=== PATIENT | female | born 1980 | race Caucasian/White ===

== ENCOUNTER 2022-12-20 18:33 | Outpatient (REF) | payer BC, SELFPAY | END 2022-12-20 18:34 | disposition home or self-care (01) | LOC: LBN 18:33 | PROVIDERS: Visit Provider Nurse Practitioner Family | DX: J02.9 Acute pharyngitis, unspecified (principal) | CPT/HCPCS: 87070 ==

== ENCOUNTER 2023-04-15 15:03 | Outpatient (REF) | payer BC, SELFPAY ==
[2023-04-15 16:03] LABS: Anion Gap 11.1 mmol/L (3-11); BUN 15 mg/dL (7-18); CO2 27.9 mmol/L (21.0-32.0); CREATININE 1.3 mg/dL (0.55-1.02); Calcium 9.2 mg/dL (8.5-10.1); Chloride 105 mmol/L (98-107); Estimated GFR 52.65 (mL/min/1.73m2); FREE T4 0.18 ng/dL (0.76-1.46); Glucose 95 mg/dL (74-106); Potassium 4.3 mmol/L (3.5-5.1); Sodium 144 mmol/L (136-145); TSH 67.89 uIU/mL (0.36-3.74)
[2023-04-15 22:21] LABS: T3, Total 50 ng/dL (97-169)
== END 2023-04-15 15:04 | disposition home or self-care (01) ==
LOC: NCHCN 15:03
PROVIDERS: Visit Provider Family Medicine
DX: E03.2 Hypothyroidism due to medicaments and other exogenous substances (principal)
CPT/HCPCS: 80048; 84439; 84443; 84480

== ENCOUNTER 2023-05-18 11:56 | Outpatient (REF) | payer BC, SELFPAY ==
[2023-05-18 15:47] LABS: FREE T4 0.56 ng/dL (0.76-1.46); TSH 14.75 uIU/mL (0.36-3.74)
[2023-05-18 22:16] LABS: T3,Free 3.6 pg/mL (2.8-5.3)
== END 2023-05-18 11:57 | disposition home or self-care (01) ==
LOC: NCHCN 11:56
PROVIDERS: Visit Provider Family Medicine
DX: E03.2 Hypothyroidism due to medicaments and other exogenous substances (principal); E05.00 Thyrotoxicosis with diffuse goiter without thyrotoxic crisis or storm
CPT/HCPCS: 84439; 84443; 84481

== ENCOUNTER 2023-07-06 16:39 | Outpatient (REF) | payer BC, SELFPAY ==
[2023-07-06 22:06] LABS: FREE T4 0.67 ng/dL (0.76-1.46); TSH 4.74 uIU/mL (0.36-3.74)
[2023-07-07 18:14] LABS: T3,Free 3.5 pg/mL (2.8-5.3)
== END 2023-07-06 16:40 | disposition home or self-care (01) ==
LOC: NCHCN 16:39
PROVIDERS: Visit Provider Family Medicine
DX: E03.2 Hypothyroidism due to medicaments and other exogenous substances (principal)
CPT/HCPCS: 84439; 84443; 84481

== ENCOUNTER 2023-08-05 22:13 | Outpatient (REF) | payer BC, SELFPAY ==
[2023-08-05 21:29] LABS: FREE T4 0.95 ng/dL (0.76-1.46); TSH 1.25 uIU/mL (0.36-3.74)
== END 2023-08-05 22:14 | disposition home or self-care (01) ==
LOC: NCHCN 22:13
PROVIDERS: Visit Provider Family Medicine
DX: F90.0 Attention-deficit hyperactivity disorder, predominantly inattentive type (principal); E03.2 Hypothyroidism due to medicaments and other exogenous substances
CPT/HCPCS: 84439; 84443

== ENCOUNTER 2024-01-11 15:52 | Outpatient (REF) | payer BC, SELFPAY ==
[2024-01-11 21:31] LABS: TSH (W/Ref FT4) 0.28 uIU/mL (0.36-3.74)
[2024-01-11 22:02] LABS: FREE T4 0.77 ng/dL (0.76-1.46)
== END 2024-01-11 15:53 | disposition home or self-care (01) ==
LOC: NCHCN 15:52
PROVIDERS: Visit Provider Family Medicine
DX: E03.9 Hypothyroidism, unspecified (principal)
CPT/HCPCS: 84439; 84443

== ENCOUNTER 2024-02-16 16:25 | Outpatient (REF) | payer BC, SELFPAY ==
[2024-02-16 21:52] LABS: FREE T4 0.65 ng/dL (0.76-1.46); TSH 2.44 uIU/Ml (0.36-3.74)
[2024-02-17 18:35] LABS: T3, Total 117 ng/dL (97-169)
== END 2024-02-16 16:26 | disposition home or self-care (01) ==
LOC: NCHCN 16:25
PROVIDERS: Visit Provider Family Medicine
DX: E03.9 Hypothyroidism, unspecified (principal)
CPT/HCPCS: 84439; 84443; 84480

== ENCOUNTER 2024-05-24 15:23 | Outpatient (REF) | payer BC, SELFPAY ==
--- OUTSIDE RECORDS SUMMARY | 2024-05-24 15:27 | XMS_ITS | Encounter Summary ---
Author Organization [facility] Address [address] [place] [address] Care Team Providers Care Ripsaw Operator Name Role Phone Comfort Zelaya NP Primary Care Provider [phone] Encounter Details Date Type Department Care Team (Late st Contact Info) Description 07/07/2023 Lab Requisition [facility] Pathology & Laboratory Medicine - [address] [address] Outr Resulting Lab, Provider Social History Tobacco Use Types Packs/Day Years Used Date Smoking Tobacco: Never Smokeless Tobacco: Never Alcohol Use Standard Drinks/Week Comments No 0 (1 standard drink = 0.6 oz pur e alcohol) PHQ-2 Answer Date Recorded PHQ-2 SUBTOTAL 0 06/25/2020 Interpersonal Safety Answer Date Record ed Physically Hurt Never 06/25/2020 Verbally Threaten Never 06/25/2020 Sex and Gender Information Value Date Recorded Sex Assigned at Not on file Gender Identity Not on file Sexual Orientation Not on file documented as of this encounter Functional Status Functional Status Response Date of Assess ment Because of a physical, menta l, or emotional condition, does this person have difficulty doing errands alone such as visiting a doctor's office or shopping? No 07/31/2018 Cognitive Status Response Date of Assessm ent Because of a physical, menta l, or emotional condition, does this person have serious difficulty concentrating, remembering, or making decisions? No 07/31/2018 documented as of this encounter Plan of Treatment Not on file documented as of this encounter Procedures Procedure Name Priority Date/Time Associated Diagnosis Comments T3 FREE Routine 07/06/2023 15:25 EDT documented in this encounter Results * T3 FREE (07/06/2023 15:25 EDT) T3, Free 3.5 2.8 - 5.3 pg/mL 07/07/2023 18:10 EDT [facility] Blood VENOUS BLOOD / Unknown 07/06/2023 15:25 EDT 07/07/2023 17:36 EDT Provider Outr Resulting Lab CHEMISTRY & BLOOD GAS ORDERABLES [facility] [address] [place] [address] documented in this encounter Visit Diagnoses Not on filedocumented in this encounter Care Teams Ripsaw Operator Relationship Specialty Start Date End Date Comfort Zelaya NP [address] [place] [phone] PCP - General Family Medicine - Primary Care 03/08/22 documented as of this encounter
--- OUTSIDE RECORDS SUMMARY | 2024-05-24 15:27 | XMS_ITS | Encounter Summary ---
Author Organization [facility] Address [address] [place] [address] Care Team Providers Care Second Language Tutor Name Role Phone Leida Cerda PA-C Primary Care Provi melvin Encounter Details Date Type Department Care Team (Late st Contact Info) Description 10/24/[address] [id number] Leida Cerda PA-C 402 [facility] [address] [place] [address] Social History Tobacco Use Types Packs/Day Years Used Date Smoking Tobacco: Never Smokeless Tobacco: Never Alcohol Use Standard Drinks/Week Comments No 0 (1 standard drink = 0.6 oz pur e alcohol) Sex and Gender Information Value Date Recorded [...] Procedure Name Priority Date/Time Associated Diagnosis Comments LIPID PROFILE (INCLUDES CHOLESTEROL, TRIGLYCERIDES, HDL, LDL) Routine 10/19/2019 documented in this encounter Results * LIPID PROFILE (INCLUDES CHOLESTEROL, TRIGLYCERIDES, HDL, LDL) (10/19/2019) Cholesterol, External 196 <200 mg/dL POINT OF CARE [facility] Triglycerides, External 121 <150 mg/dL [facility] HDL, External 39 >50 mg/dL [facility] LDL, External 134 <100 mg/dL [facility] Chol/HDL Ratio, External 5.0 <5.0 [facility] Fasting?, External unknown [facility] Blood VENOUS BLOOD / Unknown 10/19/2019 eDnice Martinez MD CHEMISTRY & BLOOD GA S ORDERABLES POINT [facility] CARE [facility] documented in this encounter Visit Diagnoses Not on filedocumented in this encounter Care Teams Second Language Tutor Relationship Specialty Start Date End Date Leida Cerda PA-C PCP - General 03/16/19 03/07/22 documented as of this encounter
--- OUTSIDE RECORDS SUMMARY | 2024-05-24 15:27 | XMS_ITS | Encounter Summary ---
Author Organization [facility] Address [address] [place] [address] Care Team Providers Care Medical Records Specialist Name Role Phone Leida Cerda PA-C Primary Care Provi melvin Comfort Zelaya NP Primary Care Provider [phone] Reason for Visit * Reason Onset Date Comments Medication Reaction 04/14/2020 Abdominal Pain 04/14/2020 Diarrhea 04/14/2020 Encounter Details Date Type Department Care Team (Late st Contact Info) Description 04/14/[address] [address] Leida Cerda PA-C 402 [facility] [address] [place] [address] Medication Reaction; Abdominal Pain; Diarrhea Social History Tobacco Use Types Packs/Day Years [...] No 07/31/2018 documented as of this encounter Miscellaneous Notes * Telephone Encounter - Barbara Angeles RN - 04/15/2020 0920 EDT 04/15/20 9:20 TC to Doris, no answer. General voice message left to return call with call back number provided. BARBARA ANGELES RN 04/15/2020 9:20 * Telephone Encounter - Frances Christensen - 04/14/2020 1603 EDT Reason for Call: Medication Reaction; Abdominal Pain; and Diarrhea Summary/Symptoms: Patient called to say she was prescribed an antibiotic at an Urgent Care and is having side effects of stomach pain and diarrhea. Onset and Duration? Current Appointment Offered? no Frances Christensen 04/14/2020 16:04 documented in this encounter Plan of Treatment Not on file documented as of this encounter Visit Diagnoses Not on filedocumented in this encounter Care Teams Medical Records Specialist Relationship Specialty Start Date End Date Leida Cerda PA-C PCP - General 03/16/19 03/07/22 Comfort Zelaya NP [address] [place] [phone] PCP - General Family Medicine - Primary Care 03/08/22 documented as of this encounter
--- OUTSIDE RECORDS SUMMARY | 2024-05-24 15:27 | XMS_ITS | Encounter Summary ---
Author Organization [facility] Address [address] [place] [address] Care Team Providers Care Property Master Name Role Phone Leida Cerda PA-C Primary Care Provi melvin Reason for Visit * Reason Onset Date Comments Medications Refill 11/19/2019 Encounter Details Date Type Department Care Team (Late st Contact Info) Description 11/19/[address] [address] Lieda Cerda PA-C 402 [facility] [address] [place] [address] Medications Refill Social History Tobacco Use Types Packs/Day Years [...] No 07/31/2018 documented as of this encounter Ordered Prescriptions Prescription Sig Dispensed Refills Start Date End Da te Thyroid, Pork, 240 mg tabletIndications:Hypothyr oidism, iatrogenic Take 240 mg by mouth daily. 90 Tab 11/20/2019 02/08/2020 documented in this encounter Miscellaneous Notes * Telephone Encounter - Sheila Edmond RN - 11/20/2019 1438 EST TC to patient. Left message to return call. * Telephone Encounter - Leida Cerda PA-C - 11/20/2019 1258 EST Refill done but she is due for lab work. Lab ordered She can go to [facility] for [facility] * Telephone Encounter - Sheila Edmond RN - 11/20/2019 0845 EST Last refill: 08/07/18 Last OV note, 09/05/18: Recently adjusted [place] Thyroid and will re check TSH in another month ortwo I do not see that this was ever rechecked. To PCP to advise on refill, labs, OV * Telephone Encounter - Rima Urbina - 11/19/2019 1802 EST Medication(s) Requested: [place]lap Thyroid - per patient message Preferred Pharmacy: [facility] Is patient out of medication? Yes - per med refill line [facility] [place] Last Refill Date: 2013 Last Visit Date with Ordering Provider: 09/05/18 Next Non-Acute Visit Date Scheduled with Care Team: No. Rima Urbina 11/19/2019 18:02 documented in this encounter Plan of Treatment Not on file documented as of this encounter Results * (ABNORMAL) THYROID CASCADE (06/25/2020 9:58 EDT) TSH <0.02(L) 0.47 - 4.68 uIU/mL 06/25/2020 14:56 EDT [facility] Blood VENOUS BLOOD / Unknown Venipuncture / Unknown 06/25/2020 9:58 EDT 06/25/2020 9:58 EDT Narrative [facility] - 06/25/2020 14:56 EDT NOTE: TSH [place] is not recommended for patients in which pituitary or hypothalamic disorders are suspected. The results of this assay can be falsely lowered due to the consumption of Biotin. Leida Cerda PA-C CHEMISTRY & BLOOD GAS ORDERABLES [facility] [address] [place] [address] documented in this encounter Visit Diagnoses Diagnosis Hypothyroidism, iatrogenic- Primary Other iatrogenic hypothyroidism documented in this encounter Discontinued Medications Medication Sig Discontinue Reason Start Date End Da te Thyroid, Pork, 240 mg tablet Take 240 mg by mouth daily. Reorder 08/07/2018 11/20/2019 documented as of this encounter Care Teams Property Master Relationship Specialty Start Date End Date Leida Cerda PA-C PCP - General 03/16/19 03/07/22 documented as of this encounter
--- OUTSIDE RECORDS SUMMARY | 2024-05-24 15:27 | XMS_ITS | Clinical Summary ---
Author Organization [facility] Address [address] [place] [address] Care Team Providers Care Vice President Risk Management Name Role Phone Comfort Zelaya NP Primary Care Provider [phone] Allergies Active Allergy Reactions Criticality Noted Date Comments Adhesive 05/14/2014 Had bad reaction to Steri-Strips. Not sure of full allergy. Hymenoptera Allergenic Extract 05/21/2013 Massive swelling Penicillins Anaphylaxis High 11/12/2009 Propranolol Shortness Of Breath 08/14/2010 Sulfa (Sulfonamide Antibiotics) Hives 11/12/2009 Medications Medication Sig Dispensed Refills Start Date End Date Status ibuprofen (MOTRIN) 800 mg tablet Take 1 Tablet by mouth every 6 hours as needed for Pain. Active Thyroid, Pork, (ARMOUR THYROID) 180 mg tabletIndications:H ypothyroidism, iatrogenic Take 1 Tablet by mouth daily. 30 Tablet 1 08/27/2022 Active Additional Information Patient taking differently: 90 mgoral DAILY, Reported on 10/28/2023 EPINEPHrine (EPIPEN) 0.3 mg/0.3 mL injectionIndication s:Bee sting Inject 0.3 mL into the muscle once as needed for up to 1 dose (Bee Allergy). 2 Each 5 04/25/2023 Active methylphenidate HCl 36 mg CR tablet Take 54 mg by mouth daily. Daily Max: 54 mg Active norethindrone (MICRONOR) 0.35 mg tablet Take 1 Tablet by mouth daily. 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 Hypothyroidism 02/15/2003 11/14/2009 Asthma 09/23/1994 09/04/2014 Overview: Mild intermittent Immunizations Name Administration Dates Next Due Covid-19 mRNA Vaccine (MODER NA COVID-19) PF 0.5 ml IM (12 yrs+) 10/23/2021 Covid-19 mRNA Vaccine (PFIZE R COVID-19) PF 0.3 ml IM (12 yrs+) 01/06/2021 DT Vaccine <7YO IM 03/14/1995 Influenza (whole) 07/16/2005 Td (Adult) (TDVAX) 2 Lf Vaccine =>7yo IM 020 Tdap Vaccine =>7YO IM 02/13/2010 Surgical History Surgery Date Site/Laterality Comments SECTION ABLATION OF DYSRHYTHMIC FOCUS CARDIAC SURGERY CHOLECYSTECTOMY, LAPAROSCOPIC 04/19/2014 Medical History Medical History Date Comments Meningitis, unspecified 2003 Thyroid disease Hypertension Family history of kidney infection personal hx of kidney infections Asthma 09/23/1994 Mild intermitten t Biliary calculus 06/25/2013 Evidence of cho lelithiasis 06/2013. Cholelithiasis 04/09/2014 Family History Medical History Relation Comments Anesthesia Problems Father High Blood Pressure Father Diabetes Maternal Grandmother Early Maternal Grandmother Heart Disease Maternal Grandmother High Blood Pressure Maternal Grandmother High Cholesterol Maternal Grandmother Kidney Disease Mother stones Thyroid Disease Mother Early Paternal Grandfather Heart Disease Paternal Grandfather Asthma Sister Thyroid Disease Sister Relation Status Comments Father Maternal Grandmother Mother Alive Paternal Grandfather Sister Social History Tobacco Use Types Packs/Day Years Used Date Smoking Tobacco: Never Smokeless Tobacco: Never Tobacco Cessation:Counseling Given: Not Answered Alcohol Use Standard Drinks/Week Comments No 0 (1 standard drink = 0.6 oz pur e alcohol) [facility] Utilities Answer Date Recorded In the past 12 months has th e electric, gas, oil, or water company threatened to shut off services in your home? No 10/28/2023 AUDIT-C Answer Date Recorded Q1: How often do you have a drink containing alc ohol? Never 10/28/2023 Average Number of Drinks Not on file 024 Frequency of Binge Drinking Not on file 10/10 Overall Financial Resource Strain (CARDIA) Answe r Date Recorded How hard is it for you to pa y for the very basics like food, housing, medical care, and heating? Not hard at all 10/28/2023 PHQ-2 Answer Date Recorded PHQ-2 SUBTOTAL 0 06/25/2020 Hunger Vital Sign Answer Date Recorded Within the past 12 months, y ou worried that your food would run out before you got the money to buy more. Never true 10/28/19 24 Within the past 12 months, t he food you bought just didn't last and you didn't have money to get more. Never true 10/28/2023 PRAPARE - Transportation Answer Date Re corded In the past 12 months, has l ack of transportation kept you from medical appointments or from getting medications? No 10/10 In the past 12 months, has l ack of transportation kept you from meetings, work, or from getting things needed for daily living? No 10/28/2023 Housing Stability Vital Sign Answer Shaka e Recorded In the last 12 months, was t here a time when you were not able to pay the mortgage or rent on time? No 10/28/2023 Number of Places Lived in the Last Year Not on f ile 10/28/2023 In the last 12 months, was t here a time when you did not have a steady place to sleep or slept in a care home (including now)? No 10/28/2023 Interpersonal Safety Answer Date Record ed Physically Hurt Never 06/25/2020 Verbally Threaten Never 06/25/2020 Sex and Gender Information Value Date Recorded Sex Assigned at Not on file Gender Identity Not on file Sexual Orientation Not on file Obstetrics History Para Term AB IAB SAB Ectopic Multiple Livin g Live Births 1 1 Date Outcome GA Total Labor Labor/2nd/3rd Weight Sex Type Anes PTL [place] A1 A5 Name Clin Para Last Filed Vital Signs Vital Sign Reading Time Taken Comments Blood Pressure 140/90 10/28/2023 1338 EST Pulse 68 06/25/2020 0923 EDT Temperature 36.4 ??C (97.5 ??F) 06/25/2020 0923 EDT Respiratory Rate 16 06/25/2020 0923 EDT Oxygen Saturation 99% 02/17/2015 1922 EDT Inhaled Oxygen Concentration - - Weight 73.7 kg (162 lb 6.4 oz) 10/28/[address] Height 164.6 cm (5' 4.8) 10/28/2023 1338 EST Body Mass Index 27.19 10/28/2023 1338 EST Plan of Treatment Health Maintenance Due Date Last Done Comments Hepatitis C Screen 1981 HIV Screening 1997 Advance Directive 1999 Hepatitis B Vaccine (1 of 3 - 19+ 3-dose series) 02/06/2000 Depression Screening 06/25/2021 06/25/2020 COVID-19 Vaccine (3 - 2022-2 4 season) 2023 10/23/2021, 01/06/2021 Breast Cancer Screening 08/17/2024 08/17/2022 Lipid Profile Screening (Cholesterol) 10/19/2024 10/19/2019 Social Determinants Of Healt h (SDOH) 10/28/2024 10/28/2023, 06/25/2020 Preventive Care Visit 10/28/2025 10/28/2023 , 08/27/2022 Pap Smear (Cervical Cancer Screening) 10/28/2026 10/28/2023, 10/19/2019 Cervical Cancer Screening 10/28/2028 HPV/Cotest (Cervical Cancer Screening) 10/28/2028 10/28/2023, 10/28/2023 Tetanus (Adult) Immunization 06/25/2030, 02/13/2010, 03/14/1995 Pertussis (Adult) Immunization Completed 02/13/2010 HPV Vaccines Aged Out No longer eligi ble based on patient's age to complete this topic Procedures Procedure Name Priority Date/Time Associated Diagnosis Comments PAP TEST Routine 10/28/2023 14:05 EST Well woman exam with routine gynecological exam MA BREAST DIAGNOSTIC ARIANNA BILATERAL Routine 08/17/2022 14:17 EST Mass of left breast, unspecified quadrant LIPID PROFILE (INCLUDES CHOLESTEROL, TRIGLYCERIDES, HDL, LDL) Routine 10/19/2019 from Last 3 Months or Most Recently Relevant to Health Maintenance Results * PAP TEST (10/28/2023 14:05 EST) Specimens A. Cervix and/or Endocervix , ThinPrep Imaging System with Manual Evaluation 11/14/2023 19:11 [facility] Specimen Adequacy Satisfactory for Evaluation - transformation zone component present 11/14/2023 19:11 [facility] General Categorization Negative for intraepithelial lesion or malignancy 11/14/2023 19:11 [facility] Attestation . 11/14/2023 19:11 [facility] at 1911 Clinical History Screening 11/14/19 24 19:11 [facility] HPV The result for the Human Papillomavirus (HPV) Detection-High Risk Types is Negative. No E6 or E7 mRNA is detected from HPV types 16,18,31,33,35,39 ,45,51,52,56,58,5 9,66, and 68 by treatment supervisor mediated amplification.Misty ting was performed on specimen [id number] and was resulted on 11/14/2023 191 EST by LUAN, LAB INSTRUMENT RESULTS IN 11/14/2023 19:11 [facility] Performing Lab [facility] 11/14/2023 19:11 [facility] Scanned Images 11/14/2023 19:11 [facility] Pap Test CERVIX UTERI STRUCTURE / Unknown 10/28/2023 14:05 EST 10/31/2023 12:13 EST Denice Martinez MD PATHOLOGY ORDERABLES [facility] [address] [place] [address] * MA BREAST DIAGNOSTIC ARIANNA BILATERAL (08/17/2022 14:17 EST) Anatomical Region Laterality Modality Breast Bilateral Mammography 08/17/2022 15:4 0 EST Impressions 08/17/2022 15:40 EST RIGHT BREAST: BI-RADS 1: Negative IMPRESSION LEFT BREAST: BI-RADS 1: Negative RECOMMENDATIONS: 1. ??Routine screening mammogram. Further management of any persistent palpable finding should be based on the clinical level of concern. Negative imaging findings should not preclude biopsy of any clinically suspicious palpable finding. The procurement director discussed the radiologist's interpretation and follow up recommendations with the patient at the time of the examination. OVERALL BI-RADS ASSESSMENT: BI-RADS 1: Negative Narrative 08/17/2022 15:40 EST MA BREAST DIAGNOSTIC ARIANNA BILATERAL, US BREAST LIMITED LEFT ??08/17/2022 2:00 PM Signs and Symptoms/Comments: Patient reported Lump in left breast. Baseline Comparison: None. Technique: Routine mammography with tomosynthesis and CAD. Sonography was performed as described below. Findings: Tissue Density: There are scattered areas of fibroglandular density. RIGHT BREAST MAMMOGRAM: No significant masses, calcifications or other abnormalities are seen. LEFT BREAST MAMMOGRAM: No significant masses, calcifications or other abnormalities are seen. LEFT BREAST ULTRASOUND: Targeted evaluation was performed in the area of palpable abnormality described by the patient at 2:00, 8 cm from the nipple. In addition, the 12:00, 1:00 and 3:00 axes were scanned. No solid or cystic mass is seen. Denice Martinez MD IMG MAMMOGRAPHY ARONThi LAL * LIPID PROFILE (INCLUDES CHOLESTEROL, TRIGLYCERIDES, HDL, [...] [facility] Blood VENOUS BLOOD / Unknown 10/19/2019 Denice Martinez MD CHEMISTRY & BLOOD GA S ORDERABLES POINT OF CARE [facility] from Last 3 Months or Most Recently Relevant to Health Maintenance Advance Directives For more information, please contact: [phone] * Full Code (Latest Code Status on File) Date Activated Date Inactivated Comments 04/19/2014 9:24 04/19/2014 18:04 Care Teams Vice President Risk Management Relationship Specialty Start Date End Date Comfort Zelaya NP [address] [place] [phone] PCP - General Family Medicine - Primary Care 03/08/22
--- OUTSIDE RECORDS SUMMARY | 2024-05-24 15:27 | XMS_ITS | Encounter Summary ---
Author Organization [facility] Address [address] [place] [address] Care Team Providers Care Budget Controller Name Role Phone Comfort Zelaya NP Primary Care Provider [phone] Reason for Visit * Reason Onset Date Comments Appointment Related 07/28/2022 Encounter Details Date Type Department Care Team (Late st Contact Info) Description 07/28/2022 [facility] Breast Imaging Mammography - [address] [address] Mitzi Prado Appointment Related Social History Tobacco Use Types Packs/Day Years [...] encounter Miscellaneous Notes * Telephone Encounter - Mitzi Prado - 07/28/2022 1807 EDT Left patient a message to call back breast imaging at [phone] documented in this encounter Plan of Treatment Not on file documented as of this encounter Visit Diagnoses Not on filedocumented in this encounter Care Teams Budget Controller Relationship Specialty Start Date End Date Comfort Zelaya NP [address] [place] [phone] PCP - General Family Medicine - Primary Care 03/08/22 documented as of this encounter
--- OUTSIDE RECORDS SUMMARY | 2024-05-24 15:27 | XMS_ITS | Encounter Summary ---
Author Organization [facility] Address [address] [place] [address] Care Team Providers Care Special Forces Weapons Sergeant Name Role Phone Leida Man PA-C Primary Care Provi melvin Comfort Zelaya NP Primary Care Provider [phone] Reason for Visit * Reason Onset Date Comments Medications Refill 06/05/2020 Encounter Details Date Type Department Care Team (Late st Contact Info) Description 06/05/[address] [phone] Leida Man PA-C 402 [facility] [address] [place], [place] [phone] Medications Refill Social History Tobacco Use Types Packs/Day Years Used Date Smoking Tobacco: Never Smokeless Tobacco: Never Alcohol Use Standard Drinks/Week Comments No 0 (1 standard drink = 0.6 oz pur e alcohol) Interpersonal Safety Answer Date Record ed Physically Hurt Never 05/11/2020 Verbally Threaten Not on file 05/11/2020 Sex and Gender Information Value Date Recorded [...] iatrogenic Take 240 mg by mouth daily. NEEDS BLOOD WORK 30 Tab 06/05/2020 06/30/2020 documented in this encounter Miscellaneous Notes * Telephone Encounter - Denise Rae - 06/06/2020 1434 EDT Left message for patient to call back and schedule an appointment. Please see previous message. * Telephone Encounter - Alexandrea Dwyer RN - 06/05/2020 1449 EDT Requested Prescriptions Signed Prescriptions Disp Refills ??? Thyroid, Pork, 240 mg tablet 30 Tab 0 Sig: Take 240 mg by mouth daily. NEEDS BLOOD WORK Authorizing Provider: LEIDA MAN Ordering User: ALEXANDREA DWYER Pt is overdue for TSH blood draw, please help her arrange. * Telephone Encounter - Frances Christensen - 06/05/2020 1430 EDT Medication(s) Requested: Thyroid,Pork,240 mg tablet Preferred Pharmacy: [facility] Is patient out of medication?yes Last Refill Date: 02.08.20 Last Visit Date with Ordering Provider: 08.21.18 Next Non-Acute Visit Date Scheduled with Care Team: 06.25.20 Frances Christensen 06/05/2020 14:34 documented in this encounter Plan of Treatment Not on file documented as of this encounter Visit Diagnoses Diagnosis Hypothyroidism, iatrogenic Other iatrogenic hypothyroidism documented in this encounter Discontinued Medications Medication Sig Discontinue Reason Start Date End Da te Thyroid, Pork, 240 mg tabletIndications:Hypothy roidism, iatrogenic Take 240 mg by mouth daily. Reorder 02/08/2020 06/05/2020 documented as of this encounter Care Teams [employer] Weapons Sergeant Relationship Specialty Start Date End Date Leida Man PA-C PCP - General 03/16/19 03/07/22 Comfort Zelaya NP [address] [place] [phone] PCP - General Family Medicine - Primary Care 03/08/22 documented as of this encounter
--- OUTSIDE RECORDS SUMMARY | 2024-05-24 15:27 | XMS_ITS | Encounter Summary ---
Author Organization [facility] Address [address] [place] [address] Care Team Providers Care Entry Level Assistant Manager Name Role Phone Comfort Zelaya NP Primary Care Provider [phone] Reason for Visit * Reason Onset Date Comments Medication Management 04/26/2023 Encounter Details Date Type Department Care Team (Late st Contact Info) Description 04/26/2023 Telephone [facility] Women's Services - [address] [address] Denice Martinez MD [address] [place] [address], [address] [place] [address] Medication Management Social History Tobacco Use Types Packs/Day Years [...] Dispensed Refills Start Date End Da te norethindrone (MICRONOR) 0.35 mg tablet Take 1 Tablet by mouth daily. 84 Tablet 1 04/26/2023 10/18/2023 documented in this encounter Miscellaneous Notes * Telephone Encounter - Cristy Engle RN - 04/26/2023 2103 EDT TC to patient to notify, she verbalizes understanding and will call in a few months to schedule annual visit. * Telephone Encounter - Cristy Engle RN - 04/26/2023 9900 EDT Medication Refill Request Patient/Fax/Surescript Request Medication/Dose/Route/Frequency: norethondrone (MICRONOR) 0.35 mg, prefers 3 mo supply at a time, takes continuously Last office visit: 08/17/22 Pending visit: None. Patient is not yet due. If appointment needed-message left/appointment made: N/A Pharmacy confirmed: [id number] [facility] Amount filled/# of refills: 2 per MD orders, to last until patient is due for appointment. * Telephone Encounter - Eliza Mendoza - 04/26/2023 8431 EDT Reason for call as described by patient: Pt needs refill of medication. Somehow, pharmacy said theyasked for both epipen and control. She does not need an epipen as she just got one from her PCP, but does still need refill for OCPs. Medication(s) Requested: norethondrone (MICRONOR) 0.35 mg, prefers 3 mo supply at a time, takes continuously. Preferred Pharmacy: [id number] [facility] Is patient out of medication? Yes Is it ok to leave a detailed message? Yes Eliza Mendoza 04/26/2023 14:44 documented in this encounter Plan of Treatment Not on file documented as of this encounter Visit Diagnoses Not on filedocumented in this encounter Discontinued Medications Medication Sig Discontinue Reason Start Date End Da te norethindrone (MICRONOR) 0.35 mg tablet Take 1 Tablet by mouth daily. Reorder 08/27/2022 04/26/2023 documented as of this encounter Care Teams Entry Level Assistant Manager Relationship Specialty Start Date End Date Comfort Zelaya NP [address] [place] [phone] PCP - General Family Medicine - Primary Care 03/08/22 documented as of this encounter
--- OUTSIDE RECORDS SUMMARY | 2024-05-24 15:27 | XMS_ITS | Encounter Summary ---
Author Organization [facility] Address [address] [place] [address] Care Team Providers Care Master Pilot Name Role Phone Comfort Zelaya NP Primary Care Provider [phone] Reason for Visit * Reason Onset Date Comments Appointment Related 07/30/2022 Encounter Details Date Type Department Care Team (Late st Contact Info) Description 07/30/2022 [facility] Breast Imaging Mammography - [address] [address] Alisa Robb Appointment Related Social History Tobacco Use Types [...] encounter Miscellaneous Notes * Telephone Encounter - Alisa Robb - 07/30/2022 1351 EDT Left patient a message to call back breast imaging at [phone]. documented in this encounter Plan of Treatment Not on file documented as of this encounter Visit Diagnoses Not on filedocumented in this encounter Care Teams Master Pilot Relationship Specialty Start Date End Date Comfort Zelaya NP [address] [place] [phone] PCP - General Family Medicine - Primary Care 03/08/22 documented as of this encounter
--- OUTSIDE RECORDS SUMMARY | 2024-05-24 15:27 | XMS_ITS | Encounter Summary ---
Author Organization [facility] Address [address] [place] [address] Care Team Providers Care Visual Designer Name Role Phone Comfort Zelaya NP Primary Care Provider [phone] Encounter Details Date Type Department Care Team (Late st Contact Info) Description 04/15/2023 Lab Requisition [facility] Pathology & Laboratory Medicine - [address] [address] Outr Resulting Lab, Provider Social History Tobacco [...] Procedure Name Priority Date/Time Associated Diagnosis Comments T3, TOTAL Routine 04/15/2023 8:55 EDT documented in this encounter Results * (ABNORMAL) T3, TOTAL (04/15/2023 8:55 EDT) T3, Total 50(L) 97 - 169 ng/dL 04/15/2023 22:16 EDT [facility] Blood VENOUS BLOOD / Unknown 04/15/2023 8:55 EDT 04/15/2023 21:31 EDT Provider Outr Resulting Lab CHEMISTRY & BLOOD GAS ORDERABLES [facility] [address] [place] [address] documented in this encounter Visit Diagnoses Not on filedocumented in this encounter Care Teams Visual Designer Relationship Specialty Start Date End Date Comfort Zelaya NP [address] [place] [phone] PCP - General Family Medicine - Primary Care 03/08/22 documented as of this encounter
--- OUTSIDE RECORDS SUMMARY | 2024-05-24 15:27 | XMS_ITS | Encounter Summary ---
Author Organization [facility] Address [address] [place] [address] Care Team Providers Care Horseback Excavator Name Role Phone Leida Cerda PA-C Primary Care Provi melvin Reason for Visit * Reason Onset Date Comments Joint Swelling 04/11/2020 Encounter Details Date Type Department Care Team (Late st Contact Info) Description 04/11/[address] [address] Imani Owens MD [address] [place] [phone] Joint Swelling Social History Tobacco Use Types Packs/Day Years [...] encounter Miscellaneous Notes * Telephone Encounter - Imani Owens MD - 04/11/2020 4009 EDT Patient bit by a fly earlier today - entire hand is red and swollen, painful and hot. Took benadryland it has continued to only get worse. She marked the area of swelling and it has continued to track up her arm. Advised that she have this evaluated today - patient states there is Urgent Care nearby that she will go to. Imani Owens MD Family Medicine PGY-3 PG #[id number] documented in this encounter Plan of Treatment Not on file documented as of this encounter Visit Diagnoses Not on filedocumented in this encounter Care Teams Horseback Excavator Relationship Specialty Start Date End Date Leida Cerda PA-C PCP - General 03/16/19 03/07/22 documented as of this encounter
--- OUTSIDE RECORDS SUMMARY | 2024-05-24 15:27 | XMS_ITS | Encounter Summary ---
Author Organization [facility] Address [address] [place] [address] Care Team Providers Care Data Operations Manager Name Role Phone Shannan Vieyra MD Primary Care Provider Unavail able Reason for Visit * Reason Comments Follow-up here for follow up; due for labs Encounter Details Date Type Department Care Team (Late st Contact Info) Description 07/31/2018 9:30 EDT Office Visit [place] [phone] Leida Cedra PA-C [address] [phone] Hypothyroidism, iatrogenic (Primary Dx); Essential hypertension Discharge Disposition: Auto Discharge Social History Tobacco Use Types Packs/Day Years Used Date Smoking Tobacco: Never Smokeless Tobacco: Never Alcohol Use Standard Drinks/Week Comments No 0 (1 standard drink = 0.6 oz pur e alcohol) Sex and Gender Information Value Date Recorded Sex Assigned at Not on file Gender Identity Not on file Sexual Orientation Not on file documented as of this encounter Last Filed Vital Signs Vital Sign Reading Time Taken Comments Blood Pressure 130/98 07/31/2018 0946 EDT Pulse 64 07/31/2018 0946 EDT Temperature - - Respiratory Rate - - Oxygen Saturation - - Inhaled Oxygen Concentration - - Weight - - Height - - Body Mass Index - - documented in this encounter Functional Status Functional Status Response [...] No 07/31/2018 documented as of this encounter Discharge Diagnoses Diagnosis I10 Essential (primary) hypertension-I10[ICD-10-CM] 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 female. Chief Complaint Patient presents with ??? Follow-up here for follow up; due for labs HPI F/u on thyroid. Continues armour thyroid daily. Tolerates it much better than synthroid. Due for labs. No f/u lab done after last dose adjustment. Feels well. Hx of HTN but off meds for now. Doesn't want more medicine. Exercises regularly. Weight is stable. Eats clean. Non smoker. Is using cold medicines right now for a URI. Recalls having a scarred, smaller right kidney and was told it functions at about 30 %. Had a priorpyelo and isn't sure if the kidney change was a result of the infection or if the kidney change made her prone to the infection. No recent UTI. Patient Active Problem List Diagnosis ??? Contraceptive management ??? Cervical dysplasia ??? Blindness ??? Acute pyelonephritis ??? Graves' disease ??? Hypertensive disorder ??? Hypothyroidism, iatrogenic ??? Kidney scarring Past Medical History: Diagnosis Date ??? Asthma 09/23/1994 Mild intermittent ??? Biliary calculus 06/25/2013 Evidence of cholelithiasis 06/2013. ??? Cholelithiasis 04/09/2014 ??? Family history of kidney infection personal hx of kidney infections ??? Hypertension ??? Meningitis, unspecified 2003 ??? Thyroid disease Current Outpatient Prescriptions on File Prior to Visit Medication Sig Dispense Refill ??? ibuprofen (MOTRIN) 800 mg tablet Take 800 mg by mouth every 6 hours as needed for Pain ??? levonorgestrel-ethinyl estradiol (SEASONALE) 0.15-30 mg-mcg per tablet Take 1 Tab by mouth daily. ??? Thyroid, Pork, (ARMOUR THYROID) 180 mg tablet Take 180 mg by mouth daily. 90 Tab 0 No current facility-administered medications on file prior to visit. Allergies Allergen Reactions ??? Penicillins Anaphylaxis ??? Adhesive Had bad reaction to Steri-Strips. Not sure of full allergy. ??? Bee Sting [Hymenoptera Allergenic Extract] Massive swelling ??? Propranolol Shortness Of Breath ??? Sulfa (Sulfonamide Antibiotics) Hives Social Social History Substance Use Topics ??? Smoking status: Never Smoker ??? Smokeless tobacco: Never Used ??? Alcohol use No Review of Systems Respiratory: Negative for shortness of breath. Cardiovascular: Negative for chest pain, palpitations and leg swelling. Neurological: Negative for dizziness and headaches. - See HPI Objective: BP (!) 130/98 (BP Cuff Location: Right arm, Patient Position: Sitting, BP Cuff Sizes: Adult, regular) Pulse 64 Re check BP 150/100 Physical Exam Constitutional: She is oriented to person, place, and time. She appears well- developed and well-nourished. No distress. Cardiovascular: Normal rate, regular rhythm and normal heart sounds. Pulmonary/Chest: Effort normal and breath sounds normal. Musculoskeletal: She exhibits no edema. Neurological: She is alert and oriented to person, place, and time. Skin: Skin is warm and dry. Psychiatric: She has a normal mood and affect. Her behavior is normal. Nursing note and vitals reviewed. Discussed BP and need to protect her healthy kidney with good BP control She prefers to hold on medicine for now, declines nephrology referral Assessment: Encounter Diagnoses Name Primary? Essential hypertension ??? Hypothyroidism, iatrogenic Yes Plan: Doris was seen today for follow-up. Diagnoses and all orders for this visit: Hypothyroidism, iatrogenic - Thyroid Welcome Continue armour thyroid Essential hypertension - Basic Metabolic Panel Re check in 4 weeks May be elevated some due to decongestant use for URI, however on chart review, BP was elevated lastvisit (2 yr ago) Discussed healthy lifestyle Get some home/pharmacy readings if possible Patient Education Topic: as above Method: Verbal Taught to: Patient Barriers: None Outcomes: verbalized understanding Signature:DT * Renetta Davis - 07/31/2018 0930 EDT Patient presents to office for venipuncture for Thyroid Welcome, BMP with a diagnosis of E03.2, I10per Leida ARAUJO. I was supervised by Leida ARAUJO who was present and immediately available in the office suite. Renetta Davis 07/31/2018 10:24 documented in this encounter Plan of Treatment Not on file documented as of this encounter Procedures Procedure Name Priority Date/Time Associated Diagnosis Comments THYROID CASCADE Routine 07/31/2018 10:18 EDT Hypothyroidism, iatrogenic BASIC METABOLIC PANEL (BMP) Routine 07/31/2018 10:18 EDT Essential hypertension documented in this encounter Results * BASIC METABOLIC PANEL (BMP) (07/31/2018 10:18 EDT) Sodium 140 136 - 145 mEq/L 07/31/2018 14:23 [facility] Potassium 4.8 3.5 - 5.0 mEq/L 07/31/2018 14:23 [facility] Chloride 107 96 - 110 mEq/L 07/31/2018 14:23 [facility] CO2 25 22 - 32 mEq/L 07/31/2018 14:23 [facility] BUN 15 10 - 26 mg/dl 07/31/2018 14:23 [facility] Creatinine 0.87 0.52 - 1.04 mg/dl 07/31/2018 14:23 [facility] GFR, Calculated 85 >60 ml/min/1.7 3m2 07/31/2018 14:23 [facility] Comment: eGFR calculated using CKD-EPI equation for non Americans. Multiply eGFR by 1.16 for Americans. Calcium 9.6 8.5 - 10.5 mg/dl 07/31/2018 14:23 [facility] Calculated Calcium 9.3 8.5 - 10.5 mg/dl 07/31/2018 14:23 EDT [facility] Glucose, Serum 93 70 - 100 mg/dl 07/31/2018 14:23 EDT [facility] Fasting? Unknown 07/31/2018 14:23 EDT [facility] Blood specimen (specimen) BLOOD SPECIMEN / Unknown 07/31/2018 10:18 EDT 07/31/2018 14:05 EDT Leida Cerda PA-C CHEMISTRY & BLOOD GAS ORDERABLES Performing Organization Address [facility] Co de Phone Number [facility] [address] [place] [address] * (ABNORMAL) THYROID CASCADE (07/31/2018 10:18 EDT) TSH 5.07(H) 0.47 - 4.68 uIU/ml 07/31/2018 14:59 EDT [facility] Comment: TSH cascade is not recommended for patients in which pituitary or hypothalamic disorders are suspected. The results of this assay can be falsely lowered due to the consumption of Biotin. Blood specimen (specimen) BLOOD SPECIMEN / Unknown 07/31/2018 10:18 EDT 07/31/2018 14:05 EDT Leida Cerda PA-C CHEMISTRY & BLOOD GAS ORDERABLES Performing Organization Address [facility] Co de Phone Number [facility] [address] [place] [address] documented in this encounter Visit Diagnoses Diagnosis Hypothyroidism, iatrogenic- Primary Other iatrogenic hypothyroidism Essential hypertension Unspecified essential hypertension documented in this encounter Discontinued Medications Medication Sig Discontinue Reason Start Date End Da te azithromycin (ZITHROMAX) 250 mg tabletIndications:Acute suppurative otitis media of right ear without spontaneous rupture of tympanic membrane, recurrence not specified Take two tablets today, then 1 tablet daily until gone (x 4 days) 08/24/2016 07/31/2018 documented as of this encounter Care Teams Data Operations Manager Relationship Specialty Start Date End Date Shannan Vieyra MD PCP - General 04/08/09 03/15/19 documented as of this encounter
--- OUTSIDE RECORDS SUMMARY | 2024-05-24 15:27 | XMS_ITS | Encounter Summary ---
Author Organization [facility] Address [address] [place] [address] Care Team Providers Care Shirt Hemmer Name Role Phone Comfort Zelaya NP Primary Care Provider [phone] Encounter Details Date Type Department Care Team (Late st Contact Info) Description 04/25/2022 9:45 EDT Phlebotomy Only [facility] 2 Phlebotomy [address] [place], [place] [phone] Wire Weaver Cloth, Acc Phlebotomy Hypothyroidism, iatrogenic Social History Tobacco Use Types Packs/Day Years [...] Date/Time Associated Diagnosis Comments THYROID CASCADE Routine 04/25/2022 9:49 EDT Hypothyroidism, iatrogenic T3, TOTAL Today 04/25/2022 9:49 EDT Hypothyroidism, iatrogenic T4 FREE Today 04/25/2022 9:49 EDT Hypothyroidism, iatrogenic documented in this encounter Results * (ABNORMAL) T3, TOTAL (04/25/2022 9:49 EDT) T3, Total 218(H) 97 - 169 ng/dL 04/25/2022 12:[address] [facility] Blood VENOUS BLOOD / Unknown Venipuncture / Unknown 04/25/2022 9:49 EDT 04/25/2022 9:51 EDT Comfort Zelaya NP CHEMISTRY & BLOOD GA S ORDERABLES Performing Organization Address [facility] Co de Phone Number [facility] [address] [place] [address] * T4 FREE (04/25/2022 9:49 EDT) T4, Free 1.8 0.8 - 2.2 ng/dL 04/25/2022 11:[address] [facility] Blood VENOUS BLOOD / Unknown Venipuncture / Unknown 04/25/2022 9:49 EDT 04/25/2022 9:51 EDT Comfort Zelaya NP CHEMISTRY & BLOOD GA S ORDERABLES Performing Organization Address City/[facility] Co de Phone Number [facility] [address] [place] [address] * (ABNORMAL) THYROID CASCADE (04/25/2022 9:49 EDT) TSH <0.02(L) 0.47 - 4.68 mIU/L 04/25/2022 10:[address] [facility] Blood VENOUS BLOOD / Unknown Venipuncture / Unknown 04/25/2022 9:49 EDT 04/25/2022 9:51 EDT Narrative [facility] - 04/25/2022 10:46 EDT NOTE: The results of this assay can be falsely lowered due to the consumption of Biotin. Comfort Zelaya NP CHEMISTRY & BLOOD GA S ORDERABLES [facility] [address] [place] [address] documented in this encounter Visit Diagnoses Diagnosis Hypothyroidism, iatrogenic Other iatrogenic hypothyroidism documented in this encounter Care Teams Shirt Hemmer Relationship Specialty Start Date End Date Comfort Zelaya NP [address] [place] [phone] PCP - General Family Medicine - Primary Care 03/08/22 documented as of this encounter
--- OUTSIDE RECORDS SUMMARY | 2024-05-24 15:27 | XMS_ITS | Encounter Summary ---
Author Organization [facility] Address [address] [place] [address] Care Team Providers Care Airport Utility Worker Name Role Phone Leida Cerda PA-C Primary Care Provi melvin Reason for Visit * Reason Onset Date Comments Medications Refill 02/08/2020 Encounter Details Date Type Department Care Team (Late st Contact Info) Description 02/08/[address] [phone] Leida Cerda PA-C 402 [facility] [address] [place] [address] Medications Refill Social History Tobacco [...] 240 mg by mouth daily. 90 Tab 02/08/2020 06/05/2020 documented in this encounter Miscellaneous Notes * Telephone Encounter - Leida Cerda PA-C - 02/08/2020 1559 EDT Will refill med for now Plan to get TSH in 2-3 mo when things calm down with the pandemic * Telephone Encounter - Veronica Han RN - 02/08/2020 1447 EDT Medication(s) Requested: Thyroid, pork Preferred Pharmacy: [facility] Is patient out of medication? Unknown Last Refill Date: 11/20/19 Last Visit Date with Ordering Provider: 09/05/18 Next Non-Acute Visit Date Scheduled with Care Team: Please Schedule an Appointment. VERONICA HAN RN 02/08/2020 14:47 * Telephone Encounter - Veronica Han RN - 02/08/2020 1446 EDTFrom: Doris Kerr Sent: 02/08/2020 14:40 EDT Subject: Medication Renewal Request Doris Kerr would like a refill of the following medications: Thyroid, Pork, 240 mg tablet [Leida Cerda PA-C] Patient Comment: I know I am due for labs, but I do not feel comfortable going in for them during the current situation Preferred pharmacy: [id number] - [facility], [place] - [address] [facility] documented in this encounter Plan of Treatment Not on file documented as of this encounter Visit Diagnoses Diagnosis Hypothyroidism, iatrogenic- Primary Other iatrogenic hypothyroidism documented in this encounter Discontinued Medications Medication Sig Discontinue Reason Start Date End Da te Thyroid, Pork, 240 mg tabletIndications:Hypothy roidism, iatrogenic Take 240 mg by mouth daily. Reorder 11/20/2019 02/08/2020 documented as of this encounter Care Teams Airport Utility Worker Relationship Specialty Start Date End Date Leida Cerda PA-C PCP - General 03/16/19 03/07/22 documented as of this encounter
--- OUTSIDE RECORDS SUMMARY | 2024-05-24 15:27 | XMS_ITS | Encounter Summary ---
Author Organization [facility] Address [address] [place] [address] Care Team Providers Care Newspaper Vendor Name Role Phone Comfort Zelaya NP Primary Care Provider [phone] Encounter Details Date Type Department Care Team (Late st Contact Info) Description 02/17/2024 Lab Requisition [facility] Medicine - [address] [address] Outr Resulting Lab, Provider Social History Tobacco Use Types Packs/Day Years Used Date Smoking Tobacco: Never Smokeless Tobacco: Never Alcohol Use Standard Drinks/Week Comments No 0 (1 standard drink = 0.6 oz pur e alcohol) [facility] Utilities Answer Date Recorded In the past 12 months has e electric, gas, oil, or water company [...] place to sleep or slept in a senior care (including now)? No 10/28/2023 Interpersonal Safety Answer [...] Date/Time Associated Diagnosis Comments T3, TOTAL Routine 02/16/2024 16:00 EDT documented in this encounter Results * T3, TOTAL (02/16/2024 16:00 EDT) T3, Total 117 97 - 169 ng/dL 02/17/2024 18:[address] [facility] Blood VENOUS BLOOD / Unknown 02/16/2024 16:00 EDT 02/17/2024 17:42 EDT Provider Outr Resulting Lab CHEMISTRY & BLOOD GAS ORDERABLES [facility] [address] [place] [address] documented in this encounter Visit Diagnoses Not on filedocumented in this encounter Care Teams Newspaper Vendor Relationship Specialty Start Date End Date Comfort Zelaya NP [address] [place] [phone] PCP - General Family Medicine - Primary Care 03/08/22 documented as of this encounter
--- OUTSIDE RECORDS SUMMARY | 2024-05-24 15:27 | XMS_ITS | Encounter Summary ---
Author Organization [facility] Address [address] [place] [address] Care Team Providers Care Delphi Developer Name Role Phone Comfort Zelaya NP Primary Care Provider [phone] Reason for Visit * Reason Comments Well Woman Exam Encounter Details Date Type Department Care Team (Late st Contact Info) Description 08/27/2022 15:[address] [facility] - [address] [address] Denice Martinez MD [address] [place] [address], [address] [place] [address] History of Graves' disease (Primary Dx); Hypothyroidism, iatrogenic Social History Tobacco Use Types [...] Sign Reading Time Taken Comments Blood Pressure 135/92 08/27/2022 1552 EST Pulse - - Temperature - - Respiratory Rate - - Oxygen Saturation - - Inhaled Oxygen Concentration - - Weight 81.2 kg (179 lb) 08/27/2022 1519 EST Height 161.3 cm (5' 3.5) 08/27/2022 1519 EST Body Mass Index 31.21 08/27/2022 1519 EST documented in this encounter Functional Status Functional [...] Start Date End Da te Thyroid, Pork, (ARMOUR THYROID) 180 mg tabletIndications:Hypothy roidism, iatrogenic Take 1 Tablet by mouth daily. 30 Tablet 1 08/27/2022 norethindrone (MICRONOR) 0.35 mg tablet Take 1 Tablet by mouth daily. 84 Tablet 1 08/27/2022 04/26/2023 documented in this encounter Progress Notes * Denice Martinez MD - 08/27/2022 1530 EST CC: Annual exam HPI: 42 y.o. woman presents for routine annual exam. Patient reports out of thyroid medication, Tio is on maternity leave. No LMP recorded. (Menstrual status: Amenorhea). Single Using OCP, minipill for contraception. ROS: ROS Denies bowel or bladder sx. No CP/SOB/leg pain. No abdominal pain, N/V/D/C. No hair loss, or heat/cold intolerance. No musculoskeletal pain. No mood changes. No breast pain or tenderness. Health Maintenance: Reports balanced diet, taking vitamins. Performs regular self-breast exams. Exercise: Yes Caffeine: 1 serving Seat belts: Always Colonoscopy: NA Mammogram: UTD Cholesterol: UTD Immunizations: UTD Past Medical History: Diagnosis Date ??? Asthma 09/23/1994 Mild intermittent ??? Biliary calculus 06/25/2013 Evidence of cholelithiasis 06/2013. ??? Cholelithiasis 04/09/2014 ??? Family history of kidney infection personal hx of kidney infections ??? Hypertension ??? Meningitis, unspecified 2003 ??? Thyroid disease Past Surgical History: Procedure Laterality Date ??? ABLATION OF DYSRHYTHMIC FOCUS ??? CARDIAC SURGERY ??? SECTION ??? CHOLECYSTECTOMY, LAPAROSCOPIC 04/19/2014 Current Outpatient Medications Medication ??? EPINEPHrine (EPIPEN) 0.3 mg/0.3 mL injection ??? ibuprofen (MOTRIN) 800 mg tablet ??? norethindrone (MICRONOR) 0.35 mg tablet ??? Thyroid, Pork, (ARMOUR THYROID) 180 mg tablet No current facility-administered medications for this visit. Allergies Allergen Reactions ??? Penicillins Anaphylaxis ??? Adhesive Had bad reaction to Steri-Strips. Not sure of full allergy. ??? Bee Sting [Hymenoptera Allergenic Extract] Massive swelling ??? Propranolol Shortness Of Breath ??? Sulfa (Sulfonamide Antibiotics) Hives POBHx: PGynHx: Menses: see HPI Contraception: see HPI STDs: NA Pap: 2020 Social History Socioeconomic History ??? Marital status: Single Spouse name: Not on file ??? Number of children: Not on file ??? Years of education: Not on file ??? Highest education level: Not on file Occupational History ??? Not on file Tobacco Use ??? Smoking status: Never ??? Smokeless tobacco: Never Substance and Sexual Activity ??? Alcohol use: No ??? Drug use: No ??? Sexual activity: Not on file Other Topics Concern ??? Not on file Social History Narrative ??? Not on file Social Determinants of Health Financial Resource Strain: Not on file Food Insecurity: Not on file Transportation Needs: Not on file Physical Activity: Not on file Stress: Not on file Social Connections: Not on file Housing Stability: Not on file Family History Problem Relation Age of Onset ??? Kidney Disease Mother stones ??? Thyroid Disease Mother ??? Thyroid Disease Sister ??? Asthma Sister ??? Anesthesia Problems Father ??? High Blood Pressure Father ??? Diabetes Maternal Grandmother ??? Early Maternal Grandmother ??? Heart Disease Maternal Grandmother ??? High Cholesterol Maternal Grandmother ??? High Blood Pressure Maternal Grandmother ??? Early Paternal Grandfather ??? Heart Disease Paternal Grandfather PE: BP (!) 148/104 (BP Cuff Location: Right arm, BP Patient Position: Sitting, BP Cuff Sizes: Adult, regular) Ht 161.3 cm (63.5) Wt 81.2 kg (179 lb) BMI 31.21 kg/m?? GEN: NAD, pleasant HEENT: No cervical lymphadenopathy. No palpable thyromegaly. CV: RRR, no murmurs PULM: CTAB throughout, no wheezes. ABD: +BS, soft, NT, ND. No masses EXT: NT, No edema, normal ROM. NEURO: AAO x3, normal mood and affect. Allergy And Immunology Specialist: BREAST: No palpable masses or tenderness. No visible lesions. PELVIC: Normal appearing external genitalia without notable discharge or lesions. Speculum exam reveals normal appearing cervix without lesions or discharge. No bleeding. Bimanual exam reveals anteverted non-tender uterus, no cervical motion tenderness, no adnexal tenderness or masses. No urethral a bnormalities, tenderness or masses noted A/P: Annual Thyroid med refilled, TFT's today. Pap not due Continue minipill Denice Martinez MD 08/27/2022 15:39 documented in this encounter Plan of Treatment Not on file documented as of this encounter Procedures Procedure Name Priority Date/Time Associated Diagnosis Comments PAP TEST Routine 10/19/2019 0:00 EST documented in this encounter Results * (ABNORMAL) TSH (08/27/2022 16:07 EST) TSH 58.60(H) 0.47 - 4.68 mIU/L 08/27/2022 18:08 EST [facility] Blood VENOUS BLOOD / Unknown Venipuncture / Unknown 08/27/2022 16:07 EST 08/27/2022 16:38 EST Narrative [facility] - 08/27/2022 18:08 EST The results of this assay can be falsely lowered due to the consumption of Biotin. Denice Martinez MD CHEMISTRY & BLOOD GA S ORDERABLES [facility] [address] [place] [address] * PAP TEST (10/19/2019 0:00 EST) Papanicolaou smear specimen (specimen) CERVIX UTERI STRUCTURE / Unknown Denice Martinez MD PATHOLOGY ORDERABLES [facility] documented in this encounter Visit Diagnoses Diagnosis History of Graves' disease- Primary Personal history of other endocrine, metabolic, and immunity disorders Hypothyroidism, iatrogenic Other iatrogenic hypothyroidism documented in this encounter Discontinued Medications Medication Sig Discontinue Reason Start Date End Da te Thyroid, Pork, (ARMOUR THYROID) 180 mg tabletIndications:Hypoth yroidism, iatrogenic Take 1 Tablet by mouth daily. Reorder 03/26/2022 08/27/2022 norethindrone (MICRONOR) 0.35 mg tablet Take 1 Tablet by mouth daily. Reorder 05/20/2022 08/27/2022 documented as of this encounter Care Teams Delphi Developer Relationship Specialty Start Date End Date Comfort Zelaya NP [address] [place] [phone] PCP - General Family Medicine - Primary Care 03/08/22 documented as of this encounter
--- OUTSIDE RECORDS SUMMARY | 2024-05-24 15:27 | XMS_ITS | Encounter Summary ---
Author Organization [facility] Address [address] [place] [address] Care Team Providers Care Reserve Operator Name Role Phone Shannan Vieyra MD Primary Care Provider Unavail Leida Jackson PA-C Primary Care Provi melvin Comfort Zelaya NP Primary Care Provider [phone] Reason for Visit * Reason Onset Date Comments Medications Refill 07/22/2018 Encounter Details Date Type Department Care Team (Late st Contact Info) Description 07/22/2018 Refill [facility] Family Medicine [address] [phone] Leida Man PA-C [address] [facility] [address] [place], [place] [phone] Medications Refill Social History Tobacco Use Types Packs/Day Years Used Date Smoking Tobacco: Never Smokeless Tobacco: Never Alcohol Use Standard Drinks/Week Comments No 0 (1 standard drink = 0.6 oz pur e alcohol) Sex and Gender Information Value Date Recorded Sex Assigned at Not on file Gender Identity Not on file Sexual Orientation Not on file documented as of this encounter Ordered Prescriptions Prescription Sig Dispensed Refills Start Date End Da te Thyroid, Pork, (ARMOUR THYROID) 180 mg tabletIndications:Hypothyr oidism, iatrogenic Take 180 mg by mouth daily. 90 Tab 07/24/2018 08/07/2018 documented in this encounter Miscellaneous Notes * Telephone Encounter - Alisha Nino RN - 07/24/2018 0753 EDT Requested Prescriptions Signed Prescriptions Disp Refills ??? Thyroid, Pork, (ARMOUR THYROID) 180 mg tablet 90 Tab 0 Sig: Take 180 mg by mouth daily. Authorizing Provider: LEIDA MAN Ordering User: ALISHA NINO RN 07/24/2018 7:56 documented in this encounter Plan of Treatment Not on file documented as of this encounter Visit Diagnoses Diagnosis Hypothyroidism, iatrogenic Other iatrogenic hypothyroidism documented in this encounter Discontinued Medications Medication Sig Discontinue Reason Start Date End Da te Thyroid, Pork, 180 mg tabletIndications:Hypothy roidism, iatrogenic Take 180 mg by mouth daily. Reorder 12/23/2017 07/22/2018 documented as of this encounter Care Teams Reserve Operator Relationship Specialty Start Date End Date Shannan Vieyra MD PCP - General 04/08/09 03/15/19 Leida Man PA-C PCP - General 03/16/19 03/07/22 Comfort Zelaya NP [address] [place] [phone] PCP - General Family Medicine - Primary Care 03/08/22 documented as of this encounter
--- OUTSIDE RECORDS SUMMARY | 2024-05-24 15:27 | XMS_ITS | Encounter Summary ---
Author Organization [facility] Address [address] [place] [address] Care Team Providers Care Nuclear Radiologist Name Role Phone Leida Cerda PA-C Primary Care Provi melvin Reason for Referral * Radiology Services (Routine) - Specialty Report Received Specialty Diagnoses / Procedures Referred By Contac t Referred To Contact Diagnoses Injury of left wrist, initial encounter Procedures XR WRIST LEFT 3 OR MORE VIEWS Leida Cerda PA-C [address] [address] Referral ID Status Reason Start Date Expiration Date V isits Requested Visits Authorized [id number] Specialty Report Received 04/09/2021 1 1 Reason for Visit * Radiology Services (Routine) - Specialty Report Received Specialty Diagnoses / Procedures Referred By Contac t Referred To Contact Diagnoses Injury of left wrist, initial encounter Procedures XR WRIST LEFT 3 OR MORE VIEWS Leida Cerda PA-C [address] [address] Referral ID Status Reason Start Date Expiration Date V isits Requested Visits Authorized [id number] Specialty Report Received 04/09/2021 1 1 Encounter Details Date Type Department Care Team (Latest Contact Info) Description 04/10/2021 15:58 EDT - 04/10/2021 23:59 EDT Hospital Encounter [facility] [address] [place] [address] Injury of left wrist, initial encounter Discharge Disposition: Home or Self Care Social History Tobacco Use Types Packs/Day Years [...] No 07/31/2018 documented as of this encounter Medications at Time of Discharge Medication Sig Dispensed Refills Start Date End Date ibuprofen (MOTRIN) 800 mg tablet Take 1 Tablet by mouth every 6 hours as needed for Pain. EPINEPHrine (EPIPEN) 0.3 mg/0.3 mL injectionIndications:Bee sting Inject 0.3 mL into the muscle once as needed for up to 1 dose (Bee Allergy). 2 Syringe 5 04/15/2020 04/25/2023 Thyroid, Pork, 180 mg tabletIndications:Hypoth yroidism, iatrogenic Take 180 mg by mouth daily. 90 Tab 3 06/30/2020 08/10/2021 documented as of this encounter Discharge Disposition Disposition Code Departure Means Destination Home or Self Care documented in this encounter Plan of Treatment Not on file documented as of this encounter Procedures Procedure Name Priority Date/Time Associated Diagnosis Comments XR WRIST LEFT 3 OR MORE VIEWS Routine 04/10/2021 16:16 EDT Injury of left wrist, initial encounter documented in this encounter Results * XR WRIST LEFT 3 OR MORE VIEWS (04/10/2021 16:16 EDT) Anatomical Region Laterality Modality Upper Extremities Left Computed Radio graphy 04/10/2021 16:2 9 EDT Impressions 04/10/2021 16:29 EDT No acute radiographic abnormality. I have personally reviewed the images and the above interpretation and agree with the findings. Narrative 04/10/2021 16:29 EDT XR WRIST LEFT 3 OR MORE VIEWS ??04/10/2021 4:00 PM SIGNS AND SYMPTOMS/COMMENTS: FOOSH injury, pain radial wrist/snuff box area COMPARISON: None available. TECHNIQUE: PA, oblique, and lateral views of the left wrist were obtained. FINDINGS: No fracture or malalignment. There are mild degenerative changes in the first CMC joint and radiocarpal joint. Mineralization is normal. Soft tissues are radiographically unremarkable. Procedure Note Darius Lopes MD - 04/10/2021 XR WRIST LEFT 3 OR MORE VIEWS 04/10/2021 4:00 PM SIGNS AND SYMPTOMS/COMMENTS: FOOSH injury, pain radial wrist/snuff boxarea COMPARISON: None available. TECHNIQUE: PA, oblique, and lateral views of the left wrist were obtained. FINDINGS: No fracture or malalignment. There are mild degenerative changes in thefirst CMC joint and radiocarpal joint. Mineralization is normal. Softtissues are radiographically unremarkable. IMPRESSION No acute radiographic abnormality. I have personally reviewed the images and the above interpretation andagree with the findings. Leida Cerda PA-C IM DIAGNOS TIC IMAGING ORDERABLES documented in this encounter Visit Diagnoses Diagnosis Injury of left wrist, initial encounter documented in this encounter Care Teams Nuclear Radiologist Relationship Specialty Start Date End Date Leida Cerda PA-C PCP - General 03/16/19 03/07/22 documented as of this encounter
--- OUTSIDE RECORDS SUMMARY | 2024-05-24 15:27 | XMS_ITS | Encounter Summary ---
Author Organization [facility] Address [address] [place] [address] Care Team Providers Care Gymnastic Teacher Name Role Phone Shannan Vieyra MD Primary Care Provider Unavail able Reason for Visit * Reason Comments Follow-up BP follow up; Flu Vaccine declinse flu vaccine Encounter Details Date Type Department Care Team (Late st Contact Info) Description 09/05/2018 9:30 EST Office Visit [facility] Medicine [place] [phone] Leida Cerda PA-C [address] [facility] [address] [place], [place] [phone] Elevated blood pressure reading (Primary Dx); Bee sting; Hypothyroidism, iatrogenic Social History Tobacco Use Types [...] Sign Reading Time Taken Comments Blood Pressure 134/88 09/05/2018 0940 EST Pulse 80 09/05/2018 0940 EST Temperature 37.5 ??C (99.5 ??F) 09/05/2018 0940 EST Respiratory Rate - - Oxygen Saturation - - Inhaled Oxygen Concentration - - Weight 75.2 kg (165 lb 12.8 oz) 09/05/2018 0940 EST Height - - Body Mass Index 28.46 05/14/2014 1431 EDT documented in this encounter Functional Status Functional [...] Dispensed Refills Start Date End Da te EPINEPHrine (EPIPEN) 0.3 mg/0.3 mL injectionIndications:Bee sting Inject 0.3 mL into the muscle once as needed for up to 1 dose (allergic reaction). 2 Syringe 6 09/05/2018 04/14/2020 documented in this encounter Progress Notes * Leida Cerda PA - 09/05/2018 7233 EST Subjective: Patient ID: Doris Kerr is an 38 y.o. female. Chief Complaint Patient presents with ??? Follow-up BP follow up; ??? Flu Vaccine declinse flu vaccine HPI BP f/u as it was high at last visit. Had it checked at the audio specialist office since then and it was ok. Feels well, no chest pain, racing, palpitations, SOB. Eats clean with no added salt. Recently adjusted Elliott Thyroid and will re check TSH in another month or two Needs refill of epipen for bee sting allergy Patient Active Problem List Diagnosis ??? Contraceptive [...] unspecified 2003 ??? Thyroid disease Current Outpatient Medications on File Prior to Visit Medication Sig Dispense Refill ??? ibuprofen (MOTRIN) 800 mg tablet Take 800 mg by mouth every 6 hours as needed for Pain ??? levonorgestrel-ethinyl estradiol (SEASONALE) 0.15-30 mg-mcg per tablet Take 1 Tab by mouth daily. ??? Thyroid, Pork, 240 mg tablet Take 240 mg by mouth daily. 90 Tab 4 No current facility-administered medications on file prior to visit. Allergies Allergen Reactions ??? Penicillins Anaphylaxis ??? Adhesive Had bad reaction to Steri-Strips. Not sure of full allergy. ??? Bee Sting [Hymenoptera Allergenic Extract] Massive swelling ??? Propranolol Shortness Of Breath ??? Sulfa (Sulfonamide Antibiotics) Hives Social Social History Tobacco Use ??? Smoking status: Never Smoker ??? Smokeless tobacco: Never Used Substance Use Topics ??? Alcohol use: No ??? Drug use: No ROS - See HPI Objective: BP 134/88 (BP Cuff Location: Right arm, Patient Position: Sitting, BP Cuff Sizes: Adult, large) Pulse 80 Temp 37.5 ??C (99.5 ??F) (Tympanic) Wt 75.2 kg (165 lb 12.8 oz) BMI 28.46 kg/m?? Physical Exam Constitutional: She appears well-developed and well-nourished. No distress. Neck: No thyromegaly present. Cardiovascular: Normal rate, regular rhythm and normal heart sounds. Pulmonary/Chest: Effort normal and breath sounds normal. Neurological: She is alert. Psychiatric: She has a normal mood and affect. Her behavior is normal. Nursing note and vitals reviewed. Assessment: Encounter Diagnoses Name Primary? Bee sting ??? Elevated blood pressure reading Yes ??? Hypothyroidism, iatrogenic Plan: Doris was seen today for follow-up and flu vaccine. Diagnoses and all orders for this visit: Elevated blood pressure reading Monitor on occasion at the pharmacy and f/u if elevated Continue healthy eating Bee sting - EPINEPHrine (EPIPEN) 0.3 mg/0.3 mL injection; Inject 0.3 mL into the muscle once as needed for upto 1 dose (allergic reaction). Hypothyroidism, iatrogenic Re check TSH 2 mo Patient Education Topic: as above Method: Verbal Taught to: Patient Barriers: None Outcomes: verbalized understanding Signature:DT documented in this encounter Plan of Treatment Not on file documented as of this encounter Visit Diagnoses Diagnosis Elevated blood pressure reading- Primary Elevated blood pressure reading without diagnosis of hypertension Bee sting Toxic effect of venom Hypothyroidism, iatrogenic Other iatrogenic hypothyroidism documented in this encounter Discontinued Medications Medication Sig Discontinue Reason Start Date End Da te EPINEPHrine (EPIPEN) 0.3 mg/0.3 mL injectionIndications:Bee sting, undetermined intent, sequela Inject 0.3 mL into the muscle once as needed for up to 1 dose (allergic reaction). 08/24/2016 08/24/2016 documented as of this encounter Care Teams Gymnastic Teacher Relationship Specialty Start Date End Date Shannan Vieyra MD PCP - General 04/08/09 03/15/19 documented as of this encounter
--- OUTSIDE RECORDS SUMMARY | 2024-05-24 15:27 | XMS_ITS | Encounter Summary ---
Author Organization [facility] Address [address] [place] [address] Care Team Providers Care Corporate Traffic Manager Name Role Phone Leida Creda PA-C Primary Care Provi melvin Reason for Visit * Reason Comments Hypothyroidism Encounter Details Date Type Department Care Team (Late st Contact Info) Description 06/25/2020 9:00 EDT Office Visit [address] [phone] Leida Cerda PA-C 402 [facility] [address] [place] [address] Hypothyroidism, iatrogenic (Primary Dx); Need for Td vaccine; Elevated blood pressure reading Social History Tobacco Use Types Packs/Day Years [...] Sign Reading Time Taken Comments Blood Pressure 132/90 06/25/2020 0923 EDT Pulse 68 06/25/2020 0923 EDT Temperature 36.4 ??C (97.5 ??F) 06/25/2020 0923 EDT Respiratory Rate 16 06/25/2020922 EDT Oxygen Saturation - - Inhaled Oxygen Concentration - - Weight 71.7 kg (158 lb) 06/25/2020922 EDT Height 162.6 cm (5' 4.02) 06/25/2020922 EDT Body Mass Index 27.11 06/25/2020922 EDT documented in this encounter Functional Status [...] No 07/31/2018 documented as of this encounter Patient Instructions * Patient Instructions* Leida Cerda PA-C - 06/25/2020 9:00 EDT BP should be under 140/90 documented in this encounter Progress Notes * Leida Cerda PA-C - 06/25/2020 0900 EDT Subjective: Patient ID: Doris Kerr is an 40 y.o. female. Chief Complaint Patient presents with ??? 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 Contraceptive [...] to Visit Medication Sig Dispense Refill ??? EPINEPHrine (EPIPEN) 0.3 mg/0.3 mL injection Inject 0.3 mL into the muscle once as needed for up to 1 dose (Bee Allergy). 2 Syringe 5 ??? ibuprofen (MOTRIN) 800 mg tablet Take 800 mg by mouth every 6 hours as needed for Pain ??? Thyroid, Pork, 240 mg tablet Take 240 mg by mouth daily. NEEDS BLOOD WORK 30 Tab 0 No current facility-administered medications on [...] No ROS - See HPI Objective: BP 132/90 (BP Cuff Location: Right arm, BP Patient Position: Sitting, BP Cuff Sizes: Adult, regular) Pulse 68 Temp 36.4 ??C (97.5 ??F) (Skin) Resp 16 Ht 162.6 cm (64.02) Wt 71.7 kg (158 lb) LMP 04/09/2020 (Approximate) BMI 27.11 kg/m?? 130/84 on recheck Physical Exam Vitals signs and nursing note reviewed. Constitutional: General: She is not in acute distress. Appearance: She is well-developed and well-nourished. Cardiovascular: Rate and Rhythm: Normal rate and regular rhythm. Heart sounds: Normal heart sounds. Pulmonary: Effort: Pulmonary effort is normal. Musculoskeletal: General: No edema. Neurological: Mental Status: She is alert. Psychiatric: Mood and Affect: Mood and affect normal. Behavior: Behavior normal. Assessment: Encounter Diagnoses Name Primary? Need for Td vaccine ??? Hypothyroidism, iatrogenic Yes ??? Elevated blood pressure reading Plan: Doris was seen today for hypothyroidism. Diagnoses and all orders for this visit: Need for Td vaccine - TD (ADULT) 2 LF VACCINE =>7YO IM Hypothyroidism, iatrogenic - THYROID CASCADE Elevated blood pressure reading - BASIC METABOLIC PANEL (BMP) Have school nurse check BP a few times in the next mo and message me with numbers Patient Education Topic: as above Method: Verbal Taught to: Patient Barriers: None Outcomes: verbalized understanding Signature:DT * Sherrie Hernandez - 06/25/2020 0900 EDT Venipuncture performed per order [place] in the right arm without incident 1sst * Mauri Barnard LPN - 06/25/2020 0900 EDT Venipuncture performed per order VAN Roblero in the left antecubital unsuccessful without incident. Administered Td to right deltoid IM per order VAN Roblero. I was supervised by VAN Roblero who was present and immediately available in the office suite. MAURI BARNARD LPN 06/25/2020 10:27 documented in this encounter Plan of Treatment Not on file documented as of this encounter Procedures Procedure Name Priority Date/Time Associated Diagnosis Comments THYROID CASCADE Routine 06/25/2020 9:58 EDT Hypothyroidism, iatrogenic T3, TOTAL Today 06/25/2020 9:58 EDT Hypothyroidism, iatrogenic T4 FREE Today 06/25/2020 9:58 EDT Hypothyroidism, iatrogenic BASIC METABOLIC PANEL (BMP) Routine 06/25/2020 9:58 EDT Elevated blood pressure reading documented in this encounter Results * (ABNORMAL) T3, TOTAL (06/25/2020 9:58 EDT) T3, Total 290(H) 97 - 169 ng/dL 06/25/2020 16:37 EDT [facility] Blood VENOUS BLOOD / Unknown Venipuncture / Unknown 06/25/2020 9:58 EDT 06/25/2020 9:58 EDT Leida Cerda PA-C CHEMISTRY & BLOOD GAS ORDERABLES Performing Organization Address City/[facility]/ZIP Co de Phone Number [facility] [address] [place] [address] * T4 FREE (06/25/2020 9:58 EDT) T4, Free 2.0 0.8 - 2.2 ng/dL 06/25/2020 15:40 EDT [facility] Blood VENOUS BLOOD / Unknown Venipuncture / Unknown 06/25/2020 9:58 EDT 06/25/2020 9:58 EDT Leida Cerda PA-C CHEMISTRY & BLOOD GAS ORDERABLES Performing Organization Address [facility] Co de Phone Number [facility] [address] [place] [address] * BASIC METABOLIC PANEL (BMP) (06/25/2020 9:58 EDT) Sodium 141 136 - 145 mEq/L 06/25/2020 14:23 [facility] Potassium 4.8 3.5 - 5.0 mEq/L 06/25/2020 14:23 [facility] Chloride 105 96 - 110 mEq/L 06/25/2020 14:23 [facility] CO2 Total 23 22 - 32 mEq/L 06/25/2020 14:23 [facility] Glucose 96 70 - 100 mg/dL 06/25/2020 14:23 [facility] Calcium 10.1 8.5 - 10.5 mg/dL 06/25/2020 14:23 [facility] Calculated Calcium 9.6 8.5 - 10.5 mg/dL 06/25/2020 14:23 [facility] BUN 17 10 - 26 mg/dL 06/25/2020 14:23 [facility] Creatinine 0.53 0.52 - 1.04 mg/dL 06/25/2020 14:23 [facility] eGFR 120 >60 mL/min/1.7 3m2 06/25/2020 14:23 EDT [facility] Comment:eGFR calculated usin g CKD-EPI equation for non- Americans. Multiply eGFR by 1.16 for patients. Blood VENOUS BLOOD / Unknown Venipuncture / Unknown 06/25/2020 9:58 EDT 06/25/2020 9:58 EDT Leida Cerda PA-C CHEMISTRY & BLOOD GAS ORDERABLES Performing Organization Address [facility] Co de Phone Number [facility] [address] [place] [address] * (ABNORMAL) THYROID CASCADE (06/25/2020 9:58 EDT) TSH <0.02(L) 0.47 - 4.68 uIU/mL 06/25/2020 14:56 EDT [facility] Blood VENOUS BLOOD / Unknown Venipuncture / Unknown 06/25/2020 9:58 EDT 06/25/2020 9:58 EDT Narrative [facility] - 06/25/2020 14:56 EDT NOTE: TSH [place] is not recommended for patients in which pituitary or hypothalamic disorders are suspected. The results of this assay can be falsely lowered due to the consumption of Biotin. Leida Cerda PA-C CHEMISTRY & BLOOD GAS ORDERABLES Performing Organization Address [facility] Co de Phone Number [facility] [address] [place] [address] documented in this encounter Visit Diagnoses Diagnosis Hypothyroidism, iatrogenic- Primary Other iatrogenic hypothyroidism Need for Td vaccine Need for prophylactic vaccination with tetanus-diphtheria (Td) Elevated blood pressure reading Elevated blood pressure reading without diagnosis of hypertension documented in this encounter Discontinued Medications Medication Sig Discontinue Reason Start Date End Da te levonorgestrel-ethinyl estradiol (SEASONALE) 0.15-30 mg-mcg per tablet Take 1 Tab by mouth daily. Alternate therapy 06/25/2020 documented as of this encounter Orders Immunization/Injection Count Last Ordered Date First Ordered Date TD (ADULT) 2 LF VACCINE =>7YO IM 1 06/25/20 20 documented in this encounter Care Teams Corporate Traffic Manager Relationship Specialty Start Date End Date Leida Cerda PA-C PCP - General 03/16/19 03/07/22 documented as of this encounter
--- OUTSIDE RECORDS SUMMARY | 2024-05-24 15:27 | XMS_ITS | Encounter Summary ---
Author Organization [facility] Address [address] [place] [address] Care Team Providers Care Staff Nuclear Weapons Officer Name Role Phone Comfort Zelaya NP Primary Care Provider [phone] Reason for Referral * Radiology Services (Routine/Next Available) - Authorization Not Required Specialty Diagnoses / Procedures Referred By Contac t Referred To Contact Diagnoses Mass of left breast, unspecified quadrant Procedures US BREAST LIMITED LEFT US BREAST DIAGNOSTIC eDnice Martinez MD [address] [place] [phone] [facility] Referral ID Status Reason Start Date Expiration Date Visits Requested Visits Authorized [id number] Authorization Not Required 2 1 1 Reason for Visit * Radiology Services (Routine/Next Available) - Authorization Not Required Specialty Diagnoses / Procedures Referred By Julianne gallo Referred To Contact Diagnoses Mass of left breast, unspecified quadrant Procedures US BREAST LIMITED LEFT US BREAST DIAGNOSTIC Denice Martinez MD [address] [place] [phone] [facility] Referral ID Status Reason Start Date Expiration Date Visits Requested Visits Authorized [id number] Authorization Not Required 2 1 1 Encounter Details Date Type Department Care Team (Latest Contact Info) Description 08/17/2022 13:50 EST - 08/17/2022 23:59 EST Hospital [facility]counter [facility] Breast Imaging Ultrasound - [address] [address] Mass of left breast, unspecified quadrant Discharge Disposition: Home or Self Care Social [...] (Bee Allergy). 2 Syringe 5 04/15/2020 04/25/2023 norethindrone (MICRONOR) 0.35 mg tablet Take 1 Tablet by mouth daily. 84 Tablet 1 05/20/2022 08/27/2022 Thyroid, Pork, (ARMOUR THYROID) 180 mg tabletIndications:Hypoth yroidism, iatrogenic Take 1 Tablet by mouth daily. 30 Tablet 1 03/26/2022 08/27/2022 documented as of this encounter Discharge Disposition Disposition Code Departure Means Destination Home or Self Care documented in this encounter Plan of Treatment Not on file documented as of this encounter Procedures Procedure Name Priority Date/Time Associated Diagnosis Comments US BREAST LIMITED LEFT Routine 08/17/2022 15:33 EST Mass of left breast, unspecified quadrant documented in this encounter Results * US BREAST LIMITED LEFT (08/17/2022 15:33 EST) Anatomical Region Laterality Modality Breast Left Ultrasound 08/17/2022 15:4 0 EST Impressions 08/17/2022 15:40 EST RIGHT BREAST: BI-RADS 1: Negative IMPRESSION LEFT BREAST: BI-RADS 1: Negative RECOMMENDATIONS: 1. ??Routine screening mammogram. Further management of any persistent palpable finding should be based on the clinical level of concern. Negative imaging findings should not preclude biopsy of any clinically suspicious palpable finding. The inspector brake lining discussed the radiologist's interpretation and follow up [...] mass is seen. Denice Martinez MD IMG US ORDERABLES documented in this encounter Visit Diagnoses Diagnosis Mass of left breast, unspecified quadrant documented in this encounter Care Teams Staff Nuclear Weapons Officer Relationship Specialty Start Date End Date Comfort Zelaya NP [address] [place] [phone] PCP - General Family Medicine - Primary Care 03/08/22 documented as of this encounter
--- OUTSIDE RECORDS SUMMARY | 2024-05-24 15:27 | XMS_ITS | Encounter Summary ---
Author Organization [facility] Address [address] [place] [address] Care Team Providers Care Incoming Freight Clerk Name Role Phone Shannan Vieyra MD Primary Care Provider Unavail able Encounter Details Date Type Department Care Team (Late st Contact Info) Description 08/01/2018 Orders Only [facility] Medicine [place] [phone] Leida Cerda PA-C [address] [place] [address] [address] [place], [place] [address] Hypothyroidism, iatrogenic (Primary Dx) Social History Tobacco Use Types Packs/Day Years [...] hypothyroidism documented in this encounter Care Teams Incoming Freight Clerk Relationship Specialty Start Date End Date Shannan Vieyra MD PCP - General 04/08/09 03/15/19 documented as of this encounter
--- OUTSIDE RECORDS SUMMARY | 2024-05-24 15:27 | XMS_ITS | Encounter Summary ---
Author Organization [facility] Address [address] [place] [address] Care Team Providers Care Auto Machinist Name Role Phone Comfort Zelaya NP Primary Care Provider [phone] Encounter Details Date Type Department Care Team (Late st Contact Info) Description 05/18/2023 Lab Requisition [facility] Pathology & [place] [address] Outr Resulting Lab, Provider Social History Tobacco [...] Date/Time Associated Diagnosis Comments T3 FREE Routine 05/18/2023 11:40 EDT documented in this encounter Results * T3 FREE (05/18/2023 11:40 EDT) T3, Free 3.6 2.8 - 5.3 pg/mL 05/18/2023 22:11 EDT [facility] Blood VENOUS BLOOD / Unknown 05/18/2023 11:40 EDT 05/18/2023 21:35 EDT Provider Outr Resulting Lab CHEMISTRY & BLOOD GAS ORDERABLES [facility] [address] [place] [address] documented in this encounter Visit Diagnoses Not on filedocumented in this encounter Care Teams Auto Machinist Relationship Specialty Start Date End Date Comfort Zelaya NP [address] [place] [phone] PCP - General Family Medicine - Primary Care 03/08/22 documented as of this encounter
--- OUTSIDE RECORDS SUMMARY | 2024-05-24 15:27 | XMS_ITS | Encounter Summary ---
Author Organization [facility] Address [address] [place] [address] Care Team Providers Care Professional Advisor Name Role Phone Shannan Vieyra MD Primary Care Provider Unavail Leida Jackson PA-C Primary Care Provi melvin Comfort Zelaya NP Primary Care Provider [phone] Reason for Visit * Reason Onset Date Comments Medications Refill 12/24/2017 Encounter Details Date Type Department Care Team (Late st Contact Info) Description 12/24/2017 Refill [facility] Family Medicine - [address] [phone] Leida Cerda PA-C [address] [facility] [address] [place], [place] [phone] Medications Refill Social History Tobacco Use Types Packs/Day Years Used Date Smoking Tobacco: Never Smokeless Tobacco: Never Alcohol Use Standard Drinks/Week Comments No 0 (1 standard drink = 0.6 oz pur e alcohol) Sex and Gender Information Value Date Recorded Sex Assigned at Not on file Gender Identity Not on file Sexual Orientation Not on file documented as of this encounter Miscellaneous Notes * Telephone Encounter - Elisha Salazar - 12/26/2017 1053 EDT Requested Prescriptions Refused Prescriptions Disp Refills ??? ARMOUR THYROID 180 mg tablet [Pharmacy Med Name: ARMOUR THYROID 180 MG TABLET] 30 Tab 11 Sig: take 1 tablet by mouth daily Refused By: ELISHA SALAZAR Reason for Refusal: Unexpected request, review all meds with pt. Refills already sent to [facility] 12/23/17 for 90-day supply. documented in this encounter Plan of Treatment Not on file documented as of this encounter Visit Diagnoses Diagnosis Hypothyroidism, iatrogenic Other iatrogenic hypothyroidism documented in this encounter Care Teams Professional Advisor Relationship Specialty Start Date End Date Shannan Vieyra MD PCP - General 04/08/09 03/15/19 Leida Cerda PA-C PCP - General 03/16/19 03/07/22 Comfort Zelaya NP [address] [place] [phone] PCP - General Family Medicine - Primary Care 03/08/22 documented as of this encounter
--- OUTSIDE RECORDS SUMMARY | 2024-05-24 15:27 | XMS_ITS | Encounter Summary ---
Author Organization [facility] Address [address] [place] [address] Care Team Providers Care Psychologist Engineering Name Role Phone Comfort Zelaya NP Primary Care Provider [phone] Reason for Referral * Radiology Services (Routine/Next Available) - New Request Specialty Diagnoses / Procedures Referred By Julianne gallo Referred To Contact Diagnoses Mass of left breast, unspecified quadrant Procedures MA BREAST DIAGNOSTIC ARIANNA BILATERAL MA BREAST DIAGNOSTIC BILATERAL Denice Martinez MD [address] [phone] [facility] Referral ID Status Reason Start Date Expiration Date V isits Requested Visits Authorized [id number] New Request 07/28/2022 1 1 Reason for Visit * Radiology Services (Routine/Next Available) - New Request Specialty Diagnoses / Procedures Referred By Julianne gallo Referred To Contact Diagnoses Mass of left breast, unspecified quadrant Procedures MA BREAST DIAGNOSTIC ARIANNA BILATERAL MA BREAST DIAGNOSTIC BILATERAL Denice Martinez MD [address] [place] [phone] [facility] Referral ID Status Reason Start Date Expiration Date V isits Requested Visits Authorized [id number] New Request 07/28/2022 1 1 Encounter Details Date Type Department Care Team (Latest Contact Info) Description 08/17/2022 13:50 EST - 08/17/2022 23:59 EST Hospital Encounter [facility] Breast Imaging Mammography - [address] [address] Mass of left breast, unspecified quadrant Discharge [...] Procedure Name Priority Date/Time Associated Diagnosis Comments MA BREAST DIAGNOSTIC ARIANNA BILATERAL Routine 08/17/2022 14:17 EST Mass of left breast, unspecified quadrant documented in this encounter Results * MA BREAST DIAGNOSTIC ARIANNA BILATERAL (08/17/2022 [...] of any clinically suspicious palpable finding. The distribution engineering technologist discussed the radiologist's interpretation and follow up [...] is seen. Denice Martinez MD IMG MAMMOGRAPHY ELLEN LAL documented in this encounter Visit Diagnoses Diagnosis Mass of left breast, unspecified quadrant documented in this encounter Care Teams Psychologist Engineering Relationship Specialty Start Date End Date Comfort Zelaya NP [address] [place] [phone] PCP - General Family Medicine - Primary Care 03/08/22 documented as of this encounter
--- OUTSIDE RECORDS SUMMARY | 2024-05-24 15:27 | XMS_ITS | Encounter Summary ---
Author Organization [facility] Address [address] [place] [address] Care Team Providers Care Health And Physical Education Professor Name Role Phone Leida Cerda PA-C Primary Care Provi melvin Encounter Details Date Type Department Care Team (Late st Contact Info) Description 06/30/2020 Orders Only [facility] Family Medicine [address] [phone] Leida Cerda PA-C 402 [facility] [place] [address] [place] [address] Hypothyroidism, iatrogenic (Primary Dx) Social History Tobacco [...] End Da te Thyroid, Pork, 180 mg tabletIndications:Hypothyr oidism, iatrogenic Take 180 mg by mouth daily. 90 Tab 3 06/30/2020 08/10/2021 documented in this encounter Plan of Treatment Not on file documented as of this encounter Visit Diagnoses Diagnosis Hypothyroidism, iatrogenic- Primary Other iatrogenic hypothyroidism documented in this encounter Discontinued Medications Medication Sig Discontinue Reason Start Date End Da te Thyroid, Pork, 240 mg tabletIndications:Hypothy roidism, iatrogenic Take 240 mg by mouth daily. NEEDS BLOOD WORK Dose adjustment 06/05/2020 06/30/2020 documented as of this encounter Care Teams Health And Physical Education Professor Relationship Specialty Start Date End Date Leida Cerda PA-C PCP - General 03/16/19 03/07/22 documented as of this encounter
--- OUTSIDE RECORDS SUMMARY | 2024-05-24 15:27 | XMS_ITS | Encounter Summary ---
Author Organization [facility] Address [address] [place] [address] Care Team Providers Care Lan Administrator Name Role Phone Leida Cerda PA-C Primary Care Provi melvin Comfort Zelaya NP Primary Care Provider [phone] Reason for Visit * Reason Onset Date Comments Medications Refill 04/14/2020 Encounter Details Date Type Department Care Team (Late st Contact Info) Description 04/14/[address] [phone] Leida Cerda PA-C 402 [facility] [address] [place], [place] [phone] Medications Refill Social History Tobacco Use Types [...] (Bee Allergy). 2 Syringe 5 04/15/2020 04/25/2023 documented in this encounter Miscellaneous Notes * Telephone Encounter - Alisha Nino RN - 04/15/2020 0755 EDT Requested Prescriptions Pending Prescriptions Disp Refills ??? EPINEPHrine (EPIPEN) 0.3 mg/0.3 mL injection 2 Syringe 5 Sig: Inject 0.3 mL into the muscle once as needed for up to 1 dose (Bee Allergy). Rx pended to PCP for approval ALISHA NINO RN 04/15/2020 7:55 * Telephone Encounter - Alisha Nino RN - 04/15/2020 0753 EDTFrom: Doris Kerr Sent: 04/14/2020 16:14 EDT Subject: Medication Renewal Request Doris Kerr would like a refill of the following medications: EPINEPHrine (EPIPEN) 0.3 mg/0.3 mL injection [Leiad Cerda PA-C] [id number] [facility] documented in this encounter Plan of Treatment Not on file documented as of this encounter Visit Diagnoses Diagnosis Bee sting Toxic effect of venom documented in this encounter Discontinued Medications Medication Sig Discontinue Reason Start Date End Da te EPINEPHrine (EPIPEN) 0.3 mg/0.3 mL injectionIndications:Bee sting Inject 0.3 mL into the muscle once as needed for up to 1 dose (allergic reaction). Reorder 09/05/2018 04/14/2020 documented as of this encounter Care Teams Lan Administrator Relationship Specialty Start Date End Date Leida Cerda PA-C PCP - General 03/16/19 03/07/22 Comfort Zelaya NP [address] [place] [phone] PCP - General Family Medicine - Primary Care 03/08/22 documented as of this encounter
--- OUTSIDE RECORDS SUMMARY | 2024-05-24 15:27 | XMS_ITS | Encounter Summary ---
Author Organization [facility] Address [address] [place] [address] Care Team Providers Care Instructional Design Manager Name Role Phone Comfort Zelaya NP Primary Care Provider [phone] Reason for Visit * Reason Onset Date Comments Appointment Related 07/28/2022 Encounter Details Date Type Department Care Team (Late st Contact Info) Description 07/28/2022 [facility]phone [facility] Breast [facility] Mammography - [address] [address] Alisa Robb Appointment Related Social History Tobacco [...] * Telephone Encounter - Alisa Robb - 07/28/2022 1514 EDT Patient left a message asking to schedule breast imaging. I called the patient back but had to leave a message. documented in this encounter Plan of Treatment Not on file documented as of this encounter Visit Diagnoses Not on filedocumented in this encounter Care Teams Instructional Design Manager Relationship Specialty Start Date End Date Comfort Zelaya NP [address] [place] [phone] PCP - General Family Medicine - Primary Care 03/08/22 documented as of this encounter
--- OUTSIDE RECORDS SUMMARY | 2024-05-24 15:27 | XMS_ITS | Referral Summary ---
Author Organization [facility] Address [address] [place] [address] Care Team Providers Care Biological Plant Operator Name Role Phone Comfort Zelaya NP Primary Care Provider [phone] Allergies Active Allergy Reactions Criticality Noted Date [...] IM 020 Tdap Vaccine =>8YO IM 02/13/2010 Social History Tobacco Use Types Packs/Day Years Used Date Smoking Tobacco: Never Smokeless Tobacco: Never Tobacco Cessation:Counseling Given: Not Answered Alcohol Use Standard Drinks/Week Comments No 0 (1 standard drink = 0.6 oz pur e alcohol) [facility] Utilities Answer Date Recorded In the past 12 months has e [employer], gas, oil, or water [employer] threatened to shut off services in your [...] place to sleep or slept in a fdc (including now)? No 10/28/2023 Interpersonal Safety Answer Date Record ed Physically Hurt Never 06/25/2020 Verbally Threaten Never 06/25/2020 Sex and Gender Information Value Date Recorded Sex Assigned at Not on file Gender Identity Not on file Sexual Orientation Not on file Last Filed Vital Signs Vital Sign Reading Time Taken Comments Blood Pressure 140/90 10/28/2023 1338 EST Pulse 68 06/25/2020 09 EDT Temperature 36.4 ??C (97.5 ??F) 06/25/2020 0923 EDT Respiratory Rate 16 06/25/2020 0923 EDT Oxygen Saturation 99% 02/17/2015 1922 EDT Inhaled Oxygen Concentration - - Weight 73.7 kg (162 lb 6.4 oz) 10/28/[address] Height 164.6 cm (5' 4.8) 10/28/2023 1338 EST Body Mass Index 27.19 10/28/2023 1338 EST Functional Status Functional Status Response Date of [...] concentrating, remembering, or making decisions? No 07/31/2018 Plan of Treatment Not on file Procedures Procedure Name Priority Date/Time Associated Diagnosis [...] Imaging System with Manual Evaluation 11/14/2023 19:11 [facility] Specimen Adequacy Satisfactory for Evaluation - transformation zone component present 11/14/2023 19:11 [facility] General Categorization Negative for intraepithelial lesion or malignancy 11/14/2023 19:11 [facility] Attestation . 11/14/2023 19:11 [facility] at 1911 Clinical History Screening 11/14/19 24 19:11 [facility] HPV The result for the Human Papillomavirus (HPV) Detection-High Risk Types is Negative. No E6 or E7 mRNA is detected from HPV types 16,18,31,33,35,39 ,45,51,52,56,58,5 9,66, and 68 by core manager mediated amplification.Misty ting was performed on specimen [id number] and was resulted on 11/14/2023 1911 EST by LUAN, LAB INSTRUMENT RESULTS IN 11/14/2023 19:[address] [facility] Performing Lab [facility] 11/14/2023 19:[address] [facility] Scanned Images 11/14/2023 19:[address] [facility] Pap Test CERVIX UTERI STRUCTURE / Unknown 10/28/2023 14:05 EST 10/31/2023 12:13 EST Denice Martinez MD PATHOLOGY ORDERABLES [facility] [address] [place] [address] * MA BREAST DIAGNOSTIC ARIANNA BILATERAL (08/17/2022 [...] of any clinically suspicious palpable finding. The spirits model discussed the radiologist's interpretation and follow up [...] Denice Martinez MD IMG MAMMOGRAPHY ELLEN LAL * LIPID PROFILE (INCLUDES CHOLESTEROL, TRIGLYCERIDES, [...] Advance Directives For more information, please contact: [phone] * Full Code (Latest Code Status on File) Date Activated Date Inactivated Comments 04/19/2014 9:24 04/19/2014 18:04 Care Teams Biological Plant Operator Relationship Specialty Start Date End Date oCmfort Zelaya NP [address] [place] [phone] PCP - General Family Medicine - Primary Care 03/08/22
--- OUTSIDE RECORDS SUMMARY | 2024-05-24 15:27 | XMS_ITS | Encounter Summary ---
Author Organization [facility] Address [address] [place] [address] Care Team Providers Care Pellet Mill Operator Name Role Phone Comfort Zelaya NP Primary Care Provider [phone] Encounter Details Date Type Department Care Team (Late st Contact Info) Description 08/27/2022 16:00 EST Phlebotomy Only [facility] ED Center 2 Phlebotomy [address] [place] [address] [employer] Glazer, Acc Phlebotomy History of Graves' disease Social History Tobacco Use Types Packs/Day Years [...] as of this encounter Miscellaneous Notes * Result Encounter Note - Denice Martinez MD - 08/27/2022 1600 EST Would recheck after 2 months on medicationResult documented in this encounter Plan of Treatment Not on file documented as of this encounter Procedures Procedure Name Priority Date/Time Associated Diagnosis Comments TSH Routine 08/27/2022 16:07 EST History of Graves' disease documented in this encounter Results * (ABNORMAL) TSH (08/27/2022 16:07 EST) TSH 58.60(H) 0.47 - 4.68 mIU/L 08/27/2022 18:08 EST [facility] Blood VENOUS BLOOD / Unknown Venipuncture / Unknown 08/27/2022 16:07 EST 08/27/2022 16:38 EST Narrative [facility] - 08/27/2022 18:08 EST The results of this assay can be falsely lowered due to the consumption of Biotin. Denice Martinez MD CHEMISTRY & BLOOD GA S ORDERABLES [facility] [address] [place] [address] documented in this encounter Visit Diagnoses Diagnosis History of Graves' disease Personal history of other endocrine, metabolic, and immunity disorders documented in this encounter Care Teams Pellet Mill Operator Relationship Specialty Start Date End Date Comfort Zelaya NP [address] [place] [phone] PCP - General Family Medicine - Primary Care 03/08/22 documented as of this encounter
--- OUTSIDE RECORDS SUMMARY | 2024-05-24 15:27 | XMS_ITS | Encounter Summary ---
Author Organization [facility] Address [address] [place] [id number] Care Team Providers Care Maori Physiotherapist Name Role Phone Comfort Zelaya CADD DRAFTER Primary Care Provider [phone] Reason for Visit * Reason Onset Date Comments Pre-visit Orders 03/26/2022 Encounter Details Date Type Department Care Team (Late st Contact Info) Description 03/26/[address] [address] Comfort Zelaya NP [address] [place] [phone] Pre-visit Orders Social History Tobacco Use Types Packs/Day Years [...] encounter Miscellaneous Notes * Telephone Encounter - Anastasia Andrew COA - 03/30/2022 1338 EDT Phone call to patient to let her know test was ordered. Patient was aware and planning to visit lab. * Telephone Encounter - Comfort Zelaya NP - 03/29/2022 1053 EDT Thyroid cascade ordered Comfort Zelaya NP 03/29/2022 10:53 * Telephone Encounter - Margot Rose - 03/26/2022 1546 EDT Patient is requesting orders be placed for thyroid cascade prior to her upcoming appointment with KD on 04/26. documented in this encounter Plan of Treatment Not on file documented as of this encounter Results * (ABNORMAL) THYROID CASCADE (04/25/2022 9:49 EDT) TSH <0.02(L) 0.47 - 4.68 mIU/L 04/25/2022 10:46 EDT [facility] Blood VENOUS BLOOD / Unknown Venipuncture / Unknown 04/25/2022 9:49 EDT 04/25/2022 9:51 EDT Narrative [facility] - 04/25/2022 10:46 EDT NOTE: The results of this assay can be falsely lowered due to the consumption of Biotin. Comfort Zelaya NP CHEMISTRY & BLOOD GA S ORDERABLES [facility] [address] [place] [address] documented in this encounter Visit Diagnoses Diagnosis Hypothyroidism, iatrogenic- Primary Other iatrogenic hypothyroidism documented in this encounter Care Teams Maori Physiotherapist Relationship Specialty Start Date End Date Comfort Zelaya NP [address] [place] [phone] PCP - General Family Medicine - Primary Care 03/08/22 documented as of this encounter
--- OUTSIDE RECORDS SUMMARY | 2024-05-24 15:27 | XMS_ITS | Encounter Summary ---
Author Organization [facility] Address [address] [place] [address] Care Team Providers Care Reinforcing Steel Worker Name Role Phone Shannan Vieyra MD Primary Care Provider Unavail able Encounter Details Date Type Department Care Team (Late st Contact Info) Description 07/31/2018 Results Only [facility] - [place] [phone] Leida Cerda PA-C [address] [facility] [address] [place], [place] [address] Social History Tobacco Use Types Packs/Day Years [...] Procedure Name Priority Date/Time Associated Diagnosis Comments T4, FREE REFLEX Routine 07/31/2018 10:18 EDT documented in this encounter Results * (ABNORMAL) T4, FREE REFLEX (07/31/2018 10:18 EDT) T4, Free Reflex 0.6(L) 0.8 - 2.2 ng/dl 07/31/2018 15:[address] [facility] BLOOD SPECIMEN / Unknown 07/31/2018 10:18 EDT 07/31/2018 14:05 EDT Leida Cerda PA-C CHEMISTRY & BLOOD GAS ORDERABLES [facility] [address] [place] [address] documented in this encounter Visit Diagnoses Not on filedocumented in this encounter Care Teams Reinforcing Steel Worker Relationship Specialty Start Date End Date Shannan Vieyra MD PCP - General 04/08/09 03/15/19 documented as of this encounter
--- OUTSIDE RECORDS SUMMARY | 2024-05-24 15:27 | XMS_ITS | Encounter Summary ---
Author Organization [facility] Address [address] [place] [address] Care Team Providers Care Mat Sewer Name Role Phone Comfort Zelaya NP Primary Care Provider [phone] Reason for Visit * Reason Onset Date Comments Medications Refill 05/19/2022 Encounter Details Date Type Department Care Team (Late st Contact Info) Description 05/19/2022 Telephone [facility] Women's Services - [address] [address] Denice Martinez MD [address] [place] [address], [address] [place] [phone] Medications Refill Social History Tobacco Use Types [...] mouth daily. 84 Tablet 1 05/20/2022 08/27/2022 documented in this encounter Miscellaneous Notes * Telephone Encounter - Comfort Garcia RN - 05/20/2022 0906 EDT Patient in need of OCP refill of micronor 0.35mg. Six month supply sent. Patient will be getting medical records to transfer to this office. Annual Exam scheduled for 08/23/[address] Martinez. * Telephone Encounter - Arianne Ortez - 05/19/2022 1656 EDT Reason for call as described by patient: out of OCP, leaves [facility] tomorrow, 05/20 at 1030 and needs refilled beforehand. Medication(s) Requested: Brandi Preferred Pharmacy: [facility] Is patient out of medication? Yes Is it ok to leave a detailed message? Yes Arianne Ortez 05/19/2022 16:56 documented in this encounter Plan of Treatment Not on file documented as of this encounter Visit Diagnoses Not on filedocumented in this encounter Care Teams Mat Sewer Relationship Specialty Start Date End Date Comfort Zelaya NP [address] [place] [phone] PCP - General Family Medicine - Primary Care 03/08/22 documented as of this encounter
--- OUTSIDE RECORDS SUMMARY | 2024-05-24 15:27 | XMS_ITS | Encounter Summary ---
Author Organization [facility] Address [address] [place] [address] Care Team Providers Care Supervisor Beet End Name Role Phone Comfort Zelaya NP Primary Care Provider [phone] Reason for Referral * Medication Prior Authorization (Urgent) - Authorized Specialty Diagnoses / Procedures [facility] To Contact Obstetrics & Gynecology Diagnoses Hypothyroidism, unspecified type Denice Martinez MD [address] [place] [address] [address] [place] [address] [facility] [address] [place] [address] Referral ID Status Reason Start Date Expiration Date Visits Requested Visits Authorized [id number] Authorized Medication Prior Authorization 09/01/20 22 1 1 Question Answer Medication to be Prior Authorized: armour thyroid Comments The purpose of this request is to inform precertification staff that the requested service needs to be reviewed for prior-authorization. Encounter Details Date Type Department Care Team (Late st Contact Info) Description 09/01/2022 Orders Only [facility] [place] [address] Comfort Garcia RN Hypothyroidism, unspecified type (Primary Dx) Social History Tobacco Use Types [...] as of this encounter Plan of Treatment Scheduled Referrals Name Type Priority Associated Diagnoses Order Schedule AMB MEDICATION PRIOR AUTHORIZATION REQUEST Outpatient Referral Urgent Hypothyroidism, unspecified type Expected: 09/03/2022 (Approximate), Expires: 09/01/2023 documented as of this encounter Visit Diagnoses Diagnosis Hypothyroidism, unspecified type- Primary documented in this encounter Care Teams Supervisor Beet End Relationship Specialty Start Date End Date Comfort Zelaya NP [address] [place] [phone] PCP - General Family Medicine - Primary Care 03/08/22 documented as of this encounter
--- OUTSIDE RECORDS SUMMARY | 2024-05-24 15:27 | XMS_ITS | Encounter Summary ---
Author Organization [facility] Address [address] [place] [address] Care Team Providers Care Single Corner Cutter Name Role Phone Comfort Zelaya NP Primary Care Provider [phone] Reason for Visit * Reason Comments Annual Exam Encounter Details Date Type Department Care Team (Late st Contact Info) Description 10/28/2023 13:30 EST Office Visit [facility] Women's Services - [address] [phone] Denice Martinez MD [address] [facility], [address] [place] [address] Well woman exam with routine gynecological exam (Primary Dx) Social History Tobacco Use Types Packs/Day Years Used Date Smoking Tobacco: Never Smokeless Tobacco: Never Alcohol Use Standard Drinks/Week Comments No 0 (1 standard drink = 0.6 oz pur e alcohol) [facility] Utilities Answer Date Recorded In the past 12 months has [employer] electric, gas, oil, or water [employer] threatened to shut off services in your home? No 10/28/2023 AUDIT-C Answer Date Recorded Q1: How often do you have a drink containing alc ohol? Never 10/28/2023 Average Number of Drinks Not on file 024 Frequency of Binge Drinking Not on file 10/10 Overall Financial Resource Strain (CARDIA) Marisole r Date Recorded How hard is it [...] place to sleep or slept in a detention (including now)? No 10/28/2023 Interpersonal Safety Answer Date Record ed Physically Hurt Never 06/25/2020 Verbally Threaten Never 06/25/2020 Sex and Gender Information Value Date Recorded Sex Assigned at Not on file Gender Identity Not on file Sexual Orientation Not on file documented as of this encounter Last Filed Vital Signs Vital Sign Reading Time Taken Comments Blood Pressure 140/90 10/28/2023 1338 EST Pulse - - Temperature - - Respiratory Rate - - Oxygen Saturation - - Inhaled Oxygen Concentration - - Weight 73.7 kg (162 lb 6.4 oz) 10/28/[address] Height 164.6 cm (5' 4.8) 10/28/2023 1338 EST Body Mass Index 27.19 10/28/2023 1338 EST documented in this encounter Functional Status [...] this encounter Patient Instructions * Patient Instructions* Denice Martinez MD - 10/28/2023 13:30 EST Call for Mammogram [phone] documented in this encounter Ordered Prescriptions Prescription Sig Dispensed Refills Start Date End Da te norethindrone (MICRONOR) 0.35 mg tablet Take 1 Tablet by mouth daily. 84 Tablet 5 10/28/2023 documented in this encounter Progress Notes * Denice Martinez MD - 10/28/2023 1330 EST CC: Annual exam HPI: 43 y.o. woman presents for routine annual exam. Patient reports no concerns. No LMP recorded. (Menstrual status: Amenorhea).. Sexually active with . Using POP for contraception. ROS: PCP adjusted thyroid medication and it is all normal now. ROS Denies bowel or bladder sx. No CP/SOB/leg pain. No abdominal pain, N/V/D/C. No hair loss, or heat/cold intolerance. No musculoskeletal pain. No mood changes. No breast pain or tenderness. Health Maintenance: Reports balanced diet, taking vitamins. Performs regular self-breast exams. Seat belts: Always Colonoscopy: N/A Mammogram: Due Cholesterol: UTD Immunizations: UTD Past Medical History: Diagnosis Date Asthma 09/23/1994 Mild intermittent Biliary calculus 06/25/2013 Evidence of cholelithiasis 06/2013. Cholelithiasis 04/09/2014 Family history of kidney infection personal hx of kidney infections Hypertension Meningitis, unspecified 2004 Thyroid disease Past Surgical History: Procedure Laterality Date ABLATION OF DYSRHYTHMIC FOCUS CARDIAC SURGERY SECTION CHOLECYSTECTOMY, LAPAROSCOPIC 04/19/2014 Current Outpatient Medications Medication EPINEPHrine (EPIPEN) 0.3 mg/0.3 mL injection ibuprofen (MOTRIN) 800 mg tablet methylphenidate HCl 36 mg CR tablet norethindrone (MICRONOR) 0.35 mg tablet Thyroid, Pork, (ARMOUR THYROID) 180 mg tablet No current facility-administered medications for this visit. Allergies Allergen Reactions Penicillins Anaphylaxis Adhesive Had bad reaction to Steri-Strips. Not sure of full allergy. Bee Sting [Hymenoptera Allergenic Extract] Massive swelling Propranolol Shortness Of Breath Sulfa (Sulfonamide Antibiotics) Hives POBHx: PGynHx: Menses: see HPI Contraception: see HPI STDs: N/A Pap: today Social History Socioeconomic History Marital status: Single Spouse name: Not on file Number of children: Not on file Years of education: Not on file Highest education level: Not on file Occupational History Not on file Tobacco Use Smoking status: Never Smokeless tobacco: Never Substance and Sexual Activity Alcohol use: No Drug use: No Sexual activity: Not on file Other Topics Concern Not on file Social History Narrative Not on file Social Determinants of Health Financial Resource Strain: Not on file Food Insecurity: Not on file Transportation Needs: Not on file Physical Activity: Not on file Stress: Not on file Social Connections: Not on file Housing Stability: Not on file Family History Problem Relation Age of Onset Kidney Disease Mother stones Thyroid Disease Mother Thyroid Disease Sister Asthma Sister Anesthesia Problems Father High Blood Pressure Father Diabetes Maternal Grandmother Early Maternal Grandmother Heart Disease Maternal Grandmother High Cholesterol Maternal Grandmother High Blood Pressure Maternal Grandmother Early Paternal Grandfather Heart Disease Paternal Grandfather PE: BP 140/90 Ht 164.6 cm (64.8) Wt 73.7 kg (162 lb 6.4 oz) BMI 27.19 kg/m?? GEN: NAD, pleasant HEENT: No cervical lymphadenopathy. No thyromegaly. ABD: +BS, soft, NT, ND. No masses EXT: NT, No edema, normal ROM. NEURO: AAO x3, normal mood and affect. Program Counselor: BREAST: No palpable masses or tenderness. No visible lesions. PELVIC: Normal appearing external genitalia without notable discharge or lesions. Speculum exam reveals normal appearing cervix without lesions or discharge. No bleeding. Bimanual exam reveals anteverted non-tender uterus, no cervical motion tenderness, no adnexal tenderness or masses. No urethral a bnormalities, tenderness or masses noted A/P: Annual Micronor, OK to continue. Pap today, RTC 2 years. Denice Martinez MD 10/28/2023 13:46 documented in this encounter Miscellaneous Notes * Result Encounter Note - Denice Martinez MD - 10/28/2023 1330 EST Normal Result documented in this encounter Plan of Treatment Not on file documented as of this encounter Procedures Procedure Name Priority Date/Time Associated Diagnosis Comments PAP TEST Routine 10/28/2023 14:05 EST Well woman exam with routine gynecological exam HPV DNA DETECTION WITH GENOTYPING, PCR Today 10/28/2023 14:05 EST Well woman exam with routine gynecological exam documented in this encounter Results * HUMAN PAPILLOMAVIRUS (HPV) DETECTION-HIGH RISK TYPES (10/28/2023 14:05 EST) HPV other High Risk types, PCR Negative Negative 11/14/2023 19:11 [facility] Comment:No E6 or E7 mRNA is detected from HPV types 16,18,31,33,35,39,45,51,52,56,58,59,66, and 68 by chandelier maker mediated amplification. Pap Test CERVIX UTERI STRUCTURE / Unknown 10/28/2023 14:05 EST 11/11/2023 14:23 EST Denice Martinez MD MICROBIOLOGY - GENER AL ORDERABLES Performing Organization Address City/State/[facility] Co de Phone Number [facility] [address] [place] [address] * PAP TEST (10/28/2023 14:05 EST) Specimens A. Cervix and/or Endocervix , ThinPrep Imaging System with Manual Evaluation 11/14/2023 19:11 [facility] Specimen Adequacy Satisfactory for Evaluation - transformation zone component present 11/14/2023 19:11 [facility] General Categorization Negative for intraepithelial lesion or malignancy 11/14/2023 19:11 [facility] Attestation . 11/14/2023 19:11 [facility] at 1911 Clinical History Screening 11/14/19 19:11 EST [facility] HPV The result for the Human Papillomavirus (HPV) Detection-High Risk Types is Negative. No E6 or E7 mRNA is detected from HPV types 16,18,31,33,35,39 ,45,51,52,56,58,5 9,66, and 68 by chandelier maker mediated amplification.Misty ting was performed on specimen [id number] and was resulted on 11/14/2023 1911 EST by LUAN, LAB INSTRUMENT RESULTS IN 11/14/2023 19:11 [facility] Performing Lab [facility] 11/14/2023 19:11 [facility] Scanned Images 11/14/2023 19:11 [facility] Pap Test CERVIX UTERI STRUCTURE / Unknown 10/28/2023 14:05 EST 10/31/2023 12:13 EST Denice Martinez MD PATHOLOGY ORDERABLES [facility] [address] [place] [address] documented in this encounter Visit Diagnoses Diagnosis Well woman exam with routine gynecological exam- Primary Routine gynecological examination documented in this encounter Discontinued Medications Medication Sig Discontinue Reason Start Date End Da te norethindrone (MICRONOR) 0.35 mg tablet Take 1 Tablet by mouth daily. Reorder 10/18/2023 10/28/2023 documented as of this encounter Historical Medications * This list may reflect changes made after this encounter. Medication Sig Dispensed Refills Start Date End Date methylphenidate HCl 36 mg CR tablet Take 54 mg by mouth daily. Daily Max: 54 mg added in this encounter Care Teams Single Corner Cutter Relationship Specialty Start Date End Date Comfort Zelaya NP [address] [place] [phone] PCP - General Family Medicine - Primary Care 03/08/22 documented as of this encounter
--- OUTSIDE RECORDS SUMMARY | 2024-05-24 15:27 | XMS_ITS | Encounter Summary ---
Author Organization [facility] Address [address] [place] [address] Care Team Providers Care Concrete Block Mason Name Role Phone Leida Man PA-C Primary Care Provi melvin Glynn Salazar NP Primary Care Provider [phone] Reason for Visit * Reason Onset Date Comments Medications Refill 08/10/2021 Medications Refill 03/26/2022 Encounter Details Date Type Department Care Team (Late st Contact Info) Description 08/10/2021 Telephone [facility] Family Medicine [address] [address] Leida Man PA-C [address] [facility] [place] [address] [place], [place] [phone] Medications Refill; Medications Refill Social History Tobacco Use Types [...] mouth daily. 30 Tablet 1 03/26/2022 08/27/2022 Thyroid, Pork, (ARMOUR THYROID) 180 mg tabletIndications:Hypothy roidism, iatrogenic Take 1 Tablet by mouth daily. 30 Tablet 08/10/2021 03/26/2022 documented in this encounter Miscellaneous Notes * Telephone Encounter - Candida Tyler RN - 03/26/2022 1617 EDT Lab orders placed. Refill sent to cover until patient is seen. Requested Prescriptions Signed Prescriptions Disp Refills ??? Thyroid, Pork, (ARMOUR THYROID) 180 mg tablet 30 Tablet 1 Sig: Take 1 Tablet by mouth daily. Authorizing Provider: GLYNN SALAZAR Ordering User: CANDIDA TYLER RN * Telephone Encounter - Margot Rose - 03/26/2022 1548 EDT Patient now scheduled with for 04/26. Asking for those orders to be placed as soon as possible and prescription for thyroid medication sent in to last until visit, States she can go have thyroid labs done tomorrow as soon as orders have been placed. * Telephone Encounter - Margot Rose - 08/10/2021 1617 EDT Called patient and left message to call back to schedule * Telephone Encounter - Alexandrea Dwyer RN - 08/10/2021 1555 EDT Pt is due for Thyroid cascade BRUNO, pt also needs f/u thyroid or annual visit. Please help pt arrange. Requested Prescriptions Signed Prescriptions Disp Refills ??? Thyroid, Pork, (ARMOUR THYROID) 180 mg tablet 30 Tablet 0 Sig: Take 1 Tablet by mouth daily. Authorizing Provider: LEIDA MAN Ordering User: ALEXANDREA DWYER documented in this encounter Plan of Treatment Not on file documented as of this encounter Visit Diagnoses Diagnosis Hypothyroidism, iatrogenic Other iatrogenic hypothyroidism documented in this encounter Discontinued Medications Medication Sig Discontinue Reason Start Date End Da te Thyroid, Pork, 180 mg tabletIndications:Hypoth yroidism, iatrogenic Take 180 mg by mouth daily. 06/30/2020 08/10/2021 Thyroid, Pork, (ARMOUR THYROID) 180 mg tabletIndications:Hypoth yroidism, iatrogenic Take 1 Tablet by mouth daily. Reorder 08/10/2021 03/26/2022 documented as of this encounter Orders Lab Orders Without Results Count Last Ordered D ate First Ordered Date TSH 1 03/26/2022 documented in this encounter Care Teams Concrete Block Mason Relationship Specialty Start Date End Date Leida Man PA-C PCP - General 03/16/19 03/07/22 Glynn Salazar NP [address] [place] [phone] PCP - General Family Medicine - Primary Care 03/08/22 documented as of this encounter
--- OUTSIDE RECORDS SUMMARY | 2024-05-24 15:27 | XMS_ITS | Encounter Summary ---
Author Organization [facility] Address [address] [place] [address] Care Team Providers Care Blacksmith Assistant Name Role Phone Shannan Vieyra MD Primary Care Provider Unavail able Encounter Details Date Type Department Care Team (Late st Contact Info) Description 08/07/2018 Orders Only [facility] Medicine - [place] [id number] Leida Cerda PA-C 402 [facility] [address] [place], [place] [phone] Hypothyroidism, iatrogenic (Primary Dx) Social History Tobacco [...] mg by mouth daily. 90 Tab 4 08/07/2018 11/20/2019 documented in this encounter Plan of Treatment Not on file documented as of this encounter Visit Diagnoses Diagnosis Hypothyroidism, iatrogenic- Primary Other iatrogenic hypothyroidism documented in this encounter Discontinued Medications Medication Sig Discontinue Reason Start Date End Da te Thyroid, Pork, (ARMOUR THYROID) 180 mg tabletIndications:Hypothy roidism, iatrogenic Take 180 mg by mouth daily. 07/24/2018 08/07/2018 documented as of this encounter Care Teams Blacksmith Assistant Relationship Specialty Start Date End Date Shannan Vieyra MD PCP - General 04/08/09 03/15/19 documented as of this encounter
--- OUTSIDE RECORDS SUMMARY | 2024-05-24 15:27 | XMS_ITS | Encounter Summary ---
Author Organization [facility] Address [address] [place] [address] Care Team Providers Care Zinc Plate Grainer Name Role Phone Comfort Zelaya NP Primary Care Provider [phone] Encounter Details Date Type Department Care Team (Late st Contact Info) Description 04/25/2023 Orders Only [facility] [place] [address] Comfort Garcia, DAXA Bee sting (Primary Dx) Social History Tobacco Use Types [...] to 1 dose (Bee Allergy). 2 Each 04/25/2023 documented in this encounter Plan of Treatment Not on file documented as of this encounter Visit Diagnoses Diagnosis Bee sting- Primary Toxic effect of venom documented in this encounter Discontinued Medications Medication Sig Discontinue Reason Start Date End Da te EPINEPHrine (EPIPEN) 0.3 mg/0.3 mL injectionIndications:Bee sting Inject 0.3 mL into the muscle once as needed for up to 1 dose (Bee Allergy). Reorder 04/15/2020 04/25/2023 documented as of this encounter Care Teams Zinc Plate Grainer Relationship Specialty Start Date End Date Comfort Zelaya NP [address] [place] [phone] PCP - General Family Medicine - Primary Care 03/08/22 documented as of this encounter
--- OUTSIDE RECORDS SUMMARY | 2024-05-24 15:28 | XMS_ITS | Encounter Summary ---
Author Organization [facility] Address [address] [place] [address] Care Team Providers Care Weather Algorithm Scientist Name Role Phone Shannan Vieyra MD Primary Care Provider Unavail able Encounter Details Date Type Department Care Team (Late st Contact Info) Description 09/02/2014 Phlebotomy Only [facility] - [address] [address] Cherry Pitter, Outpatient Graves disease; Other iatrogenic hypothyroidism; Encounter for vitamin deficiency screening; HTN (hypertension) Social History Tobacco Use Types Packs/Day Years Used Date Smoking Tobacco: Never Smokeless Tobacco: Never Alcohol Use Standard Drinks/Week Comments No 0 (1 standard drink = 0.6 oz pur e alcohol) Sex and Gender Information Value Date Recorded Sex Assigned at Not on file Gender Identity Not on file Sexual Orientation Not on file documented as of this encounter Plan of Treatment Not on file documented as of this encounter Procedures Procedure Name Priority Date/Time Associated Diagnosis Comments THYROID CASCADE Routine 09/02/2014 15:45 EST Graves disease VITAMIN D (25,OH) Routine 09/02/2014 15: 45 EST Encounter for vitamin deficiency screening Other iatrogenic hypothyroidism BASIC METABOLIC PANEL (BMP) Routine 09/02/2014 15:45 EST HTN (hypertension) documented in this encounter Results * BASIC METABOLIC PANEL (09/02/2014 15:45 EST) Sodium 140 136 - 145 mEq/L 09/02/2014 18:[address] [facility] Potassium 4.4 3.5 - 5.0 mEq/L 09/02/2014 18:36 [facility] Chloride 102 96 - 110 mEq/L 09/02/2014 18:36 [facility] CO2 25 24 - 32 mEq/L 09/02/2014 18:36 [facility] BUN 19 10 - 26 mg/dl 09/02/2014 18:36 [facility] Creatinine 0.81 0.52 - 1.04 mg/dl 09/02/2014 18:36 [facility] GFR, Calculated >60 >60 ml/min/1.7 3m2 09/02/2014 18:36 [facility] Calcium 10.2 8.5 - 10.5 mg/dl 09/02/2014 18:36 [facility] Calculated Calcium 10.2 8.5 - 10.5 mg/dl 09/02/2014 18:36 [facility] Glucose, Serum 76 70 - 100 mg/dl 09/02/2014 18:36 [facility] Fasting? YES 09/02/2014 15:45 [facility] Blood specimen (specimen) BLOOD SPECIMEN / Unknown 09/02/2014 15:45 EST 09/02/2014 18:01 EST Shannan Vieyra MD CHEMISTRY & BLOOD GA S ORDERABLES [facility] [address] [place] [address] * VITAMIN D (25,OH) (09/02/2014 15:45 EST) 25OH Vitamin D Tot 21.5 ng/ml 09/03/2014 11:45 [facility] Comment: Reference Range: Deficient = <10 ng/ml Insufficient = 10-30 ng/ml Sufficient = 30-100 ng/ml Toxic = >100 ng/ml Blood specimen (specimen) BLOOD SPECIMEN / Unknown 09/02/2014 15:45 EST 09/02/2014 18:01 EST Shannan Vieyra MD CHEMISTRY & BLOOD GA S ORDERABLES [facility] [address] [place] [address] * (ABNORMAL) THYROID CASCADE (09/02/2014 15:45 EST) TSH 25.78(H) 0.35 - 5.00 uIU/ml 09/02/2014 20:[address] [facility] Comment: TSH cascade is not recommended for patients in which pituitary or hypothalamic disorders are suspected. Blood specimen (specimen) BLOOD SPECIMEN / Unknown 09/02/2014 15:45 EST 09/02/2014 18:01 EST Shannan Vieyra MD CHEMISTRY & BLOOD GA S ORDERABLES Performing Organization Address [facility] Co de Phone Number [facility] [address] [place] [address] documented in this encounter Visit Diagnoses Diagnosis Graves disease Toxic diffuse goiter without mention of thyrotoxic crisis or storm Other iatrogenic hypothyroidism Encounter for vitamin deficiency screening Screening for other and unspecified endocrine, nutritional, metabolic, and immunity disorders HTN (hypertension) Unspecified essential hypertension documented in this encounter Care Teams Weather Algorithm Scientist Relationship Specialty Start Date End Date Shannan Vieyra MD PCP - General 04/08/09 03/15/19 documented as of this encounter
--- OUTSIDE RECORDS SUMMARY | 2024-05-24 15:28 | XMS_ITS | Encounter Summary ---
Author Organization [facility] Address [address] [place] [address] Care Team Providers Care Molecular Physicist Name Role Phone Shannan Vieyra MD Primary Care Provider Unavail Leida Jackson PA-C Primary Care Provi melvin Comfort Zelaya NP Primary Care Provider [phone] Reason for Visit * Reason Comments Other Encounter Details Date Type Department Care Team (Late st Contact Info) Description 10/15/2013 Refill [facility] Family Medicine [facility] [address] [place], [place] [phone] Leida Cerda PA-C 402 [facility] [place] [address] [place], [place] [phone] Other Social History Tobacco Use Types Packs/Day Years Used Date Smoking Tobacco: Never Alcohol Use Standard Drinks/Week Comments No 0 (1 standard drink = 0.6 oz pur e alcohol) Sex and Gender Information Value Date Recorded Sex Assigned at Not on file Gender Identity Not on file Sexual Orientation Not on file documented as of this encounter Ordered Prescriptions Prescription Sig Dispensed Refills Start Date End Da te Thyroid, Pork, (ARMOUR THYROID) 90 mg tablet Take 1 Tab by mouth daily. 90 Tab 0 10/16/2013 02/20/2014 lisinopril-hydrochlorothia zide (PRINZIDE, ZESTORETIC) 20-12.5 mg per tablet Take 1 Tab by mouth daily. 90 Tab 0 10/16/2013 02/20/2014 documented in this encounter Miscellaneous Notes * Telephone Encounter - Aliza Nino, RN - 10/16/2013 0749 EST Refill request for [place] Thyroid and Prinzide received from [facility] in [place]. Doris due due for her labs. 90 days of Rx approved. Standing orders place in [facility]. Message will be sent to [facility] to call patient and schedule her for Fasting labs. Aliza Nino RN documented in this encounter Plan of Treatment Not on file documented as of this encounter Results * BASIC METABOLIC PANEL (09/02/2014 15:45 EST) Sodium 140 136 - 145 mEq/L 09/02/2014 18:36 [facility] Potassium 4.4 3.5 - 5.0 mEq/L 09/02/2014 18:36 [facility] Chloride 102 96 - 110 mEq/L 09/02/2014 18:36 [facility] CO2 25 24 - 32 mEq/L 09/02/2014 18:36 [facility] BUN 19 10 - 26 mg/dl 09/02/2014 18:36 [facility] Creatinine 0.81 0.52 - 1.04 mg/dl 09/02/2014 18:36 [facility] GFR, Calculated >60 >60 ml/min/1.7 3m2 09/02/2014 18:36 [facility] Calcium 10.2 8.5 - 10.5 mg/dl 09/02/2014 18:36 [facility] Calculated Calcium 10.2 8.5 - 10.5 mg/dl 09/02/2014 18:36 [facility] Glucose, Serum 76 70 - 100 mg/dl 09/02/2014 18:36 [facility] Fasting? YES 09/02/2014 15:45 [facility] Blood specimen (specimen) BLOOD SPECIMEN / Unknown 09/02/2014 15:45 EST 09/02/2014 18:01 EST Shannan Vieyra MD CHEMISTRY & BLOOD GA S ORDERABLES Performing Organization Address [facility]/ZIP Co de Phone Number [facility] [address] [place] [address] * VITAMIN D (25,OH) (09/02/2014 15:45 EST) 25OH Vitamin D Tot 21.5 ng/ml 09/03/2014 11:45 EST [facility] Comment: Reference Range: Deficient = <10 ng/ml Insufficient = 10-30 ng/ml Sufficient = 30-100 ng/ml Toxic = >100 ng/ml Blood specimen (specimen) BLOOD SPECIMEN / Unknown 09/02/2014 15:45 EST 09/02/2014 18:01 EST Shannan Vieyra MD CHEMISTRY & BLOOD GA S ORDERABLES Performing Organization Address [facility] Co de Phone Number [facility] [address] [place] [address] documented in this encounter Visit Diagnoses Diagnosis Other iatrogenic hypothyroidism- Primary Encounter for vitamin deficiency screening Screening for other and unspecified endocrine, nutritional, metabolic, and immunity disorders HTN (hypertension) Unspecified essential hypertension documented in this encounter Discontinued Medications Medication Sig Discontinue Reason Start Date End Da te thyroid (ARMOUR THYROID) 15 mg tabletIndications:Other iatrogenic hypothyroidism Take 1 Tab by mouth daily. Reorder 11/06/2012 10/16/2013 lisinopril-hydrochlorothiaz peewee (PRINZIDE, ZESTORETIC) 20-12.5 mg per tabletIndications:Hypertens ion Take 1 Tab by mouth daily. Reorder 06/14/2012 10/15/2013 thyroid (ARMOUR) 90 mg tabletIndications:Other iatrogenic hypothyroidism Take 1 Tab by mouth daily. (Cancel order/refills on 120 mg dose) Reorder 06/19/2012 10/15/2013 documented as of this encounter Orders Lab Orders Without Results Count Last Ordered D ate First Ordered Date THYROID CASCADE 1 10/16/2013 documented in this encounter Care Teams Molecular Physicist Relationship Specialty Start Date End Date Shannan Vieyra MD PCP - General 04/08/09 03/15/19 Leida Cerda PA-C PCP - General 03/16/19 03/07/22 Comfort Zelaya NP [address] [place] [phone] PCP - General Family Medicine - Primary Care 03/08/22 documented as of this encounter
--- OUTSIDE RECORDS SUMMARY | 2024-05-24 15:28 | XMS_ITS | Encounter Summary ---
Author Organization [facility] Address [address] [place] [address] Care Team Providers Care Senior Clinical Research Scientist Name Role Phone Shannan Vieyra MD Primary Care Provider Unavail able Reason for Visit * Reason Onset Date Comments Post-op Problem 04/29/2014 Gallbladder surg namrata last Tuesday. A couple of incisions are very red, and there is drainage from belly button area. Encounter Details Date Type Department Care Team (Late st Contact Info) Description 04/29/2014 Telephone [facility] General Surgery - [facility] [address] [place], [place] [phone] Ashwin Maradiaga MD [address] [place] [address], [address] [place] [phone] Post-op Problem ( Gallbladder surgery last Tuesday. A couple of incisions are very red, and there is drainage from belly button area.) Social History Tobacco Use Types Packs/Day Years [...] encounter Miscellaneous Notes * Telephone Encounter - Megan Groves RN - 04/29/2014 5148 EDT Phone call to patient. She is s/p Laparoscopic cholecystectomy with intraoperative cholangiogram on04/19/14. She reports that her abdomen is very red and extremely itchy, plus her belly button is oozing. She reports no fever. Made appointment to see Dr. Maradiaga tomorrow 04/30/14. documented in this encounter Plan of Treatment Not on file documented as of this encounter Visit Diagnoses Not on filedocumented in this encounter Care Teams Senior Clinical Research Scientist Relationship Specialty Start Date End Date Shannan Vieyra MD PCP - General 04/08/09 03/15/19 documented as of this encounter
--- OUTSIDE RECORDS SUMMARY | 2024-05-24 15:28 | XMS_ITS | Encounter Summary ---
Author Organization [facility] Address [address] [place] [id number] Care Team Providers Care Last Repairer Helper Name Role Phone Shannan Vieyra MD Primary Care Provider Unavail able Reason for Visit * Reason Comments Otalgia Encounter Details Date Type Department Care Team (Latest Contact Info) Description 02/17/2015 18:21 EDT - 02/17/2015 20:10 EDT Hospital Encounter [facility] - [address] [id number] Miguel Rogel MD [address] [place] [phone] Otitis media, right (Primary Dx) Discharge Disposition: Home or Self Care Social [...] Sign Reading Time Taken Comments Blood Pressure 129/98 02/17/2015 1857 EDT Pulse 99 02/17/2015 185 EDT Temperature 37 ??C (98.6 ??F) 02/17/2015 1857 EDT Respiratory Rate 18 02/17/2015 1857 EDT Oxygen Saturation 99% 02/17/2015 1922 EDT Inhaled Oxygen Concentration - - Weight - - Height - - Body Mass Index - - documented in this encounter Discharge Diagnoses Diagnosis 382.9 OTITIS MEDIA NOS[ICD-9-CM] documented in this encounter Discharge Instructions * Attachments The following attachments cannot be sent through Care Everywhere. * OTITIS MEDIA ([place]) documented in this encounter Medications at Time of Discharge Medication Sig Dispensed Refills Start Date End Date ibuprofen (MOTRIN) 800 mg tablet Take 1 Tablet by mouth every 6 hours as needed for Pain. azithromycin (ZITHROMAX Z-DANITA) 250 mg tablet Take 2 tabs today and 1 tab on days 2 through 5 6 Tab 0 02/17/2015 02/21/2015 doxycycline (VIBRA-TABS) 100 mg tabletIndications:Celluli tis Take 1 Tab by mouth 2 times daily for 7 days. 14 Tab 0 05/21/2013 02/26/2016 EPINEPHrine (EPIPEN) 0.3 mg/0.3 mL (1:1,000) injectionIndications:Bee sting Inject 0.3 mL into the muscle once as needed for up to 1 dose (allergic reaction). 1 Syringe 6 09/04/2014 08/24/2016 levonorgestrel-ethinyl estradiol (SEASONALE) 0.15-30 mg-mcg per tablet Take 1 Tab by mouth daily. 06/25/2020 lisinopril-hydrochlorothi azide (PRINZIDE, ZESTORETIC) 20-12.5 mg per tabletIndications:Hyperte nsive disorder Take 1 Tab by mouth daily. 90 Tab 4 09/04/2014 12/01/2015 pseudoephedrine (SUDAFED) 60 mg tablet Take 60 mg by mouth every 6 hours. Reported on 08/24/2016 08/24/2016 thyroid, Pork, (ARMOUR THYROID) 120 mg tabletIndications:Graves' disease,Other iatrogenic hypothyroidism Take 1 Tab by mouth daily. 90 Tab 4 09/04/2014 09/22/2015 documented as of this encounter Ordered Prescriptions Prescription Sig Dispensed Refills Start Date End Da te azithromycin (ZITHROMAX Z-DANITA) 250 mg tablet Take 2 tabs today and 1 tab on days 2 through 5 6 Tab 0 02/17/2015 02/21/2015 documented in this encounter Discharge Disposition Disposition Code Departure Means Destination Home or Self Care documented in this encounter ED Notes * Miguel Rogel MD - 02/17/2015 2106 EDT DOS: 02/17/2015 Chief Complaint Patient presents with ??? Otalgia The patient is a 35 y.o. female who presents today with Otalgia HPI Comments: Cc right ear pain Patient reports sinus pain/pressure/greenish sinus drainage,sweats and chills, starting three weeksago, and bilateral ear pain (right >left) starting two days ago. Has been using sudafed, ibuprofen, tylenol allergy with no relief. Pain is moderate. The history is provided by the patient. Otalgia Associated symptoms: congestion and cough Associated symptoms: no diarrhea, no fever, no rash, no sore throat and no vomiting Review of Systems Constitutional: Negative for fever and chills. HENT: Positive for congestion and ear pain. Negative for sinus pressure and sore throat. Eyes: Negative for discharge and redness. Respiratory: Positive for cough. Negative for chest tightness, shortness of breath and wheezing. Cardiovascular: Negative for chest pain. Gastrointestinal: Negative for nausea, vomiting and diarrhea. Musculoskeletal: Negative for back pain. Skin: Negative for rash. Neurological: Negative for dizziness and light-headedness. No current facility-administered medications for this encounter. Current Outpatient Prescriptions Medication Sig Dispense Refill ??? azithromycin (ZITHROMAX Z-DANITA) 250 mg tablet Take 2 tabs today and 1 tab on days 2 through 5 6 Tab 0 ??? EPINEPHrine (EPIPEN) 0.3 mg/0.3 mL (1:1,000) injection Inject 0.3 mL into the muscle once as needed for up to 1 dose (allergic reaction). 1 Syringe 6 ??? ibuprofen (MOTRIN) 800 mg tablet Take 800 mg by mouth every 6 hours as needed for Pain ??? levonorgestrel-ethinyl estradiol (SEASONALE) 0.15-30 mg-mcg per tablet Take 1 Tab by mouth daily. ??? lisinopril-hydrochlorothiazide (PRINZIDE, ZESTORETIC) 20-12.5 mg per tablet Take 1 Tab by mouthdaily. 90 Tab 4 ??? pseudoephedrine (SUDAFED) 60 mg tablet Take 60 mg by mouth every 6 hours ??? thyroid, Pork, (ARMOUR THYROID) 120 mg tablet Take 1 Tab by mouth daily. 90 Tab 4 Allergies Allergen Reactions ??? Penicillins Anaphylaxis ??? Adhesive Had bad reaction to Steri-Strips. Not sure of full allergy. ??? Bee Sting [Hymenoptera Allergenic Extract] Massive swelling ??? Propranolol Shortness Of Breath ??? Sulfa (Sulfonamide Antibiotics) Hives Patient Active Problem List Diagnosis Date Noted ??? Cholelithiasis 04/09/2014 ??? Biliary calculus 06/25/2013 Evidence of cholelithiasis 06/2013. ??? Other iatrogenic hypothyroidism 08/14/2010 ??? Graves' disease 11/14/2009 S/p radioactive iodine 10 mCi, 10/17 ??? Hypertensive disorder 11/14/2009 ??? Acute pyelonephritis 08/25/2005 Evidence of right renal scarring on CT 06/2013. ??? 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 Cervical dysplasia 04/02/2003 ??? Contraceptive management 09/18/1998 Past Medical History Diagnosis Date ??? Meningitis, unspecified 2003 ??? Thyroid disease ??? Hypertension ??? Family history of kidney infection personal hx of kidney infections ??? Asthma 09/23/1994 Mild intermittent History Substance Use Topics ??? Smoking status: Never Smoker ??? Smokeless tobacco: Never Used ??? Alcohol Use: No Family History Problem Relation Age of Onset [...] Paternal Grandfather ??? Heart Disease Paternal Grandfather BP 129/98 Pulse 99 Temp(Src) 98.6 ??F (37 ??C) (Tympanic) Resp 18 SpO2 99% Physical Exam Constitutional: She is oriented to person, place, and time. She appears well- developed and well-nourished. No distress. HENT: Head: Atraumatic. Right Ear: External ear and ear canal normal. Tympanic membrane is injected and bulging. Left Ear: Tympanic membrane, external ear and ear canal normal. Mouth/Throat: Uvula is midline, oropharynx is clear and moist and mucous membranes are normal. No uvula swelling. Eyes: Conjunctivae are normal. Neck: Normal range of motion. Neck supple. Pulmonary/Chest: Effort normal. No respiratory distress. Lymphadenopathy: She has no cervical adenopathy. Neurological: She is alert and oriented to person, place, and time. Skin: Skin is warm and dry. She is not diaphoretic. Psychiatric: She has a normal mood and affect. Her behavior is normal. Consult orders: None PCP: Shannan Vieyra MD No results found for this visit on 02/17/15. No orders to display Radiology orders: None Imaging Results None No orders to display Procedures Course: A medical screening exam was performed. Disposition: Discharged The patient's pain was managed to an adequate level weighing risk vs. benefit of further medications. Upon departure from [facility], the patient's pain was 6 on a zero to ten scale. Condition at departure from the [facility] : Stable Final diagnoses: Otitis media, right Right sided otitis media in the setting of recent URI symptoms. Patient has a penicillin and Bactrim allergy. She was treated with a course of Zithromax. Reviewed symptomatic treatment and indications for follow up. See discharge instructions. No supervision required. [facility] 02/17/2015 21:09 * Mitzi Estebna RN - 02/17/2015 1900 EDT Patient reports sinus pain/pressure/greenish sinus drainage,sweats and chills, starting three weeksago, and bilateral ear pain (right >left) starting two days ago. Has been using sudafed, ibuprofen, tylenol allergy with no relief. Denies fatigue, cough,sob, nausea,vomiting,diarrhea,sore throat. documented in this encounter Plan of Treatment Not on file documented as of this encounter Visit Diagnoses Diagnosis Otitis media, right- Primary Unspecified otitis media documented in this encounter Historical Medications * This list may reflect changes made after this encounter. Medication Sig Dispensed Refills Start Date End Date ibuprofen (MOTRIN) 800 mg tablet Take 1 Tablet by mouth every 6 hours as needed for Pain. pseudoephedrine (SUDAFED) 60 mg tablet Take 60 mg by mouth every 6 hours. Reported on 08/24/2016 08/24/2016 added in this encounter Care Teams Last Repairer Helper Relationship Specialty Start Date End Date Shannan Vieyra MD PCP - General 04/08/09 03/15/19 documented as of this encounter
--- OUTSIDE RECORDS SUMMARY | 2024-05-24 15:28 | XMS_ITS | Encounter Summary ---
Author Organization [facility] Address [address] [place] [id number] Care Team Providers Care Tie In Hand Name Role Phone Shannan Vieyra MD Primary Care Provider Unavail able Reason for Visit * Reason Onset Date Comments Returning Call 08/26/2016 Encounter Details Date Type Department Care Team (Late st Contact Info) Description 08/26/[address] [phone] Shannan Vieyra MD Returning Call Social History Tobacco Use Types Packs/Day Years [...] iatrogenic Take 180 mg by mouth daily. 30 Tab 11 08/27/2016 12/23/2017 documented in this encounter Miscellaneous Notes * Telephone Encounter - Leida Cerda PA - 08/27/2016 1649 EST Discussed elevated TSH and the need to increase her thyroid replacement. Currently taking armour thyroid at 120 mg daily. Will re check TSH in 3 mo * Telephone Encounter - Leida Cerda PA - 08/27/2016 1325 EST LMTCB * Telephone Encounter - Milagros Parrish - 08/26/2016 1615 EST Pt states she is returning a call from Sallie Cerda ELIGIBILITY COUNSELOR.Pt states it was regarding dosage. Please call back to discuss. documented in this encounter Plan of Treatment Not on file documented as of this encounter Visit Diagnoses Diagnosis Hypothyroidism, iatrogenic- Primary Other iatrogenic hypothyroidism documented in this encounter Discontinued Medications Medication Sig Discontinue Reason Start Date End Da te thyroid, Pork, (ARMOUR THYROID) 120 mg tabletIndications:Graves' disease Take 1 Tab by mouth daily. Dose adjustment 08/24/2016 08/27/2016 documented as of this encounter Care Teams Tie In Hand Relationship Specialty Start Date End Date Shannan Vieyra MD PCP - General 04/08/09 03/15/19 documented as of this encounter
--- OUTSIDE RECORDS SUMMARY | 2024-05-24 15:28 | XMS_ITS | Encounter Summary ---
Author Organization [facility] Address [address] [place] [address] Care Team Providers Care Incident Response Coordinator Name Role Phone Isela Winter MD Primary Care Provider Unavail able Reason for Referral * (Routine) - Closed Specialty Diagnoses / Procedures Referred By Contac t Referred To Contact Jose Martin Perez MD [phone] [address] Referral ID Status Reason Start Date Expiration Date V isits Requested Visits Authorized [id number] Closed Specialty Services Required 04/19/2014 1 1 Comments Please make an appointment with your physician Dr. Maradiaga in 4 week(s). Call your physician immediately if you have any fevers greater than 102.5, drainage from your wound that is not clear or looks infected, persistent bleeding, increasing abdominal pain, problems urinating, or persistent nausea/vomiting. You should be aware that you may have right shoulder pain after surgery and that this will progressively go away. This is called 'referred pain' and is from the area of the gallbladder. It can also be caused by gas that may be trapped under the diaphragm from the surgery, especially if it was performed laparoscopically through mini-incisions. This gas will progressively get reabsorbed by your body. * (Routine) - Closed Specialty Diagnoses / Procedures Referred By Contac t Referred To Contact Jose Martin Perez MD [address] [address] Referral ID Status Reason Start Date Expiration Date V isits Requested Visits Authorized [id number] Closed Specialty Services Required 04/19/2014 1 1 Comments We are currently collecting quality data on patients having surgery. You may receive a phone call, email, and/or letter about your surgery asking you a series of follow up questions to evaluate specifics aspects of your care. Thank you for your participation. * (Routine) - Closed Specialty Diagnoses / Procedures Referred By Contac t Referred To Contact Jose Martin Perez MD [address] [address] Referral ID Status Reason Start Date Expiration Date V isits Requested Visits Authorized [id number] Closed Specialty Services Required 04/19/2014 1 1 Comments See Mouna Bonner MD. Please call for an appointment. [phone] Encounter Details Date Type Department Care Team (Late st Contact Info) Description 04/19/2014 7:59 EDT - 04/19/2014 16:02 EDT Hospital Encounter [facility] Perioperative Services- [address] [address] Mouna Maradiaga MD [address] [facility], [address] [place] [id number] Cholelithiasis (Primary Dx) Discharge Disposition: Home or Self [...] Sign Reading Time Taken Comments Blood Pressure 130/70 04/19/2014 1530 EDT Pulse - - Temperature 35.9 ??C (96.6 ??F) 04/19/2014 1500 EDT Respiratory Rate 14 04/19/2014 1530 EDT Oxygen Saturation 99% 04/19/2014 1500 EDT Inhaled Oxygen Concentration - - Weight 79.4 kg (175 lb) 04/15/2014 08 EDT Height 162.6 cm (5' 4) 04/15/2014825 EDT Body Mass Index 30.04 04/15/2014 08 EDT documented in this encounter Discharge Diagnoses Diagnosis 574.20 CHOLELITHIASIS NOS[ICD-9-CM] documented in this encounter Medications at Time of Discharge Medication Sig Dispensed Refills Start Date End Date doxycycline (VIBRA-TABS) 100 mg tabletIndications:Cellu litis Take 1 Tab by mouth 2 times daily for 7 days. 14 Tab 0 05/21/2013 02/26/2016 EPINEPHrine (EPIPEN) 0.3 mg/0.3 mL (1:1,000) injectionIndications:Be e sting Inject 0.3 mL into the muscle once as needed (allergic reaction) for 1 dose. 1 Syringe 6 05/21/2013 09/04/2014 HYDROcodone-acetaminoph en (NORCO) 5-325 mg tablet Take 1 Tab by mouth every 6 hours as needed for Pain. 15 Tab 0 04/19/2014 09/04/2014 levonorgestrel-ethinyl estradiol (SEASONALE) 0.15-30 mg-mcg per tablet Take 1 Tab by mouth daily. 06/25/2020 lisinopril-hydrochlorot hiazide (PRINZIDE, ZESTORETIC) 20-12.5 mg per tablet Take 1 Tab by mouth daily. 90 Tab 0 02/20/2014 08/20/2014 thyroid, Pork, (ARMOUR THYROID) 15 mg tablet Take 1 Tab by mouth daily OVER DUE FOR THYROID FUNCTION LABS. 90 Tab 0 02/20/2014 08/20/2014 Thyroid, Pork, (ARMOUR THYROID) 90 mg tablet Take 1 Tab by mouth daily. 90 Tab 0 02/20/2014 08/20/2014 documented as of this encounter Ordered Prescriptions Prescription Sig Dispensed Refills Start Date End Da te HYDROcodone-acetaminophen (NORCO) 5-325 mg tablet Take 1 Tab by mouth every 6 hours as needed for Pain. 15 Tab 0 04/19/2014 09/04/2014 documented in this encounter Discharge Disposition Disposition Code Departure Means Destination Home or Self Care documented in this encounter Progress Notes * Tracy Patton RN - 04/15/2014 0848 EDT Marcello Leung has been instructed as follows regarding medication administration for the day of the scheduled procedure. Date of Surgery: 04-19-14 Instructions for Taking Medications Day of Surgery Medication Last Dose Hold DOS Take DOS EPINEPHrine (EPIPEN) 0.3 mg/0.3 mL (1:1,000) injection HYDROmorphone (DILAUDID) 2 mg tablet x levonorgestrel-ethinyl estradiol (SEASONALE) 0.15-30 mg-mcg per tablet x lisinopril-hydrochlorothiazide (PRINZIDE, ZESTORETIC) 20-12.5 mg per tablet Pt would like to hold dos x thyroid, Pork, (ARMOUR THYROID) 15 mg tablet x Thyroid, Pork, (ARMOUR THYROID) 90 mg tablet x documented in this encounter H&P Notes * Jose Martin Perez MD - 04/19/2014 0940 EDT The preoperative history and physical which was performed within 30 days of this procedure has been reviewed and the clinically appropriate elements of the physical examination have been repeated. There are no changes to the documented history and physical or if so such changes are documented below Jose Martin Perez MD 04/19/2014 9:40 0962 Source Note - Mouna Maradiaga MD - 04/09/2014 17:25 EDT Subjective: Patient ID: Marcello Leung is an 34 y.o. female. Chief Complaint Patient presents with ??? New Patient Visit cholelistiasis on ct HPI she has been having attacks of left sided abdominal pain lasting from 1 to a few hours. Often come on after eating or at night. Had bad attack last month and was found to have an elevated lipase which has subsequently normalized. LFTs have been normal. She had an ultrasound that showed gallstones. No jaundice or dark urine. No pruritus. H/O Grave's disease for which she took radioactive iodine. Voice problems since. 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 Shrunken kidney felt to be due to scarring and pyeloephritis. Patient Active Problem List Diagnosis ??? Asthma ??? Contraceptive management ??? Cervical dysplasia ??? Blindness ??? Acute pyelonephritis ??? Graves' disease ??? Hypertension ??? Other iatrogenic hypothyroidism ??? Biliary calculus ??? Cholelithiasis Past Medical History Diagnosis Date ??? Meningitis, unspecified 2003 ??? Thyroid disease ??? Hypertension ??? Family history of kidney infection personal hx of kidney infections Past Surgical History Procedure Laterality Date ??? section ??? Ablation of dysrhythmic focus ??? Cardiac surgery Family History Problem Relation Age of Onset [...] Paternal Grandfather ??? Heart Disease Paternal Grandfather Social History Substance Use Topics ??? Smoking status: Never Smoker ??? Smokeless tobacco: Never Used ??? Alcohol Use: No Current Outpatient Prescriptions on File Prior to Visit Medication Sig Dispense Refill ??? EPINEPHrine (EPIPEN) 0.3 mg/0.3 mL (1:1,000) injection Inject 0.3 mL into the muscle once as needed (allergic reaction) for 1 dose. 1 Syringe 6 ??? HYDROmorphone (DILAUDID) 2 mg tablet Take 1-2 Tabs by mouth every 6 hours as needed for Pain. Earliest Fill Date: 03/01/14 10 Tab 0 ??? levonorgestrel-ethinyl estradiol (SEASONALE) 0.15-30 mg-mcg per tablet Take 1 Tab by mouth daily. ??? lisinopril-hydrochlorothiazide (PRINZIDE, ZESTORETIC) 20-12.5 mg per tablet Take 1 Tab by mouthdaily. 90 Tab 0 ??? thyroid, Pork, (ARMOUR THYROID) 15 mg tablet Take 1 Tab by mouth daily OVER DUE FOR THYROID FUNCTION LABS. 90 Tab 0 ??? Thyroid, Pork, (ARMOUR THYROID) 90 mg tablet Take 1 Tab by mouth daily. 90 Tab 0 No current facility-administered medications on file prior to visit. Allergies Allergen Reactions ??? Penicillins Anaphylaxis ??? Bee Sting (Hymenoptera Allergenic Extract) Massive swelling ??? Propranolol ??? Sulfa (Sulfonamide Antibiotics) Hives ROS - See HPI. A 12 system review is otherwise negative Objective: BP 119/90 Pulse 89 Ht 162.6 cm (64) Wt 79.379 kg (175 lb) BMI 30.02 kg/m2 Physical Exam HEENT: No scleral icterus Neck: No mass or adenopathy. Chest: Clear Heart: Regular Abdomen: Soft and non-tender. No mass or organomegaly. Extrem: No deformity. No edema. Ultrasonography-stones in GB. Normal ducts. Assessment: Atypical biliary colic with history of pancreatitis secondary to gallstones. Plan: We recommended laparoscopic cholecystectomy with cholangiogram,. I gave her written literature thatI reviewed with her.and we discussed the procedure with her at length. She is aware of potential complications. We obtained written conset to day. Marcello was seen today for new patient visit. Diagnoses and associated orders for this visit: Cholelithiasis - Full Code; Standing - Place Sequential Compression Device; Standing - Insert Peripheral IV; Standing - lactated ringers (LR) infusion; Inject 25 mL/hr into the vein continuous. - Status: Outpatient Surgical OP Bed/Services; Standing - EKG 12 lead - clindamycin (CLEOCIN) IVPB 900 mg; Inject 50 mL into the vein PRE-OP ONCE. - Nursing Communication - Patient is not on Aspirin ; Standing - Nursing Communication: Patient is not on a beta seth; Standing - No Pre-op Pharmacologic DVT prophlaxis required; Standing Mouna Maradiaga MD documented in this encounter Procedure Notes * Jose Martin Perez MD - 04/19/2014 1202 EDT Surgery Brief Operative Note Department of General Surgery Surgeon: Dr. Mouna Maradiaga MD FACS Cable Television Line Technician(s): Jose Martin Perez MD Preoperative diagnosis / Indication: Cholelithiasis, Gallstone Pancreatitis Postoperative diagnosis: Same Procedure:Laparoscopic Cholecystectomy with Intraoperative Cholangiogram Anesthesia: General endotracheal anesthesia Findings: Anatomy identified, Cystic duct clipped and normal IOC performed. Normal CBD filling. Gallbladder removed with small amount of bile spillage. Gallbladder fossa, Dickerson's pouch irrigated with sterile saline. Fascial closure performed and skin closed with monocryl. Fluids: 900 cc Estimated blood loss: 25 cc Urine output: No painter Specimens: Gallbladder for routine pathology Drains/Packs/Foreign materials retained: none Complications: none Condition: Good or Stable Disposition: awakened from anesthesia, extubated and taken to the recovery room in a stable condition, having suffered no apparent untoward event. Discharge instructions: Home from PACU with Vicodin, Motrin PRN for pain. To f/u with Dr. Hiren alejo. Jose Martin Perez 0962 documented in this encounter Nursing Notes * BROILER SUPERVISOR, SCAN 2 - 04/24/2014 1312 EDT documented in this encounter OR Notes * OR PreOp - BROILER SUPERVISOR, SCAN 2 - 04/25/2014 1305 EDT * Anesthesia Preprocedure Evaluation - BROILER SUPERVISOR, SCAN 2 - 04/25/2014 1305 EDT * OR PreOp - BROILER SUPERVISOR, SCAN 2 - 04/24/2014 1312 EDT * OR Surgeon - Mouna Maradiaga MD - 04/19/2014 1402 EDT OPERATIVE REPORT SERVICE DATE: 04/19/2014 PREOPERATIVE DIAGNOSES: Biliary colic, cholelithiasis, chronic cholecystitis. POSTOPERATIVE DIAGNOSES: Biliary colic, cholelithiasis, chronic cholecystitis. PROCEDURE: Laparoscopic cholecystectomy with intraoperative cholangiogram. SURGEON: Mouna Maradiaga MD, FACS CASHIER SELF SERVICE GASOLINE: Jose Martin Perez MD ANESTHESIA: General endotracheal. INDICATIONS: This lady presented with episodes of abdominal pain consistent with biliary colic. Ultrasonography revealed multiple gallstones. OPERATIVE FINDINGS: Inspection of the abdomen was normal. The gallbladder was distended. There was a stone right at the neck of the gallbladder. The cystic duct was small. Intraoperative cholangiogram revealed good filling of the right and left hepatic radicals and flow into the duodenum and no filling defects and normal caliber ducts. We assessed this as normal. The liver appeared normal. NARRATIVE: The patient was taken to the operating room on 04/19/2014, placed on the operating tablein a supine position. A complete WHO checklist was performed. SCDs were placed prior to induction of general endotracheal anesthesia. She received preoperative antibiotics. The abdomen was prepped with ChloraPrep and draped in the usual fashion. We used 10 mL of 0.5% Marcaine to infiltrate our 4 trocar sites. We started with a 5 mm incision at the lower edge of the umbilicus. A Veress needle was inserted and pneumoperitoneum was obtained to a pressure of 15 mmHg by continuous insufflation with carbon dioxide. This was maintained throughout the procedure. A 5 mm endoscope was then passed under direct vision using an Optiview trocar. We inspected the abdomen and placed the other trocars underdirect vision. An 11 mm trocar was placed just below the xiphoid in the midline and 5 mm trocars were placed 3 fingerbreadths below the costal margin, midclavicular and anterior axillary lines respectively. The gallbladder was grasped with atraumatic grasping forceps and the patient was placed in reverse Trendelenburg position and rolled to the left to facilitate exposure. We easily identified a large stone in the neck of the gallbladder at its junction with the cystic duct. This was dissected free with blunt dissection and a clip was placed at the junction of the cystic duct and the neck of the gallbladder. A small incision was made in the proximal cystic duct and a cholangiogram was obtained using a small ureteral catheter placed through an Liu clamp. This was done under fluoroscopic guidance. Once we were satisfied that the cholangiogram was normal, this apparatus was removed and the distal cystic duct was then doubly clipped. Cystic artery was then divided between clips and the gallbladder was removed from the gallbladder fossa using electrocautery. We did get a small hole in the gallbladder and leaked some sludge and fluid, but no stones. The gallbladder was removed from the abdomen in an Endocatch bag through the 11 mm trocar site, which we had to dilate slightly in order to remove the gallbladder. Once the gallbladder was removed, we irrigated around the liver with copious saline, using almost 2 L to be sure that we irrigated away all that sludge and any blood. There was a little bleeding from the gallbladder bed that was easily controlled with electrocautery. Our clips were normal right at the cystic duct stumps and the cystic artery stumps. There was no bleeding or bile leak. Satisfied there were no problems, the trocars were removed under direct vision and the pneumoperitoneum evacuated. The 11 mm trocar site was closed at the fascial level with a gbovon-[id number]-ufqgd 0 Vicryl suture. Skin at all trocar sites was closed with subcuticular 4-0 Monocryl with Steri-Strips and a sterile gauze and Tegaderm dressing applied. Blood loss was minimal. She received 850 mL of lactated Ringer's. We did not monitor urine output. We submitted the gallbladder and stonesas a specimen. She was extubated in the operating room and transferred to the postanesthesia care unit in stable and satisfactory condition. I was present and scrubbed for the entire procedure. Unless otherwise noted, there were no complications, no blood loss, no cultures obtained, no specimens removed, and no drains retained. Mouna Maradiaga MD FACS 12 01 PM / Mouna Bustamante. MD Hiren FACS mn Confirmation: [id number] Dictation ID: [id number] cc:Isela Perez MD * Anesthesia Procedure Notes - BROILER SUPERVISOR, SCAN 2 - 04/19/2014 1222 EDT documented in this encounter Plan of Treatment Scheduled Referrals Name Type Priority Associated Diagnoses Order Schedule PROVIDER FOLLOW-UP INSTRUCTIONS Outpatient Referral Routine Ordered: 04/19/2014 PROVIDER FOLLOW-UP INSTRUCTIONS Outpatient Referral Routine Ordered: 04/19/2014 PROVIDER FOLLOW-UP INSTRUCTIONS Outpatient Referral Routine Ordered: 04/19/2014 documented as of this encounter Procedures Procedure Name Priority Date/Time Associated Diagnosis Comments ECG REPORT - SCANNED 04/24/2014 13:12 EDT SURGICAL PATHOLOGY Routine 04/19/2014 13 :35 EDT INTRAOP CHOLANGIOGRAM Routine 04/19/2014 11:17 EDT documented in this encounter Results * ECG REPORT - SCANNED (04/24/2014 13:12 EDT) 04/24/2014 13:1 2 EDT Scan 2 Candy Depositing Machine Operator PROCEDURE/MINOR TERRENCE GICAL ORDERABLES * SURGICAL PATHOLOGY (04/19/2014 13:35 EDT) Pathology Report: SURGICAL PATHOLOGY REPORT Reports generated via electronic interface contain original data; however they are lacking the format of the original report. Caution should be taken when reading/interpreti ng unformatted reports. Name: ? MARCELLO LEUNG ? Accession #: ? [id number] ? : ? 1980 (Age: 34) ??F ? Collect Date: ? 04/19/2014 ? Location: ? [facility] ? Receive Date: ? 04/19/2014 ? Provider: MOUNA MARADIAGA MD Copy to: ISELA WINTER MD ? Final Pathologic Diagnosis: GALLBLADDER, CHOLECYSTECTOMY: - ??Chronic cholecystitis and cholelithiasis. Document reviewed and electronically signed by: CHARMAINE HIGGINBOTHAM MD Report ??Date: 04/24/2014 17:17 By the signature above, the attending physician certifies that he/she has personally conducted a gross and/or microscopic examination of the described specimens and rendered or confirmed the above diagnosis. Specimen(s) Received: Gallbladder and contents Clinical History: Biliary colic; cholelithiasis Gross Description: ? Received in normal saline labelled with proper patient identification (initials C, B) and gallbladder and contents is a partially disrupted gallbladder (9.5 x 3.0 x 2.0 cm) with an attached segment of cystic duct (0.2 cm in length x 0.2 cm in diameter). ? The serosa is pink-purple and smooth. The mucosa is yellow-green and velvety and the wall is 0.1 cm in thickness. The cystic duct lumen is stapled. The cystic duct margin is inked black. Multiple yellow-green smooth surfaced choleliths are present, measuring 7.0 x 2.0 x 1.5 cm in aggregate. ? Two client representative sections and the inked en face cystic duct margin are submitted in 1. Dr. Peace 04/19/2014 02:25 PM End of Report GREYSON JOHNSON 04/19/2014 13:3 5 EDT 04/19/2014 13:35 EDT Mouna Maradiaga MD PATHOLOGY ORDERABLES Performing Organization Address City/State/[facility] Co de Phone Number [facility] [address] [place] [address] * INTRAOP CHOLANGIOGRAM (04/19/2014 11:17 EDT) Anatomical Region Laterality Modality Other 04/19/2014 11:1 7 EDT 04/19/2014 11:41 EDT Narrative 04/19/2014 11:41 EDT INTRAOP CHOLANGIOGRAM ??04/19/2014 11:17 AM Clinical History/Comments: Cholelithiasis ??S/P cholangiogram. Findings: ?? Multiple images from an intraoperative cholangiogram show cystic duct catheterization. Of the visualized ductal system, no filling defects are seen. There is flow into the duodenum. Procedure Note 04/19/2014 INTRAOP CHOLANGIOGRAM 04/19/2014 11:17 AM Clinical History/Comments: Cholelithiasis S/P cholangiogram. Findings: Multiple images from an intraoperative cholangiogram show cystic duct catheterization. Of the visualized ductal system, no filling defects are seen. There is flow into the duodenum. Mouna Maradiaga MD IMG DIAGNOSTIC IMAGI NG ORDERABLES documented in this encounter Visit Diagnoses Diagnosis Cholelithiasis- Primary Calculus of gallbladder without mention of cholecystitis or obstruction Cholelithiasis Calculus of gallbladder without mention of cholecystitis or obstruction documented in this encounter Administered Medications Inactive Administered Medications - up to 3 most recent administrations Medication Order MAR Action Action Date Dose Rate Site clindamycin (CLEOCIN) IVPB 900 mg 900 mg, intravenous, Administer over 30 Minutes, PRE-OP ONCE, 1 dose, On Tue04/19/14 at 0945, Routine, Pre-Op DOS Rx Approved Given by Other 04/19/2014 10:40 EDT 900 mg fentaNYL citrate (PF) 50 mcg/mL injection 25-100 mcg 25-100 mcg, intravenous, EVERY 5 MIN PRN, Starting on Tue04/19/14 at 1156, Until Tue04/19/14 at 1804, Pain, Routine, Recovery (only) Given 04/19/2014 13:14 EDT 50 mcg lactated ringers (LR) infusion 25 mL/hr, intravenous, CONTINUOUS, Starting on Tue04/19/14 at 0945, Until Tue04/19/14 at 1804, Routine, Pre-Op DOS Rx Approved New Bag 04/19/2014 9:36 EDT 25 mL/hr 25 mL/hr lactated ringers (LR) infusion at 75 mL/hr, intravenous, CONTINUOUS, Starting on Tue04/19/14 at 1215, Until Tue04/19/14 at 1804, Routine, Recovery (only) Rate Documented 04/19/2014 12:28 EDT 75 mL/hr oxyCODONE (ROXICODONE) 5 mg immediate release tablet 1 dose, Starting on Tue04/19/14 at 1313, Until Tue04/19/14 at 1315 Given 04/19/2014 13:15 EDT 5 mg documented in this encounter Discontinued Medications Medication Sig Discontinue Reason Start Date End Da te HYDROmorphone (DILAUDID) 2 mg tablet Take 1-2 Tabs by mouth every 6 hours as needed for Pain. Earliest Fill Date: 03/01/14 03/01/2014 04/19/2014 documented as of this encounter Active and Recently Administered Medications Times are shown in EDT. Scheduled Medication Order 04/17/2014 04/18/2014 04/19/2014 clindamycin (CLEOCIN) IVPB 900 mg (COMPLETED) 900 mg, intravenous, Administer over 30 Minutes, PRE-OP ONCE, 1 dose, On Tue04/19/14 at 0945, Routine, Pre-Op DOS Rx Approved 1040 (Given by Other - Provider: Jolynn Soto RN - Comment: Given in OR by Pete Azevedo MD) Continuous Medication Order 04/17/2014 04/18/2014 04/19/2014 lactated ringers (LR) infusion (CANCELED) 25 mL/hr, intravenous, CONTINUOUS, Starting on Tue04/19/14 at 0945, Until Tue04/19/14 at 1804, Routine, Pre-Op DOS Rx Approved 0936 (New Bag - Prov ider: Janeth Olivarez RN) lactated ringers (LR) infusion (CANCELED) at 75 mL/hr, intravenous, CONTINUOUS, Starting on Tue04/19/14 at 1215, Until Tue04/19/14 at 1804, Routine, Recovery (only) 1228 (Rate Documente d - Provider: Maria Guadalupe Uribe RN) PRN Medication Order 04/17/2014 04/18/2014 04/19/2014 fentaNYL citrate (PF) 50 mcg/mL injection 25-100 mcg (CANCELED) 25-100 mcg, intravenous, EVERY 5 MIN PRN, Starting on Tue04/19/14 at 1156, Until Tue04/19/14 at 1804, Pain, Routine, Recovery (only) 1314 (Given - Provid er: Maria Guadalupe Choi RN) No Frequency Medication Order 04/17/2014 04/18/2014 04/19/2014 oxyCODONE (ROXICODONE) 5 mg immediate release tablet (COMPLETED) 1 dose, Starting on Tue04/19/14 at 1313, Until Tue04/19/14 at 1315 1315 (Given - Provid er: Maria Guadalupe Choi RN - Comment: received iv tylenol intra op.) documented in this encounter Orders Medications Ordered That David ht Not Have Been Administered Count Last Ordered Date First Ordered Date atropine 0.1 mg/mL syringe 0.5 mg 1 014 diphenhydrAMINE (BENADRYL) i njection 6.25 mg 1 04/19/2014 metoCLOPramide (REGLAN) injection 10 mg 1 0 04/19/2014 nalOXone (NARCAN) injection 0.2 mg 1 2013 ondansetron (PF) (ZOFRAN) injection 2 mg 1 04/19/2014 oxyCODONE (ROXICODONE) immed iate release tablet 5-10 mg 1 04/19/2014 oxyCODONE-acetaminophen (PER COCET) 5-325 mg per tablet 1-2 Tab 1 04/19/2014 Diet Count Last Ordered Date First Orde red Date DISCHARGE DIET 1 04/19/2014 Nursing Count Last Ordered Date First Orde red Date ACTIVITY INSTRUCTIONS 1 04/19/2014 INSERT PERIPHERAL IV 1 04/19/[address] PL[address] SEQUENTIAL COMPRESSION DEVICE 1 04/19 WOUND CARE INSTRUCTIONS 1 04/19/2014 Admission Count Last Ordered Date First Orde red Date STATUS: OUTPATIENT SURGICAL OP BED/SERVICES 1 04/19/2014 Transfer Count Last Ordered Date First Orde red Date NOTIFY PPS PACU PATIENT DISCHARGE 1 014 NOTIFY PPS PATIENT ARRIVAL IN PACU 1 2013 Discharge Count Last Ordered Date First Orde red Date DISCHARGE PATIENT 1 04/19/2014 Legal Count Last Ordered Date First Orde red Date MISCELLANEOUS DISCHARGE INSTRUCTIONS 04/09 documented in this encounter Care Teams Incident Response Coordinator Relationship Specialty Start Date End Date Isela Winter MD PCP - General 04/08/09 03/15/19 documented as of this encounter
--- OUTSIDE RECORDS SUMMARY | 2024-05-24 15:28 | XMS_ITS | Encounter Summary ---
Author Organization [facility] Address [address] [place] [address] Care Team Providers Care Drier Operator Name Role Phone Shannan Vieyra MD Primary Care Provider Unavail able Encounter Details Date Type Department Care Team (Latest Contact Info) Description 09/02/2014 15:38 EST - 09/02/2014 23:59 EST Hospital Encounter [address] [address] Unknown, Provider, Discharge Disposition: Home or Self Care Social [...] on file documented as of this encounter Medications at [...] Tab by mouth daily. 90 Tab 0 08/20/2014 09/04/2014 thyroid, Pork, (ARMOUR THYROID) 15 mg tablet Take 1 Tab by mouth daily OVER DUE FOR THYROID FUNCTION LABS. 90 Tab 0 08/20/2014 09/04/2014 Thyroid, Pork, (ARMOUR THYROID) 90 mg tablet Take 1 Tab by mouth daily. 90 Tab 0 08/20/2014 09/04/2014 documented as of this encounter Discharge Disposition Disposition Code Departure Means Destination Home or Self Skilled Nursing documented in this encounter Plan of Treatment Not on file documented as of this encounter Procedures Procedure Name Priority Date/Time Associated Diagnosis Comments T4, FREE REFLEX Routine 09/02/2014 15:45 EST documented in this encounter Results * (ABNORMAL) T4, FREE REFLEX (09/02/2014 15:45 EST) Free T4 0.6(L) 0.8 - 1.8 ng/dl 09/02/2014 20:50 EST [facility] BLOOD SPECIMEN / Unknown 09/02/2014 15:45 EST 09/02/2014 18:01 EST Shannan Vieyra MD CHEMISTRY & BLOOD GA S ORDERABLES [facility] [address] [place] [id number] documented in this encounter Visit Diagnoses Not on filedocumented in this encounter Care Teams Drier Operator Relationship Specialty Start Date End Date Shannan Vieyra MD PCP - General 04/08/09 03/15/19 documented as of this encounter
--- OUTSIDE RECORDS SUMMARY | 2024-05-24 15:28 | XMS_ITS | Encounter Summary ---
Author Organization [facility] Address [address] [place] [address] Care Team Providers Care Machine Molder Name Role Phone Shannan Vieyra MD Primary Care Provider Unavail able Encounter Details Date Type Department Care Team (Late st Contact Info) Description 08/24/2016 Results Only [facility] Family Medicine - [place] [id number] Leida Cerda PA-C [address] [facility] [address] [place], [place] [address] Social History Tobacco Use Types Packs/Day Years [...] Associated Diagnosis Comments T4, FREE REFLEX Routine 08/24/2016 14:51 EST documented in this encounter Results * (ABNORMAL) T4, FREE REFLEX (08/24/2016 14:51 EST) Free T4 0.6(L) 0.8 - 1.8 ng/dl 08/24/2016 21:51 EST [facility] BLOOD SPECIMEN / Unknown 08/24/2016 14:51 EST 08/24/2016 19:34 EST Leida Cerda PA-C CHEMISTRY & BLOOD GAS ORDERABLES [facility] [address] [place] [address] documented in this encounter Visit Diagnoses Not on filedocumented in this encounter Care Teams Machine Molder Relationship Specialty Start Date End Date Shannan Vieyra MD PCP - General 04/08/09 03/15/19 documented as of this encounter
--- OUTSIDE RECORDS SUMMARY | 2024-05-24 15:28 | XMS_ITS | Encounter Summary ---
Author Organization [facility] Address [address] [place] [address] Care Team Providers Care Nursery Helper Name Role Phone Shannan Vieyra MD Primary Care Provider Unavail able Reason for Visit * Reason Onset Date Comments Medications Refill 12/01/2015 Encounter Details Date Type Department Care Team (Late st Contact Info) Description 12/01/2015 Refill [facility] Medicine [address] [address] Shannan Vieyra MD Medications Refill Social History Tobacco Use Types [...] Dispensed Refills Start Date End Da te lisinopril-hydrochlorothia zide (PRINZIDE, ZESTORETIC) 20-12.5 mg per tablet Take 1 Tab by mouth daily. MUST BE SEEN IN OFFICE 90 Tab 0 12/01/2015 04/15/2016 documented in this encounter Miscellaneous Notes * Telephone Encounter - Dionna Mcguire - 12/01/2015 0816 EST Pt needs refill done this AM pt is leaving to go out of town at 10am today. * Telephone Encounter - Frances Christensen - 12/01/2015 0729 EST Medication(s) Requested: Lisinopril-Hydrochlorothiazide 20-12.5 takes one tab by mouth daily;dispense;90;rf;4 Pharmacy: [facility] Last Refill Date: 09.04.14 Last Visit Date: 09.04.14 Next Visit Date: Visit date not found Is patient out of medication? yes Frances Christensen 12/01/2015 7:29 documented in this encounter Plan of Treatment Not on file documented as of this encounter Visit Diagnoses Not on filedocumented in this encounter Discontinued Medications Medication Sig Discontinue Reason Start Date End Da te lisinopril-hydrochlorothi azide (PRINZIDE, ZESTORETIC) 20-12.5 mg per tabletIndications:Hyperte nsive disorder Take 1 Tab by mouth daily. Reorder 09/04/2014 12/01/2015 documented as of this encounter Care Teams Nursery Helper Relationship Specialty Start Date End Date Shannan Vieyra MD PCP - General 04/08/09 03/15/19 documented as of this encounter
--- OUTSIDE RECORDS SUMMARY | 2024-05-24 15:28 | XMS_ITS | Encounter Summary ---
Author Organization [facility] Address [address] [place] [address] Care Team Providers Care Technical Support Director Name Role Phone Shannan Vieyra MD Primary Care Provider Unavail able Reason for Visit * Reason Onset Date Comments Tick Removal 02/21/2016 Encounter Details Date Type Department Care Team (Late st Contact Info) Description 02/21/[address] [phone] Pranay Cardenas MD [address] [place] [phone] Tick Removal Social History Tobacco Use Types Packs/Day Years [...] encounter Miscellaneous Notes * Telephone Encounter - Pranay Cardenas MD - 02/21/20161926 EDT Called by patient regarding tick bite. She does not know how long it was there nor does she know how long it fell off. It fell off on its own. The bite was to the back of her arm so she could not see. Her daughter noted that she has the classic bulls eye lesion. The area is hot to touch. Prescribedher doxycycline prophylaxis 200 mg now. She was advised to follow up with her PCP early next week. She may need the full treatment of doxycycline for Lyme disease pending evaluation. The patient exhibited understanding of these instructions. documented in this encounter Plan of Treatment Not on file documented as of this encounter Visit Diagnoses Not on filedocumented in this encounter Care Teams Technical Support Director Relationship Specialty Start Date End Date Shannan Vieyra MD PCP - General 04/08/09 03/15/19 documented as of this encounter
--- OUTSIDE RECORDS SUMMARY | 2024-05-24 15:28 | XMS_ITS | Encounter Summary ---
Author Organization [facility] Address [address] [place] [address] Care Team Providers Care Textile Bag Sewer Name Role Phone Shannan Vieyra MD Primary Care Provider Unavail able Reason for Visit * Reason Onset Date Comments Appointment Related 04/17/2014 Encounter Details Date Type Department Care Team (Late st Contact Info) Description 04/17/[address] [phone] Shannan Vieyra MD Appointment Related Social History Tobacco Use Types [...] encounter Miscellaneous Notes * Telephone Encounter - Shikha Garza - 04/17/2014 1037 EDT Patient no showed for her consultation appointment today with . Per protocol, they will not be scheduling her again. If Dr. Vieyra feels that she really needs to be seen there and needs a 2nd chance, she will need to call and talk to one of the providers. documented in this encounter Plan of Treatment Not on file documented as of this encounter Visit Diagnoses Not on filedocumented in this encounter Care Teams Textile Bag Sewer Relationship Specialty Start Date End Date Shannan Vieyra MD PCP - General 04/08/09 03/15/19 documented as of this encounter
--- OUTSIDE RECORDS SUMMARY | 2024-05-24 15:28 | XMS_ITS | Encounter Summary ---
Author Organization [facility] Address [address] [place] [address] Care Team Providers Care Creative/Art Director Name Role Phone Shannan Vieyra MD Primary Care Provider Unavail able Reason for Visit * Reason Comments New Patient Visit cholelistiasis on ct Encounter Details Date Type Department Care Team (Late st Contact Info) Description 04/09/2014 11:30 EDT Office Visit [facility] General Surgery - [address] [phone] Mouna Maradiaga MD [address] [place] [address], [address] [place] [phone] Cholelithiasis (Primary Dx) Discharge Disposition: Auto Discharge Social History Tobacco [...] Sign Reading Time Taken Comments Blood Pressure 119/90 04/09/2014 1137 EDT Pulse 89 04/09/2014 1137 EDT Temperature - - Respiratory Rate - - Oxygen Saturation - - Inhaled Oxygen Concentration - - Weight 79.4 kg (175 lb) 04/09/2014 1137 EDT Height 162.6 cm (5' 4) 04/09/2014 1137 EDT Body Mass Index 30.04 04/09/2014 1137 EDT documented in this encounter Discharge Diagnoses Diagnosis 574.20 CHOLELITHIASIS NOS[ICD-9-CM] documented in this encounter Discharge Disposition Disposition Code Departure Means Destination Auto Discharge documented in this encounter Progress Notes * Mouna Maradiaga MD - 04/09/2014 1725 EDT Subjective: Patient ID: Doris Kerr is an 34 y.o. female. Chief Complaint [...] complications. We obtained written conset to day. Doris was seen today for new patient visit. [...] Mouna Maradiaga MD documented in this encounter Plan of Treatment Not on file documented as of this encounter Procedures Procedure Name Priority Date/Time Associated Diagnosis Comments ECG REPORT - SCANNED 04/11/2014 10:27 EDT EKG 12-LEAD Routine 04/09/2014 12:32 EDT Cholelithiasis documented in this encounter Results * ECG REPORT - SCANNED (04/11/2014 10:27 EDT) 04/11/2014 10:2 7 EDT Scan 2 Triage Rn PROCEDURE/MINOR TERRENCE GICAL ORDERABLES * EKG 12-LEAD (04/09/2014 12:32 EDT) 04/09/2014 12:3 2 EDT Narrative FA EKG - 04/10/2014 10:21 EDT ?[facility] ? Test Date: ?2014-04-09 Pat Name: ? DORIS KERR ? Department: ?? [facility] Gen Surg ? Room: ? Gender: ? F ?Crawler Tractor Operator: ?? [id number] : ?1980 ? Requested By: MOUNA MARADIAGA MD Order Number: [id number] ? Reading MD: ?? CLARY MCCOY MD ? Measurements Intervals ?[place] ? Rate: ? 71 ? P: ?13 [place]: ? 182 ?QRS: ?93 QRSD: ? 79 ? T: ?39 QT: ? 346 ? QTc: ?377 ? Interpretive Statements SINUS RHYTHM BORDERLINE RIGHT AXIS DEVIATION Compared to ECG 09/25/2007 11:27:30 Sinus rhythm now present I reviewed the tracing and agreed or edited the report. Electronically Signed On 04-10-14 10:21:00 EDT by CLARY MCCOY MD. Procedure Note Clary Mccoy MD - 04/10/2014 [facility] Test Date: 2014-04-09 Pat Name: DORIS KERR Department: [facility] Gen Surg Room: Gender: F Crawler Tractor Operator: [id number] : 1980 Requested By: MOUNA MARADIAGA MD Order Number: [id number] Reading MD: CLARY MCCOY MD Measurements Intervals [place] Rate: 71 P: 13 [place]: 182 QRS: 93 QRSD: 79 T: 39 QT: 346 QTc: 377 Interpretive Statements SINUS RHYTHM BORDERLINE RIGHT AXIS DEVIATION Compared to ECG 09/25/2007 11:27:30 Sinus rhythm now present I reviewed the tracing and agreed or edited the report. ElectronicallySigned On 04-10-14 10:21:00 EDT by CLARY MCCOY MD. Mouna Maradiaga MD CARDIAC ECG ORDERABL ES REPLACED BY [facility] EKG documented in this encounter Visit Diagnoses Diagnosis Cholelithiasis- Primary Calculus of gallbladder without mention of cholecystitis or obstruction documented in this encounter Care Teams Creative/Art Director Relationship Specialty Start Date End Date Shannan Vieyra MD PCP - General 04/08/09 03/15/19 documented as of this encounter
--- OUTSIDE RECORDS SUMMARY | 2024-05-24 15:28 | XMS_ITS | Encounter Summary ---
Author Organization [facility] Address [address] [place] [address] Care Team Providers Care Drupal Architect Name Role Phone Shannan Vieyra MD Primary Care Provider Unavail able Reason for Visit * Reason Onset Date Comments Post-ED Follow Up 10/29/2013 Encounter Details Date Type Department Care Team (Late st Contact Info) Description 10/29/[address] [address] Aliza Nino RN Post-ED Follow Up Social History Tobacco Use Types Packs/Day Years Used Date Smoking Tobacco: Never Alcohol Use Standard Drinks/Week Comments No 0 (1 standard drink = 0.6 oz pur e alcohol) Sex and Gender Information Value Date Recorded Sex Assigned at Not on file Gender Identity Not on file Sexual Orientation Not on file documented as of this encounter Miscellaneous Notes * Telephone Encounter - Aliza Nino RN - 10/30/2013 1006 EST 10/30/13 1009 - Care and Concern call to Doris. No answer. Cell phone did not identify Doris as the truckload owner operator of the device. There for I left a brief message asking that Doris call our office to schedule a follow up visit with her provider. I've provided our office phone number for patient's convenience. Aliza Nino RN documented in this encounter Plan of Treatment Not on file documented as of this encounter Visit Diagnoses Not on filedocumented in this encounter Care Teams Drupal Architect Relationship Specialty Start Date End Date Shannan Viyera MD PCP - General 04/08/09 03/15/19 documented as of this encounter
--- OUTSIDE RECORDS SUMMARY | 2024-05-24 15:28 | XMS_ITS | Encounter Summary ---
Author Organization [facility] Address [address] [place] [address] Care Team Providers Care Poolroom/Poolhall Manager Name Role Phone Shannan Vieyra MD Primary Care Provider Unavail able Reason for Visit * Reason Comments Nasal Congestion x1 week, right ear p ain, dry cough and facial pressure Medication Management pt here to discuss thyroid medication, no longer taking blood pressure medications as well, pt checking her bp on her own Encounter Details Date Type Department Care Team (Late st Contact Info) Description 08/24/2016 14:30 EST Office Visit [facility] Family Medicine - [place] [phone] [place], [place] [phone] Leida Cerda PA-C [address] [facility] [address] [place], [place] [address] Graves' disease (Primary Dx); Bee sting, undetermined intent, sequela; Acute suppurative otitis media of right ear without spontaneous rupture of tympanic membrane, recurrence not specified; Essential hypertension Discharge Disposition: Auto Discharge Social [...] Sign Reading Time Taken Comments Blood Pressure 120/98 08/24/2016 1415 EST Pulse 72 08/24/2016 1415 EST Temperature 37.3 ??C (99.1 ??F) 08/24/2016 1415 EST Respiratory Rate - - Oxygen Saturation - - Inhaled Oxygen Concentration - - Weight - - Height - - Body Mass Index - - documented in this encounter Discharge Diagnoses Diagnosis E05.00 Thyrotoxicosis with diffuse goiter without thyrotoxic crisis or storm-E05.00[ICD-10-CM] documented in this encounter Ordered Prescriptions Prescription Sig Dispensed Refills Start Date End Da te azithromycin (ZITHROMAX) 250 mg tabletIndications:Acute suppurative otitis media of right ear without spontaneous rupture of tympanic membrane, recurrence not specified Take two tablets today, then 1 tablet daily until gone (x 4 days) 6 Tab 08/24/2016 07/31/2018 EPINEPHrine (EPIPEN) 0.3 mg/0.3 mL injectionIndications:Bee sting, undetermined intent, sequela Inject 0.3 mL into the muscle once as needed for up to 1 dose (allergic reaction). 1 Syringe 6 08/24/2016 08/24/2016 thyroid, Pork, (ARMOUR THYROID) 120 mg tabletIndications:Graves ' disease Take 1 Tab by mouth daily. 30 Tab 12 08/24/2016 08/27/2016 documented in this encounter Discharge Disposition Disposition Code Departure Means Destination Auto Discharge documented in this encounter Progress Notes * Leida Cerda PA - 08/24/2016 1430 EST Subjective: Patient ID: Doris Kerr is an 36 y.o. female. Chief Complaint Patient presents with ??? Nasal Congestion x1 week, right ear pain, dry cough and facial pressure ??? Medication Management pt here to discuss thyroid medication, no longer taking blood pressure medications as well, pt checking her bp on her own HPI F/u on thyroid and BP. Has been taking armour thyroid for over 5 yrs. Prior attempt at synthroid, even brand name, failed. She didn't feel well on it--had acne, hair loss, weight gain and just felt awful. Feels great with the armour thyroid and tolerates it well. Ran out about 3 days ago. Insurance may not cover this type. Stopped BP med when on vacation. Continues to monitor home BPs and is getting 120s/70s consistently. Since October has cut out sugars and processed foods and has lost 29#. Feels great and wants to stay off BP meds for now. Has a cold and congestion for several days now. 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 No fever. Dry cough. No SOB or wheeze. Some sore throat. Aches at the onset. Right ear is quite painful and won't pop.Has been using tylenol cold. Patient Active Problem List Diagnosis ??? Contraceptive management ??? Cervical dysplasia ??? Blindness ??? Acute pyelonephritis ??? Graves' disease ??? Hypertensive disorder ??? Hypothyroidism, iatrogenic ??? Biliary calculus ??? Cholelithiasis Past Medical History Diagnosis Date ??? Asthma 09/23/1994 Mild intermittent ??? Family history of kidney infection personal [...] tablet Take 1 Tab by mouth daily. No current facility-administered medications on file prior [...] tobacco: Never Used ??? Alcohol use No ROS - See HPI Objective: Visit Vitals ??? BP (!) 120/98 (BP Cuff Location: Right arm, Patient Position: Sitting, BP Cuff Sizes: Adult, regular) ??? Pulse 72 ??? Temp 37.3 ??C (99.1 ??F) (Tympanic) ??? LMP 08/24/2016 (Approximate) feels BP is elevated today due to cold med use Physical Exam Constitutional: She appears well-developed and well-nourished. No distress. HENT: Right Ear: Ear canal normal. Tympanic membrane is injected and erythematous. A middle ear effusion (air bubbles noted) is present. Left Ear: Tympanic membrane and ear canal normal. Mouth/Throat: Uvula is midline, oropharynx is clear and moist and mucous membranes are normal. Sinus pressure Neck: Neck supple. No thyromegaly present. Cardiovascular: Normal rate, regular rhythm and normal heart sounds. Pulmonary/Chest: Effort normal and breath sounds normal. She has no wheezes. She has no rhonchi. She has no rales. Lymphadenopathy: She has no cervical adenopathy. Neurological: She is alert. Skin: Skin is warm and dry. Psychiatric: She has a normal mood and affect. Her behavior is normal. Nursing note and vitals reviewed. Assessment: Encounter Diagnoses Name Primary? Graves' disease Yes ??? Bee sting, undetermined intent, sequela ??? Acute suppurative otitis media of right ear without spontaneous rupture of tympanic membrane, recurrence not specified ??? Essential hypertension Plan: Doris was seen today for nasal congestion and medication management. Diagnoses and all orders for this visit: Graves' disease - thyroid, Pork, (ARMOUR THYROID) 120 mg tablet; Take 1 Tab by mouth daily. - Thyroid Stevens Bee sting, undetermined intent, sequela - EPINEPHrine (EPIPEN) 0.3 mg/0.3 mL injection; Inject 0.3 mL into the muscle once as needed for upto 1 dose (allergic reaction). Acute suppurative otitis media of right ear without spontaneous rupture of tympanic membrane, recurrence not specified - azithromycin (ZITHROMAX) 250 mg tablet; Take two tablets today, then 1 tablet daily until gone (x4 days) Sx tx discussed Essential hypertension Is off meds for now Close home monitoring and f/u if elevated Patient Education Topic: as above Method: Verbal Taught to: Patient Barriers: None Outcomes: verbalized understanding Signature:DT * Karishma Ovalles - 08/24/2016 1430 EST Venipuncture performed per order from Leida ARAUJO Right arm, a/c, first attempt and successful 1 SST Karishma Ovalles 08/24/2016 16:41 documented in this encounter Plan of Treatment Not on file documented as of this encounter Procedures Procedure Name Priority Date/Time Associated Diagnosis Comments THYROID CASCADE Routine 08/24/2016 14:51 EST Graves' disease documented in this encounter Results * (ABNORMAL) THYROID CASCADE (08/24/2016 14:51 EST) TSH 28.37(H) 0.55 - 4.78 uIU/ml 08/24/2016 21:31 EST [facility] Comment: TSH cascade is not recommended for patients in which pituitary or hypothalamic disorders are suspected. Blood specimen (specimen) BLOOD SPECIMEN / Unknown 08/24/2016 14:51 EST 08/24/2016 19:34 EST Leida Cerda PA-C CHEMISTRY & BLOOD GAS ORDERABLES [facility] [address] [place] [address] documented in this encounter Visit Diagnoses Diagnosis Graves' disease- Primary Toxic diffuse goiter without mention of thyrotoxic crisis or storm Bee sting, undetermined intent, sequela Acute suppurative otitis media of right ear without spontaneous rupture of tympanic membrane, recurrence not specified Essential hypertension Unspecified essential hypertension documented in this encounter Discontinued Medications Medication Sig Discontinue Reason Start Date End Da te pseudoephedrine (SUDAFED) 60 mg tablet Take 60 mg by mouth every 6 hours. Reported on 08/24/2016 08/24/2016 lisinopril-hydrochlorot hiazide (PRINZIDE, ZESTORETIC) 20-12.5 mg per tablet Take 1 Tab by mouth daily. MUST BE SEEN IN OFFICE 04/15/2016 08/24/2016 thyroid, Pork, (ARMOUR THYROID) 30 mg tablet Take 1 Tab by mouth daily. Take with 90 mcg daily to = 120 mcg due to insurance coverage 05/20/2016 08/24/2016 Thyroid, Pork, (ARMOUR THYROID) 90 mg tablet Take 90 mcg by mouth daily. Take with 30 mcg to =120 daily due to insurance coverage 05/20/2016 08/24/2016 EPINEPHrine (EPIPEN) 0.3 mg/0.3 mL (1:1,000) injectionIndications:Be e sting Inject 0.3 mL into the muscle once as needed for up to 1 dose (allergic reaction). Reorder 09/04/2014 08/24/2016 documented as of this encounter Care Teams Poolroom/Poolhall Manager Relationship Specialty Start Date End Date Shannan Vieyra MD PCP - General 04/08/09 03/15/19 documented as of this encounter
--- OUTSIDE RECORDS SUMMARY | 2024-05-24 15:28 | XMS_ITS | Encounter Summary ---
Author Organization [facility] Address [address] [place] [address] Care Team Providers Care Hotel Lobby Concierge Name Role Phone Shannan Vieyra MD Primary Care Provider Unavail able Encounter Details Date Type Department Care Team (Late st Contact Info) Description 02/21/2016 Orders Only [address] [address] Ronald, MD Pranay [address] [place] [phone] Social History Tobacco Use Types Packs/Day Years [...] Dispensed Refills Start Date End Da te doxycycline (VIBRA-TABS) 100 mg tablet Take 1 Tab by mouth once for 1 dose. 2 Tab 0 02/21/2016 02/26/2016 documented in this encounter Plan of Treatment Not on file documented as of this encounter Visit Diagnoses Not on filedocumented in this encounter Care Teams Hotel Lobby Concierge Relationship Specialty Start Date End Date Shannan Vieyra MD PCP - General 04/08/09 03/15/19 documented as of this encounter
--- OUTSIDE RECORDS SUMMARY | 2024-05-24 15:28 | XMS_ITS | Encounter Summary ---
Author Organization [facility] Address [address] [place] [address] Care Team Providers Care Asphalt Blender Name Role Phone Shannan Vieyra MD Primary Care Provider Unavail able Reason for Visit * Reason Onset Date Comments Medications Refill 09/20/2015 Encounter Details Date Type Department Care Team (Late st Contact Info) Description 09/20/[address] [address] Shannan Vieyra MD Medications Refill Social History [...] encounter Miscellaneous Notes * Telephone Encounter - Mikayla Lee - 09/20/2015 0835 EST Medication(s) Requested: [place] [facility]: [facility] Last Refill Date: 09/04/14 Last Visit Date: 09/04/14 Next Visit Date: Visit date not found Is patient out of medication? yes Mikayla Lee 09/20/2015 8:35 documented in this encounter Plan of Treatment Not on file documented as of this encounter Visit Diagnoses Diagnosis Graves' disease- Primary Toxic diffuse goiter without mention of thyrotoxic crisis or storm Iatrogenic hypothyroidism Other iatrogenic hypothyroidism documented in this encounter Care Teams Asphalt Blender Relationship Specialty Start Date End Date Shannan Vieyra MD PCP - General 04/08/09 03/15/19 documented as of this encounter
--- OUTSIDE RECORDS SUMMARY | 2024-05-24 15:28 | XMS_ITS | Encounter Summary ---
Author Organization [facility] Address [address] [place] [address] Care Team Providers Care Fundraising Officer Name Role Phone Shannan Vieyra MD Primary Care Provider Unavail able Reason for Visit * Reason Comments Abdominal Pain LLQ abdominal pain. Has history of Gall stones and has had similar pain, this time started around 03:30, took 1/2 percocet left from last time with no relief. Encounter Details Date Type Department Care Team (Late st Contact Info) Description 01/25/2014 5:15 EDT - 01/25/2014 6:56 EDT Emergency [facility] Emergency Department - Main [place] [address] [place] [address] Samanta Amador PA-C [address] [place] [id number] Michael Lundy PA-C [address] [place] [address] Emergency, MD Keli Abdominal pain (Primary Dx) Discharge Disposition: Home or Self [...] Sign Reading Time Taken Comments Blood Pressure 134/95 01/25/2014 0522 EDT Pulse 88 01/25/2014 0600 EDT Temperature 36.2 ??C (97.2 ??F) 01/25/201422 EDT Respiratory Rate 16 01/25/2014 0600 EDT Oxygen Saturation 98% 01/25/2014 0600 EDT Inhaled Oxygen Concentration - - Weight 79.4 kg (175 lb) 01/25/2014521 EDT Height 162.6 cm (5' 4.02) 01/25/2014521 EDT Body Mass Index 30.02 01/25/2014521 EDT documented in this encounter Discharge Instructions * Discharge Instructions* Ramesh Lundy - 01/25/2014 6:37 EDT Labs are unremarkable Continue all of your medications as prescribed. Follow up with your PCP for pain control and with Gastroenterology for further workup Return to ED with fevers, uncontrolled vomiting. documented in this encounter Medications at Time of Discharge Medication Sig Dispensed Refills Start Date End Date doxycycline (VIBRA-TABS) 100 mg tabletIndications:Cellul itis Take 1 Tab by mouth 2 times daily for 7 days. 14 Tab 0 05/21/2013 02/26/2016 EPINEPHrine (EPIPEN) 0.3 mg/0.3 mL (1:1,000) injectionIndications:Bee sting Inject 0.3 mL into the muscle once as needed (allergic reaction) for 1 dose. 1 Syringe 6 05/21/2013 09/04/2014 levonorgestrel-ethinyl estradiol (SEASONALE) 0.15-30 mg-mcg per tablet Take 1 Tab by mouth daily. 06/25/2020 lisinopril-hydrochloroth iazide (PRINZIDE, ZESTORETIC) 20-12.5 mg per tablet Take 1 Tab by mouth daily. 90 Tab 0 10/16/2013 02/20/2014 oxyCODONE-acetaminophen (PERCOCET) 5-325 mg per tablet Take 1 Tab by mouth every 6 hours as needed for Pain for 12 doses. 12 Tab 0 06/24/2013 03/01/2014 Thyroid, Pork, (ARMOUR THYROID) 90 mg tablet Take 1 Tab by mouth daily. 90 Tab 0 10/16/2013 02/20/2014 documented as of this encounter Discharge Disposition Disposition Code Departure Means Destination Comment s Home or Self Care Pt. verbalizes d/c instructions, pt. in NAD on d/c. documented in this encounter ED Notes * Ramesh Lundy - 01/25/2014 0645 EDT Assumed care of patient at 0600 from VAN Amador Patient with persistent subacute versus chronic upper abdominal pain, mostly on the left upper side. Needs followup with GI but has not done so as of yet Multiple visits to ED for same Labs today unremarkable, normal LFTs and lipase Patient reexamined by me, states she feels fine without any pain, has a normal abdominal exam with no tenderness, guarding or CVA tenderness Discharge home, [id number] analgesia, stressed the importance once again of following up withGI and her PCP * Samanta Amador PA - 01/25/2014 0538 EDT DOS: 01/25/2014 Chief Complaint Patient presents with ??? Abdominal Pain LLQ abdominal pain. Has history of Gall stones and has had similar pain, this time started around 03:30, took 1/2 percocet left from last time with no relief. The patient is a 33 y.o. female who presents today with Abdominal Pain HPI Comments: The patient is a 33 year old female with a history of LUQ abdominal pain that has been worked up in the past with no definitive source of abdominal pain including CT scan and lab work (most recently in October). At that time, patient was told to follow up with GI which she has not done. She reports she was discharged home with percocet and has been using this as needed for flare ups which she estimates to occur 2-3 times a month. She took her last dose of Percocet this AM (1/2 tab) after she was awoken with the pain in the middle of the night with no relief with the percocet. Reports the pain feels exactly like prior episodes, sharp, LUQ, not associated with nausea, vomiting, diarrhea, fevers, chills. She has been told in the past that she that she has gallstones in the past but that they are nonobstructing. She is eating and drinking normally. No urinary symptoms. Pain radiates to her L flank. Abdominal Pain Associated symptoms: no chills, no constipation, no diarrhea, no dysuria, no fever, no nausea, no shortness of breath, no sore throat, no vaginal bleeding, no vaginal discharge and no vomiting The history is provided by the patient. Review of Systems Constitutional: Negative for fever, chills, activity change and appetite change. HENT: Negative for congestion, sore throat, neck pain and neck stiffness. Respiratory: Negative for chest tightness and shortness of breath. Gastrointestinal: Positive for abdominal pain. Negative for nausea, vomiting, diarrhea, constipation and abdominal distention. Genitourinary: Negative for dysuria, decreased urine volume, vaginal bleeding and vaginal discharge. Musculoskeletal: Positive for back pain (L flank). Skin: Negative for rash. Neurological: Negative for dizziness, light-headedness and headaches. Past Medical History Diagnosis Date ??? Meningitis, unspecified 2003 ??? Thyroid disease ??? Hypertension Past Surgical History Procedure Laterality Date ??? section ??? Ablation of dysrhythmic focus Allergies Allergen Reactions ??? Penicillins Anaphylaxis ??? Bee Sting (Hymenoptera Allergenic Extract) Massive swelling ??? Propranolol ??? Sulfa (Sulfonamide Antibiotics) Hives History Substance Use Topics ??? Smoking status: Never Smoker ??? Smokeless tobacco: Not on file ??? Alcohol Use: No Family History Problem Relation Age of Onset ??? Kidney Disease Mother stones ??? Thyroid Disease Mother ??? Thyroid Disease Sister Vital Signs Vitals Reassessment?: Yes Temp: 36.2 ??C (97.2 ??F) Temp src: Tympanic Pulse: 88 Resp: 16 SpO2: 98 % BP: 134/95 mmHg BP Device: BP Machine Physical Exam Nursing note and vitals reviewed. Constitutional: She is oriented to person, place, and time. She appears well- developed and well-nourished. No distress. HENT: Head: Normocephalic and atraumatic. Right Ear: External ear normal. Left Ear: External ear normal. Mouth/Throat: Oropharynx is clear and moist. Neck: Neck supple. Cardiovascular: Normal rate, regular rhythm and normal heart sounds. Pulmonary/Chest: Effort normal and breath sounds normal. No respiratory distress. She has no wheezes. Abdominal: Soft, tender LUQ reported without guarding, normal BS x 4 quadrants. No CVAT bilaterally. Neurological: She is alert and oriented to person, place, and time. Skin: Skin is warm and dry. Psychiatric: She has a normal mood and affect. Her behavior is normal. Radiology orders: None Imaging Results None Procedures ED Course: A medical screening exam was performed. 33 y/o female with chronic LUQ abdominal pain presents withsame presentation. Has run out of pain meds at home. Never followed up with GI. Exam as above. IVF placed, pain and nausea meds administered. Basic lab work including lipase checked. Plan to check basic lab work, if normal will d/c home with plan to follow up with GI as she has already had this extensively worked up in ER with multiple visits & scans and there is no change inthe symptoms. Patient is in agreement with plan and is comfortable with this. Sign out to [place] at 600 pending labwork. Disposition: Discharged The patient's pain was managed to an adequate level weighing risk vs. benefit of further medications. Upon departure from the Emergency Department, the patient's pain was 0 on a zero to ten scale. Condition at departure from the Emergency Department: Stable Discharge Medication List as of 01/25/2014 6:37 CONTINUE these medications which have NOT CHANGED Details EPINEPHrine (EPIPEN) 0.3 mg/0.3 mL (1:1,000) injection Inject 0.3 mL into the muscle once as needed(allergic reaction) for 1 dose., Disp-1 Syringe, R-6, allergic reaction, Normal levonorgestrel-ethinyl estradiol (SEASONALE) 0.15-30 mg-mcg per tablet 1 Tab, Oral, DAILY, Until Discontinued, Historical Med lisinopril-hydrochlorothiazide (PRINZIDE, ZESTORETIC) 20-12.5 mg per tablet Take 1 Tab by mouth daily., Disp-90 Tab, R-0, Normal oxyCODONE-acetaminophen (PERCOCET) 5-325 mg per tablet Take 1 Tab by mouth every 6 hours as needed for Pain for 12 doses., Disp-12 Tab, R-0, Pain, Print Thyroid, Pork, (ARMOUR THYROID) 90 mg tablet Take 1 Tab by mouth daily., Disp-90 Tab, R-0Due for Blood workNormal MDM Number of Diagnoses or Management Options Abdominal pain: Diagnosis management comments: 4 Final diagnoses: Abdominal pain PCP: MD Aura Clement was available for supervision. 01/28/2014 10:12 * Pranay Vallecillo, RN - 01/25/2014 0521 EDT LLQ abdominal pain. Has history of Gall stones and has had similar pain, this time started around 03:30, took 1/2 percocet left from last time with no relief. Denies Nausea, vomiting and diarrhea. documented in this encounter Plan of Treatment Not on file documented as of this encounter Procedures Procedure Name Priority Date/Time Associated Diagnosis Comments DIFFERENTIAL STAT 01/25/2014 5:38 EDT COMPLETE BLOOD COUNT STAT 01/25/2014 5:38 EDT COMPLETE BLOOD COUNT AND DIFFERENTIAL STAT 01/25/2014 5:38 EDT LIPASE STAT 01/25/2014 5:38 EDT COMPREHENSIVE METABOLIC PANEL (CMP) STAT 01/25/2014 5:38 EDT documented in this encounter Results * DIFFERENTIAL (01/25/2014 5:38 EDT) % Neutrophils 55.0 45.5 - 79.7 % [facility] % Lymphocytes 31.0 15.0 - 46.8 % [facility] % Monocytes 9.1 1.8 - 12.0 % [facility] % Eosinophils 4.0 0.6 - 6.9 % [facility] % Basophils 0.9 0.2 - 1.4 % [facility] ABS Neutrophils 3.38 2.20 - 8.85 K/cmm [facility] ABS Lymphs 1.90 1.09 - 3.30 K/cmm [facility] ABS Monocytes 0.56 0.1 - 0.8 K/cmm [facility] ABS Eosinophils 0.24 0.03 - 0.61 K/cmm [facility] ABS Basophils 0.05 0.01 - 0.11 K/cmm [facility] Type of Diff: Automated [facility] 01/25/2014 5:38 EDT 01/25/2014 6:00 EDT Samanta Amador PA-C HEMATOLOGY & PF4 ORD ERABLES Performing Organization Address [facility] de Phone Number [facility] [address] [place] [address] * HEMAGRAM (01/25/2014 5:38 EDT) WBC 6.13 4.0 - 12.4 K/cmm [facility] RBC 4.59 3.86 - 5.04 M/cmm [facility] Hemoglobin 13.3 11.6 - 15.2 gm/dl [facility] HCT 39.3 34.9 - 44.4 % [facility] MCV 86 81 - 98 fl [facility] MCH 29.1 26.7 - 33.3 pg [facility] MCHC 33.9 32.1 - 35.9 gm/dl [facility] PLT 190 141 - 320 K/cmm [facility] RDW-CV 13.0 11.7 - 14.6 % [facility] 01/25/2014 5:38 EDT 01/25/2014 6:00 EDT Samanta Amador PA-C HEMATOLOGY & PF4 ORD ERAJEREMIAS Performing Organization Address [facility] Co de Phone Number [facility] [address] [place] [address] * LIPASE (01/25/2014 5:38 EDT) Lipase 111 0 - 250 U/L [facility] Blood specimen (specimen) 01/25/2014 5:38 EDT 01/25/2014 6:00 EDT Samanta Amador PA-C CHEMISTRY & BLOOD GA S ORDERABLES Performing Organization Address [facility]/ZIP Co de Phone Number [facility] [address] [place] [address] * (ABNORMAL) COMPREHENSIVE METABOLIC PANEL (CMP) (01/25/2014 5:38 EDT) Potassium 4.0 3.5 - 5.0 mEq/L [facility] Sodium 137 136 - 145 mEq/L [facility] Chloride 104 96 - 110 mEq/L [facility] CO2 25 24 - 32 mEq/L [facility] Total Alkaline Phosphatase 62 38 - 126 U/L [facility] Bilirubin, Total <0.5 <1.4 mg/dl FL [facility] AST 13(L) 15 - 46 U/L [facility] ALT 14 9 - 52 U/L [facility] Albumin 3.8 3.4 - 4.9 g/dl [facility] Total Protein 6.9 6.5 - 8.3 g/dl [facility] Creatinine 0.60 0.52 - 1.04 mg/dl [facility] GFR, Calculated >60 >60 ml/min/1.7 3m2 [facility] BUN 16 10 - 26 mg/dl [facility] Calcium 9.5 8.5 - 10.5 mg/dl [facility] Calculated Calcium 10.1 8.5 - 10.5 mg/dl [facility] Glucose, Serum 112(H) 70 - 100 mg/dl [facility] Fasting? Unknown [facility] Blood specimen (specimen) 01/25/2014 5:38 EDT 01/25/2014 6:00 EDT Samanta Amador PA-C CHEMISTRY & BLOOD GA S ORDERABLES Performing Organization Address [facility] Co de Phone Number [facility] [address] [place] [address] documented in this encounter Visit Diagnoses Diagnosis Abdominal pain- Primary Abdominal pain, unspecified site documented in this encounter Administered Medications Inactive Administered Medications - up to 3 most recent administrations Medication Order MAR Action Action Date Dose Rate Site HYDROmorphone (PF) (DILAUDID) 1 mg/mL injection 1 mg 1 mg, intravenous, NOW X1, 1 dose, On Tue01/25/14 at 0545, STAT Given 01/25/2014 6:15 EDT 0.5 mg Given 01/25/2014 6:00 EDT 0.5 mg ondansetron (PF) (ZOFRAN) injection 4 mg 4 mg, intravenous, NOW X1, 1 dose, On Tue01/25/14 at 0545, STAT Given 01/25/2014 6:00 EDT 4 mg sodium chloride 0.9 % BOLUS 1,000 mL 1,000 mL, intravenous, Once (Without Time Specified), 1 dose, Starting on Tue01/25/14 at 0545, Until Tue01/25/14 at 0559, STAT Given 01/25/2014 5:59 EDT 1,000 mL documented in this encounter Discontinued Medications Medication Sig Discontinue Reason Start Date End Da te ondansetron (ZOFRAN-ODT) 4 mg disintegrating tablet Take 1 Tab by mouth every 8 hours as needed for Nausea for 12 doses. 06/24/2013 01/25/2014 documented as of this encounter Active and Recently Administered Medications Times are shown in EDT. Scheduled Medication Order 01/23/2014 01/24/2014 01/25/2014 HYDROmorphone (PF) (DILAUDID) 1 mg/mL injection 1 mg (COMPLETED) 1 mg, intravenous, NOW X1, 1 dose, On Tue01/25/14 at 0545, STAT 0600 (Given - Provid er: Denice Mondragon RN - Comment: after administering 0.5mg of dildaudid pt is feeling pain relief. asked RN to stop administration.)0615 (Given - Provider: Denice Mondragon RN) ondansetron (PF) (ZOFRAN) injection 4 mg (COMPLETED) 4 mg, intravenous, NOW X1, 1 dose, On Tue01/25/14 at 0545, STAT 0600 (Given - Provid er: Denice Mondragon RN) sodium chloride 0.9 % BOLUS 1,000 mL (COMPLETED) 1,000 mL, intravenous, Once (Without Time Specified), 1 dose, Starting on Tue01/25/14 at 0545, Until Tue01/25/14 at 0559, STAT 0559 (Given - Provid er: Denice Mondragon RN) documented in this encounter Orders Nursing Count Last Ordered Date First Orde red Date INSERT PERIPHERAL IV 1 01/25/2014 documented in this encounter Care Teams Fundraising Officer Relationship Specialty Start Date End Date Shannan Vieyra MD PCP - General 04/08/09 03/15/19 documented as of this encounter
--- OUTSIDE RECORDS SUMMARY | 2024-05-24 15:28 | XMS_ITS | Encounter Summary ---
Author Organization [facility] Address [address] [place] [address] Care Team Providers Care Shaker Tender Name Role Phone Shannan Vieyra MD Primary Care Provider Unavail able Reason for Visit * Reason Comments Abdominal Pain c/o left sided lower abdominal pain since midnight tonight. States has had same pain on and off x 3 times and seen here a couple of months ago for same. Now pain 06/19, unchanging with movement, constant Encounter Details Date Type Department Care Team (Late st Contact Info) Description 06/24/2013 3:55 EDT - 06/24/2013 10:56 EDT Emergency [facility] Emergency Department - [address] [place] [address] [place] [address] Sarkis Crook, PA-C [address] [place], [place] [id number] Shikha Beavers PA [address] [place], [place] [phone] Emergency, MD Keli Abdominal pain (Primary Dx) [...] Sign Reading Time Taken Comments Blood Pressure 103/58 06/24/2013 0933 EDT Pulse 78 06/24/2013 0933 EDT Temperature 36.5 ??C (97.7 ??F) 06/24/2013932 EDT Respiratory Rate 16 06/24/2013932 EDT Oxygen Saturation 99% 06/24/2013932 EDT Inhaled Oxygen Concentration - - Weight 88.5 kg (195 lb) 06/24/2013431 EDT Height 162.6 cm (5' 4) 06/24/2013431 EDT Body Mass Index 33.47 06/24/2013431 EDT documented in this encounter Discharge Instructions * Discharge Instructions* Shikha Beavers - 06/24/2013 10:42 EDT Drink plenty of water and eat foods that are not irritating such as spicy, acidic, or fatty foods. Use ibuprofen as needed and directed with food for pain management. Use the prescription pain medication for more acute, severe pain as needed and directed. Use the nausea medication as needed and directed. Make an appointment to speak with your primary provider for a referral to GI. Return to the emergency room with uncontrolled pain, development of a fever, or other symptoms you feel require emergent evaluation. * Attachments The following attachments cannot be sent through Care Everywhere. * ABDOMINAL PAIN: AFTER YOUR VISIT TO THE EMERGENCY ROOM ([facility]) documented in this encounter Medications at Time of Discharge Medication Sig Dispensed Refills Start Date End Date doxycycline (VIBRA-TABS) 100 mg tabletIndications:Cellulit is Take 1 Tab by mouth 2 times daily for 7 days. 14 Tab 0 05/21/2013 02/26/2016 EPINEPHrine (EPIPEN) 0.3 mg/0.3 mL (1:1,000) injectionIndications:Bee sting Inject 0.3 mL into the muscle once as needed (allergic reaction) for 1 dose. 1 Syringe 6 05/21/2013 09/04/2014 levonorgestrel-ethinyl estradiol (SEASONALE) 0.15-30 mg-mcg per tablet Take 1 Tab by mouth daily. 06/25/2020 lisinopril-hydrochlorothia zide (PRINZIDE, ZESTORETIC) 20-12.5 mg per tabletIndications:Hyperten merrill Take 1 Tab by mouth daily. 90 Tab 3 06/14/2012 10/15/2013 ondansetron (ZOFRAN-ODT) 4 mg disintegrating tablet Take 1 Tab by mouth every 8 hours as needed for Nausea for 12 doses. 12 Tab 0 06/24/2013 01/25/2014 oxyCODONE-acetaminophen (PERCOCET) 5-325 mg per tablet Take 1 Tab by mouth every 6 hours as needed for Pain for 12 doses. 12 Tab 0 06/24/2013 03/01/2014 thyroid (ARMOUR THYROID) 15 mg tabletIndications:Other iatrogenic hypothyroidism Take 1 Tab by mouth daily. 90 Each 3 11/06/2012 10/16/2013 thyroid (ARMOUR) 90 mg tabletIndications:Other iatrogenic hypothyroidism Take 1 Tab by mouth daily. (Cancel order/refills on 120 mg dose) 90 Each 3 06/19/2012 10/15/2013 documented as of this encounter Ordered Prescriptions Prescription Sig Dispensed Refills Start Date End Da te oxyCODONE-acetaminophen (PERCOCET) 5-325 mg per tablet Take 1 Tab by mouth every 6 hours as needed for Pain for 12 doses. 12 Tab 0 06/24/2013 03/01/2014 ondansetron (ZOFRAN-ODT) 4 mg disintegrating tablet Take 1 Tab by mouth every 8 hours as needed for Nausea for 12 doses. 12 Tab 0 06/24/2013 01/25/2014 documented in this encounter Discharge Disposition Disposition Code Departure Means Destination Home or Self Half-Way documented in this encounter ED Notes * Shikha Beavers - 06/24/2013 1614 EDT Assumed care of the patient from Xuan Crook PA-C at 0600 with plan to await a urine sample then determine further plan of care. Urine resulted without abnormality. Patient is resting comfortably and is denying pain. Discussed that since she has had recurrent episodes with more frequency and intensity a CT of the abdomen and pelvis could be performed in the ED to determine if further information is found. CT of the abdomen was not helpful in narrowing a diagnosis, but does exclude emergent etiologies. Referred patient to PCP to discuss possible referral to GI. Patient given small quantity of pain medication and nausea medication to use if she becomes symptomatic. Patient agrees with this plan. * Mack Segura RN - 06/24/2013 0517 EDT Blood drawn via saline lock per protocol, tiger and purple tube(s) sent to lab per order. * Sarkis Crook PA - 06/24/2013 1069 EDT DOS: 06/24/2013 Chief Complaint Patient presents with ??? Abdominal Pain c/o left sided lower abdominal pain since midnight tonight. States has had same pain on and off x 3times and seen here a couple of months ago for same. Now pain 9/10, unchanging with movement, constant The patient is a 33 y.o. female who presents today with Abdominal Pain HPI Comments: Chief complaint abdominal pain. Patient states she was awakened at midnight tonight by severe left-sided abdominal pain. pain was 10/10 earlier, now 6/10. Localizes the pain to her leftlateral abdomen, does not radiate. Patient denies nausea or vomiting, fever chills, hematuria, dysuria, irregular vaginal bleeding or discharge. Denies constipation or diarrhea. Patient does have a history of gallstones, no history of kidney stones. She does have a history of pyelonephritis but this seems different. She has had a C- section, no other abdominal surgeries. No known history of diverticulitis. Patient also notes that she has had similar pain twice earlier this week, which resolved after about an hour. She also has had similar pain several times the last several years. The history is provided by the patient. Abdominal Pain Review of Systems Gastrointestinal: Positive for abdominal pain. All other systems reviewed and are negative. Past Medical History Diagnosis Date ??? Meningitis 2004 ??? Thyroid disease ??? Hypertension Past Surgical History Procedure Date ??? section ??? Ablation of dysrhythmic [...] Mother ??? Thyroid Disease Sister Vital Signs Temp: 36.5 ??C (97.7 ??F) Temp src: Oral Pulse: 78 Resp: 16 SpO2: 99 % SpCO: 5 % BP: 103/58 mmHg BP Device: BP Machine Patient Position: Supine BP Cuff Location: Right arm O2 Device: None (Room air) Physical Exam Vitals reviewed. Constitutional: She is oriented to person, place, and time. She appears well- developed and well-nourished. She appears distressed (tearful moderately uncomfortable). HENT: Head: Normocephalic. Eyes: Pupils are equal, round, and reactive to light. Cardiovascular: Normal rate and regular rhythm. Abdominal: Soft. She exhibits no distension and no mass. There is tenderness (Left lateral abdominal tenderness, moderate). There is no rebound and no guarding. Musculoskeletal: She exhibits no tenderness (No CVA tenderness). Neurological: She is alert and oriented to person, place, and time. Skin: Skin is warm and dry. Psychiatric: She has a normal mood and affect. Her behavior is normal. Judgment and thought contentnormal. CT ABDOMEN, PELVIS W CONTRAST Final result not shown here.: CT ABDOMEN AND PELVIS (Results Pending) Radiology orders: CT ABDOMEN, PELVIS W CONTRAST Imaging Results None Procedures ED Course: A medical screening exam was performed. On exam, patient has normal vital signs, appears uncomfortable and tearful. Tender over the entire left abdominal area, mostly left lateral. No flank tenderness. Exam otherwise unremarkable. Labs including CBC, lipase, CMP unremarkable. Urine pending at the end of my shift. Disposition: Discharged The patient's pain was managed to an adequate level weighing risk vs. benefit of further medications. Upon departure from the Emergency Department, the patient's pain was 4 on a zero to ten scale. Condition at departure from the Emergency Department: Stable Discharge Prescriptions New Prescriptions ONDANSETRON (ZOFRAN-ODT) 4 MG DISINTEGRATING TABLET Take 1 Tab by mouth every 8 hours as needed forNausea for 12 doses. OXYCODONE-ACETAMINOPHEN (PERCOCET) 5-325 MG PER TABLET Take 1 Tab by mouth every 6 hours as needed for Pain for 12 doses. MDM Number of Diagnoses or Management Options Diagnosis management comments: 4 Amount and/or Complexity of Data Reviewed Clinical lab tests: ordered and reviewed Review and summarize past medical records: yes Discuss the patient with other providers: yes Final diagnoses: Abdominal pain PCP: MD Jose Clement 06/25/2013 0:54 * Mack Segura RN - 06/24/2013 0454 EDT Sarkis ARAUJO at bedside evaluating pt. documented in this encounter Miscellaneous Notes * Scanned Note-Null - ADVERTISING SALES ASSISTANT, SCAN 2 - 06/26/2013 1440 EDT documented in this encounter Plan of Treatment Not on file documented as of this encounter Procedures Procedure Name Priority Date/Time Associated Diagnosis Comments CT ABDOMEN, PELVIS W CONTRAST 06/24/2013 8:39 EDT POCT TEST, VISUAL READ STAT 06/24/2013 7:02 EDT POCT URINE DIPSTICK, CLINITEK STAT 06/24/2013 6:51 EDT DIFFERENTIAL Routine 06/24/2013 5:10 EDT COMPLETE BLOOD COUNT Routine 06/24/2013 5:10 EDT COMPLETE BLOOD COUNT AND DIFFERENTIAL STAT 06/24/2013 5:10 EDT LIPASE STAT 06/24/2013 5:10 EDT COMPREHENSIVE METABOLIC PANEL (CMP) STAT 06/24/2013 5:10 EDT documented in this encounter Results * CT ABDOMEN, PELVIS W CONTRAST (06/24/2013 8:39 EDT) Anatomical Region Laterality Modality Other 06/24/2013 8:39 EDT 06/24/2013 10:53 EDT Narrative 06/24/2013 10:[address] ABDOMEN, PELVIS W CONTRAST ??06/24/2013 8:39 AM Signs and Symptoms/Comments: ??ABDOMINAL PAIN-Left mid-quadrant more anterior. Increasing episodes of sharp, intense pain nonradiating. CT of the abdomen with IV and rectal contrast. Comparison: 04/19/2004 Findings: No free intraperitoneal air is identified. Liver: Normal. GB: Numerous calcified gallstones without evidence of cholecystitis Spleen: Normal. ?? Adrenals: Normal. Kidneys: Multiple areas of renal scarring are present within the right kidney. The left is unremarkable. No renal calculi are identified.. No hydronephrosis is present. Pancreas: Normal. The stomach and esophagus are unremarkable. ? The small bowel and colon are unremarkable, without evidence of diverticulosis, diverticulitis, or bowel obstruction. Appendix: Normal. Bladder: Normal. No free fluid or free air is identified. Reproductive organs: Normal. Anterior abdominal wall: Intact. Lymph nodes: No enlargement. Blood vessels: Normal. Bones: Increased sclerosis within the left iliac bone along the sacroiliac joint.. Lung bases: Clear. Impression: 1. No acute intra-abdominal process. 2. Cholelithiasis without evidence of cholecystitis. 3. Increased sclerosis within the left iliac bone along the sacroiliac joint. Correlate for sacroiliitis or osteitis condensans ilii. 4. Multiple focal areas of cortical scarring within the right kidney. ?? Dr. Ciara lim/marcus beavers at 10:20 on 06/24/13 Procedure Note 06/24/2013 CT ABDOMEN, PELVIS W CONTRAST 06/24/2013 8:39 AM Signs and Symptoms/Comments: ABDOMINAL PAIN-Left mid-quadrant more anterior. Increasing episodes of sharp, intense pain nonradiating. CT of the abdomen with IV and rectal contrast. Comparison: 04/19/2004 Findings: No free intraperitoneal air is identified. Liver: Normal. GB: Numerous calcified gallstones without evidence of cholecystitis Spleen: Normal. Adrenals: Normal. Kidneys: Multiple areas of renal scarring are present within the right kidney. The left is unremarkable. No renal calculi are identified.. No hydronephrosis is present. Pancreas: Normal. The stomach and esophagus are unremarkable. The small bowel and colon are unremarkable, without evidence of diverticulosis, diverticulitis, or bowel obstruction. Appendix: Normal. Bladder: Normal. No free fluid or free air is identified. Reproductive organs: Normal. Anterior abdominal wall: Intact. Lymph nodes: No enlargement. Blood vessels: Normal. Bones: Increased sclerosis within the left iliac bone along the sacroiliac joint.. Lung bases: Clear. Impression: 1. No acute intra-abdominal process. 2. Cholelithiasis without evidence of cholecystitis. 3. Increased sclerosis within the left iliac bone along the sacroiliac joint. Correlate for sacroiliitis or osteitis condensans ilii. 4. Multiple focal areas of cortical scarring within the right kidney. Dr. Urbina d/w nimesh at 10:20 on 06/24/[address] ORDERABLES * POCT URINE TEST (06/24/2013 7:02 EDT) Pathologist [facility] Test, Urine, POC Negative Reference Range, Negative Control Line Present Yes Background Clear? Yes Urine specimen (specimen) 06/24/2013 7:02 EDT Sarkis Crook PA-C POINT OF CARE TEST O RDERABLES * (ABNORMAL) POCT URINE DIPSTICK (06/24/2013 6:51 EDT) Pathologist [facility] Color YELLOW [facility] Clarity, UA Clear [facility] Glucose Neg Neg [facility] Bilirubin Neg Neg [facility] Ketones Neg Neg [facility] Specific Calvin >=1.030 1.001 - 1.035 [facility] Blood Neg Neg [facility] pH 6.0 4.6 - 8.0 [facility] Protein Trace(A) Neg [facility] Urobilinogen 0.2 0.2 - 1.0 E.U./dl [facility] Nitrite Neg Neg [facility] Leuk Esterase Neg Neg [facility] investment specialist ID [id number] [facility] Comment:Test performed at [facility] Urine specimen (specimen) 06/24/2013 6:51 EDT 06/24/2013 7:01 EDT Sarkis Crook PA-C POINT OF CARE TEST O RDERABLES Performing Organization Address [facility] Co de Phone Number [facility] [address] [place] [address] * DIFFERENTIAL (06/24/2013 5:10 EDT) % Neutrophils 59.1 45.5 - 79.7 % [facility] % Lymphocytes 27.9 15.0 - 46.8 % [facility] % Monocytes 7.9 1.8 - 12.0 % [facility] % Eosinophils 4.6 0.6 - 6.9 % [facility] % Basophils 0.5 0.2 - 1.4 % [facility] ABS Neutrophils 3.73 2.20 - 8.85 K/cmm [facility] ABS Lymphs 1.76 1.09 - 3.30 K/cmm [facility] ABS Monocytes 0.50 0.1 - 0.8 K/cmm [facility] ABS Eosinophils 0.29 0.03 - 0.61 K/cmm [facility] ABS Basophils 0.03 0.01 - 0.11 K/cmm [facility] Type of Diff: Automated [facility] 06/24/2013 5:10 EDT 06/24/2013 5:20 EDT Sarkis Crook PA-C HEMATOLOGY & PF4 ORD ERABLES Performing Organization Address [facility] Co de Phone Number [facility] [address] [place] [address] * HEMAGRAM (06/24/2013 5:10 EDT) WBC 6.31 4.0 - 12.4 K/cmm [facility] RBC 4.42 3.86 - 5.04 M/cmm [facility] Hemoglobin 13.3 11.6 - 15.2 gm/dl [facility] HCT 38.8 34.9 - 44.4 % [facility] MCV 88 81 - 98 fl [facility] MCH 30.1 26.7 - 33.3 pg [facility] MCHC 34.3 32.1 - 35.9 gm/dl [facility] PLT 187 141 - 320 K/cmm [facility] RDW-CV 12.8 11.7 - 14.6 % [facility] 06/24/2013 5:10 EDT 06/24/2013 5:20 EDT Sarkis Crook PA-C HEMATOLOGY & PF4 ORD ERABLES Performing Organization Address [facility] Co de Phone Number [facility] [address] [place] [address] * LIPASE (06/24/2013 5:10 EDT) Pathologist [facility] Lipase 163 0 - 250 U/L [facility] Blood specimen (specimen) 06/24/2013 5:10 EDT 06/24/2013 5:20 EDT Sarkis Crook PA-C CHEMISTRY & BLOOD GA S ORDERABLES Performing Organization Address [facility] Phone Number [facility] [address] [place] [address] * (ABNORMAL) COMPREHENSIVE METABOLIC PANEL (CMP) (06/24/2013 5:10 EDT) Pathologist [facility] Potassium 3.8 3.5 - 5.0 mEq/L [facility] Sodium 138 136 - 145 mEq/L [facility] Chloride 105 96 - 110 mEq/L [facility] CO2 24 24 - 32 mEq/L [facility] Total Alkaline Phosphatase 57 38 - 126 U/L [facility] Bilirubin, Total <0.5 0.2 - 1.3 mg/dl [facility] AST 15 15 - 46 U/L [facility] ALT 31 9 - 52 U/L [facility] Albumin 3.3(L) 3.4 - 4.9 g/dl [facility] Total Protein 6.1(L) 6.5 - 8.3 g/dl [facility] Creatinine 0.77 0.52 - 1.04 mg/dl [facility] GFR, Calculated >60 >60 ml/min/1.7 3m2 [facility] BUN 17 10 - 26 mg/dl [facility] Calcium 8.7 8.5 - 10.5 mg/dl [facility] Calculated Calcium 9.8 8.5 - 10.5 mg/dl [facility] Glucose, Serum 104(H) 70 - 100 mg/dl [facility] Fasting? Unknown [facility] Blood specimen (specimen) 06/24/2013 5:10 EDT 06/24/2013 5:20 EDT Sarkis Crook PA-C CHEMISTRY & BLOOD GA S ORDERABLES [facility] [address] [place] [address] documented in this encounter Visit Diagnoses Diagnosis Abdominal pain- Primary Abdominal pain, unspecified site documented in this encounter Administered Medications Inactive Administered Medications - up to 3 most recent administrations Medication Order MAR Action Action Date Dose Rate Site HYDROmorphone (PF) (DILAUDID) 1 mg/mL injection 1 mg 1 mg, intravenous, NOW X1, 1 dose, On 06/24/13 at 0530, STAT Given 06/24/2013 5:37 EDT 1 mg ondansetron (PF) (ZOFRAN) injection 4 mg 4 mg, intravenous, NOW X1, 1 dose, On 06/24/13 at 0530, STAT Given 06/24/2013 5:37 EDT 4 mg sodium chloride (NS) 0.9 % 1,000 mL BOLUS 1,000 mL, intravenous, Once (Without Time Specified), 1 dose, Starting on 06/24/13 at 0503, Until 06/24/13 at 0537, STAT Given 06/24/2013 5:37 EDT 1,000 mL documented in this encounter Active and Recently Administered Medications Times are shown in EDT. Scheduled Medication Order 06/22/2013 06/23/2013 06/24/2013 HYDROmorphone (PF) (DILAUDID) 1 mg/mL injection 1 mg (COMPLETED) 1 mg, intravenous, NOW X1, 1 dose, On 06/24/13 at 0530, STAT 0537 (Given - Provid er: Mack Segura RN) ondansetron (PF) (ZOFRAN) injection 4 mg (COMPLETED) 4 mg, intravenous, NOW X1, 1 dose, On 06/24/13 at 0530, STAT 0537 (Given - Provid er: Mack Segura RN) sodium chloride (NS) 0.9 % 1,000 mL BOLUS (COMPLETED) 1,000 mL, intravenous, Once (Without Time Specified), 1 dose, Starting on 06/24/13 at 0503, Until 06/24/13 at 0537, STAT 0537 (Given - Provid er: Mack Segura, DAXA) documented in this encounter Orders Nursing Count Last Ordered Date First Orde red Date INSERT PERIPHERAL IV 1 06/24/2013 documented in this encounter Care Teams Shaker Tender Relationship Specialty Start Date End Date Shannan Vieyra MD PCP - General 04/08/09 03/15/19 documented as of this encounter
--- OUTSIDE RECORDS SUMMARY | 2024-05-24 15:28 | XMS_ITS | Encounter Summary ---
Author Organization [facility] Address [address] [place] [id number] Care Team Providers Care Installer Soft Top Name Role Phone Shannan Vieyra MD Primary Care Provider Unavail able Reason for Visit * Reason Onset Date Comments Medications Refill 02/20/2014 Encounter Details Date Type Department Care Team (Late st Contact Info) Description 02/20/[address] [phone] Shannan Vieyra MD Medications Refill Social History [...] Dispensed Refills Start Date End Da te thyroid, Pork, (ARMOUR THYROID) 15 mg tablet Take 1 Tab by mouth daily OVER DUE FOR THYROID FUNCTION LABS. 90 Tab 0 02/20/2014 08/20/2014 lisinopril-hydrochlorothi azide (PRINZIDE, ZESTORETIC) 20-12.5 mg per tablet Take 1 Tab by mouth daily. 90 Tab 0 02/20/2014 08/20/2014 Thyroid, Pork, (ARMOUR THYROID) 90 mg tablet Take 1 Tab by mouth daily. 90 Tab 0 02/20/2014 08/20/2014 documented in this encounter Miscellaneous Notes * Telephone Encounter - Leida Cerda PA - 02/21/2014 1211 EDT She hasn't had thyroid labs in over a year and they were abnormal. Please only give her meds to gether thru to an appointment You'll have to call the pharmacy to cx original order and amend it. * Telephone Encounter - Samanta Valles - 02/20/2014 1616 EDT Medication(s) Requested: Lisinopril-hctz, armour thyroid [facility]acy: [facility] Last Refill Date: 11.06.12. 9.10.13, 10.16.13 Last Visit Date: 06.14.12 Next Visit Date: Visit date not found Is patient out of medication?yes Samanta Valles 02/20/2014 16:16 documented in this encounter Plan of Treatment Not on file documented as of this encounter Visit Diagnoses Diagnosis Other iatrogenic hypothyroidism- Primary documented in this encounter Discontinued Medications Medication Sig Discontinue Reason Start Date End Da te Thyroid, Pork, (ARMOUR THYROID) 90 mg tablet Take 1 Tab by mouth daily. Reorder 10/16/2013 02/20/2014 lisinopril-hydrochlorothi azide (PRINZIDE, ZESTORETIC) 20-12.5 mg per tablet Take 1 Tab by mouth daily. Reorder 10/16/2013 02/20/2014 documented as of this encounter Care Teams Installer Soft Top Relationship Specialty Start Date End Date Shannan Vieyra MD PCP - General 04/08/09 03/15/19 documented as of this encounter
--- OUTSIDE RECORDS SUMMARY | 2024-05-24 15:28 | XMS_ITS | Encounter Summary ---
Author Organization [facility] Address [address] [place] [id number] Care Team Providers [employer] Programmer Name Role Phone Shannan Vieyra MD Primary Care Provider Unavail able Reason for Visit * Reason Comments Tick Removal Follow up to Tick bi te, and treatment Encounter Details Date Type Department Care Team (Late st Contact Info) Description 02/26/2016 14:00 EDT Office Visit [facility] Medicine [address] [phone] Pranay Vazquez NP [address] [place] [phone] Erythema migrans (Lyme disease) (Primary Dx) Social History Tobacco Use Types [...] Sign Reading Time Taken Comments Blood Pressure 124/60 02/26/2016 1407 EDT Pulse 84 02/26/2016 1407 EDT Temperature - - Respiratory Rate 20 02/26/2016 1407 EDT Oxygen Saturation - - Inhaled Oxygen Concentration - - Weight - - Height - - Body Mass Index - - documented in this encounter Patient Instructions * Patient Instructions* Pranay Vazquez NP - 02/26/2016 14:26 EDT Check daily for ticks. Call if you develop fever, aches, chills, further rash. documented in this encounter Ordered Prescriptions Prescription Sig Dispensed Refills Start Date End Da te doxycycline (VIBRA-TABS) 100 mg tablet Take 1 Tab by mouth 2 times daily for 14 days. 28 Tab 0 02/26/2016 03/11/2016 documented in this encounter Progress Notes * Pranay Vazquez NP - 02/26/2016 1427 EDT Subjective: Patient ID: Doris Kerr is an 36 y.o. female. Chief Complaint Patient presents with ??? Tick Removal Follow up to Tick bite, and treatment HPI Friend noticed a bullseye rash on her R forearm 4-5 days ago. She was given a prophylactic dose of doxy and advised to followup here. The rash has gone away, but she did bring a picture of it. She is feeling well - no fever, aches, chills. She is penecilin allergic. Has taken doxy in past - tolerated the one dose she took a few days ago.[place] wierd the last time she took it - no rash, SOB, or breathing difficulties with it. Patient Active Problem List Diagnosis ??? Contraceptive management ??? Cervical dysplasia ??? Blindness ??? Acute pyelonephritis ??? Graves' disease ??? Hypertensive disorder ??? Hypothyroidism, iatrogenic ??? Biliary calculus ??? Cholelithiasis Past Medical History Diagnosis Date ??? Meningitis, unspecified 2003 ??? Thyroid disease ??? Hypertension ??? Family history of kidney infection personal hx of kidney infections ??? Asthma 09/23/1994 Mild intermittent Current Outpatient Prescriptions on File Prior to [...] per tablet Take 1 Tab by mouthdaily. MUST BE SEEN IN OFFICE 90 Tab 0 ??? pseudoephedrine (SUDAFED) 60 mg tablet Take 60 mg by mouth every 6 hours ??? thyroid, Pork, (ARMOUR THYROID) 120 mg tablet Take 1 Tab by mouth daily DUE FOR LABS 90 Tab 0 No current facility-administered medications on file prior to visit. Allergies Allergen Reactions ??? Penicillins Anaphylaxis ??? Adhesive Had bad reaction to Steri-Strips. Not sure of full allergy. ??? Bee Sting [Hymenoptera Allergenic Extract] Massive swelling ??? Propranolol Shortness Of Breath ??? Sulfa (Sulfonamide Antibiotics) Hives Social History Substance Use Topics ??? Smoking status: Never Smoker ??? Smokeless tobacco: Never Used ??? Alcohol Use: No Review of Systems Constitutional: Negative. HENT: Negative. Eyes: Negative. Respiratory: Negative. Cardiovascular: Negative. Gastrointestinal: Negative. Genitourinary: Negative. Musculoskeletal: Negative. Skin: Positive for rash. Negative for itching. Neurological: Negative. Endo/Heme/Allergies: Negative. - See HPI Objective: BP 124/60 mmHg Pulse 84 Resp 20 Physical Exam Constitutional: She appears well-developed and well-nourished. No distress. HENT: Head: Normocephalic. Eyes: Conjunctivae are normal. Cardiovascular: Normal rate, regular rhythm, normal heart sounds and intact distal pulses. Pulmonary/Chest: Effort normal and breath sounds normal. Neurological: She is alert. Skin: Skin is warm. She is not diaphoretic. Healing bite joseph R forearm. Picture taken by pt demonstrating clear bullseye erythema rash at the sight which has since resolved. Psychiatric: She has a normal mood and affect. Her behavior is normal. Vitals reviewed. Assessment: Plan: Doris was seen today for tick removal. Diagnoses and all orders for this visit: Erythema migrans (Lyme disease) Abx options discussed with pt. Can't do amox d/t penicillin allergy. Option of trying doxy again vs. Cefuroxime with slight risk of cross allergenicity with her penicillin allergy. She will try doxy and let call if any ill effects. Other orders - doxycycline (VIBRA-TABS) 100 mg tablet; Take 1 Tab by mouth 2 times daily for 14 days. Tick/lyme preventive measures discussed. Patient Instructions Check daily for ticks. Call if you develop fever, aches, chills, further rash. documented in this encounter Plan of Treatment Not on file documented as of this encounter Visit Diagnoses Diagnosis Erythema migrans (Lyme disease)- Primary Lyme disease documented in this encounter Discontinued Medications Medication Sig Discontinue Reason Start Date End Da te doxycycline (VIBRA-TABS) 100 mg tablet Take 1 Tab by mouth once for 1 dose. Therapy completed 02/21/2016 02/26/2016 doxycycline (VIBRA-TABS) 100 mg tabletIndications:Celluli tis Take 1 Tab by mouth 2 times daily for 7 days. Reorder 05/21/2013 02/26/2016 documented as of this encounter Care Teams Plc Programmer Relationship Specialty Start Date End Date Shannan Vieyra MD PCP - General 04/08/09 03/15/19 documented as of this encounter
--- OUTSIDE RECORDS SUMMARY | 2024-05-24 15:28 | XMS_ITS | Encounter Summary ---
Author Organization [facility] Address [address] [place] [id number] Care Team Providers Care Assistant In Nursing Name Role Phone Shannan Vieyra MD Primary Care Provider Unavail able Reason for Visit * Reason Onset Date Comments Medications Refill 08/20/2014 Encounter Details Date Type Department Care Team (Late st Contact Info) Description 08/20/[address] [id number] Shannan Vieyra MD Medications Refill Social History [...] mouth daily. 90 Tab 0 08/20/2014 09/04/2014 lisinopril-hydrochlorothi azide (PRINZIDE, ZESTORETIC) 20-12.5 mg per tablet Take 1 Tab by mouth daily. 90 Tab 0 08/20/2014 09/04/2014 documented in this encounter Miscellaneous Notes * Telephone Encounter - Kayla Shikha - 08/26/2014 0913 EST Left message for patient to call and schedule lab appointment for thyroid cascade. * Telephone Encounter - Frances Christensen - 08/23/2014 1633 EST Scheduled with 09.04.14. Patient out of medication. Needs today. * Telephone Encounter - Aliza Nino RN - 08/21/2014 1533 EST Requested Prescriptions Pending Prescriptions Disp Refills ??? lisinopril-hydrochlorothiazide (PRINZIDE, ZESTORETIC) 20-12.5 mg per tablet 90 Tab 0 Sig: Take 1 Tab by mouth daily. ??? Thyroid, Pork, (ARMOUR THYROID) 90 mg tablet 90 Tab 0 Sig: Take 1 Tab by mouth daily. ??? thyroid, Pork, (ARMOUR THYROID) 15 mg tablet 90 Tab 0 Sig: Take 1 Tab by mouth daily OVER DUE FOR THYROID FUNCTION LABS. Patient was last seen 05/21/13 for an acute visit only. Patient has not had Thyroid checked since October 2012. Message will be forwarded to [facility] to schedule appointment for blood draw prior to receiving medication order. Dionna Caballero RN * Telephone Encounter - Shikah Garza - 08/20/2014 1545 EST Medication(s) Requested: Lisinopril-Hydrochlorothiazide [facility]acy: [facility] Last Refill Date: 02/20/14 #90 No refills Last Visit Date: 06/14/12 Next Visit Date: 09/04/2014 Is patient out of medication? Yes Medication(s) Requested: [place] Thyroid 15 mg Last Refill Date: 02/20/14 #90 No refills Is patient out of medication? Yes Medication(s) Requested: [place] Thyroid 90 mg Last Refill Date: 02/20/14 #90 No refills Is patient out of medication? Yes Shikha Garza 08/20/2014 15:45 documented in this encounter Plan of Treatment Not on file documented as of this encounter Results * (ABNORMAL) THYROID CASCADE (09/02/2014 15:45 EST) TSH 25.78(H) 0.35 - 5.00 uIU/ml 09/02/2014 20:23 EST [facility] Comment: TSH cascade is not recommended for patients in which pituitary or hypothalamic disorders are suspected. Blood specimen (specimen) BLOOD SPECIMEN / Unknown 09/02/2014 15:45 EST 09/02/2014 18:01 EST Shannan Vieyra MD CHEMISTRY & BLOOD GA S ORDERABLES [facility] [address] [place] [address] documented in this encounter Visit Diagnoses Diagnosis Graves disease- Primary Toxic diffuse goiter without mention of thyrotoxic crisis or storm documented in this encounter Discontinued Medications Medication Sig Discontinue Reason Start Date End Da te lisinopril-hydrochlorot hiazide (PRINZIDE, ZESTORETIC) 20-12.5 mg per tablet Take 1 Tab by mouth daily. Reorder 02/20/2014 08/20/2014 Thyroid, Pork, (ARMOUR THYROID) 90 mg tablet Take 1 Tab by mouth daily. Reorder 02/20/2014 08/20/2014 thyroid, Pork, (ARMOUR THYROID) 15 mg tablet Take 1 Tab by mouth daily OVER DUE FOR THYROID FUNCTION LABS. Reorder 02/20/2014 08/20/2014 documented as of this encounter Care Teams Assistant In Nursing Relationship Specialty Start Date End Date Shannan Vieyra MD PCP - General 04/08/09 03/15/19 documented as of this encounter
--- OUTSIDE RECORDS SUMMARY | 2024-05-24 15:28 | XMS_ITS | Encounter Summary ---
Author Organization [facility] Address [address] [place] [address] Care Team Providers Care Montessori Paraprofessional Name Role Phone Shannan Vieyra MD Primary Care Provider Unavail able Reason for Visit * Reason Comments Abdominal Pain has appt with GI in April, for eval of gallstones with pancreatic flare ups. pt with increasing frequency and increasing pain. pt reports pain 9/10, 2 percocets at 2030. pt has been eating. + nausea. Encounter Details Date Type Department Care Team (Late st Contact Info) Description 02/28/2014 23:51 EDT - 03/01/2014 3:09 EDT Emergency [facility] Emergency Department - [address] [place] [address], [place] [id number] Annie Pulido MD MPH [address] [facility], [address] [place] [address] Emergency, MD Keli Biliary calculus (Primary Dx) Discharge Disposition: Home or Self [...] Sign Reading Time Taken Comments Blood Pressure 103/60 03/01/2014 0307 EDT Pulse 78 02/28/2014 2357 EDT Temperature 36.1 ??C (97 ??F) 02/28/2014 2357 EDT Respiratory Rate 16 02/28/2014 2357 EDT Oxygen Saturation 99% 03/01/2014 0307 EDT Inhaled Oxygen Concentration - - Weight 77.1 kg (170 lb) 02/28/2014 2357 EDT Height 162.6 cm (5' 4) 02/28/2014 2357 EDT Body Mass Index 29.18 02/28/2014 2357 EDT documented in this encounter Discharge Instructions * Discharge Instructions* Annie Pulido MD - 03/01/2014 2:36 EDT Call to schedule a followup appointment with the general surgery clinic to discuss removal of your gallbladder. Stay well-hydrated and avoid fatty foods. Return to the ED if you develop worsening pain, fevers, yellowing of your skin, or other new concerns. Use Zofran 4 mg every 8 hours as needed for nausea. Use Dilaudid 4 mg every 6 hours as needed for more severe pain. If you have recurrent severe pain please return to the ED. * Attachments The following attachments cannot be sent through Care Everywhere. * GALLSTONES: AFTER YOUR VISIT TO THE EMERGENCY ROOM (DANISH) documented in this encounter Medications at Time [...] 1 dose. 1 Syringe 6 05/21/2013 09/04/2014 HYDROmorphone (DILAUDID) 2 mg tablet Take 1-2 Tabs by mouth every 6 hours as needed for Pain. Earliest Fill Date: 03/01/14 10 Tab 0 03/01/2014 04/19/2014 levonorgestrel-ethinyl estradiol (SEASONALE) 0.15-30 mg-mcg per tablet [...] Dispensed Refills Start Date End Da te HYDROmorphone (DILAUDID) 2 mg tablet Take 1-2 Tabs by mouth every 6 hours as needed for Pain. Earliest Fill Date: 03/01/14 10 Tab 0 03/01/2014 04/19/2014 documented in this encounter Discharge Disposition Disposition Code Departure Means Destination Home or Self Care Car Home documented in this encounter ED Notes * Toshia Brooks RN - 03/01/2014 0059 EDT Blood drawn via saline lock per protocol, tiger and purple tube(s) sent to lab per order. * Annie Pulido MD - 03/01/2014 0021 EDT DOS: 02/28/2014 Chief Complaint Patient presents with ??? Abdominal Pain has appt with GI in April, for eval of gallstones with pancreatic flare ups. pt with increasing frequency and increasing pain. pt reports pain 9/10, 2 percocets at 2030. pt has been eating. + nausea. The patient is a 34 y.o. female who presents today with Abdominal Pain HPI Comments: I, Dinora Glaser, am scribing for Annie Pulido MD while he/she is personally performing the service. Dinora Glaser 03/01/2014 0:21 Doris Krer is a 34 y.o. female with a history of cholelithiasis and pancreatitis who presents with LUQ pain that radiates to her back onset 20:00 tonight. She endorses a history of similar pain intermittently for the past 1.5 years and states these episodes have increased in frequency and intensity over the past few months. She last had CT imaging in June 2013 which was consistent with cholelithiasis without evidence of cholecystitis and has an appointment with GI in April to evaluate her likely gallstone pancreatitis. Tonight, she took 2 percocet at 20:30 without adequate relief of her pain. She endorses some nausea after taking the percocet, but denies fever, chest pain, and shortness of breath. Her pain is not affected by food and occurs mostly in the evening. The history is provided by the patient. Abdominal Pain Pain location: LUQ Pain radiates to: Back Pain severity: Moderate Onset quality: Gradual Duration: 4 hours Timing: Constant Progression: Unchanged Chronicity: Recurrent Context: not previous surgeries Relieved by: Nothing Ineffective treatments: percocet. Associated symptoms: nausea Associated symptoms: no chest pain, no chills, no fever, no shortness of breath and no vomiting Risk factors: obesity Review of Systems Constitutional: Negative for fever and chills. Respiratory: Negative for shortness of breath. Cardiovascular: Negative for chest pain. Gastrointestinal: Positive for nausea and abdominal pain. Negative for vomiting. All other systems reviewed and are negative. Past Medical History Diagnosis Date ??? Meningitis, [...] Sister Vital Signs Vitals Reassessment?: Yes Temp: 36.1 ??C (97 ??F) Temp src: Tympanic Pulse: 78 Resp: 16 SpO2: 100 % BP: 117/67 mmHg BP Device: BP Machine Patient Position: Sitting BP Cuff Location: Right arm O2 Device: None (Room air) Physical Exam Nursing note and vitals reviewed. Constitutional: She is oriented to person, place, and time. She appears well- developed and well-nourished. No distress. HENT: Head: Normocephalic and atraumatic. Eyes: EOM are normal. Neck: Neck supple. Cardiovascular: Normal rate, regular rhythm and intact distal pulses. Pulmonary/Chest: Effort normal and breath sounds normal. No respiratory distress. Abdominal: Soft. She exhibits no distension. There is tenderness (minimal LUQ). Musculoskeletal: She exhibits no edema. Neurological: She is alert and oriented to person, place, and time. Skin: Skin is warm and dry. Psychiatric: She has a normal mood and affect. Radiology orders: None Lab Results HEMAGRAM AND DIFFERENTIAL (Final result) Result time: 03/01/14 00:59:16 BASIC METABOLIC PANEL (Final result) Abnormal Component (Lab Inquiry) Collection Time Result Time Sodium Potassium Chloride CO2 BUN 03/01/14 00:35:00 03/01/14 01:16:46 137 4.4 103 25 15 Collection Time Result Time Creatinine GFR, Calculated Calcium Calculated Calcium Glucose, Serum 03/01/14 00:35:00 03/01/14 01:16:46 0.64 >60 8.9 9.4 139 (H) Collection Time Result Time Fasting? 03/01/14 00:35:00 03/01/14 01:16:46 Unknown HEPATIC FUNCTION PANEL (ALB,ALK PHOS,ALT,AST,DBIL,TOT YOGI,TOT PROT) (Final result) Component (Lab Inquiry) Collection Time Result Time Albumin Total Protein Total Alkaline Phosphatase ALT AST 03/01/14 00:35:00 03/01/14 01:16:46 3.9 7.1 55 18 15 Collection Time Result Time Unconjugated Bilirubin Conjugated Bilirubin Bilirubin, Total 03/01/14 00:35:00 03/01/14 01:16:46 0.1 0.0 <0.5 LIPASE (Final result) Component (Lab Inquiry) Collection Time Result Time LIPASE 03/01/14 00:35:00 03/01/14 01:16:46 85 HEMAGRAM (Final result) Component (Lab Inquiry) Collection Time Result Time WBC RBC Hemoglobin HCT MCV 03/01/14 00:35:00 03/01/14 01:02:26 8.79 4.49 13.0 39.3 87 Collection Time Result Time MCH MCHC PLT RDW-CV 03/01/14 00:35:00 03/01/14 01:02:26 28.9 33.1 217 14.1 DIFFERENTIAL (Final result) Component (Lab Inquiry) Collection Time Result Time Neutrophils Lymphocytes Monocytes Eosinophils Basophils 03/01/14 00:35:00 03/01/14 01:02:26 67.1 23.2 6.6 2.7 0.4 Collection Time Result Time ABS Neutrophils ABS Lymphs ABS Monocytes ABS Eosinophils ABS Basophils 03/01/14 00:35:00 03/01/14 01:02:26 5.89 2.04 0.58 0.24 0.04 Collection Time Result Time Type of Diff: 03/01/14 00:35:00 03/01/14 01:02:26 Automated Procedures ED Course: A medical screening exam was performed. 34 y.o. female with a history of cholelithiasis and pancreatitis who presents with LUQ pain that radiates to her back onset 20:00 tonight. She has had similar pain intermittently for over a year and has an appointment in April with GI to evaluate her possible gallstone pancreatitis without history of cholecystitis. She had minimal LUQ tenderness on exam and was without fever. Given IV Dilaudid, Zofran, and fluids. Her lab studies were significant for normal lipase and LFTs. Ultrasound was considered, but unavailable tonight. She felt improved on reassessment and given lack of fever and significant abdominal tenderness, suspicion for acute cholecystitis is low. I advised her to follow up with general surgeryfor evaluation of possible cholecystectomy. Pt discharged home to take Zofran and Dilaudid as needed and return for fever or other worsening symptoms. Disposition: Discharged The patient's pain was managed to an adequate level weighing risk vs. benefit of further medications. Upon departure from the Emergency Department, the patient's pain was 5 on a zero to ten scale. Condition at departure from the Emergency Department: Good Discharge Prescriptions New Prescriptions No Discharge Prescriptions for this patient MDM Number of Diagnoses or Management Options Biliary calculus: new, needed workup Diagnosis management comments: 4 Amount and/or Complexity of Data Reviewed Clinical lab tests: ordered and reviewed Review and summarize past medical records: yes Discuss the patient with other providers: yes (radiology) Final diagnoses: Biliary calculus PCP: Shannan Vieyra MD 03/01/2014 2:35 I,Annie Pulido MD, have read and approve the above scribe note. documented in this encounter Plan of Treatment Not on file documented as of this encounter Procedures Procedure Name Priority Date/Time Associated Diagnosis Comments DIFFERENTIAL STAT 03/01/2014 0:35 EDT COMPLETE BLOOD COUNT STAT 03/01/2014 0:35 EDT COMPLETE BLOOD COUNT AND DIFFERENTIAL STAT 03/01/2014 0:35 EDT LIPASE STAT 03/01/2014 0:35 EDT HEPATIC FUNCTION PANEL (ALB,ALK PHOS,ALT,AST,DBIL,TOT YOGI,TOT PROT) STAT 03/01/2014 0:35 EDT BASIC METABOLIC PANEL (BMP) STAT 03/01/2014 0:35 EDT documented in this encounter Results * DIFFERENTIAL (03/01/2014 0:35 EDT) % Neutrophils 67.1 45.5 - 79.7 % [facility] % Lymphocytes 23.2 15.0 - 46.8 % [facility] % Monocytes 6.6 1.8 - 12.0 % [facility] % Eosinophils 2.7 0.6 - 6.9 % [facility] % Basophils 0.4 0.2 - 1.4 % [facility] ABS Neutrophils 5.89 2.20 - 8.85 K/cmm [facility] ABS Lymphs 2.04 1.09 - 3.30 K/cmm [facility] ABS Monocytes 0.58 0.1 - 0.8 K/cmm [facility] ABS Eosinophils 0.24 0.03 - 0.61 K/cmm [facility] ABS Basophils 0.04 0.01 - 0.11 K/cmm [facility] Type of Diff: Automated [facility] 03/01/2014 0:35 EDT 03/01/2014 0:58 EDT Annie Pulido MD MPH HEMATOLOGY & PF4 ORDERABLES Performing Organization Address City/[facility]/ZIP Co de Phone Number [facility] [address] [place] [address] * HEMAGRAM (03/01/2014 0:35 EDT) WBC 8.79 4.0 - 12.4 K/cmm [facility] RBC 4.49 3.86 - 5.04 M/cmm [facility] Hemoglobin 13.0 11.6 - 15.2 gm/dl [facility] HCT 39.3 34.9 - 44.4 % [facility] MCV 87 81 - 98 fl [facility] MCH 28.9 26.7 - 33.3 pg [facility] MCHC 33.1 32.1 - 35.9 gm/dl [facility] PLT 217 141 - 320 K/cmm [facility] RDW-CV 14.1 11.7 - 14.6 % [facility] 03/01/2014 0:35 EDT 03/01/2014 0:58 EDT Annie Pulido MD MPH HEMATOLOGY & PF4 ORDERABLES Performing Organization Address [facility] Co de Phone Number [facility] [address] [place] [address] * LIPASE (03/01/2014 0:35 EDT) Pathologist [facility] Lipase 85 0 - 250 U/L [facility] Blood specimen (specimen) 03/01/2014 0:35 EDT 03/01/2014 0:58 EDT Annie Pulido MD MPH CHEMISTRY & BLOOD GAS ORDERABLES Performing Organization Address City/[facility]/ZIP Co de Phone Number [facility] [address] [place] [address] * HEPATIC FUNCTION PANEL (ALB,ALK PHOS,ALT,AST,DBIL,TOT YOGI,TOT PROT) (03/01/2014 0:35 EDT) Pathologist [facility] Albumin 3.9 3.4 - 4.9 g/dl [facility] Total Protein 7.1 6.5 - 8.3 g/dl [facility] Total Alkaline Phosphatase 55 38 - 126 U/L [facility] ALT 18 9 - 52 U/L [facility] AST 15 15 - 46 U/L [facility] Unconjugated Bilirubin 0.1 0.0 - 1.1 mg/dl [facility] Conjugated Bilirubin 0.0 0.0 - 0.3 mg/dl [facility] Bilirubin, Total <0.5 <1.4 mg/dl [facility] Blood specimen (specimen) 03/01/2014 0:35 EDT 03/01/2014 0:58 EDT Annie Pulido MD MPH CHEMISTRY & BLOOD GAS ORDERABLES Performing Organization Address [facility] Co de Phone Number [facility] [address] [place] [address] * (ABNORMAL) BASIC METABOLIC PANEL (03/01/2014 0:35 EDT) Sodium 137 136 - 145 mEq/L [facility] Potassium 4.4 3.5 - 5.0 mEq/L [facility] Chloride 103 96 - 110 mEq/L [facility] CO2 25 24 - 32 mEq/L [facility] BUN 15 10 - 26 mg/dl [facility] Creatinine 0.64 0.52 - 1.04 mg/dl [facility] GFR, Calculated >60 >60 ml/min/1.7 3m2 [facility] Calcium 8.9 8.5 - 10.5 mg/dl [facility] Calculated Calcium 9.4 8.5 - 10.5 mg/dl [facility] Glucose, Serum 139(H) 70 - 100 mg/dl [facility] Fasting? Unknown [facility] Blood specimen (specimen) 03/01/2014 0:35 EDT 03/01/2014 0:58 EDT Annie Pulido MD MPH CHEMISTRY & BLOOD GAS ORDERABLES Performing Organization Address City/[facility] Co de Phone Number [facility] [address] [place] [address] documented in this encounter Visit Diagnoses Diagnosis Biliary calculus- Primary Calculus of gallbladder without mention of cholecystitis or obstruction documented in this encounter Administered Medications Inactive Administered Medications - up to 3 most recent administrations Medication Order MAR Action Action Date Dose Rate Site HYDROmorphone (PF) (DILAUDID) 1 mg/mL injection 1 mg 1 mg, intravenous, NOW X1, 1 dose, On Tue03/01/14 at 0045, STAT Given 03/01/2014 0:59 EDT 1 mg Hydromorphone 2 mg Tab STARTER PACK 1 Package, oral, NOW X1, 1 dose, On Tue03/01/14 at 0245, STAT Given 03/01/2014 3:08 EDT 1 Package ondansetron (PF) (ZOFRAN) injection 4 mg 4 mg, intravenous, NOW X1, 1 dose, On Tue03/01/14 at 0045, STAT Given 03/01/2014 0:59 EDT 4 mg ondansetron 4 mg ODT tab STARTER PACK 1 Package, oral, NOW X1, 1 dose, On Tue03/01/14 at 0245, STAT Given 03/01/2014 3:08 EDT 1 Package sodium chloride 0.9 % BOLUS 1,000 mL 1,000 mL, intravenous, Once (Without Time Specified), 1 dose, Starting on Tue03/01/14 at 0045, Until Tue03/01/14 at 005, STAT Given 03/01/2014 0:59 EDT 1,000 mL documented in this encounter Discontinued Medications Medication Sig Discontinue Reason Start Date End Da te oxyCODONE-acetaminophen (PERCOCET) 5-325 mg per tablet Take 1 Tab by mouth every 6 hours as needed for Pain for 12 doses. 06/24/2013 03/01/2014 oxyCODONE-acetaminophen (PERCOCET) 5-325 mg per tablet Take 1 Tab by mouth every 6 hours as needed for Pain for 12 doses. 06/24/2013 03/01/2014 documented as of this encounter Active and Recently Administered Medications Times are shown in EDT. Scheduled Medication Order 02/27/2014 02/28/2014 03/01/2014 HYDROmorphone (PF) (DILAUDID) 1 mg/mL injection 1 mg (COMPLETED) 1 mg, intravenous, NOW X1, 1 dose, On Tue03/01/14 at 0045, STAT 0059 (Given - Provid er: Toshia Brooks RN) Hydromorphone 2 mg Tab STARTER PACK (COMPLETED) 1 Package, oral, NOW X1, 1 dose, On Tue03/01/14 at 0245, STAT 0308 (Given - Provid er: Toshia Brooks RN) ondansetron (PF) (ZOFRAN) injection 4 mg (COMPLETED) 4 mg, intravenous, NOW X1, 1 dose, On Tue03/01/14 at 0045, STAT 0059 (Given - Provid er: Toshia Brooks RN) ondansetron 4 mg ODT tab STARTER PACK (COMPLETED) 1 Package, oral, NOW X1, 1 dose, On Tue03/01/14 at 0245, STAT 0308 (Given - Provid er: Toshia Brooks RN) sodium chloride 0.9 % BOLUS 1,000 mL (COMPLETED) 1,000 mL, intravenous, Once (Without Time Specified), 1 dose, Starting on Tue03/01/14 at 0045, Until Tue03/01/14 at 0059, STAT 0059 (Given - Provid er: Toshia Brooks RN) documented in this encounter Orders Nursing Count Last Ordered Date First Orde red Date INSERT PERIPHERAL IV 1 03/01/2014 documented in this encounter Care Teams Montessori Paraprofessional Relationship Specialty Start Date End Date Shannan Vieyra MD PCP - General 04/08/09 03/15/19 documented as of this encounter
--- OUTSIDE RECORDS SUMMARY | 2024-05-24 15:28 | XMS_ITS | Encounter Summary ---
Author Organization [facility] Address [address] [place] [address] Care Team Providers Care Windows System Admin Name Role Phone Shannan Winter MD Primary Care Provider Unavail able Reason for Visit * Reason Onset Date Comments Medications Refill 09/19/2015 Encounter Details Date Type Department Care Team (Late st Contact Info) Description 09/19/2015 Refill [facility] Family Medicine [address] [address] Shannan Winter MD Medications Refill Social History Tobacco Use [...] thyroid, Pork, (ARMOUR THYROID) 120 mg tabletIndications:Graves' disease,Hypothyroidism, unspecified hypothyroidism type Take 1 Tab by mouth daily DUE FOR LABS 90 Tab 0 09/22/2015 04/15/2016 documented in this encounter Miscellaneous Notes * Telephone Encounter - Dionna Caballero, RN - 09/22/2015 0906 EST Requested Prescriptions Signed Prescriptions Disp Refills ??? thyroid, Pork, (ARMOUR THYROID) 120 mg tablet 90 Tab 0 Sig: Take 1 Tab by mouth daily DUE FOR LABS Authorizing Provider: SHANNAN WINTER Ordering User: DIONNA CABALLERO Patient is due for labs. Left message informing her of this. Order placed. Temporary 3 month refills approved at this time. Dionna Caballero, RN * Telephone Encounter - Christina Lianne - 09/19/2015 1652 EST Medication(s) Requested: Armor thyroid 120 mg tab Pharmacy: [facility] Last Refill Date: 09/04/2014 Last Visit Date: 09/04/2014 Next Visit Date: Visit date not found Is patient out of medication? yes Lianne Vasquez 09/19/2015 16:51 documented in this encounter Plan of Treatment Not on file documented as of this encounter Visit Diagnoses Diagnosis Graves' disease- Primary Toxic diffuse goiter without mention of thyrotoxic crisis or storm Hypothyroidism, unspecified hypothyroidism type documented in this encounter Discontinued Medications Medication Sig Discontinue Reason Start Date End Da te thyroid, Pork, (ARMOUR THYROID) 120 mg tabletIndications:Graves' disease,Other iatrogenic hypothyroidism Take 1 Tab by mouth daily. Reorder 09/04/2014 09/22/2015 documented as of this encounter Care Teams Windows System Admin Relationship Specialty Start Date End Date Shannan Winter MD PCP - General 04/08/09 03/15/19 documented as of this encounter
--- OUTSIDE RECORDS SUMMARY | 2024-05-24 15:28 | XMS_ITS | Encounter Summary ---
Author Organization [facility] Address [address] [place] [address] Care Team Providers Care Finish Machine Tender Name Role Phone Shannan Vieyra MD Primary Care Provider Unavail able Reason for Visit * Reason Comments Hypertension medication refills f or thyroid Encounter Details Date Type Department Care Team (Late st Contact Info) Description 09/04/2014 10:30 EST Office Visit [facility] Family Medicine [place] [id number] Leida Cerda PA-C [address] [place] [phone] Other iatrogenic hypothyroidism (Primary Dx); Bee sting; Hypertensive disorder; Graves' disease; Vitamin D deficiency Social History Tobacco Use Types Packs/Day Years [...] Sign Reading Time Taken Comments Blood Pressure 108/78 09/04/2014 1055 EST Pulse 80 09/04/2014 1055 EST Temperature 36.8 ??C (98.3 ??F) 09/04/2014 1055 EST Respiratory Rate - - Oxygen Saturation - - Inhaled Oxygen Concentration - - Weight 82.6 kg (182 lb) 09/04/2014 1055 EST Height - - Body Mass Index 31.24 05/14/2014 1431 EDT documented in this encounter Discharge Diagnoses Diagnosis 244.3 IATROGEN HYPOTHYROID NEC[ICD-9-CM] 989.5 TOXIC EFFECT VENOM[ICD-9-CM] E905.3 HORNET/WASP/BEE STING[ICD-9-CM] 401.9 HYPERTENSION NOS[ICD-9-CM] 242.00 TOX DIF GOITER NO CRISIS[ICD-9-CM] documented in this encounter Ordered Prescriptions Prescription Sig Dispensed Refills Start Date End Da te thyroid, Pork, (ARMOUR THYROID) 120 mg tabletIndications:Graves' disease,Other iatrogenic hypothyroidism Take 1 Tab by mouth daily. 90 Tab 4 09/04/2014 09/22/2015 EPINEPHrine (EPIPEN) 0.3 mg/0.3 mL (1:1,000) injectionIndications:Bee sting Inject 0.3 mL into the muscle once as needed for up to 1 dose (allergic reaction). 1 Syringe 6 09/04/2014 08/24/2016 lisinopril-hydrochlorothia zide (PRINZIDE, ZESTORETIC) 20-12.5 mg per tabletIndications:Hyperten sive disorder Take 1 Tab by mouth daily. 90 Tab 4 09/04/2014 12/01/2015 documented in this encounter Progress Notes * Leida Cerda PA - 09/04/2014 1256 EST Subjective: Patient ID: Doris Kerr is an 34 y.o. female. Chief Complaint Patient presents with ??? Hypertension medication refills for thyroid Hypertension Pertinent negatives include no chest pain, palpitations or shortness of breath. Following up on BP and thyroid. No home BP checks. Feels well. Taking meds regularly. Had recent labs. Sees Dr. Martinez for scraper meat care. 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 Patient Active Problem List Diagnosis ??? Contraceptive management ??? Cervical dysplasia ??? Blindness ??? Acute pyelonephritis ??? Graves' disease ??? Hypertensive disorder ??? Other iatrogenic hypothyroidism ??? Biliary calculus ??? Cholelithiasis Past Medical History Diagnosis Date ??? Meningitis, unspecified 2003 ??? Thyroid disease ??? Hypertension ??? Family history of kidney infection personal hx of kidney infections ??? Asthma 09/23/1994 Mild intermittent Current Outpatient Prescriptions on File Prior to Visit Medication Sig Dispense Refill ??? levonorgestrel-ethinyl estradiol (SEASONALE) 0.15-30 mg-mcg per [...] ??? Alcohol Use: No Review of Systems Respiratory: Negative for shortness of breath. Cardiovascular: Negative for chest pain, palpitations and leg swelling. Gastrointestinal: Negative for diarrhea and constipation. - See HPI Objective: BP 108/78 Pulse 80 Temp(Src) 36.8 ??C (98.3 ??F) (Tympanic) Wt 82.555 kg (182 lb) BMI 31.22kg/m2 LMP 08/06/2014 Physical Exam Nursing note and vitals reviewed. Constitutional: She is oriented to person, place, and time. She appears well- developed and well-nourished. No distress. Neck: No thyromegaly present. Cardiovascular: Normal rate, regular rhythm and normal heart sounds. Pulmonary/Chest: Effort normal and breath sounds normal. Musculoskeletal: She exhibits no edema. Neurological: She is alert and oriented to person, place, and time. Psychiatric: She has a normal mood and affect. Her behavior is normal. Reviewed labs Assessment: Encounter Diagnoses Name Primary? Bee sting ??? Hypertensive disorder ??? Graves' disease ??? Other iatrogenic hypothyroidism Yes ??? Vitamin D deficiency Plan: Doris was seen today for hypertension. Diagnoses and associated orders for this visit: Graves' disease/Other iatrogenic hypothyroidism - thyroid, Pork, (ARMOUR THYROID) 120 mg tablet; Take 1 Tab by mouth daily. (increase from 105mg) - Thyroid [place] (3 Months); Future Bee sting - EPINEPHrine (EPIPEN) 0.3 mg/0.3 mL (1:1,000) injection; Inject 0.3 mL into the muscle once as needed for up to 1 dose (allergic reaction). Hypertensive disorder - lisinopril-hydrochlorothiazide (PRINZIDE, ZESTORETIC) 20-12.5 mg per tablet; Take 1 Tab by mouth daily. Vitamin D deficiency 2000 IU thru the winter and then 1000 IU daily Patient Education Topic: as above Method: Verbal Taught to: Patient Barriers: None Outcomes: verbalized understanding Signature:DT documented in this encounter Plan of Treatment Not on file documented as of this encounter Visit Diagnoses Diagnosis Other iatrogenic hypothyroidism- Primary Bee sting Toxic effect of venom Hypertensive disorder Unspecified essential hypertension Graves' disease Toxic diffuse goiter without mention of thyrotoxic crisis or storm Vitamin D deficiency Unspecified vitamin D deficiency documented in this encounter Discontinued Medications Medication Sig Discontinue Reason Start Date End Da te Thyroid, Pork, (ARMOUR THYROID) 90 mg tablet Take 1 Tab by mouth daily. 08/20/2014 09/04/2014 thyroid, Pork, (ARMOUR THYROID) 15 mg tablet Take 1 Tab by mouth daily OVER DUE FOR THYROID FUNCTION LABS. 08/20/2014 09/04/2014 HYDROcodone-acetaminoph en (NORCO) 5-325 mg tablet Take 1 Tab by mouth every 6 hours as needed for Pain. 04/19/2014 09/04/2014 lisinopril-hydrochlorot hiazide (PRINZIDE, ZESTORETIC) 20-12.5 mg per tablet Take 1 Tab by mouth daily. Reorder 08/20/2014 09/04/2014 EPINEPHrine (EPIPEN) 0.3 mg/0.3 mL (1:1,000) injectionIndications:Be e sting Inject 0.3 mL into the muscle once as needed (allergic reaction) for 1 dose. Reorder 05/21/2013 09/04/2014 documented as of this encounter Care Teams Finish Machine Tender Relationship Specialty Start Date End Date Shannan Vieyra MD PCP - General 04/08/09 03/15/19 documented as of this encounter
--- OUTSIDE RECORDS SUMMARY | 2024-05-24 15:28 | XMS_ITS | Encounter Summary ---
Author Organization [facility] Address [address] [place] [address] Care Team Providers Care Electron Gun Inspector Name Role Phone Shannan Vieyra MD Primary Care Provider Unavail able Reason for Referral * Consult (3 - 10 Business Days) - Specialty Report Received Specialty Diagnoses / Procedures Referred By Contact Referred To Contact Gastroenterology and Hepatology Diagnoses Pancreatitis, gallstone Shannan [place] [address] Rk Stephens MD [address] [place] [address] [address] [place] [address] Referral ID Status Reason Start Date Expiration Date Visits Requested Visits Authorized [id number] Specialty Report Received Specialty Services Required 10/10/2013 1 1 Question Answer Reason for Request: recurrent episodes of abdominal pain- has gallstones and now an episode of pancreatitis Reason for Visit * Reason Onset Date Comments Results 10/10/[address] [facility] Encounter Details Date Type Department Care Team (Late st Contact Info) Description 10/10/2013 Telephone [facility] Medicine - [address] [address] Shannan Vieyra MD Results (lab results from [facility]) Social History Tobacco Use Types Packs/Day Years Used Date Smoking Tobacco: Never Alcohol Use Standard Drinks/Week Comments No 0 (1 standard drink = 0.6 oz pur e alcohol) Sex and Gender Information Value Date Recorded Sex Assigned at Not on file Gender Identity Not on file Sexual Orientation Not on file documented as of this encounter Miscellaneous Notes * Telephone Encounter - Shannan Vieyra MD - 10/10/2013 1530 EST I called and left Doris a message that I would like to talk to her about lab results called to me from [facility] where she had been seen Oct 08 for abdominal pain that was coming and going. Her Amylase is 165 and her Lipase is 1896. She had been evaluated in June in [facility] ER for similar episode of abdominal pain and her labs were normal and CT showed gallstones but no acute cholelithiasis. She was advised (per her report) to follow up with GI but she declined to do so since shedid not have insurance. She does have insurance now. She is feeling fine today. She does not drink and did not have anything last night on new . She will also avoid fatty food. She is to report to [facility] ER if any recurrence of pain and I am referring her oswaldo to GI. She may be having gallstone related pancreatitis. documented in this encounter Plan of Treatment Scheduled Referrals Name Type Priority Associated Diagnoses Order Schedule AMB CONSULT GASTROENTEROLOGY Outpatient Referral Routine Pancreatitis, gallstone Ordered: 10/10/2013 documented as of this encounter Visit Diagnoses Diagnosis Pancreatitis, gallstone- Primary Acute pancreatitis documented in this encounter Care Teams Electron Gun Inspector Relationship Specialty Start Date End Date Shannan Vieyra MD PCP - General 04/08/09 03/15/19 documented as of this encounter
--- OUTSIDE RECORDS SUMMARY | 2024-05-24 15:28 | XMS_ITS | Encounter Summary ---
Author Organization [facility] Address [address] [place] [address] Care Team Providers Care Distribution Manager Name Role Phone Shannan Vieyra MD Primary Care Provider Unavail able Reason for Visit * Reason Comments Insect Bite bee sting 3 days ago on right hand, swollen Encounter Details Date Type Department Care Team (Late st Contact Info) Description 05/21/2013 9:15 EDT Office Visit [address] [address] Bridget Grubbs, DO [address] [place] [address] Bee sting (Primary Dx); Cellulitis Social History Tobacco Use Types Packs/Day Years [...] Sign Reading Time Taken Comments Blood Pressure 116/84 05/21/2013 0924 EDT Pulse 70 05/21/2013 0924 EDT Temperature 37.3 ??C (99.2 ??F) 05/21/2013 0924 EDT Respiratory Rate - - Oxygen Saturation - - Inhaled Oxygen Concentration - - Weight 88.5 kg (195 lb) 05/21/2013 0924 EDT Height - - Body Mass Index 33.47 03/08/2013 2311 EDT documented in this encounter Ordered Prescriptions Prescription Sig Dispensed Refills Start Date End Da te doxycycline (VIBRA-TABS) 100 mg tabletIndications:Celluli tis Take 1 Tab by mouth 2 times daily for 7 days. 14 Tab 0 05/21/2013 02/26/2016 EPINEPHrine (EPIPEN) 0.3 mg/0.3 mL (1:1,000) injectionIndications:Bee sting Inject 0.3 mL into the muscle once as needed (allergic reaction) for 1 dose. 1 Syringe 6 05/21/2013 09/04/2014 documented in this encounter Progress Notes * rBidget Morales DO - 05/21/2013 0939 EDT Subjective: Patient ID: Doris Kerr is an 33 y.o. female. Chief Complaint Patient presents with ??? Insect Bite bee sting 3 days ago on right hand, swollen HPI Doris presents to clinic today for follow up after being stung by a bee on right hand 4 days ago. Right hand is still quite painful and swollen, but overall has significantly been decreasing. Right hand is red and warm to touch. Has been taking benadryl 50 mg every 6 hours and motrin, which have helped somewhat. History of bee sting as a child which also caused severe swelling. Patient Active Problem List Diagnoses ??? Asthma ??? Contraceptive management ??? Cervical dysplasia ??? Blindness ??? Acute pyelonephritis ??? Graves' disease ??? Hypertension ??? Other iatrogenic hypothyroidism Past Medical History Diagnosis Date ??? Meningitis 2003 ??? Thyroid disease ??? Hypertension Current Outpatient Prescriptions on File Prior to Visit Medication Sig Dispense Refill ??? thyroid (ARMOUR THYROID) 15 mg tablet Take 1 Tab by mouth daily. 90 Each 3 ??? thyroid (ARMOUR) 90 mg tablet Take 1 Tab by mouth daily. (Cancel order/refills on 120 mg dose) 90 Each 3 ??? lisinopril-hydrochlorothiazide (PRINZIDE, ZESTORETIC) 20-12.5 mg per tablet Take 1 Tab by mouthdaily. 90 Tab 3 ??? levonorgestrel-ethinyl estradiol (SEASONALE) 0.15-30 mg-mcg per tablet Take 1 Tab by mouth daily. Allergies Allergen Reactions ??? Penicillins Anaphylaxis ??? Bee Sting (Hymenoptera Allergenic Extract) Massive swelling ??? Propranolol ??? Sulfa (Sulfonamide Antibiotics) Hives Social History Substance Use Topics ??? Smoking status: Never Smoker ??? Smokeless tobacco: Not on file ??? Alcohol Use: No Review of Systems Constitutional: Negative for fever and chills. Musculoskeletal: Hand pain Skin: Positive for rash. - See HPI Objective: BP 116/84 Pulse 70 Temp(Src) 37.3 ??C (99.2 ??F) (Tympanic) Wt 88.451 kg (195 lb) Physical Exam Nursing note and vitals reviewed. Constitutional: She is oriented to person, place, and time. She appears well- developed and well-nourished. No distress. HENT: Head: Normocephalic and atraumatic. Pulmonary/Chest: Effort normal. No respiratory distress. Neurological: She is alert and oriented to person, place, and time. Coordination normal. Skin: Marked swelling and redness of right hand with linear demarcation at wrist Assessment: Plan: Doris was seen today for insect bite. Diagnoses and associated orders for this visit: Bee sting We discussed that with significant swelling caused from bee sting it would be a good idea to have epi pen on hand in case she were to experience a bee sting to face/neck/mouth. Counseled on how to use medication. - EPINEPHrine (EPIPEN) 0.3 mg/0.3 mL (1:1,000) injection; Inject 0.3 mL into the muscle once as needed (allergic reaction) for 1 dose. Cellulitis - doxycycline (VIBRA-TABS) 100 mg tablet; Take 1 Tab by mouth 2 times daily for 7 days. Return if symptoms worsen or fail to improve. Patient Education Topic: as above Method: Verbal Taught to: Patient Barriers: None Outcomes: verbalized understanding documented in this encounter Plan of Treatment Not on file documented as of this encounter Visit Diagnoses Diagnosis Bee sting- Primary Toxic effect of venom Cellulitis Cellulitis and abscess of unspecified site documented in this encounter Discontinued Medications Medication Sig Discontinue Reason Start Date End Da te albuterol (PROVENTIL HFA, VENTOLIN HFA) 90 mcg/actuation inhalerIndications:RAD (reactive airway disease) Inhale 2 Puffs as directed every 4 hours as needed for Wheezing. 11/29/2011 05/21/2013 documented as of this encounter Care Teams Distribution Manager Relationship Specialty Start Date End Date Shannan Vieyra MD PCP - General 04/08/09 03/15/19 documented as of this encounter
--- OUTSIDE RECORDS SUMMARY | 2024-05-24 15:28 | XMS_ITS | Encounter Summary ---
Author Organization [facility] Address [address] [place] [address] Care Team Providers Care Textile Slitting Machine Operator Name Role Phone Shannan Vieyra MD Primary Care Provider Unavail able Reason for Visit * Reason Onset Date Comments Medication Problem 08/20/2016 Encounter Details Date Type Department Care Team (Late st Contact Info) Description 08/20/[address] [id number] Shannan Vieyra MD Medication Problem Social History Tobacco Use Types Packs/Day Years [...] Telephone Encounter - Leida Cerda PA - 08/24/2016 4743 EST See office note from today's visit * Telephone Encounter - Nnai Dwyer RN - 08/23/2016 0916 EST Pt is hoping to speak to DT regarding insurance coverage of this med. Is there a reason she can't take synthroid? * Telephone Encounter - Milagros Parrish - 08/20/2016 1624 EST Pt is calling asking for a call back from Sallie Cerda.Pt states she got a letter in the mail from her insurance company stating they will no longer cover her thyroid meds. documented in this encounter Plan of Treatment Not on file documented as of this encounter Visit Diagnoses Not on filedocumented in this encounter Care Teams Textile Slitting Machine Operator Relationship Specialty Start Date End Date Shannan Vieyra MD PCP - General 04/08/09 03/15/19 documented as of this encounter
--- OUTSIDE RECORDS SUMMARY | 2024-05-24 15:28 | XMS_ITS | Encounter Summary ---
Author Organization [facility] Address [address] [place] [address] Care Team Providers Care Environmental Specialist Name Role Phone Shannan Vieyra MD Primary Care Provider Unavail able Reason for Visit * Reason Comments Follow-up allergic reaction Encounter Details Date Type Department Care Team (Late st Contact Info) Description 05/14/2014 14:45 EDT Office Visit [facility] General Surgery - [address] [phone] Ashwin Maradiaga MD [address] [place] [address], [address] [place] [address] S/P laparoscopic cholecystectomy (Primary Dx) Discharge Disposition: Auto Discharge Social [...] Sign Reading Time Taken Comments Blood Pressure - - Pulse - - Temperature - - Respiratory Rate - - Oxygen Saturation - - Inhaled Oxygen Concentration - - Weight 79.4 kg (175 lb) 05/14/2014 1431 EDT Height 162.6 cm (5' 4) 05/14/2014 1431 EDT Body Mass Index 30.04 05/14/2014 1431 EDT documented in this encounter Discharge Diagnoses Diagnosis V45.89 POSTSURGICAL STATES NEC[ICD-9-CM] documented in this encounter Discharge Disposition Disposition Code Departure Means Destination Auto Discharge documented in this encounter Progress Notes * Ashwin Maradiaga MD - 05/14/2014 1645 EDT S/P laparoscopic cholecystectomy S: She feels great. The rash has healed. t O: She looks well. No scleral icterus. The trocar incisions are healing well. No further rash or other problems A: Appears to have had an allergic reaction, likely from the adhesive of the steristrips. This has resolved. Doing well P: Diet and activity as tolerated. i will see her back as needed. Ashwin Maradiaga MD documented in this encounter Plan of Treatment Not on file documented as of this encounter Visit Diagnoses Diagnosis S/P laparoscopic cholecystectomy- Primary Other postprocedural status documented in this encounter Care Teams Environmental Specialist Relationship Specialty Start Date End Date Shannan Vieyra MD PCP - General 04/08/09 03/15/19 documented as of this encounter
--- OUTSIDE RECORDS SUMMARY | 2024-05-24 15:28 | XMS_ITS | Encounter Summary ---
Author Organization [facility] Address [address] [place] [address] Care Team Providers Care Equestrian Trainer Name Role Phone Shannan Vieyra MD Primary Care Provider Unavail able Reason for Visit * Reason Onset Date Comments Medications Refill 04/15/2016 Encounter Details Date Type Department Care Team (Late st Contact Info) Description 04/15/2016 Refill [facility] Family Medicine [address] [address] Shannan Vieyra MD Medications Refill Social History [...] BE SEEN IN OFFICE 90 Tab 0 04/15/2016 08/24/2016 thyroid, Pork, (ARMOUR THYROID) 120 mg tabletIndications:Graves' disease Take 1 Tab by mouth daily. 90 Tab 0 04/15/2016 05/20/2016 documented in this encounter Miscellaneous Notes * Telephone Encounter - Alisha Nino RN - 04/15/2016 1357 EDT Requested Prescriptions Signed Prescriptions Disp Refills ??? thyroid, Pork, (ARMOUR THYROID) 120 mg tablet 90 Tab 0 Sig: Take 1 Tab by mouth daily. Authorizing Provider: WILTON MAN Ordering User: ALISHA NINO ??? lisinopril-hydrochlorothiazide (PRINZIDE, ZESTORETIC) 20-12.5 mg per tablet 90 Tab 0 Sig: Take 1 Tab by mouth daily. MUST BE SEEN IN OFFICE Authorizing Provider: WILTON MAN Ordering User: ALISHA NINO Has scheduled appt on 05/07/16 with VAN Neri. Alisha Nino RN * Telephone Encounter - Frances Christensen - 04/15/2016 1322 EDT Medication(s) Requested: Thyroid,Pork ([place] Thyroid)120 mg tablet takes one tab daily;dispense;90;rf;0;Lisinopril-hydrochlorothiazide takes one tab daily;dispense;90;rf;0 Pharmacy: [facility] Last Refill Date: 07.01.16 Last Visit Date: 02.26.16 Next Visit Date: 05/07/2016 Is patient out of medication? yes Frances Christensen 04/15/2016 13:22 documented in this encounter Plan of Treatment Not on file documented as of this encounter Visit Diagnoses Diagnosis Graves' disease- Primary Toxic diffuse goiter without mention of thyrotoxic crisis or storm Essential hypertension, hypertension with unspecified goal documented in this encounter Discontinued Medications Medication Sig Discontinue Reason Start Date End Da te thyroid, Pork, (ARMOUR THYROID) 120 mg tabletIndications:Graves' disease,Hypothyroidism, unspecified hypothyroidism type Take 1 Tab by mouth daily DUE FOR LABS Reorder 09/22/2015 04/15/2016 lisinopril-hydrochlorothia zide (PRINZIDE, ZESTORETIC) 20-12.5 mg per tablet Take 1 Tab by mouth daily. MUST BE SEEN IN OFFICE Reorder 12/01/2015 04/15/2016 documented as of this encounter Care Teams Equestrian Trainer Relationship Specialty Start Date End Date Shannan Vieyra MD PCP - General 04/08/09 03/15/19 documented as of this encounter
--- OUTSIDE RECORDS SUMMARY | 2024-05-24 15:28 | XMS_ITS | Encounter Summary ---
Author Organization [facility] Address [address] [place] [address] Care Team Providers Care Hand Salter Name Role Phone Shannan Vieyra MD Primary Care Provider Unavail able Reason for Visit * Reason Comments Wound Check red and itchy Encounter Details Date Type Department Care Team (Late st Contact Info) Description 04/30/2014 10:45 EDT Office Visit [facility] General Surgery - [address] [phone] Ashwin Maradiaga MD [address] [place] [address], [address] [place] [address] S/P laparoscopic cholecystectomy (Primary Dx) [...] - - Weight 79.4 kg (175 lb) 04/30/2014 1052 EDT Height 162.6 cm (5' 4) 04/30/2014 1052 EDT Body Mass Index 30.04 04/30/2014 1052 EDT documented in this encounter Discharge Diagnoses Diagnosis V45.89 POSTSURGICAL STATES NEC[ICD-9-CM] documented in this encounter Discharge Disposition Disposition Code Departure Means Destination Auto Discharge documented in this encounter Progress Notes * Ashwin Maradiaga MD - 04/30/2014 1336 EDT S/P laparoscopic cholecystectomy S: she has itching at the incion sites that is very intense. She noticed some small vesicles .She has not tried any medical management O: she looks well. No scleral icterus. The trocar incisions are healing well. There is some rednessaround each but not involving the incisions and appear to be from irritation and scratching. No signs of infection. Iremoved the steri- strips. No deep tenderness or other problems. A: Appears to have had an allergic reaction, likely from the adhesive of the steristrips. P: She will use mineral oil to remove there residual adhesive. She will apply 1% cortisone cream twice daily. I told her she could use oral benadryl especially at night if the symptoms remain more severe. I will see her back in a couple of weeks or sooner if symptoms worsen or do not resolve. Ashwin Maradiaga MD documented in this encounter Plan of Treatment Not on file documented as of this encounter Visit Diagnoses Diagnosis S/P laparoscopic cholecystectomy- Primary Other postprocedural status documented in this encounter Care Teams Hand Salter Relationship Specialty Start Date End Date Shannan Vieyra MD PCP - General 04/08/09 03/15/19 documented as of this encounter
--- OUTSIDE RECORDS SUMMARY | 2024-05-24 15:28 | XMS_ITS | Encounter Summary ---
Author Organization [facility] Address [address] [place] [address] Care Team Providers Care Student Admissions Clerk Name Role Phone Shannan Vieyra MD Primary Care Provider Unavail able Reason for Visit * Reason Onset Date Comments Medications Refill 12/23/2017 Encounter Details Date Type Department Care Team (Late st Contact Info) Description 12/23/[address] [address] Shannan Vieyra MD Medications Refill Social History [...] 180 mg by mouth daily. 90 Tab 12/23/2017 07/22/2018 documented in this encounter Miscellaneous Notes * Telephone Encounter - Joya Grigsby - 12/27/2017 1405 EDT Left a message for the patient that her labs have been ordered and for her to call us to make an OV. * Telephone Encounter - Polly Reid - 12/23/2017 1111 EDT Medication(s) Requested: Thyroid, Pork, 180mg Preferred Pharmacy: [facility] Is patient out of medication? Yes Last Refill Date: 08/27/16 Last Visit Date with Ordering Provider: 08/24/16 Next Non-Acute Visit Date Scheduled with Care Team: No. Polly Reid 12/23/2017 11:11 patient would like 3 month supply as she has new insurance that will cover 3 months worth of medication. documented in this encounter Plan of Treatment Not on file documented as of this encounter Visit Diagnoses Diagnosis Hypothyroidism, iatrogenic- Primary Other iatrogenic hypothyroidism documented in this encounter Discontinued Medications Medication Sig Discontinue Reason Start Date End Da te Thyroid, Pork, 180 mg tabletIndications:Hypothy roidism, iatrogenic Take 180 mg by mouth daily. Reorder 08/27/2016 12/23/2017 documented as of this encounter Care Teams Student Admissions Clerk Relationship Specialty Start Date End Date Shannan Vieyra MD PCP - General 04/08/09 03/15/19 documented as of this encounter
--- OUTSIDE RECORDS SUMMARY | 2024-05-24 15:28 | XMS_ITS | Encounter Summary ---
Author Organization [facility] Address [address] [place] [id number] Care Team Providers Care Dog Show Judge Name Role Phone Shannan Winter MD Primary Care Provider Unavail able Reason for Visit * Reason Onset Date Comments Medications Refill 05/20/2016 Encounter Details Date Type Department Care Team (Late st Contact Info) Description 05/20/2016 Telephone [facility] Family Medicine [address] [phone] Shannan Winter MD Medications Refill Social History [...] to =120 daily due to insurance coverage 90 Tab 1 05/20/2016 08/24/2016 thyroid, Pork, (ARMOUR THYROID) 30 mg tablet Take 1 Tab by mouth daily. Take with 90 mcg daily to = 120 mcg due to insurance coverage 90 Tab 1 05/20/2016 08/24/2016 documented in this encounter Miscellaneous Notes * Telephone Encounter - Alisha Nino RN - 05/20/2016 1550 EDT Requested Prescriptions Signed Prescriptions Disp Refills ??? thyroid, Pork, (ARMOUR THYROID) 30 mg tablet 90 Tab 1 Sig: Take 1 Tab by mouth daily. Take with 90 mcg daily to = 120 mcg due to insurance coverage Authorizing Provider: SHANNAN WINTER Ordering User: ALISHA NINO ??? Thyroid, Pork, (ARMOUR THYROID) 90 mg tablet 90 Tab 1 Sig: Take 90 mcg by mouth daily. Take with 30 mcg to =120 daily due to insurance coverage Authorizing Provider: SHANNAN WINTER Ordering User: LAISHA NINO * Telephone Encounter - Lianne Vasquez - 05/20/2016 1535 EDT Patient called to state that her insurance will not pay for RX of 120 mg of armour thyroid. She must have 2 rx's for generic, one at 90 mg and one at 30 mg. [address] rewrite to [facility]. documented in this encounter Plan of Treatment Not on file documented as of this encounter Visit Diagnoses Not on filedocumented in this encounter Discontinued Medications Medication Sig Discontinue Reason Start Date End Da te thyroid, Pork, (ARMOUR THYROID) 120 mg tabletIndications:Grave s' disease Take 1 Tab by mouth daily. Insurance does not cover 04/15/2016 05/20/2016 documented as of this encounter Care Teams Dog Show Judge Relationship Specialty Start Date End Date Shannan Winter MD PCP - General 04/08/09 03/15/19 documented as of this encounter
--- OUTSIDE RECORDS SUMMARY | 2024-05-24 15:28 | XMS_ITS | Encounter Summary ---
Author Organization [facility] Address [address] [place] [address] Care Team Providers Care Slate Cutter Operator Name Role Phone Shannan Vieyra MD Primary Care Provider Unavail able Reason for Visit * Reason Comments Abdominal Pain LUQ abd pain startin g at 2300, per pcp pt has chronic pancreatitis, took prescribed pain medications without relief, has appt with GI dr in december. denies n/v/d/fever. Encounter Details Date Type Department Care Team (Late st Contact Info) Description 10/27/2013 1:50 EST - 10/27/2013 6:03 EST Emergency [facility] Emergency Department - Main [address] [id number] Leida Isaacs PA-C [address] [place] [phone] Keily Mosley PA-C [address] [place] [phone] Emergency, MD Keli Abdominal pain (Primary Dx) [...] Sign Reading Time Taken Comments Blood Pressure 118/78 10/27/2013 0600 EST Pulse 73 10/27/2013 0600 EST Temperature 36.4 ??C (97.5 ??F) 10/27/2013 0157 EST Respiratory Rate 18 10/27/2013 0600 EST Oxygen Saturation 100% 10/27/2013 0600 EST Inhaled Oxygen Concentration - - Weight 77.1 kg (170 lb) 10/27/2013 0157 EST Height 162.6 cm (5' 4) 10/27/2013 0157 EST Body Mass Index 29.18 10/27/2013 0157 EST documented in this encounter Discharge Instructions * Discharge Instructions* Leida Isaacs PA - 10/27/2013 5:51 EST If you have further episodes of pain that do not resolve, the pain is uncontrolled, you have associated fevers, persistent vomiting or other concerning symptoms please return for evaluation. * Attachments The following attachments cannot be sent through Care Everywhere. * ABDOMINAL PAIN: AFTER YOUR VISIT ([place]) documented in this encounter Medications at Time [...] mouth daily. 90 Tab 0 10/16/2013 02/20/2014 ondansetron (ZOFRAN-ODT) 4 mg disintegrating tablet Take [...] Departure Means Destination Home or Self Care Walk-out Home documented in this encounter ED Notes * Sita Galeana RN - 10/27/2013 0600 EST avs reviewed with pt. Ambulatory d/c to home. * Leiad Isaacs PA - 10/27/2013 0439 EST DOS: 10/27/2013 Chief Complaint Patient presents with ??? Abdominal Pain LUQ abd pain starting at 2300, per pcp pt has chronic pancreatitis, took prescribed pain medications without relief, has appt with GI dr in december. denies n/v/d/fever. The patient is a 33 y.o. female who presents today with Abdominal Pain HPI Comments: Patient presents with left upper quadrant pain. Pain started about 3 hours prior to arrival, took dilaudid without relief and presents here. She reports having several episodes just like this over the past year, particularly in the past few months. Last month reports her lipase was found to be very elevated when one of these episodes occurred and she was encouraged to present the next time she had one. Has known gallstones and reports often huma pain starts after meals, however pain is always on the left side. She denies any associated symptoms including no fevers, nausea, vomiting, bowel movement changes, urinary symptoms. Prior c- section ,no othe rabd surgeries. At time of my evaluation rates pain as 4/10 and improving without further intervention here. Abdominal Pain Associated symptoms: no chest pain, no chills, no constipation, no diarrhea, no dysuria, no fever, no nausea, no shortness of breath and no vomiting Review of Systems Constitutional: Negative for fever, chills and appetite change. HENT: Negative for neck stiffness. Eyes: Negative for visual disturbance. Respiratory: Negative for shortness of breath. Cardiovascular: Negative for chest pain. Gastrointestinal: Positive for abdominal pain. Negative for nausea, vomiting, diarrhea and constipation. Genitourinary: Negative for dysuria and frequency. Musculoskeletal: Negative for back pain. Skin: Negative for rash. Neurological: Negative for headaches. Psychiatric/Behavioral: Negative for confusion. All other systems reviewed and are negative. Past Medical History Diagnosis Date ??? Meningitis, unspecified 2004 ??? Thyroid disease ??? Hypertension Past [...] ??? Thyroid Disease Sister Vital Signs Temp: 36.4 ??C (97.5 ??F) Temp src: Tympanic Pulse: 73 Resp: 18 SpO2: 100 % BP: 118/78 mmHg BP Device: BP Machine Patient Position: Sitting BP Cuff Location: Right arm O2 Device: None (Room air) Physical Exam Nursing note and vitals reviewed. Constitutional: She appears well-developed and well-nourished. No distress. HENT: Head: Normocephalic and atraumatic. Right Ear: External ear normal. Left Ear: External ear normal. Nose: Nose normal. Eyes: Pupils are equal, round, and reactive to light. Right eye exhibits no discharge. Left eye exhibits no discharge. Neck: Normal range of motion. Neck supple. No tracheal deviation present. Cardiovascular: Normal rate, regular rhythm and normal heart sounds. Pulmonary/Chest: Breath sounds normal. No respiratory distress. Abdominal: Soft. There is tenderness in the epigastric area and left upper quadrant. There is no rigidity, no rebound, no guarding and no CVA tenderness. Musculoskeletal: Normal range of motion. Neurological: She is alert. She has normal strength. No sensory deficit. Skin: No rash noted. She is not diaphoretic. Psychiatric: She has a normal mood and affect. Radiology orders: None Imaging Results None Procedures ED Course: A medical screening exam was performed. AVSS, patient well apearing with resolving episode of recurrent abdominal pain. The location is not suggestive of biliary colic, however many other components are. Patient without ruq tenderness. She is primarily concerned about her lipase being elevated withthese episodes, her lipase and other labs are unremarkable today. She is improving without intervention and does not have a worrisome exam. Recent ct for same pain without concerning findings. She will follow up with outpatient providers, has GI appt upcoming. Return precautions discussed. Disposition: Discharged The patient's pain was managed to an adequate level weighing risk vs. benefit of further medications. Upon departure from the Emergency Department, the patient's pain was 0 on a zero to ten scale. Condition at departure from the Emergency Department: Stable Discharge Medication List as of 10/27/2013 5:51 CONTINUE these medications which have NOT CHANGED [...] by mouth daily., Disp-90 Tab, R-0, Normal ondansetron (ZOFRAN-ODT) 4 mg disintegrating tablet Take 1 Tab by mouth every 8 hours as needed forNausea for 12 doses., 4 mg, oral, EVERY 8 HOURS PRN Starting 06/24/2013, Until Discontinued, Disp-12Tab, R-0, Print oxyCODONE-acetaminophen (PERCOCET) 5-325 mg per tablet Take 1 Tab by mouth every 6 hours as needed for Pain for 12 doses., Disp-12 Tab, R-0, Pain, Print Thyroid, Pork, (ARMOUR THYROID) 90 mg tablet Take 1 Tab by mouth daily., Disp-90 Tab, R-0Due for Blood workNormal MDM Number of Diagnoses or Management Options Abdominal pain: Diagnosis management comments: 4 Amount and/or Complexity of Data Reviewed Clinical lab tests: ordered and reviewed Tests in the radiology section of CPT??: reviewed Final diagnoses: Abdominal pain PCP: MD Efe Clement was available for supervision. 10/30/2013 8:57 * Sita Galeana RN - 10/27/2013 0227 EST Blood drawn via saline lock per protocol, tiger and purple tube(s) sent to lab per order. documented in this encounter Plan of Treatment Pending Results Name Type Priority Associated Diagnoses Date /Time HEMAGRAM AND DIFFERENTIAL Lab Routine 10/27/2013 2:19 EST Scheduled Orders Name Type Priority Associated Diagnoses Orde r Schedule HEMAGRAM AND DIFFERENTIAL Lab Routine One Time for 1 Occurrences starting 10/27/2013 until 10/27/2013 documented as of this encounter Procedures Procedure Name Priority Date/Time Associated Diagnosis Comments POCT TEST, VISUAL READ STAT 10/27/2013 5:15 EST POCT URINE DIPSTICK, CLINITEK STAT 10/27/2013 5:13 EST ED/URGENT CARE ADD-ON STAT 10/27/2013 4:29 EST HOLD SST STAT 10/27/2013 2:19 EST HOLD PURPLE TOP STAT 10/27/2013 2:19 EST DIFFERENTIAL Routine 10/27/2013 2:19 EST COMPLETE BLOOD COUNT Routine 10/27/2013 2:19 EST BUN Routine 10/27/2013 2:19 EST LIPASE Routine 10/27/2013 2:19 EST GLUCOSE, SERUM Routine 10/27/2013 2:19 EST CREATININE Routine 10/27/2013 2:19 EST HEPATIC FUNCTION PANEL (ALB,ALK PHOS,ALT,AST,DBIL,TOT YOGI,TOT PROT) Routine 10/27/2013 2:19 EST ELECTROLYTES Routine 10/27/2013 2:19 EST documented in this encounter Results * POCT URINE TEST (10/27/2013 5:15 EST) Test, Urine, POC Negative Reference Range, Negative Control Line Present Yes Background Clear? Yes Urine specimen (specimen) 10/27/2013 5:15 EST Leida ARAUJO-C POINT OF CARE T EST ORDERABLES * (ABNORMAL) POCT URINE DIPSTICK (10/27/2013 5:13 EST) Color YELLOW [facility] Clarity, UA Clear [facility] Glucose Neg Neg [facility] Bilirubin Neg Neg [facility] Ketones Neg Neg [facility] Specific [place] 1.015 1.001 - 1.035 [facility] Blood Neg Neg [facility] pH 6.5 4.6 - 8.0 [facility] Protein Neg Neg [facility] Urobilinogen 0.2 0.2 - 1.0 E.U./dl [facility] Nitrite Neg Neg [facility] Leuk Esterase Trace(A) Neg KATHYA [facility] motorcycle racer ID [id number] [facility] Comment:Test performed at [facility] Urine specimen (specimen) 10/27/2013 5:13 EST 10/27/2013 5:14 EST Leida ARAUJO-C POINT OF CARE T EST ORDERABLES [facility] [address] [place] [address] * ED/WICC ADD-ON (10/27/2013 4:29 EST) Tests to be added BUN AND CREATININE ,ELECTROLY VICTORIANO,GLUCOS E, SERUM,YIN GRAM WITH DIFFERENTI AL,LIPASE, LIVER PANEL [facility] Number for problems [id number] (ED) [facility] 10/27/2013 4:29 EST 10/27/2013 4:29 EST [facility] HEMATOLOGY & PF 4 ORDERABLES Performing Organization Address City/[facility] Co de Phone Number [facility] [address] [place] [address] * DIFFERENTIAL (10/27/2013 2:19 EST) % Neutrophils 51.5 45.5 - 79.7 % [facility] % Lymphocytes 37.1 15.0 - 46.8 % [facility] % Monocytes 7.3 1.8 - 12.0 % [facility] % Eosinophils 3.4 0.6 - 6.9 % [facility] % Basophils 0.7 0.2 - 1.4 % [facility] ABS Neutrophils 4.21 2.20 - 8.85 K/cmm [facility] ABS Lymphs 3.03 1.09 - 3.30 K/cmm [facility] ABS Monocytes 0.60 0.1 - 0.8 K/cmm [facility] ABS Eosinophils 0.28 0.03 - 0.61 K/cmm [facility] ABS Basophils 0.06 0.01 - 0.11 K/cmm [facility] Type of Diff: Automated [facility] 10/27/2013 2:19 EST 10/27/2013 2:31 EST [facility] HEMATOLOGY & PF 4 ORDERABLES [facility] [address] [place] [address] * HEMAGRAM (10/27/2013 2:19 EST) WBC 8.16 4.0 - 12.4 K/cmm [facility] RBC 4.36 3.86 - 5.04 M/cmm [facility] Hemoglobin 13.3 11.6 - 15.2 gm/dl [facility] HCT 39.0 34.9 - 44.4 % [facility] MCV 89 81 - 98 fl [facility] MCH 30.4 26.7 - 33.3 pg [facility] MCHC 34.0 32.1 - 35.9 gm/dl [facility] PLT 263 141 - 320 K/cmm [facility] RDW-CV 13.3 11.7 - 14.6 % [facility] 10/27/2013 2:19 EST 10/27/2013 2:31 EST Leida Isaacs PA-C HEMATOLOGY & PF 4 ORDERABLES Performing Organization Address [facility] Co de Phone Number [facility] [address] [place] [address] * GLUCOSE, SERUM (10/27/2013 2:19 EST) Glucose, Serum 99 70 - 100 mg/dl [facility] 10/27/2013 2:19 EST 10/27/2013 2:31 EST Leida GOMEZC CHEMISTRY & BLO OD GAS ORDERABLES Performing Organization Address [facility] Phone Number [facility] [address] [place] [address] * (ABNORMAL) ELECTROLYTES (10/27/2013 2:19 EST) Sodium 135(L) 136 - 145 mEq/L [facility] Potassium 4.2 3.5 - 5.0 mEq/L [facility] Chloride 98 96 - 110 mEq/L [facility] CO2 29 24 - 32 mEq/L [facility] 10/27/2013 2:19 EST 10/27/2013 2:31 EST Leida ARAUJO-C CHEMISTRY & BLO OD GAS ORDERABLES Performing Organization Address [facility] Co de Phone Number [facility] [address] [place] [address] * (ABNORMAL) LIVER FUNCTION TESTS (10/27/2013 2:19 EST) Albumin 4.2 3.4 - 4.9 g/dl [facility] Total Protein 7.6 6.5 - 8.3 g/dl [facility] Total Alkaline Phosphatase 66 38 - 126 U/L [facility] ALT 40 9 - 52 U/L [facility] AST 23 15 - 46 U/L [facility] Unconjugated Bilirubin 0.0(L) 0.1 - 1.1 mg/dl [facility] Conjugated Bilirubin 0.0 0.0 - 0.3 mg/dl [facility] Bilirubin, Total <0.5 0.2 - 1.3 mg/dl [facility] 10/27/2013 2:19 EST 10/27/2013 2:31 EST Leida Andrei [facility] PA-C CHEMISTRY & BLO OD GAS ORDERABLES Performing Organization Address [facility] de Phone Number [facility] [address] [place] [address] * LIPASE (10/27/2013 2:19 EST) Lipase 156 0 - 250 U/L [facility] 10/27/2013 2:19 EST 10/27/2013 2:31 EST Leida Andrei [facility] PA-C CHEMISTRY & BLO OD GAS ORDERABLES Performing Organization Address [facility] de Phone Number [facility] [address] [place] [address] * CREATININE (10/27/2013 2:19 EST) Creatinine 0.69 0.52 - 1.04 mg/dl [facility] GFR, Calculated >60 >60 ml/min/1.7 3m2 [facility] 10/27/2013 2:19 EST 10/27/2013 2:31 EST [facility] FIGHTER [facility] PA-C CHEMISTRY & BLO OD GAS ORDERABLES Performing Organization Address [facility] Co de Phone Number [facility] [address] [place] [address] * BUN (10/27/2013 2:19 EST) BUN 16 10 - 26 mg/dl [facility] 10/27/2013 2:19 EST 10/27/2013 2:31 EST Leida Isaacs PA-C CHEMISTRY & BLO OD GAS ORDERABLES Performing Organization Address [facility] Co de Phone Number [facility] [address] [place] [address] * HOLD SST (10/27/2013 2:19 EST) Hold SST Hold for further testing. Specimen will be held for 5 days. [facility] Blood specimen (specimen) 10/27/2013 2:19 EST 10/27/2013 2:31 EST Leida Forbes FIGHTER [employer] PA-C LAB INFO SERVIC E AND SUPPORT & PHONE RESULT Performing Organization Address [facility] de Phone Number [facility] [address] [place] [address] * HOLD PURPLE TOP (10/27/2013 2:19 EST) Hold Purple Top EDTA for hematology will be discarded after 48 hours, differential not available after 12 hours. [facility] Blood specimen (specimen) 10/27/2013 2:19 EST 10/27/2013 2:31 EST Leida Andrei FIGHTER [employer] PA-C LAB INFO SERVIC E AND SUPPORT & PHONE RESULT Performing Organization Address [facility] de Phone Number [facility] [address] [place] [address] documented in this encounter Visit Diagnoses Diagnosis Abdominal pain- Primary Abdominal pain, unspecified site documented in this encounter Administered Medications Inactive Administered Medications - up to 3 most recent administrations Medication Order MAR Action Action Date Dose Rate Site Oxycodone w APAP?? 5- 325 mg Tab STARTER PACK 1 Package, oral, NOW X1, 1 dose, On 10/27/13 at 0615, STAT Given 10/27/2013 5:59 EST 1 Package sodium chloride 0.9 % BOLUS 1,000 mL 1,000 mL, intravenous, Once (Without Time Specified), 1 dose, Starting on 10/27/13 at 0245, Until 10/27/13 at 0227, STAT Given 10/27/2013 2:27 EST 1,000 mL documented in this encounter Active and Recently Administered Medications Times are shown in EST. Scheduled Medication Order 10/25/2013 10/26/2013 10/27/2013 Oxycodone w APAP?? 5- 325 mg Tab STARTER PACK (COMPLETED) 1 Package, oral, NOW X1, 1 dose, On 10/27/13 at 0615, STAT 0559 (Given - Provid er: Sita Galeana RN) sodium chloride 0.9 % BOLUS 1,000 mL (COMPLETED) 1,000 mL, intravenous, Once (Without Time Specified), 1 dose, Starting on 10/27/13 at 0245, Until 10/27/13 at 0227, STAT 0227 (Given - Provid er: Sita Galeana RN) documented in this encounter Care Teams Slate Cutter Operator Relationship Specialty Start Date End Date Shannan Vieyra MD PCP - General 04/08/09 03/15/19 documented as of this encounter
--- OUTSIDE RECORDS SUMMARY | 2024-05-24 15:28 | XMS_ITS | Encounter Summary ---
Author Organization [facility] Address [address] [place] [address] Care Team Providers Care Accountant Tax Name Role Phone Shannan Vieyra MD Primary Care Provider Unavail able Reason for Visit * Reason Onset Date Comments Post-ED Follow Up 01/29/2014 01/25/14 - ABD PAIN Encounter Details Date Type Department Care Team (Late st Contact Info) Description 01/29/[address] [phone] Aliza Nino RN Post-ED Follow Up (01/25/14 - ABD PAIN) Social History Tobacco Use Types Packs/Day Years [...] Telephone Encounter - Aliza Nino RN - 01/29/2014 1224 EDT Care and Concern follow up call to Doris. No answer. I've left a brief message reminding her that the ER visit clearly recommends follow up with GI. She should also call this office and schedule with any provider as it's been some time since she's been seen here. I've provided our office number toschedule. Aliza Nino RN documented in this encounter Plan of Treatment Not on file documented as of this encounter Visit Diagnoses Not on filedocumented in this encounter Care Teams Accountant Tax Relationship Specialty Start Date End Date Shannan Vieyra MD PCP - General 04/08/09 03/15/19 documented as of this encounter
--- OUTSIDE RECORDS SUMMARY | 2024-05-24 15:28 | XMS_ITS | Encounter Summary ---
Author Organization [facility] Address [address] [place] [address] Care Team Providers Care Gang Sawyer Name Role Phone Shannan Vieyra MD Primary Care Provider Leida Robledo PA-C Primary Care Provi melvin Comfort Zelaya NP Primary Care Provider [phone] Reason for Visit * Reason Onset Date Comments Referral Request 02/06/2014 Encounter Details Date Type Department Care Team (Late st Contact Info) Description 02/06/2014 Telephone [facility] Family Medicine - [address] [phone] Shannan Vieyra MD Referral Request Social History Tobacco Use Types Packs/Day Years Used Date Smoking Tobacco: Never Alcohol Use Standard Drinks/Week Comments No 0 (1 standard drink = 0.6 oz pur e alcohol) Sex and Gender Information Value Date Recorded Sex Assigned at Not on file Gender Identity Not on file Sexual Orientation Not on file documented as of this encounter Miscellaneous Notes * Telephone Encounter - Nani Dwyer RN - 02/07/2014 1412 EDT Left message for pt to return call * Telephone Encounter - Keily Paulson - 02/06/2014 1450 EDT Patient would like to speak to Dr Vieyra about getting a referral to GI documented in this encounter Plan of Treatment Not on file documented as of this encounter Visit Diagnoses Not on filedocumented in this encounter Care Teams Gang Sawyer Relationship Specialty Start Date End Date Shannan Vieyra MD PCP - General 04/08/09 03/15/19 Leida Cerda PA-C PCP - General 03/16/19 03/07/22 Comfort Zelaya NP [address] [place] [phone] PCP - General Family Medicine - Primary Care 03/08/22 documented as of this encounter
--- OUTSIDE RECORDS SUMMARY | 2024-05-24 15:28 | XMS_ITS | Encounter Summary ---
Author Organization [facility] Address [address] [place] [address] Care Team Providers Care Supervisor Filling And Packing Name Role Phone Shannan Vieyra MD Primary Care Provider Unavail able Reason for Visit * Reason Comments Abdominal Pain LUQ radiating to michel k, started at 2000. Encounter Details Date Type Department Care Team (Late st Contact Info) Description 03/08/2013 23:08 EDT - 03/09/2013 1:26 EDT Emergency [facility] Emergency Department - [address] [id number] Rita Weber MD [address] [place] [address], Level 1 [place] [address] Emergency, MD Keli Abdominal pain (Primary [...] Sign Reading Time Taken Comments Blood Pressure 126/77 03/08/2013 2311 EDT Pulse 91 03/08/2013 2311 EDT Temperature 36.4 ??C (97.5 ??F) 03/08/2013 2311 EDT Respiratory Rate 14 03/08/20131 EDT Oxygen Saturation 100% 03/08/2013 231 EDT Inhaled Oxygen Concentration - - Weight 77.1 kg (170 lb) 03/08/2013 2311 EDT Height 162.6 cm (5' 4) 03/08/2013 2311 EDT Body Mass Index 29.18 03/08/2013 2311 EDT documented in this encounter Discharge Instructions * Attachments The following attachments cannot be sent through Care Everywhere. * ABDOMINAL PAIN: AFTER YOUR VISIT TO THE EMERGENCY ROOM ([facility]) documented in this encounter Medications at Time of Discharge Medication Sig Dispensed Refills Start Date End Date albuterol (PROVENTIL HFA, VENTOLIN HFA) 90 mcg/actuation inhalerIndications:RAD (reactive airway disease) Inhale 2 Puffs as directed every 4 hours as needed for Wheezing. 1 Inhaler 2 11/29/2011 05/21/2013 levonorgestrel-ethinyl estradiol (SEASONALE) 0.15-30 mg-mcg per tablet Take 1 Tab by mouth daily. 06/25/2020 lisinopril-hydrochlorothi azide (PRINZIDE, ZESTORETIC) 20-12.5 mg per tabletIndications:Hyperte nsion Take 1 Tab by mouth daily. 90 Tab 3 06/14/2012 10/15/2013 thyroid (ARMOUR THYROID) 15 mg tabletIndications:Other iatrogenic hypothyroidism Take 1 Tab by mouth daily. 90 Each 3 11/06/2012 10/16/2013 thyroid (ARMOUR) 90 mg tabletIndications:Other iatrogenic hypothyroidism Take 1 Tab by mouth daily. (Cancel order/refills on 120 mg dose) 90 Each 3 06/19/2012 10/15/2013 documented as of this encounter Discharge Disposition Disposition Code Departure Means Destination Comment s Home or Self Care Walk-out Home family present to transport pt home and assist after discharge if needed. documented in this encounter ED Notes * Rita Weber MD - 03/09/2013 0043 EDT DOS: 03/08/2013 Chief Complaint Patient presents with ??? Abdominal Pain LUQ radiating to back, started at 2000. The patient is a 33 y.o. female who presents today with Abdominal Pain HPI Comments: 33 yo female presents with LUQ pain that began around 9pm while she was sitting on the couch. States it was very severe, constant and dull. States she was almost in tears, so called PCPwho recommended ED eval. She denies n/v, fever, urinary symptoms, had a nml BM this afternoon, no unusual po intake. Had an US in the past with gallstones as an incidental finding, was concerned thismay be causing her symptoms. Notes her symptoms have significantly improved on their own. Did not take any OTC meds. LMP was a couple of weeks ago, was normal for her, denies any vaginal discharge. She has had a csection, no other abd surgeries. Has had pyelo in the past, but this doesn't feel likethat. Pain is not pleuritic, denies any SOB, no leg pain or swelling, does take OCPs. Abdominal Pain Pertinent negatives include fever, dysuria and headaches. Review of Systems Constitutional: Negative for fever and chills. HENT: Negative for neck stiffness. Eyes: Negative for visual disturbance. Respiratory: Negative for shortness of breath. Cardiovascular: Negative for chest pain. Gastrointestinal: Positive for abdominal pain. Genitourinary: Negative for dysuria. Musculoskeletal: Negative for back pain. Skin: Negative for rash. Neurological: Negative for headaches. Psychiatric/Behavioral: Negative for confusion. All other systems reviewed and are negative. Past Medical History Diagnosis Date ??? Meningitis 2004 ??? Thyroid disease ??? Hypertension Past Surgical History Procedure Date ??? section ??? Ablation of dysrhythmic focus Allergies Allergen Reactions ??? Penicillins ??? Propranolol ??? Sulfa (Sulfonamide Antibiotics) History Substance Use Topics ??? Smoking status: Never Smoker ??? Smokeless tobacco: Not on file ??? Alcohol Use: No Family History Problem Relation Age of Onset ??? Kidney Disease Mother stones ??? Thyroid Disease Mother ??? Thyroid Disease Sister Vital Signs Temp: 36.4 ??C (97.5 ??F) Temp src: Tympanic Pulse: 91 Resp: 14 SpO2: 100 % SpCO: 4 % BP: 126/77 mmHg O2 Device: None (Room air) Physical Exam Nursing note and vitals reviewed. Constitutional: She appears well-developed and well-nourished. HENT: Head: Normocephalic and atraumatic. Right Ear: [...] No respiratory distress. Abdominal: Soft. There is no tenderness. No cva tenderness Musculoskeletal: Normal range of motion. She exhibits no edema and no tenderness. Neurological: She is alert. She has normal strength. No sensory deficit. Skin: No rash noted. Psychiatric: She has a normal mood and affect. Radiology orders: None Imaging Results None Procedures ED Course: A medical screening exam was performed. No change with GI cocktail, but feels pain improving on itsown. Notes she did have one prior similar episode months ago which just resolved on it sown. Has nourinary symptoms, negative upt, trace leuks on urine, but has no symptoms. DC home with return precautions. Disposition: Discharged The patient's pain was managed to an adequate level weighing risk vs. benefit of further medications. Upon departure from the Emergency Department, the patient's pain was 2 on a zero to ten scale. Condition at departure from the Emergency Department: Improved Discharge Prescriptions New Prescriptions No Discharge Prescriptions for this patient MDM Number of Diagnoses or Management Options Diagnosis management comments: 3 Final diagnoses: Abdominal pain PCP: Shannan Vieyra MD 03/09/2013 1:32 * Genesis Babcock - 03/08/2013 2310 EDT TCALL: DORIS KERR (katerina) [facility] MED RESIDENT REFERS PT TO [facility] FOR EVAL. CC: ACUTE LUQ ABD PN, KNOWN GALLSTONES. (GMD) documented in this encounter Miscellaneous Notes * Scanned Note-Null - [facility] [employer], SCAN 2 - 03/13/2013 0717 EDT documented in this encounter Plan of Treatment Not on file documented as of this encounter Procedures Procedure Name Priority Date/Time Associated Diagnosis Comments POCT URINE DIPSTICK, CLINITEK STAT 03/09/2013 0:41 EDT documented in this encounter Results * (ABNORMAL) POCT URINE DIPSTICK (03/09/2013 0:41 EDT) Color YELLOW [facility] Clarity, UA Clear [facility] Glucose Neg Neg [facility] Bilirubin Neg Neg [facility] Ketones Neg Neg [facility] Specific [place] 1.025 1.001 - 1.035 [facility] Blood Neg Neg [facility] pH 7.0 4.6 - 8.0 [facility] Protein Neg Neg [facility] Urobilinogen 0.2 0.2 - 1.0 E.U./dl [facility] Nitrite Neg Neg [facility] Leuk Esterase 1+(A) Neg KATHYA [facility] vice president residential solar sales ID [id number] [facility] Comment:Test performed at Em ergency Department Urine specimen (specimen) 03/09/2013 0:41 EDT 03/09/2013 0:45 EDT Rita Weber MD POINT OF CARE TEST ORDERABLES [facility] [address] [place] [address] documented in this encounter Visit Diagnoses Diagnosis Abdominal pain- Primary Abdominal pain, unspecified site documented in this encounter Administered Medications Inactive Administered Medications - up to 3 most recent administrations Medication Order MAR Action Action Date Dose Rate Site aluminum & magnesium hydroxide-simethicone (MYLANTA-DS) 400-400-40 mg/5 mL suspension 15 mL 15 mL, oral, NOW X1, 1 dose, On Tue03/09/13 at 0015, STAT Given 03/09/2013 0:04 EDT 15 mL lidocaine (XYLOCAINE) 2 % viscous solution 15 mL 15 mL, oral, NOW X1, 1 dose, On Tue03/09/13 at 0015, STAT Given 03/09/2013 0:04 EDT 15 mL documented in this encounter Active and Recently Administered Medications Times are shown in EDT. Scheduled Medication Order 03/07/2013 03/08/2013 03/09/2013 aluminum & magnesium hydroxide-simethicone (MYLANTA-DS) 400-400-40 mg/5 mL suspension 15 mL (COMPLETED)(Linked Group 1) 15 mL, oral, NOW X1, 1 dose, On Tue03/09/13 at 0015, STAT 0004 (Given - Provid er: Milagros Li RN) lidocaine (XYLOCAINE) 2 % viscous solution 15 mL (COMPLETED)(Linked Group 1) 15 mL, oral, NOW X1, 1 dose, On Tue03/09/13 at 0015, STAT 0004 (Given - Provid er: Milagros Li RN) Linked Groups Order Group 1: lidocaine (XYLOCAINE) 2 % viscous solution 15 mL (COMPLETED)Jump to med 15 mL, oral, NOW X1, 1 dose, On Tue03/09/13 at 0015, STAT And aluminum & magnesium hydroxide-simethicone (MYLANTA-DS) 400-400-40 mg/5 mL suspension 15 mL (COMPLETED)Jump to med 15 mL, oral, NOW X1, 1 dose, On Tue03/09/13 at 0015, STAT documented in this encounter Orders Lab Orders Without Results Count Last Ordered D ate First Ordered Date POCT URINE TEST 1 03/08/2013 documented in this encounter Care Teams Supervisor Filling And Packing Relationship Specialty Start Date End Date Shannan Vieyra MD PCP - General 04/08/09 03/15/19 documented as of this encounter
--- OUTSIDE RECORDS SUMMARY | 2024-05-24 15:29 | XMS_ITS | Encounter Summary ---
Author Organization [facility] Address [address] [place] [address] Care Team Providers Care Administrator Social Welfare Name Role Phone Unavailable Primary Care Provider Unavailabl e Encounter Details Date Type Department Care Team (Late st Contact Info) Description 03/18/2008 15:[address] [facility] [address] [place] [address] Miguel Devine MD PhD [address] [facility] 1 [place] [phone] Discharge Disposition: Auto Discharge Social History Tobacco Use Types Packs/Day Years Used Date Smoking Tobacco: Never Assessed Sex and Gender Information Value Date Recorded Sex Assigned at Not on file Gender Identity Not on file Sexual Orientation Not on file documented as of this encounter Discharge Disposition Disposition Code Departure Means Destination Auto Discharge documented in this encounter Plan of Treatment Not on file documented as of this encounter Visit Diagnoses Not on filedocumented in this encounter
--- OUTSIDE RECORDS SUMMARY | 2024-05-24 15:29 | XMS_ITS | Encounter Summary ---
Author Organization [facility] Address [address] [place] [address] Care Team Providers Care Fire Technician Name Role Phone Shannan Vieyra MD Primary Care Provider Unavail able Reason for Visit * Reason Onset Date Comments Medication Questions 03/04/2011 Encounter Details Date Type Department Care Team (Late st Contact Info) Description 03/04/2011 Telephone [facility] Endocrinology - [facility] [address] [place] [address] Juan Pablo Toth MD [address] [facility] [address] [place] [address] Medication Questions Social History Tobacco Use Types Packs/Day Years Used Date Smoking Tobacco: Never Alcohol Use Standard Drinks/Week Comments No 0 (1 standard drink = 0.6 oz pur e alcohol) Sex and Gender Information Value Date Recorded Sex Assigned at Not on file Gender Identity Not on file Sexual Orientation Not on file documented as of this encounter Miscellaneous Notes * Telephone Encounter - Veronica Cueto RN - 03/10/2011 [address] toth on 03/09- he would like her to come in to be seen. i have scheduled her to2 weeks and she accepted appt * Telephone Encounter - Veronica Cueto RN - 03/04/2011 1641 EDT i called pt and she tells me she would like to discuss changing from synthroid to armour. i note that she is hoarse on the phone and she tells me that she has been concerned about this for a while now. Pt states her dose was recently increased from 100 to 125. * Telephone Encounter - Sita Mo - 03/04/2011 1128 EDT Pt wants to speak to Dr Toth about changing medications. documented in this encounter Plan of Treatment Not on file documented as of this encounter Visit Diagnoses Not on filedocumented in this encounter Care Teams Fire Technician Relationship Specialty Start Date End Date Shannan Vieyra MD PCP - General 04/08/09 03/15/19 documented as of this encounter
--- OUTSIDE RECORDS SUMMARY | 2024-05-24 15:29 | XMS_ITS | Encounter Summary ---
Author Organization [facility] Address [address] [place] [address] Care Team Providers Care Electrical Automation Engineer Name Role Phone Shannan Vieyra MD Primary Care Provider Unavail able Reason for Visit * Reason Onset Date Comments Results 03/25/2011 Encounter Details Date Type Department Care Team (Late st Contact Info) Description 03/25/2011 Telephone [facility] Endocrinology - [facility] [place] [facility] [address] [place] [address] Juan Pablo Toth MD [address] [facility] [address] [place] [address] Results Social History Tobacco Use Types Packs/Day Years Used Date Smoking Tobacco: Never Alcohol Use Standard Drinks/Week Comments No 0 (1 standard drink = 0.6 oz pur e alcohol) Sex and Gender Information Value Date Recorded Sex Assigned at Not on file Gender Identity Not on file Sexual Orientation Not on file documented as of this encounter Miscellaneous Notes * Telephone Encounter - Krystle Palacios - 03/26/2011 1130 EDT I called the patient with her lab test results and relayed to her the message from Dr. Toth. * Telephone Encounter - Lucinda Garduno - 03/25/2011 1345 EDT Called for results documented in this encounter Plan of Treatment Not on file documented as of this encounter Visit Diagnoses Not on filedocumented in this encounter Care Teams Electrical Automation Engineer Relationship Specialty Start Date End Date Shannan Vieyra MD PCP - General 04/08/09 03/15/19 documented as of this encounter
--- OUTSIDE RECORDS SUMMARY | 2024-05-24 15:29 | XMS_ITS | Encounter Summary ---
Author Organization [facility] Address [address] [place] [address] Care Team Providers Care Color Matcher Name Role Phone Shannan Vieyra MD Primary Care Provider Unavail able Encounter Details Date Type Department Care Team (Late st Contact Info) Description 03/23/2011 Phlebotomy Only [address] [address] [facility], Outpatient Other postablative hypothyroidism Social History Tobacco Use Types Packs/Day Years [...] Date/Time Associated Diagnosis Comments T3, TOTAL Routine 03/23/2011 11:55 EDT Other postablative hypothyroidism TSH Routine 03/23/2011 11:55 EDT Other postablative hypothyroidism T4 FREE Routine 03/23/2011 11:55 EDT Other postablative hypothyroidism documented in this encounter Results * T3, TOTAL (03/23/2011 11:55 EDT) T3, Total 116 60 - 181 ng/dL [facility] Blood specimen (specimen) 03/23/2011 11:55 EDT 03/23/2011 11:56 EDT Juan Pablo Toth MD CHEMISTRY & BLOOD GAS ORDERABLES Performing Organization Address [facility] Co de Phone Number [facility] [address] [place] [address] * (ABNORMAL) TSH (03/23/2011 11:55 EDT) TSH 0.04(L) 0.35 - 5.00 uIU/ml [facility] Blood specimen (specimen) 03/23/2011 11:55 EDT 03/23/2011 11:56 EDT Juan Pablo Toth MD CHEMISTRY & BLOOD GAS ORDERABLES Performing Organization Address [facility] de Phone Number [facility] [address] [place] [address] * T4 FREE (03/23/2011 11:55 EDT) Free T4 1.4 0.8 - 1.8 ng/dL [facility] Blood specimen (specimen) 03/23/2011 11:55 EDT 03/23/2011 11:56 EDT Juan Pablo Toth MD CHEMISTRY & BLOOD GAS ORDERABLES Performing Organization Address [facility] de Phone Number [facility] [address] [place] [address] documented in this encounter Visit Diagnoses Diagnosis Other postablative hypothyroidism documented in this encounter Care Teams Color Matcher Relationship Specialty Start Date End Date Shannan Vieyra MD PCP - General 04/08/09 03/15/19 documented as of this encounter
--- OUTSIDE RECORDS SUMMARY | 2024-05-24 15:29 | XMS_ITS | Encounter Summary ---
Author Organization [facility] Address [address] [place] [address] Care Team Providers Care Glove Sewer Name Role Phone Unavailable Primary Care Provider Unavailabl e Encounter Details Date Type Department Care Team (Late st Contact Info) Description 09/17/2008 15:12 [facility] Hospital Encounter [address] [address] Judith Ballard MBBS MPH [address] [place] [address], [address] [place] [phone] Social History Tobacco Use Types Packs/Day Years Used Date Smoking Tobacco: Never Smokeless Tobacco: Never Alcohol Use Standard Drinks/Week Comments No 0 (1 standard drink = 0.6 oz pur e alcohol) [facility] Utilities Answer Date Recorded In the past 12 months has [employer] electric, gas, oil, or water company threatened [...] place to sleep or slept in a chcf (including now)? No 10/28/2023 Interpersonal Safety Answer [...] Procedure Name Priority Date/Time Associated Diagnosis Comments URINE [id number] RATIO (ACR) Routine 09/17/2008 16:28 EST NEPHROLOGY PROFILE (INCLUDES BUN, CREATININE, CALCULATED GFR, ELECTROLYTES, CALCIUM, PHOSPHORUS, ALBUMIN) Routine 09/17/2008 16:26 EST CATECHOLAMINE FRACTIONATION, PLASMA, FREE Routine 09/17/2008 16:26 EST ALDOSTERONE, SERUM Routine 09/17/2008 16 :26 EST RENIN ACTIVITY, PLASMA Routine 8 16:26 EST COMPLETE BLOOD COUNT Routine 09/17/2008 16:26 EST documented in this encounter Results * (ABNORMAL) MICROALBUMIN (09/17/2008 16:28 EST) Creatinine, Urn Johnston 80.4 mg/dl [facility] Ur Albumin mg/dl 3.0(H) <1.9 mg/dl [facility] Ur Alb ug/mg Crea 37.3 ug/mg Crea [facility] Comment: Normal: ??<30 ug/mg Creat Microalbuminuria: ??30-300 ug/mg Creat Clinical albuminuria: ??>300 ug/mg Creat 09/17/2008 16:2 8 EST 09/17/2008 16:28 EST Judith FINLEY MPH CHEMISTRY & BLO OD GAS ORDERABLES [facility] [address] [place] [address] * RENIN ACTIVITY, PLASMA (09/17/2008 16:26 EST) Pathologist [facility] Renin Activity, Plasma 2.3Unit: ng/mL/h -- REFERENCE VALUE -- ? (Peripheral vein specimen) ? Na-depleted, upright: ?Mean: 10.8 ?Range: 2.9-24 ? Na-replete, upright: ?Mean: 1.9 ?Range: <= 0.6-4.3 ? Performed or Referred by: [facility] Dpt of Lab Med and Path, [address] [place] [address], Lab Dir: Hebert Cisneros III, ? MD ? [facility] 09/17/2008 16:2 6 EST 09/17/2008 16:28 EST Judith Ballard MBBS MPH CHEMISTRY & BLO OD GAS ORDERABLES [facility] [address] [place] [address] * CATECHOLAMINE FRACTIONATION, PLASMA, FREE (09/17/2008 16:26 EST) Norepinephrine 539Unit: pg/mL -- REFERENCE VALUE -- ? 70-750 (Supine) ? 200-1700 (Standing) ? [facility] Epinephrine <10Unit: pg/mL -- REFERENCE VALUE -- ? Undetectable- 110 (Supine) ? Undetectable- 140 (Standing) ? [facility] Dopamine 12Unit: pg/mL -- REFERENCE VALUE -- ? <30 (no postural change) ? PLEASE NOTE: ??High/low flagging is based on supine normal ? values. ? Performed or Referred by: [facility] Dpt of Lab Med and Path, [address] ? [place] [address], Lab Dir: Hebert Cisneros III, ? MD ? [facility] 09/17/2008 16:2 6 EST 09/17/2008 16:28 EST Judith Ballard MBBS MPH CHEMISTRY & BLO OD GAS ORDERABLES [facility] [address] [place] [address] * ALDOSTERONE, SERUM (09/17/2008 16:26 EST) Aldosterone, Serum 6.2Reference range: <=21 Unit: ng/dL Reference range based on upright A.M. collection from subjects ? on ad rah sodium uptake. ? Performed or Referred by: [facility] Dpt of Lab Med and Path, [address] ? [place] [address], Lab Dir: Hebert Cisneros III, ? MD ? [facility] 09/17/2008 16:2 6 EST 09/17/2008 16:28 EST Judith SANTANABS MPH CHEMISTRY & BLO OD GAS ORDERABLES [facility] [address] [place] [address] * (ABNORMAL) NEPHROLOGY PROFILE (09/17/2008 16:26 EST) Sodium 139 136 - 145 mEq/L [facility] Potassium 4.1 3.5 - 5.0 mEq/L [facility] Chloride 104 96 - 110 mEq/L [facility] CO2 26 24 - 32 mEq/L [facility] Albumin 4.1 3.4 - 4.9 g/dl [facility] Calcium 9.0 8.5 - 10.5 mg/dl [facility] Calculated Calcium 9.3 8.5 - 10.5 mg/dl [facility] BUN 12 10 - 26 mg/dl [facility] Creatinine 0.70 0.7 - 1.5 mg/dl [facility] GFR, Calculated >60 ml/min/1.7 3m2 [facility] Phosphorus 2.3(L) 2.5 - 4.5 mg/dl [facility] 09/17/2008 16:2 6 EST 09/17/2008 16:28 EST Judith FINLEY MPH PACKAGES & DNA PROBE ORDERABLES Performing Organization Address [facility] Co de Phone Number [facility] [address] [place] [address] * HEMAGRAM (09/17/2008 16:26 EST) WBC 7.21 4.0 - 12.4 K/cmm [facility] RBC 5.00 3.86 - 5.04 M/cmm [facility] Hemoglobin 14.7 11.6 - 15.2 gm/dl [facility] HCT 42.3 34.9 - 44.4 % [facility] MCV 85 81 - 98 fl [facility] MCH 29.4 26.7 - 33.3 pg [facility] MCHC 34.7 32.1 - 35.9 gm/dl [facility] PLT 254 141 - 320 K/cmm [facility] RDW-CV 13.1 11.7 - 14.6 % [facility] 09/17/2008 16:2 6 EST 09/17/2008 16:28 EST Judith FINLEY MPH HEMATOLOGY & PF 4 ORDERABLES Performing Organization Address [facility] Co de Phone Number [facility] [address] [place] [address] documented in this encounter Visit Diagnoses Not on filedocumented in this encounter
--- OUTSIDE RECORDS SUMMARY | 2024-05-24 15:29 | XMS_ITS | Encounter Summary ---
Author Organization [facility] Address [address] [place] [address] Care Team Providers Care Battery Technician Name Role Phone Shannan Vieyra MD Primary Care Provider Unavail able Reason for Visit * Reason Onset Date Comments Medication Problem 02/13/2010 Encounter Details Date Type Department Care Team (Late st Contact Info) Description 02/13/2010 Refill [facility] Medicine [address] [id number] Shannan Vieyra MD Medication Problem Social History [...] Dispensed Refills Start Date End Da te Codeine-Guaifenesin 10-200 mg/5 mL LiqdIndications:Cough Take 5 mL by mouth every 4 hours as needed for Other. cough 120 mL 1 02/13/2010 02/08/2011 documented in this encounter Miscellaneous Notes * Telephone Encounter - Edel Crocker - 02/13/2010 1654 EDT Patient called and stated that pharmacy needs PA for tussionex. Dr. Vieyra suggested robitussin with codeine. Patient is ok with this. Can this be ordered and called in? documented in this encounter Plan of Treatment Not on file documented as of this encounter Visit Diagnoses Diagnosis Cough- Primary documented in this encounter Care Teams Battery Technician Relationship Specialty Start Date End Date Shannan Vieyra MD PCP - General 04/08/09 03/15/19 documented as of this encounter
--- OUTSIDE RECORDS SUMMARY | 2024-05-24 15:29 | XMS_ITS | Encounter Summary ---
Author Organization [facility] Address [address] [place] [address] Care Team Providers Care Refrigerating Engineer Head Name Role Phone Shannan Vieyra MD Primary Care Provider Unavail able Encounter Details Date Type Department Care Team (Late st Contact Info) Description 08/14/2010 Abstract [facility] Endocrinology - [facility] [address] [place] [address] Juan Pablo Toth MD [address] [facility] [address] [place] [address] Social History Tobacco Use Types Packs/Day Years [...] Diagnoses Not on filedocumented in this encounter Historical Medications * This list may reflect changes made after this encounter. Medication Sig Dispensed Refills Start Date End Date hydrochlorothiazide (HYDRODIURIL) 12.5 mg tablet Take 12.5 mg by mouth daily. 02/08/2011 atenolol (TENORMIN) 100 mg tablet Take 100 mg by mouth daily. 02/08/2011 added in this encounter Care Teams Refrigerating Engineer Head Relationship Specialty Start Date End Date Shannan Vieyra MD PCP - General 04/08/09 03/15/19 documented as of this encounter
--- OUTSIDE RECORDS SUMMARY | 2024-05-24 15:29 | XMS_ITS | Encounter Summary ---
Author Organization [facility] Address [address] [place] [address] Care Team Providers Care Cleat Thrower Name Role Phone Shannan Vieyra MD Primary Care Provider Unavail able Encounter Details Date Type Department Care Team (Late st Contact Info) Description 01/19/2010 Orders Only [facility] Medicine - [place] [id number] Leida Creda PA-C [address] [facility] [address] [place] [place], [place] [phone] Grave's disease (Primary Dx) Social History Tobacco Use Types [...] Procedure Name Priority Date/Time Associated Diagnosis Comments OUTPATIENT ADD-ON Routine 01/19/2010 13: 41 EDT documented in this encounter Results * OUTPATIENT ADD-ON (01/19/2010 13:41 EDT) Tests to be added T4 Free [facility] Diagnosis Code graves disease [facility] Number for problems [id number] or [id number] [facility] Accession number [id number] [facility] Acknowledge ABP Done [facility] 01/19/2010 13:4 1 EDT 01/19/2010 13:47 EDT Leida Cerda PA-C HEMATOLOGY & PF4 ORDERABLES Performing Organization Address City/State/[facility] Co de Phone Number [facility] [address] [place] [address] documented in this encounter Visit Diagnoses Diagnosis Grave's disease- Primary Toxic diffuse goiter without mention of thyrotoxic crisis or storm documented in this encounter Care Teams Cleat Thrower Relationship Specialty Start Date End Date Shannan Vieyra MD PCP - General 04/08/09 03/15/19 documented as of this encounter
--- OUTSIDE RECORDS SUMMARY | 2024-05-24 15:29 | XMS_ITS | Encounter Summary ---
Author Organization [facility] Address [address] [place] [address] Care Team Providers Care Commercial Counsel Name Role Phone Shannan Vieyra MD Primary Care Provider Unavail able Encounter Details Date Type Department Care Team (Late st Contact Info) Description 02/08/2011 Phlebotomy Only [address] [address] [place], Outpatient Other postablative hypothyroidism Social History Tobacco [...] Date/Time Associated Diagnosis Comments T3 FREE Routine 02/08/2011 14:07 EDT Other postablative hypothyroidism TSH Routine 02/08/2011 14:07 EDT Other postablative hypothyroidism T4 FREE Routine 02/08/2011 14:07 EDT Other postablative hypothyroidism documented in this encounter Results * T3 FREE (02/08/2011 14:07 EDT) T3, Free 2.3 2.3 - 4.2 pg/mL [facility] Blood specimen (specimen) 02/08/2011 14:07 EDT 02/08/2011 14:09 EDT Juan Pablo Toth MD CHEMISTRY & BLOOD GAS ORDERABLES Performing Organization Address [facility] Phone Number [facility] [address] [place] [address] * TSH (02/08/2011 14:07 EDT) TSH 1.21 0.35 - 5.00 uIU/ml [facility] Blood specimen (specimen) 02/08/2011 14:07 EDT 02/08/2011 14:09 EDT Juan Pablo Toth MD CHEMISTRY & BLOOD GAS ORDERABLES Performing Organization Address [facility] de Phone Number [facility] [address] [place] [address] * T4 FREE (02/08/2011 14:07 EDT) Free T4 0.8 0.8 - 1.8 ng/dL [facility] Blood specimen (specimen) 02/08/2011 14:07 EDT 02/08/2011 14:09 EDT Juan Pablo Toth MD CHEMISTRY & BLOOD GAS ORDERABLES Performing Organization Address [facility] Phone Number [facility] [address] [place] [address] documented in this encounter Visit Diagnoses Diagnosis Other postablative hypothyroidism documented in this encounter Care Teams Commercial Counsel Relationship Specialty Start Date End Date Shannan Vieyra MD PCP - General 04/08/09 03/15/19 documented as of this encounter
--- OUTSIDE RECORDS SUMMARY | 2024-05-24 15:29 | XMS_ITS | Encounter Summary ---
Author Organization [facility] Address [address] [place] [address] Care Team Providers Care Spectrograph Operator Name Role Phone Shannan Vieyra MD Primary Care Provider Unavail able Reason for Visit * Reason Onset Date Comments Insect Bite 05/21/2012 Encounter Details Date Type Department Care Team (Late st Contact Info) Description 05/21/[address] [address] Oli Yanes MD Insect Bite Social History Tobacco Use Types Packs/Day Years Used Date Smoking Tobacco: Never Alcohol Use Standard Drinks/Week Comments No 0 (1 standard drink = 0.6 oz pur e alcohol) Sex and Gender Information Value Date Recorded Sex Assigned at Not on file Gender Identity Not on file Sexual Orientation Not on file documented as of this encounter Miscellaneous Notes * Telephone Encounter - Oli Yanes MD - 05/21/2012 193 EDT Telephone Call Encounter: CC: Insect bite Information provided by: patient S: Woke up with lesion on right leg, yesterday. Initially looked like a tiny spider bite. Now red, swollen, size of baseball. Hot to touch. Starting to feel chest tightness, but can breathe. Admits to feeling nervous about skin lesion. No fevers, no streaking of the wound. A/P: 32yo with insect bite to right leg, with likely inflammatory reaction. Did consider cellulitis, but no streaking or fevers currently. Advised patient to take 25mg of PO benadryl now and apply hydrocortisone cream to area to help reduce swelling. Also recommended to place a cool wash cloth to area. Patient will monitor lesion overnight and call if concern of fevers or streaking. Advised pt to make f/u appt tomorrow if lesion does not improve. OLI YANES MD Baggage Checker Pager [phone] 05/21/2012 19:31 documented in this encounter Plan of Treatment Not on file documented as of this encounter Visit Diagnoses Not on filedocumented in this encounter Care Teams Spectrograph Operator Relationship Specialty Start Date End Date Shannan Vieyra MD PCP - General 04/08/09 03/15/19 documented as of this encounter
--- OUTSIDE RECORDS SUMMARY | 2024-05-24 15:29 | XMS_ITS | Encounter Summary ---
Author Organization [facility] Address [address] [place] [address] Care Team Providers Care Cutter Apprentice Hand Name Role Phone Shannan Vieyar MD Primary Care Provider Unavail able Encounter Details Date Type Department Care Team (Latest Contact Info) Description 05/31/2011 15:30 EDT - 05/31/2011 23:59 EDT Hospital Encounter [address] [address] Juan Pablo Toth MD [employer] [address] [place] [phone] Discharge Disposition: Home or Self Care Social [...] Sig Dispensed Refills Start Date End Date levonorgestrel-ethinyl estradiol (SEASONALE) 0.15-30 mg-mcg per tablet Take 1 Tab by mouth daily. 06/25/2020 lisinopril-hydrochlorothi azide (PRINZIDE, ZESTORETIC) 20-12.5 mg per tabletIndications:Hyperte nsion Take 1 Tab by mouth daily. 90 Tab 3 03/09/2011 06/06/2012 thyroid (ARMOUR THYROID) 120 mg tablet Take 1 Tab by mouth daily. 30 Each 11 04/15/2011 06/14/2012 documented as of this encounter Discharge Disposition Disposition Code Departure Means Destination Home or Self Shelter documented in this encounter Plan of Treatment Not on file documented as of this encounter Visit Diagnoses Not on filedocumented in this encounter Care Teams Cutter Apprentice Hand Relationship Specialty Start Date End Date Shannan Vieyra MD PCP - General 04/08/09 03/15/19 documented as of this encounter
--- OUTSIDE RECORDS SUMMARY | 2024-05-24 15:29 | XMS_ITS | Encounter Summary ---
Author Organization [facility] Address [address] [place] [address] Care Team Providers Care Press Machine Operator Name Role Phone Shannan Vieyra MD Primary Care Provider Unavail able Encounter Details Date Type Department Care Team (Latest Contact Info) Description 02/09/2011 Orders Only [facility] Endocrinology - [facility] [address] [place] [address] Juan Pablo Toth MD [address] [facility] [address] [place] [address] Other postablative hypothyroidism (Primary Dx) Social History Tobacco Use Types [...] Dispensed Refills Start Date End Da te SYNTHROID 125 mcg tablet Take 1 Tab by mouth daily. NEEDS BRAND NAME FOR PROPER ABSORPTION 30 Tab 12 02/09/2011 04/15/2011 documented in this encounter Plan of Treatment Not on file documented as of this encounter Results * (ABNORMAL) TSH (03/23/2011 11:55 EDT) TSH 0.04(L) 0.35 - 5.00 uIU/ml [facility] Blood specimen (specimen) 03/23/2011 11:55 EDT 03/23/2011 11:56 EDT Juan Pablo Toth MD CHEMISTRY & BLOOD GAS ORDERABLES Performing Organization Address [facility] Co de Phone Number [facility] [address] [place] [address] * T4 FREE (03/23/2011 11:55 EDT) Free T4 1.4 0.8 - 1.8 ng/dL [facility] specimen (specimen) 03/23/2011 11:55 EDT 03/23/2011 11:56 EDT Juan Pablo Toth MD CHEMISTRY & BLOOD GAS ORDERABLES Performing Organization Address [facility] de Phone Number [facility] [address] [place] [address] documented in this encounter Visit Diagnoses Diagnosis Other postablative hypothyroidism- Primary documented in this encounter Discontinued Medications Medication Sig Discontinue Reason Start Date End Da te SYNTHROID 100 mcg tablet Take 1 Tab by mouth daily. NEEDS BRAND NAME FOR PROPER ABSORPTION 02/08/2011 02/09/2011 documented as of this encounter Care Teams Press Machine Operator Relationship Specialty Start Date End Date Shannan Vieyra MD PCP - General 04/08/09 03/15/19 documented as of this encounter
--- OUTSIDE RECORDS SUMMARY | 2024-05-24 15:29 | XMS_ITS | Encounter Summary ---
Author Organization [facility] Address [address] [place] [address] Care Team Providers Care Electrolytic De Scaler Name Role Phone Shannan Vieyra MD Primary Care Provider Unavail able Reason for Visit * Reason Onset Date Comments Medications Refill 11/06/2010 please call i n brand only. Encounter Details Date Type Department Care Team (Late st Contact Info) Description 11/06/2010 Refill [facility] Endocrinology - [facility] [address] [place] [address] Juan Pablo Toth MD [address] [facility] [address] [place] [address] Medications Refill (please call in brand only.) Social History Tobacco Use Types Packs/Day Years [...] Refills Start Date End Da te SYNTHROID 100 mcg tablet Take 1 Tab by mouth daily. AUGUST ONEIL/DR. DESAI needs to make an appointment 30 Tab 1 11/06/2010 02/08/2011 documented in this encounter Plan of Treatment Not on file documented as of this encounter Visit Diagnoses Not on filedocumented in this encounter Discontinued Medications Medication Sig Discontinue Reason Start Date End Da te levothyroxine (SYNTHROID) 100 mcg tablet Take 100 mcg by mouth daily. AUGUST ONEIL/DR. DESAI Reorder 11/06/2010 documented as of this encounter Care Teams Electrolytic De Scaler Relationship Specialty Start Date End Date Shannan Vieyra MD PCP - General 04/08/09 03/15/19 documented as of this encounter
--- OUTSIDE RECORDS SUMMARY | 2024-05-24 15:29 | XMS_ITS | Encounter Summary ---
Author Organization [facility] Address [address] [place] [address] Care Team Providers Care Prn Physical Therapist Name Role Phone Unavailable Primary Care Provider Unavailabl e Encounter Details Date Type Department Care Team (Late st Contact Info) Description 10/08/2008 10:19 EST - 10/08/2008 11:59 EST Hospital Encounter [facility] [address] [place] [address] Unknown, ProviderMD Rod Cohen MD [address] [facility] [address] [place] [address] Discharge Disposition: Auto Discharge Social History Tobacco [...] Procedure Name Priority Date/Time Associated Diagnosis Comments VL RENAL ARTERY DUPLEX 10/08/2008 10:58 EST documented in this encounter Results * VL RENAL ARTERY DUPLEX (10/08/2008 10:58 EST) Anatomical Region Laterality Modality Other 10/08/2008 10:5 8 EST Narrative 02/24/2009 10:06 EDT DIFFICULT TO CONTROL BP RENAL ARTERY DUPLEX ULTRASOUND PROCEDURE: ??Renal artery duplex scan performed with 2D, spectral, and color flow Doppler. [id number]. INDICATION: Uncontrolled hypertension. HISTORY: ?HPT, Known small right kidney. RIGHT FINDINGS Right Kidney length: ?? 8.3 cm Right RENAL ARTERY PROX: ?? Sys: ??107 cm/sec Lupe: ?? 42 cm/sec Right RENAL ARTERY MID.: ?? Sys: ?? 87 cm/sec Lupe: ?? 40 cm/sec Right RENAL ARTERY DIST: ?? Sys: ?? 80 cm/sec Lupe: ?? 37 cm/sec Average RI: ??0.55 Right renal aortic ratio: ?1.1 Maximum aortic diameter: ??2.20 cm Systolic juxta-renal aortic velocity: ?? 94 cm/sec Right Renal vein: Normal flow. LEFT FINDINGS Left Kidney length: ??12.4 cm Left RENAL ARTERY PROX: ?Sys: ??163 cm/sec Lupe: ?? 56 cm/sec Left RENAL ARTERY MID.: ?Sys: ??121 cm/sec Lupe: ?? 55 cm/sec Left RENAL ARTERY DIST: ?Sys: ??117 cm/sec Lupe: ?? 56 cm/sec Average RI: ??0.56 Left renal aortic ratio: ?1.7 Maximum aortic diameter: ??2.20 cm Systolic juxta-renal aortic velocity: ?? 94 cm/sec Left Renal vein: Normal flow. RIGHT IMPRESSION The renal artery velocities are consistent with no significant stenosis. ?? Resistive index is normal, 0.55. LEFT IMPRESSION The renal artery velocities are consistent with no significant stenosis. ?? Resistive index is normal, 0.56. Procedure Note Rod Cohen MD - 02/24/2009 DIFFICULT TO CONTROL BP RENAL ARTERY DUPLEX ULTRASOUND PROCEDURE: Renal artery duplex scan performed with 2D, spectral, and color flow Doppler. [id number]. INDICATION: Uncontrolled hypertension. HISTORY: HPT, Known small right kidney. RIGHT FINDINGS Right Kidney length: 8.3 cm Right RENAL ARTERY PROX: Sys: 107 cm/sec Lupe: 42 cm/sec Right RENAL ARTERY MID.: Sys: 87 cm/sec Lupe: 40 cm/sec Right RENAL ARTERY DIST: Sys: 80 cm/sec Lupe: 37 cm/sec Average RI: 0.55 Right renal aortic ratio: 1.1 Maximum aortic diameter: 2.20 cm Systolic juxta-renal aortic velocity: 94 cm/sec Right Renal vein: Normal flow. LEFT FINDINGS Left Kidney length: 12.4 cm Left RENAL ARTERY PROX: Sys: 163 cm/sec Lupe: 56 cm/sec Left RENAL ARTERY MID.: Sys: 121 cm/sec Lupe: 55 cm/sec Left RENAL ARTERY DIST: Sys: 117 cm/sec Lupe: 56 cm/sec Average RI: 0.56 Left renal aortic ratio: 1.7 Maximum aortic diameter: 2.20 cm Systolic juxta-renal aortic velocity: 94 cm/sec Left Renal vein: Normal flow. RIGHT IMPRESSION The renal artery velocities are consistent with no significant stenosis. Resistive index is normal, 0.55. LEFT IMPRESSION The renal artery velocities are consistent with no significant stenosis. Resistive index is normal, 0.56. Judith FINLEY M[facility] IMG US VASCULAR ORDERABLES documented in this encounter Visit Diagnoses Not on filedocumented in this encounter
--- OUTSIDE RECORDS SUMMARY | 2024-05-24 15:29 | XMS_ITS | Encounter Summary ---
Author Organization [facility] Address [address] [place] [address] Care Team Providers Care Marine Tower Operator Name Role Phone Shannan Vieyra MD Primary Care Provider Unavail able Encounter Details Date Type Department Care Team (Late st Contact Info) Description 11/06/2012 Orders Only [facility] Medicine [address] [id number] Leida Cerda PA-C [address] [facility] [address] [place], [place] [phone] Other iatrogenic hypothyroidism (Primary Dx) Social History Tobacco Use [...] Dispensed Refills Start Date End Da te thyroid (ARMOUR THYROID) 15 mg tabletIndications:Other iatrogenic hypothyroidism Take 1 Tab by mouth daily. 90 Each 3 11/06/2012 10/16/2013 documented in this encounter Progress Notes * Leida Cerda PA - 11/06/2012 1403 EST Phone call with pt. TSH is now high on 90mg of [place] Thyroid. Her TSH was low on 120 mg dose. There is no single tablet with a strength in between. Will add 15 mg tabs to the 90 mg for a total dailydose of 105 mg. Will repeat TSH in 2 mo. documented in this encounter Plan of Treatment Not on file documented as of this encounter Visit Diagnoses Diagnosis Other iatrogenic hypothyroidism- Primary documented in this encounter Care Teams Marine Tower Operator Relationship Specialty Start Date End Date Shannan Vieyra MD PCP - General 04/08/09 03/15/19 documented as of this encounter
--- OUTSIDE RECORDS SUMMARY | 2024-05-24 15:29 | XMS_ITS | Encounter Summary ---
Author Organization [facility] Address [address] [place] [address] Care Team Providers Care Central Supply Technician Supervisor Name Role Phone Unavailable Primary Care Provider Unavailabl e Encounter Details Date Type Department Care Team (Late st Contact Info) Description 07/01/2008 10:29 EDT - 07/01/2008 11:59 EDT Hospital Encounter [facility] - Other [address] [place] [phone] Denice Martinez MD [address] [facility] [address] [place] [address] Discharge Disposition: Home or Self Care Social [...]
--- OUTSIDE RECORDS SUMMARY | 2024-05-24 15:29 | XMS_ITS | Encounter Summary ---
Author Organization [facility] Address [address] [place] [address] Care Team Providers Care Environmental Manager Name Role Phone Shannan Vieyra MD Primary Care Provider Unavail able Encounter Details Date Type Department Care Team (Late st Contact Info) Description 03/18/2008 Before PRISM Converted Visit (Maple) [facility] - Maple conversion [address] [place] [address] Miguel Devine MD PhD 111 [facility] [address] [place] [phone] Social History Tobacco Use Types Packs/Day Years Used Date Smoking Tobacco: Never Assessed Sex and Gender Information Value Date Recorded Sex Assigned at Not on file Gender Identity Not on file Sexual Orientation Not on file documented as of this encounter Progress Notes * Miguel Devine MD - 07/11/2009 1015 EDT RE: NAME: DORIS KERR : 1980 PROGRESS/FOLLOWUP NOTE - 03/18/2008 Shannan Vieyra MD [facility] [address] [place] [address], [address] [facility] [phone] Vieyra: I had the pleasure of seeing Doris back in cardiac arrhythmia clinic today. We have finally managed to get Doris euthyroid, in spite of which she continues to have sinus tachycardia and diastolic hypertension that is quite impressive. Recall that Bobbiehistory is notable for hyperthyroidism with marked sinus tachycardia and a longstanding history of suppression of thyroid function ultimately resulting in thyroid ablation, which was performed with I131. Since her thyroid ablation she has constitutionally improved immensely; however, she remains plagued with hypertension and a fast resting heart rate. Mind you, the last time we saw her when she was hyperthyroid her resting heart rate was deonte roximately 150 bpm and now it is back to 100, but still inappropriate. Her heart rate still goes upconsiderably with just standing despite the fact that she is on both calcium channel blockade and beta-blockade therapies. 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 The question is whether or not there might be a component of renovascular disease as a secondary cause for her marked diastolic hypertension and tachycardia. I am going to ask that she be evaluated for this possibility by Dr. Judith Ballard with whom we will assist in arranging a consultation in the next couple of days to weeks. We will continue to follow along with her management to see how things go. More than 60 minutes were spent in consultation and establishing a plan of care with Doris. I saw her in conjunction with the fellow, Flako Mondragon. Medications have been reviewed and updated with the patient. A copy of their current medications have been provided. Once again, thank you very much for allowing me to participate in her care. Please do not hesitate to call if you have any further questions or concerns. Sincerely, Signed by Miguel Devine MD 03/28/2008 13:23 Miguel Devine MD - Miguel Devine MD - ROB Job ID: [id number] Doc ID: [id number] cc: Shannan Vieyra MD documented in this encounter Plan of Treatment Not on file documented as of this encounter Visit Diagnoses Not on filedocumented in this encounter Care Teams Environmental Manager Relationship Specialty Start Date End Date Shannan Vieyra MD PCP - General 6/30/09 6/6/19 documented as of this encounter
--- OUTSIDE RECORDS SUMMARY | 2024-05-24 15:29 | XMS_ITS | Encounter Summary ---
Author Organization [facility] Address [address] [place] [address] Care Team Providers Care Systems Software Developer Name Role Phone Shannan Vieyra MD Primary Care Provider Unavail able Reason for Visit * Reason Comments Hypertension Encounter Details Date Type Department Care Team (Late st Contact Info) Description 01/16/2010 15:30 EDT Office Visit [facility] Family Medicine [place] [phone] Leida Cerda PA-C [address] [phone] Hypertension; Grave's disease Social History Tobacco Use Types Packs/Day [...] Sign Reading Time Taken Comments Blood Pressure 110/80 01/16/2010 1513 EDT Pulse 88 01/16/2010 1513 EDT Temperature - - Respiratory Rate - - Oxygen Saturation - - Inhaled Oxygen Concentration - - Weight 83 kg (183 lb) 01/16/2010 1513 EDT Height - - Body Mass Index - - documented in this encounter Progress Notes * Leida Cerda PA - 01/16/2010 1557 EDT S: Patient is here to follow up on hypertension. Patient is monitoring home blood pressures. Patient is trying to follow a low salt diet. Patient is exercising regularly. Patient is not a smoker. Patient denies chest pain, dyspnea and exertional chest pressure/discomfort. Has mild swelling by the end of the day. BP at information assurance officer office recently was normal. Tolerates the higher dose of medication. Due for thyroid check too. Current outpatient prescriptions prior to encounter Medication Sig Dispense Refill ??? levothyroxine (SYNTHROID) 100 mcg tablet Take 100 mcg by mouth daily. BRAND ONLY/DR. DESAI ??? lisinopril-hydrochlorothiazide (PRINZIDE, ZESTORETIC) 20-12.5 mg per tablet Take 1 Tab by mouthdaily. 90 Tab 3 ??? levonorgestrel-ethinyl estradiol (SEASONALE) 0.15-30 mg-mcg per tablet Take 1 Tab by mouth daily. ??? ALBUTEROL INHL Inhale 2 Puffs as directed. O: BP 110/80 Pulse 88 Wt 83.008 kg (183 lb) Looks well Heart RRR Lungs CTA Trace non pitting edema in ankles bilaterally A: improved hypertension control P: Doris was seen today for hypertension. Diagnoses and associated orders for this visit: - Hypertension - Basic metabolic panel - Grave's disease - Tsh Continue occasional home BP checks and f/u if they become elevated. Patient Education Topic: as above Method: Verbal Taught to: Patient Barriers: None Outcomes: verbalized understanding Signature:DT documented in this encounter Plan of Treatment Not on file documented as of this encounter Procedures Procedure Name Priority Date/Time Associated Diagnosis Comments TSH Routine 01/16/2010 15:50 EDT Grave's disease T4 FREE Routine 01/16/2010 15:50 EDT BASIC METABOLIC PANEL (BMP) Routine 01/16/2010 15:50 EDT Hypertension documented in this encounter Results * T4 FREE (01/16/2010 15:50 EDT) Free T4 1.4 0.8 - 1.8 ng/dL [facility] 01/16/2010 15:5 0 EDT 01/16/2010 18:26 EDT Leida Cerda PA-C CHEMISTRY & BLOOD GAS ORDERABLES Performing Organization Address [facility] de Phone Number [facility] [address] [place] [address] * (ABNORMAL) TSH (01/16/2010 15:50 EDT) Pathologist [facility] TSH <0.02(L) 0.35 - 5.00 uIU/ml [facility] Blood specimen (specimen) 01/16/2010 15:50 EDT 01/16/2010 18:26 EDT Leida Cerda PA-C CHEMISTRY & BLOOD GAS ORDERABLES Performing Organization Address [facility] Phone Number [facility] [address] [place] [address] * (ABNORMAL) BASIC METABOLIC PANEL (01/16/2010 15:50 EDT) Pathologist [facility] Sodium 139 136 - 145 mEq/L [facility] Potassium 4.2 3.5 - 5.0 mEq/L [facility] Chloride 101 96 - 110 mEq/L [facility] CO2 30 24 - 32 mEq/L [facility] BUN 13 10 - 26 mg/dl [facility] Creatinine 0.67(L) 0.7 - 1.5 mg/dl [facility] GFR, Calculated >60 ml/min/1.7 3m2 [facility] Calcium 9.8 8.5 - 10.5 mg/dl [facility] Calculated Calcium 10.0 8.5 - 10.5 mg/dl [facility] Glucose, Serum 77 70 - 100 mg/dl [facility] Fasting? Unknown [facility] Blood specimen (specimen) 01/16/2010 15:50 EDT 01/16/2010 18:26 EDT Leida Cerda PA-C CHEMISTRY & BLOOD GAS ORDERABLES Performing Organization Address [facility] de Phone Number [facility] [address] [place] [address] documented in this encounter Visit Diagnoses Diagnosis Hypertension Unspecified essential hypertension Grave's disease Toxic diffuse goiter without mention of thyrotoxic crisis or storm documented in this encounter Discontinued Medications Medication Sig Discontinue Reason Start Date End Da te atenolol (TENORMIN) 50 mg tablet Take 50 mg by mouth 2 times daily. Alternate therapy 01/16/2010 documented as of this encounter Care Teams Systems Software Developer Relationship Specialty Start Date End Date Shannan Vieyra MD PCP - General 04/08/09 03/15/19 documented as of this encounter
--- OUTSIDE RECORDS SUMMARY | 2024-05-24 15:29 | XMS_ITS | Encounter Summary ---
Author Organization [facility] Address [address] [place] [id number] Care Team Providers Care Pole Peeling Machine Operator Helper Name Role Phone Shannan Vieyra MD Primary Care Provider Unavail able Reason for Visit * Reason Onset Date Comments Letter for School/Work 02/16/2010 Encounter Details Date Type Department Care Team (Late st Contact Info) Description 02/16/2010 Telephone [facility] Family Medicine - [address] [phone] Shannan Vieyra MD Letter for School/Work Social History Tobacco Use Types Packs/Day Years Used Date Smoking Tobacco: Never Alcohol Use Standard Drinks/Week Comments No 0 (1 standard drink = 0.6 oz pur e alcohol) Sex and Gender Information Value Date Recorded Sex Assigned at Not on file Gender Identity Not on file Sexual Orientation Not on file documented as of this encounter Miscellaneous Notes * Telephone Encounter - Tracy Ma RN - 02/16/2010 1233 EDT Note written, given to CF to sign * Telephone Encounter - Edel Crocker - 02/16/2010 1129 EDT Needs a note stating that she should be out of work and school until Tuesday. Was seen on Tuesday by Dr. Vieyra. Please call when ready to pickle sorter. documented in this encounter Plan of Treatment Not on file documented as of this encounter Visit Diagnoses Not on filedocumented in this encounter Care Teams Pole Peeling Machine Operator Helper Relationship Specialty Start Date End Date Shannan Vieyra MD PCP - General 04/08/09 03/15/19 documented as of this encounter
--- OUTSIDE RECORDS SUMMARY | 2024-05-24 15:29 | XMS_ITS | Encounter Summary ---
Author Organization [facility] Address [address] [place] [address] Care Team Providers Care Video Network Engineer Name Role Phone Shannan Vieyra MD Primary Care Provider Unavail able Reason for Visit * Reason Onset Date Comments Results 02/09/2011 Encounter Details Date Type Department Care Team (Late st Contact Info) Description 02/09/2011 Telephone [facility] Endocrinology - [address] [phone] Madan Jiang, RN Results Social History Tobacco Use Types Packs/Day Years Used Date Smoking Tobacco: Never Alcohol Use Standard Drinks/Week Comments No 0 (1 standard drink = 0.6 oz pur e alcohol) Sex and Gender Information Value Date Recorded Sex Assigned at Not on file Gender Identity Not on file Sexual Orientation Not on file documented as of this encounter Miscellaneous Notes * Telephone Encounter - Madan Jiang - 02/09/20111658 EDT Pt called told of increase in meds. Patient Education Topic: .hyperthyroidism difficulty sleeping , heat intolerane, increased sweating, menstrual irregularities, nervousness, rapid/irregular hearbeat, throat and neck pain, weight loss, fatigue Method: Verbal Taught to: Patient Barriers: None Outcomes: independent Signature:MADAN JIANG RN * Telephone Encounter - Madan Jiang - 02/09/20111656 EDT Message copied by MADAN JIANG on TueFebruary 09, [id number] ------ Message from: AUGUSTA ROD Created: Ophelia February 09, 2011 1311 Up-titrate to 125 mcg/da y Madan please call her and tell to watch for palpitations I already called [facility] and ordered documented in this encounter Plan of Treatment Not on file documented as of this encounter Visit Diagnoses Not on filedocumented in this encounter Care Teams Video Network Engineer Relationship Specialty Start Date End Date Shannan Vieyra MD PCP - General 04/08/09 03/15/19 documented as of this encounter
--- OUTSIDE RECORDS SUMMARY | 2024-05-24 15:29 | XMS_ITS | Encounter Summary ---
Author Organization [facility] Address [address] [place] [address] Care Team Providers Care Bender Machine Operator Name Role Phone Shannan Vieyra MD Primary Care Provider Unavail able Encounter Details Date Type Department Care Team (Late st Contact Info) Description 10/23/2012 16:33 EST - 10/23/2012 23:59 EST Hospital Encounter [address] [address] Unknown, Provider, Leida Cerda PA-C [address] [place] [phone] Discharge Disposition: Auto Discharge Social History Tobacco [...] daily. 90 Tab 3 06/14/2012 10/15/2013 thyroid (ARMOUR) 90 mg tabletIndications:Other iatrogenic hypothyroidism Take 1 Tab by mouth daily. (Cancel order/refills on 120 mg dose) 90 Each 3 06/19/2012 10/15/2013 documented as of this encounter Discharge Disposition Disposition Code Departure Means Destination Auto Discharge Home documented in this encounter Plan of Treatment Not on file documented as of this encounter Visit Diagnoses Not on filedocumented in this encounter Care Teams Bender Machine Operator Relationship Specialty Start Date End Date Shannan Vieyra MD PCP - General 04/08/09 03/15/19 documented as of this encounter
--- OUTSIDE RECORDS SUMMARY | 2024-05-24 15:29 | XMS_ITS | Encounter Summary ---
Author Organization [facility] Address [address] [place] [id number] Care Team Providers Care Process Description Writer Name Role Phone Shannan Vieyra MD Primary Care Provider Unavail able Reason for Visit * Reason Comments Cough For about 2 weeks, c ant catch her breath, just seems to get worse. Cough is productive. Encounter Details Date Type Department Care Team (Late st Contact Info) Description 11/29/2011 9:30 EST Office Visit [facility] Family Medicine [address] [phone] Jayashree Torres MD [address] [place] [phone] Bronchitis, acute; RAD (reactive airway disease) Social History Tobacco Use Types Packs/Day Years [...] Reading Time Taken Comments Blood Pressure 110/80 11/29/2011 0920 EST Pulse 88 11/29/2011 0920 EST Temperature 37.1 ??C (98.8 ??F) 11/29/2011 0920 EST Respiratory Rate 16 11/29/2011 0920 EST Oxygen Saturation - - Inhaled Oxygen Concentration - - Weight 83.5 kg (184 lb) 11/29/2011 0920 EST Height - - Body Mass Index 31.58 03/23/2011 1110 EDT documented in this encounter Patient Instructions * Patient Instructions* Jayashree Bruno MD - 11/29/2011 9:48 EST Images from the original note were not included. [facility] Patient Instructions Bronchitis in Adults: After Your Visit Your Care Instructions Bronchitis is inflammation of the bronchial tubes, which carry air to the lungs. The tubes swell and produce mucus, or phlegm. The mucus and inflamed bronchial tubes make you cough. You may have trouble breathing. Most cases of bronchitis are caused by viruses like those that cause colds. Antibiotics can help cure bronchitis that is caused by bacteria, but not bronchitis that is caused by a virus. Bronchitis usually develops rapidly and lasts about 2 to 3 weeks in otherwise healthy people. Follow-up care is a john part of your treatment and safety. Be sure to make and go to all appointments, and call your doctor if you are having problems. It???s also a good idea to know your test results and keep a list of the medicines you take. How can you care for yourself at home? MARGIN-BOTTOM: 0mm Take all medicines exactly as prescribed. If your doctor prescribes antibiotics, take them as directed. Do not stop taking them just because you feel better. You need to take the full course of antibiotics. Get some extra rest. Take an hvtn-mmf-cupzdcn pain medicine, such as acetaminophen (Tylenol), ibuprofen (Advil, Motrin),or naproxen (Aleve) to reduce fever and relieve body aches. Read and follow all instructions on thelabel. Take an lvdr-yjc-kgtkfbh cough medicine that contains dextromethorphan to help quiet a dry, hackingcough so that you can sleep. Avoid cough medicines that have more than one active ingredient. Read and follow all instructions on the label. Breathe moist air from a humidifier, hot shower, or sink filled with hot water. The heat and moisture will thin mucus so you can cough it out. Do not smoke. Smoking can make bronchitis worse. If you need help quitting, talk to your doctor about stop-smoking programs and medicines. These can increase your chances of quitting for good. When should you call for help? Call 911 anytime you think you may need emergency care. For example, call if: ?? You have severe trouble breathing. Call your doctor now or seek immediate medical care if: ?? You have new or worsening shortness of breath. ?? You cough up blood. ?? You have new or increasing wheezing--a whistling sound when you breathe. ?? You have a cough that brings up yellow or green mucus (sputum) from the lungs and occurs along with a fever. Watch closely for changes in your health, and be sure to contact your doctor if: ?? You are not getting better after 3 to 5 days. Where can you learn more? Go to www.BYOM!.net/fahc Enter H333 in the search box to learn more about Bronchitis in Adults: After Your Visit. ?? [id number] [facility] [employer]. Care instructions adapted under license by [facility], [facility]. This care instruction is for use with your licensed healthcare professional. If you have questions about a medical condition or this instruction, always ask your healthcare professional. [facility] [employer] disclaims any warranty or liability for your use of this information. Content Version: 8.9.69316; Last Revised: January 15, 2009[facility] Patient Instructions Learning About Asthma Triggers What are triggers? When you have asthma, certain things can make your symptoms worse. These are called triggers. They include: ?? Cigarette smoke or air pollution. ?? Things you are allergic to, such as: ?? Pollen, mold, or dust mites. ?? Pet hair, skin, or saliva. ?? Illnesses, like colds, flu, or pneumonia. ?? Exercise. ?? Dry, cold air. How do triggers affect asthma? Triggers can make it harder for your lungs to work as they should and can lead to sudden difficultybreathing and other symptoms. When you are around a trigger, an asthma attack is more likely. If your symptoms are severe, you may need emergency treatment or have to go to the hospital for treatment. If you know what your triggers are and can avoid them, you may be able to prevent asthma attacks, reduce how often you have them, and make them less severe. What can you do to avoid triggers? The first thing is to know your triggers. When you are having symptoms, note the things around you that might be causing them. Then look for patterns in what may be triggering your symptoms. Record your triggers on a piece of paper or in an asthma diary. When you have your list of possible triggers, work with your doctor to find ways to avoid them. You also can check how well your lungs are working by measuring your peak expiratory flow (PEF) throughout the day. Your PEF may drop when you are near things that trigger symptoms. Here are some ways to avoid a few common triggers. ?? Do not smoke or allow others to smoke around you. If you need help quitting, talk to your doctorabout stop-smoking programs and medicines. These can increase your chances of quitting for good. ?? If there is a lot of pollution, pollen, or dust outside, stay at home and keep your windows closed. Use an air conditioner or air filter in your home. Check your local weather report or newspaper for air quality and pollen reports. ?? Get a flu shot every year. Talk to your doctor about getting a pneumococcal shot. Wash your hands often to prevent infections. ?? Avoid exercising outdoors in cold weather. If you are outdoors in cold weather, wear a scarf around your face and breathe through your nose. How can you manage an asthma attack? MARGIN-BOTTOM: 0mm If you have an asthma action plan, follow the plan. In general: PLMT-XLEYH-IRND: emmonak; MARGIN-BOTTOM: 0mm Use your quick-relief inhaler as directed by your doctor. If your symptoms do not get better after you use your medicine, have someone take you to the emergency room. Call an ambulance if needed. If your doctor has given you other inhaled medicines or steroid pills, take them as directed. Where can you learn more? Go to www.BYOM!.net/fahc Enter M564 in the search box to learn more about Learning About Asthma Triggers. ?? [id number] [employer]. Care instructions adapted under license by [facility] This care instruction is for use with your licensed healthcare professional. If you have questions about a medical condition or this instruction, always ask your healthcare professional. [employer] disclaims any warranty or liability for your use of this information. Content Version: 8.9.84717; Last Revised: December 15, 2009[facility] Patient Instructions Using a Metered-Dose Inhaler: After Your Visit Your Care Instructions A metered-dose inhaler lets you breathe medicine into your lungs quickly. Inhaled medicine works faster than the same medicine in a pill. An inhaler allows you to take less medicine than you would need if you took it as a pill. Metered-dose means that the inhaler gives a measured amount of medicine each time you use it. A metered-dose inhaler delivers medicine in the form of a liquid mist. Your doctor may want you to use a spacer with your inhaler. A spacer is a chamber that you attach to the inhaler. The chamber holds the medicine before you inhale it. That way, you can inhale the medicine in as many breaths as you need. Doctors recommend using a spacer with most metered-dose inhalers, especially those with corticosteroid medicines. Follow-up care is a john part of your treatment and safety. Be sure to make and go to all appointments, and call your doctor if you are having problems. It???s also a good idea to know your test results and keep a list of the medicines you take. How can you care for yourself at home? To get started using your inhaler ?? Talk with your doctor, respiratory therapist, or pharmacist to be sure you are using your inhaler the right way. It might help if you practice using it in front of a mirror. Use the inhaler exactly as prescribed. ?? Check that you have the correct medicine. If you use several inhalers, put a label on each one so that you know which one to use at the right time. ?? Keep track of how much medicine is in the inhaler. Check the label to see how many doses are in the container. If you know how many puffs you can take, you can replace the inhaler before you run out. Your doctor or pharmacist can teach you how to keep track of how much medicine is left. ?? Use a spacer if you have problems pressing the inhaler and breathing in at the same time. You also may need a spacer if you are using corticosteroid medicines. ?? If you are using a corticosteroid inhaler, gargle and rinse out your mouth with water after use.Do not swallow the water. Swallowing the water will increase the chance that the medicine will get into your bloodstream. This may make it more likely that you will have side effects from the medicine. To use a spacer with an inhaler ?? Shake the inhaler, remove the inhaler cap. and place the mouthpiece of the inhaler into the spacer. Check the inhaler instructions to see if you need to prime your inhaler before you use it. If itneeds priming, follow the instructions on how to prime your inhaler. ?? Place the mouthpiece of the inhaler into the spacer. ?? Remove the cap from the spacer. ?? Hold the inhaler upright with the mouthpiece at the bottom. ?? Tilt your head back a little, and breathe out slowly and completely. ?? Place the spacer???s mouthpiece in your mouth. ?? Press down on the inhaler to spray one puff of medicine into the spacer, and then start breathing in slowly. Wait to inhale until after you have pressed down on the inhaler. ?? Hold your breath for 10 seconds. This will let the medicine settle in your lungs. ?? If you need to take a second dose, wait 30 seconds to allow the inhaler valve to refill. To use an inhaler without a spacer ?? Shake the inhaler as directed, and remove the cap. Check the inhaler instructions to see if you need to prime your inhaler before you use it. If it needs priming, follow the instructions on how toprime your inhaler. ?? Hold the inhaler upright with the mouthpiece at the bottom. ?? Tilt your head back a little, and breathe out slowly and completely. ?? Position the inhaler in one of two ways: ?? You can place the inhaler 1 to 2 inches in front of your open mouth, without closing your lips over it. Try to open your mouth as wide as you can. Placing the inhaler in front of your open mouth may be better for getting the medicine into your lungs, but some people may find this too hard to do. ?? Or you can place the inhaler in your mouth. This is easier for most people and lowers the risk that any of the medicine will get into your eyes. ?? Start taking slow, even breaths through your mouth. Press down on the inhaler one time, then inhale fully. ?? Hold your breath for 10 seconds. This will let the medicine settle in your lungs. ?? If you need to take a second dose, wait 30 to 60 seconds to allow the inhaler valve to refill. Where can you learn more? Go to www.healthwise.net/fahc Enter K111 in the search box to learn more about Using a Metered-Dose Inhaler: After Your Visit. ?? [id number] [employer]. Care instructions adapted under license by [facility], [facility]. This care instruction is for use with your licensed healthcare professional. If you have questions about a medical condition or this instruction, always ask your healthcare professional. [employer] disclaims any warranty or liability for your use of this information. Content Version: 8.9.29794; Last Revised: March 27, 2010 documented in this encounter Ordered Prescriptions Prescription Sig Dispensed Refills Start Date End Da te albuterol (PROVENTIL HFA, VENTOLIN HFA) 90 mcg/actuation inhalerIndications:RAD (reactive airway disease) Inhale 2 Puffs as directed every 4 hours as needed for Wheezing. 1 Inhaler 2 11/29/2011 05/21/2013 azithromycin (ZITHROMAX) 250 mg tabletIndications:Bronch itis, acute Take 2 tablets (500 mg) on day 1, followed by 1 tablet (250 mg) once daily on days 2 through 5. 6 Tab 0 11/29/2011 06/14/2012 documented in this encounter Progress Notes * Jayashree Bruno MD - 11/29/2011 1018 EST Subjective: Patient ID: Doris Kerr is an 31 y.o. female. Chief Complaint Patient presents with ??? Cough For about 2 weeks, cant catch her breath, just seems to get worse. Cough is productive. 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 Had nasal congestion and ear pain last week but none today. NO fever. +h/o asthma - mild in past but none recently. PMH/PSH/Meds/All/FH/SH all reviewed and updated in prism. Lives with a 6 yo daughter who was also ill last week. Patient Active Problem List Diagnoses ??? Asthma ??? Contraceptive management ??? Dysplasia of cervix ??? Blindness ??? Acute pyelonephritis ??? Grave's disease ??? Hypertension ??? Other iatrogenic hypothyroidism Past Medical History Diagnosis Date ??? Meningitis 2003 Current Outpatient Prescriptions on File Prior to Visit Medication Sig Dispense Refill ??? thyroid (ARMOUR THYROID) 120 mg tablet Take 1 Tab by mouth daily. 30 Each 11 ??? lisinopril-hydrochlorothiazide (PRINZIDE, ZESTORETIC) 20-12.5 mg per tablet Take 1 Tab by mouthdaily. 90 Tab 3 ??? levonorgestrel-ethinyl estradiol (SEASONALE) 0.15-30 mg-mcg per tablet Take 1 Tab by mouth daily. Allergies Allergen Reactions ??? Penicillins ??? Propranolol ??? Sulfa(Sulfonamide Antibiotics) Social History Substance Use Topics ??? Smoking status: Never Smoker ??? Smokeless tobacco: Not on file ??? Alcohol Use: No ROS - See HPI Objective: BP 110/80 Pulse 88 Temp(Src) 37.1 ??C (98.8 ??F) (Tympanic) Resp 16 Wt 83.462 kg (184 lb) Physical Exam Constitutional: She is oriented to person, place, and time. She appears well- developed and well-nourished. HENT: Right Ear: External ear normal. Left Ear: External ear normal. Nose: Nose normal. Mouth/Throat: Oropharynx is clear and moist. Eyes: Conjunctivae are normal. Neck: Normal range of motion. Neck supple. Cardiovascular: Normal rate, regular rhythm and normal heart sounds. Pulmonary/Chest: Effort normal and breath sounds normal. Occasional scattered wheeze on expiration Neurological: She is alert and oriented to person, place, and time. Skin: Skin is warm. No rash noted. 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 Diagnoses and associated orders for this visit: Bronchitis, acute - azithromycin (ZITHROMAX) 250 mg tablet; Take 2 tablets (500 mg) on day 1, followed by 1 tablet (250 mg) once daily on days 2 through 5. Rest, fluids Rad (reactive airway disease) - albuterol (PROVENTIL HFA, VENTOLIN HFA) 90 mcg/actuation inhaler; Inhale 2 Puffs as directed every 4 hours as needed for Wheezing. F/u if no better or worse documented in this encounter Plan of Treatment Not on file documented as of this encounter Visit Diagnoses Diagnosis Bronchitis, acute Acute bronchitis RAD (reactive airway disease) Unspecified asthma documented in this encounter Care Teams Process Description Writer Relationship Specialty Start Date End Date Shannan Vieyra MD PCP - General 04/08/09 03/15/19 documented as of this encounter
--- OUTSIDE RECORDS SUMMARY | 2024-05-24 15:29 | XMS_ITS | Encounter Summary ---
Author Organization [facility] Address [address] [place] [address] Care Team Providers Care Telephone Quotation Clerk Name Role Phone Shannan Vieyra MD Primary Care Provider Unavail able Encounter Details Date Type Department Care Team (Late st Contact Info) Description 12/31/2009 8:08 EDT - 12/31/2009 23:59 EDT Hospital Encounter [facility] - Other [address] [place] [id number] Denice Martinez MD [address] [facility], [facility] [address] [place] [phone] Discharge Disposition: Home or Self Care Social [...] Sig Dispensed Refills Start Date End Date ALBUTEROL INHL Inhale 2 Puffs as directed. 02/13/2010 atenolol (TENORMIN) 50 mg tablet Take 50 mg by mouth 2 times daily. 01/16/2010 levonorgestrel-ethinyl estradiol (SEASONALE) 0.15-30 mg-mcg per tablet Take 1 Tab by mouth daily. 06/25/2020 levothyroxine (SYNTHROID) 100 mcg tablet Take 100 mcg by mouth daily. BRAND ONLY/DR. DESAI 11/06/2010 lisinopril-hydrochloroth iazide (PRINZIDE, ZESTORETIC) 20-12.5 mg per tabletIndications:Hypert ension Take 1 Tab by mouth daily. 90 Tab 3 11/14/2009 03/09/2011 documented as of this encounter Discharge Disposition Disposition Code Departure Means Destination Home or Self Care documented in this encounter Plan of Treatment Not on file documented as of this encounter Visit Diagnoses Not on filedocumented in this encounter Care Teams Telephone Quotation Clerk Relationship Specialty Start Date End Date Shannan Vieyra MD PCP - General 04/08/09 03/15/19 documented as of this encounter
--- OUTSIDE RECORDS SUMMARY | 2024-05-24 15:29 | XMS_ITS | Encounter Summary ---
Author Organization [facility] Address [address] [place] [address] Care Team Providers Care Behavioral Services Tech Name Role Phone Shannan Vieyra MD Primary Care Provider Unavail able Encounter Details Date Type Department Care Team (Late st Contact Info) Description 12/17/2009 Abstract [facility] Cardiology - [address] [place], [place] [phone] Shannan Vieyra MD Social History Tobacco Use Types Packs/Day Years [...] Sig Dispensed Refills Start Date End Date atenolol (TENORMIN) 50 mg tablet Take 50 mg by mouth 2 times daily. 01/16/2010 added in this encounter Care Teams Behavioral Services Tech Relationship Specialty Start Date End Date Shannan Vieyra MD PCP - General 04/08/09 03/15/19 documented as of this encounter
--- OUTSIDE RECORDS SUMMARY | 2024-05-24 15:29 | XMS_ITS | Encounter Summary ---
Author Organization [facility] Address [address] [place] [address] Care Team Providers Care Fur Trapper Name Role Phone Shannan Vieyra MD Primary Care Provider Unavail able Reason for Visit * Reason Onset Date Comments Abdominal Pain 03/08/2013 Encounter Details Date Type Department Care Team (Late st Contact Info) Description 03/08/2013 Telephone [facility] Family Medicine - [address] [phone] Maria Guadalupe Wolfe MD [address] [place] [phone] Abdominal Pain Social History Tobacco Use Types Packs/Day Years Used Date Smoking Tobacco: Never Alcohol Use Standard Drinks/Week Comments No 0 (1 standard drink = 0.6 oz pur e alcohol) Sex and Gender Information Value Date Recorded Sex Assigned at Not on file Gender Identity Not on file Sexual Orientation Not on file documented as of this encounter Miscellaneous Notes * Telephone Encounter - Maria Guadalupe Wolfe MD - 03/08/2013 0458 EDT CC: abdominal pain S: Pt calls to discuss abdominal pain that has developed in the last two hours. Severe pain on leftside of her abdomen. In left upper quadrant and under her ribs. Radiating to the back. Pain is constat Had a similar pain a couple of months ago, thought is was from bad food. Ate salad for dinner (five hours ago). No fever, no nausea, no emesis, no diarrhea or constipation, breathing okay, no chest pain. Has gallbladder, known gallstones- found then previously when did a scan years ago. Never had a problem before. Took ibuprofen- 30 min ago with no effect. Two glasses of wine tonight, but could tell me the last time she had a drink prior to that previously. PMHx: none significant- HTN, Hypothyroidism, contraception PSHx: c/s Allg: Penicillin, sulfa Meds: OCP, armour, HCTZ, lisinopril Exam: - pt taking shallow breaths, occasionally pausing during conversation. Appears to be in pain over the phone Imaging: RIGHT UPPER QUADRANT ULTRASOUND: 02/25/05 Scans of the right upper quadrant are performed and compared with the prior study of 06/06/04. The liver, once again, appears normal and is normal-sized. Thegallbladder is moderately distended and contains multiple stones, similar in appearance to the previous study, the largest stone being about 1.1cm in diameter. No gallbladder wall thickening or pericholecystic fluid. No biliary ductal dilatation. The common hepatic duct measures 2.4mm in diameter. echocardiac activity was incidentally noted in the patient's . A/P: Doris Kerr is a 33y F with known cholelithiasis who calls with acute onset of severe LUQ abdominal pain radiating to the back concerning for possible pancreatitis. Most likely cause would be gallstone pancreatitis, but pt have 2 glasses of wine tonight which is abnormal for her. DDx: could also include dyspepsia or heartburn although less likely based on the severity of the pain. Could also consider PE (risk factor- on OCPs) and ACS (unlikely in this young female without significant riskfactors). Will refer to the ED at this time for further evaluation. Maria Guadalupe Wolfe M.D. Family Medicine, PGY-II [phone] documented in this encounter Plan of Treatment Not on file documented as of this encounter Visit Diagnoses Not on filedocumented in this encounter Care Teams Fur Trapper Relationship Specialty Start Date End Date Shannan Vieyra MD PCP - General 04/08/09 03/15/19 documented as of this encounter
--- OUTSIDE RECORDS SUMMARY | 2024-05-24 15:29 | XMS_ITS | Encounter Summary ---
Author Organization [facility] Address [address] [place] [address] Care Team Providers Care Business Executive Name Role Phone Unavailable Primary Care Provider Unavailabl e Encounter Details Date Type Department Care Team (Late st Contact Info) Description 10/15/2008 15:58 EST Hospital Encounter [address] [phone] Judith Ballard MBBS MPH [address] [place] [address], [address] [place] [phone] Social History Tobacco Use Types Packs/Day Years Used Date Smoking Tobacco: Never Smokeless Tobacco: Never Alcohol Use Standard Drinks/Week Comments No 0 (1 standard drink = 0.6 oz pur e alcohol) [facility] Utilities Answer Date Recorded In the past 12 months has [employer] electric, gas, oil, or water company threatened [...] place to sleep or slept in a halfway (including now)? No 10/28/2023 Interpersonal Safety Answer [...]
--- OUTSIDE RECORDS SUMMARY | 2024-05-24 15:29 | XMS_ITS | Encounter Summary ---
Author Organization [facility] Address [address] [place] [address] Care Team Providers Care Executive Assistant To President Name Role Phone Shannan Vieyra MD Primary Care Provider Unavail able Reason for Visit * Reason Comments Graves' Disease Encounter Details Date Type Department Care Team (Latest Contact Info) Description 02/08/2011 13:30 EDT Office Visit [facility] Endocrinology - [facility] [address] [place] [address] Juan Pablo Toth MD [address] [facility] [address] [place] [address] Other postablative hypothyroidism (Primary Dx) [...] Sign Reading Time Taken Comments Blood Pressure 122/70 02/08/2011 1338 EDT Pulse 80 02/08/2011 1338 EDT Temperature - - Respiratory Rate - - Oxygen Saturation - - Inhaled Oxygen Concentration - - Weight 85.6 kg (188 lb 12.8 oz) 02/08/2011 1338 EDT Height 162.6 cm (5' 4) 02/08/2011 1338 EDT Body Mass Index 32.41 02/08/2011 1338 EDT documented in this encounter Ordered Prescriptions Prescription Sig Dispensed Refills Start Date End Da te SYNTHROID 100 mcg tablet Take 1 Tab by mouth daily. NEEDS BRAND NAME FOR PROPER ABSORPTION 100 Tab 4 02/08/2011 02/09/2011 documented in this encounter Progress Notes * Juan Pablo Toth MD - 02/08/2011 1343 EDT Endocrinology Follow-Up Thyroid Evaluation 02/08/2011 SUBJECTIVE: Doris Kerr is a 31 y.o. female who presents for follow-up of: 1. 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 She was treated with 10 mCi in 10/2007 and becamehypothyroid. She has been on 100 mcg of thyroid hormone replacement since. HOWEVER SHE HAS NOT TAKEN MEDS FOR 2 DAYS - ran out !!!!! (should not impact much on TFTs Doris Kerr reports the following:HUGE AMT of WT gain since thyroid ablation despite nl FT4 and in fact low TSH !!!!!! SYMPTOM YES or NO Excess perspiration No control No Changes in vision No Choking sensation No Cold intolerance No Constipation No Cough No Depression No Diarrhea No Difficulty swallowing No Double vision No Dry skin No Emotional lability No Enlargement of neck No Exophthalmos No Eye pain No Family plans - desirous of in near future No Fatigue No Hair loss No Headache No Heat intolerance No Hoarseness Hyperness No Increased appetite No Increased stool frequency No Irritability No Jitteriness No Menses: normal No Neck pain No Palpitations Since childhood - w/u by cards in past Photophobia No Poor eating No Poor handwriting No Poor sleeping No Puffy eyes No Restleness No Sterilized No Tachycardia No Tremor No Weight gain 32 # in 2 years !!!!!! Weigh loss No OBJECTIVE: BP 122/70 Pulse 80 Ht 162.6 cm (64) Wt 85.639 kg (188 lb 12.8 oz) BMI 32.41 kg/m2 General: alert, cooperative, no distress Eyes: no lid lag, periorbital edema, stare, proptosis or exophthalamus. EOM full. Neck: supple, symmetrical, trachea midline, no adenopathy and abnormal thyroid: non-palpable Thyroid: no palpable nodule Extremities: extremities warm, atraumatic, no cyanosis or edema positive pulses bilat Skin: smooth, warm and dry Neuro: reflexes normal with no hung-up relaxation phase no tremors DTRs hard to elicite LAB REVIEW: Results for DORIS KERR ( ) as of 02/08/2011 13:42 Ref. Range 12/04/2007 12:09 12/27/2007 14:34 02/06/2008 12:07 04/15/2008 11:26 06/02/2009 15:57 01/16/2010 15:50 T3, Total Latest Range: 60-181 ng/dL 98 87 Free T4 Latest Range: 0.8-1.8 ng/dL 4.1 (H) 0.8 0.7 (L) 1.5 1.4 1.4 TSH Latest Range: 0.35-5.00 uIU/ml <0.02 (L) <0.02 (L) 7.93 (H) <0.02 (L) <0.02 (L) <0.02 (L) ASSESSMENT: 1. 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 Labs: TSH, triiodothyronine free and free thyroxine 2. Medications: Synthroid (DOUG ) 100 - low for WT ( even at former 156# ) but TSH already low and she already has palpitations 3. The risks and benefits of my recommendations, as well as other treatment options were discussed with the patient today. Questions were answered. 4. Follow up: 1 year and as needed. Juan Pablo Toth MD 02/08/2011 13:43 documented in this encounter Plan of Treatment Not on file documented as of this encounter Results * T3 FREE (02/08/2011 14:07 EDT) T3, Free 2.3 2.3 - 4.2 pg/mL [facility] Blood specimen (specimen) 02/08/2011 14:07 EDT 02/08/2011 14:09 EDT Juan Pablo Toth MD CHEMISTRY & BLOOD GAS ORDERABLES [facility] [address] [place] [address] * TSH (02/08/2011 14:07 EDT) TSH 1.21 0.35 - 5.00 uIU/ml [facility] Blood specimen (specimen) 02/08/2011 14:07 EDT 02/08/2011 14:09 EDT Juan Pablo Toth MD CHEMISTRY & BLOOD GAS ORDERABLES Performing Organization Address [facility] de Phone Number [facility] [address] [place] [address] * T4 FREE (02/08/2011 14:07 EDT) Free T4 0.8 0.8 - 1.8 ng/dL [facility] Blood specimen (specimen) 02/08/2011 14:07 EDT 02/08/2011 14:09 EDT Juan Pablo Toth MD CHEMISTRY & BLOOD GAS ORDERABLES Performing Organization Address [facility] Phone Number [facility] [address] [place] [address] documented in this encounter Visit Diagnoses Diagnosis Other postablative hypothyroidism- Primary documented in this encounter Discontinued Medications Medication Sig Discontinue Reason Start Date End Da te albuterol (PROVENTIL HFA, VENTOLIN HFA) 90 mcg/Actuation inhalerIndications:Co ugh Inhale 2 Puffs as directed every 4 hours as needed for Wheezing. Patient Stopped Taking 02/13/2010 02/08/2011 atenolol (TENORMIN) 100 mg tablet Take 100 mg by mouth daily. Therapy completed 02/08/2011 azithromycin (ZITHROMAX) 250 mg tabletIndications:Cou gh Take 1 Tab by mouth. Take 2 tablets (500 mg) on Day 1, followed by 1 tablet (250 mg) once daily on Days 2 through 5. Therapy completed 02/13/2010 02/08/2011 chlorpheniramine-hydr ocodone (TUSSIONEX) 8-10 mg/5 mL suspensionIndications :Cough Take 5 mL by mouth every 12 hours as needed for Cough. Therapy completed 02/13/2010 02/08/2011 Codeine-Guaifenesin 10-200 mg/5 mL LiqdIndications:Cough Take 5 mL by mouth every 4 hours as needed for Other. cough Therapy completed 02/13/2010 02/08/2011 hydrochlorothiazide (HYDRODIURIL) 12.5 mg tablet Take 12.5 mg by mouth daily. Duplicate Therapy 02/08/2011 SYNTHROID 100 mcg tablet Take 1 Tab by mouth daily. BRAND ONLY/DR. DEASI needs to make an appointment 11/06/2010 02/08/2011 documented as of this encounter Care Teams Executive Assistant To President Relationship Specialty Start Date End Date Shannan Vieyra MD PCP - General 04/08/09 03/15/19 documented as of this encounter
--- OUTSIDE RECORDS SUMMARY | 2024-05-24 15:29 | XMS_ITS | Encounter Summary ---
Author Organization [facility] Address [address] [place] [address] Care Team Providers Care Steel Fitter Name Role Phone Shannan Vieyra MD Primary Care Provider Unavail able Reason for Visit * Reason Onset Date Comments Urinary Tract Infection 12/04/2010 Encounter Details Date Type Department Care Team (Late st Contact Info) Description 12/04/[address] [phone] Shannan Vieyra MD Urinary Tract Infection Social History Tobacco Use Types Packs/Day Years [...] Dispensed Refills Start Date End Da te nitrofurantoin, macrocrystal-monohydrate, (MACROBID) 100 mg capsule Take 1 Cap by mouth 2 times daily for 7 days. 14 Cap 0 12/04/2010 12/11/2010 documented in this encounter Miscellaneous Notes * Telephone Encounter - Shannan Vieyra MD - 12/04/2010 1731 EST Agree. * Telephone Encounter - Tracy Ac RN - 12/04/2010 172 EST Phone call to Doris Will treat this as an acute UTI and call medication into her pharmacy in [place]. (she is vacationing) with approval from Dr. Vieyra. If she develops fever, vomiting or worsening flank pain within 24 hours she will be seen in [place]. She will continue to push fluids. Doris verbalizes understanding and there are no barriers. Urinary s/s 1) Freq/ Urgency --Yes 2)Pain/burning-NO 3)scanty stream--No 4)red/brown color--NO 5)previous uti w same s/s--yes gets these all the time Risk Factors: 1. Fever-No 2. History or symptoms of stones--No 3. Symptoms >7 days--1 day 4. Diabetes--No 5. Abnormal urinary tract anatomy--No 6. Urologic surgical history-No 7. -No 8. Immunocompromised-No 9. Flank or back pain-Yes (right) * Telephone Encounter - Samanta Valles - 12/04/2010 1644 EST SHE IS ON VAC IN [place]. HAS A UTI. WOULD LIKE TO HAVE SOME MEDS CALLED IN FOR IT. documented in this encounter Plan of Treatment Not on file documented as of this encounter Visit Diagnoses Not on filedocumented in this encounter Care Teams Steel Fitter Relationship Specialty Start Date End Date Shannan Vieyra MD PCP - General 04/08/09 03/15/19 documented as of this encounter
--- OUTSIDE RECORDS SUMMARY | 2024-05-24 15:29 | XMS_ITS | Encounter Summary ---
Author Organization [facility] Address [address] [place] [address] Care Team Providers Care Photocopying Machine Operator Name Role Phone Shannan Vieyra MD Primary Care Provider Unavail able Reason for Visit * Reason Onset Date Comments Other 04/13/2011 Medication Management 04/13/2011 Encounter Details Date Type Department Care Team (Late st Contact Info) Description 04/13/2011 Telephone [facility] Endocrinology - [facility] [address] [place] [address] Juan Pablo Toth MD [address] [facility] [address] [place] [address] Other; Medication Management Social History Tobacco Use Types [...] * Telephone Encounter - Madan Jiang - 04/15/2011 1338 EDT Pt switching to [place] thyroid [address] Toth. Pt called message left about med switch and to get repeat labs in 6 weeks. MADAN JIANG RN * Telephone Encounter - Madan Jiang - 04/14/2011 0934 EDT Called pt She is aware of labs Would like to switch to [place] thyroid. MADAN JIANG RN * Telephone Encounter - Clarice Salazar - 04/13/2011 1036 EDT Pt has yet to hear from , states it has been over two weeks. Regarding labs. documented in this encounter Plan of Treatment Not on file documented as of this encounter Visit Diagnoses Not on filedocumented in this encounter Care Teams Photocopying Machine Operator Relationship Specialty Start Date End Date Shannan Vieyra MD PCP - General 04/08/09 03/15/19 documented as of this encounter
--- OUTSIDE RECORDS SUMMARY | 2024-05-24 15:29 | XMS_ITS | Encounter Summary ---
Author Organization [facility] Address [address] [place] [address] Care Team Providers Care Head Of Human Resources Name Role Phone Unavailable Primary Care Provider Unavailabl e Encounter Details Date Type Department Care Team (Late st Contact Info) Description 02/06/2008 11:27 EDT Hospital Encounter [facility] - [facility] [address] [place] [address] Juan Pablo Toth MD [facility] [address] [place] [phone] Social History Tobacco Use Types Packs/Day Years Used Date Smoking Tobacco: Never Smokeless Tobacco: Never Alcohol Use Standard Drinks/Week Comments No 0 (1 standard drink = 0.6 oz pur e alcohol) [facility] Utilities Answer Date Recorded In the past 12 months has [facility] electric, gas, oil, or water company threatened [...]
--- OUTSIDE RECORDS SUMMARY | 2024-05-24 15:29 | XMS_ITS | Encounter Summary ---
Author Organization [facility] Address [address] [place] [address] Care Team Providers Care Candy Spreader Name Role Phone Unavailable Primary Care Provider Unavailabl e Encounter Details Date Type Department Care Team (Late st Contact Info) Description 04/15/2008 10:55 EDT Hospital Encounter [facility] - [facility] [address] [place] [address] Juan Pablo Toth MD [facility] [address] [place] [phone] Social History Tobacco Use Types Packs/Day Years Used Date Smoking Tobacco: Never Smokeless Tobacco: Never Alcohol Use Standard Drinks/Week Comments No 0 (1 standard drink = 0.6 oz pur e alcohol) [facility] Utilities Answer Date Recorded In the past 12 months has [facility] electric, gas, oil, or water company threatened [...] place to sleep or slept in a fci (including now)? No 10/28/2023 Interpersonal Safety Answer [...] Procedure Name Priority Date/Time Associated Diagnosis Comments CYTOPATHOLOGY Routine 07/01/2008 0:00 EDT TSH Routine 04/15/2008 11:26 EDT T4 FREE Routine 04/15/2008 11:26 EDT documented in this encounter Results * CYTOPATHOLOGY (07/01/2008 0:00 EDT) Pathology Report: CYTOPATHOLOGY REPORT ? Reports generated via electronic interface contain original data; ? however they are lacking the format of the original report. ? Caution should be taken when reading/interpreti ng unformatted reports. ? Name: ? DORIS KERR ? Accession #: ? [id number] ? : ? 1980 (Age: 28) ??F ?Collect Date: ? 07/01/2008 ? Location: ? [facility] ? Receive Date: ? 07/02/2008 ? Provider: ?JULITA MARTINEZ MD ? Copy to: ? Specimen/Source: ?ThinPrep Pap Test, Cervix/Endocervix, processed on [employer] ThinPrep Imaging System, with manual evaluation ? Last Menstrual Period: ? 8/4/08 ? Hormonal/Contracep tive Status: ? Yes: Seasonale ? Other: ? HPVA - HPV testing requested if ASC-US on the current ThinPrep Pap test. ? SPECIMEN ADEQUACY ? Satisfactory for Evaluation ? - transformation zone component present ? GENERAL CATEGORIZATION ? Negative for Intraepithelial Lesion or Malignancy ? Document reviewed and electronically signed by: ? Jolynn Hendricks, CT(ASCP) ? Report Date: ??07/04/2008 09:35 ? End of Report ? [facility] 07/01/2008 07/02/2008 Julita Martinez MD PATHOLOGY ORDERABLES Performing Organization Address [facility] de Phone Number [facility] [address] [place] [address] * (ABNORMAL) TSH (04/15/2008 11:26 EDT) TSH <0.02(L) 0.35 - 5.00 uIU/mL [facility] Comment:Sample retested, res ult confirmed 04/15/2008 11:2 6 EDT 04/15/2008 11:27 EDT Juan Pablo Toth MD CHEMISTRY & BLOOD GAS ORDERABLES Performing Organization Address [facility] de Phone Number [facility] [address] [place] [address] * T4 FREE (04/15/2008 11:26 EDT) Free T4 1.5 0.8 - 1.8 ng/dL [facility] 04/15/2008 11:2 6 EDT 04/15/2008 11:27 EDT Juan Pablo Toth MD CHEMISTRY & BLOOD GAS ORDERABLES Performing Organization Address City/State/[facility] Co de Phone Number [facility] [address] [place] [address] documented in this encounter Visit Diagnoses Not on filedocumented in this encounter
--- OUTSIDE RECORDS SUMMARY | 2024-05-24 15:29 | XMS_ITS | Encounter Summary ---
Author Organization [facility] Address [address] [place] [address] Care Team Providers Care Meter Tester Primary Name Role Phone Shannan Vieyra MD Primary Care Provider Unavail able Encounter Details Date Type Department Care Team (Late st Contact Info) Description 04/15/2011 Orders Only [facility] Endocrinology - [address] [address] Deana Jiang RN Grave's disease (Primary Dx) Social History Tobacco [...] Date End Da te thyroid (ARMOUR THYROID) 120 mg tablet Take 1 Tab by mouth daily. 30 Each 04/15/2011 06/14/2012 documented in this encounter Plan of Treatment Not on file documented as of this encounter Results * (ABNORMAL) TSH (05/31/2011 15:42 EDT) TSH <0.02(L) 0.35 - 5.00 uIU/ml [facility] Blood specimen (specimen) 05/31/2011 15:42 EDT 05/31/2011 16:51 EDT Juan Pablo Toth MD CHEMISTRY & BLOOD GAS ORDERABLES [facility] [address] [place] [address] * (ABNORMAL) T3, TOTAL (05/31/2011 15:42 EDT) T3, Total 213(H) 60 - 181 ng/dL [facility] Blood specimen (specimen) 05/31/2011 15:42 EDT 05/31/2011 16:51 EDT Juan Pablo Toth MD CHEMISTRY & BLOOD GAS ORDERABLES Performing Organization Address [facility] de Phone Number [facility] [address] [place] [address] * T4 FREE (05/31/2011 15:42 EDT) Free T4 1.5 0.8 - 1.8 ng/dL [facility] Blood specimen (specimen) 05/31/2011 15:42 EDT 05/31/2011 16:51 EDT Juan Pablo Toth MD CHEMISTRY & BLOOD GAS ORDERABLES Performing Organization Address [facility] Phone Number [facility] [address] [place] [address] documented in this encounter Visit Diagnoses Diagnosis 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 NEEDS BRAND NAME FOR PROPER ABSORPTION 02/09/2011 04/15/2011 documented as of this encounter Care Teams Meter Tester Primary Relationship Specialty Start Date End Date Shannan Vieyra MD PCP - General 04/08/09 03/15/19 documented as of this encounter
--- OUTSIDE RECORDS SUMMARY | 2024-05-24 15:29 | XMS_ITS | Encounter Summary ---
Author Organization [facility] Address [address] [place] [address] Care Team Providers Care Tie Mill Operator Name Role Phone Shannan Vieyra MD Primary Care Provider Unavail able Encounter Details Date Type Department Care Team (Late st Contact Info) Description 11/12/[address] [address] Shannan Vieyra MD Asthma; Contraceptive management; Hypothyroidism; Dysplasia of cervix; Blindness; Acute pyelonephritis Social History Tobacco Use Types Packs/Day Years Used Date Smoking Tobacco: Never Assessed Sex and Gender Information Value Date Recorded Sex Assigned at Not on file Gender Identity Not on file Sexual Orientation Not on file documented as of this encounter Plan of Treatment Not on file documented as of this encounter Visit Diagnoses Diagnosis Asthma Unspecified asthma Contraceptive management Unspecified contraceptive management Hypothyroidism Unspecified hypothyroidism Dysplasia of cervix Dysplasia of cervix, unspecified Blindness Blindness of both eyes, impairment level not further specified Acute pyelonephritis Acute pyelonephritis without lesion of renal medullary necrosis documented in this encounter Historical Medications * This list may reflect changes made after this encounter. Medication Sig Dispensed Refills Start Date End Date ALBUTEROL INHL Inhale 2 Puffs as directed. 02/13/2010 levonorgestrel-ethinyl estradiol (SEASONALE) 0.15-30 mg-mcg per tablet Take 1 Tab by mouth daily. 06/25/2020 methimazole (TAPAZOLE) 10 mg tablet Take 10 mg by mouth 4 times daily. 11/14/2009 atenolol (TENORMIN) 25 mg tablet Take 8 Tabs by mouth daily. (200 mg) 11/14/2009 added in this encounter Care Teams Tie Mill Operator Relationship Specialty Start Date End Date Shannan Vieyra MD PCP - General 04/08/09 03/15/19 documented as of this encounter
--- OUTSIDE RECORDS SUMMARY | 2024-05-24 15:29 | XMS_ITS | Encounter Summary ---
Author Organization [facility] Address [address] [place] [address] Care Team Providers Care Beamer Operator Name Role Phone Shannan Vieyra MD Primary Care Provider Unavail able Encounter Details Date Type Department Care Team (Late st Contact Info) Description 02/06/2008 Results Only [facility] Endocrinology - [facility] [address] [place] [address] Juan Pablo Toth MD [address] [facility] [address] [place] [address] Social History Tobacco Use Types [...] Date/Time Associated Diagnosis Comments T3, TOTAL Routine 02/06/2008 12:07 EDT TSH Routine 02/06/2008 12:07 EDT T4 FREE Routine 02/06/2008 12:07 EDT documented in this encounter Results * (ABNORMAL) TSH (02/06/2008 12:07 EDT) TSH 7.93(H) 0.35 - 5.00 uIU/mL [facility] 02/06/2008 12:0 7 EDT 02/06/2008 12:08 EDT Juan Pablo Toth MD CHEMISTRY & BLOOD GAS ORDERABLES Performing Organization Address [facility] Co de Phone Number [facility] [address] [place] [address] * T3, TOTAL (02/06/2008 12:07 EDT) T3, Total 87 60 - 181 ng/dL [facility] 02/06/2008 12:0 7 EDT 02/06/2008 12:08 EDT Juan Pablo Toth MD CHEMISTRY & BLOOD GAS ORDERABLES Performing Organization Address [facility] de Phone Number [facility] [address] [place] [address] * (ABNORMAL) T4 FREE (02/06/2008 12:07 EDT) Free T4 0.7(L) 0.8 - 1.8 ng/dL [facility] 02/06/2008 12:0 7 EDT 02/06/2008 12:08 EDT Juan Pablo Toth MD CHEMISTRY & BLOOD GAS ORDERABLES Performing Organization Address [facility] de Phone Number [facility] [address] [place] [address] documented in this encounter Visit Diagnoses Not on filedocumented in this encounter Care Teams Beamer Operator Relationship Specialty Start Date End Date Shannan Vieyra MD PCP - General 04/08/09 03/15/19 documented as of this encounter
--- OUTSIDE RECORDS SUMMARY | 2024-05-24 15:29 | XMS_ITS | Encounter Summary ---
Author Organization [facility] Address [address] [place] [address] Care Team Providers Care Wheel Presser Name Role Phone Shannan Vieyra MD Primary Care Provider Unavail able Reason for Visit * Reason Comments Hypertension FOLLOW UP Encounter Details Date Type Department Care Team (Late st Contact Info) Description 11/14/2009 16:00 EST Office Visit [facility] Family Medicine [place] [id number] Leida Cerda PA-C [address] [place] [address] [address] [place], [place] [address] Hypertension (Primary Dx); Grave's disease; Asthma Social History Tobacco Use Types Packs/Day Years [...] Reading Time Taken Comments Blood Pressure 132/90 11/14/2009 1652 EST Pulse 72 11/14/2009 1610 EST Temperature - - Respiratory Rate 16 11/14/2009 1610 EST Oxygen Saturation - - Inhaled Oxygen Concentration - - Weight 81.6 kg (180 lb) 11/14/2009 1610 EST Height - - Body Mass Index - - documented in this encounter Ordered Prescriptions Prescription Sig Dispensed Refills Start Date End Da te lisinopril-hydrochlorothia zide (PRINZIDE, ZESTORETIC) 20-12.5 mg per tabletIndications:Hyperten merrill Take 1 Tab by mouth daily. 90 Tab 3 11/14/2009 03/09/2011 documented in this encounter Progress Notes * Leida Cerda PA - 11/14/2009 1708 EST Subjective: Patient here for follow-up of hypertension. She is adherent to low salt diet. Blood pressure is notwell controlled at home. S/p ablation Had eval thru nephrology Grave's disease followed by endocrine Non smoker Current outpatient prescriptions Medication Sig Dispense Refill ??? levothyroxine (SYNTHROID) 100 mcg tablet Take 100 mcg by mouth daily. BRAND ONLY/DR. DESAI ??? levonorgestrel-ethinyl estradiol (SEASONALE) 0.15-30 mg-mcg per tablet Take 1 Tab by mouth daily. ??? ALBUTEROL INHL Inhale 2 Puffs as directed. ??? lisinopril-hydrochlorothiazide (PRINZIDE, ZESTORETIC) 20-12.5 mg per tablet Take 1 Tab by mouthdaily. 90 Tab 3 Review of Systems Cardiovascular: positive for lower extremity edema, tachycardia episodes, worse with certain types of exercise Objective: BP 132/90 Pulse 72 Resp 16 Wt 81.647 kg (180 lb) General : alert, cooperative, no distress Lung: clear to auscultation bilaterally Heart: regular rate and rhythm, S1, S2 normal, no murmur, click, rub or gallop Extremities: Edema: trace Assessment: Hypertension, not adequately controlled . Plan: Doris was seen today for hypertension. Diagnoses and associated orders for this visit: - Hypertension - Comprehensive metabolic panel - Lisinopril-hydrochlorothiazide 20 mg-12.5 mg tab -- Take 1 Tab by mouth daily. - Grave's disease - No associated orders - Asthma - No associated orders Increase meds as above monitor home BP F/u 2 mo Patient Education Topic: Method: Verbal Taught to: Patient Barriers: None Outcomes: verbalized understanding Signature: documented in this encounter Plan of Treatment Not on file documented as of this encounter Procedures Procedure Name Priority Date/Time Associated Diagnosis Comments COMPREHENSIVE METABOLIC PANEL (CMP) Routine 11/14/2009 16:49 EST Hypertension documented in this encounter Results * COMPREHENSIVE METABOLIC PANEL (11/14/2009 16:49 EST) Potassium 4.6 3.5 - 5.0 mEq/L [facility] Sodium 140 136 - 145 mEq/L [facility] Chloride 106 96 - 110 mEq/L [facility] CO2 26 24 - 32 mEq/L [facility] Alkaline Phosphatase 76 38 - 126 U/L [facility] Bilirubin, Total <0.5 0.2 - 1.3 mg/dl [facility] AST 18 15 - 46 U/L [facility] ALT 26 9 - 52 U/L [facility] Albumin 4.2 3.4 - 4.9 g/dl [facility] Total Protein 8.1 6.5 - 8.3 g/dl [facility] Creatinine 0.75 0.7 - 1.5 mg/dl [facility] GFR, Calculated >60 ml/min/1.7 3m2 [facility] BUN 16 10 - 26 mg/dl [facility] Calcium 9.5 8.5 - 10.5 mg/dl [facility] Calculated Calcium 9.7 8.5 - 10.5 mg/dl [facility] Glucose, Serum 82 70 - 100 mg/dl [facility] Fasting? No [facility] Blood specimen (specimen) 11/14/2009 16:49 EST 11/14/2009 18:16 EST Leida Cerda PA-C CHEMISTRY & BLOOD GAS ORDERABLES [facility] [address] [place] [address] documented in this encounter Visit Diagnoses Diagnosis Hypertension- Primary Unspecified essential hypertension Grave's disease Toxic diffuse goiter without mention of thyrotoxic crisis or storm Asthma Unspecified asthma documented in this encounter Discontinued Medications Medication Sig Discontinue Reason Start Date End Da te atenolol (TENORMIN) 25 mg tablet Take 8 Tabs by mouth daily. (200 mg) Therapy completed 11/14/2009 methimazole (TAPAZOLE) 10 mg tablet Take 10 mg by mouth 4 times daily. Alternate therapy 11/14/2009 lisinopril-hydrochlorothi azide (PRINZIDE, ZESTORETIC) 10-12.5 mg per tablet Take 1 Tab by mouth daily. 11/14/2009 documented as of this encounter Historical Medications * This list may reflect changes made after this encounter. Medication Sig Dispensed Refills Start Date End Date lisinopril-hydrochloroth iazide (PRINZIDE, ZESTORETIC) 10-12.5 mg per tablet Take 1 Tab by mouth daily. 11/14/2009 levothyroxine (SYNTHROID) 100 mcg tablet Take 100 mcg by mouth daily. BRAND ONLY/DR. DESAI 11/06/2010 added in this encounter Care Teams Wheel Presser Relationship Specialty Start Date End Date hSannan Vieyra MD PCP - General 04/08/09 03/15/19 documented as of this encounter
--- OUTSIDE RECORDS SUMMARY | 2024-05-24 15:29 | XMS_ITS | Encounter Summary ---
Author Organization [facility] Address [address] [place] [address] Care Team Providers Care Dry Food Products Mixer Name Role Phone Shannan Vieyra MD Primary Care Provider Unavail able Encounter Details Date Type Department Care Team (Late st Contact Info) Description 05/31/2011 Phlebotomy Only [address] [address] Building Analyst/Supervisor, Outpatient Grave's disease Social History Tobacco Use Types [...] Date/Time Associated Diagnosis Comments T3, TOTAL Routine 05/31/2011 15:42 EDT Grave's disease TSH Routine 05/31/2011 15:42 EDT Grave's disease T4 FREE Routine 05/31/2011 15:42 EDT Grave's disease documented in this encounter Results * (ABNORMAL) TSH (05/31/2011 15:42 EDT) TSH <0.02(L) 0.35 - 5.00 uIU/ml [facility] Blood specimen (specimen) 05/31/2011 15:42 EDT 05/31/2011 16:51 EDT Juan Pablo Toth MD CHEMISTRY & BLOOD GAS ORDERABLES Performing Organization Address [facility] Co de Phone Number [facility] [address] [place] [address] * (ABNORMAL) T3, TOTAL (05/31/2011 15:42 EDT) T3, Total 213(H) 60 - 181 ng/dL [facility] Blood specimen (specimen) 05/31/2011 15:42 EDT 05/31/2011 16:51 EDT Juan Pablo Toth MD CHEMISTRY & BLOOD GAS ORDERABLES Performing Organization Address [facility] de Phone Number [facility] [address] [place] [address] * T4 FREE (05/31/2011 15:42 EDT) Free T4 1.5 0.8 - 1.8 ng/dL [facility] Blood specimen (specimen) 05/31/2011 15:42 EDT 05/31/2011 16:51 EDT Juan Pablo Toth MD CHEMISTRY & BLOOD GAS ORDERABLES Performing Organization Address [facility] de Phone Number [facility] [address] [place] [address] documented in this encounter Visit Diagnoses Diagnosis Grave's disease Toxic diffuse goiter without mention of thyrotoxic crisis or storm documented in this encounter Care Teams Dry Food Products Mixer Relationship Specialty Start Date End Date Shannan Vieyra MD PCP - General 04/08/09 03/15/19 documented as of this encounter
--- OUTSIDE RECORDS SUMMARY | 2024-05-24 15:29 | XMS_ITS | Encounter Summary ---
Author Organization [facility] Address [address] [place] [address] Care Team Providers Care Horse Show Manager Name Role Phone Shannan Vieyra MD Primary Care Provider Unavail able Reason for Visit * Reason Comments Hypertension BP check Encounter Details Date Type Department Care Team (Late st Contact Info) Description 03/09/2011 9:30 EDT Office Visit [facility] Family Medicine [place] [id number] Leida Man PA-C [address] [id number] Hypertension; Fatigue; Myalgia; Vitamin D deficiency Social History Tobacco Use [...] Sign Reading Time Taken Comments Blood Pressure 118/92 03/09/2011 0953 EDT Pulse 100 03/09/2011 0953 EDT Temperature - - Respiratory Rate - - Oxygen Saturation - - Inhaled Oxygen Concentration - - Weight 82.6 kg (182 lb) 03/09/2011 0953 EDT Height - - Body Mass Index 31.24 02/08/2011 1338 EDT documented in this encounter Ordered Prescriptions Prescription Sig Dispensed Refills Start Date End Da te ergocalciferol (VITAMIN D) 50,000 unit capsuleIndications:Vitamin D deficiency Take 1 Cap by mouth once a week for 8 doses. 8 Cap 0 03/11/2011 04/30/2011 lisinopril-hydrochlorothia zide (PRINZIDE, ZESTORETIC) 20-12.5 mg per tabletIndications:Hyperten merrill Take 1 Tab by mouth daily. 90 Tab 3 03/09/2011 06/06/2012 documented in this encounter Progress Notes * Leida Man PA - 03/11/2011 1121 EDTAddended by: LEIDA MAN on: 03/11/2011 Modules accepted: Orders * Leida Man PA - 03/09/2011 1105 EDT Subjective: Patient ID: Doris Kerr is an 31 y.o. female. Chief Complaint Patient presents with ??? Hypertension BP check HPI Comments: Asks about vitamin levels. Sister has vitamin D deficiency. She has noted fatigue, some aches, weight gain and feels cold. Working with endocrine on her hypothyroidism. 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 Hypertension This is a chronic problem. Associated symptoms include malaise/fatigue and peripheral edema (sometimes by the end of the day). Pertinent negatives include no chest pain, palpitations or shortness of breath. She has tried DUSTIN inhibitors and diuretics (ran out of meds about 1.5 weeks ago, but before that BP was controlled) for the symptoms. Compliance problems: exercising 4 x/week and eating healthy choices. no added salt Has been on OCP for 10 years so doesn't feel it is the cause of her weight gain Patient Active Problem List Diagnoses Code ??? Asthma 493.90AE ??? Contraceptive management V25.9B ??? Dysplasia of cervix 622.10A ??? Blindness 369.00G ??? Acute pyelonephritis 590.10G ??? Grave's disease 242.00AD ??? Hypertension 401.9AJ ??? 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 Meningitis 2004 Current outpatient prescriptions ordered prior to encounter Medication Sig Dispense Refill ??? lisinopril-hydrochlorothiazide (PRINZIDE, ZESTORETIC) 20-12.5 mg per tablet Take 1 Tab by mouthdaily. 90 Tab 3 ??? SYNTHROID 125 mcg tablet Take 1 Tab by mouth daily. NEEDS BRAND NAME FOR PROPER ABSORPTION 30 Tab 12 ??? levonorgestrel-ethinyl estradiol (SEASONALE) 0.15-30 mg-mcg per tablet Take 1 Tab by mouth daily. Allergies Allergen Reactions ??? Penicillins ??? Sulfa (Sulfonamide Antibiotics) ??? Propranolol Social History Substance Use Topics ??? Smoking status: Never Smoker ??? Smokeless tobacco: Not on file ??? Alcohol Use: No Review of Systems Constitutional: Positive for malaise/fatigue. Negative for weight loss (gained 20 + lbs since beingon Synthroid). Respiratory: Negative for shortness of breath. Cardiovascular: Negative for chest pain and palpitations. Musculoskeletal: Positive for myalgias (occasional). - See HPI Objective: BP 118/92 Pulse 100 Wt 82.555 kg (182 lb) Physical Exam Vitals reviewed. Constitutional: She appears well-developed and well-nourished. No distress. Cardiovascular: Normal rate, regular rhythm and normal heart sounds. No murmur heard. Pulmonary/Chest: Effort normal and breath sounds normal. No respiratory distress. She has no wheezes. Musculoskeletal: She exhibits no edema. Neurological: She is alert. Skin: Skin is warm and dry. Psychiatric: She has a normal mood and affect. Her behavior is normal. Assessment: Encounter Diagnoses Name Primary? Hypertension ??? Fatigue ??? Myalgia Plan: Doris was seen today for hypertension. Diagnoses and associated orders for this visit: Hypertension - Comprehensive Metabolic Panel (CMP) - lisinopril-hydrochlorothiazide (PRINZIDE, ZESTORETIC) 20-12.5 mg per tablet; Take 1 Tab by mouth daily. Fatigue - Hemagram Myalgia - Vitamin D (25,OH) f/u annually as long as she's feeling well Continue occasional BP checks Patient Education Topic: as above Method: Verbal Taught to: Patient Barriers: None Outcomes: verbalized understanding Signature:DT documented in this encounter Plan of Treatment Not on file documented as of this encounter Procedures Procedure Name Priority Date/Time Associated Diagnosis Comments VITAMIN D (25,OH) Routine 03/09/2011 10: 42 EDT Myalgia COMPLETE BLOOD COUNT Routine 03/09/2011 10:42 EDT Fatigue COMPREHENSIVE METABOLIC PANEL (CMP) Routine 03/09/2011 10:42 EDT Hypertension documented in this encounter Results * VITAMIN D (25,OH) (03/09/2011 10:42 EDT) 25OH Vitamin D Tot 20.6 ng/ml [facility] Comment: Reference Range: <10 ng/ml: Deficient 10-30 ng/ml: Insufficient 30-100 ng/ml: Sufficient >100 ng/ml: Toxic Blood specimen (specimen) 03/09/2011 10:42 EDT 03/09/2011 12:09 EDT Leida Man PA-C CHEMISTRY & BLOOD GAS ORDERABLES Performing Organization Address [facility] Co de Phone Number [facility] [address] [place] [address] * HEMAGRAM (03/09/2011 10:42 EDT) WBC 7.25 4.0 - 12.4 K/cmm [facility] RBC 4.53 3.86 - 5.04 M/cmm [facility] Hemoglobin 13.4 11.6 - 15.2 gm/dl [facility] HCT 39.7 34.9 - 44.4 % [facility] MCV 88 81 - 98 fl [facility] MCH 29.6 26.7 - 33.3 pg [facility] MCHC 33.7 32.1 - 35.9 gm/dl [facility] PLT 284 141 - 320 K/cmm [facility] RDW-CV 13.5 11.7 - 14.6 % [facility] Blood specimen (specimen) 03/09/2011 10:42 EDT 03/09/2011 12:09 EDT Leida Man PA-C HEMATOLOGY & PF4 ORDERABLES Performing Organization Address City/[facility]/ZIP Co de Phone Number [facility] [address] [place] [address] * COMPREHENSIVE METABOLIC PANEL (CMP) (03/09/2011 10:42 EDT) Potassium 4.0 3.5 - 5.0 mEq/L [facility] Sodium 143 136 - 145 mEq/L [facility] Chloride 106 96 - 110 mEq/L [facility] CO2 27 24 - 32 mEq/L [facility] Total Alkaline Phosphatase 92 38 - 126 U/L [facility] Bilirubin, Total <0.5 0.2 - 1.3 mg/dl [facility] AST 20 15 - 46 U/L [facility] ALT 36 9 - 52 U/L [facility] Albumin 4.0 3.4 - 4.9 g/dl [facility] Total Protein 6.9 6.5 - 8.3 g/dl [facility] Creatinine 0.75 0.7 - 1.5 mg/dl [facility] GFR, Calculated >60 ml/min/1.7 3m2 [facility] BUN 12 10 - 26 mg/dl [facility] Calcium 9.3 8.5 - 10.5 mg/dl [facility] Calculated Calcium 9.7 8.5 - 10.5 mg/dl [facility] Glucose, Serum 76 70 - 100 mg/dl [facility] Fasting? No [facility] Blood specimen (specimen) 03/09/2011 10:42 EDT 03/09/2011 12:09 EDT Leida Man PA-C CHEMISTRY & BLOOD GAS ORDERABLES Performing Organization Address [facility] Co de Phone Number [facility] [address] [place] [address] documented in this encounter Visit Diagnoses Diagnosis Hypertension Unspecified essential hypertension Fatigue Other malaise and fatigue Myalgia Mylagia and myositis, unspecified Vitamin D deficiency Unspecified vitamin D deficiency documented in this encounter Discontinued Medications Medication Sig Discontinue Reason Start Date End Da te lisinopril-hydrochlorothi azide (PRINZIDE, ZESTORETIC) 20-12.5 mg per tabletIndications:Hyperte nsion Take 1 Tab by mouth daily. Reorder 11/14/2009 03/09/2011 documented as of this encounter Care Teams Horse Show Manager Relationship Specialty Start Date End Date Shannan Vieyra MD PCP - General 04/08/09 03/15/19 documented as of this encounter
--- OUTSIDE RECORDS SUMMARY | 2024-05-24 15:29 | XMS_ITS | Encounter Summary ---
Author Organization [facility] Address [address] [place] [address] Care Team Providers Care Conservation Officer Name Role Phone Shannan Vieyra MD Primary Care Provider Unavail able Encounter Details Date Type Department Care Team (Late st Contact Info) Description 03/09/2011 Phlebotomy Only [address] [address] Alumni Relations Manager, Outpatient Social History Tobacco Use Types Packs/Day Years [...] on filedocumented in this encounter Care Teams Conservation Officer Relationship Specialty Start Date End Date Shannan Vieyra MD PCP - General 04/08/09 03/15/19 documented as of this encounter
--- OUTSIDE RECORDS SUMMARY | 2024-05-24 15:29 | XMS_ITS | Encounter Summary ---
Author Organization [facility] Address [address] [place] [id number] Care Team Providers Care Dentistry Professor Name Role Phone Shannan Vieyra MD Primary Care Provider Unavail able Reason for Referral * Consult, Test and Treat (Routine/Next Available) - Closed Specialty Diagnoses / Procedures Referred By Julianne gallo Referred To Contact Speech Therapy Diagnoses Dysphonia Carter Reece MD [address] [place] [phone] Referral ID Status Reason Start Date Expiration Date V isits Requested Visits Authorized [id number] Closed Specialty Services Required 09/13/2012 1 1 Question Answer Reason for Request: high pitched, squeky voice with supraglottic hyperfunction Type of STUDENT OUTREACH COORDINATOR Eval: Voice Eval & Treat Reason for Visit * Reason Comments Hoarse for about 5 years Encounter Details Date Type Department Care Team (Late st Contact Info) Description 09/13/2012 15:10 EST Office Visit [facility] ENT- [address] [address] Carter Reece MD [address] [place] [phone] Dysphonia (Primary Dx) Social History Tobacco Use Types Packs/Day Years Used Date Smoking Tobacco: Never Alcohol Use Standard Drinks/Week Comments No 0 (1 standard drink = 0.6 oz pur e alcohol) Sex and Gender Information Value Date Recorded Sex Assigned at Not on file Gender Identity Not on file Sexual Orientation Not on file documented as of this encounter Progress Notes * Carter Reece MD - 09/13/2012 1538 EST Subjective: Patient ID: Doris Kerr is an 32 y.o. female. Chief Complaint Patient presents with ??? Hoarse for about 5 years Shannan Vieyra has requested that I see Doris Kerr in consultation regarding hoarseness. HPI Doris Kerr is seen today for hoarseness. She describes a high-pitched squeaky voice with a rough quality. This started soon after DOMINIQUE tx to her thyroid for Grave's Dz over 5 years ago. Voice alwayshas had a high pitch but it feels like she's always losing her voice and is more strained, squeaky. 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 No dysphagia or GERD. No sore throat. Non- smoker, non-drinker. Good water intake. Patient Active Problem List Diagnoses ??? Asthma ??? Contraceptive management ??? Cervical dysplasia ??? Blindness ??? Acute pyelonephritis ??? Graves' disease ??? Hypertension ??? Other iatrogenic hypothyroidism Past Medical History Diagnosis Date ??? Meningitis 2004 Past Surgical History Procedure Date ??? section ??? Ablation of dysrhythmic focus Family History Problem Relation Age of Onset ??? Kidney Disease Mother stones ??? Thyroid Disease Mother ??? Thyroid Disease Sister Social History Social History ??? Marital Status: Single Spouse Name: N/A Number of Children: N/A ??? Years of Education: N/A Occupational History ??? Not on file. Social History Main Topics ??? Smoking status: Never Smoker ??? Smokeless tobacco: Not on file ??? Alcohol Use: No ??? Drug Use: Not on file ??? Sexually Active: Not on file Other Topics Concern ??? Not on file Social History Narrative ??? No narrative on file Outpatient Prescriptions Marked as Taking for the 09/13/12 encounter (Office Visit) with Carter Reece MD Medication Sig Dispense Refill ??? thyroid (ARMOUR) 90 mg tablet Take 1 Tab by mouth daily. (Cancel order/refills on 120 mg dose) 90 Each 3 ??? lisinopril-hydrochlorothiazide (PRINZIDE, ZESTORETIC) 20-12.5 mg per tablet Take 1 Tab by mouthdaily. 90 Tab 3 ??? levonorgestrel-ethinyl estradiol (SEASONALE) 0.15-30 mg-mcg per tablet Take 1 Tab by mouth daily. Allergies Allergen Reactions ??? Penicillins ??? Propranolol ??? Sulfa(Sulfonamide Antibiotics) Review of Systems Constitutional: Negative for fever, chills, weight loss and malaise/fatigue. HENT: Negative for hearing loss, ear pain, congestion, sore throat and tinnitus. Eyes: Negative for blurred vision, double vision and photophobia. Respiratory: Negative for cough, hemoptysis, shortness of breath and wheezing. Cardiovascular: Positive for palpitations. Negative for chest pain, claudication and leg swelling. Gastrointestinal: Negative for heartburn. Musculoskeletal: Negative for myalgias and joint pain. Skin: Negative for rash. Neurological: Negative for sensory change, focal weakness and headaches. Endo/Heme/Allergies: Negative for environmental allergies. Does not bruise/bleed easily. - See HPI Objective: There were no vitals taken for this visit. Physical Exam Department of Otolaryngology PHYSICAL EXAMINATION CONSTITUTIONAL: VITAL SIGNS: Not reviewed APPEARANCE: The patient appears alert, cooperative, and comfortable. ABILITY TO COMMUNICATE / VOICE: voice is high-pitched and squeaky with some roughness HEAD AND FACE: INSPECTION: Normal without apparent scars, lesions, or masses. PALPATION: There are no masses or sinus tenderness. SALIVARY GLANDS: Submandibular and Parotid glands are normal bilaterally FACIAL STRENGTH: Intact and symmetrical bilaterally EXTERNAL EAR & NOSE: No external ear or nose deformity noted EYES: EYES: no nystagmus EARS, NOSE, MOUTH AND THROAT: OTOSCOPY: Right external auditory canal: patent and non-inflamed Left external auditory canal: patent and non-inflamed Right tympanic membrane: intact and normally mobile without retraction, perforation or effusion Left tympanic membrane: intact and normally mobile without retraction, perforation or effusion WHISPER/TUNING FORK: Hearing subjectively normal NOSE: normal turbinates and mucosa: septum in midline LIPS, TEETH & GUMS: normal for age ORAL CAVITY & OROPHARYNX: normal HYPOPHARYNX & PHARYNGEAL CASTILLO: See flexible exam report LARYNX: See flexible exam report NASOPHARYNX: See flexible exam report NECK: GENERAL: Supple, no asymmetry or crepitus, trachea midline THYROID: Normal LYMPHATIC: CERVICAL LYMPH NODES: No pathologic cervical lymphadenopathy noted RESPIRATORY: LUNGS: Not examined CARDIOVASCULAR: CARDIOVASCULAR: Not examined NEUROLOGIC: NEUROLOGIC: Normal mood and affect Endoscopy Procedure Note Pre-procedure Diagnosis: Hoarseness / Dysphonia Post-procedure Diagnosis: normal Indications: Hoarseness, dysphagia or aspiration - not able to be clearly evaluated by indirect laryngoscopy Anesthesia: Cophenylcaine Endoscopy Type: Laryngoscopy using a flexible laryngoscope Procedure Details: With the patient sitting upright in the examining chair informed consent was obtained. The left nostril was topically anesthetized with spray. After waiting an appropriate period of time for anesthesia/ vasoconstriction to become effective (if this was applicable), the scope was passed into the left nostril and the nasopharynx, oropharynx, hypopharynx and larynx were examined. Condition: Patient tolerated procedure well and left the office in a stable condition. Complications: None Findings: Nasopharynx: Normal exam of choanae, eustachian tubes, and adenoids for age Oropharynx: Normal exam of tongue base, tonsils, and posterior pharynx Hypopharynx: Normal piriform sinuses noted, no pooling of secretions Supraglottis: significant supraglottic hyperfunction Posterior Commissure: Normal Right True Vocal Fold: Normal Left True Vocal Fold: Normal Vocal Fold Mobility: Normal bilaterally Assessment: Encounter Diagnoses Name Primary? 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 Reassurance regarding normal vocal fold structure with no lesions or masses. Optimize vocal hygiene- handouts provided STUDENT OUTREACH COORDINATOR referral for voice therapy- should respond well RTO 3 months during voice clinic documented in this encounter Plan of Treatment Scheduled Referrals Name Type Priority Associated Diagnoses Orde r Schedule AMB CONSULT SPEECH & LANGUAGE PATHOLOGY Outpatient Referral Routine Dysphonia Ordered: 09/13/2012 documented as of this encounter Visit Diagnoses Diagnosis Dysphonia- Primary documented in this encounter Care Teams Dentistry Professor Relationship Specialty Start Date End Date Shannan Vieyra MD PCP - General 04/08/09 03/15/19 documented as of this encounter
--- OUTSIDE RECORDS SUMMARY | 2024-05-24 15:29 | XMS_ITS | Encounter Summary ---
Author Organization [facility] Address [address] [place] [id number] Care Team Providers Care Mobile Patrol Officer Name Role Phone Shannan Vieyra MD Primary Care Provider Unavail able Reason for Visit * Reason Onset Date Comments Medications Refill 02/24/2011 Encounter Details Date Type Department Care Team (Late st Contact Info) Description 02/24/[address] [address] Shannan Vieyra MD Medications Refill Social History [...] encounter Miscellaneous Notes * Telephone Encounter - Cassy Moran - 02/24/2011 0943 EDT Last Refill Date 11/14/09 90 3 RF Last Visit Date 02/13/10 Next Visit Date NO FU Is patient out of medication? YES documented in this encounter Plan of Treatment Not on file documented as of this encounter Visit Diagnoses Diagnosis Hypertension Unspecified essential hypertension documented in this encounter Care Teams Mobile Patrol Officer Relationship Specialty Start Date End Date Shannan Vieyra MD PCP - General 04/08/09 03/15/19 documented as of this encounter
--- OUTSIDE RECORDS SUMMARY | 2024-05-24 15:29 | XMS_ITS | Encounter Summary ---
Author Organization [facility] Address [address] [place] [address] Care Team Providers Care Disabilities Services Officer Name Role Phone Shannan Vieyra MD Primary Care Provider Unavail able Encounter Details Date Type Department Care Team (Late st Contact Info) Description 02/06/2008 Before PRISM Converted Visit (Maple) [facility] - Maple conversion [address] [place] [address] Juan Pablo Toth MD [employer] [address] [place] [phone] Social History Tobacco Use Types Packs/Day Years Used Date Smoking Tobacco: Never Assessed Sex and Gender Information Value Date Recorded Sex Assigned at Not on file Gender Identity Not on file Sexual Orientation Not on file documented as of this encounter Progress Notes * Juan Pablo Toth MD - 07/11/2009 0908 EDT DIVISION OF ENDOCRINOLOGY PROGRESS/FOLLOWUP NOTE - 02/06/2008 SUBJECTIVE Doris Kerr comes in today for evaluation of I-131 treated hyperthyroidism; however, the patient has not ???yet?? converted. When we saw her last the patienttotal T3 was still 98 ng/dl. Her free T4was 0.8 micro international units per milliliter and a TSH was still overly suppressed at less than0.02 micro international units per milliliter. This is still in the normal range. I had a feeling that she was going to convert rather quickly. The study was done on December 26 about a month ago. The patient was treated in October with around 10 millicuries of I-131 for hyperthyroidism. The patient states now that she is freezing all the time. The rest of her symptoms are interesting. She used to have constant diarrhea. She thought it was from something else. Probably it was from her hyperthyroidism. Now this has stopped, and she has normal bowel movements. Again she has cold intolerance as stated above. She did not realize it, but she has gained eight pounds since her last visit. OBJECTIVE Physical examination reveals that she weighs 156, 5 feet 3?? inches. Blood pressure 128/94, pulse of 92. This is an eight-pound weight gain. No exophthalmos or proptosis. I hardly feel any thyroid tissue on her neck. She has no tremor. Her skin is cold, but she has normal deep tendon reflexes with no hung-up relaxation phase. Normal skin temperature, texture and moisture. IMPRESSION I think she has finally converted. I will get a T3, T4 and TSH today and notify her if there is a change in her regimen which will require institution of thyroid replacement therapy. I will call in aprescription at that point. If that is the case, I will see her in about six weeks to be sure she is on the right dose. Then she needs to be seen only annually. If not, I will see her in six months for reassessment. Signed by Juan Pablo Toth MD 02/09/2008 12:25 Juan Pablo Toth MD [facility] Diabetes [place] blanker operator D: - Juan Pablo Toth MD - VIDA Job ID: [id number] Doc ID: [id number] cc: Shannan Vieyra MD ADDENDUM Start on 100 mcg Synthroid daily as she has converted 02/06/2008 12:07 Free L 0.7 ng/dL 0.8-1.8 Final * 02/06/2008 12:07 T3, Total 87 ng/dL 60-181 Final * 02/06/2008 12:07 TSH H 7.93 uIU/m... 0.35-5.00 Final * documented in this encounter Plan of Treatment Not on file documented as of this encounter Visit Diagnoses Not on filedocumented in this encounter Care Teams Disabilities Services Officer Relationship Specialty Start Date End Date Shannan Vieyra MD PCP - General 04/08/09 03/15/19 documented as of this encounter
--- OUTSIDE RECORDS SUMMARY | 2024-05-24 15:29 | XMS_ITS | Encounter Summary ---
Author Organization [facility] Address [address] [place] [address] Care Team Providers Care Product Engineering Manager Name Role Phone Unavailable Primary Care Provider Unavailabl e Encounter Details Date Type Department Care Team (Late st Contact Info) Description 11/04/2008 15:[address] [facility] - Maple conversion [address] [place] [address] Miguel Devine MD PhD [address] [facility] [address] [place] [id number] Discharge Disposition: Auto Discharge Social History Tobacco [...] Priority Date/Time Associated Diagnosis Comments TSH Routine 06/02/2009 15:57 EDT T4 FREE Routine 06/02/2009 15:57 EDT documented in this encounter Results * (ABNORMAL) TSH (06/02/2009 15:57 EDT) TSH <0.02(L) 0.35 - 5.00 uIU/ml [facility] Blood specimen (specimen) 06/02/2009 15:57 EDT 06/02/2009 15:58 EDT Juan Pablo Toth MD CHEMISTRY & BLOOD GAS ORDERABLES Performing Organization Address [facility] de Phone Number [facility] [address] [place] [address] * T4 FREE (06/02/2009 15:57 EDT) Free T4 1.4 0.8 - 1.8 ng/dL [facility] Blood specimen (specimen) 06/02/2009 15:57 EDT 06/02/2009 15:58 EDT Juan Pablo Toth MD CHEMISTRY & BLOOD GAS ORDERABLES Performing Organization Address [facility] de Phone Number [facility] [address] [address] documented in this encounter Visit Diagnoses Not on filedocumented in this encounter
--- OUTSIDE RECORDS SUMMARY | 2024-05-24 15:29 | XMS_ITS | Encounter Summary ---
Author Organization [facility] Address [address] [place] [address] Care Team Providers Care Transformer Molder Name Role Phone Shannan Vieyra MD Primary Care Provider Unavail able Reason for Visit * Reason Comments Thyroid Problem Encounter Details Date Type Department Care Team (Latest Contact Info) Description 03/23/2011 11:00 EDT Office Visit [facility] Endocrinology - [address] [address] Juan Pablo Toth MD [address] [facility] [address] [place] [address] Other postablative hypothyroidism (Primary Dx) [...] Sign Reading Time Taken Comments Blood Pressure 110/62 03/23/2011 1110 EDT Pulse 76 03/23/2011 1110 EDT Temperature - - Respiratory Rate - - Oxygen Saturation - - Inhaled Oxygen Concentration - - Weight 82.4 kg (181 lb 11.2 oz) 03/23/2011 1110 EDT Height 162.6 cm (5' 4) 03/23/2011 1110 EDT Body Mass Index 31.19 03/23/2011 1110 EDT documented in this encounter Progress Notes * Juan Pablo Toth MD - 03/23/2011 1135 EDT Endocrinology Follow-Up Thyroid Evaluation 03/23/2011 SUBJECTIVE: Doris Kerr is a 31 y.o. female who presents for follow-up of: 1. 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 female who presents for follow-up of: 1. 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 She was treated with 10 mCi in 10/2007 and becamehypothyroid. She has been on 100 mcg of thyroid hormone replacement since. HOWEVER, at her last visit SHE HAD TAKEN MEDS FOR 2 DAYS - ran out !!!!! (should not impact much on TFTs ) Doris Kerr reports the following:HUGE AMT of WT gain since thyroid ablation despite nl FT4 and in fact low TSH !!!!!! The patient would really like to change her preparation of thyroid hormone. We have discussed generics and the bioavailability being at least stable with the brand name Synthroid, which she has been on. I am not in favor of using thyroid extract. This patient like many others think that even though her thyroid values are normal, there is something definitely wrong with her thyroid and is looking for answers for her inability to gain weight and some of the other sluggish feelings that she has. SYMPTOM YES or NO Excess perspiration No [...] years !!!!!! Weigh loss No OBJECTIVE: BP 110/62 Pulse 76 Ht 162.6 cm (64) Wt 82.419 kg (181 lb 11.2 oz) BMI 31.19 kg/m2 General: alert, cooperative, no distress Eyes: no lid lag, periorbital edema, stare, proptosis or exophthalamus. EOM full. Neck: supple, symmetrical, trachea midline, no thyroidectomy scar, no adenopathy and abnormal thyroid: non-palpable Thyroid: no palpable nodule Extremities: extremities warm, atraumatic, no cyanosis or edema positive pulses bilat Skin: smooth, warm and dry Neuro: reflexes normal with no hung-up relaxation phase no tremors LAB REVIEW: Lab Results Component Value Date TSH 1.21 02/08/2011 Lab Results Component Value Date [id number] 116 03/23/2011 Lab Results Component Value Date Z0FCOES 23.9* 10/25/2007 Lab Results Component Value Date FREET4 1.4 03/23/2011 ASSESSMENT: 1. 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 Her TSH was in the normal range of 1.21, but yet her free T4 was 0.8 nanogram per deciliter, and her free T3 was at the low level of normal at 2.3 picogram per milliliter as well. Repeat laboratory testing today should add a little bit more light on the situation now that she is taking her medication on a daily basis. My initial feeling is that I would not like to change her to the thyroid extract, but I do not think anything is going to make her happy with reference to her thyroid dosing. PLAN: 1. Labs: TSH and free thyroxine 2. Medications: Synthroid (DOUG) 100 mcg/day 3. The risks and benefits of my recommendations, as well as other treatment options were discussed with the patient today. Questions were answered. 4. Follow up: 1 year and as needed. Juan Pablo Toth MD 03/23/2011 14:48 documented in this encounter Plan of Treatment Not on file documented as of this encounter Results * T3, TOTAL (03/23/2011 11:55 EDT) T3, Total 116 60 - 181 ng/dL [facility] Blood specimen (specimen) 03/23/2011 11:55 EDT 03/23/2011 11:56 EDT Juan Pablo Toth MD CHEMISTRY & BLOOD GAS ORDERABLES [facility] [address] [place] [address] documented in this encounter Visit Diagnoses Diagnosis Other postablative hypothyroidism- Primary documented in this encounter Orders Lab Orders Without Results Count Last Ordered D ate First Ordered Date T4 FREE 1 03/23/2011 TSH 1 03/23/2011 documented in this encounter Care Teams Transformer Molder Relationship Specialty Start Date End Date Shannan Vieyra MD PCP - General 04/08/09 03/15/19 documented as of this encounter
--- OUTSIDE RECORDS SUMMARY | 2024-05-24 15:29 | XMS_ITS | Encounter Summary ---
Author Organization [facility] Address [address] [place] [address] Care Team Providers Care Batch Dumper Name Role Phone Shannan Vieyra MD Primary Care Provider Unavail able Encounter Details Date Type Department Care Team (Late st Contact Info) Description 04/15/2008 Before PRISM Converted Visit (Maple) [facility] - Maple conversion [address] [place] [address] Juan Pablo Toth MD [facility] [address] [place] [phone] Social History Tobacco Use Types Packs/Day Years Used Date Smoking Tobacco: Never Assessed Sex and Gender Information Value Date Recorded Sex Assigned at Not on file Gender Identity Not on file Sexual Orientation Not on file documented as of this encounter Progress Notes * Juan Pablo Toth MD - 07/11/2009 0843 EDT DIVISION OF ENDOCRINOLOGY PROGRESS/FOLLOWUP NOTE - 04/15/2008 LYNDON Kerr comes in today for evaluation of hypothyroidism secondary to I-131 therapy. When she was evaluated on her last visit it looked like she had converted and her TSH was slightly elevated to7.93 after 10 millicuries of I-131 were administered in October. We started her on 100 mcg of thyroid hormone at that point. Since then she has had one period, has some hair loss. No excessive perspiration. Shehas always had palpitations because of an arrhythmia for which she has seen a aviation consultant over a period of time. She has no diarrhea or constipation, no tremor. Byour scales her weight has gone up 7pounds. MEDICATIONS The patient also takes: control. 2. Atenolol. 3. Diltiazem. EXAM The patient's physical, in addition to the 163 pounds, shows that her pulse is 88 and blood pressure is 134/90. She has no exophthalmos or proptosis. Difficult to feel any thyroid tissue. She has no tremor. Normal deep tendon reflexes with perhaps a hung-up relaxation phase just in one biceps but the lab will determine whether or not she needs more thyroid hormone. Skin temperature, texture, and m oisture are normal. IMPRESSION Post I-131 therapy on 100 mcg of thyroid hormone replacement. We will check for the adequacy of this dose and see the patient in one year should she need no changes. If a change in dose is necessary I will have it done at an outside lab in six weeks and then readdress the issue. She still does not have to return for a year. addendum I would hold on this dose 04/15/2008 11:26 T4, Free 1.5 ng/dL 0.8-1.8 Final * 04/15/2008 11:26 TSH L <0.02 Y uIU/m... 0.35-5.00 Final * Signed by Juan Pablo Toth MD 04/21/2008 22:05 Juan Pablo Toth MD [facility] Diabetes [employer] manager rental - Juan Pablo Toth MD - SHARI Job ID: [id number] Doc ID: [id number] cc: Shannan Vieyra MD documented in this encounter Plan of Treatment Not on file documented as of this encounter Visit Diagnoses Not on filedocumented in this encounter Care Teams Batch Dumper Relationship Specialty Start Date End Date Shannan Vieyra MD PCP - General 04/08/09 03/15/19 documented as of this encounter
--- OUTSIDE RECORDS SUMMARY | 2024-05-24 15:29 | XMS_ITS | Encounter Summary ---
Author Organization [facility] Address [address] [place] [address] Care Team Providers Care Front Desk Associate Name Role Phone Shannan Vieyra MD Primary Care Provider Unavail able Encounter Details Date Type Department Care Team (Late st Contact Info) Description 10/23/2012 Phlebotomy Only [address] [address] Operations Representative, Outpatient Other iatrogenic hypothyroidism Social History Tobacco Use Types Packs/Day [...] Date/Time Associated Diagnosis Comments T3, TOTAL Routine 10/23/2012 16:37 EST Other iatrogenic hypothyroidism TSH Routine 10/23/2012 16:37 EST Other iatrogenic hypothyroidism T4 FREE Routine 10/23/2012 16:37 EST Other iatrogenic hypothyroidism documented in this encounter Results * (ABNORMAL) T4 FREE (10/23/2012 16:37 EST) Free T4 0.7(L) 0.8 - 1.8 ng/dL [facility] Blood specimen (specimen) 10/23/2012 16:37 EST 10/23/2012 18:28 EST Leida Cerda PA-C CHEMISTRY & BLOOD GAS ORDERABLES [facility] [address] [place] [address] * (ABNORMAL) T3, TOTAL (10/23/2012 16:37 EST) T3, Total 55(L) 60 - 181 ng/dL [facility] Blood specimen (specimen) 10/23/2012 16:37 EST 10/23/2012 18:28 EST Leida Cerda PA-C CHEMISTRY & BLOOD GAS ORDERABLES Performing Organization Address [facility] Co de Phone Number [facility] [address] [place] [address] * (ABNORMAL) TSH (10/23/2012 16:37 EST) TSH 9.78(H) 0.35 - 5.00 uIU/ml [facility] Blood specimen (specimen) 10/23/2012 16:37 EST 10/23/2012 18:28 EST Leida Cerda PA-C CHEMISTRY & BLOOD GAS ORDERABLES Performing Organization Address [facility] Co de Phone Number [facility] [address] [place] [address] documented in this encounter Visit Diagnoses Diagnosis Other iatrogenic hypothyroidism documented in this encounter Care Teams Front Desk Associate Relationship Specialty Start Date End Date Shannan Vieyra MD PCP - General 04/08/09 03/15/19 documented as of this encounter
--- OUTSIDE RECORDS SUMMARY | 2024-05-24 15:29 | XMS_ITS | Encounter Summary ---
Author Organization [facility] Address [address] [place] [address] Care Team Providers Care Torpedo Worker Name Role Phone Shannan Vieyra MD Primary Care Provider Unavail able Reason for Visit * Reason Comments URI COUGH AND COLD. COUG H IS GETTING WORSE, VOMITS, 3-4 WEEKS. Encounter Details Date Type Department Care Team (Late st Contact Info) Description 02/13/2010 9:30 EDT Office Visit [address] [address] Shannan Vieyra MD Cough (Primary Dx) Social History Tobacco Use Types [...] Sign Reading Time Taken Comments Blood Pressure 118/90 02/13/2010 1002 EDT Pulse 80 02/13/2010 1002 EDT Temperature 37 ??C (98.6 ??F) 02/13/2010 1002 EDT Respiratory Rate 20 02/13/2010 1002 EDT Oxygen Saturation - - Inhaled Oxygen Concentration - - Weight - - Height - - Body Mass Index - - documented in this encounter Ordered Prescriptions Prescription Sig Dispensed Refills Start Date End Da te albuterol (PROVENTIL HFA, VENTOLIN HFA) 90 mcg/Actuation inhalerIndications:Cough Inhale 2 Puffs as directed every 4 hours as needed for Wheezing. 1 Inhaler 2 02/13/2010 02/08/2011 chlorpheniramine-hydroco done (TUSSIONEX) 8-10 mg/5 mL suspensionIndications:Co ugh Take 5 mL by mouth every 12 hours as needed for Cough. 60 mL 0 02/13/2010 02/08/2011 azithromycin (ZITHROMAX) 250 mg tabletIndications:Cough Take 1 Tab by mouth. Take 2 tablets (500 mg) on Day 1, followed by 1 tablet (250 mg) once daily on Days 2 through 5. 6 Tab 0 02/13/2010 02/08/2011 documented in this encounter Progress Notes * Shannan Vieyra MD - 02/14/2010 [address] [address] PROGRESS/FOLLOWUP NOTE - 02/13/2010 TEMPORARY PROBLEM: Cough. SUBJECTIVE: Doris is a 30-year-old lady who comes in today because of one month's duration of cough that she feels now is getting worse. She is now getting paroxysms of cough that cause gagging and vomiting. Cough is worse at nighttime. She feels that when the cough started, that it was more of anupper respiratory infection. Her daughter, who is 4 years old, also coughed to the point of vomiting last night but has just finished a full course of antibiotics for ear infection. 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 She therefore has had student exposure in that timeframe.Nobody else lives in the household, except Sarah and her daughter. She has a past history of exercise-induced asthma, but has otherwise not needed an inhaler for a long time. She is on lisinopril but this does not appear to be a light dry irritated cough that could be a side effect of lisinopril. OBJECTIVE: She looks well. She is in no acute distress, although she did cough frequently throughout the appointment. Blood pressure 118/90, pulse 80 and regular, respiratory rate 20. She is afebrile. Throat exam is normal. No cervical or supraclavicular lymphadenopathy. Ear canals and tympanic membranes are normal bilaterally. Lungs are completely clear to percussion and auscultation anteriorly and posteriorly. ASSESSMENT: Cough with a pattern that is concerning for pertussis. Differential includes prolonged viral illness, reactive airways component or postviral hypersensitivity cough or alleries. No evidence of pneumonia. PLAN: Discussed the fact that pertussis is within her differential. She has not had the recent Tdapbooster. She will need to be out of school for five days, which would include today, the weekend and then Tuesday, Tuesday; the and . Z-DANITA prescribed for five days. Tussionex suspension for bedtime. Warned her sedation and constipation. Albuterol inhaler 2 puffs every 4 hours p.r.n. Nasal swab for pertussis done but I did explain to her that a negative swab does not tell us anything, buta positive would be reported to the health department. She understands all of this and all the plans and recommendations. There were no barriers; verbalized understanding. Dictated at 10:35 a.m. Tussionex was not covered for her. Some Robitussen with codeine called in. Electronically Signed by Shannan Vieyra MD 02/14/2010 09:51 Shannan Vieyra MD - Shannan Vieyra MD - DM1 Job ID: SM Doc ID: [id number] Ext Doc ID: [id number] cc: * Kristi Monroy LPN - 02/13/2010 1246 EDT TDAP VACCINE GIVEN. * Shannan Vieyra MD - 02/13/2010 1031 EDT See dictation documented in this encounter Plan of Treatment Not on file documented as of this encounter Procedures Procedure Name Priority Date/Time Associated Diagnosis Comments BORDETELLA PERTUSSIS CULTURE Routine 02/13/2010 10:23 EDT Cough documented in this encounter Results * BORDETELLA PERTUSSIS CULTURE (02/13/2010 10:23 EDT) Specimen Description Nasopharynx CAMILA LOWE ??RECD [facility] Result No Bordetella pertussis isolated [facility] Report Status Final 02/21/2010 [facility] Specimen of unknown material (specimen) 02/13/2010 10:23 EDT 02/13/2010 19:00 EDT Shannan Vieyra MD MICROBIOLOGY - GENER AL ORDERABLES [facility] [address] [place] [address] documented in this encounter Visit Diagnoses Diagnosis Cough- Primary documented in this encounter Discontinued Medications Medication Sig Discontinue Reason Start Date End Da te ALBUTEROL INHL Inhale 2 Puffs as directed. Therapy completed documented as of this encounter Orders Immunization/Injection Count Last Ordered Date First Ordered Date TDAP VACCINE =>7YO IM 1 02/13/2010 documented in this encounter Care Teams Torpedo Worker Relationship Specialty Start Date End Date Shannan Vieyra MD PCP - General 04/08/09 03/15/19 documented as of this encounter
--- OUTSIDE RECORDS SUMMARY | 2024-05-24 15:29 | XMS_ITS | Encounter Summary ---
Author Organization [facility] Address [address] [place] [address] Care Team Providers Care Cutter Tender Name Role Phone Shannan Vieyra MD Primary Care Provider Unavail able Reason for Visit * Reason Onset Date Comments Medications Refill 06/06/2012 Encounter Details Date Type Department Care Team (Late st Contact Info) Description 06/06/2012 Refill [facility] Family Medicine [address] [phone] Shannan Vieyra MD Medications Refill Social History [...] Tab by mouth daily. 90 Tab 0 06/06/2012 06/14/2012 documented in this encounter Miscellaneous Notes * Telephone Encounter - Mary Hitchcock - 06/06/2012 1115 EDT Medication Requested - lisinopril-hctz Last Refill Date - 03.09.11 Last Visit Date - 11.29. Next Visit Date - 06.14.12 Is patient out of medication? yes documented in this encounter Plan of Treatment Not on file documented as of this encounter Visit Diagnoses Diagnosis Hypertension- Primary Unspecified essential hypertension documented in this encounter Discontinued Medications Medication Sig Discontinue Reason Start Date End Da te lisinopril-hydrochlorothi azide (PRINZIDE, ZESTORETIC) 20-12.5 mg per tabletIndications:Hyperte nsion Take 1 Tab by mouth daily. Reorder 03/09/2011 06/06/2012 documented as of this encounter Care Teams Cutter Tender Relationship Specialty Start Date End Date Shannan Vieyra MD PCP - General 04/08/09 03/15/19 documented as of this encounter
--- OUTSIDE RECORDS SUMMARY | 2024-05-24 15:29 | XMS_ITS | Encounter Summary ---
Author Organization [facility] Address [address] [place] [address] Care Team Providers Care Drive Thru Order Taker Name Role Phone Shannan Winter MD Primary Care Provider Unavail able Encounter Details Date Type Department Care Team (Late st Contact Info) Description 12/31/2009 Results Only [facility] - [facility] [address] [place] [id number] Julita Martinez MD [address] [facility], [facility] [address] [place] [phone] Social History Tobacco Use Types Packs/Day Years [...] Priority Date/Time Associated Diagnosis Comments CYTOPATHOLOGY Routine 12/31/2009 0:00 EDT documented in this encounter Results * CYTOPATHOLOGY (12/31/2009 0:00 EDT) Pathology Report: CYTOPATHOLOGY REPORT ? Reports generated via electronic interface contain original data; ? however they are lacking the format of the original report. ? Caution should be taken when reading/interpreti ng unformatted reports. ? Name: ? DORIS KERR ? Accession #: ? [id number] ? : ? 1980 (Age: 29) ??F ?Collect Date: ? 12/31/2009 ? Location: ? [facility] ? Receive Date: ? 01/02/2010 ? Provider: ?JULITA MARTINEZ MD ? Copy to: ?SHANNAN WINTER MD ? Specimen/Source: ?Pap Test, Cervix/Endocervix, ThinPrep Imaging System ? with manual evaluation ? Last Menstrual Period: ? 12/09 ? Hormonal/Contracep tive Status: ? Yes: Seasonale ? SPECIMEN ADEQUACY ? Satisfactory for Evaluation ? - transformation zone component present ? GENERAL CATEGORIZATION ? Negative for Intraepithelial Lesion or Malignancy ? INTERPRETATION ? Reactive cellular changes associated with inflammation present (includes ?? repair). ? Document reviewed and electronically signed by: ? SHAYE LYNN MD [facility] ? Report Date: ??01/07/2010 14:43 ? End of Report ? [facility] 12/31/2009 01/02/2010 Julita Martinez MD PATHOLOGY ORDERABLES [facility] [address] [place] [address] documented in this encounter Visit Diagnoses Not on filedocumented in this encounter Care Teams Drive Thru Order Taker Relationship Specialty Start Date End Date Shannan Winter MD PCP - General 04/08/09 03/15/19 documented as of this encounter
--- OUTSIDE RECORDS SUMMARY | 2024-05-24 15:29 | XMS_ITS | Encounter Summary ---
Author Organization [facility] Address [address] [place] [address] Care Team Providers Care Musculoskeletal Physician Name Role Phone Shannan Vieyra MD Primary Care Provider Unavail able Reason for Referral * Consult (Routine/Next Available) - Closed Specialty Diagnoses / Procedures Referred By Julianne gallo Referred To Contact Otolaryngology Diagnoses Hoarseness of voice Leida Man PA-C [address] [place] [address] Carter Reece MD [address] [facility], [address] [place] [address] Referral ID Status Reason Start Date Expiration Date V isits Requested Visits Authorized [id number] Closed Specialty Services Required 06/14/2012 1 1 Question Answer Reason for Request: hoarseness Comments Hoarseness of voice since radioactive iodine tx to thyroid Reason for Visit * Reason Comments Hypertension been running high, h ere for check Encounter Details Date Type Department Care Team (Late st Contact Info) Description 06/14/2012 10:00 EDT Office Visit [facility] Family Medicine [address] [phone] Leida Man PA-C [address] [place], [place] [phone] Hypertension (Primary Dx); Other iatrogenic hypothyroidism; Grave's disease; Hoarseness of voice Social History Tobacco Use Types Packs/Day Years [...] Sign Reading Time Taken Comments Blood Pressure 117/80 06/14/2012 1004 EDT Pulse 88 06/14/2012 1004 EDT Temperature - - Respiratory Rate - - Oxygen Saturation - - Inhaled Oxygen Concentration - - Weight - - Height - - Body Mass Index - - documented in this encounter Ordered Prescriptions Prescription Sig Dispensed Refills Start Date End Da te thyroid (ARMOUR) 90 mg tabletIndications:Other iatrogenic hypothyroidism Take 1 Tab by mouth daily. (Cancel order/refills on 120 mg dose) 90 Each 3 06/19/2012 10/15/2013 thyroid (ARMOUR THYROID) 120 mg tabletIndications:Other iatrogenic hypothyroidism Take 1 Tab by mouth daily. 90 Each 3 06/14/2012 06/19/2012 lisinopril-hydrochlorothiaz peewee (PRINZIDE, ZESTORETIC) 20-12.5 mg per tabletIndications:Hypertens ion Take 1 Tab by mouth daily. 90 Tab 3 06/14/2012 10/15/2013 documented in this encounter Progress Notes * Leida Man PA - 06/19/2012 1357 EDTAddended by: LEIDA MAN on: 06/19/2012 13:57 Modules accepted: Orders * Leida Man PA - 06/19/2012 1352 EDT Phone call with labs and low tsh and high T3. Need to reduce dose of armour thyroid and re check labs in 2 mo. * Leida Man PA - 06/14/2012 1134 EDT Subjective: Patient ID: Doris Kerr is an 32 y.o. female. Chief Complaint Patient presents with ??? Hypertension been running high, here for check HPI Comments: Running out of BP meds so here for refills. Feeling well. Low sodium diet, eating well, bikes near daily. Tolerating meds. No home BP checks Would like us to rx thyroid replacement instead of endocrinology. Feels much better since switchingfrom synthroid to armour thyroid. Has better energy, and had successful weight loss. Has had hoarseness since DOMINIQUE tx to her thyroid. Voice always has had a high pitch but it feels likeshe's always losing her voice. No vocal overuse. No sore throat. Hypertension This is a chronic problem. The problem is controlled. Pertinent negatives include no chest pain, headaches, palpitations, peripheral edema or shortness of breath. Past treatments include DUSTIN inhibitors and diuretics. The current treatment provides significant improvement of lipids. There are no compliance problems. Patient Active Problem List Diagnoses ??? Asthma ??? Contraceptive management ??? Dysplasia of cervix ??? Blindness ??? Acute pyelonephritis ??? Grave's disease ??? Hypertension ??? Other iatrogenic hypothyroidism Past Medical History Diagnosis Date ??? Meningitis 2004 Current Outpatient Prescriptions on File Prior to Visit Medication Sig Dispense Refill ??? lisinopril-hydrochlorothiazide (PRINZIDE, ZESTORETIC) 20-12.5 mg per tablet Take 1 Tab by mouthdaily. 90 Tab 3 ??? albuterol (PROVENTIL HFA, VENTOLIN HFA) 90 mcg/actuation inhaler Inhale 2 Puffs as directed every 4 hours as needed for Wheezing. 1 Inhaler 2 ??? levonorgestrel-ethinyl estradiol (SEASONALE) 0.15-30 mg-mcg per tablet Take 1 Tab by mouth daily. Allergies Allergen Reactions ??? Penicillins ??? Propranolol ??? Sulfa(Sulfonamide Antibiotics) Social History Substance Use Topics ??? Smoking status: Never Smoker ??? Smokeless tobacco: Not on file ??? Alcohol Use: No Review of Systems HENT: Negative for sore throat. Respiratory: Negative for shortness of breath. Cardiovascular: Negative for chest pain, palpitations and leg swelling. Neurological: Negative for dizziness and headaches. - See HPI Objective: BP 117/80 Pulse 88 BP re check 110/70 Physical Exam Nursing note and vitals reviewed. Constitutional: She is oriented to person, place, and time. She appears well- developed and well-nourished. No distress. HENT: High pitched hoarse voice Neck: No thyromegaly present. Cardiovascular: Normal rate, regular rhythm and normal heart sounds. Pulmonary/Chest: Effort normal and breath sounds normal. Musculoskeletal: She exhibits no edema. Neurological: She is alert and oriented to person, place, and time. Skin: Skin is warm and dry. Psychiatric: She has a normal mood and affect. Her behavior is normal. Assessment: Encounter Diagnoses Name Primary? Hypertension Yes ??? Other iatrogenic hypothyroidism ??? Grave's disease ??? Hoarseness of voice Plan: Doris was seen today for hypertension. Diagnoses and associated orders for this visit: Hypertension - Basic Metabolic Panel - lisinopril-hydrochlorothiazide (PRINZIDE, ZESTORETIC) 20-12.5 mg per tablet; Take 1 Tab by mouth daily. Other iatrogenic hypothyroidism/Grave's disease - TSH - T4, Free - T3, Total - thyroid (ARMOUR THYROID) 120 mg tablet; Take 1 Tab by mouth daily. Hoarseness of voice - Ambulatory Consult Ent Med refills given and will adjust based on labs Patient Education Topic: as above Method: Verbal Taught to: Patient Barriers: None Outcomes: verbalized understanding Signature:DT documented in this encounter Plan of Treatment Scheduled Referrals Name Type Priority Associated Diagnoses Orde r Schedule AMB CONSULT ENT Outpatient Referral Routine Hoarseness of voice Ordered: 06/14/2012 documented as of this encounter Procedures Procedure Name Priority Date/Time Associated Diagnosis Comments T3, TOTAL Routine 06/14/2012 10:47 EDT Other iatrogenic hypothyroidism TSH Routine 06/14/2012 10:47 EDT Other iatrogenic hypothyroidism T4 FREE Routine 06/14/2012 10:47 EDT Other iatrogenic hypothyroidism BASIC METABOLIC PANEL (BMP) Routine 06/14/2012 10:47 EDT Hypertension documented in this encounter Results * (ABNORMAL) T4 FREE (10/23/2012 16:37 EST) Free T4 0.7(L) 0.8 - 1.8 ng/dL [facility] Blood specimen (specimen) 10/23/2012 16:37 EST 10/23/2012 18:28 EST Leida Man PA-C CHEMISTRY & BLOOD GAS ORDERABLES Performing Organization Address [facility] de Phone Number [facility] [address] [place] [address] * (ABNORMAL) T3, TOTAL (10/23/2012 16:37 EST) T3, Total 55(L) 60 - 181 ng/dL [facility] Blood specimen (specimen) 10/23/2012 16:37 EST 10/23/2012 18:28 EST Leida Man PA-C CHEMISTRY & BLOOD GAS ORDERABLES Performing Organization Address [facility] Phone Number [facility] [address] [place] [address] * (ABNORMAL) TSH (10/23/2012 16:37 EST) TSH 9.78(H) 0.35 - 5.00 uIU/ml [facility] Blood specimen (specimen) 10/23/2012 16:37 EST 10/23/2012 18:28 EST Leida Man PA-C CHEMISTRY & BLOOD GAS ORDERABLES Performing Organization Address [facility] de Phone Number [facility] [address] [place] [address] * (ABNORMAL) T3, TOTAL (06/14/2012 10:47 EDT) T3, Total 263(H) 60 - 181 ng/dL [facility] Blood specimen (specimen) 06/14/2012 10:47 EDT 06/14/2012 11:59 EDT Leida Man PA-C CHEMISTRY & BLOOD GAS ORDERABLES Performing Organization Address City/[facility]/ZIP Co de Phone Number [facility] [address] [place] [address] * T4 FREE (06/14/2012 10:47 EDT) Free T4 1.5 0.8 - 1.8 ng/dL [facility] Blood specimen (specimen) 06/14/2012 10:47 EDT 06/14/2012 11:59 EDT Leida Man PA-C CHEMISTRY & BLOOD GAS ORDERABLES Performing Organization Address [facility] Co de Phone Number [facility] [address] [place] [address] * (ABNORMAL) TSH (06/14/2012 10:47 EDT) [facility] TSH <0.02(L) 0.35 - 5.00 uIU/ml [facility] Blood specimen (specimen) 06/14/2012 10:47 EDT 06/14/2012 11:59 EDT Leida Man PA-C CHEMISTRY & BLOOD GAS ORDERABLES Performing Organization Address [facility] Co de Phone Number [facility] [address] [place] [address] * BASIC METABOLIC PANEL (06/14/2012 10:47 EDT) Pathologist [facility] Sodium 136 136 - 145 mEq/L [facility] Potassium 4.0 3.5 - 5.0 mEq/L [facility] Chloride 100 96 - 110 mEq/L [facility] CO2 24 24 - 32 mEq/L [facility] BUN 15 10 - 26 mg/dl [facility] Creatinine 0.66 0.52 - 1.04 mg/dl [facility] GFR, Calculated >60 >60 ml/min/1.7 3m2 [facility] Calcium 10.1 8.5 - 10.5 mg/dl [facility] Calculated Calcium 10.0 8.5 - 10.5 mg/dl [facility] Glucose, Serum 83 70 - 100 mg/dl [facility] Fasting? Yes [facility] Blood specimen (specimen) 06/14/2012 10:47 EDT 06/14/2012 11:59 EDT Leida Man PA-C CHEMISTRY & BLOOD GAS ORDERABLES [facility] [address] [place] [address] documented in this encounter Visit Diagnoses Diagnosis Hypertension- Primary Unspecified essential hypertension Other iatrogenic hypothyroidism Grave's disease Toxic diffuse goiter without mention of thyrotoxic crisis or storm Hoarseness of voice Dysphonia documented in this encounter Discontinued Medications Medication Sig Discontinue Reason Start Date End Da te azithromycin (ZITHROMAX) 250 mg tabletIndications:Bronchi tis, acute Take 2 tablets (500 mg) on day 1, followed by 1 tablet (250 mg) once daily on days 2 through 5. Therapy completed 11/29/2011 06/14/2012 lisinopril-hydrochlorothi azide (PRINZIDE, ZESTORETIC) 20-12.5 mg per tabletIndications:Hyperte nsion Take 1 Tab by mouth daily. Reorder 06/06/2012 06/14/2012 thyroid (ARMOUR THYROID) 120 mg tablet Take 1 Tab by mouth daily. Reorder 04/15/2011 06/14/2012 thyroid (ARMOUR THYROID) 120 mg tabletIndications:Other iatrogenic hypothyroidism Take 1 Tab by mouth daily. Reorder 06/14/2012 06/19/2012 documented as of this encounter Care Teams Musculoskeletal Physician Relationship Specialty Start Date End Date Shannan Vieyra MD PCP - General 04/08/09 03/15/19 documented as of this encounter
--- OUTSIDE RECORDS SUMMARY | 2024-05-24 15:30 | XMS_ITS | Encounter Summary ---
Author Organization [facility] Address [address] [place] [address] Care Team Providers Care Regulator Assembler Name Role Phone Unavailable Primary Care Provider Unavailabl e Encounter Details Date Type Department Care Team (Late st Contact Info) Description 05/14/2005 16:35 EDT - 05/19/2005 11:59 EDT Hospital Encounter [facility] Mother/Baby Unit [address] [place] [address] Denice Martinez MD [address] [facility], [facility] [address] [place] [address] True Ledesma MD [address] [place] [address] Discharge Disposition: Home-Health Care Svc Social History Tobacco Use Types Packs/Day Years Used Date Smoking Tobacco: Never Assessed Sex and Gender Information Value Date Recorded Sex Assigned at Not on file Gender Identity Not on file Sexual Orientation Not on file documented as of this encounter Discharge Disposition Disposition Code Departure Means Destination Home-Health Care Svc documented in this encounter OR Notes * OR Surgeon - Ashley Kovacs MD - 05/15/2005 0000 EDT PROCEDURE REPORT PT TYPE: IP PT LOC: [id number] SERVICE DATE: 05/15/2005 SURGEON: Jaden Mcneil MDJoanna W Hatfield, MDKimberly Blake, MD SECRETARY BOOK KEEPER: Hua Kovacs MD PREOPERATIVE DIAGNOSIS: Term intrauterine with arrest of dilation POSTOPERATIVE DIAGNOSIS: Term intrauterine with arrest of dilation PROCEDURE: Primary low transverse section ANESTHESIA: Epidural INDICATIONS: The patient is a 25-year-old 2, para 2-0-0-1-0 who is at 38+5 weeks gestational age. The patient presented in spontaneous labor and had an early evaluation and a rule out for preeclampsia. The patientlabor arrested at 6 cm dilation and remained at 6 cm for four hours. Adequate contractions had been confirmed with the placement of an intrauterine pressure catheter. Decision was made to take the patient for a section. FINDINGS: Liveborn female in cephalic presentation with Apgars of 9 and 9 and weight of 7 pounds 5 ounces. Normal placenta, three-vessel cord. Normal uterus, tubes and ovaries bilaterally. NARRATIVE: The patient was taken to the operating room where her epidural was bolused and was foundto be adequate. She was prepped and draped in normal sterile fashion in the dorsal supine position with a leftward tilt. A Pfannenstiel skin incision was made with a scalpel, carried through to the un derlying layer of fascia using the scalpel. The fascia was incised at the midline. The incision wasextended laterally with the Jamison scissors. The superior aspect of the fascial incision was grasped with the Yvonne clamps, elevated, theunderlying rectus muscles were dissected off bluntly and then sharply at the midline using the Jamison scissors. Attention was then turned to the inferior aspect of this incision, which was treated in the same manner. The rectus muscles were in themidline and then the peritoneum was identified and entered bluntly. The peritoneal incision was extended adequately with the blunt dissection and there was good visualization of the bladder. The bladder bladewas inserted. The vesicouterine peritoneum wasidentified, grasped with the pickups and entered sharply with the Metzenbaum scissors to laterally extend this incision and the bladder flap was created digitally and the bladder blade was reinserted. The uterine incision was then made in a transverse fashion with a scalpel. The uterine incision was extended laterally with the bandage scissors. The bladder blade was removed. The infanthead was delivered atraumatically. The nose and mouth were suctioned. The cord was clamped and cut. The was handed off to the pediatricians. The placenta was then removed with gentle traction on the cord and manual massage of the uterus. The uterus was then e xteriorized and cleared of all clots and debris. The uterine incision was repaired with 0 Vicryl olga runninglocked fashion. A second layer of the same suture was used to imbricate, obtaining excellent hemostasis. The uterus was then returned to the abdomen. Gutters were cleared of all clots and irrigation was performed. The fascia was then closed using 0 Maxon in a running fashion. The skin was then closed with wilma. The patient tolerated the procedure well. The sponge, lap and needle counts were correct x2. Two grams of cefazolin were given at the time of cord clamp. The patient was taken to the recovery room in stable condition. ESTIMATED BLOOD LOSS: 800 cc. FLUIDS: 1200 cc lactated Ringer. URINE OUTPUT: 400 cc. FOREIGN MATERIAL RETAINED: Adan. COMPLICATIONS: None. CONDITION: Stable. DISPOSITION: Recovery on Grigsby 7 and then to the PACU. Signed by Denice Martinez MD 06/09/2005 13:56 Estuardo Mcneil MDKimberly Blake, MD Dictated by: Ashley Kovacs MD Denice Martinez MD - Ashley Kovacs MD A - jaw Job ID: [id number] Document ID: [id number] cc: MD Shannan King MD Joanna W Hatfield, MD documented in this encounter Plan of Treatment Not on file documented as of this encounter Procedures Procedure Name Priority Date/Time Associated Diagnosis Comments COMPLETE BLOOD COUNT Routine 05/17/2005 8:45 EDT COMPLETE BLOOD COUNT Routine 05/16/2005 12:40 EDT COMPLETE BLOOD COUNT Routine 05/16/2005 8:15 EDT URINALYSIS WITH MICROSCOPIC IF POSITIVE Routine 05/14/2005 19:00 EDT UA REFLEX Routine 05/14/2005 19:00 EDT URINE CULTURE IF POSITIVE Routine 05/14/2005 19:00 EDT CREATININE Routine 05/14/2005 18:00 EDT FIBRINOGEN Routine 05/14/2005 18:00 EDT COMPLETE BLOOD COUNT Routine 05/14/2005 18:00 EDT URIC ACID Routine 05/14/2005 18:00 EDT BUN Routine 05/14/2005 18:00 EDT ALT Routine 05/14/2005 18:00 EDT AST Routine 05/14/2005 18:00 EDT documented in this encounter Results * (ABNORMAL) HEMAGRAM (05/17/2005 8:45 EDT) WBC 10.61 4.0 - 12.4 K/cmm [facility] RBC 2.53(L) 3.86 - 5.04 M/cmm [facility] Hemoglobin 6.7(LL) 11.6 - 15.2 gm/dl [facility] HCT 20.0(LL) 34.9 - 44.4 % [facility] MCV 79(L) 81 - 98 fl [facility] MCH 26.5(L) 26.7 - 33.3 pg [facility] MCHC 33.4 32.1 - 35.9 gm/dl [facility] PLT 197 141 - 320 K/cmm [facility] RDW-CV 14.9(H) 11.7 - 14.6 % [facility] 05/17/2005 8:45 EDT 05/17/2005 8:53 EDT True Ledesma MD HEMATOLOGY & PF4 ORDERABLES [facility] [address] [place] [address] * (ABNORMAL) HEMAGRAM (05/16/2005 12:40 EDT) WBC 10.72 4.0 - 12.4 K/cmm [facility] RBC 2.62(L) 3.86 - 5.04 M/cmm [facility] Hemoglobin 6.8(LL) 11.6 - 15.2 gm/dl [facility] HCT 20.6(LL) 34.9 - 44.4 % [facility] MCV 79(L) 81 - 98 fl [facility] MCH 26.0(L) 26.7 - 33.3 pg [facility] MCHC 33.0 32.1 - 35.9 gm/dl [facility] PLT 161 141 - 320 K/cmm [facility] RDW-CV 15.0(H) 11.7 - 14.6 % [facility] 05/16/2005 12:4 0 EDT 05/16/2005 12:50 EDT True Ledesma MD HEMATOLOGY & PF4 ORDERABLES Performing Organization Address City/[facility]/ZIP Co de Phone Number [facility] [address] [place] [address] * (ABNORMAL) HEMAGRAM (05/16/2005 8:15 EDT) WBC 10.27 4.0 - 12.4 K/cmm [facility] RBC 2.58(L) 3.86 - 5.04 M/cmm [facility] Hemoglobin 6.8(LL) 11.6 - 15.2 gm/dl [facility] HCT 20.3(LL) 34.9 - 44.4 % [facility] MCV 79(L) 81 - 98 fl [facility] MCH 26.4(L) 26.7 - 33.3 pg [facility] MCHC 33.5 32.1 - 35.9 gm/dl [facility] PLT 156 141 - 320 K/cmm [facility] RDW-CV 15.0(H) 11.7 - 14.6 % [facility] 05/16/2005 8:15 EDT 05/16/2005 9:13 EDT True Ledesma MD HEMATOLOGY & PF4 ORDERABLES Performing Organization Address [facility] de Phone Number [facility] [address] [place] [address] * UA REFLEX (05/14/2005 19:00 EDT) UA Billing Microscopic not indicated. [facility] 05/14/2005 19:0 0 EDT 05/14/2005 19:06 EDT True Ledesma MD URINALYSIS ORDERA BLES Performing Organization Address [facility] de Phone Number [facility] [address] [place] [address] * URINALYSIS (05/14/2005 19:00 EDT) Color, UA Yellow [facility] Clarity, UA Clear [facility] Glucose, UA Norm NORM [facility] Bilirubin, UA Neg NEG [facility] Ketones, UA Neg NEG [facility] Specific [place], Urine 1.015 1.005 - 1.02 [facility] Blood, UA Neg NEG [facility] pH, UA 7.0 5.0 - 9.0 [facility] Protein, UA Neg NEG [facility] Urobilinogen, UA Norm NORM mg/dL [facility] Nitrite, UA Neg NEG [facility] Leuk Esterase Neg NEG [facility] 05/14/2005 19:0 0 EDT 05/14/2005 19:06 EDT True Ledesma MD URINALYSIS ORDERA BLES [facility] [address] [place] [address] * CULTURE IF UA POSITIVE (05/14/2005 19:00 EDT) Pathologist [facility] Culture if Indicated Culture not indicated by urinalysis results. [facility] 05/14/2005 19:0 0 EDT 05/14/2005 19:06 EDT True Ledesma MD MICROBIOLOGY - GE NERAL ORDERABLES Performing Organization Address [facility] Co de Phone Number [facility] [address] [place] [address] * URIC ACID (05/14/2005 18:00 EDT) Pathologist [facility] Uric Acid 6.9 2.2 - 7.7 mg/dl [facility] Comment:Slight hemolysis 05/14/2005 18:0 0 EDT 05/14/2005 18:24 EDT True Ledesma MD CHEMISTRY & BLOOD GAS ORDERABLES Performing Organization Address [facility] de Phone Number [facility] [address] [place] [address] * FIBRINOGEN (05/14/2005 18:00 EDT) Pathologist [facility] Fibrinogen 355 220 - 410 mg/dl [facility] Comment:Moderately lipemic 05/14/2005 18:0 0 EDT 05/14/2005 18:24 EDT True Ledesma MD HEMATOLOGY & PF4 ORDERABLES Performing Organization Address [facility] de Phone Number [facility] [address] [place] [address] * (ABNORMAL) CREATININE (05/14/2005 18:00 EDT) Pathologist [facility] Creatinine 0.5(L) 0.7 - 1.5 mg/dl [facility] Comment:Slight hemolysis 05/14/2005 18:0 0 EDT 05/14/2005 18:24 EDT True Ledesma MD HISTORICAL LAB FO R SQ LOAD Performing Organization Address [facility] Co de Phone Number [facility] [address] [place] [address] * (ABNORMAL) HEMAGRAM (05/14/2005 18:00 EDT) WBC 8.30 4.0 - 12.4 K/cmm [facility] RBC 4.12 3.86 - 5.04 M/cmm [facility] Hemoglobin 10.9(L) 11.6 - 15.2 gm/dl [facility] HCT 32.4(L) 34.9 - 44.4 % [facility] MCV 78(L) 81 - 98 fl [facility] MCH 26.4(L) 26.7 - 33.3 pg [facility] MCHC 33.7 32.1 - 35.9 gm/dl [facility] PLT 158 141 - 320 K/cmm [facility] RDW-CV 14.9(H) 11.7 - 14.6 % [facility] 05/14/2005 18:0 0 EDT 05/14/2005 18:24 EDT True Ledesma MD HEMATOLOGY & PF4 ORDERABLES Performing Organization Address [facility] de Phone Number [facility] [address] [place] [address] * BUN (05/14/2005 18:00 EDT) BUN 11 10 - 26 mg/dl [facility] Comment:Slight hemolysis 05/14/2005 18:0 0 EDT 05/14/2005 18:24 EDT True Ledesma MD CHEMISTRY & BLOOD GAS ORDERABLES Performing Organization Address [facility] Co de Phone Number [facility] [address] [place] [address] * AST (05/14/2005 18:00 EDT) AST 38 15 - 46 U/L [facility] Comment:Slight hemolysis 05/14/2005 18:0 0 EDT 05/14/2005 18:24 EDT True Ledesma MD CHEMISTRY & BLOOD GAS ORDERABLES Performing Organization Address [facility] de Phone Number [facility] [address] [place] [address] * ALT (05/14/2005 18:00 EDT) ALT 13 9 - 52 U/L [facility] Comment:Slight hemolysis 05/14/2005 18:0 0 EDT 05/14/2005 18:24 EDT True Ledesma MD CHEMISTRY & BLOOD GAS ORDERABLES Performing Organization Address [facility] Phone Number [facility] [address] [place] [phone] documented in this encounter Visit Diagnoses Not on filedocumented in this encounter
--- OUTSIDE RECORDS SUMMARY | 2024-05-24 15:30 | XMS_ITS | Encounter Summary ---
Author Organization [facility] Address [address] [place] [address] Care Team Providers Care It Consulting Director Name Role Phone Unavailable Primary Care Provider Unavailabl e Encounter Details Date Type Department Care Team (Late st Contact Info) Description 06/29/2005 9:42 EDT Hospital Encounter [facility] - Other [address] [place] [address] Denice Martinez MD [address] [place] [address], [facility] [address] [place] [phone] Social History Tobacco Use Types Packs/Day Years Used Date Smoking Tobacco: Never Smokeless Tobacco: Never Alcohol Use Standard Drinks/Week Comments No 0 (1 standard drink = 0.6 oz pur e alcohol) [facility] Utilities Answer Date Recorded In the past 12 months has [employer], gas, oil, or water [employer] threatened to shut off services in your [...] place to sleep or slept in a skilled nursing (including now)? No 10/28/2023 Interpersonal Safety Answer [...]
--- OUTSIDE RECORDS SUMMARY | 2024-05-24 15:30 | XMS_ITS | Encounter Summary ---
Author Organization [facility] Address [address] [place] [address] Care Team Providers Care Call Center Nurse Name Role Phone Unavailable Primary Care Provider Unavailabl e Encounter Details Date Type Department Care Team (Late st Contact Info) Description 09/11/2007 14:16 EST Hospital Encounter [facility] - [facility] conversion [address] [place] [address] Miguel Devine MD PhD [address] [facility] Level [address] [place] [phone] Discharge Disposition: Auto Discharge Social History Tobacco [...]
--- OUTSIDE RECORDS SUMMARY | 2024-05-24 15:30 | XMS_ITS | Encounter Summary ---
Author Organization [facility] Address [address] [place] [address] Care Team Providers Care Armored Transport Service Manager Name Role Phone Shannan Vieyra MD Primary Care Provider Unavail able Encounter Details Date Type Department Care Team (Late st Contact Info) Description 06/10/2005 Before PRISM Converted Visit (Maple) [facility] - Maple conversion [address] [place] [address] Germain Mason MD [address] [place] [address] [place] [phone] Social History Tobacco Use Types Packs/Day Years Used Date Smoking Tobacco: Never Assessed Sex and Gender Information Value Date Recorded Sex Assigned at Not on file Gender Identity Not on file Sexual Orientation Not on file documented as of this encounter Progress Notes * Celso, Conv Supervisor Electronics Assembly - 12/10/2009 1102 EST DIVISION OF ENDOCRINOLOGY PROGRESS/FOLLOWUP NOTE - 06/10/2005 SUBJECTIVE: Doris is a pleasant 25-year-old woman with a history of Gravesdisease. She has had a normal delivery four weeks ago. Her hyperthyroidism continued during her for which we switched her over from methimazole to PTU 150 mg three times a day. This is her first visit inour clinic. She is not complaining of any symptoms in favor of hyperthyroidism, including tremor, anxiety, weight loss or palpitations. OBJECTIVE: Blood pressure 132/80, pulse82 and regular, weight 158. She is in no apparent distress. Extraocular muscles are intact. Pupils round and reactive to light. On neck exam thyroid gland is onthe high side of normal in terms of size and it is not tender. On chest exam there is S1, S2 regular heart rhythm. Lungs clear to auscultation. Abdomen soft and nontender with positive bowel sounds. T here is no peripheral edema. She has normal tendon reflexes. ASSESSMENT AND PLAN: Doris is a pleasant 25-year-old woman with Gravesdisease which continued throughout her recent . She had a normal delivery four weeks ago. During she was placed on PTU instead of methimazole 150 mg three times a day. Our recommendations for Doris are as follows: 1. I would like to measure her thyroid function test today. In the meantime I recommended to switchover to methimazole 30 mg a day. If her blood work indicates hyperthyroidism I would like to increase the dose of methimazole to 40 mg per day. 2. I explained to her that there is a slight chance of transference of antibodies related to Gravesdisease from mother to baby and it may harbor a slim chance of hyperthyroidism her child. She is going to report any unusual symptoms of her child to our clinic to further this idea. The hyperthyroidism of this kind is usually temporary and transient for less than two to three months. 3. I would like to see her back in our clinic in three months. Signed by Germain Mason MD 06/27/2005 05:25 Edgardo Mandujano MD Germain Mason MD D: - Germain Mason MD P - dd Job ID: Document ID: [id number] cc: documented in this encounter Plan of Treatment Not on file documented as of this encounter Visit Diagnoses Not on filedocumented in this encounter Care Teams Armored Transport Service Manager Relationship Specialty Start Date End Date Shannan Vieyar MD PCP - General 04/08/09 03/15/19 documented as of this encounter
--- OUTSIDE RECORDS SUMMARY | 2024-05-24 15:30 | XMS_ITS | Encounter Summary ---
Author Organization [facility] Address [address] [place] [address] Care Team Providers Care Application Project Leader Name Role Phone Unavailable Primary Care Provider Unavailabl e Encounter Details Date Type Department Care Team (Latest Contact Info) Description 10/22/2004 18:14 EST Hospital Encounter [address] [address] True Ledesma MD [address] [place] [address] Discharge Disposition: Auto Discharge Social History Tobacco [...] Procedure Name Priority Date/Time Associated Diagnosis Comments NURSING HOME DETAILED Routine 12/24/2004 15:00 EST documented in this encounter Results * NURSING HOME DETAILED (12/24/2004 15:00 EST) Anatomical Region Laterality Modality Other 12/24/2004 15:0 0 EST Narrative 06/05/2009 11:06 EDT [address]903,GRAVES DISEASE,DRUG EXPOSURE IST TRI Please refer to the separate [facility] report. Procedure Note Efe Acuña MD - 06/05/2009 [id number],GRAVES DISEASE,DRUG EXPOSURE IST TRI Please refer to the separate [facility] report. True Ledesma MD [facility] NURSING HOME ORDERA BLES documented in this encounter Visit Diagnoses Not on filedocumented in this encounter
--- OUTSIDE RECORDS SUMMARY | 2024-05-24 15:30 | XMS_ITS | Encounter Summary ---
Author Organization [facility] Address [address] [place] [address] Care Team Providers Care Cargo Router Name Role Phone Shannan Vieyra MD Primary Care Provider Unavail able Encounter Details Date Type Department Care Team (Late st Contact Info) Description 09/11/2007 Before PRISM Converted Visit (Maple) [facility] - Maple conversion [address] [place] [address] Flako Mondragon MD, [address] [facility] [address] [place] [address] Social History Tobacco Use Types Packs/Day Years Used Date Smoking Tobacco: Never Assessed Sex and Gender Information Value Date Recorded Sex Assigned at Not on file Gender Identity Not on file Sexual Orientation Not on file documented as of this encounter Progress Notes * Flako Mondragon Anthony - 08/20/2009 1256 EST RE: NAME: DORIS KERR : 1980 PROGRESS/FOLLOWUP NOTE - 10/09/2007 Jessie Vieyra M.D. [facility] [address], [place] Dear Dr. Vieyra: We had the pleasure of seeing Doris Kerr back in cardiac arrhythmia clinic today for followup after her recent electrophysiology study. As youknow, Doris had seen us in clinic the beginning of September for reevaluation of persistent presumed inappropriate sinus tachycardia. At that time we reviewed her records and because one of her previous Holter monitors suggested the possibility of an ectopic atrial rhythm, we decided to pursue an electrophysiology study to further define whether she actually had an atrial tachycardia rather than inappropriate sinus tachycardia. During the study we found that her tachycardia was indeed inappropriate sinus tachycardia. After discussion with her and with her family, we decided to perform a limited sinus node modification, given the amount of symptomsfatou was having related to the tachycardia. We did perform several lesions in the region of the sinus node at the site of earliest atrial activation, without resulting in any change in the tachycardiarate. Given that there is limited data to support extensive ablation of the sinus node for this condition, we opted to stop the procedure at that point rather than perform further lesions. Doris comes to clinic today saying that she continues to feel essentially the same as she did prior to the procedure. She has recovered well and has not had any problems at the groin access sites. She simply wants to know what the next step is. Past Medical History: 1. Inappropriate sinus tachycardia as noted above. 2. History of pyelonephritis. 3. Hyperthyroidism. 4. Hypertension. ALLERGIES: PENICILLIN AND SULFA DRUGS. Current Medications: 1. Atenolol 50 mg p.o. b.i.d. 2. Methimazole 10 mg p.o. q.i.d. 3. Oral contraceptive pills. 4. Cardizem CD 180 mg a day - this was increased to 360 mg a day. Review of Systems: As per HPI. Physical Exam: Blood pressure 148/100, pulse 146-150. In general, she appears somewhat nervous, butin no apparent distress. She is accompanied to the visit today by her 2-year-old daughter. Impression: Inappropriate sinus tachycardia. Plan: Unfortunately, Jp is not atypical for inappropriate sinus tachycardia. At this point, we propose to do the following. We will increase her Cardizem CD to 360 mg p.o. once a day to seeif we can suppress the tachycardia further. Additionally, we feel that she needs to have complete suppression of her hyperthyroidism in order to fully rule that out as the etiology of her persistent sinus tachycardia. Looking back through her records, she has had essentially undetectable levels of TSH going back many years,despite the therapy with methimazole. We think it is critical that the hyperthyroidism be completely suppressed to see if this normalizes her heart rate. If this results in no rmalization of the heart rate, then that is the solution to her problems with tachycardia. On the other hand, if the resolution of her hyperthyroidism does not change her tachycardia whatsoever, thenother etiologies must be sought and we will consider referring her at that point for further testing for evidence of autonomic dysfunction. We are asking her to contact her carpet technician to furtherdiscuss this issue and we will see her back in followup in clinic once the thyroid issues are further addressed. It you have any questions in the interim regarding this treatment plan, pleasefeel free to contact us. Sincerely, saw and examined the patient with the resident/fellow. I agree with the findings and plan of care documented in the resident's/fellow's note. Signed by Miguel Devine MD 10/23/2007 10:23 Flako Mondragon MD Miguel Devine MD - Flako Mondragon MD - dsp Job ID: [id number] Doc ID: [id number] cc: Shannan Vieyra MD documented in this encounter Plan of Treatment Not on file documented as of this encounter Visit Diagnoses * Evaluation - Flako Mondragon - 08/17/2009 0216 EST RE: NAME: DORIS KERR : 1980 NEW PATIENT EVALUATION - 09/11/2007 Jessie Vieyra M.D. [address] Vieyra: We had the pleasure of seeing Doris Kerr today in cardiac arrhythmia clinic for evaluation of herpersistent tachycardia. As you know, Doris has had a history of tachycardia dating back several years and has been told that she most likely has inappropriate sinus tachycardia. She has been taking a relatively high dose of atenolol for this without much relief. She says her heart rate is constantly in the 110-120 range. She has also been diagnosed her hyperthyroidism and is on Tapazole for that. She reports to us that her thyroid is mostly under control and that medication forthat did not alter the tachycardia. The tachycardia is significantly limiting her quality of life. She has not been able to do any kind of exercise, because any time she does anything physical, her heart rate gets upvery high and she will feel short of breath and somewhat dizzy. She does have a history of some syncope severe years ago, but nothing recent. She does not get any chest pain. Over the years she has had numerous EKGs and all of these have revealed tachycardia, which appears to be sinus tachycardia. However, she had a Holter monitor performed on April 23, 2003, and very interestingly, on the Holter monitor there are several strips where her heart rate will abruptly slow and the P-wave morphology changes somewhat. This suggests that she may be in atrial tachycardia that occasionally breaks into si nus rhythm. Certainly there is nothing definitive on the Holter, but it is quite suggestive. Past Medical History: 1. Sinus tachycardia as noted above. 2. History of pyelonephritis. 3. Hyperthyroidism. 4. Hypertension. ALLERGIES: PENICILLIN AND SULFA DRUGS. Current Medications: 1. Atenolol 50 mg q.i.d. - this was decreased to 50 mg p.o. b.i.d. today. 2. Methimazole 10 mg q.i.d. 3. control pills as directed. 4. Cardizem CD 180 mg p.o. a day - this was started today. Social History: She is and has young children. She does not smoke or drink alcohol. She denies use of any drugs or eauc-dic-ntlnbie stimulants. She does not have a high caffeine intake. Review of Systems: As per HPI. Additionally, she has a mild tremor, which is attributed to her thyroid disease. Physical Exam: Blood pressure 170/88, pulse 134, weight 161 pounds. In general, she appears well and in no apparent distress. HEENT exam is unremarkable. Neck is supple. There is no jugular venous distention. Carotid pulses are 2+ bilaterally. Lungs are clear to auscultation bilaterally. Cardiovascular exam reveals a regular rhythm without murmurs, rubs, or gallops. Abdomen soft and nontender. Extremities are without cyanosis, clubbing or edema. Impression: Persistent tachycardia, which is either inappropriate sinus tachycardia versus atrial tachycardia (see above). Plan: At this point, we will plan on pursuing an electrophysiology study to further delineate the nature of Gerrysistent tachycardia. Perhaps this is an atrial tachycardia, which will respond to ablation. However, she does understand that there is a chance that we will, in the end, wind up concluding that this is inappropriate sinus tachycardia and that further pharmacologic therapy is in order. We will plan on pursuing the EP study in the next week or two. Please feel free to call with anyquestions about Ms. Kerr. Sincerely, saw and examined the patient with the resident/fellow. I agree with the findings and plan of care documented in the resident's/fellow's note. Signed by Miguel Devine MD 09/19/2007 17:16 Flako Mondragon MD Miguel Devine MD - Flako Mondragon MD - dsp Job ID: [id number] Doc ID: [id number] cc: documented in this encounter Care Teams Cargo Router Relationship Specialty Start Date End Date Shannan Vieyra MD PCP - General 04/08/09 03/15/19 documented as of this encounter
--- OUTSIDE RECORDS SUMMARY | 2024-05-24 15:30 | XMS_ITS | Encounter Summary ---
Author Organization [facility] Address [address] [place] [address] Care Team Providers Care Division Merchandise Manager Name Role Phone Shannan Vieyra MD Primary Care Provider Unavail able Encounter Details Date Type Department Care Team (Late st Contact Info) Description 11/19/2006 Office Visit [facility] - Maple conversion [address] [place] [address] Humaira Gallagher MD [address] [place] [id number] Social History Tobacco Use Types Packs/Day Years Used Date Smoking Tobacco: Never Assessed Sex and Gender Information Value Date Recorded Sex Assigned at Not on file Gender Identity Not on file Sexual Orientation Not on file documented as of this encounter Progress Notes * Humaira Gallagher MD - 12/04/2009 0223 EST Care Center - Physician Summary Registration Date/Time: 11/19/2006 14:12 Arrived- By private vehicle. Historian- patient and historian (accompanied by sister). HISTORY OF PRESENT ILLNESS Chief Complaint- Injury to the right foot. The injury happened last night. The patient sustained a moderate direct blow- kicked furniture. Occurred at home. Pain at lateral Rfoot & 5th toe. Hurts to walk; can't wear shoe; hurts to wiggle toes.. Patient is experiencing moderate pain. Patient denies injury to the head or neck. No other injury. REVIEW OF SYSTEMS The patient complains of pain on weight bearing. She has had swelling. She has had pain-related weakness. No tingling, numbness, suspected foreign body or skin laceration. PAST HISTORY See nurses notes. Medications: The patient's medications have been reviewed with the patient. See nurses notes. Allergies: The patient's allergies have been reviewed with the patient. See nurses notes. SOCIAL HISTORY Occasional alcohol use. Nonsmoker. has 18 month old at home; not working out of the house. ADDITIONAL NOTES The nursing notes have been reviewed. PHYSICAL EXAM Appearance: Alert. Oriented X3. Patient in mild distress. Vital Signs: Have been reviewed. Head: Head atraumatic. Skin: Skin intact. Skin warm and dry. Extremities: Severe soft-tissue tenderness in the right lateral foot. Mild bony tenderness in the right lateral foot. Ankle stable. Base of the right 5th metatarsal: erythema, tenderness, swelling and ecchymosis. Weight bearing- unable to do so.Neurovascular intact distally. No laceration, abrasion, puncture wound or deformity. Tip of right fifth toe: tenderness. No erythema, swelling or laceration of tip of right fifth toe. No right fifth toenail avulsion, exposed bone of right fifth toe or loss of the nail bed of right fifth toe. No signs of infection present in the feet or ankles. No extremity tenderness in other areas. No ankle injury. Gait: Gait not tested due to pain. The patient was unable to bear weight. Neuro, Vascular and Tendons: Sensation intact. No functional tendon deficit. Neuro, Vascular, and Tendons: No pulse deficit present. Weakness secondary to pain. No tendon injury seen. Neuro: Oriented X 3. No alteration in mental status. LABS, X-RAYS, AND EKG X-Rays: The X-rays were interpreted by the radiologist and contemporaneously by me. Rt Toes X-ray: Right toe (s) fracture. Fracture involving the proximal phalanx of the fifth toe. incomplete fracture. Technique: good. PROGRESS AND PROCEDURES E.D. Course: Given ibuprofen and tylenol.. CLINICAL IMPRESSION [id number] toe fracture. INSTRUCTIONS Apply ice intermittently (15-20 minutes at a time 4-6 times daily). Use crutches. Jeremie tape toes. Elevate affected areas abovechest level. No weight bearing. You have an incomplete fracture of the right 5th toe. Call your primary care doctor's office Tuesday to arrange follow-up.. Warnings: GENERAL WARNINGS: Return or contact your physician immediately if your condition worsens or changesunexpectedly, if not improving as expected, or if other problemsarise. (Electronically signed by Humaira Gallagher M.D. 11/19/2006 19:07) Shalini DORIS Hernandez VisitID: [id number] Date:11/19/2006 11/19/2006 14:21 Pt states they were referred to [facility] by their PCP. signed by Aura Pearce - 11/19/2006 14:21) Care Center - Nursing Summary Registration Date/Time: 11/19/2006 14:12 TRIAGE Initial Assessment Triage time 15:01. BP: 130 / 60 sitting R arm manual. HR: 100. RR: 16. Temp: 96.7 oral. (done by Essence). --1507 Kita Cordero R.N.. Medications (atenolol,tapezol,bc pill). --1507 Kita Cordero R.N.. Allergies (pcn,sulfa). --1507 Kita Cordero R.N.. History Chief Complaint: INJURY TO RIGHT FOOT. This occurred last night. Mechanism of injury: a blow [facility] Pain level now: 6/10. Pain level (pain mostly to 5th digit of right foot). The patient has had trouble walking. No numbness or tingling. Treatment ROLL CUTTING OPERATOR: Ice. PAST HX: No infectious disease exposure. (1). (arrythmias, graves disease). SOCIAL HX: Occasional alcohol use. Nonsmoker. No report of abuse. Historian: patient. Accompanied by family and arrived by private vehicle. --1507 Kita Cordero R.N.. PAST HX. PHYSICAL ASSESSMENT Ambulatory to room. Alert. Oriented X 3. Right foot: moderate tenderness, mild swelling and small ecchymosis (right foot 5th digit). --1508 Kita Cordero R.N.. NURSING PROGRESS NOTES Progress Cold pack applied. Extremity elevated. --1509 Ktia Cordero R.N. (Report received). --1656 Jumana Yo R.N. Patient identifiers checked. Checked patient name and birthdate. ACETAMINOPHEN 975 mg X 1 PO. IBUPROFEN 800 mg X 1 PO. . --1715 Daiana Diego R.N. (Report from Rickey Yo RN). --1717 Daiana Diego R.N. Right fourth and fifth toes jeremie-taped; padding placed between digits. Ortho shoe applied to rightfoot by nurse. Patient fit with crutches. Crutch training performed by nurse; the patient demonstrated proper use. --1800 Daiana Diego R.N.. DISPOSITION / DISCHARGE Patient reports pain level on departure as 6/10. Condition at departure: stable. No learning barriers present. Discharge instructions reviewed with the patient and infection control rn.Patient verbalized understanding. The patient was discharged home and accompanied by infection control rn. The patient left the Emergency Department ambulatory and via private vehicle. Power Digger Operator driving. Departure time: 18:01. --1801 Daiana Diego R.N.. Locked/Released at 11/19/2006 18:01 by Daiana Diego R.N. documented in this encounter Plan of Treatment Not on file documented as of this encounter Visit Diagnoses Not on filedocumented in this encounter Care Teams Division Merchandise Manager Relationship Specialty Start Date End Date Shannan Vieyra MD PCP - General 04/08/09 03/15/19 documented as of this encounter
--- OUTSIDE RECORDS SUMMARY | 2024-05-24 15:30 | XMS_ITS | Encounter Summary ---
Author Organization [facility] Address [address] [place] [address] Care Team Providers Care Record Cutter Name Role Phone Shannan Vieyra MD Primary Care Provider Unavail able Encounter Details Date Type Department Care Team (Late st Contact Info) Description 10/22/2004 Results Only [facility] - Maple conversion [address] [place] [address] BaltazarTrue richardson MD [address] [place] [phone] Social History Tobacco Use Types Packs/Day Years Used Date Smoking Tobacco: Never Assessed Sex and Gender Information Value Date Recorded Sex Assigned at Not on file Gender Identity Not on file Sexual Orientation Not on file documented as of this encounter Plan of Treatment Not on file documented as of this encounter Procedures Procedure Name Priority Date/Time Associated Diagnosis Comments URINALYSIS WITH MICROSCOPIC IF POSITIVE Routine 10/22/2004 18:15 EST UA REFLEX Routine 10/22/2004 18:15 EST BACTERIAL CULTURE, URINE Routine 10/22/2004 18:15 EST PROFILE Routine 10/22/2004 18:1 3 EST T3, TOTAL Routine 10/22/2004 18:13 EST TSH Routine 10/22/2004 18:13 EST T4 FREE Routine 10/22/2004 18:13 EST T4 Routine 10/22/2004 18:13 EST documented in this encounter Results * BACTERIAL CULTURE, URINE (10/22/2004 18:15 EST) Specimen Description Urine [facility] Result Greater than 100,000 CFU/ml LACTOBACILLU S SPECIES Less than 10,000 CFU/ml Gram positive organism [facility] Report Status Final [id number] [facility] 10/22/2004 18:1 5 EST 10/22/2004 18:17 EST True Ledesma MD MICROBIOLOGY - GE NERAL ORDERABLES Performing Organization Address [facility] Co de Phone Number [facility] [address] [place] [address] * UA REFLEX (10/22/2004 18:15 EST) UA Billing Microscopic not indicated. [facility] 10/22/2004 18:1 5 EST 10/22/2004 18:17 EST True Ledesma MD URINALYSIS ORDERA BLES Performing Organization Address [facility] Co de Phone Number [facility] [address] [place] [address] * URINALYSIS (10/22/2004 18:15 EST) Color, UA Yellow [facility] Clarity, UA Clear [facility] Glucose, UA Norm NORM [facility] Bilirubin, UA Neg NEG [facility] Ketones, UA Neg NEG [facility] Specific [place], Urine 1.010 1.005 - 1.02 [facility] Blood, UA Neg NEG [facility] pH, UA 8.5 5.0 - 9.0 [facility] Protein, UA Neg NEG [facility] Urobilinogen, UA Norm NORM mg/dL [facility] Nitrite, UA Neg NEG [facility] Leuk Esterase Neg NEG [facility] 10/22/2004 18:1 5 EST 10/22/2004 18:17 EST True Ledesma MD URINALYSIS ORDERA BLES Performing Organization Address City/[facility]/ZIP Co de Phone Number [facility] [address] [place] [address] * (ABNORMAL) TSH (10/22/2004 18:13 EST) TSH <0.02(L) 0.35 - 5.50 uIU/ml [facility] 10/22/2004 18:1 3 EST 10/22/2004 18:16 EST True Ledesma MD CHEMISTRY & BLOOD GAS ORDERABLES Performing Organization Address [facility] Co de Phone Number [facility] [address] [place] [address] * (ABNORMAL) T4 (10/22/2004 18:13 EST) T4, Total 18.2(H) 4.5 - 10.9 ug/dl [facility] 10/22/2004 18:1 3 EST 10/22/2004 18:16 EST True Ledesma MD CHEMISTRY & BLOOD GAS ORDERABLES Performing Organization Address [facility] Co de Phone Number [facility] [address] [place] [address] * (ABNORMAL) T3, TOTAL (10/22/2004 18:13 EST) T3, Total 395(H) 60 - 181 ng/dl [facility] 10/22/2004 18:1 3 EST 10/22/2004 18:16 EST True Ledesma MD CHEMISTRY & BLOOD GAS ORDERABLES Performing Organization Address [facility] Co de Phone Number [facility] [address] [place] [address] * (ABNORMAL) T4 FREE (10/22/2004 18:13 EST) Free T4 3.0(H) 0.8 - 1.8 ng/dl [facility] 10/22/2004 18:1 3 EST 10/22/2004 18:16 EST True Ledesma MD CHEMISTRY & BLOOD GAS ORDERABLES Performing Organization Address City/State/[facility] Co de Phone Number [facility] [address] [place] [address] * PROFILE (10/22/2004 18:13 EST) ABO and Rh Type A POS FLE [facility] Antibody Screen Neg [facility] WBC 7.47 4.0 - 12.4 K/cmm [facility] RBC 4.59 3.86 - 5.04 M/cmm [facility] Hemoglobin 12.5 11.6 - 15.2 gm/dl [facility] HCT 37.1 34.9 - 44.4 % [facility] MCV 81 81 - 98 fl [facility] MCH 27.2 26.7 - 33.3 pg [facility] MCHC 33.6 32.1 - 35.9 gm/dl [facility] PLT 216 141 - 320 K/cmm [facility] RDW-CV 12.7 11.7 - 14.6 % [facility] % Neutrophils 59.3 45.5 - 79.7 % [facility] % Lymphocytes 31.8 15.0 - 46.8 % [facility] % Monocytes 6.4 1.8 - 12.0 % [facility] % Eosinophils 1.8 0.6 - 6.9 % [facility] % Basophils 0.7 0.2 - 1.4 % [facility] ABS Neutrophils 4.43 2.20 - 8.85 K/cmm [facility] ABS Lymphs 2.37 1.09 - 3.30 K/cmm [facility] ABS Monocytes 0.48 0.1 - 0.8 K/cmm [facility] ABS Eosinophils 0.13 0.03 - 0.61 K/cmm [facility] ABS Basophils 0.05 0.01 - 0.11 K/cmm [facility] Type of Diff: Automated [facility] Hepatitis B Surface Ag Neg [facility] Syphilis Sero (RPR) NONREACT. NR Dils [facility] Rubella IgG Scr Antibody detected [facility] 10/22/2004 18:1 3 EST 10/22/2004 18:16 EST True Ledesma MD PACKAGES & DNA RI OBE ORDERABLES [facility] [address] [place] [address] documented in this encounter Visit Diagnoses Not on filedocumented in this encounter Care Teams Record Cutter Relationship Specialty Start Date End Date Shannan Vieyra MD PCP - General 04/08/09 03/15/19 documented as of this encounter
--- OUTSIDE RECORDS SUMMARY | 2024-05-24 15:30 | XMS_ITS | Encounter Summary ---
Author Organization [facility] Address [address] [place] [address] Care Team Providers Care Facilities Mechanical Design Engineer Name Role Phone Unavailable Primary Care Provider Unavailabl e Encounter Details Date Type Department Care Team (Late st Contact Info) Description 02/25/2005 13:43 EDT Hospital Encounter [address] [address] Jame Sanders MD [address] [place] [address], [address] [place] [phone] Discharge Disposition: Auto Discharge Social History Tobacco [...] Procedure Name Priority Date/Time Associated Diagnosis Comments RAD US ABDOMEN ONE ORGAN/QUADRANT Routine 02/25/2005 14:13 EDT BACTERIAL CULTURE, URINE Routine 02/25/2005 13:45 EDT TSH Routine 02/25/2005 13:45 EDT T4 FREE Routine 02/25/2005 13:45 EDT documented in this encounter Results * RAD US ABDOMEN ONE ORGAN/QUADRANT (02/25/2005 14:13 EDT) Anatomical Region Laterality Modality Other 02/25/2005 14:1 3 EDT Impressions 06/09/2009 10:28 EDT IMPRESSION: Persistent cholelithiasis, similar to the previous study. /[facility] Narrative 06/09/2009 10:28 EDT ABD U/S, ??RUQ PAIN,HISTORY OF PYELONEPHRITIS ??R/O HYDRONEPHROSIS/MEHUL LITHIASIS. PT IS CURRENTLY .(MVP) ??RAMON TO FAX REQ [id number] RIGHT UPPER QUADRANT ULTRASOUND: 02/25/05 Scans of the right upper quadrant are performed and compared with the prior study of 06/06/04. The liver, once again, appears normal and is normal-sized. The gallbladder is moderately distended and contains multiple stones, similar in appearance to the previous study, the largest stone being about 1.1cm in diameter. No gallbladder wall thickening or pericholecystic fluid. No biliary ductal dilatation. The common hepatic duct measures 2.4mm in diameter. echocardiac activity was incidentally noted in the patient's . Procedure Note Riki Moyer, - 06/09/2009 ABD U/S, RUQ PAIN,HISTORY OF PYELONEPHRITIS R/O HYDRONEPHROSIS/MEHUL LITHIASIS. PT IS CURRENTLY .(MVP) RAMON TO FAX REQ [id number] RIGHT UPPER QUADRANT ULTRASOUND: 02/25/05 Scans of the right upper quadrant are performed and compared with the prior study of 06/06/04. The liver, once again, appears normal and is normal-sized. The gallbladder is moderately distended and contains multiple stones, similar in appearance to the previous study, the largest stone being about 1.1cm in diameter. No gallbladder wall thickening or pericholecystic fluid. No biliary ductal dilatation. The common hepatic duct measures 2.4mm in diameter. echocardiac activity was incidentally noted in the patient's . IMPRESSION IMPRESSION: Persistent cholelithiasis, similar to the previous study. /[facility] Jame Sanders MD IMG US ORDERABLES * BACTERIAL CULTURE, URINE (02/25/2005 13:45 EDT) Specimen Description Urine [facility] Result Less than 10,000 CFU/ml Mixed gram positive growth [facility] Report Status Final [id number] [facility] 02/25/2005 13:4 5 EDT 02/25/2005 13:47 EDT Jame Sanders MD MICROBIOLOGY - GEN ERAL ORDERABLES [facility] [address] [place] [address] * (ABNORMAL) TSH (02/25/2005 13:45 EDT) TSH <0.02(L) 0.35 - 5.50 uIU/ml [facility] 02/25/2005 13:4 5 EDT 02/25/2005 13:47 EDT Jame Sanders MD CHEMISTRY & BLOOD GAS ORDERABLES Performing Organization Address City/[facility]/ZIP Co de Phone Number [facility] [address] [place] [address] * (ABNORMAL) T4 FREE (02/25/2005 13:45 EDT) Free T4 2.0(H) 0.8 - 1.8 ng/dl [facility] 02/25/2005 13:4 5 EDT 02/25/2005 13:47 EDT Jame Sanders MD CHEMISTRY & BLOOD GAS ORDERABLES Performing Organization Address City/[facility]/ZIP Co de Phone Number [facility] [address] [place] [address] documented in this encounter Visit Diagnoses Not on filedocumented in this encounter
--- OUTSIDE RECORDS SUMMARY | 2024-05-24 15:30 | XMS_ITS | Encounter Summary ---
Author Organization [facility] Address [address] [place] [address] Care Team Providers Care Dinkey Skinner Name Role Phone Shannan Vieyra MD Primary Care Provider Unavail able Encounter Details Date Type Department Care Team (Late st Contact Info) Description 12/04/2007 Before PRISM Converted Visit (Maple) [facility] - Maple conversion [address] [place] [address] Juan [facility] [address] [place] [phone] Social History Tobacco Use Types Packs/Day Years Used Date Smoking Tobacco: Never Assessed Sex and Gender Information Value Date Recorded Sex Assigned at Not on file Gender Identity Not on file Sexual Orientation Not on file documented as of this encounter Progress Notes * Juan Pablo Toth MD - 08/19/2009 2101 EST DIVISION OF ENDOCRINOLOGY PROGRESS/FOLLOWUP NOTE - 12/04/2007 LYNDON Kerr comes in today for evaluation of her hyperthyroidism, recently treated with I-131. This patient has a long history of hyperthyroidism inadequately controlled on oral agents. In October she had an overly suppressed TSH with a free T4 of 5.9 ng/dL, and we elected to definitively treat this patient with I-131 ablation after discussing the other options. On November 08, the patient received 10.5 millicuries of I-131 as the 24-hour uptake was 85.9%. She comes in today three and a half weeks later for assessment. The patient does not feel a whole lot better. She is still a little jittery, although she does not have any palpitations. She has no heat or cold intolerance. No diarrhea or constipation. Of note is the fact that she has continued to lose weight. About a month ago she weighed 156. Today she weighs 1 48, but she denies most symptomology. MEDICATIONS The patient is still taking atenolol. The methimazole was stopped. She is still on diltiazem and a control pill. OBJECTIVE Her physical reveals that she weighs 148. Her pulse is 140. Blood pressure is 192/108 today. All ofthe aboveI think are probably related to continuing hyperthyroidism. Pending her laboratory results, I will call her. I think I am going to double her atenolol. She has no exophthalmos or proptosis. I do not feel very much thyroid tissue. She has no tremor. However, her palms are sweaty and warm. IMPRESSION/PLAN Continuing hyperthyroidism. Pending todays laboratory results, will see the patient in nine weeks, which will be three months from the time of therapy, and also pending these results I will call her to see if perhaps increasing the dose of atenolol will improve the way her blood pressure and pulse are reacting. Signed by Juan Pablo Toth MD 12/06/2007 12:25 Juan Pablo Toth MD [facility] supervisor carpenters D: - Juan Pablo Toth MD - DM Job ID: [id number] Doc ID: [id number] cc: Shannan Vieyra MD ADDENDUM - still toxic Asked to double atenolol 12/04/2007 12:09 T4, Free H 4.1 ng/dL 0.8-1.8 Final * 12/04/2007 12:09 TSH L <0.02 uIU/m... 0.35-5.00 Final * documented in this encounter Plan of Treatment Not on file documented as of this encounter Visit Diagnoses Not on filedocumented in this encounter Care Teams Dinkey Skinner Relationship Specialty Start Date End Date Shannan Vieyra MD PCP - General 04/08/09 03/15/19 documented as of this encounter
--- OUTSIDE RECORDS SUMMARY | 2024-05-24 15:30 | XMS_ITS | Encounter Summary ---
Author Organization [facility] Address [address] [place] [address] Care Team Providers Care Vacuum Conditioner Operator Name Role Phone Unavailable Primary Care Provider Unavailabl e Encounter Details Date Type Department Care Team (Late st Contact Info) Description 02/10/2005 14:48 EDT Hospital Encounter [address] [address] Denice Martinez MD [address] [place] [address], [address] [place] [phone] Social History Tobacco Use Types Packs/Day Years Used Date Smoking Tobacco: Never Smokeless Tobacco: Never Alcohol Use Standard Drinks/Week Comments No 0 (1 standard drink = 0.6 oz pur e alcohol) [facility] Utilities Answer Date Recorded In the past 12 months has [employer], gas, oil, or water [employer] threatened to shut off services in your [...] place to sleep or slept in a residential (including now)? No 10/28/2023 Interpersonal Safety Answer [...] Procedure Name Priority Date/Time Associated Diagnosis Comments CREATININE Routine 02/10/2005 14:59 EDT COMPLETE BLOOD COUNT Routine 02/10/2005 14:59 EDT URIC ACID Routine 02/10/2005 14:59 EDT BUN Routine 02/10/2005 14:59 EDT ALT Routine 02/10/2005 14:59 EDT AST Routine 02/10/2005 14:59 EDT documented in this encounter Results * URIC ACID (02/10/2005 14:59 EDT) Uric Acid 3.8 2.2 - 7.7 mg/dl [facility] Comment:Slight hemolysis 02/10/2005 14:5 9 EDT 02/10/2005 15:01 EDT Denice Martinez MD CHEMISTRY & BLOOD GA S ORDERABLES Performing Organization Address [facility] Co de Phone Number [facility] [address] [place] [address] * (ABNORMAL) CREATININE (02/10/2005 14:59 EDT) Creatinine 0.4(L) 0.7 - 1.5 mg/dl [facility] Comment:Slight hemolysis 02/10/2005 14:5 9 EDT 02/10/2005 15:01 EDT Denice Martinez MD HISTORICAL LAB FOR S Q LOAD Performing Organization Address [facility] de Phone Number [facility] [address] [place] [address] * (ABNORMAL) HEMAGRAM (02/10/2005 14:59 EDT) WBC 8.38 4.0 - 12.4 K/cmm [facility] RBC 4.01 3.86 - 5.04 M/cmm [facility] Hemoglobin 11.3(L) 11.6 - 15.2 gm/dl [facility] HCT 32.7(L) 34.9 - 44.4 % [facility] MCV 82 81 - 98 fl [facility] MCH 28.3 26.7 - 33.3 pg [facility] MCHC 34.7 32.1 - 35.9 gm/dl [facility] PLT 221 141 - 320 K/cmm [facility] RDW-CV 13.9 11.7 - 14.6 % [facility] 02/10/2005 14:5 9 EDT 02/10/2005 15:01 EDT Denice Martinez MD HEMATOLOGY & PF4 ORD ERABLES Performing Organization Address City/[facility]/ZIP Co de Phone Number [facility] [address] [place] [address] * BUN (02/10/2005 14:59 EDT) BUN 12 10 - 26 mg/dl [facility] Comment:Slight hemolysis 02/10/2005 14:5 9 EDT 02/10/2005 15:01 EDT Denice Martinez MD CHEMISTRY & BLOOD GA S ORDERABLES Performing Organization Address City/[facility] Co de Phone Number [facility] [address] [place] [address] * AST (02/10/2005 14:59 EDT) AST 25 15 - 46 U/L [facility] Comment:Slight hemolysis 02/10/2005 14:5 9 EDT 02/10/2005 15:01 EDT Denice Martinez MD CHEMISTRY & BLOOD GA S ORDERABLES Performing Organization Address City/[facility] Co de Phone Number [facility] [address] [place] [address] * ALT (02/10/2005 14:59 EDT) ALT 13 9 - 52 U/L [facility] Comment:Slight hemolysis 02/10/2005 14:5 9 EDT 02/10/2005 15:01 EDT Denice Martinez MD CHEMISTRY & BLOOD GA S ORDERABLES [facility] [address] [place] [address] documented in this encounter Visit Diagnoses Not on filedocumented in this encounter
--- OUTSIDE RECORDS SUMMARY | 2024-05-24 15:30 | XMS_ITS | Encounter Summary ---
Author Organization [facility] Address [address] [place] [address] Care Team Providers Care Physician Office Nurse Name Role Phone Unavailable Primary Care Provider Unavailabl e Encounter Details Date Type Department Care Team (Latest Contact Info) Description 11/19/2006 14:07 EST Hospital Encounter [address] [address] Humaira Gallagher MD [address] [place] [phone] Discharge Disposition: Auto Discharge Social History Tobacco [...] Procedure Name Priority Date/Time Associated Diagnosis Comments FOOT 3 OR MORE VIEWS 11/19/2006 16:38 EST documented in this encounter Results * FOOT 3 OR MORE VIEWS (11/19/2006 16:38 EST) Anatomical Region Laterality Modality Other 11/19/2006 16:3 8 EST Narrative 04/19/2009 6:00 EDT *[facility]-[id number]* 26 year old wiht blow to foot, 5th digit pain limping about RIGHT FOOT, 3+ VIEWS: ??11/19/06 HISTORY: ??Blow to foot, 5th digit pain. ??Rule out fracture. FINDINGS: ??Three views of the right foot show two incomplete fracture lines obliquely oriented at the proximal 5th phalanx. ??No dislocation or angulation is evident. ??This was communicated to Dr. Gallagher. D: ? 11/19/06 T: ? 11/22/06 I have personally reviewed the images and the above interpretation and agree with the findings. Procedure Note Randal Jensen MD / Michelle Coelho MD - 04/19/2009 *[facility]-[id number]* 26 year old wiht blow to foot, 5th digit pain limping about RIGHT FOOT, 3+ VIEWS: 11/19/06 HISTORY: Blow to foot, 5th digit pain. Rule out fracture. FINDINGS: Three views of the right foot show two incomplete fracture lines obliquely oriented at the proximal 5th phalanx. No dislocation or angulation is evident. This was communicated to Dr. Gallagher. I have personally reviewed the images and the above interpretation and agree with the findings. Humaira Gallagher MD IMG DIAGNOSTIC ANDIE GING ORDERABLES documented in this encounter Visit Diagnoses Not on filedocumented in this encounter
--- OUTSIDE RECORDS SUMMARY | 2024-05-24 15:30 | XMS_ITS | Encounter Summary ---
Author Organization [facility] Address [address] [place] [address] Care Team Providers Care 3Rd Mate Name Role Phone Shannan Vieyra MD Primary Care Provider Unavail able Encounter Details Date Type Department Care Team (Late st Contact Info) Description 10/14/2004 Results Only [facility] - Maple conversion [address] [place] [address] Toño Hernadez MD [address] [place] [address] Social History Tobacco Use Types Packs/Day Years Used Date Smoking Tobacco: Never Assessed Sex and Gender Information Value Date Recorded Sex Assigned at Not on file Gender Identity Not on file Sexual Orientation Not on file documented as of this encounter Plan of Treatment Not on file documented as of this encounter Procedures Procedure Name Priority Date/Time Associated Diagnosis Comments CYTOPATHOLOGY Routine 10/14/2004 0:00 EST documented in this encounter Results * CYTOPATHOLOGY (10/14/2004 0:00 EST) Pathology Report: CYTOPATHOLOGY REPORT Reports generated via electronic interface contain original data; however they are lacking the format of the original report. Caution should be taken when reading/interpreti ng unformatted reports. Name: ? DORIS KERR ? Accession #: ? [id number] : ? 1980 (Age: 24) ??F ?Collect Date: ? 10/14/2004 Location: ? [facility] ? Receive Date: ? 10/16/2004 Provider: ?TOÑO HERNADEZ MD Copy to: ? Specimen/Source: ?ThinPrep Pap Test, Cervix/Endocervix Last Menstrual Period: ? 07/22/04 Menstrual/Pregnanc y Status: ? Hormonal/Contracep tive Status: ? Yes: [place] ? SPECIMEN ADEQUACY ? Satisfactory for Evaluation - transformation zone component present GENERAL CATEGORIZATION ? Negative for Intraepithelial Lesion or Malignancy INTERPRETATION ? Reactive cellular changes associated with inflammation present (includes repair). ? Document reviewed and electronically signed by: ? SHAYE LYNN MD [facility] ? Report Date: ??10/22/2004 14:30 End of Report [facility] 10/14/2004 10/16/2004 Toño Hernadez MD PATHOLOGY ORDERAB LES Performing Organization Address City/State/[facility] Co de Phone Number [facility] [address] [place] [address] documented in this encounter Visit Diagnoses Not on filedocumented in this encounter Care Teams 3Rd Mate Relationship Specialty Start Date End Date Shannan Vieyra MD PCP - General 04/08/09 03/15/19 documented as of this encounter
--- OUTSIDE RECORDS SUMMARY | 2024-05-24 15:30 | XMS_ITS | Encounter Summary ---
Author Organization [facility] Address [address] [place] [address] Care Team Providers Care Financial Aid Advisor Name Role Phone Unavailable Primary Care Provider Unavailabl e Encounter Details Date Type Department Care Team (Late st Contact Info) Description 01/19/2005 16:47 EDT Hospital Encounter [facility] - [address] [address] Denice Martinez MD [address] [place] [address] [address] [place] [phone] Social History Tobacco Use Types Packs/Day Years Used Date Smoking Tobacco: Never Smokeless Tobacco: Never Alcohol Use Standard Drinks/Week Comments No 0 (1 standard drink = 0.6 oz pur e alcohol) [facility] Utilities Answer Date Recorded In the past 12 months has [facility] [employer], gas, oil, or water [employer] threatened to shut off services in your [...] place to sleep or slept in a mcc (including now)? No 10/28/2023 Interpersonal Safety Answer [...] Procedure Name Priority Date/Time Associated Diagnosis Comments PARVOVIRUS B19 AB, IGG, IGM, S Routine 01/19/2005 16:49 EDT documented in this encounter Results * PARVOVIRUS ANTIBODY (01/19/2005 16:49 EDT) Parvovirus IgG Ab 3.28Unit: index(Note) Positive (>1.10) ? -- EXPECTED VALUES -- ? (Ref Range) <0.90 ? TEST PERFORMED OR REFERRED BY [facility] ? [address] ? [place] [address] ? Desk Pen Set Assembler: ? Pawan AAnay Saunders, M.D. ? [facility] Parvovirus IgM Ab 0.13Unit: index(Note) -- EXPECTED VALUES -- ? (Ref Range) <0.90 ? [facility] Interpretation (Note) Results suggest past infection. ? TEST PERFORMED OR REFERRED BY [facility] ? [address] ? [place] [address] ? Desk Pen Set Assembler: ? Pawan Saunders M.D. ? [facility] 01/19/2005 16:4 9 EDT 01/19/2005 17:03 EDT Denice Martinez MD IMMUNOLOGY AND NAFISA DUBOIS ORDERABLES [facility] [address] [place] [address] documented in this encounter Visit Diagnoses Not on filedocumented in this encounter
--- OUTSIDE RECORDS SUMMARY | 2024-05-24 15:30 | XMS_ITS | Encounter Summary ---
Author Organization [facility] Address [address] [place] [address] Care Team Providers Care Fire Code Inspector Name Role Phone Shannan Vieyra MD Primary Care Provider Unavail able Encounter Details Date Type Department Care Team (Late st Contact Info) Description 11/07/2007 Results Only [facility] - [address] [address] Juan Pablo Toth MD [address] [place] [address] [address] [place] [phone] Social History Tobacco Use Types Packs/Day Years Used Date Smoking Tobacco: Never Assessed Sex and Gender Information Value Date Recorded Sex Assigned at Not on file Gender Identity Not on file Sexual Orientation Not on file documented as of this encounter Plan of Treatment Not on file documented as of this encounter Procedures Procedure Name Priority Date/Time Associated Diagnosis Comments TEST, URINE Routine 11/07/2007 12:06 EST documented in this encounter Results * TEST, URINE (11/07/2007 12:06 EST) Result-Pregnanc y Test, Ur Neg [facility] 11/07/2007 12:0 6 EST 11/07/2007 12:07 EST Juan Pablo Toth MD URINALYSIS ORDERAB LES [facility] [address] [place] [address] documented in this encounter Visit Diagnoses Not on filedocumented in this encounter Care Teams Fire Code Inspector Relationship Specialty Start Date End Date Shannan Vieyra MD PCP - General 04/08/09 03/15/19 documented as of this encounter
--- OUTSIDE RECORDS SUMMARY | 2024-05-24 15:30 | XMS_ITS | Encounter Summary ---
Author Organization [facility] Address [address] [place] [address] Care Team Providers Care Orientor Name Role Phone Shannan Winter MD Primary Care Provider Unavail able Encounter Details Date Type Department Care Team (Late st Contact Info) Description 06/29/2005 Results Only [facility] - Maple conversion [address] [place] [address] Julita Martinez MD [address] [place] [address], [facility] [address] [place] [phone] Social History Tobacco Use Types Packs/Day Years Used Date Smoking Tobacco: Never Assessed Sex and Gender Information Value Date Recorded Sex Assigned at Not on file Gender Identity Not on file Sexual Orientation Not on file documented as of this encounter Plan of Treatment Not on file documented as of this encounter Procedures Procedure Name Priority Date/Time Associated Diagnosis Comments CYTOPATHOLOGY Routine 06/29/2005 0:00 EDT documented in this encounter Results * CYTOPATHOLOGY (06/29/2005 0:00 EDT) Pathology Report: CYTOPATHOLOGY REPORT Reports generated via electronic interface contain original data; however they are lacking the format of the original report. Caution should be taken when reading/interpreti ng unformatted reports. Name: ? DORIS KERR ? Accession #: ? [id number] : ? 1980 (Age: 25) ??F ?Collect Date: ? 06/29/2005 Location: ? [facility] ? Receive Date: ? 06/30/2005 Provider: ?JULITA MARTINEZ MD Copy to: ?SHANNAN WINTER MD ? Specimen/Source: ?ThinPrep Pap Test, Cervix/Endocervix, processed on [employer] ThinPrep Imaging System, with manual evaluation Last Menstrual Period: ? Menstrual/Pregnanc y Status: ? Post Hormonal/Contracep tive Status: ? Yes: [place] ? SPECIMEN ADEQUACY ? Satisfactory for Evaluation - transformation zone component present GENERAL CATEGORIZATION ? Negative for Intraepithelial Lesion or Malignancy INTERPRETATION ? Reactive cellular changes associated with inflammation present (includes repair). ? Document reviewed and electronically signed by: ? LOIS DURAN MD ? Report Date: ??07/08/2005 13:44 End of Report [facility] 06/29/2005 06/30/2005 Julita Martinez MD PATHOLOGY ORDERABLES [facility] [address] [place] [address] documented in this encounter Visit Diagnoses Not on filedocumented in this encounter Care Teams Orientor Relationship Specialty Start Date End Date Shannan Winter MD PCP - General 04/08/09 03/15/19 documented as of this encounter
--- OUTSIDE RECORDS SUMMARY | 2024-05-24 15:30 | XMS_ITS | Encounter Summary ---
Author Organization [facility] Address [address] [place] [address] Care Team Providers Care Optical Effects Camera Operator Name Role Phone Unavailable Primary Care Provider Unavailabl e Encounter Details Date Type Department Care Team (Late st Contact Info) Description 09/29/2005 15:30 EST Hospital Encounter [facility] - Other [address] [place] [address] Sita Dunn Social History Tobacco Use Types Packs/Day Years Used Date Smoking Tobacco: Never Smokeless Tobacco: Never Alcohol Use Standard Drinks/Week Comments No 0 (1 standard drink = 0.6 oz pur e alcohol) [facility] Utilities Answer Date Recorded In the [...] place to sleep or slept in a long term (including now)? No 10/28/2023 Interpersonal Safety Answer [...]
--- OUTSIDE RECORDS SUMMARY | 2024-05-24 15:30 | XMS_ITS | Encounter Summary ---
Author Organization [facility] Address [address] [place] [address] Care Team Providers Care Tuckpointer Cleaner Caulker Name Role Phone Unavailable Primary Care Provider Unavailabl e Encounter Details Date Type Department Care Team (Late st Contact Info) Description 01/06/2005 10:52 EST Hospital Encounter [facility] - [address] [address] Denice Martinez MD [address] [place] [address] 4 [place] [phone] Social History Tobacco Use Types Packs/Day Years Used Date Smoking Tobacco: Never Smokeless Tobacco: Never Alcohol Use Standard Drinks/Week Comments No 0 (1 standard drink = 0.6 oz pur e alcohol) [facility] Utilities Answer Date Recorded In the past 12 months has [employer] [facility] [employer], gas, oil, or water [employer] threatened to shut off services in your [...] Priority Date/Time Associated Diagnosis Comments TSH Routine 01/06/2005 10:55 EST T4 FREE Routine 01/06/2005 10:55 EST documented in this encounter Results * (ABNORMAL) TSH (01/06/2005 10:55 EST) TSH <0.02(L) 0.35 - 5.50 uIU/ml [facility] 01/06/2005 10:5 5 EST 01/06/2005 10:56 EST Denice Martinez MD CHEMISTRY & BLOOD GA S ORDERABLES [facility] [address] [place] [address] * (ABNORMAL) T4 FREE (01/06/2005 10:55 EST) Free T4 2.2(H) 0.8 - 1.8 ng/dl [facility] 01/06/2005 10:5 5 EST 01/06/2005 10:56 EST Denice Martinez MD CHEMISTRY & BLOOD GA S ORDERABLES [facility] [address] [place] [address] documented in this encounter Visit Diagnoses Not on filedocumented in this encounter
--- OUTSIDE RECORDS SUMMARY | 2024-05-24 15:30 | XMS_ITS | Encounter Summary ---
Author Organization [facility] Address [address] [place] [address] Care Team Providers Care Fitter Hand Name Role Phone Shannan Winter MD Primary Care Provider Unavail able Encounter Details Date Type Department Care Team (Late st Contact Info) Description 10/25/2007 Before PRISM Converted Visit (Maple) [facility] - Maple conversion [address] [place] [address] Kar Encinas MD [address] [facility], [facility] [address] [place] [phone] Social History Tobacco Use Types Packs/Day Years Used Date Smoking Tobacco: Never Assessed Sex and Gender Information Value Date Recorded Sex Assigned at Not on file Gender Identity Not on file Sexual Orientation Not on file documented as of this encounter Procedure Notes * Kar Encinas MD - 08/19/2009 0540 EST [facility] Colonoscopy Procedure Report Attending Physician: KAR ENCINAS MD Physician: SHANNAN WINTER MD Exam Date:10/25/2007 Introduction: A 27 year old female patient presents for an outpatient Colonoscopy Indications: ?? Diarrhea (787.91). Consent: benefits, risks, and alternatives to the procedure were discussed and informed consent wasobtained from the patient. Preparation: ?? EKG, pulse, pulse oximetry and blood pressure were monitored throughout the procedure. ?? ASA Classification: Class 2 - Patient has mild to moderate systemic disturbance that may or may not be related to the disorder requiring surgery. Medications: ?? Versed 3 mg IV before the procedure ?? Demerol 75 mg IV before the procedure ?? Propofol administered by anesthesia. Rectal Exam: ?? Normal rectal exam. Procedure: endoscope was passed through the anus under direct visualization and advanced without difficulty to the terminal ileum, confirmed by landmarks. The scope was withdrawn and the mucosa was carefully examined.The quality of the preparation was good. The views were good. The patient's toleration of the procedure was good. Retroflexion was performed. Findings: hemorrhoids were found in the rectum. Otherwise, the colon appeared to be normal. Multiple biopsies were taken from the ascending colon, a descending colon, sigmoid, and a rectum. Unplanned Events: There were no unplanned events. Summary: ?? Internal hemorrhoids in the rectum (455.0), Recommendations: ?? Follow-up on the results of the biopsy specimens. Performed By: The procedure was performed by Dr. Kar Encinas. Report electronically signed by Dr. KAR ENCINAS MD, M.D. on 10/25/2007 at 09:03 [employer] Document ID: [id number] * Kar Encinas MD - 08/19/2009 0540 EST [facility] Esophagogastroduodenoscopy Procedure Report Attending Physician: KAR ENCINAS MD Physician: SHANNAN WINTER MD Exam Date:10/25/2007 Introduction: A 27 year old female patient presents for an outpatient Esophagogastroduodenoscopy Indications: ?? Diarrhea (787.91). ?? Unremarkable colonoscopy performed just before EGD. Consent: benefits, risks, and alternatives to the procedure were discussed and informed consent wasobtained from the patient. Preparation: Pulse, pulse oximetry and blood pressure were monitored throughout the procedure. ASA Classification: Class 2 - Patient has mild to moderate systemic disturbance that may or may not be related to the disorder requiring surgery. Medications: ?? Propofol administered by anesthesia. Procedure: The endoscope was passed through the mouth under direct visualization and advanced without difficulty to the 3rd portion of the duodenum. The scope was withdrawn and the mucosa was carefully examined. The views were good. The patient's toleration of the procedure was good. Findings: Esophagus: The esophagus appeared to be normal. No evidence of esophagitis, Chang's esophagus, and stenosis in the esophagus. Stomach: stomach appeared to be normal. No evidence of ulcers, tumors, and erythematous mucosae in the stomach. Duodenum: The duodenum appeared to be normal. Multiple biopsies were taken. Events: There were no unplanned events. Summary: ?? Normal esophagus. ?? Normal stomach. ?? Normal duodenum. Recommendations: ?? Follow-up on the results of the biopsy specimens. ?? If evidence of Celiac disease seen on biopsy, then treat accordingly with referral to manager sports for gluten-free diet and repeat EGD with biopsy in 6 months. Performed By: The procedure was performed by Dr. Kar Encinas. Report electronically signed by Dr. KAR ENCINAS MD, M.D. on 10/25/2007 at 09:16 [facility] Document ID: [id number] documented in this encounter Plan of Treatment Not on file documented as of this encounter Visit Diagnoses Not on filedocumented in this encounter Care Teams Fitter Hand Relationship Specialty Start Date End Date Shannan Winter MD PCP - General 04/08/09 03/15/19 documented as of this encounter
--- OUTSIDE RECORDS SUMMARY | 2024-05-24 15:30 | XMS_ITS | Encounter Summary ---
Author Organization [facility] Address [address] [place] [address] Care Team Providers Care Certified Home Health Aide Name Role Phone Unavailable Primary Care Provider Unavailabl e Encounter Details Date Type Department Care Team (Late st Contact Info) Description 12/03/2005 13:12 EST Hospital Encounter [facility] - Maple conversion [address] [place] [address] Leida Cerda PA-C [address] [place] [address] [address] [place], [place] [address] Social History Tobacco Use Types Packs/Day Years Used Date Smoking Tobacco: Never Smokeless Tobacco: Never Alcohol Use Standard Drinks/Week Comments No 0 (1 standard drink = 0.6 oz pur e alcohol) [facility] Utilities Answer Date Recorded In the past [...] place to sleep or slept in a long-term (including now)? No 10/28/2023 Interpersonal Safety Answer [...] Associated Diagnosis Comments COMPLETE BLOOD COUNT Routine 12/03/2005 13:57 EST T3, TOTAL Routine 12/03/2005 13:57 EST TSH Routine 12/03/2005 13:57 EST T4 FREE Routine 12/03/2005 13:57 EST BASIC METABOLIC PANEL (BMP) Routine 12/03/2005 13:57 EST documented in this encounter Results * (ABNORMAL) TSH (12/03/2005 13:57 EST) TSH <0.02(L) 0.35 - 5.50 uIU/ml [facility] 12/03/2005 13:5 7 EST 12/03/2005 17:10 EST Leida Cerda PA-C CHEMISTRY & BLOOD GAS ORDERABLES Performing Organization Address [facility] Co de Phone Number [facility] [address] [place] [address] * (ABNORMAL) T3, TOTAL (12/03/2005 13:57 EST) T3, Total 466(H) 60 - 181 ng/dl [facility] 12/03/2005 13:5 7 EST 12/03/2005 17:10 EST Leida Cerda PA-C CHEMISTRY & BLOOD GAS ORDERABLES Performing Organization Address [facility] Co de Phone Number [facility] [address] [place] [address] * (ABNORMAL) T4 FREE (12/03/2005 13:57 EST) Free T4 2.9(H) 0.8 - 1.8 ng/dl [facility] 12/03/2005 13:5 7 EST 12/03/2005 17:10 EST Leida Cerda PA-C CHEMISTRY & BLOOD GAS ORDERABLES Performing Organization Address [facility] de Phone Number [facility] [address] [place] [address] * (ABNORMAL) HEMAGRAM (12/03/2005 13:57 EST) WBC 4.99 4.0 - 12.4 K/cmm [facility] RBC 5.15(H) 3.86 - 5.04 M/cmm [facility] Hemoglobin 13.8 11.6 - 15.2 gm/dl [facility] HCT 40.9 34.9 - 44.4 % [facility] MCV 79(L) 81 - 98 fl [facility] MCH 26.8 26.7 - 33.3 pg [facility] MCHC 33.7 32.1 - 35.9 gm/dl [facility] PLT 213 141 - 320 K/cmm [facility] RDW-CV 14.6 11.7 - 14.6 % [facility] 12/03/2005 13:5 7 EST 12/03/2005 17:10 EST Leida Cerda PA-C HEMATOLOGY & PF4 ORDERABLES Performing Organization Address [facility] Co de Phone Number [facility] [address] [place] [address] * (ABNORMAL) BASIC METABOLIC PANEL (12/03/2005 13:57 EST) Sodium 138 136 - 145 mEq/L [facility] Potassium 4.6 3.5 - 5.0 mEq/L [facility] Chloride 107 96 - 110 mEq/L [facility] CO2 25 24 - 32 mEq/L [facility] BUN 11 10 - 26 mg/dl [facility] Creatinine 0.6(L) 0.7 - 1.5 mg/dl [facility] Calcium 9.1 8.5 - 10.5 mg/dl [facility] Calculated Calcium 9.7 8.5 - 10.5 mg/dl [facility] Glucose, Serum 102 70 - 110 mg/dl [facility] Fasting? No [facility] 12/03/2005 13:5 7 EST 12/03/2005 17:10 EST Leida Cerda PA-C CHEMISTRY & BLOOD GAS ORDERABLES Performing Organization Address City/[facility] Co de Phone Number [facility] [address] [place] [address] documented in this encounter Visit Diagnoses Not on filedocumented in this encounter
--- OUTSIDE RECORDS SUMMARY | 2024-05-24 15:30 | XMS_ITS | Encounter Summary ---
Author Organization [facility] Address [address] [place] [address] Care Team Providers Care Computer Support Analyst Name Role Phone Unavailable Primary Care Provider Unavailabl e Encounter Details Date Type Department Care Team (Latest Contact Info) Description 08/25/2005 15:23 EST Hospital Encounter [facility] - Other [address] [place] [address] Shannan Vieyra MD Discharge Disposition: Auto Discharge Social History Tobacco [...]
--- OUTSIDE RECORDS SUMMARY | 2024-05-24 15:30 | XMS_ITS | Encounter Summary ---
Author Organization [facility] Address [address] [place] [address] Care Team Providers Care Slab Tripper Name Role Phone Unavailable Primary Care Provider Unavailabl e Encounter Details Date Type Department Care Team (Late st Contact Info) Description 09/05/2007 11:06 [facility] Hospital Encounter [facility] - Maple conversion [address] [place] [address] Shannan Vieyra MD Social History Tobacco Use Types Packs/Day Years Used Date Smoking Tobacco: Never Smokeless Tobacco: Never Alcohol Use Standard Drinks/Week Comments No 0 (1 standard drink = 0.6 oz pur e alcohol) [facility] Utilities Answer Date Recorded In [...] place to sleep or slept in a fpc (including now)? No 10/28/2023 Interpersonal Safety Answer [...]
--- OUTSIDE RECORDS SUMMARY | 2024-05-24 15:30 | XMS_ITS | Encounter Summary ---
Author Organization [facility] Address [address] [place] [address] Care Team Providers Care Central Stores Attendant Name Role Phone Shannan Vieyra MD Primary Care Provider Unavail able Encounter Details Date Type Department Care Team (Late st Contact Info) Description 09/29/2005 Results Only [facility] [address] [address] Sita Dunn Social History Tobacco Use Types Packs/Day Years Used Date Smoking Tobacco: Never Assessed Sex and Gender Information Value Date Recorded Sex Assigned at Not on file Gender Identity Not on file Sexual Orientation Not on file documented as of this encounter Plan of Treatment Not on file documented as of this encounter Procedures Procedure Name Priority Date/Time Associated Diagnosis Comments GROUP A STREP CULTURE Routine 09/29/2005 12:36 EST documented in this encounter Results * CULTURE FOR GROUP A BETA STREPTOCOCCUS (09/29/2005 12:36 EST) Specimen Description Throat [facility] Result NO GROUP A BETA STREPTOCOCCI ISOLATED [facility] Report Status Final [id number] [facility] 09/29/2005 12:3 6 EST 09/29/2005 17:02 EST Sita Dunn MICROBIOLOGY - GENER AL ORDERABLES [facility] [address] [place] [address] documented in this encounter Visit Diagnoses Not on filedocumented in this encounter Care Teams Central Stores Attendant Relationship Specialty Start Date End Date Shannan Vieyra MD PCP - General 04/08/09 03/15/19 documented as of this encounter
--- OUTSIDE RECORDS SUMMARY | 2024-05-24 15:30 | XMS_ITS | Encounter Summary ---
Author Organization [facility] Address [address] [place] [address] Care Team Providers Care Natural Resources Professor Name Role Phone Unavailable Primary Care Provider Unavailabl e Encounter Details Date Type Department Care Team (Late st Contact Info) Description 11/14/2006 12:16 [facility] Hospital Encounter [facility] - Other [address] [place] [address] Denice Martinez MD [address] [place] [address] [address] [place] [phone] Discharge Disposition: Home or Self Care Social [...]
--- OUTSIDE RECORDS SUMMARY | 2024-05-24 15:30 | XMS_ITS | Encounter Summary ---
Author Organization [facility] Address [address] [place] [address] Care Team Providers Care Panel Flow Machine Operator Name Role Phone Unavailable Primary Care Provider Unavailabl e Encounter Details Date Type Department Care Team (Late st Contact Info) Description 09/23/2005 15:12 EST Hospital Encounter [facility] - Maple conversion [address] [place] [address] Pete Richey MD Social History Tobacco Use Types Packs/Day Years Used Date Smoking Tobacco: Never Smokeless Tobacco: Never Alcohol Use Standard Drinks/Week Comments No 0 (1 standard drink = 0.6 oz pur e alcohol) [facility] Utilities Answer Date Recorded In the [...] place to sleep or slept in a usp (including now)? No 10/28/2023 Interpersonal Safety Answer [...]
--- OUTSIDE RECORDS SUMMARY | 2024-05-24 15:30 | XMS_ITS | Encounter Summary ---
Author Organization [facility] Address [address] [place] [address] Care Team Providers Care New Car Get Ready Mechanic Name Role Phone Shannan Winter MD Primary Care Provider Unavail able Encounter Details Date Type Department Care Team (Late st Contact Info) Description 10/25/2007 Results Only [facility] Cardiology - [address] [place] [address] Miguel Devine MD PhD [address] [place] [address] [address] [place] [phone] Social History Tobacco Use Types Packs/Day Years Used Date Smoking Tobacco: Never Assessed Sex and Gender Information Value Date Recorded Sex Assigned at Not on file Gender Identity Not on file Sexual Orientation Not on file documented as of this encounter Plan of Treatment Not on file documented as of this encounter Procedures Procedure Name Priority Date/Time Associated Diagnosis Comments T3, TOTAL Routine 10/25/2007 11:04 EST TSH Routine 10/25/2007 11:04 EST T4 FREE Routine 10/25/2007 11:04 EST T4 Routine 10/25/2007 11:04 EST SURGICAL PATHOLOGY Routine 10/25/2007 0:00 EST documented in this encounter Results * (ABNORMAL) TSH (10/25/2007 11:04 EST) TSH <0.02(L) 0.35 - 5.00 uIU/mL [facility] 10/25/2007 11:0 4 EST 10/25/2007 11:06 EST Miguel Devine MD PhD CHEMIS TRY & BLOOD GAS ORDERABLES Performing Organization Address [facility] Phone Number [facility] [address] [place] [address] * (ABNORMAL) T4 (10/25/2007 11:04 EST) T4, Total 23.9(H) 4.5 - 10.9 ug/dL [facility] 10/25/2007 11:0 4 EST 10/25/2007 11:06 EST Miguel Devine MD PhD CHEMIS TRY & BLOOD GAS ORDERABLES Performing Organization Address [facility] Phone Number [facility] [address] [place] [address] * (ABNORMAL) T3, TOTAL (10/25/2007 11:04 EST) T3, Total >800(H) 60 - 181 ng/dL [facility] 10/25/2007 11:0 4 EST 10/25/2007 11:06 EST Miguel Devine MD PhD CHEMIS TRY & BLOOD GAS ORDERABLES Performing Organization Address [facility] Phone Number [facility] [address] [place] [address] * (ABNORMAL) T4 FREE (10/25/2007 11:04 EST) Free T4 5.9(H) 0.8 - 1.8 ng/dL [facility] 10/25/2007 11:0 4 EST 10/25/2007 11:06 EST Miguel Devine MD PhD CHEMIS TRY & BLOOD GAS ORDERABLES Performing Organization Address [facility] Phone Number [facility] [address] [place] [address] * SURGICAL PATHOLOGY (10/25/2007 0:00 EST) Pathology Report: SURGICAL PATHOLOGY REPORT Reports generated via electronic interface contain original data; however they are lacking the format of the original report. Caution should be taken when reading/interpreti ng unformatted reports. Name: ? MADHUDORIS Mykel ? Accession #: ? [id number] ? : ? 1980 (Age: 27) ??F ? Collect Date: ? 10/25/2007 ? Location: ? [facility] ? Receive Date: ? 10/25/2007 ? Provider: KAR ENCINAS MD Copy to: SHANNAN WINTER MD ? Final Pathologic Diagnosis: A. ?Colon, right, biopsies: 1. ?Colonic mucosa without significant abnormality. 2. ? Negative for active, chronic, or microscopic colitis. B. ?Colon, left, biopsies: 1. ?Colonic mucosa without significant abnormality. 2. ? Negative for active, chronic, or microscopic colitis. C. ?Rectum, biopsies: 1. ?Colonic mucosa without significant abnormality. 2. ? Negative for active, chronic, or microscopic colitis. D. ?Duodenum, biopsies: 1. ?Duodenal mucosa with mild increase in intraepithelial lymphocytes. See comment. ?? Comment: ? The biopsies from the duodenum reveal a patchy increase in intraepithelial lymphocytes. ??The villous architecture, however, is intact. ??This finding is non-specific and can be seen in a variety of conditions, including mild forms of gluten sensitive enteropathy, H. pylori gastritis, NSAID-induced injury, and peptic duodenitis. ??If clinical suspicion for gluten sensitive enteropathy exists, correlation with serology is essential. ??(Dr. Grigsby)/ljn Document reviewed and electronically signed by: DANNI GRIGSBY MD Report ??Date: 10/26/2007 18:08 By the signature above, the attending physician certifies that he/she has personally conducted a gross and/or microscopic examination of the described specimens and rendered or confirmed the above diagnosis. Specimen(s) Received: A. ?R colon B. ? L colon C. ? Rectum D. ? Duodenum Clinical History: ? Pt referred for colo/EGD for evaluation of chronic diarrhea; normal colonoscopy; R/O microscopic colitis; R/O sprue ? Gross Description: ? Received in Hollande's fixative labelled Copen and bx right colon are four portions of cardoza-pink soft tissue ranging from 0.2 x 0.1 x 0.1 cm to 0.9 x 0.1 by less than 0.1 cm. ??Submitted in toto as (A). Received in Hollande's fixative labelled Copen and bx left colon are three portions of cardoza-pink soft tissue ranging from 0.3 x 0.2 by less than 0.1 cm to 0.8 x 0.2 by less than 0.1 cm. ??Submitted in toto as (B). Received in Hollande's fixative labelled Copen and rectum bx are two portions of cardoza-pink soft tissue averaging 0.7x 0.2 x 0.1 cm. ??Submitted in toto as (C). Received in Hollande's fixative labelled Copen and duodenum bx are six portions of cardoza-pink soft tissue ranging from 0.1 x 0.1 x 0.1 cm to 0.8 x 0.2 x 0.1 cm. ??Submitted in toto as (D1) and (D2). ??(Rose Mary Diaz)/kmm End of Report [facility] 10/25/2007 10/25/2007 15: 07 EST Kar Encinas MD PATHOLOGY ORDERAB LES Performing Organization Address City/State/[facility] Co de Phone Number [facility] [address] [place] [address] documented in this encounter Visit Diagnoses Not on filedocumented in this encounter Care Teams New Car Get Ready Mechanic Relationship Specialty Start Date End Date Shannan Winter MD PCP - General 04/08/09 03/15/19 documented as of this encounter
--- OUTSIDE RECORDS SUMMARY | 2024-05-24 15:30 | XMS_ITS | Encounter Summary ---
Author Organization [facility] Address [address] [place] [address] Care Team Providers Care Macaroni Press Operator Name Role Phone Unavailable Primary Care Provider Unavailabl e Encounter Details Date Type Department Care Team (Late st Contact Info) Description 05/06/2005 9:02 EDT Hospital Encounter [address] [address] Denice Martinez MD [address] [place] [address], [address] [place] [phone] Social History Tobacco Use Types Packs/Day Years Used Date Smoking Tobacco: Never Smokeless Tobacco: Never Alcohol Use Standard Drinks/Week Comments No 0 (1 standard drink = 0.6 oz pur e alcohol) [facility] Utilities Answer Date Recorded In the past 12 months has [employer], gas, oil, or water [employer] threatened to shut off services in your [...]
--- OUTSIDE RECORDS SUMMARY | 2024-05-24 15:30 | XMS_ITS | Encounter Summary ---
Author Organization [facility] Address [address] [place] [address] Care Team Providers Care Strand Galvanizer Name Role Phone Unavailable Primary Care Provider Unavailabl e Encounter Details Date Type Department Care Team (Latest Contact Info) Description 10/27/2007 10:50 EST - 10/27/2007 11:59 EST Hospital Encounter [facility] - Maple conversion [address] [place], [place] [phone] Juan Pablo Toth MD [address] [place] [phone] Discharge Disposition: Auto Discharge Social History Tobacco [...]
--- OUTSIDE RECORDS SUMMARY | 2024-05-24 15:30 | XMS_ITS | Encounter Summary ---
Author Organization [facility] Address [address] [place] [address] Care Team Providers Care Operations Officer Name Role Phone Shannan Vieyra MD Primary Care Provider Unavail able Encounter Details Date Type Department Care Team (Late st Contact Info) Description 10/27/2007 Before PRISM Converted Visit (Maple) [facility] - Maple conversion [address] [place] [address] Juan Pablo Toth MD [place] [place] [phone] Social History Tobacco Use Types Packs/Day Years Used Date Smoking Tobacco: Never Assessed Sex and Gender Information Value Date Recorded Sex Assigned at Not on file Gender Identity Not on file Sexual Orientation Not on file documented as of this encounter Progress Notes * Juan Pablo Toth MD - 08/17/2009 2016 EST DIVISION OF ENDOCRINOLOGY PROGRESS/FOLLOWUP NOTE - 10/27/2007 LYNDON Kerr comes in today for follow up and evaluation of hyperthyroidism. The patient was last seen here in endocrinology in June,. I really do not know why further and more frequent appointments have been made, however, the history is somewhat disturbing. This patient was diagnosed sometime around 2003. At that time she had a T4 of 2.0 microinternational units per milliliter with an immeasurable TSH. Since that time she has had TSH that could not be measured and her free T4 has never beenlower than 2.1. It was 3.1 in October,, and 2.5 in June 2005, 5.3 in August,, 2.9 in November,, and last week it was 5.9 nanogram per deciliter! Along with this she has had hugely elevated T3. In August, T3 total was 633, November, it was 466, and two days ago it was greater than 800 nanogram per deciliter. All this time, the patient has had tachycardia and diarrhea, both of which have been worked up further. Apparently she has had some sort of conduction problem, because she has had her tachycardia since childhood. She does not respond to even 200 mg atenolol, and had an allergic reaction to Inderal. Because of her GI problem, the patient has even had a biopsy and was worked up for celiac disease. In addition to the above which all could be at least exacerbated by if not caused by hyperthyroidism, she has had severe tremor, excessive perspiration, feels warm all the time, her weight has been stable, she has had regular periods, she has been on 30 mg unabated methimazole therapy since the last visit here in June 2005. Obviously, there has been no effect of this. The patient tells me that she has not had iodine dye study. She has had two endoscopic evaluations,and an attempted ablation for her tachycardia in the electrophysiology lab, but apparently she saysno dye study was done. The attempted ablation was done under fluoroscopic guidance. The patient denies muscle weakness. She has had no cramps in her hands. She denies any swelling of her ankles, she has had no difficulty with her eyes. No cough, hemoptysis, or difficulty with swallowing. She has a sister that has hypothyroidism. CURRENT MEDICATIONS In addition to the 30 mg of methimazole given in a split dose, the patient takes: 1. Atenolol 100 mg 2. control. 3. Diltiazem. OBJECTIVE Weight 156, height 5 feet 3?? inches. Blood pressure at first was 184/95, then dropped to 158/90. Her pulse is 130. She has no exophthalmus or proptosis. Her thyroid gland is 2-3 times diffusely enlarged thyroid gland. Fine tremor of her extremities. Warm, moist, and smooth skin. IMPRESSION Hyperthyroidism, only partially treated. PLAN At this time I have discussed with the patient the necessity of once and for all taking care of this thyroid disease. Although she has not had a tubal she does not plan any pregnancies, and I do not think surgery would be the best option for her. I would like to see her go on to have I-131 thyroid ablation of her hyperthyroidism. We have agreed to this Elda will schedule it as soon as we can. We will stop Tapazole about three days before the procedure is done, and we will notify her from our office as to when this can be scheduled, trying to expedite it as soon as possible. For the present time I have notincreased her atenolol as it only may be a few days before the procedure is done. We will warn her of the caution she will have to use around her less than 3-year-old child, and then I will see her three weeks after I-131 is administered, and then 12 weeks after that, warning her at that point of the symptoms of hypothyroidism, which I have described to her as a side effect of the I-131 ablation today. She has agreed to this approach. I think it is far time that even at her young age and the possibility of future pregnancies, she should be treated with more definitive thyroid ablation at this point. Signed by Juan Pablo Toth MD 11/01/2007 16:55 Juan Pablo Toth MD [facility] production lead D: - Juan Pablo Toth MD - lb Job ID: [id number] Doc ID: [id number] cc: MD Miguel Clement MD Labs 10/25/2007 11:04 T4, Free H 5.9 ng/dL 0.8-1.8 Final * 10/25/2007 11:04 T3, Total H >800 ng/dL 60-181 Final * 10/25/2007 11:04 T4 H 23.9 ug/dL 4.5-10.9 Final * 10/25/2007 11:04 TSH L <0.02 uIU/m... 0.35-5.00 Final * documented in this encounter Plan of Treatment Not on file documented as of this encounter Visit Diagnoses Not on filedocumented in this encounter Care Teams Operations Officer Relationship Specialty Start Date End Date Shannan Vieyra MD PCP - General 04/08/09 03/15/19 documented as of this encounter
--- OUTSIDE RECORDS SUMMARY | 2024-05-24 15:30 | XMS_ITS | Encounter Summary ---
Author Organization [facility] Address [address] [place] [address] Care Team Providers Care Dietary Aide Teacher Name Role Phone Unavailable Primary Care Provider Unavailabl e Encounter Details Date Type Department Care Team (Late st Contact Info) Description 06/10/2005 11:47 EDT Hospital Encounter [facility] - Other [address] [place] [address] Germain Mason MD [address] [place] [phone] Social History Tobacco Use Types Packs/Day Years Used Date Smoking Tobacco: Never Smokeless Tobacco: Never Alcohol Use Standard Drinks/Week Comments No 0 (1 standard drink = 0.6 oz pur e alcohol) [facility] Utilities Answer Date Recorded In the past 12 months has [employer] electric, gas, oil, or water company threatened [...] place to sleep or slept in a retirement (including now)? No 10/28/2023 Interpersonal Safety Answer [...] Priority Date/Time Associated Diagnosis Comments TSH Routine 06/10/2005 12:04 EDT T4 FREE Routine 06/10/2005 12:04 EDT documented in this encounter Results * (ABNORMAL) TSH (06/10/2005 12:04 EDT) TSH <0.02(L) 0.35 - 5.50 uIU/ml [facility] 06/10/2005 12:0 4 EDT 06/10/2005 12:13 EDT Germain Mason MD CHEMISTRY & BLOOD GA S ORDERABLES [facility] [address] [place] [address] * (ABNORMAL) T4 FREE (06/10/2005 12:04 EDT) Free T4 2.4(H) 0.8 - 1.8 ng/dl [facility] 06/10/2005 12:0 4 EDT 06/10/2005 12:13 EDT Germain Mason MD CHEMISTRY & BLOOD GA S ORDERABLES [facility] [address] [place] [address] documented in this encounter Visit Diagnoses Not on filedocumented in this encounter
--- OUTSIDE RECORDS SUMMARY | 2024-05-24 15:30 | XMS_ITS | Encounter Summary ---
Author Organization [facility] Address [address] [place] [address] Care Team Providers Care Applied Psychology Teacher Name Role Phone Unavailable Primary Care Provider Unavailabl e Encounter Details Date Type Department Care Team (Late st Contact Info) Description 03/29/2005 15:20 EDT Hospital Encounter [facility] - Maple conversion [address] [place] [address] Pete Richey MD Social History Tobacco Use Types Packs/Day Years Used Date Smoking Tobacco: Never Smokeless Tobacco: Never Alcohol Use Standard Drinks/Week Comments No 0 (1 standard drink = 0.6 oz pur e alcohol) [facility] Utilities Answer Date Recorded In the past [...]
--- OUTSIDE RECORDS SUMMARY | 2024-05-24 15:30 | XMS_ITS | Encounter Summary ---
Author Organization [facility] Address [address] [place] [address] Care Team Providers Care Rubber Mixer Name Role Phone Shannan Vieyra MD Primary Care Provider Unavail able Encounter Details Date Type Department Care Team (Late st Contact Info) Description 12/27/[address] [facility] Endocr[facility]ology [facility] [address] [place] [address] Juan Pablo Toth MD [address] [facility] [address] [place] [phone] Social History Tobacco Use Types [...] Date/Time Associated Diagnosis Comments T3, TOTAL Routine 12/27/2007 14:34 EDT TSH Routine 12/27/2007 14:34 EDT T4 FREE Routine 12/27/2007 14:34 EDT documented in this encounter Results * (ABNORMAL) TSH (12/27/2007 14:34 EDT) TSH <0.02(L) 0.35 - 5.00 uIU/mL [facility] 12/27/2007 14:3 4 EDT 12/27/2007 14:35 EDT Juan Pablo Toth MD CHEMISTRY & BLOOD GAS ORDERABLES Performing Organization Address [facility] de Phone Number [facility] [address] [place] [address] * T3, TOTAL (12/27/2007 14:34 EDT) T3, Total 98 60 - 181 ng/dL [facility] 12/27/2007 14:3 4 EDT 12/27/2007 14:35 EDT Juan Pablo Toth MD CHEMISTRY & BLOOD GAS ORDERABLES Performing Organization Address [facility] de Phone Number [facility] [address] [place] [address] * T4 FREE (12/27/2007 14:34 EDT) Free T4 0.8 0.8 - 1.8 ng/dL [facility] 12/27/2007 14:3 4 EDT 12/27/2007 14:35 EDT Juan Pablo Toth MD CHEMISTRY & BLOOD GAS ORDERABLES Performing Organization Address [facility] de Phone Number [facility] [address] [place] [address] documented in this encounter Visit Diagnoses Not on filedocumented in this encounter Care Teams Rubber Mixer Relationship Specialty Start Date End Date Shannan Vieyra MD PCP - General 04/08/09 03/15/19 documented as of this encounter
--- OUTSIDE RECORDS SUMMARY | 2024-05-24 15:30 | XMS_ITS | Encounter Summary ---
Author Organization [facility] Address [address] [place] [address] Care Team Providers Care Dermatology Teacher Name Role Phone Unavailable Primary Care Provider Unavailabl e Encounter Details Date Type Department Care Team (Late st Contact Info) Description 10/14/2004 23:36 EST Hospital Encounter [facility] - Other [address] [place] [address] True Ledesma MD [address] [place] [address] Social History Tobacco Use Types Packs/Day Years Used Date Smoking Tobacco: Never Smokeless Tobacco: Never Alcohol Use Standard Drinks/Week Comments No 0 (1 standard drink = 0.6 oz pur e alcohol) [facility] Utilities Answer Date Recorded In [...] place to sleep or slept in a [place] facility (including now)? No 10/28/2023 Interpersonal Safety Answer [...]
--- OUTSIDE RECORDS SUMMARY | 2024-05-24 15:30 | XMS_ITS | Encounter Summary ---
Author Organization [facility] Address [address] [place] [address] Care Team Providers Care Coffee Maker Name Role Phone Unavailable Primary Care Provider Unavailabl e Encounter Details Date Type Department Care Team (Latest Contact Info) Description 12/27/2007 21:28 EDT Hospital Encounter [facility] - Other [address] [place] [address] Juan Pablo Toth MD [address] [place] [address] [place] [phone] Discharge Disposition: Home or Self Care [...]
--- OUTSIDE RECORDS SUMMARY | 2024-05-24 15:30 | XMS_ITS | Encounter Summary ---
Author Organization [facility] Address [address] [place] [address] Care Team Providers Care Bus Repair Supervisor Name Role Phone Unavailable Primary Care Provider Unavailabl e Encounter Details Date Type Department Care Team (Latest Contact Info) Description 12/04/2007 11:22 EST - 12/04/2007 11:59 EST Hospital Encounter [facility] - Maple conversion [address] [place], [place] [phone] Juan Pablo Toth MD [address] [place] [phone] Discharge Disposition: Auto Discharge Social History [...]
--- OUTSIDE RECORDS SUMMARY | 2024-05-24 15:30 | XMS_ITS | Encounter Summary ---
Author Organization [facility] Address [address] [place] [address] Care Team Providers Care Water Treatment Specialist Name Role Phone Unavailable Primary Care Provider Unavailabl e Encounter Details Date Type Department Care Team (Late st Contact Info) Description 09/25/2007 6:49 EST - 09/25/2007 11:59 EST Hospital Encounter [facility] Perioperative Services- [address] [address] Miguel Devine MD PhD [address] [place] [address] [address] [place] [phone] Discharge Disposition: Home or Self Care Social History Tobacco Use Types Packs/Day Years Used Date Smoking Tobacco: Never Assessed Sex and Gender Information Value Date Recorded Sex Assigned at Not on file Gender Identity Not on file Sexual Orientation Not on file documented as of this encounter Discharge Disposition Disposition Code Departure Means Destination Home or Self Care documented in this encounter Procedure Notes * Flako Mondragon - 09/25/2007 0000 EST Cardiac Arrhythmia Service MD Pete Krishnan MD Daniel Lustgarten, MD, PhD MD Eliza Levy NP EP Study NAME: DORIS KERR Professor Of Vegetable Science: Miguel Devine MD : 1980 Procedure Date: 09/25/2007 Case No: [id number] Assistants: MD Ashwin Rojas RN Referring Physician: Shannan Vieyra MD Primary Care Physician: Shannan Vieyra MD Indication: Inappropriate Sinus Tachycardia. HPI: 27 year old woman with a long history of persistent and bothersome supraventricular tachycardia.Shehas previously been suspected of having inappropriate sinus tachycardia, but one holter monitor that she wore revealed a subtle change in P wave morphology during an increase in heart rate.This raises the possiblity of an atrial tachycardia.She is brought to the EP lab today for further investigation of her tachycardia. Anesthesia:Conscious sedation & topical anesthetic Procedure: The patient was brought to the electrophysiology laboratory in the fasting state.After informed consent was obtained, the patient was prepped and draped in the usual sterile fashion. Access was obtained using a modified Seldinger technique.All catheters were placed under fluoroscopic guidance. The Attending physician was present for the john portions of the procedure. Pacing and recording were carried out from: the right atrium the right ventricle His bundle recording the coronary sinus Catheters: CS: #7 Fr deflectable electrode catheter 20 electrodes (1 mm-5mm-1mm spacing) RAA: #6 Fr hexapolar electrode catheter(2 mm spacing; proximal ring 25 cm from tip) His:#7 Fr deflectable octapolar electrode catheter (2 mm spacing) RV/Para-Hisian:#7 Fr deflectable quadrapolar electrode catheter(2mm spacing) Ablation: 4 mm Celsius D #7 Fr deflectable quadrapolar ablation catheter (2 mm-5mm-2mm) Findings: Baseline Rhythm: Sinus Rhythm Cycle length:450 ms AH interval:80 ms HV interval:65 ms EP Study: At baseline, the patient was in sinus tachycardia without evidence of pre- excitation.\ Pacing from the right atrial appendage demonstrated 1:1 antegrade conduction over the AV node to 290 ms with Wenckebach at 280 ms.There was no retrograde VA conduction when pacing from the right ventricular parahisian position.Testing did not induce any SVT or AV lindsay echo beats.\par Throughout the study the patient remained persistently tachycardic with fluctuations in rate corresponding with stimulation (i.e. increase heart rate during access and catheter placement).In order toconfirm that her tachycardia was indeed sinus, we mapped the right atrium and confirmed that the earliest atrial activation was at the RA-SVC junction in the expected location of the sinus node.\par Due to the fact that the persistent tachycardia was causing a significant degradation in the Ms. Mannnquality of life, we discussed the possibility of sinus node modification with both her (up to this point she had received minimal sedation) and her family (mother and ).Based on these discussions, we decided to proceed with focal RF application at the site of earliest atrial activation. Ablation Procedure: A 4mm Celsius D curve ablation catheter was advanced into the right atrium and the site of earliestatrial activation was again mapped and confirmed to be at the lateral SVC-RA junction.High-output pacing confirmed that there was no phrenic nerve capture at this site.RF was delivered to this site for 60 seconds (maximum power 35 brown, maximum temperature 60?? C) after which ablationwas temporarily halted due to patient discomfort.Following administration of further sedation, two more RF lesions were delivered at slightly more lateral and superior locations.Total RF time was 210 seconds.Therewas no change in heart rate following any of the lesions; however there was frequent accelerated aut omaticity during RF application. Given the lack of efficacy despite delivery of adequate lesions (as measured by temperature and impedance change during RF), we decided that the most prudent course of action would be to stop the procedure at this point. Catheters were withdrawn.Sheaths were pulled and hemostasis was achieved with manual compression.Fluoro time = 23.6 min.No complications. Summary: 1. Inappropriate sinus tachycardia 2. No inducible supraventricular tachycardia 3. Normal AV lindsay function 4. Unsuccessful sinus node modification 5. No complications I personally reviewed the study and the resident's/fellow's interpretation and agree with the findings. Signed by Miguel Devine MD 09/28/2007 10:00 Flako Mondragon MD Electrophysiology Fellow Miguel Devine MD Attending Physician D: - Flako Mondragon MD A - ksw Job ID: Document ID: [id number] cc: Shannan Vieyra MD documented in this encounter Plan of Treatment Not on file documented as of this encounter Procedures Procedure Name Priority Date/Time Associated Diagnosis Comments TEST, URINE Routine 09/25/2007 7:30 EST PTT Routine 09/25/2007 7:15 EST PROTIME Routine 09/25/2007 7:15 EST COMPLETE BLOOD COUNT Routine 09/25/2007 7:15 EST QUANT BETA HCG, Routine 09/25/2007 7:15 EST BUN Routine 09/25/2007 7:15 EST CREATININE Routine 09/25/2007 7:15 EST ELECTROLYTES Routine 09/25/2007 7:15 EST documented in this encounter Results * TEST, URINE (09/25/2007 7:30 EST) Result-Pregnanc y Test, Ur Neg [facility] 09/25/2007 7:30 EST 09/25/2007 7:42 EST Miguel Devine MD PhD URINAL YSIS ORDERABLES Performing Organization Address [facility] Co de Phone Number [facility] [address] [place] [address] * PTT (09/25/2007 7:15 EST) PTT 26 20 - 35 secs [facility] Comment:Therapeutic Heparin range: 60-100 seconds 09/25/2007 7:15 EST 09/25/2007 7:29 EST Miguel Devine MD PhD HEMATO LOGY & PF4 ORDERABLES Performing Organization Address [facility] Co de Phone Number [facility] [address] [place] [address] * PROTIME (09/25/2007 7:15 EST) Pro Time 14.4 12.0 - 15.0 secs [facility] I.N.R. 1.1 0.9 - 1.1 Ratio [facility] Comment: Moderate Intensity Coumadin INR = 2.0-3.0 Adjustments in anticoagulant therapy dose should be based upon the INR and NOT the Pro Time. 09/25/2007 7:15 EST 09/25/2007 7:29 EST Miguel Devine MD PhD HEMATO LOGY & PF4 ORDERABLES Performing Organization Address [facility] de Phone Number [facility] [address] [place] [address] * ELECTROLYTES (09/25/2007 7:15 EST) Pathologist [facility] Sodium 139 136 - 145 mEq/L [facility] Potassium 4.1 3.5 - 5.0 mEq/L [facility] Chloride 106 96 - 110 mEq/L [facility] CO2 26 24 - 32 mEq/L [facility] 09/25/2007 7:15 EST 09/25/2007 7:29 EST Miguel Devine MD PhD CHEMIS TRY & BLOOD GAS ORDERABLES Performing Organization Address [facility] Phone Number [facility] [address] [place] [address] * HCG (09/25/2007 7:15 EST) HCG <4 <4 mIU/ml [facility] Comment: Reference Range: Positive = >10 Borderline = 4-10 recommend repeat. Negative = <4 09/25/2007 7:15 EST 09/25/2007 7:29 EST Miguel Devine MD PhD CHEMIS TRY & BLOOD GAS ORDERABLES Performing Organization Address [facility] de Phone Number [facility] [address] [place] [address] * (ABNORMAL) CREATININE (09/25/2007 7:15 EST) Creatinine 0.51(L) 0.7 - 1.5 mg/dl [facility] GFR, Calculated >60 ml/min/1.7 3m2 [facility] 09/25/2007 7:15 EST 09/25/2007 7:29 EST Miguel Devine MD PhD CHEMIS TRY & BLOOD GAS ORDERABLES Performing Organization Address [facility] Phone Number [facility] [address] [place] [address] * (ABNORMAL) HEMAGRAM (09/25/2007 7:15 EST) WBC 4.48 4.0 - 12.4 K/cmm [facility] RBC 5.30(H) 3.86 - 5.04 M/cmm [facility] Hemoglobin 14.1 11.6 - 15.2 gm/dl [facility] HCT 42.5 34.9 - 44.4 % [facility] MCV 80(L) 81 - 98 fl [facility] MCH 26.7 26.7 - 33.3 pg [facility] MCHC 33.3 32.1 - 35.9 gm/dl [facility] PLT 209 141 - 320 K/cmm [facility] RDW-CV 13.6 11.7 - 14.6 % [facility] 09/25/2007 7:15 EST 09/25/2007 7:29 EST Miguel Devine MD PhD HEMATO LOGY & PF4 ORDERABLES Performing Organization Address [facility] Co de Phone Number [facility] [address] [place] [address] * BUN (09/25/2007 7:15 EST) BUN 13 10 - 26 mg/dl [facility] 09/25/2007 7:15 EST 09/25/2007 7:29 EST Miguel Devine MD PhD CHEMIS TRY & BLOOD GAS ORDERABLES Performing Organization Address City/[facility] de Phone Number [facility] [address] [place] [address] documented in this encounter Visit Diagnoses Not on filedocumented in this encounter
--- OUTSIDE RECORDS SUMMARY | 2024-05-24 15:30 | XMS_ITS | Encounter Summary ---
Author Organization [facility] Address [address] [place] [address] Care Team Providers Care Ab Initio Etl Developer Name Role Phone Unavailable Primary Care Provider Unavailabl e Encounter Details Date Type Department Care Team (Late st Contact Info) Description 02/15/2005 18:16 EDT Hospital Encounter [address] [address] Denice Martinez MD [address] [place] [address], [address] [place] [phone] Social History Tobacco Use Types Packs/Day Years Used Date Smoking Tobacco: Never Smokeless Tobacco: Never Alcohol Use Standard Drinks/Week Comments No 0 (1 standard drink = 0.6 oz pur e alcohol) [facility] Utilities Answer Date Recorded In the past 12 months has [employer], gas, oil, or water [employer] threatened to shut off services in your [...] Name Priority Date/Time Associated Diagnosis Comments URINE INFORMATION Routine 02/15/2005 23: 13 EDT PROTEIN, TOTAL, 24 HR, URINE Routine 02/15/2005 23:13 EDT CREATININE CLEARANCE, TIMED COLLECTION Routine 02/15/2005 23:13 EDT documented in this encounter Results * TOTAL PROTEIN, URINE 24H (02/15/2005 23:13 EDT) Tot Prot,Ur Random 6 mg/dl [facility] 02/15/2005 23:1 3 EDT 02/15/2005 23:13 EDT Denice Martinez MD URINALYSIS ORDERABLE S Performing Organization Address City/State/[facility] Co de Phone Number [facility] [address] [place] [address] * URINE INFORMATION (02/15/2005 23:13 EDT) Period 25 hrs [facility] Specimen Volume 2025 mls [facility] 02/15/2005 23:1 3 EDT 02/15/2005 23:13 EDT Denice Martinez MD URINALYSIS ORDERABLE S Performing Organization Address [facility] Co de Phone Number [facility] [address] [place] [address] * (ABNORMAL) CREATININE CLEARANCE (02/15/2005 23:13 EDT) Creatinine Clearance 168.8(H) 87 - 107 ml/min [facility] Creatinine, Urn [place] 50.0 mg/dl [facility] 02/15/2005 23:1 3 EDT 02/15/2005 23:13 EDT Denice Martinez MD URINALYSIS ORDERABLE S Performing Organization Address [facility] Co de Phone Number [facility] [address] [place] [address] documented in this encounter Visit Diagnoses Not on filedocumented in this encounter
--- OUTSIDE RECORDS SUMMARY | 2024-05-24 15:30 | XMS_ITS | Encounter Summary ---
Author Organization [facility] Address [address] [place] [address] Care Team Providers Care Painter Decorator Name Role Phone Shannan Vieyra MD Primary Care Provider Unavail able Encounter Details Date Type Department Care Team (Late st Contact Info) Description 12/04/2007 Results Only [facility] Endocrinology - [facility] [address] [place] [address] Juan Pablo Toth MD [address] [facility] [address] [place] [address] Social History Tobacco Use Types [...] Priority Date/Time Associated Diagnosis Comments TSH Routine 12/04/2007 12:09 EST T4 FREE Routine 12/04/2007 12:09 EST documented in this encounter Results * (ABNORMAL) TSH (12/04/2007 12:09 EST) TSH <0.02(L) 0.35 - 5.00 uIU/mL [facility] 12/04/2007 12:0 9 EST 12/04/2007 12:10 EST Juan Pablo Toth MD CHEMISTRY & BLOOD GAS ORDERABLES Performing Organization Address [facility] Co de Phone Number [facility] [address] [place] [address] * (ABNORMAL) T4 FREE (12/04/2007 12:09 EST) Free T4 4.1(H) 0.8 - 1.8 ng/dL [facility] 12/04/2007 12:0 9 EST 12/04/2007 12:10 EST Juan Pablo Toth MD CHEMISTRY & BLOOD GAS ORDERABLES Performing Organization Address [facility] de Phone Number [facility] [address] [place] [address] documented in this encounter Visit Diagnoses Not on filedocumented in this encounter Care Teams Painter Decorator Relationship Specialty Start Date End Date Shannan Vieyra MD PCP - General 04/08/09 03/15/19 documented as of this encounter
--- OUTSIDE RECORDS SUMMARY | 2024-05-24 15:30 | XMS_ITS | Encounter Summary ---
Author Organization [facility] Address [address] [place] [address] Care Team Providers Care Refinery Operator Polymerization Plant Name Role Phone Shannan Vieyra MD Primary Care Provider Unavail able Encounter Details Date Type Department Care Team (Late st Contact Info) Description 10/12/2004 Office Visit [facility] [address] [place] [address] Royal Saunders PA-C [address] [place] [address] Social History Tobacco Use Types Packs/Day Years Used Date Smoking Tobacco: Never Assessed Sex and Gender Information Value Date Recorded Sex Assigned at Not on file Gender Identity Not on file Sexual Orientation Not on file documented as of this encounter Progress Notes * Royal Saunders PA - 12/12/2009 1520 EST Emergency Department ??? Physician Summary Registration Date/Time 10/12/2004 2:29 Arrived- By private vehicle. Historian- patient. HISTORY OF PRESENT ILLNESS Chief Complaint: Chest pressure This started just prior to arrival and is still present. It is not gone now. It is described as pressure and tightness. Quality not described as indigestion, burning, dull, aching or sharp. Quality not described as pain, well localized or diffuse and it is described as located in the central chest area. No nausea, vomiting, difficulty breathing or diaphoresis. The patient has had similar symptoms previously. Not recently seen/assessed. REVIEW OF SYSTEMS No fever, chills, cough, pedal edema or calf pain. No fainting episodes, headache, sore throat,blurred vision or abdominal pain. No black stools, difficulty with urination, skin rash, enlarged lymph nodes or joint pain. No bloody stools. PAST HISTORY See nurses notes. Medications: See nurses notes. Allergies: See nurses notes. SOCIAL HISTORY Nonsmoker. ADDITIONAL NOTES The nursing notes have been reviewed. PHYSICAL EXAM Appearance: Alert. No acute distress. Vital Signs: The vital signs have been reviewed. Neck: Normal inspection. Neck supple. CVS: Normal heart rate and rhythm. Heart sounds normal. Respiratory: No respiratory distress. Breath sounds normal. Chest nontender. Abdomen: Abdomen soft and nontender. No organomegaly. Skin: Normal skin color. Extremities: No pedal edema. LABS, X-RAYS, AND EKG EKG: Tachycardia. PROGRESS AND PROCEDURES E.D. Course: The patient's symptoms are now gone. Patient/family counseled. Additional history was sought. Old medical records ordered. ED Attending on duty and available for supervision: Bienvenido Fernandez. CLINICAL IMPRESSION Asthma. INSTRUCTIONS Continue current medications. Warnings: GENERAL WARNINGS: Return or contact your physician immediately if your condition worsens or changesunexpectedly, if not improving as expected, or if other problems arise. Specifically, return if breathing difficulty. Follow-up: Follow up with your doctor Tuesday if not better. Royal Gardiner (Electronically signed Royal Gardiner 10/12/2004 4:01) Physician's Clinical Report Emergency Department ??? Nursing Summary Registration Date/Time 10/12/2004 2:29 TRIAGE Initial Assessment Acuity: LEVEL 3. BP: 126 / 72 HR: 94 RR: 20 Temp: 36.4 tympanic O2 saturation: 100% room air Alert. --02:34 Monae Arvizu R.N. Medications Atenolol. --02:32 Monae Arvizu R.N. (tapasol). --02:32 Monae Arvizu R.N. (OCP). --02:34 Monae Arvizu R.N. Allergies PENICILLIN. SULFA DRUGS. --02:33 Monae Arvizu R.N. History Chief Complaint: (SOB---onset 45 min p taking atenolol---feels like elephant on chest). Pain level now: 8/10. PAST HX: Last normal menstrual period- on sesonal---period every 3 mos---normal (exercise inuced astma, Graves dx, arrhythmia). SOCIAL HX: Nonsmoker. Denies alcohol use. No report of abuse. Arrived by private vehicle. Historian: patient. --02:34 Monae Arvizu R.N. Interventions To room. --02:34 Monae Arvizu R.N. NURSINGPROGRESS NOTES Progress ALBUTEROL nebulizer treatment (5 mg) with ATROVENT (1 unit dose) given by nurse. --02:55 Monae Arvizu R.N. 12-lead EKG was ordered, performed by a nurse and shown to the PA (Chip). --03:03 Monae Arvizu R.N. Reassessment after medication administered. The patient is calm. Overall patient status is improved- the patient states feels better. --03:24 Monae Arvizu R.N. ALBUTEROL inhaler to go --03:33 Monae Arvizu R.N. DISPOSITION / DISCHARGE HR: 124 RR: 18 O2 saturation: 100% room air Patient reports pain level on departure as 0/10. Condition at departure: improved and stable. No barriers to learning present. Discharge instructions reviewed with the patient. Warnings reviewed. Reviewed medication. Reviewed referrals. Patient verbalized understanding. The patient was discharged home. The patient left the Emergency Department ambulatory and via private vehicle. --03:34 Ector Hernandez R.N. Locked/Released at 10/12/2004 3:34 by Monae Arvizu R.N. documented in this encounter Plan of Treatment Not on file documented as of this encounter Visit Diagnoses Not on filedocumented in this encounter Care Teams Refinery Operator Polymerization Plant Relationship Specialty Start Date End Date Shannan Vieyra MD PCP - General 04/08/09 03/15/19 documented as of this encounter
--- OUTSIDE RECORDS SUMMARY | 2024-05-24 15:30 | XMS_ITS | Encounter Summary ---
Author Organization [facility] Address [address] [place] [address] Care Team Providers Care Cake Maker Name Role Phone Unavailable Primary Care Provider Unavailabl e Encounter Details Date Type Department Care Team (Late st Contact Info) Description 10/09/2007 14:10 EST Hospital Encounter [facility] [address] [place] [address] Miguel Devine MD PhD [address] [facility] [address] [place] [phone] Social History Tobacco Use Types Packs/Day Years Used Date Smoking Tobacco: Never Smokeless Tobacco: Never Alcohol Use Standard Drinks/Week Comments No 0 (1 standard drink = 0.6 oz pur e alcohol) [facility] Utilities Answer Date Recorded In the past 12 months has [facility] [employer], gas, oil, or water company [...]
--- OUTSIDE RECORDS SUMMARY | 2024-05-24 15:30 | XMS_ITS | Encounter Summary ---
Author Organization [facility] Address [address] [place] [address] Care Team Providers Care Log Turner Name Role Phone Unavailable Primary Care Provider Unavailabl e Encounter Details Date Type Department Care Team (Latest Contact Info) Description 11/07/2007 10:38 EST - 11/07/2007 11:59 EST Hospital Encounter [facility] [address] [place] [address] Juan Pablo Toth MD [address] [place] [phone] Discharge Disposition: Auto Discharge Social History [...]
--- OUTSIDE RECORDS SUMMARY | 2024-05-24 15:30 | XMS_ITS | Encounter Summary ---
Author Organization [facility] Address [address] [place] [address] Care Team Providers Care Operating Systems Programmer Name Role Phone Unavailable Primary Care Provider Unavailabl e Encounter Details Date Type Department Care Team (Late st Contact Info) Description 10/25/2007 7:33 EST - 10/25/2007 11:59 EST Hospital Encounter [address] [address] Kar Billings MD [address] [facility] [address] [place] [phone] Miguel Devine MD PhD [address] [place] [address] [address] [place] [phone] Discharge Disposition: Auto Discharge Social History Tobacco [...]
--- OUTSIDE RECORDS SUMMARY | 2024-05-24 15:30 | XMS_ITS | Encounter Summary ---
Author Organization [facility] Address [address] [place] [address] Care Team Providers Care Fleet Operations Manager Name Role Phone Unavailable Primary Care Provider Unavailabl e Encounter Details Date Type Department Care Team (Latest Contact Info) Description 11/08/2007 6:01 EST - 11/08/2007 11:59 EST Hospital Encounter [facility] [address] [place] [address] Juan Pablo Toth MD [address] [place] [phone] Discharge Disposition: Auto Discharge Social History [...] Procedure Name Priority Date/Time Associated Diagnosis Comments NM INITAL HYPERTHYROID TREATMENT 11/08/2007 11:48 EST NM THYROID UPTAKE + SCAN MULTI 11/08/2007 9:21 EST documented in this encounter Results * NM TX HYPERTHYROID INITIAL (11/08/2007 11:48 EST) Anatomical Region Laterality Modality Other 11/08/2007 11:4 8 EST Narrative 03/31/2009 5:25 EDT grave's disease NM THYROID UPTAKE + SCAN MULTI ??Nov 08, 2007 9:21:00 AM NM HYPERTHYROIDISM Signs and Symptoms: ??grave''s disease Technique: After the oral ingestion of 230 uCi I-123 Priscila, using a pinhole collimator, thyroid images were obtained in anterior, left anterior oblique and right anterior oblique projections at 24 hours. Findings Uptake and Scan: The thyroid scan shows uniform distribution of radiotracer. The thyroid gland is diffusely enlarged. 24 hour uptake of radioactive iodine is calculated at 85.9%. Impression: Abnormal 24-hour uptake and thyroid scan findings consistent with Graves' disease. Hyperthryodisim Treatment: Because of the patient's clinical symptoms and abnormal increased uptake of radioactive iodine, treatment of hyperthyroidism was requested. Through discussion of the risks and benefits of the procedure with the patient, written informed consent was obtained. The patient was informed about radiation safety measures and precautions including hand and urinary hygiene, meal preparation and the principles of time and distance to reduce the radiation exposure. A test was negative; the patient was advised to wait approximately 12 months if a is planned. Then, under direct observation, 10.5 mCi of iodine-[address] Obrien, the attending physician, was present for the administration. There were no immediate complications. Impression: Successful administration of radioactive iodine-131 to treat hyperthyroidism (Grave's disease). I have personally reviewed the images and the above interpretation and agree with the findings. Procedure Note Rigo Newby Jr., MD / Desmond Obrien MD - 03/31/2009 grave's disease NM THYROID UPTAKE + SCAN MULTI Nov 08, 2007 9:21:00 AM NM HYPERTHYROIDISM Signs and Symptoms: grave''s disease Technique: After the oral ingestion of 230 uCi I-123 Priscila, using a pinhole collimator, thyroid images were obtained in anterior, left anterior oblique and right anterior oblique projections at 24 hours. Findings Uptake and Scan: The thyroid scan shows uniform distribution of radiotracer. The thyroid gland is diffusely enlarged. 24 hour uptake of radioactive iodine is calculated at 85.9%. Impression: Abnormal 24-hour uptake and thyroid scan findings consistent with Graves' disease. Hyperthryodisim Treatment: Because of the patient's clinical symptoms and abnormal increased uptake of radioactive iodine, treatment of hyperthyroidism was requested. Through discussion of the risks and benefits of the procedure with the patient, written informed consent was obtained. The patient was informed about radiation safety measures and precautions including hand and urinary hygiene, meal preparation and the principles of time and distance to reduce the radiation exposure. A test was negative; the patient was advised to wait approximately 12 months if a is planned. Then, under direct observation, 10.5 mCi of iodine-[address] Obrien, the attending physician, was present for the administration. There were no immediate complications. Impression: Successful administration of radioactive iodine-131 to treat hyperthyroidism (Grave's disease). I have personally reviewed the images and the above interpretation and agree with the findings. Juan Pablo Toth MD [facility] NM ORDERABLES * NM THYROID UPTAKE + SCAN MULTI (11/08/2007 9:21 EST) Anatomical Region Laterality Modality Other 11/08/2007 9:21 EST Narrative 03/31/2009 5:43 EDT grave's disease NM THYROID UPTAKE + SCAN MULTI ??Nov 08, 2007 9:21:00 AM NM HYPERTHYROIDISM Signs and Symptoms: ??grave''s disease Technique: After the oral ingestion of 230 uCi I-123 Priscila, using a pinhole collimator, thyroid images were obtained in anterior, left anterior oblique and right anterior oblique projections at 24 hours. Findings Uptake and Scan: The thyroid scan shows uniform distribution of radiotracer. The thyroid gland is diffusely enlarged. 24 hour uptake of radioactive iodine is calculated at 85.9%. Impression: Abnormal 24-hour uptake and thyroid scan findings consistent with Graves' disease. Hyperthryodisim Treatment: Because of the patient's clinical symptoms and abnormal increased uptake of radioactive iodine, treatment of hyperthyroidism was requested. Through discussion of the risks and benefits of the procedure with the patient, written informed consent was obtained. The patient was informed about radiation safety measures and precautions including hand and urinary hygiene, meal preparation and the principles of time and distance to reduce the radiation exposure. A test was negative; the patient was advised to wait approximately 12 months if a is planned. Then, under direct observation, 10.5 mCi of iodine-[address] Obrien, the attending physician, was present for the administration. There were no immediate complications. Impression: Successful administration of radioactive iodine-131 to treat hyperthyroidism (Grave's disease). I have personally reviewed the images and the above interpretation and agree with the findings. Procedure Note Rigo Newby Jr., MD / Desmond Obrien MD - 03/31/2009 grave's disease NM THYROID UPTAKE + SCAN MULTI Nov 08, 2007 9:21:00 AM NM HYPERTHYROIDISM Signs and Symptoms: grave''s disease Technique: After the oral ingestion of 230 uCi I-123 Priscila, using a pinhole collimator, thyroid images were obtained in anterior, left anterior oblique and right anterior oblique projections at 24 hours. Findings Uptake and Scan: The thyroid scan shows uniform distribution of radiotracer. The thyroid gland is diffusely enlarged. 24 hour uptake of radioactive iodine is calculated at 85.9%. Impression: Abnormal 24-hour uptake and thyroid scan findings consistent with Graves' disease. Hyperthryodisim Treatment: Because of the patient's clinical symptoms and abnormal increased uptake of radioactive iodine, treatment of hyperthyroidism was requested. Through discussion of the risks and benefits of the procedure with the patient, written informed consent was obtained. The patient was informed about radiation safety measures and precautions including hand and urinary hygiene, meal preparation and the principles of time and distance to reduce the radiation exposure. A test was negative; the patient was advised to wait approximately 12 months if a is planned. Then, under direct observation, 10.5 mCi of iodine-[address] Obrien, the attending physician, was present for the administration. There were no immediate complications. Impression: Successful administration of radioactive iodine-131 to treat hyperthyroidism (Grave's disease). I have personally reviewed the images and the above interpretation and agree with the findings. Juan Pablo Toth MD [facility] NM ORDERABLES documented in this encounter Visit Diagnoses Not on filedocumented in this encounter
--- OUTSIDE RECORDS SUMMARY | 2024-05-24 15:30 | XMS_ITS | Encounter Summary ---
Author Organization [facility] Address [address] [place] [address] Care Team Providers Care Mobile Equipment Servicer Name Role Phone Unavailable Primary Care Provider Unavailabl e Encounter Details Date Type Department Care Team (Late st Contact Info) Description 04/21/2005 23:18 EDT Hospital Encounter [facility] - Other [address] [place] [address] Denice Martinez MD [address] [place] [address], [facility] [address] [place] [phone] Social History Tobacco Use Types Packs/Day Years Used Date Smoking Tobacco: Never Smokeless Tobacco: Never Alcohol Use Standard Drinks/Week Comments No 0 (1 standard drink = 0.6 oz pur e alcohol) [facility] Utilities Answer Date Recorded In the past 12 months has [facility] [employer], gas, oil, or water [email or web address] threatened to shut off services in your [...] place to sleep or slept in a penitentiary (including now)? No 10/28/2023 Interpersonal Safety Answer [...]
--- OUTSIDE RECORDS SUMMARY | 2024-05-24 15:30 | XMS_ITS | Encounter Summary ---
Author Organization [facility] Address [address] [place] [address] Care Team Providers Care Director Of Assisted Living Name Role Phone Shannan Winter MD Primary Care Provider Unavail able Encounter Details Date Type Department Care Team (Late st Contact Info) Description 11/14/2006 Results Only [facility] [address] [place] [phone] Julita Martinez MD [address] [place] [address], [facility] [address] [place] [phone] Social History Tobacco Use Types Packs/Day Years Used Date Smoking Tobacco: Never Assessed Sex and Gender Information Value Date Recorded Sex Assigned at Not on file Gender Identity Not on file Sexual Orientation Not on file documented as of this encounter Plan of Treatment Not on file documented as of this encounter Procedures Procedure Name Priority Date/Time Associated Diagnosis Comments CYTOPATHOLOGY Routine 11/14/2006 0:00 EST documented in this encounter Results * CYTOPATHOLOGY (11/14/2006 0:00 EST) Pathology Report: CYTOPATHOLOGY REPORT Reports generated via electronic interface contain original data; however they are lacking the format of the original report. Caution should be taken when reading/interpreti ng unformatted reports. Name: ? DORIS KERR ? Accession #: ? [id number] : ? 1980 (Age: 26) ??F ?Collect Date: ? 11/14/2006 Location: ? [facility] ? Receive Date: ? 11/15/2006 Provider: ?JULITA MARTINEZ MD Copy to: ?SHANNAN WINTER MD ? Specimen/Source: ?ThinPrep Pap Test, Cervix/Endocervix, processed on [employer] Imaging System, with manual evaluation Last Menstrual Period: ? 09/19/06 Hormonal/Contracep tive Status: ? Yes: Seasonale ? SPECIMEN ADEQUACY ? Satisfactory for Evaluation - transformation zone component present GENERAL CATEGORIZATION ? Negative for Intraepithelial Lesion or Malignancy INTERPRETATION ? Fungal organisms present morphologically consistent with Cora species. ? Document reviewed and electronically signed by: ? Juan Alberto Ring, GEORGI(ASCP) ? Report Date: ??11/17/2006 10:07 End of Report [facility] 11/14/2006 11/15/2006 Julita Martinez MD PATHOLOGY ORDERABLES [facility] [address] [place] [address] documented in this encounter Visit Diagnoses Not on filedocumented in this encounter Care Teams Director Of Assisted Living Relationship Specialty Start Date End Date Shannan Winter MD PCP - General 04/08/09 03/15/19 documented as of this encounter
--- OUTSIDE RECORDS SUMMARY | 2024-05-24 15:31 | XMS_ITS | Encounter Summary ---
Author Organization [facility] Address [address] [place] [address] Care Team Providers Care Buttermaker Continuous Churn Name Role Phone Shannan Vieyra MD Primary Care Provider Unavail able Encounter Details Date Type Department Care Team (Late st Contact Info) Description 04/02/2004 Office Visit [facility] Cardiology - Main [address] [address] Pete Richey MD Social History Tobacco Use [...] on filedocumented in this encounter Care Teams Buttermaker Continuous Churn Relationship Specialty Start Date End Date Shannan Vieyra MD PCP - General 04/08/09 03/15/19 documented as of this encounter
--- OUTSIDE RECORDS SUMMARY | 2024-05-24 15:31 | XMS_ITS | Encounter Summary ---
Author Organization [facility] Address [address] [place] [address] Care Team Providers Care [employer] Hut Team Member Name Role Phone Shannan Vieyra MD Primary Care Provider Unavail Leida Jackson PA-C Primary Care Provi melvin Comfort Zelaya NP Primary Care Provider [phone] Encounter Details Date Type Department Care Team (Late st Contact Info) Description 06/10/2004 Before PRISM Converted Visit (Maple) [place] - Maple conversion [address] [place] [address] Paradise Padilla MD [address] [place] [address] Social History Tobacco Use Types Packs/Day Years Used Date Smoking Tobacco: Never Assessed Sex and Gender Information Value Date Recorded Sex Assigned at Not on file Gender Identity Not on file Sexual Orientation Not on file documented as of this encounter Plan of Treatment Not on file documented as of this encounter Visit Diagnoses Not on filedocumented in this encounter Care Teams Pizza Hut Team Member Relationship Specialty Start Date End Date Shannan Vieyra MD PCP - General 04/08/09 03/15/19 Leida Cerda PA-C PCP - General 03/16/19 03/07/22 Comfort Zelaya NP [address] [place] [address] PCP - General Family Medicine - Primary Care 03/08/22 documented as of this encounter
--- OUTSIDE RECORDS SUMMARY | 2024-05-24 15:31 | XMS_ITS | Encounter Summary ---
Author Organization [facility] Address [address] [place] [address] Care Team Providers Care Ict Developer Name Role Phone Unavailable Primary Care Provider Unavailabl e Encounter Details Date Type Department Care Team (Late st Contact Info) Description 09/16/2003 15:53 EST Hospital Encounter [facility] - Maple conversion [address] [place] [address] Pete Richey MD Social History Tobacco Use Types Packs/Day Years Used Date Smoking Tobacco: Never Smokeless Tobacco: Never Alcohol Use Standard Drinks/Week Comments No 0 (1 standard drink = 0.6 oz pur e alcohol) [facility] Utilities Answer Date Recorded In [...] place to sleep or slept in a [facility] (including now)? No 10/28/2023 Interpersonal Safety Answer [...]
--- OUTSIDE RECORDS SUMMARY | 2024-05-24 15:31 | XMS_ITS | Encounter Summary ---
Author Organization [facility] Address [address] [place] [address] Care Team Providers Care Cloth Printing Back Tender Name Role Phone Shannan Vieyra MD Primary Care Provider Unavail Leida Jackson PA-C Primary Care Provi melvin Comfort Zelaya NP Primary Care Provider [phone] Encounter Details Date Type Department Care Team (Late st Contact Info) Description 06/10/2004 Before PRISM Converted Visit (Maple) [facility] - Maple conversion [address] [place] [address] Paradise Padilla MD [address] [place] [address] Social History Tobacco Use Types Packs/Day Years Used Date Smoking Tobacco: Never Assessed Sex and Gender Information Value Date Recorded Sex Assigned at Not on file Gender Identity Not on file Sexual Orientation Not on file documented as of this encounter Plan of Treatment Not on file documented as of this encounter Visit Diagnoses Not on filedocumented in this encounter Care Teams Cloth Printing Back Tender Relationship Specialty Start Date End Date Shannan Vieyra MD PCP - General 04/08/09 03/15/19 Leida Cerda PA-C PCP - General 03/16/19 03/07/22 Comfort Zelaya NP [address] [place] [address] PCP - General Family Medicine - Primary Care 03/08/22 documented as of this encounter
--- OUTSIDE RECORDS SUMMARY | 2024-05-24 15:31 | XMS_ITS | Encounter Summary ---
Author Organization [facility] Address [address] [place] [address] Care Team Providers Care Transportation Broker Name Role Phone Shannan Vieyra MD Primary Care Provider Unavail Leida Jackson PA-C Primary Care Provi melvin Comfort Zelaya NP Primary Care Provider [phone] Encounter Details Date Type Department Care Team (Late st Contact Info) Description 06/10/2004 Before PRISM Converted Visit (Maple) [facility] - Maple conversion [address] [place] [address] Paradise Padilla MD [address] [place] [address] Social History Tobacco Use Types Packs/Day Years Used Date Smoking Tobacco: Never Assessed Sex and Gender Information Value Date Recorded Sex Assigned at Not on file Gender Identity Not on file Sexual Orientation Not on file documented as of this encounter Plan of Treatment Not on file documented as of this encounter Visit Diagnoses Not on filedocumented in this encounter Care Teams Transportation Broker Relationship Specialty Start Date End Date Shannan Vieyra MD PCP - General 04/08/09 03/15/19 Leida Cerda PA-C PCP - General 03/16/19 03/07/22 Comfort Zelyaa NP [address] [place] [address] PCP - General Family Medicine - Primary Care 03/08/22 documented as of this encounter
--- OUTSIDE RECORDS SUMMARY | 2024-05-24 15:31 | XMS_ITS | Encounter Summary ---
Author Organization [facility] Address [address] [place] [address] Care Team Providers Care Animal Caretaker Name Role Phone Unavailable Primary Care Provider Unavailabl e Encounter Details Date Type Department Care Team (Late st Contact Info) Description 07/14/2004 12:03 EDT Hospital Encounter [facility] - Maple conversion [address] [place] [address] Leida Cerda PA-C [address] [place] [address] [address] [place], [place] [address] Social History Tobacco Use Types Packs/Day Years Used Date Smoking Tobacco: Never Smokeless Tobacco: Never Alcohol Use Standard Drinks/Week Comments No 0 (1 standard drink = 0.6 oz pur e alcohol) [facility] Utilities Answer Date Recorded In [...]
--- OUTSIDE RECORDS SUMMARY | 2024-05-24 15:31 | XMS_ITS | Encounter Summary ---
Author Organization [facility] Address [address] [place] [address] Care Team Providers Care Injection Mold Technician Name Role Phone Unavailable Primary Care Provider Unavailabl e Encounter Details Date Type Department Care Team (Latest Contact Info) Description 02/08/2004 16:01 EDT Hospital Encounter [address] [address] Adriana August, ASSOCIATE PROFESSOR OF SOCIOLOGY [address] [place] [address] Discharge Disposition: Auto Discharge Social History Tobacco [...]
--- OUTSIDE RECORDS SUMMARY | 2024-05-24 15:31 | XMS_ITS | Encounter Summary ---
Author Organization [facility] Address [address] [place] [address] Care Team Providers Care Dust Mixer Name Role Phone Unavailable Primary Care Provider Unavailabl e Encounter Details Date Type Department Care Team (Latest Contact Info) Description 06/05/2004 23:56 EDT - 06/06/2004 11:59 EDT Hospital Encounter [facility] Emergency Department - [address] [address] Emergency, Default, MD Discharge Disposition: Home or Self Care Social [...] Procedure Name Priority Date/Time Associated Diagnosis Comments BACTERIAL CULTURE, BLOOD Routine 06/06/2004 2:30 EDT HOLD SST Routine 06/06/2004 2:30 EDT COMPLETE BLOOD COUNT AND DIFFERENTIAL Routine 06/06/2004 2:30 EDT BACTERIAL CULTURE, BLOOD Routine 06/06/2004 2:[address] HEAD WO CONTRAST Routine 06/06/2004 1 :47 EDT documented in this encounter Results * BACTERIAL CULTURE, BLOOD (06/06/2004 2:30 EDT) Specimen Description Blood Right Arm [facility] Result No growth [facility] Report Status Final [id number] [facility] 06/06/2004 2:30 EDT 06/06/2004 2:43 EDT Default Emergency MICROBIOLOGY - GENE RAL ORDERABLES Performing Organization Address [facility] Co de Phone Number [facility] [address] [place] [address] * HOLD SST (06/06/2004 2:30 EDT) Hold SST Hold for further testing. Specimen will be held for 30 days. [facility] 06/06/2004 2:30 EDT 06/06/2004 2:40 EDT Default Emergency LAB INFO SERVICE AN D SUPPORT & PHONE RESULT Performing Organization Address [facility] de Phone Number [facility] [address] [place] [address] * (ABNORMAL) HEMAGRAM AND DIFFERENTIAL (06/06/2004 2:30 EDT) WBC 5.99 4.0 - 12.4 K/cmm [facility] RBC 5.09(H) 3.86 - 5.04 M/cmm [facility] Hemoglobin 13.9 11.6 - 15.2 gm/dl [facility] HCT 40.9 34.9 - 44.4 % [facility] MCV 80(L) 81 - 98 fl [facility] MCH 27.3 26.7 - 33.3 pg [facility] MCHC 33.9 32.1 - 35.9 gm/dl [facility] PLT 279 141 - 320 K/cmm [facility] RDW-CV 15.6(H) 11.7 - 14.6 % [facility] % Neutrophils 53.1 45.5 - 79.7 % [facility] % Lymphocytes 33.8 15.0 - 46.8 % [facility] % Monocytes 9.1 1.8 - 12.0 % [facility] % Eosinophils 3.4 0.6 - 6.9 % [facility] % Basophils 0.6 0.2 - 1.4 % [facility] ABS Neutrophils 3.18 2.20 - 8.85 K/cmm [facility] ABS Lymphs 2.02 1.09 - 3.30 K/cmm [facility] ABS Monocytes 0.54 0.1 - 0.8 K/cmm [facility] ABS Eosinophils 0.20 0.03 - 0.61 K/cmm [facility] ABS Basophils 0.03 0.01 - 0.11 K/cmm [facility] Type of Diff: Automated [facility] 06/06/2004 2:30 EDT 06/06/2004 2:40 EDT Default Emergency MD PACKAGES & DNA PROB E ORDERABLES Performing Organization Address [facility] de Phone Number [facility] [address] [place] [address] * BACTERIAL CULTURE, BLOOD (06/06/2004 2:15 EDT) Specimen Description Blood Left Arm [facility] Result STAPHYLOCOCCU S, COAGULASE NEGATIVE Isolated in one bottle. First detected in less than 24 hours. [facility] Report Status Final [id number] [facility] 06/06/2004 2:15 EDT 06/06/2004 2:42 EDT Default Emergency MD MICROBIOLOGY - GENE RAL ORDERABLES Performing Organization Address [facility] de Phone Number [facility] [address] [place] [address] * CT HEAD WO CONTRAST (06/06/2004 1:47 EDT) Anatomical Region Laterality Modality Other 06/06/2004 1:47 EDT Narrative 06/09/2009 15:04 EDT RO ABSCESS FEVER EAR PAIN MAYA- SEPTIC TWO WKS AGO CT HEAD WITHOUT CONTRAST 06/06/04 CLINICAL HISTORY: fever, ear pain, check for intracranial abscess. History sepsis two weeks ago. TECHNIQUE: Transverse non-contrast CT scans of the brain were performed from the foramen magnum to the vertex. FINDINGS: The ventricles and extra-axial CSF spaces are normal for age. There is no mass effect or midline shift. No intracranial hemorrhage is seen. There is no displaced skull fracture. CONCLUSION: Normal unenhanced head CT. D 06/06/04 T 06/09/04 /emanuel Procedure Note Liam Coley MD - 06/09/2009 RO ABSCESS FEVER EAR PAIN MAYA- SEPTIC TWO WKS AGO CT HEAD WITHOUT CONTRAST 06/06/04 CLINICAL HISTORY: fever, ear pain, check for intracranial abscess. History sepsis two weeks ago. TECHNIQUE: Transverse non-contrast CT scans of the brain were performed from the foramen magnum to the vertex. FINDINGS: The ventricles and extra-axial CSF spaces are normal for age. There is no mass effect or midline shift. No intracranial hemorrhage is seen. There is no displaced skull fracture. CONCLUSION: Normal unenhanced head CT. D 06/06/04 T 06/09/04 /emanuel Mitzi ARAUJO IMGeovany CT ORDERABLES documented in this encounter Visit Diagnoses Not on filedocumented in this encounter
--- OUTSIDE RECORDS SUMMARY | 2024-05-24 15:31 | XMS_ITS | Encounter Summary ---
Author Organization [facility] Address [address] [place] [address] Care Team Providers Care Residential Field Manager Name Role Phone Shannan Vieyra MD Primary Care Provider Unavail able Encounter Details Date Type Department Care Team (Late st Contact Info) Description 04/19/2004 Office Visit [facility] - Maple conversion [address] [place] [address] Christopher Zavala MD [address] [facility], [address] [place] [id number] Social History Tobacco Use Types Packs/Day Years Used Date Smoking Tobacco: Never Assessed Sex and Gender Information Value Date Recorded Sex Assigned at Not on file Gender Identity Not on file Sexual Orientation Not on file documented as of this encounter Progress Notes * Christophre Zavala MD - 12/12/2009 1127 EST Emergency Department ??? Physician Summary Registration Date/Time 04/19/2004 22:57 Arrived- By private vehicle. Historian- patient. Attending Note: I personally interviewed the patient and examined the patient. HISTORY OF PRESENT ILLNESS Chief complaint- FLANK PAIN and Right flank pain. Is still present (Patient was seen earlier today and discharged with a diagnosis of pylonephritis.Blood cultures returned positive for gram negative rods and she was calledback to the ED.Has had multiple episodes of pylonephritis in the past.). It is described as located in the right flank. Severity described as severe at its maximum. When seen inthe E.D., severity described as moderate. She has had nausea and loss of appetite. No vomiting or diarrhea. The patient has had similar symptoms previously. Additional history - She has had fever, chills, fatigue and nausea and experienced sweats. The patient has had hematuria. The patient has had moderate back pain (right flank pain.). No eye irritation, ear pain, nasal congestion, sore throat or chest pain. No palpitations, difficulty breathing, cough, vomiting or abdominal pain. No numbness, weakness or easy bruising. REVIEW OF SYSTEMS The patient has had fever, chills, fatigue, nausea and back pain. She has experienced sweats. The patient has had hematuria. No eye irritation, ear pain, nasal congestion, sore throat or chest pain. No palpitations, difficulty breathing, vomiting, diarrhea or black stools. No bloody stools, skin rash, numbness, weakness or easy bruising. PAST HISTORY pyelonephritis. Medications: Atenolol. Cipro. Allergies: PENICILLIN. SULFA DRUGS. SOCIAL HISTORY Nonsmoker. PHYSICAL EXAM Appearance: Alert. No acute distress. Eyes: Pupils equal, round and reactive to light. Eyes normal inspection. ENT: Ears normal. Nose normal. Pharynx normal. Neck: Normal inspection. Neck supple. CVS: Normal heart rate and rhythm. Respiratory: No respiratory distress. Breath sounds normal. Chest nontender. Abdomen: Abdomen soft and nontender. No guarding or rebound tenderness. Back: Moderate CVA tenderness on the right. Skin: Normal skin color. Skin warm anddry. No rash. Extremities: Extremities exhibit normal ROM. No pedal edema. Neuro: Oriented X 3. No motor deficit. No sensory deficit. Reflexes normal. LABS, X-RAYS, AND EKG CBC: WBC 12.09 HCT 40.2 Platelets 219 Chemistries: Na- 138 K- 3.4 Cl- 103 HCO3- 22 BUN- 6 Cr- 0.6 PROGRESS AND PROCEDURES E.D. Course: called back with blood cultures positive for gram negative rods.Patient to recieve IV antibiotics in the ED and will be admitted to the hospital.Also recieved IV hydration. Cipro 400 mg IVPB. Old medical records reviewed. Disposition: Admitted to [facility]. CLINICAL IMPRESSION Pyelonephritis. Christopher Zavala MD (Electronically signed Christopher Zavala MD 04/20/2004 1:19) Physician's Clinical Report Addenda Registration Date: 04/19/2004 04/21/2004 7:50 04/21/04 pt seen 04/19 blood culture + E Coli and Urine culture + E COli greater than 100,000 CFU/ml pt given Cipro + SUsceptibility pt also admitted 04/19 signed Cristy Otero R.N. - 04/21/2004 7:50) Emergency Department ??? Nursing Summary Registration Date/Time 04/19/2004 22:57 TRIAGE Initial Assessment Triage time 22:55 Apr 19 2004 --22:55 Vivian Ramirez R.N. Acuity: LEVEL 3. BP: 134 / 88 HR: 119 RR: 18 Temp: 36.2 oral Alert. No acute distress. --22:58 Vivian Ramirez R.N. Medications (ATENOLOL, TAPAZOLE, BIRTHCONTROL). --22:58 Vivian Ramirez R.N. Allergies (SULFA, PEN). --22:58 Vivian Ramirez R.N. History Chief Complaint: (RECHECK, POSITIVE BLOOD CULTURES). This started last night. PAST HX: (ST). SOCIAL HX: Nonsmoker. Denies alcohol use. Arrived by private vehicle and accompanied by friend. Historian: patient. --22:58 Vivian Ramirez R.N. NURSING PROGRESS NOTES Progress CIPROFLOXACIN 400 mg IVPB over 1 hour, via IV pump. --23:53 Yumiko Hernandez R.N. IV / I&O Flowsheet IV site #1, location right hand. Location (20 ga). Saline lock in place. IV fluid started- #1 bag NS 1000 cc. Rate - wide open. --23:53 Yumiko Hernandez R.N. IV line accessed- blood drawn. --23:54 Yumiko Hernandez R.N. DISPOSITION / DISCHARGE Admitted (m6). Transported via stretcher. Report was given. --02:06 Ector Shannon R.N., R.N. Locked/Released at 04/20/2004 6:04 by LizAudet, R.N. documented in this encounter Plan of Treatment Not on file documented as of this encounter Visit Diagnoses Not on filedocumented in this encounter Care Teams Residential Field Manager Relationship Specialty Start Date End Date Shannan Vieyra MD PCP - General 04/08/09 03/15/19 documented as of this encounter
--- OUTSIDE RECORDS SUMMARY | 2024-05-24 15:31 | XMS_ITS | Encounter Summary ---
Author Organization [facility] Address [address] [place] [address] Care Team Providers Care Screw Machine Setter Name Role Phone Shannan Vieyra MD Primary Care Provider Unavail able Encounter Details Date Type Department Care Team (Late st Contact Info) Description 02/08/2004 Office Visit [facility] - Maple conversion [address] [place] [address] Adriana August, HOME APPLIANCE WASHING MACHINE MECHANIC [address] [place] [id number] Social History Tobacco Use Types Packs/Day Years Used Date Smoking Tobacco: Never Assessed Sex and Gender Information Value Date Recorded Sex Assigned at Not on file Gender Identity Not on file Sexual Orientation Not on file documented as of this encounter Progress Notes * Adriana August MD - 12/12/2009 1037 EST [facility] ??? Physician Summary Registration Date/Time 02/08/2004 16:01 Time Seen (17:18 ). Arrived- By private vehicle. Historian- patient. HISTORY OF PRESENT ILLNESS Chief Complaint: BACK PAIN. Onset was last night and it is still present and now worse. It is described as being severe and in the area of the left flank and right flank. The quality is noted to be pain and similar to prior episodes. No radiation. Associated symptoms - No bladder dysfunction, bowel dysfunction, sensory loss or motor loss. Patient denies aninjury. No other injury. The patient has had similar symptoms many times previously. Not recently seen/assessed. REVIEW OF SYSTEMS The patient has had fever, chills and nausea. 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 No skin rash, headache,sore throat, abdominal pain or vomiting. No diarrhea. PAST HISTORY UTI: pyelonephritis. Graves disease, PSVT Has not had urinary calculi. Medications: atenolol, tapezole Allergies: PCN, sulfa SOCIAL HISTORY Nonsmoker. ADDITIONAL NOTES The nursing notes have been reviewed. PHYSICAL EXAM Appearance: Alert. No acute distress. Vital Signs: The vital signs have been reviewed- febrile. Neck: Normal inspection. Neck nontender. Painless ROM. CVS: Heart sounds normal. tachy Respiratory: No respiratory distress. Breath sounds normal. Abdomen: Abdomen soft and nontender. No organomegaly. No pulsatile mass. Back: Moderate CVA tenderness on the right and left. Painless ROM. No vertebral point tenderness orsoft tissue tenderness. Skin: Normal skin color. Diaphoresis. Extremities: Extremities exhibit normal ROM. Extremities nontender. Neuro: Mood/affect normal. PROGRESS AND PROCEDURES E.D. Course: urine micro: wbc 1-5, rbc none, squam none, bacteria freq urine sent for culture Patient and family counseled regarding the patient's diagnosis and need for follow-up. Disposition: Discharged home in stable condition. CLINICAL IMPRESSION Acute pyelonephritis. INSTRUCTIONS Increase fluid intake. Fever control with tylenol or ibuprofen. Vicodin for severe pain. Pyridium for burning, but may also help with flank pain. Please follow up with your doctor next week. Return if not feeling significantly better by tomorrow noonish. Prescription Medications: Vicodin 5 mg: take 1 to 2 orally every 6 hours as needed for pain.Dispense fifteen (15). No refills. Generic substitute OK. Cipro 500 mg: take 1 tab orally every 12 hours for 10 days. Dispense 20. No refills. Generic substitute OK. Pyridium 200 mg: take 1 orally every 8 hours as needed for urinary problems. Dispense ten (10). No refill. Adriana August A.P.R.N. (Electronically signed Adriana August A.P.R.N. 02/08/2004 17:42) Physician's Clinical Report Addenda Registration Date: 02/08/2004 02/08/2004 17:46 also add urinary frequency as diagnosis signed Adriana August A.P.R.N. - 02/08/2004 17:46) 02/08/2004 17:47 culture added signed Adriana August A.P.R.N. - 02/08/2004 17:47) 02/11/2004 11:10 Left message with pt to call regarding urine culture results. Pt seen at [facility] 02/08/04, dx: pyelonephritis. Pt on Cipro. Culture results show >100,000 lactobacillus and <10,000 mixed grampoitive. This is a contaminated specimen and therefore diagnosis is likely not pyelonephritis. Likely viral syndrome with fever and back pain. Please check status of pt and advise to d/c cipro. If ptnot feeling better (still febrile, etc) please return to clinic. signed Adriana August A.P.R.N. - 02/11/2004 11:10) 02/11/2004 12:19 spoke with pt this am regarding culture results. Pt advised that culture shows sample contaminationand no true urinary pathogens, pt advised sxs probably related to viral syndrome and can stop medication. Pt states feeling much better, no flank pain or fever, wants to continue medication. Discussed pros and cons with pt, pt would like to continue meds and f/u if sxs return. signed Adriana August A.P.R.N. - 02/11/2004 12:19) [facility] ??? Nursing Summary Registration Date/Time 02/08/2004 16:01 TRIAGE Initial Assessment Triage time 17:01 --1705 Sylvia Krishna R.N. BP: 108 / 56 lying L arm manual HR: 104 RR: 16 Temp: 100.3 oral --1707 Sylvia Krishna R.N. Medications Atenolol (75 mg qd). control pills. (Tapisol 10 mg TID). --1704 Sylvia Krishna R.N. Allergies PENICILLIN. SULFA DRUGS. --1704 Sylvia Krishna R.N. History Chief Complaint: (r/o UTI). This started yesterday. Pain level now: 0/10. The patient has had fever and nausea. The patient hashad constant, sharp right-sided and left-sided flank pain. No vomiting, urgency of urination, frequent urination, hematuria or vaginal discharge. No vaginal discomfort. PAST HX: Heart disease (Hx tachycardia). Last normal menstrual periodwas 1 week ago. SOCIAL HX: Nonsmoker. Arrived by private vehicle. Historian: patient. --1704 Sylvia Krishna R.N. PHYSICAL ASSESSMENT Alert. Appears in noacute distress. Oriented X 3. Respirations not labored. Skin is warm and dry. --1707 Sylvia Krishna R.N. NURSING PROGRESS NOTES Progress Patient ready for evaluation- chart flagged. --1708 Sylvia Krishna R.N. (Urine culture sent). --1757 Sylvia Krishna R.N. DISPOSITION / DISCHARGE Condition at departure: stable. No barriers to learning present. Discharge instructions reviewed with the patient. Reviewed medication precautions, dosing and course; prescription (s) given to the patient. Patient verbalized understanding. The patient was discharged home. The patient left the Emergency Department ambulatory. --1805 Sylvia Krishna R.N. [place], Joyce R.N. Locked/Released at 02/08/2004 18:07 by Sylvia Krishna R.N. documented in this encounter Plan of Treatment Not on file documented as of this encounter Visit Diagnoses Not on filedocumented in this encounter Care Teams Screw Machine Setter Relationship Specialty Start Date End Date Shannan Vieyra MD PCP - General 04/08/09 03/15/19 documented as of this encounter
--- OUTSIDE RECORDS SUMMARY | 2024-05-24 15:31 | XMS_ITS | Encounter Summary ---
Author Organization [facility] Address [address] [place] [address] Care Team Providers Care Headstart Teacher Name Role Phone Shannan Vieyra MD Primary Care Provider Leida Robledo PA-C Primary Care Provi melvin Comfort Zelaya NP Primary Care Provider [phone] Encounter Details Date Type Department Care Team (Late st Contact Info) Description 06/10/2004 Before PRISM Converted Visit (Maple) [facility] - Maple conversion [address] [place] [address] Paradise Padilla MD [address] [place] [id number] Social History Tobacco Use Types Packs/Day Years Used Date Smoking Tobacco: Never Assessed Sex and Gender Information Value Date Recorded Sex Assigned at Not on file Gender Identity Not on file Sexual Orientation Not on file documented as of this encounter Plan of Treatment Not on file documented as of this encounter Procedures Procedure Name Priority Date/Time Associated Diagnosis Comments BACTERIAL CULTURE/SMEAR, FLUID Routine 06/10/2004 20:30 EDT HOLD Routine 06/10/2004 20:30 EDT CELL COUNT,CSF Routine 06/10/2004 20:30 EDT FLUID DIFFERENTIAL Routine 06/10/2004 20 :30 EDT TOTAL PROTEIN, CSF Routine 06/10/2004 20 :30 EDT GLUCOSE CSF Routine 06/10/2004 20:30 EDT BACTERIAL CULTURE, BLOOD Routine 06/10/2004 19:00 EDT CREATININE Routine 06/10/2004 18:20 EDT HOLD Routine 06/10/2004 18:20 EDT COMPLETE BLOOD COUNT AND DIFFERENTIAL Routine 06/10/2004 18:20 EDT BUN Routine 06/10/2004 18:20 EDT GLUCOSE, SERUM Routine 06/10/2004 18:20 EDT ELECTROLYTES Routine 06/10/2004 18:20 EDT documented in this encounter Results * BACTERIAL CULTURE/SMEAR, FLUID (06/10/2004 20:30 EDT) Specimen Description Spinal Fluid Specimen processed uncentrifuged [facility] Gram Smear Result No polys seen No mononuclear cells seen. No bacteria seen [facility] Result No growth [facility] Report Status Final [id number] [facility] 06/10/2004 20:3 0 EDT 06/10/2004 20:34 EDT Default Emergency MICROBIOLOGY - GENE RAL ORDERABLES [facility] [address] [place] [address] * HOLD (06/10/2004 20:30 EDT) Hold Fluid [facility] 06/10/2004 20:3 0 EDT 06/10/2004 20:31 EDT Default Emergency MD CHEMISTRY & BLOOD G ORDERABLES [facility] [address] [place] [address] * (ABNORMAL) FLUID DIFFERENTIAL (06/10/2004 20:30 EDT) Lymphocyte, CSF 72 40 - 80 % [facility] [place]/Macro, CSF 5(L) 15 - 45 % [facility] Eosinophil, CSF 23 % [facility] 06/10/2004 20:3 0 EDT 06/10/2004 20:31 EDT Default Emergency MD GEN LAB UNIT COL[facility] T ORDERABLES Performing Organization Address [facility] Co de Phone Number [facility] [address] [place] [address] * (ABNORMAL) TOTAL PROTEIN, CSF (06/10/2004 20:30 EDT) Total Protein, CSF 108(H) 15 - 60 mg/dl [facility] 06/10/2004 20:3 0 EDT 06/10/2004 20:31 EDT Default Emergency MD GEN LAB UNIT [facility] ORDERABLES Performing Organization Address [facility] de Phone Number [facility] [address] [place] [address] * GLUCOSE CSF (06/10/2004 20:30 EDT) Glucose, CSF 38 mg/dl [facility] Comment: Ref Range=60-80% of plasma glucose result 06/10/2004 20:3 0 EDT 06/10/2004 20:31 EDT Default Emergency MD GEN LAB UNIT [facility] T ORDERABLES Performing Organization Address [facility] de Phone Number [facility] [address] [place] [address] * (ABNORMAL) CELL COUNT,CSF (06/10/2004 20:30 EDT) RBC, CSF 2 /cmm [facility] Nucleated Cells 256(H) 0 - 5 /cmm [facility] Total Vol. 4.0 ml [facility] Tube Cntd. 4 [facility] Tube Vol. 1.0 ml [facility] CSF Comment Clear and Colorless [facility] 06/10/2004 20:3 0 EDT 06/10/2004 20:31 EDT Default Emergency GEN LAB UNIT [facility] T ORDERABLES Performing Organization Address [facility] Co de Phone Number [facility] [address] [place] [address] * BACTERIAL CULTURE, BLOOD (06/10/2004 19:00 EDT) Specimen Description Blood Left Forearm Pediatric bottle received [facility] Result Volume of blood collected may not be adequate for detection of bacteremia/se pticemia. No growth [facility] Report Status Final [id number] [facility] 06/10/2004 19:0 0 EDT 06/10/2004 19:13 EDT Default Emergency MD MICROBIOLOGY - GENE RAL ORDERABLES Performing Organization Address [facility] de Phone Number [facility] [address] [place] [address] * GLUCOSE, SERUM (06/10/2004 18:20 EDT) Glucose, Serum 99 70 - 110 mg/dl [facility] 06/10/2004 18:2 0 EDT 06/10/2004 18:50 EDT Default Emergency MD CHEMISTRY & BLOOD G ORDERABLES Performing Organization Address [facility] Co de Phone Number [facility] [address] [place] [address] * ELECTROLYTES (06/10/2004 18:20 EDT) Sodium 140 136 - 145 mEq/L [facility] Potassium 3.9 3.5 - 5.0 mEq/L [facility] Chloride 104 96 - 110 mEq/L [facility] CO2 25 24 - 32 mEq/L [facility] 06/10/2004 18:2 0 EDT 06/10/2004 18:50 EDT Default Emergency MD CHEMISTRY & BLOOD G ORDERABLES Performing Organization Address [facility] Co de Phone Number [facility] [address] [place] [address] * HOLD (06/10/2004 18:20 EDT) Hold Sample for coagulation will be discarded after 4 hours [facility] 06/10/2004 18:2 0 EDT 06/10/2004 18:50 EDT Default Emergency MD CHEMISTRY & BLOOD G ORDERABLES Performing Organization Address [facility] Co de Phone Number [facility] [address] [place] [address] * CREATININE (06/10/2004 18:20 EDT) Creatinine 0.8 0.7 - 1.5 mg/dl [facility] 06/10/2004 18:2 0 EDT 06/10/2004 18:50 EDT Default Emergency HISTORICAL LAB FOR SQ LOAD Performing Organization Address [facility] de Phone Number [facility] [address] [place] [id number] * (ABNORMAL) HEMAGRAM AND DIFFERENTIAL (06/10/2004 18:20 EDT) WBC 3.58(L) 4.0 - 12.4 K/cmm [facility] RBC 5.57(H) 3.86 - 5.04 M/cmm [facility] Hemoglobin 15.2 11.6 - 15.2 gm/dl [facility] HCT 45.5(H) 34.9 - 44.4 % [facility] MCV 82 81 - 98 fl [facility] MCH 27.3 26.7 - 33.3 pg [facility] MCHC 33.4 32.1 - 35.9 gm/dl [facility] PLT 240 141 - 320 K/cmm [facility] RDW-CV 15.6(H) 11.7 - 14.6 % [facility] Neutrophils 34.0(L) 45.5 - 79.7 % [facility] Lymphocytes 47.0(H) 15.0 - 46.8 % [facility] Monocytes 17.0(H) 1.8 - 12.0 % [facility] Eosinophils 1.0 0.6 - 6.9 % [facility] Basophils 1.0 0.2 - 1.4 % [facility] ABS Neutrophils 1.22(L) 2.20 - 8.85 K/cmm [facility] ABS Lymphs 1.67 1.09 - 3.30 K/cmm [facility] ABS Monocytes 0.61 0.1 - 0.8 K/cmm [facility] ABS Eosinophils 0.04 0.03 - 0.61 K/cmm [facility] ABS Basophils 0.04 0.01 - 0.11 K/cmm [facility] RBC Morphology Normal [facility] Type of Diff: Manual [facility] 06/10/2004 18:2 0 EDT 06/10/2004 18:50 EDT Default Emergency PACKAGES & DNA PROB E ORDERABLES Performing Organization Address [facility] de Phone Number [facility] [address] [place] [address] * BUN (06/10/2004 18:20 EDT) BUN 11 10 - 26 mg/dl [facility] 06/10/2004 18:2 0 EDT 06/10/2004 18:50 EDT Default Emergency CHEMISTRY & BLOOD G ORDERABLES Performing Organization Address [facility] Co de Phone Number [facility] [address] [place] [address] documented in this encounter Visit Diagnoses Not on filedocumented in this encounter Care Teams Headstart Teacher Relationship Specialty Start Date End Date Shannan Vieyra MD PCP - General 04/08/09 03/15/19 Leida Cerda PA-C PCP - General 03/16/19 03/07/22 Comfort Zelaya NP [address] [place] [id number] PCP - General Family Medicine - Primary Care 03/08/22 documented as of this encounter
--- OUTSIDE RECORDS SUMMARY | 2024-05-24 15:31 | XMS_ITS | Encounter Summary ---
Author Organization [facility] Address [address] [place] [address] Care Team Providers Care Devops Engineer Name Role Phone Shannan Vieyra MD Primary Care Provider Unavail able Encounter Details Date Type Department Care Team (Late st Contact Info) Description 04/19/2004 Office Visit [facility] - Maple conversion [address] [place] [address] Richard Fajardo MD [facility] [place] [address] Social History Tobacco Use Types Packs/Day Years Used Date Smoking Tobacco: Never Assessed Sex and Gender Information Value Date Recorded Sex Assigned at Not on file Gender Identity Not on file Sexual Orientation Not on file documented as of this encounter Progress Notes * Richard Fajardo MD - 12/12/2009 1129 EST Emergency Department ??? Physician Summary Registration Date/Time 04/19/2004 2:59 Arrived- By private vehicle. Historian- patient. HISTORY OF PRESENT ILLNESS Chief complaint- ABDOMINAL PAIN and FLANK PAIN. This started today and is still present. It is described as pain and it is described as located in the right flank and the right upper quadrant. Severity described as moderate at its maximum. When seen in the E.D., severity described as moderate. She has had nausea. No loss of appetite, vomiting or diarrhea. The patient has had similar symptoms previously. Not recently seen/assessed. REVIEW OF SYSTEMS The patient has had fever and chills. No constipation, black stools, hematemesis, difficulty with urination or pain with urination. No urinary frequency, headache, sore throat, blurred vision or chest pain. No difficulty breathing, cough, joint pain, skin rash or back pain. PAST HISTORY See nurses notes. history of pyelonephritis Medications: See nurses notes. Allergies: See nurses notes. SOCIAL HISTORY Nonsmoker. ADDITIONAL NOTES The nursing notes have been reviewed. PHYSICAL EXAM Appearance: Alert. No acute distress. Vital Signs: The vital signs have been reviewed. Eyes: Pupils equal, round and reactive to light. ENT: Pharynx normal. Neck: Normal inspection. Neck supple. CVS: Normal heart rate and rhythm. Heart sounds normal. Respiratory: No respiratory distress. Breath sounds normal. Chest nontender. Abdomen: Tenderness in the right upper quadrant. Abdomen soft. No organomegaly. No guarding or rebound tenderness. Back: Mild CVA tenderness on the right. Skin: Normal skin color. Skin warm and dry. No rash. Extremities: Extremities exhibit normal ROM. Nopedal edema. Neuro: Oriented X 3. No motor deficit. No sensory deficit. LABS, X-RAYS, AND EKG Abdominal CT: positive for hydronephrosis and hydro-ureter without stone seen CBC: WBC 11.24 Urinalysis: (dipstick). PROGRESS AND PROCEDURES Disposition: Discharged home. Condition: good. CLINICAL IMPRESSION Pyelonephritis. INSTRUCTIONS Prescription Medications: Phenergan suppositories 25 mg: Insert 1 rectally every 4 to 6 hours as needed for nausea or vomiting. Dispense 10. No refills. Generic substitute OK. Vicodin 5 mg: take 1 to 2 orally every 6 hours as needed for pain. Dispense fifteen (15). No refills. Generic substitute OK. Cipro 500 mg: take 1 tab orally every 12 hours for 10 days. Dispense 20. No refills. Generic substitute OK. Follow-up: Follow up with [facility] Richard Fajardo M.D. (Electronically signed Richard Fajardo M.D. 04/21/2004 15:58) Physician's Clinical Report Emergency Department ??? Nursing Summary Registration Date/Time 04/19/2004 2:59 TRIAGE Initial Assessment Triage time 03:00 Acuity: LEVEL 3. BP: 154 / 80 HR: 148 RR: 12 Temp: 38 O2 saturation: 99 % room air --03:04 Yumiko Hernandez R.N. Medications (BCP, atenolol, tapazol). --03:04 Yumiko Hernandez R.N. Allergies (sulfa, PCN). --03:04 Yumiko Hernandez R.N. History Chief Complaint: (right side pain). (about 2 days). Pain level now: 7/10. The patient has had nausea and vomiting. (dizziness). 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 PAST HX: Last normal menstrual period- several months ago; taking seasonal control (Graves disease, tachycardia, history of kidney infections). SOCIAL HX: Nonsmoker. Denies alcohol use. Historian: patient. --03:04 Yumiko Hernandez R.N. Interventions ID band on patient. --03:04 Yumiko Hernandez R.N. NURSING PROGRESS NOTES Progress Pulse oximeter applied. Patient gowned. Head of bed elevated. Call light placed in reach. Side rails up. --03:14 Lashonda Clemente, L.N.A. 12-lead EKG was performed by a nurse and shown to the ED physician. --03:40 Barbara Blake R.N. IV started. IV started: #1 site, right wrist, 18g angiocath, using aseptic technique, with good blood return; one attempt. Saline lock placed; flushed with 5 cc saline; fluid - 1000 cc bag RL infusing; rate =wide open. --05:14 Raine Rubio R.N. (BC x2 drawn). --05:14 Raine Rubio R.N. Clean catch urine collected. Urine test negative; dip negative for ketones. Urine sample sent to lab for culture (SG 1.010, BLO 1+, pH 6.5, PRO 2+, URO 0.2 E.U./dL, ELVI 2+, all others negative). --05:33 Garry YouMChen BP: 109 / 60 HR: 93- normal sinus rhythm; frequent unifocal PVCs. RR: 20 Temp: 37.4 tympanic O2 saturation: 98 % room air --05:34 Yumiko Hernandez R.N. returned from [place] by stretcher with tech. --06:35 Briana Vo R.N. BP: 138/79 lying L arm auto (reg adult cuff). HR: 126 RR: 16 Temp: 36.5 C (tympanic). O2 saturation: 100 % room air (pt states she feels worse.). Patient reports current pain level as 10/10. Call light placed in reach of patient. Side rails up x 1. Bed placed in lowest position. Brakes of bed on. --07:09 Tata Monroy CIPROFLOXACIN 400 mg IVPB (pre-mix) via IV pump. IV patency established. IVsite checked: no pain, redness, or swelling. IV flushed thoroughly pre- and post- medication administration. MORPHINE 3mg diluted with 10cc NS slow IVP. --07:33 Raine Hollingsworth R.N. IV / I&O Flowsheet IV site #1, location left forearm (appears to have inflitrated- painful and swelling with fluid infusion... IV D/C'd). IV line accessed- flushed with saline and blood drawn and site was prepped with alcohol and Betadine; good blood return was noted; blood was withdrawn; (Tubes sent- Mandi Riojas, cultures x1). --05:31 Garry YouMChen IV site discontinued: IV catheter intact, dressing applied. --08:42 Raine Hollingsworth R.N. DISPOSITION / DISCHARGE Condition at departure: improved. No barriers to learning present. Discharge instructions reviewed with the patient. Reviewed medication precautions, dosing and course; prescription (s) given to the patient (Prescriptions for Vicodin, Cipro, Phenergan given.). Reviewed referral to urologist. Patient verbalized understanding. The patient was discharged home and accompanied by machine spreader. The patient left the Emergency Department ambulatory and via private vehicle. --08:44 Ector Blake R.N., L.N.A. Alice Barber R.N. Donna Toohey, R.N. Brian Wellnitz E.M.T. Briana VoEctor carrillo R.N. Kathy Karg R.N. Locked/Released at 04/20/2004 8:10 by Aura Cardoso R.N. documented in this encounter Plan of Treatment Not on file documented as of this encounter Visit Diagnoses Not on filedocumented in this encounter Care Teams Devops Engineer Relationship Specialty Start Date End Date Shannan Vieyra MD PCP - General 04/08/09 03/15/19 documented as of this encounter
--- OUTSIDE RECORDS SUMMARY | 2024-05-24 15:31 | XMS_ITS | Encounter Summary ---
Author Organization [facility] Address [address] [place] [address] Care Team Providers Care Director Of Home Care Hospice Name Role Phone Shannan Vieyra MD Primary Care Provider Unavail able Encounter Details Date Type Department Care Team (Late st Contact Info) Description 07/13/2004 Office Visit [facility] Cardiology - [address] [address] Pete Richey MD Discharge Disposition: Auto Discharge Social History [...] Name Priority Date/Time Associated Diagnosis Comments URINE MICROSCOPIC Routine 07/13/2004 10: 00 EDT URINALYSIS WITH MICROSCOPIC IF POSITIVE Routine 07/13/2004 10:00 EDT BACTERIAL CULTURE, URINE Routine 07/13/2004 10:00 EDT documented in this encounter Results * BACTERIAL CULTURE, URINE (07/13/2004 10:00 EDT) Specimen Description Urine [facility] Result Mixed organisms, culture interpretation difficult. 10,000 to 100,000 CFU/ml STREPTOCOCCUS, BETA HEMOLYTIC GROUP B (STREPTOCOCCUS AGALACTIAE) [facility] Report Status Final [id number] [facility] 07/13/2004 10:0 0 EDT 07/13/2004 15:35 EDT Richard Covarrubias MD MICROBIOLOGY - GENERAL ORDERABLES Performing Organization Address [facility]/ZIP Co de Phone Number [facility] [address] [place] [address] * (ABNORMAL) URINE MICROSCOPIC (07/13/2004 10:00 EDT) WBC, UA 5 to 10 0 - 5 /HPF [facility] RBC, UA less than 1 0 - 5 /HPF [facility] Squam Epithel, UA Innum(A) NS /HPF [facility] Renal Epithel, UA None seen NS /HPF [facility] Bacteria, UA Rare(A) NS /HPF [facility] Crystals, UA None seen /HPF [facility] Hyaline Casts, UA None seen /LPF [facility] UA Comment Microscopic results are unreliable on urines unrefrig >2hrs or refrig >8hrs. [facility] Additional Findings Small sample, less than 12 ml received. [facility] 07/13/2004 10:0 0 EDT 07/13/2004 15:35 EDT Richard Covarrubias MD URINALYSIS ORD ERABLES Performing Organization Address [facility] Co de Phone Number [facility] [address] [place] [address] * (ABNORMAL) URINALYSIS (07/13/2004 10:00 EDT) Color, UA Yellow [facility] Clarity, UA Hazy [facility] Glucose, UA Norm NORM [facility] Bilirubin, UA Neg NEG [facility] Ketones, UA Neg NEG [facility] Specific [place], Urine 1.020 1.005 - 1.02 [facility] Blood, UA Trace(A) NEG [facility] pH, UA 6.0 5.0 - 9.0 [facility] Protein, UA Neg NEG [facility] Urobilinogen, UA Norm NORM mg/dL [facility] Nitrite, UA Neg NEG [facility] Leuk Esterase Mod(A) NEG [facility] 07/13/2004 10:0 0 EDT 07/13/2004 15:35 EDT Richard Covarrubias MD URINALYSIS ORD ERABLES Performing Organization Address City/State/[facility] Co de Phone Number [facility] [address] [place] [address] documented in this encounter Visit Diagnoses Not on filedocumented in this encounter Care Teams Director Of Home Care Hospice Relationship Specialty Start Date End Date Shannan Vieyra MD PCP - General 04/08/09 03/15/19 documented as of this encounter
--- OUTSIDE RECORDS SUMMARY | 2024-05-24 15:31 | XMS_ITS | Encounter Summary ---
Author Organization [facility] Address [address] [place] [address] Care Team Providers Care Piano Case Maker Name Role Phone Shannan Vieyra MD Primary Care Provider Unavail able Encounter Details Date Type Department Care Team (Late st Contact Info) Description 06/12/2004 Results Only [facility] - Maple conversion [address] [place] [address] Angelo William MD Social History Tobacco Use Types Packs/Day [...] Date/Time Associated Diagnosis Comments COMPLETE BLOOD COUNT AND DIFFERENTIAL Routine 06/12/2004 7:55 EDT COMPLETE BLOOD COUNT AND DIFFERENTIAL Routine 06/12/2004 7:55 EDT COMPLETE BLOOD COUNT AND DIFFERENTIAL Routine 06/12/2004 7:55 EDT COMPLETE BLOOD COUNT AND DIFFERENTIAL Routine 06/12/2004 7:55 EDT documented in this encounter Results * (ABNORMAL) HEMAGRAM AND DIFFERENTIAL (06/12/2004 7:55 EDT) % Neutrophils 39.4(L) 45.5 - 79.7 % [facility] % Lymphocytes 45.9 15.0 - 46.8 % [facility] % Monocytes 10.8 1.8 - 12.0 % [facility] % Eosinophils 3.5 0.6 - 6.9 % [facility] % Basophils 0.4 0.2 - 1.4 % [facility] ABS Neutrophils 2.36 2.20 - 8.85 K/cmm [facility] ABS Lymphs 2.75 1.09 - 3.30 K/cmm [facility] ABS Monocytes 0.65 0.1 - 0.8 K/cmm [facility] ABS Eosinophils 0.21 0.03 - 0.61 K/cmm [facility] ABS Basophils 0.03 0.01 - 0.11 K/cmm [facility] Type of Diff: Automated [facility] 06/12/2004 7:55 EDT 06/12/2004 7:57 EDT Angelo William MD PACKAGES & DNA PROBE ORDERABLES Performing Organization Address [facility] Co de Phone Number [facility] [address] [place] [address] * (ABNORMAL) HEMAGRAM AND DIFFERENTIAL (06/12/2004 7:55 EDT) WBC 6.00 4.0 - 12.4 K/cmm [facility] RBC 4.80 3.86 - 5.04 M/cmm [facility] Hemoglobin 13.5 11.6 - 15.2 gm/dl [facility] HCT 39.1 34.9 - 44.4 % [facility] MCV 81 81 - 98 fl [facility] MCH 28.1 26.7 - 33.3 pg [facility] MCHC 34.5 32.1 - 35.9 gm/dl [facility] PLT 202 141 - 320 K/cmm [facility] RDW-CV 15.8(H) 11.7 - 14.6 % [facility] 06/12/2004 7:55 EDT 06/12/2004 7:57 EDT Angelo William MD PACKAGES & DNA PROBE ORDERABLES [facility] [address] [place] [address] * (ABNORMAL) HEMAGRAM AND DIFFERENTIAL (06/12/2004 7:55 EDT) % Neutrophils 39.4(L) 45.5 - 79.7 % [facility] % Lymphocytes 45.9 15.0 - 46.8 % [facility] % Monocytes 10.8 1.8 - 12.0 % [facility] % Eosinophils 3.5 0.6 - 6.9 % [facility] % Basophils 0.4 0.2 - 1.4 % [facility] ABS Neutrophils 2.36 2.20 - 8.85 K/cmm [facility] ABS Lymphs 2.75 1.09 - 3.30 K/cmm [facility] ABS Monocytes 0.65 0.1 - 0.8 K/cmm [facility] ABS Eosinophils 0.21 0.03 - 0.61 K/cmm [facility] ABS Basophils 0.03 0.01 - 0.11 K/cmm [facility] Type of Diff: Automated [facility] 06/12/2004 7:55 EDT 06/12/2004 7:57 EDT Angelo William MD PACKAGES & DNA PROBE ORDERABLES [facility] [address] [place] [address] * (ABNORMAL) HEMAGRAM AND DIFFERENTIAL (06/12/2004 7:55 EDT) Pathologist [facility] WBC 6.00 4.0 - 12.4 K/cmm [facility] RBC 4.80 3.86 - 5.04 M/cmm [facility] Hemoglobin 13.5 11.6 - 15.2 gm/dl [facility] HCT 39.1 34.9 - 44.4 % [facility] MCV 81 81 - 98 fl [facility] MCH 28.1 26.7 - 33.3 pg [facility] MCHC 34.5 32.1 - 35.9 gm/dl [facility] PLT 202 141 - 320 K/cmm [facility] RDW-CV 15.8(H) 11.7 - 14.6 % [facility] 06/12/2004 7:55 EDT 06/12/2004 7:57 EDT Angelo William MD PACKAGES & DNA PROBE ORDERABLES Performing Organization Address City/State/[facility] Co de Phone Number [facility] [address] [place] [address] documented in this encounter Visit Diagnoses Not on filedocumented in this encounter Care Teams Piano Case Maker Relationship Specialty Start Date End Date Shannan Vieyra MD PCP - General 04/08/09 03/15/19 documented as of this encounter
--- OUTSIDE RECORDS SUMMARY | 2024-05-24 15:31 | XMS_ITS | Encounter Summary ---
Author Organization [facility] Address [address] [place] [address] Care Team Providers Care Peanut Separator Name Role Phone Shannan Vieyra MD Primary Care Provider Unavail able Encounter Details Date Type Department Care Team (Late st Contact Info) Description 11/13/[address] [facility] Family [facility] - [place] [id number] [place] [address] Leida Cerda PA-C 402 [facility] [address] [place], [place] [address] Social History Tobacco Use Types Packs/Day Years [...] Diagnosis Comments GROUP A STREP CULTURE Routine 11/13/2003 12:18 EST COMPLETE BLOOD COUNT AND DIFFERENTIAL Routine 11/13/2003 12:18 EST BACTERIAL CULTURE, URINE Routine 11/13/2003 12:18 EST documented in this encounter Results * BACTERIAL CULTURE, URINE (11/13/2003 12:18 EST) Specimen Description Urine [facility] Result Greater than 100,000 CFU/ml ENTEROCOCCU S SPECIES [facility] Report Status Final [id number] [facility] 11/13/2003 12:1 8 EST 11/13/2003 16:52 EST Narrative Organism Antibiotic Method Susceptibility Greater than 100,000 cfu/mlenterococcus species Ampicillin SUSCEPTIBILITY (SAÚL) 0.5 Susceptible Susceptible Greater than 100,000 cfu/mlenterococcus species Nitrofurantoin SUSCEPTIBILITY (SAÚL) <=32 Susceptible Susceptible Greater than 100,000 cfu/mlenterococcus species Ciprofloxacin SUSCEPTIBILITY (SAÚL) 1 Susceptible Susceptible Leida Cerda PA-C MICROBIOLOG Y - GENERAL ORDERABLES Performing Organization Address [facility] Co de Phone Number [facility] [address] [place] [address] * PHARYNGITIS CULTURE (11/13/2003 12:18 EST) Specimen Description Throat [facility] Result NO GROUP A BETA STREPTOCOCCI ISOLATED [facility] Report Status Final [id number] [facility] 11/13/2003 12:1 8 EST 11/13/2003 16:41 EST Leida Cerda PA-C MICROBIOLOG Y - GENERAL ORDERABLES Performing Organization Address [facility] de Phone Number [facility] [address] [place] [address] * (ABNORMAL) HEMAGRAM AND DIFFERENTIAL (11/13/2003 12:18 EST) WBC 8.41 4.0 - 12.4 K/cmm [facility] RBC 5.16(H) 3.86 - 5.04 M/cmm [facility] Hemoglobin 14.2 11.6 - 15.2 gm/dl [facility] HCT 42.3 34.9 - 44.4 % [facility] MCV 82 81 - 98 fl [facility] MCH 27.5 26.7 - 33.3 pg [facility] MCHC 33.6 32.1 - 35.9 gm/dl [facility] PLT 178 141 - 320 K/cmm [facility] RDW-CV 13.0 11.7 - 14.6 % [facility] % Neutrophils 82.4(H) 45.5 - 79.7 % [facility] % Lymphocytes 9.8(L) 15.0 - 46.8 % [facility] % Monocytes 7.7 1.8 - 12.0 % [facility] % Eosinophils 0.1(L) 0.6 - 6.9 % [facility] % Basophils 0.0(L) 0.2 - 1.4 % [facility] ABS Neutrophils 6.93 2.20 - 8.85 K/cmm [facility] ABS Lymphs 0.82(L) 1.09 - 3.30 K/cmm [facility] ABS Monocytes 0.65 0.1 - 0.8 K/cmm [facility] ABS Eosinophils 0.01(L) 0.03 - 0.61 K/cmm [facility] ABS Basophils 0.00(L) 0.01 - 0.11 K/cmm [facility] Type of Diff: Automated [facility] 11/13/2003 12:1 8 EST 11/13/2003 16:48 EST Leida Cerda PA-C PACKAGES & DNA PROBE ORDERABLES [facility] [address] [place] [address] documented in this encounter Visit Diagnoses Not on filedocumented in this encounter Care Teams Peanut Separator Relationship Specialty Start Date End Date Shannan Vieyra MD PCP - General 04/08/09 03/15/19 documented as of this encounter
--- OUTSIDE RECORDS SUMMARY | 2024-05-24 15:31 | XMS_ITS | Encounter Summary ---
Author Organization [facility] Address [address] [place] [address] Care Team Providers Care Employee Communications Manager Name Role Phone Shannan Vieyra MD Primary Care Provider Unavail able Encounter Details Date Type Department Care Team (Late st Contact Info) Description 04/20/2004 Before PRISM Converted Visit (Maple) [facility] - Maple conversion [address] [place] [address] Arvind Avitia MD Social History Tobacco Use Types Packs/Day Years Used Date Smoking Tobacco: Never Assessed Sex and Gender Information Value Date Recorded Sex Assigned at Not on file Gender Identity Not on file Sexual Orientation Not on file documented as of this encounter Plan of Treatment Not on file documented as of this encounter Visit Diagnoses Not on filedocumented in this encounter Care Teams Employee Communications Manager Relationship Specialty Start Date End Date Shannan Vieyra MD PCP - General 04/08/09 03/15/19 documented as of this encounter
--- OUTSIDE RECORDS SUMMARY | 2024-05-24 15:31 | XMS_ITS | Encounter Summary ---
Author Organization [facility] Address [address] [place] [address] Care Team Providers Care Director Of Manufacturing Operations Name Role Phone Unavailable Primary Care Provider Unavailabl e Encounter Details Date Type Department Care Team (Late st Contact Info) Description 06/29/2004 9:37 EDT Hospital Encounter [facility] - Other [address] [place] [address] Leida Cerda PA-C [address] [place] [address] [address] [place] [address] Social History Tobacco Use Types Packs/Day Years Used Date Smoking Tobacco: Never Smokeless Tobacco: Never Alcohol Use Standard Drinks/Week Comments No 0 (1 standard drink = 0.6 oz pur e alcohol) [facility] Utilities Answer Date Recorded In the past 12 months has [employer] electric, gas, oil, or water company threatened [...] place to sleep or slept in a half-way (including now)? No 10/28/2023 Interpersonal Safety Answer [...]
--- OUTSIDE RECORDS SUMMARY | 2024-05-24 15:31 | XMS_ITS | Encounter Summary ---
Author Organization [facility] Address [address] [place] [address] Care Team Providers Care Veneer Stock Grader Name Role Phone Shannan Vieyra MD Primary Care Provider Unavail able Encounter Details Date Type Department Care Team (Late st Contact Info) Description 09/16/2003 Results Only [facility] - Maple conversion [address] [place] [address] Germain Mason MD [address] [place] [address] [address], [place] [id number] Social History Tobacco Use Types Packs/Day Years Used Date Smoking Tobacco: Never Assessed Sex and Gender Information Value Date Recorded Sex Assigned at Not on file Gender Identity Not on file Sexual Orientation Not on file documented as of this encounter Plan of Treatment Not on file documented as of this encounter Procedures Procedure Name Priority Date/Time Associated Diagnosis Comments T3, TOTAL Routine 09/16/2003 15:59 EST TSH Routine 09/16/2003 15:59 EST T4 FREE Routine 09/16/2003 15:59 EST documented in this encounter Results * (ABNORMAL) TSH (09/16/2003 15:59 EST) TSH <0.02(L) 0.35 - 5.50 uIU/ml [facility] 09/16/2003 15:5 9 EST 09/16/2003 16:01 EST Germain Mason MD CHEMISTRY & BLOOD GA S ORDERABLES Performing Organization Address [facility] Co de Phone Number [facility] [address] [place] [address] * (ABNORMAL) T3, TOTAL (09/16/2003 15:59 EST) T3, Total 551(H) 60 - 181 ng/dl [facility] 09/16/2003 15:5 9 EST 09/16/2003 16:01 EST Germain Mason MD CHEMISTRY & BLOOD GA S ORDERABLES Performing Organization Address [facility] Co de Phone Number [facility] [address] [place] [address] * (ABNORMAL) T4 FREE (09/16/2003 15:59 EST) Free T4 3.9(H) 0.8 - 1.8 ng/dl [facility] 09/16/2003 15:5 9 EST 09/16/2003 16:01 EST Germain Mason MD CHEMISTRY & BLOOD GA S ORDERABLES Performing Organization Address [facility] de Phone Number [facility] [address] [place] [address] documented in this encounter Visit Diagnoses Not on filedocumented in this encounter Care Teams Veneer Stock Grader Relationship Specialty Start Date End Date Shannan Vieyra MD PCP - General 04/08/09 03/15/19 documented as of this encounter
--- OUTSIDE RECORDS SUMMARY | 2024-05-24 15:31 | XMS_ITS | Encounter Summary ---
Author Organization [facility] Address [address] [place] [address] Care Team Providers Care Meter Shop Supervisor Name Role Phone Shannan Vieyra MD Primary Care Provider Unavail able Encounter Details Date Type Department Care Team (Late st Contact Info) Description 06/29/2004 Results Only [facility] Family Medicine - [place] [id number] [place] [address] Leida Cerda PA-C [address] [facility] [address] [place], [place] [address] Social History Tobacco Use Types Packs/Day Years Used Date Smoking Tobacco: Never Assessed Sex and Gender Information Value Date Recorded Sex Assigned at Not on file Gender Identity Not on file Sexual Orientation Not on file documented as of this encounter Plan of Treatment Not on file documented as of this encounter Procedures Procedure Name Priority Date/Time Associated Diagnosis Comments THYROTROPIN RECEPTOR ANTIBODY Routine 06/29/2004 16:08 EDT COMPLETE BLOOD COUNT AND DIFFERENTIAL Routine 06/29/2004 16:08 EDT T3, TOTAL Routine 06/29/2004 16:08 EDT ALT Routine 06/29/2004 16:08 EDT AST Routine 06/29/2004 16:08 EDT TSH Routine 06/29/2004 16:08 EDT T4 FREE Routine 06/29/2004 16:08 EDT documented in this encounter Results * (ABNORMAL) TSH (06/29/2004 16:08 EDT) Pathologist [facility] TSH <0.02(L) 0.35 - 5.50 uIU/ml [facility] 06/29/2004 16:0 8 EDT 06/29/2004 19:10 EDT Leida Cerda PA-C CHEMISTRY & BLOOD GAS ORDERABLES [facility] [address] [place] [address] * (ABNORMAL) THYROTROPIN RECEPTOR ANTIBODY (06/29/2004 16:08 EDT) Pathologist [facility] Thyrotropin Receptor Ab 16Unit: % Index(Note) -- EXPECTED VALUES -- ? (Ref Range) <10 (Negative) ? 10-14 (Indeterminate) ? > or = 15 (Positive) ? TEST PERFORMED OR REFERRED BY [facility] ? [address] ? [place] [address] ? Bowling Ball Marker: ? Pawan Saunders M.D. ?(H) [facility] 06/29/2004 16:0 8 EDT 06/29/2004 19:10 EDT Leida Cerda PA-C CHEMISTRY & BLOOD GAS ORDERABLES [facility] [address] [place] [address] * (ABNORMAL) T3, TOTAL (06/29/2004 16:08 EDT) Pathologist [facility] T3, Total 254(H) 60 - 181 ng/dl [facility] 06/29/2004 16:0 8 EDT 06/29/2004 19:10 EDT Leida Cerda PA-C CHEMISTRY & BLOOD GAS ORDERABLES Performing Organization Address [facility] de Phone Number [facility] [address] [place] [address] * (ABNORMAL) T4 FREE (06/29/2004 16:08 EDT) Free T4 2.1(H) 0.8 - 1.8 ng/dl [facility] 06/29/2004 16:0 8 EDT 06/29/2004 19:10 EDT Leida Cerda PA-C CHEMISTRY & BLOOD GAS ORDERABLES Performing Organization Address [facility] de Phone Number [facility] [address] [place] [address] * (ABNORMAL) HEMAGRAM AND DIFFERENTIAL (06/29/2004 16:08 EDT) [facility] WBC 4.80 4.0 - 12.4 K/cmm [facility] RBC 5.00 3.86 - 5.04 M/cmm [facility] Hemoglobin 13.8 11.6 - 15.2 gm/dl [facility] HCT 40.6 34.9 - 44.4 % [facility] MCV 81 81 - 98 fl [facility] MCH 27.5 26.7 - 33.3 pg [facility] MCHC 33.9 32.1 - 35.9 gm/dl [facility] PLT 181 141 - 320 K/cmm [facility] RDW-CV 13.6 11.7 - 14.6 % [facility] % Neutrophils 41.8(L) 45.5 - 79.7 % [facility] % Lymphocytes 48.3(H) 15.0 - 46.8 % [facility] % Monocytes 5.9 1.8 - 12.0 % [facility] % Eosinophils 3.7 0.6 - 6.9 % [facility] % Basophils 0.3 0.2 - 1.4 % [facility] ABS Neutrophils 2.00(L) 2.20 - 8.85 K/cmm [facility] ABS Lymphs 2.32 1.09 - 3.30 K/cmm [facility] ABS Monocytes 0.28 0.1 - 0.8 K/cmm [facility] ABS Eosinophils 0.18 0.03 - 0.61 K/cmm [facility] ABS Basophils 0.01 0.01 - 0.11 K/cmm [facility] Type of Diff: Automated [facility] 06/29/2004 16:0 8 EDT 06/29/2004 19:10 EDT Leida Cerda PA-C PACKAGES & DNA PROBE ORDERABLES Performing Organization Address City/[facility] Co de Phone Number [facility] [address] [place] [address] * AST (06/29/2004 16:08 EDT) AST 21 15 - 46 U/L [facility] 06/29/2004 16:0 8 EDT 06/29/2004 19:10 EDT Leida Cerda PA-C CHEMISTRY & BLOOD GAS ORDERABLES Performing Organization Address City/[facility]/ZIP Co de Phone Number [facility] [address] [place] [address] * ALT (06/29/2004 16:08 EDT) ALT 41 9 - 52 U/L [facility] 06/29/2004 16:0 8 EDT 06/29/2004 19:10 EDT Leida Cerda PA-C CHEMISTRY & BLOOD GAS ORDERABLES [facility] [address] [place] [address] documented in this encounter Visit Diagnoses Not on filedocumented in this encounter Care Teams Meter Shop Supervisor Relationship Specialty Start Date End Date Shannan Vieyra MD PCP - General 04/08/09 03/15/19 documented as of this encounter
--- OUTSIDE RECORDS SUMMARY | 2024-05-24 15:31 | XMS_ITS | Encounter Summary ---
Author Organization [facility] Address [address] [place] [address] Care Team Providers Care Patrol Conductor Name Role Phone Shannan Vieyra MD Primary Care Provider Unavail able Encounter Details Date Type Department Care Team (Late st Contact Info) Description 03/24/[address] [facility] Family Medicine - [place] [id number] [place], [place] [address] Leida Cerda PA-C 402 [facility] [address] [place], [place] [address] Social History Tobacco Use Types Packs/Day Years [...] Comments COMPLETE BLOOD COUNT AND DIFFERENTIAL Routine 03/24/2004 13:54 EDT T3, TOTAL Routine 03/24/2004 13:54 EDT TSH Routine 03/24/2004 13:54 EDT T4 FREE Routine 03/24/2004 13:54 EDT HEPATIC FUNCTION PANEL (ALB,ALK PHOS,ALT,AST,DBIL,TOT YOGI,TOT PROT) Routine 03/24/2004 13:54 EDT documented in this encounter Results * (ABNORMAL) TSH (03/24/2004 13:54 EDT) [facility] TSH <0.02(L) 0.35 - 5.50 uIU/ml [facility] 03/24/2004 13:5 4 EDT 03/24/2004 18:51 EDT Leida Cerda PA-C CHEMISTRY & BLOOD GAS ORDERABLES Performing Organization Address [facility] de Phone Number [facility] [address] [place] [address] * (ABNORMAL) T3, TOTAL (03/24/2004 13:54 EDT) [facility] T3, Total 294(H) 60 - 181 ng/dl [facility] 03/24/2004 13:5 4 EDT 03/24/2004 18:51 EDT Leida Cerda PA-C CHEMISTRY & BLOOD GAS ORDERABLES Performing Organization Address [facility] de Phone Number [facility] [address] [place] [address] * LIVER FUNCTION TESTS (03/24/2004 13:54 EDT) [facility] Albumin 3.5 3.4 - 4.9 g/dl [facility] Total Protein 7.0 6.5 - 8.0 g/dl [facility] Total Alkaline Phosphatase 91 38 - 126 U/L [facility] ALT 16 9 - 52 U/L [facility] AST 15 15 - 46 U/L [facility] Unconjugated Bilirubin 0.3 0.1 - 1.1 mg/dl [facility] Conjugated Bilirubin 0.0 0.0 - 0.3 mg/dl [facility] Bilirubin, Total <0.5 0.2 - 1.3 mg/dl [facility] 03/24/2004 13:5 4 EDT 03/24/2004 18:51 EDT Leida Cerda PA-C CHEMISTRY & BLOOD GAS ORDERABLES Performing Organization Address City/[facility]/ZIP Co de Phone Number [facility] [address] [place] [address] * (ABNORMAL) T4 FREE (03/24/2004 13:54 EDT) Free T4 2.0(H) 0.8 - 1.8 ng/dl [facility] 03/24/2004 13:5 4 EDT 03/24/2004 18:51 EDT Leida ARAUJO-Robby CHEMISTRY & BLOOD GAS ORDERABLES Performing Organization Address [facility] Co de Phone Number [facility] [address] [place] [address] * HEMAGRAM AND DIFFERENTIAL (03/24/2004 13:54 EDT) [facility] WBC 8.60 4.0 - 12.4 K/cmm [facility] RBC 5.00 3.86 - 5.04 M/cmm [facility] Hemoglobin 13.8 11.6 - 15.2 gm/dl [facility] HCT 40.5 34.9 - 44.4 % [facility] MCV 81 81 - 98 fl [facility] MCH 27.5 26.7 - 33.3 pg [facility] MCHC 34.0 32.1 - 35.9 gm/dl [facility] PLT 262 141 - 320 K/cmm [facility] RDW-CV 13.5 11.7 - 14.6 % [facility] % Neutrophils 65.6 45.5 - 79.7 % [facility] % Lymphocytes 26.6 15.0 - 46.8 % [facility] % Monocytes 5.9 1.8 - 12.0 % [facility] % Eosinophils 1.7 0.6 - 6.9 % [facility] % Basophils 0.2 0.2 - 1.4 % [facility] ABS Neutrophils 5.65 2.20 - 8.85 K/cmm [facility] ABS Lymphs 2.29 1.09 - 3.30 K/cmm [facility] ABS Monocytes 0.50 0.1 - 0.8 K/cmm [facility] ABS Eosinophils 0.15 0.03 - 0.61 K/cmm [facility] ABS Basophils 0.02 0.01 - 0.11 K/cmm [facility] Type of Diff: Automated [facility] 03/24/2004 13:5 4 EDT 03/24/2004 18:51 EDT Leida Cerda PA-C PACKAGES & DNA PROBE ORDERABLES [facility] [address] [place] [address] documented in this encounter Visit Diagnoses Not on filedocumented in this encounter Care Teams Patrol Conductor Relationship Specialty Start Date End Date Shanann Vieyra MD PCP - General 04/08/09 03/15/19 documented as of this encounter
--- OUTSIDE RECORDS SUMMARY | 2024-05-24 15:31 | XMS_ITS | Encounter Summary ---
Author Organization [facility] Address [address] [place] [address] Care Team Providers Care Prepared Foods Service Team Member Name Role Phone Shannan Vieyra MD Primary Care Provider Unavail able Encounter Details Date Type Department Care Team (Late st Contact Info) Description 06/10/2004 Office Visit [facility] - Maple conversion [address] [place] [address] Miguel Negron MD [address] [place] [address], [address] [place] [id number] Social History Tobacco Use Types Packs/Day Years Used Date Smoking Tobacco: Never Assessed Sex and Gender Information Value Date Recorded Sex Assigned at Not on file Gender Identity Not on file Sexual Orientation Not on file documented as of this encounter Progress Notes * Miguel Negron MD - 12/12/2009 1138 EST Emergency Department ??? Physician Summary Registration Date/Time 06/10/2004 17:37 Time Seen (17:40 ). Arrived- By private vehicle. Historian- patient. HISTORY OF PRESENT ILLNESS Chief Complaint: HEADACHE. This started several days It was gradual in onset. Onset during can't recall Is still present and now worse. It is described as pain. Described as a global headache, located in the occipital region and has had neck pain. At its maximum, severity described as severe. Modifying factors: worsened by bright light; relieved by nothing. She has had photophobia, nausea and vomiting. Patient has not had similar symptomspreviously. The patient was seen recently in the emergency department. (Dx with viral meningitis (LP 528 wbc, 90 protein, inc lymps, culture neg growth) and UTI (proteus)). REVIEW OF SYSTEMS The patient has had fever, muscle aches and ear pain. She has had pain on urination (pressure - pt says also recently dx with UTI, culture reviewed). No sinus pressure, sore throat, carbon monoxide exposure, chest pain or difficulty breathing. No cough, abdominal pain, diarrhea, skin rash or enlarged lymph nodes. No back pain. PAST HISTORY See nursesnotes. PSVT (chronic tachycardia) Graves Dz Medications: See nurses notes. Allergies: See nurses notes. SOCIAL HISTORY Nonsmoker. ADDITIONAL NOTES The nursing notes have been reviewed. PHYSICAL EXAM Appearance: Alert. No acute distress. Vital Signs: The vital signs have been reviewed- tachycardic; temperature normal. Eyes: Photophobia present. Pupils equal, round and reactive to light. Eyes normal inspection. ENT: Pharynx normal. Neck: Mild meningeal signs present, as evidenced by neck stiffness. Normal inspection. No lymphadenopathy. CVS: Tachycardia. Heart sounds normal. Respiratory: No respiratory distress. Breath sounds normal. Abdomen: Abdomen soft and nontender. Back: Normal inspection. Skin: Normal skin color. Skin warm and dry. No rash. Extremities: Extremitiesexhibit normal ROM. No pedal edema. Neuro: Oriented X 3. Alert. Mood/affect normal. Speech normal. No cerebellar findings. No motor deficit. No sensory deficit. Reflexes normal. LABS, X-RAYS, AND EKG CBC: CBC is normal except as noted. WBC 3.58 Segs 34 Lymphs 47 Monos 17 HCT 45.5 Microbiology: Urine culture ordered. (06/06 positive proteus - resistant to cipro, susp to ctx). Fluid Analysis: Protein (108). Glucose (38). RBCs- (2). WBCs- (256). PROGRESS AND PROCEDURES Lumbar Puncture: Performed by me. Risks, benefits and alternatives were discussed. Consent was obtained from patient. Sterile technique was used. The area was cleansed with Betadine. Local lidocaine anesthesia was used. Patient was positioned left side down. LP performed at the L4-5 interspace. A 22g needle was used. E.D. Course: Recent Dx viral meningitis, now returns with worsening MAYA, fever and chills, N/V. Willtx IVF/antiemetic/analgesic. LP, cultures, abx, admit Discussed case with on-call physician, Dr. William Reviewed test results and need for additional work-up. Physician will see patient in ED. Patient/family counseled. Additional history was sought from the family. Old medical records reviewed. Disposition: Admitted to [facility]. Condition: stable. CLINICAL IMPRESSION Fever. Headache. Meningitis. Urinary tract infection. Miguel Negron MD (Electronically signed Miguel Negron MD 06/10/2004 23:40) Physician's Clinical Report Emergency Department ??? Nursing Summary Registration Date/Time 06/10/2004 17:37 TRIAGE Initial Assessment Triage time 17:24 Jun 10 2004 --17:24 Tracy Rausch R.N. Acuity: LEVEL 3. BP: 124 / 88 HR: 140 RR: 24 Temp: 36.8 C (tympanic). O2 saturation: 98% room air Alert. (Tearful). --17:28 Tracy Rausch R.N. Medications Atenolol. Cipro. (Tapazol). Vicodin. --17:28 Tracy Rausch R.N. Allergies PENICILLIN (possibly). SULFA DRUGS- symptoms consisted of hives and shortness of breath. --17:28 Tracy Rausch R.N. History Chief Complaint: (increasing headache). This started today. The patient has had fever. (Seen in this ED over the weekend and diagnoses withviral meningitis, today headache suddenly worse. Vomiting for several days). PAST HX: Last normal menstrual period- Jun 09 (Chronic rapid heart rate). SOCIAL HX: Nonsmoker. Denies alcohol use. Arrived by private vehicle and accompanied by mother. Historian: patient.--17:28 Tracy Rausch R.N. Interventions To room. Via wheelchair. --17:34 Tata Adams NURSING PROGRESS NOTES Progress Patient gowned. Call light placed in reach. Side rails up x 1. Bed placed in lowest position. Brakes of bed on. --17:34 Garry AdamsMChen Blood samples drawn by techper protocol and sent to lab: purple, blue and tiger top; total amount drawn 10 mL. Blood drawn from peripheral IV site prior to IV fluid start. (blue sent to hold). --18:51 Tata Beckham Clean catch urine collected. Urine testnegative; dip trace amount for blood and negative for ketones. Urine sample sent to lab for culture. --18:53 Tata Beckham (Urine Results: SG: >1.030, pH 5.5 YOGI 2+, Pro 2+, Uro 4.0 Ned Trace ). --18:54 Tata Beckham MORPHINE 4mg and COMPAZINE 10mg diluted with IV fluid slow IVP over 10 minutes. IV patency established. IV site checked: no pain, redness, or swelling. IV flushed thoroughly pre- and post-medication administration. --18:57 Monae Arvizu R.N. Blood samples drawn with 23g butterfly by tech per protocol and sent to lab: pediatric blood culture; total amount drawn 3 mL. --19:05 Garry AyoubMChen (po fluids OK per Dr Negron.). --19:14 Monae Arvizu R.N. BP: 140 / 83 HR: 129 RR: 16 Temp: 38.5 tympanic --19:25 Irina Hernánedz R.N. ACETAMINOPHEN 975 mg PO. --19:52 Irina Hernández R.N. BENADRYL 50 mg diluted with IV fluid slow IVP over 2 minutes. IV patency established. IV site checked: no pain, redness, or swelling. IV flushed thoroughly pre- and post-medication administration. --22:18 Irina Hernández R.N. CEFTRIAXONE 1gm IVPB (pre-mix) via IV pump. IV patency established. IV site checked: no pain, redness, or swelling. IV flushed thoroughly pre-and post- medication administration. Allergic reaction warning given to patient and family. --22:18 Irina Hernández R.N. BP: 118 / 70 HR: 119 RR: 16 Temp: 37.5 tympanic O2 saturation: 99 % room air --22:19 Irina Hernández R.N. (pt ambulated to BR with assist, pt c/o 9/10 pain, pt medicated per admit orders). --00:40 Irina Hernández R.N. BP: 136/91 lying HR: 137 RR: 14 Temp: 39.0 tympanic --00:46 Miguel Long E.M.TAnay MORPHINE 4mg diluted with 10 mL NS slow IVP over 5 minutes. IV patency established. IV site checked: no pain, redness, or swelling. IV flushed thoroughly pre- and post-medication administration. --00:55 Irina Hernández R.N. late entry - 2217 (pt recieved 2 gm ceftriaxone not one). --01:19 Irina Hernández R.N. IV / I&O Flowsheet IV site #1: location right antecubital space. Started: 20g angiocath; aseptic technique used; good blood return noted; one attempt. Saline lock in place. IV patent. No redness or swelling at site. IVline accessed- flushed with saline. IV fluid started- #1 bag NS 1000 mL. --18:51 Miguel Long E.M.TAnay IV fluid bag #1 discontinued (1000 mL absorbed). IV fluid started- #2 bag [id number] mL. Rate - 250 mL / hr. --01:16 Irina Hernández R.N. OUTPUT: x1 pt states large amt urine --01:16 Irina Hernández R.N. INTAKE: 1000 mL IV --01:16 Irina Hernández R.N. DISPOSITION / DISCHARGE Admitted to medicine. Transported via stretcher by [employer] with IV. Report was given (B4 staff). --01:20 Irina Hernández R.N. Admitted ([id number]). Transported via stretcher. --01:36 Ector Ferguson R.N., E.M.TAnay CastañedaM.TEctor Lozano.M.TEctor Owusu R.N. Locked/Released at 06/11/2004 4:29 by Nara Malin R.N. documented in this encounter Plan of Treatment Not on file documented as of this encounter Visit Diagnoses Not on filedocumented in this encounter Care Teams Prepared Foods Service Team Member Relationship Specialty Start Date End Date Shannan Vieyra MD PCP - General 04/08/09 03/15/19 documented as of this encounter
--- OUTSIDE RECORDS SUMMARY | 2024-05-24 15:31 | XMS_ITS | Encounter Summary ---
Author Organization [facility] Address [address] [place] [address] Care Team Providers Care House Servant Name Role Phone Shannan Vieyra MD Primary Care Provider Unavail Leida Jackson PA-C Primary Care Provi melvin Comfort Zelaya NP Primary Care Provider [phone] Encounter Details Date Type Department Care Team (Late st Contact Info) Description 06/10/2004 Before PRISM Converted Visit (Maple) [facility] - Maple conversion [address] [place] [address] Paradise Padilla MD [address] [place] [address] Social History Tobacco Use Types Packs/Day Years Used Date Smoking Tobacco: Never Assessed Sex and Gender Information Value Date Recorded Sex Assigned at Not on file Gender Identity Not on file Sexual Orientation Not on file documented as of this encounter Plan of Treatment Not on file documented as of this encounter Visit Diagnoses Not on filedocumented in this encounter Care Teams House Servant Relationship Specialty Start Date End Date Shannan Vieyra MD PCP - General 04/08/09 03/15/19 Leida Cerda PA-C PCP - General 03/16/19 03/07/22 Comfort Zelaya NP [address] [place] [address] PCP - General Family Medicine - Primary Care 03/08/22 documented as of this encounter
--- OUTSIDE RECORDS SUMMARY | 2024-05-24 15:31 | XMS_ITS | Encounter Summary ---
Author Organization [facility] Address [address] [place] [address] Care Team Providers Care Senior Integration Architect Name Role Phone Shannan Vieyra MD Primary Care Provider Unavail able Encounter Details Date Type Department Care Team (Late st Contact Info) Description 06/10/2004 Before PRISM Converted Visit (Maple) [facility] - Maple conversion [address] [place] [address] Paradise Padilla MD [address] [place] [phone] Social History Tobacco Use Types Packs/Day Years Used Date Smoking Tobacco: Never Assessed Sex and Gender Information Value Date Recorded Sex Assigned at Not on file Gender Identity Not on file Sexual Orientation Not on file documented as of this encounter Plan of Treatment Not on file documented as of this encounter Visit Diagnoses Not on filedocumented in this encounter Care Teams Senior Integration Architect Relationship Specialty Start Date End Date Shannan Vieyra MD PCP - General 04/08/09 03/15/19 documented as of this encounter
--- OUTSIDE RECORDS SUMMARY | 2024-05-24 15:31 | XMS_ITS | Encounter Summary ---
Author Organization [facility] Address [address] [place] [address] Care Team Providers Care Spectral Scientist Name Role Phone Shannan Vieyra MD Primary Care Provider Unavail able Encounter Details Date Type Department Care Team (Late st Contact Info) Description 06/06/2004 Results Only [facility] - Maple conversion [address] [place] [address] Emergency, MD Keli Social History Tobacco Use Types Packs/Day Years Used Date Smoking Tobacco: Never Assessed Sex and Gender Information Value Date Recorded Sex Assigned at Not on file Gender Identity Not on file Sexual Orientation Not on file documented as of this encounter Plan of Treatment Not on file documented as of this encounter Procedures Procedure Name Priority Date/Time Associated Diagnosis Comments URINE CHEMICAL (DIP) & SEDIMENT (MICRO) WITHOUT REFLEX TO CULTURE Routine 06/06/2004 22:45 EDT BACTERIAL CULTURE, URINE Routine 06/06/2004 22:45 EDT BACTERIAL CULTURE/SMEAR, FLUID Routine 06/06/2004 22:22 EDT CELL COUNT,CSF Routine 06/06/2004 22:10 EDT FLUID DIFFERENTIAL Routine 06/06/2004 22 :10 EDT TOTAL PROTEIN, CSF Routine 06/06/2004 22 :10 EDT GLUCOSE CSF Routine 06/06/2004 22:10 EDT CREATININE Routine 06/06/2004 20:27 EDT SED RATE Routine 06/06/2004 20:27 EDT COMPLETE BLOOD COUNT AND DIFFERENTIAL Routine 06/06/2004 20:27 EDT C REACTIVE PROTEIN Routine 06/06/2004 20 :27 EDT BUN Routine 06/06/2004 20:27 EDT LIPASE Routine 06/06/2004 20:27 EDT GLUCOSE, SERUM Routine 06/06/2004 20:27 EDT HEPATIC FUNCTION PANEL (ALB,ALK PHOS,ALT,AST,DBIL,TOT YOGI,TOT PROT) Routine 06/06/2004 20:27 EDT ELECTROLYTES Routine 06/06/2004 20:27 EDT documented in this encounter Results * BACTERIAL CULTURE, URINE (06/06/2004 22:45 EDT) Specimen Description Urine [facility] Result Greater than 100,000 CFU/ml PROTEUS MIRABILIS [facility] Report Status Final [id number] [facility] 06/06/2004 22:4 5 EDT 06/06/2004 22:53 EDT Narrative Organism Antibiotic Method Susceptibility Greater than 100,000 cfu/mlproteus mirabilis Ampicillin SUSCEPTIBILITY (SAÚL) >=32 Resistant Resistant Greater than 100,000 cfu/mlproteus mirabilis Cefazolin SUSCEPTIBILITY (SAÚL) <=8 Susceptible Susceptible Greater than 100,000 cfu/mlproteus mirabilis Gentamicin SUSCEPTIBILITY (SAÚL) <=0.5 Susceptible Susceptible Greater than 100,000 cfu/mlproteus mirabilis Trimethoprim-Sulfametho xazole SUSCEPTIBILITY (SAÚL) >=16/304 Resistant Resistant Greater than 100,000 cfu/mlproteus mirabilis Nitrofurantoin SUSCEPTIBILITY (SAÚL) >=128 Resistant Resistant Greater than 100,000 cfu/mlproteus mirabilis Tobramycin SUSCEPTIBILITY (SAÚL) <=0.5 Susceptible Susceptible Greater than 100,000 cfu/mlproteus mirabilis Imipenem SUSCEPTIBILITY (SAÚL) <=4 Susceptible Susceptible Greater than 100,000 cfu/mlproteus mirabilis Ceftriaxone SUSCEPTIBILITY (SAÚL) <=8 Susceptible Susceptible Greater than 100,000 cfu/mlproteus mirabilis Ciprofloxacin SUSCEPTIBILITY (SAÚL) >=4 Resistant Resistant Greater than 100,000 cfu/mlproteus mirabilis Piperacillin Tazobactam SUSCEPTIBILITY (SAÚL) <=8 Susceptible Susceptible Default Emergency MICROBIOLOGY - GENE RAL ORDERABLES [facility] [address] [place] [address] * (ABNORMAL) UA WITH MICROSCOPIC (06/06/2004 22:45 EDT) Color, UA Yellow [facility] Clarity, UA Clear [facility] Glucose, UA Norm NORM [facility] Bilirubin, UA Neg NEG [facility] Ketones, UA Large(A) NEG [facility] Specific [place], Urine 1.020 1.005 - 1.02 [facility] Blood, UA Trace(A) NEG [facility] pH, UA 6.5 5.0 - 9.0 [facility] Protein, UA Trace(A) NEG [facility] Urobilinogen, UA 1.0(A) NORM mg/dL [facility] Nitrite, UA Neg NEG [facility] Leuk Esterase Mod(A) NEG [facility] WBC, UA >50 0 - 5 /HPF [facility] RBC, UA 1 to 5 0 - 5 /HPF [facility] Squam Epithel, UA None seen NS /HPF [facility] Renal Epithel, UA None seen NS /HPF [facility] Bacteria, UA None seen NS /HPF [facility] Crystals, UA None seen /HPF [facility] Hyaline Casts, UA None seen /LPF [facility] UA Comment Microscopic results are unreliable on urines unrefrig >2hrs or refrig >8hrs. [facility] Mucus, UA Small [facility] 06/06/2004 22:4 5 EDT 06/06/2004 22:53 EDT Default Emergency URINALYSIS ORDERABL ES Performing Organization Address [facility] de Phone Number [facility] [address] [place] [address] * BACTERIAL CULTURE/SMEAR, FLUID (06/06/2004 22:22 EDT) Specimen Description Spinal Fluid [facility] Gram Smear Result Polys present Mononuclear cells present No bacteria seen [facility] Result No growth [facility] Report Status Final [id number] [facility] 06/06/2004 22:2 2 EDT 06/06/2004 22:32 EDT Default Emergency MICROBIOLOGY - GENE RAL ORDERABLES Performing Organization Address [facility] de Phone Number [facility] [address] [place] [address] * (ABNORMAL) FLUID DIFFERENTIAL (06/06/2004 22:10 EDT) Lymphocyte, CSF 92(H) 40 - 80 % [facility] O[place]/Macro, CSF 4(L) 15 - 45 % [facility] Eosinophil, CSF 3 % [facility] Basophil, CSF 1 % [facility] 06/06/2004 22:1 0 EDT 06/06/2004 22:11 EDT Default Emergency GEN LAB UNIT COLLEC T ORDERABLES Performing Organization Address [facility] de Phone Number [facility] [address] [place] [address] * (ABNORMAL) TOTAL PROTEIN, CSF (06/06/2004 22:10 EDT) Total Protein, CSF 91(H) 15 - 60 mg/dl [facility] 06/06/2004 22:1 0 EDT 06/06/2004 22:11 EDT Default Emergency GEN LAB UNIT COLLEC T ORDERABLES Performing [facility] Co de Phone Number [facility] [address] [place] [address] * GLUCOSE CSF (06/06/2004 22:10 EDT) Glucose, CSF 40 mg/dl [facility] Comment: Ref Range=60-80% of plasma glucose result 06/06/2004 22:1 0 EDT 06/06/2004 22:11 EDT Default Emergency MD GEN LAB UNIT COLLE T ORDERABLES Performing Organization Address [facility] Co de Phone Number [facility] [address] [place] [address] * (ABNORMAL) CELL COUNT,CSF (06/06/2004 22:10 EDT) Pathologist [facility] RBC, CSF 3 /cmm [facility] Nucleated Cells 528(H) 0 - 5 /cmm [facility] Total Vol. 4.0 ml [facility] Tube Cntd. 4 [facility] Tube Vol. 1.0 ml [facility] CSF Comment Clear and Colorless [facility] 06/06/2004 22:1 0 EDT 06/06/2004 22:11 EDT Default Emergency MD GEN LAB UNIT [facility] ORDERABLES Performing Organization Address [facility] de Phone Number [facility] [address] [place] [address] * SED. RATE:WESTERGREN (06/06/2004 20:27 EDT) Pathologist [facility] Sed. Rate Westergren 5 0 - 20 mm/hr [facility] 06/06/2004 20:2 7 EDT 06/06/2004 20:38 EDT Default Emergency MD HEMATOLOGY & PF4 OR DERABLES Performing Organization Address [facility] Co de Phone Number [facility] [address] [place] [address] * GLUCOSE, SERUM (06/06/2004 20:27 EDT) Glucose, Serum 90 70 - 110 mg/dl [facility] 06/06/2004 20:2 7 EDT 06/06/2004 20:38 EDT Default Emergency MD CHEMISTRY & BLOOD G ORDERABLES Performing Organization Address [facility] de Phone Number [facility] [address] [place] [address] * (ABNORMAL) ELECTROLYTES (06/06/2004 20:27 EDT) Pathologist [facility] Sodium 137 136 - 145 mEq/L [facility] Potassium 4.1 3.5 - 5.0 mEq/L [facility] Chloride 104 96 - 110 mEq/L [facility] CO2 21(L) 24 - 32 mEq/L [facility] 06/06/2004 20:2 7 EDT 06/06/2004 20:38 EDT Default Emergency MD CHEMISTRY & BLOOD G ORDERABLES Performing Organization Address [facility] de Phone Number [facility] [address] [place] [address] * (ABNORMAL) LIVER FUNCTION TESTS (06/06/2004 20:27 EDT) Pathologist [facility] Albumin 4.6 3.4 - 4.9 g/dl [facility] Total Protein 8.2(H) 6.5 - 8.0 g/dl [facility] Total Alkaline Phosphatase 94 38 - 126 U/L [facility] ALT 21 9 - 52 U/L [facility] AST 18 15 - 46 U/L [facility] Unconjugated Bilirubin 0.5 0.1 - 1.1 mg/dl [facility] Conjugated Bilirubin 0.0 0.0 - 0.3 mg/dl [facility] Bilirubin, Total <0.5 0.2 - 1.3 mg/dl [facility] 06/06/2004 20:2 7 EDT 06/06/2004 20:38 EDT Default Emergency MD CHEMISTRY & BLOOD G ORDERABLES Performing Organization Address [facility] de Phone Number [facility] [address] [place] [address] * LIPASE (06/06/2004 20:27 EDT) Pathologist [facility] Lipase 89 0 - 250 U/L [facility] 06/06/2004 20:2 7 EDT 06/06/2004 20:38 EDT Default Emergency MD CHEMISTRY & BLOOD G ORDERABLES Performing Organization Address [facility] de Phone Number [facility] [address] [place] [address] * C-REACTIVE PROTEIN (06/06/2004 20:27 EDT) Pathologist [facility] C-Reactive Protein <0.7 <1.0 mg/dl [facility] 06/06/2004 20:2 7 EDT 06/06/2004 20:38 EDT Default Emergency MD CHEMISTRY & BLOOD G ORDERABLES Performing Organization Address [facility] de Phone Number [facility] [address] [place] [address] * CREATININE (06/06/2004 20:27 EDT) Pathologist [facility] Creatinine 0.8 0.7 - 1.5 mg/dl [facility] 06/06/2004 20:2 7 EDT 06/06/2004 20:38 EDT Default Emergency HISTORICAL LAB FOR SQ LOAD Performing Organization Address [facility] de Phone Number [facility] [address] [place] [address] * (ABNORMAL) HEMAGRAM AND DIFFERENTIAL (06/06/2004 20:27 EDT) Pathologist [facility] WBC 5.35 4.0 - 12.4 K/cmm [facility] RBC 5.57(H) 3.86 - 5.04 M/cmm [facility] Hemoglobin 15.2 11.6 - 15.2 gm/dl [facility] HCT 45.2(H) 34.9 - 44.4 % [facility] MCV 81 81 - 98 fl [facility] MCH 27.2 26.7 - 33.3 pg [facility] MCHC 33.6 32.1 - 35.9 gm/dl [facility] PLT 277 141 - 320 K/cmm [facility] RDW-CV 15.1(H) 11.7 - 14.6 % [facility] % Neutrophils 65.1 45.5 - 79.7 % [facility] % Lymphocytes 26.8 15.0 - 46.8 % [facility] % Monocytes 6.2 1.8 - 12.0 % [facility] % Eosinophils 1.5 0.6 - 6.9 % [facility] % Basophils 0.4 0.2 - 1.4 % [facility] ABS Neutrophils 3.48 2.20 - 8.85 K/cmm [facility] ABS Lymphs 1.43 1.09 - 3.30 K/cmm [facility] ABS Monocytes 0.33 0.1 - 0.8 K/cmm [facility] ABS Eosinophils 0.08 0.03 - 0.61 K/cmm [facility] ABS Basophils 0.02 0.01 - 0.11 K/cmm [facility] Type of Diff: Automated [facility] 06/06/2004 20:2 7 EDT 06/06/2004 20:38 EDT Default Emergency PACKAGES & DNA PROB E ORDERABLES Performing Organization Address [facility] Co de Phone Number [facility] [address] [place] [address] * BUN (06/06/2004 20:27 EDT) BUN 10 10 - 26 mg/dl [facility] 06/06/2004 20:2 7 EDT 06/06/2004 20:38 EDT Default Emergency CHEMISTRY & BLOOD G ORDERABLES [facility] [address] [place] [address] documented in this encounter Visit Diagnoses Not on filedocumented in this encounter Care Teams Spectral Scientist Relationship Specialty Start Date End Date Shannan Vieyra MD PCP - General 04/08/09 03/15/19 documented as of this encounter
--- OUTSIDE RECORDS SUMMARY | 2024-05-24 15:31 | XMS_ITS | Encounter Summary ---
Author Organization [facility] Address [address] [place] [address] Care Team Providers Care Infrastructure Administrator Name Role Phone Shannan Vieyra MD Primary Care Provider Unavail able Encounter Details Date Type Department Care Team (Late st Contact Info) Description 06/13/2004 Results Only [facility] - Maple conversion [address] [place] [address] Angelo William MD Social History Tobacco Use [...] Comments COMPLETE BLOOD COUNT AND DIFFERENTIAL Routine 06/13/2004 6:00 EDT COMPLETE BLOOD COUNT AND DIFFERENTIAL Routine 06/13/2004 6:00 EDT COMPLETE BLOOD COUNT AND DIFFERENTIAL Routine 06/13/2004 6:00 EDT COMPLETE BLOOD COUNT AND DIFFERENTIAL Routine 06/13/2004 6:00 EDT documented in this encounter Results * (ABNORMAL) HEMAGRAM AND DIFFERENTIAL (06/13/2004 6:00 EDT) % Neutrophils 38.1(L) 45.5 - 79.7 % [facility] % Lymphocytes 48.3(H) 15.0 - 46.8 % [facility] % Monocytes 7.1 1.8 - 12.0 % [facility] % Eosinophils 6.1 0.6 - 6.9 % [facility] % Basophils 0.4 0.2 - 1.4 % [facility] ABS Neutrophils 2.20 2.20 - 8.85 K/cmm [facility] ABS Lymphs 2.79 1.09 - 3.30 K/cmm [facility] ABS Monocytes 0.41 0.1 - 0.8 K/cmm [facility] ABS Eosinophils 0.35 0.03 - 0.61 K/cmm [facility] ABS Basophils 0.02 0.01 - 0.11 K/cmm [facility] Type of Diff: Automated [facility] 06/13/2004 6:00 EDT 06/13/2004 9:11 EDT Angelo William MD PACKAGES & DNA PROBE ORDERABLES Performing Organization Address [facility] Co de Phone Number [facility] [address] [place] [address] * (ABNORMAL) HEMAGRAM AND DIFFERENTIAL (06/13/2004 6:00 EDT) WBC 5.78 4.0 - 12.4 K/cmm [facility] RBC 4.75 3.86 - 5.04 M/cmm [facility] Hemoglobin 13.3 11.6 - 15.2 gm/dl [facility] HCT 39.4 34.9 - 44.4 % [facility] MCV 83 81 - 98 fl [facility] MCH 27.9 26.7 - 33.3 pg [facility] MCHC 33.7 32.1 - 35.9 gm/dl [facility] PLT 214 141 - 320 K/cmm [facility] RDW-CV 15.7(H) 11.7 - 14.6 % [facility] 06/13/2004 6:00 EDT 06/13/2004 9:11 EDT Angelo William MD PACKAGES & DNA PROBE ORDERABLES Performing Organization Address [facility] Co de Phone Number [facility] [address] [place] [address] * (ABNORMAL) HEMAGRAM AND DIFFERENTIAL (06/13/2004 6:00 EDT) % Neutrophils 38.1(L) 45.5 - 79.7 % [facility] % Lymphocytes 48.3(H) 15.0 - 46.8 % [facility] % Monocytes 7.1 1.8 - 12.0 % [facility] % Eosinophils 6.1 0.6 - 6.9 % [facility] % Basophils 0.4 0.2 - 1.4 % [facility] ABS Neutrophils 2.20 2.20 - 8.85 K/cmm [facility] ABS Lymphs 2.79 1.09 - 3.30 K/cmm [facility] ABS Monocytes 0.41 0.1 - 0.8 K/cmm [facility] ABS Eosinophils 0.35 0.03 - 0.61 K/cmm [facility] ABS Basophils 0.02 0.01 - 0.11 K/cmm [facility] Type of Diff: Automated [facility] 06/13/2004 6:00 EDT 06/13/2004 9:11 EDT Angelo William MD PACKAGES & DNA PROBE ORDERABLES Performing Organization Address [facility]/ZIP Co de Phone Number [facility] [address] [place] [address] * (ABNORMAL) HEMAGRAM AND DIFFERENTIAL (06/13/2004 6:00 EDT) WBC 5.78 4.0 - 12.4 K/cmm [facility] RBC 4.75 3.86 - 5.04 M/cmm [facility] Hemoglobin 13.3 11.6 - 15.2 gm/dl [facility] HCT 39.4 34.9 - 44.4 % [facility] MCV 83 81 - 98 fl [facility] MCH 27.9 26.7 - 33.3 pg [facility] MCHC 33.7 32.1 - 35.9 gm/dl [facility] PLT 214 141 - 320 K/cmm [facility] RDW-CV 15.7(H) 11.7 - 14.6 % [facility] 06/13/2004 6:00 EDT 06/13/2004 9:11 EDT Angelo William MD PACKAGES & DNA PROBE ORDERABLES Performing Organization Address City/State/[facility] Co de Phone Number [facility] [address] [place] [address] documented in this encounter Visit Diagnoses Not on filedocumented in this encounter Care Teams Infrastructure Administrator Relationship Specialty Start Date End Date Shannan Vieyra MD PCP - General 04/08/09 03/15/19 documented as of this encounter
--- OUTSIDE RECORDS SUMMARY | 2024-05-24 15:31 | XMS_ITS | Encounter Summary ---
Author Organization [facility] Address [address] [place] [address] Care Team Providers Care General Surgeon Name Role Phone Shannan Vieyra MD Primary Care Provider Unavail able Encounter Details Date Type Department Care Team (Late st Contact Info) Description 06/16/2004 Results Only [facility] - Maple conversion [address] [place] [address] Angelo William MD Social History Tobacco Use [...] Priority Date/Time Associated Diagnosis Comments CREATININE Routine 06/16/2004 5:45 EDT CREATININE Routine 06/16/2004 5:45 EDT BUN Routine 06/16/2004 5:45 EDT BUN Routine 06/16/2004 5:45 EDT ELECTROLYTES Routine 06/16/2004 5:45 EDT ELECTROLYTES Routine 06/16/2004 5:45 EDT documented in this encounter Results * ELECTROLYTES (06/16/2004 5:45 EDT) Sodium 140 136 - 145 mEq/L [facility] Potassium 4.7 3.5 - 5.0 mEq/L [facility] Chloride 106 96 - 110 mEq/L [facility] CO2 26 24 - 32 mEq/L [facility] 06/16/2004 5:45 EDT 06/16/2004 7:02 EDT Angelo William MD CHEMISTRY & BLOOD GA S ORDERABLES Performing Organization Address [facility] Phone Number [facility] [address] [place] [address] * CREATININE (06/16/2004 5:45 EDT) Creatinine 0.7 0.7 - 1.5 mg/dl [facility] 06/16/2004 5:45 EDT 06/16/2004 7:02 EDT Angelo William MD HISTORICAL LAB FOR S Q LOAD Performing Organization Address [facility] Phone Number [facility] [address] [place] [address] * (ABNORMAL) BUN (06/16/2004 5:45 EDT) BUN 7(L) 10 - 26 mg/dl [facility] 06/16/2004 5:45 EDT 06/16/2004 7:02 EDT Angelo William MD CHEMISTRY & BLOOD GA S ORDERABLES Performing Organization Address [facility] Phone Number [facility] [address] [place] [address] * ELECTROLYTES (06/16/2004 5:45 EDT) Sodium 140 136 - 145 mEq/L [facility] Potassium 4.7 3.5 - 5.0 mEq/L [facility] Chloride 106 96 - 110 mEq/L [facility] CO2 26 24 - 32 mEq/L [facility] 06/16/2004 5:45 EDT 06/16/2004 7:02 EDT Angelo William MD CHEMISTRY & BLOOD GA S ORDERABLES Performing Organization Address [facility]/ZIP Co de Phone Number [facility] [address] [place] [address] * CREATININE (06/16/2004 5:45 EDT) Creatinine 0.7 0.7 - 1.5 mg/dl [facility] 06/16/2004 5:45 EDT 06/16/2004 7:02 EDT Angelo William MD HISTORICAL LAB FOR S Q LOAD Performing Organization Address [facility] Co de Phone Number [facility] [address] [place] [address] * (ABNORMAL) BUN (06/16/2004 5:45 EDT) BUN 7(L) 10 - 26 mg/dl [facility] 06/16/2004 5:45 EDT 06/16/2004 7:02 EDT Angelo William MD CHEMISTRY & BLOOD GA S ORDERABLES Performing Organization Address [facility] Co de Phone Number [facility] [address] [place] [address] documented in this encounter Visit Diagnoses Not on filedocumented in this encounter Care Teams General Surgeon Relationship Specialty Start Date End Date Shannan Vieyra MD PCP - General 04/08/09 03/15/19 documented as of this encounter
--- OUTSIDE RECORDS SUMMARY | 2024-05-24 15:31 | XMS_ITS | Encounter Summary ---
Author Organization [facility] Address [address] [place] [address] Care Team Providers Care Hotel Clerk Name Role Phone Unavailable Primary Care Provider Unavailabl e Encounter Details Date Type Department Care Team (Latest Contact Info) Description 10/12/2004 2:29 EST - 10/12/2004 11:59 EST Hospital Encounter [facility] Emergency Department - [address] [address] Emergency, Default, MD Discharge Disposition: Home or [...] Procedure Name Priority Date/Time Associated Diagnosis Comments N. GONORRHOEAE AMPLIFIED PROBE Routine 10/14/2004 11:09 EST ZZCHLAMYDIA TRACHOMATIS AMPLIFIED PROBE Routine 10/14/2004 11:09 EST documented in this encounter Results * N. GONORRHOEAE AMPLIFIED PROBE (10/14/2004 11:09 EST) Result No Neisseria gonorrhoeae DNA detected by skilled labor mediated amplification. [facility] Report Status Final [id number] [facility] Specimen Description Cervix [facility] 10/14/2004 11:0 9 EST 10/15/2004 11:09 EST True Ledesma MD MICROBIOLOGY - GE NERAL ORDERABLES Performing Organization Address [facility] Co de Phone Number [facility] [address] [place] [address] * CHLAMYDIA TRACHOMATIS AMPLIFIED PROBE (10/14/2004 11:09 EST) Specimen Description Cervix [facility] Result No Chlamydia trachomatis DNA detected by skilled labor mediated amplification. [facility] Report Status Final [id number] [facility] 10/14/2004 11:0 9 EST 10/15/2004 11:09 EST True Ledesma MD MICROBIOLOGY - GE NERAL ORDERABLES Performing Organization Address [facility] Co de Phone Number [facility] [address] [place] [address] documented in this encounter Visit Diagnoses Not on filedocumented in this encounter
--- OUTSIDE RECORDS SUMMARY | 2024-05-24 15:31 | XMS_ITS | Encounter Summary ---
Author Organization [facility] Address [address] [place] [address] Care Team Providers Care Product Technician Name Role Phone Shannan Vieyra MD Primary Care Provider Unavail able Encounter Details Date Type Department Care Team (Late st Contact Info) Description 06/05/2004 Results Only [facility] - Maple conversion [address] [place] [address] Cassy Craig MD [address] [place] [address] Social History Tobacco Use Types Packs/Day Years [...] Diagnosis Comments GROUP A STREP CULTURE Routine 06/05/2004 12:03 EDT documented in this encounter Results * PHARYNGITIS CULTURE (06/05/2004 12:03 EDT) Specimen Description Throat [facility] Result NO GROUP A BETA STREPTOCOCCI ISOLATED [facility] Report Status Final [id number] [facility] 06/05/2004 12:0 3 EDT 06/05/2004 16:37 EDT Cassy Craig MD MICROBIOLOGY - GENE [facility] ORDERABLES [facility] [address] [place] [address] documented in this encounter Visit Diagnoses Not on filedocumented in this encounter Care Teams Product Technician Relationship Specialty Start Date End Date Shannan Vieyra MD PCP - General 04/08/09 03/15/19 documented as of this encounter
--- OUTSIDE RECORDS SUMMARY | 2024-05-24 15:31 | XMS_ITS | Encounter Summary ---
Author Organization [facility] Address [address] [place] [address] Care Team Providers Care Scrap Shear Operator Name Role Phone Unavailable Primary Care Provider Unavailabl e Encounter Details Date Type Department Care Team (Latest Contact Info) Description 06/05/2003 14:58 EDT Hospital Encounter [facility] - Maple conversion [address] [place] [address] Germain Mason MD [address] [place] [phone] Discharge Disposition: Auto Discharge Social History Tobacco [...] Date/Time Associated Diagnosis Comments T3, TOTAL Routine 06/05/2003 14:55 EDT TSH Routine 06/05/2003 14:55 EDT T4 FREE Routine 06/05/2003 14:55 EDT documented in this encounter Results * (ABNORMAL) TSH (06/05/2003 14:55 EDT) TSH <0.02(L) 0.35 - 5.50 uIU/ml [facility] 06/05/2003 14:5 5 EDT 06/05/2003 14:57 EDT Germain Mason MD CHEMISTRY & BLOOD GA S ORDERABLES Performing Organization Address [facility] Co de Phone Number [facility] [address] [place] [address] * (ABNORMAL) T3, TOTAL (06/05/2003 14:55 EDT) T3, Total 284(H) 60 - 181 ng/dl [facility] 06/05/2003 14:5 5 EDT 06/05/2003 14:57 EDT Germain Mason MD CHEMISTRY & BLOOD GA S ORDERABLES Performing Organization Address [facility] Co de Phone Number [facility] [address] [place] [address] * (ABNORMAL) T4 FREE (06/05/2003 14:55 EDT) Free T4 1.9(H) 0.8 - 1.8 ng/dl [facility] 06/05/2003 14:5 5 EDT 06/05/2003 14:57 EDT Germain Mason MD CHEMISTRY & BLOOD GA S ORDERABLES Performing Organization Address [facility] Co de Phone Number [facility] [address] [place] [address] documented in this encounter Visit Diagnoses Not on filedocumented in this encounter
--- OUTSIDE RECORDS SUMMARY | 2024-05-24 15:31 | XMS_ITS | Encounter Summary ---
Author Organization [facility] Address [address] [place] [address] Care Team Providers Care Egg Packer Name Role Phone Unavailable Primary Care Provider Unavailabl e Encounter Details Date Type Department Care Team (Late st Contact Info) Description 11/13/2003 14:05 [facility] Hospital Encounter [facility] Other [address] [place] [address] Leida Cerda PA-C [address] [place] [address] [address] [place] [address] Social History Tobacco Use Types Packs/Day Years Used Date Smoking Tobacco: Never Smokeless Tobacco: Never Alcohol Use Standard Drinks/Week Comments No 0 (1 standard drink = 0.6 oz pur e alcohol) [facility] Utilities Answer Date Recorded In the past 12 months has [facility] electric, gas, oil, or water company [...]
--- OUTSIDE RECORDS SUMMARY | 2024-05-24 15:31 | XMS_ITS | Encounter Summary ---
Author Organization [facility] Address [address] [place] [address] Care Team Providers Care Capital Project Engineer Name Role Phone Unavailable Primary Care Provider Unavailabl e Encounter Details Date Type Department Care Team (Late st Contact Info) Description 04/20/2004 1:59 EDT - 04/20/2004 11:59 EDT Hospital Encounter [facility] Neurosurgery Unit [address] [place] [address] Shannan Vieyra MD Bak, Christopher Dockery MD [address] [facility], Level [address] [place] [address] Discharge Disposition: Home or Self [...] Priority Date/Time Associated Diagnosis Comments CREATININE Routine 04/20/2004 7:12 EDT COMPLETE BLOOD COUNT AND DIFFERENTIAL Routine 04/20/2004 7:12 EDT BUN Routine 04/20/2004 7:12 EDT ELECTROLYTES Routine 04/20/2004 7:12 EDT BACTERIAL CULTURE, URINE Routine 04/20/2004 6:30 EDT CREATININE Routine 04/19/2004 23:45 EDT COMPLETE BLOOD COUNT AND DIFFERENTIAL Routine 04/19/2004 23:45 EDT BUN Routine 04/19/2004 23:45 EDT ELECTROLYTES Routine 04/19/2004 23:45 EDT CREATININE Routine 04/19/2004 5:15 EDT BACTERIAL CULTURE, BLOOD Routine 04/19/2004 5:15 EDT COMPLETE BLOOD COUNT AND DIFFERENTIAL Routine 04/19/2004 5:15 EDT BUN Routine 04/19/2004 5:15 EDT LIPASE Routine 04/19/2004 5:15 EDT GLUCOSE, SERUM Routine 04/19/2004 5:15 EDT HEPATIC FUNCTION PANEL (ALB,ALK PHOS,ALT,AST,DBIL,TOT YOGI,TOT PROT) Routine 04/19/2004 5:15 EDT ELECTROLYTES Routine 04/19/2004 5:15 EDT BACTERIAL CULTURE, BLOOD Routine 04/19/2004 5:10 EDT BACTERIAL CULTURE, URINE Routine 04/19/2004 5:05 EDT documented in this encounter Results * ELECTROLYTES (04/20/2004 7:12 EDT) Sodium 137 136 - 145 mEq/L [facility] Potassium 4.4 3.5 - 5.0 mEq/L [facility] Chloride 106 96 - 110 mEq/L [facility] CO2 24 24 - 32 mEq/L [facility] 04/20/2004 7:12 EDT 04/20/2004 7:43 EDT Shannan Vieyra MD CHEMISTRY & BLOOD GA S ORDERABLES [facility] [address] [place] [address] * CREATININE (04/20/2004 7:12 EDT) Creatinine 0.7 0.7 - 1.5 mg/dl [facility] 04/20/2004 7:12 EDT 04/20/2004 7:43 EDT Shannan Vieyra MD HISTORICAL LAB FOR S Q LOAD [facility] [address] [place] [address] * (ABNORMAL) HEMAGRAM AND DIFFERENTIAL (04/20/2004 7:12 EDT) WBC 7.97 4.0 - 12.4 K/cmm [facility] RBC 4.50 3.86 - 5.04 M/cmm [facility] Hemoglobin 12.1 11.6 - 15.2 gm/dl [facility] HCT 36.4 34.9 - 44.4 % [facility] MCV 81 81 - 98 fl [facility] MCH 27.0 26.7 - 33.3 pg [facility] MCHC 33.3 32.1 - 35.9 gm/dl [facility] PLT 162 141 - 320 K/cmm [facility] RDW-CV 13.4 11.7 - 14.6 % [facility] % Neutrophils 64.7 45.5 - 79.7 % [facility] % Lymphocytes 22.1 15.0 - 46.8 % [facility] % Monocytes 11.2 1.8 - 12.0 % [facility] % Eosinophils 1.3 0.6 - 6.9 % [facility] % Basophils 0.7 0.2 - 1.4 % [facility] ABS Neutrophils 5.16 2.20 - 8.85 K/cmm [facility] ABS Lymphs 1.76 1.09 - 3.30 K/cmm [facility] ABS Monocytes 0.90(H) 0.1 - 0.8 K/cmm [facility] ABS Eosinophils 0.10 0.03 - 0.61 K/cmm [facility] ABS Basophils 0.05 0.01 - 0.11 K/cmm [facility] Type of Diff: Automated [facility] 04/20/2004 7:12 EDT 04/20/2004 7:43 EDT Shannan Vieyra MD PACKAGES & DNA PROBE ORDERABLES Performing Organization Address [facility] Co de Phone Number [facility] [address] [place] [address] * (ABNORMAL) BUN (04/20/2004 7:12 EDT) BUN 4(L) 10 - 26 mg/dl [facility] 04/20/2004 7:12 EDT 04/20/2004 7:43 EDT Shannan Vieyra MD CHEMISTRY & BLOOD GA S ORDERABLES Performing Organization Address [facility] de Phone Number [facility] [address] [place] [address] * BACTERIAL CULTURE, URINE (04/20/2004 6:30 EDT) Specimen Description Urine [facility] Result Greater than 100,000 CFU/ml LACTOBACILL US SPECIES [facility] Report Status Final [id number] [facility] 04/20/2004 6:30 EDT 04/20/2004 7:54 EDT Shannan Vieyra MD MICROBIOLOGY - GENER AL ORDERABLES Performing Organization Address [facility] Co de Phone Number [facility] [address] [place] [address] * (ABNORMAL) ELECTROLYTES (04/19/2004 23:45 EDT) Sodium 138 136 - 145 mEq/L [facility] Potassium 3.4(L) 3.5 - 5.0 mEq/L [facility] Chloride 103 96 - 110 mEq/L [facility] CO2 22(L) 24 - 32 mEq/L [facility] 04/19/2004 23:4 5 EDT 04/19/2004 23:45 EDT Default Emergency MD CHEMISTRY & BLOOD G ORDERABLES Performing Organization Address [facility] de Phone Number [facility] [address] [place] [address] * (ABNORMAL) CREATININE (04/19/2004 23:45 EDT) Creatinine 0.6(L) 0.7 - 1.5 mg/dl [facility] 04/19/2004 23:4 5 EDT 04/19/2004 23:45 EDT Default Emergency HISTORICAL LAB FOR SQ LOAD Performing Organization Address [facility] de Phone Number [facility] [address] [place] [address] * (ABNORMAL) HEMAGRAM AND DIFFERENTIAL (04/19/2004 23:45 EDT) WBC 12.09 4.0 - 12.4 K/cmm [facility] RBC 5.03 3.86 - 5.04 M/cmm [facility] Hemoglobin 13.5 11.6 - 15.2 gm/dl [facility] HCT 40.2 34.9 - 44.4 % [facility] MCV 80(L) 81 - 98 fl [facility] MCH 26.8 26.7 - 33.3 pg [facility] MCHC 33.6 32.1 - 35.9 gm/dl [facility] PLT 219 141 - 320 K/cmm [facility] RDW-CV 13.2 11.7 - 14.6 % [facility] % Neutrophils 75.5 45.5 - 79.7 % [facility] % Lymphocytes 15.2 15.0 - 46.8 % [facility] % Monocytes 8.8 1.8 - 12.0 % [facility] % Eosinophils 0.3(L) 0.6 - 6.9 % [facility] % Basophils 0.2 0.2 - 1.4 % [facility] ABS Neutrophils 9.14(H) 2.20 - 8.85 K/cmm [facility] ABS Lymphs 1.83 1.09 - 3.30 K/cmm [facility] ABS Monocytes 1.06(H) 0.1 - 0.8 K/cmm [facility] ABS Eosinophils 0.04 0.03 - 0.61 K/cmm [facility] ABS Basophils 0.02 0.01 - 0.11 K/cmm [facility] Type of Diff: Automated [facility] 04/19/2004 23:4 5 EDT 04/19/2004 23:45 EDT Default Emergency MD PACKAGES & DNA PROB E ORDERABLES Performing Organization Address [facility] Co de Phone Number [facility] [address] [place] [address] * (ABNORMAL) BUN (04/19/2004 23:45 EDT) BUN 6(L) 10 - 26 mg/dl [facility] 04/19/2004 23:4 5 EDT 04/19/2004 23:45 EDT Default Emergency CHEMISTRY & BLOOD G ORDERABLES Performing Organization Address [facility] Co de Phone Number [facility] [address] [place] [address] * BACTERIAL CULTURE, BLOOD (04/19/2004 5:15 EDT) Specimen Description Blood Right Arm [facility] Result No growth [facility] Report Status Final [id number] [facility] 04/19/2004 5:15 EDT 04/19/2004 5:18 EDT Default Emergency MICROBIOLOGY - GENE RAL ORDERABLES Performing Organization Address [facility] Co de Phone Number [facility] [address] [place] [address] * GLUCOSE, SERUM (04/19/2004 5:15 EDT) Glucose, Serum 94 70 - 110 mg/dl [facility] 04/19/2004 5:15 EDT 04/19/2004 5:15 EDT Default Emergency MD CHEMISTRY & BLOOD G ORDERABLES Performing Organization Address [facility] de Phone Number [facility] [address] [place] [address] * (ABNORMAL) ELECTROLYTES (04/19/2004 5:15 EDT) Sodium 138 136 - 145 mEq/L [facility] Potassium 4.0 3.5 - 5.0 mEq/L [facility] Chloride 107 96 - 110 mEq/L [facility] CO2 22(L) 24 - 32 mEq/L [facility] 04/19/2004 5:15 EDT 04/19/2004 5:15 EDT Default Emergency MD CHEMISTRY & BLOOD G ORDERABLES Performing Organization Address [facility] Phone Number [facility] [address] [place] [address] * (ABNORMAL) LIVER FUNCTION TESTS (04/19/2004 5:15 EDT) Albumin 3.3(L) 3.4 - 4.9 g/dl [facility] Total Protein 6.5 6.5 - 8.0 g/dl [facility] Total Alkaline Phosphatase 95 38 - 126 U/L [facility] ALT 17 9 - 52 U/L [facility] AST 12(L) 15 - 46 U/L [facility] Unconjugated Bilirubin 0.6 0.1 - 1.1 mg/dl [facility] Conjugated Bilirubin 0.0 0.0 - 0.3 mg/dl [facility] Bilirubin, Total 0.5 0.2 - 1.3 mg/dl [facility] 04/19/2004 5:15 EDT 04/19/2004 5:15 EDT Default Emergency MD CHEMISTRY & BLOOD G ORDERABLES Performing Organization Address [facility]/ZIP Co de Phone Number [facility] [address] [place] [address] * LIPASE (04/19/2004 5:15 EDT) Lipase 51 0 - 250 U/L [facility] 04/19/2004 5:15 EDT 04/19/2004 5:15 EDT Default Emergency MD CHEMISTRY & BLOOD G ORDERABLES Performing Organization Address [facility] Co de Phone Number [facility] [address] [place] [address] * CREATININE (04/19/2004 5:15 EDT) Pathologist [facility] Creatinine 0.7 0.7 - 1.5 mg/dl [facility] 04/19/2004 5:15 EDT 04/19/2004 5:15 EDT Default Emergency HISTORICAL LAB FOR SQ LOAD Performing Organization Address [facility] Co de Phone Number [facility] [address] [place] [address] * (ABNORMAL) HEMAGRAM AND DIFFERENTIAL (04/19/2004 5:15 EDT) Pathologist [facility] WBC 11.24 4.0 - 12.4 K/cmm [facility] RBC 4.74 3.86 - 5.04 M/cmm [facility] Hemoglobin 13.0 11.6 - 15.2 gm/dl [facility] HCT 38.1 34.9 - 44.4 % [facility] MCV 80(L) 81 - 98 fl [facility] MCH 27.5 26.7 - 33.3 pg [facility] MCHC 34.2 32.1 - 35.9 gm/dl [facility] PLT 210 141 - 320 K/cmm [facility] RDW-CV 13.8 11.7 - 14.6 % [facility] % Neutrophils 78.1 45.5 - 79.7 % [facility] % Lymphocytes 12.3(L) 15.0 - 46.8 % [facility] % Monocytes 9.1 1.8 - 12.0 % [facility] % Eosinophils 0.5(L) 0.6 - 6.9 % [facility] % Basophils 0.0(L) 0.2 - 1.4 % [facility] ABS Neutrophils 8.78 2.20 - 8.85 K/cmm [facility] ABS Lymphs 1.38 1.09 - 3.30 K/cmm [facility] ABS Monocytes 1.02(H) 0.1 - 0.8 K/cmm [facility] ABS Eosinophils 0.06 0.03 - 0.61 K/cmm [facility] ABS Basophils 0.00(L) 0.01 - 0.11 K/cmm [facility] Type of Diff: Automated [facility] 04/19/2004 5:15 EDT 04/19/2004 5:15 EDT Default Emergency MD PACKAGES & DNA PROB E ORDERABLES Performing Organization Address [facility] Co de Phone Number [facility] [address] [place] [address] * (ABNORMAL) BUN (04/19/2004 5:15 EDT) BUN 8(L) 10 - 26 mg/dl [facility] 04/19/2004 5:15 EDT 04/19/2004 5:15 EDT Default Emergency MD CHEMISTRY & BLOOD G ORDERABLES Performing Organization Address [facility] Co de Phone Number [facility] [address] [place] [address] * BACTERIAL CULTURE, BLOOD (04/19/2004 5:10 EDT) Specimen Description Blood Left Arm [facility] Result ESCHERICHIA COLI Isolated in one bottle. First detected in less than 24 hours. [facility] Report Status Final [id number] [facility] 04/19/2004 5:10 EDT 04/19/2004 5:18 EDT Narrative Organism Antibiotic Method Susceptibility Escherichia coliisolated in one bottle. first detected in less than 24 hours. Ampicillin SUSCEPTIBILITY (SAÚL) 2 Susceptible Susceptible Escherichia coliisolated in one bottle. first detected in less than 24 hours. Cefazolin SUSCEPTIBILITY (SAÚL) <=8 Susceptible Susceptible Escherichia coliisolated in one bottle. first detected in less than 24 hours. Gentamicin SUSCEPTIBILITY (SAÚL) <=0.5 Susceptible Susceptible Escherichia coliisolated in one bottle. first detected in less than 24 hours. Tobramycin SUSCEPTIBILITY (SAÚL) <=0.5 Susceptible Susceptible Escherichia coliisolated in one bottle. first detected in less than 24 hours. Imipenem SUSCEPTIBILITY (SAÚL) <=4 Susceptible Susceptible Escherichia coliisolated in one bottle. first detected in less than 24 hours. Ceftriaxone SUSCEPTIBILITY (SAÚL) <=8 Susceptible Susceptible Escherichia coliisolated in one bottle. first detected in less than 24 hours. Trimethoprim-Sulfamet hoxazole SUSCEPTIBILITY (SAÚL) <=.5/9.5 Susceptible Susceptible Escherichia coliisolated in one bottle. first detected in less than 24 hours. Ciprofloxacin SUSCEPTIBILITY (SAÚL) <=0.5 Susceptible Susceptible Escherichia coliisolated in one bottle. first detected in less than 24 hours. Ceftazidime SUSCEPTIBILITY (SAÚL) <=8 Susceptible Susceptible Escherichia coliisolated in one bottle. first detected in less than 24 hours. Piperacillin Tazobactam SUSCEPTIBILITY (SAÚL) <=8 Susceptible Susceptible Escherichia coliisolated in one bottle. first detected in less than 24 hours. Ampicillin Sulbactam SUSCEPTIBILITY (SAÚL) <=4 Susceptible Susceptible Default Emergency MICROBIOLOGY - [facility] ORDERABLES [facility] [address] [place] [address] * BACTERIAL CULTURE, URINE (04/19/2004 5:05 EDT) Specimen Description Urine [facility] Result Greater than 100,000 CFU/ml ESCHERICHIA COLI [facility] Report Status Final [id number] [facility] 04/19/2004 5:05 EDT 04/19/2004 5:31 EDT Narrative Organism Antibiotic Method Susceptibility Greater than 100,000 cfu/mlescherichia coli Ampicillin SUSCEPTIBILITY (SAÚL) 2 Susceptible Susceptible Greater than 100,000 cfu/mlescherichia coli Cefazolin SUSCEPTIBILITY (SAÚL) <=8 Susceptible Susceptible Greater than 100,000 cfu/mlescherichia coli Gentamicin SUSCEPTIBILITY (SAÚL) <=0.5 Susceptible Susceptible Greater than 100,000 cfu/mlescherichia coli Trimethoprim-Sulfametho xazole SUSCEPTIBILITY (SAÚL) <=.5/9.5 Susceptible Susceptible Greater than 100,000 cfu/mlescherichia coli Nitrofurantoin SUSCEPTIBILITY (SAÚL) <=32 Susceptible Susceptible Greater than 100,000 cfu/mlescherichia coli Tobramycin SUSCEPTIBILITY (SAÚL) <=0.5 Susceptible Susceptible Greater than 100,000 cfu/mlescherichia coli Imipenem SUSCEPTIBILITY (SAÚL) <=4 Susceptible Susceptible Greater than 100,000 cfu/mlescherichia coli Ceftriaxone SUSCEPTIBILITY (SAÚL) <=8 Susceptible Susceptible Greater than 100,000 cfu/mlescherichia coli Ciprofloxacin SUSCEPTIBILITY (SAÚL) <=0.5 Susceptible Susceptible Greater than 100,000 cfu/mlescherichia coli Piperacillin Tazobactam SUSCEPTIBILITY (SAÚL) <=8 Susceptible Susceptible Default Emergency MD MICROBIOLOGY - [facility] ORDERABLES [facility] [address] [place] [address] documented in this encounter Visit Diagnoses Not on filedocumented in this encounter
--- OUTSIDE RECORDS SUMMARY | 2024-05-24 15:31 | XMS_ITS | Encounter Summary ---
Author Organization [facility] Address [address] [place] [address] Care Team Providers Care Manager Van Name Role Phone Shannan Vieyra MD Primary Care Provider Unavail able Encounter Details Date Type Department Care Team (Late st Contact Info) Description 06/14/2004 Results Only [facility] [address] [place] [address] Angelo William MD Social History Tobacco Use [...] Comments COMPLETE BLOOD COUNT AND DIFFERENTIAL Routine 06/14/2004 8:10 EDT COMPLETE BLOOD COUNT AND DIFFERENTIAL Routine 06/14/2004 8:10 EDT COMPLETE BLOOD COUNT AND DIFFERENTIAL Routine 06/14/2004 8:10 EDT COMPLETE BLOOD COUNT AND DIFFERENTIAL Routine 06/14/2004 8:10 EDT documented in this encounter Results * HEMAGRAM AND DIFFERENTIAL (06/14/2004 8:10 EDT) % Neutrophils 55.0 45.5 - 79.7 % [facility] % Lymphocytes 34.1 15.0 - 46.8 % [facility] % Monocytes 5.9 1.8 - 12.0 % [facility] % Eosinophils 4.6 0.6 - 6.9 % [facility] % Basophils 0.4 0.2 - 1.4 % [facility] ABS Neutrophils 3.48 2.20 - 8.85 K/cmm [facility] ABS Lymphs 2.16 1.09 - 3.30 K/cmm [facility] ABS Monocytes 0.37 0.1 - 0.8 K/cmm [facility] ABS Eosinophils 0.29 0.03 - 0.61 K/cmm [facility] ABS Basophils 0.02 0.01 - 0.11 K/cmm [facility] Type of Diff: Automated [facility] 06/14/2004 8:10 EDT 06/14/2004 9:12 EDT Angelo William MD PACKAGES & DNA PROBE ORDERABLES Performing Organization Address [facility] de Phone Number [facility] [address] [place] [address] * (ABNORMAL) HEMAGRAM AND DIFFERENTIAL (06/14/2004 8:10 EDT) WBC 6.33 4.0 - 12.4 K/cmm [facility] RBC 4.78 3.86 - 5.04 M/cmm [facility] Hemoglobin 13.4 11.6 - 15.2 gm/dl [facility] HCT 39.6 34.9 - 44.4 % [facility] MCV 83 81 - 98 fl [facility] MCH 28.1 26.7 - 33.3 pg [facility] MCHC 34.0 32.1 - 35.9 gm/dl [facility] PLT 166 141 - 320 K/cmm [facility] RDW-CV 15.4(H) 11.7 - 14.6 % [facility] 06/14/2004 8:10 EDT 06/14/2004 9:12 EDT Angelo William MD PACKAGES & DNA PROBE ORDERABLES Performing Organization Address [facility] Co de Phone Number [facility] [address] [place] [address] * HEMAGRAM AND DIFFERENTIAL (06/14/2004 8:10 EDT) % Neutrophils 55.0 45.5 - 79.7 % [facility] % Lymphocytes 34.1 15.0 - 46.8 % [facility] % Monocytes 5.9 1.8 - 12.0 % [facility] % Eosinophils 4.6 0.6 - 6.9 % [facility] % Basophils 0.4 0.2 - 1.4 % [facility] ABS Neutrophils 3.48 2.20 - 8.85 K/cmm [facility] ABS Lymphs 2.16 1.09 - 3.30 K/cmm [facility] ABS Monocytes 0.37 0.1 - 0.8 K/cmm [facility] ABS Eosinophils 0.29 0.03 - 0.61 K/cmm [facility] ABS Basophils 0.02 0.01 - 0.11 K/cmm [facility] Type of Diff: Automated [facility] 06/14/2004 8:10 EDT 06/14/2004 9:12 EDT Angelo William MD PACKAGES & DNA PROBE ORDERABLES [facility] [address] [place] [address] * (ABNORMAL) HEMAGRAM AND DIFFERENTIAL (06/14/2004 8:10 EDT) WBC 6.33 4.0 - 12.4 K/cmm [facility] RBC 4.78 3.86 - 5.04 M/cmm [facility] Hemoglobin 13.4 11.6 - 15.2 gm/dl [facility] HCT 39.6 34.9 - 44.4 % [facility] MCV 83 81 - 98 fl [facility] MCH 28.1 26.7 - 33.3 pg [facility] MCHC 34.0 32.1 - 35.9 gm/dl [facility] PLT 166 141 - 320 K/cmm [facility] RDW-CV 15.4(H) 11.7 - 14.6 % [facility] 06/14/2004 8:10 EDT 06/14/2004 9:12 EDT Angelo William MD PACKAGES & DNA PROBE ORDERABLES Performing Organization Address City/State/[facility] Co de Phone Number [facility] [address] [place] [address] documented in this encounter Visit Diagnoses Not on filedocumented in this encounter Care Teams Manager Van Relationship Specialty Start Date End Date Shannan Vieyra MD PCP - General 04/08/09 03/15/19 documented as of this encounter
--- OUTSIDE RECORDS SUMMARY | 2024-05-24 15:31 | XMS_ITS | Encounter Summary ---
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 Name Role Phone Unavailable Primary Care Provider Unavailabl e Encounter Details Date Type Department Care Team (Latest Contact Info) Description 06/06/2004 19:55 EDT - 06/07/2004 11:59 EDT Hospital Encounter [facility] [place] [address] Emergency, Default, MD Discharge Disposition: Home or [...] Procedure Name Priority Date/Time Associated Diagnosis Comments INTRAVENOUS UROGRAPHY Routine 06/17/2004 11:32 EDT CHEST PA AND LATERAL Routine 06/06/2004 23:57 EDT RAD US ABDOMEN ONE ORGAN/QUADRANT Routine 06/06/2004 23:16 EDT documented in this encounter Results * INTRAVENOUS UROGRAPHY (06/17/2004 11:32 EDT) Anatomical Region Laterality Modality Other 06/17/2004 11:3 2 EDT Impressions 06/09/2009 13:59 EDT IMPRESSION: 1) Right upper pole renal contour not clearly seen. However, the renal contours of the right lower pole and left kidney were unremarkable. 2) Minimal blunting of the right upper pole calyces. 3) Mild to moderate postvoid residual. /sb Narrative 06/09/2009 13:59 EDT 24 Y/O FEMALE WITH RECURRENT PYELONEPHRITIS R/O EVAL FOR KIDNEY/ URETERANOMOLIES INTRAVENOUS UROGRAM: 06/17/04, 1030 COMPARISON: Renal colic CT of 04/19/04 and right upper quadrant ultrasound of 06/06/04. FINDINGS: Preliminary psych assistant KUB shows an unremarkable bowel-gas pattern. The bony structures are unremarkable. On the initial KUB image, there is an well-defined opacity in the pelvis with an area of lucency in the inferior portion. These findings are likely explained by the patient's uterus and an incompletely emptied bladder. After the administration of intravenous contrast, there were symmetric nephrograms. The right upper pole renal contour was not well seen, secondary to overlying bowel gas. There was, additionally, minimal blunting of the right upper pole calyces. The right kidney is also noted to be smaller than the left kidney. This does correlate with findings on recent CT scan and ultrasound. Postvoid shots of the bladder showed residual urine. Procedure Note Rigo Newby Jr., MD / Wyatt Guillaume MD - 06/09/2009 24 Y/O FEMALE WITH RECURRENT PYELONEPHRITIS R/O EVAL FOR KIDNEY/ URETERANOMOLIES INTRAVENOUS UROGRAM: 06/17/04, 1030 COMPARISON: Renal colic CT of 04/19/04 and right upper quadrant ultrasound of 06/06/04. FINDINGS: Preliminary psych assistant KUB shows an unremarkable bowel-gas pattern. The bony structures are unremarkable. On the initial KUB image, there is an well-defined opacity in the pelvis with an area of lucency in the inferior portion. These findings are likely explained by the patient's uterus and an incompletely emptied bladder. After the administration of intravenous contrast, there were symmetric nephrograms. The right upper pole renal contour was not well seen, secondary to overlying bowel gas. There was, additionally, minimal blunting of the right upper pole calyces. The right kidney is also noted to be smaller than the left kidney. This does correlate with findings on recent CT scan and ultrasound. Postvoid shots of the bladder showed residual urine. IMPRESSION IMPRESSION: 1) Right upper pole renal contour not clearly seen. However, the renal contours of the right lower pole and left kidney were unremarkable. 2) Minimal blunting of the right upper pole calyces. 3) Mild to moderate postvoid residual. / Angelo William MD [facility] ORDERABLES * CHEST PA AND LATERAL (06/06/2004 23:57 EDT) Anatomical Region Laterality Modality Other 06/06/2004 23:5 7 EDT Impressions 06/09/2009 16:10 EDT IMPRESSION: Negative chest. /[facility] Narrative 06/09/2009 16:10 EDT FEVER INFILTRATE CHEST 2 VIEWS PA and lateral views of the chest are essentially normal. There is no evidence of pneumonia. Procedure Note Angelo Dwyer MD - 06/09/2009 FEVER INFILTRATE CHEST 2 VIEWS PA and lateral views of the chest are essentially normal. There is no evidence of pneumonia. IMPRESSION IMPRESSION: Negative chest. /[facility] Mitzi ARAUJO [facility] ORDERABLES * RAD US ABDOMEN ONE ORGAN/QUADRANT (06/06/2004 23:16 EDT) Anatomical Region Laterality Modality Other 06/06/2004 23:1 6 EDT Narrative 06/09/2009 16:10 EDT h/o pyelo. RUQ PAIN ABSCESS VS STONES ULTRASOUND ABDOMEN ONE ORGAN/QUADRANT 06/06/04, 2230 hours CLINICAL HISTORY: history of pyelonephritis, right upper quadrant pain, assess for abscess versus stones. FINDINGS: A complete right upper quadrant ultrasound examination was completed. The liver has a normal echogenic appearance and there is no evidence of intra or extrahepatic ductal dilatation. There are echogenic gallstones with shadowing within the gallbladder. The largest stone measures 1cm in long dimension. The gallbladder wall is not thickened and there is no evidence of pericholecystic fluid. The common bile duct measures 5.0mm in the region of the nkechi hepatis. There was no sonographic Ramirez's sign during the ultrasound examination. The right kidney has a normal echogenic appearance and measures 8.4cm in long dimension. The head and body of the pancreas have a normal echogenic appearance. The tail is incompletely visualized on this examination. Proximal abdominal aorta is normal in appearance and measure. IMPRESSION: Cholelithiasis without evidence of cholecystitis. No evidence of biliary obstruction. These findings were discussed with VAN Carty, Emergency Room at the time of the examination. D 06/07/04 T 06/10/04 /emanuel Procedure Note Miguel Gauthier MD / Elayne Ruano MD - 06/09/2009 h/o pyelo. RUQ PAIN ABSCESS VS STONES ULTRASOUND ABDOMEN ONE ORGAN/QUADRANT 06/06/04, 2230 hours CLINICAL HISTORY: history of pyelonephritis, right upper quadrant pain, assess for abscess versus stones. FINDINGS: A complete right upper quadrant ultrasound examination was completed. The liver has a normal echogenic appearance and there is no evidence of intra or extrahepatic ductal dilatation. There are echogenic gallstones with shadowing within the gallbladder. The largest stone measures 1cm in long dimension. The gallbladder wall is not thickened and there is no evidence of pericholecystic fluid. The common bile duct measures 5.0mm in the region of the nkechi hepatis. There was no sonographic Ramirez's sign during the ultrasound examination. The right kidney has a normal echogenic appearance and measures 8.4cm in long dimension. The head and body of the pancreas have a normal echogenic appearance. The tail is incompletely visualized on this examination. Proximal abdominal aorta is normal in appearance and measure. IMPRESSION: Cholelithiasis without evidence of cholecystitis. No evidence of biliary obstruction. These findings were discussed with VAN Carty, Emergency Room at the time of the examination. D 06/07/04 T 06/10/04 /emanuel Mitzi ARAUJO IMG US ORDERABLES documented in this encounter Visit Diagnoses Not on filedocumented in this encounter
--- OUTSIDE RECORDS SUMMARY | 2024-05-24 15:31 | XMS_ITS | Encounter Summary ---
Author Organization 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 Name Role Phone Unavailable Primary Care Provider Unavailabl e Encounter Details Date Type Department Care Team (Late st Contact Info) Description 06/26/2004 8:14 EDT - 06/26/2004 11:59 EDT Hospital Encounter [address] [address] Richard Covarrubias MD [address] [place] [address], [address] [place] [id number] Discharge Disposition: Auto Discharge Social History Tobacco [...] Name Priority Date/Time Associated Diagnosis Comments NM RENAL LASIX WASHOUT Routine 06/26/2004 11:34 EDT documented in this encounter Results * NM RENAL LASIX WASHOUT (06/26/2004 11:34 EDT) Anatomical Region Laterality Modality Other 06/26/2004 11:3 4 EDT Impressions 06/11/2009 10:06 EDT IMPRESSION: Diminutive appearance of the right kidney. Otherwise normal examination without evidence of obstruction. dw Narrative 06/11/2009 10:06 EDT RENAL LASIX WASHOUT- ??PYELONEPHRITIS R/O SCAR, OBSTRUCTION NUCLEAR MEDICINE RENAL LASIX WASHOUT STUDY: 06/26/04 INDICATION FOR STUDY: Pyelonephritis. Rule out scar or obstruction. TECHNIQUE: After the IV simultaneous injection of 25 mg Lasix and 11 mCi Tc-99m MAG-3, renal flow study, renal scan and renogram were performed in posterior projection. FINDINGS: Renal blood flow, uptake, and excretion are normal bilaterally. However, the right kidney is significantly smaller than the left, but both can have normal renal contours. Normal curves are identified in the renograms bilaterally. LEFT RIGHT Peak Time (min): 2.5 2.5 T 1/2: 4.25 4.25 % Function: 71% 29% Procedure Note John Hester MD / Ronald Yao MD - 06/11/2009 RENAL LASIX WASHOUT- PYELONEPHRITIS R/O SCAR, OBSTRUCTION NUCLEAR MEDICINE RENAL LASIX WASHOUT STUDY: 06/26/04 INDICATION FOR STUDY: Pyelonephritis. Rule out scar or obstruction. TECHNIQUE: After the IV simultaneous injection of 25 mg Lasix and 11 mCi Tc-99m MAG-3, renal flow study, renal scan and renogram were performed in posterior projection. FINDINGS: Renal blood flow, uptake, and excretion are normal bilaterally. However, the right kidney is significantly smaller than the left, but both can have normal renal contours. Normal curves are identified in the renograms bilaterally. LEFT RIGHT Peak Time (min): 2.5 2.5 T 1/2: 4.25 4.25 % Function: 71% 29% IMPRESSION IMPRESSION: Diminutive appearance of the right kidney. Otherwise normal examination without evidence of obstruction. dw Richard Covarrubias MD IMG NM ORDERAB LES documented in this encounter Visit Diagnoses Not on filedocumented in this encounter
--- OUTSIDE RECORDS SUMMARY | 2024-05-24 15:31 | XMS_ITS | Encounter Summary ---
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 Phone Shannan Vieyra MD Primary Care Provider Unavail able Encounter Details Date Type Department Care Team (Late st Contact Info) Description 02/08/2004 Results Only [facility] [address] [place] [address] Eliza Sue MD [facility] [email or web address] [facility], [address] [place] [address] Social History Tobacco Use Types Packs/Day Years Used Date Smoking Tobacco: Never Assessed Sex and Gender Information Value Date Recorded Sex Assigned at Not on file Gender Identity Not on file Sexual Orientation Not on file documented as of this encounter Plan of Treatment Not on file documented as of this encounter Procedures Procedure Name Priority Date/Time Associated Diagnosis Comments BACTERIAL CULTURE, URINE Routine 02/08/2004 17:49 EDT URINE SEDIMENT (MICRO) WITHOUT REFLEX TO CULTURE Routine 02/08/2004 16:55 EDT BACTERIAL CULTURE, URINE Routine 02/08/2004 16:55 EDT documented in this encounter Results * BACTERIAL CULTURE, URINE (02/08/2004 17:49 EDT) Specimen Description Urine [facility] Result Greater than 100,000 CFU/ml LACTOBACILLU S SPECIES Less than 10,000 CFU/ml Mixed gram positive growth [facility] Report Status Final [id number] [facility] 02/08/2004 17:4 9 EDT 02/08/2004 19:32 EDT Adriana August NP MICROBIOLOGY - GENER AL ORDERABLES Performing Organization Address [facility] Co de Phone Number [facility] [address] [place] [address] * BACTERIAL CULTURE, URINE (02/08/2004 16:55 EDT) Specimen Description Urine [facility] Result Ordered in error Credit Issued Duplicate order see [facility] [id number] [facility] Report Status Final [id number] [facility] 02/08/2004 16:5 5 EDT 02/08/2004 19:20 EDT Adriana August NP MICROBIOLOGY - GENER AL ORDERABLES Performing Organization Address [facility] de Phone Number [facility] [address] [place] [address] * (ABNORMAL) URINE MICROSCOPIC ONLY (02/08/2004 16:55 EDT) WBC, UA 1 to 5 0 - 5 /HPF [facility] RBC, UA None seen 0 - 5 /HPF [facility] Squam Epithel, UA Few(A) NS /HPF [facility] Renal Epithel, UA None seen NS /HPF [facility] Bacteria, UA Frequent(A) NS /HPF [facility] Crystals, UA None seen /HPF [facility] Hyaline Casts, UA None seen /LPF [facility] UA Comment Microscopic results are unreliable on urines unrefrig >2hrs or refrig >8hrs. [facility] Mucus, UA Mod [facility] 02/08/2004 16:5 5 EDT 02/08/2004 16:56 EDT Eliza Sue MD URINALYSIS ORDERAB LES Performing Organization Address [facility] Co de Phone Number [facility] [address] [place] [address] documented in this encounter Visit Diagnoses Not on filedocumented in this encounter Care Teams Asbestos Brake Lining Finisher Helper Relationship Specialty Start Date End Date Shannan Vieyra MD PCP - General 04/08/09 03/15/19 documented as of this encounter
--- OUTSIDE RECORDS SUMMARY | 2024-05-24 15:31 | XMS_ITS | Encounter Summary ---
Author Organization [facility] Address [address] [place] [address] Care Team Providers Care Vessel Scrapper Helper Name Role Phone Isela Winter MD Primary Care Provider Unavail able Encounter Details Date Type Department Care Team (Late st Contact Info) Description 06/05/2004 Office Visit [facility] [address] [place] [address] Jennifer Rhodes PA Social History Tobacco Use Types Packs/Day Years Used Date Smoking Tobacco: Never Assessed Sex and Gender Information Value Date Recorded Sex Assigned at Not on file Gender Identity Not on file Sexual Orientation Not on file documented as of this encounter Progress Notes * Jennifer Rhodes PA - 12/12/2009 1213 EST Emergency Department ??? Physician Summary Registration Date/Time 06/06/2004 19:55 Time Seen- upon arrival. Arrived- By private vehicle. Historian- patient. HISTORY OF PRESENT ILLNESS Chief Complaint: HEADACHE and FEVER. This started about 3 days ago Onset during work Is still present and now worse. It is described as sharp. Quality described as unlike previous headaches. Located in the left hemicranial, left parietal and left temporal region and region of the left ear and has had posterior neck pain. At its maximum, severity described as severe. When seen in the E.D., severity described as severe. Modifying factors: relieved by nothing. Not worsened by anything. She has hadmoderate localized numbness involving the right leg. No similar numbness previously. The patient has had vomiting (today). The vomiting has occurred numerous times. She has had moderate nausea. No preceding symptoms, blurred vision or photophobia. Patient has not had similar symptoms previously. The patient was seen recently in the emergency department and office. REVIEW OF SYSTEMS The patient has had fever, muscle aches and ear pain. She has had back pain (generalized). No sinuspressure, sore throat, carbon monoxide exposure, tick bite or head injury. No chest pain, difficulty breathing, cough, abdominal pain or diarrhea. No pain with urination, skin rash or enlarged lymph nodes. PAST HISTORY See nurses notes. graves, chronic uti's, septicemia(2 weeks ago), svt Medications: See nurses notes. Allergies: See nurses notes. SOCIAL HISTORY The patient drinks occasionally and lightly. Nonsmoker. ADDITIONAL NOTES The nursing notes have been reviewed. PHYSICAL EXAM Appearance: Alert. Patient in moderatedistress. teary Vital Signs: The vital signs have been reviewed. Head: No tenderness to palpation/percussion over the sinuses. Eyes: Pupils equal, round and reactive to light. Eyes normal inspection. R-simpson dev. of uvula ENT: Ears normal. Nose normal. Pharynx normal. Normal ear exam. No nasal discharge, pharyngeal erythema or tonsillar exudate. Neck: Normal inspection. Necksupple. No lymphadenopathy. CVS: Tachycardia. Heart sounds normal. Respiratory: No respiratory distress. Breath sounds normal. Abdomen: Abdomen soft and nontender. No organomegaly. Back: Normal inspection. No CVA tenderness. Skin: Normal skin color. Diaphoresis. hot No skin rash. Extremities: Extremities exhibit normal ROM. No pedal edema. Neuro: Oriented X 3. Alert. Cranial nerves normal (as tested). No motor deficit. No sensory deficit. Reflexes normal. LABS, X-RAYS, AND EKG Abdominal Sonogram: No acute changes. Gallstones are present. Kidney normal. No gallbladder wall thickening, pericholecystic fluid, dilated common duct or common duct stones. The abdominal sonogram was interpreted by the radiologist and discussed with the radiologist. Laboratory Tests: (csf-3rbc, 528wbc, 91 tot prot, 40glucose, diff-92lymphs, 4monos). Bedside Tests: Urine dipstick positive for ketones (strongly positive), protein and moderate leukocyte esterase. Urine dipstick negative for nitrite, glucose and bilirubin. CBC: WBC- normal. Segs- normal. Hgb- normal. HCT- normal. Platelets- normal. Chemistries: TP normal. Albumin normal. Total bilirubin normal. AST normal. ALT normal. Alkaline phosphatase normal. Lipase normal. Urinalysis: (cx-pending). WBCs present (greater than 50). RBCs present (1 - 5). No bacteria present. Urine dipstick. PROGRESS AND PROCEDURES E.DAnay Course: 22:19 lp sent ED Attending on duty and available for supervision: Kenisha Butler. Disposition: Discharged home. Condition: stable. Discharged home in stable condition. CLINICAL IMPRESSION Viral meningitis. Chronic pyelonephritis. INSTRUCTIONS Warnings: GENERAL WARNINGS: Return or contact your physician immediately if your condition worsens or changesunexpectedly, if not improving as expected, or if other problems arise. Prescription Medications: Vicodin 5 mg: take 1-2 orally every 4 hours as needed for pain. Dispense twenty (20). No refill. Generic substitute OK. Cipro 500 mg: take 1 tab orally every 12 hours for 10 days. No refills. Generic substitute OK. Follow-up: ISELA WINTER MD, , [facility], [address] [facility],[address], [place], [address] Follow up Tuesday. Jennifer Gardiner (Electronically signed Jennifer Gardiner 06/07/2004 3:39) Physician's Clinical Report Addenda Registration Date: 06/06/2004 06/12/2004 10:16 pt called back with labs results...has been admitted into the hospital. signed Pili Anderson R.N. - 06/12/2004 10:16) Emergency Department ??? Nursing Summary Registration Date/Time 06/06/2004 19:55 TRIAGE Initial Assessment Triage time 19:51 Jun 06 2004 Acuity: LEVEL 3. BP: 144 / 103 HR: 166 RR: 20 Temp: 39.6 C (tympanic). Alert. --19:57 Dashawn Oquendo R.N. Medications Trinidad: prn. Atenolol: 50mg bid. control pills. (TAPIZOL 10mg QID). --19:57 Dashawn Oquendo R.N. Allergies PENICILLIN. SULFA DRUGS. --19:57 Dashawn Oquendo R.N. History ChiefComplaint: HEADACHE. Onset was gradual (TUESDAY). Pain level now: 10/10. The patient has had vomiting. The vomiting hasoccurred numerous times and has been bilious. The patient has had generalized weakness. The patienthas had generalized numbness. The patient has had fever with chills and sweating. The temperature was measured orally and noted to be 102.2 degrees. The patient has had severe nausea. No sinus pain. 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 (VICODEN 2 TABS @ 1500, SUDAFED, FLONAZE, MOTRIN 800mg ). PAST HX: Supraventricular tachycardia. Headaches. Kidney infection. Grave's disease. No history of previous surgery. SOCIAL HX: The patient admits to drinking alcohol occasionally. Nonsmoker. No drug use. No report of abuse. Arrived by private vehicle and accompanied by friend. Historian: patient. --19:57 Dashawn Oquendo R.N. NURSING PROGRESS NOTES Progress Patient gowned. Head of bed elevated. Call light placed in reach. Side rails up x 1. Bed placed in lowest position. Brakes of bed on. --20:00 Thi Courtney.M.T. (ice chips to pt). --20:49 Garry ArellanoM.TAnay PHENERGAN 12.5 mg diluted with 5cc NS IVP. KETOROLAC 15 mg IVP. --21:10 Aura Jimenes R.N. (1l ns in c/o severe pollack states toradol improved body aches pollack worse jennifer rhodes notified pt states pollack is 10/10 crying appears in severe distress). --22:29 Jennifer Esteban R.N. MORPHINE 2mg diluted with IV fluid slow IVP over 5 minutes. IV patency established. IV site checked: no pain, redness, or swelling. IV flushed thoroughly pre- and post-medication administration. --22:50 Irina Hernández R.N. 16 fr in/out catheterization performed using sterile technique, with return of less than 50 cc yellow-colored urine. Urine collected. Urine sample sent to lab for urinalysis and culture (SG 1.015 PH 6.5 william 1+, ket 3+, blo tr intact, prot 1+, lila 2+). --22:52 Irina Hernández R.N. (urine neg). --22:58 Jennifer Esteban R.N. Patient transported to sonogram by stretcher. --23:32 Irina Hernández R.N. MORPHINE 3mg diluted with IV fluid slow IVP over 5 minutes. IV patency established. IV site checked: no pain, redness, or swelling. IV flushed thoroughly pre- and post-medication administration. --00:33 Irina Hernández R.N. Reassessment after medication administered. The patient is resting quietly. Patient reports currentpain level as 2/10. Overall patient status- the patient states feels better. --00:45 Irina Hernández R.N. CIPRO 400 mg IVPB (pre-mix) via IV pump. IV patency established. IV site checked: no pain, redness,or swelling. IV flushed thoroughly pre- and post- medication administration. --01:01 Irina Hernández R.N. (pt sleeping at present awaiting IV med to be completed). --01:39 Irina Hernández R.N. BP: 122 / 72 HR: 131 RR: 16 Temp: 39.6 tympanic O2 saturation: 100 % room air The patient reports has no complaints. Patient reports current pain level as 1/10. Overall patient status is improved- the patient states feels better. --01:59 Irina Hernández R.N. ACETAMINOPHEN 975 mg PO. --02:06 Irina Hernández R.N. Temp: 38.2 tympanic Overall patient status is improved- the patient states feels better. --03:05 Irina Hernández R.N. IV / I&O Flowsheet IV site #1, location right antecubital space. Saline lock in place. IV patent. No redness or swelling at site. IV line accessed- blood drawn and sterile technique used; site was prepped with alcohol;blood was withdrawn; additional blood was sent to the lab (10 cc drawn); flushed with 3 cc saline (sent to lab 20g). --20:42 Thi Arellano.M.TAnay IV fluid bag #1 discontinued (1000 cc absorbed). IV fluid started- #2 bag NS 1000 cc. Rate - wide open. --22:50 Irina Hernández R.N. IV fluid started- #3 bag NS 1000 cc. Rate - wide open. --00:26 Genesis Mahmood E.M.TAnya IV fluid bag #3 discontinued (1000 cc absorbed). --03:11 Irina Hernández R.N. IV site discontinued: IV catheter intact, dressing applied. --03:11 Irina Hernández R.N. DISPOSITION / DISCHARGE Patient reports pain level on departure as 0/10. Condition at departure: improved. No barriers to learning present. Discharge instructions reviewed with the patient and manager subway. Warnings reviewed. Reviewed medication. Treatments reviewed. Reviewed referrals. Activity restrictions were reviewed. Patient verbalized understanding. The patient was discharged home and accompanied by manager subway. The patient left the Emergency Department ambulatory and via private vehicle. --03:17 Ector Valderrama R.N. E.M.TAnay CastañedaM.TEctor Mayorga R.N., R.N. Locked/Released at 06/07/2004 3:46 by Irina Hernández R.N. * Jennifer Rhodes PA - 12/12/2009 1212 EST Emergency Department ??? Physician Summary Registration Date/Time 06/05/2004 23:56 Time Seen (00:57 ). Arrived- By private vehicle. Historian- patient. HISTORY OF PRESENT ILLNESS Chief Complaint: EARACHE. This started today and is still present. Location- left ear. The pain is described as severe. She has had ear pain. No ear drainage, hearing loss, nasal discharge or congestion or sinus pressure. No complaint of foreign body in the ear, ear trauma, recent barotrauma, sore throat or toothache. No jaw pain or facial pain. Patienthas not had similar symptoms previously. The patient was seen recently in the office (today). REVIEW OF SYSTEMS The patient has had chills. She has had fever. The temperature was measured and noted to be 102 degrees. No cough or difficulty breathing. PAST HISTORY See nurses notes. card, thyroid dz. chronic uti's and septicemia (2 weeks ago) Medications: See nurses notes. Allergies: See nurses notes. SOCIAL HISTORY Nonsmoker. No alcohol. ADDITIONAL NOTES The nursing notes have been reviewed. PHYSICAL EXAM Appearance: Alert. Patient in moderate distress (writhing). Distress appears due to pain and anxiety. Vital Signs: The vital signs have been reviewed. Eyes: Eyes normal inspection. Ear (left): There is mild erythema of the tympanic membrane (small area a superior aspsct of tm). No dullness of the tympanic membrane, fluid behind the tympanic membrane, bulging of the tympanic membrane or perforation of the tympanic membrane. Does not have loss of tympanic membrane landmarks. Light reflex normal. Left ear normal. Ear (right): Right ear normal. Right tympanic membrane normal. Nose: Nose normal. Throat: Pharynx normal. Neck: Normal inspection. Neck supple. CVS: Tachycardia. Heart sounds normal. Respiratory: No respiratory distress. Breath sounds normal. Abdomen: Abdomen soft and nontender. Back: Normal inspection. No CVA tenderness. Skin: Normal skin color. Skin warm and dry. No rash. Extremities: Extremities exhibit normal ROM. No pedal edema. Neuro: Oriented X 3. No motor deficit. No sensory deficit. LABS, X-RAYS, AND EKG CT Head: Normal study. CBC: WBC- normal. Segs- normal. Hgb- normal. HCT- normal. Platelets- normal. Microbiology: Blood culture x2 ordered. (pending). PROGRESS AND PROCEDURES E.D. Course: pt feeling much better after meds ED Attending on duty and available for supervision: Etienne Shelton. Disposition: Discharged home. Condition: good and stable. CLINICAL IMPRESSION Acute right otalgia. INSTRUCTIONS Take Tylenol (Acetaminophen) or Motrin (Ibuprofen) as needed for fever control. Take medication according to label instructions. plenty of fluids. Warnings: GENERAL WARNINGS: Return or contact your physician immediately if your condition worsens or changesunexpectedly, if not improving asexpected, or if other problems arise (fever, feeling worse). Specifically, return if pain persists or worsens. Prescription Medications: Vicodin 5 mg: take 1-2 orallyevery 4 hours as needed for pain. Dispense twenty (20). No refill. Generic substitute OK. OTC Medications: Take acetaminophen (Tylenol, Datril, etc.) and ibuprofen (Advil, Nuprin, etc.) according to label instructions. Follow-up: ISELA WINTER MD, , [facility], [address], [place], [address] Follow up Tuesday if not better. Jennifer Gardiner (Electronically signed Jennifer Gardiner 06/06/2004 6:14) Physician's Clinical Report Emergency Department ??? Nursing Summary Registration Date/Time 06/05/2004 23:56 TRIAGE Initial Assessment Acuity: LEVEL 4. BP: 144 / 90 HR: 137 RR: 36 Temp: 38.4 tympanic Alert. --00:02 Cassy Kyle R.N. Medications Atenolol. Flonase Nasal [place]. (Neomycin ear drops started today). (Tapazol). --00:02 Cassy Kyle R.N. Allergies PENICILLIN- uncertain as to what symptoms developed. SULFA DRUGS- symptoms consisted of rash and shortness of breath. --00:02 Cassy Kyle R.N. History Chief Complaint: LEFT EAR PAIN. (about 5 days ago). Pain level now: 10/10. Reports fever and muscle aches. The patient has had nausea. 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 Recently seen in the office; seen for similar symptoms; treatment- other medication. PAST HX: Supraventricular tachycardia. Grave's disease. SOCIAL HX: Nonsmoker. Denies alcohol use. 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 Arrived by private vehicle. Historian: patient. --00:02 Cassy Kyle R.N. NURSING PROGRESS NOTES Progress Patient gowned. Call light placed in reach. Side rails up x 1. Bed placed in lowest position. Brakes of bed on. Patient ready for evaluation. --00:09 Cassy Kyle R.N. (VICODIN 2 Tablets PO given at 0110). --01:18 Pauline Patrick R.N. (VICODIN starter pack (5 Tablets) dispensed to patient at 0110). --01:19 Pauline Patrick R.N. IBUPROFEN 600 mg Given at 0110 PO. --01:19 Pauline Patrick R.N. (Scanned for other medication at 0109.). --01:20 Pauline Patrick R.N. Patient returned from CT by stretcher. --02:12 Irina Hernández R.N. (pt feeling better after vicodin). Patient reports current pain level as 2/10. Overall patient status is improved- the patient states feels better. --02:12 Irina Hernández R.N. (pt offered IV pain medication pt declined at this time). --02:13 Irina Hernández R.N. IV start unsuccessful, #1 site, left antecubital space, 20g angiocath, using aseptic technique, with good blood return; one attempt. Saline lock placed; flushed with 5 cc saline. --02:40 Fanelie Plessl, E.M.T. Blood samples drawn by tech: blood culture (2nd set); total amount drawn was 20 cc. (First blood sample drawn from left AC, amount drawn 20 cc, second blood culture sample drawn from right AC, drawn 20cc. Both sites used 20 gauge needle. Sent to lab as well maria g tap and [place] tap. ). --02:43 Fanda Plessl, E.M.T. BP: 125 / 82 lying R arm auto HR: 77 regular RR: 16 (IV line removed from left AC.). --03:48 Fanda Plessl, E.M.T. AURALGAN 4 drops to the right ear. (sudafed 60 mg p.o.). --03:50 Nara Malin R.N. DISPOSITION / DISCHARGE Patient reports pain level on departure as 3/10. Condition at departure: improved. No barriers to learning present. Reviewed medication; prescription (s) given to the patient (vicodin). Patient verbalized understanding. The patient was accompanied by manager subway. The patient left the Emergency Department ambulatory. --03:50 Ector Ferguson R.N., R.N. Kellie Klus R.N. Fanda Plessl, E.M.T. Joan Carson R.N. at 06/06/2004 3:59 by Nara Malin R.N. documented in this encounter Plan of Treatment Not on file documented as of this encounter Visit Diagnoses Not on filedocumented in this encounter Care Teams Vessel Scrapper Helper Relationship Specialty Start Date End Date Isela Winter MD PCP - General 04/08/09 03/15/19 documented as of this encounter
--- OUTSIDE RECORDS SUMMARY | 2024-05-24 15:31 | XMS_ITS | Encounter Summary ---
Author Organization [facility] Address [address] [place] [address] Care Team Providers Care Parts Processor Name Role Phone Unavailable Primary Care Provider Unavailabl e Encounter Details Date Type Department Care Team (Late st Contact Info) Description 03/24/2004 14:16 EDT Hospital Encounter [facility] - Other [address] [place] [address] Leida Cerda PA-C [address] [place] [id number] Social History Tobacco Use Types Packs/Day Years Used Date Smoking Tobacco: Never Smokeless Tobacco: Never Alcohol Use Standard Drinks/Week Comments No 0 (1 standard drink = 0.6 oz pur e alcohol) [facility] Utilities Answer Date Recorded In the past 12 months has [employer], gas, oil, or water company threatened [...] place to sleep or slept in a assisted (including now)? No 10/28/2023 Interpersonal Safety Answer [...] Name Priority Date/Time Associated Diagnosis Comments CT RENAL COLIC WO CONTRAST Routine 04/19/2004 6:25 EDT CYTOPATHOLOGY Routine 03/24/2004 0:00 EDT documented in this encounter Results * CT RENAL COLIC (04/19/2004 6:25 EDT) Anatomical Region Laterality Modality Other 04/19/2004 6:25 EDT Impressions 06/23/2009 11:17 EDT IMPRESSION: 1. No stones are identified, but there is mild perinephric and periureteral stranding with minimal dilatation of the right renal collecting system and proximal ureter. Differential diagnosis includes recently passed stone or inflammation or stricture from other causes. Consider additional evaluation if symptoms persist. 2. Cholelithiasis with no CT evidence of cholecystitis or biliary dilatation. 3. The findings were discussed with the emergency department at the time of interpretation by Dr. Hester. /gui Narrative 06/23/2009 11:17 EDT RT. SIDE PAIN, R/O STONES RENAL COLIC CT 04/19/04 CLINICAL HISTORY: Right-sided pain TECHNIQUE: Using neither oral nor intravenous contrast material, 5mm sections were made from just above the kidneys through the urinary bladder. FINDINGS: The visualized lung bases are clear. The visualized unenhanced liver, spleen, pancreas and adrenal glands are unremarkable. Several stones are identified within the gallbladder without obvious biliary dilatation. The left kidney is unremarkable. On the right side there is perinephric stranding, especially around the inferior aspect of the kidney. The right collecting system is mildly distended, as is the proximal right ureter. There may be minimal periureteral stranding on the right side as well. At the level of the sacrum, the right ureter is normal caliber. There is no evidence of renal, ureteral or urinary bladder calculus. The uterus and ovaries are normal for age. Unopacified loops of bowel are unremarkable. Small groin lymph nodes are seen bilaterally, but there is no pathologic lymphadenopathy in the abdomen or pelvis. No bony abnormality is seen. Procedure Note Elayne Ruano MD - 06/23/2009 RT. SIDE PAIN, R/O STONES RENAL COLIC CT 04/19/04 CLINICAL HISTORY: Right-sided pain TECHNIQUE: Using neither oral nor intravenous contrast material, 5mm sections were made from just above the kidneys through the urinary bladder. FINDINGS: The visualized lung bases are clear. The visualized unenhanced liver, spleen, pancreas and adrenal glands are unremarkable. Several stones are identified within the gallbladder without obvious biliary dilatation. The left kidney is unremarkable. On the right side there is perinephric stranding, especially around the inferior aspect of the kidney. The right collecting system is mildly distended, as is the proximal right ureter. There may be minimal periureteral stranding on the right side as well. At the level of the sacrum, the right ureter is normal caliber. There is no evidence of renal, ureteral or urinary bladder calculus. The uterus and ovaries are normal for age. Unopacified loops of bowel are unremarkable. Small groin lymph nodes are seen bilaterally, but there is no pathologic lymphadenopathy in the abdomen or pelvis. No bony abnormality is seen. IMPRESSION IMPRESSION: 1. No stones are identified, but there is mild perinephric and periureteral stranding with minimal dilatation of the right renal collecting system and proximal ureter. Differential diagnosis includes recently passed stone or inflammation or stricture from other causes. Consider additional evaluation if symptoms persist. 2. Cholelithiasis with no CT evidence of cholecystitis or biliary dilatation. 3. The findings were discussed with the emergency department at the time of interpretation by Dr. Hester. /gui Richard Fajardo MD IMG CT ORDERABLES * CYTOPATHOLOGY (03/24/2004 0:00 EDT) Pathology Report: CYTOPATHOLOGY REPORT Reports generated via electronic interface contain original data; however they are lacking the format of the original report. Caution should be taken when reading/interpreti ng unformatted reports. Name: ? MADHU DORIS R ? Accession #: ? [id number] : ? 1980 (Age: 24) ??F ?Collect Date: ? 03/24/2004 Location: ? [facility] ? Receive Date: ? 03/25/2004 Provider: ?LEIDA ARAUJO Copy to: ?SHANTANU JERONIMO FLOREZ ? Specimen/Source: ?ThinPrep Pap Test, Cervix/Endocervix Last Menstrual Period: ? 02/25/04 ? SPECIMEN ADEQUACY ? Satisfactory for Evaluation - transformation zone component present GENERAL CATEGORIZATION ? Negative for Intraepithelial Lesion or Malignancy ? Document reviewed and electronically signed by: ? Jessica Sandoval, CT(ASCP)(IAC) ? Report Date: ??03/30/2004 09:44 End of Report GREYSON JOHNSON 03/24/2004 03/25/2004 Leida Cerda PA-C PATHOLOGY O RDERABLES Performing Organization Address City/State/[facility] Co de Phone Number GREYSON JOHNSON [address] [place] [address] documented in this encounter Visit Diagnoses Not on filedocumented in this encounter
--- OUTSIDE RECORDS SUMMARY | 2024-05-24 15:32 | XMS_ITS | Encounter Summary ---
Author Organization [facility] Address [address] [place] [address] Care Team Providers Care Senior Portfolio Manager Name Role Phone Unavailable Primary Care Provider Unavailabl e Encounter Details Date Type Department Care Team (Late st Contact Info) Description 09/22/2000 10:27 EST Hospital Encounter [facility] - Other [address] [place] [address] Audrey Rausch MD [address] [place] [address], [address] [place] [address] Unknown, Provider, Social History Tobacco Use Types Packs/Day Years Used Date Smoking Tobacco: Never Smokeless Tobacco: Never Alcohol Use Standard Drinks/Week Comments No 0 (1 standard drink = 0.6 oz pur e alcohol) [facility] Utilities Answer Date Recorded In the past 12 months has [employer], gas, oil, or water [employer] threatened to shut off services in your home? No 10/28/2023 AUDIT-C Answer Date Recorded Q1: How often do you have a drink containing alc ohol? Never 10/28/2023 Average Number of Drinks Not on file 024 Frequency of Binge Drinking Not on file 10/10 Overall Financial Resource Strain (CARDIA) Julienne r Date Recorded How hard is it [...] Priority Date/Time Associated Diagnosis Comments CYTOPATHOLOGY Routine 09/22/2000 0:00 EST documented in this encounter Results * CYTOPATHOLOGY (09/22/2000 0:00 EST) Pathology Report: CYTOPATHOLOGY REPORT Reports generated via electronic interface contain original data; however they are lacking the format of the original report. Caution should be taken when reading/interpreti ng unformatted reports. Name: ? DORIS KERR ? Accession #: ? [id number] : ? 1980 (Age: 20) ??F ?Collect Date: ? 09/22/2000 Location: ? [facility] ? Receive Date: ? 09/23/2000 Provider: ?AUDREY RAUSCH MD Copy to: ? Specimen/Source: ?ThinPrep Pap Test, Cervix/Endocervix Last Menstrual Period: ? 09/21/00 Hormonal/Contracep tive Status: ? Oral contraceptives Previous Gynecologic Pathology: ? LSIL: VAIN: ASC-US: favor reactive Treatment History: ? Colposcopy: ? SPECIMEN ADEQUACY ? Satisfactory for evaluation. GENERAL CATEGORIZATION ? Epithelial Cell Abnormality DESCRIPTIVE DIAGNOSIS ? Atypical squamous cells of undetermined significance (ASCUS), favor reactive process. RECOMMENDATION ? Recommend repeat Pap test in 3-6 months or further follow up, as clinically indicated. ? Document reviewed and electronically signed by: ? SHAYE LYNN MD [facility] ? Report Date: ??10/07/2000 17:22 End of Report [facility] 09/22/2000 09/23/2000 Audrey Rausch MD PATHOLOGY ORDERABL ES [facility] [address] [place] [address] documented in this encounter Visit Diagnoses Not on filedocumented in this encounter
--- OUTSIDE RECORDS SUMMARY | 2024-05-24 15:32 | XMS_ITS | Encounter Summary ---
Author Organization [facility] Address [address] [place] [address] Care Team Providers Care Skirt Panel Assembler Name Role Phone Unavailable Primary Care Provider Unavailabl e Encounter Details Date Type Department Care Team (Late st Contact Info) Description 10/04/2000 15:03 [facility] Hospital Encounter [facility] - Other [address] [place] [address] Wyatt Sousa PA Unknown, Provider, Social History Tobacco Use Types Packs/Day Years Used Date Smoking Tobacco: Never Smokeless Tobacco: Never Alcohol Use Standard Drinks/Week Comments No 0 (1 standard drink = 0.6 oz pur e alcohol) [facility] Utilities Answer Date Recorded In the [...] the money to buy more. Never true 01/19/20 24 Within the past 12 months, t [...] place to sleep or slept in a jail (including now)? No 10/28/2023 Interpersonal Safety Answer [...] Procedure Name Priority Date/Time Associated Diagnosis Comments HEMAGRAM & DIFF Routine 10/04/2000 13:00 EST BACTERIAL CULTURE, URINE Routine 10/04/2000 13:00 EST BASIC METABOLIC PANEL (BMP) Routine 10/04/2000 13:00 EST documented in this encounter Results * (ABNORMAL) HEMAGRAM & DIFF (10/04/2000 13:00 EST) WBC 16.42(H) 4.0 - 12.4 K/cmm [facility] RBC 4.43 3.86 - 5.04 M/cmm [facility] Hemoglobin 12.2 11.6 - 15.2 gm/dl [facility] HCT 35.9 34.9 - 44.4 % [facility] MCV 81 81 - 98 fl [facility] MCH 27.4 26.7 - 33.3 pg [facility] MCHC 33.9 32.1 - 35.9 gm/dl [facility] PLT 209 141 - 320 K/cmm [facility] RDW-CV 13.4 11.7 - 14.6 % [facility] Neutrophils 77 45.5 - 79.7 % [facility] % Bands 4 % [facility] Lymphocytes 10(L) 15.0 - 46.8 % [facility] % Atyp Lymphs 2 % [facility] Monocytes 6 1.8 - 12.0 % [facility] Eosinophils 1 0.6 - 6.9 % [facility] ABS Neutrophils 12.64(H) 2.20 - 8.85 K/cmm [facility] ABS Bands 0.66 K/cmm [facility] ABS Lymphs 1.64 1.09 - 3.30 K/cmm [facility] ABS Atyp Lymphs 0.33 K/cmm [facility] ABS Monocytes 0.99(H) 0.1 - 0.8 K/cmm [facility] ABS Eosinophils 0.16 0.03 - 0.61 K/cmm [facility] RBC Morphology 1+ Poikilocytosis [facility] WBC Morphology 1+ Toxic granulation 1+ Vacuolization [facility] Type of Diff: Manual [facility] 10/04/2000 13:0 0 EST 10/04/2000 17:15 EST Provider Unknown HISTORICAL LAB FOR S Q LOAD [facility] [address] [place] [address] * (ABNORMAL) BASIC METABOLIC PANEL (10/04/2000 13:00 EST) Sodium 135(L) 136 - 145 mEq/L [facility] Potassium 3.8 3.5 - 5.0 mEq/L [facility] Chloride 100 96 - 110 mEq/L [facility] CO2 24 24 - 30 mEq/L [facility] BUN 8(L) 10 - 26 mg/dl [facility] Creatinine 0.7 0.7 - 1.5 mg/dl [facility] Calcium 8.7 8.5 - 10.5 mg/dl [facility] Calculated Calcium 9.9 8.5 - 10.5 mg/dl [facility] Glucose, Serum 96 70 - 110 mg/dl [facility] 10/04/2000 13:0 0 EST 10/04/2000 17:15 EST Provider Unknown CHEMISTRY & BLOOD GA S ORDERABLES Performing Organization Address [facility] Co de Phone Number [facility] [address] [place] [address] * BACTERIAL CULTURE, URINE (10/04/2000 13:00 EST) Specimen Description Urine [facility] Result Greater than 100,000 CFU/ml ESCHERICHIA COLI [facility] Report Status Final [id number] [facility] 10/04/2000 13:0 0 EST 10/04/2000 16:33 EST Narrative Organism Antibiotic Method Susceptibility Greater than 100,000 cfu/ml escherichia coli Ampicillin SUSCEPTIBILITY (SAÚL) >=32 Resistant Greater than 100,000 cfu/ml escherichia coli Cefazolin SUSCEPTIBILITY (SAÚL) <=8 Susceptible Greater than 100,000 cfu/ml escherichia coli Gentamicin SUSCEPTIBILITY (SAÚL) <=0.5 Susceptible Greater than 100,000 cfu/ml escherichia coli Trimethoprim-Sulfametho xazole SUSCEPTIBILITY (SALÚ) >=16/304 Resistant Greater than 100,000 cfu/ml escherichia coli Nitrofurantoin SUSCEPTIBILITY (SAÚL) <=32 Susceptible Greater than 100,000 cfu/ml escherichia coli Tobramycin SUSCEPTIBILITY (SAÚL) <=0.5 Susceptible Greater than 100,000 cfu/ml escherichia coli Amikacin SUSCEPTIBILITY (SAÚL) <=2 Susceptible Greater than 100,000 cfu/ml escherichia coli Imipenem SUSCEPTIBILITY (SAÚL) <=4 Susceptible Greater than 100,000 cfu/ml escherichia coli Piperacillin SUSCEPTIBILITY (SAÚL) >=256 Resistant Greater than 100,000 cfu/ml escherichia coli Ciprofloxacin SUSCEPTIBILITY (SAÚL) <=0.5 Susceptible Provider Unknown MICROBIOLOGY - GENER AL ORDERABLES Performing Organization Address City/[facility] Co de Phone Number [facility] [address] [place] [address] documented in this encounter Visit Diagnoses Not on filedocumented in this encounter
--- OUTSIDE RECORDS SUMMARY | 2024-05-24 15:32 | XMS_ITS | Encounter Summary ---
Author Organization [facility] Address [address] [place] [address] Care Team Providers Care Sheriff'S Officer Name Role Phone Unavailable Primary Care Provider Unavailabl e Encounter Details Date Type Department Care Team (Late st Contact Info) Description 02/12/2003 14:53 EDT Hospital Encounter [facility] - Other [address] [place] [address] Leida Cerda PA-C [address] [place] [address] [address] [place] [address] Social History Tobacco Use Types Packs/Day Years Used Date Smoking Tobacco: Never Smokeless Tobacco: Never Alcohol Use Standard Drinks/Week Comments No 0 (1 standard drink = 0.6 oz pur e alcohol) [facility] Utilities Answer Date Recorded In the past 12 months has [employer] electric, gas, oil, or water company threatened [...] place to sleep or slept in a prison (including now)? No 10/28/2023 Interpersonal Safety Answer [...]
--- OUTSIDE RECORDS SUMMARY | 2024-05-24 15:32 | XMS_ITS | Encounter Summary ---
Author Organization [facility] Address [address] [place] [address] Care Team Providers Care Glass Beveler Name Role Phone Unavailable Primary Care Provider Unavailabl e Encounter Details Date Type Department Care Team (Late st Contact Info) Description 04/16/2003 11:10 EDT Hospital Encounter [facility] [address] [place] [address] Pete Richey MD Social History Tobacco Use Types Packs/Day Years Used Date Smoking Tobacco: Never Smokeless Tobacco: Never Alcohol Use Standard Drinks/Week Comments No 0 (1 standard drink = 0.6 oz pur e alcohol) [facility] Utilities Answer Date Recorded In the past 12 months has [employer] electric, gas, oil, or water company threatened [...]
--- OUTSIDE RECORDS SUMMARY | 2024-05-24 15:32 | XMS_ITS | Encounter Summary ---
Author Organization [facility] Address [address] [place] [address] Care Team Providers Care Storm Chaser Name Role Phone Unavailable Primary Care Provider Unavailabl e Encounter Details Date Type Department Care Team (Late st Contact Info) Description 02/19/2003 12:54 EDT Hospital Encounter [facility] - Other [address] [place] [address] Leida Cerda PA-C [address] [place] [address] [address] [place] [address] Discharge Disposition: Auto Discharge Social History Tobacco [...]
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
--- OUTSIDE RECORDS SUMMARY | 2024-05-24 15:32 | XMS_ITS | Encounter Summary ---
Author Organization [facility] Address [address] [place] [address] Care Team Providers Care Data Manager Name Role Phone Unavailable Primary Care Provider Unavailabl e Encounter Details Date Type Department Care Team (Late st Contact Info) Description 04/06/2003 15:13 EDT Hospital Encounter [address] [address] Anahy Vazquez MD [address] [place] [address] Social History Tobacco Use Types Packs/Day Years [...] Comments COMPLETE BLOOD COUNT AND DIFFERENTIAL Routine 04/06/2003 15:14 EDT documented in this encounter Results * HEMAGRAM AND DIFFERENTIAL (04/06/2003 15:14 EDT) WBC 6.43 4.0 - 12.4 K/cmm [facility] RBC 4.76 3.86 - 5.04 M/cmm [facility] Hemoglobin 13.1 11.6 - 15.2 gm/dl [facility] HCT 38.8 34.9 - 44.4 % [facility] MCV 82 81 - 98 fl [facility] MCH 27.6 26.7 - 33.3 pg [facility] MCHC 33.8 32.1 - 35.9 gm/dl [facility] PLT 217 141 - 320 K/cmm [facility] RDW-CV 13.5 11.7 - 14.6 % [facility] % Neutrophils 59.2 45.5 - 79.7 % [facility] % Lymphocytes 29.5 15.0 - 46.8 % [facility] % Monocytes 8.2 1.8 - 12.0 % [facility] % Eosinophils 2.8 0.6 - 6.9 % [facility] % Basophils 0.3 0.2 - 1.4 % [facility] ABS Neutrophils 3.81 2.20 - 8.85 K/cmm [facility] ABS Lymphs 1.90 1.09 - 3.30 K/cmm [facility] ABS Monocytes 0.53 0.1 - 0.8 K/cmm [facility] ABS Eosinophils 0.18 0.03 - 0.61 K/cmm [facility] ABS Basophils 0.02 0.01 - 0.11 K/cmm [facility] Type of Diff: Automated [facility] 04/06/2003 15:1 4 EDT 04/06/2003 15:16 EDT Anahy Vazquez MD PACKAGES & DNA PROB E ORDERABLES Performing Organization Address City/State/[facility] Co de Phone Number [facility] [address] [place] [address] documented in this encounter Visit Diagnoses Not on filedocumented in this encounter
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
--- OUTSIDE RECORDS SUMMARY | 2024-05-24 15:32 | XMS_ITS | Encounter Summary ---
Author Organization [facility] Address [address] [place] [address] Care Team Providers Care Photography Colorist Name Role Phone Unavailable Primary Care Provider Unavailabl e Encounter Details Date Type Department Care Team (Latest Contact Info) Description 04/02/2003 16:52 EDT Hospital Encounter [facility] - Other [address] [place] [address] Shannan Winter MD Discharge Disposition: Auto Discharge Social History [...] Priority Date/Time Associated Diagnosis Comments CYTOPATHOLOGY Routine 04/02/2003 0:00 EDT documented in this encounter Results * CYTOPATHOLOGY (04/02/2003 0:00 EDT) Pathology Report: CYTOPATHOLOGY REPORT Reports generated via electronic interface contain original data; however they are lacking the format of the original report. Caution should be taken when reading/interpreti ng unformatted reports. Name: ? ANUSHKASophia DORIS Mykel ? Accession #: ? [id number] : ? 1980 (Age: 23) ??F ?Collect Date: ? 04/02/2003 Location: ? [facility] ? Receive Date: ? 04/03/2003 Provider: ?SHANNAN WINTER MD Copy to: ? Specimen/Source: ?ThinPrep Pap Test, Cervix/Endocervix Last Menstrual Period: ? 03/28/03 Hormonal/Contracep tive Status: ? Oral contraceptives Previous Gynecologic Pathology: ? MIGUEL: 2001 Treatment History: ? Colposcopy: 2001 ? SPECIMEN ADEQUACY ? Satisfactory for Evaluation - transformation zone component present GENERAL CATEGORIZATION ? Negative for Intraepithelial Lesion or Malignancy ? Document reviewed and electronically signed by: ? GEORGI Lombardi(ASCP) ? Report Date: ??04/08/2003 11:01 End of Report [facility] 04/02/2003 04/03/2003 Shannan Winter MD PATHOLOGY ORDERABLES Performing Organization Address City/State/[facility] Co de Phone Number [facility] [address] [place] [address] documented in this encounter Visit Diagnoses Not on filedocumented in this encounter
--- OUTSIDE RECORDS SUMMARY | 2024-05-24 15:32 | XMS_ITS | Encounter Summary ---
Author Organization [facility] Address [address] [place] [address] Care Team Providers Care Set Illustrator Name Role Phone Unavailable Primary Care Provider Unavailabl e Encounter Details Date Type Department Care Team (Late st Contact Info) Description 01/12/2001 9:06 EDT Hospital Encounter [facility] - Other [address] [place] [address] Audrey Rausch MD [address] [place] [address], [facility] [address] [place] [address] Unknown, Provider, Social History Tobacco Use Types Packs/Day Years Used Date Smoking Tobacco: Never Smokeless Tobacco: Never Alcohol Use Standard Drinks/Week Comments No 0 (1 standard drink = 0.6 oz pur e alcohol) [facility] Utilities Answer Date Recorded In the past 12 months has [employer], gas, oil, or water [employer] threatened to shut off services in your [...] Priority Date/Time Associated Diagnosis Comments CYTOPATHOLOGY Routine 01/12/2001 0:00 EDT documented in this encounter Results * CYTOPATHOLOGY (01/12/2001 0:00 EDT) Pathology Report: CYTOPATHOLOGY REPORT Reports generated via electronic interface contain original data; however they are lacking the format of the original report. Caution should be taken when reading/interpreti ng unformatted reports. Name: ? DORIS KERR ? Accession #: ? [id number] : ? 1980 (Age: 20) ??F ?Collect Date: ? 01/12/2001 Location: ? [facility] ? Receive Date: ? 01/13/2001 Provider: ?AUDREY RAUSCH MD Copy to: ? Specimen/Source: ?ThinPrep Pap Test, Cervix/Endocervix Last Menstrual Period: ? 01/05/01 Previous Gynecologic Pathology: ? LSIL: VAIN: ASC-US: Fav React Treatment History: ? Colposcopy: ? SPECIMEN ADEQUACY ? Satisfactory for evaluation. GENERAL CATEGORIZATION ? Epithelial Cell Abnormality DESCRIPTIVE DIAGNOSIS ? Atypical squamous cells of undetermined significance (ASCUS), see comment. Fungal organisms present morphologically consistent with Cora species. RECOMMENDATION ? Recommend repeat Pap test in 3-6 months or further follow up, as clinically indicated. ? COMMENT ? Very rare ASCUS is present. ? Document reviewed and electronically signed by: ? Sita Lenz MD ? Report Date: ??01/18/2001 13:32 End of Report [facility] 01/12/2001 01/13/2001 Audrey Rausch MD PATHOLOGY ORDERABL ES [facility] [address] [place] [address] documented in this encounter Visit Diagnoses Not on filedocumented in this encounter
--- OUTSIDE RECORDS SUMMARY | 2024-05-24 15:32 | XMS_ITS | Encounter Summary ---
Author Organization [facility] Address [address] [place] [address] Care Team Providers Care Ditcher Name Role Phone Unavailable Primary Care Provider Unavailabl e Encounter Details Date Type Department Care Team (Latest Contact Info) Description 05/06/2003 15:40 EDT Hospital Encounter [facility] Emergency Department - [facility] [address] [place], [place] [address] Emergency, Default, MD Discharge Disposition: Home or [...] Procedure Name Priority Date/Time Associated Diagnosis Comments CHEST PA AND LATERAL Routine 05/06/2003 16:34 EDT documented in this encounter Results * CHEST PA AND LATERAL (05/06/2003 16:34 EDT) Anatomical Region Laterality Modality Other 05/06/2003 16:3 4 EDT Narrative 06/24/2009 5:38 EDT LEFT CHEST PAIN R/O INFILTRATE PA AND LATERAL CHEST 05/06/03, 1630 hours COMPARISON: none FINDING: The lungs are clear and there is no evidence of pleural disease. The cardiac silhouette and pulmonary vascularity are normal and there is no pneumothorax. The skeleton is unremarkable except for pectus deformity. There is no free air under the diaphragms. IMPRESSION: Normal chest. D 05/06/03 T 05/07/03 /emanuel Procedure Note Pawan Massey MD - 06/24/2009 LEFT CHEST PAIN R/O INFILTRATE PA AND LATERAL CHEST 05/06/03, 1630 hours COMPARISON: none FINDING: The lungs are clear and there is no evidence of pleural disease. The cardiac silhouette and pulmonary vascularity are normal and there is no pneumothorax. The skeleton is unremarkable except for pectus deformity. There is no free air under the diaphragms. IMPRESSION: Normal chest. D 05/06/03 T 05/07/03 /emanuel Efe Guerrier MD IMG DIAGNOSTIC IMAG ING ORDERABLES documented in this encounter Visit Diagnoses Not on filedocumented in this encounter
--- OUTSIDE RECORDS SUMMARY | 2024-05-24 15:32 | XMS_ITS | Encounter Summary ---
Author Organization [facility] Address [address] [place] [address] Care Team Providers Care Psychological Assistant Name Role Phone Unavailable Primary Care Provider Unavailabl e Encounter Details Date Type Department Care Team (Latest Contact Info) Description 04/15/2003 14:24 EDT Hospital Encounter [facility] [address] [place] [address] Pete Richey MD Discharge Disposition: Auto Discharge [...] Date/Time Associated Diagnosis Comments T3, TOTAL Routine 04/15/2003 11:55 EDT TSH Routine 04/15/2003 11:55 EDT T4 FREE Routine 04/15/2003 11:55 EDT documented in this encounter Results * (ABNORMAL) TSH (04/15/2003 11:55 EDT) TSH <0.02(L) 0.35 - 5.50 uIU/ml [facility] 04/15/2003 11:5 5 EDT 04/15/2003 17:34 EDT Germain Mason MD CHEMISTRY & BLOOD GA S ORDERABLES Performing Organization Address City/[facility] Co de Phone Number [facility] [address] [place] [address] * (ABNORMAL) T3, TOTAL (04/15/2003 11:55 EDT) T3, Total 302(H) 60 - 181 ng/dl [facility] 04/15/2003 11:5 5 EDT 04/15/2003 17:34 EDT Germain Mason MD CHEMISTRY & BLOOD GA S ORDERABLES Performing Organization Address [facility] Co de Phone Number [facility] [address] [place] [address] * (ABNORMAL) T4 FREE (04/15/2003 11:55 EDT) Free T4 1.9(H) 0.8 - 1.8 ng/dl [facility] 04/15/2003 11:5 5 EDT 04/15/2003 17:34 EDT Germain Mason MD CHEMISTRY & BLOOD GA S ORDERABLES Performing Organization Address City/[facility] Co de Phone Number [facility] [address] [place] [address] documented in this encounter Visit Diagnoses Not on filedocumented in this encounter
--- OUTSIDE RECORDS SUMMARY | 2024-05-24 15:32 | XMS_ITS | Encounter Summary ---
Author Organization [facility] Address [address] [place] [address] Care Team Providers Care Physical Education Teacher Name Role Phone Unavailable Primary Care Provider Unavailabl e Encounter Details Date Type Department Care Team (Latest Contact Info) Description 05/29/2000 2:30 EDT - 06/01/2000 11:59 EDT Hospital Encounter [facility] [address] [place] [address] Ashwin Resendiz MD [address] [place] [address] Shannan Vieyra MD Discharge Disposition: Home or Self Care [...] Priority Date/Time Associated Diagnosis Comments CREATININE Routine 06/01/2000 6:00 EDT HEMAGRAM & DIFF Routine 06/01/2000 6:00 EDT BUN Routine 06/01/2000 6:00 EDT ELECTROLYTES Routine 06/01/2000 6:00 EDT CREATININE Routine 05/31/2000 6:15 EDT HEMAGRAM & DIFF Routine 05/31/2000 6:15 EDT BUN Routine 05/31/2000 6:15 EDT ELECTROLYTES Routine 05/31/2000 6:15 EDT CREATININE Routine 05/30/2000 6:25 EDT HEMAGRAM & DIFF Routine 05/30/2000 6:25 EDT BUN Routine 05/30/2000 6:25 EDT ELECTROLYTES Routine 05/30/2000 6:25 EDT URINE MICROSCOPIC Routine 05/30/2000 0:4 5 EDT URINALYSIS WITH MICROSCOPIC IF POSITIVE Routine 05/30/2000 0:45 EDT BACTERIAL CULTURE, BLOOD Routine 05/30/2000 0:40 EDT BACTERIAL CULTURE, BLOOD Routine 05/30/2000 0:30 EDT TEST, URINE Routine 05/29/2000 14:10 EDT URINE MICROSCOPIC Routine 05/29/2000 14: 09 EDT URINALYSIS WITH MICROSCOPIC IF POSITIVE Routine 05/29/2000 14:09 EDT BACTERIAL CULTURE, URINE Routine 05/29/2000 14:[address] PELVIS WO/CONTRAST Routine 05/29/2000 9:[address] ABDOMEN (LUNG BASES TO ILIAC CREST) WO CONTRAST Routine 05/29/2000 9:09 EDT CREATININE Routine 05/29/2000 6:25 EDT HEMAGRAM & DIFF Routine 05/29/2000 6:25 EDT BUN Routine 05/29/2000 6:25 EDT ELECTROLYTES Routine 05/29/2000 6:25 EDT BACTERIAL CULTURE, BLOOD Routine 05/29/2000 2:15 EDT documented in this encounter Results * (ABNORMAL) ELECTROLYTES (06/01/2000 6:00 EDT) Sodium 136 136 - 145 mEq/L [facility] Potassium 4.0 3.5 - 5.0 mEq/L [facility] Chloride 104 96 - 110 mEq/L [facility] CO2 23(L) 24 - 30 mEq/L [facility] 06/01/2000 6:00 EDT 06/01/2000 7:29 EDT Shannan Vieyra MD CHEMISTRY & BLOOD GA S ORDERABLES Performing Organization Address [facility] de Phone Number [facility] [address] [place] [address] * (ABNORMAL) CREATININE (06/01/2000 6:00 EDT) Creatinine 0.6(L) 0.7 - 1.5 mg/dl [facility] 06/01/2000 6:00 EDT 06/01/2000 7:29 EDT Shannan Vieyra MD HISTORICAL LAB FOR S Q LOAD Performing Organization Address [facility] de Phone Number [facility] [address] [place] [address] * (ABNORMAL) HEMAGRAM & DIFF (06/01/2000 6:00 EDT) WBC 3.06(L) 4.0 - 12.4 K/cmm [facility] RBC 4.05 3.86 - 5.04 M/cmm [facility] Hemoglobin 10.8(L) 11.6 - 15.2 gm/dl [facility] HCT 32.1(L) 34.9 - 44.4 % [facility] MCV 79(L) 81 - 98 fl [facility] MCH 26.6(L) 26.7 - 33.3 pg [facility] MCHC 33.6 32.1 - 35.9 gm/dl [facility] PLT 180 141 - 320 K/cmm [facility] RDW-CV 12.4 11.7 - 14.6 % [facility] Neutrophils 39(L) 45.5 - 79.7 % [facility] % Bands 1 % [facility] Lymphocytes 42 15.0 - 46.8 % [facility] % Atyp Lymphs 2 % [facility] Monocytes 10 1.8 - 12.0 % [facility] Eosinophils 6 0.6 - 6.9 % [facility] ABS Neutrophils 1.19(L) 2.20 - 8.85 K/cmm [facility] ABS Bands 0.03 K/cmm [facility] ABS Lymphs 1.29 1.09 - 3.30 K/cmm [facility] ABS Atyp Lymphs 0.06 K/cmm [facility] ABS Monocytes 0.31 0.1 - 0.8 K/cmm [facility] ABS Eosinophils 0.18 0.03 - 0.61 K/cmm [facility] RBC Morphology 1+ Anisocytosis 1+ Ovalocytes 2+ Microcytes 1+ Hypochromia [facility] Type of Diff: Manual [facility] 06/01/2000 6:00 EDT 06/01/2000 7:29 EDT Shannan Vieyra MD HISTORICAL LAB FOR S Q LOAD [facility] [address] [place] [address] * (ABNORMAL) BUN (06/01/2000 6:00 EDT) BUN 3(L) 10 - 26 mg/dl [facility] 06/01/2000 6:00 EDT 06/01/2000 7:29 EDT Shannan Vieyra MD CHEMISTRY & BLOOD GA S ORDERABLES Performing Organization Address [facility] de Phone Number [facility] [address] [place] [address] * (ABNORMAL) ELECTROLYTES (05/31/2000 6:15 EDT) Sodium 137 136 - 145 mEq/L [facility] Potassium 3.6 3.5 - 5.0 mEq/L [facility] Chloride 106 96 - 110 mEq/L [facility] CO2 23(L) 24 - 30 mEq/L [facility] 05/31/2000 6:15 EDT 05/31/2000 7:20 EDT Shannan Vieyra MD CHEMISTRY & BLOOD IN S ORDERABLES Performing Organization Address [facility] de Phone Number [facility] [address] [place] [address] * (ABNORMAL) CREATININE (05/31/2000 6:15 EDT) Pathologist [facility] Creatinine 0.6(L) 0.7 - 1.5 mg/dl [facility] 05/31/2000 6:15 EDT 05/31/2000 7:20 EDT Shannan Vieyra MD HISTORICAL LAB FOR S Q LOAD Performing Organization Address [facility] de Phone Number [facility] [address] [place] [address] * (ABNORMAL) HEMAGRAM & DIFF (05/31/2000 6:15 EDT) WBC 3.82(L) 4.0 - 12.4 K/cmm [facility] RBC 3.86 3.86 - 5.04 M/cmm [facility] Hemoglobin 10.3(L) 11.6 - 15.2 gm/dl [facility] HCT 31.0(L) 34.9 - 44.4 % [facility] MCV 80(L) 81 - 98 fl [facility] MCH 26.7 26.7 - 33.3 pg [facility] MCHC 33.4 32.1 - 35.9 gm/dl [facility] PLT 152 141 - 320 K/cmm [facility] RDW-CV 12.3 11.7 - 14.6 % [facility] % Neutrophils 41.1(L) 45.5 - 79.7 % [facility] % Lymphocytes 40.3 15.0 - 46.8 % [facility] % Monocytes 13.0(H) 1.8 - 12.0 % [facility] % Eosinophils 5.1 0.6 - 6.9 % [facility] % Basophils 0.5 0.2 - 1.4 % [facility] ABS Neutrophils 1.57(L) 2.20 - 8.85 K/cmm [facility] ABS Lymphs 1.54 1.09 - 3.30 K/cmm [facility] ABS Monocytes 0.50 0.1 - 0.8 K/cmm [facility] ABS Eosinophils 0.19 0.03 - 0.61 K/cmm [facility] ABS Basophils 0.02 0.01 - 0.11 K/cmm [facility] Type of Diff: Automated [facility] 05/31/2000 6:15 EDT 05/31/2000 7:20 EDT Shannan Vieyra MD HISTORICAL LAB FOR S Q LOAD Performing Organization Address City/[facility] Co de Phone Number [facility] [address] [place] [address] * (ABNORMAL) BUN (05/31/2000 6:15 EDT) BUN 3(L) 10 - 26 mg/dl [facility] 05/31/2000 6:15 EDT 05/31/2000 7:20 EDT Shannan Vieyra MD CHEMISTRY & BLOOD GA S ORDERABLES Performing Organization Address [facility]/ZIP Co de Phone Number [facility] [address] [place] [address] * (ABNORMAL) ELECTROLYTES (05/30/2000 6:25 EDT) Sodium 139 136 - 145 mEq/L [facility] Potassium 4.0 3.5 - 5.0 mEq/L [facility] Chloride 111(H) 96 - 110 mEq/L [facility] CO2 22(L) 24 - 30 mEq/L [facility] 05/30/2000 6:25 EDT 05/30/2000 7:48 EDT Shannan Vieyra MD CHEMISTRY & BLOOD GA S ORDERABLES Performing Organization Address [facility] de Phone Number [facility] [address] [place] [address] * (ABNORMAL) CREATININE (05/30/2000 6:25 EDT) Pathologist [facility] Creatinine 0.6(L) 0.7 - 1.5 mg/dl [facility] 05/30/2000 6:25 EDT 05/30/2000 7:48 EDT Shannan Vieyra MD HISTORICAL LAB FOR S Q LOAD Performing Organization Address [facility] de Phone Number [facility] [address] [place] [address] * (ABNORMAL) HEMAGRAM & DIFF (05/30/2000 6:25 EDT) WBC 4.60 4.0 - 12.4 K/cmm [facility] RBC 3.79(L) 3.86 - 5.04 M/cmm [facility] Hemoglobin 10.3(L) 11.6 - 15.2 gm/dl [facility] HCT 30.3(L) 34.9 - 44.4 % [facility] MCV 80(L) 81 - 98 fl [facility] MCH 27.2 26.7 - 33.3 pg [facility] MCHC 34.0 32.1 - 35.9 gm/dl [facility] PLT 126(L) 141 - 320 K/cmm [facility] RDW-CV 12.5 11.7 - 14.6 % [facility] % Neutrophils 41.1(L) 45.5 - 79.7 % [facility] % Lymphocytes 43.2 15.0 - 46.8 % [facility] % Monocytes 12.2(H) 1.8 - 12.0 % [facility] % Eosinophils 3.2 0.6 - 6.9 % [facility] % Basophils 0.3 0.2 - 1.4 % [facility] ABS Neutrophils 1.89(L) 2.20 - 8.85 K/cmm [facility] ABS Lymphs 1.99 1.09 - 3.30 K/cmm [facility] ABS Monocytes 0.56 0.1 - 0.8 K/cmm [facility] ABS Eosinophils 0.15 0.03 - 0.61 K/cmm [facility] ABS Basophils 0.01 0.01 - 0.11 K/cmm [facility] Type of Diff: Automated [facility] 05/30/2000 6:25 EDT 05/30/2000 7:48 EDT Shannan Vieyra MD HISTORICAL LAB FOR S Q LOAD [facility] [address] [place] [address] * (ABNORMAL) BUN (05/30/2000 6:25 EDT) Pathologist [facility] BUN 2(L) 10 - 26 mg/dl [facility] 05/30/2000 6:25 EDT 05/30/2000 7:48 EDT Shannan Vieyra MD CHEMISTRY & BLOOD GA S ORDERABLES [facility] [address] [place] [address] * (ABNORMAL) URINE MICROSCOPIC (05/30/2000 0:45 EDT) Pathologist [facility] WBC, UA 1 to 5 0 - 5 /HPF [facility] RBC, UA less than 1 0 - 5 /HPF [facility] Squam Epithel, UA Few(A) NS /HPF [facility] Renal Epithel, UA None seen NS /HPF [facility] Bacteria, UA Few(A) NS /HPF [facility] Crystals, UA None seen /HPF [facility] Hyaline Casts, UA None seen /LPF [facility] UA Comment Microscopic results are unreliable on urines unrefrig >2hrs or refrig >8hrs. [facility] 05/30/2000 0:45 EDT 05/30/2000 2:22 EDT Shannan Vieyra MD URINALYSIS ORDERABLE S Performing Organization Address [facility] de Phone Number [facility] [address] [place] [address] * (ABNORMAL) URINALYSIS (05/30/2000 0:45 EDT) Color, UA Yellow [facility] Clarity, UA Clear [facility] Glucose, UA Norm NORM [facility] Bilirubin, UA Neg NEG [facility] Ketones, UA Neg NEG [facility] Specific Purdy, Urine 1.005 1.005 - 1.02 [facility] Blood, UA Trace(A) NEG [facility] pH, UA 7.0 5.0 - 9.0 [facility] Protein, UA Neg NEG [facility] Urobilinogen, UA Norm NORM mg/dL [facility] Nitrite, UA Neg NEG [facility] Leuk Esterase Neg NEG [facility] 05/30/2000 0:45 EDT 05/30/2000 2:22 EDT Shannan Vieyra MD URINALYSIS ORDERABLE S Performing Organization Address [facility] Co de Phone Number [facility] [address] [place] [address] * BACTERIAL CULTURE, BLOOD (05/30/2000 0:40 EDT) Specimen Description Blood Left Arm [facility] Result No growth [facility] Report Status Final [id number] [facility] 05/30/2000 0:40 EDT 05/30/2000 1:00 EDT Shannan Vieyra MD MICROBIOLOGY - GENER AL ORDERABLES Performing Organization Address [facility] de Phone Number [facility] [address] [place] [address] * BACTERIAL CULTURE, BLOOD (05/30/2000 0:30 EDT) Specimen Description Blood Right Arm [facility] Result No growth [facility] Report Status Final [id number] [facility] 05/30/2000 0:30 EDT 05/30/2000 1:00 EDT Shannan Vieyra MD MICROBIOLOGY - GENER AL ORDERABLES Performing Organization Address [facility] Phone Number [facility] [address] [place] [address] * TEST, URINE (05/29/2000 14:10 EDT) Result-Pregnanc y Test, Ur Neg [facility] Specific Purdy 1.005 [facility] 05/29/2000 14:1 0 EDT 05/29/2000 14:10 EDT Shannan Vieyra MD URINALYSIS ORDERABLE S Performing Organization Address [facility] de Phone Number [facility] [address] [place] [address] * BACTERIAL CULTURE, URINE (05/29/2000 14:09 EDT) Specimen Description Urine [facility] Result No growth [facility] Report Status Final [id number] [facility] 05/29/2000 14:0 9 EDT 05/29/2000 14:09 EDT Shannan Vieyra MD MICROBIOLOGY - GENER AL ORDERABLES Performing Organization Address [facility] de Phone Number [facility] [address] [place] [address] * (ABNORMAL) URINE MICROSCOPIC (05/29/2000 14:09 EDT) WBC, UA 1 to 5 0 - 5 /HPF [facility] RBC, UA less than 1 0 - 5 /HPF [facility] Squam Epithel, UA Frequent(A) NS /HPF [facility] Renal Epithel, UA None seen NS /HPF [facility] Bacteria, UA None seen NS /HPF [facility] Crystals, UA None seen /HPF [facility] Hyaline Casts, UA None seen /LPF [facility] UA Comment Microscopic results are unreliable on urines unrefrig >2hrs or refrig >8hrs. [facility] Additional Findings Few transitional epithelial cells. [facility] 05/29/2000 14:0 9 EDT 05/29/2000 14:09 EDT Shannan Vieyra MD URINALYSIS ORDERABLE S Performing Organization Address City/[facility]/ZIP Co de Phone Number [facility] [address] [place] [address] * (ABNORMAL) URINALYSIS (05/29/2000 14:09 EDT) Color, UA Yellow [facility] Clarity, UA Clear [facility] Glucose, UA Norm NORM [facility] Bilirubin, UA Neg NEG [facility] Ketones, UA Neg NEG [facility] Specific Purdy, Urine 1.005 1.005 - 1.02 [facility] Blood, UA Trace(A) NEG [facility] pH, UA 7.0 5.0 - 9.0 [facility] Protein, UA Neg NEG [facility] Urobilinogen, UA Norm NORM mg/dL [facility] Nitrite, UA Neg NEG [facility] Leuk Esterase Neg NEG [facility] 05/29/2000 14:0 9 EDT 05/29/2000 14:09 EDT Shannan Vieyra MD URINALYSIS ORDERABLE S Performing Organization Address City/[facility]/ZIP Co de Phone Number [facility] [address] [place] [address] * CT PELVIS WO/CONTRAST (05/29/2000 9:09 EDT) Anatomical Region Laterality Modality Other 05/29/2000 9:09 EDT Impressions 08/19/2009 18:50 EST IMPRESSION: #1: Subtle indistinctness of the right renal contour which could be secondary to pyelonephritis. No renal stone or hydronephrosis is identified. #2: Multiple small gallstones. These were present on the 04-05-99 study. These findings were called to Dr. Alicia Terry at the completion of the study. The attending radiologist has reviewed the images and concurs with the findings. D: 05-29-00 T: 05-31-00 /am Narrative 08/19/2009 18:50 EST KIDNEY STONE ?? RT. FLANK PAIN ??HEMATURIA 05-29-00 CT OF THE ABDOMEN AND PELVIS WITHOUT CONTRAST: HISTORY: Right flank pain, hematuria, rule out kidney stone. TECHNIQUE: Using neither oral nor intravenous contrast material, 5mm sections were made from just above the kidneys through the urinary bladder. FINDINGS: There is subtle indistinctness of the right renal contour, manifested by minimal increased density in the adjacent fat. No hydronephrosis, renal calcification or calcification along the course of either ureter is identified. There are multiple small gallstones in a nondilated gallbladder. No other abnormality is identified on these noncontrast images. Procedure Note Renaldo Bergeron MD / Michelle Coelho MD - 08/19/2009 KIDNEY STONE RT. FLANK PAIN HEMATURIA 05-29-00 CT OF THE ABDOMEN AND PELVIS WITHOUT CONTRAST: HISTORY: Right flank pain, hematuria, rule out kidney stone. TECHNIQUE: Using neither oral nor intravenous contrast material, 5mm sections were made from just above the kidneys through the urinary bladder. FINDINGS: There is subtle indistinctness of the right renal contour, manifested by minimal increased density in the adjacent fat. No hydronephrosis, renal calcification or calcification along the course of either ureter is identified. There are multiple small gallstones in a nondilated gallbladder. No other abnormality is identified on these noncontrast images. IMPRESSION IMPRESSION: #1: Subtle indistinctness of the right renal contour which could be secondary to pyelonephritis. No renal stone or hydronephrosis is identified. #2: Multiple small gallstones. These were present on the 04-05-99 study. These findings were called to Dr. Alicia Terry at the completion of the study. The attending radiologist has reviewed the images and concurs with the findings. D: 05-29-00 T: 05-31-00 /am Shannan Vieyra MD IMG CT ORDERABLES * CT ABDOMEN WO CONTRAST (05/29/2000 9:09 EDT) Anatomical Region Laterality Modality Other 05/29/2000 9:09 EDT Narrative 08/19/2009 18:50 EST KIDNEY STONE ?? RT. FLANK PAIN ??HEMATURIA Procedure Note Renaldo Bergeron MD / Michelle Coelho MD - 08/19/2009 KIDNEY STONE RT. FLANK PAIN HEMATURIA Shannan Vieyra MD IMG CT ORDERABLES * (ABNORMAL) ELECTROLYTES (05/29/2000 6:25 EDT) Sodium 138 136 - 145 mEq/L [facility] Potassium 3.2(L) 3.5 - 5.0 mEq/L [facility] Comment:Sample retested, res ult confirmed Chloride 110 96 - 110 mEq/L [facility] CO2 22(L) 24 - 30 mEq/L [facility] 05/29/2000 6:25 EDT 05/29/2000 7:35 EDT Shannan Vieyra MD CHEMISTRY & BLOOD GA S ORDERABLES [facility] [address] [place] [address] * (ABNORMAL) CREATININE (05/29/2000 6:25 EDT) Creatinine 0.6(L) 0.7 - 1.5 mg/dl [facility] 05/29/2000 6:25 EDT 05/29/2000 7:35 EDT Shannan Vieyra MD HISTORICAL LAB FOR S Q LOAD [facility] [address] [place] [address] * (ABNORMAL) HEMAGRAM & DIFF (05/29/2000 6:25 EDT) WBC 7.84 4.0 - 12.4 K/cmm [facility] RBC 3.83(L) 3.86 - 5.04 M/cmm [facility] Hemoglobin 10.4(L) 11.6 - 15.2 gm/dl [facility] HCT 30.9(L) 34.9 - 44.4 % [facility] MCV 81 81 - 98 fl [facility] MCH 27.2 26.7 - 33.3 pg [facility] MCHC 33.6 32.1 - 35.9 gm/dl [facility] PLT 130(L) 141 - 320 K/cmm [facility] RDW-CV 12.6 11.7 - 14.6 % [facility] % Neutrophils 59.3 45.5 - 79.7 % [facility] % Lymphocytes 25.5 15.0 - 46.8 % [facility] % Monocytes 14.3(H) 1.8 - 12.0 % [facility] % Eosinophils 0.5(L) 0.6 - 6.9 % [facility] % Basophils 0.4 0.2 - 1.4 % [facility] ABS Neutrophils 4.66 2.20 - 8.85 K/cmm [facility] ABS Lymphs 2.00 1.09 - 3.30 K/cmm [facility] ABS Monocytes 1.12(H) 0.1 - 0.8 K/cmm [facility] ABS Eosinophils 0.04 0.03 - 0.61 K/cmm [facility] ABS Basophils 0.03 0.01 - 0.11 K/cmm [facility] Type of Diff: Automated [facility] 05/29/2000 6:25 EDT 05/29/2000 7:35 EDT Shannan Vieyra MD HISTORICAL LAB FOR S Q LOAD [facility] [address] [place] [address] * (ABNORMAL) BUN (05/29/2000 6:25 EDT) BUN 5(L) 10 - 26 mg/dl [facility] 05/29/2000 6:25 EDT 05/29/2000 7:35 EDT Shannan Vieyra MD CHEMISTRY & BLOOD GA S ORDERABLES Performing Organization Address [facility] Co de Phone Number [facility] [address] [place] [address] * BACTERIAL CULTURE, BLOOD (05/29/2000 2:15 EDT) Specimen Description Blood Right Arm [facility] Result No growth [facility] Report Status Final [id number] [facility] 05/29/2000 2:15 EDT 05/29/2000 8:57 EDT Shannan Vieyra MD MICROBIOLOGY - GENER AL ORDERABLES Performing Organization Address [facility] Co de Phone Number [facility] [address] [place] [address] documented in this encounter Visit Diagnoses Not on filedocumented in this encounter
--- OUTSIDE RECORDS SUMMARY | 2024-05-24 15:32 | XMS_ITS | Encounter Summary ---
Author Organization [facility] Address [address] [place] [address] Care Team Providers Care Garden Equipment Mechanic Name Role Phone Unavailable Primary Care Provider Unavailabl e Encounter Details Date Type Department Care Team (Latest Contact Info) Description 05/28/2000 14:33 EDT Hospital Encounter [facility] Emergency Department - [facility] [address] [place], [place] [address] Emergency, Default, MD Discharge Disposition: Home or [...] Associated Diagnosis Comments BACTERIAL CULTURE, BLOOD Routine 05/28/2000 15:16 EDT CREATININE Routine 05/28/2000 14:47 EDT HEMAGRAM & DIFF Routine 05/28/2000 14:47 EDT HOLD Routine 05/28/2000 14:47 EDT BUN Routine 05/28/2000 14:47 EDT ELECTROLYTES Routine 05/28/2000 14:47 EDT URINE SEDIMENT (MICRO) WITHOUT REFLEX TO CULTURE Routine 05/28/2000 14:44 EDT TEST, URINE Routine 05/28/2000 14:44 EDT GRAM SMEAR Routine 05/28/2000 14:44 EDT BACTERIAL CULTURE, URINE Routine 05/28/2000 14:44 EDT documented in this encounter Results * BACTERIAL CULTURE, BLOOD (05/28/2000 15:16 EDT) Specimen Description Blood Left Arm [facility] Result No growth [facility] Report Status Final [id number] [facility] 05/28/2000 15:1 6 EDT 05/28/2000 15:16 EDT Default Emergency MICROBIOLOGY - GENE RAL ORDERABLES Performing Organization Address [facility] de Phone Number [facility] [address] [place] [address] * ELECTROLYTES (05/28/2000 14:47 EDT) Sodium 137 136 - 145 mEq/L [facility] Potassium 3.9 3.5 - 5.0 mEq/L [facility] Chloride 100 96 - 110 mEq/L [facility] CO2 24 24 - 30 mEq/L [facility] 05/28/2000 14:4 7 EDT 05/28/2000 14:49 EDT Default Emergency CHEMISTRY & BLOOD G ORDERABLES Performing Organization Address [facility] de Phone Number [facility] [address] [place] [address] * HOLD (05/28/2000 14:47 EDT) Hold Sample for coagulation will be discarded after 4 hours [facility] 05/28/2000 14:4 7 EDT 05/28/2000 14:49 EDT Default Emergency CHEMISTRY & BLOOD G ORDERABLES Performing Organization Address [facility] de Phone Number [facility] [address] [place] [address] * (ABNORMAL) CREATININE (05/28/2000 14:47 EDT) Pathologist [facility] Creatinine 0.6(L) 0.7 - 1.5 mg/dl [facility] 05/28/2000 14:4 7 EDT 05/28/2000 14:49 EDT Default Emergency MD HISTORICAL LAB FOR SQ LOAD [facility] [address] [place] [address] * (ABNORMAL) HEMAGRAM & DIFF (05/28/2000 14:47 EDT) Pathologist [facility] WBC 15.08(H) 4.0 - 12.4 K/cmm [facility] RBC 5.07(H) 3.86 - 5.04 M/cmm [facility] Hemoglobin 13.6 11.6 - 15.2 gm/dl [facility] HCT 40.5 34.9 - 44.4 % [facility] MCV 80(L) 81 - 98 fl [facility] MCH 26.8 26.7 - 33.3 pg [facility] MCHC 33.6 32.1 - 35.9 gm/dl [facility] PLT 169 141 - 320 K/cmm [facility] RDW-CV 12.2 11.7 - 14.6 % [facility] Neutrophils 88(H) 45.5 - 79.7 % [facility] Lymphocytes 8(L) 15.0 - 46.8 % [facility] Monocytes 4 1.8 - 12.0 % [facility] ABS Neutrophils 13.27(H) 2.20 - 8.85 K/cmm [facility] ABS Lymphs 1.21 1.09 - 3.30 K/cmm [facility] ABS Monocytes 0.60 0.1 - 0.8 K/cmm [facility] RBC Morphology 1+ Hypochromia 2+ Microcytes [facility] WBC Morphology 1+ Toxic granulation 1+ Vacuolization [facility] Type of Diff: Manual [facility] 05/28/2000 14:4 7 EDT 05/28/2000 14:49 EDT Default Emergency HISTORICAL LAB FOR SQ LOAD Performing Organization Address [facility] Co de Phone Number [facility] [address] [place] [address] * (ABNORMAL) BUN (05/28/2000 14:47 EDT) BUN 7(L) 10 - 26 mg/dl [facility] 05/28/2000 14:4 7 EDT 05/28/2000 14:49 EDT Default Emergency CHEMISTRY & BLOOD G ORDERABLES Performing Organization Address [facility] Co de Phone Number [facility] [address] [place] [address] * GRAM SMEAR (05/28/2000 14:44 EDT) Specimen Description Urine [facility] Gram Smear Result Mod Polys >50 Gram negative bacilli , per oil immersion field [facility] Report Status Final [id number] [facility] 05/28/2000 14:4 4 EDT 05/29/2000 9:38 EDT Shannan Vieyra MD MICROBIOLOGY - GENER AL ORDERABLES Performing Organization Address [facility] Co de Phone Number [facility] [address] [place] [address] * BACTERIAL CULTURE, URINE (05/28/2000 14:44 EDT) Specimen Description Urine [facility] Result Greater than 100,000 CFU/ml ESCHERICHIA COLI 10,000 to 100,000 CFU/ml Mixed gram positive growth [facility] Report Status Final [id number] [facility] 05/28/2000 14:4 4 EDT 05/28/2000 14:44 EDT Narrative Organism Antibiotic Method Susceptibility Greater than 100,000 cfu/ml escherichia coli Cefazolin SUSCEPTIBILITY (SAÚL) >=128 Resistant Greater than 100,000 cfu/ml escherichia coli Ampicillin SUSCEPTIBILITY (SAÚL) >=32 Resistant Greater than 100,000 cfu/ml escherichia coli Gentamicin SUSCEPTIBILITY (SAÚL) <=0.5 Susceptible Greater than 100,000 cfu/ml escherichia coli Trimethoprim-Sulfametho xazole SUSCEPTIBILITY (SAÚL) >=16/304 Resistant Greater than 100,000 cfu/ml escherichia [...] escherichia coli Ciprofloxacin SUSCEPTIBILITY (SAÚL) <=0.5 Susceptible Default Emergency MICROBIOLOGY - GENE RAL ORDERABLES Performing Organization Address [facility] Co de Phone Number [facility] [address] [place] [address] * TEST, URINE (05/28/2000 14:44 EDT) Result-Pregnanc y Test, Ur Neg [facility] Specific [place] 1.015 [facility] 05/28/2000 14:4 4 EDT 05/28/2000 14:44 EDT Default Emergency URINALYSIS ORDERABL ES Performing Organization Address [facility] Co de Phone Number [facility] [address] [place] [address] * (ABNORMAL) URINE MICROSCOPIC ONLY (05/28/2000 14:44 EDT) WBC, UA >50 0 - 5 /HPF [facility] RBC, UA 1 to 5 0 - 5 /HPF [facility] Squam Epithel, UA Many(A) NS /HPF [facility] Renal Epithel, UA None seen NS /HPF [facility] Bacteria, UA Frequent(A) NS /HPF [facility] Crystals, UA None seen /HPF [facility] Hyaline Casts, UA Frequent transitional epithelial cells. /LPF [facility] UA Comment Microscopic results are unreliable on urines unrefrig >2hrs or refrig >8hrs. [facility] 05/28/2000 14:4 4 EDT 05/28/2000 14:44 EDT Default Emergency MD URINALYSIS ORDERABL ES [facility] [address] [place] [address] documented in this encounter Visit Diagnoses Not on filedocumented in this encounter
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
--- OUTSIDE RECORDS SUMMARY | 2024-05-24 15:32 | XMS_ITS | Encounter Summary ---
Author Organization [facility] Address [address] [place] [address] Care Team Providers Care Home Office Claim Specialist Name Role Phone Shannan Vieyra MD Primary Care Provider Unavail able Encounter Details Date Type Department Care Team (Late st Contact Info) Description 02/19/2003 Results Only [facility] Family Medicine - [address] [id number] Leida Cerda PA-C [address] [place] [address] [address] [place], [place] [id number] Social History Tobacco Use Types Packs/Day Years Used Date Smoking Tobacco: Never Assessed Sex and Gender Information Value Date Recorded Sex Assigned at Not on file Gender Identity Not on file Sexual Orientation Not on file documented as of this encounter Plan of Treatment Not on file documented as of this encounter Procedures Procedure Name Priority Date/Time Associated Diagnosis Comments T3, TOTAL Routine 02/19/2003 10:14 EDT T4 FREE Routine 02/19/2003 10:14 EDT documented in this encounter Results * (ABNORMAL) T3, TOTAL (02/19/2003 10:14 EDT) T3, Total 430(H) 60 - 181 ng/dl [facility] 02/19/2003 10:1 4 EDT 02/19/2003 16:51 EDT Leida Cerda PA-C CHEMISTRY & BLOOD GAS ORDERABLES Performing Organization Address City/[facility] Co de Phone Number [facility] [address] [place] [address] * (ABNORMAL) T4 FREE (02/19/2003 10:14 EDT) Free T4 2.9(H) 0.8 - 1.8 ng/dl [facility] 02/19/2003 10:1 4 EDT 02/19/2003 16:51 EDT Leida Cerda PA-C CHEMISTRY & BLOOD GAS ORDERABLES Performing Organization Address [facility] de Phone Number [facility] [address] [place] [address] documented in this encounter Visit Diagnoses Not on filedocumented in this encounter Care Teams Home Office Claim Specialist Relationship Specialty Start Date End Date Shannan Vieyra MD PCP - General 04/08/09 03/15/19 documented as of this encounter
--- OUTSIDE RECORDS SUMMARY | 2024-05-24 15:32 | XMS_ITS | Encounter Summary ---
Author Organization [facility] Address [address] [place] [address] Care Team Providers Care Senior Application Programmer Name Role Phone Unavailable Primary Care Provider Unavailabl e Encounter Details Date Type Department Care Team (Late st Contact Info) Description 11/01/2000 12:39 EST Hospital Encounter [facility] - Other [address] [place] [address] Audrey Rausch MD [address] [place] [address], [facility] [address] [place] [address] Unknown, Provider, Social History Tobacco Use Types Packs/Day Years Used Date Smoking Tobacco: Never Smokeless Tobacco: Never Alcohol Use Standard Drinks/Week Comments No 0 (1 standard drink = 0.6 oz pur e alcohol) [facility] Utilities Answer Date Recorded In the past 12 months has [employer], gas, oil, or water [employer] threatened to shut off services in your [...] Procedure Name Priority Date/Time Associated Diagnosis Comments SURGICAL PATHOLOGY Routine 11/01/2000 0:00 EST documented in this encounter Results * SURGICAL PATHOLOGY (11/01/2000 0:00 EST) Pathology Report: SURGICAL PATHOLOGY REPORT Reports generated via electronic interface contain original data; however they are lacking the format of the original report. Caution should be taken when reading/interpreti ng unformatted reports. Name: ? DORIS KERR ? Accession #: ? [id number] ? : ? 1980 (Age: 20) ??F ? Collect Date: ? 11/01/2000 ? Location: ? [facility] ? Receive Date: ? 11/02/2000 ? Provider: AUDREY RAUSCH MD Copy to: ? Final Pathologic Diagnosis: A. ?Endocervix, curettage: 1. ?Fragments of benign endocervical tissue. B. ?Cervix, 11 o' clock, biopsy: 1. ?Transformation zone epithelium with reactive squamous and endocervical epithelial changes. 2. ?Chronic and focal acute cervicitis. 3. ?Squamous metaplasia. Document reviewed and electronically signed by: Humaira Erickson MD Report ??Date: 11/04/2000 19:22 By the signature above, the attending physician certifies that he/she has personally conducted a gross and/or microscopic examination of the described specimens and rendered or confirmed the above diagnosis. Specimen(s) Received: A. ?ECC (#1) B. ?Cervical bx at 11 o' clock (#2) Clinical History: ? H/o ASCUS favor reactive x2; clinical diagnosis code: 795.0 Gross Description: ? Received in formalin labelled Copen and ECC is 0.5 cc of cardoza-red mucinous material. ??The specimen is entirely submitted as (A). Received in formalin labelled Copen and cx bx 11 o' clock is a villa-white friable 0.5 x 0.3 x 0.2 cm soft tissue fragment. ??The specimen is entirely submitted as (B). ??(Etienne Ashby/ljn End of Report [facility] 11/01/2000 11/02/2000 10: 52 EST Audrey Rausch MD PATHOLOGY ORDERABL ES Performing Organization Address City/State/[facility] Co de Phone Number [facility] [address] [place] [address] documented in this encounter Visit Diagnoses Not on filedocumented in this encounter
--- OUTSIDE RECORDS SUMMARY | 2024-05-24 15:32 | XMS_ITS | Encounter Summary ---
Author Organization [facility] Address [address] [place] [address] Care Team Providers Care Sole Ruffer Name Role Phone Unavailable Primary Care Provider Unavailabl e Encounter Details Date Type Department Care Team (Latest Contact Info) Description 08/09/1999 3:14 EST - 08/09/1999 11:59 EST Hospital Encounter [facility] [place] [address] Emergency, Default, MD Discharge Disposition: Home or [...]
--- OUTSIDE RECORDS SUMMARY | 2024-05-24 15:32 | XMS_ITS | Encounter Summary ---
Author Organization [facility] Address [address] [place] [address] Care Team Providers Care Building Service Worker Name Role Phone Unavailable Primary Care Provider Unavailabl e Encounter Details Date Type Department Care Team (Latest Contact Info) Description 03/07/2003 8:25 EDT - 03/07/2003 11:59 EDT Hospital Encounter [facility] [address] [place] [address] Angelo Clemons MD [address] [place] [phone] Discharge Disposition: Auto Discharge Social History [...]
--- OUTSIDE RECORDS SUMMARY | 2024-05-24 15:32 | XMS_ITS | Encounter Summary ---
Author Organization [facility] Address [address] [place] [address] Care Team Providers Care Program Administrator Name Role Phone Unavailable Primary Care Provider Unavailabl e Encounter Details Date Type Department Care Team (Latest Contact Info) Description 10/05/2000 16:08 EST Hospital Encounter [address] [address] Wyatt Sousa PA Discharge Disposition: Auto Discharge Social History Tobacco [...] Name Priority Date/Time Associated Diagnosis Comments CT LUMBAR SPINE WO CONTRAST Routine 10/05/2000 17:10 EST documented in this encounter Results * CT LUMBAR SPINE WO CONTRAST (10/05/2000 17:10 EST) Anatomical Region Laterality Modality Other 10/05/2000 17:1 0 EST Impressions 08/20/2009 0:09 EST IMPRESSION: 1. Normal lumbar spine from L3 to S1. HISTORY: 20 y.o. female with bilateral low back pain. Rule out radiculopathy versus joint abnormality. TECHNIQUE: CT of the lumbar spine was performed with axial 2.5mm sections from L3 to S1, as well as angled sections through L5-S1. No contrast was administered. FINDINGS: No paravertebral soft tissue abnormality is seen. No masses are identified. The spinal canal is widely patent at all levels. There is no evidence of disc herniation or neural foraminal narrowing. No facet disease is appreciated. D 10/06/00 T 10/11/00 /emanuel Narrative 08/20/2009 0:09 EST EXTREME LBP BILATERAL NEAR SI JOINTS ??R/O SI/LS RADICULOPATHY VS SI VAMSHI INT ABNORMALITY LUMBAR SPINE CT 10/05/00, 1600 hours Procedure Note WGinger DMD / Casi Lamb MD - 08/20/2009 EXTREME LBP BILATERAL NEAR SI JOINTS R/O SI/LS RADICULOPATHY VS SI VAMSHI INT ABNORMALITY LUMBAR SPINE CT 10/05/00, 1600 hours IMPRESSION IMPRESSION: 1. Normal lumbar spine from L3 to S1. HISTORY: 20 y.o. female with bilateral low back pain. Rule out radiculopathy versus joint abnormality. TECHNIQUE: CT of the lumbar spine was performed with axial 2.5mm sections from L3 to S1, as well as angled sections through L5-S1. No contrast was administered. FINDINGS: No paravertebral soft tissue abnormality is seen. No masses are identified. The spinal canal is widely patent at all levels. There is no evidence of disc herniation or neural foraminal narrowing. No facet disease is appreciated. D 10/06/00 T 10/11/00 /emanuel Wyatt [facility] CT ORDERABLES documented in this encounter Visit Diagnoses Not on filedocumented in this encounter
--- OUTSIDE RECORDS SUMMARY | 2024-05-24 15:32 | XMS_ITS | Encounter Summary ---
Author Organization [facility] Address [address] [place] [id number] Care Team Providers Care Promotions Assistant Sales Marketing Name Role Phone Unavailable Primary Care Provider Unavailabl e Encounter Details Date Type Department Care Team (Latest Contact Info) Description 02/18/2003 13:36 EDT Hospital Encounter [address] [address] Shannan Vieyra MD Discharge Disposition: Auto Discharge [...] Priority Date/Time Associated Diagnosis Comments RAD US NECK/THYROID Routine 02/18/2003 1 4:05 EDT documented in this encounter Results * RAD US NECK/THYROID (02/18/2003 14:05 EDT) Anatomical Region Laterality Modality Other 02/18/2003 14:0 5 EDT Narrative 06/24/2009 4:39 EDT THYROID/NECK US - TACHYCARDIA, HYPERTHYROIDISM - R/O SINGLE DOMINANT N ODULE THYROID ULTRASOUND: 02/18/2003 CLINICAL HISTORY: Tachycardia and hyperthyroidism. Evaluate for single dominant nodule. FINDINGS: Ultrasound shows a diffusely heterogenous gland. The right lobe is slightly larger than the left, measuring 4.4 cm longitudinally x 1.3 cm in the AP dimension x 2.4 cm transversely. The left measures 4.4 cm longitudinally x 1.1 cm in the AP dimension x 1.6 cm transversely. The isthmus measures 4 mm. No focal, solid, or cystic mass is identified in the thyroid gland. Small normal-appearing lymph nodes are seen in the neck bilaterally. IMPRESSIONS: Mildly enlarged, heterogenous appearing thyroid gland without focal lesion. Findings suggest diffuse goiter in this clinical setting. /tns Procedure Note Elayne Ruano MD - 06/24/2009 THYROID/NECK US - TACHYCARDIA, HYPERTHYROIDISM - R/O SINGLE DOMINANT N ODULE THYROID ULTRASOUND: 02/18/2003 CLINICAL HISTORY: Tachycardia and hyperthyroidism. Evaluate for single dominant nodule. FINDINGS: Ultrasound shows a diffusely heterogenous gland. The right lobe is slightly larger than the left, measuring 4.4 cm longitudinally x 1.3 cm in the AP dimension x 2.4 cm transversely. The left measures 4.4 cm longitudinally x 1.1 cm in the AP dimension x 1.6 cm transversely. The isthmus measures 4 mm. No focal, solid, or cystic mass is identified in the thyroid gland. Small normal-appearing lymph nodes are seen in the neck bilaterally. IMPRESSIONS: Mildly enlarged, heterogenous appearing thyroid gland without focal lesion. Findings suggest diffuse goiter in this clinical setting. /tns Shannan Vieyra MD IMG US ORDERABLES documented in this encounter Visit Diagnoses Not on filedocumented in this encounter
--- OUTSIDE RECORDS SUMMARY | 2024-05-24 15:32 | XMS_ITS | Encounter Summary ---
Author Organization [facility] Address [address] [place] [address] Care Team Providers Care Manager Access Name Role Phone Shannan Vieyra MD Primary Care Provider Unavail able Encounter Details Date Type Department Care Team (Late st Contact Info) Description 02/12/2003 Results Only [facility] Medicine - [place] [id number] [place] [address] Leida Cerda PA-C [address] [facility] [address] [place], [place] [address] Social History Tobacco Use Types Packs/Day Years Used Date Smoking Tobacco: Never Assessed Sex and Gender Information Value Date Recorded Sex Assigned at Not on file Gender Identity Not on file Sexual Orientation Not on file documented as of this encounter Plan of Treatment Not on file documented as of this encounter Procedures Procedure Name Priority Date/Time Associated Diagnosis Comments THYROID CASCADE Routine 02/12/2003 11:37 EDT T4, FREE REFLEX Routine 02/12/2003 11:37 EDT COMPLETE BLOOD COUNT Routine 02/12/2003 11:37 EDT COMPREHENSIVE METABOLIC PANEL (CMP) Routine 02/12/2003 11:37 EDT documented in this encounter Results * (ABNORMAL) THYROID CASCADE (02/12/2003 11:37 EDT) TSH <0.02(L) 0.35 - 5.50 uIU/ml [facility] 02/12/2003 11:3 7 EDT 02/12/2003 16:43 EDT Leida Cerda PA-C CHEMISTRY & BLOOD GAS ORDERABLES Performing Organization Address [facility] Co de Phone Number [facility] [address] [place] [address] * (ABNORMAL) FREE T4 (02/12/2003 11:37 EDT) Free T4 3.1(H) 0.8 - 1.8 ng/dl [facility] 02/12/2003 11:3 7 EDT 02/12/2003 16:43 EDT Leida Cerda PA-C CHEMISTRY & BLOOD GAS ORDERABLES Performing Organization Address [facility] de Phone Number [facility] [address] [place] [address] * (ABNORMAL) COMPREHENSIVE METABOLIC PANEL (CMP) (02/12/2003 11:37 EDT) Potassium 4.6 3.5 - 5.0 mEq/L [facility] Sodium 141 136 - 145 mEq/L [facility] Chloride 103 96 - 110 mEq/L [facility] CO2 29 24 - 30 mEq/L [facility] Total Alkaline Phosphatase 114 38 - 126 U/L [facility] Bilirubin, Total 0.1(L) 0.2 - 1.3 mg/dl [facility] AST 16 8 - 50 U/L [facility] ALT 28 15 - 75 U/L [facility] Albumin 3.6 3.0 - 5.5 g/dl [facility] Total Protein 6.7 6.0 - 8.5 g/dl [facility] Creatinine 0.6(L) 0.7 - 1.5 mg/dl [facility] BUN 11 10 - 26 mg/dl [facility] Calcium 9.7 8.5 - 10.5 mg/dl [facility] Calculated Calcium 10.5 8.5 - 10.5 mg/dl [facility] Glucose, Serum 96 70 - 110 mg/dl [facility] Albumin/Globulin Ratio 1.2 [facility] 02/12/2003 11:3 7 EDT 02/12/2003 16:43 EDT Leida Cerda PA-C CHEMISTRY & BLOOD GAS ORDERABLES Performing Organization Address [facility] Co de Phone Number [facility] [address] [place] [address] * (ABNORMAL) HEMAGRAM (02/12/2003 11:37 EDT) WBC 7.03 4.0 - 12.4 K/cmm [facility] RBC 5.22(H) 3.86 - 5.04 M/cmm [facility] Hemoglobin 14.2 11.6 - 15.2 gm/dl [facility] HCT 42.4 34.9 - 44.4 % [facility] MCV 81 81 - 98 fl [facility] MCH 27.2 26.7 - 33.3 pg [facility] MCHC 33.5 32.1 - 35.9 gm/dl [facility] PLT 234 141 - 320 K/cmm [facility] RDW-CV 13.6 11.7 - 14.6 % [facility] 02/12/2003 11:3 7 EDT 02/12/2003 16:43 EDT Leida Cerda PA-C HEMATOLOGY & PF4 ORDERABLES Performing Organization Address City/[facility] Co de Phone Number [facility] [address] [place] [address] documented in this encounter Visit Diagnoses Not on filedocumented in this encounter Care Teams Manager Access Relationship Specialty Start Date End Date Shannan Vieyra MD PCP - General 04/08/09 03/15/19 documented as of this encounter
--- OUTSIDE RECORDS SUMMARY | 2024-05-24 15:32 | XMS_ITS | Encounter Summary ---
Author Organization [facility] Address [address] [place] [address] Care Team Providers Care Manager Public Name Role Phone Unavailable Primary Care Provider Unavailabl e Encounter Details Date Type Department Care Team (Latest Contact Info) Description 03/06/2003 11:09 EDT - 03/06/2003 11:59 EDT Hospital Encounter [facility] [address] [place] [address] Angelo Clemons MD [address] [place] [phone] Discharge Disposition: Auto Discharge Social History [...] Name Priority Date/Time Associated Diagnosis Comments NM THYROID UPTAKE + SCAN Routine 03/06/2003 15:07 EDT documented in this encounter Results * NM THYROID UPTAKE + SCAN (03/06/2003 15:07 EDT) Anatomical Region Laterality Modality Other 03/06/2003 15:0 7 EDT Impressions 06/24/2009 2:39 EDT IMPRESSION: Given the provided history of clinical/chemical hyperthyroidism this study is consistent with Grave's disease. D: 03-07-03 T: 03-08-03 /am Narrative 06/24/2009 2:39 EDT THYROID UPTAKE/SCAN- ??CHEST PAIN AND PALPITATION R/O GRAVES VS THYROID ITIS 03-06-03 THYROID UPTAKE AND SCAN: TECHNIQUE: After the oral ingestion of 230 uCi I-123, a thyroid scan is obtained at four hours followed by an uptake calculation at 24 hours. FINDINGS: On physical exam the patient's thyroid gland is diffusely enlarged approximately 45 grams. No nodules were palpable. The thyroid scan demonstrates diffuse and homogenous radio-iodine uptake in the enlarged thyroid gland. Pyramidal lobe is visualized. 24 hours radio-iodine uptake is equal to 67%. Procedure Note Desmond Obrien MD - 06/24/2009 THYROID UPTAKE/SCAN- CHEST PAIN AND PALPITATION R/O GRAVES VS THYROID ITIS 03-06-03 THYROID UPTAKE AND SCAN: TECHNIQUE: After the oral ingestion of 230 uCi I-123, a thyroid scan is obtained at four hours followed by an uptake calculation at 24 hours. FINDINGS: On physical exam the patient's thyroid gland is diffusely enlarged approximately 45 grams. No nodules were palpable. The thyroid scan demonstrates diffuse and homogenous radio-iodine uptake in the enlarged thyroid gland. Pyramidal lobe is visualized. 24 hours radio-iodine uptake is equal to 67%. IMPRESSION IMPRESSION: Given the provided history of clinical/chemical hyperthyroidism this study is consistent with Grave's disease. D: 03-07-03 T: 03-08-03 /am Angelo Clemons MD IMG NM ORDERABLES documented in this encounter Visit Diagnoses Not on filedocumented in this encounter
--- OUTSIDE RECORDS SUMMARY | 2024-05-24 15:32 | XMS_ITS | Encounter Summary ---
Author Organization [facility] Address [address] [place] [address] Care Team Providers Care Grades 6 Through 8 Teacher Name Role Phone Unavailable Primary Care Provider Unavailabl e Encounter Details Date Type Department Care Team (Latest Contact Info) Description 11/29/2000 15:32 EST Hospital Encounter [address] [address] Deana Gutierrez MD [address] [place] [phone] Discharge Disposition: Auto Discharge Social History Tobacco [...] Procedure Name Priority Date/Time Associated Diagnosis Comments HAND 3 OR MORE VIEWS Routine 11/29/2000 16:40 EST documented in this encounter Results * HAND 3 OR MORE VIEWS (11/29/2000 16:40 EST) Anatomical Region Laterality Modality Other 11/29/2000 16:4 0 EST Narrative 08/20/2009 1:33 EST R/O FRACTUREFELL ON ICE X 48 HOURS INCREASED PAIN AND + SWELLING LEFT HAND FIFTH METATARSAL LEFT HAND 11/29/00 16:35 Three views of the left hand show no evidence of recent fracture or dislocation. /fernanda Procedure Note Sharif Mcmillan MD - 08/20/2009 R/O FRACTUREFELL ON ICE X 48 HOURS INCREASED PAIN AND + SWELLING LEFT HAND FIFTH METATARSAL LEFT HAND 11/29/00 16:35 Three views of the left hand show no evidence of recent fracture or dislocation. /fernanda Deana Gutierrez MD IMG DIAGNOSTIC IMAGING ORDERABLES documented in this encounter Visit Diagnoses Not on filedocumented in this encounter
--- OUTSIDE RECORDS SUMMARY | 2024-05-24 15:32 | XMS_ITS | Encounter Summary ---
Author Organization [facility] Address [address] [place] [address] Care Team Providers Care Varitypist Name Role Phone Unavailable Primary Care Provider Unavailabl e Encounter Details Date Type Department Care Team (Latest Contact Info) Description 12/31/2000 23:46 EST - 01/01/2001 11:59 EST Hospital Encounter [facility] [place] [address] Emergency, Default, MD Discharge Disposition: Home or [...] Associated Diagnosis Comments BACTERIAL CULTURE, URINE Routine 01/01/2001 8:11 EST HEMAGRAM & DIFF Routine 01/01/2001 0:58 EST LIPASE Routine 01/01/2001 0:58 EST HEPATIC FUNCTION PANEL (ALB,ALK PHOS,ALT,AST,DBIL,T OT YOGI,TOT PROT) Routine 01/01/2001 0:58 EST URINE SEDIMENT (MICRO) WITHOUT REFLEX TO CULTURE Routine 01/01/2001 0:38 EST documented in this encounter Results * BACTERIAL CULTURE, URINE (01/01/2001 8:11 EST) Pathologist [facility] Specimen Description Urine [facility] Result Greater than 100,000 CFU/ml ESCHERICHIA COLI [facility] Report Status Final [id number] [facility] 01/01/2001 8:11 EST 01/01/2001 8:11 EST Narrative Organism Antibiotic Method Susceptibility Greater than 100,000 cfu/ml escherichia coli Ampicillin SUSCEPTIBILITY (SÚAL) >=32 Resistant Greater than 100,000 cfu/ml escherichia coli Cefazolin SUSCEPTIBILITY (SAÚL) <=8 Susceptible Greater than 100,000 cfu/ml escherichia coli Gentamicin SUSCEPTIBILITY (SAÚL) <=0.5 Susceptible Greater than 100,000 cfu/ml escherichia coli Trimethoprim-Sulfameth oxazole SUSCEPTIBILITY (SAÚL) <=.5/9.5 Susceptible Greater than 100,000 cfu/ml escherichia coli Nitrofurantoin SUSCEPTIBILITY (SAÚL) <=32 Susceptible Greater than 100,000 cfu/ml escherichia coli Tobramycin SUSCEPTIBILITY (SAÚL) <=0.5 Susceptible Greater than 100,000 cfu/ml escherichia coli Amikacin SUSCEPTIBILITY (SAÚL) <=2 Susceptible Greater than 100,000 cfu/ml escherichia coli Imipenem SUSCEPTIBILITY (SAÚL) <=4 Susceptible Greater than 100,000 cfu/ml escherichia coli Piperacillin SUSCEPTIBILITY (SAÚL) 32 Intermediate Greater than 100,000 cfu/ml escherichia coli Ciprofloxacin SUSCEPTIBILITY (SAÚL) <=0.5 Susceptible Default Emergency MICROBIOLOGY - [facility] ORDERABLES Performing Organization Address City/State/[facility] Co de Phone Number [facility] [address] [place] [address] * LIVER FUNCTION TESTS (01/01/2001 0:58 EST) Pathologist [facility] Albumin 4.2 3.0 - 5.5 g/dl [facility] Total Protein 7.4 6.0 - 8.5 g/dl [facility] Total Alkaline Phosphatase 91 38 - 126 U/L [facility] ALT 34 15 - 75 U/L [facility] AST 18 8 - 50 U/L [facility] Unconjugated Bilirubin 0.3 0.1 - 1.1 mg/dl [facility] Conjugated Bilirubin 0.0 0.0 - 0.3 mg/dl [facility] Bilirubin, Total 0.5 0.2 - 1.3 mg/dl [facility] 01/01/2001 0:58 EST 01/01/2001 0:58 EST Default Emergency MD CHEMISTRY & BLOOD G ORDERABLES Performing Organization Address [facility] de Phone Number [facility] [address] [place] [address] * LIPASE (01/01/2001 0:58 EST) Lipase 70 0 - 210 U/L [facility] 01/01/2001 0:58 EST 01/01/2001 0:58 EST Default Emergency MD CHEMISTRY & BLOOD G ORDERABLES Performing Organization Address [facility] Phone Number [facility] [address] [place] [address] * HEMAGRAM & DIFF (01/01/2001 0:58 EST) WBC 6.79 4.0 - 12.4 K/cmm [facility] RBC 5.02 3.86 - 5.04 M/cmm [facility] Hemoglobin 13.9 11.6 - 15.2 gm/dl [facility] HCT 41.0 34.9 - 44.4 % [facility] MCV 82 81 - 98 fl [facility] MCH 27.7 26.7 - 33.3 pg [facility] MCHC 33.8 32.1 - 35.9 gm/dl [facility] PLT 197 141 - 320 K/cmm [facility] RDW-CV 13.5 11.7 - 14.6 % [facility] % Neutrophils 70.0 45.5 - 79.7 % [facility] % Lymphocytes 19.5 15.0 - 46.8 % [facility] % Monocytes 7.4 1.8 - 12.0 % [facility] % Eosinophils 2.9 0.6 - 6.9 % [facility] % Basophils 0.2 0.2 - 1.4 % [facility] ABS Neutrophils 4.75 2.20 - 8.85 K/cmm [facility] ABS Lymphs 1.33 1.09 - 3.30 K/cmm [facility] ABS Monocytes 0.50 0.1 - 0.8 K/cmm [facility] ABS Eosinophils 0.20 0.03 - 0.61 K/cmm [facility] ABS Basophils 0.02 0.01 - 0.11 K/cmm [facility] Type of Diff: Automated [facility] 01/01/2001 0:58 EST 01/01/2001 0:58 EST Default Emergency HISTORICAL LAB FOR SQ LOAD Performing Organization Address [facility] Co de Phone Number [facility] [address] [place] [address] * (ABNORMAL) URINE MICROSCOPIC ONLY (01/01/2001 0:38 EST) WBC, UA 10 to 50 0 - 5 /HPF [facility] RBC, UA None seen 0 - 5 /HPF [facility] Squam Epithel, UA Few(A) NS /HPF [facility] Renal Epithel, UA None seen NS /HPF [facility] Bacteria, UA Many(A) NS /HPF [facility] Crystals, UA None seen /HPF [facility] Hyaline Casts, UA Few Hyaline /LPF [facility] Comment: Few Hyaline w/ granular inclusions UA Comment Microscopic results are unreliable on urines unrefrig >2hrs or refrig >8hrs. [facility] 01/01/2001 0:38 EST 01/01/2001 0:46 EST Default Emergency URINALYSIS ORDERABL ES Performing Organization Address [facility] Co de Phone Number [facility] [address] [place] [address] documented in this encounter Visit Diagnoses Not on filedocumented in this encounter
--- OUTSIDE RECORDS SUMMARY | 2024-05-24 15:32 | XMS_ITS | Encounter Summary ---
Author Organization [facility] Address [address] [place] [address] Care Team Providers Care Chopping Machine Operator Name Role Phone Unavailable Primary Care Provider Unavailabl e Encounter Details Date Type Department Care Team (Latest Contact Info) Description 04/10/2000 5:00 EDT - 04/10/2000 11:59 EDT Hospital Encounter [facility] [place] [address] Emergency, Default, MD Discharge Disposition: Home or [...]
--- OUTSIDE RECORDS SUMMARY | 2024-05-24 15:32 | XMS_ITS | Encounter Summary ---
Author Organization [facility] Address [address] [place] [address] Care Team Providers Care Environmental Geologist Name Role Phone Unavailable Primary Care Provider Unavailabl e Encounter Details Date Type Department Care Team (Late st Contact Info) Description 01/20/2000 20:43 EDT Hospital Encounter [facility] - Other [address] [place] [address] Audrey Rausch MD [address] [place] [address], [facility] [address] [place] [phone] Unknown, Provider, Social History Tobacco Use Types Packs/Day Years Used Date Smoking Tobacco: Never Smokeless Tobacco: Never Alcohol Use Standard Drinks/Week Comments No 0 (1 standard drink = 0.6 oz pur e alcohol) [facility] Utilities Answer Date Recorded In the past 12 months has [employer], gas, oil, or water [employer] threatened to shut off services in your [...] Date/Time Associated Diagnosis Comments SURGICAL PATHOLOGY Routine 01/20/2000 9:29 EDT documented in this encounter Results * SURGICAL PATHOLOGY (01/20/2000 9:29 EDT) Pathology Report: SURGICAL PATHOLOGY REPORT Reports generated via electronic interface contain original data; however they are lacking the format of the original report. Caution should be taken when reading/interpreti ng unformatted reports. Name: ? MADHU DORIS Mykel ? Accession #: ? [id number] ? : ? 1980 (Age: 19) ??F ? Collect Date: ? 01/20/2000 ? Location: ?Receive Date: ? 01/20/2000 ? Provider: AUDREY RAUSCH MD Copy to: AUDREY RAUSCH MD ? Final Pathologic Diagnosis: MICROSCOPIC DIAGNOSIS: ? 1. 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 ? 2. Cervix, 1 o'clock, biopsy: ?- Squamous mucosa with reactive epithelial changes. ?- Negative for dysplasia. Document reviewed and electronically signed by: Conversion for OLEKSANDR LANDEROS Report ??Date: 01/21/2000 00:00 By the signature above, the attending physician certifies that he/she has personally conducted a gross and/or microscopic examination of the described specimens and rendered or confirmed the above diagnosis. Specimen(s) Received: TISSUE SUBMITTED: ? 1. R vaginal bx (9 o'clock) ? 2. Cervical bx @ 1 o'clock CLINICAL DATA: ? CHEYANNE; LGSIL; clinical diagnosis code: 795.0 Gross Description: GROSS: ? Received in formalin labelled Copen and right vaginal bx is a ? moulton-white, 0.4 x 0.4 x 0.3 cm, soft tissue fragment. ??The ? specimen is entirely submitted as (A). ? Received in formalin labelled Copen and 1 o'clock cx bx is a ? moulton-white, irregular, 0.2 x 0.2 x 0.2 cm, soft tissue fragment. ? The specimen is entirely submitted as (B). ??(Etienne Nicole)/frank ? End of Report [facility] 01/20/2000 9:29 EDT 01/20/2000 9:30 EDT Audrey Rausch MD PATHOLOGY ORDERABL ES Performing Organization Address City/State/[facility] Co de Phone Number [facility] [address] [place] [address] documented in this encounter Visit Diagnoses Not on filedocumented in this encounter
--- OUTSIDE RECORDS SUMMARY | 2024-05-24 15:32 | XMS_ITS | Encounter Summary ---
Author Organization [facility] Address [address] [place] [address] Care Team Providers Care Parachute Supervisor Name Role Phone Unavailable Primary Care Provider Unavailabl e Encounter Details Date Type Department Care Team (Latest Contact Info) Description 02/21/2003 13:09 EDT Hospital Encounter [facility] - Other [address] [place] [address] Angelo Clemons MD [address] [place] [address] [place] [phone] Discharge Disposition: Auto Discharge Social History [...] Name Priority Date/Time Associated Diagnosis Comments THYROID AB Routine 02/21/2003 13:09 EDT ALT Routine 02/21/2003 13:09 EDT AST Routine 02/21/2003 13:09 EDT documented in this encounter Results * THYROID AB (02/21/2003 13:09 EDT) Microsomal Ab <100 <100 [facility] Thyroglobulin Ab <10 <10 [facility] 02/21/2003 13:0 9 EDT 02/21/2003 13:11 EDT Angelo Clemons MD HISTORICAL LAB FOR S Q LOAD Performing Organization Address City/[facility] Co de Phone Number [facility] [address] [place] [address] * AST (02/21/2003 13:09 EDT) AST 18 8 - 50 U/L [facility] 02/21/2003 13:0 9 EDT 02/21/2003 13:11 EDT Angelo Clemons MD CHEMISTRY & BLOOD GA S ORDERABLES Performing Organization Address [facility] Co de Phone Number [facility] [address] [place] [address] * ALT (02/21/2003 13:09 EDT) ALT 31 15 - 75 U/L [facility] 02/21/2003 13:0 9 EDT 02/21/2003 13:11 EDT Angelo Clemons MD CHEMISTRY & BLOOD GA S ORDERABLES Performing Organization Address [facility] Co de Phone Number [facility] [address] [place] [address] documented in this encounter Visit Diagnoses Not on filedocumented in this encounter
--- OUTSIDE RECORDS SUMMARY | 2024-05-24 15:32 | XMS_ITS | Encounter Summary ---
Author Organization [facility] Address [address] [place] [address] Care Team Providers Care Manufacturing Plant Technician Name Role Phone Shannan Vieyra MD Primary Care Provider Unavail able Encounter Details Date Type Department Care Team (Late st Contact Info) Description 04/02/2003 Results Only [facility] [address] [address] Shannan Vieyra MD Social History Tobacco Use [...] Diagnosis Comments N. GONORRHOEAE AMPLIFIED PROBE Routine 04/02/2003 11:33 EDT ZZCHLAMYDIA TRACHOMATIS AMPLIFIED PROBE Routine 04/02/2003 11:33 EDT documented in this encounter Results * N. GONORRHOEAE AMPLIFIED PROBE (04/02/2003 11:33 EDT) Result No Neisseria gonorrhoeae DNA detected by cotton bag clipper mediated amplification. [facility] Report Status Final [id number] [facility] Specimen Description Endocervix [facility] 04/02/2003 11:3 3 EDT 04/02/2003 17:20 EDT Shannan Vieyra MD MICROBIOLOGY - GENER AL ORDERABLES Performing Organization Address City/State/[facility] Co de Phone Number [facility] [address] [place] [address] * CHLAMYDIA TRACHOMATIS AMPLIFIED PROBE (04/02/2003 11:33 EDT) Specimen Description Endocervix [facility] Result No Chlamydia trachomatis DNA detected by cotton bag clipper mediated amplification. [facility] Report Status Final [id number] [facility] 04/02/2003 11:3 3 EDT 04/02/2003 17:21 EDT Shannan Vieyra MD MICROBIOLOGY - GENER AL ORDERABLES Performing Organization Address [facility] Co de Phone Number [facility] [address] [place] [address] documented in this encounter Visit Diagnoses Not on filedocumented in this encounter Care Teams Manufacturing Plant Technician Relationship Specialty Start Date End Date Shannan Vieyra MD PCP - General 04/08/09 03/15/19 documented as of this encounter
--- OUTSIDE RECORDS SUMMARY | 2024-05-24 15:32 | XMS_ITS | Encounter Summary ---
Author Organization [facility] Address [address] [place] [address] Care Team Providers Care Stained Glass Joiner Name Role Phone Unavailable Primary Care Provider Unavailabl e Encounter Details Date Type Department Care Team (Late st Contact Info) Description 05/19/2000 22:23 EDT Hospital Encounter [facility] - Other [address] [place] [address] Audrey Rausch MD [address] [place] [address], [facility] [address] [place] [phone] Unknown, Provider, Social History Tobacco Use Types Packs/Day Years Used Date Smoking Tobacco: Never Smokeless Tobacco: Never Alcohol Use Standard Drinks/Week Comments No 0 (1 standard drink = 0.6 oz pur e alcohol) [facility] Utilities Answer Date Recorded In the past 12 months has [employer], gas, oil, or water [employer] threatened to shut off services in your [...] Priority Date/Time Associated Diagnosis Comments CYTOPATHOLOGY Routine 05/19/2000 0:00 EDT documented in this encounter Results * CYTOPATHOLOGY (05/19/2000 0:00 EDT) Pathology Report: CYTOPATHOLOGY REPORT Reports generated via electronic interface contain original data; however they are lacking the format of the original report. Caution should be taken when reading/interpreti ng unformatted reports. Name: ? DORIS KERR ? Accession #: ? [id number] : ? 1980 (Age: 20) ??F ?Collect Date: ? 05/19/2000 Location: ? [facility] ? Receive Date: ? 05/20/2000 Provider: ?AUDREY RAUSCH MD Copy to: ? Specimen/Source: ?ThinPrep Pap Test, Cervix/Endocervix Last Menstrual Period: ? 05/05/00 Hormonal/Contracep tive Status: ? Yes Previous Gynecologic Pathology: ? LSIL: VAIN: ? SPECIMEN ADEQUACY ? Satisfactory for evaluation. GENERAL CATEGORIZATION ? Epithelial Cell Abnormality DESCRIPTIVE DIAGNOSIS ? Atypical squamous cells of undetermined significance (ASCUS), favor reactive process. ? COMMENT ? There is no evidence in the current specimen of the LSIL previously seen in this patient. ? Document reviewed and electronically signed by: ? SHAYE LYNN MD [facility] ? Report Date: ??06/01/2000 17:21 End of Report [facility] 05/19/2000 05/20/2000 Audrey Rausch MD PATHOLOGY ORDERABL ES [facility] [address] [place] [address] documented in this encounter Visit Diagnoses Not on filedocumented in this encounter
--- OUTSIDE RECORDS SUMMARY | 2024-05-24 15:32 | XMS_ITS | Encounter Summary ---
Author Organization [facility] Address [address] [place] [address] Care Team Providers Care Plaster Helper Name Role Phone Unavailable Primary Care Provider Unavailabl e Encounter Details Date Type Department Care Team (Late st Contact Info) Description 04/18/2003 19:22 EDT Hospital Encounter [facility] [address] [place] [address] Pete Richey MD Social History Tobacco Use Types Packs/Day Years Used Date Smoking Tobacco: Never Smokeless Tobacco: Never Alcohol Use Standard Drinks/Week Comments No 0 (1 standard drink = 0.6 oz pur e alcohol) [facility] Utilities Answer Date Recorded In the past 12 months has [employer], gas, oil, or water company threatened [...]
--- OUTSIDE RECORDS SUMMARY | 2024-05-24 15:32 | XMS_ITS | Encounter Summary ---
Author Organization [facility] Address [address] [place] [address] Care Team Providers Care Sales Development Coordinator Name Role Phone Unavailable Primary Care Provider Unavailabl e Encounter Details Date Type Department Care Team (Late st Contact Info) Description 12/15/1999 9:44 EST Hospital Encounter [facility] - Other [address] [place] [address] Shy Crowe, INFORMATICS PHYSICIAN LIAISON [address] [place] [address] Unknown, Provider, Social History Tobacco Use Types Packs/Day Years Used Date Smoking Tobacco: Never Smokeless Tobacco: Never Alcohol Use Standard Drinks/Week Comments No 0 (1 standard drink = 0.6 oz pur e alcohol) [facility] Utilities Answer Date Recorded In the past 12 months has [facility] [employer], gas, oil, or water company threatened to [...] Priority Date/Time Associated Diagnosis Comments CYTOPATHOLOGY Routine 12/16/1999 9:38 EST N.GONORRHOEAE PROBE Routine 12/15/1999 1 8:00 EST CHLAMYDIA TRACHOMATIS PROBE Routine 12/15/1999 18:00 EST documented in this encounter Results * CYTOPATHOLOGY (12/16/1999 9:38 EST) Pathology Report: CYTOPATHOLOGY REPORT Reports generated via electronic interface contain original data; however they are lacking the format of the original report. Caution should be taken when reading/interpreti ng unformatted reports. Name: ? DORIS KERR ? Accession #: ? [id number] : ? 1980 (Age: 19) ??F ?Collect Date: ? 12/16/1999 Location: ?Receive Date: ? 12/16/1999 Provider: ?SHY PINEDA INFORMATICS PHYSICIAN LIAISON Copy to: ?SHY GRIGGS ? Specimen/Source: ?Braider Operator ThinPrep Last Menstrual Period: ? GYNECOLOGIC ??CYTOPATHOLOGY ??REPORT Name: DORIS KERR ? [facility] : 1980 ?? 19Y F ?Client ID: ?? SS#: [id number] ? Clinician: SHY RIVERA ?? Location: [facility] ??Copy to: ?? Specimen: ?Braider Operator ThinPrep ? Source: Cervix ?Collected: 12/15/99 ? Received: 12/16/1999 ?LMP: 11/27/99 ? Hormone Therapy: Yes ? : No ? Radiation Therapy: No ?? Post : No ?Chemotherapy: No ?IUD: No ? Prev Abnormal Pap: No ?? Clinical Hx: ?(Blank luque indicate information not provided on requisition) SPECIMEN ADEQUACY: ? Satisfactory For Evaluation ?? GENERAL CATEGORIZATION: ? EPITHELIAL CELL ABNORMALITY ?? DESCRIPTIVE DIAGNOSIS: ? Low Grade Squamous Intraepithelial Lesion (LSIL) ? Reviewed And Electronically Signed By: ? Sita Lenz M.D. ? Report Date: ?? 12/21/1999 [facility] Archived Tests - Final Diagnosis Text Field: Clinical History : ? Document reviewed and electronically signed by: ? Conversion ? Report Date: ??12/21/1999 00:00 End of Report [facility] 12/16/1999 9:38 EST 12/16/1999 9:39 EST Shy Crowe INFORMATICS PHYSICIAN LIAISON PATHOLOGY ORDERA BLES Performing Organization Address [facility] Co de Phone Number [facility] [address] [place] [address] * CHLAMYDIA TRACHOMATIS PROBE (12/15/1999 18:00 EST) Specimen Description Cervix [facility] Result No Chlamydia trachomatis DNA detected by treating engineer helper mediated amplification. [facility] Report Status Final [id number] [facility] 12/15/1999 18:0 0 EST 12/16/1999 9:26 EST Shy Crowe INFORMATICS PHYSICIAN LIAISON HISTORICAL LAB F OR SQ LOAD Performing Organization Address [facility] de Phone Number [facility] [address] [place] [address] * N.GONORRHOEAE PROBE (12/15/1999 18:00 EST) Specimen Description Cervix [facility] Result No Neisseria gonorrhoeae DNA detected by treating engineer helper mediated amplification. [facility] Report Status Final [id number] [facility] 12/15/1999 18:0 0 EST 12/16/1999 9:26 EST Shy Crowe INFORMATICS PHYSICIAN LIAISON HISTORICAL LAB F OR SQ LOAD Performing Organization Address [facility] Co de Phone Number [facility] [address] [place] [address] documented in this encounter Visit Diagnoses Not on filedocumented in this encounter
--- OUTSIDE RECORDS SUMMARY | 2024-05-24 15:32 | XMS_ITS | Encounter Summary ---
Author Organization [facility] Address [address] [place] [address] Care Team Providers Care Polisher Balance Screwhead Name Role Phone Unavailable Primary Care Provider Unavailabl e Encounter Details Date Type Department Care Team (Late st Contact Info) Description 01/17/2002 16:53 EDT Hospital Encounter [facility] [address] [place] [address] Shannan Vieyra MD Social History Tobacco Use Types Packs/Day Years Used Date Smoking Tobacco: Never Smokeless Tobacco: Never Alcohol Use Standard Drinks/Week Comments No 0 (1 standard drink = 0.6 oz pur e alcohol) [facility] Utilities Answer Date Recorded In the past 12 months has [employer], gas, oil, or water company threatened [...]
--- OUTSIDE RECORDS SUMMARY | 2024-05-24 15:32 | XMS_ITS | Encounter Summary ---
Author Organization [facility] Address [address] [place] [address] Care Team Providers Care Stringed Instrument Tuner Name Role Phone Unavailable Primary Care Provider Unavailabl e Encounter Details Date Type Department Care Team (Latest Contact Info) Description 03/27/2001 12:28 EDT Hospital Encounter [facility] Emergency Department - [facility] [address], [place] [address] Emergency, Default, MD Discharge Disposition: Home or [...] Procedure Name Priority Date/Time Associated Diagnosis Comments QUANT BETA HCG, Routine 03/27/2001 13:40 EDT HEMAGRAM & DIFF Routine 03/27/2001 12:39 EDT SURGICAL PATHOLOGY Routine 03/27/2001 0:00 EDT documented in this encounter Results * HCG (03/27/2001 13:40 EDT) HCG 250 mIU/ml [facility] Comment: <4 = Negative 4-10 = Borderline, recommend repeat. 03/27/2001 13:4 0 EDT 03/27/2001 13:40 EDT Default Emergency CHEMISTRY & BLOOD G ORDERABLES [facility] [address] [place] [address] * (ABNORMAL) HEMAGRAM & DIFF (03/27/2001 12:39 EDT) WBC 6.25 4.0 - 12.4 K/cmm [facility] RBC 4.65 3.86 - 5.04 M/cmm [facility] Hemoglobin 13.3 11.6 - 15.2 gm/dl [facility] HCT 38.6 34.9 - 44.4 % [facility] MCV 83 81 - 98 fl [facility] MCH 28.7 26.7 - 33.3 pg [facility] MCHC 34.5 32.1 - 35.9 gm/dl [facility] PLT 205 141 - 320 K/cmm [facility] RDW-CV 13.6 11.7 - 14.6 % [facility] % Neutrophils 43.7(L) 45.5 - 79.7 % [facility] % Lymphocytes 45.4 15.0 - 46.8 % [facility] % Monocytes 7.3 1.8 - 12.0 % [facility] % Eosinophils 3.0 0.6 - 6.9 % [facility] % Basophils 0.6 0.2 - 1.4 % [facility] ABS Neutrophils 2.73 2.20 - 8.85 K/cmm [facility] ABS Lymphs 2.84 1.09 - 3.30 K/cmm [facility] ABS Monocytes 0.46 0.1 - 0.8 K/cmm [facility] ABS Eosinophils 0.19 0.03 - 0.61 K/cmm [facility] ABS Basophils 0.04 0.01 - 0.11 K/cmm [facility] Type of Diff: Automated [facility] 03/27/2001 12:3 9 EDT 03/27/2001 12:39 EDT Default Emergency HISTORICAL LAB FOR SQ LOAD [facility] [address] [place] [address] * SURGICAL PATHOLOGY (03/27/2001 0:00 EDT) Pathology Report: SURGICAL PATHOLOGY REPORT Reports generated via electronic interface contain original data; however they are lacking the format of the original report. Caution should be taken when reading/interpreti ng unformatted reports. Name: ? DORIS KERR ? Accession #: ? [id number] ? : ? 1980 (Age: 21) ??F ? Collect Date: ? 03/27/2001 ? Location: ? ED ? Receive Date: ? 03/28/2001 ? Provider: VITALY MONTALVO MD Copy to: ? Final Pathologic Diagnosis: ? Uterine contents, evacuation: - Degenerated and hydropic chorionic villi, and decidua. ??See comment. Comment: ? The hydropic nature of the villi is probably secondary to degeneration; however, the differential includes molar . ??Flow cytometry, therefore, has been ordered on this specimen. ??Please see separate flow cytometry report. (Dr. Erickson)/d Document reviewed and electronically signed by: Humaira Erickson MD Report ??Date: 04/04/2001 13:35 By the signature above, the attending physician certifies that he/she has personally conducted a gross and/or microscopic examination of the described specimens and rendered or confirmed the above diagnosis. Specimen(s) Received: ? Products of conception Clinical History: ? Spontaneous , 11 wk gest with SAB and cramping; LMP 01/04/01 Gross Description: ? Received in formalin labelled Copen are multiple cardoza-red spongy membranous, diffusely hemorrhagic soft tissue fragments aggregating 5.0 x 5.0 x 2.0 cm. ??No parts are grossly identified. ??Floor Sanding Machine Operator sections are submitted as (A1) and (A2). (Etienne Nicole)/tmg DNA FLOW CYTOMETRY RESULTS ? Date Ordered: ? 04/04/2001 ? Status: ?? Signed Out ?Date Complete: ? 04/07/2001 ? By: ??Odessa Nava ? Date Reported: ? 04/07/2001 ? Interpretation ? Products of conception with entirely DNA diploid cell population. ??See note. Comment ? Note: ??The absence of aneuploidy (specifically triploidy) would support a diagnosis of hydropic abortus given the differential diagnosis. ??An early complete mole cannot ??be excluded solely on the basis of the flow cytometric DNA analysis. ?? Description ? Paraffin embedded tissue block A1; hydropic and degenerated chorionic villi, r/o partial hydatidiform mole. Document reviewed and electronically signed by: ? Gume Roy MD ? Report date: 04/07/2001 By the signature above, the attending physician certifies that he/she has personally conducted a gross and/or microscopic examination of the described specimens and rendered or confirmed the above diagnosis. End of Report [facility] 03/27/2001 03/28/2001 10: 06 EDT Vitaly Montalvo MD PATHOLOGY ORDERABLE S [facility] [address] [place] [address] documented in this encounter Visit Diagnoses Not on filedocumented in this encounter
--- OUTSIDE RECORDS SUMMARY | 2024-05-24 15:32 | XMS_ITS | Encounter Summary ---
Author Organization [facility] Address [address] [place] [address] Care Team Providers Care Supervisor Insecticide Name Role Phone Unavailable Primary Care Provider Unavailabl e Encounter Details Date Type Department Care Team (Late st Contact Info) Description 03/15/2001 16:52 EDT Hospital Encounter [address] [address] Denice Martinez MD [address] [place] [address], [address] [place] [id number] Discharge Disposition: Auto Discharge Social History Tobacco [...] Procedure Name Priority Date/Time Associated Diagnosis Comments PROFILE Routine 03/15/2001 16:5 8 EDT PROGESTERONE Routine 03/15/2001 16:58 EDT BACTERIAL CULTURE, URINE Routine 03/15/2001 16:58 EDT QUANT BETA HCG, Routine 03/15/2001 16:58 EDT documented in this encounter Results * BACTERIAL CULTURE, URINE (03/15/2001 16:58 EDT) Specimen Description Urine [facility] Result Less than 10,000 CFU/ml Mixed gram positive growth [facility] Report Status Final [id number] [facility] 03/15/2001 16:5 8 EDT 03/15/2001 17:09 EDT Denice Martinez MD MICROBIOLOGY - GENER AL ORDERABLES Performing Organization Address [facility] de Phone Number [facility] [address] [place] [address] * PROGESTERONE (03/15/2001 16:58 EDT) Progesterone 6.1 ng/ml [facility] Comment: NON- FEMALES: follicular phase: 0.2-1.4 ng/ml luteal phase: 3.3-25.6 ng/ml mid luteal phase: 4.4-28.0 ng/ml postmenopausal: <0.1-0.7 ng/ml FEMALES: first trimester: 11.2-90.0 ng/ml second trimester: 25.6-89.4 ng/ml third trimester: 48.4-422.5 ng/ml ECTOPIC PREGNANCIES: consult pathologist 03/15/2001 16:5 8 EDT 03/15/2001 17:09 EDT Denice Martinez MD CHEMISTRY & BLOOD GA S ORDERABLES Performing Organization Address [facility] de Phone Number [facility] [address] [place] [address] * HCG (03/15/2001 16:58 EDT) HCG 8849 mIU/ml [facility] Comment: <4 = Negative 4-10 = Borderline, recommend repeat. 03/15/2001 16:5 8 EDT 03/15/2001 17:09 EDT Denice Martinez MD CHEMISTRY & BLOOD GA S ORDERABLES Performing Organization Address [facility] Co de Phone Number [facility] [address] [place] [address] * PROFILE (03/15/2001 16:58 EDT) ABO and Rh Type A POS F[facility] Antibody Screen Neg [facility] WBC 6.35 4.0 - 12.4 K/cmm [facility] RBC 4.49 3.86 - 5.04 M/cmm [facility] Hemoglobin 12.4 11.6 - 15.2 gm/dl [facility] HCT 37.3 34.9 - 44.4 % [facility] MCV 83 81 - 98 fl [facility] MCH 27.6 26.7 - 33.3 pg [facility] MCHC 33.3 32.1 - 35.9 gm/dl [facility] PLT 232 141 - 320 K/cmm [facility] RDW-CV 13.8 11.7 - 14.6 % [facility] Hepatitis B Surface Ag Neg [facility] % Neutrophils 46.3 45.5 - 79.7 % [facility] % Lymphocytes 42.6 15.0 - 46.8 % [facility] % Monocytes 8.6 1.8 - 12.0 % [facility] % Eosinophils 2.3 0.6 - 6.9 % [facility] % Basophils 0.2 0.2 - 1.4 % [facility] ABS Neutrophils 2.94 2.20 - 8.85 K/cmm [facility] ABS Lymphs 2.71 1.09 - 3.30 K/cmm [facility] ABS Monocytes 0.55 0.1 - 0.8 K/cmm [facility] ABS Eosinophils 0.14 0.03 - 0.61 K/cmm [facility] ABS Basophils 0.01 0.01 - 0.11 K/cmm [facility] Type of Diff: Automated [facility] Syphilis Sero (RPR) NONREACT. NR Dils [facility] Rubella IgG Scr Antibody detected [facility] 03/15/2001 16:5 8 EDT 03/15/2001 17:09 EDT Denice Martinez MD PACKAGES & DNA PROBE ORDERABLES [facility] [address] [place] [address] documented in this encounter Visit Diagnoses Not on filedocumented in this encounter
[2024-05-29 05:18] LABS: Methylphenidate Negative ng/mL (Cutoff: 10); Ritalinic Acid 1571 ng/mL (Cutoff: 50)
== END 2024-05-24 15:24 | disposition home or self-care (01) ==
LOC: NCHCN 15:23
PROVIDERS: Visit Provider Family Medicine
DX: F90.0 Attention-deficit hyperactivity disorder, predominantly inattentive type (principal)
CPT/HCPCS: 80360

== ENCOUNTER 2024-07-02 20:42 | Outpatient (REF) | payer BC, SELFPAY ==
--- OUTSIDE RECORDS SUMMARY | 2024-07-02 20:51 | XMS_ITS | Encounter Summary ---
Author Organization [facility] Address [address] [place] [address] Care Team Providers Care Flat Sheet Maker Name Role Phone Shannan Vieyra MD Primary Care Provider Unavail Leida Jackson PA-C Primary Care Provi melvin Comfort Zelaya NP Primary Care Provider [phone] Reason for Visit * Reason Onset Date Comments Medications Refill 12/24/2017 Encounter Details Date Type Department Care Team (Late st Contact Info) Description 12/24/2017 Refill [facility] Family Medicine - [address] [phone] Leida Cerda PA-C [address] [facility] [address] [place], [place] [phone] Medications Refill Social History Tobacco Use Types [...] meds with pt. Refills already sent to [facility] 12/23/17 for 90-day supply. documented in this encounter Plan of Treatment Not on file documented as of this encounter Visit Diagnoses Diagnosis Hypothyroidism, iatrogenic Other iatrogenic hypothyroidism documented in this encounter Care Teams Flat Sheet Maker Relationship Specialty Start Date End Date Shannan Vieyra MD PCP - General 04/08/09 03/15/19 Leida Cerda PA-C PCP - General 03/16/19 03/07/22 Comfort Zelaya NP [address] [place] [phone] PCP - General Family Medicine - Primary Care 03/08/22 documented as of this encounter
--- OUTSIDE RECORDS SUMMARY | 2024-07-02 20:51 | XMS_ITS | Encounter Summary ---
Author Organization [facility] Address [address] [place] [address] Care Team Providers Care Mortgage Loan Officer Originator Name Role Phone Comfort Zelaya NP Primary Care Provider [phone] Reason for Visit * Reason Onset Date Comments Appointment Related 07/30/2022 Encounter Details Date Type Department Care Team (Late st Contact Info) Description 07/30/2022 [facility] Breast Imaging Mammography - [address] [address] Alisa Robb Appointment Related Social History Tobacco [...] message to call back breast imaging at [phone]. documented in this encounter Plan of Treatment Not on file documented as of this encounter Visit Diagnoses Not on filedocumented in this encounter Care Teams Mortgage Loan Officer Originator Relationship Specialty Start Date End Date Comfort Zelaya NP [address] [place] [phone] PCP - General Family Medicine - Primary Care 03/08/22 documented as of this encounter
--- OUTSIDE RECORDS SUMMARY | 2024-07-02 20:51 | XMS_ITS | Encounter Summary ---
Author Organization [facility] Address [address] [place] [address] Care Team Providers Care Employment Office Clerk Name Role Phone Leida Cerda PA-C Primary Care Provi melvin Reason for Visit * Reason Onset Date Comments Joint Swelling 04/11/2020 Encounter Details Date Type Department Care Team (Late st Contact Info) Description 04/11/[address] [address] Imani Owens MD [address] [place] [phone] Joint Swelling Social History Tobacco Use [...] Encounter - Imani Owens MD - 04/11/2020 8369 EDT Patient bit by a fly earlier [...] on filedocumented in this encounter Care Teams Employment Office Clerk Relationship Specialty Start Date End Date Leida Cerda PA-C PCP - General 03/16/19 03/07/22 documented as of this encounter
--- OUTSIDE RECORDS SUMMARY | 2024-07-02 20:51 | XMS_ITS | Continuity of Care Document ---
Author Organization [facility] Address [address] [place] [address] Encounter [facility] NBR [id number] Date(s): 05/30/24 - 05/30/24 [facility] [address] [place], [place] [address] Encounter Diagnosis Acute bronchospasm due to viral infection(Discharge Diagnosis) - 05/30/24 Viral infection, unspecified(Discharge Diagnosis) - 05/30/24 Acute bronchospasm(Final) - Viral infection, unspecified(Final) - Discharge Disposition: Home or Self Care Attending Physician: Faby Spear PA-C Allergies, Adverse Reactions, Alerts Substance Criticality Severity Reaction Reaction Severity Status propranolol High criticality Moderate A ctive penicillins High criticality Moderate A ctive sulfa drugs High criticality Moderate A ctive Assessment and Plan Extracted from: Title:[facility] Office Visit Note Author:Faby elizalde PA-C Date:05/30/24 1.??Acute bronchospasm due t o viral infection??J98.01 ??Patient signs and symptoms consistent with a viral induced bronchospasm.?? She is oxygenating at 100%. ??She has diffuse audible??wheezing??but no??clinical signs of pneumonia. ??She has been afebrile.?? She is breathing comfortably at rest when not talking.?? Patient will be started on prednisone. ??Educated patient on correct use of medication and potential adverse effects. ??I also sent a prescription for an albuterol inhaler.?? Encouraged rest,??fluids, uplw-skk-hqropuj cold preps as needed. ??Should she develop any fever, shortness of breath at baseline, worsening cough she should return for recheck Ordered: ProAir HFA 90 mcg/inh inhalation aerosol, 1 puffs, Inhale, every 6 hr, PRN as needed for wheezing, # 8.5 g, 0 Refill(s), Pharmacy: [facility] #[id number] predniSONE 20 mg oral tablet, 40 mg = 2 tab, Oral, Daily, # 10 tab, 0 Refill(s), Pharmacy: [facility] #[id number] ?? Viral infection, unspecified??B34.9 ?? Medications [place] Thyroid 0 Refill(s) Start Date: 05/30/24 Status: Ordered Concerta 0 Refill(s) Start Date: 05/30/24 Status: Ordered EPINEPHrine 0.1 mg injectable kit 0 Refill(s) Start Date: 05/30/24 Status: Ordered norethindrone acetate 0 Refill(s) Start Date: 05/30/24 Status: Ordered predniSONE 20 mg oral tablet 40 mg = 2 tab, Oral, Daily, # 10 tab, 0 Refill(s), Pharmacy: [facility] #[id number] Start Date: 05/30/24 Stop Date: 06/04/24 Status: Ordered ProAir HFA 90 mcg/inh inhalation aerosol 1 puffs, Inhale, every 6 hr, PRN as needed for wheezing, # 8.5 g, 0 Refill(s), Pharmacy: [facility] #[id number] Start Date: 05/30/24 Status: Ordered Vital Signs Most recent to oldest [Reference Range]: 1 Temperature Tympanic [36.6-38.1 Deg C] 3 7.2 Deg C (05/30/24 10:33 AM) Peripheral Pulse Rate [60-100 bpm] 99 bp m (05/30/24 10:33 AM) Respiratory Rate [12-24 br/min] 18 br/mi n (05/30/24 10:33 AM) Blood Pressure [90-140/60-90 mmHg] 150/9 5mmHg *HI* (05/30/24 10:33 AM) Mean Arterial Pressure, Cuff [65-140 mmH g] 113 mmHg (05/30/24 10:33 AM) Physician Outpatient Note * Faby Spear PA-C: PERFORM Event Display: Office Clinic Note Physician Authored Date: [id number] MARCELLO LEUNG :1980 Age:44 years Sex:Female Visit Date:05/30/2024 Chief Complaint onset 10 days ago with body aches, cough, negative covid test. Cough getting worse. ??denies fever at this time. History of Present Illness This is a 44-year-old female who presents for evaluation??of cold symptoms. ??Patient has been sickfor the past 10 days.?? Initially, she had chills, body aches, headache, cough, congestion. ??No sore throat.?? Her chills and bodyaches have improved.?? Over the past few days her??cough has been worsening. ??Her chest feels very tight??and a bit wheezy. ??She does have a history of exercise-induced asthma.?? She has been taking Mucinex and ovqr-lym-kzyszmn cough suppressants without any relief.??She notes that her cough is incessant and keeping her from sleep.?? She feels short of breath during coughing fits but not at rest. ??She feels tight at rest.?? She has taken 2 negative home COVID t est Physical Exam Vitals & Measurements T:??37.2?C ??(Tympanic)?? HR:??99??(Peripheral)?? RR:??18?? BP:??150/95?? SpO2:??100%?? Pain Score:??0?? General: A&O x 3, well-built and hydrated, no acute distress Eyes: PERRLA, no redness or drainage Ears: auditory canals non-tender bilaterally, bilateral TMs translucent and pearly villa Nose: nares moist and patent Mouth: moist mucous membranes without lesions Throat: oropharynx and tonsils without erythema or exudate Neck: supple, no lymphadenopathy Chest: symmetric rise Heart: normal S1S2, no murmurs, rubs, gallops Lungs: equal and symmetric respiratory effort,??intractable coughing,??diffuse expiratory wheezing in all airways without rales or rhonchi, negative egophony or tactile fremitus Assessment/Plan 1.??Acute bronchospasm due to viral infection??J98.01 ??Patient signs and symptoms consistent with a viral induced bronchospasm.?? She is oxygenating at 100%. ??She has diffuse audible??wheezing??but no??clinical signs of pneumonia. ??She has been afebrile.?? She is breathing comfortably at rest when not talking.?? Patient will be started on prednisone. ??Educated patient on correct use of medication and potential adverse effects. ??I also sent a prescription for an albuterol inhaler.?? Encouraged rest,??fluids, iayo-wda-almvlsi cold preps as needed. ??Should she develop any fever, shortness of breath at baseline, worsening cough she should return for recheck Ordered: ProAir HFA 90 mcg/inh inhalation aerosol, 1 puffs, Inhale, every 6 hr, PRN as needed for wheezing, # 8.5 g, 0 Refill(s), Pharmacy: [facility] #[id number] predniSONE 20 mg oral tablet, 40 mg = 2 tab, Oral, Daily, # 10 tab, 0 Refill(s), Pharmacy: [facility] #[id number] ?? Viral infection, unspecified??B34.9 ?? Problem List/Past Medical History Ongoing No qualifying data Historical No qualifying data Medications [place] Thyroid Concerta EPINEPHrine 0.1 mg injectable kit norethindrone acetate predniSONE 20 mg oral tablet, 40 mg= 2 tab, Oral, Daily ProAir HFA 90 mcg/inh inhalation aerosol, 1 puffs, Inhale, every 6 hr, PRN Allergies penicillins propranolol sulfa drugs Electronically Signed on 05/30/2024 11:04 EDT Faby Spear PA-C Insurance Providers Guarantor name: [employer] Plan Information #: 1 Payer: BS PPO Member Number: [id number] Policy Number: MATT Health Plan Information #: 2 Payer: BS PPO Member Number: [id number] Policy Number: MATT
--- OUTSIDE RECORDS SUMMARY | 2024-07-02 20:51 | XMS_ITS | Encounter Summary ---
Author Organization [facility] Address [address] [place] [address] Care Team Providers Care Coordinator Of Health Services Name Role Phone Comfort Zelaya NP Primary Care Provider [phone] Reason for Visit * Reason Onset Date Comments Medication Management 04/26/2023 Encounter Details Date Type Department Care Team (Late st Contact Info) Description 04/26/2023 Telephone [facility] OBGYN Services - [address] [address] Denice Martinez MD [address] [place] [address], Level 4 [place] [address] Medication Management Social History Tobacco [...] Encounter - Cristy Engle RN - 04/26/2023 4083 EDT TC to patient to notify, she verbalizes understanding and will call in a few months to schedule annual visit. * Telephone Encounter - Cristy Engle RN - 04/26/2023 7378 EDT Medication Refill Request Patient/Fax/Surescript Request Medication/Dose/Route/Frequency: norethondrone (MICRONOR) 0.35 mg, prefers 3 mo supply at a time, takes continuously Last office visit: 08/17/22 Pending visit: None. Patient is not yet due. If appointment needed-message left/appointment made: N/A Pharmacy confirmed: [facility] #[id number] AT [facility] Amount filled/# of refills: 2 per MD orders, to last until patient is due for appointment. * Telephone Encounter - Eliza Mendoza - 04/26/2023 4634 EDT Reason for call as described by patient: Pt needs refill of medication. Somehow, pharmacy said theyasked for both epipen and control. She does not need an epipen as she just got one from her PCP, but does still need refill for OCPs. Medication(s) Requested: norethondrone (MICRONOR) 0.35 mg, prefers 3 mo supply at a time, takes continuously. Preferred Pharmacy: [facility] #[id number] AT [facility] Is patient out of medication? Yes Is [...] documented as of this encounter Care Teams Coordinator Of Health Services Relationship Specialty Start Date End Date Comfort Zelaya NP [address] [place] [phone] PCP - General Family Medicine - Primary Care 03/08/22 documented as of this encounter
--- OUTSIDE RECORDS SUMMARY | 2024-07-02 20:51 | XMS_ITS | Encounter Summary ---
Author Organization [facility] Address [address] [place] [address] Care Team Providers Care General Ledger Accountant Name Role Phone Comfort Zelaya NP Primary Care Provider [phone] Encounter Details Date Type Department Care Team (Late st Contact Info) Description 07/07/2023 Lab Requisition [facility] Pathology & Laboratory Medicine - [address] [address] Outr Resulting Lab, Provider Social History Tobacco [...] 2.8 - 5.3 pg/mL 07/07/2023 18:10 EDT [facility] Blood VENOUS BLOOD / Unknown 07/06/2023 15:25 EDT 07/07/2023 17:36 EDT Provider Outr Resulting Lab CHEMISTRY & BLOOD GAS ORDERABLES [facility] [address] [place] [address] documented in this encounter Visit Diagnoses Not on filedocumented in this encounter Care Teams General Ledger Accountant Relationship Specialty Start Date End Date Comfort Zelaya NP [address] [place] [phone] PCP - General Family Medicine - Primary Care 03/08/22 documented as of this encounter
--- OUTSIDE RECORDS SUMMARY | 2024-07-02 20:51 | XMS_ITS | Encounter Summary ---
Author Organization [facility] Address [address] [place] [address] Care Team Providers Care Methods Examiner Name Role Phone Comfort Zelaya NP Primary Care Provider [phone] Encounter Details Date Type Department Care Team (Late st Contact Info) Description 04/25/2023 Orders Only [facility] [place] [address] Comfort Garcia, DAXA Bee sting (Primary Dx) [...] documented as of this encounter Care Teams Methods Examiner Relationship Specialty Start Date End Date Comfort Zelaya NP [address] [place] [phone] PCP - General Family Medicine - Primary Care 03/08/22 documented as of this encounter
--- OUTSIDE RECORDS SUMMARY | 2024-07-02 20:51 | XMS_ITS | Encounter Summary ---
Author Organization [facility] Address [address] [place] [address] Care Team Providers Care Nurse Informaticist Name Role Phone Shannan Vieyra MD Primary Care Provider Unavail able Reason for Visit * Reason Comments Follow-up here for follow up; due for labs Encounter Details Date Type Department Care Team (Late st Contact Info) Description 07/31/2018 9:30 EDT Office Visit [place] [phone] Leida Cerda PA-C [address] [phone] Hypothyroidism, iatrogenic (Primary Dx); Essential hypertension Discharge [...] Notes * Leida Cerda PA - 07/31/2018 6230 EDT Subjective: Patient ID: Doris Kerr is [...] for this visit: Hypothyroidism, iatrogenic - Thyroid Floyd Continue armour thyroid Essential hypertension - Basic [...] presents to office for venipuncture for Thyroid Floyd, BMP with a diagnosis of E03.2, I10per [...] 140 136 - 145 mEq/L 07/31/2018 14:23 [facility] Potassium 4.8 3.5 - 5.0 mEq/L 07/31/2018 14:23 [facility] Chloride 107 96 - 110 mEq/L 07/31/2018 14:23 [facility] CO2 25 22 - 32 mEq/L 07/31/2018 14:23 [facility] BUN 15 10 - 26 mg/dl 07/31/2018 14:23 [facility] Creatinine 0.87 0.52 - 1.04 mg/dl 07/31/2018 14:23 [facility] GFR, Calculated 85 >60 ml/min/1.7 3m2 07/31/2018 14:23 [facility] Comment: eGFR calculated using CKD-EPI equation for non Americans. Multiply eGFR by 1.16 for Americans. Calcium 9.6 8.5 - 10.5 mg/dl 07/31/2018 14:23 [facility] Calculated Calcium 9.3 8.5 - 10.5 mg/dl 07/31/2018 14:23 EDT [facility] Glucose, Serum 93 70 - 100 mg/dl 07/31/2018 14:23 EDT [facility] Fasting? Unknown 07/31/2018 14:23 EDT [facility] Blood specimen (specimen) BLOOD SPECIMEN / Unknown 07/31/2018 10:18 EDT 07/31/2018 14:05 EDT Leida Cerda PA-C CHEMISTRY & BLOOD GAS ORDERABLES Performing Organization Address [facility] Co de Phone Number [facility] [address] [place] [address] * (ABNORMAL) THYROID CASCADE (07/31/2018 10:18 EDT) [...] & BLOOD GAS ORDERABLES Performing Organization Address [facility] Co de Phone Number [facility] [address] [place] [address] documented in this encounter Visit Diagnoses Diagnosis [...] documented as of this encounter Care Teams Nurse Informaticist Relationship Specialty Start Date End Date Shannan Vieyra MD PCP - General 04/08/09 03/15/19 documented as of this encounter
--- OUTSIDE RECORDS SUMMARY | 2024-07-02 20:51 | XMS_ITS | Encounter Summary ---
Author Organization [facility] Address [address] [place] [address] Care Team Providers Care Human Geography Instructor Name Role Phone Comfort Zelaya NP Primary Care Provider [phone] Reason for Visit * Reason Onset Date Comments Medications Refill 05/19/2022 Encounter Details Date Type Department Care Team (Late st Contact Info) Description 05/19/2022 Telephone [facility] OBGYN Services - [address] [address] Denice Martinez MD [address] [place] [address], [address] [place] [address] Medications Refill Social History Tobacco [...] described by patient: out of OCP, leaves [facility] tomorrow, 05/20 at 1030 and needs refilled beforehand. Medication(s) Requested: Brandi Preferred Pharmacy: [facility] Is patient out of medication? Yes Is it ok to leave a detailed message? Yes Arianne Ortez 05/19/2022 16:56 documented in this encounter Plan of Treatment Not on file documented as of this encounter Visit Diagnoses Not on filedocumented in this encounter Care Teams Human Geography Instructor Relationship Specialty Start Date End Date Comfort Zelaya NP [address] [place] [phone] PCP - General Family Medicine - Primary Care 03/08/22 documented as of this encounter
--- OUTSIDE RECORDS SUMMARY | 2024-07-02 20:51 | XMS_ITS | Encounter Summary ---
Author Organization [facility] Address [address] [place] [address] Care Team Providers Care Cartridge Maker Name Role Phone Leida Cerda PA-C Primary Care Provi melvin Reason for Visit * Reason Onset Date Comments Medications Refill 02/08/2020 Encounter Details Date Type Department Care Team (Late st Contact Info) Description 02/08/[address] [address] Leida Cerda PA-C 402 [facility] [address] [place] [address] Medications Refill Social History Tobacco [...] EDT Medication(s) Requested: Thyroid, pork Preferred Pharmacy: [facility] Is patient out of medication? Unknown [...] them during the current situation Preferred pharmacy: [id number] - [facility] [place] - [address] [facility] AT [facility] OF [facility] documented in this encounter Plan of Treatment Not on file documented as of this encounter Visit Diagnoses Diagnosis Hypothyroidism, iatrogenic- Primary Other iatrogenic hypothyroidism documented in this encounter Discontinued Medications Medication Sig Discontinue Reason Start Date End Da te Thyroid, Pork, 240 mg tabletIndications:Hypothy roidism, iatrogenic Take 240 mg by mouth daily. Reorder 11/20/2019 02/08/2020 documented as of this encounter Care Teams Cartridge Maker Relationship Specialty Start Date End Date Leida Cerda PA-C PCP - General 03/16/19 03/07/22 documented as of this encounter
--- OUTSIDE RECORDS SUMMARY | 2024-07-02 20:51 | XMS_ITS | Encounter Summary ---
Author Organization [facility] Address [address] [place] [address] Care Team Providers Care Lead Trainer Name Role Phone Comfort Zelaya NP Primary Care Provider [phone] Encounter Details Date Type Department Care Team (Late st Contact Info) Description 08/27/2022 16:00 EST Phlebotomy Only [facility] 2 Phlebotomy [address] [place] [address] Chief Program Officer, Acc Phlebotomy History of Graves' disease Social [...] 0.47 - 4.68 mIU/L 08/27/2022 18:08 EST [facility] Blood VENOUS BLOOD / Unknown Venipuncture / Unknown 08/27/2022 16:07 EST 08/27/2022 16:38 EST Narrative [facility] - 08/27/2022 18:08 EST The results of this assay can be falsely lowered due to the consumption of Biotin. Denice Martinez MD CHEMISTRY & BLOOD GA S ORDERABLES [facility] [address] [place] [address] documented in this encounter Visit Diagnoses Diagnosis History of Graves' disease Personal history of other endocrine, metabolic, and immunity disorders documented in this encounter Care Teams Lead Trainer Relationship Specialty Start Date End Date Comfort Zelaya NP [address] [place] [phone] PCP - General Family Medicine - Primary Care 03/08/22 documented as of this encounter
--- OUTSIDE RECORDS SUMMARY | 2024-07-02 20:51 | XMS_ITS | Encounter Summary ---
Author Organization [facility] Address [address] [place] [address] Care Team Providers Care Self Propelled Dredge Operator Name Role Phone Leida Cerda PA-C Primary Care Provi melvin Reason for Visit * Reason Comments Hypothyroidism Encounter Details Date Type Department Care Team (Late st Contact Info) Description 06/25/2020 9:00 EDT Office Visit [address] [phone] Leida Cerda PA-C 402 [facility] [address] [place] [address] Hypothyroidism, iatrogenic (Primary Dx); Need [...] Due for thyroid check New OCP per blocker heated metal forms due to BP elevation Now on progesterone [...] 97 - 169 ng/dL 06/25/2020 16:37 EDT [facility] Blood VENOUS BLOOD / Unknown Venipuncture / Unknown 06/25/2020 9:58 EDT 06/25/2020 9:58 EDT Leida Cerda PA-C CHEMISTRY & BLOOD GAS ORDERABLES Performing Organization Address City/[facility]/ZIP Co de Phone Number [facility] [address] [place] [address] * T4 FREE (06/25/2020 9:58 EDT) T4, Free 2.0 0.8 - 2.2 ng/dL 06/25/2020 15:40 EDT [facility] Blood VENOUS BLOOD / Unknown Venipuncture / Unknown 06/25/2020 9:58 EDT 06/25/2020 9:58 EDT Leida Cerda PA-C CHEMISTRY & BLOOD GAS ORDERABLES Performing Organization Address [facility] Co de Phone Number [facility] [address] [place] [address] * BASIC METABOLIC PANEL (BMP) (06/25/2020 9:58 EDT) Sodium 141 136 - 145 mEq/L 06/25/2020 14:23 [facility] Potassium 4.8 3.5 - 5.0 mEq/L 06/25/2020 14:23 [facility] Chloride 105 96 - 110 mEq/L 06/25/2020 14:23 [facility] CO2 Total 23 22 - 32 mEq/L 06/25/2020 14:23 [facility] Glucose 96 70 - 100 mg/dL 06/25/2020 14:23 [facility] Calcium 10.1 8.5 - 10.5 mg/dL 06/25/2020 14:23 [facility] Calculated Calcium 9.6 8.5 - 10.5 mg/dL 06/25/2020 14:23 [facility] BUN 17 10 - 26 mg/dL 06/25/2020 14:23 [facility] Creatinine 0.53 0.52 - 1.04 mg/dL 06/25/2020 14:23 [facility] eGFR 120 >60 mL/min/1.7 3m2 06/25/2020 14:23 EDT [facility] Comment:eGFR calculated usin g CKD-EPI equation for non- Americans. Multiply eGFR by 1.16 for patients. Blood VENOUS BLOOD / Unknown Venipuncture / Unknown 06/25/2020 9:58 EDT 06/25/2020 9:58 EDT Leida Cerda PA-C CHEMISTRY & BLOOD GAS ORDERABLES Performing Organization Address [facility] Co de Phone Number [facility] [address] [place] [address] * (ABNORMAL) THYROID CASCADE (06/25/2020 9:58 EDT) TSH <0.02(L) 0.47 - 4.68 uIU/mL 06/25/2020 14:56 EDT [facility] Blood VENOUS BLOOD / Unknown Venipuncture / Unknown 06/25/2020 9:58 EDT 06/25/2020 9:58 EDT Narrative [facility] - 06/25/2020 14:56 EDT NOTE: TSH [place] is not recommended for patients in which pituitary or hypothalamic disorders are suspected. The results of this assay can be falsely lowered due to the consumption of Biotin. Leida Cerda PA-C CHEMISTRY & BLOOD GAS ORDERABLES Performing Organization Address [facility] Co de Phone Number [facility] [address] [place] [address] documented in this encounter Visit Diagnoses Diagnosis [...] 20 documented in this encounter Care Teams Self Propelled Dredge Operator Relationship Specialty Start Date End Date Leida Cerda PA-C PCP - General 03/16/19 03/07/22 documented as of this encounter
--- OUTSIDE RECORDS SUMMARY | 2024-07-02 20:51 | XMS_ITS | Encounter Summary ---
Author Organization [facility] Address [address] [place] [address] Care Team Providers Care Rayon Winder Name Role Phone Comfort Zelaya NP Primary Care Provider [phone] Reason for Referral * Radiology Services (Routine/Next Available) - New Request Specialty Diagnoses / Procedures Referred By Julianne gallo Referred To Contact Diagnoses Mass of left breast, unspecified quadrant Procedures MA BREAST DIAGNOSTIC ARIANNA BILATERAL MA BREAST DIAGNOSTIC BILATERAL Denice Martinez MD [address] [phone] [facility] Referral ID Status Reason Start Date Expiration Date V isits Requested Visits Authorized [id number] New Request 07/28/2022 1 1 Reason for Visit * Radiology Services (Routine/Next Available) - New Request Specialty Diagnoses / Procedures Referred By Julianne gallo Referred To Contact Diagnoses Mass of left breast, unspecified quadrant Procedures MA BREAST DIAGNOSTIC ARIANNA BILATERAL MA BREAST DIAGNOSTIC BILATERAL Denice Martinez MD [address] [place] [phone] [facility] Referral ID Status Reason Start Date Expiration Date V isits Requested Visits Authorized [id number] New Request 07/28/2022 1 1 Encounter Details Date Type Department Care Team (Latest Contact Info) Description 08/17/2022 13:50 EST - 08/17/2022 23:59 EST [facility] Breast Imaging Mammography - [address] [address] Mass of left breast, unspecified quadrant Discharge [...] of any clinically suspicious palpable finding. The geographic information systems manager discussed the radiologist's interpretation and follow up [...] quadrant documented in this encounter Care Teams Rayon Winder Relationship Specialty Start Date End Date Comfort Zelaya NP [address] [place] [phone] PCP - General Family Medicine - Primary Care 03/08/22 documented as of this encounter
--- OUTSIDE RECORDS SUMMARY | 2024-07-02 20:51 | XMS_ITS | Encounter Summary ---
Author Organization [facility] Address [address] [place] [address] Care Team Providers Care Unix Engineer Name Role Phone Comfort Zelaya NP Primary Care Provider [phone] Reason for Referral * Medication Prior Authorization (Urgent) - Authorized Specialty Diagnoses / Procedures Referred By Contac t Referred To Contact Obstetrics & Gynecology Diagnoses Hypothyroidism, unspecified type Denice Martinez MD [address] [place] [address] [address] [place] [address] [place] [address] [address] [place] [address] Referral ID Status Reason Start Date Expiration Date Visits Requested Visits Authorized [id number] Authorized Medication Prior Authorization 09/01/20 22 1 1 Question Answer Medication to be Prior Authorized: armour thyroid Comments The purpose of this request is to inform precertification staff that the requested service needs to be reviewed for prior-authorization. Encounter Details Date Type Department Care Team (Late st Contact Info) Description 09/01/2022 Orders Only [facility] [place] [address] Comfort Garcia RN Hypothyroidism, unspecified type (Primary [...] Primary documented in this encounter Care Teams Unix Engineer Relationship Specialty Start Date End Date Comfort Zelaya NP [address] [place] [phone] PCP - General Family Medicine - Primary Care 03/08/22 documented as of this encounter
--- OUTSIDE RECORDS SUMMARY | 2024-07-02 20:51 | XMS_ITS | Encounter Summary ---
Author Organization [facility] Address [address] [place] [address] Care Team Providers Care Physical Education Teacher Name Role Phone Comfort Zelaya NP Primary Care Provider [phone] Reason for Visit * Reason Onset Date Comments Appointment Related 07/28/2022 Encounter Details Date Type Department Care Team (Late st Contact Info) Description 07/28/2022 [facility] Breast Imaging Mammography - [address] [address] Alisa Robb Appointment Related Social History Tobacco [...] on filedocumented in this encounter Care Teams Physical Education Teacher Relationship Specialty Start Date End Date Comfort Zelaya NP [address] [place] [phone] PCP - General Family Medicine - Primary Care 03/08/22 documented as of this encounter
--- OUTSIDE RECORDS SUMMARY | 2024-07-02 20:51 | XMS_ITS | Encounter Summary ---
Author Organization [facility] Address [address] [place] [address] Care Team Providers Care Advertising Strategist Name Role Phone Comfort Zelaya NP Primary Care Provider [phone] Reason for Visit * Reason Comments Well Woman Exam Encounter Details Date Type Department Care Team (Late st Contact Info) Description 08/27/2022 15:30 EST Office Visit [facility] OBGYN Services - [address] [address] Denice Martinez MD [address] [place] [address], [address] [place] [address] History of Graves' disease (Primary [...] NEURO: AAO x3, normal mood and affect. Transfer Controller: BREAST: No palpable masses or tenderness. No [...] 0.47 - 4.68 mIU/L 08/27/2022 18:08 EST [facility] Blood VENOUS BLOOD / Unknown Venipuncture / Unknown 08/27/2022 16:07 EST 08/27/2022 16:38 EST Narrative [facility] - 08/27/2022 18:08 EST The results of this assay can be falsely lowered due to the consumption of Biotin. Denice Martinez MD CHEMISTRY & BLOOD GA S ORDERABLES [facility] [address] [place] [address] * PAP TEST (10/19/2019 0:00 EST) Papanicolaou [...] documented as of this encounter Care Teams Advertising Strategist Relationship Specialty Start Date End Date Comfort Zelaya NP [address] [place] [phone] PCP - General Family Medicine - Primary Care 03/08/22 documented as of this encounter
--- OUTSIDE RECORDS SUMMARY | 2024-07-02 20:51 | XMS_ITS | Encounter Summary ---
Author Organization [facility] Address [address] [place] [address] Care Team Providers Care Juice Mixer Name Role Phone Leida Cerda PA-C Primary Care Provi melvin Comfort Zelaya NP Primary Care Provider [phone] Reason for Visit * Reason Onset Date Comments Medication Reaction 04/14/2020 Abdominal Pain 04/14/2020 Diarrhea 04/14/2020 Encounter Details Date Type Department Care Team (Late st Contact Info) Description 04/14/[address] [address] Leida Cerda PA-C 402 [facility] [address] [place] [address] Medication Reaction; Abdominal Pain; Diarrhea [...] on filedocumented in this encounter Care Teams Juice Mixer Relationship Specialty Start Date End Date Leida Cerda PA-C PCP - General 03/16/19 03/07/22 Comfort Zelaya NP [address] [place] [phone] PCP - General Family Medicine - Primary Care 03/08/22 documented as of this encounter
--- OUTSIDE RECORDS SUMMARY | 2024-07-02 20:51 | XMS_ITS | Encounter Summary ---
Author Organization [facility] Address [address] [place] [address] Care Team Providers Care Jailer Chief Name Role Phone Comfort Zelaya NP Primary Care Provider [phone] Encounter Details Date Type Department Care Team (Late st Contact Info) Description 05/18/2023 Lab Requisition [facility] Pathology & [place] [address] Outr Resulting Lab, Provider Social History Tobacco [...] 2.8 - 5.3 pg/mL 05/18/2023 22:11 EDT [facility] Blood VENOUS BLOOD / Unknown 05/18/2023 11:40 EDT 05/18/2023 21:35 EDT Provider Outr Resulting Lab CHEMISTRY & BLOOD GAS ORDERABLES [facility] [address] [place] [address] documented in this encounter Visit Diagnoses Not on filedocumented in this encounter Care Teams Jailer Chief Relationship Specialty Start Date End Date Comfort Zelaya NP [address] [place] [phone] PCP - General Family Medicine - Primary Care 03/08/22 documented as of this encounter
--- OUTSIDE RECORDS SUMMARY | 2024-07-02 20:51 | XMS_ITS | Encounter Summary ---
Author Organization [facility] Address [address] [place] [address] Care Team Providers Care Registration Clerk Name Role Phone Leida Man PA-C Primary Care Provi melvin Comfort Zelaya NP Primary Care Provider [phone] Reason for Visit * Reason Onset Date Comments Medications Refill 06/05/2020 Encounter Details Date Type Department Care Team (Late st Contact Info) Description 06/05/[address] [phone] Leida Man PA-C 402 [facility] [address] [place], [place] [phone] Medications Refill Social History Tobacco Use Types [...] Medication(s) Requested: Thyroid,Pork,240 mg tablet Preferred Pharmacy: [facility] Is patient out of medication?yes Last Refill [...] documented as of this encounter Care Teams Registration Clerk Relationship Specialty Start Date End Date Leida Man PA-C PCP - General 03/16/19 03/07/22 Comfort Zelaya NP [address] [place] [phone] PCP - General Family Medicine - Primary Care 03/08/22 documented as of this encounter
--- OUTSIDE RECORDS SUMMARY | 2024-07-02 20:51 | XMS_ITS | Clinical Summary ---
Author Organization [facility] Address [address] [place] [address] Care Team Providers Care Powder Operator Name Role Phone Comfort Zelaya NP Primary Care Provider [phone] Allergies Active Allergy Reactions Criticality Noted Date [...] = 0.6 oz pur e alcohol) [facility] Utilities Answer Date Recorded In the [...] Imaging System with Manual Evaluation 11/14/2023 19:11 [facility] Specimen Adequacy Satisfactory for Evaluation - transformation zone component present 11/14/2023 19:11 [facility] General Categorization Negative for intraepithelial lesion or malignancy 11/14/2023 19:11 [facility] Attestation . 11/14/2023 19:11 [facility] at 1911 Clinical History Screening 11/14/19 24 19:11 [facility] HPV The result for the Human Papillomavirus (HPV) Detection-High Risk Types is Negative. No E6 or E7 mRNA is detected from HPV types 16,18,31,33,35,39 ,45,51,52,56,58,5 9,66, and 68 by wet roller mediated amplification.Misty ting was performed on specimen [id number] and was resulted on 11/14/2023 191 EST by LUAN, LAB INSTRUMENT RESULTS IN 11/14/2023 19:11 [facility] Performing Lab [facility] 11/14/2023 19:11 [facility] Scanned Images 11/14/2023 19:11 [facility] Pap Test CERVIX UTERI STRUCTURE / Unknown 10/28/2023 14:05 EST 10/31/2023 12:13 EST Denice Martinez MD PATHOLOGY ORDERABLES [facility] [address] [place] [address] * MA BREAST DIAGNOSTIC ARIANNA BILATERAL (08/17/2022 [...] of any clinically suspicious palpable finding. The service agent discussed the radiologist's interpretation and follow up [...] Advance Directives For more information, please contact: [phone] * Full Code (Latest Code Status on File) Date Activated Date Inactivated Comments 04/19/2014 9:24 04/19/2014 18:04 Care Teams Powder Operator Relationship Specialty Start Date End Date Comfort Zelaya NP [address] [place] [phone] PCP - General Family Medicine - Primary Care 03/08/22
--- OUTSIDE RECORDS SUMMARY | 2024-07-02 20:51 | XMS_ITS | Encounter Summary ---
Author Organization [facility] Address [address] [place] [address] Care Team Providers Care Rubber Press Operator Name Role Phone Comfort Zelaya NP Primary Care Provider [phone] Encounter Details Date Type Department Care Team (Late st Contact Info) Description 02/17/2024 Lab Requisition [facility] Pathology & Laboratory Medicine - [address] [address] Outr Resulting Lab, Provider Social History Tobacco Use Types Packs/Day Years Used Date Smoking Tobacco: Never Smokeless Tobacco: Never Alcohol Use Standard Drinks/Week Comments No 0 (1 standard drink = 0.6 oz pur e alcohol) [facility] Utilities Answer Date Recorded In the past [...] 97 - 169 ng/dL 02/17/2024 18:30 EDT [facility] Blood VENOUS BLOOD / Unknown 02/16/2024 16:00 EDT 02/17/2024 17:42 EDT Provider Outr Resulting Lab CHEMISTRY & BLOOD GAS ORDERABLES [facility] [address] [place] [address] documented in this encounter Visit Diagnoses Not on filedocumented in this encounter Care Teams Rubber Press Operator Relationship Specialty Start Date End Date Comfort Zelaya NP [address] [place] [phone] PCP - General Family Medicine - Primary Care 03/08/22 documented as of this encounter
--- OUTSIDE RECORDS SUMMARY | 2024-07-02 20:51 | XMS_ITS | Encounter Summary ---
Author Organization [facility] Address [address] [place] [address] Care Team Providers Care Process Safety Specialist Name Role Phone Comfort Zelaya NP Primary Care Provider [phone] Encounter Details Date Type Department Care Team (Late st Contact Info) Description 04/15/2023 Lab Requisition [facility] Pathology & Laboratory Medicine - [address] [address] Outr Resulting Lab, Provider Social History Tobacco [...] 97 - 169 ng/dL 04/15/2023 22:16 EDT [facility] Blood VENOUS BLOOD / Unknown 04/15/2023 8:55 EDT 04/15/2023 21:31 EDT Provider Outr Resulting Lab CHEMISTRY & BLOOD GAS ORDERABLES [facility] [address] [place] [address] documented in this encounter Visit Diagnoses Not on filedocumented in this encounter Care Teams Process Safety Specialist Relationship Specialty Start Date End Date Comfort Zelaya NP [address] [place] [phone] PCP - General Family Medicine - Primary Care 03/08/22 documented as of this encounter
--- OUTSIDE RECORDS SUMMARY | 2024-07-02 20:51 | XMS_ITS | Encounter Summary ---
Author Organization [facility] Address [address] [place] [address] Care Team Providers Care Department Manager Name Role Phone Shannan Vieyra MD Primary Care Provider Unavail Leida Jackson PA-C Primary Care Provi melvin Comfort Zelaya NP Primary Care Provider [phone] Reason for Visit * Reason Onset Date Comments Medications Refill 07/22/2018 Encounter Details Date Type Department Care Team (Late st Contact Info) Description 07/22/2018 Refill [facility] Family Medicine [address] [phone] Leida Man PA-C 402 [facility] [address] [place], [place] [phone] Medications Refill Social History Tobacco Use Types [...] Encounter - Alisha Nino RN - 07/24/2018 0755 EDT Requested Prescriptions Signed Prescriptions Disp Refills [...] documented as of this encounter Care Teams Department Manager Relationship Specialty Start Date End Date Shannan Vieyra MD PCP - General 04/08/09 03/15/19 Leida Man PA-C PCP - General 03/16/19 03/07/22 Comfort Zelaya NP [address] [place] [phone] PCP - General Family Medicine - Primary Care 03/08/22 documented as of this encounter
--- OUTSIDE RECORDS SUMMARY | 2024-07-02 20:51 | XMS_ITS | Encounter Summary ---
Author Organization [facility] Address [address] [place] [address] Care Team Providers Care Commodity Supervisor Name Role Phone Leida Cerda PA-C Primary Care Provi melvin Encounter Details Date Type Department Care Team (Late st Contact Info) Description 06/30/2020 Orders Only [facility] Family Medicine [address] [phone] Leida Cerda PA-C 402 [facility] [address] [place] [address] Hypothyroidism, iatrogenic (Primary Dx) Social [...] documented as of this encounter Care Teams Commodity Supervisor Relationship Specialty Start Date End Date Leida Cerda PA-C PCP - General 03/16/19 03/07/22 documented as of this encounter
--- OUTSIDE RECORDS SUMMARY | 2024-07-02 20:51 | XMS_ITS | Encounter Summary ---
Author Organization [facility] Address [address] [place] [address] Care Team Providers Care Entomology Teacher Name Role Phone Comfort Zelaya NP Primary Care Provider [phone] Reason for Visit * Reason Comments Annual Exam Encounter Details Date Type Department Care Team (Late st Contact Info) Description 10/28/2023 13:30 EST Office Visit [facility] OBGYN Services - [address] [address] Denice Martinez MD 111 [facility] [address] [place] [address] Well woman exam with routine gynecological exam (Primary Dx) Social History Tobacco Use Types Packs/Day Years Used Date Smoking Tobacco: Never Smokeless Tobacco: Never Alcohol Use Standard Drinks/Week Comments No 0 (1 standard drink = 0.6 oz pur e alcohol) [facility] Utilities Answer Date Recorded In the past 12 months has [employer], gas, oil, or water [employer] threatened to shut off services in your [...] - 10/28/2023 13:30 EST Call for Mammogram [phone] documented in this encounter Ordered Prescriptions Prescription [...] NEURO: AAO x3, normal mood and affect. Last Sawyer: BREAST: No palpable masses or tenderness. No [...] Risk types, PCR Negative Negative 11/14/2023 19:11 [facility] Comment:No E6 or E7 mRNA is detected from HPV types 16,18,31,33,35,39,45,51,52,56,58,59,66, and 68 by paste up artist apprentice mediated amplification. Pap Test CERVIX UTERI STRUCTURE / Unknown 10/28/2023 14:05 EST 11/11/2023 14:23 EST Denice Martinez MD MICROBIOLOGY - GENER AL ORDERABLES Performing Organization Address City/State/[facility] Co de Phone Number [facility] [address] [place] [address] * PAP TEST (10/28/2023 14:05 EST) Specimens A. Cervix and/or Endocervix , ThinPrep Imaging System with Manual Evaluation 11/14/2023 19:11 [facility] Specimen Adequacy Satisfactory for Evaluation - transformation zone component present 11/14/2023 19:11 [facility] General Categorization Negative for intraepithelial lesion or malignancy 11/14/2023 19:11 [facility] Attestation . 11/14/2023 19:11 [facility] at 1911 Clinical History Screening 11/14/19 19:11 EST [facility] HPV The result for the Human Papillomavirus (HPV) Detection-High Risk Types is Negative. No E6 or E7 mRNA is detected from HPV types 16,18,31,33,35,39 ,45,51,52,56,58,5 9,66, and 68 by paste up artist apprentice mediated amplification.Misty ting was performed on specimen [id number] and was resulted on 11/14/2023 1911 EST by LUAN, LAB INSTRUMENT RESULTS IN 11/14/2023 19:11 [facility] Performing Lab [facility] 11/14/2023 19:11 [facility] Scanned Images 11/14/2023 19:11 [facility] Pap Test CERVIX UTERI STRUCTURE / Unknown 10/28/2023 14:05 EST 10/31/2023 12:13 EST Denice Martinez MD PATHOLOGY ORDERABLES [facility] [address] [place] [address] documented in this encounter Visit Diagnoses Diagnosis [...] mg added in this encounter Care Teams Entomology Teacher Relationship Specialty Start Date End Date Comfort Zelaya NP [address] [place] [phone] PCP - General Family Medicine - Primary Care 03/08/22 documented as of this encounter
--- OUTSIDE RECORDS SUMMARY | 2024-07-02 20:51 | XMS_ITS | Encounter Summary ---
Author Organization [facility] Address [address] [place] [address] Care Team Providers Care Recruiting Assistant Name Role Phone Leida Cerda PA-C Primary Care Provi melvin Comfort Zelaya NP Primary Care Provider [phone] Reason for Visit * Reason Onset Date Comments Medications Refill 04/14/2020 Encounter Details Date Type Department Care Team (Late st Contact Info) Description 04/14/[address] [phone] Leida Cerda PA-C 402 [facility] [address] [place], [place] [phone] Medications Refill Social History Tobacco Use Types [...] medications: EPINEPHrine (EPIPEN) 0.3 mg/0.3 mL injection [Leida Cerda PA-C] [id number] AT [facility] documented in this encounter Plan of [...] documented as of this encounter Care Teams Recruiting Assistant Relationship Specialty Start Date End Date Leida Cerda PA-C PCP - General 03/16/19 03/07/22 Comfort Zelaya NP [address] [place] [phone] PCP - General Family Medicine - Primary Care 03/08/22 documented as of this encounter
--- OUTSIDE RECORDS SUMMARY | 2024-07-02 20:51 | XMS_ITS | Encounter Summary ---
Author Organization [facility] Address [address] [place] [address] Care Team Providers Care Milk Pasteurizer Name Role Phone Comfort Zelaya DOSIER OPERATOR Primary Care Provider [phone] Reason for Visit * Reason Onset Date Comments Pre-visit Orders 03/26/2022 Encounter Details Date Type Department Care Team (Late st Contact Info) Description 03/26/[address] [address] Comfort Zelaya NP [address] [place] [address] Pre-visit Orders Social History Tobacco [...] 0.47 - 4.68 mIU/L 04/25/2022 10:46 EDT [facility] Blood VENOUS BLOOD / Unknown Venipuncture / Unknown 04/25/2022 9:49 EDT 04/25/2022 9:51 EDT Narrative [facility] - 04/25/2022 10:46 EDT NOTE: The results of this assay can be falsely lowered due to the consumption of Biotin. Comfort Zelaya NP CHEMISTRY & BLOOD GA S ORDERABLES [facility] [address] [place] [address] documented in this encounter Visit Diagnoses Diagnosis Hypothyroidism, iatrogenic- Primary Other iatrogenic hypothyroidism documented in this encounter Care Teams Milk Pasteurizer Relationship Specialty Start Date End Date Comfort Zelaya NP [address] [place] [phone] PCP - General Family Medicine - Primary Care 03/08/22 documented as of this encounter
--- OUTSIDE RECORDS SUMMARY | 2024-07-02 20:51 | XMS_ITS | Encounter Summary ---
Author Organization [facility] Address [address] [place] [address] Care Team Providers Care Set Decorator Name Role Phone Shannan Vieyra MD Primary Care Provider Unavail able Reason for Visit * Reason Comments Follow-up BP follow up; Flu Vaccine declinse flu vaccine Encounter Details Date Type Department Care Team (Late st Contact Info) Description 09/05/2018 9:30 EST Office Visit [facility] Medicine [place] [phone] Leida Cerda PA-C 402 [facility] [address] [place], [place] [phone] Elevated blood pressure reading (Primary Dx); Bee [...] Notes * Leida Cerda PA - 09/05/2018 3434 EST Subjective: Patient ID: Doris Kerr is an 38 y.o. female. Chief Complaint Patient presents with ??? Follow-up BP follow up; ??? Flu Vaccine declinse flu vaccine HPI BP f/u as it was high at last visit. Had it checked at the director of enrollment office since then and it was ok. Feels well, no chest pain, racing, palpitations, SOB. Eats clean with no added salt. Recently adjusted [place] Thyroid and will re check TSH in [...] documented as of this encounter Care Teams Set Decorator Relationship Specialty Start Date End Date Shannan Vieyra MD PCP - General 04/08/09 03/15/19 documented as of this encounter
--- OUTSIDE RECORDS SUMMARY | 2024-07-02 20:51 | XMS_ITS | Encounter Summary ---
Author Organization [facility] Address [address] [place] [address] Care Team Providers Care Feeder Operator Automatic Name Role Phone Leida Cerda PA-C Primary Care Provi melvin Reason for Visit * Reason Onset Date Comments Medications Refill 11/19/2019 Encounter Details Date Type Department Care Team (Late st Contact Info) Description 11/19/[address] [phone] Leida Cerda PA-C 402 [facility] [address] [place] [address] Medications Refill Social History Tobacco [...] work. Lab ordered [facility] can go [facility] * Telephone Encounter - Sheila Edmond RN - 11/20/2019 0845 EST Last refill: 08/07/18 Last OV note, 09/05/18: Recently adjusted [place] Thyroid and will re check TSH in another month ortwo I do not see that this was ever rechecked. To PCP to advise on refill, labs, OV * Telephone Encounter - Rima Urbina - 11/19/2019 1802 EST Medication(s) Requested: [place] Thyroid - per patient message Preferred Pharmacy: [facility] Is patient out of medication? Yes [...] 0.47 - 4.68 uIU/mL 06/25/2020 14:56 EDT [facility] Blood VENOUS BLOOD / Unknown Venipuncture / Unknown 06/25/2020 9:58 EDT 06/25/2020 9:58 EDT Narrative [facility] - 06/25/2020 14:56 EDT NOTE: TSH [place] is not recommended for patients in which pituitary or hypothalamic disorders are suspected. The results of this assay can be falsely lowered due to the consumption of Biotin. Leida Cerda PA-C CHEMISTRY & BLOOD GAS ORDERABLES [facility] [address] [place] [address] documented in this encounter Visit Diagnoses Diagnosis Hypothyroidism, iatrogenic- Primary Other iatrogenic hypothyroidism documented in this encounter Discontinued Medications Medication Sig Discontinue Reason Start Date End Da te Thyroid, Pork, 240 mg tablet Take 240 mg by mouth daily. Reorder 08/07/2018 11/20/2019 documented as of this encounter Care Teams Feeder Operator Automatic Relationship Specialty Start Date End Date Leida Cerda PA-C PCP - General 03/16/19 03/07/22 documented as of this encounter
--- OUTSIDE RECORDS SUMMARY | 2024-07-02 20:51 | XMS_ITS | Encounter Summary ---
Author Organization [facility] Address [address] [place] [address] Care Team Providers Care Applied Psychology Professor Name Role Phone Leida Cerda PA-C Primary Care Provi melvin Encounter Details Date Type Department Care Team (Late st Contact Info) Description 10/24/[address] [phone] Leida Cerda PA-C [address] [facility] [address] [place] [address] Social History Tobacco Use Types [...] on filedocumented in this encounter Care Teams Applied Psychology Professor Relationship Specialty Start Date End Date Leida Cerda PA-C PCP - General 03/16/19 03/07/22 documented as of this encounter
--- OUTSIDE RECORDS SUMMARY | 2024-07-02 20:51 | XMS_ITS | Encounter Summary ---
Author Organization [facility] Address [address] [place] [address] Care Team Providers Care Clinical Support Tech Name Role Phone Shannan Vieyra MD Primary Care Provider Unavail able Encounter Details Date Type Department Care Team (Late st Contact Info) Description 08/07/2018 Orders Only [facility] Medicine - [place] [phone] Leida Cerda PA-C 402 [facility] [address] [place], [place] [address] Hypothyroidism, iatrogenic (Primary Dx) Social History Tobacco [...] documented as of this encounter Care Teams Clinical Support Tech Relationship Specialty Start Date End Date Shannan Vieyra MD PCP - General 04/08/09 03/15/19 documented as of this encounter
--- OUTSIDE RECORDS SUMMARY | 2024-07-02 20:51 | XMS_ITS | Encounter Summary ---
Author Organization [facility] Address [address] [place] [address] Care Team Providers Care Press Tender Name Role Phone Shannan Vieyra MD Primary Care Provider Unavail able Encounter Details Date Type Department Care Team (Late st Contact Info) Description 08/01/2018 Orders Only [facility] Medicine [place] [phone] Leida Cerda PA-C [address] [place] [address] [address] [place], [place] [address] Hypothyroidism, iatrogenic (Primary Dx) Social History Tobacco [...] hypothyroidism documented in this encounter Care Teams Press Tender Relationship Specialty Start Date End Date Shannan Vieyra MD PCP - General 04/08/09 03/15/19 documented as of this encounter
--- OUTSIDE RECORDS SUMMARY | 2024-07-02 20:51 | XMS_ITS | Encounter Summary ---
Author Organization [facility] Address [address] [place] [address] Care Team Providers Care Cmm Programmer Name Role Phone Comfort Zelaya NP Primary Care Provider [phone] Encounter Details Date Type Department Care Team (Late st Contact Info) Description 04/25/2022 9:45 EDT Phlebotomy Only [facility] 2 Phlebotomy [address] [place], [place] [phone] Raimann Machine Operator, Acc Phlebotomy Hypothyroidism, iatrogenic Social History Tobacco [...] 97 - 169 ng/dL 04/25/2022 12:01 EDT [facility] Blood VENOUS BLOOD / Unknown Venipuncture / Unknown 04/25/2022 9:49 EDT 04/25/2022 9:51 EDT Comfort Zelaya NP CHEMISTRY & BLOOD GA S ORDERABLES Performing Organization Address [facility] Co de Phone Number [facility] [address] [place] [address] * T4 FREE (04/25/2022 9:49 EDT) T4, Free 1.8 0.8 - 2.2 ng/dL 04/25/2022 11:21 EDT [facility] Blood VENOUS BLOOD / Unknown Venipuncture / Unknown 04/25/2022 9:49 EDT 04/25/2022 9:51 EDT Comfort Zelaya NP CHEMISTRY & BLOOD GA S ORDERABLES Performing Organization Address City/[facility] Co de Phone Number [facility] [address] [place] [address] * (ABNORMAL) THYROID CASCADE (04/25/2022 9:49 EDT) TSH <0.02(L) 0.47 - 4.68 mIU/L 04/25/2022 10:46 EDT [facility] Blood VENOUS BLOOD / Unknown Venipuncture / Unknown 04/25/2022 9:49 EDT 04/25/2022 9:51 EDT Narrative [facility] - 04/25/2022 10:46 EDT NOTE: The results of this assay can be falsely lowered due to the consumption of Biotin. Comfort Zelaya NP CHEMISTRY & BLOOD GA S ORDERABLES [facility] [address] [place] [address] documented in this encounter Visit Diagnoses Diagnosis Hypothyroidism, iatrogenic Other iatrogenic hypothyroidism documented in this encounter Care Teams Cmm Programmer Relationship Specialty Start Date End Date Comfort Zelaya NP [address] [place] [phone] PCP - General Family Medicine - Primary Care 03/08/22 documented as of this encounter
--- OUTSIDE RECORDS SUMMARY | 2024-07-02 20:51 | XMS_ITS | Encounter Summary ---
Author Organization [facility] Address [address] [place] [address] Care Team Providers Care Shaper Setter Name Role Phone Comfort Zelaya NP Primary Care Provider [phone] Reason for Referral * Radiology Services (Routine/Next Available) - Authorization Not Required Specialty Diagnoses / Procedures Referred By Contac t Referred To Contact Diagnoses Mass of left breast, unspecified quadrant Procedures US BREAST LIMITED LEFT US BREAST DIAGNOSTIC Denice Martinez MD [address] [place] [phone] [facility] Referral ID Status Reason Start Date Expiration Date Visits Requested Visits Authorized [id number] Authorization Not Required 2 1 1 Reason for Visit * Radiology Services (Routine/Next Available) - Authorization Not Required Specialty Diagnoses / Procedures Referred By Julianne gallo Referred To Contact Diagnoses Mass of left breast, unspecified quadrant Procedures US BREAST LIMITED LEFT US BREAST DIAGNOSTIC Denice Martinez MD [address] [place] [phone] [facility] Referral ID Status Reason Start Date Expiration Date Visits Requested Visits Authorized [id number] Authorization Not Required 2 1 1 Encounter Details Date Type Department Care Team (Latest Contact Info) Description 08/17/2022 13:50 EST - 08/17/2022 23:59 EST Hospital [facility] Breast [facility] Ultrasound - [address] [address] Mass of left breast, unspecified quadrant Discharge [...] of any clinically suspicious palpable finding. The weeder thinner discussed the radiologist's interpretation and follow up [...] quadrant documented in this encounter Care Teams Shaper Setter Relationship Specialty Start Date End Date Comfort Zelaya NP [address] [place] [phone] PCP - General Family Medicine - Primary Care 03/08/22 documented as of this encounter
--- OUTSIDE RECORDS SUMMARY | 2024-07-02 20:51 | XMS_ITS | Encounter Summary ---
Author Organization [facility] Address [address] [place] [address] Care Team Providers Care Tobacco Stripper Name Role Phone Leida Cerda PA-C Primary Care Provi melvin Reason for Referral * Radiology Services (Routine) - Specialty Report Received Specialty Diagnoses / Procedures Referred By Contac t Referred To Contact Diagnoses Injury of left wrist, initial encounter Procedures XR WRIST LEFT 3 OR MORE VIEWS Leida Cerda PA-C [address] [address] Referral ID Status Reason Start Date Expiration Date V isits Requested Visits Authorized [id number] Specialty Report Received 04/09/2021 1 1 Reason for Visit * Radiology Services (Routine) - Specialty Report Received Specialty Diagnoses / Procedures Referred By Contac t Referred To Contact Diagnoses Injury of left wrist, initial encounter Procedures XR WRIST LEFT 3 OR MORE VIEWS Leida Cerda PA-C [address] [address] Referral ID Status Reason Start Date Expiration Date V isits Requested Visits Authorized [id number] Specialty Report Received 04/09/2021 1 1 Encounter Details Date Type Department Care Team (Latest Contact Info) Description 04/10/2021 15:58 EDT - 04/10/2021 23:59 EDT Hospital Encounter [facility] [address] [place] [address] Injury of left wrist, initial encounter Discharge [...] encounter documented in this encounter Care Teams Tobacco Stripper Relationship Specialty Start Date End Date Leida Cerda PA-C PCP - General 03/16/19 03/07/22 documented as of this encounter
--- OUTSIDE RECORDS SUMMARY | 2024-07-02 20:51 | XMS_ITS | Encounter Summary ---
Author Organization [facility] Address [address] [place] [address] Care Team Providers Care Sail Maker Name Role Phone Comfort Zelaya NP Primary Care Provider [phone] Reason for Visit * Reason Onset Date Comments Appointment Related 07/28/2022 Encounter Details Date Type Department Care Team (Late st Contact Info) Description 07/28/2022 [facility] Breast Imaging Mammography - [address] [address] Mitzi Prado Appointment Related Social History Tobacco [...] message to call back breast imaging at [phone] documented in this encounter Plan of Treatment Not on file documented as of this encounter Visit Diagnoses Not on filedocumented in this encounter Care Teams Sail Maker Relationship Specialty Start Date End Date Comfort Zelaya NP [address] [place] [phone] PCP - General Family Medicine - Primary Care 03/08/22 documented as of this encounter
--- OUTSIDE RECORDS SUMMARY | 2024-07-02 20:51 | XMS_ITS | Referral Summary ---
Author Organization [facility] Address [address] [place] [address] Care Team Providers Care Systems Integration Analyst Name Role Phone Comfort Zelaya NP Primary Care Provider [phone] Allergies Active Allergy Reactions Criticality Noted Date [...] drink = 0.6 oz pur e alcohol) [facility] Utilities Answer Date Recorded In the past 12 months has e [employer], gas, oil, or water [employer] threatened to shut off services in your [...] Imaging System with Manual Evaluation 11/14/2023 19:11 [facility] Specimen Adequacy Satisfactory for Evaluation - transformation zone component present 11/14/2023 19:11 [facility] General Categorization Negative for intraepithelial lesion or malignancy 11/14/2023 19:11 [facility] Attestation . 11/14/2023 19:11 [facility] at 1911 Clinical History Screening 11/14/19 24 19:11 [facility] HPV The result for the Human Papillomavirus (HPV) Detection-High Risk Types is Negative. No E6 or E7 mRNA is detected from HPV types 16,18,31,33,35,39 ,45,51,52,56,58,5 9,66, and 68 by cocktail server mediated amplification.Misty ting was performed on specimen [id number] and was resulted on 11/14/2023 1911 EST by LUAN, LAB INSTRUMENT RESULTS IN 11/14/2023 19:11 EST [facility] Performing Lab [facility] 11/14/2023 19:11 EST [facility] Scanned Images 11/14/2023 19:11 EST [facility] Pap Test CERVIX UTERI STRUCTURE / Unknown 10/28/2023 14:05 EST 10/31/2023 12:13 EST Denice Martinez MD PATHOLOGY ORDERABLES [facility] [address] [place] [address] * MA BREAST DIAGNOSTIC ARIANNA BILATERAL (08/17/2022 [...] of any clinically suspicious palpable finding. The furnace mechanic discussed the radiologist's interpretation and follow up [...] Advance Directives For more information, please contact: [phone] * Full Code (Latest Code Status on File) Date Activated Date Inactivated Comments 04/19/2014 9:24 04/19/2014 18:04 Care Teams Systems Integration Analyst Relationship Specialty Start Date End Date Comfort Zelaya NP [address] [place] [phone] PCP - General Family Medicine - Primary Care 03/08/22
--- OUTSIDE RECORDS SUMMARY | 2024-07-02 20:51 | XMS_ITS | Encounter Summary ---
Author Organization [facility] Address [address] [place] [address] Care Team Providers Care Avionics Systems Integration Specialist Name Role Phone Shannan Vieyra MD Primary Care Provider Unavail able Encounter Details Date Type Department Care Team (Late st Contact Info) Description 07/31/[address] [facility] Family Medicine - [place] [phone] Leida Cerda PA-C [address] [facility] [address] [place], [place] [phone] Social History Tobacco Use Types Packs/Day Years [...] 0.8 - 2.2 ng/dl 07/31/2018 15:43 EDT [facility] BLOOD SPECIMEN / Unknown 07/31/2018 10:18 EDT 07/31/2018 14:05 EDT Leida Cerda PA-C CHEMISTRY & BLOOD GAS ORDERABLES [facility] [address] [place] [address] documented in this encounter Visit Diagnoses Not on filedocumented in this encounter Care Teams Avionics Systems Integration Specialist Relationship Specialty Start Date End Date Shannan Vieyra MD PCP - General 04/08/09 03/15/19 documented as of this encounter
--- OUTSIDE RECORDS SUMMARY | 2024-07-02 20:51 | XMS_ITS | Encounter Summary ---
Author Organization [facility] Address [address] [place] [address] Care Team Providers Care Ice Puller Name Role Phone Lieda Man PA-C Primary Care Provi melvin Glynn Salazar NP Primary Care Provider [phone] Reason for Visit * Reason Onset Date Comments Medications Refill 08/10/2021 Medications Refill 03/26/2022 Encounter Details Date Type Department Care Team (Late st Contact Info) Description 08/10/2021 Telephone [facility] Family Medicine [address] [address] Leida Man PA-C 402 [facility] [address] [place], [place] [phone] Medications Refill; Medications Refill Social History Tobacco [...] encounter Miscellaneous Notes * Telephone Encounter - Canidda Tyler RN - 03/26/2022 1617 EDT Lab [...] 03/26/2022 documented in this encounter Care Teams Ice Puller Relationship Specialty Start Date End Date Leida Man PA-C PCP - General 03/16/19 03/07/22 Glynn Salazar NP [address] [place] [phone] PCP - General Family Medicine - Primary Care 03/08/22 documented as of this encounter
--- OUTSIDE RECORDS SUMMARY | 2024-07-02 20:52 | XMS_ITS | Encounter Summary ---
Author Organization [facility] Address [address] [place] [address] Care Team Providers Care Time Study Technologist Name Role Phone Shannan Vieyra MD Primary [...] 23:51 EDT - 03/01/2014 3:09 EDT Emergency [facility] Emergency Department - Main [place] [address] [place], [place] [phone] Annie Pulido MD MPH [address] [facility], Level 1 [place] [phone] Emergency, MD Keli Biliary calculus [...] AFTER YOUR VISIT TO THE EMERGENCY ROOM ([place]) documented in this encounter Medications at Time [...] the service. Dinora Glaser 03/01/2014 0:21 Doris Kerr is a 34 y.o. female with a [...] HEMATOLOGY & PF4 ORDERABLES Performing Organization Address City/[facility]/ZIP Co de Phone Number [facility] [address] [place] [address] * HEMAGRAM (03/01/2014 0:35 EDT) WBC 8.79 [...] Performing Organization Address [facility] Co de Phone Number [facility] [address] [place] [address] * LIPASE (03/01/2014 0:35 EDT) Pathologist [facility] Lipase 85 0 - 250 U/L [facility] Blood specimen (specimen) 03/01/2014 0:35 EDT 03/01/2014 0:58 EDT Annie Pulido MD MPH CHEMISTRY & BLOOD GAS ORDERABLES Performing Organization Address City/[facility]/ZIP Co de Phone Number [facility] [address] [place] [address] * HEPATIC FUNCTION PANEL (ALB,ALK PHOS,ALT,AST,DBIL,TOT YOGI,TOT PROT) (03/01/2014 0:35 EDT) Pathologist [facility] Albumin 3.9 3.4 - 4.9 g/dl [facility] [...] Performing Organization Address [facility] Co de Phone Number [facility] [address] [place] [address] * (ABNORMAL) BASIC METABOLIC PANEL (03/01/2014 0:35 [...] & BLOOD GAS ORDERABLES Performing Organization Address City/[facility] Co de Phone Number [facility] [address] [place] [address] documented in this encounter Visit Diagnoses Diagnosis [...] 03/01/2014 documented in this encounter Care Teams Time Study Technologist Relationship Specialty Start Date End Date Shannan Vieyra MD PCP - General 04/08/09 03/15/19 documented as of this encounter
--- OUTSIDE RECORDS SUMMARY | 2024-07-02 20:52 | XMS_ITS | Encounter Summary ---
Author Organization [facility] Address [address] [place] [phone] Care Team Providers Care Clinical Product Manager Name Role Phone Shannan Vieyra MD Primary Care Provider Unavail able Reason for Visit * Reason Comments Tick Removal Follow up to Tick bi te, and treatment Encounter Details Date Type Department Care Team (Late st Contact Info) Description 02/26/2016 14:00 EDT Office Visit [facility] [address] [phone] Pranay Vazquez NP [address] [place] [phone] Erythema migrans (Lyme disease) (Primary Dx) [...] one dose she took a few days ago.[place] wierd the last time she took it [...] as of this encounter Care Teams Clinical Product Manager Relationship Specialty Start Date End Date Shannan Vieyra MD PCP - General 04/08/09 03/15/19 documented as of this encounter
--- OUTSIDE RECORDS SUMMARY | 2024-07-02 20:52 | XMS_ITS | Encounter Summary ---
Author Organization [facility] Address [address] [place] [phone] Care Team Providers Care Pharmacy Scheduler Name Role Phone Shannan Vieyra MD Primary Care Provider Unavail able Reason for Visit * Reason Onset Date Comments Appointment Related 04/17/2014 Encounter Details Date Type Department Care Team (Late st Contact Info) Description 04/17/[address] [phone] Shannan Vieyra MD Appointment Related Social History [...] on filedocumented in this encounter Care Teams Pharmacy Scheduler Relationship Specialty Start Date End Date Shannan Vieyra MD PCP - General 04/08/09 03/15/19 documented as of this encounter
--- OUTSIDE RECORDS SUMMARY | 2024-07-02 20:52 | XMS_ITS | Encounter Summary ---
Author Organization [facility] Address [address] [place] [address] Care Team Providers Care Automation Technician Name Role Phone Shannan Vieyra MD Primary Care Provider Unavail able Encounter Details Date Type Department Care Team (Late st Contact Info) Description 11/06/2012 Orders Only [facility] Medicine [address] [phone] Leida Cerda PA-C [address] [facility] [address] [place], [place] [phone] Other iatrogenic hypothyroidism (Primary Dx) Social History [...] Notes * Leida Cerda PA - 11/06/2012 1400 EST Phone call with pt. TSH is now high on 90mg of [place] Thyroid. Her TSH was low on 120 [...] Primary documented in this encounter Care Teams Automation Technician Relationship Specialty Start Date End Date Shannan Vieyra MD PCP - General 04/08/09 03/15/19 documented as of this encounter
--- OUTSIDE RECORDS SUMMARY | 2024-07-02 20:52 | XMS_ITS | Encounter Summary ---
Author Organization [facility] Address [address] [place] [address] Care Team Providers Care Physical Therapy Assistant Name Role Phone Shannan Vieyra MD [...] 1:50 EST - 10/27/2013 6:03 EST Emergency [facility] Emergency Department - Main [address] [phone] Leida Isaacs PA-C [address] [place] [phone] Keily Mosley PA-C [address] [place] [phone] Emergency, MD Keli Abdominal pain (Primary [...] Everywhere. * ABDOMINAL PAIN: AFTER YOUR VISIT (THAI) documented in this encounter Medications at Time [...] with pt. Ambulatory d/c to home. * Leida Isaacs PA - 10/27/2013 0439 EST DOS: [...] Ketones Neg Neg [facility] Specific [place] 1.015 1.001 - 1.035 [facility] Blood Neg Neg [facility] pH 6.5 4.6 - 8.0 [facility] Protein Neg Neg [facility] Urobilinogen 0.2 0.2 - 1.0 E.U./dl [facility] Nitrite Neg Neg [facility] Leuk Esterase Trace(A) Neg KATHYA [facility] shipping weigher ID [id number] [facility] Comment:Test performed at Em ergency Department Urine specimen (specimen) 10/27/2013 5:13 EST 10/27/2013 5:14 EST Leida ARAUJO-C POINT OF CARE T EST ORDERABLES [facility] [address] [place] [address] * ED/WICC ADD-ON (10/27/2013 4:29 EST) Tests to be added BUN AND CREATININE ,ELECTROLY VICTORIANO,GLUCOS E, SERUM,YIN GRAM WITH DIFFERENTI AL,LIPASE, LIVER PANEL [facility] Number for problems [id number] (ED) [facility] 10/27/2013 4:29 EST 10/27/2013 4:29 EST [facility] HEMATOLOGY & PF 4 ORDERABLES Performing Organization Address City/[facility] Co de Phone Number [facility] [address] [place] [address] * DIFFERENTIAL (10/27/2013 2:19 EST) % Neutrophils [...] of Diff: Automated [facility] 10/27/2013 2:19 EST 10/27/2013 2:31 EST [facility] HEMATOLOGY & PF 4 ORDERABLES [facility] [address] [place] [address] * HEMAGRAM (10/27/2013 2:19 EST) WBC 8.16 [...] & PF 4 ORDERABLES Performing Organization Address [facility] Co de Phone Number [facility] [address] [place] [address] * GLUCOSE, SERUM (10/27/2013 2:19 EST) Glucose, Serum 99 70 - 100 mg/dl [facility] 10/27/2013 2:19 EST 10/27/2013 2:31 EST Leida GOMEZC CHEMISTRY & BLO OD GAS ORDERABLES Performing Organization Address [facility] Phone Number [facility] [address] [place] [address] * (ABNORMAL) ELECTROLYTES (10/27/2013 2:19 EST) Sodium 135(L) 136 - 145 mEq/L [facility] Potassium 4.2 3.5 - 5.0 mEq/L [facility] Chloride 98 96 - 110 mEq/L [facility] CO2 29 24 - 32 mEq/L [facility] 10/27/2013 2:19 EST 10/27/2013 2:31 EST Leida ARAUJO-C CHEMISTRY & BLO OD GAS ORDERABLES Performing Organization Address [facility] Co de Phone Number [facility] [address] [place] [address] * (ABNORMAL) LIVER FUNCTION TESTS (10/27/2013 2:19 EST) Albumin 4.2 3.4 - 4.9 g/dl [facility] Total Protein 7.6 6.5 - 8.3 g/dl [facility] Total Alkaline Phosphatase 66 38 - 126 U/L [facility] ALT 40 9 - 52 U/L [facility] AST 23 15 - 46 U/L [facility] Unconjugated Bilirubin 0.0(L) 0.1 - 1.1 mg/dl [facility] Conjugated Bilirubin 0.0 0.0 - 0.3 mg/dl [facility] Bilirubin, Total <0.5 0.2 - 1.3 mg/dl [facility] 10/27/2013 2:19 EST 10/27/2013 2:31 EST Leida Andrei [facility] PA-C CHEMISTRY & BLO OD GAS ORDERABLES Performing Organization Address [facility] de Phone Number [facility] [address] [place] [address] * LIPASE (10/27/2013 2:19 EST) Lipase 156 0 - 250 U/L [facility] 10/27/2013 2:19 EST 10/27/2013 2:31 EST Leida Andrei [employer] PA-C CHEMISTRY & BLO OD GAS ORDERABLES Performing Organization Address [facility] de Phone Number [facility] [address] [place] [address] * CREATININE (10/27/2013 2:19 EST) Creatinine 0.69 0.52 - 1.04 mg/dl [facility] GFR, Calculated >60 >60 ml/min/1.7 3m2 [facility] 10/27/2013 2:19 EST 10/27/2013 2:31 EST [facility] [employer] PA-C CHEMISTRY & BLO OD GAS ORDERABLES Performing Organization Address [facility] Co de Phone Number [facility] [address] [place] [address] * BUN (10/27/2013 2:19 EST) BUN 16 10 - 26 mg/dl [facility] 10/27/2013 2:19 EST 10/27/2013 2:31 EST Leida Isaacs PA-C CHEMISTRY & BLO OD GAS ORDERABLES Performing Organization Address [facility] Co de Phone Number [facility] [address] [place] [address] * HOLD SST (10/27/2013 2:19 EST) Hold SST Hold for further testing. Specimen will be held for 5 days. [facility] Blood specimen (specimen) 10/27/2013 2:19 EST 10/27/2013 2:31 EST Leida Forbes [employer] PA-C LAB INFO SERVIC E AND SUPPORT & PHONE RESULT Performing Organization Address [facility] de Phone Number [facility] [address] [place] [address] * HOLD PURPLE TOP (10/27/2013 2:19 EST) Hold Purple Top EDTA for hematology will be discarded after 48 hours, differential not available after 12 hours. [facility] Blood specimen (specimen) 10/27/2013 2:19 EST 10/27/2013 2:31 EST Leida Andrei [employer] PA-C LAB INFO SERVIC E AND SUPPORT & PHONE RESULT Performing Organization Address [facility] de Phone Number [facility] [address] [place] [address] documented in this encounter Visit Diagnoses Diagnosis [...] RN) documented in this encounter Care Teams Physical Therapy Assistant Relationship Specialty Start Date End Date Shannan Vieyra MD PCP - General 04/08/09 03/15/19 documented as of this encounter
--- OUTSIDE RECORDS SUMMARY | 2024-07-02 20:52 | XMS_ITS | Encounter Summary ---
Author Organization [facility] Address [address] [place] [address] Care Team Providers Care Pump Assembler Name Role Phone Shannan Vieyra MD Primary Care Provider Unavail able Reason for Visit * Reason Comments New Patient Visit cholelistiasis on ct Encounter Details Date Type Department Care Team (Late st Contact Info) Description 04/09/2014 11:30 EDT Office Visit [facility] General Surgery - [address] [phone] Mouna Maradiaga MD [address] [place] [address], Level [address] [place] [phone] Cholelithiasis (Primary Dx) Discharge Disposition: [...] EDT) 04/11/2014 10:2 7 EDT Scan 2 Is Project Manager PROCEDURE/MINOR TERRENCE GICAL ORDERABLES * EKG 12-LEAD (04/09/2014 12:32 EDT) 04/09/2014 12:3 2 EDT Narrative FA EKG - 04/10/2014 10:21 EDT ?[facility] ? Test Date: ?2014-04-09 Pat Name: ? DORIS KERR ? Department: ?? MP5 Gen Surg ? Room: ? Gender: ? F ?Inbound Call Center Representative: ?? [id number] : ?1980 ? Requested By: MOUNA MARADIAGA MD Order Number: [id number] ? Reading MD: ?? CLARY MCCOY MD ? Measurements Intervals ?[place] ? Rate: ? 71 ? P: ?13 TX: ? 182 ?QRS: ?93 QRSD: ? 79 [...] Date: 2014-04-09 Pat Name: DORIS KERR Department: [facility] Gen Surg Room: Gender: F Inbound Call Center Representative: [id number] : 1980 Requested By: MOUNA MARADIAGA MD Order Number: [id number] Reading MD: CLARY MCCOY MD Measurements Intervals [place] Rate: 71 P: 13 TX: 182 QRS: 93 QRSD: 79 T: 39 QT: 346 QTc: 377 Interpretive Statements SINUS RHYTHM BORDERLINE RIGHT AXIS DEVIATION Compared to ECG 09/25/2007 11:27:30 Sinus rhythm now present I reviewed the tracing and agreed or edited the report. ElectronicallySigned On 04-10-14 10:21:00 EDT by CLARY MCCOY MD. Mouna Maradiaga MD CARDIAC ECG ORDERABL ES [facility] EKG documented in this encounter Visit Diagnoses Diagnosis Cholelithiasis- Primary Calculus of gallbladder without mention of cholecystitis or obstruction documented in this encounter Care Teams Pump Assembler Relationship Specialty Start Date End Date Shannan Vieyra MD PCP - General 04/08/09 03/15/19 documented as of this encounter
--- OUTSIDE RECORDS SUMMARY | 2024-07-02 20:52 | XMS_ITS | Encounter Summary ---
Author Organization [facility] Address [address] [place] [address] Care Team Providers Care Corrugator Helper Name Role Phone Shannan Vieyra MD Primary Care Provider Unavail able Reason for Visit * Reason Onset Date Comments Abdominal Pain 03/08/2013 Encounter Details Date Type Department Care Team (Late st Contact Info) Description 03/08/2013 Telephone [facility] Family Medicine - [address] [phone] Maria Guadalupe Wolfe MD [address] [place] [phone] Abdominal Pain Social History Tobacco Use Types [...] - Maria Guadalupe Wolfe MD - 03/08/2013 2769 EDT CC: abdominal pain S: Pt calls [...] incidentally noted in the patient's . A/P: Doirs Kerr is a 33y F with known [...] on filedocumented in this encounter Care Teams Corrugator Helper Relationship Specialty Start Date End Date Shannan Vieyra MD PCP - General 04/08/09 03/15/19 documented as of this encounter
--- OUTSIDE RECORDS SUMMARY | 2024-07-02 20:52 | XMS_ITS | Encounter Summary ---
Author Organization [facility] Address [address] [place] [address] Care Team Providers Care Ground Mixer Name Role Phone Shannan Vieyra MD Primary Care Provider Unavail able Reason for Visit * Reason Comments Otalgia Encounter Details Date Type Department Care Team (Latest Contact Info) Description 02/17/2015 18:21 EDT - 02/17/2015 20:10 EDT Hospital Encounter [facility] Ur[facility] Care - [address] [phone] Miguel Rogel MD [address] [place] [phone] Otitis media, right (Primary Dx) Discharge [...] sent through Care Everywhere. * OTITIS MEDIA (MALTESE) documented in this encounter Medications at Time [...] of further medications. Upon departure from [facility], the patient's pain was 6 on a zero to ten scale. Condition at departure from the [facility] : Stable Final diagnoses: Otitis media, right Right sided otitis media in the setting of recent URI symptoms. Patient has a penicillin and Bactrim allergy. She was treated with a course of Zithromax. Reviewed symptomatic treatment and indications for follow up. See discharge instructions. No supervision required. [facility] 02/17/2015 21:09 * Mitzi Esteban RN - 02/17/2015 1900 EDT Patient reports [...] 08/24/2016 added in this encounter Care Teams Ground Mixer Relationship Specialty Start Date End Date Shannan Vieyra MD PCP - General 04/08/09 03/15/19 documented as of this encounter
--- OUTSIDE RECORDS SUMMARY | 2024-07-02 20:52 | XMS_ITS | Encounter Summary ---
Author Organization [facility] Address [address] [place] [address] Care Team Providers Care Circular Knife Machine Cutter Name Role Phone Shannan Vieyra MD Primary Care Provider Unavail able Reason for Visit * Reason Onset Date Comments Medications Refill 04/15/2016 Encounter Details Date Type Department Care Team (Late st Contact Info) Description 04/15/2016 Refill [facility] Family Medicine [address] [address] Shannan Vieyra MD Medications Refill Social History [...] Encounter - Alisha Nino RN - 04/15/2016 2822 EDT Requested Prescriptions Signed Prescriptions Disp Refills [...] - 04/15/2016 1322 EDT Medication(s) Requested: Thyroid,Pork ([place] Thyroid)120 mg tablet takes one tab daily;dispense;90;rf;0;Lisinopril-hydrochlorothiazide takes one tab daily;dispense;90;rf;0 Pharmacy: [facility] Last Refill Date: 07.01.16 Last Visit Date: [...] documented as of this encounter Care Teams Circular Knife Machine Cutter Relationship Specialty Start Date End Date Shannan Vieyra MD PCP - General 04/08/09 03/15/19 documented as of this encounter
--- OUTSIDE RECORDS SUMMARY | 2024-07-02 20:52 | XMS_ITS | Encounter Summary ---
Author Organization [facility] Address [address] [place] [address] Care Team Providers Care On Line Csr Name Role Phone Shannan Winter MD Primary Care Provider Unavail able Reason for Visit * Reason Onset Date Comments Medications Refill 09/19/2015 Encounter Details Date Type Department Care Team (Late st Contact Info) Description 09/19/2015 Refill [facility] Family Medicine [address] [address] Shannan Winter MD Medications Refill Social History [...] Encounter - Dionna Caballero, RN - 09/22/2015 0900 EST Requested Prescriptions Signed Prescriptions Disp Refills [...] Telephone Encounter - Christina Lianne - 09/19/2015 165 EST Medication(s) Requested: Armor thyroid 120 mg tab [facility] Last Refill Date: 09/04/2014 Last Visit Date: 09/04/2014 Next Visit Date: Visit date not found Is patient out of medication? yes Lianne Vasquze 09/19/2015 16:51 documented in this encounter Plan [...] documented as of this encounter Care Teams On Line Csr Relationship Specialty Start Date End Date Shannan Winter MD PCP - General 04/08/09 03/15/19 documented as of this encounter
--- OUTSIDE RECORDS SUMMARY | 2024-07-02 20:52 | XMS_ITS | Encounter Summary ---
Author Organization [facility] Address [address] [place] [address] Care Team Providers Care Bonderite Operator Name Role Phone Shannan Vieyra MD Primary Care Provider Unavail able Reason for Visit * Reason Onset Date Comments Tick Removal 02/21/2016 Encounter Details Date Type Department Care Team (Late st Contact Info) Description 02/21/[address] [address] Pranay Cardenas MD [address] [place] [phone] Tick Removal Social History Tobacco Use Types [...] on filedocumented in this encounter Care Teams Bonderite Operator Relationship Specialty Start Date End Date Shannan Vieyra MD PCP - General 04/08/09 03/15/19 documented as of this encounter
--- OUTSIDE RECORDS SUMMARY | 2024-07-02 20:52 | XMS_ITS | Encounter Summary ---
Author Organization [facility] Address [address] [place] [address] Care Team Providers Care Glass Installer Technician Name Role Phone Shannan Viyera MD Primary Care Provider Unavail able Reason for Visit * Reason Comments Abdominal Pain LLQ abdominal pain. Has history of Gall stones and has had similar pain, this time started around 03:30, took 1/2 percocet left from last time with no relief. Encounter Details Date Type Department Care Team (Late st Contact Info) Description 01/25/2014 5:15 EDT - 01/25/2014 6:56 EDT Emergency [facility] Emergency Department - [place] [address] [place] [address] Samanta Amador PA-C [address] [place] [phone] Michael Lundy PA-C [address] [place] [address] Emergency, MD Keli Abdominal pain (Primary Dx) [...] tenderness, guarding or CVA tenderness Discharge home, qqqz-[id number] analgesia, stressed the importance once again of [...] % Eosinophils 4.0 0.6 - 6.9 % [facility] % Basophils 0.9 0.2 - [...] & PF4 ORD ERABLES Performing Organization Address [facility] de Phone Number [facility] [address] [place] [address] * HEMAGRAM (01/25/2014 5:38 EDT) WBC 6.13 4.0 - 12.4 K/cmm [facility] RBC 4.59 3.86 - 5.04 M/cmm [facility] Hemoglobin 13.3 11.6 - 15.2 [...] & PF4 ORD ERAJEREMIAS Performing Organization Address [facility] Co de Phone Number [facility] [address] [place] [address] * LIPASE (01/25/2014 5:38 EDT) Lipase 111 0 - 250 U/L [facility] Blood specimen (specimen) 01/25/2014 5:38 EDT 01/25/2014 6:00 EDT Samanta Amador PA-C CHEMISTRY & BLOOD GA S ORDERABLES Performing Organization Address [facility]/ZIP Co de Phone Number [facility] [address] [place] [address] * (ABNORMAL) COMPREHENSIVE METABOLIC PANEL (CMP) (01/25/2014 5:38 EDT) Potassium 4.0 3.5 - 5.0 mEq/L [facility] Sodium 137 136 - 145 mEq/L [facility] Chloride 104 96 - 110 mEq/L [facility] CO2 25 24 - 32 mEq/L [facility] Total Alkaline Phosphatase 62 38 - 126 U/L [facility] Bilirubin, Total <0.5 <1.4 mg/dl [place] [facility] AST 13(L) 15 - 46 U/L [...] BLOOD GA S ORDERABLES Performing Organization Address [facility] Co de Phone Number [facility] [address] [place] [address] documented in this encounter Visit Diagnoses Diagnosis [...] 01/25/2014 documented in this encounter Care Teams Glass Installer Technician Relationship Specialty Start Date End Date Shannan Vieyra MD PCP - General 04/08/09 03/15/19 documented as of this encounter
--- OUTSIDE RECORDS SUMMARY | 2024-07-02 20:52 | XMS_ITS | Encounter Summary ---
Author Organization [facility] Address [address] [place] [address] Care Team Providers Care Endbander Name Role Phone Shannan Vieyra MD Primary Care Provider Unavail able Encounter Details Date Type Department Care Team (Late st Contact Info) Description 02/21/2016 Orders Only [address] [address] Ronald, MD Pranay [address] [place] [phone] Social History Tobacco Use Types Packs/Day Years [...] on filedocumented in this encounter Care Teams Endbander Relationship Specialty Start Date End Date Shannan Vieyra MD PCP - General 04/08/09 03/15/19 documented as of this encounter
--- OUTSIDE RECORDS SUMMARY | 2024-07-02 20:52 | XMS_ITS | Encounter Summary ---
Author Organization [facility] Address [address] [place] [address] Care Team Providers Care Spray Rig Operator Name Role Phone Shannan Vieyra MD Primary Care Provider Unavail able Reason for Referral * Consult (3 - 10 Business Days) - Specialty Report Received Specialty Diagnoses / Procedures Referred By Contact Referred To Contact Gastroenterology and Hepatology Diagnoses Pancreatitis, gallstone Shannan Vie[place] [address] Rk Stephens MD [address] [place] [address] [address] [place] [address] Referral ID Status Reason Start Date Expiration Date Visits Requested Visits Authorized [id number] Specialty Report Received Specialty Services Required 10/10/2013 1 1 Question Answer Reason for Request: recurrent episodes of abdominal pain- has gallstones and now an episode of pancreatitis Reason for Visit * Reason Onset Date Comments Results 10/10/2013 lab results from [facility] Encounter Details Date Type Department Care Team (Late st Contact Info) Description 10/10/2013 Telephone [facility] Medicine - [address] [address] Shannan Vieyra MD Results (lab results from [facility]) Social History Tobacco Use Types Packs/Day Years [...] about lab results called to me from [facility] where she had been seen Oct 08 for abdominal pain that was coming and going. Her Amylase is 165 and her Lipase is 1896. She had been evaluated in June in [facility] for similar episode of abdominal pain [...] fatty food. She is to report to [facility] if any recurrence of pain and [...] pancreatitis documented in this encounter Care Teams Spray Rig Operator Relationship Specialty Start Date End Date Shannan Vieyra MD PCP - General 04/08/09 03/15/19 documented as of this encounter
--- OUTSIDE RECORDS SUMMARY | 2024-07-02 20:52 | XMS_ITS | Encounter Summary ---
Author Organization [facility] Address [address] [place] [address] Care Team Providers Care Shirt Cleaner Name Role Phone Shannan Winter MD Primary Care Provider Unavail able Reason for Visit * Reason Onset Date Comments Medications Refill 05/20/2016 Encounter Details Date Type Department Care Team (Late st Contact Info) Description 05/20/2016 Telephone [facility] Family Medicine [address] [phone] Shannan Winter MD Medications Refill Social History [...] Encounter - Alisha Nino RN - 05/20/2016 1553 EDT Requested Prescriptions Signed Prescriptions Disp Refills [...] Provider: SHANNAN WINTER Ordering User: ALISHA NINO * Telephone Encounter - Lianne Vasquze - 05/20/2016 1535 EDT Patient called to [...] documented as of this encounter Care Teams Shirt Cleaner Relationship Specialty Start Date End Date Shannan Winter MD PCP - General 04/08/09 03/15/19 documented as of this encounter
--- OUTSIDE RECORDS SUMMARY | 2024-07-02 20:52 | XMS_ITS | Encounter Summary ---
Author Organization [facility] Address [address] [place] [address] Care Team Providers Care Animal Care Technician Name Role Phone Shannan Vieyra MD Primary Care Provider Unavail able Encounter Details Date Type Department Care Team (Late st Contact Info) Description 08/24/2016 Results Only [facility] Family Medicine - [place] [address] Leida Cerda PA-C [address] [facility] [address] [place], [place] [phone] Social History Tobacco Use Types Packs/Day Years [...] 0.8 - 1.8 ng/dl 08/24/2016 21:51 EST [facility] BLOOD SPECIMEN / Unknown 08/24/2016 14:51 EST 08/24/2016 19:34 EST Leida Cerda PA-C CHEMISTRY & BLOOD GAS ORDERABLES [facility] [address] [place] [address] documented in this encounter Visit Diagnoses Not on filedocumented in this encounter Care Teams Animal Care Technician Relationship Specialty Start Date End Date Shannan Vieyra MD PCP - General 04/08/09 03/15/19 documented as of this encounter
--- OUTSIDE RECORDS SUMMARY | 2024-07-02 20:52 | XMS_ITS | Encounter Summary ---
Author Organization [facility] Address [address] [place] [address] Care Team Providers Care Coastal/Harbor Defense Officer Name Role Phone Shannan Vieyra MD Primary Care Provider Unavail able Reason for Visit * Reason Comments Abdominal Pain LUQ radiating to michel k, started at 2000. Encounter Details Date Type Department Care Team (Late st Contact Info) Description 03/08/2013 23:08 EDT - 03/09/2013 1:26 EDT Emergency [facility] Emergency Department - [address] [phone] Rita Weber MD [address] [place] [address], Level [address] [place] [address] Emergency, MD Keli Abdominal pain [...] AFTER YOUR VISIT TO THE EMERGENCY ROOM (ETHIOPIAN) documented in this encounter Medications at Time [...] 2310 EDT TCALL: DORIS KERR (katerina) [address] [facility] MED RESIDENT REFERS PT TO E[facility]leen FOR EVAL. CC: ACUTE LUQ ABD PN, KNOWN GALLSTONES. (GMD) documented in this encounter Miscellaneous Notes * Scanned Note-Null - FISHING BOAT MATE, SCAN 2 - 03/13/2013 0746 EDT documented in this encounter Plan of [...] Ketones Neg Neg [facility] Specific [place] 1.025 1.001 - 1.035 [facility] Blood Neg Neg [facility] pH 7.0 4.6 - 8.0 [facility] Protein Neg Neg [facility] Urobilinogen 0.2 0.2 - 1.0 E.U./dl [facility] Nitrite Neg Neg [facility] Leuk Esterase 1+(A) Neg [facility] vocal performer ID [id number] [facility] Comment:Test performed at Em ergency Department Urine specimen (specimen) 03/09/2013 0:41 EDT 03/09/2013 0:45 EDT Rita Weber MD POINT OF CARE TEST ORDERABLES [facility] [address] [place] [address] documented in this encounter Visit Diagnoses Diagnosis [...] 03/08/2013 documented in this encounter Care Teams Coastal/Harbor Defense Officer Relationship Specialty Start Date End Date Shannan Vieyra MD PCP - General 04/08/09 03/15/19 documented as of this encounter
--- OUTSIDE RECORDS SUMMARY | 2024-07-02 20:52 | XMS_ITS | Encounter Summary ---
Author Organization [facility] Address [address] [place] [address] Care Team Providers Care Youth Court Judge Name Role Phone Shannan Vieyra MD Primary Care Provider Unavail able Encounter Details Date Type Department Care Team (Late st Contact Info) Description 10/23/2012 Phlebotomy Only [address] [address] [place], Outpatient Other iatrogenic hypothyroidism Social History Tobacco [...] BLOOD GAS ORDERABLES [facility] [address] [place] [address] * (ABNORMAL) T3, TOTAL (10/23/2012 16:37 EST) T3, Total 55(L) 60 - 181 ng/dL [facility] Blood specimen (specimen) 10/23/2012 16:37 EST 10/23/2012 18:28 EST Leida Cerda PA-C CHEMISTRY & BLOOD GAS ORDERABLES Performing Organization Address [facility] Co de Phone Number [facility] [address] [place] [address] * (ABNORMAL) TSH (10/23/2012 16:37 EST) TSH 9.78(H) 0.35 - 5.00 uIU/ml [facility] Blood specimen (specimen) 10/23/2012 16:37 EST 10/23/2012 18:28 EST Leida Cerda PA-C CHEMISTRY & BLOOD GAS ORDERABLES Performing Organization Address City/[facility] Co de Phone Number [facility] [address] [place] [address] documented in this encounter Visit Diagnoses Diagnosis Other iatrogenic hypothyroidism documented in this encounter Care Teams Youth Court Judge Relationship Specialty Start Date End Date Shannan Vieyra MD PCP - General 04/08/09 03/15/19 documented as of this encounter
--- OUTSIDE RECORDS SUMMARY | 2024-07-02 20:52 | XMS_ITS | Encounter Summary ---
Author Organization [facility] Address [address] [place] [address] Care Team Providers Care Preschool Adviser Name Role Phone Shannan Vieyra MD Primary Care Provider Unavail Leida Jackson PA-C Primary Care Provi melvin Comfort Zelaya NP Primary Care Provider [phone] Reason for Visit * Reason Comments Other Encounter Details Date Type Department Care Team (Late st Contact Info) Description 10/15/2013 Refill [facility] Family Medicine [facility] [address] [place], [place] [phone] Leida Cerda PA-C [address] [facility] [address] [place], [place] [phone] Other Social History Tobacco Use Types Packs/Day [...] - 10/16/2013 0749 EST Refill request for [place] Thyroid and Prinzide received from [facility] in [place]. Doris due due for her labs. 90 days of Rx approved. Standing orders place in [facility]. Message will be sent to [facility] to call patient and schedule her for Fasting labs. Aliza Nnio RN documented in this encounter Plan of Treatment Not on file documented as of this encounter Results * BASIC METABOLIC PANEL (09/02/2014 15:45 EST) Sodium 140 136 - 145 mEq/L 09/02/2014 18:36 [facility] Potassium 4.4 3.5 - 5.0 mEq/L 09/02/2014 18:36 [facility] Chloride 102 96 - 110 mEq/L 09/02/2014 18:36 [facility] CO2 25 24 - 32 mEq/L 09/02/2014 18:36 [facility] BUN 19 10 - 26 mg/dl 09/02/2014 18:36 [facility] Creatinine 0.81 0.52 - 1.04 mg/dl 09/02/2014 18:36 [facility] GFR, Calculated >60 >60 ml/min/1.7 3m2 09/02/2014 18:36 [facility] Calcium 10.2 8.5 - 10.5 mg/dl 09/02/2014 18:36 [facility] Calculated Calcium 10.2 8.5 - 10.5 mg/dl 09/02/2014 18:36 [facility] Glucose, Serum 76 70 - 100 mg/dl 09/02/2014 18:36 [facility] Fasting? YES 09/02/2014 15:45 [facility] Blood specimen (specimen) BLOOD SPECIMEN / Unknown 09/02/2014 15:45 EST 09/02/2014 18:01 EST Shannan Vieyra MD CHEMISTRY & BLOOD GA S ORDERABLES Performing Organization Address City/[facility]/ZIP Co de Phone Number [facility] [address] [place] [address] * VITAMIN D (25,OH) (09/02/2014 15:45 EST) 25OH Vitamin D Tot 21.5 ng/ml 09/03/2014 11:45 EST [facility] Comment: Reference Range: Deficient = <10 ng/ml Insufficient = 10-30 ng/ml Sufficient = 30-100 ng/ml Toxic = >100 ng/ml Blood specimen (specimen) BLOOD SPECIMEN / Unknown 09/02/2014 15:45 EST 09/02/2014 18:01 EST Shannan Vieyra MD CHEMISTRY & BLOOD GA S ORDERABLES Performing Organization Address [facility] Co de Phone Number [facility] [address] [place] [address] documented in this encounter Visit Diagnoses Diagnosis [...] 10/16/2013 documented in this encounter Care Teams Preschool Adviser Relationship Specialty Start Date End Date Shannan Vieyra MD PCP - General 04/08/09 03/15/19 Leida Cerda PA-C PCP - General 03/16/19 03/07/22 Comfort Zelaya NP [address] [place] [phone] PCP - General Family Medicine - Primary Care 03/08/22 documented as of this encounter
--- OUTSIDE RECORDS SUMMARY | 2024-07-02 20:52 | XMS_ITS | Encounter Summary ---
Author Organization [facility] Address [address] [place] [address] Care Team Providers Care Basket Patcher Name Role Phone Isela Winter MD Primary Care Provider Unavail able Reason for Referral * (Routine) - Closed Specialty Diagnoses / Procedures Referred By Contac t Referred To Contact Jose Martin Perez MD [address] [address] Referral ID Status Reason Start Date Expiration Date V isits Requested Visits Authorized [id number] Closed Specialty Services Required 04/19/2014 1 1 [...] Referred To Contact Jose Martin Perez MD [address] [address] Referral ID Status Reason Start Date Expiration Date V isits Requested Visits Authorized [id number] Closed Specialty Services Required 04/19/2014 1 1 [...] Contact Jose Martin Perez MD [address] [address] Referral ID Status Reason Start Date Expiration Date V isits Requested Visits Authorized [id number] Closed Specialty Services Required 04/19/2014 1 1 Comments See Mouna Bonner MD. Please call for an appointment. [phone] Encounter Details Date Type Department Care Team (Late st Contact Info) Description 04/19/2014 7:59 EDT - 04/19/2014 16:02 EDT Hospital Encounter [facility] Perioperative Services- [address] [address] Mouna Maradiaga MD [address] [facility], [address] 5 [place] [phone] Cholelithiasis (Primary Dx) Discharge Disposition: Home or [...] Surgery Surgeon: Dr. Mouna Maradiaga MD FACS Programmer Or Analyst(s): Jose Martin Perez MD Preoperative diagnosis / [...] documented in this encounter Nursing Notes * CUSTOMER COUNTER REPRESENTATIVE, SCAN 2 - 04/24/2014 1312 EDT documented in this encounter OR Notes * OR PreOp - CUSTOMER COUNTER REPRESENTATIVE, SCAN 2 - 04/25/2014 1305 EDT * Anesthesia Preprocedure Evaluation - CUSTOMER COUNTER REPRESENTATIVE, SCAN 2 - 04/25/2014 1305 EDT * OR PreOp - CUSTOMER COUNTER REPRESENTATIVE, SCAN 2 - 04/24/2014 1312 EDT * OR Surgeon - Mouna Maradiaga MD - 04/19/2014 1402 EDT OPERATIVE REPORT SERVICE DATE: 04/19/2014 PREOPERATIVE DIAGNOSES: Biliary colic, cholelithiasis, chronic cholecystitis. POSTOPERATIVE DIAGNOSES: Biliary colic, cholelithiasis, chronic cholecystitis. PROCEDURE: Laparoscopic cholecystectomy with intraoperative cholangiogram. SURGEON: Mouna Maradiaga MD, FACS CLINICAL SPECIALTY REP: Jose Martin Perez MD ANESTHESIA: General endotracheal. [...] closed at the fascial level with a [id number] 0 Vicryl suture. Skin at all trocar [...] Mouna Bustamante. MD Hiren FACS mn Confirmation: [id number] Dictation ID: [id number] cc:Isela Perez MD * Anesthesia Procedure Notes - CUSTOMER COUNTER REPRESENTATIVE, SCAN 2 - 04/19/2014 1222 EDT documented [...] EDT) 04/24/2014 13:1 2 EDT Scan 2 Electronic Sales And Service Technician PROCEDURE/MINOR TERRENCE GICAL ORDERABLES * SURGICAL PATHOLOGY (04/19/2014 13:35 EDT) Pathology Report: SURGICAL PATHOLOGY REPORT Reports generated via electronic interface contain original data; however they are lacking the format of the original report. Caution should be taken when reading/interpreti ng unformatted reports. Name: ? MARCELLO LEUNG ? Accession #: ? [id number] ? : ? 1980 (Age: 34) ??F ? Collect Date: ? 04/19/2014 ? Location: ? [facility] ? Receive Date: ? 04/19/2014 ? Provider: [...] x 1.5 cm in aggregate. ? Two sales and service representative sections and the inked en face cystic duct margin are submitted in 1. Dr. Peace 04/19/2014 02:25 PM End of Report [facility] 04/19/2014 13:3 5 EDT 04/19/2014 13:35 EDT Mouna Maradiaga MD PATHOLOGY ORDERABLES Performing Organization Address City/State/[facility] Co de Phone Number [facility] [address] [place] [address] * INTRAOP CHOLANGIOGRAM (04/19/2014 11:17 EDT) Anatomical [...] (only) 1228 (Rate Documente d - Provider: Mari aGuadalupe Uribe RN) PRN Medication Order 04/17/2014 04/18/2014 [...] 04/09 documented in this encounter Care Teams Basket Patcher Relationship Specialty Start Date End Date Isela Winter MD PCP - General 04/08/09 03/15/19 documented as of this encounter
--- OUTSIDE RECORDS SUMMARY | 2024-07-02 20:52 | XMS_ITS | Encounter Summary ---
Author Organization [facility] Address [address] [place] [address] Care Team Providers Care Handbell Choir Director Name Role Phone Shannan Vieyra MD Primary Care Provider Unavail able Reason for Visit * Reason Onset Date Comments Medications Refill 02/20/2014 Encounter Details Date Type Department Care Team (Late st Contact Info) Description 02/20/[address] [phone] Shannan Vieyra MD Medications Refill Social History [...] documented as of this encounter Care Teams Handbell Choir Director Relationship Specialty Start Date End Date Shannan Vieyra MD PCP - General 04/08/09 03/15/19 documented as of this encounter
--- OUTSIDE RECORDS SUMMARY | 2024-07-02 20:52 | XMS_ITS | Encounter Summary ---
Author Organization [facility] Address [address] [place] [address] Care Team Providers Care Foot Setter Name Role Phone Shannan Vieyra MD Primary Care Provider Unavail able Encounter Details Date Type Department Care Team (Late st Contact Info) Description 09/02/2014 Phlebotomy Only [facility] - [address] [address] Volunteer Manager, Outpatient Graves disease; Other iatrogenic hypothyroidism; Encounter [...] 136 - 145 mEq/L 09/02/2014 18:36 EST [facility] Potassium 4.4 3.5 - 5.0 mEq/L 09/02/2014 18:36 [facility] Chloride 102 96 - 110 mEq/L 09/02/2014 18:36 [facility] CO2 25 24 - 32 mEq/L 09/02/2014 18:36 [facility] BUN 19 10 - 26 mg/dl 09/02/2014 18:36 [facility] Creatinine 0.81 0.52 - 1.04 mg/dl 09/02/2014 18:36 [facility] GFR, Calculated >60 >60 ml/min/1.7 3m2 09/02/2014 18:36 [facility] Calcium 10.2 8.5 - 10.5 mg/dl 09/02/2014 18:36 [facility] Calculated Calcium 10.2 8.5 - 10.5 mg/dl 09/02/2014 18:36 [facility] Glucose, Serum 76 70 - 100 mg/dl 09/02/2014 18:36 [facility] Fasting? YES 09/02/2014 15:45 [facility] Blood specimen (specimen) BLOOD SPECIMEN / Unknown 09/02/2014 15:45 EST 09/02/2014 18:01 EST Shannan Vieyra MD CHEMISTRY & BLOOD GA S ORDERABLES [facility] [address] [place] [address] * VITAMIN D (25,OH) (09/02/2014 15:45 EST) 25OH Vitamin D Tot 21.5 ng/ml 09/03/2014 11:45 [facility] Comment: Reference Range: Deficient = <10 ng/ml Insufficient = 10-30 ng/ml Sufficient = 30-100 ng/ml Toxic = >100 ng/ml Blood specimen (specimen) BLOOD SPECIMEN / Unknown 09/02/2014 15:45 EST 09/02/2014 18:01 EST Shannan Vieyra MD CHEMISTRY & BLOOD GA S ORDERABLES [facility] [address] [place] [address] * (ABNORMAL) THYROID CASCADE (09/02/2014 15:45 EST) TSH 25.78(H) 0.35 - 5.00 uIU/ml 09/02/2014 20:23 EST [facility] Comment: TSH cascade is not recommended for patients in which pituitary or hypothalamic disorders are suspected. Blood specimen (specimen) BLOOD SPECIMEN / Unknown 09/02/2014 15:45 EST 09/02/2014 18:01 EST Shannan Vieyra MD CHEMISTRY & BLOOD GA S ORDERABLES Performing Organization Address [facility] Co de Phone Number [facility] [address] [place] [address] documented in this encounter Visit Diagnoses Diagnosis Graves disease Toxic diffuse goiter without mention of thyrotoxic crisis or storm Other iatrogenic hypothyroidism Encounter for vitamin deficiency screening Screening for other and unspecified endocrine, nutritional, metabolic, and immunity disorders HTN (hypertension) Unspecified essential hypertension documented in this encounter Care Teams Foot Setter Relationship Specialty Start Date End Date Shannan Vieyra MD PCP - General 04/08/09 03/15/19 documented as of this encounter
--- OUTSIDE RECORDS SUMMARY | 2024-07-02 20:52 | XMS_ITS | Encounter Summary ---
Author Organization [facility] Address [address] [place] [address] Care Team Providers Care Assembler Equipment Name Role Phone Shannan Vieyra MD Primary Care Provider Unavail able Reason for Visit * Reason Onset Date Comments Medications Refill 08/20/2014 Encounter Details Date Type Department Care Team (Late st Contact Info) Description 08/20/[address] [address] Shannan Vieyra MD Medications Refill Social History [...] October 2012. Message will be forwarded to [facility] to schedule appointment for blood draw prior to receiving medication order. Dionna Caballero RN * Telephone Encounter - Shikha Garza - 08/20/2014 1545 EST Medication(s) Requested: Lisinopril-Hydrochlorothiazide Pharmacy: [facility] Last Refill Date: 02/20/14 #90 No refills Last Visit Date: 06/14/12 Next Visit Date: 09/04/2014 Is patient out of medication? Yes Medication(s) Requested: [place] Thyroid 15 mg Last Refill Date: 02/20/14 #90 No refills Is patient out of medication? Yes Medication(s) Requested: [place] Thyroid 90 mg Last Refill Date: 02/20/14 #90 No refills Is patient out of medication? Yes Shikha Garza 08/20/2014 15:45 documented in this encounter Plan of Treatment Not on file documented as of this encounter Results * (ABNORMAL) THYROID CASCADE (09/02/2014 15:45 EST) TSH 25.78(H) 0.35 - 5.00 uIU/ml 09/02/2014 20:23 EST [facility] Comment: TSH cascade is not recommended for patients in which pituitary or hypothalamic disorders are suspected. Blood specimen (specimen) BLOOD SPECIMEN / Unknown 09/02/2014 15:45 EST 09/02/2014 18:01 EST Shannan Vieyra MD CHEMISTRY & BLOOD GA S ORDERABLES [facility] [address] [place] [address] documented in this encounter Visit Diagnoses Diagnosis [...] documented as of this encounter Care Teams Assembler Equipment Relationship Specialty Start Date End Date Shannan Vieyra MD PCP - General 04/08/09 03/15/19 documented as of this encounter
--- OUTSIDE RECORDS SUMMARY | 2024-07-02 20:52 | XMS_ITS | Encounter Summary ---
Author Organization [facility] Address [address] [place] [address] Care Team Providers Care Cooker Process Cheese Name Role Phone Shannan Vieyra MD Primary Care Provider Unavail able Reason for Visit * Reason Onset Date Comments Post-op Problem 04/29/2014 Gallbladder surg namrata last Tuesday. A couple of incisions are very red, and there is drainage from belly button area. Encounter Details Date Type Department Care Team (Late st Contact Info) Description 04/29/2014 Telephone [facility] General Surgery - [facility] [address] [place], [place] [phone] Ashwin Maradiaga MD [address] [place] [address], [address] [place] [address] Post-op Problem ( Gallbladder surgery [...] Encounter - Megan Groves RN - 04/29/2014 5550 EDT Phone call to patient. She is [...] on filedocumented in this encounter Care Teams Cooker Process Cheese Relationship Specialty Start Date End Date Shannan Vieyra MD PCP - General 04/08/09 03/15/19 documented as of this encounter
--- OUTSIDE RECORDS SUMMARY | 2024-07-02 20:52 | XMS_ITS | Encounter Summary ---
Author Organization [facility] Address [address] [place] [address] Care Team Providers Care Merchandising Intern Name Role Phone Shannan Vieyra MD Primary Care Provider Unavail able Reason for Visit * Reason Comments Hypertension medication refills f or thyroid Encounter Details Date Type Department Care Team (Late st Contact Info) Description 09/04/2014 10:30 EST Office Visit [facility] Family Medicine [place] [phone] Leida Cerda PA-C [address] [place] [id number] Other iatrogenic hypothyroidism (Primary Dx); Bee sting; [...] Had recent labs. Sees Dr. Martinez for dance therapist care. 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 Patient Active Problem List Diagnosis ??? [...] mouth daily. (increase from 105mg) - Thyroid [place] (3 Months); Future Bee sting - EPINEPHrine [...] documented as of this encounter Care Teams Merchandising Intern Relationship Specialty Start Date End Date Shannan Vieyra MD PCP - General 04/08/09 03/15/19 documented as of this encounter
--- OUTSIDE RECORDS SUMMARY | 2024-07-02 20:52 | XMS_ITS | Encounter Summary ---
Author Organization [facility] Address [address] [place] [address] Care Team Providers Care Paper Baling Machine Operator Name Role Phone Shannan Vieyra MD Primary Care Provider Unavail able Reason for Visit * Reason Onset Date Comments Post-ED Follow Up 01/29/2014 01/25/14 - ABD PAIN Encounter Details Date Type Department Care Team (Late st Contact Info) Description 01/29/[address] [phone] Aliza Nino RN Post-ED Follow Up (01/25/14 [...] on filedocumented in this encounter Care Teams Paper Baling Machine Operator Relationship Specialty Start Date End Date Shannan Vieyra MD PCP - General 04/08/09 03/15/19 documented as of this encounter
--- OUTSIDE RECORDS SUMMARY | 2024-07-02 20:52 | XMS_ITS | Encounter Summary ---
Author Organization [facility] Address [address] [place] [address] Care Team Providers Care Environmental Protection Specialist Name Role Phone Shannan Vieyra MD Primary Care Provider Unavail able Reason for Visit * Reason Comments Insect Bite bee sting 3 days ago on right hand, swollen Encounter Details Date Type Department Care Team (Late st Contact Info) Description 05/21/2013 9:15 EDT Office Visit [address] [address] Bridget Grubbs, DO [address] [place] [address] Bee sting (Primary Dx); Cellulitis [...] documented in this encounter Progress Notes * Bridget Morales DO - 05/21/2013 0939 EDT Subjective: [...] documented as of this encounter Care Teams Environmental Protection Specialist Relationship Specialty Start Date End Date Shannan Vieyra MD PCP - General 04/08/09 03/15/19 documented as of this encounter
--- OUTSIDE RECORDS SUMMARY | 2024-07-02 20:52 | XMS_ITS | Encounter Summary ---
Author Organization [facility] Address [address] [place] [address] Care Team Providers Care Lamp Stack Developer Name Role Phone Shannan Vieyra MD Primary Care Provider Unavail able Reason for Visit * Reason Onset Date Comments Post-ED Follow Up 10/29/2013 Encounter Details Date Type Department Care Team (Late st Contact Info) Description 10/29/[address] [phone] Aliza Nino RN Post-ED Follow Up Social [...] phone did not identify Doris as the sales store checker of the device. There for I left a brief message asking that Doris call our office to schedule a follow up visit with her provider. I've provided our office phone number for patient's convenience. Aliza Nino RN documented in this encounter Plan of Treatment Not on file documented as of this encounter Visit Diagnoses Not on filedocumented in this encounter Care Teams Lamp Stack Developer Relationship Specialty Start Date End Date Shannan Vieyra MD PCP - General 04/08/09 03/15/19 documented as of this encounter
--- OUTSIDE RECORDS SUMMARY | 2024-07-02 20:52 | XMS_ITS | Encounter Summary ---
Author Organization [facility] Address [address] [place] [address] Care Team Providers Care Wind Farm Engineer Name Role Phone Shannan Vieyra MD [...] 3:55 EDT - 06/24/2013 10:56 EDT Emergency [facility] Emergency Department - [place] [address] [place] [address] Sarkis Crook, PA-C [address] [place], [place] [id number] Shikha Beavers PA [address] [place], [place] [phone] Emergency, MD Keli Abdominal pain (Primary Dx) [...] AFTER YOUR VISIT TO THE EMERGENCY ROOM ([facility]) documented in this encounter Medications at Time [...] Code Departure Means Destination Home or Self Senior Living documented in this encounter ED Notes * [...] order. * Sarkis Crook PA - 06/24/2013 3493 EDT DOS: 06/24/2013 Chief Complaint Patient presents [...] encounter Miscellaneous Notes * Scanned Note-Null - STOCK PREPARATION OPERATOR, SCAN 2 - 06/26/2013 1440 EDT documented [...] POCT URINE TEST (06/24/2013 7:02 EDT) Pathologist [facility] Test, Urine, POC Negative Reference Range, Negative Control Line Present Yes Background Clear? Yes Urine specimen (specimen) 06/24/2013 7:02 EDT Sarkis Crook PA-C POINT OF CARE TEST O RDERABLES * (ABNORMAL) POCT URINE DIPSTICK (06/24/2013 6:51 EDT) Pathologist [facility] Color YELLOW [facility] Clarity, UA Clear [facility] Glucose Neg Neg [facility] Bilirubin Neg Neg [facility] Ketones Neg Neg [facility] Specific Pearblossom >=1.030 1.001 - 1.035 [facility] Blood Neg Neg [facility] pH 6.0 4.6 - 8.0 [facility] Protein Trace(A) Neg [facility] Urobilinogen 0.2 0.2 - 1.0 E.U./dl [facility] Nitrite Neg Neg [facility] Leuk Esterase Neg Neg [facility] leather goods sales representative ID [id number] [facility] Comment:Test performed at Em ergency Department Urine specimen (specimen) 06/24/2013 6:51 EDT 06/24/2013 7:01 EDT Sarkis Crook PA-C POINT OF CARE TEST O RDERABLES Performing Organization Address [facility] Co de Phone Number [facility] [address] [place] [address] * DIFFERENTIAL (06/24/2013 5:10 EDT) % Neutrophils [...] & PF4 ORD ERABLES Performing Organization Address City/[facility] Co de Phone Number [facility] [address] [place] [address] * HEMAGRAM (06/24/2013 5:10 EDT) WBC 6.31 [...] & PF4 ORD ERABLES Performing Organization Address [facility] Co de Phone Number [facility] [address] [place] [address] * LIPASE (06/24/2013 5:10 EDT) Pathologist [facility] Lipase 163 0 - 250 U/L [facility] Blood specimen (specimen) 06/24/2013 5:10 EDT 06/24/2013 5:20 EDT Sarkis Crook PA-C CHEMISTRY & BLOOD GA S ORDERABLES Performing Organization Address [facility] Phone Number [facility] [address] [place] [address] * (ABNORMAL) COMPREHENSIVE METABOLIC PANEL (CMP) (06/24/2013 5:10 EDT) Pathologist [facility] Potassium 3.8 3.5 - 5.0 mEq/L [facility] [...] GA S ORDERABLES [facility] [address] [place] [address] documented in this encounter Visit Diagnoses Diagnosis [...] 06/24/2013 documented in this encounter Care Teams Wind Farm Engineer Relationship Specialty Start Date End Date Shannan Vieyra MD PCP - General 04/08/09 03/15/19 documented as of this encounter
--- OUTSIDE RECORDS SUMMARY | 2024-07-02 20:52 | XMS_ITS | Encounter Summary ---
Author Organization [facility] Address [address] [place] [address] Care Team Providers Care Philatelic Consultant Name Role Phone Shannan Vieyra MD Primary Care Provider Unavail able Reason for Visit * Reason Onset Date Comments Medication Problem 08/20/2016 Encounter Details Date Type Department Care Team (Late st Contact Info) Description 08/20/[address] [phone] Shannan Vieyra MD Medication Problem Social History [...] Encounter - Leida Cerda PA - 08/24/2016 1161 EST See office note from today's visit * Telephone Encounter - Nani Dwyer RN - 08/23/2016 0916 EST Pt [...] on filedocumented in this encounter Care Teams Philatelic Consultant Relationship Specialty Start Date End Date Shannan Vieyra MD PCP - General 04/08/09 03/15/19 documented as of this encounter
--- OUTSIDE RECORDS SUMMARY | 2024-07-02 20:52 | XMS_ITS | Encounter Summary ---
Author Organization [facility] Address [address] [place] [address] Care Team Providers Care Bellman Captain Name Role Phone Shannan Vieyra MD Primary Care Provider Unavail able Reason for Visit * Reason Onset Date Comments Medications Refill 09/20/2015 Encounter Details Date Type Department Care Team (Late st Contact Info) Description 09/20/[address] [address] Shannan Vieyra MD Medications Refill Social History [...] Lee - 09/20/2015 0835 EST Medication(s) Requested: [place] Thyroid Pharmacy: [facility] Last Refill [...] hypothyroidism documented in this encounter Care Teams Bellman Captain Relationship Specialty Start Date End Date Shannan Vieyra MD PCP - General 04/08/09 03/15/19 documented as of this encounter
--- OUTSIDE RECORDS SUMMARY | 2024-07-02 20:52 | XMS_ITS | Encounter Summary ---
Author Organization [facility] Address [address] [place] [address] Care Team Providers Care Electrophysiology Scientist Name Role Phone Shannan Vieyra MD Primary Care Provider Unavail able Reason for Visit * Reason Onset Date Comments Returning Call 08/26/2016 Encounter Details Date Type Department Care Team (Late st Contact Info) Description 08/26/[address] [phone] Shannan Vieyra MD Returning Call Social History [...] is returning a call from Sallie Cerda RETAIL WAREHOUSE ASSOCIATE.Pt states it was regarding dosage. Please call [...] documented as of this encounter Care Teams Electrophysiology Scientist Relationship Specialty Start Date End Date Shannan Vieyra MD PCP - General 04/08/09 03/15/19 documented as of this encounter
--- OUTSIDE RECORDS SUMMARY | 2024-07-02 20:52 | XMS_ITS | Encounter Summary ---
Author Organization [facility] Address [address] [place] [address] Care Team Providers Care Engraver Tender Name Role Phone Shannan Vieyra MD Primary Care Provider Unavail able Reason for Visit * Reason Onset Date Comments Medications Refill 12/23/2017 Encounter Details Date Type Department Care Team (Late st Contact Info) Description 12/23/[address] [address] Shannan Vieyra MD Medications Refill Social History [...] Thyroid, Pork, 180mg Preferred Pharmacy: [facility] Is patient out of medication? Yes Last [...] documented as of this encounter Care Teams Engraver Tender Relationship Specialty Start Date End Date Shannan Vieyra MD PCP - General 04/08/09 03/15/19 documented as of this encounter
--- OUTSIDE RECORDS SUMMARY | 2024-07-02 20:52 | XMS_ITS | Encounter Summary ---
Author Organization [facility] Address [address] [place] [address] Care Team Providers Care Staff Interpreter Name Role Phone Shannan Vieyra MD Primary Care Provider Unavail able Reason for Visit * Reason Comments Wound Check red and itchy Encounter Details Date Type Department Care Team (Late st Contact Info) Description 04/30/2014 10:45 EDT Office Visit [facility] General Surgery - [address] [phone] Ashwin Maradiaga MD [address] [place] [address], [address] [place] [address] S/P laparoscopic cholecystectomy (Primary Dx) [...] status documented in this encounter Care Teams Staff Interpreter Relationship Specialty Start Date End Date Shannan Vieyra MD PCP - General 04/08/09 03/15/19 documented as of this encounter
--- OUTSIDE RECORDS SUMMARY | 2024-07-02 20:52 | XMS_ITS | Encounter Summary ---
Author Organization [facility] Address [address] [place] [address] Care Team Providers Care Greeting Card Maker Name Role Phone Shannan Vieyra MD Primary Care Provider Leida Robledo PA-C Primary Care Provi melvin Comfort Zelaya NP Primary Care Provider [phone] Reason for Visit * Reason Onset Date Comments Referral Request 02/06/2014 Encounter Details Date Type Department Care Team (Late st Contact Info) Description 02/06/2014 Telephone [facility] Family Medicine - [address] [phone] Shannan Vieyra MD Referral Request Social History [...] on filedocumented in this encounter Care Teams Greeting Card Maker Relationship Specialty Start Date End Date Shannan Vieyra MD PCP - General 04/08/09 03/15/19 Leida Cerda PA-C PCP - General 03/16/19 03/07/22 Comfort Zelaya NP [address] [place] [phone] PCP - General Family Medicine - Primary Care 03/08/22 documented as of this encounter
--- OUTSIDE RECORDS SUMMARY | 2024-07-02 20:52 | XMS_ITS | Encounter Summary ---
Author Organization [facility] Address [address] [place] [address] Care Team Providers Care Manager Quality Name Role Phone Shannan Vieyra MD Primary Care Provider Unavail able Reason for Visit * Reason Onset Date Comments Medications Refill 12/01/2015 Encounter Details Date Type Department Care Team (Late st Contact Info) Description 12/01/2015 Refill [facility] Medicine [address] [address] Shannan Vieyra MD Medications Refill Social History [...] one tab by mouth daily;dispense;90;rf;4 Pharmacy: [employer] Last Refill Date: 09.04.14 Last Visit [...] documented as of this encounter Care Teams Manager Quality Relationship Specialty Start Date End Date Shannan Vieyra MD PCP - General 04/08/09 03/15/19 documented as of this encounter
--- OUTSIDE RECORDS SUMMARY | 2024-07-02 20:52 | XMS_ITS | Encounter Summary ---
Author Organization [facility] Address [address] [place] [address] Care Team Providers Care Product Technician Name [...] Info) Description 08/24/2016 14:30 EST Office Visit [facility] Family Medicine - [place] [id number] [place], [place] [address] Leida Cerda PA-C 402 [facility] [address] [place], [place] [address] Graves' disease (Primary Dx); Bee sting, undetermined [...] for several days now. 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 No fever. Dry cough. No SOB or [...] 1 Tab by mouth daily. - Thyroid [place] Bee sting, undetermined intent, sequela - EPINEPHrine [...] 1430 EST Venipuncture performed per order from Leiad ARAUJO Right arm, a/c, first attempt and [...] 0.55 - 4.78 uIU/ml 08/24/2016 21:31 EST [facility] Comment: TSH cascade is not recommended for patients in which pituitary or hypothalamic disorders are suspected. Blood specimen (specimen) BLOOD SPECIMEN / Unknown 08/24/2016 14:51 EST 08/24/2016 19:34 EST Leida Cerda PA-C CHEMISTRY & BLOOD GAS ORDERABLES [facility] [address] [place] [address] documented in this encounter Visit Diagnoses Diagnosis [...] documented as of this encounter Care Teams Product Technician Relationship Specialty Start Date End Date Shannan Vieyra MD PCP - General 04/08/09 03/15/19 documented as of this encounter
--- OUTSIDE RECORDS SUMMARY | 2024-07-02 20:52 | XMS_ITS | Encounter Summary ---
Author Organization [facility] Address [address] [place] [address] Care Team Providers Care Block Mason Name Role Phone Shannan Vieyra MD Primary Care Provider Unavail able Encounter Details Date Type Department Care Team (Latest Contact Info) Description 09/02/2014 15:38 EST - 09/02/2014 23:59 EST Hospital Encounter [address] [address] Unknown, Provider, Discharge Disposition: Home or Self [...] Code Departure Means Destination Home or Self Custodial documented in this encounter Plan of Treatment Not on file documented as of this encounter Procedures Procedure Name Priority Date/Time Associated Diagnosis Comments T4, FREE REFLEX Routine 09/02/2014 15:45 EST documented in this encounter Results * (ABNORMAL) T4, FREE REFLEX (09/02/2014 15:45 EST) Free T4 0.6(L) 0.8 - 1.8 ng/dl 09/02/2014 20:50 EST [facility] BLOOD SPECIMEN / Unknown 09/02/2014 15:45 EST 09/02/2014 18:01 EST Shannan Vieyra MD CHEMISTRY & BLOOD GA S ORDERABLES [facility] [address] [place] [address] documented in this encounter Visit Diagnoses Not on filedocumented in this encounter Care Teams Block Mason Relationship Specialty Start Date End Date Shannan Vieyra MD PCP - General 04/08/09 03/15/19 documented as of this encounter
--- OUTSIDE RECORDS SUMMARY | 2024-07-02 20:52 | XMS_ITS | Encounter Summary ---
Author Organization [facility] Address [address] [place] [address] Care Team Providers Care Deck Engine Operator Name Role Phone Shannan Vieyra MD Primary Care Provider Unavail able Reason for Visit * Reason Comments Follow-up allergic reaction Encounter Details Date Type Department Care Team (Late st Contact Info) Description 05/14/2014 14:45 EDT Office Visit [facility] General Surgery - [address] [phone] Ashwin Maradiaga MD [address] [place] [address], [address] [place] [address] S/P laparoscopic cholecystectomy (Primary Dx) [...] status documented in this encounter Care Teams Deck Engine Operator Relationship Specialty Start Date End Date Shannan Vieyra MD PCP - General 04/08/09 03/15/19 documented as of this encounter
--- OUTSIDE RECORDS SUMMARY | 2024-07-02 20:53 | XMS_ITS | Encounter Summary ---
Author Organization [facility] Address [address] [place] [address] Care Team Providers Care Supervisor Phosphoric Acid Name Role Phone Shannan Vieyra MD Primary Care Provider Unavail able Reason for Visit * Reason Onset Date Comments Medication Problem 02/13/2010 Encounter Details Date Type Department Care Team (Late st Contact Info) Description 02/13/2010 Refill [facility] Medicine [address] [phone] Shannan Vieyra MD Medication Problem Social History [...] documented in this encounter Care Teams Supervisor Phosphoric Acid Relationship Specialty Start Date End Date Shannan Vieyra MD PCP - General 04/08/09 03/15/19 documented as of this encounter
--- OUTSIDE RECORDS SUMMARY | 2024-07-02 20:53 | XMS_ITS | Encounter Summary ---
Author Organization [facility] Address [address] [place] [address] Care Team Providers Care Glass Bead Maker Name Role Phone Unavailable Primary Care Provider Unavailabl e Encounter Details Date Type Department Care Team (Late st Contact Info) Description 02/06/2008 11:27 EDT Hospital Encounter [facility] conversion [address] [place] [address] Juan Pablo Toth MD [employer] [facility] [address] [place] [phone] Social History Tobacco Use Types Packs/Day Years Used Date Smoking Tobacco: Never Smokeless Tobacco: Never Alcohol Use Standard Drinks/Week Comments No 0 (1 standard drink = 0.6 oz pur e alcohol) [facility] Utilities Answer Date Recorded In the past 12 months has [facility] electric, gas, oil, or water company threatened [...] place to sleep or slept in a longterm (including now)? No 10/28/2023 Interpersonal Safety Answer [...]
--- OUTSIDE RECORDS SUMMARY | 2024-07-02 20:53 | XMS_ITS | Encounter Summary ---
Author Organization [facility] Address [address] [place] [address] Care Team Providers Care Dot Net Architect Name Role Phone Shannan Vieyra MD Primary Care Provider Unavail able Reason for Visit * Reason Onset Date Comments Medications Refill 06/06/2012 Encounter Details Date Type Department Care Team (Late st Contact Info) Description 06/06/2012 Refill [facility] Family Medicine [address] [address] Shannan Vieyra MD Medications Refill Social History [...] documented as of this encounter Care Teams Dot Net Architect Relationship Specialty Start Date End Date Shannan Vieyra MD PCP - General 04/08/09 03/15/19 documented as of this encounter
--- OUTSIDE RECORDS SUMMARY | 2024-07-02 20:53 | XMS_ITS | Encounter Summary ---
Author Organization [facility] Address [address] [place] [address] Care Team Providers Care Extruder Operator Multiple Name Role Phone Shannan Vieyra MD Primary Care Provider Unavail able Encounter Details Date Type Department Care Team (Late st Contact Info) Description 03/18/2008 Before PRISM Converted Visit (Maple) [facility] - Maple conversion [address] [place] [address] Miguel Devine MD PhD 111 [facility] 1 [place] [phone] Social History Tobacco Use Types Packs/Day Years [...] PROGRESS/FOLLOWUP NOTE - 03/18/2008 Shannan Vieyra MD [facility] [address] [place] [address], [address] [facility] [phone] Vieyra: I had the pleasure [...] Miguel Devine MD - ROB Job ID: [id number] Doc ID: [id number] cc: Shannan Vieyra MD documented in this encounter Plan of Treatment Not on file documented as of this encounter Visit Diagnoses Not on filedocumented in this encounter Care Teams Extruder Operator Multiple Relationship Specialty Start Date End Date Shannan Vieyra MD PCP - General 6/30/09 6/6/19 documented as of this encounter
--- OUTSIDE RECORDS SUMMARY | 2024-07-02 20:53 | XMS_ITS | Encounter Summary ---
Author Organization [facility] Address [address] [place] [address] Care Team Providers Care Psychiatric Assistant Name Role Phone Unavailable Primary Care Provider Unavailabl e Encounter Details Date Type Department Care Team (Late st Contact Info) Description 11/04/2008 15:16 EST Hospital Encounter [facility] - Maple conversion [address] [place] [address] Miguel Devine MD PhD 111 [facility] 1 [place] [phone] Discharge Disposition: Auto Discharge Social History Tobacco [...] & BLOOD GAS ORDERABLES Performing Organization Address [facility] de Phone Number [facility] [address] [place] [address] * T4 FREE (06/02/2009 15:57 EDT) Free T4 1.4 0.8 - 1.8 ng/dL [facility] Blood specimen (specimen) 06/02/2009 15:57 EDT 06/02/2009 15:58 EDT Juan Pablo Toth MD CHEMISTRY & BLOOD GAS ORDERABLES Performing Organization Address [facility] de Phone Number [facility] [address] [address] documented in this encounter Visit Diagnoses Not on filedocumented in this encounter
--- OUTSIDE RECORDS SUMMARY | 2024-07-02 20:53 | XMS_ITS | Encounter Summary ---
Author Organization [facility] Address [address] [place] [address] Care Team Providers Care Framework Developer Name Role Phone Shannan Vieyra MD Primary Care Provider Unavail able Encounter Details Date Type Department Care Team (Late st Contact Info) Description 11/12/[address] [address] Shannan Vieyra MD Asthma; Contraceptive management; Hypothyroidism; [...] 11/14/2009 added in this encounter Care Teams Framework Developer Relationship Specialty Start Date End Date Shannan Vieyra MD PCP - General 04/08/09 03/15/19 documented as of this encounter
--- OUTSIDE RECORDS SUMMARY | 2024-07-02 20:53 | XMS_ITS | Encounter Summary ---
Author Organization [facility] Address [address] [place] [address] Care Team Providers Care Cupola Man Name Role Phone Shannan Vieyra MD Primary Care Provider Unavail able Reason for Visit * Reason Comments Graves' Disease Encounter Details Date Type Department Care Team (Latest Contact Info) Description 02/08/2011 13:30 EDT Office Visit [facility] Endocrinology - [facility] [address] [place] [address] Juan Pablo Toth MD 62 [facility] [address] [place] [address] Other postablative hypothyroidism (Primary Dx) [...] BLOOD GAS ORDERABLES [facility] [address] [place] [address] * TSH (02/08/2011 14:07 EDT) TSH 1.21 0.35 - 5.00 uIU/ml [facility] Blood specimen (specimen) 02/08/2011 14:07 EDT 02/08/2011 14:09 EDT Juan Pablo Toth MD CHEMISTRY & BLOOD GAS ORDERABLES Performing Organization Address [facility] de Phone Number [facility] [address] [place] [address] * T4 FREE (02/08/2011 14:07 EDT) Free T4 0.8 0.8 - 1.8 ng/dL [facility] Blood specimen (specimen) 02/08/2011 14:07 EDT 02/08/2011 14:09 EDT Juan Pablo Toth MD CHEMISTRY & BLOOD GAS ORDERABLES Performing Organization Address [facility] Phone Number [facility] [address] [place] [address] documented in this encounter Visit Diagnoses Diagnosis [...] 1 Tab by mouth daily. BRAND ONLY/DR. DESAI needs to make an appointment 11/06/2010 02/08/2011 documented as of this encounter Care Teams Cupola Man Relationship Specialty Start Date End Date Shannan Vieyra MD PCP - General 04/08/09 03/15/19 documented as of this encounter
--- OUTSIDE RECORDS SUMMARY | 2024-07-02 20:53 | XMS_ITS | Encounter Summary ---
Author Organization [facility] Address [address] [place] [address] Care Team Providers Care Trolley Wire Installer Name Role Phone Shannan Vieyra MD Primary Care Provider Unavail able Reason for Referral * Consult (Routine/Next Available) - Closed Specialty Diagnoses / Procedures Referred By Julianne gallo Referred To Contact Otolaryngology Diagnoses Hoarseness of voice Leida Man PA-C [address] [employer] [address] [place] [address] Carter Reece MD 111 [facility], Level [address] [place] [address] Referral ID Status Reason Start Date Expiration Date V isits Requested Visits Authorized [id number] Closed Specialty Services Required 06/14/2012 1 1 Question Answer Reason for Request: hoarseness Comments Hoarseness of voice since radioactive iodine tx to thyroid Reason for Visit * Reason Comments Hypertension been running high, h ere for check Encounter Details Date Type Department Care Team (Late st Contact Info) Description 06/14/2012 10:00 EDT Office Visit [facility] Family Medicine [address] [phone] Leida Man PA-C [address] [employer] [address] [place], [place] [phone] Hypertension (Primary Dx); Other iatrogenic hypothyroidism; Grave's [...] Organization Address [facility] de Phone Number [facility] [address] [place] [address] * (ABNORMAL) T3, TOTAL (10/23/2012 16:37 EST) T3, Total 55(L) 60 - 181 ng/dL [facility] Blood specimen (specimen) 10/23/2012 16:37 EST 10/23/2012 18:28 EST Leida Man PA-C CHEMISTRY & BLOOD GAS ORDERABLES Performing Organization Address [facility] Phone Number [facility] [address] [place] [address] * (ABNORMAL) TSH (10/23/2012 16:37 EST) TSH 9.78(H) 0.35 - 5.00 uIU/ml [facility] Blood specimen (specimen) 10/23/2012 16:37 EST 10/23/2012 18:28 EST Leida Man PA-C CHEMISTRY & BLOOD GAS ORDERABLES Performing Organization Address [facility] de Phone Number [facility] [address] [place] [address] * (ABNORMAL) T3, TOTAL (06/14/2012 10:47 EDT) T3, Total 263(H) 60 - 181 ng/dL [facility] Blood specimen (specimen) 06/14/2012 10:47 EDT 06/14/2012 11:59 EDT Leida Man PA-C CHEMISTRY & BLOOD GAS ORDERABLES Performing Organization Address City/[facility]/ZIP Co de Phone Number [facility] [address] [place] [address] * T4 FREE (06/14/2012 10:47 EDT) Free T4 1.5 0.8 - 1.8 ng/dL [facility] Blood specimen (specimen) 06/14/2012 10:47 EDT 06/14/2012 11:59 EDT Leida Man PA-C CHEMISTRY & BLOOD GAS ORDERABLES Performing Organization Address [facility] Co de Phone Number [facility] [address] [place] [address] * (ABNORMAL) TSH (06/14/2012 10:47 EDT) [facility] TSH <0.02(L) 0.35 - 5.00 uIU/ml [facility] Blood specimen (specimen) 06/14/2012 10:47 EDT 06/14/2012 11:59 EDT Leida Man PA-C CHEMISTRY & BLOOD GAS ORDERABLES Performing Organization Address [facility] Co de Phone Number [facility] [address] [place] [address] * BASIC METABOLIC PANEL (06/14/2012 10:47 EDT) Pathologist [facility] Sodium 136 136 - 145 mEq/L [facility] [...] BLOOD GAS ORDERABLES [facility] [address] [place] [address] documented in this encounter Visit Diagnoses Diagnosis [...] documented as of this encounter Care Teams Trolley Wire Installer Relationship Specialty Start Date End Date Shannan Vieyra MD PCP - General 04/08/09 03/15/19 documented as of this encounter
--- OUTSIDE RECORDS SUMMARY | 2024-07-02 20:53 | XMS_ITS | Encounter Summary ---
Author Organization [facility] Address [address] [place] [address] Care Team Providers Care Material Chaser Name Role Phone Shannan Vieyra MD Primary Care Provider Unavail able Encounter Details Date Type Department Care Team (Late st Contact Info) Description 08/14/2010 Abstract [facility] Endocrinology - [facility] [address] [place] [address] Juan Pablo Toth MD 62 [facility] [address] [place] [address] Social History Tobacco Use Types [...] 02/08/2011 added in this encounter Care Teams Material Chaser Relationship Specialty Start Date End Date Shannan Vieyra MD PCP - General 04/08/09 03/15/19 documented as of this encounter
--- OUTSIDE RECORDS SUMMARY | 2024-07-02 20:53 | XMS_ITS | Encounter Summary ---
Author Organization [facility] Address [address] [place] [address] Care Team Providers Care Warehouse Operations Manager Name Role Phone Shannan Vieyra MD Primary Care Provider Unavail able Encounter Details Date Type Department Care Team (Late st Contact Info) Description 04/15/2011 Orders Only [facility] Endocrinology - [address] [address] Deana Jiang RN Grave's disease [...] BLOOD GAS ORDERABLES [facility] [address] [place] [address] * (ABNORMAL) T3, TOTAL (05/31/2011 15:42 EDT) T3, Total 213(H) 60 - 181 ng/dL [facility] Blood specimen (specimen) 05/31/2011 15:42 EDT 05/31/2011 16:51 EDT Juan Pablo Toth MD CHEMISTRY & BLOOD GAS ORDERABLES Performing Organization Address [facility] de Phone Number [facility] [address] [place] [address] * T4 FREE (05/31/2011 15:42 EDT) Free T4 1.5 0.8 - 1.8 ng/dL [facility] Blood specimen (specimen) 05/31/2011 15:42 EDT 05/31/2011 16:51 EDT Juan Pablo Toth MD CHEMISTRY & BLOOD GAS ORDERABLES Performing Organization Address [facility] Phone Number [facility] [address] [place] [address] documented in this encounter Visit Diagnoses Diagnosis 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 NEEDS BRAND NAME FOR PROPER ABSORPTION 02/09/2011 04/15/2011 documented as of this encounter Care Teams Warehouse Operations Manager Relationship Specialty Start Date End Date Shannan Vieyra MD PCP - General 04/08/09 03/15/19 documented as of this encounter
--- OUTSIDE RECORDS SUMMARY | 2024-07-02 20:53 | XMS_ITS | Encounter Summary ---
Author Organization [facility] Address [address] [place] [address] Care Team Providers Care Digital Media Coordinator Name Role Phone Shannan Vieyra MD Primary Care Provider Unavail able Encounter Details Date Type Department Care Team (Latest Contact Info) Description 05/31/2011 15:30 EDT - 05/31/2011 23:59 EDT Hospital Encounter [address] [address] Juan Pablo Toth MD [employer] [address] [place] [phone] Discharge Disposition: Home or Self Care [...] Code Departure Means Destination Home or Self Jail documented in this encounter Plan of Treatment Not on file documented as of this encounter Visit Diagnoses Not on filedocumented in this encounter Care Teams Digital Media Coordinator Relationship Specialty Start Date End Date Shannan Vieyra MD PCP - General 04/08/09 03/15/19 documented as of this encounter
--- OUTSIDE RECORDS SUMMARY | 2024-07-02 20:53 | XMS_ITS | Encounter Summary ---
Author Organization [facility] Address [address] [place] [address] Care Team Providers Care Gypsum Block Setter Name Role Phone Shannan Vieyra MD Primary Care Provider Unavail able Encounter Details Date Type Department Care Team (Late st Contact Info) Description 05/31/2011 Phlebotomy Only [address] [address] Staff Research Associate, Outpatient Grave's disease Social History Tobacco Use [...] & BLOOD GAS ORDERABLES Performing Organization Address [facility] Co de Phone Number [facility] [address] [place] [address] * (ABNORMAL) T3, TOTAL (05/31/2011 15:42 EDT) T3, Total 213(H) 60 - 181 ng/dL [facility] Blood specimen (specimen) 05/31/2011 15:42 EDT 05/31/2011 16:51 EDT Juan Pablo Toth MD CHEMISTRY & BLOOD GAS ORDERABLES Performing Organization Address [facility] de Phone Number [facility] [address] [place] [address] * T4 FREE (05/31/2011 15:42 EDT) Free T4 1.5 0.8 - 1.8 ng/dL [facility] Blood specimen (specimen) 05/31/2011 15:42 EDT 05/31/2011 16:51 EDT Juan Pablo Toth MD CHEMISTRY & BLOOD GAS ORDERABLES Performing Organization Address [facility] de Phone Number [facility] [address] [place] [address] documented in this encounter Visit Diagnoses Diagnosis Grave's disease Toxic diffuse goiter without mention of thyrotoxic crisis or storm documented in this encounter Care Teams Gypsum Block Setter Relationship Specialty Start Date End Date Shannan Vieyra MD PCP - General 04/08/09 03/15/19 documented as of this encounter
--- OUTSIDE RECORDS SUMMARY | 2024-07-02 20:53 | XMS_ITS | Encounter Summary ---
Author Organization [facility] Address [address] [place] [address] Care Team Providers Care Roofer Gypsum Name Role Phone Unavailable Primary Care Provider Unavailabl e Encounter Details Date Type Department Care Team (Latest Contact Info) Description 12/04/2007 11:22 EST - 12/04/2007 11:59 EST Hospital Encounter [facility] - Maple conversion [address] [place], [place] [phone] Juan Pablo Toth MD [address] [place] [phone] Discharge Disposition: Auto Discharge Social History [...]
--- OUTSIDE RECORDS SUMMARY | 2024-07-02 20:53 | XMS_ITS | Encounter Summary ---
Author Organization [facility] Address [address] [place] [address] Care Team Providers Care Work Environment Safety Inspector Name Role Phone Shannan Vieyra MD Primary Care Provider Unavail able Encounter Details Date Type Department Care Team (Late st Contact Info) Description 12/17/2009 Abstract [facility] Cardiology - [address] [place], [place] [phone] Shannan Vieyra MD Social History Tobacco Use [...] 01/16/2010 added in this encounter Care Teams Work Environment Safety Inspector Relationship Specialty Start Date End Date Shannan Vieyra MD PCP - General 04/08/09 03/15/19 documented as of this encounter
--- OUTSIDE RECORDS SUMMARY | 2024-07-02 20:53 | XMS_ITS | Encounter Summary ---
Author Organization [facility] Address [address] [place] [address] Care Team Providers Care Student Truck Driver Name Role Phone Unavailable Primary Care Provider Unavailabl e Encounter Details Date Type Department Care Team (Late st Contact Info) Description 03/18/2008 15:10 EDT Hospital Encounter [facility] - Maple conversion [address] [place] [address] Miguel Devine MD PhD [address] [facility] [address] [place] [phone] Discharge Disposition: Auto Discharge Social History Tobacco [...]
--- OUTSIDE RECORDS SUMMARY | 2024-07-02 20:53 | XMS_ITS | Encounter Summary ---
Author Organization [facility] Address [address] [place] [address] Care Team Providers Care Sprinkler Installer Name Role Phone Shannan Vieyra MD Primary Care Provider Unavail able Encounter Details Date Type Department Care Team (Late st Contact Info) Description 12/04/2007 Before PRISM Converted Visit (Maple) [facility] - Maple conversion [address] [place] [address] Juan [facility] [address] [place] [phone] Social History Tobacco Use Types Packs/Day [...] MD 12/06/2007 12:25 Juan Pablo Toth MD [facility] dividing machine operator D: - Juan Pablo Toth MD - DM Job ID: [id number] Doc ID: [id number] cc: Shannan Vieyra MD ADDENDUM - still toxic Asked to double atenolol 12/04/2007 12:09 T4, Free H 4.1 ng/dL 0.8-1.8 Final * 12/04/2007 12:09 TSH L <0.02 uIU/m... 0.35-5.00 Final * documented in this encounter Plan of Treatment Not on file documented as of this encounter Visit Diagnoses Not on filedocumented in this encounter Care Teams Sprinkler Installer Relationship Specialty Start Date End Date Shannan Vieyra MD PCP - General 04/08/09 03/15/19 documented as of this encounter
--- OUTSIDE RECORDS SUMMARY | 2024-07-02 20:53 | XMS_ITS | Encounter Summary ---
Author Organization [facility] Address [address] [place] [address] Care Team Providers Care Storeroom Supervisor Name Role Phone Shannan Vieyra MD Primary Care Provider Unavail able Reason for Visit * Reason Onset Date Comments Letter for School/Work 02/16/2010 Encounter Details Date Type Department Care Team (Late st Contact Info) Description 02/16/2010 Telephone [facility] Family Medicine - [address] [phone] Shannan Vieyra MD Letter for School/Work Social [...] Dr. Vieyra. Please call when ready to pick pulling machine tender. documented in this encounter Plan of Treatment Not on file documented as of this encounter Visit Diagnoses Not on filedocumented in this encounter Care Teams Storeroom Supervisor Relationship Specialty Start Date End Date Shannan Vieyra MD PCP - General 04/08/09 03/15/19 documented as of this encounter
--- OUTSIDE RECORDS SUMMARY | 2024-07-02 20:53 | XMS_ITS | Encounter Summary ---
Author Organization [facility] Address [address] [place] [address] Care Team Providers Care Manager Clinical Services Name Role Phone Unavailable Primary Care Provider Unavailabl e Encounter Details Date Type Department Care Team (Latest Contact Info) Description 11/07/2007 10:38 EST - 11/07/2007 11:59 EST Hospital Encounter [facility] [address] [place] [address] Juan Pablo Toth MD [address] [place] [phone] Discharge Disposition: Auto Discharge Social History [...]
--- OUTSIDE RECORDS SUMMARY | 2024-07-02 20:53 | XMS_ITS | Encounter Summary ---
Author Organization [facility] Address [address] [place] [address] Care Team Providers Care Printed Circuit Board Drafter Name Role Phone Shannan Vieyra MD Primary Care Provider Unavail able Encounter Details Date Type Department Care Team (Late st Contact Info) Description 02/08/2011 Phlebotomy Only [address] [address] Airport Maintenance Chief, Outpatient Other postablative hypothyroidism Social History Tobacco [...] & BLOOD GAS ORDERABLES Performing Organization Address [facility] Phone Number [facility] [address] [place] [address] * TSH (02/08/2011 14:07 EDT) TSH 1.21 0.35 - 5.00 uIU/ml [facility] Blood specimen (specimen) 02/08/2011 14:07 EDT 02/08/2011 14:09 EDT Juan Pablo Toth MD CHEMISTRY & BLOOD GAS ORDERABLES Performing Organization Address [facility] de Phone Number [facility] [address] [place] [address] * T4 FREE (02/08/2011 14:07 EDT) Free T4 0.8 0.8 - 1.8 ng/dL [facility] Blood specimen (specimen) 02/08/2011 14:07 EDT 02/08/2011 14:09 EDT Juan Pablo Toth MD CHEMISTRY & BLOOD GAS ORDERABLES Performing Organization Address [facility] Phone Number [facility] [address] [place] [address] documented in this encounter Visit Diagnoses Diagnosis Other postablative hypothyroidism documented in this encounter Care Teams Printed Circuit Board Drafter Relationship Specialty Start Date End Date Shannan Vieyra MD PCP - General 04/08/09 03/15/19 documented as of this encounter
--- OUTSIDE RECORDS SUMMARY | 2024-07-02 20:53 | XMS_ITS | Encounter Summary ---
Author Organization [facility] Address [address] [place] [address] Care Team Providers Care Duck Operator Name Role Phone Unavailable Primary Care Provider Unavailabl e Encounter Details Date Type Department Care Team (Late st Contact Info) Description 10/15/2008 15:58 EST Hospital Encounter [address] [address] Judith Ballard MBBS MPH 1 [facility], [address] [place] [phone] Social History Tobacco Use Types Packs/Day Years Used Date Smoking Tobacco: Never Smokeless Tobacco: Never Alcohol Use Standard Drinks/Week Comments No 0 (1 standard drink = 0.6 oz pur e alcohol) [facility] Utilities Answer Date Recorded In the past 12 months has [employer], gas, oil, or water company threatened [...]
--- OUTSIDE RECORDS SUMMARY | 2024-07-02 20:53 | XMS_ITS | Encounter Summary ---
Author Organization [facility] Address [address] [place] [address] Care Team Providers Care Chemical Production Technician Name Role Phone Shannan Vieyra MD Primary Care Provider Unavail able Reason for Visit * Reason Comments Hypertension FOLLOW UP Encounter Details Date Type Department Care Team (Late st Contact Info) Description 11/14/2009 16:00 EST Office Visit [facility] Family Medicine [place] [phone] Leida Cerda PA-C [address] [place] [address] [address] [place], [place] [address] Hypertension (Primary Dx); Grave's disease; Asthma Social [...] Glucose, Serum 82 70 - 100 mg/dl [facility] Fasting? No [facility] Blood specimen (specimen) 11/14/2009 16:49 EST 11/14/2009 18:16 EST Leida Cerda PA-C CHEMISTRY & BLOOD GAS ORDERABLES [facility] [address] [place] [address] documented in this encounter Visit Diagnoses Diagnosis [...] 11/06/2010 added in this encounter Care Teams Chemical Production Technician Relationship Specialty Start Date End Date Shannan Vieyra MD PCP - General 04/08/09 03/15/19 documented as of this encounter
--- OUTSIDE RECORDS SUMMARY | 2024-07-02 20:53 | XMS_ITS | Encounter Summary ---
Author Organization [facility] Address [address] [place] [address] Care Team Providers Care Customer Agent Name Role Phone Shannan Vieyra MD Primary Care Provider Unavail able Reason for Visit * Reason Comments Thyroid Problem Encounter Details Date Type Department Care Team (Latest Contact Info) Description 03/23/2011 11:00 EDT Office Visit [facility] Endocrinology - [address] [address] Juan Pablo Toth MD 62 [facility] [address] [place] [address] Other postablative hypothyroidism (Primary Dx) [...] of: 1. Other postablative hypothyroidism (244.1) HPI: Drois Kerr is a 31 y.o. female who [...] 1.21 02/08/2011 Lab Results Component Value Date [id number] 116 03/23/2011 Lab Results Component Value Date N1DBAQY 23.9* 10/25/2007 Lab Results Component Value Date [...] BLOOD GAS ORDERABLES [facility] [address] [place] [address] documented in this encounter Visit Diagnoses Diagnosis Other postablative hypothyroidism- Primary documented in this encounter Orders Lab Orders Without Results Count Last Ordered D ate First Ordered Date T4 FREE 1 03/23/2011 TSH 1 03/23/2011 documented in this encounter Care Teams Customer Agent Relationship Specialty Start Date End Date Shannan Vieyra MD PCP - General 04/08/09 03/15/19 documented as of this encounter
--- OUTSIDE RECORDS SUMMARY | 2024-07-02 20:53 | XMS_ITS | Encounter Summary ---
Author Organization Health system Address [address] [place] [address] Care Team Providers Care Community Ambassador Name Role Phone Shannan Vieyra MD Primary Care Provider Unavail able Reason for Visit * Reason Onset Date Comments Results 03/25/2011 Encounter Details Date Type Department Care Team (Late st Contact Info) Description 03/25/2011 Telephone [facility] Endocrinology - [facility] [address] [place] [address] Juan Pablo Toth MD 62 [facility] [address] [place] [phone] Results Social History Tobacco Use [...] on filedocumented in this encounter Care Teams Community Ambassador Relationship Specialty Start Date End Date Shannan Vieyra MD PCP - General 04/08/09 03/15/19 documented as of this encounter
--- OUTSIDE RECORDS SUMMARY | 2024-07-02 20:53 | XMS_ITS | Encounter Summary ---
Author Organization [facility] Address [address] [place] [address] Care Team Providers Care Brim Stretching Machine Operator Name Role Phone Shannan Vieyra MD Primary Care Provider Unavail able Reason for Visit * Reason Onset Date Comments Insect Bite 05/21/2012 Encounter Details Date Type Department Care Team (Late st Contact Info) Description 05/21/[address] [address] Oli Yanes MD Insect Bite Social History [...] lesion does not improve. OLI YANES MD Drilling Superintendent Pager [phone] 05/21/2012 19:31 documented in this encounter Plan of Treatment Not on file documented as of this encounter Visit Diagnoses Not on filedocumented in this encounter Care Teams Brim Stretching Machine Operator Relationship Specialty Start Date End Date Shannan Vieyra MD PCP - General 04/08/09 03/15/19 documented as of this encounter
--- OUTSIDE RECORDS SUMMARY | 2024-07-02 20:53 | XMS_ITS | Encounter Summary ---
Author Organization [facility] Address [address] [place] [address] Care Team Providers Care Coal Handling Supervisor Name Role Phone Shannan Vieyra MD Primary Care Provider Unavail able Reason for Visit * Reason Onset Date Comments Medication Questions 03/04/2011 Encounter Details Date Type Department Care Team (Late st Contact Info) Description 03/04/2011 Telephone [facility] Endocrinology - [facility] [address] [place] [address] Juan Pablo Toth MD 62 [facility] [address] [place] [phone] Medication Questions Social History Tobacco [...] Telephone Encounter - Sita Mo - 03/04/2011 3168 EDT Pt wants to speak to Dr Toth about changing medications. documented in this encounter Plan of Treatment Not on file documented as of this encounter Visit Diagnoses Not on filedocumented in this encounter Care Teams Coal Handling Supervisor Relationship Specialty Start Date End Date Shannan Vieyra MD PCP - General 04/08/09 03/15/19 documented as of this encounter
--- OUTSIDE RECORDS SUMMARY | 2024-07-02 20:53 | XMS_ITS | Encounter Summary ---
Author Organization [facility] Address [address] [place] [address] Care Team Providers Care Gas Engine Operator Compressors Name Role Phone Shannan Vieyra MD Primary Care Provider Unavail able Encounter Details Date Type Department Care Team (Latest Contact Info) Description 02/09/2011 Orders Only [facility] Endocrinology - [facility] [address] [place] [address] Juan Pablo Toth MD 62 [facility] [address] [place] [address] Other postablative hypothyroidism (Primary Dx) [...] & BLOOD GAS ORDERABLES Performing Organization Address [facility] [[email or web address]] Co de Phone Number [facility] [address] [place] [address] * T4 FREE (03/23/2011 11:55 EDT) Free T4 1.4 0.8 - 1.8 ng/dL [facility] Blood specimen (specimen) 03/23/2011 11:55 EDT 03/23/2011 11:56 EDT Juan Pablo Toth MD CHEMISTRY & BLOOD GAS ORDERABLES Performing Organization Address [facility] de Phone Number [facility] [address] [place] [address] documented in this encounter Visit Diagnoses Diagnosis Other postablative hypothyroidism- Primary documented in this encounter Discontinued Medications Medication Sig Discontinue Reason Start Date End Da te SYNTHROID 100 mcg tablet Take 1 Tab by mouth daily. NEEDS BRAND NAME FOR PROPER ABSORPTION 02/08/2011 02/09/2011 documented as of this encounter Care Teams Gas Engine Operator Compressors Relationship Specialty Start Date End Date Shannan Vieyra MD PCP - General 04/08/09 03/15/19 documented as of this encounter
--- OUTSIDE RECORDS SUMMARY | 2024-07-02 20:53 | XMS_ITS | Encounter Summary ---
Author Organization [facility] Address [address] [place] [address] Care Team Providers Care Banquet Captain Name Role Phone Shannan Vieyra MD Primary Care Provider Unavail able Reason for Visit * Reason Comments Hypertension BP check Encounter Details Date Type Department Care Team (Late st Contact Info) Description 03/09/2011 9:30 EDT Office Visit [facility] Family Medicine [place] [phone] Leida Man PA-C [address] [phone] Hypertension; Fatigue; Myalgia; Vitamin D deficiency Social [...] on her hypothyroidism. 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 Hypertension This is a chronic problem. Associated [...] ORDERABLES Performing Organization Address [facility] Co de Phone Number [facility] [address] [place] [address] * HEMAGRAM (03/09/2011 10:42 EDT) WBC 7.25 [...] HEMATOLOGY & PF4 ORDERABLES Performing Organization Address City/[facility]/ZIP Co de Phone Number [facility] [address] [place] [address] * COMPREHENSIVE METABOLIC PANEL (CMP) (03/09/2011 10:42 [...] ORDERABLES Performing Organization Address [facility] Co de Phone Number [facility] [address] [place] [address] documented in this encounter Visit Diagnoses Diagnosis [...] documented as of this encounter Care Teams Banquet Captain Relationship Specialty Start Date End Date Shannan Vieyra MD PCP - General 04/08/09 03/15/19 documented as of this encounter
--- OUTSIDE RECORDS SUMMARY | 2024-07-02 20:53 | XMS_ITS | Encounter Summary ---
Author Organization [facility] Address [address] [place] [address] Care Team Providers Care Tank Builder Helper Name Role Phone Shannan Winter MD Primary Care Provider Unavail able Encounter Details Date Type Department Care Team (Late st Contact Info) Description 12/31/2009 Results Only [facility] Laboratory Services - [facility] ([facility]) [address] [place] [id number] Julita Martinez MD 111 [facility] [address] [place] [phone] Social History Tobacco Use Types Packs/Day Years [...] ? DORIS KERR ? Accession #: ? [id number] ? : ? 1980 (Age: 29) ??F [...] MD PATHOLOGY ORDERABLES [facility] [address] [place] [address] documented in this encounter Visit Diagnoses Not on filedocumented in this encounter Care Teams Tank Builder Helper Relationship Specialty Start Date End Date Shannan Winter MD PCP - General 04/08/09 03/15/19 documented as of this encounter
--- OUTSIDE RECORDS SUMMARY | 2024-07-02 20:53 | XMS_ITS | Encounter Summary ---
Author Organization [facility] Address [address] [place] [address] Care Team Providers Care Supervisor Frame Assembly Name Role Phone Shannan Vieyra MD Primary Care Provider Unavail able Encounter Details Date Type Department Care Team (Late st Contact Info) Description 02/06/2008 Results Only [facility] Endocrinology - [facility] [address] [place] [address] Juan Pablo Toth MD 62 [facility] [address] [place] [address] Social History Tobacco Use Types [...] GAS ORDERABLES Performing Organization Address [facility] Co de Phone Number [facility] [address] [place] [address] * T3, TOTAL (02/06/2008 12:07 EDT) T3, Total 87 60 - 181 ng/dL [facility] 02/06/2008 12:0 7 EDT 02/06/2008 12:08 EDT Juan Pablo Toth MD CHEMISTRY & BLOOD GAS ORDERABLES Performing Organization Address [facility] de Phone Number [facility] [address] [place] [address] * (ABNORMAL) T4 FREE (02/06/2008 12:07 EDT) Free T4 0.7(L) 0.8 - 1.8 ng/dL [facility] 02/06/2008 12:0 7 EDT 02/06/2008 12:08 EDT Juan Pablo Toth MD CHEMISTRY & BLOOD GAS ORDERABLES Performing Organization Address [facility] de Phone Number [facility] [address] [place] [address] documented in this encounter Visit Diagnoses Not on filedocumented in this encounter Care Teams Supervisor Frame Assembly Relationship Specialty Start Date End Date Shannan Vieyra MD PCP - General 04/08/09 03/15/19 documented as of this encounter
--- OUTSIDE RECORDS SUMMARY | 2024-07-02 20:53 | XMS_ITS | Encounter Summary ---
Author Organization [facility] Address [address] [place] [address] Care Team Providers Care Water Service Supervisor Name Role Phone Shannan Vieyra MD Primary Care Provider Unavail able Encounter Details Date Type Department Care Team (Late st Contact Info) Description 02/06/2008 Before PRISM Converted Visit (Maple) [facility] - Maple conversion [address] [place] [address] Juan Pablo Toth MD [employer] [address] [place] [phone] Social History Tobacco Use Types Packs/Day [...] 02/09/2008 12:25 Juan Pablo Toth MD [facility] Diabetes Fisk building custodian D: - Juan Pablo Toth MD - [facility] Job ID: [id number] Doc ID: [id number] cc: Shannan Vieyra MD ADDENDUM Start on [...] on filedocumented in this encounter Care Teams Water Service Supervisor Relationship Specialty Start Date End Date Shannan Vieyra MD PCP - General 04/08/09 03/15/19 documented as of this encounter
--- OUTSIDE RECORDS SUMMARY | 2024-07-02 20:53 | XMS_ITS | Encounter Summary ---
Author Organization [facility] Address [address] [place] [address] Care Team Providers Care Street Light Lamp Cleaner Name Role Phone Shannan Vieyra MD Primary Care Provider Unavail able Reason for Visit * Reason Onset Date Comments Results 02/09/2011 Encounter Details Date Type Department Care Team (Late st Contact Info) Description 02/09/2011 Telephone [facility] Endocrinology - [address] [address] Madan Jiang, RN Results Social [...] on filedocumented in this encounter Care Teams Street Light Lamp Cleaner Relationship Specialty Start Date End Date Shannan Vieyra MD PCP - General 04/08/09 03/15/19 documented as of this encounter
--- OUTSIDE RECORDS SUMMARY | 2024-07-02 20:53 | XMS_ITS | Encounter Summary ---
Author Organization [facility] Address [address] [place] [address] Care Team Providers Care Senior Administrative Support Name Role Phone Shannan Vieyra MD Primary Care Provider Unavail able Encounter Details Date Type Department Care Team (Late st Contact Info) Description 03/23/2011 Phlebotomy Only [address] [address] Margarine Churn Operator, Outpatient Other postablative hypothyroidism Social History Tobacco [...] & BLOOD GAS ORDERABLES Performing Organization Address [facility] Co de Phone Number [facility] [address] [place] [address] * (ABNORMAL) TSH (03/23/2011 11:55 EDT) TSH 0.04(L) 0.35 - 5.00 uIU/ml [facility] Blood specimen (specimen) 03/23/2011 11:55 EDT 03/23/2011 11:56 EDT Juan Pablo Toth MD CHEMISTRY & BLOOD GAS ORDERABLES Performing Organization Address [facility] de Phone Number [facility] [address] [place] [address] * T4 FREE (03/23/2011 11:55 EDT) Free T4 1.4 0.8 - 1.8 ng/dL [facility] Blood specimen (specimen) 03/23/2011 11:55 EDT 03/23/2011 11:56 EDT Juan Pablo Toth MD CHEMISTRY & BLOOD GAS ORDERABLES Performing Organization Address [facility] de Phone Number [facility] [address] [place] [address] documented in this encounter Visit Diagnoses Diagnosis Other postablative hypothyroidism documented in this encounter Care Teams Senior Administrative Support Relationship Specialty Start Date End Date Shannan Vieyra MD PCP - General 04/08/09 03/15/19 documented as of this encounter
--- OUTSIDE RECORDS SUMMARY | 2024-07-02 20:53 | XMS_ITS | Encounter Summary ---
Author Organization [facility] Address [address] [place] [address] Care Team Providers Care Hematology Specialist Name Role Phone Shannan Vieyra MD Primary Care Provider Unavail able Reason for Visit * Reason Comments Cough For about 2 weeks, c ant catch her breath, just seems to get worse. Cough is productive. Encounter Details Date Type Department Care Team (Late st Contact Info) Description 11/29/2011 9:30 EST Office Visit [facility] Family Medicine [address] [phone] Jayashree Torres MD [address] [place] [phone] Bronchitis, acute; RAD (reactive airway disease) [...] the original note were not included. [facility] Patient Instructions Bronchitis in Adults: After Your [...] antibiotics. Get some extra rest. Take an cfya-nrx-zakgfhn pain medicine, such as acetaminophen (Tylenol), ibuprofen (Advil, Motrin),or naproxen (Aleve) to reduce fever and relieve body aches. Read and follow all instructions on thelabel. Take an rcfo-tkk-txjujww cough medicine that contains dextromethorphan to help [...] Where can you learn more? Go to [email or web address]/fahc Enter H333 in the search box to learn more about Bronchitis in Adults: After Your Visit. ?? [phone] [facility] Care instructions adapted under license by [facility], [facility]. This care instruction is for use with your licensed healthcare professional. If you have questions about a medical condition or this instruction, always ask your healthcare professional. [facility] disclaims any warranty or liability for your use of this information. Content Version: 8.9.75509; Last Revised: January 15, 2009[facility] Patient Instructions Learning About Asthma Triggers What [...] action plan, follow the plan. In general: NNDH-CZRMC-FJAK: [place]; MARGIN-BOTTOM: 0mm Use your quick-relief inhaler as directed by your doctor. If your symptoms do not get better after you use your medicine, have someone take you to the emergency room. Call an ambulance if needed. If your doctor has given you other inhaled medicines or steroid pills, take them as directed. Where can you learn more? Go to [email or web address]/fahc Enter M564 in the search box to learn more about Learning About Asthma Triggers. ?? [phone] [employer]. Care instructions adapted under license by [facility], Inc. This care instruction is for use with your licensed healthcare professional. If you have questions about a medical condition or this instruction, always ask your healthcare professional. [employer] disclaims any warranty or liability for your use of this information. Content Version: 8.9.24510; Last Revised: December 15, 2009[facility] Patient Instructions Using a Metered-Dose Inhaler: After [...] a Metered-Dose Inhaler: After Your Visit. ?? [phone] [employer]. Care instructions adapted under license by [facility], [facility]. This care instruction is for use with your licensed healthcare professional. If you have questions about a medical condition or this instruction, always ask your healthcare professional. [employer] disclaims any warranty or liability for your use of this information. Content Version: 8.9.44014; Last Revised: March 27, 2010 documented in [...] to get worse. Cough is productive. 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
--- OUTSIDE RECORDS SUMMARY | 2024-07-02 20:53 | XMS_ITS | Encounter Summary ---
Author Organization [facility] Address [address] [place] [address] Care Team Providers Care National Van Owner Operator Name Role Phone Shannan Vieyra MD Primary Care Provider Unavail able Reason for Referral * Consult, Test and Treat (Routine/Next Available) - Closed Specialty Diagnoses / Procedures Referred By Julianne gallo Referred To Contact Speech Therapy Diagnoses Dysphonia Carter Reece MD [address] [place] [phone] Referral ID Status Reason Start Date Expiration Date V isits Requested Visits Authorized [id number] Closed Specialty Services Required 09/13/2012 1 1 Question Answer Reason for Request: high pitched, squeky voice with supraglottic hyperfunction Type of SOFT SUGAR OPERATOR HEAD Eval: Voice Eval & Treat Reason for Visit * Reason Comments Hoarse for about 5 years Encounter Details Date Type Department Care Team (Late st Contact Info) Description 09/13/2012 15:10 EST Office Visit [facility] ENT- [address] [address] Carter Reece MD [address] [place] [phone] Dysphonia (Primary Dx) Social History Tobacco [...] strained, squeaky. 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 No dysphagia or GERD. No sore [...] or masses. Optimize vocal hygiene- handouts provided SOFT SUGAR OPERATOR HEAD referral for voice therapy- should respond well RTO 3 months during voice clinic documented in this encounter Plan of Treatment Scheduled Referrals Name Type Priority Associated Diagnoses Orde r Schedule AMB CONSULT SPEECH & LANGUAGE PATHOLOGY Outpatient Referral Routine Dysphonia Ordered: 09/13/2012 documented as of this encounter Visit Diagnoses Diagnosis Dysphonia- Primary documented in this encounter Care Teams National Van Owner Operator Relationship Specialty Start Date End Date Shannan Vieyra MD PCP - General 04/08/09 03/15/19 documented as of this encounter
--- OUTSIDE RECORDS SUMMARY | 2024-07-02 20:53 | XMS_ITS | Encounter Summary ---
Author Organization [facility] Address [address] [place] [address] Care Team Providers Care Network Support Manager Name Role Phone Unavailable Primary Care Provider Unavailabl e Encounter Details Date Type Department Care Team (Latest Contact Info) Description 12/27/2007 21:28 EDT Hospital Encounter [facility] - Other [address] [place] [address] Juan Pablo Toth MD [address] [place] [address] [place] [phone] Discharge Disposition: Home or Self Care [...]
--- OUTSIDE RECORDS SUMMARY | 2024-07-02 20:53 | XMS_ITS | Encounter Summary ---
Author Organization [facility] Address [address] [place] [address] Care Team Providers Care Equipment Technician Name Role Phone Shannan Vieyra MD Primary Care Provider Unavail able Encounter Details Date Type Department Care Team (Late st Contact Info) Description 01/19/2010 Orders Only [facility] Medicine - [place] [phone] Leida Cerda PA-C [address] [facility] [address] [place], [place] [address] Grave's disease (Primary Dx) Social History Tobacco [...] disease [facility] Number for problems [id number] or [id number] [facility] Accession number [id number] [facility] Acknowledge ABP Done [facility] 01/19/2010 13:4 1 EDT 01/19/2010 13:47 EDT Leida Cerda PA-C HEMATOLOGY & PF4 ORDERABLES Performing Organization Address City/State/[facility] Co de Phone Number [facility] [address] [place] [address] documented in this encounter Visit Diagnoses Diagnosis Grave's disease- Primary Toxic diffuse goiter without mention of thyrotoxic crisis or storm documented in this encounter Care Teams Equipment Technician Relationship Specialty Start Date End Date Shannan Vieyra MD PCP - General 04/08/09 03/15/19 documented as of this encounter
--- OUTSIDE RECORDS SUMMARY | 2024-07-02 20:53 | XMS_ITS | Encounter Summary ---
Author Organization [facility] Address [address] [place] [address] Care Team Providers Care Shift Manager Name Role Phone Shannan Vieyra MD Primary Care Provider Unavail able Reason for Visit * Reason Onset Date Comments Medications Refill 02/24/2011 Encounter Details Date Type Department Care Team (Late st Contact Info) Description 02/24/[address] [address] Shannan Vieyra MD Medications Refill Social History [...] hypertension documented in this encounter Care Teams Shift Manager Relationship Specialty Start Date End Date Shannan Vieyra MD PCP - General 04/08/09 03/15/19 documented as of this encounter
--- OUTSIDE RECORDS SUMMARY | 2024-07-02 20:53 | XMS_ITS | Encounter Summary ---
Author Organization [facility] Address [address] [place] [address] Care Team Providers Care Millinery Copyist Name Role Phone Unavailable Primary Care Provider Unavailabl e Encounter Details Date Type Department Care Team (Late st Contact Info) Description 07/01/2008 10:29 EDT - 07/01/2008 11:[address] [facility] - Other [address] [place] [address] Denice Martinez MD [address] [facility] [address] [place] [phone] Discharge Disposition: Home or Self Care Social [...]
--- OUTSIDE RECORDS SUMMARY | 2024-07-02 20:53 | XMS_ITS | Encounter Summary ---
Author Organization [facility] Address [address] [place] [address] Care Team Providers Care Plastics Fabricator Name Role Phone Shannan Vieyra MD Primary Care Provider Unavail able Reason for Visit * Reason Onset Date Comments Urinary Tract Infection 12/04/2010 Encounter Details Date Type Department Care Team (Late st Contact Info) Description 12/04/[address] [phone] Shannan Vieyra MD Urinary Tract Infection Social [...] Encounter - Shannan Vieyra MD - 12/04/2010 1733 EST Agree. * Telephone Encounter - Tracy Ac RN - 12/04/2010 172 EST Phone call to Doris Will treat this as an acute UTI and call medication into her pharmacy in [place] (she is vacationing) with approval from Dr. [...] 1644 EST SHE IS ON VAC IN [place] HAS A UTI. WOULD LIKE TO HAVE SOME MEDS CALLED IN FOR IT. documented in this encounter Plan of Treatment Not on file documented as of this encounter Visit Diagnoses Not on filedocumented in this encounter Care Teams Plastics Fabricator Relationship Specialty Start Date End Date Shannan Vieyra MD PCP - General 04/08/09 03/15/19 documented as of this encounter
--- OUTSIDE RECORDS SUMMARY | 2024-07-02 20:53 | XMS_ITS | Encounter Summary ---
Author Organization [facility] Address [address] [place] [address] Care Team Providers Care Hip Hop Performers Name Role Phone Shannan Vieyra MD Primary Care Provider Unavail able Encounter Details Date Type Department Care Team (Late st Contact Info) Description 12/04/2007 Results Only [facility] Endocrinology - [facility] [address] [place] [address] Juan Pablo Toth MD [address] [facility] [address] [place] [phone] Social History Tobacco Use Types [...] & BLOOD GAS ORDERABLES Performing Organization Address [facility] Co de Phone Number [facility] [address] [place] [address] * (ABNORMAL) T4 FREE (12/04/2007 12:09 EST) Free T4 4.1(H) 0.8 - 1.8 ng/dL [facility] 12/04/2007 12:0 9 EST 12/04/2007 12:10 EST Juan Pablo Toth MD CHEMISTRY & BLOOD GAS ORDERABLES Performing Organization Address [facility] de Phone Number [facility] [address] [place] [address] documented in this encounter Visit Diagnoses Not on filedocumented in this encounter Care Teams Hip Hop Performers Relationship Specialty Start Date End Date Shannan Vieyra MD PCP - General 04/08/09 03/15/19 documented as of this encounter
--- OUTSIDE RECORDS SUMMARY | 2024-07-02 20:53 | XMS_ITS | Encounter Summary ---
Author Organization [facility] Address [address] [place] [address] Care Team Providers Care Coverstitch Elastic Attacher Name Role Phone Shannan Vieyra MD Primary Care Provider Unavail able Encounter Details Date Type Department Care Team (Late st Contact Info) Description 04/15/2008 Before PRISM Converted Visit (Maple) [facility] - Maple conversion [address] [place] [address] Juan Pablo Toth MD [facility] [address] [place] [phone] Social History Tobacco Use Types Packs/Day [...] arrhythmia for which she has seen a load blocker over a period of time. She has [...] MD 04/21/2008 22:05 Juan Pablo Toth MD [facility] Pipestem body rolling machine tender - Juan Pablo Toth MD - SHARI Job ID: [id number] Doc ID: [id number] cc: Shannan Vieyra MD documented in this encounter Plan of Treatment Not on file documented as of this encounter Visit Diagnoses Not on filedocumented in this encounter Care Teams Coverstitch Elastic Attacher Relationship Specialty Start Date End Date Shannan Vieyra MD PCP - General 04/08/09 03/15/19 documented as of this encounter
--- OUTSIDE RECORDS SUMMARY | 2024-07-02 20:53 | XMS_ITS | Encounter Summary ---
Author Organization [facility] Address [address] [place] [address] Care Team Providers Care Power Checker Name Role Phone Shannan Vieyra MD Primary Care Provider Unavail able Reason for Visit * Reason Onset Date Comments Medications Refill 11/06/2010 please call i n brand only. Encounter Details Date Type Department Care Team (Late st Contact Info) Description 11/06/2010 Refill [facility] Endocrinology - [facility] [address] [place] [address] Juan Pablo Toth MD [address] [facility] [address] [place] [address] Medications Refill (please call in [...] documented as of this encounter Care Teams Power Checker Relationship Specialty Start Date End Date Shannan Vieyra MD PCP - General 04/08/09 03/15/19 documented as of this encounter
--- OUTSIDE RECORDS SUMMARY | 2024-07-02 20:53 | XMS_ITS | Encounter Summary ---
Author Organization [facility] Address [address] [place] [address] Care Team Providers Care Principal Mechanical Engineer Name Role Phone Shannan Vieyra MD Primary Care Provider Unavail able Encounter Details Date Type Department Care Team (Late st Contact Info) Description 03/09/2011 Phlebotomy Only [address] [address] Property Management Accountant, Outpatient Social History Tobacco Use Types Packs/Day [...] on filedocumented in this encounter Care Teams Principal Mechanical Engineer Relationship Specialty Start Date End Date Shannan Vieyra MD PCP - General 04/08/09 03/15/19 documented as of this encounter
--- OUTSIDE RECORDS SUMMARY | 2024-07-02 20:53 | XMS_ITS | Encounter Summary ---
Author Organization [facility] Address [address] [place] [address] Care Team Providers Care Engraver Signature Name Role Phone Unavailable Primary Care Provider Unavailabl e Encounter Details Date Type Department Care Team (Late st Contact Info) Description 04/15/2008 10:55 EDT Hospital Encounter [facility] - Maple conversion [address] [place] [address] Juan Pablo Toth MD [employer] [facility] [address] [place] [phone] Social History Tobacco Use Types Packs/Day Years Used Date Smoking Tobacco: Never Smokeless Tobacco: Never Alcohol Use Standard Drinks/Week Comments No 0 (1 standard drink = 0.6 oz pur e alcohol) [facility] Utilities Answer Date Recorded In the past 12 months has [facility] electric, gas, oil, or water company [...] to sleep or slept in a senior living (including now)? No 10/28/2023 Interpersonal Safety Answer [...] ? DORIS KERR ? Accession #: ? [id number] ? : ? 1980 (Age: 28) ??F [...] reviewed and electronically signed by: ? Jolynn [place], [place](ASCP) ? Report Date: ??07/04/2008 09:35 ? End of Report ? [facility] 07/01/2008 07/02/2008 Julita Martinez MD PATHOLOGY ORDERABLES Performing Organization Address [facility] de Phone Number [facility] [address] [place] [address] * (ABNORMAL) TSH (04/15/2008 11:26 EDT) TSH <0.02(L) 0.35 - 5.00 uIU/mL [facility] Comment:Sample retested, res ult confirmed 04/15/2008 11:2 6 EDT 04/15/2008 11:27 EDT Juan Pablo Toth MD CHEMISTRY & BLOOD GAS ORDERABLES Performing Organization Address [facility] de Phone Number [facility] [address] [place] [address] * T4 FREE (04/15/2008 11:26 EDT) Free T4 1.5 0.8 - 1.8 ng/dL [facility] 04/15/2008 11:2 6 EDT 04/15/2008 11:27 EDT Juan Pablo Toth MD CHEMISTRY & BLOOD GAS ORDERABLES Performing Organization Address City/State/[facility] Co de Phone Number [facility] [address] [place] [address] documented in this encounter Visit Diagnoses Not on filedocumented in this encounter
--- OUTSIDE RECORDS SUMMARY | 2024-07-02 20:53 | XMS_ITS | Encounter Summary ---
Author Organization [facility] Address [address] [place] [address] Care Team Providers Care Cafeteria Attendant Name Role Phone Shannan Vieyra MD Primary Care Provider Unavail able Encounter Details Date Type Department Care Team (Late st Contact Info) Description 10/23/2012 16:33 EST - 10/23/2012 23:59 EST Hospital Encounter [address] [address] Unknown, Provider, Leida Cerda PA-C [address] [place] [phone] Discharge Disposition: Auto Discharge Social History Tobacco [...] on filedocumented in this encounter Care Teams Cafeteria Attendant Relationship Specialty Start Date End Date Shannan Vieyra MD PCP - General 04/08/09 03/15/19 documented as of this encounter
--- OUTSIDE RECORDS SUMMARY | 2024-07-02 20:53 | XMS_ITS | Encounter Summary ---
Author Organization [facility] Address [address] [place] [address] Care Team Providers Care Lawyer Criminal Name Role Phone Unavailable Primary Care Provider Unavailabl e Encounter Details Date Type Department Care Team (Late st Contact Info) Description 09/17/2008 15:12 [email or web address] Hospital Encounter [address] [address] Judith Ballard MBBS MPH [address] [place] [address], [address] [place] [phone] Social History Tobacco Use Types Packs/Day Years Used Date Smoking Tobacco: Never Smokeless Tobacco: Never Alcohol Use Standard Drinks/Week Comments No 0 (1 standard drink = 0.6 oz pur e alcohol) [facility] Utilities Answer Date Recorded In the past 12 months has [employer] electric, gas, oil, or water company threatened [...] Name Priority Date/Time Associated Diagnosis Comments URINE [id number] RATIO (ACR) Routine 09/17/2008 16:28 EST NEPHROLOGY PROFILE (INCLUDES BUN, CREATININE, CALCULATED GFR, ELECTROLYTES, CALCIUM, PHOSPHORUS, ALBUMIN) Routine 09/17/2008 16:26 EST CATECHOLAMINE FRACTIONATION, PLASMA, FREE Routine 09/17/2008 16:26 EST ALDOSTERONE, SERUM Routine 09/17/2008 16 :26 EST RENIN ACTIVITY, PLASMA Routine 8 16:26 EST COMPLETE BLOOD COUNT Routine 09/17/2008 16:26 EST documented in this encounter Results * (ABNORMAL) MICROALBUMIN (09/17/2008 16:28 EST) Creatinine, Urn [place] 80.4 mg/dl [facility] Ur Albumin mg/dl 3.0(H) <1.9 mg/dl [facility] Ur Alb ug/mg Crea 37.3 ug/mg Crea [facility] Comment: Normal: ??<30 ug/mg Creat Microalbuminuria: ??30-300 ug/mg Creat Clinical albuminuria: ??>300 ug/mg Creat 09/17/2008 16:2 8 EST 09/17/2008 16:28 EST Judith FINLEY MPH CHEMISTRY & BLO OD GAS ORDERABLES [facility] [address] [place] [address] * RENIN ACTIVITY, PLASMA (09/17/2008 16:26 EST) Pathologist [facility] Activity, Plasma 2.3Unit: ng/mL/h -- REFERENCE VALUE -- ? (Peripheral vein specimen) ? Na-depleted, upright: ?Mean: 10.8 ?Range: 2.9-24 ? Na-replete, upright: ?Mean: 1.9 ?Range: <= 0.6-4.3 ? Performed or Referred by: [facility] Path, [address] [place] [address], Lab Dir: Hebert Cisneros III, ? MD ? [facility] 09/17/2008 16:2 6 EST 09/17/2008 16:28 EST Judith Ballard MBBS MPH CHEMISTRY & BLO OD GAS ORDERABLES [facility] [address] [place] [address] * CATECHOLAMINE FRACTIONATION, PLASMA, FREE (09/17/2008 16:26 [...] ? values. ? Performed or Referred by: [facility] Path, [address] ? [place] [address], Lab Dir: Hebert Cisneros III, ? MD ? [facility] 09/17/2008 16:2 6 EST 09/17/2008 16:28 EST Judith Ballard MBBS MPH CHEMISTRY & BLO OD GAS ORDERABLES [facility] [address] [place] [address] * ALDOSTERONE, SERUM (09/17/2008 16:26 EST) Aldosterone, Serum 6.2Reference range: <=21 Unit: ng/dL Reference range based on upright A.M. collection from subjects ? on ad rah sodium uptake. ? Performed or Referred by: [facility] Path, [address] ? [place] [address], Lab Dir: Hebert Cisneros III, ? MD ? [facility] 09/17/2008 16:2 6 EST 09/17/2008 16:28 EST Judith SANTANABS MPH CHEMISTRY & BLO OD GAS ORDERABLES [facility] [address] [place] [address] * (ABNORMAL) NEPHROLOGY PROFILE (09/17/2008 16:26 EST) [...] & DNA PROBE ORDERABLES Performing Organization Address City/[facility] Co de Phone Number [facility] [address] [place] [address] * HEMAGRAM (09/17/2008 16:26 EST) WBC 7.21 [...] & PF 4 ORDERABLES Performing Organization Address City/[facility] Co de Phone Number [facility] [address] [place] [address] documented in this encounter Visit Diagnoses Not on filedocumented in this encounter
--- OUTSIDE RECORDS SUMMARY | 2024-07-02 20:53 | XMS_ITS | Encounter Summary ---
Author Organization [facility] Address [address] [place] [address] Care Team Providers Care Apprentice Carpenter Name Role Phone Shannan Vieyra MD Primary Care Provider Unavail able Encounter Details Date Type Department Care Team (Late st Contact Info) Description 11/07/2007 Results Only [facility] Endocrinology - [address] [address] Juan Pablo Toth MD [address] [place] [address] [address] [place] [address] Social History Tobacco Use Types [...] URINALYSIS ORDERAB LES [facility] [address] [place] [address] documented in this encounter Visit Diagnoses Not on filedocumented in this encounter Care Teams Apprentice Carpenter Relationship Specialty Start Date End Date Shannan Vieyra MD PCP - General 04/08/09 03/15/19 documented as of this encounter
--- OUTSIDE RECORDS SUMMARY | 2024-07-02 20:53 | XMS_ITS | Encounter Summary ---
Author Organization [facility] Address [address] [place] [address] Care Team Providers Care Core Setter Name Role Phone Shannan Vieyra MD Primary Care Provider Unavail able Reason for Visit * Reason Onset Date Comments Other 04/13/2011 Medication Management 04/13/2011 Encounter Details Date Type Department Care Team (Late st Contact Info) Description 04/13/2011 Telephone [facility] Endocrinology - [facility] [address] [place] [address] Juan Pablo Toth MD [address] [facility] [address] [place] [address] Other; Medication Management Social History [...] - 04/15/2011 1338 EDT Pt switching to [place] thyroid [address] Toth. Pt called message left about med switch and to get repeat labs in 6 weeks. MADAN JIANG RN * Telephone Encounter - Madan Jiang - 04/14/2011 0934 EDT Called pt She is aware of labs Would like to switch to [place] thyroid. MADAN JIANG RN * Telephone Encounter - Clarice Salazar - 04/13/2011 1036 EDT Pt has yet to hear from , states it has been over two weeks. Regarding labs. documented in this encounter Plan of Treatment Not on file documented as of this encounter Visit Diagnoses Not on filedocumented in this encounter Care Teams Core Setter Relationship Specialty Start Date End Date Shannan Vieyra MD PCP - General 04/08/09 03/15/19 documented as of this encounter
--- OUTSIDE RECORDS SUMMARY | 2024-07-02 20:53 | XMS_ITS | Encounter Summary ---
Author Organization [facility] Address [address] [place] [address] Care Team Providers Care Marketing Teacher Name Role Phone Shannan Vieyra MD Primary Care Provider Unavail able Reason for Visit * Reason Comments Hypertension Encounter Details Date Type Department Care Team (Late st Contact Info) Description 01/16/2010 15:30 EDT Office Visit [facility] [place] [id number] Leida Cerda PA-C [address] [facility] [address] [place], [place] [address] Hypertension; Grave's disease Social History Tobacco Use [...] the end of the day. BP at promotion writer office recently was normal. Tolerates the higher [...] GAS ORDERABLES Performing Organization Address [facility] de Phone Number [facility] [address] [place] [address] * (ABNORMAL) TSH (01/16/2010 15:50 EDT) Pathologist [facility] TSH <0.02(L) 0.35 - 5.00 uIU/ml [facility] Blood specimen (specimen) 01/16/2010 15:50 EDT 01/16/2010 18:26 EDT Leida Cerda PA-C CHEMISTRY & BLOOD GAS ORDERABLES Performing Organization Address [facility] Phone Number [facility] [address] [place] [address] * (ABNORMAL) BASIC METABOLIC PANEL (01/16/2010 15:50 EDT) Pathologist [facility] Sodium 139 136 - 145 mEq/L [...] GAS ORDERABLES Performing Organization Address [facility] de Phone Number [facility] [address] [place] [address] documented in this encounter Visit Diagnoses Diagnosis Hypertension Unspecified essential hypertension Grave's disease Toxic diffuse goiter without mention of thyrotoxic crisis or storm documented in this encounter Discontinued Medications Medication Sig Discontinue Reason Start Date End Da te atenolol (TENORMIN) 50 mg tablet Take 50 mg by mouth 2 times daily. Alternate therapy 01/16/2010 documented as of this encounter Care Teams Marketing Teacher Relationship Specialty Start Date End Date Shannan Vieyra MD PCP - General 04/08/09 03/15/19 documented as of this encounter
--- OUTSIDE RECORDS SUMMARY | 2024-07-02 20:53 | XMS_ITS | Encounter Summary ---
Author Organization [facility] Address [address] [place] [address] Care Team Providers Care Admin Secretary Name Role Phone Shannan Vieyra MD Primary Care Provider Unavail able Reason for Visit * Reason Comments URI COUGH AND COLD. COUG H IS GETTING WORSE, VOMITS, 3-4 WEEKS. Encounter Details Date Type Department Care Team (Late st Contact Info) Description 02/13/2010 9:30 EDT Office Visit [address] [address] Shannan Vieyra MD Cough (Primary Dx) Social [...] Shannan Vieyra MD - 02/14/2010 [address] [address] PROGRESS/FOLLOWUP NOTE - 02/13/2010 TEMPORARY PROBLEM: Cough. [...] system. 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 Therapy completed documented as of this encounter Orders Immunization/Injection Count Last Ordered Date First Ordered Date TDAP VACCINE =>7YO IM 1 02/13/2010 documented in this encounter Care Teams Admin Secretary Relationship Specialty Start Date End Date Shannan Vieyra MD PCP - General 04/08/09 03/15/19 documented as of this encounter
--- OUTSIDE RECORDS SUMMARY | 2024-07-02 20:53 | XMS_ITS | Encounter Summary ---
Author Organization [facility] Address [address] [place] [address] Care Team Providers Care Varnishing Unit Tool Setter Name Role Phone Unavailable Primary Care Provider Unavailabl e Encounter Details Date Type Department Care Team (Late st Contact Info) Description 10/08/2008 10:19 EST - 10/08/2008 11:59 EST Hospital Encounter [facility] [address] [place] [address] Unknown, ProviderMD Rod Cohen MD [address] [facility], Level [address] [place] [address] Discharge Disposition: Auto Discharge Social [...] with 2D, spectral, and color flow Doppler. [id number]. INDICATION: Uncontrolled hypertension. HISTORY: ?HPT, Known small [...] with 2D, spectral, and color flow Doppler. [id number]. INDICATION: Uncontrolled hypertension. HISTORY: HPT, Known small [...]
--- OUTSIDE RECORDS SUMMARY | 2024-07-02 20:53 | XMS_ITS | Encounter Summary ---
Author Organization [facility] Address [address] [place] [address] Care Team Providers Care Meeting Coordinator Name Role Phone Shannan Vieyra MD Primary Care Provider Unavail able Encounter Details Date Type Department Care Team (Late st Contact Info) Description 12/27/2007 Results Only [facility] Endocrinology - [facility] [address] [place] [address] Juan Pablo Toth MD [address] [facility] [address] [place] [address] Social History Tobacco Use Types [...] GAS ORDERABLES Performing Organization Address [facility] de Phone Number [facility] [address] [place] [address] * T3, TOTAL (12/27/2007 14:34 EDT) T3, Total 98 60 - 181 ng/dL [facility] 12/27/2007 14:3 4 EDT 12/27/2007 14:35 EDT Juan Pablo Toth MD CHEMISTRY & BLOOD GAS ORDERABLES Performing Organization Address [facility] de Phone Number [facility] [address] [place] [address] * T4 FREE (12/27/2007 14:34 EDT) Free T4 0.8 0.8 - 1.8 ng/dL [facility] 12/27/2007 14:3 4 EDT 12/27/2007 14:35 EDT Juan Pablo Toth MD CHEMISTRY & BLOOD GAS ORDERABLES Performing Organization Address [facility] de Phone Number [facility] [address] [place] [address] documented in this encounter Visit Diagnoses Not on filedocumented in this encounter Care Teams Meeting Coordinator Relationship Specialty Start Date End Date Shannan Vieyra MD PCP - General 04/08/09 03/15/19 documented as of this encounter
--- OUTSIDE RECORDS SUMMARY | 2024-07-02 20:53 | XMS_ITS | Encounter Summary ---
Author Organization [facility] Address [address] [place] [address] Care Team Providers Care Fixed Income Portfolio Manager Name Role Phone Shannan Vieyra MD Primary Care Provider Unavail able Encounter Details Date Type Department Care Team (Late st Contact Info) Description 12/31/2009 8:08 EDT - 12/31/2009 23:59 EDT Hospital Encounter [facility] - Other [address] [place] [address] Denice Martinez MD [address] [facility], [facility] [address] [place] [phone] Discharge Disposition: Home or Self Care Social [...] on filedocumented in this encounter Care Teams Fixed Income Portfolio Manager Relationship Specialty Start Date End Date Shannan Vieyra MD PCP - General 04/08/09 03/15/19 documented as of this encounter
--- OUTSIDE RECORDS SUMMARY | 2024-07-02 20:53 | XMS_ITS | Encounter Summary ---
Author Organization [facility] Address [address] [place] [address] Care Team Providers Care Records Management Assistant Name Role Phone Unavailable Primary Care Provider Unavailabl e Encounter Details Date Type Department Care Team (Latest Contact Info) Description 11/08/2007 6:01 EST - 11/08/2007 11:59 EST Hospital Encounter [facility] [address] [place] [address] Juan Pablo Toth MD [address] [place] [phone] Discharge Disposition: Auto Discharge Social History [...] with the findings. Juan Pablo Toth MD [facility] NM ORDERABLES * NM THYROID UPTAKE + [...]
--- OUTSIDE RECORDS SUMMARY | 2024-07-02 20:54 | XMS_ITS | Encounter Summary ---
Author Organization [facility] Address [address] [place] [address] Care Team Providers Care Corporate Real Estate Specialist Name Role Phone Unavailable Primary Care Provider Unavailabl e Encounter Details Date Type Department Care Team (Late st Contact Info) Description 12/03/2005 13:12 EST Hospital Encounter [facility] - [facility] conversion [address] [place] [address] Leida Cerda PA-C [address] [place] [address] [address] [place], [place] [id number] Social History Tobacco Use Types Packs/Day Years Used Date Smoking Tobacco: Never Smokeless Tobacco: Never Alcohol Use Standard Drinks/Week Comments No 0 (1 standard drink = 0.6 oz pur e alcohol) [facility] Utilities Answer Date Recorded In the [...] & BLOOD GAS ORDERABLES Performing Organization Address [facility] Co de Phone Number [facility] [address] [place] [address] * (ABNORMAL) T3, TOTAL (12/03/2005 13:57 EST) T3, Total 466(H) 60 - 181 ng/dl [facility] 12/03/2005 13:5 7 EST 12/03/2005 17:10 EST Leida Cerda PA-C CHEMISTRY & BLOOD GAS ORDERABLES Performing Organization Address [facility] Co de Phone Number [facility] [address] [place] [address] * (ABNORMAL) T4 FREE (12/03/2005 13:57 EST) Free T4 2.9(H) 0.8 - 1.8 ng/dl [facility] 12/03/2005 13:5 7 EST 12/03/2005 17:10 EST Leida Cerda PA-C CHEMISTRY & BLOOD GAS ORDERABLES Performing Organization Address [facility] de Phone Number [facility] [address] [place] [address] * (ABNORMAL) HEMAGRAM (12/03/2005 13:57 EST) WBC [...] HEMATOLOGY & PF4 ORDERABLES Performing Organization Address [facility] Co de Phone Number [facility] [address] [place] [address] * (ABNORMAL) BASIC METABOLIC PANEL (12/03/2005 13:57 [...] & BLOOD GAS ORDERABLES Performing Organization Address City/[facility] Co de Phone Number [facility] [address] [place] [address] documented in this encounter Visit Diagnoses Not on filedocumented in this encounter
--- OUTSIDE RECORDS SUMMARY | 2024-07-02 20:54 | XMS_ITS | Encounter Summary ---
Author Organization [facility] Address [address] [place] [address] Care Team Providers Care Technology Program Manager Name Role Phone Unavailable Primary Care Provider Unavailabl e Encounter Details Date Type Department Care Team (Late st Contact Info) Description 06/10/2005 11:47 EDT Hospital Encounter [facility] - Other [address] [place] [address] Germain Mason MD [address] [place] [phone] Social History Tobacco Use Types Packs/Day Years Used Date Smoking Tobacco: Never Smokeless Tobacco: Never Alcohol Use Standard Drinks/Week Comments No 0 (1 standard drink = 0.6 oz pur e alcohol) [facility] Utilities Answer Date Recorded In the past 12 months has [employer] electric, gas, oil, or water company [...] GA S ORDERABLES [facility] [address] [place] [address] * (ABNORMAL) T4 FREE (06/10/2005 12:04 EDT) Free T4 2.4(H) 0.8 - 1.8 ng/dl [facility] 06/10/2005 12:0 4 EDT 06/10/2005 12:13 EDT Germain Mason MD CHEMISTRY & BLOOD GA S ORDERABLES [facility] [address] [place] [address] documented in this encounter Visit Diagnoses Not on filedocumented in this encounter
--- OUTSIDE RECORDS SUMMARY | 2024-07-02 20:54 | XMS_ITS | Encounter Summary ---
Author Organization [facility] Address [address] [place] [address] Care Team Providers Care Manager Retail Sales Name Role Phone Shannan Vieyra MD Primary Care Provider Unavail able Encounter Details Date Type Department Care Team (Late st Contact Info) Description 10/22/2004 Results Only [facility] - Maple conversion [address] [place] [address] BaltazarTrue richardson MD [address] [place] [address] Social History Tobacco Use Types Packs/Day Years [...] organism [facility] Report Status Final [id number] [facility] 10/22/2004 18:1 5 EST 10/22/2004 18:17 EST True Ledesma MD MICROBIOLOGY - GE NERAL ORDERABLES Performing Organization Address [facility] Co de Phone Number [facility] [address] [place] [address] * UA REFLEX (10/22/2004 18:15 EST) UA Billing Microscopic not indicated. [facility] 10/22/2004 18:1 5 EST 10/22/2004 18:17 EST True Ledesma MD URINALYSIS ORDERA BLES Performing Organization Address [facility] Co de Phone Number [facility] [address] [place] [address] * URINALYSIS (10/22/2004 18:15 EST) Color, UA Yellow [facility] Clarity, UA Clear [facility] Glucose, UA Norm NORM [facility] Bilirubin, UA Neg NEG [facility] Ketones, UA Neg NEG [facility] Specific [place], Urine 1.010 1.005 - 1.02 [facility] [...] MD URINALYSIS ORDERA BLES Performing Organization Address City/[facility]/ZIP Co de Phone Number [facility] [address] [place] [address] * (ABNORMAL) TSH (10/22/2004 18:13 EST) TSH <0.02(L) 0.35 - 5.50 uIU/ml [facility] 10/22/2004 18:1 3 EST 10/22/2004 18:16 EST True Ledesma MD CHEMISTRY & BLOOD GAS ORDERABLES Performing Organization Address [facility] Co de Phone Number [facility] [address] [place] [address] * (ABNORMAL) T4 (10/22/2004 18:13 EST) T4, Total 18.2(H) 4.5 - 10.9 ug/dl [facility] 10/22/2004 18:1 3 EST 10/22/2004 18:16 EST True Ledesma MD CHEMISTRY & BLOOD GAS ORDERABLES Performing Organization Address [facility] Co de Phone Number [facility] [address] [place] [address] * (ABNORMAL) T3, TOTAL (10/22/2004 18:13 EST) T3, Total 395(H) 60 - 181 ng/dl [facility] 10/22/2004 18:1 3 EST 10/22/2004 18:16 EST True Ledesma MD CHEMISTRY & BLOOD GAS ORDERABLES Performing Organization Address [facility] Co de Phone Number [facility] [address] [place] [address] * (ABNORMAL) T4 FREE (10/22/2004 18:13 EST) Free T4 3.0(H) 0.8 - 1.8 ng/dl [facility] 10/22/2004 18:1 3 EST 10/22/2004 18:16 EST True Ledesma MD CHEMISTRY & BLOOD GAS ORDERABLES Performing Organization Address City/State/[facility] Co de Phone Number [facility] [address] [place] [address] * PROFILE (10/22/2004 18:13 EST) ABO and Rh Type A POS FLE [facility] Antibody Screen Neg [facility] WBC 7.47 4.0 - 12.4 [...] EST True Ledesma MD PACKAGES & DNA SC OBE ORDERABLES [facility] [address] [place] [address] documented in this encounter Visit Diagnoses Not on filedocumented in this encounter Care Teams Manager Retail Sales Relationship Specialty Start Date End Date Shannan Vieyra MD PCP - General 04/08/09 03/15/19 documented as of this encounter
--- OUTSIDE RECORDS SUMMARY | 2024-07-02 20:54 | XMS_ITS | Encounter Summary ---
Author Organization [facility] Address [address] [place] [address] Care Team Providers Care Loan Assistant Name Role Phone Unavailable Primary Care Provider Unavailabl e Encounter Details Date Type Department Care Team (Late st Contact Info) Description 05/14/2005 16:35 EDT - 05/19/2005 11:59 EDT Hospital Encounter [facility] Mother/Baby Unit [address] [place] [address] Denice Martinez MD 111 [facility], [facility] 4 [place] [address] True Ledesma MD [address] [place] [address] Discharge Disposition: Home-Health Care Svc Social History [...] PROCEDURE REPORT PT TYPE: IP PT LOC: [id number] SERVICE DATE: 05/15/2005 SURGEON: Jaden Mcneil MDJoanna W Hatfield, MDKimberly Blake, MD BLACKENER: Hua Kovacs MD PREOPERATIVE DIAGNOSIS: Term intrauterine [...] Kovacs MD A - jaw Job ID: [id number] Document ID: [id number] cc: MD Shannan King MD Joanna W [...] & PF4 ORDERABLES [facility] [address] [place] [address] * (ABNORMAL) HEMAGRAM (05/16/2005 12:40 EDT) WBC 10.72 4.0 - 12.4 K/cmm [facility] RBC 2.62(L) 3.86 - 5.04 M/cmm [facility] Hemoglobin 6.8(LL) 11.6 - 15.2 gm/dl [facility] HCT 20.6(LL) 34.9 - 44.4 % [...] HEMATOLOGY & PF4 ORDERABLES Performing Organization Address City/[facility]/ZIP Co de Phone Number [facility] [address] [place] [address] * (ABNORMAL) HEMAGRAM (05/16/2005 8:15 EDT) WBC [...] PF4 ORDERABLES Performing Organization Address [facility] de Phone Number [facility] [address] [place] [address] * UA REFLEX (05/14/2005 19:00 EDT) UA Billing Microscopic not indicated. [facility] 05/14/2005 19:0 0 EDT 05/14/2005 19:06 EDT True Ledesma MD URINALYSIS ORDERA BLES Performing Organization Address [facility] de Phone Number [facility] [address] [place] [address] * URINALYSIS (05/14/2005 19:00 EDT) Color, UA Yellow [facility] Clarity, UA Clear [facility] Glucose, UA Norm NORM [facility] Bilirubin, UA Neg NEG [facility] Ketones, UA Neg NEG [facility] Specific [place], Urine 1.015 1.005 - 1.02 [facility] [...] URINALYSIS ORDERA BLES [facility] [address] [place] [address] * CULTURE IF UA POSITIVE (05/14/2005 19:00 EDT) Pathologist [facility] Culture if Indicated Culture not indicated by urinalysis results. [facility] 05/14/2005 19:0 0 EDT 05/14/2005 19:06 EDT True Ledesma MD MICROBIOLOGY - GE NERAL ORDERABLES Performing Organization Address [facility] Co de Phone Number [facility] [address] [place] [address] * URIC ACID (05/14/2005 18:00 EDT) Pathologist [facility] Uric Acid 6.9 2.2 - 7.7 mg/dl [facility] Comment:Slight hemolysis 05/14/2005 18:0 0 EDT 05/14/2005 18:24 EDT True Ledesma MD CHEMISTRY & BLOOD GAS ORDERABLES Performing Organization Address [facility] de Phone Number [facility] [address] [place] [address] * FIBRINOGEN (05/14/2005 18:00 EDT) Pathologist [facility] Fibrinogen 355 220 - 410 mg/dl [facility] Comment:Moderately lipemic 05/14/2005 18:0 0 EDT 05/14/2005 18:24 EDT True Ledesma MD HEMATOLOGY & PF4 ORDERABLES Performing Organization Address [facility] de Phone Number [facility] [address] [place] [address] * (ABNORMAL) CREATININE (05/14/2005 18:00 EDT) Pathologist [facility] Creatinine 0.5(L) 0.7 - 1.5 mg/dl [facility] Comment:Slight hemolysis 05/14/2005 18:0 0 EDT 05/14/2005 18:24 EDT True Ledesma MD HISTORICAL LAB FO R SQ LOAD Performing Organization Address [facility] Co de Phone Number [facility] [address] [place] [address] * (ABNORMAL) HEMAGRAM (05/14/2005 18:00 EDT) WBC [...] LAB MCHC 33.7 32.1 - 35.9 gm/dl [facility] PLT 158 141 - 320 K/cmm [facility] RDW-CV 14.9(H) 11.7 - 14.6 % [facility] 05/14/2005 18:0 0 EDT 05/14/2005 18:24 EDT True Ledesma MD HEMATOLOGY & PF4 ORDERABLES Performing Organization Address [facility] de Phone Number [facility] [address] [place] [address] * BUN (05/14/2005 18:00 EDT) BUN 11 10 - 26 mg/dl [facility] Comment:Slight hemolysis 05/14/2005 18:0 0 EDT 05/14/2005 18:24 EDT True Ledesma MD CHEMISTRY & BLOOD GAS ORDERABLES Performing Organization Address [facility] Co de Phone Number [facility] [address] [place] [address] * AST (05/14/2005 18:00 EDT) AST 38 15 - 46 U/L [facility] Comment:Slight hemolysis 05/14/2005 18:0 0 EDT 05/14/2005 18:24 EDT True Ledesma MD CHEMISTRY & BLOOD GAS ORDERABLES Performing Organization Address [facility] de Phone Number [facility] [address] [place] [address] * ALT (05/14/2005 18:00 EDT) ALT 13 9 - 52 U/L [facility] Comment:Slight hemolysis 05/14/2005 18:0 0 EDT 05/14/2005 18:24 EDT True Ledesma MD CHEMISTRY & BLOOD GAS ORDERABLES Performing Organization Address [facility] Phone Number [facility] [address] [place] [phone] documented in this encounter Visit Diagnoses Not on filedocumented in this encounter
--- OUTSIDE RECORDS SUMMARY | 2024-07-02 20:54 | XMS_ITS | Encounter Summary ---
Author Organization [facility] Address [address] [place] [address] Care Team Providers Care Staff Research Associate Name Role Phone Shannan Vieyra MD Primary Care Provider Unavail able Encounter Details Date Type Department Care Team (Late st Contact Info) Description 07/13/2004 Office Visit [facility] Cardiology - [address] [address] Pete Richey MD Discharge Disposition: Auto Discharge [...] STREPTOCOCCUS, BETA HEMOLYTIC GROUP B (STREPTOCOCCUS AGALACTIAE) [facility] Report Status Final [id number] [facility] 07/13/2004 10:0 0 EDT 07/13/2004 15:35 EDT Richard Covarrubias MD MICROBIOLOGY - GENERAL ORDERABLES Performing Organization Address [facility]/ZIP Co de Phone Number [facility] [address] [place] [address] * (ABNORMAL) URINE MICROSCOPIC (07/13/2004 10:00 EDT) [...] ORD ERABLES Performing Organization Address [facility] Co de Phone Number [facility] [address] [place] [address] * (ABNORMAL) URINALYSIS (07/13/2004 10:00 EDT) Color, UA Yellow [facility] Clarity, UA Hazy [facility] Glucose, UA Norm NORM [facility] Bilirubin, UA Neg NEG [facility] Ketones, UA Neg NEG [facility] Specific [place], Urine 1.020 1.005 - 1.02 [facility] [...] MD URINALYSIS ORD ERABLES Performing Organization Address City/State/[facility] Co de Phone Number [facility] [address] [place] [address] documented in this encounter Visit Diagnoses Not on filedocumented in this encounter Care Teams Staff Research Associate Relationship Specialty Start Date End Date Shannan Vieyra MD PCP - General 04/08/09 03/15/19 documented as of this encounter
--- OUTSIDE RECORDS SUMMARY | 2024-07-02 20:54 | XMS_ITS | Encounter Summary ---
Author Organization [facility] Address [address] [place] [address] Care Team Providers Care Analyst Geochemical Prospecting Name Role Phone Unavailable Primary Care Provider Unavailabl e Encounter Details Date Type Department Care Team (Late st Contact Info) Description 07/14/2004 12:03 EDT Hospital Encounter [facility] - Maple conversion [address] [place] [address] Leida Cerda PA-C [address] [place] [address] [address] [place], [place] [address] Social History Tobacco Use Types Packs/Day Years Used Date Smoking Tobacco: Never Smokeless Tobacco: Never Alcohol Use Standard Drinks/Week Comments No 0 (1 standard drink = 0.6 oz pur e alcohol) [facility] Utilities Answer Date Recorded In the [...] place to sleep or slept in a custodial (including now)? No 10/28/2023 Interpersonal Safety Answer [...]
--- OUTSIDE RECORDS SUMMARY | 2024-07-02 20:54 | XMS_ITS | Encounter Summary ---
Author Organization [facility] Address [address] [place] [address] Care Team Providers Care Smelting Engineer Name Role Phone Shannan Vieyra MD Primary Care Provider Unavail able Encounter Details Date Type Department Care Team (Late st Contact Info) Description 06/10/2005 Before PRISM Converted Visit (Maple) [facility] - Maple conversion [address] [place] [address] Germain Mason MD [address] [place] [address] [place] [phone] Social History Tobacco Use Types Packs/Day Years Used Date Smoking Tobacco: Never Assessed Sex and Gender Information Value Date Recorded Sex Assigned at Not on file Gender Identity Not on file Sexual Orientation Not on file documented as of this encounter Progress Notes * Celso, Conv Greenskeeper Supervisor - 12/10/2009 1102 EST DIVISION OF ENDOCRINOLOGY [...] P - dd Job ID: Document ID: [id number] cc: documented in this encounter Plan of Treatment Not on file documented as of this encounter Visit Diagnoses Not on filedocumented in this encounter Care Teams Smelting Engineer Relationship Specialty Start Date End Date Shannan Vieyra MD PCP - General 04/08/09 03/15/19 documented as of this encounter
--- OUTSIDE RECORDS SUMMARY | 2024-07-02 20:54 | XMS_ITS | Encounter Summary ---
Author Organization [facility] Address [address] [place] [address] Care Team Providers Care User Support Specialist Name Role Phone Unavailable Primary Care Provider Unavailabl e Encounter Details Date Type Department Care Team (Late st Contact Info) Description 06/29/2004 9:37 EDT Hospital Encounter [facility] - Other [address] [place] [address] Leida Cerda PA-C [address] [place] [address] [address] [place] [address] Social History Tobacco Use Types Packs/Day Years Used Date Smoking Tobacco: Never Smokeless Tobacco: Never Alcohol Use Standard Drinks/Week Comments No 0 (1 standard drink = 0.6 oz pur e alcohol) [facility] Utilities Answer Date Recorded In the past 12 months has [employer], gas, oil, or water company threatened [...]
--- OUTSIDE RECORDS SUMMARY | 2024-07-02 20:54 | XMS_ITS | Encounter Summary ---
Author Organization [facility] Address [address] [place] [address] Care Team Providers Care Maintenance Groundman Name Role Phone Shannan Vieyra MD Primary Care Provider Unavail able Encounter Details Date Type Department Care Team (Late st Contact Info) Description 09/29/2005 Results Only [facility] Medicine - [address] [address] Sita Dunn Social History Tobacco Use Types [...] ISOLATED [facility] Report Status Final [id number] [facility] 09/29/2005 12:3 6 EST 09/29/2005 17:02 EST Sita Dunn MICROBIOLOGY - GENER AL ORDERABLES [facility] [address] [place] [address] documented in this encounter Visit Diagnoses Not on filedocumented in this encounter Care Teams Maintenance Groundman Relationship Specialty Start Date End Date Shannan Vieyra MD PCP - General 04/08/09 03/15/19 documented as of this encounter
--- OUTSIDE RECORDS SUMMARY | 2024-07-02 20:54 | XMS_ITS | Encounter Summary ---
Author Organization [facility] Address [address] [place] [address] Care Team Providers Care Narcotics Detective Name Role Phone Shannan Vieyra MD Primary Care Provider Unavail able Encounter Details Date Type Department Care Team (Late st Contact Info) Description 06/29/2004 Results Only [facility] - [place] [id number] [place] [address] Leida Cerda PA-C [address] [facility] [address] [place], [place] [address] Social History Tobacco Use Types Packs/Day Years [...] * (ABNORMAL) TSH (06/29/2004 16:08 EDT) Pathologist [facility] TSH <0.02(L) 0.35 - 5.50 uIU/ml [facility] 06/29/2004 16:0 8 EDT 06/29/2004 19:10 EDT Leida Cerda PA-C CHEMISTRY & BLOOD GAS ORDERABLES [facility] [address] [place] [address] * (ABNORMAL) THYROTROPIN RECEPTOR ANTIBODY (06/29/2004 16:08 EDT) Pathologist [facility] Thyrotropin Receptor Ab 16Unit: % Index(Note) -- EXPECTED VALUES -- ? (Ref Range) <10 (Negative) ? 10-14 (Indeterminate) ? > or = 15 (Positive) ? TEST PERFORMED OR REFERRED BY [facility] ? [address] ? [place] [address] ? Psych Rn: ? Pawan Saunders M.D. ?(H) [facility] 06/29/2004 16:0 8 EDT 06/29/2004 19:10 EDT Leida Cerda PA-C CHEMISTRY & BLOOD GAS ORDERABLES [facility] [address] [place] [address] * (ABNORMAL) T3, TOTAL (06/29/2004 16:08 EDT) Pathologist [facility] T3, Total 254(H) 60 - 181 ng/dl [facility] 06/29/2004 16:0 8 EDT 06/29/2004 19:10 EDT Leida Cerda PA-C CHEMISTRY & BLOOD GAS ORDERABLES Performing Organization Address [facility] de Phone Number [facility] [address] [place] [address] * (ABNORMAL) T4 FREE (06/29/2004 16:08 EDT) Free T4 2.1(H) 0.8 - 1.8 ng/dl [facility] 06/29/2004 16:0 8 EDT 06/29/2004 19:10 EDT Leida Cerda PA-C CHEMISTRY & BLOOD GAS ORDERABLES Performing Organization Address [facility] de Phone Number [facility] [address] [place] [address] * (ABNORMAL) HEMAGRAM AND DIFFERENTIAL (06/29/2004 16:08 EDT) [facility] WBC 4.80 4.0 - 12.4 K/cmm [facility] [...] & DNA PROBE ORDERABLES Performing Organization Address City/[facility] Co de Phone Number [facility] [address] [place] [address] * AST (06/29/2004 16:08 EDT) AST 21 15 - 46 U/L [facility] 06/29/2004 16:0 8 EDT 06/29/2004 19:10 EDT Leida Cerda PA-C CHEMISTRY & BLOOD GAS ORDERABLES Performing Organization Address City/[facility]/ZIP Co de Phone Number [facility] [address] [place] [address] * ALT (06/29/2004 16:08 EDT) ALT 41 9 - 52 U/L [facility] 06/29/2004 16:0 8 EDT 06/29/2004 19:10 EDT Leida Cerda PA-C CHEMISTRY & BLOOD GAS ORDERABLES [facility] [address] [place] [address] documented in this encounter Visit Diagnoses Not on filedocumented in this encounter Care Teams Narcotics Detective Relationship Specialty Start Date End Date Shannan Vieyra MD PCP - General 04/08/09 03/15/19 documented as of this encounter
--- OUTSIDE RECORDS SUMMARY | 2024-07-02 20:54 | XMS_ITS | Encounter Summary ---
Author Organization [facility] Address [address] [place] [address] Care Team Providers Care Train Driver Name Role Phone Unavailable Primary Care Provider Unavailabl e Encounter Details Date Type Department Care Team (Late st Contact Info) Description 09/23/2005 15:12 EST Hospital Encounter [facility] - Maple conversion [address] [place] [address] Pete Richey MD Social History Tobacco Use Types Packs/Day Years Used Date Smoking Tobacco: Never Smokeless Tobacco: Never Alcohol Use Standard Drinks/Week Comments No 0 (1 standard drink = 0.6 oz pur e alcohol) [facility] Utilities Answer Date Recorded In the [...]
--- OUTSIDE RECORDS SUMMARY | 2024-07-02 20:54 | XMS_ITS | Encounter Summary ---
Author Organization [facility] Address [address] [place] [address] Care Team Providers Care Financial Health Counselor Name Role Phone Shannan Vieyra MD Primary Care Provider Unavail able Encounter Details Date Type Department Care Team (Late st Contact Info) Description 11/19/2006 Office Visit [facility] - Maple conversion [address] [place] [address] Humaira Gallagher MD [address] [place] [phone] Social History Tobacco Use Types Packs/Day [...] Course: Given ibuprofen and tylenol.. CLINICAL IMPRESSION Dnhbo0ay toe fracture. INSTRUCTIONS Apply ice intermittently (15-20 [...] M.D. 11/19/2006 19:07) Shalini DORIS Hernandez VisitID: [id number] Date:11/19/2006 11/19/2006 14:21 Pt states they were referred to [facility] by their PCP. signed by Aura Pearce [...] [facility]: [facility] Pain level now: 6/10. Pain level (pain mostly to 5th digit of right foot). The patient has had trouble walking. No numbness or tingling. Treatment RELEASE SPECIALIST: Ice. PAST HX: No infectious disease exposure. [...] Progress Cold pack applied. Extremity elevated. --1509 Kita Cordero R.N. (Report received). --1656 Jumana Yo [...] Discharge instructions reviewed with the patient and rat farmer.Patient verbalized understanding. The patient was discharged home and accompanied by rat farmer. The patient left the Emergency Department ambulatory and via private vehicle. Bead Trimmer driving. Departure time: 18:01. --1801 Daiana Diego R.N.. Locked/Released at 11/19/2006 18:01 by Daiana Diego R.N. documented in this encounter Plan of Treatment Not on file documented as of this encounter Visit Diagnoses Not on filedocumented in this encounter Care Teams Financial Health Counselor Relationship Specialty Start Date End Date Shannan Vieyra MD PCP - General 04/08/09 03/15/19 documented as of this encounter
--- OUTSIDE RECORDS SUMMARY | 2024-07-02 20:54 | XMS_ITS | Encounter Summary ---
Author Organization [facility] Address [address] [place] [address] Care Team Providers Care Collections Curator Name Role Phone Unavailable Primary Care Provider Unavailabl e Encounter Details Date Type Department Care Team (Late st Contact Info) Description 10/09/2007 14:10 EST Hospital Encounter [facility] - Maple conversion [address] [place] [address] Miguel Devine MD PhD [address] [facility] [address] [place] [phone] Social History Tobacco Use Types Packs/Day Years Used Date Smoking Tobacco: Never Smokeless Tobacco: Never Alcohol Use Standard Drinks/Week Comments No 0 (1 standard drink = 0.6 oz pur e alcohol) [facility] Utilities Answer Date Recorded In the past [address] [facility] electric, gas, oil, or water company threatened [...]
--- OUTSIDE RECORDS SUMMARY | 2024-07-02 20:54 | XMS_ITS | Encounter Summary ---
Author Organization [facility] Address [address] [place] [address] Care Team Providers Care Director Physical Name Role Phone Unavailable Primary Care Provider Unavailabl e Encounter Details Date Type Department Care Team (Late st Contact Info) Description 01/06/2005 10:52 EST Hospital Encounter [facility] - S [address] [address] Denice Martinez MD [address] [place] [address] [address] [place] [phone] Social History Tobacco Use Types Packs/Day Years Used Date Smoking Tobacco: Never Smokeless Tobacco: Never Alcohol Use Standard Drinks/Week Comments No 0 (1 standard drink = 0.6 oz pur e alcohol) [facility] Utilities Answer Date Recorded In the past [address] [facility] [employer], gas, oil, or water [employer] threatened to shut off services in your [...] GA S ORDERABLES [facility] [address] [place] [address] * (ABNORMAL) T4 FREE (01/06/2005 10:55 EST) Free T4 2.2(H) 0.8 - 1.8 ng/dl [facility] 01/06/2005 10:5 5 EST 01/06/2005 10:56 EST Denice Martinez MD CHEMISTRY & BLOOD GA S ORDERABLES [facility] [address] [place] [address] documented in this encounter Visit Diagnoses Not on filedocumented in this encounter
--- OUTSIDE RECORDS SUMMARY | 2024-07-02 20:54 | XMS_ITS | Encounter Summary ---
Author Organization [facility] Address [address] [place] [address] Care Team Providers Care Flame Hardening Machine Operator Name Role Phone Unavailable Primary Care Provider Unavailabl e Encounter Details Date Type Department Care Team (Late st Contact Info) Description 09/25/2007 6:49 EST - 09/25/2007 11:59 EST Hospital Encounter [facility]- [address] [address] Miguel Devine MD PhD [address] [place] [address] [address] [place] [phone] Discharge Disposition: Home or Self [...] Levy NP EP Study NAME: DORIS KERR Shingles Roofer: Miguel Devine MD : 1980 Procedure Date: [...] A - ksw Job ID: Document ID: [id number] cc: Shannan Vieyra MD documented in this [...] PhD URINAL YSIS ORDERABLES Performing Organization Address City/[facility] Co de Phone Number [facility] [address] [place] [address] * PTT (09/25/2007 7:15 EST) PTT 26 20 - 35 secs [facility] Comment:Therapeutic Heparin range: 60-100 seconds 09/25/2007 7:15 EST 09/25/2007 7:29 EST Miguel Devine MD PhD HEMATO LOGY & PF4 ORDERABLES Performing Organization Address City/[facility] Co de Phone Number [facility] [address] [place] [address] * PROTIME (09/25/2007 7:15 EST) Pro Time [...] LOGY & PF4 ORDERABLES Performing Organization Address [facility] de Phone Number [facility] [address] [place] [address] * ELECTROLYTES (09/25/2007 7:15 EST) Pathologist [facility] Sodium 139 136 - 145 mEq/L [facility] Potassium 4.1 3.5 - 5.0 mEq/L [facility] Chloride 106 96 - 110 mEq/L [facility] CO2 26 24 - 32 mEq/L [facility] 09/25/2007 7:15 EST 09/25/2007 7:29 EST Miguel Devine MD PhD CHEMIS TRY & BLOOD GAS ORDERABLES Performing Organization Address [facility] Phone Number [facility] [address] [place] [address] * HCG (09/25/2007 7:15 EST) HCG <4 <4 mIU/ml [facility] Comment: Reference Range: Positive = >10 Borderline = 4-10 recommend repeat. Negative = <4 09/25/2007 7:15 EST 09/25/2007 7:29 EST Miguel Devine MD PhD CHEMIS TRY & BLOOD GAS ORDERABLES Performing Organization Address [facility] de Phone Number [facility] [address] [place] [address] * (ABNORMAL) CREATININE (09/25/2007 7:15 EST) Creatinine 0.51(L) 0.7 - 1.5 mg/dl [facility] GFR, Calculated >60 ml/min/1.7 3m2 [facility] 09/25/2007 7:15 EST 09/25/2007 7:29 EST Miguel Devine MD PhD CHEMIS TRY & BLOOD GAS ORDERABLES Performing Organization Address [facility] Phone Number [facility] [address] [place] [address] * (ABNORMAL) HEMAGRAM (09/25/2007 7:15 EST) WBC [...] LOGY & PF4 ORDERABLES Performing Organization Address [facility] Co de Phone Number [facility] [address] [place] [address] * BUN (09/25/2007 7:15 EST) BUN 13 10 - 26 mg/dl [facility] 09/25/2007 7:15 EST 09/25/2007 7:29 EST Miguel Devine MD PhD CHEMIS TRY & BLOOD GAS ORDERABLES Performing Organization Address City/[facility] de Phone Number [facility] [address] [place] [address] documented in this encounter Visit Diagnoses Not on filedocumented in this encounter
--- OUTSIDE RECORDS SUMMARY | 2024-07-02 20:54 | XMS_ITS | Encounter Summary ---
Author Organization [facility] Address [address] [place] [address] Care Team Providers Care Personnel Security Assistant Name Role Phone Unavailable Primary Care Provider Unavailabl e Encounter Details Date Type Department Care Team (Late st Contact Info) Description 02/10/2005 14:48 EDT Hospital Encounter [address] [address] Denice Martinez MD [address] [place] [address], [address] [place] [phone] Social History Tobacco Use Types Packs/Day Years Used Date Smoking Tobacco: Never Smokeless Tobacco: Never Alcohol Use Standard Drinks/Week Comments No 0 (1 standard drink = 0.6 oz pur e alcohol) [facility] Utilities Answer Date Recorded In the past 12 months has [employer], gas, oil, or water [employer] threatened to shut off services in your [...] GA S ORDERABLES Performing Organization Address [facility] Co de Phone Number [facility] [address] [place] [address] * (ABNORMAL) CREATININE (02/10/2005 14:59 EDT) Creatinine 0.4(L) 0.7 - 1.5 mg/dl [facility] Comment:Slight hemolysis 02/10/2005 14:5 9 EDT 02/10/2005 15:01 EDT Denice Martinez MD HISTORICAL LAB FOR S Q LOAD Performing Organization Address [facility] de Phone Number [facility] [address] [place] [address] * (ABNORMAL) HEMAGRAM (02/10/2005 14:59 EDT) WBC [...] & PF4 ORD ERABLES Performing Organization Address City/[facility]/ZIP Co de Phone Number [facility] [address] [place] [address] * BUN (02/10/2005 14:59 EDT) BUN 12 10 - 26 mg/dl [facility] Comment:Slight hemolysis 02/10/2005 14:5 9 EDT 02/10/2005 15:01 EDT Denice Martinez MD CHEMISTRY & BLOOD GA S ORDERABLES Performing Organization Address City/[facility] Co de Phone Number [facility] [address] [place] [address] * AST (02/10/2005 14:59 EDT) AST 25 15 - 46 U/L [facility] Comment:Slight hemolysis 02/10/2005 14:5 9 EDT 02/10/2005 15:01 EDT Denice Martinez MD CHEMISTRY & BLOOD GA S ORDERABLES Performing Organization Address City/[facility] Co de Phone Number [facility] [address] [place] [address] * ALT (02/10/2005 14:59 EDT) ALT 13 9 - 52 U/L [facility] Comment:Slight hemolysis 02/10/2005 14:5 9 EDT 02/10/2005 15:01 EDT Denice Martinez MD CHEMISTRY & BLOOD GA S ORDERABLES [facility] [address] [place] [address] documented in this encounter Visit Diagnoses Not on filedocumented in this encounter
--- OUTSIDE RECORDS SUMMARY | 2024-07-02 20:54 | XMS_ITS | Encounter Summary ---
Author Organization [facility] Address [address] [place] [address] Care Team Providers Care Electric Meter Installer Helper Name Role Phone Unavailable Primary Care Provider Unavailabl e Encounter Details Date Type Department Care Team (Latest Contact Info) Description 10/22/2004 18:14 EST Hospital Encounter [address] [address] True Ledesma MD [address] [place] [address] Discharge Disposition: Auto Discharge Social History Tobacco [...] Procedure Name Priority Date/Time Associated Diagnosis Comments LONGTERM DETAILED Routine 12/24/2004 15:00 EST documented in this encounter Results * LONGTERM DETAILED (12/24/2004 15:00 EST) Anatomical Region Laterality Modality Other 12/24/2004 15:0 0 EST Narrative 06/05/2009 11:06 EDT 27807,GRAVES DISEASE,DRUG EXPOSURE IST TRI Please refer to the separate [facility] report. Procedure Note Efe Acuña MD - 06/05/2009 [id number],GRAVES DISEASE,DRUG EXPOSURE IST TRI Please refer to the separate [facility] report. True Ledesma MD [facility] LONGTERM ORDERA BLES documented in this encounter Visit Diagnoses Not on filedocumented in this encounter
--- OUTSIDE RECORDS SUMMARY | 2024-07-02 20:54 | XMS_ITS | Encounter Summary ---
Author Organization [facility] Address [address] [place] [address] Care Team Providers Care Employment Clerk Name Role Phone Unavailable Primary Care Provider Unavailabl e Encounter Details Date Type Department Care Team (Late st Contact Info) Description 06/26/2004 8:14 EDT - 06/26/2004 11:59 EDT Hospital Encounter [address] [address] Richard Covarrubias MD [address] [place] [address], [address] [place] [phone] Discharge Disposition: Auto Discharge Social History Tobacco [...]
--- OUTSIDE RECORDS SUMMARY | 2024-07-02 20:54 | XMS_ITS | Encounter Summary ---
Author Organization [facility] Address [address] [place] [address] Care Team Providers Care Side Hemmer Name Role Phone Shannan Vieyra MD Primary Care Provider Unavail able Encounter Details Date Type Department Care Team (Late st Contact Info) Description 10/27/2007 Before PRISM Converted Visit (Maple) [facility] - Maple conversion [address] [place] [address] Juan Pablo Toth MD [address] [place] [phone] Social History Tobacco Use Types Packs/Day [...] MD 11/01/2007 16:55 Juan Pablo Toth MD [facility] rubber mold maker D: - Juan Pablo Toth MD - lb Job ID: [id number] Doc ID: [id number] cc: MD Miguel Clement MD Labs 10/25/2007 [...] on filedocumented in this encounter Care Teams Side Hemmer Relationship Specialty Start Date End Date Shannan Vieyra MD PCP - General 04/08/09 03/15/19 documented as of this encounter
--- OUTSIDE RECORDS SUMMARY | 2024-07-02 20:54 | XMS_ITS | Encounter Summary ---
Author Organization [facility] Address [address] [place] [address] Care Team Providers Care Manager Of Compensation Name Role Phone Unavailable Primary Care Provider Unavailabl e Encounter Details Date Type Department Care Team (Late st Contact Info) Description 09/11/2007 14:16 EST Hospital Encounter [facility] - Maple conversion [address] [place] [address] Miguel Devine MD PhD [address] [facility] [address] [place] [phone] Discharge Disposition: Auto Discharge Social History Tobacco [...]
--- OUTSIDE RECORDS SUMMARY | 2024-07-02 20:54 | XMS_ITS | Encounter Summary ---
Author Organization [facility] Address [address] [place] [address] Care Team Providers Care Irrigation Equipment Mechanic Name Role Phone Shannan Vieyra MD Primary Care Provider Unavail able Encounter Details Date Type Department Care Team (Late st Contact Info) Description 09/11/2007 Before PRISM Converted Visit (Maple) [facility] - Maple conversion [address] [place] [address] Flako Mondragon MD, [address] [facility] [address] [place] [address] Social History Tobacco Use Types Packs/Day Years Used Date Smoking Tobacco: Never Assessed Sex and Gender Information Value Date Recorded Sex Assigned at Not on file Gender Identity Not on file Sexual Orientation Not on file documented as of this encounter Progress Notes * Flako oMndragon Anthony - 08/20/2009 1256 EST RE: NAME: DORIS KERR : 1980 PROGRESS/FOLLOWUP NOTE - 10/09/2007 Jessie Vieyra M.D. [facility] [address] [place], [place] Dear Dr. Vieyra: We had the [...] We are asking her to contact her banquet cook to furtherdiscuss this issue and we will [...] Flako Mondragon MD - dsp Job ID: [id number] Doc ID: [id number] cc: Shannan Vieyra MD documented in this encounter Plan of Treatment Not on file documented as of this encounter Visit Diagnoses * Evaluation - Flako Mondragon - 08/17/2009 0216 EST RE: NAME: DORIS KERR : 1980 NEW PATIENT EVALUATION - 09/11/2007 Jessie Vieyra M.D. [address] Vieyra: We had the [...] She denies use of any drugs or jnew-unc-xhvsoxe stimulants. She does not have a high [...] Flako Mondragon MD - dsp Job ID: [id number] Doc ID: [id number] cc: documented in this encounter Care Teams Irrigation Equipment Mechanic Relationship Specialty Start Date End Date Shannan Vieyra MD PCP - General 04/08/09 03/15/19 documented as of this encounter
--- OUTSIDE RECORDS SUMMARY | 2024-07-02 20:54 | XMS_ITS | Encounter Summary ---
Author Organization [facility] Address [address] [place] [address] Care Team Providers Care Press Department Manager Name Role Phone Unavailable Primary Care Provider Unavailabl e Encounter Details Date Type Department Care Team (Late st Contact Info) Description 10/14/2004 23:36 EST Hospital Encounter [facility] - Other [address] [place] [address] True Ledesma MD [address] [place] [address] Social History Tobacco Use Types Packs/Day Years Used Date Smoking Tobacco: Never Smokeless Tobacco: Never Alcohol Use Standard Drinks/Week Comments No 0 (1 standard drink = 0.6 oz pur e alcohol) [facility] Utilities Answer Date Recorded In the past [...] place to sleep or slept in a intermediate (including now)? No 10/28/2023 Interpersonal Safety Answer [...]
--- OUTSIDE RECORDS SUMMARY | 2024-07-02 20:54 | XMS_ITS | Encounter Summary ---
Author Organization [facility] Address [address] [place] [address] Care Team Providers Care 911 Dispatcher Name Role Phone Unavailable Primary Care Provider Unavailabl e Encounter Details Date Type Department Care Team (Late st Contact Info) Description 02/25/2005 13:43 EDT Hospital Encounter [address] [address] Jame Sanders MD [address] [place] [address], Level 4 [place] [phone] Discharge Disposition: Auto Discharge Social History Tobacco [...] Persistent cholelithiasis, similar to the previous study. /[facility] Narrative 06/09/2009 10:28 EDT ABD U/S, ??RUQ PAIN,HISTORY OF PYELONEPHRITIS ??R/O HYDRONEPHROSIS/MEHUL LITHIASIS. PT IS CURRENTLY .(MVP) ??RAMON TO FAX REQ [id number] RIGHT UPPER QUADRANT ULTRASOUND: 02/25/05 Scans of [...] IS CURRENTLY .(MVP) RAMON TO FAX REQ [id number] RIGHT UPPER QUADRANT ULTRASOUND: 02/25/05 Scans of [...] Persistent cholelithiasis, similar to the previous study. /[facility] Jame Sanders MD IMG US ORDERABLES * BACTERIAL CULTURE, URINE (02/25/2005 13:45 EDT) Specimen Description Urine [facility] Result Less than 10,000 CFU/ml Mixed gram positive growth [facility] Report Status Final [id number] [facility] 02/25/2005 13:4 5 EDT 02/25/2005 13:47 EDT Jame Sanders MD MICROBIOLOGY - GEN ERAL ORDERABLES [facility] [address] [place] [address] * (ABNORMAL) TSH (02/25/2005 13:45 EDT) TSH <0.02(L) 0.35 - 5.50 uIU/ml [facility] 02/25/2005 13:4 5 EDT 02/25/2005 13:47 EDT Jame Sanders MD CHEMISTRY & BLOOD GAS ORDERABLES Performing Organization Address City/[facility]/ZIP Co de Phone Number [facility] [address] [place] [address] * (ABNORMAL) T4 FREE (02/25/2005 13:45 EDT) Free T4 2.0(H) 0.8 - 1.8 ng/dl [facility] 02/25/2005 13:4 5 EDT 02/25/2005 13:47 EDT Jame Sanders MD CHEMISTRY & BLOOD GAS ORDERABLES Performing Organization Address City/[facility]/ZIP Co de Phone Number [facility] [address] [place] [address] documented in this encounter Visit Diagnoses Not on filedocumented in this encounter
--- OUTSIDE RECORDS SUMMARY | 2024-07-02 20:54 | XMS_ITS | Encounter Summary ---
Author Organization [facility] Address [address] [place] [address] Care Team Providers Care Retail Loss Prevention Specialist Name Role Phone Unavailable Primary Care Provider Unavailabl e Encounter Details Date Type Department Care Team (Latest Contact Info) Description 10/12/2004 2:29 EST - 10/12/2004 11:59 EST Hospital Encounter [facility] Emergency Department - [address] [address] Emergency, Default, MD Discharge Disposition: Home or [...] Result No Neisseria gonorrhoeae DNA detected by boiler out mediated amplification. [facility] Report Status Final [id number] [facility] Specimen Description Cervix [facility] 10/14/2004 11:0 9 EST 10/15/2004 11:09 EST True Ledesma MD MICROBIOLOGY - GE NERAL ORDERABLES Performing Organization Address [facility] Co de Phone Number [facility] [address] [place] [address] * CHLAMYDIA TRACHOMATIS AMPLIFIED PROBE (10/14/2004 11:09 EST) Specimen Description Cervix [facility] Result No Chlamydia trachomatis DNA detected by boiler out mediated amplification. [facility] Report Status Final [id number] [facility] 10/14/2004 11:0 9 EST 10/15/2004 11:09 EST True Ledesma MD MICROBIOLOGY - GE NERAL ORDERABLES Performing Organization Address [facility] Co de Phone Number [facility] [address] [place] [address] documented in this encounter Visit Diagnoses Not on filedocumented in this encounter
--- OUTSIDE RECORDS SUMMARY | 2024-07-02 20:54 | XMS_ITS | Encounter Summary ---
Author Organization [facility] Address [address] [place] [address] Care Team Providers Care Home Designer Name Role Phone Unavailable Primary Care Provider Unavailabl e Encounter Details Date Type Department Care Team (Latest Contact Info) Description 10/27/2007 10:50 EST - 10/27/2007 11:59 EST Hospital Encounter [facility] - Maple conversion [address] [place], [place] [address] [phone] Juan Pablo Toth MD [address] [place] [phone] Discharge Disposition: Auto Discharge Social History [...]
--- OUTSIDE RECORDS SUMMARY | 2024-07-02 20:54 | XMS_ITS | Encounter Summary ---
Author Organization [facility] Address [address] [place] [address] Care Team Providers Care Bus Greaser Name Role Phone Shannan Winter MD Primary Care Provider Unavail able Encounter Details Date Type Department Care Team (Late st Contact Info) Description 10/25/2007 Before PRISM Converted Visit (Maple) [facility] - Maple conversion [address] [place] [address] Kar Encinas MD [address] [facility] [address] [place] [phone] Social History Tobacco Use Types Packs/Day Years Used Date Smoking Tobacco: Never Assessed Sex and Gender Information Value Date Recorded Sex Assigned at Not on file Gender Identity Not on file Sexual Orientation Not on file documented as of this encounter Procedure Notes * Kar Encinas MD - 08/19/2009 0540 EST [facility] Colonoscopy Procedure Report Attending Physician: KRA ENCINAS MD Physician: SHANNAN WINTER MD Exam [...] ENCINAS MD, M.D. on 10/25/2007 at 09:03 [facility] Document ID: [id number] * Kar Encinas MD - 08/19/2009 0540 EST [facility] Esophagogastroduodenoscopy Procedure Report Attending Physician: KAR [...] biopsy, then treat accordingly with referral to live source operator for gluten-free diet and repeat EGD with biopsy in 6 months. Performed By: The procedure was performed by Dr. Kar Encinas. Report electronically signed by Dr. KAR ENCINAS MD, M.D. on 10/25/2007 at 09:16 [facility] Document ID: [id number] documented in this encounter Plan of Treatment Not on file documented as of this encounter Visit Diagnoses Not on filedocumented in this encounter Care Teams Bus Greaser Relationship Specialty Start Date End Date Shannan Winter MD PCP - General 04/08/09 03/15/19 documented as of this encounter
--- OUTSIDE RECORDS SUMMARY | 2024-07-02 20:54 | XMS_ITS | Encounter Summary ---
Author Organization [facility] Address [address] [place] [address] Care Team Providers Care Industrial X Ray Operator Name Role Phone Unavailable Primary Care Provider Unavailabl e Encounter Details Date Type Department Care Team (Late st Contact Info) Description 10/25/2007 7:33 EST - 10/25/2007 11:59 EST Hospital Encounter [address] [address] Kar Billings MD 111 [facility] 5 [place] [phone] Miguel Devine MD PhD [address] [place] [address] 1 [place] [phone] Discharge Disposition: Auto Discharge Social History Tobacco [...]
--- OUTSIDE RECORDS SUMMARY | 2024-07-02 20:54 | XMS_ITS | Encounter Summary ---
Author Organization [facility] Address [address] [place] [address] Care Team Providers Care Urologist Name Role Phone Shannan Vieyra MD Primary Care Provider Unavail able Encounter Details Date Type Department Care Team (Late st Contact Info) Description 06/16/2004 Results Only [facility] - Maple conversion [address] [place] [address] Angelo William MD Social History Tobacco Use [...] BLOOD GA S ORDERABLES Performing Organization Address [facility] Phone Number [facility] [address] [place] [address] * CREATININE (06/16/2004 5:45 EDT) Creatinine 0.7 0.7 - 1.5 mg/dl [facility] 06/16/2004 5:45 EDT 06/16/2004 7:02 EDT Angelo William MD HISTORICAL LAB FOR S Q LOAD Performing Organization Address [facility] Phone Number [facility] [address] [place] [address] * (ABNORMAL) BUN (06/16/2004 5:45 EDT) BUN 7(L) 10 - 26 mg/dl [facility] 06/16/2004 5:45 EDT 06/16/2004 7:02 EDT Angelo William MD CHEMISTRY & BLOOD GA S ORDERABLES Performing Organization Address [facility] Phone Number [facility] [address] [place] [address] * ELECTROLYTES (06/16/2004 5:45 EDT) Sodium 140 136 - 145 mEq/L [facility] Potassium 4.7 3.5 - 5.0 mEq/L [facility] Chloride 106 96 - 110 mEq/L [facility] CO2 26 24 - 32 mEq/L [facility] 06/16/2004 5:45 EDT 06/16/2004 7:02 EDT Angelo William MD CHEMISTRY & BLOOD GA S ORDERABLES Performing Organization Address [facility]/ZIP Co de Phone Number [facility] [address] [place] [address] * CREATININE (06/16/2004 5:45 EDT) Creatinine 0.7 0.7 - 1.5 mg/dl [facility] 06/16/2004 5:45 EDT 06/16/2004 7:02 EDT Angelo William MD HISTORICAL LAB FOR S Q LOAD Performing Organization Address [facility] Co de Phone Number [facility] [address] [place] [address] * (ABNORMAL) BUN (06/16/2004 5:45 EDT) BUN 7(L) 10 - 26 mg/dl [facility] 06/16/2004 5:45 EDT 06/16/2004 7:02 EDT Angelo William MD CHEMISTRY & BLOOD GA S ORDERABLES Performing Organization Address [facility] Co de Phone Number [facility] [address] [place] [address] documented in this encounter Visit Diagnoses Not on filedocumented in this encounter Care Teams Urologist Relationship Specialty Start Date End Date Shannan Vieyra MD PCP - General 04/08/09 03/15/19 documented as of this encounter
--- OUTSIDE RECORDS SUMMARY | 2024-07-02 20:54 | XMS_ITS | Encounter Summary ---
Author Organization [facility] Address [address] [place] [address] Care Team Providers Care Owner Name Role Phone Unavailable Primary Care Provider Unavailabl e Encounter Details Date Type Department Care Team (Late st Contact Info) Description 09/29/2005 15:30 EST Hospital Encounter [facility] - Other [address] [place] [address] Sita Dunn Social History Tobacco Use Types Packs/Day Years Used Date Smoking Tobacco: Never Smokeless Tobacco: Never Alcohol Use Standard Drinks/Week Comments No 0 (1 standard drink = 0.6 oz pur e alcohol) [facility] Utilities Answer Date Recorded In the [...] place to sleep or slept in a correction (including now)? No 10/28/2023 Interpersonal Safety Answer [...]
--- OUTSIDE RECORDS SUMMARY | 2024-07-02 20:54 | XMS_ITS | Encounter Summary ---
Author Organization [facility] Address [address] [place] [address] Care Team Providers Care Paper Machine Supervisor Name Role Phone Unavailable Primary Care Provider Unavailabl e Encounter Details Date Type Department Care Team (Late st Contact Info) Description 03/29/2005 15:20 EDT Hospital Encounter [facility] - Maple conversion [address] [place] [address] Pete Richey MD Social History Tobacco Use Types Packs/Day Years Used Date Smoking Tobacco: Never Smokeless Tobacco: Never Alcohol Use Standard Drinks/Week Comments No 0 (1 standard drink = 0.6 oz pur e alcohol) [facility] Utilities Answer Date Recorded In [...] place to sleep or slept in a snf (including now)? No 10/28/2023 Interpersonal Safety Answer [...]
--- OUTSIDE RECORDS SUMMARY | 2024-07-02 20:54 | XMS_ITS | Encounter Summary ---
Author Organization [facility] Address [address] [place] [address] Care Team Providers Care Qa Manager Name Role Phone Unavailable Primary Care Provider Unavailabl e Encounter Details Date Type Department Care Team (Latest Contact Info) Description 08/25/2005 15:23 EST Hospital Encounter [facility] - Other [address] [place] [phone] Shannan Vieyra MD Discharge Disposition: Auto Discharge [...]
--- OUTSIDE RECORDS SUMMARY | 2024-07-02 20:54 | XMS_ITS | Encounter Summary ---
Author Organization [facility] Address [address] [place] [address] Care Team Providers Care Green Tire Inspector Name Role Phone Unavailable Primary Care Provider Unavailabl e Encounter Details Date Type Department Care Team (Late st Contact Info) Description 09/05/2007 11:06 [facility] Hospital Encounter [facility] - Maple conversion [address] [place] [address] Shannan Vieyra MD Social History Tobacco Use Types Packs/Day Years Used Date Smoking Tobacco: Never Smokeless Tobacco: Never Alcohol Use Standard Drinks/Week Comments No 0 (1 standard drink = 0.6 oz pur e alcohol) [facility] Utilities Answer Date Recorded In the [...]
--- OUTSIDE RECORDS SUMMARY | 2024-07-02 20:54 | XMS_ITS | Encounter Summary ---
Author Organization [facility] Address [address] [place] [address] Care Team Providers Care Engineering Professionals Name Role Phone Unavailable Primary Care Provider Unavailabl e Encounter Details Date Type Department Care Team (Late st Contact Info) Description 11/14/2006 12:16 [facility] Hospital Encounter [facility] - Other [address] [place] [address] Denice Martinez MD [address] [place] [address] [address] [place] [phone] Discharge Disposition: Home or Self Care Social [...]
--- OUTSIDE RECORDS SUMMARY | 2024-07-02 20:54 | XMS_ITS | Encounter Summary ---
Author Organization [facility] Address [address] [place] [address] Care Team Providers Care Business Services Analyst Name Role Phone Unavailable Primary Care Provider Unavailabl e Encounter Details Date Type Department Care Team (Late st Contact Info) Description 06/29/2005 9:42 EDT Hospital Encounter [facility] - Other [address] [place] [address] Denice Martinez MD [address] [place] [address], [facility] 4 [place] [phone] Social History Tobacco Use Types Packs/Day Years Used Date Smoking Tobacco: Never Smokeless Tobacco: Never Alcohol Use Standard Drinks/Week Comments No 0 (1 standard drink = 0.6 oz pur e alcohol) [facility] Utilities Answer Date Recorded In the past 12 months has [employer], gas, oil, or water [employer] threatened to shut off services in your [...]
--- OUTSIDE RECORDS SUMMARY | 2024-07-02 20:54 | XMS_ITS | Encounter Summary ---
Author Organization [facility] Address [address] [place] [address] Care Team Providers Care Media Liaison Officer Name Role Phone Unavailable Primary Care Provider Unavailabl e Encounter Details Date Type Department Care Team (Late st Contact Info) Description 02/15/2005 18:16 EDT Hospital Encounter [address] [address] Denice Martinez MD [address] [place] [address], Level [address] [place] [phone] Social History Tobacco Use Types Packs/Day Years Used Date Smoking Tobacco: Never Smokeless Tobacco: Never Alcohol Use Standard Drinks/Week Comments No 0 (1 standard drink = 0.6 oz pur e alcohol) [facility] Utilities Answer Date Recorded In the past 12 months has [employer], gas, oil, or water [employer] threatened to shut off services in your [...] MD URINALYSIS ORDERABLE S Performing Organization Address City/State/[facility] Co de Phone Number [facility] [address] [place] [address] * URINE INFORMATION (02/15/2005 23:13 EDT) Period 25 hrs [facility] Specimen Volume 2025 mls [facility] 02/15/2005 23:1 3 EDT 02/15/2005 23:13 EDT Denice Martinez MD URINALYSIS ORDERABLE S Performing Organization Address [facility] Co de Phone Number [facility] [address] [place] [address] * (ABNORMAL) CREATININE CLEARANCE (02/15/2005 23:13 EDT) Creatinine Clearance 168.8(H) 87 - 107 ml/min [facility] Creatinine, Urn [place] 50.0 mg/dl [facility] 02/15/2005 23:1 3 EDT 02/15/2005 23:13 EDT Denice Martinez MD URINALYSIS ORDERABLE S Performing Organization Address [facility] Co de Phone Number [facility] [address] [place] [address] documented in this encounter Visit Diagnoses Not on filedocumented in this encounter
--- OUTSIDE RECORDS SUMMARY | 2024-07-02 20:54 | XMS_ITS | Encounter Summary ---
Author Organization [facility] Address [address] [place] [address] Care Team Providers Care Fiberglass Machine Operator Name Role Phone Shannan Vieyra MD Primary Care Provider Unavail able Encounter Details Date Type Department Care Team (Late st Contact Info) Description 10/12/2004 Office Visit [facility] - Maple conversion [address] [place] [address] Royal Saunders PA-C [address] [place] [address] Social History Tobacco Use Types Packs/Day Years [...] on filedocumented in this encounter Care Teams Fiberglass Machine Operator Relationship Specialty Start Date End Date Shannan Vieyra MD PCP - General 04/08/09 03/15/19 documented as of this encounter
--- OUTSIDE RECORDS SUMMARY | 2024-07-02 20:54 | XMS_ITS | Encounter Summary ---
Author Organization [facility] Address [address] [place] [address] Care Team Providers Care Teacher Vocational Training Name Role Phone Shannan Winter MD Primary Care Provider Unavail able Encounter Details Date Type Department Care Team (Late st Contact Info) Description 11/14/[address] [facility] - Maple conversion [address] [place] [address] Julita Martinez MD [address] [place] [address], [facility] 4 [place] [phone] Social History Tobacco Use Types Packs/Day Years [...] ? DORIS KERR ? Accession #: ? [id number] : ? 1980 (Age: 26) ??F ?Collect Date: ? 11/14/2006 Location: ? [facility] ? Receive Date: ? 11/15/2006 Provider: ?JULITA MARTINEZ MD Copy to: ?SHANNAN WINTER MD ? Specimen/Source: ?ThinPrep Pap Test, Cervix/Endocervix, processed on Swizcom TechnologiesPrep Imaging System, with manual evaluation Last Menstrual [...] MD PATHOLOGY ORDERABLES [facility] [address] [place] [address] documented in this encounter Visit Diagnoses Not on filedocumented in this encounter Care Teams Teacher Vocational Training Relationship Specialty Start Date End Date Shannan Winter MD PCP - General 04/08/09 03/15/19 documented as of this encounter
--- OUTSIDE RECORDS SUMMARY | 2024-07-02 20:54 | XMS_ITS | Encounter Summary ---
Author Organization [facility] Address [address] [place] [address] Care Team Providers Care Director Patient Financial Services Name Role Phone Shannan Winter MD Primary Care Provider Unavail able Encounter Details Date Type Department Care Team (Late st Contact Info) Description 06/29/2005 Results Only [facility] - Maple conversion [address] [place] [address] Julita Martinez MD [address] [place] [address], [facility] 4 [place] [phone] Social History Tobacco Use Types Packs/Day Years [...] ? DORIS KERR ? Accession #: ? [id number] : ? 1980 (Age: 25) ??F ?Collect Date: ? 06/29/2005 Location: ? [facility] ? Receive Date: ? 06/30/2005 Provider: ?JULITA MARTINEZ MD Copy to: ?SHANNAN WINTER MD ? Specimen/Source: ?ThinPrep Pap Test, Cervix/Endocervix, processed on [employer] ThinPrep Imaging System, with manual evaluation Last [...] MD PATHOLOGY ORDERABLES [facility] [address] [place] [address] documented in this encounter Visit Diagnoses Not on filedocumented in this encounter Care Teams Director Patient Financial Services Relationship Specialty Start Date End Date Shannan Winter MD PCP - General 04/08/09 03/15/19 documented as of this encounter
--- OUTSIDE RECORDS SUMMARY | 2024-07-02 20:54 | XMS_ITS | Encounter Summary ---
Author Organization [facility] Address [address] [place] [address] Care Team Providers Care Executive Director Sheltered Workshop Name Role Phone Unavailable Primary Care Provider Unavailabl e Encounter Details Date Type Department Care Team (Late st Contact Info) Description 04/21/2005 23:18 EDT Hospital Encounter [facility] - Other [address] [place] [address] Denice Martinez MD [address] [place] [address], [facility] 4 [place] [phone] Social History Tobacco Use Types Packs/Day Years Used Date Smoking Tobacco: Never Smokeless Tobacco: Never Alcohol Use Standard Drinks/Week Comments No 0 (1 standard drink = 0.6 oz pur e alcohol) [facility] Utilities Answer Date Recorded In the past 12 months has [employer], gas, oil, or water [employer] threatened to shut off services in your [...]
--- OUTSIDE RECORDS SUMMARY | 2024-07-02 20:54 | XMS_ITS | Encounter Summary ---
Author Organization [facility] Address [address] [place] [address] Care Team Providers Care Script Developer Name Role Phone Unavailable Primary Care Provider Unavailabl e Encounter Details Date Type Department Care Team (Late st Contact Info) Description 01/19/2005 16:47 EDT Hospital Encounter [facility] - [address] [address] Denice Martinez MD [address] [place] [address] 4 [place] [phone] Social History Tobacco Use Types Packs/Day Years Used Date Smoking Tobacco: Never Smokeless Tobacco: Never Alcohol Use Standard Drinks/Week Comments No 0 (1 standard drink = 0.6 oz pur e alcohol) [facility] Utilities Answer Date Recorded In the past 12 months has [facility] [employer], gas, oil, or water [employer] threatened to shut off services in your [...] <0.90 ? TEST PERFORMED OR REFERRED BY [facility] ? [address] ? [place] [address] ? Front Office Director: ? Pawan AAnay Saunders, M.D. ? [facility] Parvovirus IgM Ab 0.13Unit: index(Note) -- EXPECTED VALUES -- ? (Ref Range) <0.90 ? [facility] Interpretation (Note) Results suggest past infection. ? TEST PERFORMED OR REFERRED BY [facility] ? [address] ? [place] [address] ? Front Office Director: ? Pawan Saunders M.D. ? [facility] 01/19/2005 16:4 9 EDT 01/19/2005 17:03 EDT Denice Martinez MD IMMUNOLOGY AND NAFISA DUBOIS ORDERABLES [facility] [address] [place] [address] documented in this encounter Visit Diagnoses Not on filedocumented in this encounter
--- OUTSIDE RECORDS SUMMARY | 2024-07-02 20:54 | XMS_ITS | Encounter Summary ---
Author Organization [facility] Address [address] [place] [address] Care Team Providers Care Administration Intern Name Role Phone Unavailable Primary Care Provider Unavailabl e Encounter Details Date Type Department Care Team (Latest Contact Info) Description 11/19/2006 14:07 EST Hospital Encounter [address] [address] Humaira Gallagher MD [address] [place] [phone] Discharge Disposition: Auto Discharge Social History [...] 16:3 8 EST Narrative 04/19/2009 6:00 EDT *[facility]-[id number]* 26 year old wiht blow to foot, [...] MD / Michelle Coelho MD - 04/19/2009 *[facility]-[id number]* 26 year old wiht blow to foot, [...]
--- OUTSIDE RECORDS SUMMARY | 2024-07-02 20:54 | XMS_ITS | Encounter Summary ---
Author Organization [facility] Address [address] [place] [address] Care Team Providers Care Title One Reading Teacher Name Role Phone Unavailable Primary Care Provider Unavailabl e Encounter Details Date Type Department Care Team (Late st Contact Info) Description 05/06/2005 9:02 EDT Hospital Encounter [address] [address] Denice Martinez MD [address] [place] [address], [address] [place] [phone] Social History Tobacco Use Types Packs/Day Years Used Date Smoking Tobacco: Never Smokeless Tobacco: Never Alcohol Use Standard Drinks/Week Comments No 0 (1 standard drink = 0.6 oz pur e alcohol) [facility] Utilities Answer Date Recorded In the past 12 months has [employer], gas, oil, or water [employer] threatened to shut off services in your [...]
--- OUTSIDE RECORDS SUMMARY | 2024-07-02 20:54 | XMS_ITS | Encounter Summary ---
Author Organization [facility] Address [address] [place] [address] Care Team Providers Care Supervisor Plasma Name Role Phone Shannan Vieyra MD Primary Care Provider Unavail able Encounter Details Date Type Department Care Team (Late st Contact Info) Description 06/14/[address] [facility] - Maple conversion [address] [place] [address] Angelo William MD Social History Tobacco Use [...] & DNA PROBE ORDERABLES Performing Organization Address [facility] de Phone Number [facility] [address] [place] [address] * (ABNORMAL) HEMAGRAM AND DIFFERENTIAL (06/14/2004 8:10 [...] & DNA PROBE ORDERABLES Performing Organization Address [facility] Co de Phone Number [facility] [address] [place] [address] * HEMAGRAM AND DIFFERENTIAL (06/14/2004 8:10 EDT) [...] DNA PROBE ORDERABLES [facility] [address] [place] [address] * (ABNORMAL) HEMAGRAM AND DIFFERENTIAL (06/14/2004 8:10 EDT) WBC 6.33 4.0 - 12.4 K/cmm [facility] RBC 4.78 3.86 - 5.04 M/cmm [facility] Hemoglobin 13.4 11.6 - 15.2 gm/dl [facility] HCT 39.6 34.9 - 44.4 % [facility] MCV 83 81 - 98 [...] & DNA PROBE ORDERABLES Performing Organization Address City/State/[facility] Co de Phone Number [facility] [address] [place] [address] documented in this encounter Visit Diagnoses Not on filedocumented in this encounter Care Teams Supervisor Plasma Relationship Specialty Start Date End Date Shannan Vieyra MD PCP - General 04/08/09 03/15/19 documented as of this encounter
--- OUTSIDE RECORDS SUMMARY | 2024-07-02 20:54 | XMS_ITS | Encounter Summary ---
Author Organization [facility] Address [address] [place] [address] Care Team Providers Care Automat Car Attendant Name Role Phone Shannan Vieyra MD Primary Care Provider Unavail able Encounter Details Date Type Department Care Team (Late st Contact Info) Description 10/14/2004 Results Only [facility] - Maple conversion [address] [place] [address] Toño Hernadez MD [address] [place] [id number] Social History Tobacco Use Types Packs/Day Years [...] electronically signed by: ? SHAYE LYNN MD [facility] ? Report Date: ??10/22/2004 14:30 End of Report [facility] 10/14/2004 10/16/2004 Toño Hernadez MD PATHOLOGY ORDERAB LES Performing Organization Address City/State/[facility] Co de Phone Number [facility] [address] [place] [address] documented in this encounter Visit Diagnoses Not on filedocumented in this encounter Care Teams Automat Car Attendant Relationship Specialty Start Date End Date Shannan Vieyra MD PCP - General 04/08/09 03/15/19 documented as of this encounter
--- OUTSIDE RECORDS SUMMARY | 2024-07-02 20:54 | XMS_ITS | Encounter Summary ---
Author Organization [facility] Address [address] [place] [address] Care Team Providers Care Product Marketing Specialist Name Role Phone Shannan Winter MD Primary Care Provider Unavail able Encounter Details Date Type Department Care Team (Late st Contact Info) Description 10/25/2007 Results Only [facility] Cardiology - [address] [place] [address] Miguel Devine MD PhD [address] [place] [address] [address] [place] [phone] Social History Tobacco Use Types Packs/Day Years [...] & BLOOD GAS ORDERABLES Performing Organization Address [facility] Phone Number [facility] [address] [place] [address] * (ABNORMAL) T4 (10/25/2007 11:04 EST) T4, Total 23.9(H) 4.5 - 10.9 ug/dL [facility] 10/25/2007 11:0 4 EST 10/25/2007 11:06 EST Miguel Devine MD PhD CHEMIS TRY & BLOOD GAS ORDERABLES Performing Organization Address [facility] Phone Number [facility] [address] [place] [address] * (ABNORMAL) T3, TOTAL (10/25/2007 11:04 EST) T3, Total >800(H) 60 - 181 ng/dL [facility] 10/25/2007 11:0 4 EST 10/25/2007 11:06 EST Miguel Devine MD PhD CHEMIS TRY & BLOOD GAS ORDERABLES Performing Organization Address [facility] Phone Number [facility] [address] [place] [address] * (ABNORMAL) T4 FREE (10/25/2007 11:04 EST) Free T4 5.9(H) 0.8 - 1.8 ng/dL [facility] 10/25/2007 11:0 4 EST 10/25/2007 11:06 EST Miguel Devine MD PhD CHEMIS TRY & BLOOD GAS ORDERABLES Performing Organization Address [facility] Phone Number [facility] [address] [place] [address] * SURGICAL PATHOLOGY (10/25/2007 0:00 EST) Pathology Report: SURGICAL PATHOLOGY REPORT Reports generated via electronic interface contain original data; however they are lacking the format of the original report. Caution should be taken when reading/interpreti ng unformatted reports. Name: ? MADHUDORIS Mykel ? Accession #: ? [id number] ? : ? 1980 (Age: 27) ??F [...] MD PATHOLOGY ORDERAB LES Performing Organization Address City/State/[facility] Co de Phone Number [facility] [address] [place] [address] documented in this encounter Visit Diagnoses Not on filedocumented in this encounter Care Teams Product Marketing Specialist Relationship Specialty Start Date End Date Shannan Winter MD PCP - General 04/08/09 03/15/19 documented as of this encounter
--- OUTSIDE RECORDS SUMMARY | 2024-07-02 20:55 | XMS_ITS | Encounter Summary ---
Author Organization [facility] Address [address] [place] [address] Care Team Providers Care Retoucher Name Role Phone Unavailable Primary Care Provider Unavailabl e Encounter Details Date Type Department Care Team (Late st Contact Info) Description 04/06/2003 15:13 EDT Hospital Encounter [address] [address] Anahy Vazquez MD [address] [place] [address] Social History Tobacco Use Types Packs/Day Years Used Date Smoking Tobacco: Never Smokeless Tobacco: Never Alcohol Use Standard Drinks/Week Comments No 0 (1 standard drink = 0.6 oz pur e alcohol) [facility] Utilities Answer Date Recorded In the [...] PROB E ORDERABLES Performing Organization Address City/State/[facility] Co de Phone Number [facility] [address] [place] [address] documented in this encounter Visit Diagnoses Not on filedocumented in this encounter
--- OUTSIDE RECORDS SUMMARY | 2024-07-02 20:55 | XMS_ITS | Encounter Summary ---
Author Organization [facility] Address [address] [place] [address] Care Team Providers Care Vegetable Harvest Machine Operator Name Role Phone Shannan Vieyra MD Primary Care Provider Unavail Leida Jackson PA-C Primary Care Provi melvin Comfort Zelaya NP Primary Care Provider [phone] Encounter Details Date Type Department Care Team (Late st Contact Info) Description 06/10/2004 Before PRISM Converted Visit (Maple) [facility] - Maple conversion [address] [place] [address] Paradise Padilla MD [address] [place] [address] Social History Tobacco Use Types Packs/Day Years Used Date Smoking Tobacco: Never Assessed Sex and Gender Information Value Date Recorded Sex Assigned at Not on file Gender Identity Not on file Sexual Orientation Not on file documented as of this encounter Plan of Treatment Not on file documented as of this encounter Visit Diagnoses Not on filedocumented in this encounter Care Teams Vegetable Harvest Machine Operator Relationship Specialty Start Date End Date Shannan Vieyra MD PCP - General 04/08/09 03/15/19 Leida Cerda PA-C PCP - General 03/16/19 03/07/22 Comfort Zelaya NP [address] [place] [address] PCP - General Family Medicine - Primary Care 03/08/22 documented as of this encounter
--- OUTSIDE RECORDS SUMMARY | 2024-07-02 20:55 | XMS_ITS | Encounter Summary ---
Author Organization [facility] Address [address] [place] [address] Care Team Providers Care Centrifugal Casting Machine Operator Name Role Phone Unavailable Primary Care Provider Unavailabl e Encounter Details Date Type Department Care Team (Late st Contact Info) Description 04/18/2003 19:22 EDT Hospital Encounter [facility] [address] [place] [address] Pete Richey MD Social History Tobacco Use Types Packs/Day Years Used Date Smoking Tobacco: Never Smokeless Tobacco: Never Alcohol Use Standard Drinks/Week Comments No 0 (1 standard drink = 0.6 oz pur e alcohol) [facility] Utilities Answer Date Recorded In the past 12 months has [employer], gas, oil, or water company threatened [...]
--- OUTSIDE RECORDS SUMMARY | 2024-07-02 20:55 | XMS_ITS | Encounter Summary ---
Author Organization [facility] Address [address] [place] [address] Care Team Providers Care Practice Billing Associate Name Role Phone Unavailable Primary Care Provider Unavailabl e Encounter Details Date Type Department Care Team (Late st Contact Info) Description 02/19/2003 12:54 EDT Hospital Encounter [facility] - Other [address] [place] [address] Leida Cerda PA-C [address] [place] [address] [address] [place] [address] Discharge Disposition: Auto Discharge Social History Tobacco [...]
--- OUTSIDE RECORDS SUMMARY | 2024-07-02 20:55 | XMS_ITS | Encounter Summary ---
Author Organization [facility] Address [address] [place] [address] Care Team Providers Care Bilingual Recruiter Name Role Phone Unavailable Primary Care Provider Unavailabl e Encounter Details Date Type Department Care Team (Latest Contact Info) Description 04/02/2003 16:52 EDT Hospital Encounter [facility] - Other [address] [place] [address] Shannan Winter MD Discharge Disposition: Auto Discharge [...] ANUSHKASophia DORIS Mykel ? Accession #: ? [id number] : ? 1980 (Age: 23) ??F ?Collect [...] Winter MD PATHOLOGY ORDERABLES Performing Organization Address City/State/[facility] Co de Phone Number [facility] [address] [place] [address] documented in this encounter Visit Diagnoses Not on filedocumented in this encounter
--- OUTSIDE RECORDS SUMMARY | 2024-07-02 20:55 | XMS_ITS | Encounter Summary ---
Author Organization [facility] Address [address] [place] [address] Care Team Providers Care Dynamic Etching Processor Name Role Phone Shannan Vieyra MD Primary Care Provider Unavail able Encounter Details Date Type Department Care Team (Late st Contact Info) Description 02/12/2003 Results Only [facility] Family Medicine - [place] [id number] [place] [address] Leida Cerda PA-C [address] [facility] [address] [place], [place] [address] Social History Tobacco Use Types Packs/Day Years [...] & BLOOD GAS ORDERABLES Performing Organization Address [facility] Co de Phone Number [facility] [address] [place] [address] * (ABNORMAL) FREE T4 (02/12/2003 11:37 EDT) Free T4 3.1(H) 0.8 - 1.8 ng/dl [facility] 02/12/2003 11:3 7 EDT 02/12/2003 16:43 EDT Leida Cerda PA-C CHEMISTRY & BLOOD GAS ORDERABLES Performing Organization Address [facility] de Phone Number [facility] [address] [place] [address] * (ABNORMAL) COMPREHENSIVE METABOLIC PANEL (CMP) (02/12/2003 [...] & BLOOD GAS ORDERABLES Performing Organization Address [facility] Co de Phone Number [facility] [address] [place] [address] * (ABNORMAL) HEMAGRAM (02/12/2003 11:37 EDT) WBC 7.03 4.0 - 12.4 K/cmm [facility] RBC 5.22(H) 3.86 - 5.04 M/cmm [facility] Hemoglobin 14.2 11.6 - 15.2 [...] HEMATOLOGY & PF4 ORDERABLES Performing Organization Address City/[facility] Co de Phone Number [facility] [address] [place] [address] documented in this encounter Visit Diagnoses Not on filedocumented in this encounter Care Teams Dynamic Etching Processor Relationship Specialty Start Date End Date Shannan Vieyra MD PCP - General 04/08/09 03/15/19 documented as of this encounter
--- OUTSIDE RECORDS SUMMARY | 2024-07-02 20:55 | XMS_ITS | Encounter Summary ---
Author Organization [facility] Address [address] [place] [address] Care Team Providers Care Product Marketing Executive Name Role Phone Unavailable Primary Care Provider Unavailabl e Encounter Details Date Type Department Care Team (Latest Contact Info) Description 04/15/2003 14:24 EDT Hospital Encounter [facility] - Maple conversion [address] [place] [address] Pete Richey MD Discharge Disposition: Auto Discharge [...] BLOOD GA S ORDERABLES Performing Organization Address City/[facility] Co de Phone Number [facility] [address] [place] [address] * (ABNORMAL) T3, TOTAL (04/15/2003 11:55 EDT) T3, Total 302(H) 60 - 181 ng/dl [facility] 04/15/2003 11:5 5 EDT 04/15/2003 17:34 EDT Germain Mason MD CHEMISTRY & BLOOD GA S ORDERABLES Performing Organization Address [facility] Co de Phone Number [facility] [address] [place] [address] * (ABNORMAL) T4 FREE (04/15/2003 11:55 EDT) Free T4 1.9(H) 0.8 - 1.8 ng/dl [facility] 04/15/2003 11:5 5 EDT 04/15/2003 17:34 EDT Germain Mason MD CHEMISTRY & BLOOD GA S ORDERABLES Performing Organization Address City/[facility] Co de Phone Number [facility] [address] [place] [address] documented in this encounter Visit Diagnoses Not on filedocumented in this encounter
--- OUTSIDE RECORDS SUMMARY | 2024-07-02 20:55 | XMS_ITS | Encounter Summary ---
Author Organization [facility] Address [address] [place] [address] Care Team Providers Care Elementary [employer] Social Worker Name Role Phone Shannan Vieyra MD Primary Care Provider Unavail able Encounter Details Date Type Department Care Team (Late st Contact Info) Description 04/02/2003 Results Only [facility] Medicine [address] [address] Shannan Vieyra MD Social History Tobacco Use [...] Result No Neisseria gonorrhoeae DNA detected by corporate associate attorney mediated amplification. [facility] Report Status Final [id number] [facility] Specimen Description Endocervix [facility] 04/02/2003 11:3 3 EDT 04/02/2003 17:20 EDT Shannan Vieyra MD MICROBIOLOGY - GENER AL ORDERABLES Performing Organization Address City/State/[facility] Co de Phone Number [facility] [address] [place] [address] * CHLAMYDIA TRACHOMATIS AMPLIFIED PROBE (04/02/2003 11:33 EDT) Specimen Description Endocervix [facility] Result No Chlamydia trachomatis DNA detected by corporate associate attorney mediated amplification. [facility] Report Status Final [id number] [facility] 04/02/2003 11:3 3 EDT 04/02/2003 17:21 EDT Shannan Vieyra MD MICROBIOLOGY - GENER AL ORDERABLES Performing Organization Address [facility] Co de Phone Number [facility] [address] [place] [address] documented in this encounter Visit Diagnoses Not on filedocumented in this encounter Care Teams Elementary [employer] Social Worker Relationship Specialty Start Date End Date Shannan Vieyra MD PCP - General 04/08/09 03/15/19 documented as of this encounter
--- OUTSIDE RECORDS SUMMARY | 2024-07-02 20:55 | XMS_ITS | Encounter Summary ---
Author Organization [facility] Address [address] [place] [address] Care Team Providers Care Tank Tester Name Role Phone Shannan Vieyra MD Primary Care Provider Unavail able Encounter Details Date Type Department Care Team (Late st Contact Info) Description 02/08/2004 Office Visit [facility] - Maple conversion [address] [place] [address] Adriana August, TUNNELING MACHINE OPERATOR [address] [place] [address] Social History Tobacco Use Types Packs/Day Years [...] fever, chills and nausea. 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 Pt seen at [facility] 02/08/04, dx: pyelonephritis. Pt on Cipro. Culture [...] filedocumented in this encounter Care Teams Tank Tester Relationship Specialty Start Date End Date Shannan Vieyra MD PCP - General 04/08/09 03/15/19 documented as of this encounter
--- OUTSIDE RECORDS SUMMARY | 2024-07-02 20:55 | XMS_ITS | Encounter Summary ---
Author Organization [facility] Address [address] [place] [address] Care Team Providers Care Deployment Specialist Name Role Phone Isela Winter MD Primary Care Provider Unavail able Encounter Details Date Type Department Care Team (Late st Contact Info) Description 06/05/2004 Office Visit [facility] - Maple conversion [address] [place] [address] Jennifer Rhodes PA Social History Tobacco Use [...] substitute OK. Follow-up: ISELA WINTER MD, , [facility], [address], [place], [address] Follow up Tuesday. Jennifer Gardiner (Electronically signed [...] had severe nausea. No sinus pain. 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 --00:26 Genesis Mahmood E.M.TAnay IV fluid bag #3 discontinued (1000 cc absorbed). --03:11 Irina Hernández R.N. IV site discontinued: IV catheter intact, dressing applied. --03:11 Irina Hernández R.N. DISPOSITION / DISCHARGE Patient reports pain level on departure as 0/10. Condition at departure: improved. No barriers to learning present. Discharge instructions reviewed with the patient and client support analyst. Warnings reviewed. Reviewed medication. Treatments reviewed. Reviewed referrals. Activity restrictions were reviewed. Patient verbalized understanding. The patient was discharged home and accompanied by client support analyst. The patient left the Emergency Department ambulatory [...] label instructions. Follow-up: ISELA WINTER MD, , [facility], [address], [place], [address] Follow up Tuesday if not better. Jennifer Gardiner (Electronically signed Jennifer Gardiner 06/06/2004 6:14) Physician's Clinical Report Emergency Department ??? Nursing Summary Registration Date/Time 06/05/2004 23:56 TRIAGE Initial Assessment Acuity: LEVEL 4. BP: 144 / 90 HR: 137 RR: 36 Temp: 38.4 tympanic Alert. --00:02 Cassy Kyle R.N. Medications Atenolol. Flonase Nasal [place]. (Neomycin ear drops started today). (Tapazol). --00:02 Cassy Kyle R.N. Allergies PENICILLIN- uncertain as to what symptoms developed. SULFA DRUGS- symptoms consisted of rash and shortness of breath. --00:02 Cassy Kyle R.N. History Chief Complaint: LEFT EAR PAIN. (about 5 days ago). Pain level now: 10/10. Reports fever and muscle aches. The patient has had nausea. 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 Recently seen in the office; [...] verbalized understanding. The patient was accompanied by client support analyst. The patient left the Emergency Department ambulatory. --03:50 Ector Ferguson R.N., R.N. Kellie Klus R.N. Fanda Plessl, E.M.T. Joan Carson R.N. at 06/06/2004 3:59 by Nara Malin R.N. documented in this encounter Plan of Treatment Not on file documented as of this encounter Visit Diagnoses Not on filedocumented in this encounter Care Teams Deployment Specialist Relationship Specialty Start Date End Date Isela Winter MD PCP - General 04/08/09 03/15/19 documented as of this encounter
--- OUTSIDE RECORDS SUMMARY | 2024-07-02 20:55 | XMS_ITS | Encounter Summary ---
Author Organization [facility] Address [address] [place] [address] Care Team Providers Care Tangled Yarn Worker Name Role Phone Shannan Vieyra MD Primary Care Provider Unavail able Encounter Details Date Type Department Care Team (Late st Contact Info) Description 04/19/2004 Office Visit [facility] - Maple conversion [address] [place] [address] Richard Fajardo MD [facility] [place] [address] Social History Tobacco Use Types [...] substitute OK. Follow-up: Follow up with Doctor [facility] u[facility] Richard Fajardo M.D. (Electronically signed Richard [...] has had nausea and vomiting. (dizziness). 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 PAST HX: Last normal menstrual [...] air --05:34 Yumiko Hernandez R.N. returned from [place] by stretcher with tech. --06:35 Briana Vo [...] patient was discharged home and accompanied by outsole beveler. The patient left the Emergency Department ambulatory [...] on filedocumented in this encounter Care Teams Tangled Yarn Worker Relationship Specialty Start Date End Date Shannan Vieyra MD PCP - General 04/08/09 03/15/19 documented as of this encounter
--- OUTSIDE RECORDS SUMMARY | 2024-07-02 20:55 | XMS_ITS | Encounter Summary ---
Author Organization [facility] Address [address] [place] [address] Care Team Providers Care School Examiner Name Role Phone Unavailable Primary Care Provider Unavailabl e Encounter Details Date Type Department Care Team (Latest Contact Info) Description 02/08/2004 16:01 EDT Hospital Encounter [address] [address] Adriana August, HANDLE SEWER [address] [place] [address] Discharge Disposition: Auto Discharge Social History Tobacco [...]
--- OUTSIDE RECORDS SUMMARY | 2024-07-02 20:55 | XMS_ITS | Encounter Summary ---
Author Organization [facility] Address [address] [place] [address] Care Team Providers Care Supply Chain Associate Name Role Phone Shannan Vieyra MD Primary Care Provider Unavail able Encounter Details Date Type Department Care Team (Late st Contact Info) Description 06/13/2004 Results Only [facility] - Maple conversion [address] [place] [address] Angelo William MD Social History Tobacco Use [...] ABS Basophils 0.02 0.01 - 0.11 K/cmm [facility] Type of Diff: Automated [facility] 06/13/2004 6:00 EDT 06/13/2004 9:11 EDT Angelo William MD PACKAGES & DNA PROBE ORDERABLES Performing Organization Address [facility] Co de Phone Number [facility] [address] [place] [address] * (ABNORMAL) HEMAGRAM AND DIFFERENTIAL (06/13/2004 6:00 [...] & DNA PROBE ORDERABLES Performing Organization Address City/[facility] Co de Phone Number [facility] [address] [place] [address] * (ABNORMAL) HEMAGRAM AND DIFFERENTIAL (06/13/2004 6:00 [...] & DNA PROBE ORDERABLES Performing Organization Address City/[facility]/ZIP Co de Phone Number [facility] [address] [place] [address] * (ABNORMAL) HEMAGRAM AND DIFFERENTIAL (06/13/2004 6:00 [...] & DNA PROBE ORDERABLES Performing Organization Address City/State/[facility] Co de Phone Number [facility] [address] [place] [address] documented in this encounter Visit Diagnoses Not on filedocumented in this encounter Care Teams Supply Chain Associate Relationship Specialty Start Date End Date Shannan Vieyra MD PCP - General 04/08/09 03/15/19 documented as of this encounter
--- OUTSIDE RECORDS SUMMARY | 2024-07-02 20:55 | XMS_ITS | Encounter Summary ---
Author Organization [facility] Address [address] [place] [address] Care Team Providers Care Vice President Underwriting Name Role Phone Unavailable Primary Care Provider Unavailabl e Encounter Details Date Type Department Care Team (Latest Contact Info) Description 06/05/2004 23:56 EDT - 06/06/2004 11:59 EDT Hospital Encounter [facility] Emergency Department - [address] [address] Emergency, Default, MD Discharge Disposition: Home or [...] EDT) Specimen Description Blood Right Arm [facility] Result No growth [facility] Report Status Final [id number] [facility] 06/06/2004 2:30 EDT 06/06/2004 2:43 EDT Default Emergency MICROBIOLOGY - GENE RAL ORDERABLES Performing Organization Address [facility] Co de Phone Number [facility] [address] [place] [address] * HOLD SST (06/06/2004 2:30 EDT) Hold SST Hold for further testing. Specimen will be held for 30 days. [facility] 06/06/2004 2:30 EDT 06/06/2004 2:40 EDT Default Emergency LAB INFO SERVICE AN D SUPPORT & PHONE RESULT Performing Organization Address [facility] de Phone Number [facility] [address] [place] [address] * (ABNORMAL) HEMAGRAM AND DIFFERENTIAL (06/06/2004 2:30 EDT) WBC 5.99 4.0 - 12.4 K/cmm [facility] RBC 5.09(H) 3.86 - 5.04 M/cmm [facility] Hemoglobin 13.9 11.6 - 15.2 gm/dl [facility] HCT 40.9 34.9 - 44.4 % [facility] MCV 80(L) 81 - 98 fl [...] DNA PROB E ORDERABLES Performing Organization Address [facility] de Phone Number [facility] [address] [place] [address] * BACTERIAL CULTURE, BLOOD (06/06/2004 2:15 EDT) Specimen Description Blood Left Arm [facility] Result STAPHYLOCOCCU S, COAGULASE NEGATIVE Isolated in one bottle. First detected in less than 24 hours. [facility] Report Status Final [id number] [facility] 06/06/2004 2:15 EDT 06/06/2004 2:42 EDT Default Emergency MD MICROBIOLOGY - GENE RAL ORDERABLES Performing Organization Address [facility] de Phone Number [facility] [address] [place] [address] * CT HEAD WO CONTRAST (06/06/2004 1:47 [...]
--- OUTSIDE RECORDS SUMMARY | 2024-07-02 20:55 | XMS_ITS | Encounter Summary ---
Author Organization [facility] Address [address] [place] [address] Care Team Providers Care Rodeo Clown Name Role Phone Unavailable Primary Care Provider Unavailabl e Encounter Details Date Type Department Care Team (Late st Contact Info) Description 09/16/2003 15:[address] [facility] - Maple conversion [address] [place] [address] Pete Richey MD Social History Tobacco Use [...]
--- OUTSIDE RECORDS SUMMARY | 2024-07-02 20:55 | XMS_ITS | Encounter Summary ---
Author Organization [facility] Address [address] [place] [address] Care Team Providers Care Director Of Agronomy Name Role Phone Shannan Vieyra MD Primary Care Provider Unavail Leida Jackson PA-C Primary Care Provi melvin Comfort Zelaya NP Primary Care Provider [phone] Encounter Details Date Type Department Care Team (Late st Contact Info) Description 06/10/2004 Before PRISM Converted Visit (Maple) [facility] - Maple conversion [address] [place] [address] Paradise Padilla MD [address] [place] [address] Social History Tobacco Use Types Packs/Day Years [...] in this encounter Care Teams Director Of Agronomy Relationship Specialty Start Date End Date Shannan Vieyra MD PCP - General 04/08/09 03/15/19 Leida Cerda PA-C PCP - General 03/16/19 03/07/22 Comfort Zelaya NP [address] [place] [phone] PCP - General Family Medicine - Primary Care 03/08/22 documented as of this encounter
--- OUTSIDE RECORDS SUMMARY | 2024-07-02 20:55 | XMS_ITS | Encounter Summary ---
Author Organization [facility] Address [address] [place] [address] Care Team Providers Care Water Control Supervisor Name Role Phone Unavailable Primary Care Provider Unavailabl e Encounter Details Date Type Department Care Team (Latest Contact Info) Description 06/05/2003 14:58 EDT Hospital Encounter [facility] - Maple conversion [address] [place] [address] Germain Mason MD [address] [place] [phone] Discharge Disposition: Auto Discharge Social History Tobacco [...] BLOOD GA S ORDERABLES Performing Organization Address [facility] Co de Phone Number [facility] [address] [place] [address] * (ABNORMAL) T3, TOTAL (06/05/2003 14:55 EDT) T3, Total 284(H) 60 - 181 ng/dl [facility] 06/05/2003 14:5 5 EDT 06/05/2003 14:57 EDT Germain Mason MD CHEMISTRY & BLOOD GA S ORDERABLES Performing Organization Address [facility] Co de Phone Number [facility] [address] [place] [address] * (ABNORMAL) T4 FREE (06/05/2003 14:55 EDT) Free T4 1.9(H) 0.8 - 1.8 ng/dl [facility] 06/05/2003 14:5 5 EDT 06/05/2003 14:57 EDT Germani Mason MD CHEMISTRY & BLOOD GA S ORDERABLES Performing Organization Address [facility] Co de Phone Number [facility] [address] [place] [address] documented in this encounter Visit Diagnoses Not on filedocumented in this encounter
--- OUTSIDE RECORDS SUMMARY | 2024-07-02 20:55 | XMS_ITS | Encounter Summary ---
Author Organization [facility] Address [address] [place] [address] Care Team Providers Care Refined Syrup Operator Name Role Phone Shannan Vieyra MD Primary Care Provider Unavail able Encounter Details Date Type Department Care Team (Late st Contact Info) Description 04/02/2004 Office Visit [facility] Cardiology - Main [address] [address] Pete Richey MD Social History Tobacco Use [...] on filedocumented in this encounter Care Teams Refined Syrup Operator Relationship Specialty Start Date End Date Shannan Vieyra MD PCP - General 04/08/09 03/15/19 documented as of this encounter
--- OUTSIDE RECORDS SUMMARY | 2024-07-02 20:55 | XMS_ITS | Encounter Summary ---
Author Organization [facility] Address [address] [place] [address] Care Team Providers Care Tower Erector Name Role Phone Shannan Vieyra MD Primary Care Provider Unavail able Encounter Details Date Type Department Care Team (Late st Contact Info) Description 06/05/2004 Results Only [facility] - Maple conversion [address] [place] [address] Cassy Craig MD [address] [place] [address] Social History Tobacco Use Types [...] ISOLATED [facility] Report Status Final [id number] [facility] 06/05/2004 12:0 3 EDT 06/05/2004 16:37 EDT Cassy Craig MD MICROBIOLOGY - GENE [facility] ORDERABLES [facility] [address] [place] [address] documented in this encounter Visit Diagnoses Not on filedocumented in this encounter Care Teams Tower Erector Relationship Specialty Start Date End Date Shannan Vieyra MD PCP - General 04/08/09 03/15/19 documented as of this encounter
--- OUTSIDE RECORDS SUMMARY | 2024-07-02 20:55 | XMS_ITS | Encounter Summary ---
Author Organization [facility] Address [address] [place] [address] Care Team Providers Care Compressor Station Engineer Chief Name Role Phone Unavailable Primary Care Provider Unavailabl e Encounter Details Date Type Department Care Team (Latest Contact Info) Description 02/21/2003 13:09 EDT Hospital Encounter [facility] - Other [address] [place] [address] Angelo Clemons MD [address] [place] [phone] Discharge Disposition: Auto Discharge Social History [...] FOR S Q LOAD Performing Organization Address [facility] Co de Phone Number [facility] [address] [place] [address] * AST (02/21/2003 13:09 EDT) AST 18 8 - 50 U/L [facility] 02/21/2003 13:0 9 EDT 02/21/2003 13:11 EDT Angelo Clemons MD CHEMISTRY & BLOOD GA S ORDERABLES Performing Organization Address [facility] Co de Phone Number [facility] [address] [place] [address] * ALT (02/21/2003 13:09 EDT) ALT 31 15 - 75 U/L [facility] 02/21/2003 13:0 9 EDT 02/21/2003 13:11 EDT Angelo Clemons MD CHEMISTRY & BLOOD GA S ORDERABLES Performing Organization Address [facility] Co de Phone Number [facility] [address] [place] [address] documented in this encounter Visit Diagnoses Not on filedocumented in this encounter
--- OUTSIDE RECORDS SUMMARY | 2024-07-02 20:55 | XMS_ITS | Encounter Summary ---
Author Organization [facility] Address [address] [place] [address] Care Team Providers Care Cylinder Inspector Name Role Phone Unavailable Primary Care Provider Unavailabl e Encounter Details Date Type Department Care Team (Latest Contact Info) Description 02/18/2003 13:36 EDT Hospital Encounter [address] [address] Shannan Vieyra MD Discharge Disposition: Auto Discharge [...]
--- OUTSIDE RECORDS SUMMARY | 2024-07-02 20:55 | XMS_ITS | Encounter Summary ---
Author Organization [facility] Address [address] [place] [address] Care Team Providers Care Events Assistant Name Role Phone Shannan Vieyra MD Primary Care Provider Unavail able Encounter Details Date Type Department Care Team (Late st Contact Info) Description 02/08/2004 Results Only [facility] - Maple conversion [address] [place] [address] Eliza Sue MD [facility], [address] [place] [address] Social History Tobacco Use Types Packs/Day Years [...] growth [facility] Report Status Final [id number] [facility] 02/08/2004 17:4 9 EDT 02/08/2004 19:32 EDT Adriana August NP MICROBIOLOGY - GENER AL ORDERABLES Performing Organization Address [place]/[facility] Co de Phone Number [facility] [address] [place] [address] * BACTERIAL CULTURE, URINE (02/08/2004 16:55 EDT) Specimen Description Urine [facility] Result Ordered in error Credit Issued Duplicate order see [facility] [id number] [facility] Report Status Final [id number] [facility] 02/08/2004 16:5 5 EDT 02/08/2004 19:20 EDT Adriana August NP MICROBIOLOGY - GENER AL ORDERABLES Performing Organization Address [place]/[facility] de Phone Number [facility] [address] [place] [address] * (ABNORMAL) URINE MICROSCOPIC ONLY (02/08/2004 16:55 [...] MD URINALYSIS ORDERAB LES Performing Organization Address [place]/[facility] Co de Phone Number [facility] [address] [place] [address] documented in this encounter Visit Diagnoses Not on filedocumented in this encounter Care Teams Events Assistant Relationship Specialty Start Date End Date Shannan Vieyra MD PCP - General 04/08/09 03/15/19 documented as of this encounter
--- OUTSIDE RECORDS SUMMARY | 2024-07-02 20:55 | XMS_ITS | Encounter Summary ---
Author Organization [facility] Address [address] [place] [address] Care Team Providers Care Claims Administrator Name Role Phone Shannan Vieyra MD Primary Care Provider Unavail able Encounter Details Date Type Department Care Team (Late st Contact Info) Description 04/20/2004 Before PRISM Converted Visit (Maple) [facility] - Maple conversion [address] [place] [address] Arvind Avitia MD Social History Tobacco Use [...] on filedocumented in this encounter Care Teams Claims Administrator Relationship Specialty Start Date End Date Shannna Vieyra MD PCP - General 04/08/09 03/15/19 documented as of this encounter
--- OUTSIDE RECORDS SUMMARY | 2024-07-02 20:55 | XMS_ITS | Encounter Summary ---
Author Organization [facility] Address [address] [place] [address] Care Team Providers Care Computational Sciences Professor Name Role Phone Unavailable Primary Care Provider Unavailabl e Encounter Details Date Type Department Care Team (Latest Contact Info) Description 05/06/2003 15:[address] [facility] Emergency Department - [facility] [address] [place], [place] [address] Emergency, Default, MD Discharge Disposition: Home or [...]
--- OUTSIDE RECORDS SUMMARY | 2024-07-02 20:55 | XMS_ITS | Encounter Summary ---
Author Organization [facility] Address [address] [place] [address] Care Team Providers Care Frame Welder Cargo Utility Trailers Name Role Phone Shannan Vieyra MD Primary Care Provider Unavail able Encounter Details Date Type Department Care Team (Late st Contact Info) Description 06/12/[address] [facility] - Maple conversion [address] [place] [address] Angelo William MD Social History Tobacco Use [...] & DNA PROBE ORDERABLES Performing Organization Address [facility] Co de Phone Number [facility] [address] [place] [address] * (ABNORMAL) HEMAGRAM AND DIFFERENTIAL (06/12/2004 7:55 [...] DNA PROBE ORDERABLES [facility] [address] [place] [address] * (ABNORMAL) HEMAGRAM AND DIFFERENTIAL (06/12/2004 7:55 [...] DNA PROBE ORDERABLES [facility] [address] [place] [address] * (ABNORMAL) HEMAGRAM AND DIFFERENTIAL (06/12/2004 7:55 EDT) Pathologist [facility] WBC 6.00 4.0 - 12.4 K/cmm [facility] [...] & DNA PROBE ORDERABLES Performing Organization Address City/State/[facility] Co de Phone Number [facility] [address] [place] [address] documented in this encounter Visit Diagnoses Not on filedocumented in this encounter Care Teams Frame Welder Cargo Utility Trailers Relationship Specialty Start Date End Date Shannan Vieyra MD PCP - General 04/08/09 03/15/19 documented as of this encounter
--- OUTSIDE RECORDS SUMMARY | 2024-07-02 20:55 | XMS_ITS | Encounter Summary ---
Author Organization [facility] Address [address] [place] [address] Care Team Providers Care Decision Unit Rn Name Role Phone Shannan Vieyra MD Primary Care Provider Unavail able Encounter Details Date Type Department Care Team (Late st Contact Info) Description 03/24/2004 Results Only [facility] Family Medicine - [place] [address] [place] [address] Leida Cerda PA-C [address] [facility] [address] [place], [place] [address] Social History Tobacco Use Types Packs/Day Years [...] Results * (ABNORMAL) TSH (03/24/2004 13:54 EDT) [facility] TSH <0.02(L) 0.35 - 5.50 uIU/ml [facility] 03/24/2004 13:5 4 EDT 03/24/2004 18:51 EDT Leida Cerda PA-C CHEMISTRY & BLOOD GAS ORDERABLES Performing Organization Address [facility] de Phone Number [facility] [address] [place] [address] * (ABNORMAL) T3, TOTAL (03/24/2004 13:54 EDT) [facility] T3, Total 294(H) 60 - 181 ng/dl [facility] 03/24/2004 13:5 4 EDT 03/24/2004 18:51 EDT Leida Cerda PA-C CHEMISTRY & BLOOD GAS ORDERABLES Performing Organization Address [facility] de Phone Number [facility] [address] [place] [address] * LIVER FUNCTION TESTS (03/24/2004 13:54 EDT) [facility] Albumin 3.5 3.4 - 4.9 g/dl [...] & BLOOD GAS ORDERABLES Performing Organization Address City/[facility]/ZIP Co de Phone Number [facility] [address] [place] [address] * (ABNORMAL) T4 FREE (03/24/2004 13:54 EDT) Free T4 2.0(H) 0.8 - 1.8 ng/dl [facility] 03/24/2004 13:5 4 EDT 03/24/2004 18:51 EDT Leida ARAUJO-Robby CHEMISTRY & BLOOD GAS ORDERABLES Performing Organization Address [facility] Co de Phone Number [facility] [address] [place] [address] * HEMAGRAM AND DIFFERENTIAL (03/24/2004 13:54 EDT) [facility] WBC 8.60 4.0 - 12.4 K/cmm [...] LAB PLT 262 141 - 320 K/cmm [facility] RDW-CV 13.5 11.7 - 14.6 % [...] DNA PROBE ORDERABLES [facility] [address] [place] [address] documented in this encounter Visit Diagnoses Not on filedocumented in this encounter Care Teams Decision Unit Rn Relationship Specialty Start Date End Date Shannan Vieyra MD PCP - General 04/08/09 03/15/19 documented as of this encounter
--- OUTSIDE RECORDS SUMMARY | 2024-07-02 20:55 | XMS_ITS | Encounter Summary ---
Author Organization [facility] Address [address] [place] [address] Care Team Providers Care Purchase Analyst Name Role Phone Unavailable Primary Care Provider Unavailabl e Encounter Details Date Type Department Care Team (Latest Contact Info) Description 03/06/2003 11:09 EDT - 03/06/2003 11:59 EDT Hospital Encounter [facility] [address] [place] [address] Angelo Clemons MD [address] [place] [phone] Discharge Disposition: Auto Discharge Social History [...]
--- OUTSIDE RECORDS SUMMARY | 2024-07-02 20:55 | XMS_ITS | Encounter Summary ---
Author Organization [facility] Address [address] [place] [address] Care Team Providers Care Nuclear Fuels Research Engineer Name Role Phone Unavailable Primary Care Provider Unavailabl e Encounter Details Date Type Department Care Team (Late st Contact Info) Description 11/13/2003 14:05 [facility] Hospital Encounter [facility] - Other [address] [place] [address] Leida Cerda PA-C [address] [place] [address] [address] [place] [address] Social History Tobacco Use Types Packs/Day Years Used Date Smoking Tobacco: Never Smokeless Tobacco: Never Alcohol Use Standard Drinks/Week Comments No 0 (1 standard drink = 0.6 oz pur e alcohol) [facility] Utilities Answer Date Recorded In the past 12 months has [facility] electric, gas, oil, or water company [...] place to sleep or slept in a group home (including now)? No 10/28/2023 Interpersonal Safety [...]
--- OUTSIDE RECORDS SUMMARY | 2024-07-02 20:55 | XMS_ITS | Encounter Summary ---
Author Organization [facility] Address [address] [place] [address] Care Team Providers Care Title Coordinator Name Role Phone Shannan Vieyra MD Primary Care Provider Unavail able Encounter Details Date Type Department Care Team (Late st Contact Info) Description 04/19/2004 Office Visit [facility] - Maple conversion [address] [place] [address] Christopher Zavala MD [address] [facility], [address] [place] [phone] Social History Tobacco Use Types Packs/Day Years Used Date Smoking Tobacco: Never Assessed Sex and Gender Information Value Date Recorded Sex Assigned at Not on file Gender Identity Not on file Sexual Orientation Not on file documented as of this encounter Progress Notes * Christopher Zavala MD - 12/12/2009 1127 EST Emergency [...] Old medical records reviewed. Disposition: Admitted to [facility]. CLINICAL IMPRESSION Pyelonephritis. Christopher Zavala MD (Electronically [...] oral Alert. No acute distress. --22:58 Vivian aRmirez R.N. Medications (ATENOLOL, TAPAZOLE, BIRTHCONTROL). --22:58 Vivian [...] on filedocumented in this encounter Care Teams Title Coordinator Relationship Specialty Start Date End Date Shannan Vieyra MD PCP - General 04/08/09 03/15/19 documented as of this encounter
--- OUTSIDE RECORDS SUMMARY | 2024-07-02 20:55 | XMS_ITS | Encounter Summary ---
Author Organization [facility] Address [address] [place] [address] Care Team Providers Care Trade Recruiter Name Role Phone Shannan Vieyra MD Primary Care Provider Unavail able Encounter Details Date Type Department Care Team (Late st Contact Info) Description 06/06/2004 Results Only [facility] - Maple conversion [address] [place] [address] Emergency, MD Keli Social History Tobacco Use [...] MIRABILIS [facility] Report Status Final [id number] [facility] 06/06/2004 22:4 5 EDT [...] GENE RAL ORDERABLES [facility] [address] [place] [address] * (ABNORMAL) UA WITH MICROSCOPIC (06/06/2004 22:45 EDT) Color, UA Yellow [facility] Clarity, UA Clear [facility] Glucose, UA Norm NORM [facility] Bilirubin, UA Neg NEG [facility] Ketones, UA Large(A) NEG [facility] Specific [place], Urine 1.020 1.005 - 1.02 [facility] [...] Emergency URINALYSIS ORDERABL ES Performing Organization Address [facility] de Phone Number [facility] [address] [place] [address] * BACTERIAL CULTURE/SMEAR, FLUID (06/06/2004 22:22 EDT) Specimen Description Spinal Fluid [facility] Gram Smear Result Polys present Mononuclear cells present No bacteria seen [facility] Result No growth [facility] Report Status Final [id number] [facility] 06/06/2004 22:2 2 EDT 06/06/2004 22:32 EDT Default Emergency MICROBIOLOGY - GENE RAL ORDERABLES Performing Organization Address [facility] de Phone Number [facility] [address] [place] [address] * (ABNORMAL) FLUID DIFFERENTIAL (06/06/2004 22:10 EDT) Lymphocyte, CSF 92(H) 40 - 80 % [facility] [place]/Macro, CSF 4(L) 15 - 45 % [facility] Eosinophil, CSF 3 % [facility] Basophil, CSF 1 % [facility] 06/06/2004 22:1 0 EDT 06/06/2004 22:11 EDT Default Emergency GEN LAB UNIT COLLEC T ORDERABLES Performing Organization Address [facility] de Phone Number [facility] [address] [place] [address] * (ABNORMAL) TOTAL PROTEIN, CSF (06/06/2004 22:10 EDT) Total Protein, CSF 91(H) 15 - 60 mg/dl [facility] 06/06/2004 22:1 0 EDT 06/06/2004 22:11 EDT Default Emergency GEN LAB UNIT COLLEC T ORDERABLES Performing Organization [facility] Co de Phone Number [facility] [address] [place] [address] * GLUCOSE CSF (06/06/2004 22:10 EDT) Glucose, CSF 40 mg/dl [facility] Comment: Ref Range=60-80% of plasma glucose result 06/06/2004 22:1 0 EDT 06/06/2004 22:11 EDT Default Emergency MD GEN LAB UNIT COLLE T ORDERABLES Performing Organization Address [facility] Co de Phone Number [facility] [address] [place] [address] * (ABNORMAL) CELL COUNT,CSF (06/06/2004 22:10 EDT) Pathologist [facility] RBC, CSF 3 /cmm [facility] Nucleated Cells 528(H) 0 - 5 /cmm [facility] Total Vol. 4.0 ml [facility] Tube Cntd. 4 [facility] Tube Vol. 1.0 ml [facility] CSF Comment Clear and Colorless [facility] 06/06/2004 22:1 0 EDT 06/06/2004 22:11 EDT Default Emergency MD GEN LAB UNIT [facility] ORDERABLES Performing Organization Address [facility] de Phone Number [facility] [address] [place] [address] * SED. RATE:WESTERGREN (06/06/2004 20:27 EDT) Pathologist [facility] Sed. Rate Westergren 5 0 - 20 mm/hr [facility] 06/06/2004 20:2 7 EDT 06/06/2004 20:38 EDT Default Emergency MD HEMATOLOGY & PF4 OR DERABLES Performing Organization Address [facility] Co de Phone Number [facility] [address] [place] [address] * GLUCOSE, SERUM (06/06/2004 20:27 EDT) Glucose, Serum 90 70 - 110 mg/dl [facility] 06/06/2004 20:2 7 EDT 06/06/2004 20:38 EDT Default Emergency MD CHEMISTRY & BLOOD G ORDERABLES Performing Organization Address [facility] de Phone Number [facility] [address] [place] [address] * (ABNORMAL) ELECTROLYTES (06/06/2004 20:27 EDT) Pathologist [facility] Sodium 137 136 - 145 mEq/L [facility] Potassium 4.1 3.5 - 5.0 mEq/L [facility] Chloride 104 96 - 110 mEq/L [facility] CO2 21(L) 24 - 32 mEq/L [facility] 06/06/2004 20:2 7 EDT 06/06/2004 20:38 EDT Default Emergency MD CHEMISTRY & BLOOD G ORDERABLES Performing Organization Address [facility] de Phone Number [facility] [address] [place] [address] * (ABNORMAL) LIVER FUNCTION TESTS (06/06/2004 20:27 EDT) Pathologist [facility] Albumin 4.6 3.4 - 4.9 g/dl RUBIDERRICK [...] & BLOOD G ORDERABLES Performing Organization Address [facility] de Phone Number [facility] [address] [place] [address] * LIPASE (06/06/2004 20:27 EDT) Pathologist [facility] Lipase 89 0 - 250 U/L [facility] 06/06/2004 20:2 7 EDT 06/06/2004 20:38 EDT Default Emergency MD CHEMISTRY & BLOOD G ORDERABLES Performing Organization Address [facility] de Phone Number [facility] [address] [place] [address] * C-REACTIVE PROTEIN (06/06/2004 20:27 EDT) Pathologist [facility] C-Reactive Protein <0.7 <1.0 mg/dl [facility] 06/06/2004 20:2 7 EDT 06/06/2004 20:38 EDT Default Emergency MD CHEMISTRY & BLOOD G ORDERABLES Performing Organization Address [facility] de Phone Number [facility] [address] [place] [address] * CREATININE (06/06/2004 20:27 EDT) Pathologist [facility] Creatinine 0.8 0.7 - 1.5 mg/dl [facility] 06/06/2004 20:2 7 EDT 06/06/2004 20:38 EDT Default Emergency HISTORICAL LAB FOR SQ LOAD Performing Organization Address [facility] de Phone Number [facility] [address] [place] [address] * (ABNORMAL) HEMAGRAM AND DIFFERENTIAL (06/06/2004 20:27 EDT) Pathologist [facility] WBC 5.35 4.0 - 12.4 K/cmm [facility] [...] DNA PROB E ORDERABLES Performing Organization Address [facility] Co de Phone Number [facility] [address] [place] [address] * BUN (06/06/2004 20:27 EDT) BUN 10 10 - 26 mg/dl [facility] 06/06/2004 20:2 7 EDT 06/06/2004 20:38 EDT Default Emergency CHEMISTRY & BLOOD G ORDERABLES [facility] [address] [place] [address] documented in this encounter Visit Diagnoses Not on filedocumented in this encounter Care Teams Trade Recruiter Relationship Specialty Start Date End Date Shannan Vieyra MD PCP - General 04/08/09 03/15/19 documented as of this encounter
--- OUTSIDE RECORDS SUMMARY | 2024-07-02 20:55 | XMS_ITS | Encounter Summary ---
Author Organization [facility] Address [address] [place] [address] Care Team Providers Care Sports Nutritionist Name Role Phone Unavailable Primary Care Provider Unavailabl e Encounter Details Date Type Department Care Team (Latest Contact Info) Description 03/07/2003 8:25 EDT - 03/07/2003 11:59 EDT Hospital Encounter [facility] [place] [address] [place] [address] Angelo Clemons MD [address] [place] [phone] Discharge Disposition: Auto Discharge Social History [...]
--- OUTSIDE RECORDS SUMMARY | 2024-07-02 20:55 | XMS_ITS | Encounter Summary ---
Author Organization [facility] Address [address] [place] [address] Care Team Providers Care Psychology Professor Name Role Phone Unavailable Primary Care Provider Unavailabl e Encounter Details Date Type Department Care Team (Late st Contact Info) Description 04/20/2004 1:59 EDT - 04/20/2004 11:59 EDT Hospital Encounter [facility] [address] [place] [address] Shannan Vieyra MD Bak, Christopher Dockery MD [address] [facility], [address] [place] [address] Discharge Disposition: Home or Self [...] GA S ORDERABLES [facility] [address] [place] [address] * CREATININE (04/20/2004 7:12 EDT) Creatinine 0.7 0.7 - 1.5 mg/dl [facility] 04/20/2004 7:12 EDT 04/20/2004 7:43 EDT Shannan Vieyra MD HISTORICAL LAB FOR S Q LOAD [facility] [address] [place] [address] * (ABNORMAL) HEMAGRAM AND DIFFERENTIAL (04/20/2004 7:12 [...] PLT 162 141 - 320 K/cmm [facility] RDW-CV 13.4 11.7 - 14.6 % [...] & DNA PROBE ORDERABLES Performing Organization Address [facility] Co de Phone Number [facility] [address] [place] [address] * (ABNORMAL) BUN (04/20/2004 7:12 EDT) BUN 4(L) 10 - 26 mg/dl [facility] 04/20/2004 7:12 EDT 04/20/2004 7:43 EDT Shannan Vieyra MD CHEMISTRY & BLOOD GA S ORDERABLES Performing Organization Address [facility] de Phone Number [facility] [address] [place] [address] * BACTERIAL CULTURE, URINE (04/20/2004 6:30 EDT) Specimen Description Urine [facility] Result Greater than 100,000 CFU/ml LACTOBACILL US SPECIES [facility] Report Status Final [id number] [facility] 04/20/2004 6:30 EDT 04/20/2004 7:54 EDT Shannan Vieyra MD MICROBIOLOGY - GENER AL ORDERABLES Performing Organization Address [facility] Co de Phone Number [facility] [address] [place] [address] * (ABNORMAL) ELECTROLYTES (04/19/2004 23:45 EDT) Sodium 138 136 - 145 mEq/L [facility] Potassium 3.4(L) 3.5 - 5.0 mEq/L [facility] Chloride 103 96 - 110 mEq/L [facility] CO2 22(L) 24 - 32 mEq/L [facility] 04/19/2004 23:4 5 EDT 04/19/2004 23:45 EDT Default Emergency MD CHEMISTRY & BLOOD G ORDERABLES Performing Organization Address [facility] de Phone Number [facility] [address] [place] [address] * (ABNORMAL) CREATININE (04/19/2004 23:45 EDT) Creatinine 0.6(L) 0.7 - 1.5 mg/dl [facility] 04/19/2004 23:4 5 EDT 04/19/2004 23:45 EDT Default Emergency HISTORICAL LAB FOR SQ LOAD Performing Organization Address [facility] de Phone Number [facility] [address] [place] [address] * (ABNORMAL) HEMAGRAM AND DIFFERENTIAL (04/19/2004 23:45 [...] DNA PROB E ORDERABLES Performing Organization Address [facility] Co de Phone Number [facility] [address] [place] [address] * (ABNORMAL) BUN (04/19/2004 23:45 EDT) BUN 6(L) 10 - 26 mg/dl [facility] 04/19/2004 23:4 5 EDT 04/19/2004 23:45 EDT Default Emergency CHEMISTRY & BLOOD G ORDERABLES Performing Organization Address [facility] Co de Phone Number [facility] [address] [place] [address] * BACTERIAL CULTURE, BLOOD (04/19/2004 5:15 EDT) Specimen Description Blood Right Arm [facility] Result No growth [facility] Report Status Final [id number] [facility] 04/19/2004 5:15 EDT 04/19/2004 5:18 EDT Default Emergency MICROBIOLOGY - GENE RAL ORDERABLES Performing Organization Address [facility] Co de Phone Number [facility] [address] [place] [address] * GLUCOSE, SERUM (04/19/2004 5:15 EDT) Glucose, Serum 94 70 - 110 mg/dl [facility] 04/19/2004 5:15 EDT 04/19/2004 5:15 EDT Default Emergency MD CHEMISTRY & BLOOD G ORDERABLES Performing Organization Address [facility] de Phone Number [facility] [address] [place] [address] * (ABNORMAL) ELECTROLYTES (04/19/2004 5:15 EDT) Sodium 138 136 - 145 mEq/L [facility] Potassium 4.0 3.5 - 5.0 mEq/L [facility] Chloride 107 96 - 110 mEq/L [facility] CO2 22(L) 24 - 32 mEq/L [facility] 04/19/2004 5:15 EDT 04/19/2004 5:15 EDT Default Emergency MD CHEMISTRY & BLOOD G ORDERABLES Performing Organization Address [facility] Phone Number [facility] [address] [place] [address] * (ABNORMAL) LIVER FUNCTION TESTS (04/19/2004 5:15 [...] & BLOOD G ORDERABLES Performing Organization Address City/[facility]/ZIP Co de Phone Number [facility] [address] [place] [address] * LIPASE (04/19/2004 5:15 EDT) Lipase 51 0 - 250 U/L [facility] 04/19/2004 5:15 EDT 04/19/2004 5:15 EDT Default Emergency MD CHEMISTRY & BLOOD G ORDERABLES Performing Organization Address [facility] Co de Phone Number [facility] [address] [place] [address] * CREATININE (04/19/2004 5:15 EDT) Pathologist [facility] Creatinine 0.7 0.7 - 1.5 mg/dl [facility] 04/19/2004 5:15 EDT 04/19/2004 5:15 EDT Default Emergency HISTORICAL LAB FOR SQ LOAD Performing Organization Address [facility] Co de Phone Number [facility] [address] [place] [address] * (ABNORMAL) HEMAGRAM AND DIFFERENTIAL (04/19/2004 5:15 EDT) Pathologist [facility] WBC 11.24 4.0 - 12.4 K/cmm [facility] RBC 4.74 3.86 - 5.04 M/cmm [facility] Hemoglobin 13.0 11.6 - 15.2 gm/dl [facility] HCT 38.1 34.9 - 44.4 % [facility] [...] DNA PROB E ORDERABLES Performing Organization Address City/[facility] Co de Phone Number [facility] [address] [place] [address] * (ABNORMAL) BUN (04/19/2004 5:15 EDT) BUN 8(L) 10 - 26 mg/dl [facility] 04/19/2004 5:15 EDT 04/19/2004 5:15 EDT Default Emergency MD CHEMISTRY & BLOOD G ORDERABLES Performing Organization Address [facility] Co de Phone Number [facility] [address] [place] [address] * BACTERIAL CULTURE, BLOOD (04/19/2004 5:10 EDT) Specimen Description Blood Left Arm [facility] Result ESCHERICHIA COLI Isolated in one bottle. First detected in less than 24 hours. [facility] Report Status Final [id number] [facility] 04/19/2004 5:10 EDT 04/19/2004 [...] <=4 Susceptible Susceptible Default Emergency MICROBIOLOGY - [facility] ORDERABLES [facility] [address] [place] [address] * BACTERIAL CULTURE, URINE (04/19/2004 5:05 EDT) Specimen Description Urine [facility] Result Greater than 100,000 CFU/ml ESCHERICHIA COLI [facility] Report Status Final [id number] [facility] 04/19/2004 5:05 EDT 04/19/2004 [...] Susceptible Susceptible Default Emergency MD MICROBIOLOGY - [facility] ORDERABLES [facility] [address] [place] [address] documented in this encounter Visit Diagnoses Not on filedocumented in this encounter
--- OUTSIDE RECORDS SUMMARY | 2024-07-02 20:55 | XMS_ITS | Encounter Summary ---
Author Organization [facility] Address [address] [place] [address] Care Team Providers Care Merit System Director Name Role Phone Shannan Vieyra MD Primary Care Provider Leida Robledo PA-C Primary Care Provi melvin Comfort Zelaya NP Primary Care Provider [phone] Encounter Details Date Type Department Care Team (Late st Contact Info) Description 06/10/2004 Before PRISM Converted Visit (Maple) [facility] - Maple conversion [address] [place] [address] Paradise Padilla MD [address] [place] [address] Social History Tobacco Use Types Packs/Day Years [...] growth [facility] Report Status Final [id number] [facility] 06/10/2004 20:3 0 EDT 06/10/2004 20:34 EDT Default Emergency MICROBIOLOGY - GENE RAL ORDERABLES [facility] [address] [place] [address] * HOLD (06/10/2004 20:30 EDT) Hold Fluid [facility] 06/10/2004 20:3 0 EDT 06/10/2004 20:31 EDT Default Emergency MD CHEMISTRY & BLOOD G ORDERABLES [facility] [address] [place] [address] * (ABNORMAL) FLUID DIFFERENTIAL (06/10/2004 20:30 EDT) Lymphocyte, CSF 72 40 - 80 % [facility] [place]/Macro, CSF 5(L) 15 - 45 % [facility] Eosinophil, CSF 23 % [facility] 06/10/2004 20:3 0 EDT 06/10/2004 20:31 EDT Default Emergency MD GEN LAB UNIT COLLE T ORDERABLES Performing Organization Address [facility] Co de Phone Number [facility] [address] [place] [address] * (ABNORMAL) TOTAL PROTEIN, CSF (06/10/2004 20:30 EDT) Total Protein, CSF 108(H) 15 - 60 mg/dl [facility] 06/10/2004 20:3 0 EDT 06/10/2004 20:31 EDT Default Emergency MD GEN LAB UNIT [facility] ORDERABLES Performing Organization Address [facility] de Phone Number [facility] [address] [place] [address] * GLUCOSE CSF (06/10/2004 20:30 EDT) Glucose, CSF 38 mg/dl [facility] Comment: Ref Range=60-80% of plasma glucose result 06/10/2004 20:3 0 EDT 06/10/2004 20:31 EDT Default Emergency MD GEN LAB UNIT [facility] T ORDERABLES Performing Organization Address [facility] de Phone Number [facility] [address] [place] [address] * (ABNORMAL) CELL COUNT,CSF (06/10/2004 20:30 EDT) [...] UNIT COLLEC T ORDERABLES Performing Organization Address [facility] Co de Phone Number [facility] [address] [place] [address] * BACTERIAL CULTURE, BLOOD (06/10/2004 19:00 EDT) Specimen Description Blood Left Forearm Pediatric bottle received [facility] Result Volume of blood collected may not be adequate for detection of bacteremia/se pticemia. No growth [facility] Report Status Final [id number] [facility] 06/10/2004 19:0 0 EDT 06/10/2004 19:13 EDT Default Emergency MD MICROBIOLOGY - GENE RAL ORDERABLES Performing Organization Address [facility] de Phone Number [facility] [address] [place] [address] * GLUCOSE, SERUM (06/10/2004 18:20 EDT) Glucose, Serum 99 70 - 110 mg/dl [facility] 06/10/2004 18:2 0 EDT 06/10/2004 18:50 EDT Default Emergency MD CHEMISTRY & BLOOD G ORDERABLES Performing Organization Address [facility] Co de Phone Number [facility] [address] [place] [address] * ELECTROLYTES (06/10/2004 18:20 EDT) Sodium 140 136 - 145 mEq/L [facility] Potassium 3.9 3.5 - 5.0 mEq/L [facility] Chloride 104 96 - 110 mEq/L [facility] CO2 25 24 - 32 mEq/L [facility] 06/10/2004 18:2 0 EDT 06/10/2004 18:50 EDT Default Emergency MD CHEMISTRY & BLOOD G ORDERABLES Performing Organization Address [facility] Co de Phone Number [facility] [address] [place] [address] * HOLD (06/10/2004 18:20 EDT) Hold Sample for coagulation will be discarded after 4 hours [facility] 06/10/2004 18:2 0 EDT 06/10/2004 18:50 EDT Default Emergency MD CHEMISTRY & BLOOD G ORDERABLES Performing Organization Address [facility] Co de Phone Number [facility] [address] [place] [address] * CREATININE (06/10/2004 18:20 EDT) Creatinine 0.8 0.7 - 1.5 mg/dl [facility] 06/10/2004 18:2 0 EDT 06/10/2004 18:50 EDT Default Emergency HISTORICAL LAB FOR SQ LOAD Performing Organization Address [facility] de Phone Number [facility] [address] [place] [id number] * (ABNORMAL) HEMAGRAM AND DIFFERENTIAL (06/10/2004 18:20 [...] DNA PROB E ORDERABLES Performing Organization Address [facility] de Phone Number [facility] [address] [place] [address] * BUN (06/10/2004 18:20 EDT) BUN 11 10 - 26 mg/dl [facility] 06/10/2004 18:2 0 EDT 06/10/2004 18:50 EDT Default Emergency CHEMISTRY & BLOOD G ORDERABLES Performing Organization Address [facility] Co de Phone Number [facility] [address] [place] [address] documented in this encounter Visit Diagnoses Not on filedocumented in this encounter Care Teams Merit System Director Relationship Specialty Start Date End Date Shannan Vieyra MD PCP - General 04/08/09 03/15/19 Leida Cerda PA-C PCP - General 03/16/19 03/07/22 Comfort Zelaya NP [address] [place] [phone] PCP - General Family Medicine - Primary Care 03/08/22 documented as of this encounter
--- OUTSIDE RECORDS SUMMARY | 2024-07-02 20:55 | XMS_ITS | Encounter Summary ---
Author Organization [facility] Address [address] [place] [address] Care Team Providers Care Precision Honing Machine Operator Name Role Phone Shannan Vieyar MD Primary Care Provider Unavail able Encounter Details Date Type Department Care Team (Late st Contact Info) Description 11/13/2003 Results Only [facility] - [place] [id number] [place] [address] Leida Cerda PA-C [address] [facility] [address] [place], [place] [address] Social History Tobacco Use Types Packs/Day Years [...] SPECIES [facility] Report Status Final [id number] [facility] 11/13/2003 12:1 8 EST 11/13/2003 16:52 EST Narrative Organism Antibiotic Method Susceptibility Greater than 100,000 cfu/mlenterococcus species Ampicillin SUSCEPTIBILITY (SAÚL) 0.5 Susceptible Susceptible Greater than 100,000 cfu/mlenterococcus species Nitrofurantoin SUSCEPTIBILITY (SAÚL) <=32 Susceptible Susceptible Greater than 100,000 cfu/mlenterococcus species Ciprofloxacin SUSCEPTIBILITY (SAÚL) 1 Susceptible Susceptible Leida Cerda PA-C MICROBIOLOG Y - GENERAL ORDERABLES Performing Organization Address [facility] Co de Phone Number [facility] [address] [place] [address] * PHARYNGITIS CULTURE (11/13/2003 12:18 EST) Specimen Description Throat [facility] Result NO GROUP A BETA STREPTOCOCCI ISOLATED [facility] Report Status Final [id number] [facility] 11/13/2003 12:1 8 EST 11/13/2003 16:41 EST Leida Cerda PA-C MICROBIOLOG Y - GENERAL ORDERABLES Performing Organization Address [facility] de Phone Number [facility] [address] [place] [address] * (ABNORMAL) HEMAGRAM AND DIFFERENTIAL (11/13/2003 12:18 [...] DNA PROBE ORDERABLES [facility] [address] [place] [address] documented in this encounter Visit Diagnoses Not on filedocumented in this encounter Care Teams Precision Honing Machine Operator Relationship Specialty Start Date End Date Shannan Vieyra MD PCP - General 04/08/09 03/15/19 documented as of this encounter
--- OUTSIDE RECORDS SUMMARY | 2024-07-02 20:55 | XMS_ITS | Encounter Summary ---
Author Organization [facility] Address [address] [place] [address] Care Team Providers Care Delivery Truck Driver Name Role Phone Shannan Vieyra MD Primary Care Provider Unavail Leida Jackson PA-C Primary Care Provi melvin Comfort Zelaya NP Primary Care Provider [phone] Encounter Details Date Type Department Care Team (Late st Contact Info) Description 06/10/2004 Before PRISM Converted Visit (Maple) [facility] - Maple conversion [address] [place] [address] Paradise Padilla MD [address] [place] [address] Social History Tobacco Use Types Packs/Day Years Used Date Smoking Tobacco: Never Assessed Sex and Gender Information Value Date Recorded Sex Assigned at Not on file Gender Identity Not on file Sexual Orientation Not on file documented as of this encounter Plan of Treatment Not on file documented as of this encounter Visit Diagnoses Not on filedocumented in this encounter Care Teams Delivery Truck Driver Relationship Specialty Start Date End Date Shannan Vieyra MD PCP - General 04/08/09 03/15/19 Leida Cerda PA-C PCP - General 03/16/19 03/07/22 Comfort Zelaya NP [address] [place] [address] PCP - General Family Medicine - Primary Care 03/08/22 documented as of this encounter
--- OUTSIDE RECORDS SUMMARY | 2024-07-02 20:55 | XMS_ITS | Encounter Summary ---
Author Organization [facility] Address [address] [place] [address] Care Team Providers Care Red Cross Worker Name Role Phone Shannan Vieyra MD Primary Care Provider Unavail able Encounter Details Date Type Department Care Team (Late st Contact Info) Description 06/10/2004 Before PRISM Converted Visit (Maple) [facility] - Maple conversion [address] [place] [address] Paradise Padilla MD [address] [place] [id number] Social History Tobacco Use Types Packs/Day Years Used Date Smoking Tobacco: Never Assessed Sex and Gender Information Value Date Recorded Sex Assigned at Not on file Gender Identity Not on file Sexual Orientation Not on file documented as of this encounter Plan of Treatment Not on file documented as of this encounter Visit Diagnoses Not on filedocumented in this encounter Care Teams Red Cross Worker Relationship Specialty Start Date End Date Shannan Vieyra MD PCP - General 04/08/09 03/15/19 documented as of this encounter
--- OUTSIDE RECORDS SUMMARY | 2024-07-02 20:55 | XMS_ITS | Encounter Summary ---
Author Organization [facility] Address [address] [place] [address] Care Team Providers Care Senior Formulation Scientist Name Role Phone Shannan Vieyra MD Primary Care Provider Unavail able Encounter Details Date Type Department Care Team (Late st Contact Info) Description 09/16/[address] [facility] - Maple conversion [address] [place] [address] Germain Mason MD [address] [place] [address], [place] [phone] Social History Tobacco Use Types Packs/Day Years [...] BLOOD GA S ORDERABLES Performing Organization Address City/[facility] Co de Phone Number [facility] [address] [place] [address] * (ABNORMAL) T3, TOTAL (09/16/2003 15:59 EST) T3, Total 551(H) 60 - 181 ng/dl [facility] 09/16/2003 15:5 9 EST 09/16/2003 16:01 EST Germain Mason MD CHEMISTRY & BLOOD GA S ORDERABLES Performing Organization Address [facility] Co de Phone Number [facility] [address] [place] [address] * (ABNORMAL) T4 FREE (09/16/2003 15:59 EST) Free T4 3.9(H) 0.8 - 1.8 ng/dl [facility] 09/16/2003 15:5 9 EST 09/16/2003 16:01 EST Germain Mason MD CHEMISTRY & BLOOD GA S ORDERABLES Performing Organization Address [facility] de Phone Number [facility] [address] [place] [address] documented in this encounter Visit Diagnoses Not on filedocumented in this encounter Care Teams Senior Formulation Scientist Relationship Specialty Start Date End Date Shannan Vieyra MD PCP - General 04/08/09 03/15/19 documented as of this encounter
--- OUTSIDE RECORDS SUMMARY | 2024-07-02 20:55 | XMS_ITS | Encounter Summary ---
Author Organization [facility] Address [address] [place] [address] Care Team Providers Care Cnc Operator Machinist Name Role Phone Shannan Vieyra MD Primary Care Provider Unavail able Encounter Details Date Type Department Care Team (Late st Contact Info) Description 06/10/2004 Office Visit [facility] - Maple conversion [address] [place] [address] Miguel Negron MD [address] [place] [address], Level [address] [place] [phone] Social History Tobacco Use Types Packs/Day Years [...] Old medical records reviewed. Disposition: Admitted to [facility]. Condition: stable. CLINICAL IMPRESSION Fever. Headache. [...] and accompanied by mother. Historian: patient.--17:28 Tracy Raushc R.N. Interventions To room. Via wheelchair. --17:34 [...] RR: 16 Temp: 38.5 tympanic --19:25 Irina Hernández R.N. ACETAMINOPHEN 975 mg PO. --19:52 Irina [...] flushed thoroughly pre- and post-medication administration. --00:55 rIina Hernández R.N. late entry - 2217 (pt recieved 2 gm ceftriaxone not one). --01:19 rIina Hernández R.N. IV / I&O Flowsheet IV [...] mL absorbed). IV fluid started- #2 bag [id number] mL. Rate - 250 mL / hr. --01:16 Irina Hernández R.N. OUTPUT: x1 pt states large amt urine --01:16 Irina Hernández R.N. INTAKE: 1000 mL IV --01:16 Irina Hernández R.N. DISPOSITION / DISCHARGE Admitted to medicine. Transported via stretcher by [facility] with IV. Report was given (B4 staff). --01:20 Irina Hernández R.N. Admitted ([id number]). Transported via stretcher. --01:36 Ector Ferguson R.N., E.M.TAnay CastañedaM.TEctor Lozano.M.TEctor Owusu R.N. Locked/Released at 06/11/2004 4:29 by Nara Malin R.N. documented in this encounter Plan of Treatment Not on file documented as of this encounter Visit Diagnoses Not on filedocumented in this encounter Care Teams Cnc Operator Machinist Relationship Specialty Start Date End Date Shannan Vieyra MD PCP - General 04/08/09 03/15/19 documented as of this encounter
--- OUTSIDE RECORDS SUMMARY | 2024-07-02 20:55 | XMS_ITS | Encounter Summary ---
Author Organization [facility] Address [address] [place] [address] Care Team Providers Care Ranch Rider Name Role Phone Shannan Vieyra MD Primary Care Provider Unavail able Encounter Details Date Type Department Care Team (Late st Contact Info) Description 02/19/2003 Results Only [facility] Family Medicine - [address] [id number] Leida Cerda PA-C [address] [place] [address] [address] [place], [place] [id number] Social History Tobacco Use Types Packs/Day Years [...] & BLOOD GAS ORDERABLES Performing Organization Address City/[facility] Co de Phone Number [facility] [address] [place] [address] * (ABNORMAL) T4 FREE (02/19/2003 10:14 EDT) Free T4 2.9(H) 0.8 - 1.8 ng/dl [facility] 02/19/2003 10:1 4 EDT 02/19/2003 16:51 EDT Leida Cerda PA-C CHEMISTRY & BLOOD GAS ORDERABLES Performing Organization Address [facility] de Phone Number [facility] [employer] [facility] [address] [place] [address] documented in this encounter Visit Diagnoses Not on filedocumented in this encounter Care Teams Ranch Rider Relationship Specialty Start Date End Date Shannan Vieyra MD PCP - General 04/08/09 03/15/19 documented as of this encounter
--- OUTSIDE RECORDS SUMMARY | 2024-07-02 20:55 | XMS_ITS | Encounter Summary ---
Author Organization [facility] Address [address] [place] [address] Care Team Providers Care Metal Control Worker Name Role Phone Unavailable Primary Care Provider Unavailabl e Encounter Details Date Type Department Care Team (Late st Contact Info) Description 03/24/2004 14:16 EDT Hospital Encounter [facility] - Other [address] [place] [address] Leida Cerda PA-C [address] [place] [id number] Social History Tobacco Use Types Packs/Day Years Used Date Smoking Tobacco: Never Smokeless Tobacco: Never Alcohol Use Standard Drinks/Week Comments No 0 (1 standard drink = 0.6 oz pur e alcohol) [facility] Utilities Answer Date Recorded In the past 12 months has [employer], gas, oil, or water company threatened [...] MADHU DORIS R ? Accession #: ? [id number] : ? 1980 (Age: 24) ??F ?Collect [...] PA-C PATHOLOGY O RDERABLES Performing Organization Address City/State/[facility] Co de Phone Number [facility] [address] [place] [address] documented in this encounter Visit Diagnoses Not on filedocumented in this encounter
--- OUTSIDE RECORDS SUMMARY | 2024-07-02 20:55 | XMS_ITS | Encounter Summary ---
Author Organization [facility] Address [address] [place] [address] Care Team Providers Care Brake Coupler Dinkey Name Role Phone Unavailable Primary Care Provider Unavailabl e Encounter Details Date Type Department Care Team (Latest Contact Info) Description 06/06/2004 19:55 EDT - 06/07/2004 11:59 EDT Hospital Encounter [facility] [place] [address] Emergency, Default, MD Discharge Disposition: Home or [...] upper quadrant ultrasound of 06/06/04. FINDINGS: Preliminary demand planning analyst KUB shows an unremarkable bowel-gas pattern. The [...] upper quadrant ultrasound of 06/06/04. FINDINGS: Preliminary demand planning analyst KUB shows an unremarkable bowel-gas pattern. The [...] moderate postvoid residual. / Angelo William MD [facility] DIAGNOSTIC IMAGI NG ORDERABLES * CHEST PA AND LATERAL (06/06/2004 23:57 EDT) Anatomical Region Laterality Modality Other 06/06/2004 23:5 7 EDT Impressions 06/09/2009 16:10 EDT IMPRESSION: Negative chest. /[facility] Narrative 06/09/2009 16:10 EDT FEVER INFILTRATE CHEST 2 VIEWS PA and lateral views of the chest are essentially normal. There is no evidence of pneumonia. Procedure Note Angelo Dwyer MD - 06/09/2009 FEVER INFILTRATE CHEST 2 VIEWS PA and lateral views of the chest are essentially normal. There is no evidence of pneumonia. IMPRESSION IMPRESSION: Negative chest. /[facility] Mitzi ARAUJO [facility] DIAGNOSTIC IMAGI NG ORDERABLES * RAD US [...]
--- OUTSIDE RECORDS SUMMARY | 2024-07-02 20:55 | XMS_ITS | Encounter Summary ---
Author Organization [facility] Address [address] [place] [address] Care Team Providers Care Portfolio Architect Name Role Phone Unavailable Primary Care Provider Unavailabl e Encounter Details Date Type Department Care Team (Late st Contact Info) Description 04/16/2003 11:10 EDT Hospital Encounter [facility] [address] [place] [address] Pete Richey MD Social History Tobacco Use Types Packs/Day Years Used Date Smoking Tobacco: Never Smokeless Tobacco: Never Alcohol Use Standard Drinks/Week Comments No 0 (1 standard drink = 0.6 oz pur e alcohol) [facility] Utilities Answer Date Recorded In the past 12 months has [employer] electric, gas, oil, or water company threatened [...] place to sleep or slept in a nursing home (including now)? No 10/28/2023 Interpersonal Safety [...]
--- OUTSIDE RECORDS SUMMARY | 2024-07-02 20:55 | XMS_ITS | Encounter Summary ---
Author Organization [facility] Address [address] [place] [address] Care Team Providers Care Billboard Mechanic Name Role Phone Shannan Vieyra MD Primary Care Provider Unavail Leida Jackson PA-C Primary Care Provi melvin Comfort Zelaya NP Primary Care Provider [phone] Encounter Details Date Type Department Care Team (Late st Contact Info) Description 06/10/2004 Before PRISM Converted Visit (Maple) [facility] - Maple conversion [address] [place] [address] Paradise Padilla MD [address] [place] [address] Social History Tobacco Use Types Packs/Day Years Used Date Smoking Tobacco: Never Assessed Sex and Gender Information Value Date Recorded Sex Assigned at Not on file Gender Identity Not on file Sexual Orientation Not on file documented as of this encounter Plan of Treatment Not on file documented as of this encounter Visit Diagnoses Not on filedocumented in this encounter Care Teams Billboard Mechanic Relationship Specialty Start Date End Date Shannan Vieyra MD PCP - General 04/08/09 03/15/19 Leida Cerda PA-C PCP - General 03/16/19 03/07/22 Comfort Zelaya NP [address] [place] [address] PCP - General Family Medicine - Primary Care 03/08/22 documented as of this encounter
--- OUTSIDE RECORDS SUMMARY | 2024-07-02 20:56 | XMS_ITS | Encounter Summary ---
Author Organization [facility] Address [address] [place] [address] Care Team Providers Care Application Design Engineer Name Role Phone Unavailable Primary Care Provider Unavailabl e Encounter Details Date Type Department Care Team (Latest Contact Info) Description 05/28/2000 14:33 EDT Hospital Encounter [facility] Emergency Department - [facility] [address] [place], [place] [address] Emergency, Default, MD Discharge Disposition: Home or [...] growth [facility] Report Status Final [id number] [facility] 05/28/2000 15:1 6 EDT 05/28/2000 15:16 EDT Default Emergency MICROBIOLOGY - GENE RAL ORDERABLES Performing Organization Address [facility] de Phone Number [facility] [address] [place] [address] * ELECTROLYTES (05/28/2000 14:47 EDT) Sodium 137 136 - 145 mEq/L [facility] Potassium 3.9 3.5 - 5.0 mEq/L [facility] Chloride 100 96 - 110 mEq/L [facility] CO2 24 24 - 30 mEq/L [facility] 05/28/2000 14:4 7 EDT 05/28/2000 14:49 EDT Default Emergency CHEMISTRY & BLOOD G ORDERABLES Performing Organization Address [facility] de Phone Number [facility] [address] [place] [address] * HOLD (05/28/2000 14:47 EDT) Hold Sample for coagulation will be discarded after 4 hours [facility] 05/28/2000 14:4 7 EDT 05/28/2000 14:49 EDT Default Emergency CHEMISTRY & BLOOD G ORDERABLES Performing Organization Address [facility] de Phone Number [facility] [address] [place] [address] * (ABNORMAL) CREATININE (05/28/2000 14:47 EDT) Pathologist [facility] Creatinine 0.6(L) 0.7 - 1.5 mg/dl [facility] 05/28/2000 14:4 7 EDT 05/28/2000 14:49 EDT Default Emergency MD HISTORICAL LAB FOR SQ LOAD [facility] [address] [place] [address] * (ABNORMAL) HEMAGRAM & DIFF (05/28/2000 14:47 EDT) Pathologist [facility] WBC 15.08(H) 4.0 - 12.4 K/cmm [facility] RBC 5.07(H) 3.86 - 5.04 M/cmm [facility] Hemoglobin 13.6 11.6 - 15.2 gm/dl [facility] HCT 40.5 34.9 - 44.4 % [facility] MCV 80(L) 81 - 98 fl [facility] MCH 26.8 26.7 - 33.3 pg [facility] MCHC 33.6 32.1 - 35.9 gm/dl [facility] PLT 169 141 - 320 K/cmm [...] LOAD Performing Organization Address [facility] Co de Phone Number [facility] [address] [place] [address] * (ABNORMAL) BUN (05/28/2000 14:47 EDT) BUN 7(L) 10 - 26 mg/dl [facility] 05/28/2000 14:4 7 EDT 05/28/2000 14:49 EDT Default Emergency CHEMISTRY & BLOOD G ORDERABLES Performing Organization Address [facility] Co de Phone Number [facility] [address] [place] [address] * GRAM SMEAR (05/28/2000 14:44 EDT) Specimen Description Urine [facility] Gram Smear Result Mod Polys >50 Gram negative bacilli , per oil immersion field [facility] Report Status Final [id number] [facility] 05/28/2000 14:4 4 EDT 05/29/2000 9:38 EDT Shannan Vieyra MD MICROBIOLOGY - GENER AL ORDERABLES Performing Organization Address [facility] Co de Phone Number [facility] [address] [place] [address] * BACTERIAL CULTURE, URINE (05/28/2000 14:44 EDT) Specimen Description Urine [facility] Result Greater than 100,000 CFU/ml ESCHERICHIA COLI 10,000 to 100,000 CFU/ml Mixed gram positive growth [facility] Report Status Final [id number] [facility] 05/28/2000 14:4 4 EDT [...] ORDERABLES Performing Organization Address [facility] Co de Phone Number [facility] [address] [place] [address] * TEST, URINE (05/28/2000 14:44 EDT) Result-Pregnanc y Test, Ur Neg [facility] Specific [place] 1.015 [facility] 05/28/2000 14:4 4 EDT 05/28/2000 14:44 EDT Default Emergency URINALYSIS ORDERABL ES Performing Organization Address [facility] Co de Phone Number [facility] [address] [place] [address] * (ABNORMAL) URINE MICROSCOPIC ONLY (05/28/2000 14:44 [...] URINALYSIS ORDERABL ES [facility] [address] [place] [address] documented in this encounter Visit Diagnoses Not on filedocumented in this encounter
--- OUTSIDE RECORDS SUMMARY | 2024-07-02 20:56 | XMS_ITS | Encounter Summary ---
Author Organization [facility] Address [address] [place] [address] Care Team Providers Care Electronic Train Control Technician Name Role Phone Unavailable Primary Care Provider Unavailabl e Encounter Details Date Type Department Care Team (Late st Contact Info) Description 05/19/2000 22:23 EDT Hospital Encounter [facility] - Other [address] [place] [address] Audrey Rausch MD [address] [place] [address], [facility] [place] [facility] [address] [place] [address] Unknown, Provider, Social History Tobacco Use Types Packs/Day Years Used Date Smoking Tobacco: Never Smokeless Tobacco: Never Alcohol Use Standard Drinks/Week Comments No 0 (1 standard drink = 0.6 oz pur e alcohol) [facility] Utilities Answer Date Recorded In the past 12 months has [employer], gas, oil, or water [employer] threatened to shut off services in your [...] ? DORIS KERR ? Accession #: ? [id number] : ? 1980 (Age: 20) ??F ?Collect [...] electronically signed by: ? SHAYE LYNN MD [facility] ? Report Date: ??06/01/2000 17:21 End of Report [facility] 05/19/2000 05/20/2000 Audrey Rausch MD PATHOLOGY ORDERABL ES [facility] [address] [place] [address] documented in this encounter Visit Diagnoses Not on filedocumented in this encounter
--- OUTSIDE RECORDS SUMMARY | 2024-07-02 20:56 | XMS_ITS | Encounter Summary ---
Author Organization [facility] Address [address] [place] [address] Care Team Providers Care Pole Lift Operator Name Role Phone Unavailable Primary Care Provider Unavailabl e Encounter Details Date Type Department Care Team (Latest Contact Info) Description 10/05/2000 16:08 EST Hospital Encounter [address] [address] Wyatt Sousa PA Discharge Disposition: Auto Discharge [...]
--- OUTSIDE RECORDS SUMMARY | 2024-07-02 20:56 | XMS_ITS | Encounter Summary ---
Author Organization [facility] Address [address] [place] [address] Care Team Providers Care Rn Burn Name Role Phone Unavailable Primary Care Provider Unavailabl e Encounter Details Date Type Department Care Team (Latest Contact Info) Description 08/26/2000 17:12 EST Hospital Encounter [facility] Emergency Department - [facility] [address] [place], [place] [address] Emergency, Default, MD Discharge Disposition: Home or [...]
--- OUTSIDE RECORDS SUMMARY | 2024-07-02 20:56 | XMS_ITS | Encounter Summary ---
Author Organization [facility] Address [address] [place] [address] Care Team Providers Care Child Specialist Name Role Phone Unavailable Primary Care Provider Unavailabl e Encounter Details Date Type Department Care Team (Latest Contact Info) Description 11/13/2001 7:38 EST - 11/13/2001 11:59 EST Hospital Encounter [facility] [place] [address] Emergency, Default, MD Discharge Disposition: Home or [...]
--- OUTSIDE RECORDS SUMMARY | 2024-07-02 20:56 | XMS_ITS | Encounter Summary ---
Author Organization [facility] Address [address] [place] [address] Care Team Providers Care Distribution District Supervisor Name Role Phone Unavailable Primary Care Provider Unavailabl e Encounter Details Date Type Department Care Team (Late st Contact Info) Description 01/20/2000 20:43 EDT Hospital Encounter [facility] - Other [address] [place] [address] Audrey Rausch MD [address] [place] [address], [facility] [address] [place] [address] Unknown, Provider, Social History Tobacco Use Types Packs/Day Years Used Date Smoking Tobacco: Never Smokeless Tobacco: Never Alcohol Use Standard Drinks/Week Comments No 0 (1 standard drink = 0.6 oz pur e alcohol) [facility] Utilities Answer Date Recorded In the past 12 months has [employer], gas, oil, or water [employer] threatened to shut off services in your [...] MADHU DORIS Mykel ? Accession #: ? [id number] ? : ? 1980 (Age: 19) ??F [...] MD PATHOLOGY ORDERABL ES Performing Organization Address City/State/[facility] Co de Phone Number [facility] [address] [place] [address] documented in this encounter Visit Diagnoses Not on filedocumented in this encounter
--- OUTSIDE RECORDS SUMMARY | 2024-07-02 20:56 | XMS_ITS | Encounter Summary ---
Author Organization [facility] Address [address] [place] [address] Care Team Providers Care Retail Product Advisor Name Role Phone Unavailable Primary Care Provider Unavailabl e Encounter Details Date Type Department Care Team (Late st Contact Info) Description 09/22/2000 10:27 EST Hospital Encounter [facility] - Other [address] [place] [address] Audrey Rausch MD [address] [place] [address], [address] [place] [address] Unknown, Provider, Social History Tobacco Use Types Packs/Day Years Used Date Smoking Tobacco: Never Smokeless Tobacco: Never Alcohol Use Standard Drinks/Week Comments No 0 (1 standard drink = 0.6 oz pur e alcohol) [facility] Utilities Answer Date Recorded In the past 12 months has [employer], gas, oil, or water [employer] threatened to shut off services in your [...] ? DORIS KERR ? Accession #: ? [id number] : ? 1980 (Age: 20) ??F ?Collect [...] electronically signed by: ? SHAYE LYNN MD [facility] ? Report Date: ??10/07/2000 17:22 End of Report [facility] 09/22/2000 09/23/2000 Audrey Rausch MD PATHOLOGY ORDERABL ES [facility] [address] [place] [address] documented in this encounter Visit Diagnoses Not on filedocumented in this encounter
--- OUTSIDE RECORDS SUMMARY | 2024-07-02 20:56 | XMS_ITS | Encounter Summary ---
Author Organization [facility] Address [address] [place] [address] Care Team Providers Care Eap Counselor Name Role Phone Unavailable Primary Care Provider Unavailabl e Encounter Details Date Type Department Care Team (Latest Contact Info) Description 10/02/2000 13:59 EST Hospital Encounter [facility] Emergency Department - [facility] [address] [place], [place] [address] Emergency, MD Keli Discharge Disposition: Home or [...] 15:19 FINDINGS: Negative for fracture or dislocation. /[facility] Efe Guerrier MD IMG DIAGNOSTIC IMAG ING ORDERABLES documented in this encounter Visit Diagnoses Not on filedocumented in this encounter
--- OUTSIDE RECORDS SUMMARY | 2024-07-02 20:56 | XMS_ITS | Encounter Summary ---
Author Organization [facility] Address [address] [place] [address] Care Team Providers Care Robotic Machine Tender Production Name Role Phone Unavailable Primary Care Provider Unavailabl e Encounter Details Date Type Department Care Team (Latest Contact Info) Description 04/10/2000 5:00 EDT - 04/10/2000 11:59 EDT Hospital Encounter [facility] [place] [address] Emergency, Default, MD Discharge Disposition: Home or [...]
--- OUTSIDE RECORDS SUMMARY | 2024-07-02 20:56 | XMS_ITS | Encounter Summary ---
Author Organization [facility] Address [address] [place] [address] Care Team Providers Care Pre Press Proofer Name Role Phone Unavailable Primary Care Provider Unavailabl e Encounter Details Date Type Department Care Team (Latest Contact Info) Description 08/09/1999 3:14 EST - 08/09/1999 11:59 EST Hospital Encounter [facility] [place] [address] Emergency, Default, MD Discharge Disposition: Home or [...]
--- OUTSIDE RECORDS SUMMARY | 2024-07-02 20:56 | XMS_ITS | Encounter Summary ---
Author Organization [facility] Address [address] [place] [address] Care Team Providers Care Fence Manufacture Supervisor Name Role Phone Unavailable Primary Care Provider Unavailabl e Encounter Details Date Type Department Care Team (Late st Contact Info) Description 12/15/1999 9:44 EST Hospital Encounter [facility] - Other [address] [place] [address] Shy Crowe, NO BAKE MOLDER [address] [place] [address] Unknown, Provider, Social History Tobacco Use Types Packs/Day Years Used Date Smoking Tobacco: Never Smokeless Tobacco: Never Alcohol Use Standard Drinks/Week Comments No 0 (1 standard drink = 0.6 oz pur e alcohol) [facility] Utilities Answer Date Recorded In the past 12 months has [facility], gas, oil, or water company threatened to [...] ? DORIS KERR ? Accession #: ? [id number] : ? 1980 (Age: 19) ??F ?Collect Date: ? 12/16/1999 Location: ?Receive Date: ? 12/16/1999 Provider: ?SHY PINEDA NO BAKE MOLDER Copy to: ?SHY GRIGGS ? Specimen/Source: ?Soldering Inspector ThinPrep Last Menstrual Period: ? GYNECOLOGIC ??CYTOPATHOLOGY ??REPORT Name: DORIS KERR ? [facility] : 1980 ?? 19Y F ?Client ID: ?? SS#: [id number] ? Clinician: SHY RIVERA ?? Location: [facility] ??Copy to: ?? Specimen: ?Soldering Inspector ThinPrep ? Source: Cervix ?Collected: 12/15/99 ? [...] 9:38 EST 12/16/1999 9:39 EST Shy Crowe NO BAKE MOLDER PATHOLOGY ORDERA BLES Performing Organization Address [facility] Co de Phone Number [facility] [address] [place] [address] * CHLAMYDIA TRACHOMATIS PROBE (12/15/1999 18:00 EST) Specimen Description Cervix [facility] Result No Chlamydia trachomatis DNA detected by jazz singer mediated amplification. [facility] Report Status Final [id number] [facility] 12/15/1999 18:0 0 EST 12/16/1999 9:26 EST Shy Crowe NO BAKE MOLDER HISTORICAL LAB F OR SQ LOAD Performing Organization Address [facility] de Phone Number [facility] [address] [place] [address] * N.GONORRHOEAE PROBE (12/15/1999 18:00 EST) Specimen Description Cervix [facility] Result No Neisseria gonorrhoeae DNA detected by jazz singer mediated amplification. [facility] Report Status Final [id number] [facility] 12/15/1999 18:0 0 EST 12/16/1999 9:26 EST Shy Crowe NO BAKE MOLDER HISTORICAL LAB F OR SQ LOAD Performing Organization Address [facility] Co de Phone Number [facility] [address] [place] [address] documented in this encounter Visit Diagnoses Not on filedocumented in this encounter
--- OUTSIDE RECORDS SUMMARY | 2024-07-02 20:56 | XMS_ITS | Encounter Summary ---
Author Organization [facility] Address [address] [place] [address] Care Team Providers Care Province Archivist Name Role Phone Unavailable Primary Care Provider Unavailabl e Encounter Details Date Type Department Care Team (Latest Contact Info) Description 05/29/2000 2:30 EDT - 06/01/2000 11:[address] [facility] General Medicine Unit [address] [place] [address] Ashwin Resendiz MD [address] [place] [address] Shannan Vieyra MD Discharge Disposition: Home or [...] BLOOD GA S ORDERABLES Performing Organization Address [facility] de Phone Number [facility] [address] [place] [address] * (ABNORMAL) CREATININE (06/01/2000 6:00 EDT) Creatinine 0.6(L) 0.7 - 1.5 mg/dl [facility] 06/01/2000 6:00 EDT 06/01/2000 7:29 EDT Shannan Vieyra MD HISTORICAL LAB FOR S Q LOAD Performing Organization Address [facility] de Phone Number [facility] [address] [place] [address] * (ABNORMAL) HEMAGRAM & DIFF (06/01/2000 6:00 [...] LAB Neutrophils 39(L) 45.5 - 79.7 % [facility] % Bands 1 % RU[facility] [...] S Q LOAD [facility] [address] [place] [address] * (ABNORMAL) BUN (06/01/2000 6:00 EDT) BUN 3(L) 10 - 26 mg/dl [facility] 06/01/2000 6:00 EDT 06/01/2000 7:29 EDT Shannan Vieyra MD CHEMISTRY & BLOOD GA S ORDERABLES Performing Organization Address [facility] de Phone Number [facility] [address] [place] [address] * (ABNORMAL) ELECTROLYTES (05/31/2000 6:15 EDT) Sodium 137 136 - 145 mEq/L [facility] Potassium 3.6 3.5 - 5.0 mEq/L [facility] Chloride 106 96 - 110 mEq/L [facility] CO2 23(L) 24 - 30 mEq/L [facility] 05/31/2000 6:15 EDT 05/31/2000 7:20 EDT Shannan Vieyra MD CHEMISTRY & BLOOD UT S ORDERABLES Performing Organization Address [facility] de Phone Number [facility] [address] [place] [address] * (ABNORMAL) CREATININE (05/31/2000 6:15 EDT) Pathologist [facility] Creatinine 0.6(L) 0.7 - 1.5 mg/dl [facility] 05/31/2000 6:15 EDT 05/31/2000 7:20 EDT Shannan Vieyra MD HISTORICAL LAB FOR S Q LOAD Performing Organization Address [facility] de Phone Number [facility] [address] [place] [address] * (ABNORMAL) HEMAGRAM & DIFF (05/31/2000 6:15 [...] FOR S Q LOAD Performing Organization Address [facility] Co de Phone Number [facility] [address] [place] [address] * (ABNORMAL) BUN (05/31/2000 6:15 EDT) BUN 3(L) 10 - 26 mg/dl [facility] 05/31/2000 6:15 EDT 05/31/2000 7:20 EDT Shannan Vieyra MD CHEMISTRY & BLOOD GA S ORDERABLES Performing Organization Address [facility]/ZIP Co de Phone Number [facility] [address] [place] [address] * (ABNORMAL) ELECTROLYTES (05/30/2000 6:25 EDT) Sodium 139 136 - 145 mEq/L [facility] Potassium 4.0 3.5 - 5.0 mEq/L [facility] Chloride 111(H) 96 - 110 mEq/L [facility] CO2 22(L) 24 - 30 mEq/L [facility] 05/30/2000 6:25 EDT 05/30/2000 7:48 EDT Shannan Vieyra MD CHEMISTRY & BLOOD GA S ORDERABLES Performing Organization Address [facility] de Phone Number [facility] [address] [place] [address] * (ABNORMAL) CREATININE (05/30/2000 6:25 EDT) Pathologist [facility] Creatinine 0.6(L) 0.7 - 1.5 mg/dl [facility] 05/30/2000 6:25 EDT 05/30/2000 7:48 EDT Shannan Vieyra MD HISTORICAL LAB FOR S Q LOAD Performing Organization Address [facility] de Phone Number [facility] [address] [place] [address] * (ABNORMAL) HEMAGRAM & DIFF (05/30/2000 6:25 [...] S Q LOAD [facility] [address] [place] [address] * (ABNORMAL) BUN (05/30/2000 6:25 EDT) Pathologist [facility] BUN 2(L) 10 - 26 mg/dl [facility] 05/30/2000 6:25 EDT 05/30/2000 7:48 EDT Shannan Vieyra MD CHEMISTRY & BLOOD GA S ORDERABLES [facility] [address] [place] [address] * (ABNORMAL) URINE MICROSCOPIC (05/30/2000 0:45 EDT) Pathologist [facility] WBC, UA 1 to 5 0 - [...] MD URINALYSIS ORDERABLE S Performing Organization Address [facility] de Phone Number [facility] [address] [place] [address] * (ABNORMAL) URINALYSIS (05/30/2000 0:45 EDT) Color, UA Yellow [facility] Clarity, UA Clear [facility] Glucose, UA Norm NORM [facility] Bilirubin, UA Neg NEG [facility] Ketones, UA Neg NEG [facility] Specific [place], Urine 1.005 1.005 - 1.02 [facility] [...] MD URINALYSIS ORDERABLE S Performing Organization Address [facility] Co de Phone Number [facility] [address] [place] [address] * BACTERIAL CULTURE, BLOOD (05/30/2000 0:40 EDT) Specimen Description Blood Left Arm [facility] Result No growth [facility] Report Status Final [id number] [facility] 05/30/2000 0:40 EDT 05/30/2000 1:00 EDT Shannan Vieyra MD MICROBIOLOGY - GENER AL ORDERABLES Performing Organization Address [facility] de Phone Number [facility] [address] [place] [address] * BACTERIAL CULTURE, BLOOD (05/30/2000 0:30 EDT) Specimen Description Blood Right Arm [facility] Result No growth [facility] Report Status Final [id number] [facility] 05/30/2000 0:30 EDT 05/30/2000 1:00 EDT Shannan Vieyra MD MICROBIOLOGY - GENER AL ORDERABLES Performing Organization Address [facility] Phone Number [facility] [address] [place] [address] * TEST, URINE (05/29/2000 14:10 EDT) Result-Pregnanc y Test, Ur Neg [facility] Specific [place] 1.005 [facility] 05/29/2000 14:1 0 EDT 05/29/2000 14:10 EDT Shannan Vieyra MD URINALYSIS ORDERABLE S Performing Organization Address [facility] de Phone Number [facility] [address] [place] [address] * BACTERIAL CULTURE, URINE (05/29/2000 14:09 EDT) Specimen Description Urine [facility] Result No growth [facility] Report Status Final [id number] [facility] 05/29/2000 14:0 9 EDT 05/29/2000 14:09 EDT Shannan Vieyra MD MICROBIOLOGY - GENER AL ORDERABLES Performing Organization Address [facility] de Phone Number [facility] [address] [place] [address] * (ABNORMAL) URINE MICROSCOPIC (05/29/2000 14:09 EDT) [...] MD URINALYSIS ORDERABLE S Performing Organization Address City/[facility]/ZIP Co de Phone Number [facility] [address] [place] [address] * (ABNORMAL) URINALYSIS (05/29/2000 14:09 EDT) Color, UA Yellow [facility] Clarity, UA Clear [facility] Glucose, UA Norm NORM [facility] Bilirubin, UA Neg NEG [facility] Ketones, UA Neg NEG [facility] Specific [place], Urine 1.005 1.005 - 1.02 [facility] [...] MD URINALYSIS ORDERABLE S Performing Organization Address City/[facility]/ZIP Co de Phone Number [facility] [address] [place] [address] * CT PELVIS WO/CONTRAST (05/29/2000 9:09 EDT) [...] GA S ORDERABLES [facility] [address] [place] [address] * (ABNORMAL) CREATININE (05/29/2000 6:25 EDT) Creatinine 0.6(L) 0.7 - 1.5 mg/dl [facility] 05/29/2000 6:25 EDT 05/29/2000 7:35 EDT Shannan Vieyra MD HISTORICAL LAB FOR S Q LOAD [facility] [address] [place] [address] * (ABNORMAL) HEMAGRAM & DIFF (05/29/2000 6:25 [...] S Q LOAD [facility] [address] [place] [address] * (ABNORMAL) BUN (05/29/2000 6:25 EDT) BUN 5(L) 10 - 26 mg/dl [facility] 05/29/2000 6:25 EDT 05/29/2000 7:35 EDT Shannan Vieyra MD CHEMISTRY & BLOOD GA S ORDERABLES Performing Organization Address [facility] Co de Phone Number [facility] [address] [place] [address] * BACTERIAL CULTURE, BLOOD (05/29/2000 2:15 EDT) Specimen Description Blood Right Arm [facility] Result No growth [facility] Report Status Final [id number] [facility] 05/29/2000 2:15 EDT 05/29/2000 8:57 EDT Shannan Vieyra MD MICROBIOLOGY - GENER AL ORDERABLES Performing Organization Address [facility] Co de Phone Number [facility] [address] [place] [address] documented in this encounter Visit Diagnoses Not on filedocumented in this encounter
--- OUTSIDE RECORDS SUMMARY | 2024-07-02 20:56 | XMS_ITS | Encounter Summary ---
Author Organization [facility] Address [address] [place] [address] Care Team Providers Care Loss Prevention Leader Name Role Phone Unavailable Primary Care Provider Unavailabl e Encounter Details Date Type Department Care Team (Late st Contact Info) Description 02/12/2003 14:53 EDT Hospital Encounter [facility] - Other [address] [place] [address] Leida Cerda PA-C [address] [place] [address] [address] [place] [address] Social History Tobacco Use Types Packs/Day Years Used Date Smoking Tobacco: Never Smokeless Tobacco: Never Alcohol Use Standard Drinks/Week Comments No 0 (1 standard drink = 0.6 oz pur e alcohol) [facility] Utilities Answer Date Recorded In the past 12 months has [employer] electric, gas, oil, or water company threatened [...]
--- OUTSIDE RECORDS SUMMARY | 2024-07-02 20:56 | XMS_ITS | Encounter Summary ---
Author Organization [facility] Address [address] [place] [address] Care Team Providers Care Bench Patternmaker Metal Name Role Phone Unavailable Primary Care Provider Unavailabl e Encounter Details Date Type Department Care Team (Latest Contact Info) Description 03/27/2001 12:28 EDT Hospital Encounter [facility] Emergency Department - [facility] [address] [place], [place] [address] Emergency, Default, MD Discharge Disposition: Home or [...] BLOOD G ORDERABLES [facility] [address] [place] [address] * (ABNORMAL) HEMAGRAM & DIFF (03/27/2001 12:39 [...] ABS Monocytes 0.46 0.1 - 0.8 K/cmm [facility] ABS Eosinophils 0.19 0.03 - 0.61 K/cmm [facility] ABS Basophils 0.04 0.01 - 0.11 K/cmm [facility] Type of Diff: Automated [facility] 03/27/2001 12:3 9 EDT 03/27/2001 12:39 EDT Default Emergency HISTORICAL LAB FOR SQ LOAD [facility] [address] [place] [address] * SURGICAL PATHOLOGY (03/27/2001 0:00 EDT) Pathology Report: SURGICAL PATHOLOGY REPORT Reports generated via electronic interface contain original data; however they are lacking the format of the original report. Caution should be taken when reading/interpreti ng unformatted reports. Name: ? DORIS KERR ? Accession #: ? [id number] ? : ? 1980 (Age: 21) ??F [...] 2.0 cm. ??No parts are grossly identified. ??Health Assistant sections are submitted as (A1) and (A2). [...] PATHOLOGY ORDERABLE S [facility] [address] [place] [address] documented in this encounter Visit Diagnoses Not on filedocumented in this encounter
--- OUTSIDE RECORDS SUMMARY | 2024-07-02 20:56 | XMS_ITS | Encounter Summary ---
Author Organization [facility] Address [address] [place] [address] Care Team Providers Care Plastics Engineer Name Role Phone Unavailable Primary Care Provider Unavailabl e Encounter Details Date Type Department Care Team (Late st Contact Info) Description 10/04/2000 15:03 [facility] Hospital Encounter [facility] - Other [address] [place] [address] yWatt Sousa PA Unknown, Provider, Social History Tobacco Use Types Packs/Day Years Used Date Smoking Tobacco: Never Smokeless Tobacco: Never Alcohol Use Standard Drinks/Week Comments No 0 (1 standard drink = 0.6 oz pur e alcohol) [facility] Utilities Answer Date Recorded In [...] Unknown HISTORICAL LAB FOR S Q LOAD [facility] [address] [place] [address] * (ABNORMAL) BASIC METABOLIC PANEL (10/04/2000 13:00 [...] BLOOD GA S ORDERABLES Performing Organization Address [facility] Co de Phone Number [facility] [address] [place] [address] * BACTERIAL CULTURE, URINE (10/04/2000 13:00 EST) Specimen Description Urine [facility] Result Greater than 100,000 CFU/ml ESCHERICHIA COLI [facility] Report Status Final [id number] [facility] 10/04/2000 13:0 0 EST [...] - GENER AL ORDERABLES Performing Organization Address City/[facility] Co de Phone Number [facility] [address] [place] [address] documented in this encounter Visit Diagnoses Not on filedocumented in this encounter
--- OUTSIDE RECORDS SUMMARY | 2024-07-02 20:56 | XMS_ITS | Encounter Summary ---
Author Organization [facility] Address [address] [place] [address] Care Team Providers Care Steam Clean Machine Operator Name Role Phone Unavailable Primary Care Provider Unavailabl e Encounter Details Date Type Department Care Team (Late st Contact Info) Description 01/12/2001 9:06 EDT Hospital Encounter [facility] - Other [address] [place] [address] Audrey Rausch MD [address] [place] [address], [facility] [address] [place] [address] Unknown, Provider, Social History Tobacco Use Types Packs/Day Years Used Date Smoking Tobacco: Never Smokeless Tobacco: Never Alcohol Use Standard Drinks/Week Comments No 0 (1 standard drink = 0.6 oz pur e alcohol) [facility] Utilities Answer Date Recorded In the past 12 months has [employer], gas, oil, or water [employer] threatened to shut off services in your [...] ? DORIS KERR ? Accession #: ? [id number] : ? 1980 (Age: 20) ??F ?Collect [...] MD PATHOLOGY ORDERABL ES [facility] [address] [place] [address] documented in this encounter Visit Diagnoses Not on filedocumented in this encounter
--- OUTSIDE RECORDS SUMMARY | 2024-07-02 20:56 | XMS_ITS | Encounter Summary ---
Author Organization [facility] Address [address] [place] [address] Care Team Providers Care Manager Global Name Role Phone Unavailable Primary Care Provider Unavailabl e Encounter Details Date Type Department Care Team (Late st Contact Info) Description 03/15/2001 16:52 EDT Hospital Encounter [address] [address] Denice Martinez MD [address] [place] [address], [address] [place] [id number] Discharge Disposition: Auto Discharge Social History Tobacco [...] growth [facility] Report Status Final [id number] [facility] 03/15/2001 16:5 8 EDT 03/15/2001 17:09 EDT Denice Martinez MD MICROBIOLOGY - GENER AL ORDERABLES Performing Organization Address [facility] de Phone Number [facility] [address] [place] [address] * PROGESTERONE (03/15/2001 16:58 EDT) Progesterone 6.1 [...] BLOOD GA S ORDERABLES Performing Organization Address [facility] de Phone Number [facility] [address] [place] [address] * HCG (03/15/2001 16:58 EDT) HCG 8849 mIU/ml [facility] Comment: <4 = Negative 4-10 = Borderline, recommend repeat. 03/15/2001 16:5 8 EDT 03/15/2001 17:09 EDT Denice Martinez MD CHEMISTRY & BLOOD GA S ORDERABLES Performing Organization Address [facility] Co de Phone Number [facility] [address] [place] [address] * PROFILE (03/15/2001 16:58 EDT) ABO and Rh Type A POS FLE [facility] Antibody Screen Neg [facility] WBC 6.35 4.0 - 12.4 K/cmm [facility] RBC 4.49 3.86 - 5.04 M/cmm [facility] Hemoglobin 12.4 11.6 - 15.2 gm/dl [facility] HCT 37.3 34.9 - 44.4 % [facility] MCV 83 81 - 98 fl [facility] MCH 27.6 26.7 - 33.3 pg [facility] MCHC 33.3 32.1 - 35.9 gm/dl [facility] PLT 232 141 - 320 K/cmm [facility] RDW-CV 13.8 11.7 - 14.6 % [facility] Hepatitis B Surface Ag Neg [facility] % Neutrophils 46.3 45.5 - 79.7 [...] DNA PROBE ORDERABLES [facility] [address] [place] [address] documented in this encounter Visit Diagnoses Not on filedocumented in this encounter
--- OUTSIDE RECORDS SUMMARY | 2024-07-02 20:56 | XMS_ITS | Encounter Summary ---
Author Organization [facility] Address [address] [place] [address] Care Team Providers Care Finishing And Shipping Supervisor Name Role Phone Unavailable Primary Care Provider Unavailabl e Encounter Details Date Type Department Care Team (Latest Contact Info) Description 12/31/2000 23:46 EST - 01/01/2001 11:59 EST Hospital Encounter [facility] [place] [address] Emergency, Default, MD Discharge Disposition: Home or [...] BACTERIAL CULTURE, URINE (01/01/2001 8:11 EST) Pathologist [facility] Specimen Description Urine [facility] Result Greater than 100,000 CFU/ml ESCHERICHIA COLI [facility] Report Status Final [id number] [facility] 01/01/2001 8:11 EST 01/01/2001 [...] (SAÚL) <=0.5 Susceptible Default Emergency MICROBIOLOGY - [facility] ORDERABLES Performing Organization Address City/State/[facility] Co de Phone Number [facility] [address] [place] [address] * LIVER FUNCTION TESTS (01/01/2001 0:58 EST) Pathologist [facility] Albumin 4.2 3.0 - 5.5 g/dl [facility] [...] & BLOOD G ORDERABLES Performing Organization Address [facility] de Phone Number [facility] [address] [place] [address] * LIPASE (01/01/2001 0:58 EST) Lipase 70 0 - 210 U/L [facility] 01/01/2001 0:58 EST 01/01/2001 0:58 EST Default Emergency MD CHEMISTRY & BLOOD G ORDERABLES Performing Organization Address [facility] Phone Number [facility] [address] [place] [address] * HEMAGRAM & DIFF (01/01/2001 0:58 EST) WBC 6.79 4.0 - 12.4 K/cmm [facility] RBC 5.02 3.86 - 5.04 M/cmm [facility] Hemoglobin 13.9 11.6 - 15.2 gm/dl [facility] HCT 41.0 34.9 - 44.4 % [facility] MCV 82 81 - 98 fl [facility] MCH 27.7 26.7 - 33.3 pg [facility] MCHC 33.8 32.1 - 35.9 gm/dl [facility] PLT 197 141 - 320 K/cmm [facility] RDW-CV 13.5 11.7 - 14.6 [...] LAB FOR SQ LOAD Performing Organization Address [facility] Co de Phone Number [facility] [address] [place] [address] * (ABNORMAL) URINE MICROSCOPIC ONLY (01/01/2001 0:38 [...] Emergency URINALYSIS ORDERABL ES Performing Organization Address [facility] Co de Phone Number [facility] [address] [place] [address] documented in this encounter Visit Diagnoses Not on filedocumented in this encounter
--- OUTSIDE RECORDS SUMMARY | 2024-07-02 20:56 | XMS_ITS | Encounter Summary ---
Author Organization [facility] Address [address] [place] [address] Care Team Providers Care Credit Union Teller Name Role Phone Unavailable Primary Care Provider Unavailabl e Encounter Details Date Type Department Care Team (Latest Contact Info) Description 11/29/2000 15:32 EST Hospital Encounter [address] [address] Deana Gutierrez MD [address] [place] [phone] Discharge Disposition: Auto Discharge Social History Tobacco [...]
--- OUTSIDE RECORDS SUMMARY | 2024-07-02 20:56 | XMS_ITS | Encounter Summary ---
Author Organization [facility] Address [address] [place] [address] Care Team Providers Care Credit Union Teller Name Role Phone Unavailable Primary Care Provider Unavailabl e Encounter Details Date Type Department Care Team (Late st Contact Info) Description 01/17/2002 16:53 EDT Hospital Encounter [facility] [address] [place] [address] Shannan Vieyra MD Social History Tobacco Use Types Packs/Day Years Used Date Smoking Tobacco: Never Smokeless Tobacco: Never Alcohol Use Standard Drinks/Week Comments No 0 (1 standard drink = 0.6 oz pur e alcohol) [facility] Utilities Answer Date Recorded In the past 12 months has [employer] electric, gas, oil, or water company threatened [...]
--- OUTSIDE RECORDS SUMMARY | 2024-07-02 20:56 | XMS_ITS | Encounter Summary ---
Author Organization [facility] Address [address] [place] [address] Care Team Providers Care Wind Turbine Electrical Engineer Name Role Phone Unavailable Primary Care Provider Unavailabl e Encounter Details Date Type Department Care Team (Late st Contact Info) Description 11/01/2000 12:39 EST Hospital Encounter [facility] - Other [address] [place] [address] Audrey Rausch MD [address] [place] [address], [facility] [address] [place] [address] Unknown, Provider, Social History Tobacco Use Types Packs/Day Years Used Date Smoking Tobacco: Never Smokeless Tobacco: Never Alcohol Use Standard Drinks/Week Comments No 0 (1 standard drink = 0.6 oz pur e alcohol) [facility] Utilities Answer Date Recorded In the past 12 months has [employer], gas, oil, or water [employer] threatened to shut off services in your [...] ? DORIS KERR ? Accession #: ? [id number] ? : ? 1980 (Age: 20) ??F [...] MD PATHOLOGY ORDERABL ES Performing Organization Address City/State/[facility] Co de Phone Number [facility] [address] [place] [address] documented in this encounter Visit Diagnoses Not on filedocumented in this encounter
[2024-07-02 22:17] LABS: TSH (W/Ref FT4) 0.87 uIU/mL (0.36-3.74)
[2024-07-03 18:04] LABS: T3, Total 126 ng/dL (97-169)
[2024-07-04 17:47] LABS: FREE T4 1.27 ng/dL (0.76-1.46)
== END 2024-07-02 20:43 | disposition home or self-care (01) ==
LOC: NCHCN 20:42
PROVIDERS: PCP Family Medicine; Visit Provider Family Medicine
DX: E03.2 Hypothyroidism due to medicaments and other exogenous substances (principal)
CPT/HCPCS: 84439; 84443; 84480

== ENCOUNTER 2024-07-16 14:43 | Outpatient (CLI) | payer BC, SELFPAY ==
--- NOTE | 2024-07-16 15:44 | DI.RAD_ITS ---
Exam(s) XR CHEST 2V PA LATERAL EXAM: XR CHEST 2V PA LATERAL CLINICAL HISTORY: R05.9 Cough unspecified TECHNIQUE: 2D digital imaging was performed. Two views. COMPARISON: No exams were available for comparison FINDINGS: HEART: Normal size. Aorta: Not dilated. PULMONARY VASCULATURE: Normal. MEDIASTINUM: Unremarkable. LUNGS: Clear. PLEURAL SPACE: No pleural effusion or pneumothorax. BONE:Unremarkable for age. SOFT TISSUES: Unremarkable. IMPRESSION: No acute abnormality. DATA REPOSITORY: RADIATION DOSE DELIVERED:
== END 2024-07-16 15:03 ==
LOC: DI 14:43
PROVIDERS: PCP Family Medicine; Visit Provider Family Medicine
DX: R05.9 Cough, unspecified (principal)
CPT/HCPCS: 71046

== ENCOUNTER 2024-08-23 23:23 | Outpatient (REF) | payer BC, SELFPAY ==
--- OUTSIDE RECORDS SUMMARY | 2024-08-23 23:30 | XMS_ITS | Encounter Summary ---
Author Organization [facility] Address [address] [place] [address] Care Team Providers Care Inventory Worker Name Role Phone Comfort Zelaya NP Primary Care Provider [phone] Reason for Visit * Reason Comments Annual Exam Encounter Details Date Type Department Care Team (Late st Contact Info) Description 10/28/2023 13:30 EST Office Visit [facility] OBGYN Services - [address] [id number] Denice Martinez MD [address] [facility], [address] [place] [address] Well woman exam with routine gynecological exam (Primary Dx) Social History Tobacco Use Types Packs/Day Years Used Date Smoking Tobacco: Never Smokeless Tobacco: Never Alcohol Use Standard Drinks/Week Comments No 0 (1 standard drink = 0.6 oz pur e alcohol) [facility] Utilities Answer Date Recorded In the past 12 months has [employer], gas, oil, or water [employer] threatened to shut off services in your [...] Hurt Never 06/25/2020 Verbally Threaten Never 06/25/2020 Comments No Sex and Gender Information Value Date Recorded Sex Assigned at Not on file Legal Sex Female 18:04 EST Gender Identity Not on file Sexual Orientation [...] EST documented in this encounter Functional Status * Because of a physical, mental, or emotional condition, does this person have difficulty doing errands alone such as visiting a doctor's office or shopping? Answer Date of Assessment Author No 07/31/2018 9:46 EDT documented as of this encounter Mental Status * Because of a physical, mental, or emotional condition, does this person have serious difficulty concentrating, remembering, or making decisions? Answer Entry Date Author No 07/31/2018 9:46 EDT documented in this encounter Patient Instructions * Patient Instructions* Denice Martinez MD - 10/28/2023 13:30 EST Call for Mammogram [phone] documented in this encounter Ordered Prescriptions Prescription Sig Dispense Quantity Refills Last Filled Start Date End Date norethindrone (MICRONOR) 0.35 mg tablet Take 1 [...] NEURO: AAO x3, normal mood and affect. Station Manager: BREAST: No palpable masses or tenderness. No [...] Risk types, PCR Negative Negative 11/14/2023 19:11 EST [facility] Comment:No E6 or E7 mRNA is detected from HPV types 16,18,31,33,35,39,45,51,52,56,58,59,66, and 68 by digital computer systems analyst mediated amplification. Pap Test CERVIX UTERI STRUCTURE / Unknown 10/28/2023 14:05 EST 11/11/2023 14:23 EST Denice Martinez MD MICROBIOLOGY - GENERAL ORDER ENDY Final Result [facility] [address] [place] [id number] * PAP TEST (10/28/2023 14:05 EST) Specimens A. Cervix and/or Endocervix , ThinPrep Imaging System with Manual Evaluation 11/14/2023 19:11 EST [facility] Specimen Adequacy Satisfactory for Evaluation - transformation zone component present 11/14/2023 19:11 EST [facility] General Categorization Negative for intraepithelial lesion or malignancy 11/14/2023 19:11 [facility] Attestation . 11/14/2023 19:11 [facility] at 1911 Clinical History Screening 11/14/19 19:11 [facility] HPV The result for the Human Papillomavirus (HPV) Detection-High Risk Types is Negative. No E6 or E7 mRNA is detected from HPV types 16,18,31,33,35,39 ,45,51,52,56,58,5 9,66, and 68 by digital computer systems analyst mediated amplification.Misty ting was performed on specimen [id number] and was resulted on 11/14/2023 191 EST by LUAN, LAB INSTRUMENT RESULTS IN 11/14/2023 19:11 [facility] Performing Lab [facility] 11/14/2023 19:11 [facility] Scanned Images 11/14/2023 19:11 [facility] Pap Test CERVIX UTERI STRUCTURE / Unknown 10/28/2023 14:05 EST 10/31/2023 12:13 EST us Denice Martinez MD PATHOLOGY ORDERABLES Final R esult [facility] [address] [place] [address] documented in this encounter Visit Diagnoses Diagnosis [...] may reflect changes made after this encounter. methylphenidate HCl 36 mg CR tablet Take 54 mg by mouth daily. Daily Max: 54 mg added in this encounter Care Teams Inventory Worker Relationship Specialty Start Date End Date Comfort Zelaya NP [address] [place] [place] [phone] PCP - General Family Medicine - Primary Care 03/08/22 documented as of this encounter
--- OUTSIDE RECORDS SUMMARY | 2024-08-23 23:30 | XMS_ITS | Encounter Summary ---
Author Organization [facility] Address [address] [place] [address] Care Team Providers Care Parts Control Clerk Name Role Phone Comfort Zelaya NP Primary Care Provider [phone] Encounter Details Date Type Department Care Team (Late st Contact Info) Description 07/03/2024 Lab Requisition [facility] Pathology & Laboratory Medicine - [address] [address] Outr Resulting Lab, Provider Social History Tobacco Use Types Packs/Day Years Used Date Smoking Tobacco: Never Smokeless Tobacco: Never Alcohol Use Standard Drinks/Week Comments No 0 (1 standard drink = 0.6 oz pur e alcohol) [facility] Utilities Answer Date Recorded In [...] documented as of this encounter Functional Status * Because of [...] 07/31/2018 9:46 EDT documented in this encounter Plan of Treatment Not on file documented as of this encounter Procedures Procedure Name Priority Date/Time Associated Diagnosis Comments T3, TOTAL Routine 07/02/2024 13:40 EDT documented in this encounter Results * T3, TOTAL (07/02/2024 13:40 EDT) T3, Total 126 97 - 169 ng/dL 07/03/2024 17:59 EDT [facility] Blood VENOUS BLOOD / Unknown 07/02/2024 13:40 EDT 07/03/2024 17:09 EDT us Provider Outr Resulting Lab CHEMISTRY & BLOOD GA S ORDERABLES Final Result [facility] [address] [place] [address] documented in this encounter Visit Diagnoses Not on filedocumented in this encounter Care Teams Parts Control Clerk Relationship Specialty Start Date End Date Comfort Zelaya NP [address] [place] [phone] PCP - General Family Medicine - Primary Care 03/08/22 documented as of this encounter
--- OUTSIDE RECORDS SUMMARY | 2024-08-23 23:30 | XMS_ITS | Encounter Summary ---
Author Organization [facility] Address [address] [place] [address] Care Team Providers Care Feeder/Folder Name Role Phone Comfort Zelaya NP Primary Care Provider [phone] Encounter Details Date Type Department Care Team (Late st Contact Info) Description 08/27/2022 16:00 EST Phlebotomy Only [facility] 2 Phlebotomy [address] [place] [address] Bicycle Racer, Acc Phlebotomy History of Graves' disease Social [...] 07/31/2018 9:46 EDT documented in this encounter Miscellaneous Notes * [...] 0.47 - 4.68 mIU/L 08/27/2022 18:08 EST [facility] Blood VENOUS BLOOD / Unknown Venipuncture / Unknown 08/27/2022 16:07 EST 08/27/2022 16:38 EST Narrative [facility] - 08/27/2022 18:08 EST The results of this assay can be falsely lowered due to the consumption of Biotin. us Denice Martinez MD CHEMISTRY & BLOOD GAS ORDERA BLES Final Result [facility] [address] [place] [address] documented in this encounter Visit Diagnoses Diagnosis History of Graves' disease Personal history of other endocrine, metabolic, and immunity disorders documented in this encounter Care Teams Feeder/Folder Relationship Specialty Start Date End Date Comfort Zelaya NP [address] [place] [phone] PCP - General Family Medicine - Primary Care 03/08/22 documented as of this encounter
--- OUTSIDE RECORDS SUMMARY | 2024-08-23 23:30 | XMS_ITS | Encounter Summary ---
Author Organization [facility] Address [address] [place] [address] Care Team Providers Care Aviation Project Engineer Name Role Phone Comfort Zelaya NP Primary Care Provider [phone] Reason for Referral * Medication Prior Authorization (Urgent) - Authorized Specialty Diagnoses / Procedures [facility] To Contact Obstetrics & Gynecology Diagnoses Hypothyroidism, unspecified type Denice Martinez MD Phone: tel: fax: [address] [address] Phone: tel: fax: Referral ID Status Reason Start Date Expiration Date Visits Requested Visits Authorized [id number] Authorized Medication Prior Authorization 09/01/20 22 1 1 Question Answer Medication to be Prior Authorized: armour thyroid Comments The purpose of this request is to inform precertification staff that the requested service needs to be reviewed for prior-authorization. Encounter Details Date Type Department Care Team (Late st Contact Info) Description 09/01/2022 Orders Only [address] [address] Comfort Garcia RN Hypothyroidism, unspecified type (Primary [...] Primary documented in this encounter Care Teams Aviation Project Engineer Relationship Specialty Start Date End Date Comfort Zelaya NP [address] [place] [phone] PCP - General Family Medicine - Primary Care 03/08/22 documented as of this encounter
--- OUTSIDE RECORDS SUMMARY | 2024-08-23 23:30 | XMS_ITS | Encounter Summary ---
Author Organization [facility] Address [address] [place] [address] Care Team Providers Care Consulting Analyst Name Role Phone Comfort Zelaya NP Primary Care Provider [phone] Encounter Details Date Type Department Care Team (Late st Contact Info) Description 04/15/2023 Lab Requisition [facility] Pathology & Laboratory Medicine - [address] [address] Outr Resulting Lab, Provider Social History Tobacco [...] 97 - 169 ng/dL 04/15/2023 22:16 EDT [facility] Blood VENOUS BLOOD / Unknown 04/15/2023 8:55 EDT 04/15/2023 21:31 EDT us Provider Outr Resulting Lab CHEMISTRY & BLOOD GA S ORDERABLES Final Result Performing Organization Address City/State/[facility] Co de Phone Number [facility] [address] [place] [address] documented in this encounter Visit Diagnoses Not on filedocumented in this encounter Care Teams Consulting Analyst Relationship Specialty Start Date End Date Comfort Zelaya NP [address] [place] [phone] PCP - General Family Medicine - Primary Care 03/08/22 documented as of this encounter
--- OUTSIDE RECORDS SUMMARY | 2024-08-23 23:30 | XMS_ITS | Encounter Summary ---
Author Organization [facility] Address [address] [place] [address] Care Team Providers Care Buying Intern Name Role Phone Comfort Zelaya NP Primary Care Provider [phone] Reason for Visit * Reason Onset Date Comments Medication Management 04/26/2023 Encounter Details Date Type Department Care Team (Late st Contact Info) Description 04/26/2023 Telephone [facility] OBGYN Services - [address] [address] Denice Martinez MD [address] [place] [address], [address] [place] [address] Medication Management Social History Tobacco [...] 07/31/2018 9:46 EDT documented in this encounter Ordered Prescriptions Prescription Sig Dispense Quantity Refills Last Filled Start Date End Date norethindrone (MICRONOR) 0.35 mg tablet Take 1 Tablet by mouth daily. 84 Tablet 1 04/26/2023 10/18/2023 documented in this encounter Miscellaneous Notes * Telephone Encounter - Cristy Engle RN - 04/26/2023 5664 EDT TC to patient to notify, she verbalizes understanding and will call in a few months to schedule annual visit. * Telephone Encounter - Cristy Engle RN - 04/26/2023 0533 EDT Medication Refill Request Patient/Fax/Surescript Request Medication/Dose/Route/Frequency: norethondrone (MICRONOR) 0.35 mg, prefers 3 mo supply at a time, takes continuously Last office visit: 08/17/22 Pending visit: None. Patient is not yet due. If appointment needed-message left/appointment made: N/A Pharmacy confirmed: [facility] #[id number] - [address] [facility] [address] [facility] Amount filled/# of refills: 2 per MD orders, to last until patient is due for appointment. * Telephone Encounter - Eliza Mendoza - 04/26/2023 1070 EDT Reason for call as described by patient: Pt needs refill of medication. Somehow, pharmacy said theyasked for both epipen and control. She does not need an epipen as she just got one from her PCP, but does still need refill for OCPs. Medication(s) Requested: norethondrone (MICRONOR) 0.35 mg, prefers 3 mo supply at a time, takes continuously. Preferred Pharmacy: [facility] #[id number] [place], [place] - [address] [place] [address] [facility] Is patient out of medication? Yes Is [...] documented as of this encounter Care Teams Buying Intern Relationship Specialty Start Date End Date Comfort Zelaya NP [address] [place] [phone] PCP - General Family Medicine - Primary Care 03/08/22 documented as of this encounter
--- OUTSIDE RECORDS SUMMARY | 2024-08-23 23:30 | XMS_ITS | Encounter Summary ---
Author Organization [facility] Address [address] [place] [address] Care Team Providers Care Compressor Engineer Name Role Phone Comfort Zelaya NP Primary Care Provider [phone] Reason for Visit * Reason Comments Well Woman Exam Encounter Details Date Type Department Care Team (Late st Contact Info) Description 08/27/2022 15:[address] [facility] OBGYN Services - [address] [address] Denice Martinez MD [address] [place] [address], [address] [place] [address] History of Graves' disease (Primary [...] Refills Last Filled Start Date End Date Thyroid, Pork, (ARMOUR THYROID) 180 mg tabletIndications: Hypothyroidism, iatrogenic Take 1 Tablet by mouth daily. [...] NEURO: AAO x3, normal mood and affect. Pharmacy Grad Intern: BREAST: No palpable masses or tenderness. No [...] 0.47 - 4.68 mIU/L 08/27/2022 18:08 EST [facility] Blood VENOUS BLOOD / Unknown Venipuncture / Unknown 08/27/2022 16:07 EST 08/27/2022 16:38 EST Narrative [facility] - 08/27/2022 18:08 EST The results of this assay can be falsely lowered due to the consumption of Biotin. us Denice Martinez MD CHEMISTRY & BLOOD GAS ORDERA BLES Final Result [facility] [address] [place] [address] * PAP TEST (10/19/2019 0:00 EST) Papanicolaou smear specimen (specimen) CERVIX UTERI STRUCTURE / Unknown us Denice Martinez MD PATHOLOGY ORDERABLES Final R esult [facility] documented in this encounter Visit Diagnoses [...] documented as of this encounter Care Teams Compressor Engineer Relationship Specialty Start Date End Date Comfort Zelaya NP [address] [place] [phone] PCP - General Family Medicine - Primary Care 03/08/22 documented as of this encounter
--- OUTSIDE RECORDS SUMMARY | 2024-08-23 23:30 | XMS_ITS | Encounter Summary ---
Author Organization [facility] Address [address] [place] [address] Care Team Providers Care Plant Protection Officer Name Role Phone Comfort Zelaya NP Primary Care Provider [phone] Encounter Details Date Type Department Care Team (Late st Contact Info) Description 04/25/2023 Orders Only [facility] OBGYN Services - [address] [address] Comfort Garcia, DAXA Bee sting (Primary Dx) [...] Refills Last Filled Start Date End Date EPINEPHrine (EPIPEN) 0.3 mg/0.3 mL injectionIndication s:Bee [...] documented as of this encounter Care Teams Plant Protection Officer Relationship Specialty Start Date End Date Comfort Zelaya NP [address] [place] [phone] PCP - General Family Medicine - Primary Care 03/08/22 documented as of this encounter
--- OUTSIDE RECORDS SUMMARY | 2024-08-23 23:30 | XMS_ITS | Encounter Summary ---
Author Organization [facility] Address [address] [place] [address] Care Team Providers Care Plant Pathologist Name Role Phone Comfort Zelaya NP Primary Care Provider [phone] Encounter Details Date Type Department Care Team (Late st Contact Info) Description 07/07/2023 Lab Requisition [facility] Pathology & Laboratory Medicine - [address] [address] Outr Resulting Lab, Provider Social History Tobacco [...] 2.8 - 5.3 pg/mL 07/07/2023 18:10 EDT [facility] Blood VENOUS BLOOD / Unknown 07/06/2023 15:25 EDT 07/07/2023 17:36 EDT us Provider Outr Resulting Lab CHEMISTRY & BLOOD GA S ORDERABLES Final Result Performing Organization Address City/State/[facility] Co de Phone Number [facility] [address] [place] [address] documented in this encounter Visit Diagnoses Not on filedocumented in this encounter Care Teams Plant Pathologist Relationship Specialty Start Date End Date Comfort Zelaya NP [address] [place] [phone] PCP - General Family Medicine - Primary Care 03/08/22 documented as of this encounter
--- OUTSIDE RECORDS SUMMARY | 2024-08-23 23:30 | XMS_ITS | Clinical Summary ---
Author Organization [facility] Address [address] [place] [address] Care Team Providers Care Merchandise Director Name Role Phone Comfort Zelaya NP Primary Care Provider [phone] Allergies Active Allergy Reactions Criticality Noted Date Comments Adhesive 05/14/2014 Had bad reaction to Steri-Strips. Not sure of full allergy. Hymenoptera Allergenic Extract 05/21/2013 Massive swelling Penicillins Anaphylaxis High 11/12/2009 Propranolol Shortness Of Breath 08/14/2010 Sulfa (Sulfonamide Antibiotics) Hives 11/12/2009 Medications ibuprofen (MOTRIN) 800 mg tablet Take 1 Tablet by mouth every 6 hours as needed for Pain. Active Thyroid, Pork, (ARMOUR THYROID) 180 mg tabletIndicatio ns:Hypothyroidi sm, iatrogenic Take 1 Tablet by mouth daily. 30 Tablet 1 2 Active Additional Information Patient taking differently: 90 mgoral DAILY, Reported on 10/28/2023 EPINEPHrine (EPIPEN) 0.3 mg/0.3 mL injectionIndica tions:Bee sting Inject 0.3 mL into the muscle once as needed for up to 1 dose (Bee Allergy). 2 Each 5 3 Active methylphenidate HCl 36 mg CR tablet Take 54 mg by mouth daily. Daily Max: 54 mg Active norethindrone (MICRONOR) 0.35 mg tablet Take 1 Tablet by mouth daily. 84 Tablet 5 4 Active Active Problems Problem Noted Date Diagnosed Date Kidney scarring 07/31/2018 Overview (07/31/2018): Right, noted on prior imaging, pt reports functions at 30% Hypothyroidism, iatrogenic 08/14/2010 Overview (03/29/2022): Thyroid pork 180mg daily Graves' disease 11/14/2009 Overview (08/14/2010): S/p radioactive iodine 10 mCi, 10/17 Hypertensive disorder 11/14/2009 Acute pyelonephritis 08/25/2005 Overview (06/25/2013): Evidence of right renal scarring on CT 06/2013. 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 Hypothyroidism 02/15/2003 11/14/2009 Asthma 09/23/1994 09/04/2014 Overview (11/14/2009): Mild intermittent Encounters Date Type Department Care Team Description 07/03/2024 Lab Requisition [facility] Pathology & Laboratory Medicine - [address] [address] Outr Resulting Lab, Provider from Last 3 Months Immunizations Name Administration Dates Next Due Covid-19 [...] = 0.6 oz pur e alcohol) [facility] [place] Answer Date Recorded In the past 12 months has e [employer], gas, oil, or water [employer] threatened to shut off services in your [...] Directive 1999 Hepatitis B Vaccine (1 of - + 3-dose series) 02/06/2000 Depression Screening 06/25/2021 06/25/2020 COVID-19 Vaccine (2023- season) 2024 10/23/2021, 01/06/2021 Breast Cancer Screening 08/17/2024 08/17/2022 Lipid Profile Screening (Cholesterol) 10/19/2024 10/19/2019 Social Determinants Of Health (SDOH) 10/28/2024 10/28/2023, 10/28/2023, 06/25/2020 Preventive Care Visit 10/28/2025 10/28/2023 , 08/27/2022 Pap Smear (Cervical Cancer Screening) 10/28/2026 10/28/2023, 10/19/2019 Cervical Cancer Screening 10/28/2028 HPV/Cotest (Cervical Cancer Screening) 10/28/2028 10/28/2023, 10/28/2023 Tetanus (Adult) Immunization 06/25/2030, 02/13/2010, 03/14/1995 Pertussis (Adult) Immunization Completed 02/13/2010 RETIRED Cervical Cancer Screening Discontinued 10/28/2023, 10/19/2019 HPV Vaccines Aged Out No longer eligi ble based on patient's age to complete this topic Procedures Procedure Name Priority Date/Time Associated Diagnosis Comments T3, TOTAL Routine 07/02/2024 13:40 EDT PAP TEST Routine 10/28/2023 14:05 EST Well woman exam with routine gynecological exam MA BREAST DIAGNOSTIC ARIANNA BILATERAL Routine 08/17/2022 14:17 EST Mass of left breast, unspecified quadrant LIPID PROFILE (INCLUDES CHOLESTEROL, TRIGLYCERIDES, HDL, LDL) Routine 10/19/2019 from Last 3 Months or Most Recently Relevant to Health Maintenance Results * T3, TOTAL (07/02/2024 13:40 EDT) T3, Total 126 97 - 169 ng/dL 07/03/2024 17:59 EDT [facility] Blood VENOUS BLOOD / Unknown 07/02/2024 13:40 EDT 07/03/2024 17:09 EDT us Provider Outr Resulting Lab CHEMISTRY & BLOOD GA S ORDERABLES Final Result [facility] [address] [place] [id number] * PAP TEST (10/28/2023 14:05 EST) Specimens A. Cervix and/or Endocervix , ThinPrep Imaging System with Manual Evaluation 11/14/2023 19:11 [facility] Specimen Adequacy Satisfactory for Evaluation - transformation zone component present 11/14/2023 19:11 [facility] General Categorization Negative for intraepithelial lesion or malignancy 11/14/2023 19:11 [facility] Attestation . 11/14/2023 19:11 [facility] at 1911 Clinical History Screening 11/14/19 19:11 [facility] HPV The result for the Human Papillomavirus (HPV) Detection-High Risk Types is Negative. No E6 or E7 mRNA is detected from HPV types 16,18,31,33,35,39 ,45,51,52,56,58,5 9,66, and 68 by adjunct english instructor mediated amplification.Misty ting was performed on specimen [id number] and was resulted on 11/14/2023 1911 EST by LUAN, LAB INSTRUMENT RESULTS IN 11/14/2023 19:11 [facility] Performing Lab [facility] 11/14/2023 19:11 [facility] Scanned Images 11/14/2023 19:11 [facility] Pap Test CERVIX UTERI STRUCTURE / Unknown 10/28/2023 14:05 EST 10/31/2023 12:13 EST us Denice Martinez MD PATHOLOGY ORDERABLES Final R esult [facility] [address] [place] [address] * MA BREAST DIAGNOSTIC ARIANNA BILATERAL (08/17/2022 [...] of any clinically suspicious palpable finding. The heating mechanic discussed the radiologist's interpretation and follow [...] is seen. Denice Martinez MD IMG MAMMOGRAPHY ORDERABLES F inal Result * LIPID PROFILE (INCLUDES CHOLESTEROL, TRIGLYCERIDES, HDL, [...] 10/19/2019 Denice Martinez MD CHEMISTRY & BLOOD GAS ORDERA BLES Final Result POINT OF CARE [facility] from Last 3 Months or Most Recently Relevant to Health Maintenance Insurance Advance Directives For more information, please contact: [phone] * Full Code (Latest Code Status on File) Date Activated Date Inactivated Comments 04/19/2014 9:24 04/19/2014 18:04 Care Teams Merchandise Director Relationship Specialty Start Date End Date Comfort Zelaya NP [address] [place] [phone] PCP - General Family Medicine - Primary Care 03/08/22
--- OUTSIDE RECORDS SUMMARY | 2024-08-23 23:30 | XMS_ITS | Referral Summary ---
Author Organization [facility] Address [address] [place] [address] Care Team Providers Care Educational Advisor Name Role Phone Comfort Zelaya NP Primary Care Provider [phone] Encounters Date Type Department Care Team Description 07/03/2024 Lab Requisition [facility] Pathology & Laboratory Medicine - [address] [address] Outr Resulting Lab, Provider from Last 3 Months Allergies Active Allergy Reactions Criticality Noted Date [...] Asthma 09/23/1994 09/04/2014 Overview (11/14/2009): Mild intermittent Immunizations Name Administration Dates Next [...] drink = 0.6 oz pur e alcohol) [facility] Utilities Answer Date [...] place to sleep or slept in a alf (including now)? No 10/28/2023 Interpersonal Safety Answer [...] EDT Temperature 36.4 ??C (97.5 ??F) 06/25/2020 09 EDT Respiratory Rate 16 06/25/2020 09 EDT Oxygen Saturation 99% 02/17/2015 1922 EDT Inhaled Oxygen Concentration - - Weight 73.7 kg (162 lb 6.4 oz) 10/28/[address] Height 164.6 cm (5' 4.8) 10/28/2023 1338 EST Body Mass Index 27.19 10/28/2023 1338 EST Functional Status * Because of a physical, mental, or emotional condition, does this person have difficulty doing errands alone such as visiting a doctor's office or shopping? Answer Date of Assessment Author No 07/31/2018 9:46 EDT Mental Status * Because of a physical, mental, or emotional condition, does this person have serious difficulty concentrating, remembering, or making decisions? Answer Entry Date Author No 07/31/2018 9:46 EDT Plan of Treatment Not on file Procedures [...] 97 - 169 ng/dL 07/03/2024 17:59 EDT [facility] Blood VENOUS BLOOD / Unknown 07/02/2024 13:40 EDT 07/03/2024 17:09 EDT us Provider Outr Resulting Lab CHEMISTRY & BLOOD GA S ORDERABLES Final Result Performing Organization Address City/[facility]/ZIP Co de Phone Number [facility] [address] [place] [address] * PAP TEST (10/28/2023 14:05 EST) Specimens A. Cervix and/or Endocervix , ThinPrep Imaging System with Manual Evaluation 11/14/2023 19:11 [facility] Specimen Adequacy Satisfactory for Evaluation - transformation zone component present 11/14/2023 19:11 [facility] General Categorization Negative for intraepithelial lesion or malignancy 11/14/2023 19:11 [facility] Attestation . 11/14/2023 19:11 [facility] at 1911 Clinical History Screening 11/14/19 19:11 [facility] HPV The result for the Human Papillomavirus (HPV) Detection-High Risk Types is Negative. No E6 or E7 mRNA is detected from HPV types 16,18,31,33,35,39 ,45,51,52,56,58,5 9,66, and 68 by nitrogen operator mediated amplification.Misty ting was performed on specimen [id number] and was resulted on 11/14/2023 1911 EST by LUAN, LAB INSTRUMENT RESULTS IN 11/14/2023 19:11 [facility] Performing Lab [facility] 11/14/2023 19:11 [facility] Scanned Images 11/14/2023 19:11 [facility] Pap Test CERVIX UTERI STRUCTURE / Unknown 10/28/2023 14:05 EST 10/31/2023 12:13 EST Denice Martinez MD PATHOLOGY ORDERABLES Final R esult Performing Organization Address City/[facility]/ZIP Co de Phone Number [facility] [address] [place] [address] * MA BREAST DIAGNOSTIC ARIANNA BILATERAL (08/17/2022 [...] of any clinically suspicious palpable finding. The revenue stamper discussed the radiologist's interpretation and follow up [...] cystic mass is seen. Denice Martinez MD IM MAMMOGRAPHY ORDERABLES F inal Result * LIPID [...] ORDERA BLES Final Result POINT OF CARE [facility] from Last 3 Months or Most Recently Relevant to Health Maintenance Insurance Advance Directives For more information, please contact: [phone] * Full Code (Latest Code Status on File) Date Activated Date Inactivated Comments 04/19/2014 9:24 04/19/2014 18:04 Care Teams Educational Advisor Relationship Specialty Start Date End Date Comfort Zelaya NP [address] [place] [phone] PCP - General Family Medicine - Primary Care 03/08/22
--- OUTSIDE RECORDS SUMMARY | 2024-08-23 23:30 | XMS_ITS | Encounter Summary ---
Author Organization [facility] Address [address] [place] [address] Care Team Providers Care Die Out Worker Name Role Phone Comfort Zelaya NP Primary Care Provider [phone] Encounter Details Date Type Department Care Team (Late st Contact Info) Description 05/18/2023 Lab Requisition [facility] Pathology & Laboratory Medicine - [address] [address] Outr Resulting Lab, Provider Social History Tobacco [...] 2.8 - 5.3 pg/mL 05/18/2023 22:11 EDT [facility] Blood VENOUS BLOOD / Unknown 05/18/2023 11:40 EDT 05/18/2023 21:35 EDT us Provider Outr Resulting Lab CHEMISTRY & BLOOD GA S ORDERABLES Final Result Performing Organization Address City/State/[facility] Co de Phone Number [facility] [address] [place] [address] documented in this encounter Visit Diagnoses Not on filedocumented in this encounter Care Teams Die Out Worker Relationship Specialty Start Date End Date Comfort Zelaya NP [address] [place] [phone] PCP - General Family Medicine - Primary Care 03/08/22 documented as of this encounter
--- OUTSIDE RECORDS SUMMARY | 2024-08-23 23:31 | XMS_ITS | Encounter Summary ---
Author Organization [facility] Address [address] [place] [address] Care Team Providers Care Silk Washing Machine Operator Name Role Phone Shannan Vieyra MD Primary Care Provider Unavail able Reason for Visit * Reason Onset Date Comments Tick Removal 02/21/2016 Encounter Details Date Type Department Care Team (Late st Contact Info) Description 02/21/[address] [facility] Family Medicine [address] [id number] Pranay Cardenas MD [address] [place] [phone] Tick Removal Social History Tobacco Use Types Packs/Day Years Used Date Smoking Tobacco: Never Smokeless Tobacco: Never Alcohol Use Standard Drinks/Week Comments No 0 (1 standard drink = 0.6 oz pur e alcohol) Comments No Sex and Gender Information Value Date Recorded Sex Assigned at Not on file Legal Sex Female 18:04 EST Gender Identity Not on file Sexual Orientation Not on file documented as of this encounter Miscellaneous Notes * Telephone Encounter - Pranay Cardenas MD - 02/21/2016 678 EDT Called by patient regarding tick bite. [...] on filedocumented in this encounter Care Teams Silk Washing Machine Operator Relationship Specialty Start Date End Date Shannan Vieyra MD PCP - General 04/08/09 03/15/19 documented as of this encounter
--- OUTSIDE RECORDS SUMMARY | 2024-08-23 23:31 | XMS_ITS | Encounter Summary ---
Author Organization [facility] Address [address] [place] [address] Care Team Providers Care Avp Name Role Phone Shannan Vieyra MD Primary Care Provider Unavail able Reason for Visit * Reason Comments Otalgia Encounter Details Date Type Department Care Team (Latest Contact Info) Description 02/17/2015 18:21 EDT - 02/17/2015 20:10 EDT Hospital Encounter [facility] - [address] [phone] Miguel Rogel MD [address] [place] [phone] Otitis media, right (Primary Dx) Discharge [...] 129/98 02/17/2015 1857 EDT Pulse 99 02/17/2015 1857 EDT Temperature 37 ??C (98.6 ??F) 02/17/2015 [...] sent through Care Everywhere. * OTITIS MEDIA (PERUVIAN) documented in this encounter Medications at Time of Discharge ibuprofen (MOTRIN) 800 mg tablet Take 1 Tablet by mouth every 6 hours as needed for Pain. azithromycin (ZITHROMAX Z-DANITA) 250 mg tablet Take 2 tabs today and 1 tab on days 2 through 5 6 Tab 0 02/17/2015 5 doxycycline (VIBRA-TABS) 100 mg tabletIndications:Ce llulitis Take 1 Tab by mouth 2 times daily for 7 days. 14 Tab 0 05/21/2013 6 EPINEPHrine (EPIPEN) 0.3 mg/0.3 mL (1:1,000) injectionIndications :Bee sting Inject 0.3 mL into the muscle once as needed for up to 1 dose (allergic reaction). 1 Syringe 6 09/04/2014 6 levonorgestrel-ethin yl estradiol (SEASONALE) 0.15-30 mg-mcg per tablet Take 1 Tab by mouth daily. 0 lisinopril-hydrochlo rothiazide (PRINZIDE, ZESTORETIC) 20-12.5 mg per tabletIndications:Hy pertensive disorder Take 1 Tab by mouth daily. 90 Tab 4 09/04/2014 6 pseudoephedrine (SUDAFED) 60 mg tablet Take 60 mg by mouth every 6 hours. Reported on 08/24/2016 6 thyroid, Pork, (ARMOUR THYROID) 120 mg tabletIndications:Gr aves' disease,Other iatrogenic hypothyroidism Take 1 Tab by mouth daily. 90 Tab 4 09/04/2014 5 documented as of this encounter Ordered Prescriptions Prescription Sig Dispense Quantity Refills Last Filled Start Date End Date azithromycin (ZITHROMAX Z-DANITA) 250 mg tablet Take 2 tabs today and 1 tab on days 2 through 5 6 Tab 0 02/17/2015 5 documented in this encounter Discharge Disposition Disposition [...] of further medications. Upon departure from [facility], the patient's pain was 6 on a zero to ten scale. Condition at departure from the [facility] : Stable Final diagnoses: Otitis media, right Right sided otitis media in the setting of recent URI symptoms. Patient has a penicillin and Bactrim allergy. She was treated with a course of Zithromax. Reviewed symptomatic treatment and indications for follow up. See discharge instructions. No supervision required. [facility] 02/17/2015 21:09 * Mitzi Esteban RN [...] may reflect changes made after this encounter. ibuprofen (MOTRIN) 800 mg tablet Take 1 Tablet by mouth every 6 hours as needed for Pain. pseudoephedrine (SUDAFED) 60 mg tablet Take 60 mg by mouth every 6 hours. Reported on 08/24/2016 08/24/2016 added in this encounter Care Teams Avp Relationship Specialty Start Date End Date Shannan Vieyra MD PCP - General 04/08/09 03/15/19 documented as of this encounter
--- OUTSIDE RECORDS SUMMARY | 2024-08-23 23:31 | XMS_ITS | Encounter Summary ---
Author Organization [facility] Address [address] [place] [address] Care Team Providers Care Teacher Of The Sight Impaired Name Role Phone Shannan Vieyra MD Primary Care Provider Unavail able Reason for Visit * Reason Comments Hypertension medication refills f or thyroid Encounter Details Date Type Department Care Team (Late st Contact Info) Description 09/04/2014 10:30 EST Office Visit [facility] Family Medicine [place] [phone] Leida Cerda PA-C [address] [place] [phone] Other iatrogenic hypothyroidism (Primary Dx); Bee sting; [...] Refills Last Filled Start Date End Date thyroid, Pork, (ARMOUR THYROID) 120 mg tabletIndications:Gr aves' disease,Other iatrogenic hypothyroidism Take 1 Tab by mouth daily. 90 Tab 4 09/04/2014 5 EPINEPHrine (EPIPEN) 0.3 mg/0.3 mL (1:1,000) injectionIndications :Bee sting Inject 0.3 mL into the muscle once as needed for up to 1 dose (allergic reaction). 1 Syringe 6 09/04/2014 6 lisinopril-hydrochlo rothiazide (PRINZIDE, ZESTORETIC) 20-12.5 mg per tabletIndications:Hy pertensive disorder Take 1 Tab by mouth daily. 90 Tab 4 09/04/2014 6 documented in this encounter Progress Notes * [...] Had recent labs. Sees Dr. Martinez for chicken dresser care. 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 Patient Active Problem List Diagnosis ??? [...] mouth daily. (increase from 105mg) - Thyroid [place] (3 Months); Future Bee sting - EPINEPHrine [...] documented as of this encounter Care Teams Teacher Of The Sight Impaired Relationship Specialty Start Date End Date Shannan Vieyra MD PCP - General 04/08/09 03/15/19 documented as of this encounter
--- OUTSIDE RECORDS SUMMARY | 2024-08-23 23:31 | XMS_ITS | Encounter Summary ---
Author Organization [facility] Address [address] [place] [address] Care Team Providers Care Bow String Maker Name Role Phone Shannan Vieyra MD Primary Care Provider Unavail able Encounter Details Date Type Department Care Team (Late st Contact Info) Description 09/02/2014 Phlebotomy Only [facility] - [address] [address] Manager Managed Care, Outpatient Graves disease; Other iatrogenic hypothyroidism; Encounter [...] 140 136 - 145 mEq/L 09/02/2014 18:36 [facility] Potassium 4.4 3.5 - 5.0 mEq/L 09/02/2014 18:36 [facility] Chloride 102 96 - 110 mEq/L 09/02/2014 18:36 [facility] CO2 25 24 - 32 mEq/L 09/02/2014 18:36 [facility] BUN 19 10 - 26 mg/dl 09/02/2014 18:36 [facility] Creatinine 0.81 0.52 - 1.04 mg/dl 09/02/2014 18:36 [facility] GFR, Calculated >60 >60 ml/min/1.7 3m2 09/02/2014 18:36 [facility] Calcium 10.2 8.5 - 10.5 mg/dl 09/02/2014 18:36 [facility] Calculated Calcium 10.2 8.5 - 10.5 mg/dl 09/02/2014 18:36 [facility] Glucose, Serum 76 70 - 100 mg/dl 09/02/2014 18:36 [facility] Fasting? YES 09/02/2014 15:45 [facility] Blood specimen (specimen) BLOOD SPECIMEN / Unknown 09/02/2014 15:45 EST 09/02/2014 18:01 EST us Shannan Vieyra MD CHEMISTRY & BLOOD GAS ORDERABL ES Final Result Performing Organization Address City/State/[facility] Co de Phone Number [facility] [address] [place] [address] * VITAMIN D (25,OH) (09/02/2014 15:45 EST) 25OH Vitamin D Tot 21.5 ng/ml 09/03/2014 11:45 [facility] Comment: Reference Range: Deficient = <10 ng/ml Insufficient = 10-30 ng/ml Sufficient = 30-100 ng/ml Toxic = >100 ng/ml Blood specimen (specimen) BLOOD SPECIMEN / Unknown 09/02/2014 15:45 EST 09/02/2014 18:01 EST us Shannan Vieyra MD CHEMISTRY & BLOOD GAS ORDERABL ES Final Result Performing Organization Address City/[facility]/ZIP Co de Phone Number [facility] [address] [place] [address] * (ABNORMAL) THYROID CASCADE (09/02/2014 15:45 EST) TSH 25.78(H) 0.35 - 5.00 uIU/ml 09/02/2014 20:23 EST [facility] Comment: TSH cascade is not recommended for patients in which pituitary or hypothalamic disorders are suspected. Blood specimen (specimen) BLOOD SPECIMEN / Unknown 09/02/2014 15:45 EST 09/02/2014 18:01 EST us Shannan Vieyra MD CHEMISTRY & BLOOD GAS ORDERABL ES Final Result Performing Organization Address [facility] Co de Phone Number [facility] [address] [place] [address] documented in this encounter Visit Diagnoses Diagnosis Graves disease Toxic diffuse goiter without mention of thyrotoxic crisis or storm Other iatrogenic hypothyroidism Encounter for vitamin deficiency screening Screening for other and unspecified endocrine, nutritional, metabolic, and immunity disorders HTN (hypertension) Unspecified essential hypertension documented in this encounter Care Teams Bow String Maker Relationship Specialty Start Date End Date Shannan Vieyra MD PCP - General 04/08/09 03/15/19 documented as of this encounter
--- OUTSIDE RECORDS SUMMARY | 2024-08-23 23:31 | XMS_ITS | Encounter Summary ---
Author Organization [facility] Address [address] [place] [address] Care Team Providers Care Sfdc Consultant Name Role Phone Shannan Vieyra MD Primary Care Provider Unavail able Reason for Visit * Reason Comments Wound Check red and itchy Encounter Details Date Type Department Care Team (Late st Contact Info) Description 04/30/2014 10:45 EDT Office Visit [facility] General Surgery - [address] [phone] Ashwin Maradiaga MD [address] [place] [address], [address] [place] [phone] S/P laparoscopic cholecystectomy (Primary Dx) [...] status documented in this encounter Care Teams Sfdc Consultant Relationship Specialty Start Date End Date Shannan Vieyra MD PCP - General 04/08/09 03/15/19 documented as of this encounter
--- OUTSIDE RECORDS SUMMARY | 2024-08-23 23:31 | XMS_ITS | Encounter Summary ---
Author Organization [facility] Address [address] [place] [address] Care Team Providers Care Cherry Sorter Name Role Phone Comfort Zelaya NP Primary Care Provider [phone] Reason for Referral * Radiology Services (Routine/Next Available) - Authorization Not Required Specialty Diagnoses / Procedures Referred By Contac t Referred To Contact Diagnoses Mass of left breast, unspecified quadrant Procedures US BREAST LIMITED LEFT US BREAST DIAGNOSTIC Denice Martinez MD Phone: tel: fax: [facility] Referral ID Status Reason Start Date Expiration Date Visits Requested Visits Authorized [id number] Authorization Not Required 2 1 1 Reason for Visit * Radiology Services (Routine/Next Available) - Authorization Not Required Specialty Diagnoses / Procedures [facility]erred To Contact Diagnoses Mass of left breast, unspecified quadrant Procedures US BREAST LIMITED LEFT US BREAST DIAGNOSTIC Denice Martinez MD Phone: tel: fax: [facility] Referral ID Status Reason Start Date Expiration Date Visits Requested Visits Authorized [id number] Authorization Not Required 2 1 1 Encounter Details Date Type Department Care Team (Latest Contact Info) Description 08/17/2022 13:50 EST - 08/17/2022 23:59 EST Hospital Encounter [facility] Breast Imaging Ultrasound - [facility] [address], [place] [id number] Mass of left breast, unspecified quadrant Discharge [...] 07/31/2018 9:46 EDT documented in this encounter Medications at Time of Discharge ibuprofen (MOTRIN) 800 mg tablet Take 1 Tablet by mouth every 6 hours as needed for Pain. EPINEPHrine (EPIPEN) 0.3 mg/0.3 mL injectionIndicati ons:Bee sting Inject 0.3 mL into the muscle once as needed for up to 1 dose (Bee Allergy). 2 Syringe 5 04/15/2020 04/25/2023 norethindrone (MICRONOR) 0.35 mg tablet Take 1 Tablet by mouth daily. 84 Tablet 1 05/20/2022 08/27/2022 Thyroid, Pork, (ARMOUR THYROID) 180 mg tabletIndications :Hypothyroidism, iatrogenic Take 1 Tablet by mouth daily. [...] of any clinically suspicious palpable finding. The automotive technology instructor discussed the radiologist's interpretation and follow up [...] No solid or cystic mass is seen. us Denice Martinez MD IMG US ORDERABLES Final Resu lt documented in this encounter Visit Diagnoses Diagnosis Mass of left breast, unspecified quadrant documented in this encounter Care Teams Cherry Sorter Relationship Specialty Start Date End Date Comfort Zelaya NP [address] [place] [phone] PCP - General Family Medicine - Primary Care 03/08/22 documented as of this encounter
--- OUTSIDE RECORDS SUMMARY | 2024-08-23 23:31 | XMS_ITS | Encounter Summary ---
Author Organization [facility] Address [address] [place] [address] Care Team Providers Care Filter Press Tender Head Name Role Phone Shannan Vieyra MD Primary Care Provider Unavail Leida [place] PA-C Primary Care Provi melvin Comfort Zelaya NP Primary Care Provider [phone] Reason for Visit * Reason Onset Date Comments Medications Refill 12/24/2017 Encounter Details Date Type Department Care Team (Late st Contact Info) Description 12/24/2017 Refill [facility] Family Medicine - [address] [phone] Leida Cerda PA-C 402 [facility] [address] [place], [place] [phone] Medications Refill Social History Tobacco Use Types [...] meds with pt. Refills already sent to [facility] 12/23/17 for 90-day supply. documented in this encounter Plan of Treatment Not on file documented as of this encounter Visit Diagnoses Diagnosis Hypothyroidism, iatrogenic Other iatrogenic hypothyroidism documented in this encounter Care Teams Filter Press Tender Head Relationship Specialty Start Date End Date Shannan Vieyra MD PCP - General 04/08/09 03/15/19 Leida Cerda PA-C PCP - General 03/16/19 03/07/22 Comfort Zelaya NP [address] [place] [phone] PCP - General Family Medicine - Primary Care 03/08/22 documented as of this encounter
--- OUTSIDE RECORDS SUMMARY | 2024-08-23 23:31 | XMS_ITS | Encounter Summary ---
Author Organization [facility] Address [address] [place] [address] Care Team Providers Care Instructor Decorating Name Role Phone Leida Cerda PA-C Primary Care Provi melvin Encounter Details Date Type Department Care Team (Late st Contact Info) Description 10/24/2019 Abstract [facility] Medicine [address] [phone] Leida Cerda PA-C [address] [facility] [address] [place] [address] Social History Tobacco Use Types [...] [facility] Blood VENOUS BLOOD / Unknown 10/19/2019 us Denice Martinez MD CHEMISTRY & BLOOD GAS ORDERA BLES Final Result POINT OF CARE [facility] documented in this encounter Visit Diagnoses Not on filedocumented in this encounter Care Teams Instructor Decorating Relationship Specialty Start Date End Date Leida Cerda PA-C PCP - General 03/16/19 03/07/22 documented as of this encounter
--- OUTSIDE RECORDS SUMMARY | 2024-08-23 23:31 | XMS_ITS | Encounter Summary ---
Author Organization [facility] Address [address] [place] [address] Care Team Providers Care Lipstick Molder Name Role Phone Comfort Zelaya NP Primary Care Provider [phone] Reason for Visit * Reason Onset Date Comments Appointment Related 07/28/2022 Encounter Details Date Type Department Care Team (Late st Contact Info) Description 07/28/2022 Telephone [facility] Breast Imaging Mammography - [address] [address] Alisa Robb Appointment Related Social History Tobacco [...] encounter Miscellaneous Notes * Telephone Encounter - BiAdrianna stevea - 07/28/2022 1514 EDT Patient left a message asking to schedule breast imaging. I called the patient back but had to leave a message. documented in this encounter Plan of Treatment Not on file documented as of this encounter Visit Diagnoses Not on filedocumented in this encounter Care Teams Lipstick Molder Relationship Specialty Start Date End Date Comfort Zelaya NP [address] [place] [phone] PCP - General Family Medicine - Primary Care 03/08/22 documented as of this encounter
--- OUTSIDE RECORDS SUMMARY | 2024-08-23 23:31 | XMS_ITS | Encounter Summary ---
Author Organization [facility] Address [address] [place] [address] Care Team Providers Care Poultry Dresser Name Role Phone Shannan Vieyra MD Primary Care Provider Unavail able Encounter Details Date Type Department Care Team (Latest Contact Info) Description 09/02/2014 15:38 EST - 09/02/2014 23:59 EST Hospital Encounter [address] [address] Unknown, Provider, MD Discharge Disposition: Home or Self Care [...] this encounter Medications at Time of Discharge doxycycline (VIBRA-TABS) 100 mg tabletIndication s:Cellulitis Take 1 Tab by mouth 2 times daily for 7 days. 14 Tab 0 05/21/2013 02/26/2016 EPINEPHrine (EPIPEN) 0.3 mg/0.3 mL (1:1,000) injectionIndicat ions:Bee sting Inject 0.3 mL into the muscle once as needed (allergic reaction) for 1 dose. 1 Syringe 6 05/21/2013 09/04/2014 HYDROcodone-acet aminophen (NORCO) 5-325 mg tablet Take 1 Tab by mouth every 6 hours as needed for Pain. 15 Tab 0 04/19/2014 09/04/2014 levonorgestrel-e thinyl estradiol (SEASONALE) 0.15-30 mg-mcg per tablet Take 1 Tab by mouth daily. 06/25/2020 lisinopril-hydro chlorothiazide (PRINZIDE, ZESTORETIC) 20-12.5 mg per tablet Take [...] Code Departure Means Destination Home or Self Correction documented in this encounter Plan of Treatment Not on file documented as of this encounter Procedures Procedure Name Priority Date/Time Associated Diagnosis Comments T4, FREE REFLEX Routine 09/02/2014 15:45 EST documented in this encounter Results * (ABNORMAL) T4, FREE REFLEX (09/02/2014 15:45 EST) Free T4 0.6(L) 0.8 - 1.8 ng/dl 09/02/2014 20:50 EST [facility] BLOOD SPECIMEN / Unknown 09/02/2014 15:45 EST 09/02/2014 18:01 EST us Shannan Vieyra MD CHEMISTRY & BLOOD GAS ORDERABL ES Final Result [facility] [address] [place] [phone] documented in this encounter Visit Diagnoses Not on filedocumented in this encounter Care Teams Poultry Dresser Relationship Specialty Start Date End Date Shannan Vieyra MD PCP - General 04/08/09 03/15/19 documented as of this encounter
--- OUTSIDE RECORDS SUMMARY | 2024-08-23 23:31 | XMS_ITS | Encounter Summary ---
Author Organization [facility] Address [address] [place] [address] Care Team Providers Care Supervisor Inspecting Name Role Phone Shannan Vieyra MD Primary Care Provider Unavail able Encounter Details Date Type Department Care Team (Late st Contact Info) Description 08/24/2016 Results Only [facility] Family Medicine - [place] [phone] Leida Cerda PA-C 402 [facility] [address] [place], [place] [address] Social History Tobacco Use Types Packs/Day Years [...] 0.8 - 1.8 ng/dl 08/24/2016 21:51 EST [facility] BLOOD SPECIMEN / Unknown 08/24/2016 14:51 EST 08/24/2016 19:34 EST us Leida Cerda PA-C CHEMISTRY & BLOOD G ORDERABLES Final Result [facility] [address] [place] [address] documented in this encounter Visit Diagnoses Not on filedocumented in this encounter Care Teams Supervisor Inspecting Relationship Specialty Start Date End Date Shannan Vieyra MD PCP - General 04/08/09 03/15/19 documented as of this encounter
--- OUTSIDE RECORDS SUMMARY | 2024-08-23 23:31 | XMS_ITS | Encounter Summary ---
Author Organization [facility] Address [address] [place] [address] Care Team Providers Care Commercial Manager Name Role Phone Shannan Vieyra MD Primary Care Provider Unavail able Reason for Visit * Reason Comments Follow-up allergic reaction Encounter Details Date Type Department Care Team (Late st Contact Info) Description 05/14/2014 14:45 EDT Office Visit [facility] General Surgery - [address] [phone] Ashwin Maradiaga MD [address] [place] [address], [address] [place] [phone] S/P laparoscopic cholecystectomy (Primary Dx) [...] status documented in this encounter Care Teams Commercial Manager Relationship Specialty Start Date End Date Shannan Vieyra MD PCP - General 04/08/09 03/15/19 documented as of this encounter
--- OUTSIDE RECORDS SUMMARY | 2024-08-23 23:31 | XMS_ITS | Encounter Summary ---
Author Organization [facility] Address [address] [place] [address] Care Team Providers Care Lead Python Developer Name Role Phone Comfort Zelaya NP Primary Care Provider [phone] Encounter Details Date Type Department Care Team (Late st Contact Info) Description 04/25/2022 9:45 EDT Phlebotomy Only [facility] 2 Phlebotomy [address] [place] [address] Cadastral Engineer, Acc Phlebotomy Hypothyroidism, iatrogenic Social History Tobacco [...] 97 - 169 ng/dL 04/25/2022 12:01 EDT [facility] Blood VENOUS BLOOD / Unknown Venipuncture / Unknown 04/25/2022 9:49 EDT 04/25/2022 9:51 EDT Comfort Zelaya DECK SUPERVISOR CHEMISTRY & BLOOD GAS ORDERABLES Final Result Performing Organization Address City/[facility]/ZIP Co de Phone Number [facility] [address] [place] [address] * T4 FREE (04/25/2022 9:49 EDT) Pathologist [facility] T4, Free 1.8 0.8 - 2.2 ng/dL 04/25/2022 11:21 EDT [facility] Blood VENOUS BLOOD / Unknown Venipuncture / Unknown 04/25/2022 9:49 EDT 04/25/2022 9:51 EDT Comfort Zelaya DECK SUPERVISOR CHEMISTRY & BLOOD GAS ORDERABLES Final Result [facility] [address] [place] [address] * (ABNORMAL) THYROID CASCADE (04/25/2022 9:49 EDT) TSH <0.02(L) 0.47 - 4.68 mIU/L 04/25/2022 10:46 EDT [facility] Blood VENOUS BLOOD / Unknown Venipuncture / Unknown 04/25/2022 9:49 EDT 04/25/2022 9:51 EDT Narrative [facility] - 04/25/2022 10:46 EDT NOTE: The results of this assay can be falsely lowered due to the consumption of Biotin. us Comfort Zelaya NP CHEMISTRY & BLOOD GAS ORDERABLES Final Result Performing Organization Address City/State/[facility] Co de Phone Number [facility] [address] [place] [address] documented in this encounter Visit Diagnoses Diagnosis Hypothyroidism, iatrogenic Other iatrogenic hypothyroidism documented in this encounter Care Teams Lead Python Developer Relationship Specialty Start Date End Date Comfort Zelaya NP [address] [place] [phone] PCP - General Family Medicine - Primary Care 03/08/22 documented as of this encounter
--- OUTSIDE RECORDS SUMMARY | 2024-08-23 23:31 | XMS_ITS | Encounter Summary ---
Author Organization [facility] Address [address] [place] [address] Care Team Providers Care Knit Tubing Dyer Name Role Phone Shannan Vieyra MD Primary Care Provider Unavail able Reason for Visit * Reason Comments Follow-up here for follow up; due for labs Encounter Details Date Type Department Care Team (Late st Contact Info) Description 07/31/2018 9:30 EDT Office Visit [place] [phone] Leida Cerda PA-C [address] [phone] Hypothyroidism, iatrogenic (Primary Dx); Essential hypertension Discharge [...] - documented in this encounter Functional Status * [...] 07/31/2018 9:46 EDT documented in this encounter Discharge Diagnoses Diagnosis I10 Essential (primary) hypertension-I10[ICD-10-CM] 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0 mEq/L 07/31/2018 14:23 [facility] Chloride 107 96 - 110 mEq/L 07/31/2018 14:23 [facility] CO2 25 22 - 32 mEq/L 07/31/2018 14:23 [facility] BUN 15 10 - 26 mg/dl 07/31/2018 14:23 [facility] Creatinine 0.87 0.52 - 1.04 mg/dl 07/31/2018 14:23 [facility] GFR, Calculated 85 >60 ml/min/1.7 3m2 07/31/2018 14:23 [facility] Comment: eGFR calculated using CKD-EPI equation for non Americans. Multiply eGFR by 1.16 for Americans. Calcium 9.6 8.5 - 10.5 mg/dl 07/31/2018 14:23 EDT [facility] Calculated Calcium 9.3 8.5 - 10.5 mg/dl 07/31/2018 14:23 EDT [facility] Glucose, Serum 93 70 - 100 mg/dl 07/31/2018 14:23 EDT [facility] Fasting? Unknown 07/31/2018 14:23 EDT [facility] Blood specimen (specimen) BLOOD SPECIMEN / Unknown 07/31/2018 10:18 EDT 07/31/2018 14:05 EDT Leida Cerda PA-C CHEMISTRY & BLOOD G ORDERABLES Final Result Performing Organization Address [facility] de Phone Number [facility] [address] [place] [address] * (ABNORMAL) THYROID CASCADE (07/31/2018 10:18 EDT) TSH 5.07(H) 0.47 - 4.68 uIU/ml 07/31/2018 14:59 EDT [facility] Comment: TSH cascade is not recommended for patients in which pituitary or hypothalamic disorders are suspected. The results of this assay can be falsely lowered due to the consumption of Biotin. Blood specimen (specimen) BLOOD SPECIMEN / Unknown 07/31/2018 10:18 EDT 07/31/2018 14:05 EDT us Leida Cerda PA-C CHEMISTRY & BLOOD G ORDERABLES Final Result Performing Organization Address [facility] Co de Phone Number [facility] [address] [place] [address] documented in this encounter Visit Diagnoses Diagnosis [...] documented as of this encounter Care Teams Knit Tubing Dyer Relationship Specialty Start Date End Date Shannan Vieyra MD PCP - General 04/08/09 03/15/19 documented as of this encounter
--- OUTSIDE RECORDS SUMMARY | 2024-08-23 23:31 | XMS_ITS | Encounter Summary ---
Author Organization [facility] Address [address] [place] [address] Care Team Providers Care Sack Cleaner Name Role Phone Shannan Vieyra MD Primary Care Provider Unavail able Reason for Visit * Reason Onset Date Comments Medications Refill 09/20/2015 Encounter Details Date Type Department Care Team (Late st Contact Info) Description 09/20/[address] [address] Shannan Vieyra MD Medications Refill Social History [...] Lee - 09/20/2015 0835 EST Medication(s) Requested: [place] [facility] Last Refill Date: 09/04/14 Last [...] hypothyroidism documented in this encounter Care Teams Sack Cleaner Relationship Specialty Start Date End Date Shannan Vieyra MD PCP - General 04/08/09 03/15/19 documented as of this encounter
--- OUTSIDE RECORDS SUMMARY | 2024-08-23 23:31 | XMS_ITS | Encounter Summary ---
Author Organization [facility] Address [address] [place] [address] Care Team Providers Care Manager Product Management Name Role Phone Shannan Vieyra MD Primary Care Provider Unavail able Reason for Visit * Reason Onset Date Comments Medication Problem 08/20/2016 Encounter Details Date Type Department Care Team (Late st Contact Info) Description 08/20/[address] [address] Shannan Vieyra MD Medication Problem Social History [...] Encounter - Leida Cerda PA - 08/24/2016 1508 EST See office note from today's visit * Telephone Encounter - Nani Dwyer RN - 08/23/2016 0916 EST Pt is hoping to speak to DT regarding insurance coverage of this med. Is there a reason she can't take synthroid? * Telephone Encounter - Milagros Parrish - 08/20/2016 0895 EST Pt is calling asking for a call back from Sallie Cerda.Pt states she got a letter in the mail from her insurance company stating they will no longer cover her thyroid meds. documented in this encounter Plan of Treatment Not on file documented as of this encounter Visit Diagnoses Not on filedocumented in this encounter Care Teams Manager Product Management Relationship Specialty Start Date End Date Shannan Vieyra MD PCP - General 04/08/09 03/15/19 documented as of this encounter
--- OUTSIDE RECORDS SUMMARY | 2024-08-23 23:31 | XMS_ITS | Encounter Summary ---
Author Organization [facility] Address [address] [place] [address] Care Team Providers Care Industrial Boilermaker Name Role Phone Shannan Vieyra MD Primary Care Provider Unavail able Reason for Visit * Reason Comments Tick Removal Follow up to Tick bi te, and treatment Encounter Details Date Type Department Care Team (Late st Contact Info) Description 02/26/2016 14:00 EDT Office Visit [facility] Family Medicine [address] [address] Pranay Vazquez NP [address] [place] [phone] Erythema migrans (Lyme disease) (Primary Dx) [...] Refills Last Filled Start Date End Date doxycycline (VIBRA-TABS) 100 mg tablet Take 1 [...] one dose she took a few days ago.[place] wierd the last time she took it [...] documented as of this encounter Care Teams Industrial Boilermaker Relationship Specialty Start Date End Date Shannan Vieyra MD PCP - General 04/08/09 03/15/19 documented as of this encounter
--- OUTSIDE RECORDS SUMMARY | 2024-08-23 23:31 | XMS_ITS | Encounter Summary ---
Author Organization [facility] Address [address] [place] [address] Care Team Providers Care Arch Support Technician Name Role Phone Comfort Zelaya NP Primary Care Provider [phone] Reason for Visit * Reason Onset Date Comments Medications Refill 05/19/2022 Encounter Details Date Type Department Care Team (Late st Contact Info) Description 05/19/2022 Telephone [facility] OBGYN Services - [address] [address] Denice Martinez MD [address] [place] [address], [address] [place] [phone] Medications Refill Social History Tobacco [...] described by patient: out of OCP, leaves town tomorrow, 05/20 at 1030 and needs refilled beforehand. Medication(s) Requested: Brandi Preferred Pharmacy: [facility] Is patient out of medication? Yes Is it ok to leave a detailed message? Yes Arianne Ortez 05/19/2022 16:56 documented in this encounter Plan of Treatment Not on file documented as of this encounter Visit Diagnoses Not on filedocumented in this encounter Care Teams Arch Support Technician Relationship Specialty Start Date End Date Comfort Zelaya NP [address] [place] [phone] PCP - General Family Medicine - Primary Care 03/08/22 documented as of this encounter
--- OUTSIDE RECORDS SUMMARY | 2024-08-23 23:31 | XMS_ITS | Encounter Summary ---
Author Organization [facility] Address [address] [place] [address] Care Team Providers Care Cotton Header Name Role Phone Shannan Vieyra MD Primary Care Provider Unavail able Encounter Details Date Type Department Care Team (Late st Contact Info) Description 08/01/2018 Orders Only [facility] Family Medicine - [place] [phone] Leida Cerda PA-C [address] [place] [address] [address] [place], [place] [phone] Hypothyroidism, iatrogenic (Primary Dx) Social History Tobacco [...] hypothyroidism documented in this encounter Care Teams Cotton Header Relationship Specialty Start Date End Date Shannan Vieyra MD PCP - General 04/08/09 03/15/19 documented as of this encounter
--- OUTSIDE RECORDS SUMMARY | 2024-08-23 23:31 | XMS_ITS | Encounter Summary ---
Author Organization [facility] Address [address] [place] [address] Care Team Providers Care Warper Creeler Name Role Phone Leida Man PA-C Primary Care Provi melvin Comfort Zelaya NP Primary Care Provider [phone] Reason for Visit * Reason Onset Date Comments Medications Refill 06/05/2020 Encounter Details Date Type Department Care Team (Late st Contact Info) Description 06/05/2020 Refill [facility] Medicine [address] [phone] Leida Man PA-C [address] [facility] [place] [address] [place], [place] [phone] Medications Refill Social History Tobacco Use Types Packs/Day Years Used Date Smoking Tobacco: Never Smokeless Tobacco: Never Alcohol Use Standard Drinks/Week Comments No 0 (1 standard drink = 0.6 oz pur e alcohol) Interpersonal Safety Answer Date Record ed Physically Hurt Never 05/11/2020 Verbally Threaten Not on file 05/11/2020 Comments No Sex and Gender Information Value [...] Filled Start Date End Date Thyroid, Pork, 240 mg tabletIndications:H ypothyroidism, iatrogenic Take 240 mg by mouth daily. [...] help her arrange. * Telephone Encounter - Franecs Christensen - 06/05/2020 1430 EDT Medication(s) Requested: Thyroid,Pork,240 mg tablet Preferred Pharmacy: [facility] Is patient out of medication?yes Last [...] documented as of this encounter Care Teams Warper Creeler Relationship Specialty Start Date End Date Leida Man PA-C PCP - General 03/16/19 03/07/22 Comfort Zelaya NP [address] [place] [phone] PCP - General Family Medicine - Primary Care 03/08/22 documented as of this encounter
--- OUTSIDE RECORDS SUMMARY | 2024-08-23 23:31 | XMS_ITS | Encounter Summary ---
Author Organization [facility] Address [address] [place] [address] Care Team Providers Care Prism Inspector Name Role Phone Shannan Vieyra MD Primary Care Provider Unavail able Reason for Visit * Reason Onset Date Comments Medications Refill 04/15/2016 Encounter Details Date Type Department Care Team (Late st Contact Info) Description 04/15/2016 Refill [facility] Medicine [address] [address] Shannan Vieyra MD Medications Refill Social History [...] Refills Last Filled Start Date End Date lisinopril-hydroch lorothiazide (PRINZIDE, ZESTORETIC) 20-12.5 mg per tablet Take 1 Tab by mouth daily. MUST BE SEEN IN OFFICE 90 Tab 0 04/15/2016 08/24/2016 thyroid, Pork, (ARMOUR THYROID) 120 mg tabletIndications: Graves' disease Take 1 Tab by mouth daily. 90 Tab 0 04/15/2016 05/20/2016 documented in this encounter Miscellaneous Notes * Telephone Encounter - Alisha Nino RN - 04/15/2016 0796 EDT Requested Prescriptions Signed Prescriptions Disp Refills [...] - 04/15/2016 1322 EDT Medication(s) Requested: Thyroid,Pork ([place] Thyroid)120 mg tablet takes one tab daily;dispense;90;rf;0;Lisinopril-hydrochlorothiazide takes one tab daily;dispense;90;rf;0 Pharmacy: [facility] Last Refill Date: 07.01.16 Last [...] documented as of this encounter Care Teams Prism Inspector Relationship Specialty Start Date End Date Shannan Vieyra MD PCP - General 04/08/09 03/15/19 documented as of this encounter
--- OUTSIDE RECORDS SUMMARY | 2024-08-23 23:31 | XMS_ITS | Encounter Summary ---
Author Organization [facility] Address [address] [place] [address] Care Team Providers Care Scale Mechanic Name Role Phone Leida Cerda PA-C Primary Care Provi melvin Reason for Visit * Reason Onset Date Comments Medications Refill 02/08/2020 Encounter Details Date Type Department Care Team (Late st Contact Info) Description 02/08/[address] [phone] Leida Cerda PA-C [address] [facility] [address] [place] [address] Medications Refill Social History Tobacco [...] Encounter - Veronica Han RN - 02/08/2020 0117 EDT Medication(s) Requested: Thyroid, pork Preferred Pharmacy: [facility] Is patient out of medication? Unknown Last Refill Date: 11/20/19 Last Visit Date with Ordering Provider: 09/05/18 Next Non-Acute Visit Date Scheduled with Care Team: Please Schedule an Appointment. VERONICA HAN RN 02/08/2020 14:47 * Telephone Encounter - Veronica Han RN - 02/08/2020 7596 EDTFrom: Doris Kerr Sent: 02/08/2020 14:40 EDT Subject: Medication Renewal Request Doris Kerr would like a refill of the following medications: Thyroid, Pork, 240 mg tablet [Leida Cerda PA-C] Patient Comment: I know I am due for labs, but I do not feel comfortable going in for them during the current situation Preferred pharmacy: [id number] - [facility], [place] - [address] [facility] documented in this encounter Plan of Treatment Not on file documented as of this encounter Visit Diagnoses Diagnosis Hypothyroidism, iatrogenic- Primary Other iatrogenic hypothyroidism documented in this encounter Discontinued Medications Medication Sig Discontinue Reason Start Date End Da te Thyroid, Pork, 240 mg tabletIndications:Hypothy roidism, iatrogenic Take 240 mg by mouth daily. Reorder 11/20/2019 02/08/2020 documented as of this encounter Care Teams Scale Mechanic Relationship Specialty Start Date End Date Leida Cerda PA-C PCP - General 03/16/19 03/07/22 documented as of this encounter
--- OUTSIDE RECORDS SUMMARY | 2024-08-23 23:31 | XMS_ITS | Encounter Summary ---
Author Organization [facility] Address [address] [place] [address] Care Team Providers Care Primer And Powder Canning Leader Name Role Phone Shannan Vieyra MD Primary Care Provider Unavail able Reason for Visit * Reason Onset Date Comments Medications Refill 12/23/2017 Encounter Details Date Type Department Care Team (Late st Contact Info) Description 12/23/[address] [address] Shannan Vieyra MD Medications Refill Social History [...] Filled Start Date End Date Thyroid, Pork, 180 mg tabletIndications:H ypothyroidism, iatrogenic Take 180 mg by mouth daily. [...] Requested: Thyroid, Pork, 180mg Preferred Pharmacy: [facility] Is patient out of medication? Yes Last [...] documented as of this encounter Care Teams Primer And Powder Canning Leader Relationship Specialty Start Date End Date Shannan Vieyra MD PCP - General 04/08/09 03/15/19 documented as of this encounter
--- OUTSIDE RECORDS SUMMARY | 2024-08-23 23:31 | XMS_ITS | Encounter Summary ---
Author Organization [facility] Address [address] [place] [address] Care Team Providers Care Machine Clerical Verifier Name Role Phone Leida Man PA-C Primary Care Provi melvin Glynn Salazar NP Primary Care Provider [phone] Reason for Visit * Reason Onset Date Comments Medications Refill 08/10/2021 Medications Refill 03/26/2022 Encounter Details Date Type Department Care Team (Late st Contact Info) Description 08/10/2021 Telephone [facility] Family Medicine [address] [address] Leida Man PA-C 402 [facility] [address] [place], [place] [phone] Medications Refill; Medications Refill Social History Tobacco [...] 08/27/2022 Thyroid, Pork, (ARMOUR THYROID) 180 mg tabletIndications: [...] Encounter - Alexandrea Dwyer RN - 08/10/2021 4775 EDT Pt is due for Thyroid cascade [...] 03/26/2022 documented in this encounter Care Teams Machine Clerical Verifier Relationship Specialty Start Date End Date Leida Man PA-C PCP - General 03/16/19 03/07/22 Glynn Salazar NP [address] [place] [phone] PCP - General Family Medicine - Primary Care 03/08/22 documented as of this encounter
--- OUTSIDE RECORDS SUMMARY | 2024-08-23 23:31 | XMS_ITS | Encounter Summary ---
Author Organization [facility] Address [address] [place] [address] Care Team Providers Care Branch Service Associate Name Role Phone Shannan Vieyra MD Primary Care Provider Unavail able Reason for Visit * Reason Onset Date Comments Medications Refill 12/01/2015 Encounter Details Date Type Department Care Team (Late st Contact Info) Description 12/01/2015 Refill [facility] Medicine [address] [address] Shannan Vieyra MD Medications Refill Social History [...] takes one tab by mouth daily;dispense;90;rf;4 Pharmacy: [facility] Last Refill Date: 09.04.14 Last Visit [...] documented as of this encounter Care Teams Branch Service Associate Relationship Specialty Start Date End Date Shannan Vieyra MD PCP - General 04/08/09 03/15/19 documented as of this encounter
--- OUTSIDE RECORDS SUMMARY | 2024-08-23 23:31 | XMS_ITS | Encounter Summary ---
Author Organization [facility] Address [address] [place] [address] Care Team Providers Care Lead Net Software Developer Name Role Phone Shannan Vieyra MD Primary Care Provider Unavail able Encounter Details Date Type Department Care Team (Late st Contact Info) Description 02/21/2016 Orders Only [address] [address] Ronald, MD Pranay [address] [place] [phone] Social History Tobacco Use Types Packs/Day Years [...] on filedocumented in this encounter Care Teams Lead Net Software Developer Relationship Specialty Start Date End Date Shannan Vieyra MD PCP - General 04/08/09 03/15/19 documented as of this encounter
--- OUTSIDE RECORDS SUMMARY | 2024-08-23 23:31 | XMS_ITS | Encounter Summary ---
Author Organization [facility] Address [address] [place] [address] Care Team Providers Care Geothermal Production Manager Name Role Phone Shannan Vieyra MD [...] Info) Description 08/24/2016 14:30 EST Office Visit [facility] Family Medicine - [place] [id number] [place], [place] [phone] Leida Cerda PA-C [address] [facility] [address] [place], [place] [phone] Graves' disease (Primary Dx); Bee sting, undetermined [...] Last Filled Start Date End Date azithromycin (ZITHROMAX) 250 mg tabletIndications: Acute suppurative otitis media of right ear without spontaneous rupture of tympanic membrane, recurrence not specified Take two tablets today, then 1 tablet daily until gone (x 4 days) 6 Tab 08/24/2016 8 EPINEPHrine (EPIPEN) 0.3 mg/0.3 mL injectionIndicatio ns:Bee sting, undetermined intent, sequela Inject 0.3 mL into the muscle once as needed for up to 1 dose (allergic reaction). 1 Syringe 6 08/24/2016 6 thyroid, Pork, (ARMOUR THYROID) 120 mg tabletIndications: Graves' disease Take 1 Tab by mouth daily. 30 Tab 12 08/24/2016 6 documented in this encounter Discharge Disposition Disposition [...] for several days now. 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 No fever. Dry cough. No SOB [...] 1 Tab by mouth daily. - Thyroid [place] Bee sting, undetermined intent, sequela - EPINEPHrine [...] 0.55 - 4.78 uIU/ml 08/24/2016 21:31 EST [facility] Comment: TSH cascade is not recommended for patients in which pituitary or hypothalamic disorders are suspected. Blood specimen (specimen) BLOOD SPECIMEN / Unknown 08/24/2016 14:51 EST 08/24/2016 19:34 EST us Leida Cerda PA-C CHEMISTRY & BLOOD G ORDERABLES Final Result [facility] [address] [place] [address] documented in this encounter Visit Diagnoses Diagnosis [...] documented as of this encounter Care Teams Geothermal Production Manager Relationship Specialty Start Date End Date Shannan Vieyra MD PCP - General 04/08/09 03/15/19 documented as of this encounter
--- OUTSIDE RECORDS SUMMARY | 2024-08-23 23:31 | XMS_ITS | Encounter Summary ---
Author Organization [facility] Address [address] [place] [address] Care Team Providers Care Sports Commentator Name Role Phone Leida Cerda PA-C Primary Care Provi melvin Encounter Details Date Type Department Care Team (Late st Contact Info) Description 06/30/2020 Orders Only [facility] Family Medicine [address] [phone] Leida Cerda PA-C 402 [facility] [place] [address] [place] [address] Hypothyroidism, iatrogenic (Primary Dx) Social [...] documented as of this encounter Care Teams Sports Commentator Relationship Specialty Start Date End Date Leida Cerda PA-C PCP - General 03/16/19 03/07/22 documented as of this encounter
--- OUTSIDE RECORDS SUMMARY | 2024-08-23 23:31 | XMS_ITS | Encounter Summary ---
Author Organization [facility] Address [address] [place] [address] Care Team Providers Care Staff Nurse Anesthetist Name Role Phone Leida Cerda PA-C Primary Care Provi melvin Reason for Visit * Reason Onset Date Comments Medications Refill 11/19/2019 Encounter Details Date Type Department Care Team (Late st Contact Info) Description 11/19/[address] [address] Leida Cerda PA-C 402 [facility] [address] [place] [address] Medications Refill Social History Tobacco [...] work. Lab ordered She can go to [facility] for [facility] * Telephone Encounter - Sheila Edmond RN - 11/20/2019 0845 EST Last refill: 08/07/18 Last OV note, 09/05/18: Recently adjusted [place] Thyroid and will re check TSH in another month ortwo I do not see that this was ever rechecked. To PCP to advise on refill, labs, OV * Telephone Encounter - Rima Urbina - 11/19/2019 1802 EST Medication(s) Requested: [place] Thyroid - per patient message [facility] Is patient out of medication? Yes - per med refill line [facility] Last Refill Date: 2013 Last Visit Date with Ordering Provider: 09/05/18 Next Non-Acute Visit Date Scheduled with Care Team: No. Rima Urbina 11/19/2019 18:02 documented in this encounter Plan of Treatment Not on file documented as of this encounter Results * (ABNORMAL) THYROID CASCADE (06/25/2020 9:58 EDT) TSH <0.02(L) 0.47 - 4.68 uIU/mL 06/25/2020 14:56 EDT [facility] Blood VENOUS BLOOD / Unknown Venipuncture / Unknown 06/25/2020 9:58 EDT 06/25/2020 9:58 EDT Narrative [facility] - 06/25/2020 14:56 EDT NOTE: TSH [place] is not recommended for patients in which pituitary or hypothalamic disorders are suspected. The results of this assay can be falsely lowered due to the consumption of Biotin. us Leida Cerda PA-C CHEMISTRY & BLOOD G ORDERABLES Final Result [facility] [address] [place] [id number] documented in this encounter Visit Diagnoses Diagnosis Hypothyroidism, iatrogenic- Primary Other iatrogenic hypothyroidism documented in this encounter Discontinued Medications Medication Sig Discontinue Reason Start Date End Da te Thyroid, Pork, 240 mg tablet Take 240 mg by mouth daily. Reorder 08/07/2018 11/20/2019 documented as of this encounter Care Teams Staff Nurse Anesthetist Relationship Specialty Start Date End Date Leida Cerda PA-C PCP - General 03/16/19 03/07/22 documented as of this encounter
--- OUTSIDE RECORDS SUMMARY | 2024-08-23 23:31 | XMS_ITS | Encounter Summary ---
Author Organization [facility] Address [address] [place] [address] Care Team Providers Care Client Liaison Name Role Phone Comfort Zelaya NP Primary Care Provider [phone] Reason for Visit * Reason Onset Date Comments Appointment Related 07/30/2022 Encounter Details Date Type Department Care Team (Late st Contact Info) Description 07/30/2022 Telephone [facility] Breast Imaging Mammography - [address] [address] Alisa Robb Appointment Related Social History Tobacco [...] encounter Miscellaneous Notes * Telephone Encounter - Bipower, Alisa - 07/30/2022 1351 EDT Left patient a message to call back breast imaging at [phone]. documented in this encounter Plan of Treatment Not on file documented as of this encounter Visit Diagnoses Not on filedocumented in this encounter Care Teams Client Liaison Relationship Specialty Start Date End Date Comofrt Zelaya NP [address] [place] [phone] PCP - General Family Medicine - Primary Care 03/08/22 documented as of this encounter
--- OUTSIDE RECORDS SUMMARY | 2024-08-23 23:31 | XMS_ITS | Encounter Summary ---
Author Organization [facility] Address [address] [place] [address] Care Team Providers Care Hardness Inspector Name Role Phone Shannan Vieyra MD Primary Care Provider Unavail Leida Jackson PA-C Primary Care Provi melvin Comfort Zelaya NP Primary Care Provider [phone] Reason for Visit * Reason Onset Date Comments Medications Refill 07/22/2018 Encounter Details Date Type Department Care Team (Late st Contact Info) Description 07/22/2018 Refill [facility] [address] [phone] Leida Man PA-C 402 [facility] [address] [place], [place] [phone] Medications Refill Social History Tobacco Use Types [...] Date Thyroid, Pork, (ARMOUR THYROID) 180 mg tabletIndications:H ypothyroidism, iatrogenic Take 180 mg by mouth daily. 90 Tab 07/24/2018 08/07/2018 documented in this encounter Miscellaneous Notes * Telephone Encounter - Alisha Nino RN - 07/24/2018 0754 EDT Requested Prescriptions Signed Prescriptions Disp Refills [...] documented as of this encounter Care Teams Hardness Inspector Relationship Specialty Start Date End Date Shannan Vieyra MD PCP - General 04/08/09 03/15/19 Leida Man PA-C PCP - General 03/16/19 03/07/22 Comfort Zelaya NP [address] [place] [phone] PCP - General Family Medicine - Primary Care 03/08/22 documented as of this encounter
--- OUTSIDE RECORDS SUMMARY | 2024-08-23 23:31 | XMS_ITS | Encounter Summary ---
Author Organization [facility] Address [address] [place] [address] Care Team Providers Care B And B Gang Worker Name Role Phone Shannan Vieyra MD Primary Care Provider Unavail able Reason for Visit * Reason Comments Follow-up BP follow up; Flu Vaccine declinse flu vaccine Encounter Details Date Type Department Care Team (Late st Contact Info) Description 09/05/2018 9:30 EST Office Visit [facility] Medicine [place] [phone] Leida Cerda PA-C 402 [facility] [address] [place], [place] [phone] Elevated blood pressure reading (Primary Dx); Bee [...] EDT documented in this encounter Functional Status * [...] End Date EPINEPHrine (EPIPEN) 0.3 mg/0.3 mL injectionIndicatio ns:Bee sting Inject 0.3 mL into the muscle once as needed for up to 1 dose (allergic reaction). 2 Syringe 6 09/05/2018 04/14/2020 documented in this encounter Progress Notes * Leida Cerda PA - 09/05/2018 0952 EST Subjective: Patient ID: Doris Kerr is an 38 y.o. female. Chief Complaint Patient presents with ??? Follow-up BP follow up; ??? Flu Vaccine declinse flu vaccine HPI BP f/u as it was high at last visit. Had it checked at the national sales consultant office since then and it was ok. Feels well, no chest pain, racing, palpitations, SOB. Eats clean with no added salt. Recently adjusted [place] Thyroid and will re check TSH in [...] documented as of this encounter Care Teams B And B Gang Worker Relationship Specialty Start Date End Date Shannan Vieyra MD PCP - General 04/08/09 03/15/19 documented as of this encounter
--- OUTSIDE RECORDS SUMMARY | 2024-08-23 23:31 | XMS_ITS | Encounter Summary ---
Author Organization [facility] Address [address] [place] [address] Care Team Providers Care Monorail Hooker Name Role Phone Leida Cerda PA-C Primary Care Provi melvin Comfort Zelaya NP Primary Care Provider [phone] Reason for Visit * Reason Onset Date Comments Medication Reaction 04/14/2020 Abdominal Pain 04/14/2020 Diarrhea 04/14/2020 Encounter Details Date Type Department Care Team (Late st Contact Info) Description 04/14/[address] [address] Leida Cerda PA-C 402 [facility] [address] [place] [address] Medication Reaction; Abdominal Pain; Diarrhea [...] on filedocumented in this encounter Care Teams Monorail Hooker Relationship Specialty Start Date End Date Leida Cerda PA-C PCP - General 03/16/19 03/07/22 Comfort Zelaya NP [address] [place] [phone] PCP - General Family Medicine - Primary Care 03/08/22 documented as of this encounter
--- OUTSIDE RECORDS SUMMARY | 2024-08-23 23:31 | XMS_ITS | Encounter Summary ---
Author Organization [facility] Address [address] [place] [address] Care Team Providers Care Corporate Security Manager Name Role Phone Shannan Winter MD Primary Care Provider Unavail able Reason for Visit * Reason Onset Date Comments Medications Refill 09/19/2015 Encounter Details Date Type Department Care Team (Late st Contact Info) Description 09/19/2015 Refill [facility] Family Medicine [address] [address] Shannan Winter MD Medications Refill Social History [...] Pork, (ARMOUR THYROID) 120 mg tabletIndications:Gr aves' disease,Hypothyroidi sm, unspecified hypothyroidism type Take 1 Tab by mouth daily DUE FOR LABS 90 Tab 0 09/22/2015 6 documented in this encounter Miscellaneous Notes * Telephone Encounter - Dionna Caballero RN - 09/22/2015 0977 EST Requested Prescriptions Signed Prescriptions Disp Refills ??? thyroid, Pork, (ARMOUR THYROID) 120 mg tablet 90 Tab 0 Sig: Take 1 Tab by mouth daily DUE FOR LABS Authorizing Provider: SHANNAN WINTER Ordering User: DIONNA CABALLERO Patient is due for labs. Left message informing her of this. Order placed. Temporary 3 month refills approved at this time. Dionna Caballero RN * Telephone Encounter - Christina Lianne - 09/19/2015 1654 EST Medication(s) Requested: Armor thyroid 120 mg tab [facility] Last Refill Date: 09/04/2014 Last Visit Date: [...] documented as of this encounter Care Teams Corporate Security Manager Relationship Specialty Start Date End Date Shannan Winter MD PCP - General 04/08/09 03/15/19 documented as of this encounter
--- OUTSIDE RECORDS SUMMARY | 2024-08-23 23:31 | XMS_ITS | Encounter Summary ---
Author Organization [facility] Address [address] [place] [address] Care Team Providers Care Pug Mill Operator Name Role Phone Leida Cerda PA-C Primary Care Provi melvin Reason for Visit * Reason Onset Date Comments Joint Swelling 04/11/2020 Encounter Details Date Type Department Care Team (Late st Contact Info) Description 04/11/[address] [address] Imani Owens MD [address] [place] [phone] Joint Swelling Social History Tobacco Use [...] Encounter - Imani Owens MD - 04/11/2020 1529 EDT Patient bit by a fly earlier [...] on filedocumented in this encounter Care Teams Pug Mill Operator Relationship Specialty Start Date End Date Leida Cerda PA-C PCP - General 03/16/19 03/07/22 documented as of this encounter
--- OUTSIDE RECORDS SUMMARY | 2024-08-23 23:31 | XMS_ITS | Encounter Summary ---
Author Organization [facility] Address [address] [place] [address] Care Team Providers Care Pbx Manager Name Role Phone Comfort Zelaya NP Primary Care Provider [phone] Reason for Visit * Reason Onset Date Comments Appointment Related 07/28/2022 Encounter Details Date Type Department Care Team (Late st Contact Info) Description 07/28/2022 Telephone [facility] [place] [address] Mitzi Prado Appointment Related Social History Tobacco [...] message to call back breast imaging at [phone] documented in this encounter Plan of Treatment Not on file documented as of this encounter Visit Diagnoses Not on filedocumented in this encounter Care Teams Pbx Manager Relationship Specialty Start Date End Date Comfort Zelaya NP [address] [place] [phone] PCP - General Family Medicine - Primary Care 03/08/22 documented as of this encounter
--- OUTSIDE RECORDS SUMMARY | 2024-08-23 23:31 | XMS_ITS | Encounter Summary ---
Author Organization [facility] Address [address] [place] [address] Care Team Providers Care Truck And Transport Mechanic Name Role Phone Shannan Winter MD Primary Care Provider Unavail able Reason for Visit * Reason Onset Date Comments Medications Refill 05/20/2016 Encounter Details Date Type Department Care Team (Late st Contact Info) Description 05/20/2016 Telephone [facility] Medicine [address] [phone] Shannan Winter MD Medications Refill Social History [...] Date End Date Thyroid, Pork, (ARMOUR THYROID) 90 mg tablet Take 90 mcg by mouth daily. Take with 30 mcg to =120 daily due to insurance coverage 90 Tab 1 05/20/2016 6 thyroid, Pork, (ARMOUR THYROID) 30 mg tablet Take 1 Tab by mouth daily. Take with 90 mcg daily to = 120 mcg due to insurance coverage 90 Tab 1 05/20/2016 6 documented in this encounter Miscellaneous Notes * Telephone Encounter - Alisha Nino RN - 05/20/2016 3225 EDT Requested Prescriptions Signed Prescriptions Disp Refills [...] ALISHA NINO * Telephone Encounter - Lianne Vasquez - 05/20/2016 6981 EDT Patient called to state that her insurance will not pay for RX of 120 mg of armour thyroid. She must have 2 rx's for generic, one at 90 mg and one at 30 mg. [facility] documented in this encounter Plan of Treatment Not on file documented as of this encounter Visit Diagnoses Not on filedocumented in this encounter Discontinued Medications Medication Sig Discontinue Reason Start Date End Da te thyroid, Pork, (ARMOUR THYROID) 120 mg tabletIndications:Grave s' disease Take 1 Tab by mouth daily. Insurance does not cover 04/15/2016 05/20/2016 documented as of this encounter Care Teams Truck And Transport Mechanic Relationship Specialty Start Date End Date Shannan Winter MD PCP - General 04/08/09 03/15/19 documented as of this encounter
--- OUTSIDE RECORDS SUMMARY | 2024-08-23 23:31 | XMS_ITS | Encounter Summary ---
Author Organization [facility] Address [address] [place] [address] Care Team Providers Care Electrical Drafter Name Role Phone Leida Cerda PA-C Primary Care Provi melvin Comfort Zelaya NP Primary Care Provider [phone] Reason for Visit * Reason Onset Date Comments Medications Refill 04/14/2020 Encounter Details Date Type Department Care Team (Late st Contact Info) Description 04/14/2020 Refill [facility] Medicine [address] [phone] Leida Cerda PA-C 402 [facility] [address] [place], [place] [phone] Medications Refill Social History Tobacco Use Types [...] - Alisha Nino RN - 04/15/2020 0755 EDTFrom: Doris Kerr Sent: 04/14/2020 16:14 EDT Subject: Medication Renewal Request Doris Kerr would like a refill of the following medications: EPINEPHrine (EPIPEN) 0.3 mg/0.3 mL injection [Leida Cerda PA-C] Preferred pharmacy: [id number] [facility] documented in this encounter Plan of Treatment [...] documented as of this encounter Care Teams Electrical Drafter Relationship Specialty Start Date End Date Leida Cerda PA-C PCP - General 03/16/19 03/07/22 Comfort Zelaya NP [address] [place] [phone] PCP - General Family Medicine - Primary Care 03/08/22 documented as of this encounter
--- OUTSIDE RECORDS SUMMARY | 2024-08-23 23:31 | XMS_ITS | Encounter Summary ---
Author Organization [facility] Address [address] [place] [address] Care Team Providers Care Templer Head Name Role Phone Leida Cerda PA-C Primary Care Provi melvin Reason for Visit * Reason Comments Hypothyroidism Encounter Details Date Type Department Care Team (Late st Contact Info) Description 06/25/2020 9:00 EDT Office Visit [address] [phone] Leida Cerda PA-C 402 [facility] [address] [place] [address] Hypothyroidism, iatrogenic (Primary Dx); Need [...] 0923 EDT Temperature 36.4 ??C (97.5 ??F) 06/25/2020922 EDT Respiratory Rate 16 06/25/2020922 EDT Oxygen [...] Due for thyroid check New OCP per flight surveyor due to BP elevation Now on progesterone [...] 97 - 169 ng/dL 06/25/2020 16:37 EDT [facility] Blood VENOUS BLOOD / Unknown Venipuncture / Unknown 06/25/2020 9:58 EDT 06/25/2020 9:58 EDT Leida Cerda PA-C CHEMISTRY & BLOOD G ORDERABLES Final Result Performing Organization Address [facility] de Phone Number [facility] [address] [place] [address] * T4 FREE (06/25/2020 9:58 EDT) T4, Free 2.0 0.8 - 2.2 ng/dL 06/25/2020 15:40 EDT [facility] Blood VENOUS BLOOD / Unknown Venipuncture / Unknown 06/25/2020 9:58 EDT 06/25/2020 9:58 EDT Leida Cerda PA-C CHEMISTRY & BLOOD G ORDERABLES Final Result Performing Organization Address [facility] de Phone Number [facility] [address] [place] [address] * BASIC METABOLIC PANEL (BMP) (06/25/2020 9:58 EDT) Sodium 141 136 - 145 mEq/L 06/25/2020 14:23 [facility] Potassium 4.8 3.5 - 5.0 mEq/L 06/25/2020 14:23 [facility] Chloride 105 96 - 110 mEq/L 06/25/2020 14:23 [facility] CO2 Total 23 22 - 32 mEq/L 06/25/2020 14:23 [facility] Glucose 96 70 - 100 mg/dL 06/25/2020 14:23 [facility] Calcium 10.1 8.5 - 10.5 mg/dL 06/25/2020 14:23 [facility] Calculated Calcium 9.6 8.5 - 10.5 mg/dL 06/25/2020 14:23 [facility] BUN 17 10 - 26 mg/dL 06/25/2020 14:23 [facility] Creatinine 0.53 0.52 - 1.04 mg/dL 06/25/2020 14:23 EDT [facility] eGFR 120 >60 mL/min/1.7 3m2 06/25/2020 14:23 EDT [facility] Comment:eGFR calculated silvia holguin CKD-EPI equation for non- Americans. Multiply eGFR by 1.16 for patients. Blood VENOUS BLOOD / Unknown Venipuncture / Unknown 06/25/2020 9:58 EDT 06/25/2020 9:58 EDT Leida Cerda PA-C CHEMISTRY & BLOOD G ORDERABLES Final Result Performing Organization Address [facility] Co de Phone Number [facility] [address] [place] [address] * (ABNORMAL) THYROID CASCADE (06/25/2020 9:58 EDT) TSH <0.02(L) 0.47 - 4.68 uIU/mL 06/25/2020 14:56 EDT [facility] Blood VENOUS BLOOD / Unknown Venipuncture / Unknown 06/25/2020 9:58 EDT 06/25/2020 9:58 EDT Narrative [facility] - 06/25/2020 14:56 EDT NOTE: TSH Rice is not recommended for patients in which pituitary or hypothalamic disorders are suspected. The results of this assay can be falsely lowered due to the consumption of Biotin. Leida Cerda PA-C CHEMISTRY & BLOOD G ORDERABLES Final Result Performing Organization Address [facility]/ZIP Co de Phone Number [facility] [address] [place] [address] documented in this encounter Visit Diagnoses Diagnosis [...] 20 documented in this encounter Care Teams Templer Head Relationship Specialty Start Date End Date Leida Cerda PA-C PCP - General 03/16/19 03/07/22 documented as of this encounter
--- OUTSIDE RECORDS SUMMARY | 2024-08-23 23:31 | XMS_ITS | Encounter Summary ---
Author Organization [facility] Address [address] [place] [address] Care Team Providers Care Director Food And Beverage Name Role Phone Shannan Vieyra MD Primary Care Provider Unavail able Reason for Visit * Reason Onset Date Comments Returning Call 08/26/2016 Encounter Details Date Type Department Care Team (Late st Contact Info) Description 08/26/[address] [phone] Shannan Vieyra MD Returning Call Social History [...] Encounter - Leida Cerda PA - 08/27/2016 0862 EST Discussed elevated TSH and the need to increase her thyroid replacement. Currently taking armour thyroid at 120 mg daily. Will re check TSH in 3 mo * Telephone Encounter - Leida Cerda PA - 08/27/2016 1325 EST LMTCB * Telephone Encounter - CasandrakatherynMilagros - 08/26/2016 1615 EST Pt states she is returning a call from Sallie Cerda NP.Pt states it was regarding dosage. Please call [...] documented as of this encounter Care Teams Director Food And Beverage Relationship Specialty Start Date End Date Shannan Vieyra MD PCP - General 04/08/09 03/15/19 documented as of this encounter
--- OUTSIDE RECORDS SUMMARY | 2024-08-23 23:31 | XMS_ITS | Encounter Summary ---
Author Organization [facility] Address [address] [place] [address] Care Team Providers Care Lean Facilitator Name Role Phone Leida Cerda PA-C Primary Care Provi melvin Reason for Referral * Radiology Services (Routine) - Specialty Report Received Specialty Diagnoses / Procedures Referred By Julianne gallo Referred To Contact Diagnoses Injury of left wrist, initial encounter Procedures XR WRIST LEFT 3 OR MORE VIEWS Leida Cerda PA-C Phone: tel: fax: Referral ID Status Reason Start Date Expiration Date V isits Requested Visits Authorized [id number] Specialty Report Received 04/09/2021 1 1 Reason for Visit * Radiology Services (Routine) - Specialty Report Received Specialty Diagnoses / Procedures Referred By Julianne gallo Referred To Contact Diagnoses Injury of left wrist, initial encounter Procedures XR WRIST LEFT 3 OR MORE VIEWS Leida Cerda PA-C Phone: tel: fax: Referral ID Status Reason Start Date Expiration Date V isits Requested Visits Authorized [id number] Specialty Report Received 04/09/2021 1 1 Encounter Details Date Type Department Care Team (Latest Contact Info) Description 04/10/2021 15:58 EDT - 04/10/2021 23:59 EDT Hospital Encounter [facility] [address] [place] [address] Injury of left wrist, initial encounter Discharge [...] 5 04/15/2020 04/25/2023 Thyroid, Pork, 180 mg tabletIndications :Hypothyroidism, iatrogenic Take 180 mg by mouth daily. [...] andagree with the findings. Leida Cerda PA-C IMG DIAGNOSTIC IMAG ING ORDERABLES Final Result documented in this encounter Visit Diagnoses Diagnosis Injury of left wrist, initial encounter documented in this encounter Care Teams Lean Facilitator Relationship Specialty Start Date End Date Leida Cerda PA-C PCP - General 03/16/19 03/07/22 documented as of this encounter
--- OUTSIDE RECORDS SUMMARY | 2024-08-23 23:31 | XMS_ITS | Encounter Summary ---
Author Organization [facility] Address [address] [place] [address] Care Team Providers Care Book Jacket Cover Machine Operator Name Role Phone Shannan Vieyra MD Primary Care Provider Unavail able Encounter Details Date Type Department Care Team (Late st Contact Info) Description 08/07/2018 Orders Only [facility] Family Medicine - [place] [phone] Leida Cerda PA-C 402 [facility] [address] [place], [place] [address] Hypothyroidism, iatrogenic (Primary Dx) Social History Tobacco [...] Date End Date Thyroid, Pork, 240 mg tablet Take 240 [...] documented as of this encounter Care Teams Book Jacket Cover Machine Operator Relationship Specialty Start Date End Date Shannan Vieyra MD PCP - General 04/08/09 03/15/19 documented as of this encounter
--- OUTSIDE RECORDS SUMMARY | 2024-08-23 23:31 | XMS_ITS | Encounter Summary ---
Author Organization [facility] Address [address] [place] [address] Care Team Providers Care Multiple Spindle Screw Machine Operator Name Role Phone Comfort Zelaya NP Primary Care Provider [phone] Reason for Referral * Radiology Services (Routine/Next Available) - New Request Specialty Diagnoses / Procedures Referred By Julianne gallo Referred To Contact Diagnoses Mass of left breast, unspecified quadrant Procedures MA BREAST DIAGNOSTIC ARIANNA BILATERAL MA BREAST DIAGNOSTIC BILATERAL Denice Martinez MD Phone: tel: fax: [facility] Referral ID Status Reason Start Date Expiration Date V isits Requested Visits Authorized [id number] New Request 07/28/2022 1 1 Reason for Visit * Radiology Services (Routine/Next Available) - New Request Specialty Diagnoses / Procedures [facility] Referred To Contact Diagnoses Mass of left breast, unspecified quadrant Procedures MA BREAST DIAGNOSTIC ARIANNA BILATERAL MA BREAST DIAGNOSTIC BILATERAL Denice Martinez MD Phone: tel: fax: [facility] Referral ID Status Reason Start Date Expiration Date V isits Requested Visits Authorized [id number] New Request 07/28/2022 1 1 Encounter Details Date Type Department Care Team (Latest Contact Info) Description 08/17/2022 13:50 EST - 08/17/2022 23:59 EST Hospital Encounter [facility] Breast Imaging Mammography - [place] [address] [place], [place] [address] Mass of left breast, unspecified quadrant Discharge [...] of any clinically suspicious palpable finding. The kier hand discussed the radiologist's interpretation and follow up [...] is seen. us Denice Martinez MD IMG MAMMOGRAPHY ORDERABLES F inal Result documented in this encounter Visit Diagnoses Diagnosis Mass of left breast, unspecified quadrant documented in this encounter Care Teams Multiple Spindle Screw Machine Operator Relationship Specialty Start Date End Date Comfort Zelaya NP [address] [place] [phone] PCP - General Family Medicine - Primary Care 03/08/22 documented as of this encounter
--- OUTSIDE RECORDS SUMMARY | 2024-08-23 23:31 | XMS_ITS | Encounter Summary ---
Author Organization [facility] Address [address] [place] [address] Care Team Providers Care Medical Physicist Name Role Phone Shannan Vieyra MD Primary Care Provider Unavail able Encounter Details Date Type Department Care Team (Late st Contact Info) Description 07/31/2018 Results Only [facility] Family Medicine - [place] [phone] Leida Cerda PA-C [address] [place] [address] [address] [place], [place] [address] Social History Tobacco Use Types Packs/Day Years [...] 0.8 - 2.2 ng/dl 07/31/2018 15:43 EDT [facility] BLOOD SPECIMEN / Unknown 07/31/2018 10:18 EDT 07/31/2018 14:05 EDT us Leida Cerda PA-C CHEMISTRY & BLOOD G ORDERABLES Final Result [facility] [address] [place] [address] documented in this encounter Visit Diagnoses Not on filedocumented in this encounter Care Teams Medical Physicist Relationship Specialty Start Date End Date Shannan Vieyra MD PCP - General 04/08/09 03/15/19 documented as of this encounter
--- OUTSIDE RECORDS SUMMARY | 2024-08-23 23:31 | XMS_ITS | Encounter Summary ---
Author Organization [facility] Address [address] [place] [address] Care Team Providers Care Poker Dealer Name Role Phone Comfort Zelaya ELECTRICIAN YARD Primary Care Provider [phone] Reason for Visit * Reason Onset Date Comments Pre-visit Orders 03/26/2022 Encounter Details Date Type Department Care Team (Late st Contact Info) Description 03/26/2022 Telephone [facility] Medicine [address] [address] Comfort Zelaya NP [address] [place] [address] Pre-visit Orders Social History Tobacco [...] cascade prior to her upcoming appointment with on 04/26. documented in this encounter Plan of Treatment Not on file documented as of this encounter Results * (ABNORMAL) THYROID CASCADE (04/25/2022 9:49 EDT) TSH <0.02(L) 0.47 - 4.68 mIU/L 04/25/2022 10:[address] [facility] Blood VENOUS BLOOD / Unknown Venipuncture / Unknown 04/25/2022 9:49 EDT 04/25/2022 9:51 EDT [address]arr[address] [facility] - 04/25/2022 10:46 EDT NOTE: The results of this assay can be falsely lowered due to the consumption of Biotin. us Comfort Zelaya NP CHEMISTRY & BLOOD GAS ORDERABLES Final Result [facility] [address] [place] [address] documented in this encounter Visit Diagnoses Diagnosis Hypothyroidism, iatrogenic- Primary Other iatrogenic hypothyroidism documented in this encounter Care Teams Poker Dealer Relationship Specialty Start Date End Date Comfort Zelaya NP [address] [place] [phone] PCP - General Family Medicine - Primary Care 03/08/22 documented as of this encounter
--- OUTSIDE RECORDS SUMMARY | 2024-08-23 23:31 | XMS_ITS | Encounter Summary ---
Author Organization [facility] Address [address] [place] [address] Care Team Providers Care Business Machine Mechanic Name Role Phone Shannan Vieyra MD Primary Care Provider Unavail able Reason for Visit * Reason Onset Date Comments Medications Refill 08/20/2014 Encounter Details Date Type Department Care Team (Late st Contact Info) Description 08/20/2014 Refill [facility] Medicine [address] [address] Shannan Vieyra MD Medications Refill Social History [...] Date End Date thyroid, Pork, (ARMOUR THYROID) 15 mg tablet Take 1 Tab by mouth daily OVER DUE FOR THYROID FUNCTION LABS. 90 Tab 0 08/20/2014 4 Thyroid, Pork, (ARMOUR THYROID) 90 mg tablet Take 1 Tab by mouth daily. 90 Tab 0 08/20/2014 4 lisinopril-hydroch lorothiazide (PRINZIDE, ZESTORETIC) 20-12.5 mg per tablet Take 1 Tab by mouth daily. 90 Tab 0 08/20/2014 4 documented in this encounter Miscellaneous Notes * Telephone Encounter - Shikha Garza - 08/26/2014 0913 EST Left message for patient to call and schedule lab appointment for thyroid cascade. * Telephone Encounter - Frances Christensen - 08/23/2014 1633 EST Scheduled with 09.04.14. Patient out of medication. Needs today. * Telephone Encounter - Aliza Nino, DAXA - 08/21/2014 1533 EST Requested Prescriptions Pending [...] October 2012. Message will be forwarded to [facility] to schedule appointment for blood draw prior to receiving medication order. Dionna Caballero RN * Telephone Encounter - Shikha Garza - 08/20/2014 1542 EST Medication(s) Requested: Lisinopril-Hydrochlorothiazide Pharmacy: [place] Last Refill Date: 02/20/14 #90 No refills Last Visit Date: 06/14/12 Next Visit Date: 09/04/2014 Is patient out of medication? Yes Medication(s) Requested: [place] Thyroid 15 mg Last Refill Date: 02/20/14 #90 No refills Is patient out of medication? Yes Medication(s) Requested: [place] Thyroid 90 mg Last Refill Date: 02/20/14 #90 No refills Is patient out of medication? Yes Shikha Garza 08/20/2014 15:45 documented in this encounter Plan of Treatment Not on file documented as of this encounter Results * (ABNORMAL) THYROID CASCADE (09/02/2014 15:45 EST) TSH 25.78(H) 0.35 - 5.00 uIU/ml 09/02/2014 20:23 EST [facility] Comment: TSH cascade is not recommended for patients in which pituitary or hypothalamic disorders are suspected. Blood specimen (specimen) BLOOD SPECIMEN / Unknown 09/02/2014 15:45 EST 09/02/2014 18:01 EST us Shannan Vieyra MD CHEMISTRY & BLOOD GAS ORDERABL ES Final Result [facility] [address] [place] [address] documented in this encounter Visit Diagnoses Diagnosis [...] documented as of this encounter Care Teams Business Machine Mechanic Relationship Specialty Start Date End Date Shannan Vieyra MD PCP - General 04/08/09 03/15/19 documented as of this encounter
--- OUTSIDE RECORDS SUMMARY | 2024-08-23 23:32 | XMS_ITS | Encounter Summary ---
Author Organization [facility] Address [address] [place] [address] Care Team Providers Care Salesforce Business Analyst Name Role Phone Shannan Vieyra MD Primary Care Provider Unavail able Reason for Visit * Reason Onset Date Comments Post-ED Follow Up 01/29/2014 01/25/14 - ABD PAIN Encounter Details Date Type Department Care Team (Late st Contact Info) Description 01/29/[address] [address] Aliza Nino RN Post-ED Follow Up (01/25/14 [...] on filedocumented in this encounter Care Teams Salesforce Business Analyst Relationship Specialty Start Date End Date Shannan Vieyra MD PCP - General 04/08/09 03/15/19 documented as of this encounter
--- OUTSIDE RECORDS SUMMARY | 2024-08-23 23:32 | XMS_ITS | Encounter Summary ---
Author Organization [facility] Address [address] [place] [address] Care Team Providers Care Jewelry Bearing Maker Name Role Phone Shannan Vieyra MD Primary Care Provider Unavail able Reason for Visit * Reason Comments Thyroid Problem Encounter Details Date Type Department Care Team (Latest Contact Info) Description 03/23/2011 11:00 EDT Office Visit [facility] Endocrinology - [address] [address] Juan Pablo Toth MD [address] [facility] [address] [place] [address] Other postablative hypothyroidism (Primary Dx) [...] 1.21 02/08/2011 Lab Results Component Value Date [id number] 116 03/23/2011 Lab Results Component Value Date C9RXALD 23.9* 10/25/2007 Lab Results Component Value Date [...] (specimen) 03/23/2011 11:55 EDT 03/23/2011 11:56 EDT us Juan Pablo Toth MD CHEMISTRY & BLOOD GAS ELLEN LAL Final Result Performing Organization Address City/State/[facility] Co de Phone Number [facility] [address] [place] [address] documented in this encounter Visit Diagnoses Diagnosis Other postablative hypothyroidism- Primary documented in this encounter Orders Lab Orders Without Results Count Last Ordered D ate First Ordered Date T4 FREE 1 03/23/2011 TSH 1 03/23/2011 documented in this encounter Care Teams Jewelry Bearing Maker Relationship Specialty Start Date End Date Shannan Vieyra MD PCP - General 04/08/09 03/15/19 documented as of this encounter
--- OUTSIDE RECORDS SUMMARY | 2024-08-23 23:32 | XMS_ITS | Encounter Summary ---
Author Organization [facility] Address [address] [place] [address] Care Team Providers Care Priming Mixture Carrier Name Role Phone Shannan Vieyra MD Primary Care Provider Unavail able Reason for Visit * Reason Comments New Patient Visit cholelistiasis on ct Encounter Details Date Type Department Care Team (Late st Contact Info) Description 04/09/2014 11:30 EDT Office Visit [facility] General Surgery - [address] [phone] Mouna Maradiaga MD [address] [place] [address], Level [address] [place] [address] Cholelithiasis (Primary Dx) Discharge Disposition: [...] (04/11/2014 10:27 EDT) 04/11/2014 10:2 7 EDT us Scan 2 Instructional Services Librarian PROCEDURE/MINOR SURGICAL OR DERABLES Final Result * EKG 12-LEAD (04/09/2014 12:32 EDT) 04/09/2014 12:3 2 EDT Narrative [facility] EKG - 04/10/2014 10:21 EDT ?[facility] ? Test Date: ?2014-04-09 Pat Name: ? DORIS MADHU ? Department: ?? MP5 Gen Surg ? Room: ? Gender: ? F ?[place] Rafting Guide: ?? [id number] : ?1980 ? Requested By: MOUNA MARADIAGA Order Number: [id number] ? Reading MD: ?? CLARY MCCOY MD ? Measurements Intervals ?[place] ? Rate: ? 71 ? P: ?13 IA: ? 182 ?QRS: ?93 QRSD: ? 79 [...] Date: 2014-04-09 Pat Name: DORIS KERR Department: [facility] Gen Surg Room: Gender: [place] Rafting Guide: [id number] : 1980 Requested By: MOUNA MARADIAGA MD Order Number: [id number] Reading MD: CLARY MCCOY MD Measurements Intervals [place] Rate: 71 P: 13 IA: 182 QRS: 93 QRSD: 79 T: 39 QT: 346 QTc: 377 Interpretive Statements SINUS RHYTHM BORDERLINE RIGHT AXIS DEVIATION Compared to ECG 09/25/2007 11:27:30 Sinus rhythm now present I reviewed the tracing and agreed or edited the report. ElectronicallySigned On 04-10-14 10:21:00 EDT by CLARY MCCOY MD. us Mouna Maradiaga MD CARDIAC ECG ORDERABLES Final R esult [facility] EKG documented in this encounter Visit Diagnoses Diagnosis Cholelithiasis- Primary Calculus of gallbladder without mention of cholecystitis or obstruction documented in this encounter Care Teams Priming Mixture Carrier Relationship Specialty Start Date End Date Shannan Vieyra MD PCP - General 04/08/09 03/15/19 documented as of this encounter
--- OUTSIDE RECORDS SUMMARY | 2024-08-23 23:32 | XMS_ITS | Encounter Summary ---
Author Organization [facility] Address [address] [place] [address] Care Team Providers Care Upper Inspector Name Role Phone Shannan Vieyra MD Primary Care Provider Unavail able Reason for Visit * Reason Onset Date Comments Medications Refill 06/06/2012 Encounter Details Date Type Department Care Team (Late st Contact Info) Description 06/06/2012 Refill [facility] Family Medicine [address] [phone] Shannan Vieyra MD Medications Refill Social History [...] Refills Last Filled Start Date End Date lisinopril-hydrochl orothiazide (PRINZIDE, ZESTORETIC) 20-12.5 mg per tabletIndications:H ypertension Take 1 Tab by mouth daily. 90 Tab 0 06/06/2012 06/14/2012 documented in this encounter Miscellaneous Notes * Telephone Encounter - Mary Hitchcock - 06/06/2012 1111 EDT Medication Requested - lisinopril-hctz Last Refill Date - 03.09. Last Visit Date - 2.20.12 Next Visit Date - 9.5.12 Is patient out of medication? yes documented [...] documented as of this encounter Care Teams Upper Inspector Relationship Specialty Start Date End Date Shannan Vieyra MD PCP - General 04/08/09 03/15/19 documented as of this encounter
--- OUTSIDE RECORDS SUMMARY | 2024-08-23 23:32 | XMS_ITS | Encounter Summary ---
Author Organization [facility] Address [address] [place] [address] Care Team Providers Care Wet Roaster Name Role Phone Shannan Vieyra MD Primary Care Provider Unavail able Reason for Visit * Reason Comments Abdominal Pain LUQ radiating to michel k, started at 1999. Encounter Details Date Type Department Care Team (Late st Contact Info) Description 03/08/2013 23:08 EDT - 03/09/2013 1:26 EDT Emergency [facility] Emergency Department - [address] [phone] Rita Weber MD [address] [place] [address], Level 1 [place] [phone] Emergency, MD Keli Abdominal pain [...] ??F) 03/08/2013 2311 EDT Respiratory Rate 14 03/08/2013 2311 EDT Oxygen Saturation 100% 03/08/2013 2311 EDT Inhaled Oxygen Concentration - - Weight 77.1 kg (170 lb) 03/08/20132310 EDT Height 162.6 cm (5' 4) 03/08/20132310 EDT Body Mass Index 29.18 03/08/20132310 EDT documented in this encounter Discharge Instructions * Attachments The following attachments cannot be sent through Care Everywhere. * ABDOMINAL PAIN: AFTER YOUR VISIT TO THE EMERGENCY ROOM (LIBYAN) documented in this encounter Medications at Time of Discharge albuterol (PROVENTIL HFA, VENTOLIN HFA) 90 mcg/actuation inhalerIndications:R AD (reactive airway disease) Inhale 2 Puffs as directed every 4 hours as needed for Wheezing. 1 Inhaler 2 11/29/2011 3 levonorgestrel-ethin yl estradiol (SEASONALE) 0.15-30 mg-mcg per tablet Take 1 Tab by mouth daily. 0 lisinopril-hydrochlo rothiazide (PRINZIDE, ZESTORETIC) 20-12.5 mg per tabletIndications:Hy pertension Take 1 Tab by mouth daily. 90 Tab 3 06/14/2012 4 thyroid (ARMOUR THYROID) 15 mg tabletIndications:Ot her iatrogenic hypothyroidism Take 1 Tab by mouth daily. 90 Each 3 11/06/2012 4 thyroid (ARMOUR) 90 mg tabletIndications:Ot her iatrogenic hypothyroidism Take 1 Tab by mouth daily. (Cancel order/refills on 120 mg dose) 90 Each 3 06/19/2012 4 documented as of this encounter Discharge Disposition [...] 2310 EDT TCALL: DORIS KERR (katerina) [facility] MED RESIDENT REFERS PT TO [facility] FOR EVAL. CC: ACUTE LUQ ABD PN, KNOWN GALLSTONES. (GMD) documented in this encounter Miscellaneous Notes * Scanned Note-Null - PACKAGE SEALER MACHINE, SCAN 2 - 03/13/2013 4264 EDT documented in this encounter Plan of [...] Neg [facility] Bilirubin Neg Neg [facility] Ketones Neg Neg [facility] Specific [place] 1.025 1.001 - 1.035 [facility] Blood Neg Neg [facility] pH 7.0 4.6 - 8.0 [facility] Protein Neg Neg [facility] Urobilinogen 0.2 0.2 - 1.0 E.U./dl [facility] Nitrite Neg Neg [facility] Leuk Esterase 1+(A) Neg KATHYA [facility] short story writer ID [id number] [facility] Comment:Test performed at Em ergency Department Urine specimen (specimen) 03/09/2013 0:41 EDT 03/09/2013 0:45 EDT Rita Weber MD POINT OF CARE TEST ORDERABL ES Final Result [facility] [address] [place] [address] documented in this encounter Visit Diagnoses Diagnosis [...] 03/08/2013 documented in this encounter Care Teams Wet Roaster Relationship Specialty Start Date End Date Shannan Vieyra MD PCP - General 04/08/09 03/15/19 documented as of this encounter
--- OUTSIDE RECORDS SUMMARY | 2024-08-23 23:32 | XMS_ITS | Encounter Summary ---
Author Organization [facility] Address [address] [place] [address] Care Team Providers Care Mental Health Nurse Name Role Phone Shannan Vieyra MD Primary Care Provider Unavail able Reason for Referral * Consult (Routine/Next Available) - Closed Specialty Diagnoses / Procedures Referred By Julianne gallo Referred To Contact Otolaryngology Diagnoses Hoarseness of voice Leida Man PA-C Phone: tel: fax: Carter Reece MD Phone: tel: fax: Referral ID Status Reason Start Date Expiration Date V isits Requested Visits Authorized [id number] Closed Specialty Services Required 06/14/2012 1 1 Question Answer Reason for Request: hoarseness Comments Hoarseness of voice since radioactive iodine tx to thyroid Reason for Visit * Reason Comments Hypertension been running high, h ere for check Encounter Details Date Type Department Care Team (Late st Contact Info) Description 06/14/2012 10:00 EDT Office Visit [facility] [address] [phone] Leida Man PA-C [address] [place] [address] [phone] Hypertension (Primary Dx); Other iatrogenic hypothyroidism; Grave's [...] Refills Last Filled Start Date End Date thyroid (ARMOUR) 90 mg tabletIndications:Ot her iatrogenic hypothyroidism Take 1 Tab by mouth daily. (Cancel order/refil ls on 120 mg dose) 90 Each 3 06/19/2012 4 thyroid (ARMOUR THYROID) 120 mg tabletIndications:Ot her iatrogenic hypothyroidism Take 1 Tab by mouth daily. 90 Each 3 06/14/2012 2 lisinopril-hydrochlo rothiazide (PRINZIDE, ZESTORETIC) 20-12.5 mg per tabletIndications:Hy pertension Take 1 Tab by mouth daily. 90 Tab 3 06/14/2012 4 documented in this encounter Progress Notes * [...] (specimen) 10/23/2012 16:37 EST 10/23/2012 18:28 EST us Leida Man PA-C CHEMISTRY & BLOOD G ORDERABLES Final Result Performing Organization Address City/[facility]/ZIP Co de Phone Number [facility] [address] [place] [address] * (ABNORMAL) T3, TOTAL (10/23/2012 16:37 EST) T3, Total 55(L) 60 - 181 ng/dL [facility] Blood specimen (specimen) 10/23/2012 16:37 EST 10/23/2012 18:28 EST Leida Man PA-C CHEMISTRY & BLOOD G ORDERABLES Final Result Performing Organization Address [facility] Co de Phone Number [facility] [address] [place] [address] * (ABNORMAL) TSH (10/23/2012 16:37 EST) TSH 9.78(H) 0.35 - 5.00 uIU/ml [facility] Blood specimen (specimen) 10/23/2012 16:37 EST 10/23/2012 18:28 EST Leida Man PA-C CHEMISTRY & BLOOD G ORDERABLES Final Result Performing Organization Address City/[facility] Co de Phone Number [facility] [address] [place] [address] * (ABNORMAL) T3, TOTAL (06/14/2012 10:47 EDT) T3, Total 263(H) 60 - 181 ng/dL [facility] Blood specimen (specimen) 06/14/2012 10:47 EDT 06/14/2012 11:59 EDT Leida Man PA-C CHEMISTRY & BLOOD G ORDERABLES Final Result Performing Organization Address [facility] de Phone Number [facility] [address] [place] [address] * T4 FREE (06/14/2012 10:47 EDT) Free T4 1.5 0.8 - 1.8 ng/dL [facility] Blood specimen (specimen) 06/14/2012 10:47 EDT 06/14/2012 11:59 EDT Leida Man PA-C CHEMISTRY & BLOOD G ORDERABLES Final Result Performing Organization Address [facility] Phone Number [facility] [address] [place] [address] * (ABNORMAL) TSH (06/14/2012 10:47 EDT) Pathologist [facility] TSH <0.02(L) 0.35 - 5.00 uIU/ml [facility] Blood specimen (specimen) 06/14/2012 10:47 EDT 06/14/2012 11:59 EDT Leida Man PA-C CHEMISTRY & BLOOD G ORDERABLES Final Result Performing Organization Address [facility] de Phone Number [facility] [address] [place] [address] * BASIC METABOLIC PANEL (06/14/2012 10:47 EDT) Sodium 136 136 - 145 mEq/L [facility] Potassium 4.0 3.5 - 5.0 mEq/L [facility] Chloride 100 96 - 110 mEq/L [facility] CO2 24 24 - 32 mEq/L [facility] BUN 15 10 - 26 mg/dl [facility] Creatinine 0.66 0.52 - 1.04 mg/dl [facility] GFR, Calculated >60 >60 ml/min/1.7 3m2 [facility] Calcium 10.1 8.5 - 10.5 mg/dl [facility] Calculated Calcium 10.0 8.5 - 10.5 mg/dl [facility] Glucose, Serum 83 70 - 100 mg/dl [facility] Fasting? Yes [facility] Blood specimen (specimen) 06/14/2012 10:47 EDT 06/14/2012 11:59 EDT us Leida Man PA-C CHEMISTRY & BLOOD G ORDERABLES Final Result [facility] [address] [place] [address] documented in this encounter Visit Diagnoses Diagnosis [...] documented as of this encounter Care Teams Mental Health Nurse Relationship Specialty Start Date End Date Shannan Vieyra MD PCP - General 04/08/09 03/15/19 documented as of this encounter
--- OUTSIDE RECORDS SUMMARY | 2024-08-23 23:32 | XMS_ITS | Encounter Summary ---
Author Organization [facility] Address [address] [place] [address] Care Team Providers Care Wood Milling Machine Tender Name Role Phone Shannan Vieyra [...] 1:50 EST - 10/27/2013 6:03 EST Emergency [facility] Emergency Department - Main [address] [phone] Leida Isaacs PA-C [address] [place] [phone] Keily Mosley PA-C [address] [place] [phone] Emergency, MD Keli Abdominal pain (Primary [...] Everywhere. * ABDOMINAL PAIN: AFTER YOUR VISIT (HEBREW) documented in this encounter Medications at Time of Discharge doxycycline (VIBRA-TABS) 100 mg tabletIndications:Ce llulitis Take 1 Tab by mouth 2 times daily for 7 days. 14 Tab 0 05/21/2013 6 EPINEPHrine (EPIPEN) 0.3 mg/0.3 mL (1:1,000) injectionIndications :Bee sting Inject 0.3 mL into the muscle once as needed (allergic reaction) for 1 dose. 1 Syringe 6 05/21/2013 4 levonorgestrel-ethin yl estradiol (SEASONALE) 0.15-30 mg-mcg per tablet Take 1 Tab by mouth daily. 0 lisinopril-hydrochlo rothiazide (PRINZIDE, ZESTORETIC) 20-12.5 mg per tablet Take 1 Tab by mouth daily. 90 Tab 0 10/16/2013 4 ondansetron (ZOFRAN-ODT) 4 mg disintegrating tablet Take 1 Tab by mouth every 8 hours as needed for Nausea for 12 doses. 12 Tab 0 06/24/2013 4 oxyCODONE-acetaminop hen (PERCOCET) 5-325 mg per tablet Take 1 Tab by mouth every 6 hours as needed for Pain for 12 doses. 12 Tab 0 06/24/2013 4 Thyroid, Pork, (ARMOUR THYROID) 90 mg tablet Take 1 Tab by mouth daily. 90 Tab 0 10/16/2013 4 documented as of this encounter Discharge [...] Yes Urine specimen (specimen) 10/27/2013 5:15 EST [facility] PA-C POINT OF CARE TEST ORDE RAB[employer]merge Studio Final Result * (ABNORMAL) POCT URINE DIPSTICK (10/27/2013 5:13 EST) Color YELLOW [facility] Clarity, UA Clear [facility] Glucose Neg Neg [facility] Bilirubin Neg Neg [facility] Ketones Neg Neg [facility] Specific [place] 1.015 1.001 - 1.035 [facility] Blood Neg Neg [facility] pH 6.5 4.6 - 8.0 [facility] Protein Neg Neg [facility] Urobilinogen 0.2 0.2 - 1.0 E.U./dl [facility] Nitrite Neg Neg [facility] Leuk Esterase Trace(A) Neg KATHYA [facility] insulation worker apprentice ID [id number] [facility] Comment:Test performed at Em ergency Department Urine specimen (specimen) 10/27/2013 5:13 EST 10/27/2013 5:14 EST [facility] PA-C POINT OF CARE TEST ORDE RABLES Final Result [facility] [address] [place] [address] * ED/WICC ADD-ON (10/27/2013 4:29 EST) Tests to be added BUN AND CREATININE ,ELECTROLY VICTORIANO,GLUCOS E, SERUM,YIN GRAM WITH DIFFERENTI AL,LIPASE, LIVER PANEL [facility] Number for problems [id number] (ED) [facility] 10/27/2013 4:29 EST 10/27/2013 4:29 EST Leida Andrei Isaacs PA-C HEMATOLOGY & PF4 ORDERA BLES Final Result Performing Organization Address City/[facility]/ZIP Co de Phone Number [facility] [address] [place] [address] * DIFFERENTIAL (10/27/2013 2:19 EST) % Neutrophils [...] [facility] Type of Diff: Automated [facility] 10/27/2013 2:19 EST 10/27/2013 2:31 EST Leida Isaacs PA-C HEMATOLOGY & PF4 ORDERA BLES Final Result Performing Organization Address City/[facility]/ZIP Co de Phone Number [facility] [address] [place] [address] * HEMAGRAM (10/27/2013 2:19 EST) WBC 8.16 4.0 - 12.4 K/cmm [facility] RBC 4.36 3.86 - 5.04 M/cmm [facility] Hemoglobin 13.3 11.6 - 15.2 gm/dl [facility] HCT 39.0 34.9 - 44.4 % [facility] MCV 89 81 - 98 fl [facility] MCH 30.4 26.7 - 33.3 pg [facility] MCHC 34.0 32.1 - 35.9 gm/dl [facility] PLT 263 141 - 320 K/cmm [facility] RDW-CV 13.3 11.7 - 14.6 % [facility] 10/27/2013 2:19 EST 10/27/2013 2:31 EST Leida Isaacs PA-C HEMATOLOGY & PF4 ORDERA BLES Final Result Performing Organization Address [facility] de Phone Number [facility] [address] [place] [address] * GLUCOSE, SERUM (10/27/2013 2:19 EST) Pathologist [facility] Glucose, Serum 99 70 - 100 mg/dl [facility] 10/27/2013 2:19 EST 10/27/2013 2:31 EST Leida GOMEZC CHEMISTRY & BLOOD GAS O RDERABLES Final Result Performing Organization Address [facility] de Phone Number [facility] [address] [place] [address] * (ABNORMAL) ELECTROLYTES (10/27/2013 2:19 EST) Pathologist [facility] Sodium 135(L) 136 - 145 mEq/L [facility] Potassium 4.2 3.5 - 5.0 mEq/L [facility] Chloride 98 96 - 110 mEq/L [facility] CO2 29 24 - 32 mEq/L [facility] 10/27/2013 2:19 EST 10/27/2013 2:31 EST Leida Andrei Isaacs PA-C CHEMISTRY & BLOOD GAS O RDERABLES Final Result Performing Organization Address City/[facility]/ZIP Co de Phone Number [facility] [address] [place] [address] * (ABNORMAL) LIVER FUNCTION TESTS (10/27/2013 2:19 EST) Albumin 4.2 3.4 - 4.9 g/dl [facility] Total Protein 7.6 6.5 - 8.3 g/dl [facility] Total Alkaline Phosphatase 66 38 - 126 U/L [facility] ALT 40 9 - 52 U/L [facility] AST 23 15 - 46 U/L [facility] Unconjugated Bilirubin 0.0(L) 0.1 - 1.1 mg/dl [facility] Conjugated Bilirubin 0.0 0.0 - 0.3 mg/dl [facility] Bilirubin, Total <0.5 0.2 - 1.3 mg/dl [facility] 10/27/2013 2:19 EST 10/27/2013 2:31 EST Leida Isaacs PA-C CHEMISTRY & BLOOD GAS O RDERABLES Final Result Performing Organization Address [facility] Co de Phone Number [facility] [address] [place] [address] * LIPASE (10/27/2013 2:19 EST) Lipase 156 0 - 250 U/L [facility] 10/27/2013 2:19 EST 10/27/2013 2:31 EST Leida Andrei Isaacs PA-C CHEMISTRY & BLOOD GAS O RDERABLES Final Result Performing Organization Address [facility]/ZIP Co de Phone Number [facility] [address] [place] [address] * CREATININE (10/27/2013 2:19 EST) Creatinine 0.69 0.52 - 1.04 mg/dl [facility] GFR, Calculated >60 >60 ml/min/1.7 3m2 [facility] 10/27/2013 2:19 EST 10/27/2013 2:31 EST Leida B [place]ble [place] PA-C CHEMISTRY & BLOOD GAS O RDERABLES Final Result Performing Organization Address [facility] Co de Phone Number [facility] [address] [place] [address] * BUN (10/27/2013 2:19 EST) BUN 16 10 - 26 mg/dl [facility] 10/27/2013 2:19 EST 10/27/2013 2:31 EST [facility] B Humble [place] PA-C CHEMISTRY & BLOOD GAS O RDERABLES Final Result Performing Organization Address [facility] de Phone Number [facility] [address] [place] [address] * HOLD SST (10/27/2013 2:19 EST) Hold SST Hold for further testing. Specimen will be held for 5 days. [facility] Blood specimen (specimen) 10/27/2013 2:19 EST 10/27/2013 2:31 EST Leida Ometria-C LAB INFO SERVICE AND RAMIREZ PPORT & PHONE RESULT Final Result Performing Organization Address [facility] de Phone Number [facility] [address] [place] [address] * HOLD PURPLE TOP (10/27/2013 2:19 EST) Hold Purple Top EDTA for hematology will be discarded after 48 hours, differential not available after 12 hours. [facility] Blood specimen (specimen) 10/27/2013 2:19 EST 10/27/2013 2:31 EST Leida B [place]ale PA-C LAB INFO SERVICE AND RAMIREZ PPORT & PHONE RESULT Final Result [facility] [address] [place] [address] documented in this encounter Visit Diagnoses Diagnosis [...] RN) documented in this encounter Care Teams Wood Milling Machine Tender Relationship Specialty Start Date End Date Shannan Vieyra MD PCP - General 04/08/09 03/15/19 documented as of this encounter
--- OUTSIDE RECORDS SUMMARY | 2024-08-23 23:32 | XMS_ITS | Encounter Summary ---
Author Organization [facility] Address [address] [place] [address] Care Team Providers Care Painter And Decorator Apprentice Name Role Phone Shannan Vieyra MD Primary Care Provider Unavail able Reason for Visit * Reason Comments Hypertension BP check Encounter Details Date Type Department Care Team (Late st Contact Info) Description 03/09/2011 9:30 EDT Office Visit [facility] [place] [phone] Leida Man PA-C [address] [place] [phone] Hypertension; Fatigue; Myalgia; Vitamin D deficiency Social [...] Refills Last Filled Start Date End Date ergocalciferol (VITAMIN D) 50,000 unit capsuleIndications: Vitamin D deficiency Take 1 Cap by mouth once a week for 8 doses. 8 Cap 0 03/11/2011 04/30/2011 lisinopril-hydrochl orothiazide (PRINZIDE, ZESTORETIC) 20-12.5 mg per [...] on her hypothyroidism. 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 Hypertension This is a chronic problem. Associated [...] * VITAMIN D (25,OH) (03/09/2011 10:42 EDT) Pathologist [facility] 25OH Vitamin D Tot 20.6 ng/ml [facility] Comment: Reference Range: <10 ng/ml: Deficient 10-30 ng/ml: Insufficient 30-100 ng/ml: Sufficient >100 ng/ml: Toxic Blood specimen (specimen) 03/09/2011 10:42 EDT 03/09/2011 12:09 EDT Leida Man PA-C CHEMISTRY & BLOOD G ORDERABLES Final Result [facility] [address] [place] [address] * HEMAGRAM (03/09/2011 10:42 EDT) Pathologist [facility] WBC 7.25 4.0 - 12.4 K/cmm [facility] [...] (specimen) 03/09/2011 10:42 EDT 03/09/2011 12:09 EDT us Leida Man PA-C HEMATOLOGY & PF4 OR DERABLES Final Result Performing Organization Address City/[facility]/ZIP Co de Phone Number [facility] [address] [place] [address] * COMPREHENSIVE METABOLIC PANEL (CMP) (03/09/2011 10:42 [...] (specimen) 03/09/2011 10:42 EDT 03/09/2011 12:09 EDT us Leida Man PA-C CHEMISTRY & BLOOD G ORDERABLES Final Result Performing Organization Address City/[facility]/ZIP Co de Phone Number [facility] [address] [place] [address] documented in this encounter Visit Diagnoses Diagnosis [...] documented as of this encounter Care Teams Painter And Decorator Apprentice Relationship Specialty Start Date End Date Shannan Vieyra MD PCP - General 04/08/09 03/15/19 documented as of this encounter
--- OUTSIDE RECORDS SUMMARY | 2024-08-23 23:32 | XMS_ITS | Encounter Summary ---
Author Organization [facility] Address [address] [place] [id number] Care Team Providers Care Lay Health Advocate Name Role Phone Shannan Vieyra MD Primary Care Provider Unavail able Reason for Visit * Reason Comments Cough For about 2 weeks, c ant catch her breath, just seems to get worse. Cough is productive. Encounter Details Date Type Department Care Team (Late st Contact Info) Description 11/29/2011 9:30 EST Office Visit [facility] - [address] [address] Jayashree Torres MD [address] [place] [phone] Bronchitis, acute; RAD (reactive airway disease) [...] from the original note were not included. [facility] Patient Instructions Bronchitis in Adults: After Your [...] antibiotics. Get some extra rest. Take an snag-zsl-gayppkf pain medicine, such as acetaminophen (Tylenol), ibuprofen (Advil, Motrin),or naproxen (Aleve) to reduce fever and relieve body aches. Read and follow all instructions on thelabel. Take an nzpy-kxk-uoxzydb cough medicine that contains dextromethorphan to help [...] Where can you learn more? Go to www.[facility].net/fahc Enter H333 in the search box to learn more about Bronchitis in Adults: After Your Visit. ?? [id number] [facility] Hospital[facility]. Care instructions adapted under license by [facility], [facility]. This care instruction is for use with your licensed healthcare professional. If you have questions about a medical condition or this instruction, always ask your healthcare professional. [facility] disclaims any warranty or liability for your use of this information. Content Version: 8.9.20305; Last Revised: January 15, 2009[facility] Patient Instructions Learning About Asthma Triggers What [...] action plan, follow the plan. In general: YUSO-EFUXN-OXKE: ambler; MARGIN-BOTTOM: 0mm Use your quick-relief inhaler as directed by your doctor. If your symptoms do not get better after you use your medicine, have someone take you to the emergency room. Call an ambulance if needed. If your doctor has given you other inhaled medicines or steroid pills, take them as directed. Where can you learn more? Go to www.[email or web address]/fahc Enter M564 in the search box to learn more about Learning About Asthma Triggers. ?? [phone] [employer]. Care instructions adapted under license by [facility], Inc. This care instruction is for use with your licensed healthcare professional. If you have questions about a medical condition or this instruction, always ask your healthcare professional. [employer] disclaims any warranty or liability for your use of this information. Content Version: 8.9.55908; Last Revised: December 15, 2009[facility] Patient Instructions Using a Metered-Dose Inhaler: After [...] a Metered-Dose Inhaler: After Your Visit. ?? [phone] [employer]. Care instructions adapted under license by [facility], [facility]. This care instruction is for use with your licensed healthcare professional. If you have questions about a medical condition or this instruction, always ask your healthcare professional. [employer] disclaims any warranty or liability for your use of this information. Content Version: 8.9.98709; Last Revised: March 27, 2010 documented in this encounter Ordered Prescriptions Prescription Sig Dispense Quantity Refills Last Filled Start Date End Date albuterol (PROVENTIL HFA, VENTOLIN HFA) 90 mcg/actuation inhalerIndications :RAD (reactive airway disease) Inhale 2 Puffs as directed every 4 hours as needed for Wheezing. 1 Inhaler 2 11/29/2011 3 azithromycin (ZITHROMAX) 250 mg tabletIndications: Bronchitis, acute Take 2 tablets (500 mg) on day 1, followed by 1 tablet (250 mg) once daily on days 2 through 5. 6 Tab 0 11/29/2011 2 documented in this encounter Progress Notes * Jayashree Bruno MD - 11/29/2011 1018 EST Subjective: Patient ID: Doris Kerr is an 31 y.o. female. Chief Complaint Patient presents with ??? Cough For about 2 weeks, cant catch her breath, just seems to get worse. Cough is productive. 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
--- OUTSIDE RECORDS SUMMARY | 2024-08-23 23:32 | XMS_ITS | Encounter Summary ---
Author Organization [facility] Address [address] [place] [address] Care Team Providers Care Orthopaedic Physician Assistant Name Role Phone Shannan Vieyra MD Primary Care Provider Unavail able Reason for Visit * Reason Onset Date Comments Results 02/09/2011 Encounter Details Date Type Department Care Team (Late st Contact Info) Description 02/09/2011 Telephone [facility] Endocrinology - [address] [address] Madan Jiang, RN Results Social [...] * Telephone Encounter - Madan Jiang - 02/09/2011 4557 EDT Pt called told of increase in meds. Patient Education Topic: .hyperthyroidism difficulty sleeping , heat intolerane, increased sweating, menstrual irregularities, nervousness, rapid/irregular hearbeat, throat and neck pain, weight loss, fatigue Method: Verbal Taught to: Patient Barriers: None Outcomes: independent Signature:MADAN JIANG RN * Telephone Encounter - Madan Jiang - 02/09/2011 1384 EDT Message copied by MADAN JIANG on TueFebruary 09, 2011 1657 ------ Message from: AUGUSTA ROD Created: TueFebruary 09, 2011 1311 Up-titrate to 125 mcg/da y Madan please call her and tell to watch for palpitations I already called PHARM and ordered documented in this encounter Plan of Treatment Not on file documented as of this encounter Visit Diagnoses Not on filedocumented in this encounter Care Teams Orthopaedic Physician Assistant Relationship Specialty Start Date End Date Shannan Vieyra MD PCP - General 04/08/09 03/15/19 documented as of this encounter
--- OUTSIDE RECORDS SUMMARY | 2024-08-23 23:32 | XMS_ITS | Encounter Summary ---
Author Organization [facility] Address [address] [place] [address] Care Team Providers Care Vegetable Worker Name Role Phone Shannan Vieyra MD Primary Care Provider Unavail able Reason for Visit * Reason Onset Date Comments Results 03/25/2011 Encounter Details Date Type Department Care Team (Late st Contact Info) Description 03/25/2011 Telephone [facility] Endocrinology - [facility] [address] [place] [address] Juan Pablo Toth MD [address] [facility] [address] [place] [address] Results Social History Tobacco Use [...] filedocumented in this encounter Care Teams Vegetable Worker Relationship Specialty Start Date End Date Shannan Vieyra MD PCP - General 04/08/09 03/15/19 documented as of this encounter
--- OUTSIDE RECORDS SUMMARY | 2024-08-23 23:32 | XMS_ITS | Encounter Summary ---
Author Organization [facility] Address [address] [place] [address] Care Team Providers Care Cruise Agent Name Role Phone Shannan Vieyra MD Primary Care Provider Unavail able Encounter Details Date Type Department Care Team (Late st Contact Info) Description 11/06/2012 Orders Only [facility] Medicine [place] [id number] Leida Cerda PA-C [address] [facility] [address] [place], [place] [address] Other iatrogenic hypothyroidism (Primary Dx) Social History [...] Last Filled Start Date End Date thyroid (ARMOUR THYROID) 15 mg tabletIndications:Ot her iatrogenic hypothyroidism Take 1 Tab by mouth daily. 90 Each 3 11/06/2012 4 documented in this encounter Progress Notes * Leida Cerda PA - 11/06/2012 1404 EST Phone call with pt. TSH is now high on 90mg of Poyen Thyroid. Her TSH was low on 120 [...] Primary documented in this encounter Care Teams Cruise Agent Relationship Specialty Start Date End Date Shannan Vieyra MD PCP - General 04/08/09 03/15/19 documented as of this encounter
--- OUTSIDE RECORDS SUMMARY | 2024-08-23 23:32 | XMS_ITS | Encounter Summary ---
Author Organization [facility] Address [address] [place] [address] Care Team Providers Care Dental Instructor Name Role Phone Shannan Vieyra MD Primary Care Provider Unavail able Reason for Visit * Reason Onset Date Comments Insect Bite 05/21/2012 Encounter Details Date Type Department Care Team (Late st Contact Info) Description 05/21/[address] [address] Oli Yanes MD Insect Bite Social History [...] Encounter - Oli Yanes MD - 05/21/2012 1931 EDT Telephone Call Encounter: CC: Insect bite [...] lesion does not improve. OLI YANES MD Apparel Sales Associate Pager [phone] 05/21/2012 19:31 documented in this encounter Plan of Treatment Not on file documented as of this encounter Visit Diagnoses Not on filedocumented in this encounter Care Teams Dental Instructor Relationship Specialty Start Date End Date Shannan Vieyra MD PCP - General 04/08/09 03/15/19 documented as of this encounter
--- OUTSIDE RECORDS SUMMARY | 2024-08-23 23:32 | XMS_ITS | Encounter Summary ---
Author Organization [facility] Address [address] [place] [address] Care Team Providers Care Cto Name Role Phone Shannan Vieyra MD Primary Care Provider Unavail able Reason for Visit * Reason Onset Date Comments Medications Refill 02/24/2011 Encounter Details Date Type Department Care Team (Late st Contact Info) Description 02/24/[address] [address] Shannan Vieyra MD Medications Refill Social History [...] hypertension documented in this encounter Care Teams Cto Relationship Specialty Start Date End Date Shannan Vieyra MD PCP - General 04/08/09 03/15/19 documented as of this encounter
--- OUTSIDE RECORDS SUMMARY | 2024-08-23 23:32 | XMS_ITS | Encounter Summary ---
Author Organization [facility] Address [address] [place] [address] Care Team Providers Care Welder Repair Name Role Phone Shannan Vieyra MD Primary [...] 5:15 EDT - 01/25/2014 6:56 EDT Emergency [facility] Emergency Department - Main [place] [address] [place] [address] Samanta Amador PA-C [address] [place] [address] Michael Lundy PA-C [address] [place], [place] [address] Emergency, MD Keli Abdominal pain (Primary Dx) [...] Reading Time Taken Comments Blood Pressure 134/95 01/25/2014521 EDT Pulse 88 01/25/2014 0600 EDT Temperature 36.2 ??C (97.2 ??F) 01/25/2014521 EDT Respiratory Rate 16 01/25/2014 0600 EDT Oxygen Saturation 98% 01/25/2014599 EDT Inhaled Oxygen Concentration - - Weight [...] Time of Discharge doxycycline (VIBRA-TABS) 100 mg tabletIndications :Cellulitis Take 1 Tab by mouth 2 times daily for 7 days. 14 Tab 0 05/21/2013 02/26/2016 EPINEPHrine (EPIPEN) 0.3 mg/0.3 mL (1:1,000) injectionIndicati ons:Bee sting Inject 0.3 mL into the muscle once as needed (allergic reaction) for 1 dose. 1 Syringe 6 05/21/2013 09/04/2014 levonorgestrel-et hinyl estradiol (SEASONALE) 0.15-30 mg-mcg per tablet Take 1 Tab by mouth daily. 06/25/2020 lisinopril-hydroc hlorothiazide (PRINZIDE, ZESTORETIC) 20-12.5 mg per tablet Take 1 Tab by mouth daily. 90 Tab 0 10/16/2013 02/20/2014 oxyCODONE-acetami nophen (PERCOCET) 5-325 mg per tablet Take 1 [...] tenderness, guarding or CVA tenderness Discharge home, [id number] analgesia, stressed the importance once again of [...] is comfortable with this. [facility]. Disposition: Discharged The [...] available for supervision. 01/28/2014 10:12 * Pranay Vallecillo RN - 01/25/2014 0521 EDT LLQ abdominal [...] ABS Monocytes 0.56 0.1 - 0.8 K/cmm [facility] ABS Eosinophils 0.24 0.03 - 0.61 K/cmm [facility] ABS Basophils 0.05 0.01 - 0.11 K/cmm [facility] Type of Diff: Automated [facility] 01/25/2014 5:38 EDT 01/25/2014 6:00 EDT Samanta Amador PA-C HEMATOLOGY & PF4 ORDERABLES Final Result Performing Organization Address City/[facility]/ZIP Co de Phone Number [facility] [address] [place] [address] * HEMAGRAM (01/25/2014 5:38 EDT) WBC 6.13 4.0 - 12.4 K/cmm [facility] RBC 4.59 3.86 - 5.04 M/cmm [facility] Hemoglobin 13.3 11.6 - 15.2 gm/dl [facility] HCT 39.3 34.9 - 44.4 % [facility] MCV 86 81 - 98 fl [facility] MCH 29.1 26.7 - 33.3 pg [facility] MCHC 33.9 32.1 - 35.9 gm/dl [facility] PLT 190 141 - 320 K/cmm [facility] RDW-CV 13.0 11.7 - 14.6 % [facility] 01/25/2014 5:38 EDT 01/25/2014 6:00 EDT Samanta Amador PA-C HEMATOLOGY & PF4 ORDERABLES Final Result Performing Organization Address City/[facility]/ZIP Co de Phone Number [facility] [address] [place] [address] * LIPASE (01/25/2014 5:38 EDT) Lipase 111 0 - 250 U/L [facility] Blood specimen (specimen) 01/25/2014 5:38 EDT 01/25/2014 6:00 EDT Samanta Amador PA-C CHEMISTRY & BLOOD GAS ORDERA BLES Final Result Performing Organization Address City/[facility]/ZIP Co de Phone Number [facility] [address] [place] [address] * (ABNORMAL) COMPREHENSIVE METABOLIC PANEL (CMP) (01/25/2014 5:38 EDT) Potassium 4.0 3.5 - 5.0 mEq/L [facility] Sodium 137 136 - 145 mEq/L [facility] Chloride 104 96 - 110 mEq/L [facility] CO2 25 24 - 32 mEq/L [facility] Total Alkaline Phosphatase 62 38 - 126 U/L [facility] Bilirubin, Total <0.5 <1.4 mg/dl [facility] AST 13(L) 15 - 46 U/L [...] EDT Samanta Amador PA-C CHEMISTRY & BLOOD GAS ORDERA BLES Final Result Performing Organization Address City/[facility]/ZIP Co de Phone Number [facility] [address] [place] [address] documented in this encounter Visit Diagnoses Diagnosis [...] 01/25/2014 documented in this encounter Care Teams Welder Repair Relationship Specialty Start Date End Date Shannan Vieyra MD PCP - General 04/08/09 03/15/19 documented as of this encounter
--- OUTSIDE RECORDS SUMMARY | 2024-08-23 23:32 | XMS_ITS | Encounter Summary ---
Author Organization [facility] Address [address] [place] [address] Care Team Providers Care Greenhouse Specialist Name Role Phone Shannan Vieyra MD Primary Care Provider Unavail able Reason for Visit * Reason Onset Date Comments Medications Refill 02/20/2014 Encounter Details Date Type Department Care Team (Late st Contact Info) Description 02/20/[address] [address] Shannan Vieyra MD Medications Refill Social History [...] THYROID FUNCTION LABS. 90 Tab 0 02/20/2014 4 lisinopril-hydroch lorothiazide (PRINZIDE, ZESTORETIC) 20-12.5 mg per tablet Take 1 Tab by mouth daily. 90 Tab 0 02/20/2014 4 Thyroid, Pork, (ARMOUR THYROID) 90 mg tablet Take 1 Tab by mouth daily. 90 Tab 0 02/20/2014 4 documented in this encounter Miscellaneous Notes [...] Pharmacy: [facility] Last Refill Date: 11.06.12. 9.07.22, 10.16.13 Last Visit Date: 06.14.12 Next Visit [...] documented as of this encounter Care Teams Greenhouse Specialist Relationship Specialty Start Date End Date Shannan Vieyra MD PCP - General 04/08/09 03/15/19 documented as of this encounter
--- OUTSIDE RECORDS SUMMARY | 2024-08-23 23:32 | XMS_ITS | Encounter Summary ---
Author Organization [facility] Address [address] [place] [address] Care Team Providers Care Community Service Aide Name Role Phone Shannan Vieyra MD Primary Care Provider Unavail able Encounter Details Date Type Department Care Team (Late st Contact Info) Description 03/09/2011 Phlebotomy Only [address] [address] Leather Carver, Outpatient Social History Tobacco Use Types Packs/Day [...] filedocumented in this encounter Care Teams Community Service Aide Relationship Specialty Start Date End Date Shannan Vieyra MD PCP - General 04/08/09 03/15/19 documented as of this encounter
--- OUTSIDE RECORDS SUMMARY | 2024-08-23 23:32 | XMS_ITS | Encounter Summary ---
Author Organization [facility] Address [address] [place] [address] Care Team Providers Care Solutions Consultant Name Role Phone Shannan Vieyra MD Primary Care Provider Unavail able Reason for Visit * Reason Onset Date Comments Other 04/13/2011 Medication Management 04/13/2011 Encounter Details Date Type Department Care Team (Late st Contact Info) Description 04/13/2011 Telephone [facility] Endocrinology - [facility] [address] [place] [address] Juan Pablo Toth MD [address] [facility] [address] [place] [address] Other; Medication Management Social History [...] - 04/15/2011 1338 EDT Pt switching to [facility] thyroid [address] Toth. Pt called message left about med switch and to get repeat labs in 6 weeks. MADAN JIANG RN * Telephone Encounter - Madan Jiang - 04/14/2011 0934 EDT Called pt She is aware of labs Would like to switch to [facility] thyroid. MADAN JIANG, RN * Telephone Encounter - Clarice Salazar - 04/13/2011 1036 EDT Pt has yet to hear from , states it has been over two weeks. Regarding labs. documented in this encounter Plan of Treatment Not on file documented as of this encounter Visit Diagnoses Not on filedocumented in this encounter Care Teams Solutions Consultant Relationship Specialty Start Date End Date Shannan Vieyra MD PCP - General 04/08/09 03/15/19 documented as of this encounter
--- OUTSIDE RECORDS SUMMARY | 2024-08-23 23:32 | XMS_ITS | Encounter Summary ---
Author Organization [facility] Address [address] [place] [address] Care Team Providers Care Beekeeper Name Role Phone Shannan Viyera MD Primary Care Provider Unavail able Encounter Details Date Type Department Care Team (Late st Contact Info) Description 05/31/2011 Phlebotomy Only [address] [address] Roving Frame Tender, Outpatient Grave's disease Social History Tobacco Use [...] Pablo Toth MD CHEMISTRY & BLOOD GAS ORDE RABLES Final Result Performing Organization Address [facility] de Phone Number [facility] [address] [place] [address] * (ABNORMAL) T3, TOTAL (05/31/2011 15:42 EDT) T3, Total 213(H) 60 - 181 ng/dL [facility] Blood specimen (specimen) 05/31/2011 15:42 EDT 05/31/2011 16:51 EDT Juan Pablo Toth MD CHEMISTRY & BLOOD GAS ORDE RABLES Final Result Performing Organization Address [facility] de Phone Number [facility] [address] [place] [address] * T4 FREE (05/31/2011 15:42 EDT) Free T4 1.5 0.8 - 1.8 ng/dL [facility] Blood specimen (specimen) 05/31/2011 15:42 EDT 05/31/2011 16:51 EDT Juan Pablo Toth MD CHEMISTRY & BLOOD GAS ORDE RABLES Final Result Performing Organization Address [facility] de Phone Number [facility] [address] [place] [address] documented in this encounter Visit Diagnoses Diagnosis Grave's disease Toxic diffuse goiter without mention of thyrotoxic crisis or storm documented in this encounter Care Teams Beekeeper Relationship Specialty Start Date End Date Shannan Vieyra MD PCP - General 04/08/09 03/15/19 documented as of this encounter
--- OUTSIDE RECORDS SUMMARY | 2024-08-23 23:32 | XMS_ITS | Encounter Summary ---
Author Organization [facility] Address [address] [place] [address] Care Team Providers Care Fur Dressing Supervisor Name Role Phone Isela Winter MD Primary Care Provider Unavail able Reason for Referral * (Routine) - Closed Specialty Diagnoses / Procedures Referred By Contac t Referred To Contact Jose Martin Perez MD Phone: tel: fax: Referral ID Status Reason Start Date Expiration Date V isits Requested Visits Authorized [id number] Closed Specialty Services Required 04/19/2014 1 1 [...] Referred To Contact Jose Martin Perez MD Phone: tel: fax: Referral ID Status Reason Start Date Expiration Date V isits Requested Visits Authorized [id number] Closed Specialty Services Required 04/19/2014 1 1 [...] Referred To Contact Jose Martin Perez MD Phone: tel: fax: Referral ID Status Reason Start Date Expiration Date V isits Requested Visits Authorized [id number] Closed Specialty Services Required 04/19/2014 1 1 Comments See Mouna Bonner MD. Please call for an appointment. [phone] Encounter Details Date Type Department Care Team (Late st Contact Info) Description 04/19/2014 7:59 EDT - 04/19/2014 16:02 EDT Hospital Encounter [facility] Perioperative Services- [address] [address] Mouna Maradiaga MD [address] [place] [address], [address] [place] [id number] Cholelithiasis (Primary Dx) Discharge Disposition: Home or [...] - Weight 79.4 kg (175 lb) 04/15/2014 0826 EDT Height 162.6 cm (5' 4) 04/15/2014 0826 EDT Body Mass Index 30.04 04/15/2014 0826 EDT documented in this encounter Discharge Diagnoses [...] Refills Last Filled Start Date End Date HYDROcodone-acetam inophen (NORCO) 5-325 mg tablet Take 1 Tab by mouth every 6 hours as needed for Pain. 15 Tab 0 04/19/2014 09/04/2014 documented in this encounter Discharge Disposition Disposition Code Departure Means Destination Home or Self Care documented in this encounter Progress Notes * Tracy Patton RN - 04/15/2014 0848 EDT Marcello Kerr has been instructed as follows regarding medication [...] Jose Martin Perez MD 04/19/2014 9:40 0962 Cosigned by Mouna Maradiaga MD at 04/19/2014 16:35 EDT Source Note - Mouna Maradiaga MD - 04/09/2014 17:25 EDT Subjective: Patient ID: Marcello Kerr is an 34 y.o. female. Chief [...] Surgery Surgeon: Dr. Mouna Maradiaga MD FACS Superintendent Landfill Operations(s): Jose Martin Perez MD Preoperative diagnosis / [...] PRN for pain. To f/u with Dr. Maradiaga [facility]. Jose Martin Perez 0962 documented in this encounter Nursing Notes * VASCULAR ULTRASOUND TECHNICIAN, SCAN 2 - 04/24/2014 1312 EDT documented in this encounter OR Notes * OR PreOp - VASCULAR ULTRASOUND TECHNICIAN, SCAN 2 - 04/25/2014 1305 EDT * Anesthesia Preprocedure Evaluation - VASCULAR ULTRASOUND TECHNICIAN, SCAN 2 - 04/25/2014 1305 EDT * OR PreOp - VASCULAR ULTRASOUND TECHNICIAN, SCAN 2 - 04/24/2014 1312 EDT * OR Surgeon - Mouna Maradiaga MD - 04/19/2014 1402 EDT OPERATIVE REPORT SERVICE DATE: 04/19/2014 PREOPERATIVE DIAGNOSES: Biliary colic, cholelithiasis, chronic cholecystitis. POSTOPERATIVE DIAGNOSES: Biliary colic, cholelithiasis, chronic cholecystitis. PROCEDURE: Laparoscopic cholecystectomy with intraoperative cholangiogram. SURGEON: Mouna Maradiaga MD, FACS CLIP LOADING MACHINE ADJUSTER: Jose Martin Perez MD ANESTHESIA: General endotracheal. [...] closed at the fascial level with a [id number] 0 Vicryl suture. Skin at all trocar [...] MD FACS 12 01 PM / Mouna Maradiaga MD FACS mn Confirmation: [id number] Dictation ID: [id number] cc:Isela Perez MD * Anesthesia Procedure Notes - VASCULAR ULTRASOUND TECHNICIAN, SCAN 2 - 04/19/2014 1222 EDT documented [...] (04/24/2014 13:12 EDT) 04/24/2014 13:1 2 EDT us Scan 2 Cpo PROCEDURE/MINOR SURGICAL OR DERABLES Final Result * SURGICAL PATHOLOGY (04/19/2014 13:35 EDT) Pathology Report: SURGICAL PATHOLOGY REPORT Reports generated via electronic interface contain original data; however they are lacking the format of the original report. Caution should be taken when reading/interpreti ng unformatted reports. Name: ? MADHU MARCELLO R ? Accession #: ? [id number] ? : ? 1980 (Age: 34) ??F ? Collect Date: ? 04/19/2014 ? Location: ? [facility] ? Receive Date: ? 04/19/2014 ? Provider: [...] x 1.5 cm in aggregate. ? Two resources representative sections and the inked en face cystic duct margin are submitted in 1. Dr. Peace 04/19/2014 02:25 PM End of Report [facility] 04/19/2014 13:3 5 EDT 04/19/2014 13:35 EDT us Mouna Maradiaga MD PATHOLOGY ORDERABLES Final Res ult [facility] [address] [place] [address] * INTRAOP CHOLANGIOGRAM (04/19/2014 11:17 EDT) Anatomical [...] seen. There is flow into the duodenum. us Mouna Maradiaga MD IMG DIAGNOSTIC IMAGING ORDERAB LES Final Result documented in this encounter Visit [...] Tue04/19/14 at 0945, Routine, Pre-Op DOS Rx ApprovedIndications:Maricruz lithiasis Given by Other 04/19/2014 10:40 EDT 900 mg fentaNYL citrate (PF) 50 mcg/mL injection 25-100 mcg 25-100 mcg, intravenous, EVERY 5 MIN PRN, Starting on Tue04/19/14 at 1156, Until Tue04/19/14 at 1804, Pain, Routine, Recovery (only) Given 04/19/2014 13:14 EDT 50 mcg lactated ringers (LR) infusion 25 mL/hr, intravenous, CONTINUOUS, Starting on Tue04/19/14 at 0945, Until Tue04/19/14 at 1804, Routine, Pre-Op DOS Rx ApprovedIndications:Maricruz lithiasis New Bag 04/19/2014 9:36 EDT 25 mL/hr [...] (Rate Documente d - Provider: Maria Guadalupe Uribe, DAXA) PRN Medication Order 04/17/2014 04/18/2014 04/19/2014 fentaNYL [...] 04/09 documented in this encounter Care Teams Fur Dressing Supervisor Relationship Specialty Start Date End Date Isela Winter MD PCP - General 04/08/09 03/15/19 documented as of this encounter
--- OUTSIDE RECORDS SUMMARY | 2024-08-23 23:32 | XMS_ITS | Encounter Summary ---
Author Organization [facility] Address [address] [place] [address] Care Team Providers Care Commercial Agent Name Role Phone Shannan Vieyra MD Primary Care Provider Unavail able Reason for Visit * Reason Onset Date Comments Medication Questions 03/04/2011 Encounter Details Date Type Department Care Team (Late st Contact Info) Description 03/04/[address] [facility] Endocrinology - [facility] [address] [place] [address] Juan Pablo Toth MD [address] [facility] [address] [place] [address] Medication Questions Social History Tobacco [...] Telephone Encounter - Sita Mo - 03/04/2011 8138 EDT Pt wants to speak to Dr Toth about changing medications. documented in this encounter Plan of Treatment Not on file documented as of this encounter Visit Diagnoses Not on filedocumented in this encounter Care Teams Commercial Agent Relationship Specialty Start Date End Date Shannan Vieyra MD PCP - General 04/08/09 03/15/19 documented as of this encounter
--- OUTSIDE RECORDS SUMMARY | 2024-08-23 23:32 | XMS_ITS | Encounter Summary ---
Author Organization [facility] Address [address] [place] [address] Care Team Providers Care Medical Practitioners Name Role Phone Shannan Vieyra MD Primary Care Provider Unavail able Reason for Visit * Reason Comments Abdominal Pain has appt with GI in April, for eval of gallstones with pancreatic flare ups. pt with increasing frequency and increasing pain. pt reports pain 910, 2 percocets at 2030. pt has been eating. + nausea. Encounter Details Date Type Department Care Team (Late st Contact Info) Description 02/28/2014 23:51 EDT - 03/01/2014 3:09 EDT Emergency [facility] Emergency Department - Main [place] [address], [place] [phone] Annie Pulido MD MPH [address] [facility], Level 1 [place] [address] Emergency, MD Keli Biliary calculus [...] - Weight 77.1 kg (170 lb) 02/28/2014 235 EDT Height 162.6 cm (5' 4) 02/28/2014 [...] AFTER YOUR VISIT TO THE EMERGENCY ROOM ([place]) documented in this encounter Medications at Time [...] Date: 03/01/14 10 Tab 0 03/01/2014 04/19/2014 levonorgestrel-e thinyl estradiol (SEASONALE) 0.15-30 mg-mcg per [...] Refills Last Filled Start Date End Date HYDROmorphone (DILAUDID) 2 mg tablet Take 1-2 Tabs by mouth every 6 hours as needed for Pain. Earliest Fill Date: 03/01/14 10 Tab 0 03/01/2014 4 documented in this encounter Discharge Disposition Disposition [...] Annie Pulido MD MPH HEMATOLOGY & PF4 ORDERABL ES Final Result Performing Organization Address [facility] Co de Phone Number [facility] [address] [place] [address] * HEMAGRAM (03/01/2014 0:35 EDT) WBC 8.79 [...] Annie Pulido MD MPH HEMATOLOGY & PF4 ORDERABL ES Final Result Performing Organization Address [facility] de Phone Number [facility] [address] [place] [address] * LIPASE (03/01/2014 0:35 EDT) Lipase 85 0 - 250 U/L [facility] Blood specimen (specimen) 03/01/2014 0:35 EDT 03/01/2014 0:58 EDT Annie Pulido MD MPH CHEMISTRY & BLOOD GAS ORD ERABLES Final Result Performing Organization Address [facility] Co de Phone Number [facility] [address] [place] [address] * HEPATIC FUNCTION PANEL (ALB,ALK PHOS,ALT,AST,DBIL,TOT YOGI,TOT PROT) (03/01/2014 0:35 EDT) Pathologist [facility] Albumin 3.9 3.4 - 4.9 g/dl [facility] [...] (specimen) 03/01/2014 0:35 EDT 03/01/2014 0:58 EDT us Annie Pulido MD MPH CHEMISTRY & BLOOD GAS ORD ERABLES Final Result [facility] [address] [place] [address] * (ABNORMAL) BASIC METABOLIC PANEL (03/01/2014 0:35 EDT) Pathologist [facility] Sodium 137 136 - 145 mEq/L [facility] [...] (specimen) 03/01/2014 0:35 EDT 03/01/2014 0:58 EDT us Annie Pulido MD MPH CHEMISTRY & BLOOD GAS ORD ERABLES Final Result [facility] [address] [place] [address] documented in this encounter Visit Diagnoses Diagnosis [...] at 0045, Until Tue03/01/14 at 0059, STAT Given 03/01/2014 0:59 EDT 1,000 mL [...] 03/01/2014 documented in this encounter Care Teams Medical Practitioners Relationship Specialty Start Date End Date Shannan Vieyra MD PCP - General 04/08/09 03/15/19 documented as of this encounter
--- OUTSIDE RECORDS SUMMARY | 2024-08-23 23:32 | XMS_ITS | Encounter Summary ---
Author Organization [facility] Address [address] [place] [address] Care Team Providers Care Environmental Manager Name Role Phone Shannan Vieyra MD Primary Care Provider Unavail able Encounter Details Date Type Department Care Team (Late st Contact Info) Description 10/23/2012 Phlebotomy Only [address] [address] Outsole Tacker, Outpatient Other iatrogenic hypothyroidism Social History Tobacco [...] 16:37 EST 10/23/2012 18:28 EST us Leida Cerda PA-C CHEMISTRY & BLOOD G ORDERABLES Final Result Performing Organization Address City/[facility]/ZIP Co de Phone Number [facility] [address] [place] [address] * (ABNORMAL) T3, TOTAL (10/23/2012 16:37 EST) T3, Total 55(L) 60 - 181 ng/dL [facility] Blood specimen (specimen) 10/23/2012 16:37 EST 10/23/2012 18:28 EST us Leida Cerda PA-C CHEMISTRY & BLOOD G ORDERABLES Final Result Performing Organization Address [facility] Co de Phone Number [facility] [address] [place] [address] * (ABNORMAL) TSH (10/23/2012 16:37 EST) TSH 9.78(H) 0.35 - 5.00 uIU/ml [facility] Blood specimen (specimen) 10/23/2012 16:37 EST 10/23/2012 18:28 EST us Leida Cerda PA-C CHEMISTRY & BLOOD G ORDERABLES Final Result Performing Organization Address City/[facility] Co de Phone Number [facility] [address] [place] [address] documented in this encounter Visit Diagnoses Diagnosis Other iatrogenic hypothyroidism documented in this encounter Care Teams Environmental Manager Relationship Specialty Start Date End Date Shannan Vieyra MD PCP - General 04/08/09 03/15/19 documented as of this encounter
--- OUTSIDE RECORDS SUMMARY | 2024-08-23 23:32 | XMS_ITS | Encounter Summary ---
Author Organization [facility] Address [address] [place] [address] Care Team Providers Care Clutch Operator Name Role Phone Shannan Vieyra MD Primary Care Provider Leida Robledo PA-C Primary Care Provi melvin Comfort Zelaya NP Primary Care Provider [phone] Reason for Visit * Reason Onset Date Comments Referral Request 02/06/2014 Encounter Details Date Type Department Care Team (Late st Contact Info) Description 02/06/2014 Telephone [facility] Family Medicine - [address] [address] Shannan Vieyra MD Referral Request Social History [...] on filedocumented in this encounter Care Teams Clutch Operator Relationship Specialty Start Date End Date Shannan Vieyra MD PCP - General 04/08/09 03/15/19 Leida Cerda PA-C PCP - General 03/16/19 03/07/22 Comfort Zelaya NP [address] [place] [phone] PCP - General Family Medicine - Primary Care 03/08/22 documented as of this encounter
--- OUTSIDE RECORDS SUMMARY | 2024-08-23 23:32 | XMS_ITS | Encounter Summary ---
Author Organization [facility] Address [address] [place] [address] Care Team Providers Care Quality Control Director Name Role Phone Shannan Vieyra MD Primary Care Provider Unavail able Encounter Details Date Type Department Care Team (Late st Contact Info) Description 10/23/2012 16:33 EST - 10/23/2012 23:59 EST Hospital Encounter [address] [address] Unknown, Provider, Leida Parks PA-C [address] [place] [phone] Discharge Disposition: Auto Discharge Social History Tobacco [...] daily. 90 Tab 3 06/14/2012 4 thyroid (ARMOUR) 90 mg tabletIndications:Ot her [...] on filedocumented in this encounter Care Teams Quality Control Director Relationship Specialty Start Date End Date Shannan Vieyra MD PCP - General 04/08/09 03/15/19 documented as of this encounter
--- OUTSIDE RECORDS SUMMARY | 2024-08-23 23:32 | XMS_ITS | Encounter Summary ---
Author Organization [facility] Address [address] [place] [address] Care Team Providers Care Promotions Team Leader Name Role Phone Shannan Vieyra MD Primary Care Provider Unavail able Reason for Visit * Reason Comments Insect Bite bee sting 3 days ago on right hand, swollen Encounter Details Date Type Department Care Team (Late st Contact Info) Description 05/21/2013 9:15 EDT Office Visit [address] [address] Bridget Grubbs, DO [address] [place] [address] Bee sting (Primary Dx); Cellulitis [...] Date End Date doxycycline (VIBRA-TABS) 100 mg tabletIndications: Cellulitis Take 1 Tab by mouth 2 times daily for 7 days. 14 Tab 0 05/21/2013 02/26/2016 EPINEPHrine (EPIPEN) 0.3 mg/0.3 mL (1:1,000) injectionIndicatio ns:Bee sting Inject 0.3 mL into [...] Meningitis 2004 ??? Thyroid disease ??? Hypertension Current Outpatient [...] documented as of this encounter Care Teams Promotions Team Leader Relationship Specialty Start Date End Date Shannan Vieyra MD PCP - General 04/08/09 03/15/19 documented as of this encounter
--- OUTSIDE RECORDS SUMMARY | 2024-08-23 23:32 | XMS_ITS | Encounter Summary ---
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 Commissioner, Outpatient Other postablative hypothyroidism Social History Tobacco [...] ORDE RABLES Final Result Performing Organization Address [facility] de Phone Number [facility] [address] [place] [address] * (ABNORMAL) TSH (03/23/2011 11:55 EDT) TSH 0.04(L) 0.35 - 5.00 uIU/ml [facility] Blood specimen (specimen) 03/23/2011 11:55 EDT 03/23/2011 11:56 EDT us Juan Pablo Toth MD CHEMISTRY & BLOOD GAS ORDE RABLES Final Result Performing Organization Address [facility] de Phone Number [facility] [address] [place] [address] * T4 FREE (03/23/2011 11:55 EDT) Free T4 1.4 0.8 - 1.8 ng/dL [facility] Blood specimen (specimen) 03/23/2011 11:55 EDT 03/23/2011 11:56 EDT us Juan Pablo Toth MD CHEMISTRY & BLOOD GAS ORDE RABLES Final Result Performing Organization Address [facility] Co de Phone Number [facility] [address] [place] [address] documented in this encounter Visit Diagnoses Diagnosis Other postablative hypothyroidism documented in this encounter Care Teams Dietitian Teacher Relationship Specialty Start Date End Date Shannan Vieyra MD PCP - General 04/08/09 03/15/19 documented as of this encounter
--- OUTSIDE RECORDS SUMMARY | 2024-08-23 23:32 | XMS_ITS | Encounter Summary ---
Author Organization [facility] Address [address] [place] [address] Care Team Providers Care Agricultural Lender Name Role Phone Shannan Vieyra MD Primary Care Provider Unavail able Reason for Visit * Reason Onset Date Comments Post-op Problem 04/29/2014 Gallbladder surg namrata last Tuesday. A couple of incisions are very red, and there is drainage from belly button area. Encounter Details Date Type Department Care Team (Late st Contact Info) Description 04/29/2014 Telephone [facility] General Surgery - [facility] [address] [place], [place] [phone] Ashwin Maradiaga MD [address] [place] [address], [address] [place] [address] Post-op Problem ( Gallbladder surgery [...] Encounter - Megan Groves RN - 04/29/2014 3799 EDT Phone call to patient. She is [...] on filedocumented in this encounter Care Teams Agricultural Lender Relationship Specialty Start Date End Date Shannan Vieyra MD PCP - General 04/08/09 03/15/19 documented as of this encounter
--- OUTSIDE RECORDS SUMMARY | 2024-08-23 23:32 | XMS_ITS | Encounter Summary ---
Author Organization [facility] Address [address] [place] [address] Care Team Providers Care Machine Hoop Maker Name Role Phone Shannan Vieyra MD Primary Care Provider Unavail able Encounter Details Date Type Department Care Team (Latest Contact Info) Description 05/31/2011 15:30 EDT - 05/31/2011 23:59 EDT Hospital Encounter [address] [address] Juan Pablo Toth MD [employer] [address] [place] [phone] Discharge Disposition: Home or Self Care [...] this encounter Medications at Time of Discharge levonorgestrel-et hinyl estradiol (SEASONALE) 0.15-30 mg-mcg per tablet Take 1 Tab by mouth daily. 06/25/2020 lisinopril-hydroc hlorothiazide (PRINZIDE, ZESTORETIC) 20-12.5 mg per tabletIndications :Hypertension Take 1 Tab by mouth daily. 90 Tab 3 03/09/2011 06/06/2012 thyroid (ARMOUR THYROID) 120 mg tablet Take 1 Tab by mouth daily. 30 Each 11 04/15/2011 06/14/2012 documented as of this encounter Discharge Disposition Disposition Code Departure Means Destination Home or Self Longterm documented in this encounter Plan of Treatment Not on file documented as of this encounter Visit Diagnoses Not on filedocumented in this encounter Care Teams Machine Hoop Maker Relationship Specialty Start Date End Date Shannan Vieyra MD PCP - General 04/08/09 03/15/19 documented as of this encounter
--- OUTSIDE RECORDS SUMMARY | 2024-08-23 23:32 | XMS_ITS | Encounter Summary ---
Author Organization [facility] Address [address] [place] [address] Care Team Providers Care Furnace Attendant Name Role Phone Shannan Vieyra MD Primary Care Provider Unavail able Encounter Details Date Type Department Care Team (Late st Contact Info) Description 04/15/2011 Orders Only [facility] Endocrinology - [address] [address] Deana Jiang RN Grave's disease [...] Start Date End Date thyroid (ARMOUR THYROID) 120 mg tablet Take [...] RABLES Final Result Performing Organization Address [facility] Co de Phone Number [facility] [address] [place] [address] * (ABNORMAL) T3, TOTAL (05/31/2011 15:42 EDT) T3, Total 213(H) 60 - 181 ng/dL [facility] Blood specimen (specimen) 05/31/2011 15:42 EDT 05/31/2011 16:51 EDT us Juan Pablo Toth MD CHEMISTRY & BLOOD GAS ORDE RABLES Final Result Performing Organization Address [facility] Co de Phone Number [facility] [address] [place] [address] * T4 FREE (05/31/2011 15:42 EDT) Free T4 1.5 0.8 - 1.8 ng/dL [facility] Blood specimen (specimen) 05/31/2011 15:42 EDT 05/31/2011 16:51 EDT us Juan Pablo Toth MD CHEMISTRY & BLOOD GAS ORDE RABLES Final Result Performing Organization Address [facility] de Phone Number [facility] [address] [place] [address] documented in this encounter Visit Diagnoses Diagnosis 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 NEEDS BRAND NAME FOR PROPER ABSORPTION 02/09/2011 04/15/2011 documented as of this encounter Care Teams Furnace Attendant Relationship Specialty Start Date End Date Shannan Vieyra MD PCP - General 04/08/09 03/15/19 documented as of this encounter
--- OUTSIDE RECORDS SUMMARY | 2024-08-23 23:32 | XMS_ITS | Encounter Summary ---
Author Organization [facility] Address [address] [place] [address] Care Team Providers Care Reiki Practitioner Name Role Phone Shannan Vieyra MD Primary [...] 3:55 EDT - 06/24/2013 10:56 EDT Emergency [facility] Emergency Department - Main [place] [address] [place] [address] Sarkis Crook, PA-C [address] [place], [place] [phone] Shikha Carmona PA [address] [place], [place] [phone] Emergency, MD Keli Abdominal pain (Primary Dx) [...] Reading Time Taken Comments Blood Pressure 103/58 06/24/2013932 EDT Pulse 78 06/24/2013932 EDT Temperature 36.5 ??C (97.7 ??F) 06/24/2013932 EDT Respiratory Rate 16 06/24/2013932 EDT Oxygen Saturation 99% 06/24/2013932 EDT Inhaled Oxygen Concentration - - Weight 88.5 kg (195 lb) 06/24/2013431 EDT Height 162.6 cm (5' 4) 06/24/2013431 EDT Body Mass Index 33.47 06/24/2013431 EDT documented in this encounter Discharge Instructions * Discharge Instructions* Shikha Carmona - 06/24/2013 10:42 EDT Drink plenty of [...] AFTER YOUR VISIT TO THE EMERGENCY ROOM ([place]) documented in this encounter Medications at Time [...] mouth daily. 90 Tab 3 06/14/2012 4 ondansetron (ZOFRAN-ODT) 4 mg disintegrating tablet Take 1 Tab by mouth every 8 hours as needed for Nausea for 12 doses. 12 Tab 0 06/24/2013 4 oxyCODONE-acetaminop hen (PERCOCET) 5-325 mg per tablet Take 1 Tab by mouth every 6 hours as needed for Pain for 12 doses. 12 Tab 0 06/24/2013 4 thyroid (ARMOUR THYROID) 15 mg tabletIndications:Ot her iatrogenic hypothyroidism Take 1 Tab by mouth daily. 90 Each 3 11/06/2012 4 thyroid (ARMOUR) 90 mg tabletIndications:Ot her iatrogenic hypothyroidism Take 1 Tab by mouth daily. (Cancel order/refill s on 120 mg dose) 90 Each 3 06/19/2012 4 documented as of this encounter Ordered Prescriptions Prescription Sig Dispense Quantity Refills Last Filled Start Date End Date oxyCODONE-acetaminop hen (PERCOCET) 5-325 mg per tablet Take 1 Tab by mouth every 6 hours as needed for Pain for 12 doses. 12 Tab 0 06/24/2013 4 ondansetron (ZOFRAN-ODT) 4 mg disintegrating tablet Take 1 Tab by mouth every 8 hours as needed for Nausea for 12 doses. 12 Tab 0 06/24/2013 4 documented in this encounter Discharge Disposition Disposition Code Departure Means Destination Home or Self [facility] documented in this encounter ED Notes * Shikha Carmona - 06/24/2013 1614 EDT Assumed care of [...] order. * Sarkis Crook PA - 06/24/2013 0505 EDT DOS: 06/24/2013 Chief Complaint Patient presents [...] encounter Miscellaneous Notes * Scanned Note-Null - ENVIRONMENTAL ENGINEERING INTERN, SCAN 2 - 06/26/2013 1440 EDT documented [...] scarring within the right kidney. ?? Dr. Urbina d/w nimesh at 10:20 on 06/24/13 Procedure Note 06/24/2013 [...] on 06/24/[address] ORDERABLES Final Result * POCT URINE TEST (06/24/2013 7:02 EDT) Test, Urine, POC Negative Reference Range, Negative Control Line Present Yes Background Clear? Yes Urine specimen (specimen) 06/24/2013 7:02 EDT Sarkis Crook PA-C POINT OF CARE TEST ORDERABLES Final Result * (ABNORMAL) POCT URINE DIPSTICK (06/24/2013 6:51 EDT) Color YELLOW [facility] Clarity, UA Clear [facility] Glucose Neg Neg [facility] Bilirubin Neg Neg [facility] Ketones Neg Neg [facility] Specific Leoti >=1.030 1.001 - 1.035 [facility] Blood Neg Neg [facility] pH 6.0 4.6 - 8.0 [facility] Protein Trace(A) Neg [facility] Urobilinogen 0.2 0.2 - 1.0 E.U./dl [facility] Nitrite Neg Neg [facility] Leuk Esterase Neg Neg [facility]ATHYA [facility] welding rod coater ID [id number] [facility] Comment:Test performed at Em ergency Department Urine specimen (specimen) 06/24/2013 6:51 EDT 06/24/2013 7:01 EDT Sarkis Crook PA-C POINT OF CARE TEST ORDERABLES Final Result Performing Organization Address [facility] de Phone Number [facility] [address] [place] [address] * DIFFERENTIAL (06/24/2013 5:10 EDT) % Neutrophils [...] of Diff: Automated [facility] 06/24/2013 5:10 EDT 06/24/2013 5:20 EDT Sarkis Crook PA-C HEMATOLOGY & PF4 ORDERABLES F inal Result Performing Organization Address [facility] Co de Phone Number [facility] [address] [place] [address] * HEMAGRAM (06/24/2013 5:10 EDT) WBC 6.31 4.0 - 12.4 K/cmm [facility] RBC 4.42 3.86 - 5.04 M/cmm [facility] Hemoglobin 13.3 11.6 - 15.2 gm/dl [facility] HCT 38.8 34.9 - 44.4 % [facility] MCV 88 81 - 98 fl [facility] MCH 30.1 26.7 - 33.3 pg [facility] MCHC 34.3 32.1 - 35.9 gm/dl [facility] PLT 187 141 - 320 K/cmm [facility] RDW-CV 12.8 11.7 - 14.6 % [facility] 06/24/2013 5:10 EDT 06/24/2013 5:20 EDT Sarkis Crook PA-C HEMATOLOGY & PF4 ORDERABLES F inal Result Performing Organization Address [facility] Co de Phone Number [facility] [address] [place] [address] * LIPASE (06/24/2013 5:10 EDT) [facility] Lipase 163 0 - 250 U/L [facility] Blood specimen (specimen) 06/24/2013 5:10 EDT 06/24/2013 5:20 EDT Sarkis Crook PA-C CHEMISTRY & BLOOD GAS ORDERAB LES Final Result Performing Organization Address [facility] de Phone Number [facility] [address] [place] [address] * (ABNORMAL) COMPREHENSIVE METABOLIC PANEL (CMP) (06/24/2013 5:10 EDT) Pathologist [facility] Potassium 3.8 3.5 - 5.0 mEq/L [facility] [...] LAB Albumin 3.3(L) 3.4 - 4.9 g/dl [facility] Total Protein 6.1(L) 6.5 - 8.3 g/dl [facility] Creatinine 0.77 0.52 - 1.04 mg/dl [facility] [...] EDT Sarkis Crook PA-C CHEMISTRY & BLOOD GAS ORDERAB LES Final Result Performing Organization Address City/State/[facility] Co de Phone Number [facility] [address] [place] [address] documented in this encounter Visit Diagnoses Diagnosis [...] (Given - Provid er: Mack Segura, DAXA) ondansetron (PF) (ZOFRAN) injection 4 mg (COMPLETED) 4 mg, intravenous, NOW X1, 1 dose, On 06/24/13 at 0530, STAT 0537 (Given - Provid er: Mack Segura, DAXA) sodium chloride (NS) 0.9 % 1,000 mL BOLUS (COMPLETED) 1,000 mL, intravenous, Once (Without Time Specified), 1 dose, Starting on 06/24/13 at 0503, Until 06/24/13 at 0537, STAT 0537 (Given - Provid er: Mack Segura, DAXA) documented in this encounter Orders Nursing Count Last Ordered Date First Orde red Date INSERT PERIPHERAL IV 1 06/24/2013 documented in this encounter Care Teams Reiki Practitioner Relationship Specialty Start Date End Date Shannan Vieyra MD PCP - General 04/08/09 03/15/19 documented as of this encounter
--- OUTSIDE RECORDS SUMMARY | 2024-08-23 23:32 | XMS_ITS | Encounter Summary ---
Author Organization [facility] Address [address] [place] [address] Care Team Providers Care Roll Forger Name Role Phone Shannan Vieyra MD Primary Care Provider Unavail able Reason for Referral * Consult, Test and Treat (Routine/Next Available) - Closed Specialty Diagnoses / Procedures Referred By Julianne gallo Referred To Contact Speech Therapy Diagnoses Dysphonia Carter Reece MD Phone: tel: fax: Referral ID Status Reason Start Date Expiration Date V isits Requested Visits Authorized [id number] Closed Specialty Services Required 09/13/2012 1 1 Question Answer Reason for Request: high pitched, squeky voice with supraglottic hyperfunction Type of STATE TROOPER Eval: Voice Eval & Treat Reason for Visit * Reason Comments Hoarse for about 5 years Encounter Details Date Type Department Care Team (Late st Contact Info) Description 09/13/2012 15:10 EST Office Visit [facility] ENT- Main [address] [phone] Carter Reece MD [address] [place] [address], [address] [place] [address] Dysphonia (Primary Dx) Social History Tobacco [...] strained, squeaky. 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 No dysphagia or GERD. No sore throat. [...] or masses. Optimize vocal hygiene- handouts provided STATE TROOPER referral for voice therapy- should respond well RTO 3 months during voice clinic documented in this encounter Plan of Treatment Scheduled Referrals Name Type Priority Associated Diagnoses Orde r Schedule AMB CONSULT SPEECH & LANGUAGE PATHOLOGY Outpatient Referral Routine Dysphonia Ordered: 09/13/2012 documented as of this encounter Visit Diagnoses Diagnosis Dysphonia- Primary documented in this encounter Care Teams Roll Forger Relationship Specialty Start Date End Date Shannan Vieyra MD PCP - General 04/08/09 03/15/19 documented as of this encounter
--- OUTSIDE RECORDS SUMMARY | 2024-08-23 23:32 | XMS_ITS | Encounter Summary ---
Author Organization [facility] Address [address] [place] [address] Care Team Providers Care Stucco Laborer Name Role Phone Shannan Vieyra MD Primary Care Provider Unavail able Reason for Referral * Consult (3 - 10 Business Days) - Specialty Report Received Specialty Diagnoses / Procedures Referred By Contact Referred To Contact Gastroenterology and Hepatology Diagnoses Pancreatitis, gallstone Shannan Vieyra MD John, Alex, MD Phone: tel:[phone] fax:[phone] Referral ID Status Reason Start Date Expiration Date Visits Requested Visits Authorized [id number] Specialty Report Received Specialty Services Required 10/10/2013 1 1 Question Answer Reason for Request: recurrent episodes of abdominal pain- has gallstones and now an episode of pancreatitis Reason for Visit * Reason Onset Date Comments Results 10/10/2013 lab results from [facility] Encounter Details Date Type Department Care Team (Late Contact Info) Description 10/10/2013 Telephone [facility] Family Medicine [address] [address] Shannan Vieyra MD Results (lab results from [facility]) Social History Tobacco Use Types Packs/Day [...] about lab results called to me from [facility] where she had been seen Oct 08 for abdominal pain that was coming and going. Her Amylase is 165 and her Lipase is 1896. She had been evaluated in June in [facility] ER for similar episode of abdominal pain [...] did not have anything last night on . She will also avoid fatty food. She is to report to [facility] ER if any recurrence of pain and [...] pancreatitis documented in this encounter Care Teams Stucco Laborer Relationship Specialty Start Date End Date Shannan Vieyra MD PCP - General 04/08/09 03/15/19 documented as of this encounter
--- OUTSIDE RECORDS SUMMARY | 2024-08-23 23:32 | XMS_ITS | Encounter Summary ---
Author Organization [facility] Address [address] [place] [address] Care Team Providers Care Chief Maintenance Supervisor Name Role Phone Shannan Vieyra MD Primary Care Provider Unavail able Reason for Visit * Reason Onset Date Comments Appointment Related 04/17/2014 Encounter Details Date Type Department Care Team (Late st Contact Info) Description 04/17/[address] [phone] Shannan Vieyra MD Appointment Related Social History [...] on filedocumented in this encounter Care Teams Chief Maintenance Supervisor Relationship Specialty Start Date End Date Shannan Vieyra MD PCP - General 04/08/09 03/15/19 documented as of this encounter
--- OUTSIDE RECORDS SUMMARY | 2024-08-23 23:32 | XMS_ITS | Encounter Summary ---
Author Organization [facility] Address [address] [place] [address] Care Team Providers Care Chro Name Role Phone Shannan Vieyra MD Primary Care Provider Unavail Leida Jackson PA-C Primary Care Provi melvin Comfort Zelaya NP Primary Care Provider [phone] Reason for Visit * Reason Comments Other Encounter Details Date Type Department Care Team (Late st Contact Info) Description 10/15/2013 Refill [facility] Medicine [facility] [address] [place], [place] [phone] Leida Cerda PA-C 402 [facility] [address] [place], [place] [phone] Other Social History Tobacco Use Types Packs/Day [...] mouth daily. 90 Tab 0 10/16/2013 02/20/2014 lisinopril-hydrochl orothiazide (PRINZIDE, ZESTORETIC) 20-12.5 mg per tablet Take 1 Tab by mouth daily. 90 Tab 0 10/16/2013 02/20/2014 documented in this encounter Miscellaneous Notes * Telephone Encounter - Aliza Nino, RN - 10/16/2013 0792 EST Refill request for [place] Thyroid and Prinzide received from [facility] in [place]. Doris due due for her labs. 90 days of Rx approved. Standing orders place in [facility]. Message will be sent to [facility] to call patient and schedule her for Fasting labs. Aliza Nino RN documented in this encounter Plan of Treatment Not on file documented as of this encounter Results * BASIC METABOLIC PANEL (09/02/2014 15:45 EST) Sodium 140 136 - 145 mEq/L 09/02/2014 18:36 [facility] Potassium 4.4 3.5 - 5.0 mEq/L 09/02/2014 18:36 [facility] Chloride 102 96 - 110 mEq/L 09/02/2014 18:36 [facility] CO2 25 24 - 32 mEq/L 09/02/2014 18:36 [facility] BUN 19 10 - 26 mg/dl 09/02/2014 18:36 [facility] Creatinine 0.81 0.52 - 1.04 mg/dl 09/02/2014 18:36 [facility] GFR, Calculated >60 >60 ml/min/1.7 3m2 09/02/2014 18:36 [facility] Calcium 10.2 8.5 - 10.5 mg/dl 09/02/2014 18:36 [facility] Calculated Calcium 10.2 8.5 - 10.5 mg/dl 09/02/2014 18:36 [facility] Glucose, Serum 76 70 - 100 mg/dl 09/02/2014 18:36 [facility] Fasting? YES 09/02/2014 15:45 [facility] Blood specimen (specimen) BLOOD SPECIMEN / Unknown 09/02/2014 15:45 EST 09/02/2014 18:01 EST us Shannan Vieyra MD CHEMISTRY & BLOOD GAS ORDERABL ES Final Result Performing Organization Address City/[facility]/ZIP Co de Phone Number [facility] [address] [place] [address] * VITAMIN D (25,OH) (09/02/2014 15:45 EST) 25OH Vitamin D Tot 21.5 ng/ml 09/03/2014 11:45 EST [facility] Comment: Reference Range: Deficient = <10 ng/ml Insufficient = 10-30 ng/ml Sufficient = 30-100 ng/ml Toxic = >100 ng/ml Blood specimen (specimen) BLOOD SPECIMEN / Unknown 09/02/2014 15:45 EST 09/02/2014 18:01 EST us Shannan Vieyra MD CHEMISTRY & BLOOD GAS ORDERABL ES Final Result Performing Organization Address City/[facility] Co de Phone Number [facility] [address] [place] [address] documented in this encounter Visit Diagnoses Diagnosis [...] 10/16/2013 documented in this encounter Care Teams Chro Relationship Specialty Start Date End Date Shannan Vieyra MD PCP - General 04/08/09 03/15/19 Leida Cerda PA-C PCP - General 03/16/19 03/07/22 Comfort Zelaya NP [address] [place] [phone] PCP - General Family Medicine - Primary Care 03/08/22 documented as of this encounter
--- OUTSIDE RECORDS SUMMARY | 2024-08-23 23:32 | XMS_ITS | Encounter Summary ---
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 There for I left a brief message asking that Doris call our office to schedule a follow up visit with her provider. I've provided our office phone number for patient's convenience. Aliza Nino, RN documented in this encounter Plan of Treatment Not on file documented as of this encounter Visit Diagnoses Not on filedocumented in this encounter Care Teams Para Machine Operator Relationship Specialty Start Date End Date Shannan Vieyra MD PCP - General 04/08/09 03/15/19 documented as of this encounter
--- OUTSIDE RECORDS SUMMARY | 2024-08-23 23:32 | XMS_ITS | Encounter Summary ---
Author Organization [facility] Address [address] [place] [address] Care Team Providers Care Timber Deadener Name Role Phone Shannan Vieyra MD Primary Care Provider Unavail able Reason for Visit * Reason Onset Date Comments Abdominal Pain 03/08/2013 Encounter Details Date Type Department Care Team (Late st Contact Info) Description 03/08/2013 Telephone [facility] Family Medicine - [address] [phone] Maria Guadalupe Wolfe MD [address] [place] [phone] Abdominal Pain Social History Tobacco Use Types [...] - Maria Guadalupe Wolfe MD - 03/08/2013 1963 EDT CC: abdominal pain S: Pt calls [...] on filedocumented in this encounter Care Teams Timber Deadener Relationship Specialty Start Date End Date Shannan Vieyra MD PCP - General 04/08/09 03/15/19 documented as of this encounter
--- OUTSIDE RECORDS SUMMARY | 2024-08-23 23:33 | XMS_ITS | Encounter Summary ---
Author Organization [facility] Address [address] [place] [address] Care Team Providers Care Physical Therapy Aides Teacher Name Role Phone Shannan Vieyra MD Primary Care Provider Unavail able Reason for Visit * Reason Comments Hypertension Encounter Details Date Type Department Care Team (Late st Contact Info) Description 01/16/2010 15:30 EDT Office Visit [facility] Family Medicine [place] [phone] Leida Cerda PA-C [address] [place] [phone] Hypertension; Grave's disease Social History Tobacco Use [...] the end of the day. BP at hospice director office recently was normal. Tolerates the higher [...] G ORDERABLES Final Result Performing Organization Address [facility] Co de Phone Number [facility] [address] [place] [address] * (ABNORMAL) TSH (01/16/2010 15:50 EDT) Pathologist [facility] TSH <0.02(L) 0.35 - 5.00 uIU/ml [facility] Blood specimen (specimen) 01/16/2010 15:50 EDT 01/16/2010 18:26 EDT Leida Cerda PA-C CHEMISTRY & BLOOD G ORDERABLES Final Result Performing Organization Address [facility] Phone Number [facility] [address] [place] [address] * (ABNORMAL) BASIC METABOLIC PANEL (01/16/2010 15:50 EDT) Pathologist [facility] Sodium 139 136 - 145 mEq/L [facility] Potassium 4.2 3.5 - 5.0 mEq/L [facility] Chloride 101 96 - 110 mEq/L [facility] CO2 30 24 - 32 mEq/L [facility] BUN 13 10 - 26 mg/dl [facility] Creatinine 0.67(L) 0.7 - 1.5 mg/dl [facility] GFR, Calculated >60 ml/min/1.7 3m2 [facility] Calcium 9.8 8.5 - 10.5 mg/dl [facility] Calculated Calcium 10.0 8.5 - 10.5 mg/dl [facility] Glucose, Serum 77 70 - 100 mg/dl [facility] Fasting? Unknown [facility] Blood specimen (specimen) 01/16/2010 15:50 EDT 01/16/2010 18:26 EDT Leida Cerda PA-C CHEMISTRY & BLOOD G ORDERABLES Final Result [facility] [address] [place] [address] documented in this encounter Visit Diagnoses Diagnosis Hypertension Unspecified essential hypertension Grave's disease Toxic diffuse goiter without mention of thyrotoxic crisis or storm documented in this encounter Discontinued Medications Medication Sig Discontinue Reason Start Date End Da te atenolol (TENORMIN) 50 mg tablet Take 50 mg by mouth 2 times daily. Alternate therapy 01/16/2010 documented as of this encounter Care Teams Physical Therapy Aides Teacher Relationship Specialty Start Date End Date Shannan Vieyra MD PCP - General 04/08/09 03/15/19 documented as of this encounter
--- OUTSIDE RECORDS SUMMARY | 2024-08-23 23:33 | XMS_ITS | Encounter Summary ---
Author Organization [facility] Address [address] [place] [address] Care Team Providers Care Nylon Mender Name Role Phone Unavailable Primary Care Provider Unavailabl e Encounter Details Date Type Department Care Team (Latest Contact Info) Description 12/27/2007 21:28 EDT Hospital Encounter [facility] - Other [address] [place] [address] Juan Pablo Toth MD [address] [place] [address] [place] [phone] Discharge Disposition: Home or Self Care Social History Tobacco Use Types Packs/Day Years Used Date Smoking Tobacco: Never Assessed Comments Unknown Sex and Gender Information Value Date Recorded [...]
--- OUTSIDE RECORDS SUMMARY | 2024-08-23 23:33 | XMS_ITS | Encounter Summary ---
Author Organization [facility] Address [address] [place] [address] Care Team Providers Care Assistant Professor Of History Name Role Phone Unavailable Primary Care Provider Unavailabl e Encounter Details Date Type Department Care Team (Latest Contact Info) Description 10/27/2007 10:50 EST - 10/27/2007 11:59 EST Hospital Encounter [facility] - [facility] [address] [place], [place] [address] [phone] Juan Pablo Toth MD [address] [place] [address] [place] [phone] Discharge Disposition: Auto Discharge Social History [...]
--- OUTSIDE RECORDS SUMMARY | 2024-08-23 23:33 | XMS_ITS | Encounter Summary ---
Author Organization [facility] Address [address] [place] [address] Care Team Providers Care Accelerator Operator Name Role Phone Unavailable Primary Care Provider Unavailabl e Encounter Details Date Type Department Care Team (Latest Contact Info) Description 12/04/2007 11:22 EST - 12/04/2007 11:59 EST Hospital Encounter [facility] - [facility] conversion [address] [place], [place] [address] [phone] Juan Pablo Toth MD [address] [place] [address] [place] [phone] Discharge Disposition: Auto Discharge Social History [...]
--- OUTSIDE RECORDS SUMMARY | 2024-08-23 23:33 | XMS_ITS | Encounter Summary ---
Author Organization [facility] Address [address] [place] [address] Care Team Providers Care Shoe Maker Name Role Phone Shannan Vieyra MD Primary Care Provider Unavail able Encounter Details Date Type Department Care Team (Late st Contact Info) Description 01/19/2010 Orders Only [facility] Family Medicine - [place] [phone] Leida Cerda PA-C [address] [facility] [address] [place], [place] [phone] Grave's disease (Primary Dx) Social History Tobacco [...] disease [facility] Number for problems [id number] or [phone] [facility] Accession number [id number] [facility] Acknowledge ABP Done [facility] 01/19/2010 13:4 1 EDT 01/19/2010 13:47 EDT us Leida Cerda PA-C HEMATOLOGY & PF4 OR DERABLES Final Result [facility] [address] [place] [address] documented in this encounter Visit Diagnoses Diagnosis Grave's disease- Primary Toxic diffuse goiter without mention of thyrotoxic crisis or storm documented in this encounter Care Teams Shoe Maker Relationship Specialty Start Date End Date Shannan Vieyra MD PCP - General 04/08/09 03/15/19 documented as of this encounter
--- OUTSIDE RECORDS SUMMARY | 2024-08-23 23:33 | XMS_ITS | Encounter Summary ---
Author Organization [facility] Address [address] [place] [address] Care Team Providers Care Masticator Name Role Phone Shannan Winter MD Primary Care Provider Unavail able Encounter Details Date Type Department Care Team (Late st Contact Info) Description 12/31/2009 Results Only [facility] Laboratory Services - [facility] ([facility] [address] [place] [phone] Julita Martinez MD 111 [facility], [facility] [address] [place] [phone] Social History Tobacco Use Types Packs/Day Years [...] ? DORIS KERR ? Accession #: ? [id number] ? : ? 1980 (Age: 29) ??F ?Collect Date: ? 12/31/2009 ? Location: ? [facility] ? Receive Date: ? 01/02/2010 ? Provider: ?JULITA BERNIE MD ? Copy to: ?SHANNAN WINTER MD [...] Document reviewed and electronically signed by: ? GLADWYN LEIMAN MD [facility] ? Report Date: ??01/07/2010 14:43 ? End of Report ? [facility] 12/31/2009 01/02/2010 us Julita Martinez MD PATHOLOGY ORDERABLES Final R esult [facility] [address] [place] [address] documented in this encounter Visit Diagnoses Not on filedocumented in this encounter Care Teams Masticator Relationship Specialty Start Date End Date Shannan Winter MD PCP - General 04/08/09 03/15/19 documented as of this encounter
--- OUTSIDE RECORDS SUMMARY | 2024-08-23 23:33 | XMS_ITS | Encounter Summary ---
Author Organization [facility] Address [address] [place] [address] Care Team Providers Care Theatrical Performer Name Role Phone Isela Winter MD Primary Care Provider Unavail able Encounter Details Date Type Department Care Team (Late st Contact Info) Description 10/25/2007 Results Only [facility] Cardiology - [address] [place], [place] [phone] Miguel Devine MD PhD 111 [facility] [address] [place] [phone] Social History Tobacco Use Types Packs/Day Years [...] 10/25/2007 11:06 EST Miguel Devine MD PhD CHEMISTRY & BL OOD GAS ORDERABLES Final Result [facility] [address] [place] [address] * (ABNORMAL) T4 (10/25/2007 11:04 EST) T4, Total 23.9(H) 4.5 - 10.9 ug/dL [facility] 10/25/2007 11:0 4 EST 10/25/2007 11:06 EST Miguel Devine MD PhD CHEMISTRY & BL OOD GAS ORDERABLES Final Result Performing Organization Address [facility]/ZIP Co de Phone Number [facility] [address] [place] [address] * (ABNORMAL) T3, TOTAL (10/25/2007 11:04 EST) T3, Total >800(H) 60 - 181 ng/dL [facility] 10/25/2007 11:0 4 EST 10/25/2007 11:06 EST Miguel Devine MD PhD CHEMISTRY & BL OOD GAS ORDERABLES Final Result Performing Organization Address [facility] Co de Phone Number [facility] [address] [place] [address] * (ABNORMAL) T4 FREE (10/25/2007 11:04 EST) Free T4 5.9(H) 0.8 - 1.8 ng/dL [facility] 10/25/2007 11:0 4 EST 10/25/2007 11:06 EST us Miguel Devine MD PhD CHEMISTRY & BL OOD GAS ORDERABLES Final Result [facility] [address] [place] [address] * SURGICAL PATHOLOGY (10/25/2007 0:00 EST) Pathology Report: SURGICAL PATHOLOGY REPORT Reports generated via electronic interface contain original data; however they are lacking the format of the original report. Caution should be taken when reading/interpreti ng unformatted reports. Name: ? MADHUMARCELLO ? Accession #: ? [id number] ? : ? 1980 (Age: 27) ??F ? Collect Date: ? 10/25/2007 ? Location: ? [facility] ? Receive Date: ? 10/25/2007 ? Provider: KAR ENCINAS MD Copy to: ISELA WINTER MD ? Final Pathologic Diagnosis: A. [...] exists, correlation with serology is essential. ??(Dr. Grigsby)/clau Document reviewed and electronically signed by: DANNI [...] ??(Rose Mary Diaz)/kmm End of Report [facility] 10/25/2007 10/25/2007 15: 07 EST us Kar Encinas MD PATHOLOGY ORDERABLES Nellie patrick Result [facility] [address] [place] [address] documented in this encounter Visit Diagnoses Not on filedocumented in this encounter Care Teams Theatrical Performer Relationship Specialty Start Date End Date Isela Winter MD PCP - General 04/08/09 03/15/19 documented as of this encounter
--- OUTSIDE RECORDS SUMMARY | 2024-08-23 23:33 | XMS_ITS | Encounter Summary ---
Author Organization [facility] Address [address] [place] [address] Care Team Providers Care E Commerce Project Manager Name Role Phone Unavailable Primary Care Provider Unavailabl e Encounter Details Date Type Department Care Team (Late st Contact Info) Description 07/01/2008 10:29 EDT - 07/01/2008 11:59 EDT Hospital Encounter [facility] - Other [address] [place] [phone] Denice Martinez MD [address] [facility] [address] [place] [phone] Discharge Disposition: Home or Self Care Social [...]
--- OUTSIDE RECORDS SUMMARY | 2024-08-23 23:33 | XMS_ITS | Encounter Summary ---
Author Organization [facility] Address [address] [place] [address] Care Team Providers Care Intake Clerk Name Role Phone Shannan Vieyra MD Primary Care Provider Unavail able Reason for Visit * Reason Comments Hypertension FOLLOW UP Encounter Details Date Type Department Care Team (Late st Contact Info) Description 11/14/2009 16:00 EST Office Visit [facility] Family Medicine [place] [phone] Leida Cerda PA-C [address] [place] [phone] Hypertension (Primary Dx); Grave's disease; Asthma Social [...] Bilirubin, Total <0.5 0.2 - 1.3 mg/dl [facility] AST 18 15 - 46 [...] (specimen) 11/14/2009 16:49 EST 11/14/2009 18:16 EST us Leida Cerda PA-C CHEMISTRY & BLOOD G ORDERABLES Final Result [facility] [address] [place] [address] documented in this encounter Visit Diagnoses Diagnosis [...] may reflect changes made after this encounter. lisinopril-hydroc hlorothiazide (PRINZIDE, ZESTORETIC) 10-12.5 mg per tablet Take 1 Tab by mouth daily. 11/14/2009 levothyroxine (SYNTHROID) 100 mcg tablet Take 100 mcg by mouth daily. BRAND ONLY/DR. DESAI 11/06/2010 added in this encounter Care Teams Intake Clerk Relationship Specialty Start Date End Date Shannan Vieyra MD PCP - General 04/08/09 03/15/19 documented as of this encounter
--- OUTSIDE RECORDS SUMMARY | 2024-08-23 23:33 | XMS_ITS | Encounter Summary ---
Author Organization [facility] Address [address] [place] [address] Care Team Providers Care Subway Operator Name Role Phone Shannan Vieyra MD Primary Care Provider Unavail able Reason for Visit * Reason Comments URI COUGH AND COLD. COUG H IS GETTING WORSE, VOMITS, 3-4 WEEKS. Encounter Details Date Type Department Care Team (Late st Contact Info) Description 02/13/2010 9:30 EDT Office Visit [address] [address] Shannan Vieyra MD Cough (Primary Dx) Social [...] Date albuterol (PROVENTIL HFA, VENTOLIN HFA) 90 mcg/Actuation inhalerIndications :Cough Inhale 2 Puffs as directed every 4 hours as needed for Wheezing. 1 Inhaler 2 02/13/2010 1 chlorpheniramine-h ydrocodone (TUSSIONEX) 8-10 mg/5 mL suspensionIndicati ons:Cough Take 5 mL by mouth every 12 hours as needed for Cough. 60 mL 0 02/13/2010 1 azithromycin (ZITHROMAX) 250 mg tabletIndications: Cough Take 1 Tab by mouth. Take 2 tablets (500 mg) on Day 1, followed by 1 tablet (250 mg) once daily on Days 2 through 5. 6 Tab 0 02/13/2010 1 documented in this encounter Progress Notes * Shannan Vieyra MD - 02/14/2010 [address] [address] PROGRESS/FOLLOWUP NOTE - 02/13/2010 TEMPORARY PROBLEM: Cough. [...] system. 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 Therapy completed documented as of this encounter Orders Immunization/Injection Count Last Ordered Date First Ordered Date TDAP VACCINE =>7YO IM 1 02/13/2010 documented in this encounter Care Teams Subway Operator Relationship Specialty Start Date End Date Shannan Vieyra MD PCP - General 04/08/09 03/15/19 documented as of this encounter
--- OUTSIDE RECORDS SUMMARY | 2024-08-23 23:33 | XMS_ITS | Encounter Summary ---
Author Organization [facility] Address [address] [place] [address] Care Team Providers Care Assistant Media Planner Name Role Phone Unavailable Primary Care Provider Unavailabl e Encounter Details Date Type Department Care Team (Late st Contact Info) Description 04/15/2008 10:55 EDT Hospital Encounter [facility] - Maple conversion [address] [place] [address] Juan Pablo Toth MD [facility] [address] [place] [phone] Social History Tobacco Use Types Packs/Day Years Used Date Smoking Tobacco: Never Smokeless Tobacco: Never Alcohol Use Standard Drinks/Week Comments No 0 (1 standard drink = 0.6 oz pur e alcohol) [facility] Utilities Answer Date Recorded In the past 12 months has [facility] electric, gas, oil, or water [...] ? DORIS KERR ? Accession #: ? [id number] ? : ? 1980 (Age: 28) ??F [...] reviewed and electronically signed by: ? Jolynn Zuni, [place](ASCP) ? Report Date: ??07/04/2008 09:35 ? End of Report ? [facility] 07/01/2008 07/02/2008 us Julita Martinez MD PATHOLOGY ORDERABLES Final R esult Performing Organization Address [facility] de Phone Number [facility] [address] [place] [address] * (ABNORMAL) TSH (04/15/2008 11:26 EDT) TSH <0.02(L) 0.35 - 5.00 uIU/mL [facility] Comment:Sample retested, res ult confirmed 04/15/2008 11:2 6 EDT 04/15/2008 11:27 EDT us Juan Pablo Toth MD CHEMISTRY & BLOOD [facility]AS [facility] Final Result Performing Organization Address [facility] de Phone Number [facility] [address] [place] [address] * T4 FREE (04/15/2008 11:26 EDT) Free T4 1.5 0.8 - 1.8 ng/dL [facility] 04/15/2008 11:2 6 EDT 04/15/2008 11:27 EDT us Juan Pablo Toth MD CHEMISTRY & BLOOD GAS ELLEN LAL Final Result [facility] [address] [place] [address] documented in this encounter Visit Diagnoses Not on filedocumented in this encounter
--- OUTSIDE RECORDS SUMMARY | 2024-08-23 23:33 | XMS_ITS | Encounter Summary ---
Author Organization [facility] Address [address] [place] [address] Care Team Providers Care Church History Teacher Name Role Phone Shannan Vieyra MD Primary Care Provider Unavail able Reason for Visit * Reason Onset Date Comments Medications Refill 11/06/2010 please call i n brand only. Encounter Details Date Type Department Care Team (Late st Contact Info) Description 11/06/2010 Refill [facility] Endocrinology - [facility] [address] [place] [address] Juan Pablo Toth MD 62 [facility] [address] [place] [address] Medications Refill (please call in [...] Refills Last Filled Start Date End Date SYNTHROID 100 mcg tablet Take 1 Tab by mouth daily. AUGUST ONEIL/DR. DESAI needs to make an appointment 30 Tab 1 11/06/2010 1 documented in this encounter Plan of Treatment Not on file documented as of this encounter Visit Diagnoses Not on filedocumented in this encounter Discontinued Medications Medication Sig Discontinue Reason Start Date End Da te levothyroxine (SYNTHROID) 100 mcg tablet Take 100 mcg by mouth daily. AUGUST ONEIL/DR. DESAI Reorder 11/06/2010 documented as of this encounter Care Teams Church History Teacher Relationship Specialty Start Date End Date Shannan Vieyra MD PCP - General 04/08/09 03/15/19 documented as of this encounter
--- OUTSIDE RECORDS SUMMARY | 2024-08-23 23:33 | XMS_ITS | Encounter Summary ---
Author Organization [facility] Address [address] [place] [address] Care Team Providers Care Certified Low Vision Therapist Name Role Phone Shannan Vieyra MD Primary Care Provider Unavail able Encounter Details Date Type Department Care Team (Late st Contact Info) Description 03/18/2008 Before PRISM Converted Visit (Maple) [facility] - Maple conversion [address] [place] [address] Miguel Devine MD PhD 111 [facility] 1 [place] [phone] Social History Tobacco Use Types Packs/Day Years [...] PROGRESS/FOLLOWUP NOTE - 03/18/2008 Shannan Vieyra MD [facility] [address] [place] [address], [address] [facility] [phone] Vieyra: I had the pleasure of seeing Doris back in cardiac arrhythmia clinic today. We have finally managed to get Doris euthyroid, in spite of which she continues to have sinus tachycardia and diastolic hypertension that is quite impressive. 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
--- OUTSIDE RECORDS SUMMARY | 2024-08-23 23:33 | XMS_ITS | Encounter Summary ---
Author Organization [facility] Address [address] [place] [address] Care Team Providers Care Float Remover Name Role Phone Shannan Vieyra MD Primary Care Provider Unavail able Encounter Details Date Type Department Care Team (Latest Contact Info) Description 02/09/2011 Orders Only [facility] Endocrinology - [facility] [address] [place] [address] Juan Pablo Toth MD 62 [facility] [address] [place] [address] Other postablative hypothyroidism (Primary Dx) [...] Last Filled Start Date End Date SYNTHROID 125 mcg tablet Take 1 Tab by mouth daily. NEEDS BRAND NAME FOR PROPER ABSORPTION 30 Tab 12 02/09/2011 1 documented in this encounter Plan of Treatment Not on file documented as of this encounter Results * (ABNORMAL) TSH (03/23/2011 11:55 EDT) TSH 0.04(L) 0.35 - 5.00 uIU/ml [facility] Blood specimen (specimen) 03/23/2011 11:55 EDT 03/23/2011 11:56 EDT us Juan Pablo Toth MD CHEMISTRY & BLOOD GAS ORDE RABLES Final Result Performing Organization Address [facility] Co de Phone Number [facility] [address] [place] [address] * T4 FREE (03/23/2011 11:55 EDT) Free T4 1.4 0.8 - 1.8 ng/dL [facility] Blood specimen (specimen) 03/23/2011 11:55 EDT 03/23/2011 11:56 EDT us Juan Pablo Toth MD CHEMISTRY & BLOOD GAS ORDE RABLES Final Result Performing Organization Address [facility] de Phone Number [facility] [address] [place] [address] documented in this encounter Visit Diagnoses Diagnosis Other postablative hypothyroidism- Primary documented in this encounter Discontinued Medications Medication Sig Discontinue Reason Start Date End Da te SYNTHROID 100 mcg tablet Take 1 Tab by mouth daily. NEEDS BRAND NAME FOR PROPER ABSORPTION 02/08/2011 02/09/2011 documented as of this encounter Care Teams Float Remover Relationship Specialty Start Date End Date Shannan Vieyra MD PCP - General 04/08/09 03/15/19 documented as of this encounter
--- OUTSIDE RECORDS SUMMARY | 2024-08-23 23:33 | XMS_ITS | Encounter Summary ---
Author Organization [facility] Address [address] [place] [address] Care Team Providers Care Manual Plate Filler Name Role Phone Shannan Vieyra MD Primary Care Provider Unavail able Encounter Details Date Type Department Care Team (Late st Contact Info) Description 12/27/2007 Results Only [facility] Endocrinology - [facility] [address] [place] [address] Juan Pablo Toth MD 62 [facility] [address] [place] [address] Social History Tobacco Use Types [...] 12/27/2007 14:3 4 EDT 12/27/2007 14:35 EDT us Juan Pablo Toth MD CHEMISTRY & BLOOD GAS ORDE RABLES Final Result Performing Organization Address [facility] Co de Phone Number [facility] [address] [place] [address] * T3, TOTAL (12/27/2007 14:34 EDT) T3, Total 98 60 - 181 ng/dL [facility] 12/27/2007 14:3 4 EDT 12/27/2007 14:35 EDT us Juan Pablo Toth MD CHEMISTRY & BLOOD GAS ORDE RABLES Final Result Performing Organization Address [facility] Co de Phone Number [facility] [address] [place] [address] * T4 FREE (12/27/2007 14:34 EDT) Free T4 0.8 0.8 - 1.8 ng/dL [facility] 12/27/2007 14:3 4 EDT 12/27/2007 14:35 EDT us Juan Pablo Toth MD CHEMISTRY & BLOOD GAS ORDE RABLES Final Result Performing Organization Address [facility] Co de Phone Number [facility] [address] [place] [address] documented in this encounter Visit Diagnoses Not on filedocumented in this encounter Care Teams Manual Plate Filler Relationship Specialty Start Date End Date Shannan Vieyra MD PCP - General 04/08/09 03/15/19 documented as of this encounter
--- OUTSIDE RECORDS SUMMARY | 2024-08-23 23:33 | XMS_ITS | Encounter Summary ---
Author Organization [facility] Address [address] [place] [address] Care Team Providers Care Political Research Scientist Name Role Phone Shannan Vieyra MD Primary Care Provider Unavail able Encounter Details Date Type Department Care Team (Late st Contact Info) Description 12/17/2009 Abstract [facility] - [address] [place], [place] [id number] Shannan Vieyra MD Social History Tobacco Use [...] may reflect changes made after this encounter. atenolol (TENORMIN) 50 mg tablet Take 50 mg by mouth 2 times daily. 01/16/2010 added in this encounter Care Teams Political Research Scientist Relationship Specialty Start Date End Date Shannan Vieyra MD PCP - General 04/08/09 03/15/19 documented as of this encounter
--- OUTSIDE RECORDS SUMMARY | 2024-08-23 23:33 | XMS_ITS | Encounter Summary ---
Author Organization [facility] Address [address] [place] [address] Care Team Providers Care Cable Former Name Role Phone Unavailable Primary Care Provider Unavailabl e Encounter Details Date Type Department Care Team (Late st Contact Info) Description 10/08/2008 10:19 EST - 10/08/2008 11:59 EST Hospital Encounter [address] [address] Unknown, Provider, Rod Arias MD 111 [facility], [address] [place] [phone] Discharge Disposition: Auto Discharge Social History Tobacco [...] with 2D, spectral, and color flow Doppler. [address]46[address]. INDICATION: Uncontrolled hypertension. HISTORY: ?HPT, Known small [...] with 2D, spectral, and color flow Doppler. 42721. INDICATION: Uncontrolled hypertension. HISTORY: HPT, Known small [...] significant stenosis. Resistive index is normal, 0.56. us Judith FINLEY MPH IMG US VASCULAR ORDERAB LES Final Result documented in this encounter Visit Diagnoses Not on filedocumented in this encounter
--- OUTSIDE RECORDS SUMMARY | 2024-08-23 23:33 | XMS_ITS | Encounter Summary ---
Author Organization [facility] Address [address] [place] [address] Care Team Providers Care Bench Assembler Name Role Phone Unavailable Primary Care Provider Unavailabl e Encounter Details Date Type Department Care Team (Late st Contact Info) Description 10/25/2007 7:33 EST - 10/25/2007 11:59 EST Hospital Encounter [address] [address] Kar Billings MD 111 [facility] [address] [place] [phone] Miguel Devine MD PhD 111 [facility] 1 [place] [phone] Discharge Disposition: Auto Discharge Social History Tobacco [...]
--- OUTSIDE RECORDS SUMMARY | 2024-08-23 23:33 | XMS_ITS | Encounter Summary ---
Author Organization [facility] Address [address] [place] [address] Care Team Providers Care Button Spindler Name Role Phone Unavailable Primary Care Provider Unavailabl e Encounter Details Date Type Department Care Team (Late st Contact Info) Description 02/06/2008 11:27 EDT Hospital Encounter [facility] - Maple conversion [address] [place] [address] Juan Pablo Toth MD [address] [facility] [address] [place] [phone] Social History Tobacco Use Types Packs/Day Years Used Date Smoking Tobacco: Never Smokeless Tobacco: Never Alcohol Use Standard Drinks/Week Comments No 0 (1 standard drink = 0.6 oz pur e alcohol) [facility] Utilities Answer Date Recorded In the past 12 months has [facility] electric, gas, oil, or water [...]
--- OUTSIDE RECORDS SUMMARY | 2024-08-23 23:33 | XMS_ITS | Encounter Summary ---
Author Organization [facility] Address [address] [place] [address] Care Team Providers Care Lead Quality Control Technician Name Role Phone Unavailable Primary Care Provider Unavailabl e Encounter Details Date Type Department Care Team (Late st Contact Info) Description 11/14/2006 12:16 EST Hospital Encounter [facility] - Other [address] [place] [address] Denice Martinez MD [address] [place] [address], [facility] [address] [place] [phone] Discharge Disposition: Home or Self Care Social [...]
--- OUTSIDE RECORDS SUMMARY | 2024-08-23 23:33 | XMS_ITS | Encounter Summary ---
Author Organization [facility] Address [address] [place] [address] Care Team Providers Care Motorboat Operator Name Role Phone Unavailable Primary Care Provider Unavailabl e Encounter Details Date Type Department Care Team (Latest Contact Info) Description 11/08/2007 6:01 EST - 11/08/2007 11:59 EST Hospital Encounter [facility] [address] [place] [address] Juan Pablo Toth MD [address] [place] [address] [place] [phone] Discharge Disposition: Auto Discharge Social History [...] above interpretation and agree with the findings. us Juan Pablo Toth MD [facility] [place] ORDERABLES Final Re sult * NM THYROID UPTAKE + SCAN MULTI [...] above interpretation and agree with the findings. us Juan Pablo Toth MD IMG NM ORDERABLES Final Re sult documented in this encounter Visit Diagnoses Not on filedocumented in this encounter
--- OUTSIDE RECORDS SUMMARY | 2024-08-23 23:33 | XMS_ITS | Encounter Summary ---
Author Organization [facility] Address [address] [place] [address] Care Team Providers Care Software Development Leader Name Role Phone Unavailable Primary Care Provider Unavailabl e Encounter Details Date Type Department Care Team (Late st Contact Info) Description 10/15/2008 15:58 EST Hospital Encounter [address] [address] Judith Ballard MBBS MPH [address] [place] [address], [address] [place] [phone] Social History Tobacco Use Types Packs/Day Years Used Date Smoking Tobacco: Never Smokeless Tobacco: Never Alcohol Use Standard Drinks/Week Comments No 0 (1 standard drink = 0.6 oz pur e alcohol) [facility] Utilities Answer Date Recorded In the past 12 months has [employer] electric, gas, oil, or water company threatened [...]
--- OUTSIDE RECORDS SUMMARY | 2024-08-23 23:33 | XMS_ITS | Encounter Summary ---
Author Organization [facility] Address [address] [place] [address] Care Team Providers Care Institutional Asset Manager Name Role Phone Shannan Vieyra MD Primary Care Provider Unavail able Reason for Visit * Reason Onset Date Comments Urinary Tract Infection 12/04/2010 Encounter Details Date Type Department Care Team (Late st Contact Info) Description 12/04/[address] [phone] Shannan Vieyra MD Urinary Tract Infection Social [...] Refills Last Filled Start Date End Date nitrofurantoin, macrocrystal-monohy drate, (MACROBID) 100 mg capsule Take 1 Cap by mouth 2 times daily for 7 days. 14 Cap 0 12/04/2010 12/11/2010 documented in this encounter Miscellaneous Notes * Telephone Encounter - Shannan Vieyra MD - 12/04/2010 5464 EST Agree. * Telephone Encounter - Tracy Ac RN - 12/04/2010 7721 EST Phone call to Doris Will treat this as an acute UTI and call medication into her pharmacy in [place]. (she is vacationing) with approval from Dr. [...] 1644 EST SHE IS ON VAC IN [place]. HAS A UTI. WOULD LIKE TO HAVE SOME MEDS CALLED IN FOR IT. documented in this encounter Plan of Treatment Not on file documented as of this encounter Visit Diagnoses Not on filedocumented in this encounter Care Teams Institutional Asset Manager Relationship Specialty Start Date End Date Shannan Vieyra MD PCP - General 04/08/09 03/15/19 documented as of this encounter
--- OUTSIDE RECORDS SUMMARY | 2024-08-23 23:33 | XMS_ITS | Encounter Summary ---
Author Organization [facility] Address [address] [place] [address] Care Team Providers Care Fsr Name Role Phone Unavailable Primary Care Provider Unavailabl e Encounter Details Date Type Department Care Team (Late st Contact Info) Description 12/03/2005 13:12 EST Hospital Encounter [facility] - Maple conversion [address] [place] [address] Leida Cerda PA-C [address] [place] [address] [address] [place], [place] [phone] Social History Tobacco Use Types Packs/Day Years Used Date Smoking Tobacco: Never Smokeless Tobacco: Never Alcohol Use Standard Drinks/Week Comments No 0 (1 standard drink = 0.6 oz pur e alcohol) [facility] Utilities Answer Date Recorded In the [...] EST Leida Cerda PA-C CHEMISTRY & BLOOD G ORDERABLES Final Result Performing Organization Address [facility] de Phone Number [facility] [address] [place] [address] * (ABNORMAL) T3, TOTAL (12/03/2005 13:57 EST) T3, Total 466(H) 60 - 181 ng/dl [facility] 12/03/2005 13:5 7 EST 12/03/2005 17:10 EST Leida Cerda PA-C CHEMISTRY & BLOOD G ORDERABLES Final Result Performing Organization Address [facility] Phone Number [facility] [address] [place] [address] * (ABNORMAL) T4 FREE (12/03/2005 13:57 EST) Free T4 2.9(H) 0.8 - 1.8 ng/dl [facility] 12/03/2005 13:5 7 EST 12/03/2005 17:10 EST Leida Cerda PA-C CHEMISTRY & BLOOD G ORDERABLES Final Result Performing Organization Address [facility] de Phone Number [facility] [address] [place] [address] * (ABNORMAL) HEMAGRAM (12/03/2005 13:57 EST) WBC [...] - 35.9 gm/dl [facility] PLT 213 141 - 320 K/cmm [facility] RDW-CV 14.6 11.7 - 14.6 % [facility] 12/03/2005 13:5 7 EST 12/03/2005 17:10 EST Leida Cerda PA-C HEMATOLOGY & PF4 OR DERABLES Final Result Performing Organization Address City/[facility]/ZIP Co de Phone Number [facility] [address] [place] [address] * (ABNORMAL) BASIC METABOLIC PANEL (12/03/2005 13:57 EST) Sodium 138 136 - 145 mEq/L [facility] Potassium 4.6 3.5 - 5.0 mEq/L [facility] Chloride 107 96 - 110 mEq/L [facility] CO2 25 24 - 32 mEq/L [facility] BUN 11 10 - 26 mg/dl [facility] Creatinine 0.6(L) 0.7 - 1.5 mg/dl [facility] Calcium 9.1 8.5 - 10.5 mg/dl [facility] Calculated Calcium 9.7 8.5 - 10.5 mg/dl [facility] Glucose, Serum 102 70 - 110 mg/dl [facility] Fasting? No [facility] 12/03/2005 13:5 7 EST 12/03/2005 17:10 EST us Leida Cerda PA-C CHEMISTRY & BLOOD G ORDERABLES Final Result Performing Organization Address City/[facility]/ZIP Co de Phone Number [facility] [address] [place] [address] documented in this encounter Visit Diagnoses Not on filedocumented in this encounter
--- OUTSIDE RECORDS SUMMARY | 2024-08-23 23:33 | XMS_ITS | Encounter Summary ---
Author Organization [facility] Address [address] [place] [address] Care Team Providers Care Lacemaker Name Role Phone Shannan Vieyra MD Primary Care Provider Unavail able Encounter Details Date Type Department Care Team (Late st Contact Info) Description 10/27/2007 Before PRISM Converted Visit (Maple) [facility] - Maple conversion [address] [place] [address] Juan Pablo Toth MD [employer] [address] [place] [phone] Social History Tobacco Use Types Packs/Day [...] MD 11/01/2007 16:55 Juan Pablo Toth MD [facility] automobile service advisor D: - Juan Pablo Toth MD - Job ID: [id number] Doc ID: [id number] cc: MD Miguel Clement MD Labs 10/25/2007 [...] on filedocumented in this encounter Care Teams Lacemaker Relationship Specialty Start Date End Date Shannan Vieyra MD PCP - General 04/08/09 03/15/19 documented as of this encounter
--- OUTSIDE RECORDS SUMMARY | 2024-08-23 23:33 | XMS_ITS | Encounter Summary ---
Author Organization [facility] Address [address] [place] [address] Care Team Providers Care Cigar Machine Feeder Name Role Phone Unavailable Primary Care Provider Unavailabl e Encounter Details Date Type Department Care Team (Late st Contact Info) Description 09/11/2007 14:16 EST Hospital Encounter [facility] - Maple conversion [address] [place] [address] Miguel Devine MD PhD 111 [facility] [address] [place] [phone] Discharge Disposition: Auto Discharge Social History Tobacco [...]
--- OUTSIDE RECORDS SUMMARY | 2024-08-23 23:33 | XMS_ITS | Encounter Summary ---
Author Organization [facility] Address [address] [place] [address] Care Team Providers Care Advertising Dispatch Clerks Supervisor Name Role Phone Shannan Vieyra MD Primary Care Provider Unavail able Encounter Details Date Type Department Care Team (Late st Contact Info) Description 11/07/2007 Results Only [facility] Endocrinology - [facility] [address] [place] [address] Juan Pablo Toth MD 62 [facility] [address] [place] [phone] Social History Tobacco Use Types [...] 11/07/2007 12:0 6 EST 11/07/2007 12:07 EST us Juan Pablo Toth MD URINALYSIS ORDERABLES Nellie l Result [facility] [address] [place] [address] documented in this encounter Visit Diagnoses Not on filedocumented in this encounter Care Teams Advertising Dispatch Clerks Supervisor Relationship Specialty Start Date End Date Shannan Vieyra MD PCP - General 04/08/09 03/15/19 documented as of this encounter
--- OUTSIDE RECORDS SUMMARY | 2024-08-23 23:33 | XMS_ITS | Encounter Summary ---
Author Organization [facility] Address [address] [place] [address] Care Team Providers Care Classification Case Manager Name Role Phone Unavailable Primary Care Provider Unavailabl e Encounter Details Date Type Department Care Team (Late st Contact Info) Description 09/17/2008 15:12 [facility] Hospital Encounter [address] [address] Judith Ballard MBBS MPH [address] [place] [address], Level 2 [place] [phone] Social History Tobacco Use Types Packs/Day Years Used Date Smoking Tobacco: Never Smokeless Tobacco: Never Alcohol Use Standard Drinks/Week Comments No 0 (1 standard drink = 0.6 oz pur e alcohol) [facility] Utilities Answer Date Recorded In the past 12 months has [employer] electric, gas, oil, or water company threatened [...] Name Priority Date/Time Associated Diagnosis Comments URINE [id number]-[id number]-NZLXBYERRD RATIO (ACR) Routine 09/17/2008 16:28 EST NEPHROLOGY PROFILE (INCLUDES BUN, CREATININE, CALCULATED GFR, ELECTROLYTES, CALCIUM, PHOSPHORUS, ALBUMIN) Routine 09/17/2008 16:26 EST CATECHOLAMINE FRACTIONATION, PLASMA, FREE Routine 09/17/2008 16:26 EST ALDOSTERONE, SERUM Routine 09/17/2008 16 :26 EST RENIN ACTIVITY, PLASMA Routine 8 16:26 EST COMPLETE BLOOD COUNT Routine 09/17/2008 16:26 EST documented in this encounter Results * (ABNORMAL) MICROALBUMIN (09/17/2008 16:28 EST) Creatinine, Urn [place] 80.4 mg/dl [facility] Ur Albumin mg/dl 3.0(H) <1.9 mg/dl [facility] Ur Alb ug/mg Crea 37.3 ug/mg Crea [facility] Comment: Normal: ??<30 ug/mg Creat Microalbuminuria: ??30-300 ug/mg Creat Clinical albuminuria: ??>300 ug/mg Creat 09/17/2008 16:2 8 EST 09/17/2008 16:28 EST Judith FINLEY MPH CHEMISTRY & BLOOD GAS O RDERABLES Final Result [facility] [address] [place] [address] * RENIN ACTIVITY, PLASMA (09/17/2008 16:26 EST) Pathologist [facility] Renin Activity, Plasma 2.3Unit: ng/mL/h -- REFERENCE VALUE -- ? (Peripheral vein specimen) ? Na-depleted, upright: ?Mean: 10.8 ?Range: 2.9-24 ? Na-replete, upright: ?Mean: 1.9 ?Range: <= 0.6-4.3 ? Performed or Referred by: [facility] Dpt of Lab Med and Path, [address] , [place] [address], Lab Dir: Hebert Cisneros III, ? MD ? [facility] 09/17/2008 16:2 6 EST 09/17/2008 16:28 EST us Judith L Ballard MBBS MPH CHEMISTRY & BLOOD GAS O RDERABLES Final Result [facility] [address] [place] [address] * CATECHOLAMINE FRACTIONATION, PLASMA, FREE (09/17/2008 16:26 [...] ? values. ? Performed or Referred by: [facility] Dpt of Lab Med and Path, [address] , [place] [address], Lab Dir: Hebert Cisneros III, ? MD ? [facility] 09/17/2008 16:2 6 EST 09/17/2008 16:28 EST Judith SANTANABS MPH CHEMISTRY & BLOOD GAS O RDERABLES Final Result [facility] [address] [place] [address] * ALDOSTERONE, SERUM (09/17/2008 16:26 EST) Aldosterone, Serum 6.2Reference range: <=21 Unit: ng/dL Reference range based on upright A.M. collection from subjects ? on ad rah sodium uptake. ? Performed or Referred by: [facility] Dpt of Lab Med and Path, [address] ? [place] [address], Lab Dir: Hebert Cisneros III, ? MD ? [facility] 09/17/2008 16:2 6 EST 09/17/2008 16:28 EST Judith SANTANABS MPH CHEMISTRY & BLOOD GAS O RDERABLES Final Result [facility] [address] [place] [address] * (ABNORMAL) NEPHROLOGY PROFILE (09/17/2008 16:26 EST) Sodium 139 136 - 145 mEq/L [facility] Potassium 4.1 3.5 - 5.0 mEq/L [facility] Chloride 104 96 - 110 mEq/L [facility] CO2 26 24 - 32 mEq/L [facility] Albumin 4.1 3.4 - 4.9 g/dl [facility] Calcium 9.0 8.5 - 10.5 mg/dl [facility] Calculated Calcium 9.3 8.5 - 10.5 mg/dl [facility] BUN 12 10 - 26 mg/dl [facility] Creatinine 0.70 0.7 - 1.5 mg/dl [facility] GFR, Calculated >60 ml/min/1.7 3m2 [facility] Phosphorus 2.3(L) 2.5 - 4.5 mg/dl [facility] 09/17/2008 16:2 6 EST 09/17/2008 16:28 EST Judith FINLEY MPH PACKAGES & DNA PROBE OR DERABLES Final Result Performing Organization Address City/[facility] Co de Phone Number [facility] [address] [place] [address] * HEMAGRAM (09/17/2008 16:26 EST) WBC 7.21 [...] 16:28 EST Judith FINLEY MPH HEMATOLOGY & PF4 ORDERA BLES Final Result Performing Organization Address City/[facility]/ZIP Co de Phone Number [facility] [address] [place] [address] documented in this encounter Visit Diagnoses Not on filedocumented in this encounter
--- OUTSIDE RECORDS SUMMARY | 2024-08-23 23:33 | XMS_ITS | Encounter Summary ---
Author Organization [facility] Address [address] [place] [address] Care Team Providers Care Driver Medic Name Role Phone Shannan Vieyra MD Primary Care Provider Unavail able Encounter Details Date Type Department Care Team (Late st Contact Info) Description 08/14/2010 Abstract [facility] Endocrinology - [facility] [address] [place] [address] Juan Pablo Toth MD 62 [employer] [facility] [address] [place] [address] Social History Tobacco Use Types [...] may reflect changes made after this encounter. hydrochlorothiazi de (HYDRODIURIL) 12.5 mg tablet Take 12.5 mg by mouth daily. 02/08/2011 atenolol (TENORMIN) 100 mg tablet Take 100 mg by mouth daily. 02/08/2011 added in this encounter Care Teams Driver Medic Relationship Specialty Start Date End Date Shannan Vieyra MD PCP - General 04/08/09 03/15/19 documented as of this encounter
--- OUTSIDE RECORDS SUMMARY | 2024-08-23 23:33 | XMS_ITS | Encounter Summary ---
Author Organization [facility] Address [address] [place] [address] Care Team Providers Care Museum Educator Name Role Phone Shannan Vieyra MD Primary Care Provider Unavail able Encounter Details Date Type Department Care Team (Late st Contact Info) Description 09/29/2005 Results Only [address] [phone] Sita Dunn Social History Tobacco Use Types [...] STREPTOCOCCUS (09/29/2005 12:36 EST) Specimen Description Throat [facility] Result NO GROUP A BETA STREPTOCOCCI ISOLATED [facility] Report Status Final [id number] [facility] 09/29/2005 12:3 6 EST 09/29/2005 17:02 EST Sita Dunn MICROBIOLOGY - GENERAL ORDERABLE S Final Result [facility] [address] [place] [address] documented in this encounter Visit Diagnoses Not on filedocumented in this encounter Care Teams Museum Educator Relationship Specialty Start Date End Date Shannan Vieyra MD PCP - General 04/08/09 03/15/19 documented as of this encounter
--- OUTSIDE RECORDS SUMMARY | 2024-08-23 23:33 | XMS_ITS | Encounter Summary ---
Author Organization [facility] Address [address] [place] [address] Care Team Providers Care Copper Plater Name Role Phone Unavailable Primary Care Provider Unavailabl e Encounter Details Date Type Department Care Team (Latest Contact Info) Description 11/07/2007 10:38 EST - 11/07/2007 11:59 EST Hospital Encounter [facility] [address] [place] [address] Juan Pablo Toth MD [address] [place] [phone] Discharge Disposition: Auto Discharge Social History [...]
--- OUTSIDE RECORDS SUMMARY | 2024-08-23 23:33 | XMS_ITS | Encounter Summary ---
Author Organization [facility] Address [address] [place] [address] Care Team Providers Care Bar Back Name Role Phone Shannan Vieyra MD Primary Care Provider Unavail able Encounter Details Date Type Department Care Team (Late st Contact Info) Description 02/06/2008 Results Only [facility] Endocrinology - [facility] [address] [place] [address] Juan Pablo Toth MD 62 [facility] [address] [place] [address] Social History Tobacco Use Types [...] 02/06/2008 12:0 7 EDT 02/06/2008 12:08 EDT us Juan Pablo Toth MD CHEMISTRY & BLOOD GAS ORDE RABLES Final Result Performing Organization Address [facility] Co de Phone Number [facility] [address] [place] [address] * T3, TOTAL (02/06/2008 12:07 EDT) T3, Total 87 60 - 181 ng/dL [facility] 02/06/2008 12:0 7 EDT 02/06/2008 12:08 EDT us Juan Pablo Toth MD CHEMISTRY & BLOOD GAS ORDE RABLES Final Result Performing Organization Address [facility] de Phone Number [facility] [address] [place] [address] * (ABNORMAL) T4 FREE (02/06/2008 12:07 EDT) Free T4 0.7(L) 0.8 - 1.8 ng/dL [facility] 02/06/2008 12:0 7 EDT 02/06/2008 12:08 EDT us Juan Pablo Toth MD CHEMISTRY & BLOOD GAS ORDE RABLES Final Result Performing Organization Address [facility] Co de Phone Number [facility] [address] [place] [address] documented in this encounter Visit Diagnoses Not on filedocumented in this encounter Care Teams Bar Back Relationship Specialty Start Date End Date Shannan Vieyra MD PCP - General 04/08/09 03/15/19 documented as of this encounter
--- OUTSIDE RECORDS SUMMARY | 2024-08-23 23:33 | XMS_ITS | Encounter Summary ---
Author Organization [facility] Address [address] [place] [address] Care Team Providers Care Architectural Superintendent Name Role Phone Unavailable Primary Care Provider Unavailabl e Encounter Details Date Type Department Care Team (Late st Contact Info) Description 09/25/2007 6:49 EST - 09/25/2007 11:59 EST Hospital Encounter [facility] Perioperative Services- [address] [address] Miguel Devine MD PhD [address] [place] [address] [address] 1 [place] [address] Discharge Disposition: Home or Self [...] MD Daniel Lustgarten, MD, PhD MD Eliza Levy, YUKO EP Study NAME: MARCELLO KERR Stem Roller Or Crusher Operator: Miguel Devine MD : 1980 Procedure Date: 09/25/2007 Case No: [id number] Assistants: MD Ashwin Rojas, DAXA Referring Physician: Shannan Vieyra MD Primary Care [...] causing a significant degradation in the Ms. Copenquality of life, we discussed the possibility of [...] Fellow Miguel Devine MD Attending Physician D: Sis Mondragon MD A - ksw Job ID: Document ID: [id number] cc: Shannan Vieyra MD documented in this [...] LAB 09/25/2007 7:30 EST 09/25/2007 7:42 EST us Miguel Devine MD PhD URINALYSIS ORD ERABLES Final Result [facility] [address] [place] [address] * PTT (09/25/2007 7:15 EST) PTT 26 20 - 35 secs [facility] Comment:Therapeutic Heparin range: 60-100 seconds 09/25/2007 7:15 EST 09/25/2007 7:29 EST us Miguel Devine MD PhD HEMATOLOGY & P F4 ORDERABLES Final Result [facility] [address] [place] [address] * PROTIME (09/25/2007 7:15 EST) Pro Time 14.4 12.0 - 15.0 secs [facility] I.N.R. 1.1 0.9 - 1.1 Ratio [facility] Comment: Moderate Intensity Coumadin INR = 2.0-3.0 Adjustments in anticoagulant therapy dose should be based upon the INR and NOT the Pro Time. 09/25/2007 7:15 EST 09/25/2007 7:29 EST Miguel Devine MD PhD HEMATOLOGY & P F4 ORDERABLES Final Result Performing Organization Address [facility] de Phone Number [facility] [address] [place] [address] * ELECTROLYTES (09/25/2007 7:15 EST) Pathologist [facility] Sodium 139 136 - 145 mEq/L [facility] Potassium 4.1 3.5 - 5.0 mEq/L [facility] Chloride 106 96 - 110 mEq/L [facility] CO2 26 24 - 32 mEq/L [facility] 09/25/2007 7:15 EST 09/25/2007 7:29 EST Miguel Devine MD PhD CHEMISTRY & BL OOD GAS ORDERABLES Final Result Performing Organization Address [facility] de Phone Number [facility] [address] [place] [address] * HCG (09/25/2007 7:15 EST) HCG <4 <4 mIU/ml [facility] Comment: Reference Range: Positive = >10 Borderline = 4-10 recommend repeat. Negative = <4 09/25/2007 7:15 EST 09/25/2007 7:29 EST Miguel Devine MD PhD CHEMISTRY & BL OOD GAS ORDERABLES Final Result Performing Organization Address [place]/[facility] Co de Phone Number [facility] [address] [place] [address] * (ABNORMAL) CREATININE (09/25/2007 7:15 EST) Creatinine 0.51(L) 0.7 - 1.5 mg/dl [facility] GFR, Calculated >60 ml/min/1.7 3m2 [facility] 09/25/2007 7:15 EST 09/25/2007 7:29 EST us Miugel Devine MD PhD CHEMISTRY & BL OOD GAS ORDERABLES Final Result Performing Organization Address [facility] de Phone Number [facility] [address] [place] [address] * (ABNORMAL) HEMAGRAM (09/25/2007 7:15 EST) WBC [...] 09/25/2007 7:29 EST Miguel Devine MD PhD HEMATOLOGY & P F4 ORDERABLES Final Result Performing Organization Address [place]/[facility] Co de Phone Number [facility] [address] [place] [address] * BUN (09/25/2007 7:15 EST) BUN 13 10 - 26 mg/dl [facility] 09/25/2007 7:15 EST 09/25/2007 7:29 EST us Miguel Devine MD PhD CHEMISTRY & BL OOD GAS ORDERABLES Final Result [facility] [address] [place] [address] documented in this encounter Visit Diagnoses Not on filedocumented in this encounter
--- OUTSIDE RECORDS SUMMARY | 2024-08-23 23:33 | XMS_ITS | Encounter Summary ---
Author Organization [facility] Address [address] [place] [address] Care Team Providers Care Pharmaceutical Salesperson Name Role Phone Shannan Vieyra MD Primary Care Provider Unavail able Reason for Visit * Reason Comments Graves' Disease Encounter Details Date Type Department Care Team (Latest Contact Info) Description 02/08/2011 13:30 EDT Office Visit [facility] Endocrinology - [facility] [address] [place] [address] Juan Pablo Toth MD 62 [facility] [address] [place] [address] Other postablative hypothyroidism (Primary Dx) [...] FOR PROPER ABSORPTION 100 Tab 4 02/08/2011 1 documented in this encounter Progress Notes [...] (specimen) 02/08/2011 14:07 EDT 02/08/2011 14:09 EDT us Juan Pablo Toth MD CHEMISTRY & BLOOD GAS ELLEN LAL Final Result [facility] [address] [place] [address] * TSH (02/08/2011 14:07 EDT) TSH 1.21 0.35 - 5.00 uIU/ml [facility] Blood specimen (specimen) 02/08/2011 14:07 EDT 02/08/2011 14:09 EDT Juan Pablo Toth MD CHEMISTRY & BLOOD GAS ORDE RABLES Final Result Performing Organization Address [facility] Co de Phone Number [facility] [address] [place] [address] * T4 FREE (02/08/2011 14:07 EDT) Free T4 0.8 0.8 - 1.8 ng/dL [facility] Blood specimen (specimen) 02/08/2011 14:07 EDT 02/08/2011 14:09 EDT Juan Pablo Toth MD CHEMISTRY & BLOOD GAS ORDE RABLES Final Result Performing Organization Address [facility] de Phone Number [facility] [address] [place] [address] documented in this encounter Visit Diagnoses Diagnosis [...] documented as of this encounter Care Teams Pharmaceutical Salesperson Relationship Specialty Start Date End Date Shannan Vieyra MD PCP - General 04/08/09 03/15/19 documented as of this encounter
--- OUTSIDE RECORDS SUMMARY | 2024-08-23 23:33 | XMS_ITS | Encounter Summary ---
Author Organization [facility] Address [address] [place] [address] Care Team Providers Care Operations Architect Name Role Phone Shannan Vieyra MD Primary Care Provider Unavail able Encounter Details Date Type Department Care Team (Late st Contact Info) Description 04/15/2008 Before PRISM Converted Visit ([facility]) [facility] conversion [address] [place] [address] Juan Pablo Toth MD [employer] [address] [place] [phone] Social History Tobacco Use Types Packs/Day [...] arrhythmia for which she has seen a manager knowledge over a period of time. She has [...] MD 04/21/2008 22:05 Juan Pablo Toth MD [facility] deputy k 9 - Juan Pablo Toth MD - SHARI Job ID: [id number] Doc ID: [id number] cc: Shannan Vieyra MD documented in this encounter Plan of Treatment Not on file documented as of this encounter Visit Diagnoses Not on filedocumented in this encounter Care Teams Operations Architect Relationship Specialty Start Date End Date Shannan Vieyra MD PCP - General 04/08/09 03/15/19 documented as of this encounter
--- OUTSIDE RECORDS SUMMARY | 2024-08-23 23:33 | XMS_ITS | Encounter Summary ---
Author Organization [facility] Address [address] [place] [address] Care Team Providers Care Batch Dumper Name Role Phone Shannan [place] MD Primary Care Provider Unavail able Encounter Details Date Type Department Care Team (Late st Contact Info) Description 10/25/2007 Before PRISM Converted Visit ([place]) [facility] - [place] conversion [address] [place] [address] Kar Encinas MD [address] [place] [address], [facility] [address] [place] [phone] Social History Tobacco Use Types Packs/Day Years Used Date Smoking Tobacco: Never Assessed Comments Unknown Sex and Gender Information Value Date Recorded Sex Assigned at Not on file Legal Sex Female 18:04 EST Gender Identity Not on file Sexual Orientation Not on file documented as of this encounter Procedure Notes * Kar Encinas MD - 08/19/2009 0540 EST [facility] Colonoscopy Procedure Report Attending Physician: KAR ENCINAS [...] ENCINAS MD, M.D. on 10/25/2007 at 09:03 [employer] Document ID: [id number] * Kar Encinas MD - 08/19/2009 0540 EST [facility] Esophagogastroduodenoscopy Procedure Report Attending Physician: KAR ENCINAS [...] biopsy, then treat accordingly with referral to supply planner for gluten-free diet and repeat EGD with biopsy in 6 months. Performed By: The procedure was performed by Dr. Kar Encinas. Report electronically signed by Dr. KAR ENCINAS MD, M.D. on 10/25/2007 at 09:16 [facility] Document ID: [id number] documented in this encounter Plan of Treatment Not on file documented as of this encounter Visit Diagnoses Not on filedocumented in this encounter Care Teams Batch Dumper Relationship Specialty Start Date End Date Shannan Winter MD PCP - General 04/08/09 03/15/19 documented as of this encounter
--- OUTSIDE RECORDS SUMMARY | 2024-08-23 23:33 | XMS_ITS | Encounter Summary ---
Author Organization [facility] Address [address] [place] [address] Care Team Providers Care Granite Block Paver Name Role Phone Shannan Vieyra MD Primary Care Provider Unavail able Encounter Details Date Type Department Care Team (Late st Contact Info) Description 09/11/2007 Before PRISM Converted Visit (Maple) [facility] - [place] conversion [address] [place] [address] Flako Mondragon MD, [address] [place] [address] Social History Tobacco Use Types Packs/Day Years Used Date Smoking Tobacco: Never Assessed Comments Unknown Sex and Gender Information Value Date Recorded Sex Assigned at Not on file Legal Sex Female 18:04 EST Gender Identity Not on file Sexual Orientation Not on file documented as of this encounter Progress Notes * Flako Mondragon - 08/20/2009 1256 EST RE: NAME: DORIS KERR : 1980 PROGRESS/FOLLOWUP NOTE - 10/09/[address] [facility] [address] [place], [place] Dear Dr. Vieyra: We had the pleasure of seeing Doris eKrr back in cardiac arrhythmia clinic today for [...] We are asking her to contact her nail welter to furtherdiscuss this issue and we will [...] Flako Mondragon MD - dsp Job ID: [id number] Doc ID: [id number] cc: Shannan Vieyra MD documented in this encounter Plan of Treatment Not on file documented as of this encounter Visit Diagnoses * Evaluation - Flako Mondragon - 08/17/2009 0216 EST RE: NAME: DORIS KERR : 1980 NEW PATIENT EVALUATION - 09/11/2007 Jessie Vieyra M.D. [address] Vieyra: We had the [...] She denies use of any drugs or biiy-bri-zudnsum stimulants. She does not have a high [...] study to further delineate the nature of Jerardot tachycardia. Perhaps this is an atrial tachycardia, [...] Flako Mondragon MD - dsp Job ID: [id number] Doc ID: [id number] cc: documented in this encounter Care Teams Granite Block Paver Relationship Specialty Start Date End Date Shannan Vieyra MD PCP - General 04/08/09 03/15/19 documented as of this encounter
--- OUTSIDE RECORDS SUMMARY | 2024-08-23 23:33 | XMS_ITS | Encounter Summary ---
Author Organization [facility] Address [address] [place] [address] Care Team Providers Care Career And Transition Teacher Name Role Phone Shannan Vieyra MD Primary Care Provider Unavail able Encounter Details Date Type Department Care Team (Late st Contact Info) Description 12/04/2007 Results Only [facility] Endocrinology - [facility] [address] [place] [address] Juan Pablo Toth MD 62 [facility] [address] [place] [address] Social History Tobacco Use Types [...] 12/04/2007 12:0 9 EST 12/04/2007 12:10 EST us Juan Pablo Toth MD CHEMISTRY & BLOOD GAS ORDE RABBYRON Final Result Performing Organization Address City/[facility]/ZIP Co de Phone Number [facility] [address] [place] [address] * (ABNORMAL) T4 FREE (12/04/2007 12:09 EST) Free T4 4.1(H) 0.8 - 1.8 ng/dL [facility] 12/04/2007 12:0 9 EST 12/04/2007 12:10 EST Juan Pablo Toth MD CHEMISTRY & BLOOD GAS ARONE HALI Final Result Performing Organization Address [facility] Co de Phone Number [facility] [address] [place] [address] documented in this encounter Visit Diagnoses Not on filedocumented in this encounter Care Teams Career And Transition Teacher Relationship Specialty Start Date End Date Shannan Vieyra MD PCP - General 04/08/09 03/15/19 documented as of this encounter
--- OUTSIDE RECORDS SUMMARY | 2024-08-23 23:33 | XMS_ITS | Encounter Summary ---
Author Organization [facility] Address [address] [place] [address] Care Team Providers Care American History Professor Name Role Phone Shannan Vieyra MD Primary Care Provider Unavail able Encounter Details Date Type Department Care Team (Late st Contact Info) Description 12/31/2009 8:08 EDT - 12/31/2009 23:59 EDT Hospital Encounter [facility] - Other [address] [place] [address] Denice Martinez MD 111 [facility], [facility] [address] [place] [phone] Discharge Disposition: Home or Self Care Social [...] this encounter Medications at Time of Discharge ALBUTEROL INHL Inhale 2 Puffs as directed. 02/13/2010 atenolol (TENORMIN) 50 mg tablet Take 50 mg by mouth 2 times daily. 01/16/2010 levonorgestrel-et hinyl estradiol (SEASONALE) 0.15-30 mg-mcg per tablet Take 1 Tab by mouth daily. 06/25/2020 levothyroxine (SYNTHROID) 100 mcg tablet Take 100 mcg by mouth daily. BRAND ONLY/DR. DESAI 11/06/2010 lisinopril-hydroc hlorothiazide (PRINZIDE, ZESTORETIC) 20-12.5 mg per tabletIndications :Hypertension Take 1 Tab by mouth daily. 90 Tab 3 11/14/2009 03/09/2011 documented as of this encounter Discharge Disposition Disposition Code Departure Means Destination Home or Self Care documented in this encounter Plan of Treatment Not on file documented as of this encounter Visit Diagnoses Not on filedocumented in this encounter Care Teams American History Professor Relationship Specialty Start Date End Date Shannan Vieyra MD PCP - General 04/08/09 03/15/19 documented as of this encounter
--- OUTSIDE RECORDS SUMMARY | 2024-08-23 23:33 | XMS_ITS | Encounter Summary ---
Author Organization [facility] Address [address] [place] [address] Care Team Providers Care Chief Dietitian Name Role Phone Shannan Winter MD Primary Care Provider Unavail able Encounter Details Date Type Department Care Team (Late st Contact Info) Description 11/14/2006 Results Only [facility] - Maple conversion [address] [place] [address] Julita Martinez MD [address] [place] [address], [facility] [address] [place] [phone] Social History Tobacco Use Types Packs/Day Years [...] ? DORIS KERR ? Accession #: ? [id number] : ? 1980 (Age: 26) ??F ?Collect Date: ? 11/14/2006 Location: ? [facility] ? Receive Date: ? 11/15/2006 Provider: ?JULITA MARTINEZ MD Copy to: ?SHANNAN WINTER MD ? Specimen/Source: ?ThinPrep Pap Test, Cervix/Endocervix, processed on [place] [employer] ThinPrep Imaging System, with manual evaluation Last [...] End of Report [facility] 11/14/2006 11/15/2006 us Julita Martinez MD PATHOLOGY ORDERABLES Final R esult [facility] [address] [place] [address] documented in this encounter Visit Diagnoses Not on filedocumented in this encounter Care Teams Chief Dietitian Relationship Specialty Start Date End Date Shannan Winter MD PCP - General 04/08/09 03/15/19 documented as of this encounter
--- OUTSIDE RECORDS SUMMARY | 2024-08-23 23:33 | XMS_ITS | Encounter Summary ---
Author Organization [facility] Address [address] [place] [address] Care Team Providers Care Network Communications Engineer Name Role Phone Unavailable Primary Care Provider Unavailabl e Encounter Details Date Type Department Care Team (Late st Contact Info) Description 03/18/2008 15:10 EDT Hospital Encounter [facility] - Maple conversion [address] [place] [address] Miguel Devine MD PhD 111 [facility] 1 [place] [phone] Discharge Disposition: Auto Discharge Social History Tobacco [...]
--- OUTSIDE RECORDS SUMMARY | 2024-08-23 23:33 | XMS_ITS | Encounter Summary ---
Author Organization [facility] Address [address] [place] [address] Care Team Providers Care Traffic Control Supervisor Name Role Phone Shannan Vieyra MD Primary Care Provider Unavail able Reason for Visit * Reason Onset Date Comments Letter for School/Work 02/16/2010 Encounter Details Date Type Department Care Team (Late st Contact Info) Description 02/16/[address] [facility] Family Medicine - [address] [phone] Shannan Vieyra MD Letter for School/Work Social [...] Telephone Encounter - Edel Crocker - 02/16/2010 1122 EDT Needs a note stating that she should be out of work and school until Tuesday. Was seen on Tuesday by Dr. Vieyra. Please call when ready to miner pick. documented in this encounter Plan of Treatment Not on file documented as of this encounter Visit Diagnoses Not on filedocumented in this encounter Care Teams Traffic Control Supervisor Relationship Specialty Start Date End Date Shannan Vieyra MD PCP - General 04/08/09 03/15/19 documented as of this encounter
--- OUTSIDE RECORDS SUMMARY | 2024-08-23 23:33 | XMS_ITS | Encounter Summary ---
Author Organization [facility] Address [address] [place] [address] Care Team Providers Care Dry Transfer Worker Name Role Phone Unavailable Primary Care Provider Unavailabl e Encounter Details Date Type Department Care Team (Late st Contact Info) Description 10/09/2007 14:10 EST Hospital Encounter [facility] - Maple conversion [address] [place] [address] Miguel Devine MD PhD 111 [facility] 1 [place] [phone] Social History Tobacco Use Types Packs/Day Years Used Date Smoking Tobacco: Never Smokeless Tobacco: Never Alcohol Use Standard Drinks/Week Comments No 0 (1 standard drink = 0.6 oz pur e alcohol) [facility] Utilities Answer Date Recorded In the past 12 months has [facility] electric, gas, oil, or water company [...]
--- OUTSIDE RECORDS SUMMARY | 2024-08-23 23:33 | XMS_ITS | Encounter Summary ---
Author Organization [facility] Address [address] [place] [address] Care Team Providers Care Transport Engineer Name Role Phone Shannan Vieyra MD Primary Care Provider Unavail able Encounter Details Date Type Department Care Team (Late st Contact Info) Description 02/06/2008 Before PRISM Converted Visit (Maple) [facility] - Maple conversion [address] [place] [address] Juan Pablo Toth MD [employer] [address] [place] [phone] Social History Tobacco Use Types Packs/Day [...] MD 02/09/2008 12:25 Juan Pablo Toth MD [facility] Diabetes Graham metal hanger D: - Juan Pablo Toth MD - DS Job ID: [id number] Doc ID: [id number] cc: Shannan Vieyra MD ADDENDUM Start on [...] on filedocumented in this encounter Care Teams Transport Engineer Relationship Specialty Start Date End Date Shannan Vieyra MD PCP - General 04/08/09 03/15/19 documented as of this encounter
--- OUTSIDE RECORDS SUMMARY | 2024-08-23 23:33 | XMS_ITS | Encounter Summary ---
Author Organization [facility] Address [address] [place] [address] Care Team Providers Care Animal Hospital Clerk Name Role Phone Shannan Vieyra MD Primary Care Provider Unavail able Encounter Details Date Type Department Care Team (Late st Contact Info) Description 12/04/2007 Before PRISM Converted Visit (Maple) [facility] - Maple conversion [address] [place] [address] Juan Pablo Toth MD [employer] [address] [place] [phone] Social History Tobacco Use Types Packs/Day Years Used Date Smoking Tobacco: Never Assessed Comments Unknown Sex and Gender Information Value Date Recorded Sex Assigned at Not on file Legal Sex Female 18:04 EST Gender Identity Not on file Sexual Orientation Not on file documented as of this encounter Progress Notes * Juan Pablo Toth MD - 08/19/20092100 EST DIVISION OF ENDOCRINOLOGY PROGRESS/FOLLOWUP NOTE - 12/04/2007 SUBJECTIVE Doris Kerr comes in today for [...] MD 12/06/2007 12:25 Juan Pablo Toth MD [facility] account support manager D: - Juan Pablo Toth MD - DM Job ID: [id number] Doc ID: [id number] cc: Shannan Vieyra MD ADDENDUM - still toxic Asked to double atenolol 12/04/2007 12:09 T4, Free H 4.1 ng/dL 0.8-1.8 Final * 12/04/2007 12:09 TSH L <0.02 uIU/m... 0.35-5.00 Final * documented in this encounter Plan of Treatment Not on file documented as of this encounter Visit Diagnoses Not on filedocumented in this encounter Care Teams Animal Hospital Clerk Relationship Specialty Start Date End Date Shannan Vieyra MD PCP - General 04/08/09 03/15/19 documented as of this encounter
--- OUTSIDE RECORDS SUMMARY | 2024-08-23 23:33 | XMS_ITS | Encounter Summary ---
Author Organization [facility] Address [address] [place] [address] Care Team Providers Care Table Cut Off Saw Operator Name Role Phone Shannan Vieyra MD Primary Care Provider Unavail able Encounter Details Date Type Department Care Team (Late st Contact Info) Description 02/08/2011 Phlebotomy Only [address] [address] Returned Goods Repairer, Outpatient Other postablative hypothyroidism Social History Tobacco [...] ORDE RABLES Final Result Performing Organization Address City/[facility] Co de Phone Number [facility] [address] [place] [address] * TSH (02/08/2011 14:07 EDT) TSH 1.21 0.35 - 5.00 uIU/ml [facility] Blood specimen (specimen) 02/08/2011 14:07 EDT 02/08/2011 14:09 EDT us Juan Pablo Toth MD CHEMISTRY & BLOOD GAS ORDE RABLES Final Result Performing Organization Address [facility] Co de Phone Number [facility] [address] [place] [address] * T4 FREE (02/08/2011 14:07 EDT) Free T4 0.8 0.8 - 1.8 ng/dL [facility] Blood specimen (specimen) 02/08/2011 14:07 EDT 02/08/2011 14:09 EDT us Juan Pablo Toth MD CHEMISTRY & BLOOD GAS ORDE RABLES Final Result Performing Organization Address [facility] Co de Phone Number [facility] [address] [place] [address] documented in this encounter Visit Diagnoses Diagnosis Other postablative hypothyroidism documented in this encounter Care Teams Table Cut Off Saw Operator Relationship Specialty Start Date End Date Shannan Vieyra MD PCP - General 04/08/09 03/15/19 documented as of this encounter
--- OUTSIDE RECORDS SUMMARY | 2024-08-23 23:33 | XMS_ITS | Encounter Summary ---
Author Organization [facility] Address [address] [place] [address] Care Team Providers Care Mud Tank Operator Name Role Phone Shannan Vieyra MD Primary Care Provider Unavail able Encounter Details Date Type Department Care Team (Late st Contact Info) Description 11/19/2006 Office Visit [facility] - Maple conversion [address] [place] [address] Humaira Gallagher MD [address] [place] [phone] Social History Tobacco Use Types Packs/Day Years Used Date Smoking Tobacco: Never Assessed Comments Unknown Sex and Gender Information Value Date Recorded Sex Assigned at Not on file Legal Sex Female 18:04 EST Gender Identity Not on file Sexual Orientation Not on file documented as of this encounter Progress Notes * Humaira Gallagher MD - 12/04/2009 0223 EST [facility] [place] - Physician Summary Registration Date/Time: 11/19/2006 14:12 [...] Course: Given ibuprofen and tylenol.. CLINICAL IMPRESSION [id number] toe fracture. INSTRUCTIONS Apply ice intermittently (15-20 minutes at a time 4-6 times daily). Use crutches. Jeremie tape toes. Elevate affected areas abovechest level. No weight bearing. You have an incomplete fracture of the right 5th toe. Call your primary care doctor's office Tuesday morning to arrange follow-up.. Warnings: GENERAL WARNINGS: Return or contact your physician immediately if your condition worsens or changesunexpectedly, if not improving as expected, or if other problemsarise. (Electronically signed by Humaira Gallagher M.D. 11/19/2006 19:07) Addenda DORIS Hernandez VisitID: [id number] Date:11/19/2006 11/19/2006 14:21 Pt states they were referred to [facility] by their PCP. signed by Aura Pearce - 11/19/2006 14:21) Care Center - Nursing Summary Registration Date/Time: 11/19/2006 14:12 TRIAGE Initial Assessment Triage time 15:01. BP: 130 / 60 sitting R arm manual. HR: 100. RR: 16. Temp: 96.7 oral. (done by Essence). --1507 Kita Cordero RAnayN.. Medications (atenolol,tapezol,bc pill). --1507 Kita Cordero R.N.. Allergies (pcn,sulfa). --1507 Kita Cordero R.N.. History Chief Complaint: INJURY TO RIGHT FOOT. This occurred last night. Mechanism of injury: a blow (on [place]). Pain level now: 6/10. Pain level (pain mostly to 5th digit of right foot). The patient has had trouble walking. No numbness or tingling. Treatment WEB ARCHITECT: Ice. PAST HX: No infectious disease exposure. [...] Discharge instructions reviewed with the patient and vice president quality.Patient verbalized understanding. The patient was discharged home and accompanied by vice president quality. The patient left the Emergency Department ambulatory and via private vehicle. Operation Manager driving. Departure time: 18:01. --1801 Daiana Diego R.N.. Locked/Released at 11/19/2006 18:01 by Daiana Diego R.N. documented in this encounter Plan of Treatment Not on file documented as of this encounter Visit Diagnoses Not on filedocumented in this encounter Care Teams Mud Tank Operator Relationship Specialty Start Date End Date Shannan Vieyra MD PCP - General 04/08/09 03/15/19 documented as of this encounter
--- OUTSIDE RECORDS SUMMARY | 2024-08-23 23:33 | XMS_ITS | Encounter Summary ---
Author Organization [facility] Address [address] [place] [address] Care Team Providers Care Fiber Technologist Name Role Phone Shannan Vieyra MD Primary Care Provider Unavail able Reason for Visit * Reason Onset Date Comments Medication Problem 02/13/2010 Encounter Details Date Type Department Care Team (Late st Contact Info) Description 02/13/[address] [address] Shannan Vieyra MD Medication Problem Social History [...] Refills Last Filled Start Date End Date Codeine-Guaifenesi n 10-200 mg/5 mL LiqdIndications:Co ugh Take 5 mL by mouth every 4 hours as needed for Other. cough 120 mL 1 02/13/2010 02/08/2011 documented in this encounter Miscellaneous Notes * Telephone Encounter - Edel Crocker - 02/13/2010 8049 EDT Patient called and stated that pharmacy needs PA for tussionex. Dr. Vieyra suggested robitussin with codeine. Patient is ok with this. Can this be ordered and called in? documented in this encounter Plan of Treatment Not on file documented as of this encounter Visit Diagnoses Diagnosis Cough- Primary documented in this encounter Care Teams Fiber Technologist Relationship Specialty Start Date End Date Shannan Vieyra MD PCP - General 04/08/09 03/15/19 documented as of this encounter
--- OUTSIDE RECORDS SUMMARY | 2024-08-23 23:33 | XMS_ITS | Encounter Summary ---
Author Organization [facility] Address [address] [place] [address] Care Team Providers Care Antenna Installer Name Role Phone Unavailable Primary Care Provider Unavailabl e Encounter Details Date Type Department Care Team (Late st Contact Info) Description 11/04/2008 15:16 EST Hospital Encounter [facility] - Maple conversion [address] [place] [address] Miguel Devine MD PhD 111 [facility] 1 [place] [phone] Discharge Disposition: Auto Discharge Social History Tobacco [...] (specimen) 06/02/2009 15:57 EDT 06/02/2009 15:58 EDT us Juan Pablo Toth MD CHEMISTRY & BLOOD GAS ORDE RABBYRON Final Result Performing Organization Address [facility] Co de Phone Number [facility] [address] [place] [address] * T4 FREE (06/02/2009 15:57 EDT) Free T4 1.4 0.8 - 1.8 ng/dL [facility] Blood specimen (specimen) 06/02/2009 15:57 EDT 06/02/2009 15:58 EDT us Juan Pablo Toth MD CHEMISTRY & BLOOD GAS ORDE RABBYRON Final Result Performing Organization Address [facility] Co de Phone Number [facility] [address] [place] [address] documented in this encounter Visit Diagnoses Not on filedocumented in this encounter
--- OUTSIDE RECORDS SUMMARY | 2024-08-23 23:33 | XMS_ITS | Encounter Summary ---
Author Organization [facility] Address [address] [place] [address] Care Team Providers Care Automotive Lot Attendant Name Role Phone Unavailable Primary Care Provider Unavailabl e Encounter Details Date Type Department Care Team (Latest Contact Info) Description 11/19/2006 14:07 EST Hospital Encounter [address] [address] Humaira Gallagher MD [address] [place] [phone] Discharge Disposition: Auto Discharge Social History [...] 16:3 8 EST Narrative 04/19/2009 6:00 EDT *[facility]-[id number]* 26 year old wiht blow to foot, 5th digit pain limping about RIGHT FOOT, 3+ VIEWS: ??11/19/06 HISTORY: ??Blow to foot, 5th digit pain. ??Rule out fracture. FINDINGS: ??Three views of the right foot show two incomplete fracture lines obliquely oriented at the proximal 5th phalanx. ??No dislocation or angulation is evident. ??This was communicated to Dr. Gallagher. D: ? 11/19/06 T: ? 11/22/06amn I have personally reviewed the images and the above interpretation and agree with the findings. Procedure Note Randal Jensen MD / Michelle Coelho MD - 04/19/2009 *[facility]-[id number]* 26 year old wiht blow to foot, 5th digit pain limping about RIGHT FOOT, 3+ VIEWS: 11/19/06 HISTORY: Blow to foot, 5th digit pain. Rule out fracture. FINDINGS: Three views of the right foot show two incomplete fracture lines obliquely oriented at the proximal 5th phalanx. No dislocation or angulation is evident. This was communicated to Dr. Gallagher. amn I have personally reviewed the images and the above interpretation and agree with the findings. us Humaira Gallagher MD IMG DIAGNOSTIC IMAGING ORD ERABLES Final Result documented in this encounter Visit Diagnoses Not on filedocumented in this encounter
--- OUTSIDE RECORDS SUMMARY | 2024-08-23 23:33 | XMS_ITS | Encounter Summary ---
Author Organization [facility] Address [address] [place] [address] Care Team Providers Care Expansion Envelope Maker Hand Name Role Phone Shannan Vieyra MD Primary Care Provider Unavail able Encounter Details Date Type Department Care Team (Late st Contact Info) Description 11/12/[address] [address] Shannan Vieyra MD Asthma; Contraceptive management; Hypothyroidism; [...] may reflect changes made after this encounter. ALBUTEROL INHL Inhale 2 Puffs as directed. 02/13/2010 levonorgestrel-et hinyl estradiol (SEASONALE) 0.15-30 mg-mcg per tablet Take 1 Tab by mouth daily. 06/25/2020 methimazole (TAPAZOLE) 10 mg tablet Take 10 mg by mouth 4 times daily. 11/14/2009 atenolol (TENORMIN) 25 mg tablet Take 8 Tabs by mouth daily. (200 mg) 11/14/2009 added in this encounter Care Teams Expansion Envelope Maker Hand Relationship Specialty Start Date End Date Shannan Vieyra MD PCP - General 04/08/09 03/15/19 documented as of this encounter
--- OUTSIDE RECORDS SUMMARY | 2024-08-23 23:33 | XMS_ITS | Encounter Summary ---
Author Organization [facility] Address [address] [place] [address] Care Team Providers Care Gaming Surveillance Observer Name Role Phone Unavailable Primary Care Provider Unavailabl e Encounter Details Date Type Department Care Team (Late st Contact Info) Description 09/05/2007 11:06 [facility] Hospital Encounter [facility] - Maple conversion [address] [place] [address] Shannan Vieyra MD Social History Tobacco Use [...]
--- OUTSIDE RECORDS SUMMARY | 2024-08-23 23:34 | XMS_ITS | Encounter Summary ---
Author Organization [facility] Address [address] [place] [address] Care Team Providers Care Conveyor Man Name Role Phone Unavailable Primary Care Provider Unavailabl e Encounter Details Date Type Department Care Team (Late st Contact Info) Description 05/06/2005 9:02 EDT Hospital Encounter [address] [address] Denice Martinez MD [address] [place] [address], [address] [place] [phone] Social History Tobacco Use Types Packs/Day Years Used Date Smoking Tobacco: Never Smokeless Tobacco: Never Alcohol Use Standard Drinks/Week Comments No 0 (1 standard drink = 0.6 oz pur e alcohol) [facility] Utilities Answer Date Recorded In the past 12 months has [employer], gas, oil, or water indidebt threatened to shut off services in your [...]
--- OUTSIDE RECORDS SUMMARY | 2024-08-23 23:34 | XMS_ITS | Encounter Summary ---
Author Organization [facility] Address [address] [place] [address] Care Team Providers Care Jewelry Polisher Name Role Phone Shannan Vieyra MD Primary Care Provider Unavail able Encounter Details Date Type Department Care Team (Late st Contact Info) Description 10/22/2004 Results Only [facility] - Maple conversion [address] [place] [address] BaltazarTrue richardson MD [address] [place] [address] Social History Tobacco Use Types Packs/Day Years [...] organism [facility] Report Status Final [id number] [facility] 10/22/2004 18:1 5 EST 10/22/2004 18:17 EST True Ledesma MD MICROBIOLOGY - GENERAL OR DERABLES Final Result Performing Organization Address [facility] Phone Number [facility] [address] [place] [address] * UA REFLEX (10/22/2004 18:15 EST) Pathologist [facility] UA Billing Microscopic not indicated. [facility] 10/22/2004 18:1 5 EST 10/22/2004 18:17 EST True Ledesma MD URINALYSIS ORDERABLES Fin al Result Performing Organization Address [facility] de Phone Number [facility] [address] [place] [address] * URINALYSIS (10/22/2004 18:15 EST) Color, UA Yellow [facility] Clarity, UA Clear [facility] Glucose, UA Norm NORM [facility] Bilirubin, UA Neg NEG [facility] Ketones, UA Neg NEG [facility] Specific Purmela, Urine 1.010 1.005 - 1.02 [facility] Blood, UA Neg NEG [facility] pH, UA 8.5 5.0 - 9.0 [facility] Protein, UA Neg NEG [facility] Urobilinogen, UA Norm NORM mg/dL [facility] Nitrite, UA Neg NEG [facility] Leuk Esterase Neg NEG [facility] 10/22/2004 18:1 5 EST 10/22/2004 18:17 EST us True Ledesma MD URINALYSIS ORDERABLES Fin al Result Performing Organization Address [facility] de Phone Number [facility] [address] [place] [address] * (ABNORMAL) TSH (10/22/2004 18:13 EST) TSH <0.02(L) 0.35 - 5.50 uIU/ml [facility] 10/22/2004 18:1 3 EST 10/22/2004 18:16 EST True Ledesma MD CHEMISTRY & BLOOD GAS ORD ERABLES Final Result Performing Organization Address [facility] Phone Number [facility] [address] [place] [address] * (ABNORMAL) T4 (10/22/2004 18:13 EST) T4, Total 18.2(H) 4.5 - 10.9 ug/dl [facility] 10/22/2004 18:1 3 EST 10/22/2004 18:16 EST True Ledesma MD CHEMISTRY & BLOOD GAS ORD ERABLES Final Result Performing Organization Address [facility] de Phone Number [facility] [address] [place] [address] * (ABNORMAL) T3, TOTAL (10/22/2004 18:13 EST) T3, Total 395(H) 60 - 181 ng/dl [facility] 10/22/2004 18:1 3 EST 10/22/2004 18:16 EST us True Ledesma MD CHEMISTRY & BLOOD GAS ORD ERABLES Final Result [facility] [address] [place] [address] * (ABNORMAL) T4 FREE (10/22/2004 18:13 EST) Free T4 3.0(H) 0.8 - 1.8 ng/dl [facility] 10/22/2004 18:1 3 EST 10/22/2004 18:16 EST True Ledesma MD CHEMISTRY & BLOOD GAS ORD ERABLES Final Result Performing Organization Address City/[facility] Co de Phone Number [facility] [address] [place] [address] * PROFILE (10/22/2004 18:13 EST) ABO and Rh Type A POS FLEAlisa [facility] Antibody Screen Neg SHERI [facility] WBC 7.47 4.0 - 12.4 [...] ABS Lymphs 2.37 1.09 - 3.30 K/cmm [facility] ABS Monocytes 0.48 0.1 - 0.8 K/cmm [facility] ABS Eosinophils 0.13 0.03 - 0.61 K/cmm [facility] ABS Basophils 0.05 0.01 - 0.11 K/cmm [facility] Type of Diff: Automated [facility] Hepatitis B Surface Ag Neg [facility] Syphilis Sero (RPR) NONREACT. NR Dils [facility] Rubella IgG Scr Antibody detected [facility] 10/22/2004 18:1 3 EST 10/22/2004 18:16 EST us True Ledesma MD PACKAGES & DNA PROBE ELLEN LAL Final Result [facility] [address] [place] [address] documented in this encounter Visit Diagnoses Not on filedocumented in this encounter Care Teams Jewelry Polisher Relationship Specialty Start Date End Date Shannan Vieyra MD PCP - General 04/08/09 03/15/19 documented as of this encounter
--- OUTSIDE RECORDS SUMMARY | 2024-08-23 23:34 | XMS_ITS | Encounter Summary ---
Author Organization [facility] Address [address] [place] [address] Care Team Providers Care Inspector Machined Parts Name Role Phone Shannan Vieyra MD Primary Care Provider Unavail Leida Jackson PA-C Primary Care Provi melvin Comfort Zelaya NP Primary Care Provider [phone] Encounter Details Date Type Department Care Team (Late st Contact Info) Description 06/10/2004 Before PRISM Converted Visit (Maple) [facility] - Maple conversion [address] [place] [address] Paradise Padilla MD [address] [place] [address] Social History Tobacco Use Types Packs/Day Years [...] on filedocumented in this encounter Care Teams Inspector Machined Parts Relationship Specialty Start Date End Date Shannan Vieyra MD PCP - General 04/08/09 03/15/19 Leida Cerda PA-C PCP - General 03/16/19 03/07/22 Comfort Zelaya NP [address] [place] [address] PCP - General Family Medicine - Primary Care 03/08/22 documented as of this encounter
--- OUTSIDE RECORDS SUMMARY | 2024-08-23 23:34 | XMS_ITS | Encounter Summary ---
Author Organization [facility] Address [address] [place] [address] Care Team Providers Care Bullet Assembly Press Operator Name Role Phone Shannan Vieyra MD Primary Care Provider Unavail able Encounter Details Date Type Department Care Team (Late st Contact Info) Description 06/14/2004 Results Only [facility] - Maple conversion [address] [place] [address] Angelo William MD Social History Tobacco Use [...] ABS Lymphs 2.16 1.09 - 3.30 K/cmm [facility] ABS Monocytes 0.37 0.1 - 0.8 K/cmm [facility] ABS Eosinophils 0.29 0.03 - 0.61 K/cmm [facility] ABS Basophils 0.02 0.01 - 0.11 K/cmm [facility] Type of Diff: Automated [facility] 06/14/2004 8:10 EDT 06/14/2004 9:12 EDT us Angelo William MD PACKAGES & DNA PROBE ORDERABLE S Final Result [facility] [address] [place] [address] * (ABNORMAL) HEMAGRAM AND DIFFERENTIAL (06/14/2004 8:10 EDT) WBC 6.33 4.0 - 12.4 K/cmm [facility] RBC 4.78 3.86 - 5.04 M/cmm [facility] Hemoglobin 13.4 11.6 - 15.2 gm/dl [facility] HCT 39.6 34.9 - 44.4 % [facility] MCV 83 81 - 98 fl [facility] MCH 28.1 26.7 - 33.3 pg [facility] MCHC 34.0 32.1 - 35.9 gm/dl [facility] PLT 166 141 - 320 K/cmm [facility] RDW-CV 15.4(H) 11.7 - 14.6 % [facility] 06/14/2004 8:10 EDT 06/14/2004 9:12 EDT us Angelo William MD PACKAGES & DNA PROBE ORDERABLE S Final Result Performing Organization Address [facility] Co de Phone Number [facility] [address] [place] [address] * HEMAGRAM AND DIFFERENTIAL (06/14/2004 8:10 EDT) [...] of Diff: Automated [facility] 06/14/2004 8:10 EDT 06/14/2004 9:12 EDT us Angelo William MD PACKAGES & DNA PROBE ORDERABLE S Final Result Performing Organization Address [facility] Co de Phone Number [facility] [address] [place] [address] * (ABNORMAL) HEMAGRAM AND DIFFERENTIAL (06/14/2004 8:10 EDT) WBC 6.33 4.0 - 12.4 K/cmm [facility] RBC 4.78 3.86 - 5.04 M/cmm [facility] Hemoglobin 13.4 11.6 - 15.2 gm/dl [facility] HCT 39.6 34.9 - 44.4 % [facility] MCV 83 81 - 98 fl [facility] MCH 28.1 26.7 - 33.3 pg [facility] MCHC 34.0 32.1 - 35.9 gm/dl [facility] PLT 166 141 - 320 K/cmm [facility] RDW-CV 15.4(H) 11.7 - 14.6 % [facility] 06/14/2004 8:10 EDT 06/14/2004 9:12 EDT us Angelo William MD PACKAGES & DNA PROBE ORDERABLE S Final Result [facility] [address] [place] [address] documented in this encounter Visit Diagnoses Not on filedocumented in this encounter Care Teams Bullet Assembly Press Operator Relationship Specialty Start Date End Date Shannan Vieyra MD PCP - General 04/08/09 03/15/19 documented as of this encounter
--- OUTSIDE RECORDS SUMMARY | 2024-08-23 23:34 | XMS_ITS | Encounter Summary ---
Author Organization [facility] Address [address] [place] [address] Care Team Providers Care Strap Sewer Name Role Phone Shannan Vieyra MD Primary Care Provider Unavail able Encounter Details Date Type Department Care Team (Late st Contact Info) Description 07/13/2004 Office Visit [facility] Cardiology - [address] [address] Pete Richey MD Discharge Disposition: Auto Discharge [...] AGALACTIAE) [facility] Report Status Final [id number] [facility] 07/13/2004 10:0 0 EDT 07/13/2004 15:35 EDT Richard Covarrubias MD MICROBIOLOGY - GENERAL ORDERABLES Final Result Performing Organization Address [facility] de Phone Number [facility] [address] [place] [address] * (ABNORMAL) URINE MICROSCOPIC (07/13/2004 10:00 EDT) [...] sample, less than 12 ml received. [facility] 07/13/2004 10:0 0 EDT 07/13/2004 15:35 EDT Richard Covarrubias MD URINALYSIS ORDERABLES Final Result Performing Organization Address [facility] de Phone Number [facility] [address] [place] [address] * (ABNORMAL) URINALYSIS (07/13/2004 10:00 EDT) Color, UA Yellow [facility] Clarity, UA Hazy [facility] Glucose, UA Norm NORM [facility] Bilirubin, UA Neg NEG [facility] Ketones, UA Neg NEG [facility] Specific [place], Urine 1.020 1.005 - 1.02 [facility] Blood, UA Trace(A) NEG [facility] pH, UA 6.0 5.0 - 9.0 [facility] Protein, UA Neg NEG [facility] Urobilinogen, UA Norm NORM mg/dL [facility] Nitrite, UA Neg NEG [facility] Leuk Esterase Mod(A) NEG [facility] 07/13/2004 10:0 0 EDT 07/13/2004 15:35 EDT us Richard Covarrubias MD URINALYSIS ORDERABLES Final Result Performing Organization Address City/State/[facility] Co de Phone Number [facility] [address] [place] [address] documented in this encounter Visit Diagnoses Not on filedocumented in this encounter Care Teams Strap Sewer Relationship Specialty Start Date End Date Shannan Vieyra MD PCP - General 04/08/09 03/15/19 documented as of this encounter
--- OUTSIDE RECORDS SUMMARY | 2024-08-23 23:34 | XMS_ITS | Encounter Summary ---
Author Organization [facility] Address [address] [place] [address] Care Team Providers Care Furniture Cleaner Name Role Phone Unavailable Primary Care Provider Unavailabl e Encounter Details Date Type Department Care Team (Late st Contact Info) Description 01/19/2005 16:47 EDT Hospital Encounter [facility] - [address] [address] Denice Martinez MD [address] [place] [address] [address] [place] [phone] Social History Tobacco Use Types Packs/Day Years Used Date Smoking Tobacco: Never Smokeless Tobacco: Never Alcohol Use Standard Drinks/Week Comments No 0 (1 standard drink = 0.6 oz pur e alcohol) [facility] Utilities Answer Date Recorded In the past 12 months has [facility] [employer], gas, oil, or water [email or web address] threatened to shut off services in your [...] <0.90 ? TEST PERFORMED OR REFERRED BY [facility] ? [address] ? [place] [address] ? Coal Bagger: ? Pawan Saunders M.D. ? [facility] Parvovirus IgM Ab 0.13Unit: index(Note) -- EXPECTED VALUES -- ? (Ref Range) <0.90 ? [facility] Interpretation (Note) Results suggest past infection. ? TEST PERFORMED OR REFERRED BY [facility] ? [address] ? [place] [address] ? Coal Bagger: ? Pawan Saunders M.D. ? [facility] 01/19/2005 16:4 9 EDT 01/19/2005 17:03 EDT us Denice Martinez MD IMMUNOLOGY AND SEROLOGY ELLEN LAL Final Result [facility] [address] [place] [address] documented in this encounter Visit Diagnoses Not on filedocumented in this encounter
--- OUTSIDE RECORDS SUMMARY | 2024-08-23 23:34 | XMS_ITS | Encounter Summary ---
Author Organization [facility] Address [address] [place] [address] Care Team Providers Care Fiberglass Boat Finisher Name Role Phone Unavailable Primary Care Provider Unavailabl e Encounter Details Date Type Department Care Team (Late st Contact Info) Description 04/21/2005 23:18 EDT Hospital Encounter [facility] - Other [address] [place] [address] Denice Martinez MD [address] [place] [address], [facility] [address] [place] [phone] Social History Tobacco Use Types Packs/Day Years Used Date Smoking Tobacco: Never Smokeless Tobacco: Never Alcohol Use Standard Drinks/Week Comments No 0 (1 standard drink = 0.6 oz pur e alcohol) [facility] Utilities Answer Date Recorded In the past 12 months has [employer], gas, oil, or water [email or web address] threatened to shut off services in your [...]
--- OUTSIDE RECORDS SUMMARY | 2024-08-23 23:34 | XMS_ITS | Encounter Summary ---
Author Organization [facility] Address [address] [place] [address] Care Team Providers Care Scheduling Assistant Name Role Phone Unavailable Primary Care Provider Unavailabl e Encounter Details Date Type Department Care Team (Latest Contact Info) Description 08/25/2005 15:23 EST Hospital Encounter [facility] - Other [address] [place] [address] Shannan Vieyra MD Discharge Disposition: Auto Discharge [...]
--- OUTSIDE RECORDS SUMMARY | 2024-08-23 23:34 | XMS_ITS | Encounter Summary ---
Author Organization [facility] Address [address] [place] [address] Care Team Providers Care Crematory Operator Name Role Phone Unavailable Primary Care Provider Unavailabl e Encounter Details Date Type Department Care Team (Latest Contact Info) Description 10/22/2004 18:14 EST Hospital Encounter [address] [address] True Ledesma MD [address] [place] [address] Discharge Disposition: Auto Discharge Social History Tobacco [...] Name Priority Date/Time Associated Diagnosis Comments GROUP HOME DETAILED Routine 12/24/2004 15:00 EST documented in this encounter Results * GROUP HOME DETAILED (12/24/2004 15:00 EST) Anatomical Region Laterality Modality Other 12/24/2004 15:0 0 EST Narrative 06/05/2009 11:06 EDT [id number],GRAVES DISEASE,DRUG EXPOSURE IST TRI [facility]. Procedure Note Efe Acuña MD - 06/05/2009 [id number],GRAVES DISEASE,DRUG EXPOSURE IST TRI Please refer to the separate [facility] report. True Ledesma MD [facility] GROUP HOME ORDERABLES Fin al Result documented in this encounter Visit Diagnoses Not on filedocumented in this encounter
--- OUTSIDE RECORDS SUMMARY | 2024-08-23 23:34 | XMS_ITS | Encounter Summary ---
Author Organization [facility] Address [address] [place] [address] Care Team Providers Care Field Reimbursement Manager Name Role Phone Shannan Vieyra MD Primary Care Provider Unavail able Encounter Details Date Type Department Care Team (Late st Contact Info) Description 06/29/2004 Results Only [facility] Family Medicine - [place] [address] [place], [place] [id number] Leida Cerda PA-C [address] [facility] [address] [place], [place] [address] Social History Tobacco Use Types Packs/Day Years [...] Results * (ABNORMAL) TSH (06/29/2004 16:08 EDT) TSH <0.02(L) 0.35 - 5.50 uIU/ml [facility] 06/29/2004 16:0 8 EDT 06/29/2004 19:10 EDT us Leida Cerda PA-C CHEMISTRY & BLOOD G ORDERABLES Final Result [facility] [address] [place] [address] * (ABNORMAL) THYROTROPIN RECEPTOR ANTIBODY (06/29/2004 16:08 EDT) Thyrotropin Receptor Ab 16Unit: % Index(Note) -- EXPECTED VALUES -- ? (Ref Range) <10 (Negative) ? 10-14 (Indeterminate) ? > or = 15 (Positive) ? TEST PERFORMED OR REFERRED BY [facility] ? [address] ? [place] [address] ? Crane Rigger: ? Pawan Saunders M.D. ?(H) [facility] 06/29/2004 16:0 8 EDT 06/29/2004 19:10 EDT us Leida Che Cerda PA-C CHEMISTRY & BLOOD G ORDERABLES Final Result [facility] [address] [place] [address] * (ABNORMAL) T3, TOTAL (06/29/2004 16:08 EDT) T3, Total 254(H) 60 - 181 ng/dl [facility] 06/29/2004 16:0 8 EDT 06/29/2004 19:10 EDT Leida Cerda PA-C CHEMISTRY & BLOOD G ORDERABLES Final Result Performing Organization Address [facility] Co de Phone Number [facility] [address] [place] [address] * (ABNORMAL) T4 FREE (06/29/2004 16:08 EDT) Free T4 2.1(H) 0.8 - 1.8 ng/dl [facility] 06/29/2004 16:0 8 EDT 06/29/2004 19:10 EDT Leida Cerda PA-C CHEMISTRY & BLOOD G ORDERABLES Final Result Performing Organization Address [facility] Co de Phone Number [facility] [address] [place] [address] * (ABNORMAL) HEMAGRAM AND DIFFERENTIAL (06/29/2004 16:08 EDT) WBC 4.80 4.0 - 12.4 K/cmm [facility] [...] LAB PLT 181 141 - 320 K/cmm [facility] RDW-CV 13.6 11.7 - 14.6 % [facility] % Neutrophils 41.8(L) 45.5 - 79.7 [...] [facility] Type of Diff: Automated [facility] 06/29/2004 16:0 8 EDT 06/29/2004 19:10 EDT Leida Cerda PA-C PACKAGES & DNA PROB E ORDERABLES Final Result Performing Organization Address City/[facility] Co de Phone Number [facility] [address] [place] [address] * AST (06/29/2004 16:08 EDT) AST 21 15 - 46 U/L [facility] 06/29/2004 16:0 8 EDT 06/29/2004 19:10 EDT Leida Cerda PA-C CHEMISTRY & BLOOD G ORDERABLES Final Result Performing Organization Address City/[facility]/ZIP Co de Phone Number [facility] [address] [place] [address] * ALT (06/29/2004 16:08 EDT) ALT 41 9 - 52 U/L [facility] 06/29/2004 16:0 8 EDT 06/29/2004 19:10 EDT us Leida Cerda PA-C CHEMISTRY & BLOOD G ORDERABLES Final Result Performing Organization Address City/State/[facility] Co de Phone Number [facility] [address] [place] [address] documented in this encounter Visit Diagnoses Not on filedocumented in this encounter Care Teams Field Reimbursement Manager Relationship Specialty Start Date End Date Shannan Vieyra MD PCP - General 04/08/09 03/15/19 documented as of this encounter
--- OUTSIDE RECORDS SUMMARY | 2024-08-23 23:34 | XMS_ITS | Encounter Summary ---
Author Organization [facility] Address [address] [place] [address] Care Team Providers Care Dumping Machine Operator Name Role Phone Shannan Vieyra MD Primary Care Provider Unavail able Encounter Details Date Type Department Care Team (Late st Contact Info) Description 10/14/2004 Results Only [facility] - Maple conversion [address] [place] [address] Toño Hernadez MD [address] [place] [address] Social History Tobacco Use Types Packs/Day Years [...] electronically signed by: ? SHAYE LYNN MD [facility] ? Report Date: ??10/22/2004 14:30 End of Report [facility] 10/14/2004 10/16/2004 us Toño Hernadez MD PATHOLOGY ORDERABLES Nellie l Result [facility] [address] [place] [address] documented in this encounter Visit Diagnoses Not on filedocumented in this encounter Care Teams Dumping Machine Operator Relationship Specialty Start Date End Date Shannan Vieyra MD PCP - General 04/08/09 03/15/19 documented as of this encounter
--- OUTSIDE RECORDS SUMMARY | 2024-08-23 23:34 | XMS_ITS | Encounter Summary ---
Author Organization [facility] Address [address] [place] [address] Care Team Providers Care Dry Wall Plasterer Name Role Phone Unavailable Primary Care Provider Unavailabl e Encounter Details Date Type Department Care Team (Late st Contact Info) Description 10/14/2004 23:36 EST Hospital Encounter [facility] - Other [address] [place] [address] True Ledesma MD [address] [place] [address] Social History Tobacco Use Types Packs/Day Years Used Date Smoking Tobacco: Never Smokeless Tobacco: Never Alcohol Use Standard Drinks/Week Comments No 0 (1 standard drink = 0.6 oz pur e alcohol) [facility] Utilities Answer Date Recorded In [...]
--- OUTSIDE RECORDS SUMMARY | 2024-08-23 23:34 | XMS_ITS | Encounter Summary ---
Author Organization [facility] Address [address] [place] [address] Care Team Providers Care Glazing Superintendent Name Role Phone Unavailable Primary Care Provider Unavailabl e Encounter Details Date Type Department Care Team (Late st Contact Info) Description 09/29/2005 15:30 EST Hospital Encounter [facility] - Other [address] [place] [address] Sita Dunn Social History Tobacco Use Types Packs/Day Years Used Date Smoking Tobacco: Never Smokeless Tobacco: Never Alcohol Use Standard Drinks/Week Comments No 0 (1 standard drink = 0.6 oz pur e alcohol) [facility] Utilities Answer Date Recorded In the past [...]
--- OUTSIDE RECORDS SUMMARY | 2024-08-23 23:34 | XMS_ITS | Encounter Summary ---
Author Organization [facility] Address [address] [place] [address] Care Team Providers Care Stock Clipper Name Role Phone Shannan Vieyra MD Primary Care Provider Unavail able Encounter Details Date Type Department Care Team (Late st Contact Info) Description 06/10/2005 Before PRISM Converted Visit (Maple) [facility] - Maple conversion [address] [place] [address] Germain Mason MD [address] [place] [address] [place] [phone] Social History Tobacco Use Types Packs/Day Years Used Date Smoking Tobacco: Never Assessed Comments Unknown Sex and Gender Information Value Date Recorded Sex Assigned at Not on file Legal Sex Female 18:04 EST Gender Identity Not on file Sexual Orientation Not on file documented as of this encounter Progress Notes * Celso, aGvin Public Affairs Director - 12/10/2009 1102 EST DIVISION OF ENDOCRINOLOGY PROGRESS/FOLLOWUP NOTE - 06/10/2005 SUBJECTIVE: Doris is a pleasant 25-year-old woman with a history of Gravesdisease. She has had a normal delivery four weeks ago. Her hyperthyroidism continued during her for which we switched her over from methimazole to PTU 150 mg three times a day. This is her first visit [facility]. She is not complaining of any [...] P - dd Job ID: Document ID: [id number] cc: documented in this encounter Plan of Treatment Not on file documented as of this encounter Visit Diagnoses Not on filedocumented in this encounter Care Teams Stock Clipper Relationship Specialty Start Date End Date Shannan Vieyra MD PCP - General 04/08/09 03/15/19 documented as of this encounter
--- OUTSIDE RECORDS SUMMARY | 2024-08-23 23:34 | XMS_ITS | Encounter Summary ---
Author Organization [facility] Address [address] [place] [address] Care Team Providers Care Employment Assistant Name Role Phone Shannan Vieyra MD Primary Care Provider Unavail able Encounter Details Date Type Department Care Team (Late st Contact Info) Description 10/12/2004 Office Visit [facility] - Maple conversion [address] [place] [address] Royal Saunders PA-C [address] [place] [address] Social History Tobacco Use Types Packs/Day Years Used Date Smoking Tobacco: Never Assessed Comments Unknown Sex and Gender Information Value Date Recorded Sex Assigned at Not on file Legal Sex Female 18:04 EST Gender Identity Not on file Sexual Orientation Not on file documented as of this encounter Progress Notes * Royal Sanuders PA - 12/12/2009 1520 EST Emergency Department [...] filedocumented in this encounter Care Teams Employment Assistant Relationship Specialty Start Date End Date Shannan Vieyra MD PCP - General 04/08/09 03/15/19 documented as of this encounter
--- OUTSIDE RECORDS SUMMARY | 2024-08-23 23:34 | XMS_ITS | Encounter Summary ---
Author Organization [facility] Address [address] [place] [address] Care Team Providers Care Leather Etcher Name Role Phone Shannan Vieyra MD Primary Care Provider Unavail able Encounter Details Date Type Department Care Team (Late st Contact Info) Description 06/16/2004 Results Only [facility] - Maple conversion [address] [place] [address] Angelo William MD Social History Tobacco Use [...] EDT Angelo William MD CHEMISTRY & BLOOD GAS ORDERABL ES Final Result Performing Organization Address [facility] de Phone Number [facility] [address] [place] [address] * CREATININE (06/16/2004 5:45 EDT) Creatinine 0.7 0.7 - 1.5 mg/dl [facility] 06/16/2004 5:45 EDT 06/16/2004 7:02 EDT Angelo William MD HISTORICAL LAB FOR SQ LOAD Fin al Result Performing Organization Address [facility] de Phone Number [facility] [address] [place] [address] * (ABNORMAL) BUN (06/16/2004 5:45 EDT) BUN 7(L) 10 - 26 mg/dl [facility] 06/16/2004 5:45 EDT 06/16/2004 7:02 EDT Angelo William MD CHEMISTRY & BLOOD GAS ORDERABL ES Final Result Performing Organization Address [facility] de Phone Number [facility] [address] [place] [address] * ELECTROLYTES (06/16/2004 5:45 EDT) Sodium 140 136 - 145 mEq/L [facility] Potassium 4.7 3.5 - 5.0 mEq/L [facility] Chloride 106 96 - 110 mEq/L [facility] CO2 26 24 - 32 mEq/L [facility] 06/16/2004 5:45 EDT 06/16/2004 7:02 EDT us Angelo William MD CHEMISTRY & BLOOD GAS ORDERABL ES Final Result Performing Organization Address [facility] de Phone Number [facility] [address] [place] [address] * CREATININE (06/16/2004 5:45 EDT) Creatinine 0.7 0.7 - 1.5 mg/dl [facility] 06/16/2004 5:45 EDT 06/16/2004 7:02 EDT us Angelo William MD HISTORICAL LAB FOR SQ LOAD Fin al Result Performing Organization Address [facility] de Phone Number [facility] [address] [place] [address] * (ABNORMAL) BUN (06/16/2004 5:45 EDT) BUN 7(L) 10 - 26 mg/dl [facility] 06/16/2004 5:45 EDT 06/16/2004 7:02 EDT us Angelo William MD CHEMISTRY & BLOOD GAS ORDERABL ES Final Result Performing Organization Address [facility] de Phone Number [facility] [address] [place] [address] documented in this encounter Visit Diagnoses Not on filedocumented in this encounter Care Teams Leather Etcher Relationship Specialty Start Date End Date Shannan Vieyra MD PCP - General 04/08/09 03/15/19 documented as of this encounter
--- OUTSIDE RECORDS SUMMARY | 2024-08-23 23:34 | XMS_ITS | Encounter Summary ---
Author Organization [facility] Address [address] [place] [address] Care Team Providers Care Rotary Rock Drilling Machine Operator Name Role Phone Shannan Vieyra MD Primary Care Provider Unavail able Encounter Details Date Type Department Care Team (Late st Contact Info) Description 06/10/2004 Office Visit [facility] - Maple conversion [address] [place] [address] Miguel Negron MD [address] [place] [address], Level 1 [place] [phone] Social History Tobacco Use Types Packs/Day Years [...] Old medical records reviewed. Disposition: Admitted to [facility]. Condition: stable. CLINICAL IMPRESSION Fever. Headache. [...] lowest position. Brakes of bed on. --17:34 Tata Adams Blood samples drawn by techper protocol and [...] culture; total amount drawn 3 mL. --19:05 Tata Ayoub (po fluids OK per Dr Negron.). --19:14 [...] given to patient and family. --22:18 Irina Klus, R.N. BP: 118 / 70 HR: 119 [...] mL absorbed). IV fluid started- #2 bag [id number] mL. Rate - 250 mL / hr. --01:16 Irina Hernández R.N. OUTPUT: x1 pt states large amt urine --01:16 Irina Hernández R.N. INTAKE: 1000 mL IV --01:16 Irina Hernández R.N. DISPOSITION / DISCHARGE Admitted to medicine. Transported via stretcher by [employer] with IV. Report was given (B4 staff). --01:20 Irina Hernández R.N. Admitted ([id number]). Transported via stretcher. --01:36 Ector Ferguson R.N. E.M.TAnay Ness.M.TEctor Lozano.M.T. Ector Valderrama R.N. Locked/Released at 06/11/2004 4:29 by Nara Malin R.N. documented in this encounter Plan of Treatment Not on file documented as of this encounter Visit Diagnoses Not on filedocumented in this encounter Care Teams Rotary Rock Drilling Machine Operator Relationship Specialty Start Date End Date Shannan Vieyra MD PCP - General 04/08/09 03/15/19 documented as of this encounter
--- OUTSIDE RECORDS SUMMARY | 2024-08-23 23:34 | XMS_ITS | Encounter Summary ---
Author Organization [facility] Address [address] [place] [address] Care Team Providers Care Water Trainer Name Role Phone Unavailable Primary Care Provider Unavailabl e Encounter Details Date Type Department Care Team (Late st Contact Info) Description 02/25/2005 13:43 EDT Hospital Encounter [address] [address] Jame Sanders MD [address] [place] [address], [address] [place] [phone] Discharge Disposition: Auto Discharge Social History Tobacco [...] Persistent cholelithiasis, similar to the previous study. /[facility] Narrative 06/09/2009 10:28 EDT ABD U/S, ??RUQ PAIN,HISTORY OF PYELONEPHRITIS ??R/O HYDRONEPHROSIS/MEHUL LITHIASIS. PT IS CURRENTLY .(MVP) ??RAMON TO FAX REQ [id number] RIGHT UPPER QUADRANT ULTRASOUND: 02/25/05 Scans of [...] the patient's . Procedure Note Riki Moyer, DO - 06/09/2009 ABD U/S, RUQ PAIN,HISTORY OF PYELONEPHRITIS R/O HYDRONEPHROSIS/MEHUL LITHIASIS. PT IS CURRENTLY .(MVP) RAMON TO FAX REQ [id number] RIGHT UPPER QUADRANT ULTRASOUND: 02/25/05 Scans of [...] Persistent cholelithiasis, similar to the previous study. [facility] us Jame Sanders MD IMG US ORDERABLES Final Re sult * BACTERIAL CULTURE, URINE (02/25/2005 13:45 EDT) Specimen Description Urine [facility] Result Less than 10,000 CFU/ml Mixed gram positive growth [facility] Report Status Final [id number] [facility] 02/25/2005 13:4 5 EDT 02/25/2005 13:47 EDT us Jame Sanders MD MICROBIOLOGY - GENERAL ORD ERABLES Final Result [facility] [address] [place] [address] * (ABNORMAL) TSH (02/25/2005 13:45 EDT) TSH <0.02(L) 0.35 - 5.50 uIU/ml [facility] 02/25/2005 13:4 5 EDT 02/25/2005 13:47 EDT Jame Sanders MD CHEMISTRY & BLOOD GAS ORDE RABBYRON Final Result Performing Organization Address City/[facility]/ZIP Co de Phone Number [facility] [address] [place] [address] * (ABNORMAL) T4 FREE (02/25/2005 13:45 EDT) Free T4 2.0(H) 0.8 - 1.8 ng/dl [facility] 02/25/2005 13:4 5 EDT 02/25/2005 13:47 EDT Jame Sanders MD CHEMISTRY & BLOOD GAS ORDE RABBYRON Final Result Performing Organization Address City/[facility]/ZIP Co de Phone Number [facility] [address] [place] [address] documented in this encounter Visit Diagnoses Not on filedocumented in this encounter
--- OUTSIDE RECORDS SUMMARY | 2024-08-23 23:34 | XMS_ITS | Encounter Summary ---
Author Organization [facility] Address [address] [place] [address] Care Team Providers Care Public Health Clinical Nurse Specialist Name Role Phone Unavailable Primary Care Provider Unavailabl e Encounter Details Date Type Department Care Team (Late st Contact Info) Description 03/29/2005 15:20 EDT Hospital Encounter [facility] - Maple conversion [address] [place] [address] Pete Richey MD Social History Tobacco Use Types Packs/Day Years Used Date Smoking Tobacco: Never Smokeless Tobacco: Never Alcohol Use Standard Drinks/Week Comments No 0 (1 standard drink = 0.6 oz pur e alcohol) [facility] Utilities Answer Date Recorded [...]
--- OUTSIDE RECORDS SUMMARY | 2024-08-23 23:34 | XMS_ITS | Encounter Summary ---
Author Organization [facility] Address [address] [place] [address] Care Team Providers Care Flying Ii Instructor Name Role Phone Unavailable Primary Care Provider Unavailabl e Encounter Details Date Type Department Care Team (Late st Contact Info) Description 09/23/2005 15:12 EST Hospital Encounter [facility] - Maple conversion [address] [place] [address] Pete Richey MD Social History Tobacco Use [...]
--- OUTSIDE RECORDS SUMMARY | 2024-08-23 23:34 | XMS_ITS | Encounter Summary ---
Author Organization [facility] Address [address] [place] [address] Care Team Providers Care It Infrastructure Project Manager Name Role Phone Unavailable Primary Care Provider Unavailabl e Encounter Details Date Type Department Care Team (Latest Contact Info) Description 06/06/2004 19:55 EDT - 06/07/2004 11:59 EDT Hospital Encounter [facility] [place] [address] Emergency, Default, MD Discharge Disposition: Home or [...] upper quadrant ultrasound of 06/06/04. FINDINGS: Preliminary plumbing designer KUB shows an unremarkable bowel-gas pattern. The [...] upper quadrant ultrasound of 06/06/04. FINDINGS: Preliminary plumbing designer KUB shows an unremarkable bowel-gas pattern. The [...] 3) Mild to moderate postvoid residual. / us Angelo William MD [facility] ORDERAB LES Final Result * CHEST PA AND LATERAL (06/06/2004 23:57 EDT) Anatomical Region Laterality Modality Other 06/06/2004 23:5 7 EDT Impressions 06/09/2009 16:10 EDT IMPRESSION: Negative chest. /[facility] Narrative 06/09/2009 16:10 EDT FEVER INFILTRATE CHEST 2 VIEWS PA and lateral views of the chest are essentially normal. There is no evidence of pneumonia. Procedure Note Angelo Dwyer MD - 06/09/2009 FEVER INFILTRATE CHEST 2 VIEWS PA and lateral views of the chest are essentially normal. There is no evidence of pneumonia. IMPRESSION IMPRESSION: Negative chest. /[facility] Mitzi ARAUJO [facility] ORDERA BLES Final Result * RAD US ABDOMEN ONE ORGAN/QUADRANT (06/06/2004 [...] the examination. D 06/07/04 T 06/10/04 /emanuel us Mitzi ARAUJO IMG US ORDERABLES Final Resul t documented in this encounter Visit Diagnoses Not on filedocumented in this encounter
--- OUTSIDE RECORDS SUMMARY | 2024-08-23 23:34 | XMS_ITS | Encounter Summary ---
Author Organization [facility] Address [address] [place] [address] Care Team Providers Care Hadoop Analyst Name Role Phone Unavailable Primary Care Provider Unavailabl e Encounter Details Date Type Department Care Team (Latest Contact Info) Description 10/12/2004 2:29 EST - 10/12/2004 11:59 EST Hospital Encounter [facility] [place] [address] Emergency, Default, MD Discharge Disposition: Home or [...] Result No Neisseria gonorrhoeae DNA detected by residence manager mediated amplification. [facility] Report Status Final [id number] [facility] Specimen Description Cervix [facility] 10/14/2004 11:0 9 EST 10/15/2004 11:09 EST True Ledesma MD MICROBIOLOGY - GENERAL OR DERABLES Final Result Performing Organization Address [facility] Co de Phone Number [facility] [address] [place] [address] * CHLAMYDIA TRACHOMATIS AMPLIFIED PROBE (10/14/2004 11:09 EST) Specimen Description Cervix [facility] Result No Chlamydia trachomatis DNA detected by residence manager mediated amplification. [facility] Report Status Final [id number] [facility] 10/14/2004 11:0 9 EST 10/15/2004 11:09 EST True Ledesma MD MICROBIOLOGY - GENERAL OR DERABLES Final Result Performing Organization Address [facility] de Phone Number [facility] [address] [place] [address] documented in this encounter Visit Diagnoses Not on filedocumented in this encounter
--- OUTSIDE RECORDS SUMMARY | 2024-08-23 23:34 | XMS_ITS | Encounter Summary ---
Author Organization [facility] Address [address] [place] [address] Care Team Providers Care Tool Salvage Worker Name Role Phone Shannan Vieyra MD Primary Care Provider Unavail able Encounter Details Date Type Department Care Team (Late st Contact Info) Description 06/10/2004 Before PRISM Converted Visit (Maple) [facility] - Maple conversion [address] [place] [address] Paradise Padilla MD [address] [place] [address] Social History Tobacco Use Types Packs/Day Years [...] on filedocumented in this encounter Care Teams Tool Salvage Worker Relationship Specialty Start Date End Date Shannan Vieyra MD PCP - General 04/08/09 03/15/19 documented as of this encounter
--- OUTSIDE RECORDS SUMMARY | 2024-08-23 23:34 | XMS_ITS | Encounter Summary ---
Author Organization [facility] Address [address] [place] [address] Care Team Providers Care Numerical Control Drill Press Operator Name Role Phone Unavailable Primary Care Provider Unavailabl e Encounter Details Date Type Department Care Team (Late st Contact Info) Description 05/14/2005 16:35 EDT - 05/19/2005 11:59 EDT Hospital Encounter [facility] Mother/Baby Unit [address] [place] [address] Denice Martinez MD [address] [facility], [facility] [address] [place] [address] True Ledesma MD [address] [place] [address] Discharge Disposition: Home-Health Care Svc Social History [...] PROCEDURE REPORT PT TYPE: IP PT LOC: [id number] SERVICE DATE: 05/15/2005 SURGEON: Jaden Mcneil MDJoanna W Hatfield, MDKimberly Juan, MD PLANT OPERATIONS VICE PRESIDENT: Hua Kovacs MD PREOPERATIVE DIAGNOSIS: Term intrauterine [...] patient for a section. FINDINGS: Liveborn female infant in cephalic presentation with Apgars of 9 [...] The cord was clamped and cut. The infant was handed off to the pediatricians. The [...] Kovacs MD A - jaw Job ID: [id number] Document ID: [id number] cc: MD Shannan King MD Joanna W [...] EDT True Ledesma MD HEMATOLOGY & PF4 ORDERABL ES Final Result Performing Organization Address [facility] de Phone Number [facility] [address] [place] [address] * (ABNORMAL) HEMAGRAM (05/16/2005 12:40 EDT) WBC 10.72 4.0 - 12.4 K/cmm [facility] RBC 2.62(L) 3.86 - 5.04 M/cmm [facility] Hemoglobin 6.8(LL) 11.6 - 15.2 gm/dl [facility] HCT 20.6(LL) 34.9 - 44.4 % [facility] MCV 79(L) 81 - 98 fl [facility] MCH 26.0(L) 26.7 - 33.3 pg [facility] MCHC 33.0 32.1 - 35.9 gm/dl [facility] PLT 161 141 - 320 K/cmm [facility] RDW-CV 15.0(H) 11.7 - 14.6 % [facility] 05/16/2005 12:4 0 EDT 05/16/2005 12:50 EDT True Ledesma MD HEMATOLOGY & PF4 ORDERABL ES Final Result Performing Organization Address [facility] Co de Phone Number [facility] [address] [place] [address] * (ABNORMAL) HEMAGRAM (05/16/2005 8:15 EDT) WBC 10.27 4.0 - 12.4 K/cmm [facility] RBC 2.58(L) 3.86 - 5.04 M/cmm [facility] Hemoglobin 6.8(LL) 11.6 - 15.2 gm/dl [facility] HCT 20.3(LL) 34.9 - 44.4 % [facility] MCV 79(L) 81 - 98 fl [facility] MCH 26.4(L) 26.7 - 33.3 pg [facility] MCHC 33.5 32.1 - 35.9 gm/dl [facility] PLT 156 141 - 320 K/cmm [facility] RDW-CV 15.0(H) 11.7 - 14.6 % [facility] 05/16/2005 8:15 EDT 05/16/2005 9:13 EDT True Ledesma MD HEMATOLOGY & PF4 ORDERABL ES Final Result Performing Organization Address [facility] de Phone Number [facility] [address] [place] [address] * UA REFLEX (05/14/2005 19:00 EDT) Pathologist [facility] UA Billing Microscopic not indicated. [facility] 05/14/2005 19:0 0 EDT 05/14/2005 19:06 EDT True Ledesma MD URINALYSIS ORDERABLES Fin al Result Performing Organization Address [facility] [place] [address] * URINALYSIS (05/14/2005 19:00 EDT) Color, UA Yellow [facility] Clarity, UA Clear [facility] Glucose, UA Norm NORM [facility] Bilirubin, UA Neg NEG [facility] Ketones, UA Neg NEG [facility] Specific [place], Urine 1.015 1.005 - 1.02 [facility] Blood, UA Neg NEG [facility] pH, UA 7.0 5.0 - 9.0 [facility] Protein, UA Neg NEG [facility] Urobilinogen, UA Norm NORM mg/dL [facility] Nitrite, UA Neg NEG [facility] Leuk Esterase Neg NEG [facility] 05/14/2005 19:0 0 EDT 05/14/2005 19:06 EDT us True Ledesma MD URINALYSIS ORDERABLES Fin al Result Performing Organization Address [facility] de Phone Number [facility] [address] [place] [address] * CULTURE IF UA POSITIVE (05/14/2005 19:00 EDT) Culture if Indicated Culture not indicated by urinalysis results. [facility] 05/14/2005 19:0 0 EDT 05/14/2005 19:06 EDT True Ledesma MD MICROBIOLOGY - GENERAL OR DERABLES Final Result Performing Organization Address [facility] de Phone Number [facility] [address] [place] [address] * URIC ACID (05/14/2005 18:00 EDT) Uric Acid 6.9 2.2 - 7.7 mg/dl [facility] Comment:Slight hemolysis 05/14/2005 18:0 0 EDT 05/14/2005 18:24 EDT True Ledesma MD CHEMISTRY & BLOOD GAS ORD ERABLES Final Result Performing Organization Address [facility] de Phone Number [facility] [address] [place] [address] * FIBRINOGEN (05/14/2005 18:00 EDT) Fibrinogen 355 220 - 410 mg/dl [facility] Comment:Moderately lipemic 05/14/2005 18:0 0 EDT 05/14/2005 18:24 EDT us True Ledesma MD HEMATOLOGY & PF4 ORDERABL ES Final Result Performing Organization Address [facility] de Phone Number [facility] [address] [place] [address] * (ABNORMAL) CREATININE (05/14/2005 18:00 EDT) Creatinine 0.5(L) 0.7 - 1.5 mg/dl [facility] Comment:Slight hemolysis 05/14/2005 18:0 0 EDT 05/14/2005 18:24 EDT True Ledesma MD HISTORICAL LAB FOR SQ KYLAH D Final Result [facility] [address] [place] [address] * (ABNORMAL) HEMAGRAM (05/14/2005 18:00 EDT) WBC [...] LAB MCHC 33.7 32.1 - 35.9 gm/dl [facility] PLT 158 141 - 320 K/cmm [facility] RDW-CV 14.9(H) 11.7 - 14.6 % [facility] 05/14/2005 18:0 0 EDT 05/14/2005 18:24 EDT True Ledesma MD HEMATOLOGY & PF4 ORDERABL ES Final Result Performing Organization Address [facility]/ZIP Co de Phone Number [facility] [address] [place] [address] * BUN (05/14/2005 18:00 EDT) BUN 11 10 - 26 mg/dl [facility] Comment:Slight hemolysis 05/14/2005 18:0 0 EDT 05/14/2005 18:24 EDT True Ledesma MD CHEMISTRY & BLOOD GAS ORD ERABLES Final Result Performing Organization Address [facility] Co de Phone Number [facility] [address] [place] [address] * AST (05/14/2005 18:00 EDT) AST 38 15 - 46 U/L [facility] Comment:Slight hemolysis 05/14/2005 18:0 0 EDT 05/14/2005 18:24 EDT us True Ledesma MD CHEMISTRY & BLOOD GAS ORD ERABLES Final Result Performing Organization Address [facility] de Phone Number [facility] [address] [place] [address] * ALT (05/14/2005 18:00 EDT) ALT 13 9 - 52 U/L [facility] Comment:Slight hemolysis 05/14/2005 18:0 0 EDT 05/14/2005 18:24 EDT True Ledesma MD CHEMISTRY & BLOOD GAS ORD ERABLES Final Result Performing Organization Address [facility] de Phone Number [facility] [address] [place] [address] documented in this encounter Visit Diagnoses Not on filedocumented in this encounter
--- OUTSIDE RECORDS SUMMARY | 2024-08-23 23:34 | XMS_ITS | Encounter Summary ---
Author Organization [facility] Address [address] [place] [address] Care Team Providers Care Flame Cutter Name Role Phone Shannan Vieyra MD Primary Care Provider Unavail able Encounter Details Date Type Department Care Team (Late st Contact Info) Description 06/12/2004 Results Only [facility] - Maple conversion [address] [place] [address] Angelo William MD Social History Tobacco Use [...] Eosinophils 0.21 0.03 - 0.61 K/cmm [facility] ABS Basophils 0.03 0.01 - 0.11 K/cmm [facility] Type of Diff: Automated [facility] 06/12/2004 7:55 EDT 06/12/2004 7:57 EDT us Angelo William MD PACKAGES & DNA PROBE ORDERABLE S Final Result [facility] [address] [place] [address] * (ABNORMAL) HEMAGRAM AND DIFFERENTIAL (06/12/2004 7:55 EDT) WBC 6.00 4.0 - 12.4 K/cmm [facility] [...] LAB PLT 202 141 - 320 K/cmm [facility] RDW-CV 15.8(H) 11.7 - 14.6 % [facility] 06/12/2004 7:55 EDT 06/12/2004 7:57 EDT us Angelo William MD PACKAGES & DNA PROBE ORDERABLE S Final Result Performing Organization Address [facility] Co de Phone Number [facility] [address] [place] [address] * (ABNORMAL) HEMAGRAM AND DIFFERENTIAL (06/12/2004 7:55 [...] LAB 06/12/2004 7:55 EDT 06/12/2004 7:57 EDT us Angelo William MD PACKAGES & DNA PROBE ORDERABLE S Final Result Performing Organization Address City/[facility] Co de Phone Number [facility] [address] [place] [address] * (ABNORMAL) HEMAGRAM AND DIFFERENTIAL (06/12/2004 7:55 EDT) WBC 6.00 4.0 - 12.4 K/cmm [facility] RBC 4.80 3.86 - 5.04 M/cmm [facility] Hemoglobin 13.5 11.6 - 15.2 gm/dl [facility] HCT 39.1 34.9 - 44.4 % [facility] MCV 81 81 - 98 fl [facility] MCH 28.1 26.7 - 33.3 pg [facility] MCHC 34.5 32.1 - 35.9 gm/dl [facility] PLT 202 141 - 320 K/cmm [facility] RDW-CV 15.8(H) 11.7 - 14.6 % [facility] 06/12/2004 7:55 EDT 06/12/2004 7:57 EDT us Angelo William MD PACKAGES & DNA PROBE ORDERABLE S Final Result [facility] [address] [place] [address] documented in this encounter Visit Diagnoses Not on filedocumented in this encounter Care Teams Flame Cutter Relationship Specialty Start Date End Date Shannan Vieyra MD PCP - General 04/08/09 03/15/19 documented as of this encounter
--- OUTSIDE RECORDS SUMMARY | 2024-08-23 23:34 | XMS_ITS | Encounter Summary ---
Author Organization [facility] Address [address] [place] [address] Care Team Providers Care Ships Equipment Engineer Name Role Phone Unavailable Primary Care Provider Unavailabl e Encounter Details Date Type Department Care Team (Late st Contact Info) Description 02/15/2005 18:16 EDT Hospital Encounter [address] [address] Denice Martinez MD [address] [place] [address], [address] [place] [phone] Social History Tobacco Use Types Packs/Day Years Used Date Smoking Tobacco: Never Smokeless Tobacco: Never Alcohol Use Standard Drinks/Week Comments No 0 (1 standard drink = 0.6 oz pur e alcohol) [facility] Utilities Answer Date Recorded In the past 12 months has [employer], gas, oil, or water [employer] threatened to shut off services in your [...] 02/15/2005 23:13 EDT Denice Martinez MD URINALYSIS ORDERABLES Final Result [facility] [address] [place] [address] * URINE INFORMATION (02/15/2005 23:13 EDT) Period 25 hrs [facility] Specimen Volume 2025 mls [facility] 02/15/2005 23:1 3 EDT 02/15/2005 23:13 EDT us Denice Martinez MD URINALYSIS ORDERABLES Final Result Performing Organization Address [facility] Co de Phone Number [facility] [address] [place] [address] * (ABNORMAL) CREATININE CLEARANCE (02/15/2005 23:13 EDT) Creatinine Clearance 168.8(H) 87 - 107 ml/min [facility] Creatinine, Urn [place] 50.0 mg/dl [facility] 02/15/2005 23:1 3 EDT 02/15/2005 23:13 EDT us Denice Martinez MD URINALYSIS ORDERABLES Final Result Performing Organization Address City/[facility] Co de Phone Number [facility] [address] [place] [address] documented in this encounter Visit Diagnoses Not on filedocumented in this encounter
--- OUTSIDE RECORDS SUMMARY | 2024-08-23 23:34 | XMS_ITS | Encounter Summary ---
Author Organization [facility] Address [address] [place] [address] Care Team Providers Care Tierce Filler Name Role Phone Unavailable Primary Care Provider Unavailabl e Encounter Details Date Type Department Care Team (Late st Contact Info) Description 02/10/2005 14:48 EDT Hospital Encounter [address] [address] Denice Martinez MD [address] [place] [address], [address] [place] [phone] Social History Tobacco Use Types Packs/Day Years Used Date Smoking Tobacco: Never Smokeless Tobacco: Never Alcohol Use Standard Drinks/Week Comments No 0 (1 standard drink = 0.6 oz pur e alcohol) [facility] Utilities Answer Date Recorded In the past 12 months has [employer], gas, oil, or water [employer] threatened to shut off services in your [...] Acid 3.8 2.2 - 7.7 mg/dl [facility] Comment:Slight hemolysis 02/10/2005 14:5 9 EDT 02/10/2005 15:01 EDT Denice Martinez MD CHEMISTRY & BLOOD GAS ORDERA BLES Final Result Performing Organization Address [facility] de Phone Number [facility] [address] [place] [address] * (ABNORMAL) CREATININE (02/10/2005 14:59 EDT) Pathologist [facility] Creatinine 0.4(L) 0.7 - 1.5 mg/dl [facility] Comment:Slight hemolysis 02/10/2005 14:5 9 EDT 02/10/2005 15:01 EDT Denice Martinez MD HISTORICAL LAB FOR SQ LOAD F inal Result Performing Organization Address [facility] de Phone Number [facility] [address] [place] [address] * (ABNORMAL) HEMAGRAM (02/10/2005 14:59 EDT) Pathologist [facility] WBC 8.38 4.0 - 12.4 K/cmm [facility] [...] LAB PLT 221 141 - 320 K/cmm [facility] RDW-CV 13.9 11.7 - 14.6 % [facility] 02/10/2005 14:5 9 EDT 02/10/2005 15:01 EDT Denice Martinez MD HEMATOLOGY & PF4 ORDERABLES Final Result [facility] [address] [place] [address] * BUN (02/10/2005 14:59 EDT) BUN 12 10 - 26 mg/dl [facility] Comment:Slight hemolysis 02/10/2005 14:5 9 EDT 02/10/2005 15:01 EDT us Denice Martinez MD CHEMISTRY & BLOOD GAS ORDERA BLES Final Result Performing Organization Address [facility]/ZIP Co de Phone Number [facility] [address] [place] [address] * AST (02/10/2005 14:59 EDT) AST 25 15 - 46 U/L [facility] Comment:Slight hemolysis 02/10/2005 14:5 9 EDT 02/10/2005 15:01 EDT us Denice Martinez MD CHEMISTRY & BLOOD GAS ORDERA BLES Final Result Performing Organization Address [facility] Co de Phone Number [facility] [address] [place] [address] * ALT (02/10/2005 14:59 EDT) ALT 13 9 - 52 U/L [facility] Comment:Slight hemolysis 02/10/2005 14:5 9 EDT 02/10/2005 15:01 EDT us Denice Martinez MD CHEMISTRY & BLOOD GAS ORDERA BLES Final Result Performing Organization Address [facility] Co de Phone Number [facility] [address] [place] [address] documented in this encounter Visit Diagnoses Not on filedocumented in this encounter
--- OUTSIDE RECORDS SUMMARY | 2024-08-23 23:34 | XMS_ITS | Encounter Summary ---
Author Organization [facility] Address [address] [place] [address] Care Team Providers Care Technical Publications Manager Name Role Phone Shannan Vieyra MD Primary Care Provider Unavail Leida Jackson PA-C Primary Care Provi melvin Comfort Zelaya NP Primary Care Provider [phone] Encounter Details Date Type Department Care Team (Late st Contact Info) Description 06/10/2004 Before PRISM Converted Visit (Maple) [facility] - Maple conversion [address] [place] [address] Paradise Padilla MD [address] [place] [address] Social History Tobacco Use Types Packs/Day Years [...] filedocumented in this encounter Care Teams Technical Publications Manager Relationship Specialty Start Date End Date Shannan Vieyra MD PCP - General 04/08/09 03/15/19 Leida Cerda PA-C PCP - General 03/16/19 03/07/22 Comfort Zelaya NP [address] [place] [address] PCP - General Family Medicine - Primary Care 03/08/22 documented as of this encounter
--- OUTSIDE RECORDS SUMMARY | 2024-08-23 23:34 | XMS_ITS | Encounter Summary ---
Author Organization [facility] Address [address] [place] [address] Care Team Providers Care Tack Cutter Name Role Phone Shannan Vieyra MD Primary Care Provider Leida Robledo PA-C Primary Care Provi melvin Comfort Zelaya NP Primary Care Provider [phone] Encounter Details Date Type Department Care Team (Late st Contact Info) Description 06/10/2004 Before PRISM Converted Visit (Maple) [facility] - Maple conversion [address] [place] [address] Paradise Padilla MD [address] [place] [address] Social History Tobacco Use Types Packs/Day Years [...] growth [facility] Report Status Final [id number] [facility] 06/10/2004 20:3 0 EDT 06/10/2004 20:34 EDT us Default Emergency MICROBIOLOGY - GENERAL ELLEN LAL Final Result [facility] [address] [place] [address] * HOLD (06/10/2004 20:30 EDT) Hold Fluid [facility] 06/10/2004 20:3 0 EDT 06/10/2004 20:31 EDT us Default Emergency MD CHEMISTRY & BLOOD GAS ORDER ENDY Final Result Performing Organization Address [facility] Co de Phone Number [facility] [address] [place] [address] * (ABNORMAL) FLUID DIFFERENTIAL (06/10/2004 20:30 EDT) Lymphocyte, CSF 72 40 - 80 % [facility] [place]/Macro, CSF 5(L) 15 - 45 % [facility] Eosinophil, CSF 23 % [facility] 06/10/2004 20:3 0 EDT 06/10/2004 20:31 EDT us Default Emergency GEN LAB UNIT COLLECT ORDERA BLES Final Result Performing Organization Address [facility] de Phone Number [facility] [address] [place] [address] * (ABNORMAL) TOTAL PROTEIN, CSF (06/10/2004 20:30 EDT) Total Protein, CSF 108(H) 15 - 60 mg/dl [facility] 06/10/2004 20:3 0 EDT 06/10/2004 20:31 EDT us Default Emergency MD GEN LAB UNIT COLLECT ORDERA BLES Final Result Performing Organization Address [facility] de Phone Number [facility] [address] [place] [address] * GLUCOSE CSF (06/10/2004 20:30 EDT) Glucose, CSF 38 mg/dl [facility] Comment: Ref Range=60-80% of plasma glucose result 06/10/2004 20:3 0 EDT 06/10/2004 20:31 EDT us Default Emergency GEN LAB UNIT COLLECT ORDERA BLES Final Result Performing Organization Address [facility] Co de Phone Number [facility] [address] [place] [address] * (ABNORMAL) CELL COUNT,CSF (06/10/2004 20:30 EDT) RBC, CSF 2 /cmm [facility] Nucleated Cells 256(H) 0 - 5 /cmm [facility] Total Vol. 4.0 ml [facility] Tube Cntd. 4 [facility] Tube Vol. 1.0 ml [facility] CSF Comment Clear and Colorless [facility] 06/10/2004 20:3 0 EDT 06/10/2004 20:31 EDT us Default Emergency GEN LAB UNIT COLLECT ORDERA BLES Final Result Performing Organization Address [facility] Co de Phone Number [facility] [address] [place] [address] * BACTERIAL CULTURE, BLOOD (06/10/2004 19:00 EDT) Pathologist [facility] Specimen Description Blood Left Forearm Pediatric bottle received [facility] Result Volume of blood collected may not be adequate for detection of bacteremia/se pticemia. No growth [facility] Report Status Final [id number] [facility] 06/10/2004 19:0 0 EDT 06/10/2004 19:13 EDT us Default Emergency MICROBIOLOGY - GENERAL ORDE RABBYRON Final Result Performing Organization Address [facility] Co de Phone Number [facility] [address] [place] [address] * GLUCOSE, SERUM (06/10/2004 18:20 EDT) Glucose, Serum 99 70 - 110 mg/dl [facility] 06/10/2004 18:2 0 EDT 06/10/2004 18:50 EDT us Default Emergency CHEMISTRY & BLOOD GAS ORDER ENDY Final Result Performing Organization Address [facility] Co de Phone Number [facility] [address] [place] [address] * ELECTROLYTES (06/10/2004 18:20 EDT) Sodium 140 136 - 145 mEq/L [facility] Potassium 3.9 3.5 - 5.0 mEq/L [facility] Chloride 104 96 - 110 mEq/L [facility] CO2 25 24 - 32 mEq/L [facility] 06/10/2004 18:2 0 EDT 06/10/2004 18:50 EDT us Default Emergency MD CHEMISTRY & BLOOD GAS ORDER ENDY Final Result Performing Organization Address [facility] de Phone Number [facility] [address] [place] [address] * HOLD (06/10/2004 18:20 EDT) Hold Sample for coagulation will be discarded after 4 hours [facility] 06/10/2004 18:2 0 EDT 06/10/2004 18:50 EDT us Default Emergency MD CHEMISTRY & BLOOD GAS ORDER ENDY Final Result Performing Organization Address [facility] de Phone Number [facility] [address] [place] [address] * CREATININE (06/10/2004 18:20 EDT) Creatinine 0.8 0.7 - 1.5 mg/dl [facility] 06/10/2004 18:2 0 EDT 06/10/2004 18:50 EDT us Default Emergency HISTORICAL LAB FOR SQ LOAD Final Result Performing Organization Address [facility] de Phone Number [facility] [address] [place] [address] * (ABNORMAL) HEMAGRAM AND DIFFERENTIAL (06/10/2004 18:20 [...] LAB Neutrophils 34.0(L) 45.5 - 79.7 % [facility] Lymphocytes 47.0(H) 15.0 - 46.8 % [...] K/cmm [facility] RBC Morphology Normal [facility] Type of Diff: Manual [facility] 06/10/2004 18:2 0 EDT 06/10/2004 18:50 EDT us Default Emergency PACKAGES & DNA PROBE ORDERA BLES Final Result [facility] [address] [place] [address] * BUN (06/10/2004 18:20 EDT) BUN 11 10 - 26 mg/dl [facility] 06/10/2004 18:2 0 EDT 06/10/2004 18:50 EDT us Default Emergency CHEMISTRY & BLOOD GAS ORDER ENDY Final Result [facility] [address] [place] [address] documented in this encounter Visit Diagnoses Not on filedocumented in this encounter Care Teams Tack Cutter Relationship Specialty Start Date End Date Shannan Vieyra MD PCP - General 04/08/09 03/15/19 Leida Cerda PA-C PCP - General 03/16/19 03/07/22 Comfort Zelaya NP [address] [place] [phone] PCP - General Family Medicine - Primary Care 03/08/22 documented as of this encounter
--- OUTSIDE RECORDS SUMMARY | 2024-08-23 23:34 | XMS_ITS | Encounter Summary ---
Author Organization [facility] Address [address] [place] [address] Care Team Providers Care Welfare Project Manager Name Role Phone Unavailable Primary Care Provider Unavailabl e Encounter Details Date Type Department Care Team (Late st Contact Info) Description 07/14/2004 12:03 EDT Hospital Encounter [facility] - Maple conversion [address] [place] [address] Leida Cerda PA-C [address] [place] [address] [address] [place], [place] [address] Social History Tobacco Use Types Packs/Day Years Used Date Smoking Tobacco: Never Smokeless Tobacco: Never Alcohol Use Standard Drinks/Week Comments No 0 (1 standard drink = 0.6 oz pur e alcohol) [facility] Utilities Answer Date Recorded In the [...]
--- OUTSIDE RECORDS SUMMARY | 2024-08-23 23:34 | XMS_ITS | Encounter Summary ---
Author Organization [facility] Address [address] [place] [address] Care Team Providers Care Dye Colorist Formulator Name Role Phone Unavailable Primary Care Provider Unavailabl e Encounter Details Date Type Department Care Team (Late st Contact Info) Description 06/29/2004 9:37 EDT Hospital Encounter [facility] - Other [address] [place] [address] Leida Cerda PA-C [address] [place] [address] [address] [place] [address] Social History Tobacco Use Types Packs/Day Years Used Date Smoking Tobacco: Never Smokeless Tobacco: Never Alcohol Use Standard Drinks/Week Comments No 0 (1 standard drink = 0.6 oz pur e alcohol) [facility] Utilities Answer Date Recorded In the past 12 months has [employer], gas, oil, or water company threatened [...]
--- OUTSIDE RECORDS SUMMARY | 2024-08-23 23:34 | XMS_ITS | Encounter Summary ---
Author Organization [facility] Address [address] [place] [address] Care Team Providers Care Doorshaker Name Role Phone Shannan Vieyra MD Primary Care Provider Unavail Leida Jackson PA-C Primary Care Provi melvin Comfort Zelaya NP Primary Care Provider [phone] Encounter Details Date Type Department Care Team (Late st Contact Info) Description 06/10/2004 Before PRISM Converted Visit (Maple) [facility] - Maple conversion [address] [place] [address] Paradise Padilla MD [address] [place] [address] Social History Tobacco Use Types Packs/Day Years [...] on filedocumented in this encounter Care Teams Doorshaker Relationship Specialty Start Date End Date Shannan Vieyra MD PCP - General 04/08/09 03/15/19 Leida Cerda PA-C PCP - General 03/16/19 03/07/22 Comfort Zelaya NP [address] [place] [address] PCP - General Family Medicine - Primary Care 03/08/22 documented as of this encounter
--- OUTSIDE RECORDS SUMMARY | 2024-08-23 23:34 | XMS_ITS | Encounter Summary ---
Author Organization [facility] Address [address] [place] [address] Care Team Providers Care Butcher Or Smallgoods Maker Name Role Phone Unavailable Primary Care Provider Unavailabl e Encounter Details Date Type Department Care Team (Late st Contact Info) Description 01/06/2005 10:52 EST Hospital Encounter [facility] - S [address] [address] Denice Martinez MD [address] [place] [address] [address] [place] [phone] Social History Tobacco Use Types Packs/Day Years Used Date Smoking Tobacco: Never Smokeless Tobacco: Never Alcohol Use Standard Drinks/Week Comments No 0 (1 standard drink = 0.6 oz pur e alcohol) [facility] Utilities Answer Date Recorded In the past 12 months has [facility] [employer], gas, oil, or water [employer] threatened to shut off services in your [...] 01/06/2005 10:5 5 EST 01/06/2005 10:56 EST us Denice Martinez MD CHEMISTRY & BLOOD GAS ORDERA BLES Final Result [facility] [address] [place] [address] * (ABNORMAL) T4 FREE (01/06/2005 10:55 EST) Free T4 2.2(H) 0.8 - 1.8 ng/dl [facility] 01/06/2005 10:5 5 EST 01/06/2005 10:56 EST us Denice Martinez MD CHEMISTRY & BLOOD GAS ORDERA BLES Final Result [facility] [address] [place] [address] documented in this encounter Visit Diagnoses Not on filedocumented in this encounter
--- OUTSIDE RECORDS SUMMARY | 2024-08-23 23:34 | XMS_ITS | Encounter Summary ---
Author Organization [facility] Address [address] [place] [address] Care Team Providers Care House Principal Name Role Phone Unavailable Primary Care Provider Unavailabl e Encounter Details Date Type Department Care Team (Late st Contact Info) Description 06/29/2005 9:42 EDT Hospital Encounter [facility] - Other [address] [place] [address] Denice Martinez MD [address] [place] [address], [facility] [address] [place] [phone] Social History Tobacco Use Types Packs/Day Years Used Date Smoking Tobacco: Never Smokeless Tobacco: Never Alcohol Use Standard Drinks/Week Comments No 0 (1 standard drink = 0.6 oz pur e alcohol) [facility] Utilities Answer Date Recorded In the past 12 months has [employer], gas, oil, or water [employer] threatened to shut off services in your [...]
--- OUTSIDE RECORDS SUMMARY | 2024-08-23 23:34 | XMS_ITS | Encounter Summary ---
Author Organization [facility] Address [address] [place] [address] Care Team Providers Care Petroleum Inspector Name Role Phone Shannan Winter MD Primary Care Provider Unavail able Encounter Details Date Type Department Care Team (Late st Contact Info) Description 06/29/2005 Results Only [facility] - Maple conversion [address] [place] [address] Julita Martinez MD [address] [place] [address], [facility] [address] [place] [phone] Social History Tobacco Use Types Packs/Day Years [...] ? DORIS KERR ? Accession #: ? [id number] : ? 1980 (Age: 25) ??F ?Collect Date: ? 06/29/2005 Location: ? [facility] ? Receive Date: ? 06/30/2005 Provider: ?JULITA MARTINEZ MD Copy to: ?SHANNAN WINTER MD ? Specimen/Source: ?ThinPrep Pap Test, Cervix/Endocervix, processed on [employer] ThinPrep Imaging System, with manual evaluation Last [...] Date: ??07/08/2005 13:44 End of Report [facility] 06/29/2005 06/30/2005 us Julita Martinez MD PATHOLOGY ORDERABLES Final R esult [facility] [address] [place] [address] documented in this encounter Visit Diagnoses Not on filedocumented in this encounter Care Teams Petroleum Inspector Relationship Specialty Start Date End Date Shannan Winter MD PCP - General 04/08/09 03/15/19 documented as of this encounter
--- OUTSIDE RECORDS SUMMARY | 2024-08-23 23:34 | XMS_ITS | Encounter Summary ---
Author Organization [facility] Address [address] [place] [address] Care Team Providers Care Arboriculturist Name Role Phone Shannan Vieyra MD Primary Care Provider Unavail able Encounter Details Date Type Department Care Team (Late st Contact Info) Description 06/13/2004 Results Only [facility] - Maple conversion [address] [place] [address] Angelo William MD Social History Tobacco Use [...] % Neutrophils 38.1(L) 45.5 - 79.7 % [facility] % Lymphocytes 48.3(H) 15.0 - [...] S Final Result [facility] [address] [place] [address] * (ABNORMAL) HEMAGRAM AND DIFFERENTIAL (06/13/2004 6:00 [...] LAB PLT 214 141 - 320 K/cmm [facility] RDW-CV 15.7(H) 11.7 - 14.6 % [facility] 06/13/2004 6:00 EDT 06/13/2004 9:11 EDT us Angelo William MD PACKAGES & DNA PROBE ORDERABLE S Final Result Performing Organization Address [facility] Co de Phone Number [facility] [address] [place] [address] * (ABNORMAL) HEMAGRAM AND DIFFERENTIAL (06/13/2004 6:00 [...] LAB 06/13/2004 6:00 EDT 06/13/2004 9:11 EDT us Angeol William MD PACKAGES & DNA PROBE ORDERABLE S Final Result Performing Organization Address [facility] Co de Phone Number [facility] [address] [place] [address] * (ABNORMAL) HEMAGRAM AND DIFFERENTIAL (06/13/2004 6:00 EDT) WBC 5.78 4.0 - 12.4 K/cmm [facility] RBC 4.75 3.86 - 5.04 M/cmm [facility] Hemoglobin 13.3 11.6 - 15.2 gm/dl [facility] HCT 39.4 34.9 - 44.4 % [facility] MCV 83 81 - 98 fl [facility] MCH 27.9 26.7 - 33.3 pg [facility] MCHC 33.7 32.1 - 35.9 gm/dl [facility] PLT 214 141 - 320 K/cmm [facility] RDW-CV 15.7(H) 11.7 - 14.6 % [facility] 06/13/2004 6:00 EDT 06/13/2004 9:11 EDT us Angelo William MD PACKAGES & DNA PROBE ORDERABLE S Final Result [facility] [address] [place] [address] documented in this encounter Visit Diagnoses Not on filedocumented in this encounter Care Teams Arboriculturist Relationship Specialty Start Date End Date Shannan Vieyra MD PCP - General 04/08/09 03/15/19 documented as of this encounter
--- OUTSIDE RECORDS SUMMARY | 2024-08-23 23:34 | XMS_ITS | Encounter Summary ---
Author Organization [facility] Address [address] [place] [address] Care Team Providers Care Poultry Farm Worker Name Role Phone Unavailable Primary Care Provider Unavailabl e Encounter Details Date Type Department Care Team (Late st Contact Info) Description 06/26/2004 8:14 EDT - 06/26/2004 11:59 EDT Hospital Encounter [address] [address] Richard Covarrubias MD [address] [place] [address], [address] [place] [phone] Discharge Disposition: Auto Discharge Social History Tobacco [...] evidence of obstruction. dw Richard Covarrubias MD [facility] [place] ORDERABLES Nellie l Result documented in this encounter Visit Diagnoses Not on filedocumented in this encounter
--- OUTSIDE RECORDS SUMMARY | 2024-08-23 23:34 | XMS_ITS | Encounter Summary ---
Author Organization [facility] Address [address] [place] [address] Care Team Providers Care Care Process Manager Name Role Phone Unavailable Primary Care Provider Unavailabl e Encounter Details Date Type Department Care Team (Late st Contact Info) Description 06/10/2005 11:47 EDT Hospital Encounter [facility] - Other [address] [place] [address] Germain Mason MD [address] [place] [phone] Social History Tobacco Use Types Packs/Day Years Used Date Smoking Tobacco: Never Smokeless Tobacco: Never Alcohol Use Standard Drinks/Week Comments No 0 (1 standard drink = 0.6 oz pur e alcohol) [facility] Utilities Answer Date Recorded In the past 12 months has [employer], gas, oil, or water company threatened [...] 06/10/2005 12:0 4 EDT 06/10/2005 12:13 EDT us Germain Mason MD CHEMISTRY & BLOOD GAS ORDERABL ES Final Result [facility] [address] [place] [address] * (ABNORMAL) T4 FREE (06/10/2005 12:04 EDT) Free T4 2.4(H) 0.8 - 1.8 ng/dl [facility] 06/10/2005 12:0 4 EDT 06/10/2005 12:13 EDT Germain Mason MD CHEMISTRY & BLOOD GAS ORDERABL ES Final Result [facility] [address] [place] [address] documented in this encounter Visit Diagnoses Not on filedocumented in this encounter
--- OUTSIDE RECORDS SUMMARY | 2024-08-23 23:35 | XMS_ITS | Encounter Summary ---
Author Organization [facility] Address [address] [place] [address] Care Team Providers Care Elevator Service Mechanic Name Role Phone Unavailable Primary Care Provider Unavailabl e Encounter Details Date Type Department Care Team (Latest Contact Info) Description 02/18/2003 13:36 EDT Hospital Encounter [address] [address] Shannan Vieyra MD Discharge Disposition: Auto Discharge [...] diffuse goiter in this clinical setting. /tns us Shannan Vieyra MD IMG US ORDERABLES Final Result documented in this encounter Visit Diagnoses Not on filedocumented in this encounter
--- OUTSIDE RECORDS SUMMARY | 2024-08-23 23:35 | XMS_ITS | Encounter Summary ---
Author Organization [facility] Address [address] [place] [address] Care Team Providers Care Electrician Crane Maintenance Name Role Phone Shannan Vieyra MD Primary Care Provider Unavail able Encounter Details Date Type Department Care Team (Late st Contact Info) Description 04/19/2004 Office Visit [facility] - Maple conversion [address] [place] [address] Christopher Zavala MD [address] [facility], Level [address] [place] [phone] Social History Tobacco Use Types Packs/Day Years [...] Old medical records reviewed. Disposition: Admitted to [facility]. CLINICAL IMPRESSION Pyelonephritis. Christopher Zavala MD [...] R.N., R.N. Locked/Released at 04/20/2004 6:04 by Ector Puckett documented in this encounter Plan of Treatment Not on file documented as of this encounter Visit Diagnoses Not on filedocumented in this encounter Care Teams Electrician Crane Maintenance Relationship Specialty Start Date End Date Shannan Vieyra MD PCP - General 04/08/09 03/15/19 documented as of this encounter
--- OUTSIDE RECORDS SUMMARY | 2024-08-23 23:35 | XMS_ITS | Encounter Summary ---
Author Organization [facility] Address [address] [place] [address] Care Team Providers Care Pre School Manager Name Role Phone Unavailable Primary Care Provider Unavailabl e Encounter Details Date Type Department Care Team (Latest Contact Info) Description 04/02/2003 16:52 EDT Hospital Encounter [facility] - Other [address] [place] [address] Shannan Winter MD Discharge Disposition: Auto Discharge [...] ? DORIS KERR ? Accession #: ? [id number] : ? 1980 (Age: 23) ??F ?Collect [...] End of Report [facility] 04/02/2003 04/03/2003 us Shannan Winter MD PATHOLOGY ORDERABLES Final Res ult [facility] [address] [place] [address] documented in this encounter Visit Diagnoses Not on filedocumented in this encounter
--- OUTSIDE RECORDS SUMMARY | 2024-08-23 23:35 | XMS_ITS | Encounter Summary ---
Author Organization [facility] Address [address] [place] [address] Care Team Providers Care Fireproof Door Maker Name Role Phone Unavailable Primary Care Provider Unavailabl e Encounter Details Date Type Department Care Team (Late st Contact Info) Description 01/12/2001 9:06 EDT Hospital Encounter [facility] - Other [address] [place] [id number] Audrey Rausch MD [address] [place] [address], [facility] [address] [place] [phone] Unknown, Provider, Social History Tobacco Use Types Packs/Day Years Used Date Smoking Tobacco: Never Smokeless Tobacco: Never Alcohol Use Standard Drinks/Week Comments No 0 (1 standard drink = 0.6 oz pur e alcohol) [facility] Utilities Answer Date Recorded In the past 12 months has [facility] [employer], gas, oil, or water [employer] threatened to shut off services in your [...] ? DORIS KERR ? Accession #: ? [id number] : ? 1980 (Age: 20) ??F ?Collect [...] End of Report [facility] 01/12/2001 01/13/2001 us Audrey Rausch MD PATHOLOGY ORDERABLES Final Result [facility] [address] [place] [address] documented in this encounter Visit Diagnoses Not on filedocumented in this encounter
--- OUTSIDE RECORDS SUMMARY | 2024-08-23 23:35 | XMS_ITS | Encounter Summary ---
Author Organization [facility] Address [address] [place] [address] Care Team Providers Care Pointer Machine Operator Name Role Phone Unavailable Primary Care Provider Unavailabl e Encounter Details Date Type Department Care Team (Late st Contact Info) Description 04/06/2003 15:13 EDT Hospital Encounter [address] [address] Anahy Vazquez MD [address] [place] [address] Social History Tobacco Use Types Packs/Day Years [...] MCV 82 81 - 98 fl [facility] MCH 27.6 26.7 - 33.3 pg [facility] MCHC 33.8 32.1 - 35.9 gm/dl [facility] PLT 217 141 - 320 K/cmm [facility] RDW-CV 13.5 11.7 - 14.6 % [...] ABS Lymphs 1.90 1.09 - 3.30 K/cmm [facility] ABS Monocytes 0.53 0.1 - 0.8 K/cmm [facility] ABS Eosinophils 0.18 0.03 - 0.61 K/cmm [facility] ABS Basophils 0.02 0.01 - 0.11 K/cmm [facility] Type of Diff: Automated [facility] 04/06/2003 15:1 4 EDT 04/06/2003 15:16 EDT us Anahy Vazquez MD PACKAGES & DNA PROBE ORDERA BLES Final Result [facility] [address] [place] [address] documented in this encounter Visit Diagnoses Not on filedocumented in this encounter
--- OUTSIDE RECORDS SUMMARY | 2024-08-23 23:35 | XMS_ITS | Encounter Summary ---
Author Organization [facility] Address [address] [place] [address] Care Team Providers Care Ship'S Surveyor Name Role Phone Unavailable Primary Care Provider Unavailabl e Encounter Details Date Type Department Care Team (Late st Contact Info) Description 11/13/2003 14:05 [facility] Hospital Encounter [facility] - Other [address] [place] [address] Leida Cerda PA-C [address] [place] [address] [address] [place] [address] Social History Tobacco Use Types Packs/Day Years Used Date Smoking Tobacco: Never Smokeless Tobacco: Never Alcohol Use Standard Drinks/Week Comments No 0 (1 standard drink = 0.6 oz pur e alcohol) [facility] Utilities Answer Date Recorded In the past 12 months has [facility] electric, gas, oil, or water [...]
--- OUTSIDE RECORDS SUMMARY | 2024-08-23 23:35 | XMS_ITS | Encounter Summary ---
Author Organization [facility] Address [address] [place] [address] Care Team Providers Care Low Emission Automobile Designer Name Role Phone Unavailable Primary Care Provider Unavailabl e Encounter Details Date Type Department Care Team (Latest Contact Info) Description 03/27/2001 12:28 EDT Hospital Encounter [facility] Emergency Department - [facility] [address] [place], [place] [address] Emergency, Default, MD Discharge Disposition: Home or [...] 03/27/2001 13:4 0 EDT 03/27/2001 13:40 EDT us Default Emergency MD CHEMISTRY & BLOOD GAS ORDER ENDY Final Result [facility] [address] [place] [address] * (ABNORMAL) HEMAGRAM & DIFF (03/27/2001 12:39 EDT) WBC 6.25 4.0 - 12.4 K/cmm [facility] RBC 4.65 3.86 - 5.04 M/cmm [facility] Hemoglobin 13.3 11.6 - 15.2 gm/dl [facility] HCT 38.6 34.9 - 44.4 % [facility] MCV 83 81 - 98 fl [...] 03/27/2001 12:3 9 EDT 03/27/2001 12:39 EDT us Default Emergency HISTORICAL LAB FOR SQ LOAD Final Result [facility] [address] [place] [address] * SURGICAL PATHOLOGY (03/27/2001 0:00 EDT) Pathology Report: SURGICAL PATHOLOGY REPORT Reports generated via electronic interface contain original data; however they are lacking the format of the original report. Caution should be taken when reading/interpreti ng unformatted reports. Name: ? DORIS KERR ? Accession #: ? [id number] ? : ? 1980 (Age: 21) ??F [...] 2.0 cm. ??No parts are grossly identified. ??Watch Repair Technician sections are submitted as (A1) and (A2). [...] the above diagnosis. End of Report [facility] 03/27/2001 03/28/2001 10: 06 EDT us Vitaly Montalvo MD PATHOLOGY ORDERABLES Final Result [facility] [address] [place] [address] documented in this encounter Visit Diagnoses Not on filedocumented in this encounter
--- OUTSIDE RECORDS SUMMARY | 2024-08-23 23:35 | XMS_ITS | Encounter Summary ---
Author Organization [facility] Address [address] [place] [address] Care Team Providers Care Nurse Aide Evaluator Name Role Phone Unavailable Primary Care Provider Unavailabl e Encounter Details Date Type Department Care Team (Late st Contact Info) Description 04/16/2003 11:10 EDT Hospital Encounter [facility] [address] [place] [address] Pete Richey MD Social History Tobacco Use Types Packs/Day Years Used Date Smoking Tobacco: Never Smokeless Tobacco: Never Alcohol Use Standard Drinks/Week Comments No 0 (1 standard drink = 0.6 oz pur e alcohol) [facility] Utilities Answer Date Recorded In the past 12 months has [employer], gas, oil, or water company threatened [...]
--- OUTSIDE RECORDS SUMMARY | 2024-08-23 23:35 | XMS_ITS | Encounter Summary ---
Author Organization [facility] Address [address] [place] [address] Care Team Providers Care Automobile Parker Name Role Phone Shannan Vieyra MD Primary Care Provider Unavail able Encounter Details Date Type Department Care Team (Late st Contact Info) Description 02/12/2003 Results Only [facility] Family Medicine - [place] [id number] [place], [place] [phone] Leida Cerda PA-C [address] [facility] [address] [place], [place] [address] Social History Tobacco Use Types Packs/Day Years [...] 0.35 - 5.50 uIU/ml [facility] 02/12/2003 11:3 7 EDT 02/12/2003 16:43 EDT Leida Cerda PA-C CHEMISTRY & BLOOD G ORDERABLES Final Result Performing Organization Address [facility] de Phone Number [facility] [address] [place] [address] * (ABNORMAL) FREE T4 (02/12/2003 11:37 EDT) [facility] Free T4 3.1(H) 0.8 - 1.8 ng/dl [facility] 02/12/2003 11:3 7 EDT 02/12/2003 16:43 EDT Leida Cerda PA-C CHEMISTRY & BLOOD G ORDERABLES Final Result Performing Organization Address [facility] de Phone Number [facility] [address] [place] [address] * (ABNORMAL) COMPREHENSIVE METABOLIC PANEL (CMP) (02/12/2003 11:37 EDT) [facility] Potassium 4.6 3.5 - 5.0 mEq/L [facility] Sodium 141 136 - 145 mEq/L [facility] Chloride 103 96 - 110 mEq/L [facility] CO2 29 24 - 30 mEq/L [facility] Total Alkaline Phosphatase 114 38 - 126 U/L [facility] Bilirubin, Total 0.1(L) 0.2 - 1.3 mg/dl [facility] AST 16 8 - 50 U/L [facility] ALT 28 15 - 75 U/L [facility] Albumin 3.6 3.0 - 5.5 g/dl [facility] Total Protein 6.7 6.0 - 8.5 g/dl [facility] Creatinine 0.6(L) 0.7 - 1.5 mg/dl [facility] BUN 11 10 - 26 mg/dl [facility] Calcium 9.7 8.5 - 10.5 mg/dl [facility] Calculated Calcium 10.5 8.5 - 10.5 mg/dl [facility] Glucose, Serum 96 70 - 110 mg/dl [facility] Albumin/Globulin Ratio 1.2 [facility] 02/12/2003 11:3 7 EDT 02/12/2003 16:43 EDT us Leida Cerda PA-C CHEMISTRY & BLOOD G ORDERABLES Final Result Performing Organization Address [facility] Co de Phone Number [facility] [address] [place] [address] * (ABNORMAL) HEMAGRAM (02/12/2003 11:37 EDT) WBC 7.03 4.0 - 12.4 K/cmm [facility] RBC 5.22(H) 3.86 - 5.04 M/cmm [facility] Hemoglobin 14.2 11.6 - 15.2 gm/dl [facility] HCT 42.4 34.9 - 44.4 % [facility] MCV 81 81 - 98 fl [facility] MCH 27.2 26.7 - 33.3 pg [facility] MCHC 33.5 32.1 - 35.9 gm/dl [facility] PLT 234 141 - 320 K/cmm [facility] RDW-CV 13.6 11.7 - 14.6 % [facility] 02/12/2003 11:3 7 EDT 02/12/2003 16:43 EDT us Leida Cerda PA-C HEMATOLOGY & PF4 OR DERABLES Final Result Performing Organization Address [facility] Co de Phone Number [facility] [address] [place] [address] documented in this encounter Visit Diagnoses Not on filedocumented in this encounter Care Teams Automobile Parker Relationship Specialty Start Date End Date Shannan Vieyra MD PCP - General 04/08/09 03/15/19 documented as of this encounter
--- OUTSIDE RECORDS SUMMARY | 2024-08-23 23:35 | XMS_ITS | Encounter Summary ---
Author Organization [facility] Address [address] [place] [address] Care Team Providers Care Engraving Operator Name Role Phone Shannan Vieyra MD Primary Care Provider Unavail able Encounter Details Date Type Department Care Team (Late st Contact Info) Description 04/02/2003 Results Only [address] [address] Shannan Vieyra MD Social History Tobacco Use [...] Result No Neisseria gonorrhoeae DNA detected by psych arnp mediated amplification. [facility] Report Status Final [id number] [facility] Specimen Description Endocervix [facility] 04/02/2003 11:3 3 EDT 04/02/2003 17:20 EDT Shannan Vieyra MD MICROBIOLOGY - GENERAL ORDERAB LES Final Result Performing Organization Address City/[facility]/ZIP Co de Phone Number [facility] [address] [place] [address] * CHLAMYDIA TRACHOMATIS AMPLIFIED PROBE (04/02/2003 11:33 EDT) Specimen Description Endocervix [facility] Result No Chlamydia trachomatis DNA detected by psych arnp mediated amplification. [facility] Report Status Final [id number] [facility] 04/02/2003 11:3 3 EDT 04/02/2003 17:21 EDT us Shannan Vieyra MD MICROBIOLOGY - GENERAL ORDERAB LES Final Result Performing Organization Address [facility] Co de Phone Number [facility] [address] [place] [address] documented in this encounter Visit Diagnoses Not on filedocumented in this encounter Care Teams Engraving Operator Relationship Specialty Start Date End Date Shannan Vieyra MD PCP - General 04/08/09 03/15/19 documented as of this encounter
--- OUTSIDE RECORDS SUMMARY | 2024-08-23 23:35 | XMS_ITS | Encounter Summary ---
Author Organization [facility] Address [address] [place] [address] Care Team Providers Care Curing Oven Attendant Name Role Phone Shannan Vieyra MD Primary Care Provider Unavail able Encounter Details Date Type Department Care Team (Late st Contact Info) Description 04/19/2004 Office Visit [facility] - Maple conversion [address] [place] [address] Richard Fajardo MD [facility] [place] [address] Social History Tobacco Use Types [...] substitute OK. Follow-up: Follow up with [facility] Richard Fajardo M.D. (Electronically signed Richard [...] has had nausea and vomiting. (dizziness). Treatment WELDING INSPECTOR: took ibuprofen. PAST HX: Last normal menstrual [...] placed in reach. Side rails up. --03:14 Darion CruzNElvia 12-lead EKG was performed by a nurse [...] E.U./dL, ELVI 2+, all others negative). --05:33 Tata You BP: 109 / 60 HR: 93- normal sinus rhythm; frequent unifocal PVCs. RR: 20 Temp: 37.4 tympanic O2 saturation: 98 % room air --05:34 Yumiko Hernandez R.N. returned from CT by stretcher with tech. --06:35 Briana Vo [...] (Tubes sent- Mandi Riojas, cultures x1). --05:31 Tata You IV site discontinued: IV catheter intact, dressing applied. --08:42 Raine Hollingsworth R.N. DISPOSITION / DISCHARGE Condition at departure: improved. No barriers to learning present. Discharge instructions reviewed with the patient. Reviewed medication precautions, dosing and course; prescription (s) given to the patient (Prescriptions for Vicodin, Cipro, Phenergan given.). Reviewed referral to urologist. Patient verbalized understanding. The patient was discharged home and accompanied by inventory control assistant. The patient left the Emergency Department ambulatory and via private vehicle. --08:44 Ector Blake R.N., L.N.A. Alice Barber R.N. Donna Toohey, R.N. Brian Wellnitz E.M.T. Briana Vo, R.N. Sadaf Soons E.M.T. Raine Chicoine, R.N. Aura Karg R.N. Locked/Released at 04/20/2004 8:10 by Aura Cardoso R.N. documented in this encounter Plan of Treatment Not on file documented as of this encounter Visit Diagnoses Not on filedocumented in this encounter Care Teams Curing Oven Attendant Relationship Specialty Start Date End Date Shannan Vieyra MD PCP - General 04/08/09 03/15/19 documented as of this encounter
--- OUTSIDE RECORDS SUMMARY | 2024-08-23 23:35 | XMS_ITS | Encounter Summary ---
Author Organization [facility] Address [address] [place] [address] Care Team Providers Care Spiral Gear Generator Name Role Phone Shannan Vieyra MD Primary Care Provider Unavail able Encounter Details Date Type Department Care Team (Late st Contact Info) Description 04/02/2004 Office Visit [facility] Cardiology - Main [address] [address] Pete Richey MD Social History Tobacco Use [...] on filedocumented in this encounter Care Teams Spiral Gear Generator Relationship Specialty Start Date End Date Shannan Vieyra MD PCP - General 04/08/09 03/15/19 documented as of this encounter
--- OUTSIDE RECORDS SUMMARY | 2024-08-23 23:35 | XMS_ITS | Encounter Summary ---
Author Organization [facility] Address [address] [place] [address] Care Team Providers Care Photographic Laboratory Technician Name Role Phone Unavailable Primary Care Provider Unavailabl e Encounter Details Date Type Department Care Team (Latest Contact Info) Description 11/13/2001 7:38 EST - 11/13/2001 11:59 EST Hospital Encounter [facility] [place] [address] Emergency, Default, MD Discharge Disposition: Home or [...] normal. IMPRESSION IMPRESSION: No fracture or subluxation. /tns Moise John MD IMG DIAGNOSTIC IMAGING ORDERABL ES Final Result documented in this encounter Visit Diagnoses Not on filedocumented in this encounter
--- OUTSIDE RECORDS SUMMARY | 2024-08-23 23:35 | XMS_ITS | Encounter Summary ---
Author Organization [facility] Address [address] [place] [address] Care Team Providers Care Aed Trainer Name Role Phone Unavailable Primary Care Provider Unavailabl e Encounter Details Date Type Department Care Team (Latest Contact Info) Description 02/21/2003 13:09 EDT Hospital Encounter [facility] - Other [address] [place] [address] Angelo Clemons MD [address] [place] [address] [place] [phone] Discharge Disposition: Auto Discharge Social History [...] 13:09 EDT) Microsomal Ab <100 <100 Dils [facility] Thyroglobulin Ab <10 <10 [facility] 02/21/2003 13:0 9 EDT 02/21/2003 13:11 EDT us Angelo Clemons MD HISTORICAL LAB FOR SQ LOAD Final Result Performing Organization Address [facility] Co de Phone Number [facility] [address] [place] [address] * AST (02/21/2003 13:09 EDT) AST 18 8 - 50 U/L [facility] 02/21/2003 13:0 9 EDT 02/21/2003 13:11 EDT us Angelo Clemons MD CHEMISTRY & BLOOD GAS ORDERABLES Final Result Performing Organization Address [facility] de Phone Number [facility] [address] [place] [address] * ALT (02/21/2003 13:09 EDT) ALT 31 15 - 75 U/L [facility] 02/21/2003 13:0 9 EDT 02/21/2003 13:11 EDT Angelo Clemons MD CHEMISTRY & BLOOD GAS ORDERABLES Final Result Performing Organization Address [facility] de Phone Number [facility] [address] [place] [address] documented in this encounter Visit Diagnoses Not on filedocumented in this encounter
--- OUTSIDE RECORDS SUMMARY | 2024-08-23 23:35 | XMS_ITS | Encounter Summary ---
Author Organization [facility] Address [address] [place] [address] Care Team Providers Care Cook Camp Name Role Phone Isela Winter MD Primary Care Provider Unavail able Encounter Details Date Type Department Care Team (Late st Contact Info) Description 06/05/2004 Office Visit [facility] - Maple conversion [address] [place] [address] Jennifer Rhodes PA Social History Tobacco Use [...] substitute OK. Follow-up: ISELA WINTER MD, , [facility], [address], [place], [address] Follow up Tuesday. Jennifer Gardiner (Electronically signed [...] had severe nausea. No sinus pain. 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 Brakes of bed on. --20:00 Garry CourtneyMAnayTAnay (ice chips to pt). --20:49 Garry ArellanoMChen PHENERGAN 12.5 mg diluted with 5cc NS [...] Rate - wide open. --00:26 Genesis Mahmood E.M.T. IV fluid bag #3 discontinued (1000 cc absorbed). --03:11 Irina Hernández R.N. IV site discontinued: IV catheter intact, dressing applied. --03:11 Irina Hernández R.N. DISPOSITION / DISCHARGE Patient reports pain level on departure as 0/10. Condition at departure: improved. No barriers to learning present. Discharge instructions reviewed with the patient and diagnostic technologist. Warnings reviewed. Reviewed medication. Treatments reviewed. Reviewed referrals. Activity restrictions were reviewed. Patient verbalized understanding. The patient was discharged home and accompanied by diagnostic technologist. The patient left the Emergency Department ambulatory and via private vehicle. --03:17 Ector Valderrama R.N. E.M.TAnay Ness.M.TEctor Mayorga R.N., R.N. Locked/Released at 06/07/2004 3:46 [...] label instructions. Follow-up: ISELA WINTER MD, , [facility], [address], [place], [address] Follow up Tuesday if not better. Jennifer Gardiner (Electronically signed Jennifer Gardiner 06/06/2004 6:14) Physician's Clinical Report Emergency Department ??? Nursing Summary Registration Date/Time 06/05/2004 23:56 TRIAGE Initial Assessment Acuity: LEVEL 4. BP: 144 / 90 HR: 137 RR: 36 Temp: 38.4 tympanic Alert. --00:02 Cassy Kyle R.N. Medications Atenolol. Flonase Nasal [place]. (Neomycin ear drops started today). (Tapazol). --00:02 Cassy Kyle R.N. Allergies PENICILLIN- uncertain as to what symptoms developed. SULFA DRUGS- symptoms consisted of rash and shortness of breath. --00:02 Cassy Kyle R.N. History Chief Complaint: LEFT EAR PAIN. (about 5 days ago). Pain level now: 10/10. Reports fever and muscle aches. The patient has had nausea. 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 Recently seen in the office; [...] placed; flushed with 5 cc saline. --02:40 Fanda Plessl, E.M.T. Blood samples drawn by tech: [...] verbalized understanding. The patient was accompanied by diagnostic technologist. The patient left the Emergency Department ambulatory. --03:50 Ector Ferguson R.N., R.N. Kellie Klus R.N. Fanda Plessl, E.M.T. Joan Carson R.N. at 06/06/2004 3:59 by Nara Malin R.N. documented in this encounter Plan of Treatment Not on file documented as of this encounter Visit Diagnoses Not on filedocumented in this encounter Care Teams Cook Camp Relationship Specialty Start Date End Date Isela Winter MD PCP - General 04/08/09 03/15/19 documented as of this encounter
--- OUTSIDE RECORDS SUMMARY | 2024-08-23 23:35 | XMS_ITS | Encounter Summary ---
Author Organization [facility] Address [address] [place] [address] Care Team Providers Care Director Clinical Research Name Role Phone Unavailable Primary Care Provider Unavailabl e Encounter Details Date Type Department Care Team (Latest Contact Info) Description 06/05/2004 23:56 EDT - 06/06/2004 11:59 EDT Hospital Encounter [facility] Emergency Department - [address] [address] Emergency, Default, MD Discharge Disposition: Home or [...] 2:30 EDT) Specimen Description Blood Right Arm [facility] Result No growth [facility] Report Status Final [id number] [facility] 06/06/2004 2:30 EDT 06/06/2004 2:43 EDT us Default Emergency MD MICROBIOLOGY - GENERAL ORDE RABLES Final Result Performing Organization Address [facility]/ZIP Co de Phone Number [facility] [address] [place] [address] * HOLD SST (06/06/2004 2:30 EDT) Hold SST Hold for further testing. Specimen will be held for 30 days. [facility] 06/06/2004 2:30 EDT 06/06/2004 2:40 EDT us Default Emergency MD LAB INFO SERVICE AND SUPPOR T & PHONE RESULT Final Result Performing Organization Address [facility] Co de Phone Number [facility] [address] [place] [address] * (ABNORMAL) HEMAGRAM AND DIFFERENTIAL (06/06/2004 2:30 EDT) WBC 5.99 4.0 - 12.4 K/cmm [facility] RBC 5.09(H) 3.86 - 5.04 M/cmm [facility] Hemoglobin 13.9 11.6 - 15.2 gm/dl [facility] HCT 40.9 34.9 - 44.4 % [facility] MCV 80(L) 81 - 98 fl [facility] MCH 27.3 26.7 - 33.3 pg [facility] MCHC 33.9 32.1 - 35.9 gm/dl [facility] PLT 279 141 - 320 K/cmm [facility] RDW-CV 15.6(H) 11.7 - 14.6 % [facility] % Neutrophils 53.1 45.5 - 79.7 % [facility] % Lymphocytes 33.8 15.0 - [...] of Diff: Automated [facility] 06/06/2004 2:30 EDT 06/06/2004 2:40 EDT us Default Emergency MD PACKAGES & DNA PROBE ORDERA JEREMIAS Final Result Performing Organization Address City/[facility] Co de Phone Number [facility] [address] [place] [address] * BACTERIAL CULTURE, BLOOD (06/06/2004 2:15 EDT) Specimen Description Blood Left Arm [facility] Result STAPHYLOCOCCU S, COAGULASE NEGATIVE Isolated in one bottle. First detected in less than 24 hours. [facility] Report Status Final [id number] [facility] 06/06/2004 2:15 EDT 06/06/2004 2:42 EDT us Default Emergency MICROBIOLOGY - GENERAL ELLEN LAL Final Result Performing Organization Address City/[facility] Co de Phone Number [facility] [address] [place] [address] * CT HEAD WO CONTRAST (06/06/2004 1:47 [...] head CT. D 06/06/04 T 06/09/04 /emanuel us Mitzi ARAUJO IMG CT ORDERABLES Final Resul t documented in this encounter Visit Diagnoses Not on filedocumented in this encounter
--- OUTSIDE RECORDS SUMMARY | 2024-08-23 23:35 | XMS_ITS | Encounter Summary ---
Author Organization [facility] Address [address] [place] [address] Care Team Providers Care Honing Machine Operator Semiautomatic Name Role Phone Unavailable Primary Care Provider Unavailabl e Encounter Details Date Type Department Care Team (Late st Contact Info) Description 01/17/2002 16:53 EDT Hospital Encounter [facility] [address] [place] [address] Shannan Vieyra MD Social History Tobacco Use Types Packs/Day Years Used Date Smoking Tobacco: Never Smokeless Tobacco: Never Alcohol Use Standard Drinks/Week Comments No 0 (1 standard drink = 0.6 oz pur e alcohol) [facility] Utilities Answer Date Recorded In the past 12 months has [employer], gas, oil, or water company threatened [...]
--- OUTSIDE RECORDS SUMMARY | 2024-08-23 23:35 | XMS_ITS | Encounter Summary ---
Author Organization [facility] Address [address] [place] [address] Care Team Providers Care Director Of Field Service Name Role Phone Unavailable Primary Care Provider Unavailabl e Encounter Details Date Type Department Care Team (Latest Contact Info) Description 10/05/2000 16:08 EST Hospital Encounter [address] [address] Wyatt Sousa PA Discharge Disposition: Auto Discharge [...] appreciated. D 10/06/00 T 10/11/00 /emanuel Wyatt ARAUJO IMGeovany CT ORDERABLES Final Result documented in this encounter Visit Diagnoses Not on filedocumented in this encounter
--- OUTSIDE RECORDS SUMMARY | 2024-08-23 23:35 | XMS_ITS | Encounter Summary ---
Author Organization [facility] Address [address] [place] [address] Care Team Providers Care Cracker Off Name Role Phone Shannan Vieyra MD Primary Care Provider Unavail able Encounter Details Date Type Department Care Team (Late st Contact Info) Description 04/20/2004 Before PRISM Converted Visit (Maple) [facility] - Maple conversion [address] [place] [address] Arvind Avitia MD Social History Tobacco Use [...] on filedocumented in this encounter Care Teams Cracker Off Relationship Specialty Start Date End Date Shannan Vieyra MD PCP - General 04/08/09 03/15/19 documented as of this encounter
--- OUTSIDE RECORDS SUMMARY | 2024-08-23 23:35 | XMS_ITS | Encounter Summary ---
Author Organization [facility] Address [address] [place] [address] Care Team Providers Care Glass Inspector Name Role Phone Shannan Vieyra MD Primary Care Provider Unavail able Encounter Details Date Type Department Care Team (Late st Contact Info) Description 11/13/2003 Results Only [facility] Family Medicine - [place] [address] [place], [place] [address] Leida Cerda PA-C [address] [facility] [address] [place], [place] [address] Social History Tobacco Use Types Packs/Day Years [...] SPECIES [facility] Report Status Final [id number] [facility] 11/13/2003 12:1 8 EST 11/13/2003 16:52 EST Narrative Organism Antibiotic Method Susceptibility Greater than 100,000 cfu/mlenterococcus species Ampicillin SUSCEPTIBILITY (SAÚL) 0.5 Susceptible Susceptible Greater than 100,000 cfu/mlenterococcus species Nitrofurantoin SUSCEPTIBILITY (SAÚL) <=32 Susceptible Susceptible Greater than 100,000 cfu/mlenterococcus species Ciprofloxacin SUSCEPTIBILITY (SAÚL) 1 Susceptible Susceptible Leida Cerda PA-C MICROBIOLOGY - GENE RAL ORDERABLES Final Result Performing Organization Address [facility] Co de Phone Number [facility] [address] [place] [address] * PHARYNGITIS CULTURE (11/13/2003 12:18 EST) Specimen Description Throat [facility] Result NO GROUP A BETA STREPTOCOCCI ISOLATED [facility] Report Status Final [id number] [facility] 11/13/2003 12:1 8 EST 11/13/2003 16:41 EST Leida Cerda PA-C MICROBIOLOGY - GENE RAL ORDERABLES Final Result Performing Organization Address [facility] de Phone Number [facility] [address] [place] [address] * (ABNORMAL) HEMAGRAM AND DIFFERENTIAL (11/13/2003 12:18 [...] LAB RDW-CV 13.0 11.7 - 14.6 % [facility] % Neutrophils 82.4(H) 45.5 - 79.7 [...] of Diff: Automated [facility] 11/13/2003 12:1 8 EST 11/13/2003 16:48 EST us Leida Cerda PA-C PACKAGES & DNA PROB E ORDERABLES Final Result [facility] [address] [place] [address] documented in this encounter Visit Diagnoses Not on filedocumented in this encounter Care Teams Glass Inspector Relationship Specialty Start Date End Date Shannan Vieyra MD PCP - General 04/08/09 03/15/19 documented as of this encounter
--- OUTSIDE RECORDS SUMMARY | 2024-08-23 23:35 | XMS_ITS | Encounter Summary ---
Author Organization [facility] Address [address] [place] [address] Care Team Providers Care Quality Control Tech Raw Materials Name Role Phone Unavailable Primary Care Provider Unavailabl e Encounter Details Date Type Department Care Team (Latest Contact Info) Description 05/06/2003 15:40 EDT Hospital Encounter [facility] Emergency Department - [facility] [address] [place] [address] Emergency, Default, MD Discharge Disposition: Home or [...] 05/07/03 /emanuel Efe Guerrier MD IMG DIAGNOSTIC IMAGING ELLEN LAL Final Result documented in this encounter Visit Diagnoses Not on filedocumented in this encounter
--- OUTSIDE RECORDS SUMMARY | 2024-08-23 23:35 | XMS_ITS | Encounter Summary ---
Author Organization [facility] Address [address] [place] [address] Care Team Providers Care Registration Representative Name Role Phone Unavailable Primary Care Provider Unavailabl e Encounter Details Date Type Department Care Team (Latest Contact Info) Description 11/29/2000 15:32 EST Hospital Encounter [address] [address] Deana Gutierrez MD [address] [place] [phone] Discharge Disposition: Auto Discharge Social History Tobacco [...] evidence of recent fracture or dislocation. /fernanda us Deana Gutierrez MD IMG DIAGNOSTIC IMAGING ORDERABLES Final Result documented in this encounter Visit Diagnoses Not on filedocumented in this encounter
--- OUTSIDE RECORDS SUMMARY | 2024-08-23 23:35 | XMS_ITS | Encounter Summary ---
Author Organization [facility] Address [address] [place] [address] Care Team Providers Care Senior Water Resources Engineer Name Role Phone Unavailable Primary Care Provider Unavailabl e Encounter Details Date Type Department Care Team (Late st Contact Info) Description 11/01/2000 12:39 EST Hospital Encounter [facility] - Other [address] [place] [phone] Audrey Rausch MD [address] [place] [address], [facility] [address] [place] [phone] Unknown, Provider, Social History Tobacco Use Types Packs/Day Years Used Date Smoking Tobacco: Never Smokeless Tobacco: Never Alcohol Use Standard Drinks/Week Comments No 0 (1 standard drink = 0.6 oz pur e alcohol) [facility] Utilities Answer Date Recorded In the past 12 months has [facility] [employer], gas, oil, or water company threatened to [...] ? DORIS KERR ? Accession #: ? [id number] ? : ? 1980 (Age: 20) ??F [...] specimen is entirely submitted as (B). ??(Etienne Ashby/clau End of Report [facility] 11/01/2000 11/02/2000 10: 52 EST us Audrey Rausch MD PATHOLOGY ORDERABLES Final Result Performing Organization Address City/State/[facility] Co de Phone Number [facility] [address] [place] [address] documented in this encounter Visit Diagnoses Not on filedocumented in this encounter
--- OUTSIDE RECORDS SUMMARY | 2024-08-23 23:35 | XMS_ITS | Encounter Summary ---
Author Organization [facility] Address [address] [place] [address] Care Team Providers Care Blanking Machine Operator Name Role Phone Shannan Vieyra MD Primary Care Provider Unavail able Encounter Details Date Type Department Care Team (Late st Contact Info) Description 06/05/2004 Results Only [facility] - Maple conversion [address] [place] [address] Cassy Craig MD [address] [place] [address] [place] [phone] Social History Tobacco Use Types [...] ISOLATED [facility] Report Status Final [id number] [facility] 06/05/2004 12:0 3 EDT 06/05/2004 16:37 EDT us Cassy Craig MD MICROBIOLOGY - GENERAL ELLEN LAL Final Result [facility] [address] [place] [address] documented in this encounter Visit Diagnoses Not on filedocumented in this encounter Care Teams Blanking Machine Operator Relationship Specialty Start Date End Date Shannan Vieyra MD PCP - General 04/08/09 03/15/19 documented as of this encounter
--- OUTSIDE RECORDS SUMMARY | 2024-08-23 23:35 | XMS_ITS | Encounter Summary ---
Author Organization [facility] Address [address] [place] [address] Care Team Providers Care Sewing Machine Operator Semiautomatic Name Role Phone Unavailable Primary Care Provider Unavailabl e Encounter Details Date Type Department Care Team (Late st Contact Info) Description 02/19/2003 12:54 EDT Hospital Encounter [facility] - Other [address] [place] [address] Leida Cerda PA-C [address] [place] [address] [address] [place] [address] Discharge Disposition: Auto Discharge Social History Tobacco [...]
--- OUTSIDE RECORDS SUMMARY | 2024-08-23 23:35 | XMS_ITS | Encounter Summary ---
Author Organization [facility] Address [address] [place] [address] Care Team Providers Care Search Director Name Role Phone Unavailable Primary Care Provider Unavailabl e Encounter Details Date Type Department Care Team (Late st Contact Info) Description 03/24/2004 14:16 EDT Hospital Encounter [facility] - Other [address] [place] [address] Leida Cerda PA-C [address] [place] [phone] Social History Tobacco Use Types Packs/Day Years Used Date Smoking Tobacco: Never Smokeless Tobacco: Never Alcohol Use Standard Drinks/Week Comments No 0 (1 standard drink = 0.6 oz pur e alcohol) [facility] Utilities Answer Date Recorded In the past 12 months has [employer] electric, gas, oil, or water company threatened [...] time of interpretation by Dr. Hester. /gui us Richard Fajardo MD IMG CT ORDERABLES Final Res ult * CYTOPATHOLOGY (03/24/2004 0:00 EDT) Pathology Report: CYTOPATHOLOGY REPORT Reports generated via electronic interface contain original data; however they are lacking the format of the original report. Caution should be taken when reading/interpreti ng unformatted reports. Name: ? DORIS KERR ? Accession #: ? [id number] : ? 1980 (Age: 24) ??F ?Collect [...] reviewed and electronically signed by: ? GEORGI Latham(ASCP)(IAC) ? Report Date: ??03/30/2004 09:44 End of Report [facility] 03/24/2004 03/25/2004 us Leida Cerda PA-C PATHOLOGY ORDERABLE S Final Result [facility] [address] [place] [address] documented in this encounter Visit Diagnoses Not on filedocumented in this encounter
--- OUTSIDE RECORDS SUMMARY | 2024-08-23 23:35 | XMS_ITS | Encounter Summary ---
Author Organization [facility] Address [address] [place] [address] Care Team Providers Care Sludge Control Operator Name Role Phone Unavailable Primary Care Provider Unavailabl e Encounter Details Date Type Department Care Team (Latest Contact Info) Description 02/08/2004 16:01 EDT Hospital Encounter [address] [address] Adriana August, ASSISTANT DISTRICT ATTORNEY [address] [place] [address] Discharge Disposition: Auto Discharge Social History Tobacco [...]
--- OUTSIDE RECORDS SUMMARY | 2024-08-23 23:35 | XMS_ITS | Encounter Summary ---
Author Organization [facility] Address [address] [place] [address] Care Team Providers Care Animal Laboratory Helper Name Role Phone Unavailable Primary Care Provider Unavailabl e Encounter Details Date Type Department Care Team (Latest Contact Info) Description 03/06/2003 11:09 EDT - 03/06/2003 11:59 EDT Hospital Encounter [facility] [address] [place] [address] Angelo Clemons MD [address] [place] [phone] Discharge Disposition: Auto Discharge Social History Tobacco [...] with Grave's disease. D: 03-07-03 T: 03-08-03 Angelo Clemons MD [facility] [place] ORDERABLES Final Result documented in this encounter Visit Diagnoses Not on filedocumented in this encounter
--- OUTSIDE RECORDS SUMMARY | 2024-08-23 23:35 | XMS_ITS | Encounter Summary ---
Author Organization [facility] Address [address] [place] [address] Care Team Providers Care Value Stream Manager Name Role Phone Unavailable Primary Care Provider Unavailabl e Encounter Details Date Type Department Care Team (Late st Contact Info) Description 09/16/2003 15:53 EST Hospital Encounter [facility] - Maple conversion [address] [place] [address] Pete Richey MD Social History Tobacco Use Types Packs/Day Years Used Date Smoking Tobacco: Never Smokeless Tobacco: Never Alcohol Use Standard Drinks/Week Comments No 0 (1 standard drink = 0.6 oz pur e alcohol) [facility] Utilities Answer Date Recorded In the [...]
--- OUTSIDE RECORDS SUMMARY | 2024-08-23 23:35 | XMS_ITS | Encounter Summary ---
Author Organization [facility] Address [address] [place] [address] Care Team Providers Care Quality Lead Name Role Phone Shannan Vieyra MD Primary Care Provider Unavail able Encounter Details Date Type Department Care Team (Late st Contact Info) Description 02/08/2004 Results Only [facility] - Maple conversion [address] [place] [address] Eliza Sue MD [address] [place] [phone] Social History Tobacco Use Types Packs/Day Years [...] growth [facility] Report Status Final [id number] [facility] 02/08/2004 17:4 9 EDT 02/08/2004 19:32 EDT Adriana August NP MICROBIOLOGY - GENERAL ORDERA BLES Final Result Performing Organization Address [facility] Co de Phone Number [facility] [address] [place] [address] * BACTERIAL CULTURE, URINE (02/08/2004 16:55 EDT) Specimen Description Urine [facility] Result Ordered in error Credit Issued Duplicate order see URC [id number] [facility] Report Status Final [id number] [facility] 02/08/2004 16:5 5 EDT 02/08/2004 19:20 EDT Adriana August NP MICROBIOLOGY - GENERAL ORDERA BLES Final Result Performing Organization Address [facility] de Phone Number [facility] [address] [place] [address] * (ABNORMAL) URINE MICROSCOPIC ONLY (02/08/2004 16:55 [...] 02/08/2004 16:56 EDT Eliza Sue MD URINALYSIS ORDERABLES Nellie l Result Performing Organization Address City/[facility]/ZIP Co de Phone Number [facility] [address] [place] [address] documented in this encounter Visit Diagnoses Not on filedocumented in this encounter Care Teams Quality Lead Relationship Specialty Start Date End Date Shannan Vieyra MD PCP - General 04/08/09 03/15/19 documented as of this encounter
--- OUTSIDE RECORDS SUMMARY | 2024-08-23 23:35 | XMS_ITS | Encounter Summary ---
Author Organization [facility] Address [address] [place] [address] Care Team Providers Care Steamboat Inspector Name Role Phone Shannan Vieyra MD Primary Care Provider Unavail able Encounter Details Date Type Department Care Team (Late st Contact Info) Description 03/24/2004 Results Only [facility] - [place] [address] [place], [place] [address] Leida Cerda PA-C [address] [facility][Note 2] [address] [place], [place] [address] Social History Tobacco Use Types Packs/Day Years [...] Results * (ABNORMAL) TSH (03/24/2004 13:54 EDT) Pathologist [facility] TSH <0.02(L) 0.35 - 5.50 uIU/ml [facility] 03/24/2004 13:5 4 EDT 03/24/2004 18:51 EDT Leida Cerda PA-C CHEMISTRY & BLOOD G ORDERABLES Final Result Performing Organization Address [facility] Co de Phone Number [facility] [address] [place] [address] * (ABNORMAL) T3, TOTAL (03/24/2004 13:54 EDT) Pathologist [facility] T3, Total 294(H) 60 - 181 ng/dl [facility] 03/24/2004 13:5 4 EDT 03/24/2004 18:51 EDT Leida Cerda PA-C CHEMISTRY & BLOOD G ORDERABLES Final Result Performing Organization Address [facility] Co de Phone Number [facility] [address] [place] [address] * LIVER FUNCTION TESTS (03/24/2004 13:54 EDT) Pathologist [facility] Albumin 3.5 3.4 - 4.9 g/dl [facility] Total Protein 7.0 6.5 - 8.0 g/dl [facility] Total Alkaline Phosphatase 91 38 - 126 U/L [facility] ALT 16 9 - 52 U/L [facility] AST 15 15 - 46 U/L [facility] Unconjugated Bilirubin 0.3 0.1 - 1.1 mg/dl [facility] Conjugated Bilirubin 0.0 0.0 - 0.3 mg/dl [facility] Bilirubin, Total <0.5 0.2 - 1.3 mg/dl [facility] 03/24/2004 13:5 4 EDT 03/24/2004 18:51 EDT Leida Cerda PA-C CHEMISTRY & BLOOD G ORDERABLES Final Result Performing Organization Address City/[facility]/ZIP Co de Phone Number [facility] [address] [place] [address] * (ABNORMAL) T4 FREE (03/24/2004 13:54 EDT) Free T4 2.0(H) 0.8 - 1.8 ng/dl [facility] 03/24/2004 13:5 4 EDT 03/24/2004 18:51 EDT Leida Cerda PA-C CHEMISTRY & BLOOD G ORDERABLES Final Result Performing Organization Address [facility] Co de Phone Number [facility] [address] [place] [address] * HEMAGRAM AND DIFFERENTIAL (03/24/2004 13:54 EDT) WBC 8.60 4.0 - 12.4 K/cmm [facility] [...] LAB PLT 262 141 - 320 K/cmm [facility] [...] of Diff: Automated [facility] 03/24/2004 13:5 4 EDT 03/24/2004 18:51 EDT us Leida Cerda PA-C PACKAGES & DNA PROB E ORDERABLES Final Result [facility] [address] [place] [address] documented in this encounter Visit Diagnoses Not on filedocumented in this encounter Care Teams Steamboat Inspector Relationship Specialty Start Date End Date Shannan Vieyra MD PCP - General 04/08/09 03/15/19 documented as of this encounter
--- OUTSIDE RECORDS SUMMARY | 2024-08-23 23:35 | XMS_ITS | Encounter Summary ---
Author Organization [facility] Address [address] [place] [address] Care Team Providers Care Asphalt Paving Supervisor Name Role Phone Unavailable Primary Care Provider Unavailabl e Encounter Details Date Type Department Care Team (Latest Contact Info) Description 03/07/2003 8:25 EDT - 03/07/2003 11:59 EDT Hospital Encounter [facility] [address] [place] [address] Angelo Clemons MD [address] [place] [phone] Discharge Disposition: Auto Discharge Social History [...]
--- OUTSIDE RECORDS SUMMARY | 2024-08-23 23:35 | XMS_ITS | Encounter Summary ---
Author Organization [facility] Address [address] [place] [address] Care Team Providers Care E Learning Developer Name Role Phone Unavailable Primary Care Provider Unavailabl e Encounter Details Date Type Department Care Team (Latest Contact Info) Description 12/31/2000 23:46 EST - 01/01/2001 11:59 EST Hospital Encounter [facility] Emergency Department - [address] [address] Emergency, Default, MD Discharge Disposition: Home or [...] * BACTERIAL CULTURE, URINE (01/01/2001 8:11 EST) Specimen Description Urine [facility] Result Greater than 100,000 CFU/ml ESCHERICHIA COLI [facility] Report Status Final [id number] [facility] 01/01/2001 8:11 EST 01/01/2001 [...] than 100,000 cfu/ml escherichia coli Amikacin SUSCEPTIBILITY (SALÚ) <=2 Susceptible Greater than 100,000 cfu/ml escherichia coli Imipenem SUSCEPTIBILITY (SAÚL) <=4 Susceptible Greater than 100,000 cfu/ml escherichia coli Piperacillin SUSCEPTIBILITY (SAÚL) 32 Intermediate Greater than 100,000 cfu/ml escherichia coli Ciprofloxacin SUSCEPTIBILITY (SAÚL) <=0.5 Susceptible us Default Emergency MICROBIOLOGY - GENERAL ELLEN LAL Final Result Performing Organization Address City/State/[facility] Co de Phone Number [facility] [address] [place] [address] * LIVER FUNCTION TESTS (01/01/2001 0:58 EST) Albumin 4.2 3.0 - 5.5 g/dl [facility] Total Protein 7.4 6.0 - 8.5 g/dl [facility] Total Alkaline Phosphatase 91 38 - 126 U/L [facility] ALT 34 15 - 75 U/L [facility] AST 18 8 - 50 U/L [facility] Unconjugated Bilirubin 0.3 0.1 - 1.1 mg/dl [facility] Conjugated Bilirubin 0.0 0.0 - 0.3 mg/dl [facility] Bilirubin, Total 0.5 0.2 - 1.3 mg/dl [facility] 01/01/2001 0:58 EST 01/01/2001 0:58 EST us Default Emergency MD CHEMISTRY & BLOOD GAS ORDER ENDY Final Result Performing Organization Address [facility] de Phone Number [facility] [address] [place] [address] * LIPASE (01/01/2001 0:58 EST) Lipase 70 0 - 210 U/L [facility] 01/01/2001 0:58 EST 01/01/2001 0:58 EST us Default Emergency MD CHEMISTRY & BLOOD GAS ORDER ENDY Final Result Performing Organization Address [facility] de Phone Number [facility] [address] [place] [address] * HEMAGRAM & DIFF (01/01/2001 0:58 EST) [...] Lymphocytes 19.5 15.0 - 46.8 % [facility] % Monocytes 7.4 1.8 - 12.0 % [facility] % Eosinophils 2.9 0.6 - 6.9 % [facility] % Basophils 0.2 0.2 - 1.4 % [facility] ABS Neutrophils 4.75 2.20 - 8.85 K/cmm [facility] ABS Lymphs 1.33 1.09 - 3.30 K/cmm [facility] ABS Monocytes 0.50 0.1 - 0.8 K/cmm [facility] ABS Eosinophils 0.20 0.03 - 0.61 K/cmm [facility] ABS Basophils 0.02 0.01 - 0.11 K/cmm [facility] Type of Diff: Automated [facility] 01/01/2001 0:58 EST 01/01/2001 0:58 EST us Default Emergency MD HISTORICAL LAB FOR SQ LOAD Final Result Performing Organization Address [facility] de Phone Number [facility] [address] [place] [address] * (ABNORMAL) URINE MICROSCOPIC ONLY (01/01/2001 0:38 [...] LAB 01/01/2001 0:38 EST 01/01/2001 0:46 EST us Default Emergency MD URINALYSIS ORDERABLES Final Result Performing Organization Address [facility] de Phone Number [facility] [address] [place] [address] documented in this encounter Visit Diagnoses Not on filedocumented in this encounter
--- OUTSIDE RECORDS SUMMARY | 2024-08-23 23:35 | XMS_ITS | Encounter Summary ---
Author Organization [facility] Address [address] [place] [address] Care Team Providers Care Roving Hauler Name Role Phone Unavailable Primary Care Provider Unavailabl e Encounter Details Date Type Department Care Team (Latest Contact Info) Description 04/15/2003 14:24 EDT Hospital Encounter [facility] - Maple conversion [address] [place] [address] Pete Richey MD Discharge Disposition: Auto Discharge [...] 04/15/2003 11:5 5 EDT 04/15/2003 17:34 EDT us Germain Mason MD CHEMISTRY & BLOOD GAS ORDERABL ES Final Result Performing Organization Address [facility]/ZIP Co de Phone Number [facility] [address] [place] [address] * (ABNORMAL) T3, TOTAL (04/15/2003 11:55 EDT) T3, Total 302(H) 60 - 181 ng/dl [facility] 04/15/2003 11:5 5 EDT 04/15/2003 17:34 EDT us Germain Mason MD CHEMISTRY & BLOOD GAS ORDERABL ES Final Result Performing Organization Address [facility] de Phone Number [facility] [address] [place] [address] * (ABNORMAL) T4 FREE (04/15/2003 11:55 EDT) Free T4 1.9(H) 0.8 - 1.8 ng/dl [facility] 04/15/2003 11:5 5 EDT 04/15/2003 17:34 EDT us Germain Mason MD CHEMISTRY & BLOOD GAS ORDERABL ES Final Result Performing Organization Address [facility] [[email or web address]] Co de Phone Number [facility] [address] [place] [address] documented in this encounter Visit Diagnoses Not on filedocumented in this encounter
--- OUTSIDE RECORDS SUMMARY | 2024-08-23 23:35 | XMS_ITS | Encounter Summary ---
Author Organization [facility] Address [address] [place] [address] Care Team Providers Care Gate Watch Name Role Phone Shannan Vieyra MD Primary Care Provider Unavail able Encounter Details Date Type Department Care Team (Late st Contact Info) Description 06/06/2004 Results Only [facility] conversion [address] [place] [address] Emergency, MD Keli Social History Tobacco Use [...] (06/06/2004 22:45 EDT) Specimen Description Urine [facility] Result Greater than 100,000 CFU/ml PROTEUS MIRABILIS [facility] Report Status Final [id number] [facility] 06/06/2004 22:4 5 EDT 06/06/2004 [...] Piperacillin Tazobactam SUSCEPTIBILITY (SAÚL) <=8 Susceptible Susceptible us Default Emergency MICROBIOLOGY - GENERAL ELLEN LAL Final Result [facility] [address] [place] [address] * (ABNORMAL) UA WITH MICROSCOPIC (06/06/2004 22:45 EDT) Color, UA Yellow [facility] Clarity, UA Clear [facility] Glucose, UA Norm NORM [facility] Bilirubin, UA Neg NEG [facility] Ketones, UA Large(A) NEG [facility] Specific [place], Urine 1.020 1.005 - 1.02 [facility] [...] on urines unrefrig >2hrs or refrig >8hrs. [facility] Mucus, UA Small [facility] 06/06/2004 22:4 5 EDT 06/06/2004 22:53 EDT Default Emergency MD URINALYSIS ORDERABLES Final Result Performing Organization Address [facility] de Phone Number [facility] [address] [place] [address] * BACTERIAL CULTURE/SMEAR, FLUID (06/06/2004 22:22 EDT) Specimen Description Spinal Fluid [facility] Gram Smear Result Polys present Mononuclear cells present No bacteria seen [facility] Result No growth [facility] Report Status Final [id number] [facility] 06/06/2004 22:2 2 EDT 06/06/2004 22:32 EDT Default Emergency MICROBIOLOGY - GENERAL ORDE RABLES Final Result Performing Organization Address [facility] de Phone Number [facility] [address] [place] [address] * (ABNORMAL) FLUID DIFFERENTIAL (06/06/2004 22:10 EDT) Pathologist [facility] Lymphocyte, CSF 92(H) 40 - 80 % [facility] Zavala/Macro, CSF 4(L) 15 - 45 % [facility] Eosinophil, CSF 3 % [facility] Basophil, CSF 1 % [facility] 06/06/2004 22:1 0 EDT 06/06/2004 22:11 EDT Default Emergency GEN LAB UNIT COLLECT ORDERA BLES Final Result Performing Organization Address [facility] de Phone Number [facility] [address] [place] [address] * (ABNORMAL) TOTAL PROTEIN, CSF (06/06/2004 22:10 EDT) Total Protein, CSF 91(H) 15 - 60 mg/dl [facility] 06/06/2004 22:1 0 EDT 06/06/2004 22:11 EDT us Default Emergency GEN LAB UNIT COLLECT ORDERA BLES Final Result Performing Organization Address [facility] de Phone Number [facility] [address] [place] [address] * GLUCOSE CSF (06/06/2004 22:10 EDT) Glucose, CSF 40 mg/dl [facility] Comment: Ref Range=60-80% of plasma glucose result 06/06/2004 22:1 0 EDT 06/06/2004 22:11 EDT us Default Emergency GEN LAB UNIT COLLECT ORDERA BLES Final Result Performing Organization Address [facility] de Phone Number [facility] [address] [place] [address] * (ABNORMAL) CELL COUNT,CSF (06/06/2004 22:10 EDT) RBC, CSF 3 /cmm [facility] Nucleated Cells 528(H) 0 - 5 /cmm [facility] Total Vol. 4.0 ml [facility] Tube Cntd. 4 [facility] Tube Vol. 1.0 ml [facility] CSF Comment Clear and Colorless [facility] 06/06/2004 22:1 0 EDT 06/06/2004 22:11 EDT us Default Emergency GEN LAB UNIT COLLECT ORDERA BLES Final Result Performing Organization Address [facility] de Phone Number [facility] [address] [place] [address] * SED. RATE:WESTERGREN (06/06/2004 20:27 EDT) Sed. Rate Westergren 5 0 - 20 mm/hr [facility] 06/06/2004 20:2 7 EDT 06/06/2004 20:38 EDT us Default Emergency MD HEMATOLOGY & PF4 ORDERABLES Final Result Performing Organization Address [facility] Co de Phone Number [facility] [address] [place] [address] * GLUCOSE, SERUM (06/06/2004 20:27 EDT) Pathologist [facility] Glucose, Serum 90 70 - 110 mg/dl [facility] 06/06/2004 20:2 7 EDT 06/06/2004 20:38 EDT Default Emergency MD CHEMISTRY & BLOOD GAS ORDER ENDY Final Result Performing Organization Address [facility] de Phone Number [facility] [address] [place] [address] * (ABNORMAL) ELECTROLYTES (06/06/2004 20:27 EDT) Pathologist [facility] Sodium 137 136 - 145 mEq/L [facility] Potassium 4.1 3.5 - 5.0 mEq/L [facility] Chloride 104 96 - 110 mEq/L [facility] CO2 21(L) 24 - 32 mEq/L [facility] 06/06/2004 20:2 7 EDT 06/06/2004 20:38 EDT Default Emergency MD CHEMISTRY & BLOOD GAS ORDER ENDY Final Result Performing Organization Address [facility] de Phone Number [facility] [address] [place] [address] * (ABNORMAL) LIVER FUNCTION TESTS (06/06/2004 20:27 EDT) Pathologist [facility] Albumin 4.6 3.4 - 4.9 g/dl [facility] Total Protein 8.2(H) 6.5 - 8.0 g/dl [facility] Total Alkaline Phosphatase 94 38 - 126 U/L [facility] ALT 21 9 - 52 U/L [facility] AST 18 15 - 46 U/L [facility] Unconjugated Bilirubin 0.5 0.1 - 1.1 mg/dl [facility] Conjugated Bilirubin 0.0 0.0 - 0.3 mg/dl [facility] Bilirubin, Total <0.5 0.2 - 1.3 mg/dl [facility] 06/06/2004 20:2 7 EDT 06/06/2004 20:38 EDT us Default Emergency MD CHEMISTRY & BLOOD GAS ORDER ENDY Final Result Performing Organization Address [facility] de Phone Number [facility] [address] [place] [address] * LIPASE (06/06/2004 20:27 EDT) Lipase 89 0 - 250 U/L [facility] 06/06/2004 20:2 7 EDT 06/06/2004 20:38 EDT us Default Emergency MD CHEMISTRY & BLOOD GAS ORDER ENDY Final Result Performing Organization Address [facility] de Phone Number [facility] [address] [place] [address] * C-REACTIVE PROTEIN (06/06/2004 20:27 EDT) C-Reactive Protein <0.7 <1.0 mg/dl [facility] 06/06/2004 20:2 7 EDT 06/06/2004 20:38 EDT us Default Emergency MD CHEMISTRY & BLOOD GAS ORDER ENDY Final Result Performing Organization Address [facility] de Phone Number [facility] [address] [place] [address] * CREATININE (06/06/2004 20:27 EDT) Creatinine 0.8 0.7 - 1.5 mg/dl [facility] 06/06/2004 20:2 7 EDT 06/06/2004 20:38 EDT us Default Emergency MD HISTORICAL LAB FOR SQ LOAD Final Result Performing Organization Address [facility] Co de Phone Number [facility] [address] [place] [address] * (ABNORMAL) HEMAGRAM AND DIFFERENTIAL (06/06/2004 20:27 EDT) WBC 5.35 4.0 - 12.4 K/cmm [facility] RBC 5.57(H) 3.86 - 5.04 M/cmm [facility] Hemoglobin 15.2 11.6 - 15.2 gm/dl [...] Diff: Automated [facility] 06/06/2004 20:2 7 EDT 06/06/2004 20:38 EDT us Default Emergency PACKAGES & DNA PROBE ORDERA BLES Final Result [facility] [address] [place] [address] * BUN (06/06/2004 20:27 EDT) BUN 10 10 - 26 mg/dl [facility] 06/06/2004 20:2 7 EDT 06/06/2004 20:38 EDT us Default Emergency MD CHEMISTRY & BLOOD GAS ORDER ENDY Final Result Performing Organization Address City/State/[facility] Co de Phone Number [facility] [address] [place] [address] documented in this encounter Visit Diagnoses Not on filedocumented in this encounter Care Teams Gate Watch Relationship Specialty Start Date End Date Shannan Vieyra MD PCP - General 04/08/09 03/15/19 documented as of this encounter
--- OUTSIDE RECORDS SUMMARY | 2024-08-23 23:35 | XMS_ITS | Encounter Summary ---
Author Organization [facility] Address [address] [place] [address] Care Team Providers Care Lace Machine Operator Name Role Phone Unavailable Primary Care Provider Unavailabl e Encounter Details Date Type Department Care Team (Late st Contact Info) Description 04/18/2003 19:22 EDT Hospital Encounter [facility] [address] [place] [address] Pete Richey MD Social History Tobacco Use Types Packs/Day Years Used Date Smoking Tobacco: Never Smokeless Tobacco: Never Alcohol Use Standard Drinks/Week Comments No 0 (1 standard drink = 0.6 oz pur e alcohol) [facility] Utilities Answer Date Recorded In the past 12 months has [employer] electric, gas, oil, or water company threatened [...]
--- OUTSIDE RECORDS SUMMARY | 2024-08-23 23:35 | XMS_ITS | Encounter Summary ---
Author Organization [facility] Address [address] [place] [address] Care Team Providers Care Erection Shop Supervisor Name Role Phone Unavailable Primary Care Provider Unavailabl e Encounter Details Date Type Department Care Team (Late st Contact Info) Description 04/20/2004 1:59 EDT - 04/20/2004 11:59 EDT Hospital Encounter [facility] Neurosurgery Unit [address] [place] [address] Shannan Vieyra MD Bak, Christopher Dockery MD [address] [facility], [address] [place] [address] Discharge Disposition: Home or Self [...] EDT Shannan Vieyra MD CHEMISTRY & BLOOD GAS ORDERABL ES Final Result Performing Organization Address [facility] Co de Phone Number [facility] [address] [place] [address] * CREATININE (04/20/2004 7:12 EDT) Creatinine 0.7 0.7 - 1.5 mg/dl [facility] 04/20/2004 7:12 EDT 04/20/2004 7:43 EDT Shannan Vieyra MD HISTORICAL LAB FOR SQ LOAD Fin al Result Performing Organization Address [facility] de Phone Number [facility] [address] [place] [address] * (ABNORMAL) HEMAGRAM AND DIFFERENTIAL (04/20/2004 7:12 [...] ABS Neutrophils 5.16 2.20 - 8.85 K/cmm [facility] ABS Lymphs 1.76 1.09 - 3.30 K/cmm [facility] ABS Monocytes 0.90(H) 0.1 - 0.8 K/cmm [facility] ABS Eosinophils 0.10 0.03 - 0.61 K/cmm [facility] ABS Basophils 0.05 0.01 - 0.11 K/cmm [facility] Type of Diff: Automated [facility] 04/20/2004 7:12 EDT 04/20/2004 7:43 EDT us Shannan Vieyra MD PACKAGES & DNA PROBE ORDERABLE S Final Result Performing Organization Address [facility] de Phone Number [facility] [address] [place] [address] * (ABNORMAL) BUN (04/20/2004 7:12 EDT) Pathologist [facility] BUN 4(L) 10 - 26 mg/dl [facility] 04/20/2004 7:12 EDT 04/20/2004 7:43 EDT Shannan Vieyra MD CHEMISTRY & BLOOD GAS ORDERABL ES Final Result Performing Organization Address [facility] de Phone Number [facility] [address] [place] [address] * BACTERIAL CULTURE, URINE (04/20/2004 6:30 EDT) Specimen Description Urine [facility] Result Greater than 100,000 CFU/ml LACTOBACILL US SPECIES [facility] Report Status Final [id number] [facility] 04/20/2004 6:30 EDT 04/20/2004 7:54 EDT us Shannan Vieyra MD MICROBIOLOGY - GENERAL ORDERAB LES Final Result Performing Organization Address [facility] de Phone Number [facility] [address] [place] [address] * (ABNORMAL) ELECTROLYTES (04/19/2004 23:45 EDT) Sodium 138 136 - 145 mEq/L [facility] Potassium 3.4(L) 3.5 - 5.0 mEq/L [facility] Chloride 103 96 - 110 mEq/L [facility] CO2 22(L) 24 - 32 mEq/L [facility] 04/19/2004 23:4 5 EDT 04/19/2004 23:45 EDT us Default Emergency MD CHEMISTRY & BLOOD GAS ORDER ENDY Final Result Performing Organization Address City/[facility]/ZIP Co de Phone Number [facility] [address] [place] [address] * (ABNORMAL) CREATININE (04/19/2004 23:45 EDT) Pathologist [facility] Creatinine 0.6(L) 0.7 - 1.5 mg/dl [facility] 04/19/2004 23:4 5 EDT 04/19/2004 23:45 EDT us Default Emergency MD HISTORICAL LAB FOR SQ LOAD Final Result Performing Organization Address [facility] Co de Phone Number [facility] [address] [place] [address] * (ABNORMAL) HEMAGRAM AND DIFFERENTIAL (04/19/2004 23:45 EDT) Pathologist [facility] WBC 12.09 4.0 - 12.4 K/cmm [facility] RBC 5.03 3.86 - 5.04 M/cmm [facility] Hemoglobin 13.5 11.6 - 15.2 gm/dl [facility] HCT 40.2 34.9 - 44.4 % [facility] MCV 80(L) 81 - 98 fl [facility] MCH 26.8 26.7 - 33.3 pg [facility] MCHC 33.6 32.1 - 35.9 gm/dl [facility] PLT 219 141 - 320 K/cmm [facility] RDW-CV 13.2 11.7 - 14.6 % [facility] % Neutrophils 75.5 45.5 - [...] of Diff: Automated [facility] 04/19/2004 23:4 5 EDT 04/19/2004 23:45 EDT us Default Emergency MD PACKAGES & DNA PROBE ORDERA BLES Final Result [facility] [address] [place] [address] * (ABNORMAL) BUN (04/19/2004 23:45 EDT) BUN 6(L) 10 - 26 mg/dl [facility] 04/19/2004 23:4 5 EDT 04/19/2004 23:45 EDT us Default Emergency CHEMISTRY & BLOOD GAS ORDER ENDY Final Result [facility] [address] [place] [address] * BACTERIAL CULTURE, BLOOD (04/19/2004 5:15 EDT) Specimen Description Blood Right Arm [facility] Result No growth [facility] Report Status Final [id number] [facility] 04/19/2004 5:15 EDT 04/19/2004 5:18 EDT us Default Emergency MD MICROBIOLOGY - GENERAL ELLEN LAL Final Result Performing Organization Address City/[facility] Co de Phone Number [facility] [address] [place] [address] * GLUCOSE, SERUM (04/19/2004 5:15 EDT) Glucose, Serum 94 70 - 110 mg/dl [facility] 04/19/2004 5:15 EDT 04/19/2004 5:15 EDT us Default Emergency MD CHEMISTRY & BLOOD GAS ORDER ENDY Final Result Performing Organization Address [facility] de Phone Number [facility] [address] [place] [address] * (ABNORMAL) ELECTROLYTES (04/19/2004 5:15 EDT) Sodium 138 136 - 145 mEq/L [facility] Potassium 4.0 3.5 - 5.0 mEq/L [facility] Chloride 107 96 - 110 mEq/L [facility] CO2 22(L) 24 - 32 mEq/L [facility] 04/19/2004 5:15 EDT 04/19/2004 5:15 EDT us Default Emergency CHEMISTRY & BLOOD GAS ORDER ENDY Final Result Performing Organization Address [facility] de Phone Number [facility] [address] [place] [address] * (ABNORMAL) LIVER FUNCTION TESTS (04/19/2004 5:15 EDT) Albumin 3.3(L) 3.4 - 4.9 g/dl [facility] Total Protein 6.5 6.5 - 8.0 g/dl [facility] Total Alkaline Phosphatase 95 38 - 126 U/L [facility] ALT 17 9 - 52 U/L [facility] AST 12(L) 15 - 46 U/L [facility] Unconjugated Bilirubin 0.6 0.1 - 1.1 mg/dl [facility] Conjugated Bilirubin 0.0 0.0 - 0.3 mg/dl [facility] Bilirubin, Total 0.5 0.2 - 1.3 mg/dl [facility] 04/19/2004 5:15 EDT 04/19/2004 5:15 EDT us Default Emergency MD CHEMISTRY & BLOOD GAS ORDER ENDY Final Result Performing Organization Address [facility] de Phone Number [facility] [address] [place] [address] * LIPASE (04/19/2004 5:15 EDT) Pathologist [facility] Lipase 51 0 - 250 U/L [facility] 04/19/2004 5:15 EDT 04/19/2004 5:15 EDT Default Emergency MD CHEMISTRY & BLOOD GAS ORDER ENDY Final Result Performing Organization Address [facility] de Phone Number [facility] [address] [place] [address] * CREATININE (04/19/2004 5:15 EDT) Pathologist [facility] Creatinine 0.7 0.7 - 1.5 mg/dl [facility] 04/19/2004 5:15 EDT 04/19/2004 5:15 EDT Default Emergency HISTORICAL LAB FOR SQ LOAD Final Result Performing Organization Address [facility] de Phone Number [facility] [address] [place] [address] * (ABNORMAL) HEMAGRAM AND DIFFERENTIAL (04/19/2004 5:15 EDT) Pathologist [facility] WBC 11.24 4.0 - 12.4 K/cmm [facility] RBC 4.74 3.86 - 5.04 M/cmm [facility] Hemoglobin 13.0 11.6 - 15.2 gm/dl [facility] HCT 38.1 34.9 - 44.4 % [facility] MCV 80(L) 81 - 98 fl [facility] MCH 27.5 26.7 - 33.3 pg [facility] MCHC 34.2 32.1 - 35.9 gm/dl [facility] PLT 210 141 - 320 K/cmm [facility] RDW-CV 13.8 11.7 - 14.6 % [facility] % Neutrophils 78.1 45.5 - 79.7 [...] ABS Basophils 0.00(L) 0.01 - 0.11 K/cmm [facility] Type of Diff: Automated [facility] 04/19/2004 5:15 EDT 04/19/2004 5:15 EDT us Default Emergency MD PACKAGES & DNA PROBE ORDERA BLES Final Result Performing Organization Address City/[facility]/ZIP Co de Phone Number [facility] [address] [place] [address] * (ABNORMAL) BUN (04/19/2004 5:15 EDT) BUN 8(L) 10 - 26 mg/dl [facility] 04/19/2004 5:15 EDT 04/19/2004 5:15 EDT us Default Emergency CHEMISTRY & BLOOD GAS ORDER ENDY Final Result [facility] [address] [place] [address] * BACTERIAL CULTURE, BLOOD (04/19/2004 5:10 EDT) Specimen Description Blood Left Arm [facility] Result ESCHERICHIA COLI Isolated in one bottle. First detected in less than 24 hours. [facility] Report Status Final [id number] [facility] 04/19/2004 5:10 EDT 04/19/2004 5:18 EDT [...] Ampicillin Sulbactam SUSCEPTIBILITY (SAÚL) <=4 Susceptible Susceptible us Default Emergency MICROBIOLOGY - GENERAL ELLEN LAL Final Result [facility] [address] [place] [address] * BACTERIAL CULTURE, URINE (04/19/2004 5:05 EDT) Specimen Description Urine [facility] Result Greater than 100,000 CFU/ml ESCHERICHIA COLI [facility] Report Status Final [id number] [facility] 04/19/2004 5:05 EDT 04/19/2004 [...] LAL Final Result [facility] [address] [place] [address] documented in this encounter Visit Diagnoses Not on filedocumented in this encounter
--- OUTSIDE RECORDS SUMMARY | 2024-08-23 23:35 | XMS_ITS | Encounter Summary ---
Author Organization [facility] Address [address] [place] [address] Care Team Providers Care Senior Data Warehouse Architect Name Role Phone Unavailable Primary Care Provider Unavailabl e Encounter Details Date Type Department Care Team (Late st Contact Info) Description 03/15/2001 16:52 EDT Hospital Encounter [address] [address] Denice Martinez MD [address] [place] [address], [address] [place] [phone] Discharge Disposition: Auto Discharge Social History Tobacco [...] URINE (03/15/2001 16:58 EDT) Specimen Description Urine [facility] Result Less than 10,000 CFU/ml Mixed gram positive growth [facility] Report Status Final [id number] [facility] 03/15/2001 16:5 8 EDT 03/15/2001 17:09 EDT Denice Martinez MD MICROBIOLOGY - GENERAL ORDER ENDY Final Result Performing Organization Address [facility] de Phone Number [facility] [address] [place] [address] * PROGESTERONE (03/15/2001 16:58 EDT) Progesterone 6.1 [...] ORDERA BLES Final Result Performing Organization Address [facility] de Phone Number [facility] [address] [place] [address] * HCG (03/15/2001 16:58 EDT) HCG 8849 mIU/ml [facility] Comment: <4 = Negative 4-10 = Borderline, recommend repeat. 03/15/2001 16:5 8 EDT 03/15/2001 17:09 EDT Denice Martinez MD CHEMISTRY & BLOOD GAS ORDERA BLES Final Result [facility] [address] [place] [address] * PROFILE (03/15/2001 16:58 EDT) ABO and Rh Type A POS [facility] Antibody Screen Neg [facility] WBC 6.35 4.0 - 12.4 K/cmm [facility] RBC 4.49 3.86 - 5.04 M/cmm [facility] Hemoglobin 12.4 11.6 - 15.2 gm/dl [facility] HCT 37.3 34.9 - 44.4 % [facility] MCV 83 81 - 98 fl [facility] MCH 27.6 26.7 - 33.3 pg [facility] MCHC 33.3 32.1 - 35.9 gm/dl [facility] PLT 232 141 - 320 K/cmm [facility] RDW-CV 13.8 11.7 - 14.6 % [facility] Hepatitis B Surface Ag Neg [facility] % Neutrophils 46.3 45.5 - 79.7 [...] 03/15/2001 16:5 8 EDT 03/15/2001 17:09 EDT us Denice Martinez MD PACKAGES & DNA PROBE ORDERAB LES Final Result [facility] [address] [address] documented in this encounter Visit Diagnoses Not on filedocumented in this encounter
--- OUTSIDE RECORDS SUMMARY | 2024-08-23 23:35 | XMS_ITS | Encounter Summary ---
Author Organization [facility] Address [address] [place] [address] Care Team Providers Care E Business Consultant Name Role Phone Unavailable Primary Care Provider Unavailabl e Encounter Details Date Type Department Care Team (Latest Contact Info) Description 06/05/2003 14:58 EDT Hospital Encounter [facility] - [facility] conversion [address] [place] [address] Germain Mason MD [address] [place] [phone] Discharge Disposition: Auto Discharge Social History Tobacco [...] 0.35 - 5.50 uIU/ml [facility] 06/05/2003 14:5 5 EDT 06/05/2003 14:57 EDT us Germain Mason MD CHEMISTRY & BLOOD GAS ORDERABL ES Final Result Performing Organization Address [facility] de Phone Number [facility] [address] [place] [address] * (ABNORMAL) T3, TOTAL (06/05/2003 14:55 EDT) T3, Total 284(H) 60 - 181 ng/dl [facility] 06/05/2003 14:5 5 EDT 06/05/2003 14:57 EDT us Germain Mason MD CHEMISTRY & BLOOD GAS ORDERABL ES Final Result Performing Organization Address [facility] de Phone Number [facility] [address] [place] [address] * (ABNORMAL) T4 FREE (06/05/2003 14:55 EDT) Free T4 1.9(H) 0.8 - 1.8 ng/dl [facility] 06/05/2003 14:5 5 EDT 06/05/2003 14:57 EDT us Germain Mason MD CHEMISTRY & BLOOD GAS ORDERABL ES Final Result Performing Organization Address [facility] de Phone Number [facility] [address] [place] [address] documented in this encounter Visit Diagnoses Not on filedocumented in this encounter
--- OUTSIDE RECORDS SUMMARY | 2024-08-23 23:35 | XMS_ITS | Encounter Summary ---
Author Organization [facility] Address [address] [place] [address] Care Team Providers Care Machine Attendant Name Role Phone Shannan Vieyra MD Primary Care Provider Unavail able Encounter Details Date Type Department Care Team (Late st Contact Info) Description 09/16/2003 Results Only [facility] conversion [address] [place] [address] Germain Mason MD [address] [place] [address] [address] [phone] Social History Tobacco Use Types Packs/Day Years [...] EST Germain Mason MD CHEMISTRY & BLOOD GAS ORDERABL ES Final Result Performing Organization Address City/[facility] Co de Phone Number [facility] [address] [place] [address] * (ABNORMAL) T3, TOTAL (09/16/2003 15:59 EST) T3, Total 551(H) 60 - 181 ng/dl [facility] 09/16/2003 15:5 9 EST 09/16/2003 16:01 EST Germain Mason MD CHEMISTRY & BLOOD GAS ORDERABL ES Final Result Performing Organization Address [facility] de Phone Number [facility] [address] [place] [address] * (ABNORMAL) T4 FREE (09/16/2003 15:59 EST) Free T4 3.9(H) 0.8 - 1.8 ng/dl [facility] 09/16/2003 15:5 9 EST 09/16/2003 16:01 EST Germain Mason MD CHEMISTRY & BLOOD GAS ORDERABL ES Final Result Performing Organization Address [facility] de Phone Number [facility] [address] [place] [address] documented in this encounter Visit Diagnoses Not on filedocumented in this encounter Care Teams Machine Attendant Relationship Specialty Start Date End Date Shannan Vieyra MD PCP - General 04/08/09 03/15/19 documented as of this encounter
--- OUTSIDE RECORDS SUMMARY | 2024-08-23 23:35 | XMS_ITS | Encounter Summary ---
Author Organization [facility] Address [address] [place] [address] Care Team Providers Care Communication Instructor Name Role Phone Shannan Vieyra MD Primary Care Provider Unavail able Encounter Details Date Type Department Care Team (Late st Contact Info) Description 02/19/2003 Results Only [facility] Medicine - [address] [id number] Leida Cerda PA-C [address] [facility] [address] [place], [place] [address] Social History Tobacco Use Types Packs/Day Years [...] 02/19/2003 10:1 4 EDT 02/19/2003 16:51 EDT us Leida Cerda PA-C CHEMISTRY & BLOOD G ORDERABLES Final Result Performing Organization Address City/[facility] Co de Phone Number [facility] [address] [place] [address] * (ABNORMAL) T4 FREE (02/19/2003 10:14 EDT) Free T4 2.9(H) 0.8 - 1.8 ng/dl [facility] 02/19/2003 10:1 4 EDT 02/19/2003 16:51 EDT Leida Cerda PA-C CHEMISTRY & BLOOD G ORDERABLES Final Result Performing Organization Address [facility] de Phone Number [facility] [address] [place] [address] documented in this encounter Visit Diagnoses Not on filedocumented in this encounter Care Teams Communication Instructor Relationship Specialty Start Date End Date Shnanan Vieyra MD PCP - General 04/08/09 03/15/19 documented as of this encounter
--- OUTSIDE RECORDS SUMMARY | 2024-08-23 23:35 | XMS_ITS | Encounter Summary ---
Author Organization [facility] Address [address] [place] [address] Care Team Providers Care Specification Writer Name Role Phone Unavailable Primary Care Provider Unavailabl e Encounter Details Date Type Department Care Team (Late st Contact Info) Description 02/12/2003 14:53 EDT Hospital Encounter [facility] - Other [address] [place] [address] Leida Cerda PA-C [address] [place] [address] [address] [place] [address] Social History Tobacco Use Types Packs/Day Years Used Date Smoking Tobacco: Never Smokeless Tobacco: Never Alcohol Use Standard Drinks/Week Comments No 0 (1 standard drink = 0.6 oz pur e alcohol) [facility] Utilities Answer Date Recorded In the past 12 months has [employer], gas, oil, or water company threatened [...]
--- OUTSIDE RECORDS SUMMARY | 2024-08-23 23:36 | XMS_ITS | Encounter Summary ---
Author Organization [facility] Address [address] [place] [address] Care Team Providers Care Senior Electrical Project Manager Name Role Phone Unavailable Primary Care Provider Unavailabl e Encounter Details Date Type Department Care Team (Latest Contact Info) Description 05/28/2000 14:33 EDT Hospital Encounter [facility] - [facility] [address] [place], [place] [id number] Emergency, Default, MD Discharge Disposition: Home or [...] 15:16 EDT) Specimen Description Blood Left Arm [facility] Result No growth [facility] Report Status Final [id number] [facility] 05/28/2000 15:1 6 EDT 05/28/2000 15:16 EDT us Default Emergency MICROBIOLOGY - GENERAL ELLEN LAL Final Result Performing Organization Address City/[facility]/ZIP Co de Phone Number [facility] [address] [place] [address] * ELECTROLYTES (05/28/2000 14:47 EDT) Sodium 137 136 - 145 mEq/L [facility] Potassium 3.9 3.5 - 5.0 mEq/L [facility] Chloride 100 96 - 110 mEq/L [facility] CO2 24 24 - 30 mEq/L [facility] 05/28/2000 14:4 7 EDT 05/28/2000 14:49 EDT us Default Emergency CHEMISTRY & BLOOD GAS ORDER ENDY Final Result Performing Organization Address City/[facility]/ZIP Co de Phone Number [facility] [address] [place] [address] * HOLD (05/28/2000 14:47 EDT) Hold Sample for coagulation will be discarded after 4 hours [facility] 05/28/2000 14:4 7 EDT 05/28/2000 14:49 EDT us Default Emergency CHEMISTRY & BLOOD GAS ORDER ENDY Final Result Performing Organization Address City/[facility]/ZIP Co de Phone Number [facility] [address] [place] [address] * (ABNORMAL) CREATININE (05/28/2000 14:47 EDT) Creatinine 0.6(L) 0.7 - 1.5 mg/dl [facility] 05/28/2000 14:4 7 EDT 05/28/2000 14:49 EDT us Default Emergency HISTORICAL LAB FOR SQ LOAD Final Result Performing Organization Address [facility] [[email or web address]] Co de Phone Number [facility] [address] [place] [address] * (ABNORMAL) HEMAGRAM & DIFF (05/28/2000 14:47 EDT) WBC 15.08(H) 4.0 - 12.4 K/cmm [facility] RBC 5.07(H) 3.86 - 5.04 M/cmm [facility] Hemoglobin 13.6 11.6 - 15.2 gm/dl [facility] HCT 40.5 34.9 - 44.4 % [facility] MCV 80(L) 81 - 98 fl [facility] MCH 26.8 26.7 - 33.3 pg [facility] MCHC 33.6 32.1 - 35.9 gm/dl [facility] PLT 169 141 - 320 K/cmm [facility] RDW-CV 12.2 11.7 - 14.6 % [facility] Neutrophils 88(H) 45.5 - 79.7 % [facility] Lymphocytes 8(L) 15.0 - 46.8 % [facility] Monocytes 4 1.8 - 12.0 % [facility] ABS Neutrophils 13.27(H) 2.20 - 8.85 K/cmm [facility] ABS Lymphs 1.21 1.09 - 3.30 K/cmm [facility] ABS Monocytes 0.60 0.1 - 0.8 K/cmm [facility] RBC Morphology 1+ Hypochromia 2+ Microcytes [facility] WBC Morphology 1+ Toxic granulation 1+ Vacuolization [facility] Type of Diff: Manual [facility] 05/28/2000 14:4 7 EDT 05/28/2000 14:49 EDT us Default Emergency HISTORICAL LAB FOR SQ LOAD Final Result Performing Organization Address [facility] de Phone Number [facility] [address] [place] [address] * (ABNORMAL) BUN (05/28/2000 14:47 EDT) BUN 7(L) 10 - 26 mg/dl [facility] 05/28/2000 14:4 7 EDT 05/28/2000 14:49 EDT us Default Emergency CHEMISTRY & BLOOD GAS ORDER ENDY Final Result Performing Organization Address [facility] de Phone Number [facility] [address] [place] [address] * GRAM SMEAR (05/28/2000 14:44 EDT) Specimen Description Urine [facility] Gram Smear Result Mod Polys >50 Gram negative bacilli , per oil immersion field [facility] Report Status Final [id number] [facility] 05/28/2000 14:4 4 EDT 05/29/2000 9:38 EDT us Shannan Vieyra MD MICROBIOLOGY - GENERAL ORDERAB LES Final Result Performing Organization Address [facility] [[email or web address]] Co de Phone Number [facility] [address] [place] [address] * BACTERIAL CULTURE, URINE (05/28/2000 14:44 EDT) Specimen Description Urine [facility] Result Greater than 100,000 CFU/ml ESCHERICHIA COLI 10,000 to 100,000 CFU/ml Mixed gram positive growth [facility] Report Status Final [id number] [facility] 05/28/2000 14:4 4 EDT [...] SUSCEPTIBILITY (SAÚL) <=0.5 Susceptible us Default Emergency MD MICROBIOLOGY - GENERAL ORDE RABLES Final Result Performing Organization Address City/[facility] [[email or web address]] Co de Phone Number [facility] [address] [place] [address] * TEST, URINE (05/28/2000 14:44 EDT) Result-Pregnanc y Test, Ur Neg [facility] Specific [place] 1.015 [facility] 05/28/2000 14:4 4 EDT 05/28/2000 14:44 EDT us Default Emergency MD URINALYSIS ORDERABLES Final Result Performing Organization Address City/[facility] [[email or web address]] Co de Phone Number [facility] [address] [place] [address] * (ABNORMAL) URINE MICROSCOPIC ONLY (05/28/2000 14:44 EDT) WBC, UA >50 0 - 5 /HPF [facility] RBC, UA 1 to 5 0 - 5 /HPF [facility] Squam Epithel, UA Many(A) NS /HPF [facility] Renal Epithel, UA None seen NS /HPF [facility] Bacteria, UA Frequent(A) NS /HPF [facility] Crystals, UA None seen /HPF [facility] Hyaline Casts, UA Frequent transitional epithelial cells. /LPF [facility] UA Comment Microscopic results are unreliable on urines unrefrig >2hrs or refrig >8hrs. [facility] 05/28/2000 14:4 4 EDT 05/28/2000 14:44 EDT us Default Emergency MD URINALYSIS ORDERABLES Final Result [facility] [address] [place] [address] documented in this encounter Visit Diagnoses Not on filedocumented in this encounter
--- OUTSIDE RECORDS SUMMARY | 2024-08-23 23:36 | XMS_ITS | Encounter Summary ---
Author Organization [facility] Address [address] [place] [address] Care Team Providers Care Fire Chief Name Role Phone Unavailable Primary Care Provider Unavailabl e Encounter Details Date Type Department Care Team (Late st Contact Info) Description 10/04/2000 15:03 [facility] - Other [address] [place] [address] Wyatt Sousa PA Unknown, Provider, Social History Tobacco Use Types Packs/Day Years Used Date Smoking Tobacco: Never Smokeless Tobacco: Never Alcohol Use Standard Drinks/Week Comments No 0 (1 standard drink = 0.6 oz pur e alcohol) [facility] Utilities Answer Date Recorded In the [...] LAB RBC 4.43 3.86 - 5.04 M/cmm [facility] Hemoglobin 12.2 11.6 - 15.2 gm/dl [facility] HCT 35.9 34.9 - 44.4 % [facility] MCV 81 81 - 98 fl [facility] MCH 27.4 26.7 - 33.3 pg [facility] MCHC 33.9 32.1 - 35.9 gm/dl [facility] PLT 209 141 - 320 K/cmm [facility] RDW-CV 13.4 11.7 - 14.6 % [facility] Neutrophils 77 45.5 - 79.7 % [facility] % Bands 4 % [facility] Lymphocytes 10(L) 15.0 - 46.8 % [facility] % Atyp Lymphs 2 % [facility] Monocytes 6 1.8 - [...] ABS Eosinophils 0.16 0.03 - 0.61 K/cmm [facility] RBC Morphology 1+ Poikilocytosis [facility] WBC Morphology 1+ Toxic granulation 1+ Vacuolization [facility] Type of Diff: Manual [facility] 10/04/2000 13:0 0 EST 10/04/2000 17:15 EST us Provider Unknown HISTORICAL LAB FOR SQ LOAD F inal Result [facility] [address] [place] [address] * (ABNORMAL) BASIC METABOLIC PANEL (10/04/2000 13:00 EST) Sodium 135(L) 136 - 145 mEq/L [facility] Potassium 3.8 3.5 - 5.0 mEq/L [facility] Chloride 100 96 - 110 [...] 10/04/2000 13:0 0 EST 10/04/2000 17:15 EST us Provider Unknown CHEMISTRY & BLOOD GAS ORDERA BLES Final Result Performing Organization Address [facility] Co de Phone Number [facility] [address] [place] [address] * BACTERIAL CULTURE, URINE (10/04/2000 13:00 EST) Specimen Description Urine [facility] Result Greater than 100,000 CFU/ml ESCHERICHIA COLI [facility] Report Status Final [id number] [facility] 10/04/2000 13:0 0 EST [...] coli Ciprofloxacin SUSCEPTIBILITY (SAÚL) <=0.5 Susceptible us Provider Unknown MICROBIOLOGY - GENERAL ORDER ENDY Final Result Performing Organization Address City/[facility]/ZIP Co de Phone Number [facility] [address] [place] [address] documented in this encounter Visit Diagnoses Not on filedocumented in this encounter
--- OUTSIDE RECORDS SUMMARY | 2024-08-23 23:36 | XMS_ITS | Encounter Summary ---
Author Organization [facility] Address [address] [place] [address] Care Team Providers Care Psychometric Examiner Name Role Phone Unavailable Primary Care Provider Unavailabl e Encounter Details Date Type Department Care Team (Latest Contact Info) Description 08/09/1999 3:14 EST - 08/09/1999 11:59 EST Hospital Encounter [facility] [place] [address] Emergency, Default, MD Discharge Disposition: Home or [...]
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
--- OUTSIDE RECORDS SUMMARY | 2024-08-23 23:36 | XMS_ITS | Encounter Summary ---
Author Organization [facility] Address [address] [place] [address] Care Team Providers Care Bicycle Racer Name Role Phone Unavailable Primary Care Provider Unavailabl e Encounter Details Date Type Department Care Team (Late st Contact Info) Description 09/22/2000 10:27 EST Hospital Encounter [facility] - Other [address] [place] [address] Audrey Rausch MD [address] [place] [address], [facility] [address] [place] [phone] Unknown, Provider, Social History Tobacco Use Types Packs/Day Years Used Date Smoking Tobacco: Never Smokeless Tobacco: Never Alcohol Use Standard Drinks/Week Comments No 0 (1 standard drink = 0.6 oz pur e alcohol) [facility] Utilities Answer Date Recorded In the past 12 months has [facility] [employer], gas, oil, or water company threatened to [...] ? DORIS KERR ? Accession #: ? [id number] : ? 1980 (Age: 20) ??F ?Collect [...] electronically signed by: ? SHAYE LYNN MD [facility] ? Report Date: ??10/07/2000 17:22 End of Report [facility] 09/22/2000 09/23/2000 us Audrey Rausch MD PATHOLOGY ORDERABLES Final Result [facility] [address] [place] [address] documented in this encounter Visit Diagnoses Not on filedocumented in this encounter
--- OUTSIDE RECORDS SUMMARY | 2024-08-23 23:36 | XMS_ITS | Encounter Summary ---
Author Organization [facility] Address [address] [place] [address] Care Team Providers Care Tool Design Draftsperson Name Role Phone Unavailable Primary Care Provider Unavailabl e Encounter Details Date Type Department Care Team (Late st Contact Info) Description 05/19/2000 22:23 EDT Hospital Encounter [facility] - Other [address] [place] [address] Audrey Rausch MD [address] [place] [address], [facility] [address] [place] [phone] Unknown, Provider, Social History Tobacco Use Types Packs/Day Years Used Date Smoking Tobacco: Never Smokeless Tobacco: Never Alcohol Use Standard Drinks/Week Comments No 0 (1 standard drink = 0.6 oz pur e alcohol) [facility] Utilities Answer Date Recorded In the past 12 months has [facility] [employer], gas, oil, or water [employer] threatened to shut off services in your [...] ? DORIS KERR ? Accession #: ? [id number] : ? 1980 (Age: 20) ??F ?Collect [...] electronically signed by: ? SHAYE LYNN MD [facility] ? Report Date: ??06/01/2000 17:21 End of Report [facility] 05/19/2000 05/20/2000 us Audrey Rausch MD PATHOLOGY ORDERABLES Final Result [facility] [address] [place] [address] documented in this encounter Visit Diagnoses Not on filedocumented in this encounter
--- OUTSIDE RECORDS SUMMARY | 2024-08-23 23:36 | XMS_ITS | Encounter Summary ---
Author Organization [facility] Address [address] [place] [address] Care Team Providers Care Four Slide Machine Setter Name Role Phone Unavailable Primary Care Provider Unavailabl e Encounter Details Date Type Department Care Team (Latest Contact Info) Description 04/10/2000 5:00 EDT - 04/10/2000 11:59 EDT Hospital Encounter [facility] [place] [address] Emergency, Default, MD Discharge Disposition: Home or [...]
--- OUTSIDE RECORDS SUMMARY | 2024-08-23 23:36 | XMS_ITS | Encounter Summary ---
Author Organization [facility] Address [address] [place] [address] Care Team Providers Care Heel Seat Fitter Name Role Phone Unavailable Primary Care Provider Unavailabl e Encounter Details Date Type Department Care Team (Late st Contact Info) Description 01/20/2000 20:43 EDT Hospital Encounter [facility] - Other [address] [place] [address] Audrey Rausch MD [address] [place] [address], [facility] [address] [place] [phone] Unknown, Provider, Social History Tobacco Use Types Packs/Day Years Used Date Smoking Tobacco: Never Smokeless Tobacco: Never Alcohol Use Standard Drinks/Week Comments No 0 (1 standard drink = 0.6 oz pur e alcohol) [facility] Utilities Answer Date Recorded In the past 12 months has [facility] [employer], gas, oil, or water [employer] threatened to shut off services in your [...] ? DORIS KERR ? Accession #: ? [id number] ? : ? 1980 (Age: 19) ??F [...] ??(Etienne Nicole)/frank ? End of Report [facility] 01/20/2000 9:29 EDT 01/20/2000 9:30 EDT us Audrey Rausch MD PATHOLOGY ORDERABLES Final Result Performing Organization Address City/State/[facility] Co de Phone Number [facility] [address] [place] [address] documented in this encounter Visit Diagnoses Not on filedocumented in this encounter
--- OUTSIDE RECORDS SUMMARY | 2024-08-23 23:36 | XMS_ITS | Encounter Summary ---
Author Organization [facility] Address [address] [place] [address] Care Team Providers Care Microsoft Bi Architect Name Role Phone Unavailable Primary Care Provider Unavailabl e Encounter Details Date Type Department Care Team (Late st Contact Info) Description 12/15/1999 9:44 EST Hospital Encounter [facility] - Other [address] [place] [address] Shy Crowe, COMPUTER SYSTEMS SECURITY ADMINISTRATOR [address] [place] [phone] Unknown, Provider, Social History Tobacco Use Types Packs/Day Years Used Date Smoking Tobacco: Never Smokeless Tobacco: Never Alcohol Use Standard Drinks/Week Comments No 0 (1 standard drink = 0.6 oz pur e alcohol) [facility] Utilities Answer Date Recorded In the [...] ? DORIS KERR ? Accession #: ? [id number] : ? 1980 (Age: 19) ??F ?Collect Date: ? 12/16/1999 Location: ?Receive Date: ? 12/16/1999 Provider: ?SYH BRYANTP Copy to: ?SHY GRIGGS ? Specimen/Source: ?Acupressure Therapist ThinPrep Last Menstrual Period: ? GYNECOLOGIC ??CYTOPATHOLOGY ??REPORT Name: DORIS KERR ? [facility] : 1980 ?? 19Y F ?Client ID: ?? SS#: [id number] ? Clinician: SHY RIVERA ?? Location: [facility] ??Copy to: ?? Specimen: ?Acupressure Therapist ThinPrep ? Source: Cervix ?Collected: 12/15/99 ? [...] Lenz M.D. ? Report Date: ?? 12/21/1999 [facility] Archived Tests - Final Diagnosis Text Field: Clinical History : ? Document reviewed and electronically signed by: ? Conversion ? Report Date: ??12/21/1999 00:00 End of Report [facility] 12/16/1999 9:38 EST 12/16/1999 9:39 EST Shy GRIGGS PATHOLOGY ORDERABLES Fin al Result Performing Organization Address City/[facility]/ZIP Co de Phone Number [facility] [address] [place] [address] * CHLAMYDIA TRACHOMATIS PROBE (12/15/1999 18:00 EST) Specimen Description Cervix [facility] Result No Chlamydia trachomatis DNA detected by stitch welder mediated amplification. [facility] Report Status Final [id number] [facility] 12/15/1999 18:0 0 EST 12/16/1999 9:26 EST Shy GRIGGS HISTORICAL LAB FOR SQ LO AD Final Result Performing Organization Address [facility] de Phone Number [facility] [address] [place] [address] * N.GONORRHOEAE PROBE (12/15/1999 18:00 EST) Specimen Description Cervix [facility] Result No Neisseria gonorrhoeae DNA detected by stitch welder mediated amplification. [facility] Report Status Final [id number] [facility] 12/15/1999 18:0 0 EST 12/16/1999 9:26 EST Shy GRIGGS HISTORICAL LAB FOR SQ LO AD Final Result Performing Organization Address [facility]/ZIP Co de Phone Number [facility] [address] [place] [address] documented in this encounter Visit Diagnoses Not on filedocumented in this encounter
--- OUTSIDE RECORDS SUMMARY | 2024-08-23 23:36 | XMS_ITS | Encounter Summary ---
Author Organization [facility] Address [address] [place] [address] Care Team Providers Care Casting And Curing Operator Name Role Phone Unavailable Primary Care Provider Unavailabl e Encounter Details Date Type Department Care Team (Latest Contact Info) Description 05/29/2000 2:30 EDT - 06/01/2000 11:59 EDT Hospital Encounter [facility] General Medicine Unit [address] [place] [address] Ashwin Resendiz MD [address] [place] [address] Shannan Vieyra MD Discharge Disposition: Home or [...] Sodium 136 136 - 145 mEq/L [facility] Potassium 4.0 3.5 - 5.0 mEq/L [facility] Chloride 104 96 - 110 mEq/L [facility] CO2 23(L) 24 - 30 mEq/L [facility] 06/01/2000 6:00 EDT 06/01/2000 7:29 EDT Shannan Vieyra MD CHEMISTRY & BLOOD GAS ORDERABL ES Final Result Performing Organization Address [facility] Co de Phone Number [facility] [address] [place] [address] * (ABNORMAL) CREATININE (06/01/2000 6:00 EDT) Creatinine 0.6(L) 0.7 - 1.5 mg/dl [facility] 06/01/2000 6:00 EDT 06/01/2000 7:29 EDT us Shannan Vieyra MD HISTORICAL LAB FOR SQ LOAD Fin al Result Performing Organization Address City/[facility] Co de Phone Number [facility] [address] [place] [address] * (ABNORMAL) HEMAGRAM & DIFF (06/01/2000 6:00 EDT) WBC 3.06(L) 4.0 - 12.4 K/cmm [facility] RBC 4.05 3.86 - 5.04 M/cmm [facility] Hemoglobin 10.8(L) 11.6 - 15.2 gm/dl [facility] HCT 32.1(L) 34.9 - 44.4 % [facility] MCV 79(L) 81 - 98 fl [facility] MCH 26.6(L) 26.7 - 33.3 pg [facility] MCHC 33.6 32.1 - 35.9 gm/dl [facility] PLT 180 141 - 320 K/cmm [facility] RDW-CV 12.4 11.7 - 14.6 % [facility] Neutrophils 39(L) 45.5 - 79.7 % [facility] % Bands 1 % [facility] Lymphocytes 42 15.0 - 46.8 % [facility] % Atyp Lymphs 2 % [facility] Monocytes 10 1.8 - 12.0 % [facility] Eosinophils 6 0.6 - 6.9 % [facility] ABS Neutrophils 1.19(L) 2.20 - 8.85 K/cmm [facility] ABS Bands 0.03 K/cmm [facility] ABS Lymphs 1.29 1.09 - 3.30 K/cmm [facility] ABS Atyp Lymphs 0.06 K/cmm [facility] ABS Monocytes 0.31 0.1 - 0.8 K/cmm [facility] ABS Eosinophils 0.18 0.03 - 0.61 K/cmm [facility] RBC Morphology 1+ Anisocytosis 1+ Ovalocytes 2+ Microcytes 1+ Hypochromia [facility] Type of Diff: Manual [facility] 06/01/2000 6:00 EDT 06/01/2000 7:29 EDT us Shannan Vieyra MD HISTORICAL LAB FOR SQ LOAD Fin al Result [facility] [address] [place] [address] * (ABNORMAL) BUN (06/01/2000 6:00 EDT) BUN 3(L) 10 - 26 mg/dl [facility] 06/01/2000 6:00 EDT 06/01/2000 7:29 EDT Shannan Vieyra MD CHEMISTRY & BLOOD GAS ORDERABL ES Final Result Performing Organization Address [facility] Phone Number [facility] [address] [place] [address] * (ABNORMAL) ELECTROLYTES (05/31/2000 6:15 EDT) Sodium 137 136 - 145 mEq/L [facility] Potassium 3.6 3.5 - 5.0 mEq/L [facility] Chloride 106 96 - 110 mEq/L [facility] CO2 23(L) 24 - 30 mEq/L [facility] 05/31/2000 6:15 EDT 05/31/2000 7:20 EDT Shannan Vieyra MD CHEMISTRY & BLOOD GAS ORDERABL ES Final Result Performing Organization Address [facility] Phone Number [facility] [address] [place] [address] * (ABNORMAL) CREATININE (05/31/2000 6:15 EDT) Creatinine 0.6(L) 0.7 - 1.5 mg/dl [facility] 05/31/2000 6:15 EDT 05/31/2000 7:20 EDT Shannan Vieyra MD HISTORICAL LAB FOR SQ LOAD Fin al Result Performing Organization Address [facility] Phone Number [facility] [address] [place] [address] * (ABNORMAL) HEMAGRAM & DIFF (05/31/2000 6:15 EDT) WBC 3.82(L) 4.0 - 12.4 K/cmm [facility] RBC 3.86 3.86 - 5.04 M/cmm [facility] Hemoglobin 10.3(L) 11.6 - 15.2 gm/dl [facility] HCT 31.0(L) 34.9 - 44.4 % [facility] [...] LAB 05/31/2000 6:15 EDT 05/31/2000 7:20 EDT us Shannan Vieyra MD HISTORICAL LAB FOR SQ LOAD Fin al Result [facility] [address] [place] [address] * (ABNORMAL) BUN (05/31/2000 6:15 EDT) BUN 3(L) 10 - 26 mg/dl [facility] 05/31/2000 6:15 EDT 05/31/2000 7:20 EDT Shannan Vieyra MD CHEMISTRY & BLOOD GAS ORDERABL ES Final Result [facility] [address] [place] [address] * (ABNORMAL) ELECTROLYTES (05/30/2000 6:25 EDT) Sodium 139 136 - 145 mEq/L [facility] Potassium 4.0 3.5 - 5.0 mEq/L [facility] Chloride 111(H) 96 - 110 mEq/L [facility] CO2 22(L) 24 - 30 mEq/L [facility] 05/30/2000 6:25 EDT 05/30/2000 7:48 EDT Shannan Vieyra MD CHEMISTRY & BLOOD GAS ORDERABL ES Final Result Performing Organization Address [facility] Co de Phone Number [facility] [address] [place] [address] * (ABNORMAL) CREATININE (05/30/2000 6:25 EDT) Creatinine 0.6(L) 0.7 - 1.5 mg/dl [facility] 05/30/2000 6:25 EDT 05/30/2000 7:48 EDT us Shannan Vieyra MD HISTORICAL LAB FOR SQ LOAD Fin al Result Performing Organization Address [facility] de Phone Number [facility] [address] [place] [address] * (ABNORMAL) HEMAGRAM & DIFF (05/30/2000 6:25 [...] - 35.9 gm/dl [facility] PLT 126(L) 141 - 320 K/cmm [facility] RDW-CV 12.5 11.7 - 14.6 % [facility] [...] of Diff: Automated [facility] 05/30/2000 6:25 EDT 05/30/2000 7:48 EDT Shannan Vieyra MD HISTORICAL LAB FOR SQ LOAD Fin al Result Performing Organization Address City/[facility] Co de Phone Number [facility] [address] [place] [address] * (ABNORMAL) BUN (05/30/2000 6:25 EDT) BUN 2(L) 10 - 26 mg/dl [facility] 05/30/2000 6:25 EDT 05/30/2000 7:48 EDT Shannan Vieyra MD CHEMISTRY & BLOOD GAS ORDERABL ES Final Result Performing Organization Address City/[facility] Co de Phone Number [facility] [address] [place] [address] * (ABNORMAL) URINE MICROSCOPIC (05/30/2000 0:45 EDT) WBC, UA 1 to 5 0 - 5 /HPF [facility] RBC, UA less than 1 0 - 5 /HPF [facility] Squam Epithel, UA Few(A) NS /HPF [facility] Renal Epithel, UA None seen NS /HPF [facility] Bacteria, UA Few(A) NS /HPF [facility] Crystals, UA None seen /HPF [facility] Hyaline Casts, UA None seen /LPF [facility] UA Comment Microscopic results are unreliable on urines unrefrig >2hrs or refrig >8hrs. [facility] 05/30/2000 0:45 EDT 05/30/2000 2:22 EDT Shannan Vieyra MD URINALYSIS ORDERABLES Final Re sult Performing Organization Address [facility] de Phone Number [facility] [address] [place] [address] * (ABNORMAL) URINALYSIS (05/30/2000 0:45 EDT) Color, UA Yellow [facility] Clarity, UA Clear [facility] Glucose, UA Norm NORM [facility] Bilirubin, UA Neg NEG [facility] Ketones, UA Neg NEG [facility] Specific Gate, Urine 1.005 1.005 - 1.02 [facility] Blood, UA Trace(A) NEG [facility] pH, UA 7.0 5.0 - 9.0 [facility] Protein, UA Neg NEG [facility] Urobilinogen, UA Norm NORM mg/dL [facility] Nitrite, UA Neg NEG [facility] Leuk Esterase Neg NEG [facility] 05/30/2000 0:45 EDT 05/30/2000 2:22 EDT Shannan Vieyra MD URINALYSIS ORDERABLES Final Re sult Performing Organization Address [facility] Co de Phone Number [facility] [address] [place] [address] * BACTERIAL CULTURE, BLOOD (05/30/2000 0:40 EDT) Specimen Description Blood Left Arm [facility] Result No growth [facility] Report Status Final [facility] 05/30/2000 0:40 EDT 05/30/2000 1:00 EDT us Shannan Vieyra MD MICROBIOLOGY - GENERAL ORDERAB LES Final Result Performing Organization Address City/[facility]/ZIP Co de Phone Number [facility] [address] [place] [address] * BACTERIAL CULTURE, BLOOD (05/30/2000 0:30 EDT) Specimen Description Blood Right Arm [facility] Result No growth [facility] Report Status Final [facility] 05/30/2000 0:30 EDT 05/30/2000 1:00 EDT us Shannan Vieyra MD MICROBIOLOGY - GENERAL ORDERAB LES Final Result Performing Organization Address [facility] Co de Phone Number [facility] [address] [place] [address] * TEST, URINE (05/29/2000 14:10 EDT) Result-Pregnanc y Test, Ur Neg [facility] Specific Gate 1.005 [facility] 05/29/2000 14:1 0 EDT 05/29/2000 14:10 EDT us Shannan Vieyra MD URINALYSIS ORDERABLES Final Re sult Performing Organization Address [facility] Co de Phone Number [facility] [address] [place] [address] * BACTERIAL CULTURE, URINE (05/29/2000 14:09 EDT) Specimen Description Urine [facility] Result No growth [facility] Report Status Final [id number] [facility] 05/29/2000 14:0 9 EDT 05/29/2000 14:09 EDT us Shannan Viyera MD MICROBIOLOGY - GENERAL ORDERAB LES Final Result Performing Organization Address [facility] Co de Phone Number [facility] [address] [place] [address] * (ABNORMAL) URINE MICROSCOPIC (05/29/2000 14:09 EDT) [...] 05/29/2000 14:0 9 EDT 05/29/2000 14:09 EDT us Shannan Vieyra MD URINALYSIS ORDERABLES Final Re sult Performing Organization Address [facility] de Phone Number [facility] [address] [place] [address] * (ABNORMAL) URINALYSIS (05/29/2000 14:09 EDT) Color, UA Yellow [facility] Clarity, UA Clear [facility] Glucose, UA Norm NORM [facility] Bilirubin, UA Neg NEG [facility] Ketones, UA Neg NEG [facility] Specific Gate, Urine 1.005 1.005 - 1.02 [facility] Blood, UA Trace(A) NEG [facility] pH, UA 7.0 5.0 - 9.0 [facility] Protein, UA Neg NEG [facility] Urobilinogen, UA Norm NORM mg/dL [facility] Nitrite, UA Neg NEG [facility] Leuk Esterase Neg NEG [facility] 05/29/2000 14:0 9 EDT 05/29/2000 14:09 EDT us Shannan Vieyra MD URINALYSIS ORDERABLES Final Re sult [facility] [address] [place] [address] * CT PELVIS WO/CONTRAST (05/29/2000 9:09 EDT) [...] the findings. D: 05-29-00 T: 05-31-00 /am us Shannan Vieyra MD [facility] [place] ORDERABLES Final Result * CT ABDOMEN WO CONTRAST (05/29/2000 9:09 EDT) Anatomical Region Laterality Modality Other 05/29/2000 9:09 EDT Narrative 08/19/2009 18:50 EST KIDNEY STONE ?? RT. FLANK PAIN ??HEMATURIA Procedure Note Renaldo Bergeron MD / Michelle Coelho MD - 08/19/2009 KIDNEY STONE RT. FLANK PAIN HEMATURIA us Shannan Vieyra MD IMG CT ORDERABLES Final Result * (ABNORMAL) ELECTROLYTES (05/29/2000 6:25 EDT) Sodium 138 136 - 145 mEq/L [facility] Potassium 3.2(L) 3.5 - 5.0 mEq/L [facility] Comment:Sample retested, res ult confirmed Chloride 110 96 - 110 mEq/L [facility] CO2 22(L) 24 - 30 mEq/L [facility] 05/29/2000 6:25 EDT 05/29/2000 7:35 EDT us Shanann Vieyra MD CHEMISTRY & BLOOD GAS ORDERABL ES Final Result [facility] [address] [place] [address] * (ABNORMAL) CREATININE (05/29/2000 6:25 EDT) Creatinine 0.6(L) 0.7 - 1.5 mg/dl [facility] 05/29/2000 6:25 EDT 05/29/2000 7:35 EDT us Shannan Vieyra MD HISTORICAL LAB FOR SQ LOAD Fin al Result Performing Organization Address [facility] Co de Phone Number [facility] [address] [place] [address] * (ABNORMAL) HEMAGRAM & DIFF (05/29/2000 6:25 EDT) Pathologist [facility] WBC 7.84 4.0 - 12.4 K/cmm [facility] [...] ABS Monocytes 1.12(H) 0.1 - 0.8 K/cmm [facility] ABS Eosinophils 0.04 0.03 - 0.61 K/cmm [facility] ABS Basophils 0.03 0.01 - 0.11 K/cmm [facility] Type of Diff: Automated [facility] 05/29/2000 6:25 EDT 05/29/2000 7:35 EDT us Shannan Vieyra MD HISTORICAL LAB FOR SQ LOAD Fin al Result Performing Organization Address City/[facility] Co de Phone Number [facility] [address] [place] [address] * (ABNORMAL) BUN (05/29/2000 6:25 EDT) BUN 5(L) 10 - 26 mg/dl [facility] 05/29/2000 6:25 EDT 05/29/2000 7:35 EDT us Shannan Vieyra MD CHEMISTRY & BLOOD GAS ORDERABL ES Final Result Performing Organization Address [facility] Co de Phone Number [facility] [address] [place] [address] * BACTERIAL CULTURE, BLOOD (05/29/2000 2:15 EDT) Specimen Description Blood Right Arm [facility] Result No growth [facility] Report Status Final [id number] [facility] 05/29/2000 2:15 EDT 05/29/2000 8:57 EDT us Shannan Vieyra MD MICROBIOLOGY - GENERAL ORDERAB LES Final Result Performing Organization Address [facility] Co de Phone Number [facility] [address] [place] [address] documented in this encounter Visit Diagnoses Not on filedocumented in this encounter
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
[2024-08-24 00:30] LABS: FREE T4 1.26 ng/dL (0.76-1.46); TSH 0.32 uIU/mL (0.36-3.74)
[2024-08-24 17:54] LABS: T3, Total 131 ng/dL (97-169)
== END 2024-08-23 23:24 | disposition home or self-care (01) ==
LOC: NCHCN 23:23
PROVIDERS: PCP Family Medicine; Visit Provider Family Medicine
DX: E03.2 Hypothyroidism due to medicaments and other exogenous substances (principal)
CPT/HCPCS: 84439; 84443; 84480

== ENCOUNTER 2024-10-18 21:46 | Outpatient (REF) | payer BC, SELFPAY ==
--- OUTSIDE RECORDS SUMMARY | 2024-10-18 21:50 | XMS_ITS | Encounter Summary ---
Author Organization [facility] Address [address] [place] [address] Care Team Providers Care Guard Supervisor Name Role Phone Leida Cerda PA-C Primary Care Provi melvin Reason for Visit * Reason Comments Hypothyroidism Encounter Details Date Type Department Care Team (Late st Contact Info) Description 06/25/2020 9:00 EDT Office Visit [address] [phone] Leida Cerda PA-C [address] [facility] [address] [place] [address] Hypothyroidism, iatrogenic (Primary Dx); Need [...] Due for thyroid check New OCP per per diem clerk due to BP elevation Now on progesterone [...] 97 - 169 ng/dL 06/25/2020 16:37 EDT [facility] Blood VENOUS BLOOD / Unknown Venipuncture / Unknown 06/25/2020 9:58 EDT 06/25/2020 9:58 EDT Leiad Cerda PA-C CHEMISTRY & BLOOD G ORDERABLES Final Result Performing Organization Address [facility] de Phone Number [facility] [address] [place] [address] * T4 FREE (06/25/2020 9:58 EDT) T4, Free 2.0 0.8 - 2.2 ng/dL 06/25/2020 15:40 EDT [facility] Blood VENOUS BLOOD / Unknown Venipuncture / Unknown 06/25/2020 9:58 EDT 06/25/2020 9:58 EDT Leida Cerda PA-C CHEMISTRY & BLOOD G ORDERABLES Final Result Performing Organization Address [facility] de Phone Number [facility] [address] [place] [address] * BASIC METABOLIC PANEL (BMP) (06/25/2020 9:58 EDT) Sodium 141 136 - 145 mEq/L 06/25/2020 14:23 [facility] Potassium 4.8 3.5 - 5.0 mEq/L 06/25/2020 14:23 [facility] Chloride 105 96 - 110 mEq/L 06/25/2020 14:23 [facility] CO2 Total 23 22 - 32 mEq/L 06/25/2020 14:23 [facility] Glucose 96 70 - 100 mg/dL 06/25/2020 14:23 [facility] Calcium 10.1 8.5 - 10.5 mg/dL 06/25/2020 14:23 [facility] Calculated Calcium 9.6 8.5 - 10.5 mg/dL 06/25/2020 14:23 [facility] BUN 17 10 - 26 mg/dL 06/25/2020 14:23 [facility] Creatinine 0.53 0.52 - 1.04 mg/dL 06/25/2020 14:23 EDT [facility] eGFR 120 >60 mL/min/1.7 3m2 06/25/2020 14:23 EDT [facility] Comment:eGFR calculated silvia holguin CKD-EPI equation for non- Americans. Multiply eGFR by 1.16 for patients. Blood VENOUS BLOOD / Unknown Venipuncture / Unknown 06/25/2020 9:58 EDT 06/25/2020 9:58 EDT Leida Cerda PA-C CHEMISTRY & BLOOD G ORDERABLES Final Result Performing Organization Address [facility] Co de Phone Number [facility] [address] [place] [address] * (ABNORMAL) THYROID CASCADE (06/25/2020 9:58 EDT) TSH <0.02(L) 0.47 - 4.68 uIU/mL 06/25/2020 14:56 EDT [facility] Blood VENOUS BLOOD / Unknown Venipuncture / Unknown 06/25/2020 9:58 EDT 06/25/2020 9:58 EDT Narrative [facility] - 06/25/2020 14:56 EDT NOTE: TSH [place] is not recommended for patients in which pituitary or hypothalamic disorders are suspected. The results of this assay can be falsely lowered due to the consumption of Biotin. Leida Cerda PA-C CHEMISTRY & BLOOD G ORDERABLES Final Result Performing Organization Address [facility]/ZIP Co de Phone Number [facility] [address] [place] [address] documented in this encounter Visit Diagnoses Diagnosis [...] 20 documented in this encounter Care Teams Guard Supervisor Relationship Specialty Start Date End Date Leida Cerda PA-C PCP - General 03/16/19 03/07/22 documented as of this encounter
--- OUTSIDE RECORDS SUMMARY | 2024-10-18 21:50 | XMS_ITS | Encounter Summary ---
Author Organization [facility] Address [address] [place] [address] Care Team Providers Care Shactor Helper Name Role Phone Comfort Zelaya NP Primary Care Provider [phone] Encounter Details Date Type Department Care Team (Late st Contact Info) Description 04/15/2023 Lab Requisition [facility] Pathology & Laboratory Medicine - [address] [address] Outr Resulting Lab, Provider Social History Tobacco [...] 97 - 169 ng/dL 04/15/2023 22:16 EDT [facility] Blood VENOUS BLOOD / Unknown 04/15/2023 8:55 EDT 04/15/2023 21:31 EDT us Provider Outr Resulting Lab CHEMISTRY & BLOOD GA S ORDERABLES Final Result Performing Organization Address City/State/[facility] Co de Phone Number [facility] [address] [place] [address] documented in this encounter Visit Diagnoses Not on filedocumented in this encounter Care Teams Shactor Helper Relationship Specialty Start Date End Date Comfort Zelaya NP [address] [place] [phone] PCP - General Family Medicine - Primary Care 03/08/22 documented as of this encounter
--- OUTSIDE RECORDS SUMMARY | 2024-10-18 21:50 | XMS_ITS | Referral Summary ---
Author Organization [facility] Address [address] [place] [address] Care Team Providers Care Cable Tender Name Role Phone Comfort Zelaya NP Primary Care Provider [phone] Encounters Date Type Department Care Team Description 08/24/2024 Lab Requisition [facility] Pathology & Laboratory Medicine - [address] [address] Outr Resulting Lab, Provider from Last 3 [...] drink = 0.6 oz pur e alcohol) [facility] Utilities Answer Date Recorded In [...] Date/Time Associated Diagnosis Comments T3, TOTAL Routine 08/23/2024 16:15 EST PAP TEST Routine 10/28/2023 14:05 EST Well woman exam with routine gynecological exam MA BREAST DIAGNOSTIC ARIANNA BILATERAL Routine 08/17/2022 14:17 EST Mass of left breast, unspecified quadrant LIPID PROFILE (INCLUDES CHOLESTEROL, TRIGLYCERIDES, HDL, LDL) Routine 10/19/2019 from Last 3 Months or Most Recently Relevant to Health Maintenance Results * T3, TOTAL (08/23/2024 16:15 EST) T3, Total 131 97 - 169 ng/dL 08/24/2024 17:48 EST [facility] Blood VENOUS BLOOD / Unknown 08/23/2024 16:15 EST 08/24/2024 16:53 EST us Provider Outr Resulting Lab CHEMISTRY & BLOOD GA S ORDERABLES Final Result Performing Organization Address City/[facility]/ZIP Co de Phone Number [facility] [address] [place] [address] * PAP TEST (10/28/2023 14:05 EST) Specimens A. Cervix and/or Endocervix , ThinPrep Imaging System with Manual Evaluation 11/14/2023 19:11 [facility] Specimen Adequacy Satisfactory for Evaluation - transformation zone component present 11/14/2023 19:11 [facility] General Categorization Negative for intraepithelial lesion or malignancy 11/14/2023 19:11 [facility] Attestation . 11/14/2023 19:11 [facility] at 1911 Clinical History Screening 11/14/19 19:11 [facility] HPV The result for the Human Papillomavirus (HPV) Detection-High Risk Types is Negative. No E6 or E7 mRNA is detected from HPV types 16,18,31,33,35,39 ,45,51,52,56,58,5 9,66, and 68 by fleet sales manager mediated amplification.Misty ting was performed on specimen [id number] and was resulted on 11/14/2023 1911 EST by LUAN, LAB INSTRUMENT RESULTS IN 11/14/2023 19:11 [facility] Performing Lab [facility] 11/14/2023 19:11 [facility] Scanned Images 11/14/2023 19:11 [facility] Pap Test CERVIX UTERI STRUCTURE / Unknown 10/28/2023 14:05 EST 10/31/2023 12:13 EST Denice Martinez MD PATHOLOGY ORDERABLES Final R esult Performing Organization Address City/[facility]/ZIP Co de Phone Number [facility] [address] [place] [address] * MA BREAST DIAGNOSTIC ARIANNA BILATERAL (08/17/2022 [...] of any clinically suspicious palpable finding. The demographic analyst discussed the radiologist's interpretation and follow up [...] mass is seen. us Denice Martinez MD IM MAMMOGRAPHY ORDERABLES F [...] ORDERA BLES Final Result [facility] from Last 3 Months or Most Recently Relevant to Health Maintenance Insurance Advance Directives For more information, please contact: [phone] * Full Code (Latest Code Status on File) Date Activated Date Inactivated Comments 04/19/2014 9:24 04/19/2014 18:04 Care Teams Cable Tender Relationship Specialty Start Date End Date Comfort Zelaya NP [address] [place] [phone] PCP - General Family Medicine - Primary Care 03/08/22
--- OUTSIDE RECORDS SUMMARY | 2024-10-18 21:50 | XMS_ITS | Encounter Summary ---
Author Organization [facility] Address [address] [place] [address] Care Team Providers Care Admissions Supervisor Name Role Phone Leida Cerda PA-C Primary Care Provi melvin Reason for Visit * Reason Onset Date Comments Medications Refill 02/08/2020 Encounter Details Date Type Department Care Team (Late st Contact Info) Description 02/08/[address] [id number] Leida Cerda PA-C 402 [facility] [address] [place] [address] Medications Refill Social History Tobacco [...] Encounter - Veronica Han RN - 02/08/2020 4677 EDT Medication(s) Requested: Thyroid, pork Preferred Pharmacy: [facility] Is patient out of medication? Unknown Last Refill Date: 11/20/19 Last Visit Date with Ordering Provider: 09/05/18 Next Non-Acute Visit Date Scheduled with Care Team: Please Schedule an Appointment. VERONICA HAN RN 02/08/2020 14:47 * Telephone Encounter - Veronica Han RN - 02/08/2020 2556 EDTFrom: Doris Kerr Sent: 02/08/2020 14:40 EDT Subject: Medication Renewal Request Doris Kerr would like a refill of the following medications: Thyroid, Pork, 240 mg tablet [Leida Cerda PA-C] Patient Comment: I know I am due for labs, but I do not feel comfortable going in for them during the current situation Preferred pharmacy: [id number] - [facility], [place] - [address] [facility] documented in this encounter Plan of Treatment Not on file documented as of this encounter Visit Diagnoses Diagnosis Hypothyroidism, iatrogenic- Primary Other iatrogenic hypothyroidism documented in this encounter Discontinued Medications Medication Sig Discontinue Reason Start Date End Da te Thyroid, Pork, 240 mg tabletIndications:Hypothy roidism, iatrogenic Take 240 mg by mouth daily. Reorder 11/20/2019 02/08/2020 documented as of this encounter Care Teams Admissions Supervisor Relationship Specialty Start Date End Date Leida Cerda PA-C PCP - General 03/16/19 03/07/22 documented as of this encounter
--- OUTSIDE RECORDS SUMMARY | 2024-10-18 21:50 | XMS_ITS | Encounter Summary ---
Author Organization [facility] Address [address] [place] [address] Care Team Providers Care Damper Worker Name Role Phone Comfort Zelaya NP Primary Care Provider [phone] Reason for Visit * Reason Onset Date Comments Medications Refill 05/19/2022 Encounter Details Date Type Department Care Team (Late st Contact Info) Description 05/19/2022 Telephone [facility] OBGYN Services - [address] [address] Denice Martinez MD [address] [place] [address], [address] [place] [address] Medications Refill Social History Tobacco [...] refilled beforehand. Medication(s) Requested: Brandi Preferred Pharmacy: [facility] Is patient out of medication? Yes Is it ok to leave a detailed message? Yes Arianne Ortez 05/19/2022 16:56 documented in this encounter Plan of Treatment Not on file documented as of this encounter Visit Diagnoses Not on filedocumented in this encounter Care Teams Damper Worker Relationship Specialty Start Date End Date Comfort Zelaya NP [address] [place] [phone] PCP - General Family Medicine - Primary Care 03/08/22 documented as of this encounter
--- OUTSIDE RECORDS SUMMARY | 2024-10-18 21:50 | XMS_ITS | Encounter Summary ---
Author Organization [facility] Address [address] [place] [address] Care Team Providers Care Process Design Chemical Engineer Name Role Phone Comfort Zelaya NP Primary Care Provider [phone] Reason for Referral * Radiology Services (Routine/Next Available) - New Request Specialty Diagnoses / Procedures Referred By Julianne gallo Referred To Contact Diagnoses Mass of left breast, unspecified quadrant Procedures MA BREAST DIAGNOSTIC ARIANNA BILATERAL MA BREAST DIAGNOSTIC BILATERAL Denice Martinez MD Phone: tel: fax: [facility] Referral ID Status Reason Start Date Expiration Date V isits Requested Visits Authorized [id number] New Request 07/28/2022 1 1 Reason for Visit * Radiology Services (Routine/Next Available) - New Request Specialty Diagnoses / Procedures Referred By Julianne gallo Referred To Contact Diagnoses Mass of left breast, unspecified quadrant Procedures MA BREAST DIAGNOSTIC ARIANNA BILATERAL MA BREAST DIAGNOSTIC BILATERAL Denice Martinez MD Phone: tel: fax: [facility] Referral ID Status Reason Start Date Expiration Date V isits Requested Visits Authorized [id number] New Request 07/28/2022 1 1 Encounter Details Date Type Department Care Team (Latest Contact Info) Description 08/17/2022 13:50 EST - 08/17/2022 23:59 EST Hospital Encounter [facility] Breast Imaging Mammography - Main [place] [address] [place], [place] [phone] Mass of left breast, unspecified quadrant Discharge [...] Date/Time Associated Diagnosis Comments MA BREAST DIAGNOSTIC ARAINNA BILATERAL Routine 08/17/2022 14:17 EST Mass of [...] of any clinically suspicious palpable finding. The clinical biochemical geneticist discussed the radiologist's interpretation and follow up [...] quadrant documented in this encounter Care Teams Process Design Chemical Engineer Relationship Specialty Start Date End Date Comfort Zelaya NP [address] [place] [phone] PCP - General Family Medicine - Primary Care 03/08/22 documented as of this encounter
--- OUTSIDE RECORDS SUMMARY | 2024-10-18 21:50 | XMS_ITS | Encounter Summary ---
Author Organization [facility] Address [address] [place] [address] Care Team Providers Care Business Education Instructor Name Role Phone Comfort Zelaya HAND CANDY MOLDER Primary Care Provider [phone] Reason for Visit * Reason Onset Date Comments Pre-visit Orders 03/26/2022 Encounter Details Date Type Department Care Team (Late st Contact Info) Description 03/26/2022 Telephone [facility] Medicine [address] [address] Comfort Zelaya NP [address] [place] [address] Pre-visit Orders Social History Tobacco [...] 4.68 mIU/L 04/25/2022 10:46 EDT [facility] Blood VENOUS BLOOD / Unknown Venipuncture / Unknown 04/25/2022 9:49 EDT 04/25/2022 9:51 EDT Narrative [facility] - 04/25/2022 10:46 EDT NOTE: The results of this assay can be falsely lowered due to the consumption of Biotin. us Comfort Zelaya NP CHEMISTRY & BLOOD GAS ORDERABLES Final Result [facility] [address] [place] [address] documented in this encounter Visit Diagnoses Diagnosis Hypothyroidism, iatrogenic- Primary Other iatrogenic hypothyroidism documented in this encounter Care Teams Business Education Instructor Relationship Specialty Start Date End Date Comfort Zelaya NP [address] [place] [phone] PCP - General Family Medicine - Primary Care 03/08/22 documented as of this encounter
--- OUTSIDE RECORDS SUMMARY | 2024-10-18 21:50 | XMS_ITS | Encounter Summary ---
Author Organization [facility] Address [address] [place] [address] Care Team Providers Care Hot Dog Vender Name Role Phone Comfort Zelaya NP Primary Care Provider [phone] Reason for Visit * Reason Comments Annual Exam Encounter Details Date Type Department Care Team (Late st Contact Info) Description 10/28/2023 13:30 EST Office Visit [facility] OBGYN Services - [address] [phone] Denice Martinez MD 111 [facility], [address] [place] [address] Well woman exam with routine gynecological exam (Primary Dx) Social History Tobacco Use Types Packs/Day Years Used Date Smoking Tobacco: Never Smokeless Tobacco: Never Alcohol Use Standard Drinks/Week Comments No 0 (1 standard drink = 0.6 oz pur e alcohol) [facility] Utilities Answer Date Recorded In the past 12 months has [employer], gas, oil, or water [employer] threatened to shut off services in your [...] - 10/28/2023 13:30 EST Call for Mammogram [phone] documented in this encounter Ordered Prescriptions Prescription [...] NEURO: AAO x3, normal mood and affect. Finisher Card Tender: BREAST: No palpable masses or tenderness. No [...] types, PCR Negative Negative 11/14/2023 19:11 EST [facility] Comment:No E6 or E7 mRNA is detected from HPV types 16,18,31,33,35,39,45,51,52,56,58,59,66, and 68 by executive sous chef mediated amplification. Pap Test CERVIX UTERI STRUCTURE / Unknown 10/28/2023 14:05 EST 11/11/2023 14:23 EST Denice Martinez MD MICROBIOLOGY - GENERAL ORDER ENDY Final Result [facility] [address] [place] [id number] * PAP TEST (10/28/2023 14:05 EST) Specimens A. Cervix and/or Endocervix , ThinPrep Imaging System with Manual Evaluation 11/14/2023 19:11 EST [facility] Specimen Adequacy Satisfactory for Evaluation - transformation zone component present 11/14/2023 19:11 EST [facility] General Categorization Negative for intraepithelial lesion or malignancy 11/14/2023 19:11 [facility] Attestation . 11/14/2023 19:11 [facility] at 1911 Clinical History Screening 11/14/19 19:11 [facility] HPV The result for the Human Papillomavirus (HPV) Detection-High Risk Types is Negative. No E6 or E7 mRNA is detected from HPV types 16,18,31,33,35,39 ,45,51,52,56,58,5 9,66, and 68 by executive sous chef mediated amplification.Misty ting was performed on specimen [id number] and was resulted on 11/14/2023 191 EST by LUAN, LAB INSTRUMENT RESULTS IN 11/14/2023 19:11 [facility] Performing Lab [facility] 11/14/2023 19:11 [facility] Scanned Images 11/14/2023 19:11 [facility] Pap Test CERVIX UTERI STRUCTURE / Unknown 10/28/2023 14:05 EST 10/31/2023 12:13 EST us Denice Martinez MD PATHOLOGY ORDERABLES Final R esult [facility] [address] [place] [address] documented in this encounter Visit Diagnoses Diagnosis [...] mg added in this encounter Care Teams Hot Dog Vender Relationship Specialty Start Date End Date Comfort Zelaya NP [address] [place] [phone] PCP - General Family Medicine - Primary Care 03/08/22 documented as of this encounter
--- OUTSIDE RECORDS SUMMARY | 2024-10-18 21:50 | XMS_ITS | Encounter Summary ---
Author Organization [facility] Address [address] [place] [address] Care Team Providers Care Batt Packer Name Role Phone Leida Cerda PA-C Primary Care Provi melvin Reason for Visit * Reason Onset Date Comments Medications Refill 11/19/2019 Encounter Details Date Type Department Care Team (Late st Contact Info) Description 11/19/[address] [phone] Leida Cerda PA-C 402 [facility] [address] [place] [address] Medications Refill Social History Tobacco [...] work. Lab ordered She can go to [facility] for it * Telephone Encounter - Sheila Edmond RN - 11/20/2019 0845 EST Last refill: 08/07/18 Last OV note, 09/05/18: Recently adjusted [place] Thyroid and will re check TSH in another month ortwo I do not see that this was ever rechecked. To PCP to advise on refill, labs, OV * Telephone Encounter - Rima Urbina - 11/19/2019 1802 EST Medication(s) Requested: [place] Thyroid - per patient message [facility] Pharmacy: [facility] Is patient out of medication? Yes - per med refill line [facility] Last Refill Date: 2013 Last Visit Date with Ordering Provider: 09/05/18 Next Non-Acute Visit Date Scheduled with Care Team: No. Rima Urbina 11/19/2019 18:02 documented in this encounter Plan of Treatment Not on file documented as of this encounter Results * (ABNORMAL) THYROID CASCADE (06/25/2020 9:58 EDT) TSH <0.02(L) 0.47 - 4.68 uIU/mL 06/25/2020 14:56 EDT [facility] Blood VENOUS BLOOD / Unknown Venipuncture / Unknown 06/25/2020 9:58 EDT 06/25/2020 9:58 EDT Narrative [facility] - 06/25/2020 14:56 EDT NOTE: TSH [place] is not recommended for patients in which pituitary or hypothalamic disorders are suspected. The results of this assay can be falsely lowered due to the consumption of Biotin. us Leida Cerda PA-C CHEMISTRY & BLOOD G ORDERABLES Final Result [facility] [address] [place] [phone] documented in this encounter Visit Diagnoses Diagnosis Hypothyroidism, iatrogenic- Primary Other iatrogenic hypothyroidism documented in this encounter Discontinued Medications Medication Sig Discontinue Reason Start Date End Da te Thyroid, Pork, 240 mg tablet Take 240 mg by mouth daily. Reorder 08/07/2018 11/20/2019 documented as of this encounter Care Teams Batt Packer Relationship Specialty Start Date End Date Leida Cerda PA-C PCP - General 03/16/19 03/07/22 documented as of this encounter
--- OUTSIDE RECORDS SUMMARY | 2024-10-18 21:50 | XMS_ITS | Encounter Summary ---
Author Organization [facility] Address [address] [place] [address] Care Team Providers Care Body Wirer Name Role Phone Comfort Zelaya NP Primary Care Provider [phone] Reason for Visit * Reason Onset Date Comments Medication Management 04/26/2023 Encounter Details Date Type Department Care Team (Late st Contact Info) Description 04/26/2023 Telephone [facility] OBGYN Services - [address] [address] Denice Martinez MD [address] [place] [address], [address] [place] [address] Medication Management Social History Tobacco [...] Encounter - Cristy Engle RN - 04/26/2023 9561 EDT TC to patient to notify, she verbalizes understanding and will call in a few months to schedule annual visit. * Telephone Encounter - Cristy Engle RN - 04/26/2023 2040 EDT Medication Refill Request Patient/Fax/Surescript Request Medication/Dose/Route/Frequency: norethondrone (MICRONOR) 0.35 mg, prefers 3 mo supply at a time, takes continuously Last office visit: 08/17/22 Pending visit: None. Patient is not yet due. If appointment needed-message left/appointment made: N/A Pharmacy confirmed: [facility] #[id number] - [address] AT [facility] OF [facility] Amount filled/# of refills: 2 per MD orders, to last until patient is due for appointment. * Telephone Encounter - Eliza Mendoza - 04/26/2023 6993 EDT Reason for call as described by patient: Pt needs refill of medication. Somehow, pharmacy said theyasked for both epipen and control. She does not need an epipen as she just got one from her PCP, but does still need refill for OCPs. Medication(s) Requested: norethondrone (MICRONOR) 0.35 mg, prefers 3 mo supply at a time, takes continuously. Preferred Pharmacy: [facility] #[id number] [place], [place] - [address] [place] [address] AT [facility] Is patient out of medication? Yes Is [...] documented as of this encounter Care Teams Body Wirer Relationship Specialty Start Date End Date Comfort Zelaya NP [address] [place] [phone] PCP - General Family Medicine - Primary Care 03/08/22 documented as of this encounter"
--- OUTSIDE RECORDS SUMMARY | 2024-10-18 21:50 | XMS_ITS | Encounter Summary ---
Author Organization [facility] Address [address] [place] [address] Care Team Providers Care Hydraulic Controls Technician Name Role Phone Shannan Vieyra MD Primary Care Provider Unavail able Encounter Details Date Type Department Care Team (Late st Contact Info) Description 08/07/2018 Orders Only [facility] Family Medicine - [place] [phone] Leida Cerda PA-C 402 [facility] [address] [place], [place] [address] Hypothyroidism, iatrogenic (Primary Dx) Social History Tobacco [...] documented as of this encounter Care Teams Hydraulic Controls Technician Relationship Specialty Start Date End Date Shannan Vieyra MD PCP - General 04/08/09 03/15/19 documented as of this encounter
--- OUTSIDE RECORDS SUMMARY | 2024-10-18 21:50 | XMS_ITS | Encounter Summary ---
Author Organization [facility] Address [address] [place] [address] Care Team Providers Care Professional Skateboarder Name Role Phone Comfort Zelaya NP Primary Care Provider [phone] Encounter Details Date Type Department Care Team (Late st Contact Info) Description 02/17/2024 Lab Requisition [facility] Pathology & Laboratory Medicine - [address] [address] Outr Resulting Lab, Provider Social History Tobacco Use Types Packs/Day Years Used Date Smoking Tobacco: Never Smokeless Tobacco: Never Alcohol Use Standard Drinks/Week Comments No 0 (1 standard drink = 0.6 oz pur e alcohol) [facility] Utilities Answer Date Recorded In the past [...] 97 - 169 ng/dL 02/17/2024 18:[address] [facility] Blood VENOUS BLOOD / Unknown 02/16/2024 16:00 EDT 02/17/2024 17:42 EDT us Provider Outr Resulting Lab CHEMISTRY & BLOOD GA S ORDERABLES Final Result [facility] [address] [place], [place] [phone] documented in this encounter Visit Diagnoses Not on filedocumented in this encounter Care Teams Professional Skateboarder Relationship Specialty Start Date End Date Comfort Zelaya NP [address] [place] [phone] PCP - General Family Medicine - Primary Care 03/08/22 documented as of this encounter
--- OUTSIDE RECORDS SUMMARY | 2024-10-18 21:50 | XMS_ITS | Encounter Summary ---
Author Organization [facility] Address [address] [place] [address] Care Team Providers Care Measurement Technician Name Role Phone Leida Man PA-C Primary Care Provi melvin Comfort Zelaya NP Primary Care Provider [phone] Reason for Visit * Reason Onset Date Comments Medications Refill 06/05/2020 Encounter Details Date Type Department Care Team (Late st Contact Info) Description 06/05/2020 Refill [facility] Medicine [address] [phone] Leida Man PA-C 402 [facility] [place] [address] [place], [place] [phone] Medications Refill Social History Tobacco Use Types [...] Medication(s) Requested: Thyroid,Pork,240 mg tablet Preferred Pharmacy: [facility] Is patient out of medication?yes Last [...] documented as of this encounter Care Teams Measurement Technician Relationship Specialty Start Date End Date Leida Man PA-C PCP - General 03/16/19 03/07/22 Comfort Zelaya NP [address] [place] [phone] PCP - General Family Medicine - Primary Care 03/08/22 documented as of this encounter
--- OUTSIDE RECORDS SUMMARY | 2024-10-18 21:50 | XMS_ITS | Encounter Summary ---
Author Organization [facility] Address [address] [place] [address] Care Team Providers Care Quality Assurance Calibrator Name Role Phone Leida Cerda PA-C Primary Care Provi melvin Encounter Details Date Type Department Care Team (Late st Contact Info) Description 06/30/2020 Orders Only [facility] Family Medicine [address] [phone] Leida Cerda PA-C 402 [facility] [place] [address] [place] [address] Hypothyroidism, iatrogenic (Primary Dx) Social [...] documented as of this encounter Care Teams Quality Assurance Calibrator Relationship Specialty Start Date End Date Leida Cerda PA-C PCP - General 03/16/19 03/07/22 documented as of this encounter
--- OUTSIDE RECORDS SUMMARY | 2024-10-18 21:50 | XMS_ITS | Encounter Summary ---
Author Organization [facility] Address [address] [place] [address] Care Team Providers Care Concrete Rubber Name Role Phone Comfort Zelaya NP Primary Care Provider [phone] Reason for Visit * Reason Onset Date Comments Appointment Related 07/30/2022 Encounter Details Date Type Department Care Team (Late st Contact Info) Description 07/30/2022 Telephone [facility] Breast Imaging Mammography - [address] [address] Alisa Robb Appointment Related Social History Tobacco [...] message to call back breast imaging at [phone]. documented in this encounter Plan of Treatment Not on file documented as of this encounter Visit Diagnoses Not on filedocumented in this encounter Care Teams Concrete Rubber Relationship Specialty Start Date End Date Comfort Zelaya NP [address] [place] [phone] PCP - General Family Medicine - Primary Care 03/08/22 documented as of this encounter
--- OUTSIDE RECORDS SUMMARY | 2024-10-18 21:50 | XMS_ITS | Encounter Summary ---
Author Organization [facility] Address [address] [place] [address] Care Team Providers Care Privacy Director Name Role Phone Shannan Vieyra MD Primary Care Provider Unavail able Encounter Details Date Type Department Care Team (Late st Contact Info) Description 08/01/2018 Orders Only [facility] Family Medicine - [place] [phone] Leida Cerda PA-C [address] [place] [address] [address] [place], [place] [address] Hypothyroidism, iatrogenic (Primary Dx) Social History Tobacco [...] hypothyroidism documented in this encounter Care Teams Privacy Director Relationship Specialty Start Date End Date Shannan Vieyra MD PCP - General 04/08/09 03/15/19 documented as of this encounter
--- OUTSIDE RECORDS SUMMARY | 2024-10-18 21:50 | XMS_ITS | Clinical Summary ---
Author Organization [facility] Address [address] [place] [address] Care Team Providers Care Vehicle Window Tinter Name Role Phone Comfort Zelaya NP Primary Care Provider [phone] Allergies Active Allergy Reactions Criticality Noted Date [...] Team Description 08/24/2024 Lab Requisition [facility] Pathology & Laboratory Medicine - [address] [address] Outr Resulting Lab, Provider from Last 3 [...] drink = 0.6 oz pur e alcohol) [facility] [employer] Answer Date Recorded In the past 12 months has e Lore, gas, oil, or water uchoose threatened to shut off services in your [...] 97 - 169 ng/dL 08/24/2024 17:48 EST [facility] Blood VENOUS BLOOD / Unknown 08/23/2024 16:15 EST 08/24/2024 16:53 EST us Provider Outr Resulting Lab CHEMISTRY & BLOOD GA S ORDERABLES Final Result [facility] [address] [place] [address] * PAP TEST (10/28/2023 14:05 EST) Specimens A. Cervix and/or Endocervix , ThinPrep Imaging System with Manual Evaluation 11/14/2023 19:11 [facility] Specimen Adequacy Satisfactory for Evaluation - transformation zone component present 11/14/2023 19:11 [facility] General Categorization Negative for intraepithelial lesion or malignancy 11/14/2023 19:11 [facility] Attestation . 11/14/2023 19:11 [facility] at 1911 Clinical History Screening 11/14/19 19:11 [facility] HPV The result for the Human Papillomavirus (HPV) Detection-High Risk Types is Negative. No E6 or E7 mRNA is detected from HPV types 16,18,31,33,35,39 ,45,51,52,56,58,5 9,66, and 68 by web application tester mediated amplification.Misty ting was performed on specimen [id number] and was resulted on 11/14/2023 1911 EST by LUAN, LAB INSTRUMENT RESULTS IN 11/14/2023 19:11 [facility] Performing Lab [facility] 11/14/2023 19:11 [facility] Scanned Images 11/14/2023 19:11 [facility] Pap Test CERVIX UTERI STRUCTURE / Unknown 10/28/2023 14:05 EST 10/31/2023 12:13 EST us Denice Martinez MD PATHOLOGY ORDERABLES Final R esult [facility] [address] [place] [address] * MA BREAST DIAGNOSTIC ARIANNA BILATERAL (08/17/2022 [...] of any clinically suspicious palpable finding. The record pressman discussed the radiologist's interpretation and follow up [...] Advance Directives For more information, please contact: [phone] * Full Code (Latest Code Status on File) Date Activated Date Inactivated Comments 04/19/2014 9:24 04/19/2014 18:04 Care Teams Vehicle Window Tinter Relationship Specialty Start Date End Date Comfort Zelaya NP [address] [place] [phone] PCP - General Family Medicine - Primary Care 03/08/22
--- OUTSIDE RECORDS SUMMARY | 2024-10-18 21:50 | XMS_ITS | Encounter Summary ---
Author Organization [facility] Address [address] [place] [address] Care Team Providers Care Broadcast News Producer Name Role Phone Shannan Vieyra MD Primary Care Provider Unavail able Reason for Visit * Reason Comments Follow-up here for follow up; due for labs Encounter Details Date Type Department Care Team (Late st Contact Info) Description 07/31/2018 9:30 EDT Office Visit [place] [phone] Leida Cerda PA-C [address] [phone] Hypothyroidism, iatrogenic (Primary Dx); Essential hypertension Discharge [...] Notes * Leida Cerda PA - 07/31/2018 0929 EDT Subjective: Patient ID: Doris Kerr is [...] for this visit: Hypothyroidism, iatrogenic - Thyroid [place] Continue armour thyroid Essential hypertension - Basic [...] presents to office for venipuncture for Thyroid [place], BMP with a diagnosis of E03.2, I10per [...] 136 - 145 mEq/L 07/31/2018 14:23 T [facility] Potassium 4.8 3.5 - 5.0 mEq/L 07/31/2018 14:23 [facility] Chloride 107 96 - 110 mEq/L 07/31/2018 14:23 [facility] CO2 25 22 - 32 mEq/L 07/31/2018 14:23 [facility] BUN 15 10 - 26 mg/dl 07/31/2018 14:23 [facility] Creatinine 0.87 0.52 - 1.04 mg/dl 07/31/2018 14:23 [facility] GFR, Calculated 85 >60 ml/min/1.7 3m2 07/31/2018 14:23 [facility] Comment: eGFR calculated using CKD-EPI equation for non Americans. Multiply eGFR by 1.16 for Americans. Calcium 9.6 8.5 - 10.5 mg/dl 07/31/2018 14:23 EDT [facility] Calculated Calcium 9.3 8.5 - 10.5 mg/dl 07/31/2018 14:23 EDT [facility] Glucose, Serum 93 70 - 100 mg/dl 07/31/2018 14:23 EDT [facility] Fasting? Unknown 07/31/2018 14:23 EDT [facility] Blood specimen (specimen) BLOOD SPECIMEN / Unknown 07/31/2018 10:18 EDT 07/31/2018 14:05 EDT Leida Cerda PA-C CHEMISTRY & BLOOD G ORDERABLES Final Result Performing Organization Address [facility] de Phone Number [facility] [address] [place] [address] * (ABNORMAL) THYROID CASCADE (07/31/2018 10:18 EDT) TSH 5.07(H) 0.47 - 4.68 uIU/ml 07/31/2018 14:59 EDT [facility] Comment: TSH cascade is not recommended for patients in which pituitary or hypothalamic disorders are suspected. The results of this assay can be falsely lowered due to the consumption of Biotin. Blood specimen (specimen) BLOOD SPECIMEN / Unknown 07/31/2018 10:18 EDT 07/31/2018 14:05 EDT us Leida Cerda PA-C CHEMISTRY & BLOOD G ORDERABLES Final Result Performing Organization Address [facility] Co de Phone Number [facility] [address] [place] [address] documented in this encounter Visit Diagnoses Diagnosis [...] documented as of this encounter Care Teams Broadcast News Producer Relationship Specialty Start Date End Date Shannan Vieyra MD PCP - General 04/08/09 03/15/19 documented as of this encounter
--- OUTSIDE RECORDS SUMMARY | 2024-10-18 21:50 | XMS_ITS | Encounter Summary ---
Author Organization [facility] Address [address] [place] [address] Care Team Providers Care Refinery Process Engineer Name Role Phone Comfort Zelaya NP Primary Care Provider [phone] Reason for Referral * Radiology Services (Routine/Next Available) - Authorization Not Required Specialty Diagnoses / Procedures Referred By Contac t Referred To Contact Diagnoses Mass of left breast, unspecified quadrant Procedures US BREAST LIMITED LEFT US BREAST DIAGNOSTIC Denice Martinez MD Phone: tel: fax: [facility] Referral ID Status Reason Start Date Expiration Date Visits Requested Visits Authorized [id number] Authorization Not Required 2 1 1 Reason for Visit * Radiology Services (Routine/Next Available) - Authorization Not Required Specialty Diagnoses / Procedures [facility] Referred To Contact Diagnoses Mass of left breast, unspecified quadrant Procedures US BREAST LIMITED LEFT US BREAST DIAGNOSTIC Denice Martinez MD Phone: tel: fax: [facility] Referral ID Status Reason Start Date Expiration Date Visits Requested Visits Authorized [id number] Authorization Not Required 2 1 1 Encounter Details Date Type Department Care Team (Latest Contact Info) Description 08/17/2022 13:50 EST - 08/17/2022 23:59 EST Hospital Encounter [facility] Breast Imaging Ultrasound - [facility] [address] [place], [place] [address] Mass of left breast, unspecified quadrant Discharge [...] of any clinically suspicious palpable finding. The national sales director discussed the radiologist's interpretation and follow [...] quadrant documented in this encounter Care Teams Refinery Process Engineer Relationship Specialty Start Date End Date Comfort Zelaya NP [address] [place] [phone] PCP - General Family Medicine - Primary Care 03/08/22 documented as of this encounter
--- OUTSIDE RECORDS SUMMARY | 2024-10-18 21:50 | XMS_ITS | Encounter Summary ---
Author Organization [facility] Address [address] [place] [address] Care Team Providers Care Spool Winder Name Role Phone Comfort Zelaya NP Primary Care Provider [phone] Reason for Visit * Reason Comments Well Woman Exam Encounter Details Date Type Department Care Team (Late st Contact Info) Description 08/27/2022 15:30 EST Office Visit [facility] OBGYN Services - [address] [address] Denice Martinez MD [address] [place] [address], [address] [place] [phone] History of Graves' disease (Primary [...] NEURO: AAO x3, normal mood and affect. Upkeep Mechanic: BREAST: No palpable masses or tenderness. No [...] 0.47 - 4.68 mIU/L 08/27/2022 18:08 EST [facility] Blood VENOUS BLOOD / Unknown Venipuncture / Unknown 08/27/2022 16:07 EST 08/27/2022 16:38 EST Narrative [facility] - 08/27/2022 18:08 EST The results of this assay can be falsely lowered due to the consumption of Biotin. us Denice Martinez MD CHEMISTRY & BLOOD GAS ORDERA BLES Final Result [facility] [address] [place] [address] * PAP TEST (10/19/2019 0:00 EST) Papanicolaou [...] documented as of this encounter Care Teams Spool Winder Relationship Specialty Start Date End Date Comfort Zelaya NP [address] [place] [phone] PCP - General Family Medicine - Primary Care 03/08/22 documented as of this encounter
--- OUTSIDE RECORDS SUMMARY | 2024-10-18 21:50 | XMS_ITS | Encounter Summary ---
Author Organization [facility] Address [address] [place] [address] Care Team Providers Care Cable Engineer Name Role Phone Comfort Zelaya NP Primary Care Provider [phone] Encounter Details Date Type Department Care Team (Late st Contact Info) Description 04/25/2022 9:45 EDT Phlebotomy Only [facility] 2 Phlebotomy [address] [place] [address] Snowboarder, Acc Phlebotomy Hypothyroidism, iatrogenic Social History Tobacco [...] 97 - 169 ng/dL 04/25/2022 12:01 EDT [facility] Blood VENOUS BLOOD / Unknown Venipuncture / Unknown 04/25/2022 9:49 EDT 04/25/2022 9:51 EDT Comfort Zelaya ARCHITECTURAL SALES CONSULTANT CHEMISTRY & BLOOD GAS ORDERABLES Final Result Performing Organization Address City/[facility]/ZIP Co de Phone Number [facility] [address] [place] [address] * T4 FREE (04/25/2022 9:49 EDT) Pathologist [facility] T4, Free 1.8 0.8 - 2.2 ng/dL 04/25/2022 11:21 EDT [facility] Blood VENOUS BLOOD / Unknown Venipuncture / Unknown 04/25/2022 9:49 EDT 04/25/2022 9:51 EDT Comfort Zelaya ARCHITECTURAL SALES CONSULTANT CHEMISTRY & BLOOD GAS ORDERABLES Final Result [facility] [address] [place] [address] * (ABNORMAL) THYROID CASCADE (04/25/2022 9:49 EDT) TSH <0.02(L) 0.47 - 4.68 mIU/L 04/25/2022 10:46 EDT [facility] Blood VENOUS BLOOD / Unknown Venipuncture / Unknown 04/25/2022 9:49 EDT 04/25/2022 9:51 EDT Narrative [facility] - 04/25/2022 10:46 EDT NOTE: The results of this assay can be falsely lowered due to the consumption of Biotin. us Comfort Zelaya NP CHEMISTRY & BLOOD GAS ORDERABLES Final Result Performing Organization Address City/State/[facility] Co de Phone Number [facility] [address] [place] [address] documented in this encounter Visit Diagnoses Diagnosis Hypothyroidism, iatrogenic Other iatrogenic hypothyroidism documented in this encounter Care Teams Cable Engineer Relationship Specialty Start Date End Date Comfort Zelaya NP [address] [place] [phone] PCP - General Family Medicine - Primary Care 03/08/22 documented as of this encounter
--- OUTSIDE RECORDS SUMMARY | 2024-10-18 21:50 | XMS_ITS | Encounter Summary ---
Author Organization [facility] Address [address] [place] [address] Care Team Providers Care Environmental Health And Safety Intern Name Role Phone Leida Cerda PA-C Primary Care Provi melvin Comfort Zelaya NP Primary Care Provider [phone] Reason for Visit * Reason Onset Date Comments Medication Reaction 04/14/2020 Abdominal Pain 04/14/2020 Diarrhea 04/14/2020 Encounter Details Date Type Department Care Team (Late st Contact Info) Description 04/14/[address] [address] Leida Cerda PA-C 402 [facility] [address] [place] [address] Medication Reaction; Abdominal Pain; Diarrhea [...] filedocumented in this encounter Care Teams Environmental Health And Safety Intern Relationship Specialty Start Date End Date Leida Cerda PA-C PCP - General 03/16/19 03/07/22 Comfort Zelaya NP [address] [place] [phone] PCP - General Family Medicine - Primary Care 03/08/22 documented as of this encounter
--- OUTSIDE RECORDS SUMMARY | 2024-10-18 21:50 | XMS_ITS | Encounter Summary ---
Author Organization [facility] [place] [facility] Address [address] [place] [address] Care Team Providers Care Special Forces Weapons Sergeant Name Role Phone Shannan Vieyra MD Primary Care Provider Unavail able Encounter Details Date Type Department Care Team (Late st Contact Info) Description 07/31/2018 Results Only [facility] Family Medicine - [place] [phone] Leida Cerda PA-C [address] [place] [address] [address] [place], [place] [phone] Social History Tobacco Use Types Packs/Day Years [...] 0.8 - 2.2 ng/dl 07/31/2018 15:43 EDT [facility] BLOOD SPECIMEN / Unknown 07/31/2018 10:18 EDT 07/31/2018 14:05 EDT us Leida Cerda PA-C CHEMISTRY & BLOOD G ORDERABLES Final Result [facility] [address] [place] [address] documented in this encounter Visit Diagnoses Not on filedocumented in this encounter Care Teams Special Forces Weapons Sergeant Relationship Specialty Start Date End Date Shannan Vieyra MD PCP - General 04/08/09 03/15/19 documented as of this encounter
--- OUTSIDE RECORDS SUMMARY | 2024-10-18 21:50 | XMS_ITS | Encounter Summary ---
Author Organization [facility] Address [address] [place] [address] Care Team Providers Care Buffing Machine Tender Name Role Phone Leida Cerda PA-C Primary Care Provi melvin Comfort Zelaya NP Primary Care Provider [phone] Reason for Visit * Reason Onset Date Comments Medications Refill 04/14/2020 Encounter Details Date Type Department Care Team (Late st Contact Info) Description 04/14/2020 Refill [facility] Medicine [address] [phone] Leida Cerda PA-C 402 [facility] [address] [place], [place] [phone] Medications Refill Social History Tobacco Use Types [...] mL injection [Leida Cerda PA-C] Preferred pharmacy: [id number] [facility] documented in this encounter Plan [...] documented as of this encounter Care Teams Buffing Machine Tender Relationship Specialty Start Date End Date Leida Cerda PA-C PCP - General 03/16/19 03/07/22 Comfort Zelaya NP [address] [place] [phone] PCP - General Family Medicine - Primary Care 03/08/22 documented as of this encounter
--- OUTSIDE RECORDS SUMMARY | 2024-10-18 21:50 | XMS_ITS | Encounter Summary ---
Author Organization [facility] Address [address] [place] [address] Care Team Providers Care Electrician Yard Name Role Phone Comfort Zelaya NP Primary Care Provider [phone] Reason for Visit * Reason Onset Date Comments Appointment Related 07/28/2022 Encounter Details Date Type Department Care Team (Late st Contact Info) Description 07/28/2022 Telephone [facility] Breast [place] [address] Mitzi Prado Appointment Related Social History Tobacco [...] message to call back breast imaging at [phone] documented in this encounter Plan of Treatment Not on file documented as of this encounter Visit Diagnoses Not on filedocumented in this encounter Care Teams Electrician Yard Relationship Specialty Start Date End Date Comfort Zelaya NP [address] [place] [phone] PCP - General Family Medicine - Primary Care 03/08/22 documented as of this encounter
--- OUTSIDE RECORDS SUMMARY | 2024-10-18 21:50 | XMS_ITS | Encounter Summary ---
Author Organization [facility] Address [address] [place] [address] Care Team Providers Care Leak Patcher Name Role Phone Shannan Vieyra MD Primary Care Provider Unavail able Reason for Visit * Reason Comments Follow-up BP follow up; Flu Vaccine declinse flu vaccine Encounter Details Date Type Department Care Team (Late st Contact Info) Description 09/05/2018 9:30 EST Office Visit [facility] Medicine [place] [phone] Leida Cerda PA-C 402 [facility] [address] [place], [place] [phone] Elevated blood pressure reading (Primary Dx); Bee [...] Notes * Leida Cerda PA - 09/05/2018 0967 EST Subjective: Patient ID: Doris Kerr is an 38 y.o. female. Chief Complaint Patient presents with ??? Follow-up BP follow up; ??? Flu Vaccine declinse flu vaccine HPI BP f/u as it was high at last visit. Had it checked at the furniture restorer office since then and it was ok. Feels well, no chest pain, racing, palpitations, SOB. Eats clean with no added salt. Recently adjusted [place] Thyroid and will re check TSH in [...] documented as of this encounter Care Teams Leak Patcher Relationship Specialty Start Date End Date Shannan Vieyra MD PCP - General 04/08/09 03/15/19 documented as of this encounter
--- OUTSIDE RECORDS SUMMARY | 2024-10-18 21:50 | XMS_ITS | Encounter Summary ---
Author Organization [facility] Address [address] [place] [address] Care Team Providers Care Support Coordinator Name Role Phone Comfort Zelaya NP Primary Care Provider [phone] Encounter Details Date Type Department Care Team (Late st Contact Info) Description 05/18/2023 Lab Requisition [facility] Pathology & Laboratory Medicine - [address] [address] Outr Resulting Lab, Provider Social History Tobacco [...] 2.8 - 5.3 pg/mL 05/18/2023 22:11 EDT [facility] Blood VENOUS BLOOD / Unknown 05/18/2023 11:40 EDT 05/18/2023 21:35 EDT us Provider Outr Resulting Lab CHEMISTRY & BLOOD GA S ORDERABLES Final Result Performing Organization Address City/State/[facility] Co de Phone Number [facility] [address] [place] [address] documented in this encounter Visit Diagnoses Not on filedocumented in this encounter Care Teams Support Coordinator Relationship Specialty Start Date End Date Comfort Zelaya NP [address] [place] [phone] PCP - General Family Medicine - Primary Care 03/08/22 documented as of this encounter
--- OUTSIDE RECORDS SUMMARY | 2024-10-18 21:50 | XMS_ITS | Encounter Summary ---
Author Organization [facility] Address [address] [place] [address] Care Team Providers Care Boat Patcher Plastic Name Role Phone Comfort Zelaya NP Primary Care Provider [phone] Encounter Details Date Type Department Care Team (Late st Contact Info) Description 08/24/2024 Lab Requisition [facility] Pathology & Laboratory Medicine - [address] [address] Outr Resulting Lab, Provider Social History Tobacco Use Types Packs/Day Years Used Date Smoking Tobacco: Never Smokeless Tobacco: Never Alcohol Use Standard Drinks/Week Comments No 0 (1 standard drink = 0.6 oz pur e alcohol) [facility] Utilities Answer Date Recorded In [...] Comments T3, TOTAL Routine 08/23/2024 16:15 EST documented in this encounter Results * T3, TOTAL (08/23/2024 16:15 EST) T3, Total 131 97 - 169 ng/dL 08/24/2024 17:48 EST [facility] Blood VENOUS BLOOD / Unknown 08/23/2024 16:15 EST 08/24/2024 16:53 EST us Provider Outr Resulting Lab CHEMISTRY & BLOOD GA S ORDERABLES Final Result [facility] [address] [place], [place] [phone] documented in this encounter Visit Diagnoses Not on filedocumented in this encounter Care Teams Boat Patcher Plastic Relationship Specialty Start Date End Date Comfort Zelaya NP [address] [place] [phone] PCP - General Family Medicine - Primary Care 03/08/22 documented as of this encounter
--- OUTSIDE RECORDS SUMMARY | 2024-10-18 21:50 | XMS_ITS | Encounter Summary ---
Author Organization [facility] Address [address] [place] [address] Care Team Providers Care Director Staffing Name Role Phone Leida Man PA-C Primary Care Provi melvin Glynn Salazar NP Primary Care Provider [phone] Reason for Visit * Reason Onset Date Comments Medications Refill 08/10/2021 Medications Refill 03/26/2022 Encounter Details Date Type Department Care Team (Late st Contact Info) Description 08/10/2021 Telephone [facility] Family Medicine [address] [address] Leida Man PA-C 402 [facility] [address] [place], [place] [phone] Medications Refill; Medications Refill Social History Tobacco [...] Encounter - Alexandrea Dwyer RN - 08/10/2021 7105 EDT Pt is due for Thyroid cascade [...] 03/26/2022 documented in this encounter Care Teams Director Staffing Relationship Specialty Start Date End Date Leida Man PA-C PCP - General 03/16/19 03/07/22 Glynn Salazar NP [address] [place] [phone] PCP - General Family Medicine - Primary Care 03/08/22 documented as of this encounter
--- OUTSIDE RECORDS SUMMARY | 2024-10-18 21:50 | XMS_ITS | Encounter Summary ---
Author Organization [facility] Address [address] [place] [address] Care Team Providers Care Malware Analyst Name Role Phone Comfort Zelaya NP Primary Care Provider [phone] Encounter Details Date Type Department Care Team (Late st Contact Info) Description 07/03/2024 Lab Requisition [facility] Pathology & Laboratory Medicine - [address] [address] Outr Resulting Lab, Provider Social History Tobacco [...] ng/dL 07/03/2024 17:59 EDT [facility] Blood VENOUS BLOOD / Unknown 07/02/2024 13:40 EDT 07/03/2024 17:09 EDT us Provider Outr Resulting Lab CHEMISTRY & BLOOD GA S ORDERABLES Final Result [facility] [address] [place] [address] documented in this encounter Visit Diagnoses Not on filedocumented in this encounter Care Teams Malware Analyst Relationship Specialty Start Date End Date Comfort Zelaya NP [address] [place] [phone] PCP - General Family Medicine - Primary Care 03/08/22 documented as of this encounter
--- OUTSIDE RECORDS SUMMARY | 2024-10-18 21:50 | XMS_ITS | Encounter Summary ---
Author Organization [facility] Address [address] [place] [address] Care Team Providers Care Cane Packer Name Role Phone Comfort Zelaya NP Primary Care Provider [phone] Encounter Details Date Type Department Care Team (Late st Contact Info) Description 09/01/2022 Orders Only [facility] OBGYN Services - [address] [address] Comfort Garcia RN Hypothyroidism, unspecified type (Primary [...] Primary documented in this encounter Care Teams Cane Packer Relationship Specialty Start Date End Date Comfort Zelaya NP [address] [place] [phone] PCP - General Family Medicine - Primary Care 03/08/22 documented as of this encounter
--- OUTSIDE RECORDS SUMMARY | 2024-10-18 21:50 | XMS_ITS | Encounter Summary ---
Author Organization [facility] Address [address] [place] [address] Care Team Providers Care Sanding Supervisor Name Role Phone Comfort Zelaya NP Primary Care Provider [phone] Encounter Details Date Type Department Care Team (Late st Contact Info) Description 07/07/2023 Lab Requisition [facility] Medicine - [address] [address] Outr Resulting Lab, Provider Social History Tobacco [...] 5.3 pg/mL 07/07/2023 18:10 EDT [facility] Blood VENOUS BLOOD / Unknown 07/06/2023 15:25 EDT 07/07/2023 17:36 EDT us Provider Outr Resulting Lab CHEMISTRY & BLOOD GA S ORDERABLES Final Result Performing Organization Address City/State/[facility] Co de Phone Number [facility] [address] [place] [address] documented in this encounter Visit Diagnoses Not on filedocumented in this encounter Care Teams Sanding Supervisor Relationship Specialty Start Date End Date Comfort Zelaya NP [address] [place] [phone] PCP - General Family Medicine - Primary Care 03/08/22 documented as of this encounter
--- OUTSIDE RECORDS SUMMARY | 2024-10-18 21:50 | XMS_ITS | Encounter Summary ---
Author Organization [facility] Address [address] [place] [address] Care Team Providers Care Cube Cutter Name Role Phone Leida Cerda PA-C Primary [...] Expiration Date V isits Requested Visits Authorized [id number] Specialty Report Received 04/09/2021 1 1 Reason for Visit * Radiology Services (Routine) - Specialty Report Received Specialty Diagnoses / Procedures Referred By Julianne gallo Referred To Contact Diagnoses Injury of left wrist, initial encounter Procedures XR WRIST LEFT 3 OR MORE VIEWS Leida Cerda PA-C Phone: tel: fax: Referral ID Status Reason Start Date Expiration Date V isits Requested Visits Authorized [id number] Specialty Report Received 04/09/2021 1 1 Encounter Details Date Type Department Care Team (Latest Contact Info) Description 04/10/2021 15:58 EDT - 04/10/2021 23:59 EDT Hospital Encounter [facility] X[facility] [address] [place] [address] Injury of left wrist, initial [...] encounter documented in this encounter Care Teams Cube Cutter Relationship Specialty Start Date End Date Leida Cerda PA-C PCP - General 03/16/19 03/07/22 documented as of this encounter
--- OUTSIDE RECORDS SUMMARY | 2024-10-18 21:50 | XMS_ITS | Encounter Summary ---
Author Organization [facility] Address [address] [place] [address] Care Team Providers Care Head Of Drama Name Role Phone Leida Cerda PA-C Primary Care Provi melvin Encounter Details Date Type Department Care Team (Late st Contact Info) Description 10/24/2019 Abstract [facility] Medicine [address] [phone] Leida Cerda PA-C 402 [facility] [address] [place] [address] Social History Tobacco Use Types [...] on filedocumented in this encounter Care Teams Head Of Drama Relationship Specialty Start Date End Date Leida Cerda PA-C PCP - General 03/16/19 03/07/22 documented as of this encounter
--- OUTSIDE RECORDS SUMMARY | 2024-10-18 21:50 | XMS_ITS | Encounter Summary ---
Author Organization [facility] Address [address] [place] [address] Care Team Providers Care Life Enrichment Specialist Name Role Phone Comfort Zelaya NP Primary Care Provider [phone] Reason for Visit * Reason Onset Date Comments Appointment Related 07/28/2022 Encounter Details Date Type Department Care Team (Late st Contact Info) Description 07/28/2022 Telephone [facility] Breast Imaging Mammography - [address] [address] Alisa Robb Appointment Related Social History Tobacco [...] on filedocumented in this encounter Care Teams Life Enrichment Specialist Relationship Specialty Start Date End Date Comfort Zelaya NP [address] [place] [phone] PCP - General Family Medicine - Primary Care 03/08/22 documented as of this encounter
--- OUTSIDE RECORDS SUMMARY | 2024-10-18 21:50 | XMS_ITS | Encounter Summary ---
Author Organization [facility] Address [address] [place] [address] Care Team Providers Care Mash Filter Cloth Changer Name Role Phone Leida Cerda PA-C Primary Care Provi melvin Reason for Visit * Reason Onset Date Comments Joint Swelling 04/11/2020 Encounter Details Date Type Department Care Team (Late st Contact Info) Description 04/11/[address] [address] Imani Owens MD [address] [place] [phone] Joint Swelling Social History Tobacco Use [...] on filedocumented in this encounter Care Teams Mash Filter Cloth Changer Relationship Specialty Start Date End Date Leida Cerda PA-C PCP - General 03/16/19 03/07/22 documented as of this encounter
--- OUTSIDE RECORDS SUMMARY | 2024-10-18 21:50 | XMS_ITS | Encounter Summary ---
Author Organization [facility] Address [address] [place] [address] Care Team Providers Care Grinder Lap Name Role Phone Comfort Zelaya NP Primary Care Provider [phone] Encounter Details Date Type Department Care Team (Late st Contact Info) Description 04/25/2023 Orders Only [facility] OBGYN Services - [address] [address] Comfort Garcia, DAXA Bee sting (Primary Dx) [...] documented as of this encounter Care Teams Grinder Lap Relationship Specialty Start Date End Date Comfort Zelaya NP [address] [place] [phone] PCP - General Family Medicine - Primary Care 03/08/22 documented as of this encounter
--- OUTSIDE RECORDS SUMMARY | 2024-10-18 21:50 | XMS_ITS | Encounter Summary ---
Author Organization [facility] Address [address] [place] [address] Care Team Providers Care Wet Silk Hanger Name Role Phone Comfort Zelaya NP Primary Care Provider [phone] Encounter Details Date Type Department Care Team (Late st Contact Info) Description 08/27/2022 16:00 EST Phlebotomy Only [facility] ED Center 2 Phlebotomy [address] [place] [address] Fiberglass Boat Parts Finisher, Acc Phlebotomy History of Graves' disease Social [...] - 4.68 mIU/L 08/27/2022 18:08 EST [facility] Blood VENOUS BLOOD / Unknown Venipuncture / Unknown 08/27/2022 16:07 EST 08/27/2022 16:38 EST Narrative [facility] - 08/27/2022 18:08 EST The results of this assay can be falsely lowered due to the consumption of Biotin. us Denice Martinez MD CHEMISTRY & BLOOD GAS ORDERA BLES Final Result [facility] [address] [place] [address] documented in this encounter Visit Diagnoses Diagnosis History of Graves' disease Personal history of other endocrine, metabolic, and immunity disorders documented in this encounter Care Teams Wet Silk Hanger Relationship Specialty Start Date End Date Comfort Zelaya NP [address] [place] [phone] PCP - General Family Medicine - Primary Care 03/08/22 documented as of this encounter
--- OUTSIDE RECORDS SUMMARY | 2024-10-18 21:51 | XMS_ITS | Encounter Summary ---
Author Organization [facility] Address [address] [place] [address] Care Team Providers Care Collar Tacker Name Role Phone Shannan Vieyra MD Primary Care Provider Unavail able Reason for Visit * Reason Onset Date Comments Medications Refill 12/01/2015 Encounter Details Date Type Department Care Team (Late st Contact Info) Description 12/01/2015 Refill [facility] Medicine [address] [address] Shannan Vieyra MD Medications Refill Social History [...] one tab by mouth daily;dispense;90;rf;4 Pharmacy: [facility] Last Refill Date: 09.04.14 Last Visit [...] documented as of this encounter Care Teams Collar Tacker Relationship Specialty Start Date End Date Shannan Vieyra MD PCP - General 04/08/09 03/15/19 documented as of this encounter
--- OUTSIDE RECORDS SUMMARY | 2024-10-18 21:51 | XMS_ITS | Encounter Summary ---
Author Organization [facility] Address [address] [place] [address] Care Team Providers Care Industrial Hygenist Name Role Phone Shannan Vieyra MD Primary Care Provider Unavail able Reason for Visit * Reason Onset Date Comments Tick Removal 02/21/2016 Encounter Details Date Type Department Care Team (Late st Contact Info) Description 02/21/2016 Telephone [facility] Family Medicine [address] [phone] Pranay Cardenas MD [address] [place] [phone] Tick Removal Social History Tobacco Use Types [...] Encounter - Pranay Cardenas MD - 02/21/2016 322 EDT Called by patient regarding tick bite. [...] on filedocumented in this encounter Care Teams Industrial Hygenist Relationship Specialty Start Date End Date Shannan Vieyra MD PCP - General 04/08/09 03/15/19 documented as of this encounter
--- OUTSIDE RECORDS SUMMARY | 2024-10-18 21:51 | XMS_ITS | Encounter Summary ---
Author Organization [facility] Address [address] [place] [address] Care Team Providers Care Vegetable Tier Name Role Phone Shannan Vieyra MD Primary [...] 1:50 EST - 10/27/2013 6:03 EST Emergency [facility] Emergency Department - Main [address] [phone] Leida Isaacs PA-C [address] [place] [phone] Keily Mosley PA-C [address] [place] [phone] Emergency, MD Keli Abdominal pain (Primary [...] Everywhere. * ABDOMINAL PAIN: AFTER YOUR VISIT (ARGENTINE) documented in this encounter Medications at Time [...] Yes Urine specimen (specimen) 10/27/2013 5:15 EST [facility] Andrei [facility] PA-C POINT OF CARE TEST ORDE RABEasy-Point Final Result * (ABNORMAL) POCT URINE DIPSTICK (10/27/2013 5:13 EST) Color YELLOW [facility] Clarity, UA Clear [facility] Glucose Neg Neg [facility] Bilirubin Neg Neg [facility] Ketones Neg Neg [facility] Specific Trumann 1.015 1.001 - 1.035 [facility] Blood Neg Neg [facility] pH 6.5 4.6 - 8.0 [facility] Protein Neg Neg [facility] Urobilinogen 0.2 0.2 - 1.0 E.U./dl [facility] Nitrite Neg Neg [facility] Leuk Esterase Trace(A) Neg KATHYA [facility] stitching department supervisor ID [id number] [facility] Comment:Test performed at Em ergency Department Urine specimen (specimen) 10/27/2013 5:13 EST 10/27/2013 5:14 EST [facility] PA-C POINT OF CARE TEST ORDE RABLES Final Result [facility] [address] [place] [address] * ED/WICC ADD-ON (10/27/2013 4:29 EST) Tests to be added BUN AND CREATININE ,ELECTROLY VICTORIANO,GLUCOS E, SERUM,YIN GRAM WITH DIFFERENTI AL,LIPASE, LIVER PANEL [facility] Number for problems [id number] (ED) [facility] 10/27/2013 4:29 EST 10/27/2013 4:29 EST Leida Andrei Isaacs PA-C HEMATOLOGY & PF4 ORDERA BLES Final Result Performing Organization Address City/[facility]/ZIP Co de Phone Number [facility] [address] [place] [address] * DIFFERENTIAL (10/27/2013 2:19 EST) % Neutrophils [...] ORDERA BLES Final Result Performing Organization Address City/[facility]/ZIP Co de Phone Number [facility] [address] [place] [address] * HEMAGRAM (10/27/2013 2:19 EST) WBC 8.16 [...] BLES Final Result Performing Organization Address [facility] de Phone Number [facility] [address] [place] [address] * GLUCOSE, SERUM (10/27/2013 2:19 EST) Pathologist [facility] Glucose, Serum 99 70 - 100 mg/dl [facility] 10/27/2013 2:19 EST 10/27/2013 2:31 EST Leida GOMEZC CHEMISTRY & BLOOD GAS O RDERABLES Final Result Performing Organization Address [facility] de Phone Number [facility] [address] [place] [address] * (ABNORMAL) ELECTROLYTES (10/27/2013 2:19 EST) Pathologist [facility] Sodium 135(L) 136 - 145 mEq/L [facility] Potassium 4.2 3.5 - 5.0 mEq/L [facility] Chloride 98 96 - 110 mEq/L [facility] CO2 29 24 - 32 mEq/L [facility] 10/27/2013 2:19 EST 10/27/2013 2:31 EST Leida Andrei Isaacs PA-C CHEMISTRY & BLOOD GAS O RDERABLES Final Result Performing Organization Address City/[facility]/ZIP Co de Phone Number [facility] [address] [place] [address] * (ABNORMAL) LIVER FUNCTION TESTS (10/27/2013 2:19 [...] O RDERABLES Final Result Performing Organization Address [facility] Co de Phone Number [facility] [address] [place] [address] * LIPASE (10/27/2013 2:19 EST) Lipase 156 0 - 250 U/L [facility] 10/27/2013 2:19 EST 10/27/2013 2:31 EST Leida Andrei Isaacs PA-C CHEMISTRY & BLOOD GAS O RDERABLES Final Result Performing Organization Address [facility]/ZIP Co de Phone Number [facility] [address] [place] [address] * CREATININE (10/27/2013 2:19 EST) Creatinine 0.69 0.52 - 1.04 mg/dl [facility] GFR, Calculated >60 >60 ml/min/1.7 3m2 [facility] 10/27/2013 2:19 EST 10/27/2013 2:31 EST Leida B Uberale PA-C CHEMISTRY & BLOOD GAS O RDERABLES Final Result Performing Organization Address [facility] Co de Phone Number [facility] [address] [place] [address] * BUN (10/27/2013 2:19 EST) BUN 16 10 - 26 mg/dl [facility] 10/27/2013 2:19 EST 10/27/2013 2:31 EST [facility] B Uberale PA-C CHEMISTRY & BLOOD GAS O RDERABLES Final Result Performing Organization Address [facility] de Phone Number [facility] [address] [place] [address] * HOLD SST (10/27/2013 2:19 EST) Hold SST Hold for further testing. Specimen will be held for 5 days. [facility] Blood specimen (specimen) 10/27/2013 2:19 EST 10/27/2013 2:31 EST Leida E-Generator-C LAB INFO SERVICE AND RAMIREZ PPORT & PHONE RESULT Final Result Performing Organization Address [facility] de Phone Number [facility] [address] [place] [address] * HOLD PURPLE TOP (10/27/2013 2:19 EST) Hold Purple Top EDTA for hematology will be discarded after 48 hours, differential not available after 12 hours. [facility] Blood specimen (specimen) 10/27/2013 2:19 EST 10/27/2013 2:31 EST Leida B Governale PA-C LAB INFO SERVICE AND RAMIREZ PPORT & PHONE RESULT Final Result [facility] [address] [place] [address] documented in this encounter Visit Diagnoses Diagnosis [...] RN) documented in this encounter Care Teams Vegetable Tier Relationship Specialty Start Date End Date Shannan Vieyra MD PCP - General 04/08/09 03/15/19 documented as of this encounter
--- OUTSIDE RECORDS SUMMARY | 2024-10-18 21:51 | XMS_ITS | Encounter Summary ---
Author Organization [facility] Address [address] [place] [address] Care Team Providers Care Water Treatment Technician Name Role Phone Shannan Vieyra MD Primary Care Provider Unavail able Reason for Visit * Reason Onset Date Comments Appointment Related 04/17/2014 Encounter Details Date Type Department Care Team (Late st Contact Info) Description 04/17/[address] [phone] Shannan Vieyra MD Appointment Related Social History [...] filedocumented in this encounter Care Teams Water Treatment Technician Relationship Specialty Start Date End Date Shannan Vieyra MD PCP - General 04/08/09 03/15/19 documented as of this encounter
--- OUTSIDE RECORDS SUMMARY | 2024-10-18 21:51 | XMS_ITS | Encounter Summary ---
Author Organization [facility] Address [address] [place] [address] Care Team Providers Care Schedule Announcer Name Role Phone Shannan Vieyra MD Primary Care Provider Leida Robledo PA-C Primary Care Provi melvin Comfort Zelaya NP Primary Care Provider [phone] Reason for Visit * Reason Onset Date Comments Referral Request 02/06/2014 Encounter Details Date Type Department Care Team (Late st Contact Info) Description 02/06/2014 Telephone [facility] Family Medicine - [address] [phone] Shannan Vieyra MD Referral Request Social History [...] on filedocumented in this encounter Care Teams Schedule Announcer Relationship Specialty Start Date End Date Shannan Vieyra MD PCP - General 04/08/09 03/15/19 Leida Cerda PA-C PCP - General 03/16/19 03/07/22 Comfort Zelaya NP [address] [place] [phone] PCP - General Family Medicine - Primary Care 03/08/22 documented as of this encounter
--- OUTSIDE RECORDS SUMMARY | 2024-10-18 21:51 | XMS_ITS | Encounter Summary ---
Author Organization [facility] Address [address] [place] [address] Care Team Providers Care Plant Clerk Name Role Phone Shannan Vieyra MD Primary Care Provider Unavail able Encounter Details Date Type Department Care Team (Late st Contact Info) Description 08/24/2016 Results Only [facility] Family Medicine - [place] [phone] Leida Cerda PA-C 402 [facility] [address] [place], [place] [address] Social History Tobacco Use Types Packs/Day Years [...] 0.8 - 1.8 ng/dl 08/24/2016 21:51 EST [facility] BLOOD SPECIMEN / Unknown 08/24/2016 14:51 EST 08/24/2016 19:34 EST us Leida Cerda PA-C CHEMISTRY & BLOOD G ORDERABLES Final Result [facility] [address] [place] [address] documented in this encounter Visit Diagnoses Not on filedocumented in this encounter Care Teams Plant Clerk Relationship Specialty Start Date End Date Shannan Vieyra MD PCP - General 04/08/09 03/15/19 documented as of this encounter
--- OUTSIDE RECORDS SUMMARY | 2024-10-18 21:51 | XMS_ITS | Encounter Summary ---
Author Organization [facility] Address [address] [place] [address] Care Team Providers Care Mash Filter Operator Name Role Phone Shannan Vieyra MD Primary Care Provider Unavail able Reason for Visit * Reason Onset Date Comments Medications Refill 08/20/2014 Encounter Details Date Type Department Care Team (Late st Contact Info) Description 08/20/2014 Refill [facility] Medicine [address] [address] Shannan Vieyra MD Medications Refill Social History [...] October 2012. Message will be forwarded to [facility] to schedule appointment for blood draw prior to receiving medication order. Dionna Caballero RN * Telephone Encounter - Shikha Garza - 08/20/2014 1540 EST Medication(s) Requested: Lisinopril-Hydrochlorothiazide Pharmacy: [place] Last Refill Date: 02/20/14 #90 No refills Last Visit Date: 06/14/12 Next Visit Date: 09/04/2014 Is patient out of medication? Yes Medication(s) Requested: [place] Thyroid 15 mg Last Refill Date: 02/20/14 #90 No refills Is patient out of medication? Yes Medication(s) Requested: [place] Thyroid 90 mg Last Refill Date: 02/20/14 #90 No refills Is patient out of medication? Yes Shikha Garza 08/20/2014 15:45 documented in this encounter Plan of Treatment Not on file documented as of this encounter Results * (ABNORMAL) THYROID CASCADE (09/02/2014 15:45 EST) TSH 25.78(H) 0.35 - 5.00 uIU/ml 09/02/2014 20:23 EST [facility] Comment: TSH cascade is not recommended for patients in which pituitary or hypothalamic disorders are suspected. Blood specimen (specimen) BLOOD SPECIMEN / Unknown 09/02/2014 15:45 EST 09/02/2014 18:01 EST us Shannan Vieyra MD CHEMISTRY & BLOOD GAS ORDERABL ES Final Result [facility] [address] [place] [address] documented in this encounter Visit Diagnoses Diagnosis [...] documented as of this encounter Care Teams Mash Filter Operator Relationship Specialty Start Date End Date Shannan Vieyra MD PCP - General 04/08/09 03/15/19 documented as of this encounter
--- OUTSIDE RECORDS SUMMARY | 2024-10-18 21:51 | XMS_ITS | Encounter Summary ---
Author Organization [facility] Address [address] [place] [address] Care Team Providers Care Special Education Professional Name Role Phone Shannan Vieyra MD Primary Care Provider Unavail able Reason for Visit * Reason Onset Date Comments Medications Refill 02/20/2014 Encounter Details Date Type Department Care Team (Late st Contact Info) Description 02/20/[address] [phone] Shannan Vieyra MD Medications Refill Social History [...] as of this encounter Care Teams Special Education Professional Relationship Specialty Start Date End Date Shannan Vieyra MD PCP - General 04/08/09 03/15/19 documented as of this encounter
--- OUTSIDE RECORDS SUMMARY | 2024-10-18 21:51 | XMS_ITS | Encounter Summary ---
Author Organization [facility] Address [address] [place] [address] Care Team Providers Care Basket Assembler Name Role Phone Shannan Vieyra MD Primary Care Provider Unavail able Reason for Visit * Reason Comments Tick Removal Follow up to Tick bi te, and treatment Encounter Details Date Type Department Care Team (Late st Contact Info) Description 02/26/2016 14:00 EDT Office Visit [facility] Family Medicine [address] [address] Pranay Vazquez NP [address] [place] [phone] Erythema migrans (Lyme disease) (Primary Dx) [...] one dose she took a few days ago.Mccool wierd the last time she took it [...] documented as of this encounter Care Teams Basket Assembler Relationship Specialty Start Date End Date Shannan Vieyra MD PCP - General 04/08/09 03/15/19 documented as of this encounter
--- OUTSIDE RECORDS SUMMARY | 2024-10-18 21:51 | XMS_ITS | Encounter Summary ---
Author Organization [facility] Address [address] [place] [address] Care Team Providers Care Business Systems Analyst Name Role Phone Shannan Vieyra MD Primary Care Provider Unavail able Reason for Visit * Reason Comments Follow-up allergic reaction Encounter Details Date Type Department Care Team (Late st Contact Info) Description 05/14/2014 14:45 EDT Office Visit [facility] General Surgery - [address] [phone] Ashwin Maradiaga MD [address] [place] [address], [address] [place] [phone] S/P laparoscopic cholecystectomy (Primary Dx) [...] status documented in this encounter Care Teams Business Systems Analyst Relationship Specialty Start Date End Date Shannan Vieyra MD PCP - General 04/08/09 03/15/19 documented as of this encounter
--- OUTSIDE RECORDS SUMMARY | 2024-10-18 21:51 | XMS_ITS | Encounter Summary ---
Author Organization [facility] Address [address] [place] [address] Care Team Providers Care Medical Affairs Specialist Name Role Phone Shannan Vieyra MD Primary Care Provider Unavail able Encounter Details Date Type Department Care Team (Latest Contact Info) Description 09/02/2014 15:38 EST - 09/02/2014 23:59 EST Hospital Encounter [address] [address] Unknown, Provider, MD Discharge Disposition: Home or [...] 0.8 - 1.8 ng/dl 09/02/2014 20:50 EST [facility] BLOOD SPECIMEN / Unknown 09/02/2014 15:45 EST 09/02/2014 18:01 EST us Shannan Vieyra MD CHEMISTRY & BLOOD GAS ORDERABL ES Final Result [facility] [address] [place] [address] documented in this encounter Visit Diagnoses Not on filedocumented in this encounter Care Teams Medical Affairs Specialist Relationship Specialty Start Date End Date Shannan Vieyra MD PCP - General 04/08/09 03/15/19 documented as of this encounter
--- OUTSIDE RECORDS SUMMARY | 2024-10-18 21:51 | XMS_ITS | Encounter Summary ---
Author Organization [facility] Address [address] [place] [address] Care Team Providers Care Engineering Mgr Name Role Phone Shannan Vieyra MD Primary Care Provider Unavail able Reason for Visit * Reason Comments New Patient Visit cholelistiasis on ct Encounter Details Date Type Department Care Team (Late st Contact Info) Description 04/09/2014 11:30 EDT Office Visit [facility] General Surgery - [address] [id number] Mouna Maradiaga MD [address] [place] [address], [address] [place] [address] Cholelithiasis (Primary Dx) Discharge Disposition: [...] 04/11/2014 10:2 7 EDT us Scan 2 Size Mixer PROCEDURE/MINOR SURGICAL OR DERABLES Final Result * EKG 12-LEAD (04/09/2014 12:32 EDT) 04/09/2014 12:3 2 EDT Narrative [facility] EKG - 04/10/2014 10:21 EDT ?[facility] ? Test Date: ?2014-04-09 Pat Name: ? DORIS MADHU ? Department: ?? MP5 Gen Surg ? Room: ? Gender: ? F ?Wax Bleacher: ?? [id number] : ?1980 ? Requested By: MOUNA MARADIAGA Order Number: [id number] ? Reading MD: ?? CLARY MCCOY MD ? Measurements Intervals ?[place] ? Rate: ? 71 ? P: ?13 DE: ? 182 ?QRS: ?93 QRSD: ? 79 [...] Date: 2014-04-09 Pat Name: DORIS KERR Department: [facility] Gen Surg Room: Gender: Wax Bleacher: [id number] : 1980 Requested By: MOUNA MARADIAGA MD Order Number: [id number] Reading MD: CLARY MCCOY MD Measurements Intervals [place] Rate: 71 P: 13 DE: 182 QRS: 93 QRSD: 79 T: 39 [...] obstruction documented in this encounter Care Teams Engineering Mgr Relationship Specialty Start Date End Date Shannan Vieyra MD PCP - General 04/08/09 03/15/19 documented as of this encounter
--- OUTSIDE RECORDS SUMMARY | 2024-10-18 21:51 | XMS_ITS | Encounter Summary ---
Author Organization [facility] Address [address] [place] [address] Care Team Providers Care Cra Officer Name Role Phone Shannan Winter MD Primary Care Provider Unavail able Reason for Visit * Reason Onset Date Comments Medications Refill 09/19/2015 Encounter Details Date Type Department Care Team (Late st Contact Info) Description 09/19/2015 Refill [facility] Family Medicine [address] [address] Shannan Winter MD Medications Refill Social History [...] Encounter - Dionna Caballero RN - 09/22/2015 0929 EST Requested Prescriptions Signed Prescriptions Disp Refills [...] Telephone Encounter - Christina Lianne - 09/19/2015 1658 EST Medication(s) Requested: Armor thyroid 120 mg tab [facility] Last Refill Date: 09/04/2014 Last Visit [...] documented as of this encounter Care Teams Cra Officer Relationship Specialty Start Date End Date Shannan Winter MD PCP - General 04/08/09 03/15/19 documented as of this encounter
--- OUTSIDE RECORDS SUMMARY | 2024-10-18 21:51 | XMS_ITS | Encounter Summary ---
Author Organization [facility] Address [address] [place] [address] Care Team Providers Care Talent Sourcer Name Role Phone Shannan Vieyra MD Primary Care Provider Unavail able Encounter Details Date Type Department Care Team (Late st Contact Info) Description 09/02/2014 Phlebotomy Only [facility] - [address] [address] Visitor Services Representative, Outpatient Graves disease; Other iatrogenic hypothyroidism; Encounter [...] 140 136 - 145 mEq/L 09/02/2014 18:36 [facility] Potassium 4.4 3.5 - 5.0 mEq/L 09/02/2014 18:36 [facility] Chloride 102 96 - 110 mEq/L 09/02/2014 18:36 [facility] CO2 25 24 - 32 mEq/L 09/02/2014 18:36 [facility] BUN 19 10 - 26 mg/dl 09/02/2014 18:36 [facility] Creatinine 0.81 0.52 - 1.04 mg/dl 09/02/2014 18:36 [facility] GFR, Calculated >60 >60 ml/min/1.7 3m2 09/02/2014 18:36 [facility] Calcium 10.2 8.5 - 10.5 mg/dl 09/02/2014 18:36 [facility] Calculated Calcium 10.2 8.5 - 10.5 mg/dl 09/02/2014 18:36 [facility] Glucose, Serum 76 70 - 100 mg/dl 09/02/2014 18:36 [facility] Fasting? YES 09/02/2014 15:45 [facility] Blood specimen (specimen) BLOOD SPECIMEN / Unknown 09/02/2014 15:45 EST 09/02/2014 18:01 EST us Shannan Vieyra MD CHEMISTRY & BLOOD GAS ORDERABL ES Final Result Performing Organization Address City/State/[facility] Co de Phone Number [facility] [address] [place] [address] * VITAMIN D (25,OH) (09/02/2014 15:45 EST) 25OH Vitamin D Tot 21.5 ng/ml 09/03/2014 11:45 [facility] Comment: Reference Range: Deficient = <10 ng/ml Insufficient = 10-30 ng/ml Sufficient = 30-100 ng/ml Toxic = >100 ng/ml Blood specimen (specimen) BLOOD SPECIMEN / Unknown 09/02/2014 15:45 EST 09/02/2014 18:01 EST us Shannan Vieyra MD CHEMISTRY & BLOOD GAS ORDERABL ES Final Result Performing Organization Address City/[facility]/ZIP Co de Phone Number [facility] [address] [place] [address] * (ABNORMAL) THYROID CASCADE (09/02/2014 15:45 EST) TSH 25.78(H) 0.35 - 5.00 uIU/ml 09/02/2014 20:23 EST [facility] Comment: TSH cascade is not recommended for patients in which pituitary or hypothalamic disorders are suspected. Blood specimen (specimen) BLOOD SPECIMEN / Unknown 09/02/2014 15:45 EST 09/02/2014 18:01 EST us Shannan Vieyra MD CHEMISTRY & BLOOD GAS ORDERABL ES Final Result Performing Organization Address [facility] Co de Phone Number [facility] [address] [place] [address] documented in this encounter Visit Diagnoses Diagnosis Graves disease Toxic diffuse goiter without mention of thyrotoxic crisis or storm Other iatrogenic hypothyroidism Encounter for vitamin deficiency screening Screening for other and unspecified endocrine, nutritional, metabolic, and immunity disorders HTN (hypertension) Unspecified essential hypertension documented in this encounter Care Teams Talent Sourcer Relationship Specialty Start Date End Date Shannan Vieyra MD PCP - General 04/08/09 03/15/19 documented as of this encounter
--- OUTSIDE RECORDS SUMMARY | 2024-10-18 21:51 | XMS_ITS | Encounter Summary ---
Author Organization [facility] Address [address] [place] [address] Care Team Providers Care Web Page Developer Name Role Phone Isela Winter MD Primary Care Provider Unavail able Reason for Referral * (Routine) - Closed Specialty Diagnoses / Procedures Referred By Contac t Referred To Contact Jose Martin Perez MD Phone: tel: fax: Referral ID Status Reason Start Date Expiration Date V isits Requested Visits Authorized [id number] Closed Specialty Services Required 04/19/2014 1 1 [...] Expiration Date V isits Requested Visits Authorized [id number] Closed Specialty Services Required 04/19/2014 1 1 [...] Expiration Date V isits Requested Visits Authorized [id number] Closed Specialty Services Required 04/19/2014 1 1 Comments See Mouna Bonner MD. Please call for an appointment. [phone] Encounter Details Date Type Department Care Team (Late st Contact Info) Description 04/19/2014 7:59 EDT - 04/19/2014 16:02 EDT Hospital Encounter [facility] Perioperative Services- [address] [address] Mouna Maradiaga MD [address] [place] [address], [address] [place] [id number] Cholelithiasis (Primary Dx) Discharge Disposition: Home or [...] Surgery Surgeon: Dr. Mouna Maradiaga MD FACS Development Spec(s): Jose Martin Perez MD Preoperative diagnosis / [...] for pain. To f/u with Dr. Maradiaga [facility]. Jose Martin Perez [phone] documented in this encounter Nursing Notes * ROVING OR YARN COLOR CHECKER, SCAN 2 - 04/24/2014 1312 EDT documented in this encounter OR Notes * OR PreOp - ROVING OR YARN COLOR CHECKER, SCAN 2 - 04/25/2014 1305 EDT * Anesthesia Preprocedure Evaluation - ROVING OR YARN COLOR CHECKER, SCAN 2 - 04/25/2014 1305 EDT * OR PreOp - ROVING OR YARN COLOR CHECKER, SCAN 2 - 04/24/2014 1312 EDT * OR Surgeon - Mouna Maradiaga MD - 04/19/2014 1402 EDT OPERATIVE REPORT SERVICE DATE: 04/19/2014 PREOPERATIVE DIAGNOSES: Biliary colic, cholelithiasis, chronic cholecystitis. POSTOPERATIVE DIAGNOSES: Biliary colic, cholelithiasis, chronic cholecystitis. PROCEDURE: Laparoscopic cholecystectomy with intraoperative cholangiogram. SURGEON: Mouna Maradiaga MD, FACS FLOTATION TENDER: Jose Martin Perez MD ANESTHESIA: General endotracheal. [...] closed at the fascial level with a cliqbu-ha-oavml 0 Vicryl suture. Skin at all trocar [...] / Mouna Maradiaga MD FACS mn Confirmation: [id number] Dictation ID: [id number] cc:Isela Perez MD * Anesthesia Procedure Notes - ROVING OR YARN COLOR CHECKER, SCAN 2 - 04/19/2014 1222 EDT documented [...] 04/24/2014 13:1 2 EDT us Scan 2 Graduate Recruiter PROCEDURE/MINOR SURGICAL OR DERABLES Final Result * SURGICAL PATHOLOGY (04/19/2014 13:35 EDT) Pathology Report: SURGICAL PATHOLOGY REPORT Reports generated via electronic interface contain original data; however they are lacking the format of the original report. Caution should be taken when reading/interpreti ng unformatted reports. Name: ? MADHU MARCELLO R ? Accession #: ? [id number] ? : ? 1980 (Age: 34) ??F ? Collect Date: ? 04/19/2014 ? Location: ? [facility] ? Receive Date: ? 04/19/2014 ? Provider: [...] x 1.5 cm in aggregate. ? Two outside dealer sales representative sections and the inked en face cystic duct margin are submitted in 1. Dr. Peace 04/19/2014 02:25 PM End of Report [facility] 04/19/2014 13:3 5 EDT 04/19/2014 13:35 EDT us Mouna Maradiaga MD PATHOLOGY ORDERABLES Final Res ult [facility] [address] [place] [address] * INTRAOP CHOLANGIOGRAM (04/19/2014 11:17 EDT) Anatomical [...] 04/09 documented in this encounter Care Teams Web Page Developer Relationship Specialty Start Date End Date Isela Winter MD PCP - General 04/08/09 03/15/19 documented as of this encounter
--- OUTSIDE RECORDS SUMMARY | 2024-10-18 21:51 | XMS_ITS | Encounter Summary ---
Author Organization [facility] Address [address] [place] [address] Care Team Providers Care Slackline Operator Name Role Phone Shannan Vieyra MD Primary Care Provider Unavail Leida Jackson PA-C Primary Care Provi melvin Comfort Zelaya NP Primary Care Provider [phone] Reason for Visit * Reason Onset Date Comments Medications Refill 07/22/2018 Encounter Details Date Type Department Care Team (Late st Contact Info) Description 07/22/2018 Refill [facility] Family Medicine [address] [phone] Leida Man PA-C 402 [facility] [address] [place], [place] [phone] Medications Refill Social History Tobacco Use Types [...] documented as of this encounter Care Teams Slackline Operator Relationship Specialty Start Date End Date Shannan Vieyra MD PCP - General 04/08/09 03/15/19 Leida Man PA-C PCP - General 03/16/19 03/07/22 Comfort Zelaya NP [address] [place] [phone] PCP - General Family Medicine - Primary Care 03/08/22 documented as of this encounter
--- OUTSIDE RECORDS SUMMARY | 2024-10-18 21:51 | XMS_ITS | Encounter Summary ---
Author Organization [facility] Address [address] [place] [address] Care Team Providers Care Veterans Contact Representative Name Role Phone Shannan Vieyra MD Primary [...] 5:15 EDT - 01/25/2014 6:56 EDT Emergency [facility] Emergency Department - Main [place] [address] [place] [address] Samanta Amador PA-C [address] [facility] [place] [address] Michael Lundy PA-C [address] [place], [place] [address] Emergency, MD Keli Abdominal pain (Primary Dx) [...] tenderness, guarding or CVA tenderness Discharge home, ygrx-nik-svqgwde analgesia, stressed the importance once again of [...] is comfortable with this. Sign out to [facility] at 600 pending labwork. Disposition: Discharged The [...] PF4 ORDERABLES Final Result Performing Organization Address City/[facility]/ZIP Co de Phone Number [facility] [address] [place] [address] * HEMAGRAM (01/25/2014 5:38 EDT) WBC 6.13 [...] PF4 ORDERABLES Final Result Performing Organization Address City/[facility]/ZIP Co de Phone Number [facility] [address] [place] [address] * LIPASE (01/25/2014 5:38 EDT) Lipase 111 0 - 250 U/L [facility] Blood specimen (specimen) 01/25/2014 5:38 EDT 01/25/2014 6:00 EDT Samanta Amador PA-C CHEMISTRY & BLOOD GAS ORDERA BLES Final Result Performing Organization Address City/[facility]/ZIP Co de Phone Number [facility] [address] [place] [address] * (ABNORMAL) COMPREHENSIVE METABOLIC PANEL (CMP) (01/25/2014 5:38 EDT) Potassium 4.0 3.5 - 5.0 mEq/L [facility] Sodium 137 136 - 145 mEq/L [facility] Chloride 104 96 - 110 mEq/L [facility] CO2 25 24 - 32 mEq/L [facility] Total Alkaline Phosphatase 62 38 - 126 U/L [facility] Bilirubin, Total <0.5 <1.4 mg/dl [place] [facility] AST 13(L) 15 - 46 [...] ORDERA BLES Final Result Performing Organization Address City/[facility]/ZIP Co de Phone Number [facility] [address] [place] [address] documented in this encounter Visit Diagnoses Diagnosis [...] 01/25/2014 documented in this encounter Care Teams Veterans Contact Representative Relationship Specialty Start Date End Date Shannan Vieyra MD PCP - General 04/08/09 03/15/19 documented as of this encounter
--- OUTSIDE RECORDS SUMMARY | 2024-10-18 21:51 | XMS_ITS | Encounter Summary ---
Author Organization [facility] Address [address] [place] [address] Care Team Providers Care Glue Drier Operator Name Role Phone Shannan Vieyra MD Primary Care Provider Unavail able Reason for Visit * Reason Comments Abdominal Pain has appt with GI in April, for eval of gallstones with pancreatic flare ups. pt with increasing frequency and increasing pain. pt reports pain 06/19, 2 percocets at 2030. pt has been eating. + nausea. Encounter Details Date Type Department Care Team (Late st Contact Info) Description 02/28/2014 23:51 EDT - 03/01/2014 3:09 EDT Emergency [facility] Emergency Department - Main [place] [address] [place], [place] [phone] Annie Pulido MD MPH [address] [facility], [address] [place] [address] Emergency, MD Keli Biliary calculus [...] AFTER YOUR VISIT TO THE EMERGENCY ROOM (ITALIAN) documented in this encounter Medications at Time [...] ORDERABL ES Final Result Performing Organization Address [facility] Co de Phone Number [facility] [address] [place] [address] * HEMAGRAM (03/01/2014 0:35 EDT) WBC 8.79 [...] ORDERABL ES Final Result Performing Organization Address [facility] de Phone Number [facility] [address] [place] [address] * LIPASE (03/01/2014 0:35 EDT) Lipase 85 0 - 250 U/L [facility] Blood specimen (specimen) 03/01/2014 0:35 EDT 03/01/2014 0:58 EDT Annie Pulido MD MPH CHEMISTRY & BLOOD GAS ORD ERABLES Final Result Performing Organization Address [facility] Co de Phone Number [facility] [address] [place] [address] * HEPATIC FUNCTION PANEL (ALB,ALK PHOS,ALT,AST,DBIL,TOT YOGI,TOT [...] ERABLES Final Result [facility] [address] [place] [address] * (ABNORMAL) BASIC METABOLIC PANEL (03/01/2014 0:35 EDT) Pathologist [facility] Sodium 137 136 - 145 mEq/L [facility] [...] ERABLES Final Result [facility] [address] [place] [address] documented in this encounter Visit Diagnoses Diagnosis [...] 03/01/2014 documented in this encounter Care Teams Glue Drier Operator Relationship Specialty Start Date End Date Shannan Vieyra MD PCP - General 04/08/09 03/15/19 documented as of this encounter
--- OUTSIDE RECORDS SUMMARY | 2024-10-18 21:51 | XMS_ITS | Encounter Summary ---
Author Organization [facility] Address [address] [place] [address] Care Team Providers Care Supervisor Graphite Name Role Phone Shannan Vieyra MD Primary Care Provider Unavail able Reason for Visit * Reason Onset Date Comments Medications Refill 04/15/2016 Encounter Details Date Type Department Care Team (Late st Contact Info) Description 04/15/2016 Refill [facility] Medicine [address] [address] Shannan Vieyra MD Medications Refill Social History [...] Encounter - Alisha Nino RN - 04/15/2016 2562 EDT Requested Prescriptions Signed Prescriptions Disp Refills [...] - 04/15/2016 1322 EDT Medication(s) Requested: Thyroid,Pork (Clint Thyroid)120 mg tablet takes one tab daily;dispense;90;rf;0;Lisinopril-hydrochlorothiazide takes one tab daily;dispense;90;rf;0 Pharmacy: [facility] Last Refill Date: 07.01.16 Last Visit [...] documented as of this encounter Care Teams Supervisor Graphite Relationship Specialty Start Date End Date Shannan Vieyra MD PCP - General 04/08/09 03/15/19 documented as of this encounter
--- OUTSIDE RECORDS SUMMARY | 2024-10-18 21:51 | XMS_ITS | Encounter Summary ---
Author Organization [facility] Address [address] [place] [address] Care Team Providers Care Administrative Representative Name Role Phone Shannan Vieyra MD Primary Care Provider Unavail able Reason for Visit * Reason Onset Date Comments Post-ED Follow Up 10/29/2013 Encounter Details Date Type Department Care Team (Late st Contact Info) Description 10/29/[address] [phone] Aliza Nino, RN Post-ED Follow Up Social [...] phone did not identify Doris as the food technologist of the device. There for I left a brief message asking that Doris call our office to schedule a follow up visit with her provider. I've provided our office phone number for patient's convenience. Aliza Nino, RN documented in this encounter Plan of Treatment Not on file documented as of this encounter Visit Diagnoses Not on filedocumented in this encounter Care Teams Administrative Representative Relationship Specialty Start Date End Date Shannan Vieyra MD PCP - General 04/08/09 03/15/19 documented as of this encounter
--- OUTSIDE RECORDS SUMMARY | 2024-10-18 21:51 | XMS_ITS | Encounter Summary ---
Author Organization [facility] Address [address] [place] [address] Care Team Providers Care Patient Financial Specialist Name Role Phone Shannan Vieyra MD [...] Info) Description 08/24/2016 14:30 EST Office Visit [facility] Family Medicine - [place] [address] [place], [place] [address] Leida Cerda PA-C [address] [facility] [address] [place], [place] [address] Graves' disease (Primary Dx); Bee sting, undetermined [...] for several days now. 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 No fever. Dry cough. No SOB [...] 1 Tab by mouth daily. - Thyroid Converse Bee sting, undetermined intent, sequela - EPINEPHrine [...] 0.55 - 4.78 uIU/ml 08/24/2016 21:31 EST [facility] Comment: TSH cascade is not recommended for patients in which pituitary or hypothalamic disorders are suspected. Blood specimen (specimen) BLOOD SPECIMEN / Unknown 08/24/2016 14:51 EST 08/24/2016 19:34 EST us Leida Cerda PA-C CHEMISTRY & BLOOD G ORDERABLES Final Result [facility] [address] [place] [address] documented in this encounter Visit Diagnoses Diagnosis [...] documented as of this encounter Care Teams Patient Financial Specialist Relationship Specialty Start Date End Date Shannan Vieyra MD PCP - General 04/08/09 03/15/19 documented as of this encounter
--- OUTSIDE RECORDS SUMMARY | 2024-10-18 21:51 | XMS_ITS | Encounter Summary ---
Author Organization [facility] Address [address] [place] [address] Care Team Providers Care Business Account Specialist Name Role Phone Shannan Vieyra MD Primary Care Provider Unavail able Reason for Referral * Consult (3 - 10 Business Days) - Specialty Report Received Specialty Diagnoses / Procedures Referred By Contact Referred To Contact Gastroenterology and Hepatology Diagnoses Pancreatitis, gallstone Shannan Vieyra MD John, Alex, MD Phone: tel:[phone] fax:[phone] Referral ID Status Reason Start Date Expiration Date Visits Requested Visits Authorized [id number] Specialty Report Received Specialty Services Required 10/10/2013 1 1 Question Answer Reason for Request: recurrent episodes of abdominal pain- has gallstones and now an episode of pancreatitis Reason for Visit * Reason Onset Date Comments Results 10/10/2013 lab results from [facility] Encounter Details Date Type Department Care Team (Late Contact Info) Description 10/10/2013 Telephone [facility] [address] [address] Shannan Vieyra MD Results (lab results from [facility]) Social History Tobacco Use Types Packs/Day Years [...] She had been evaluated in June in [facility] ER for similar episode of [...] fatty food. She is to report to [facility] ER if any recurrence of [...] pancreatitis documented in this encounter Care Teams Business Account Specialist Relationship Specialty Start Date End Date Shannan Vieyra MD PCP - General 04/08/09 03/15/19 documented as of this encounter
--- OUTSIDE RECORDS SUMMARY | 2024-10-18 21:51 | XMS_ITS | Encounter Summary ---
Author Organization [facility] Address [address] [place] [address] Care Team Providers Care Channel Process Supervisor Name Role Phone Shannan Vieyra MD Primary Care Provider Unavail able Encounter Details Date Type Department Care Team (Late st Contact Info) Description 02/21/2016 Orders Only [address] [address] Ronald, MD Pranay [address] [place] [phone] Social History Tobacco Use Types Packs/Day Years [...] on filedocumented in this encounter Care Teams Channel Process Supervisor Relationship Specialty Start Date End Date Shannan Vieyra MD PCP - General 04/08/09 03/15/19 documented as of this encounter
--- OUTSIDE RECORDS SUMMARY | 2024-10-18 21:51 | XMS_ITS | Encounter Summary ---
Author Organization [facility] Address [address] [place] [address] Care Team Providers Care Director Data Analytics Name Role Phone Shannan Vieyra MD Primary Care Provider Unavail able Reason for Visit * Reason Comments Otalgia Encounter Details Date Type Department Care Team (Latest Contact Info) Description 02/17/2015 18:21 EDT - 02/17/2015 20:10 EDT Hospital Encounter [facility] Urgent Care - [address] [phone] Miguel Rogel MD [address] [place] [phone] Otitis media, right (Primary Dx) Discharge [...] sent through Care Everywhere. * OTITIS MEDIA (MOHAWK) documented in this encounter Medications at Time [...] of further medications. Upon departure from [facility], the patient's pain was 6 on a zero to ten scale. Condition at departure from the [facility] : Stable Final diagnoses: Otitis media, right Right sided otitis media in the setting of recent URI symptoms. Patient has a penicillin and Bactrim allergy. She was treated with a course of Zithromax. Reviewed symptomatic treatment and indications for follow up. See discharge instructions. No supervision required. [facility] 02/17/2015 21:09 * Mitzi Esteban RN [...] 08/24/2016 added in this encounter Care Teams Director Data Analytics Relationship Specialty Start Date End Date Shannan Vieyra MD PCP - General 04/08/09 03/15/19 documented as of this encounter
--- OUTSIDE RECORDS SUMMARY | 2024-10-18 21:51 | XMS_ITS | Encounter Summary ---
Author Organization [facility] Address [address] [place] [address] Care Team Providers Care Wire Stripping Machine Operator Name Role Phone Shannan Vieyra MD Primary Care Provider Unavail able Reason for Visit * Reason Onset Date Comments Medication Problem 08/20/2016 Encounter Details Date Type Department Care Team (Late st Contact Info) Description 08/20/[address] [phone] Shannan Vieyra MD Medication Problem Social History [...] Telephone Encounter - Milagros Parrish - 08/20/2016 7644 EST Pt is calling asking for a call back from Sallie Cerda.Pt states she got a letter in the mail from her insurance company stating they will no longer cover her thyroid meds. documented in this encounter Plan of Treatment Not on file documented as of this encounter Visit Diagnoses Not on filedocumented in this encounter Care Teams Wire Stripping Machine Operator Relationship Specialty Start Date End Date Shannan Vieyra MD PCP - General 04/08/09 03/15/19 documented as of this encounter
--- OUTSIDE RECORDS SUMMARY | 2024-10-18 21:51 | XMS_ITS | Encounter Summary ---
Author Organization [facility] Address [address] [place] [address] Care Team Providers Care Loan Review Officer Name Role Phone Shannan Vieyra MD Primary Care Provider Unavail able Reason for Visit * Reason Onset Date Comments Post-ED Follow Up 01/29/2014 01/25/14 - ABD PAIN Encounter Details Date Type Department Care Team (Late st Contact Info) Description 01/29/[address] [address] Aliza Nino RN Post-ED Follow Up (01/25/14 [...] on filedocumented in this encounter Care Teams Loan Review Officer Relationship Specialty Start Date End Date Shannan Vieyra MD PCP - General 04/08/09 03/15/19 documented as of this encounter
--- OUTSIDE RECORDS SUMMARY | 2024-10-18 21:51 | XMS_ITS | Encounter Summary ---
Author Organization [facility] Address [address] [place] [address] Care Team Providers Care Hydraulic Mechanic Name Role Phone Shannan Vieyra MD Primary Care Provider Unavail able Reason for Visit * Reason Onset Date Comments Post-op Problem 04/29/2014 Gallbladder surg namrata last Tuesday. A couple of incisions are very red, and there is drainage from belly button area. Encounter Details Date Type Department Care Team (Late st Contact Info) Description 04/29/2014 Telephone [facility] General Surgery - [facility] [address] [place], [place] [phone] Ashwin Maradiaga MD [address] [place] [address], [address] [place] [address] Post-op Problem ( Gallbladder surgery [...] Encounter - Megan Groves RN - 04/29/2014 1639 EDT Phone call to patient. She is [...] on filedocumented in this encounter Care Teams Hydraulic Mechanic Relationship Specialty Start Date End Date Shannan Vieyra MD PCP - General 04/08/09 03/15/19 documented as of this encounter
--- OUTSIDE RECORDS SUMMARY | 2024-10-18 21:51 | XMS_ITS | Encounter Summary ---
Author Organization [facility] Address [address] [place] [address] Care Team Providers Care Emergency Management Consultant Name Role Phone Shannan Vieyra MD Primary Care Provider Unavail able Reason for Visit * Reason Comments Hypertension medication refills f or thyroid Encounter Details Date Type Department Care Team (Late st Contact Info) Description 09/04/2014 10:30 EST Office Visit [facility] Family Medicine [place] [phone] Leida Cerda PA-C [address] [place] [phone] Other iatrogenic hypothyroidism (Primary Dx); Bee sting; [...] Had recent labs. Sees Dr. Martinez for photo journalist care. 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 Patient Active Problem List Diagnosis ??? [...] mouth daily. (increase from 105mg) - Thyroid Ringold (3 Months); Future Bee sting - EPINEPHrine [...] documented as of this encounter Care Teams Emergency Management Consultant Relationship Specialty Start Date End Date Shannan Vieyra MD PCP - General 04/08/09 03/15/19 documented as of this encounter
--- OUTSIDE RECORDS SUMMARY | 2024-10-18 21:51 | XMS_ITS | Encounter Summary ---
Author Organization [facility] Address [address] [place] [address] Care Team Providers Care Maintenance Worker Swimming Pool Name Role Phone Shannan Vieyra MD Primary Care Provider Unavail Leida Jackson PA-C Primary Care Provi melvin Comfort Zelaya NP Primary Care Provider [phone] Reason for Visit * Reason Comments Other Encounter Details Date Type Department Care Team (Late st Contact Info) Description 10/15/2013 Refill [facility] Medicine [facility] [address] [place], [place] [phone] Leida Cerda PA-C [address] [facility] [address] [place], [place] [phone] Other Social History Tobacco Use Types Packs/Day [...] Encounter - Aliza Nino, RN - 10/16/2013 0706 EST Refill request for [place] [facility] and Prinzide received from [facility] in [place]. Doris due due for her labs. 90 days of Rx approved. Standing orders place in [facility]. Message will be sent to [facility] to call patient and schedule her for Fasting labs. Aliza Nino RN documented in this encounter Plan of Treatment Not on file documented as of this encounter Results * BASIC METABOLIC PANEL (09/02/2014 15:45 EST) Sodium 140 136 - 145 mEq/L 09/02/2014 18:36 [facility] Potassium 4.4 3.5 - 5.0 mEq/L 09/02/2014 18:36 [facility] Chloride 102 96 - 110 mEq/L 09/02/2014 18:36 [facility] CO2 25 24 - 32 mEq/L 09/02/2014 18:36 [facility] BUN 19 10 - 26 mg/dl 09/02/2014 18:36 [facility] Creatinine 0.81 0.52 - 1.04 mg/dl 09/02/2014 18:36 [facility] GFR, Calculated >60 >60 ml/min/1.7 3m2 09/02/2014 18:36 [facility] Calcium 10.2 8.5 - 10.5 mg/dl 09/02/2014 18:36 [facility] Calculated Calcium 10.2 8.5 - 10.5 mg/dl 09/02/2014 18:36 [facility] Glucose, Serum 76 70 - 100 mg/dl 09/02/2014 18:36 [facility] Fasting? YES 09/02/2014 15:45 [facility] Blood specimen (specimen) BLOOD SPECIMEN / Unknown 09/02/2014 15:45 EST 09/02/2014 18:01 EST us Shannan Vieyra MD CHEMISTRY & BLOOD GAS ORDERABL ES Final Result Performing Organization Address City/[facility]/ZIP Co de Phone Number [facility] [address] [place] [address] * VITAMIN D (25,OH) (09/02/2014 15:45 EST) 25OH Vitamin D Tot 21.5 ng/ml 09/03/2014 11:45 EST [facility] Comment: Reference Range: Deficient = <10 ng/ml Insufficient = 10-30 ng/ml Sufficient = 30-100 ng/ml Toxic = >100 ng/ml Blood specimen (specimen) BLOOD SPECIMEN / Unknown 09/02/2014 15:45 EST 09/02/2014 18:01 EST us Shannan Vieyra MD CHEMISTRY & BLOOD GAS ORDERABL ES Final Result Performing Organization Address City/[facility] Co de Phone Number [facility] [address] [place] [address] documented in this encounter Visit Diagnoses Diagnosis [...] 10/16/2013 documented in this encounter Care Teams Maintenance Worker Swimming Pool Relationship Specialty Start Date End Date Shannan Vieyra MD PCP - General 04/08/09 03/15/19 Leida Cerda PA-C PCP - General 03/16/19 03/07/22 Comfort Zelaya NP [address] [place] [address] PCP - General Family Medicine - Primary Care 03/08/22 documented as of this encounter
--- OUTSIDE RECORDS SUMMARY | 2024-10-18 21:51 | XMS_ITS | Encounter Summary ---
Author Organization [facility] Address [address] [place] [address] Care Team Providers Care Podiatry Professor Name Role Phone Shannan Vieyra MD Primary Care Provider Unavail able Reason for Visit * Reason Onset Date Comments Medications Refill 12/23/2017 Encounter Details Date Type Department Care Team (Late st Contact Info) Description 12/23/[address] [address] Shannan Vieyra MD Medications Refill Social History [...] documented as of this encounter Care Teams Podiatry Professor Relationship Specialty Start Date End Date Shannan Vieyra MD PCP - General 04/08/09 03/15/19 documented as of this encounter
--- OUTSIDE RECORDS SUMMARY | 2024-10-18 21:51 | XMS_ITS | Encounter Summary ---
Author Organization [facility] Address [address] [place] [address] Care Team Providers Care K 9 Handler/ Deputy Name Role Phone Shannan Vieyra MD Primary Care Provider Unavail able Reason for Visit * Reason Onset Date Comments Medications Refill 09/20/2015 Encounter Details Date Type Department Care Team (Late st Contact Info) Description 09/20/[address] [address] Shannan Vieyra MD Medications Refill Social History [...] Lee - 09/20/2015 0835 EST Medication(s) Requested: [facility] Last Refill Date: 09/04/14 Last Visit Date: [...] hypothyroidism documented in this encounter Care Teams K 9 Handler/ Deputy Relationship Specialty Start Date End Date Shannan Vieyra MD PCP - General 04/08/09 03/15/19 documented as of this encounter
--- OUTSIDE RECORDS SUMMARY | 2024-10-18 21:51 | XMS_ITS | Encounter Summary ---
Author Organization [facility] Address [address] [place] [address] Care Team Providers Care Wrapper Stemmer Hand Name Role Phone Shannan Winter MD Primary Care Provider Unavail able Reason for Visit * Reason Onset Date Comments Medications Refill 05/20/2016 Encounter Details Date Type Department Care Team (Late st Contact Info) Description 05/20/2016 Telephone [facility] Medicine [address] [phone] Shannan Winter MD Medications Refill Social History [...] Encounter - Alisha Nino RN - 05/20/2016 7780 EDT Requested Prescriptions Signed Prescriptions Disp Refills [...] Telephone Encounter - Lianne Vasquez - 05/20/2016 7057 EDT Patient called to state that her insurance will not pay for RX of 120 mg of armour thyroid. She must have 2 rx's for generic, one at 90 mg and one at 30 mg. [address] rewrite [facility]. documented in this encounter Plan of Treatment Not on file documented as of this encounter Visit Diagnoses Not on filedocumented in this encounter Discontinued Medications Medication Sig Discontinue Reason Start Date End Da te thyroid, Pork, (ARMOUR THYROID) 120 mg tabletIndications:Grave s' disease Take 1 Tab by mouth daily. Insurance does not cover 04/15/2016 05/20/2016 documented as of this encounter Care Teams Wrapper Stemmer Hand Relationship Specialty Start Date End Date Shannan Winter MD PCP - General 04/08/09 03/15/19 documented as of this encounter
--- OUTSIDE RECORDS SUMMARY | 2024-10-18 21:51 | XMS_ITS | Encounter Summary ---
Author Organization [facility] Address [address] [place] [address] Care Team Providers Care Senior Controls Technician Name Role Phone Shannan Vieyra MD Primary Care Provider Unavail Leida Jackson PA-C Primary Care Provi melvin Comfort Zelaya NP Primary Care Provider [phone] Reason for Visit * Reason Onset Date Comments Medications Refill 12/24/2017 Encounter Details Date Type Department Care Team (Late st Contact Info) Description 12/24/2017 Refill [facility] Family Medicine - [address] [phone] Leida Cerda PA-C 402 [facility] [place] [address] [place], [place] [phone] Medications Refill Social History Tobacco Use Types [...] meds with pt. Refills already sent to [facility] 12/23/17 for 90-day supply. documented in this encounter Plan of Treatment Not on file documented as of this encounter Visit Diagnoses Diagnosis Hypothyroidism, iatrogenic Other iatrogenic hypothyroidism documented in this encounter Care Teams Senior Controls Technician Relationship Specialty Start Date End Date Shannan Vieyra MD PCP - General 04/08/09 03/15/19 Leida Cerda PA-C PCP - General 03/16/19 03/07/22 Comfort Zelaya NP [address] [place] [phone] PCP - General Family Medicine - Primary Care 03/08/22 documented as of this encounter
--- OUTSIDE RECORDS SUMMARY | 2024-10-18 21:51 | XMS_ITS | Encounter Summary ---
Author Organization [facility] Address [address] [place] [address] Care Team Providers Care Counseling Psychologist Name Role Phone Shannan Vieyra MD Primary Care Provider Unavail able Reason for Visit * Reason Onset Date Comments Returning Call 08/26/2016 Encounter Details Date Type Department Care Team (Late st Contact Info) Description 08/26/[address] [address] Shannan Vieyra MD Returning Call Social History [...] Encounter - Leida Cerda PA - 08/27/2016 3645 EST Discussed elevated TSH and the need [...] documented as of this encounter Care Teams Counseling Psychologist Relationship Specialty Start Date End Date Shannan Vieyra MD PCP - General 04/08/09 03/15/19 documented as of this encounter
--- OUTSIDE RECORDS SUMMARY | 2024-10-18 21:51 | XMS_ITS | Encounter Summary ---
Author Organization [facility] Address [address] [place] [address] Care Team Providers Care Tile Finisher Name Role Phone Shannan Vieyra MD Primary [...] 3:55 EDT - 06/24/2013 10:56 EDT Emergency [facility] Emergency Department - Main [place] [address] [place] [address] Sarkis Crook, PA-C [address] [place], [place] [phone] Shikha Carmona PA [address] [place], [place] [phone] Emergency, MD Keli Abdominal pain (Primary Dx) [...] AFTER YOUR VISIT TO THE EMERGENCY ROOM (HUNGARIAN) documented in this encounter Medications at Time [...] Code Departure Means Destination Home or Self Fpc documented in this encounter ED Notes * [...] encounter Miscellaneous Notes * Scanned Note-Null - RESPITE PROVIDER, SCAN 2 - 06/26/2013 1440 EDT documented [...] Ketones Neg Neg [facility] Specific [place] >=1.030 1.001 - 1.035 [facility] Blood Neg Neg [facility] pH 6.0 4.6 - 8.0 [facility] Protein Trace(A) Neg [facility] Urobilinogen 0.2 0.2 - 1.0 E.U./dl [facility] Nitrite Neg Neg [facility] Leuk Esterase Neg Neg [facility] metal spray operator ID [id number] [facility] Comment:Test performed at Em ergency Department Urine specimen (specimen) 06/24/2013 6:51 EDT 06/24/2013 7:01 EDT Sarkis Crook PA-C POINT OF CARE TEST ORDERABLES Final Result Performing Organization Address [facility] de Phone Number [facility] [address] [place] [address] * DIFFERENTIAL (06/24/2013 5:10 EDT) % Neutrophils [...] ORDERABLES F inal Result Performing Organization Address [facility] Co de Phone Number [facility] [address] [place] [address] * HEMAGRAM (06/24/2013 5:10 EDT) WBC 6.31 [...] ORDERABLES F inal Result Performing Organization Address [facility] Co de Phone Number [facility] [address] [place] [address] * LIPASE (06/24/2013 5:10 EDT) [facility] Lipase 163 0 - 250 U/L [facility] Blood specimen (specimen) 06/24/2013 5:10 EDT 06/24/2013 5:20 EDT Sarkis Crook PA-C CHEMISTRY & BLOOD GAS ORDERAB LES Final Result Performing Organization Address [facility] de Phone Number [facility] [address] [place] [address] * (ABNORMAL) COMPREHENSIVE METABOLIC PANEL (CMP) (06/24/2013 5:10 EDT) Pathologist [facility] Potassium 3.8 3.5 - 5.0 mEq/L [facility] [...] ORDERAB LES Final Result Performing Organization Address City/State/[facility] Co de Phone Number [facility] [address] [place] [address] documented in this encounter Visit Diagnoses Diagnosis [...] 06/24/2013 documented in this encounter Care Teams Tile Finisher Relationship Specialty Start Date End Date Shannan Vieyra MD PCP - General 04/08/09 03/15/19 documented as of this encounter
--- OUTSIDE RECORDS SUMMARY | 2024-10-18 21:51 | XMS_ITS | Encounter Summary ---
Author Organization [facility] Address [address] [place] [address] Care Team Providers Care Director Of Music Therapy Name Role Phone Shannan Vieyra MD Primary Care Provider Unavail able Reason for Visit * Reason Comments Wound Check red and itchy Encounter Details Date Type Department Care Team (Late st Contact Info) Description 04/30/2014 10:45 EDT Office Visit [facility] General Surgery - [address] [phone] Ashwin Maradiaga MD [address] [place] [address], [address] [place] [address] S/P laparoscopic cholecystectomy (Primary Dx) [...] status documented in this encounter Care Teams Director Of Music Therapy Relationship Specialty Start Date End Date Shannan Vieyra MD PCP - General 04/08/09 03/15/19 documented as of this encounter
--- OUTSIDE RECORDS SUMMARY | 2024-10-18 21:52 | XMS_ITS | Encounter Summary ---
Author Organization [facility] Address [address] [place] [address] Care Team Providers Care Quilt Stuffer Name Role Phone Shannan Vieyra MD Primary Care Provider Unavail able Encounter Details Date Type Department Care Team (Late st Contact Info) Description 04/15/2008 Before PRISM Converted Visit ([place]) [facility] - [facility] conversion [address] [place] [address] Juan Pablo Toth MD [facility] [address] [place] [phone] Social History Tobacco Use Types Packs/Day [...] arrhythmia for which she has seen a passenger service manager over a period of time. She has [...] MD 04/21/2008 22:05 Juan Pablo Toth MD [facility] - Juan Pablo Toth MD - SHARI Job ID: [id number] Doc ID: [id number] cc: Shannan Vieyra MD documented in this encounter Plan of Treatment Not on file documented as of this encounter Visit Diagnoses Not on filedocumented in this encounter Care Teams Quilt Stuffer Relationship Specialty Start Date End Date Shannan Vieyra MD PCP - General 04/08/09 03/15/19 documented as of this encounter
--- OUTSIDE RECORDS SUMMARY | 2024-10-18 21:52 | XMS_ITS | Encounter Summary ---
Author Organization [facility] Address [address] [place] [address] Care Team Providers Care Biological Technical Officer Name Role Phone Shannan Vieyra MD Primary Care Provider Unavail able Encounter Details Date Type Department Care Team (Latest Contact Info) Description 02/09/2011 Orders Only [facility] Endocrinology - [facility] [address] [place] [address] Juan Pablo Toth MD [address] [facility] [address] [place] [address] Other postablative hypothyroidism (Primary Dx) [...] ORDE RABLES Final Result Performing Organization Address [facility] Co de Phone Number [facility] [address] [place] [address] * T4 FREE (03/23/2011 11:55 EDT) Free T4 1.4 0.8 - 1.8 ng/dL [facility] Blood specimen (specimen) 03/23/2011 11:55 EDT 03/23/2011 11:56 EDT us Juan Pablo Toth MD CHEMISTRY & BLOOD GAS ORDE RABLES Final Result Performing Organization Address [facility] de Phone Number [facility] [address] [place] [address] documented in this encounter Visit Diagnoses Diagnosis Other postablative hypothyroidism- Primary documented in this encounter Discontinued Medications Medication Sig Discontinue Reason Start Date End Da te SYNTHROID 100 mcg tablet Take 1 Tab by mouth daily. NEEDS BRAND NAME FOR PROPER ABSORPTION 02/08/2011 02/09/2011 documented as of this encounter Care Teams Biological Technical Officer Relationship Specialty Start Date End Date Shannan Vieyra MD PCP - General 04/08/09 03/15/19 documented as of this encounter
--- OUTSIDE RECORDS SUMMARY | 2024-10-18 21:52 | XMS_ITS | Encounter Summary ---
Author Organization [facility] Address [address] [place] [address] Care Team Providers Care Lumber Piler Operator Name Role Phone Shannan Vieyra MD Primary Care Provider Unavail able Encounter Details Date Type Department Care Team (Late st Contact Info) Description 04/15/[address] [facility] Endocrinology - [address] [address] Deana Jiang RN Grave's disease [...] ORDE RABLES Final Result Performing Organization Address [facility] Co de Phone Number [facility] [address] [place] [address] * (ABNORMAL) T3, TOTAL (05/31/2011 15:42 EDT) T3, Total 213(H) 60 - 181 ng/dL [facility] Blood specimen (specimen) 05/31/2011 15:42 EDT 05/31/2011 16:51 EDT us Juan Pablo Toth MD CHEMISTRY & BLOOD GAS ORDE RABLES Final Result Performing Organization Address [facility] Co de Phone Number [facility] [address] [place] [address] * T4 FREE (05/31/2011 15:42 EDT) Free T4 1.5 0.8 - 1.8 ng/dL [facility] Blood specimen (specimen) 05/31/2011 15:42 EDT 05/31/2011 16:51 EDT us Juan Pablo Toth MD CHEMISTRY & BLOOD GAS ORDE RABLES Final Result Performing Organization Address [facility] de Phone Number [facility] [address] [place] [address] documented in this encounter Visit Diagnoses Diagnosis 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 NEEDS BRAND NAME FOR PROPER ABSORPTION 02/09/2011 04/15/2011 documented as of this encounter Care Teams Lumber Piler Operator Relationship Specialty Start Date End Date Shannan Vieyra MD PCP - General 04/08/09 03/15/19 documented as of this encounter
--- OUTSIDE RECORDS SUMMARY | 2024-10-18 21:52 | XMS_ITS | Encounter Summary ---
Author Organization [facility] Address [address] [place] [address] Care Team Providers Care Motion Picture Narrator Name Role Phone Unavailable Primary Care Provider Unavailabl e Encounter Details Date Type Department Care Team (Late st Contact Info) Description 10/15/2008 15:58 EST Hospital Encounter [address] [address] Judith Ballard MBBS MPH [address] [place] [address], [address] [place] [phone] Social History Tobacco Use Types Packs/Day Years Used Date Smoking Tobacco: Never Smokeless Tobacco: Never Alcohol Use Standard Drinks/Week Comments No 0 (1 standard drink = 0.6 oz pur e alcohol) [facility] Utilities Answer Date Recorded In the past 12 months has [employer], gas, oil, or water company threatened [...]
--- OUTSIDE RECORDS SUMMARY | 2024-10-18 21:52 | XMS_ITS | Encounter Summary ---
Author Organization [facility] Address [address] [place] [address] Care Team Providers Care Retail Pricing Coordinator Name Role Phone Shannan Vieyra MD Primary Care Provider Unavail able Reason for Visit * Reason Onset Date Comments Abdominal Pain 03/08/2013 Encounter Details Date Type Department Care Team (Late st Contact Info) Description 03/08/2013 Telephone [facility] Family Medicine - [address] [phone] Maria Guadalupe Wolfe MD [address] [place] [phone] Abdominal Pain Social History Tobacco Use Types [...] - Maria Guadalupe Wolfe MD - 03/08/2013 0472 EDT CC: abdominal pain S: Pt calls [...] on filedocumented in this encounter Care Teams Retail Pricing Coordinator Relationship Specialty Start Date End Date Shannan Vieyra MD PCP - General 04/08/09 03/15/19 documented as of this encounter
--- OUTSIDE RECORDS SUMMARY | 2024-10-18 21:52 | XMS_ITS | Encounter Summary ---
Author Organization [facility] Address [address] [place] [address] Care Team Providers Care Corporate Aircraft Mechanic Name Role Phone Shannan Vieyra MD Primary Care Provider Unavail able Encounter Details Date Type Department Care Team (Late st Contact Info) Description 11/12/[address] [address] Shannan Vieyra MD Asthma; Contraceptive management; Hypothyroidism; [...] 11/14/2009 added in this encounter Care Teams Corporate Aircraft Mechanic Relationship Specialty Start Date End Date Shannan Vieyra MD PCP - General 04/08/09 03/15/19 documented as of this encounter
--- OUTSIDE RECORDS SUMMARY | 2024-10-18 21:52 | XMS_ITS | Encounter Summary ---
Author Organization [facility] Address [address] [place] [address] Care Team Providers Care Metallurgical Specialist Name Role Phone Shannan Vieyra MD Primary Care Provider Unavail able Reason for Visit * Reason Onset Date Comments Urinary Tract Infection 12/04/2010 Encounter Details Date Type Department Care Team (Late st Contact Info) Description 12/04/[address] [phone] Shannan Vieyra MD Urinary Tract Infection Social [...] Encounter - Shannan Vieyra MD - 12/04/2010 6310 EST Agree. * Telephone Encounter - Tracy Ac RN - 12/04/2010 4231 EST Phone call to Doris Will treat this as an acute UTI and call medication into her pharmacy in [place]. (she is vacationing) with approval from Dr. Veiyra. If she develops fever, vomiting or worsening [...] 1644 EST SHE IS ON VAC IN [place]. HAS A UTI. WOULD LIKE TO HAVE SOME MEDS CALLED IN FOR IT. documented in this encounter Plan of Treatment Not on file documented as of this encounter Visit Diagnoses Not on filedocumented in this encounter Care Teams Metallurgical Specialist Relationship Specialty Start Date End Date Shannan Vieyra MD PCP - General 04/08/09 03/15/19 documented as of this encounter
--- OUTSIDE RECORDS SUMMARY | 2024-10-18 21:52 | XMS_ITS | Encounter Summary ---
Author Organization [facility] Address [address] [place] [address] Care Team Providers Care District Court Reporter Name Role Phone Shannan Vieyra MD Primary Care Provider Unavail able Encounter Details Date Type Department Care Team (Late st Contact Info) Description 10/23/2012 Phlebotomy Only [address] [address] Nurse Monitoring, Outpatient Other iatrogenic hypothyroidism Social History Tobacco [...] G ORDERABLES Final Result Performing Organization Address City/[facility]/ZIP Co de Phone Number [facility] [address] [place] [address] * (ABNORMAL) T3, TOTAL (10/23/2012 16:37 EST) T3, Total 55(L) 60 - 181 ng/dL [facility] Blood specimen (specimen) 10/23/2012 16:37 EST 10/23/2012 18:28 EST us Leida Cerda PA-C CHEMISTRY & BLOOD G ORDERABLES Final Result Performing Organization Address [facility] Co de Phone Number [facility] [address] [place] [address] * (ABNORMAL) TSH (10/23/2012 16:37 EST) TSH 9.78(H) 0.35 - 5.00 uIU/ml [facility] Blood specimen (specimen) 10/23/2012 16:37 EST 10/23/2012 18:28 EST us Leida Cerda PA-C CHEMISTRY & BLOOD G ORDERABLES Final Result Performing Organization Address City/[facility] Co de Phone Number [facility] [address] [place] [address] documented in this encounter Visit Diagnoses Diagnosis Other iatrogenic hypothyroidism documented in this encounter Care Teams District Court Reporter Relationship Specialty Start Date End Date Shannan Vieyra MD PCP - General 04/08/09 03/15/19 documented as of this encounter
--- OUTSIDE RECORDS SUMMARY | 2024-10-18 21:52 | XMS_ITS | Encounter Summary ---
Author Organization [facility] Address [address] [place] [address] Care Team Providers Care Electroplating Sales Representative Name Role Phone Unavailable Primary Care Provider Unavailabl e Encounter Details Date Type Department Care Team (Late st Contact Info) Description 09/17/2008 15:12 [facility] Hospital Encounter [address] [address] Judith Ballard MBBS MPH [address] [place] [address], [address] [place] [phone] Social History Tobacco Use Types Packs/Day Years Used Date Smoking Tobacco: Never Smokeless Tobacco: Never Alcohol Use Standard Drinks/Week Comments No 0 (1 standard drink = 0.6 oz pur e alcohol) [facility] Utilities Answer Date Recorded In the past 12 months has [employer] electric, gas, oil, or water company threatened [...] Name Priority Date/Time Associated Diagnosis Comments URINE [id number] RATIO (ACR) Routine 09/17/2008 16:28 EST NEPHROLOGY PROFILE (INCLUDES BUN, CREATININE, CALCULATED GFR, ELECTROLYTES, CALCIUM, PHOSPHORUS, ALBUMIN) Routine 09/17/2008 16:26 EST CATECHOLAMINE FRACTIONATION, PLASMA, FREE Routine 09/17/2008 16:26 EST ALDOSTERONE, SERUM Routine 09/17/2008 16 :26 EST RENIN ACTIVITY, PLASMA Routine 8 16:26 EST COMPLETE BLOOD COUNT Routine 09/17/2008 16:26 EST documented in this encounter Results * (ABNORMAL) MICROALBUMIN (09/17/2008 16:28 EST) Creatinine, Urn [place] 80.4 mg/dl [facility] Ur Albumin mg/dl 3.0(H) <1.9 mg/dl [facility] Ur Alb ug/mg Crea 37.3 ug/mg Crea [facility] Comment: Normal: ??<30 ug/mg Creat Microalbuminuria: ??30-300 ug/mg Creat Clinical albuminuria: ??>300 ug/mg Creat 09/17/2008 16:2 8 EST 09/17/2008 16:28 EST Judith FINLEY MPH CHEMISTRY & BLOOD GAS O RDERABLES Final Result [facility] [address] [place] [address] * RENIN ACTIVITY, PLASMA (09/17/2008 16:26 EST) Pathologist [facility] Renin Activity, Plasma 2.3Unit: ng/mL/h -- REFERENCE VALUE -- ? (Peripheral vein specimen) ? Na-depleted, upright: ?Mean: 10.8 ?Range: 2.9-24 ? Na-replete, upright: ?Mean: 1.9 ?Range: <= 0.6-4.3 ? Performed or Referred by: [facility] Dpt of Lab Med and Path, [address] , [place] [address], Lab Dir: Hebert Cisneros III, ? MD ? [facility] 09/17/2008 16:2 6 EST 09/17/2008 16:28 EST us Judith L Ballard MBBS MPH CHEMISTRY & BLOOD GAS O RDERABLES Final Result [facility] [address] [place] [address] * CATECHOLAMINE FRACTIONATION, PLASMA, FREE (09/17/2008 16:26 EST) Norepinephrine 539Unit: pg/mL -- REFERENCE VALUE -- ? 70-750 (Supine) ? 200-1700 (Standing) ? [facility] Epinephrine <10Unit: pg/mL -- REFERENCE VALUE -- ? Undetectable- 110 (Supine) ? Undetectable- 140 (Standing) ? [facility] Dopamine 12Unit: pg/mL -- REFERENCE VALUE -- ? <30 (no postural change) ? PLEASE NOTE: ??High/low flagging is based on supine normal ? values. ? Performed or Referred by: [facility] Dpt of Lab Med and Path, [address] , [place] [address], Lab Dir: Hebert Cisneros III, ? MD ? [facility] 09/17/2008 16:2 6 EST 09/17/2008 16:28 EST Judith SANTANABS MPH CHEMISTRY & BLOOD GAS O RDERABLES Final Result [facility] [address] [place] [address] * ALDOSTERONE, SERUM (09/17/2008 16:26 EST) Aldosterone, Serum 6.2Reference range: <=21 Unit: ng/dL Reference range based on upright A.M. collection from subjects ? on ad rah sodium uptake. ? Performed or Referred by: [facility] Dpt of Lab Med and Path, [address] ? [place] [address], Lab Dir: Hebert Cisneros III, ? MD ? [facility] 09/17/2008 16:2 6 EST 09/17/2008 16:28 EST Judith SANTANABS MPH CHEMISTRY & BLOOD GAS O RDERABLES Final Result [facility] [address] [place] [address] * (ABNORMAL) NEPHROLOGY PROFILE (09/17/2008 16:26 EST) [...] OR DERABLES Final Result Performing Organization Address City/[facility] Co de Phone Number [facility] [address] [place] [address] * HEMAGRAM (09/17/2008 16:26 EST) WBC 7.21 [...] ORDERA BLES Final Result Performing Organization Address City/[facility]/ZIP Co de Phone Number [facility] [address] [place] [address] documented in this encounter Visit Diagnoses Not on filedocumented in this encounter
--- OUTSIDE RECORDS SUMMARY | 2024-10-18 21:52 | XMS_ITS | Encounter Summary ---
Author Organization [facility] Address [address] [place] [address] Care Team Providers Care Software Engineer Sales Name Role Phone Shannan Vieyra MD Primary Care Provider Unavail able Reason for Visit * Reason Onset Date Comments Results 02/09/2011 Encounter Details Date Type Department Care Team (Late st Contact Info) Description 02/09/2011 Telephone [facility] Endocrinology - [address] [address] Madan Jiang, RN Results Social [...] Telephone Encounter - Madan Jiang - 02/09/2011 6354 EDT Pt called told of increase in meds. Patient Education Topic: .hyperthyroidism difficulty sleeping , heat intolerane, increased sweating, menstrual irregularities, nervousness, rapid/irregular hearbeat, throat and neck pain, weight loss, fatigue Method: Verbal Taught to: Patient Barriers: None Outcomes: independent Signature:MADAN JIANG RN * Telephone Encounter - Madan Jiang - 02/09/2011 7594 EDT Message copied by MADAN JIANG on [...] on filedocumented in this encounter Care Teams Software Engineer Sales Relationship Specialty Start Date End Date Shannan Vieyra MD PCP - General 04/08/09 03/15/19 documented as of this encounter
--- OUTSIDE RECORDS SUMMARY | 2024-10-18 21:52 | XMS_ITS | Encounter Summary ---
Author Organization [facility] Address [address] [place] [address] Care Team Providers Care Geochemical Manager Name Role Phone Shannan Vieyra MD Primary Care Provider Unavail able Encounter Details Date Type Department Care Team (Late st Contact Info) Description 03/23/2011 Phlebotomy Only [address] [address] Coat Examiner, Outpatient Other postablative hypothyroidism Social History Tobacco [...] ORDE RABLES Final Result Performing Organization Address [facility] de Phone Number [facility] [address] [place] [address] * (ABNORMAL) TSH (03/23/2011 11:55 EDT) TSH 0.04(L) 0.35 - 5.00 uIU/ml [facility] Blood specimen (specimen) 03/23/2011 11:55 EDT 03/23/2011 11:56 EDT us Juan Pablo Toth MD CHEMISTRY & BLOOD GAS ORDE RABLES Final Result Performing Organization Address [facility] de Phone Number [facility] [address] [place] [address] * T4 FREE (03/23/2011 11:55 EDT) Free T4 1.4 0.8 - 1.8 ng/dL [facility] Blood specimen (specimen) 03/23/2011 11:55 EDT 03/23/2011 11:56 EDT us Juan Pablo Toth MD CHEMISTRY & BLOOD GAS ORDE RABLES Final Result Performing Organization Address [facility] Co de Phone Number [facility] [address] [place] [address] documented in this encounter Visit Diagnoses Diagnosis Other postablative hypothyroidism documented in this encounter Care Teams Geochemical Manager Relationship Specialty Start Date End Date Shannan Vieyra MD PCP - General 04/08/09 03/15/19 documented as of this encounter
--- OUTSIDE RECORDS SUMMARY | 2024-10-18 21:52 | XMS_ITS | Encounter Summary ---
Author Organization [facility] Address [address] [place] [address] Care Team Providers Care Automobile Mechanic Name Role Phone Shannan Vieyra MD Primary Care Provider Unavail able Encounter Details Date Type Department Care Team (Late st Contact Info) Description 02/08/2011 Phlebotomy Only [address] [address] Handyperson, Outpatient Other postablative hypothyroidism Social History Tobacco [...] ORDE RABLES Final Result Performing Organization Address City/[facility] Co de Phone Number [facility] [address] [place] [address] * TSH (02/08/2011 14:07 EDT) TSH 1.21 0.35 - 5.00 uIU/ml [facility] Blood specimen (specimen) 02/08/2011 14:07 EDT 02/08/2011 14:09 EDT us Juan Pablo Toth MD CHEMISTRY & BLOOD GAS ORDE RABLES Final Result Performing Organization Address [facility] Co de Phone Number [facility] [address] [place] [address] * T4 FREE (02/08/2011 14:07 EDT) Free T4 0.8 0.8 - 1.8 ng/dL [facility] Blood specimen (specimen) 02/08/2011 14:07 EDT 02/08/2011 14:09 EDT us Juan Pablo Toth MD CHEMISTRY & BLOOD GAS ORDE RABLES Final Result Performing Organization Address [facility] Co de Phone Number [facility] [address] [place] [address] documented in this encounter Visit Diagnoses Diagnosis Other postablative hypothyroidism documented in this encounter Care Teams Automobile Mechanic Relationship Specialty Start Date End Date Shannan Vieyra MD PCP - General 04/08/09 03/15/19 documented as of this encounter
--- OUTSIDE RECORDS SUMMARY | 2024-10-18 21:52 | XMS_ITS | Encounter Summary ---
Author Organization [facility] Address [address] [place] [address] Care Team Providers Care Assembler Brazer Name Role Phone Shannan Vieyra MD Primary Care Provider Unavail able Encounter Details Date Type Department Care Team (Latest Contact Info) Description 05/31/2011 15:30 EDT - 05/31/2011 23:59 EDT Hospital Encounter [address] [address] Juan Pablo Toth MD [employer] [address] [place] [phone] Discharge Disposition: Home or Self Care [...] on filedocumented in this encounter Care Teams Assembler Brazer Relationship Specialty Start Date End Date Shannan Vieyra MD PCP - General 04/08/09 03/15/19 documented as of this encounter
--- OUTSIDE RECORDS SUMMARY | 2024-10-18 21:52 | XMS_ITS | Encounter Summary ---
Author Organization [facility] Address [address] [place] [address] Care Team Providers Care Metal Trades Instructor Name Role Phone Shannan Vieyra MD Primary Care Provider Unavail able Reason for Referral * Consult (Routine/Next Available) - Closed Specialty Diagnoses / Procedures Referred By Julianne gallo Referred To Contact Otolaryngology Diagnoses Hoarseness of voice Leida Man PA-C Phone: tel: fax: Carter Reece MD Phone: tel: fax: Referral ID Status Reason Start Date Expiration Date V isits Requested Visits Authorized [id number] Closed Specialty Services Required 06/14/2012 1 1 Question Answer Reason for Request: hoarseness Comments Hoarseness of voice since radioactive iodine tx to thyroid Reason for Visit * Reason Comments Hypertension been running high, h ere for check Encounter Details Date Type Department Care Team (Late st Contact Info) Description 06/14/2012 10:00 EDT Office Visit [facility] Family Medicine [address] [phone] Leida Man PA-C [address] [place] [phone] Hypertension (Primary Dx); Other iatrogenic hypothyroidism; Grave's [...] G ORDERABLES Final Result Performing Organization Address City/[facility]/ZIP Co de Phone Number [facility] [address] [place] [address] * (ABNORMAL) T3, TOTAL (10/23/2012 16:37 EST) T3, Total 55(L) 60 - 181 ng/dL [facility] Blood specimen (specimen) 10/23/2012 16:37 EST 10/23/2012 18:28 EST Leida Man PA-C CHEMISTRY & BLOOD G ORDERABLES Final Result Performing Organization Address [facility] Co de Phone Number [facility] [address] [place] [address] * (ABNORMAL) TSH (10/23/2012 16:37 EST) TSH 9.78(H) 0.35 - 5.00 uIU/ml [facility] Blood specimen (specimen) 10/23/2012 16:37 EST 10/23/2012 18:28 EST Leida Man PA-C CHEMISTRY & BLOOD G ORDERABLES Final Result Performing Organization Address City/[facility] Co de Phone Number [facility] [address] [place] [address] * (ABNORMAL) T3, TOTAL (06/14/2012 10:47 EDT) T3, Total 263(H) 60 - 181 ng/dL [facility] Blood specimen (specimen) 06/14/2012 10:47 EDT 06/14/2012 11:59 EDT Leida Man PA-C CHEMISTRY & BLOOD G ORDERABLES Final Result Performing Organization Address [facility] de Phone Number [facility] [address] [place] [address] * T4 FREE (06/14/2012 10:47 EDT) Free T4 1.5 0.8 - 1.8 ng/dL [facility] Blood specimen (specimen) 06/14/2012 10:47 EDT 06/14/2012 11:59 EDT Leida Man PA-C CHEMISTRY & BLOOD G ORDERABLES Final Result Performing Organization Address [facility] Phone Number [facility] [address] [place] [address] * (ABNORMAL) TSH (06/14/2012 10:47 EDT) Pathologist [facility] TSH <0.02(L) 0.35 - 5.00 uIU/ml [facility] Blood specimen (specimen) 06/14/2012 10:47 EDT 06/14/2012 11:59 EDT Leida Man PA-C CHEMISTRY & BLOOD G ORDERABLES Final Result Performing Organization Address [facility] de Phone Number [facility] [address] [place] [address] * BASIC METABOLIC PANEL (06/14/2012 10:47 EDT) [...] ORDERABLES Final Result [facility] [address] [place] [address] documented in this encounter Visit Diagnoses Diagnosis [...] documented as of this encounter Care Teams Metal Trades Instructor Relationship Specialty Start Date End Date Shannan Vieyra MD PCP - General 04/08/09 03/15/19 documented as of this encounter
--- OUTSIDE RECORDS SUMMARY | 2024-10-18 21:52 | XMS_ITS | Encounter Summary ---
Author Organization [facility] Address [address] [place] [address] Care Team Providers Care Manager Ob Name Role Phone Shannan Vieyra MD Primary Care Provider Unavail able Encounter Details Date Type Department Care Team (Late st Contact Info) Description 01/19/2010 Orders Only [facility] Family Medicine - [place] [phone] Leida Cerda PA-C [address] [facility] [address] [place], [place] [phone] Grave's disease (Primary Dx) Social History Tobacco [...] disease [facility] Number for problems [id number] or [id number] [facility] Accession number [id number] [facility] Acknowledge ABP Done [facility] 01/19/2010 13:4 1 EDT 01/19/2010 13:47 EDT us Leida Cerda PA-C HEMATOLOGY & PF4 OR DERABLES Final Result [facility] [address] [place] [address] documented in this encounter Visit Diagnoses Diagnosis Grave's disease- Primary Toxic diffuse goiter without mention of thyrotoxic crisis or storm documented in this encounter Care Teams Manager Ob Relationship Specialty Start Date End Date Shannan Vieyra MD PCP - General 04/08/09 03/15/19 documented as of this encounter
--- OUTSIDE RECORDS SUMMARY | 2024-10-18 21:52 | XMS_ITS | Encounter Summary ---
Author Organization [facility] Address [address] [place] [address] Care Team Providers Care Skiver Machine Name Role Phone Shannan Vieyra MD Primary Care Provider Unavail able Encounter Details Date Type Department Care Team (Late st Contact Info) Description 12/31/2009 8:08 EDT - 12/31/2009 23:59 EDT Hospital Encounter [facility] - Other [address] [place] [address] Denice Martinez MD [address] [facility], [facility] [address] [place] [phone] Discharge Disposition: Home or Self Care Social [...] on filedocumented in this encounter Care Teams Skiver Machine Relationship Specialty Start Date End Date Shannan Vieyra MD PCP - General 04/08/09 03/15/19 documented as of this encounter
--- OUTSIDE RECORDS SUMMARY | 2024-10-18 21:52 | XMS_ITS | Encounter Summary ---
Author Organization [facility] Address [address] [place] [address] Care Team Providers Care Legal Job Titles Name Role Phone Shannan Winter MD Primary Care Provider Unavail able Encounter Details Date Type Department Care Team (Late st Contact Info) Description 12/31/2009 Results Only [facility] Laboratory Services - [facility] ([facility] [address] [place] [phone] Julita Martinez MD [address] [facility], [facility] [address] [place] [phone] Social History Tobacco Use Types Packs/Day Years [...] ? DORIS KERR ? Accession #: ? [id number] ? : ? 1980 (Age: 29) ??F [...] Final R esult [facility] [address] [place] [address] documented in this encounter Visit Diagnoses Not on filedocumented in this encounter Care Teams Legal Job Titles Relationship Specialty Start Date End Date Shannan Winter MD PCP - General 04/08/09 03/15/19 documented as of this encounter
--- OUTSIDE RECORDS SUMMARY | 2024-10-18 21:52 | XMS_ITS | Encounter Summary ---
Author Organization [facility] Address [address] [place] [address] Care Team Providers Care Installer Molding And Trim Name Role Phone Shannan Vieyra MD Primary Care Provider Unavail able Reason for Visit * Reason Onset Date Comments Results 03/25/2011 Encounter Details Date Type Department Care Team (Late st Contact Info) Description 03/25/2011 Telephone [facility] Endocrinology - [facility] [address] [place] [address] Juan Pablo Toth MD [address] [facility] [address] [place] [phone] Results Social History Tobacco Use [...] on filedocumented in this encounter Care Teams Installer Molding And Trim Relationship Specialty Start Date End Date Shannan Vieyra MD PCP - General 04/08/09 03/15/19 documented as of this encounter
--- OUTSIDE RECORDS SUMMARY | 2024-10-18 21:52 | XMS_ITS | Encounter Summary ---
Author Organization [facility] Address [address] [place] [address] Care Team Providers Care Metal Roaster Name Role Phone Unavailable Primary Care Provider Unavailabl e Encounter Details Date Type Department Care Team (Late st Contact Info) Description 10/08/2008 10:19 EST - 10/08/2008 11:59 EST Hospital Encounter [address] [address] Unknown, Provider, Rod Arias MD [address] [facility], [address] [place] [phone] Discharge Disposition: Auto Discharge Social History Tobacco [...] with 2D, spectral, and color flow Doppler. 85[address]. INDICATION: Uncontrolled hypertension. HISTORY: ?HPT, Known small [...] with 2D, spectral, and color flow Doppler. 24003. INDICATION: Uncontrolled hypertension. HISTORY: HPT, Known small [...] stenosis. Resistive index is normal, 0.56. us Juidth [facility]LEY [facility] IMG US VASCULAR ORDERAB LES Final Result documented in this encounter Visit Diagnoses Not on filedocumented in this encounter
--- OUTSIDE RECORDS SUMMARY | 2024-10-18 21:52 | XMS_ITS | Encounter Summary ---
Author Organization [facility] Address [address] [place] [address] Care Team Providers Care Costume Maker Name Role Phone Shannan Vieyra MD Primary Care Provider Unavail able Reason for Visit * Reason Comments Abdominal Pain LUQ radiating to michel k, started at 1999. Encounter Details Date Type Department Care Team (Late st Contact Info) Description 03/08/2013 23:08 EDT - 03/09/2013 1:26 EDT Emergency [facility] Emergency Department - [address] [id number] Rita Weber MD [address] [place] [address], Level 1 [place] [address] Emergency, MD Keli Abdominal pain [...] AFTER YOUR VISIT TO THE EMERGENCY ROOM ([facility]) documented in this encounter Medications at Time [...] 2310 EDT TCALL: DORIS KERR (katerina) [address] [facility] MED RESIDENT REFERS PT TO E.DAnay FOR EVAL. CC: ACUTE LUQ ABD PN, KNOWN GALLSTONES. (GMD) documented in this encounter Miscellaneous Notes * Scanned Note-Null - ATTORNEY LAW CLERK, SCAN 2 - 03/13/2013 2734 EDT documented in this encounter Plan of [...] Ketones Neg Neg [facility] Specific [place] 1.025 1.001 - 1.035 [facility] Blood Neg Neg [facility] pH 7.0 4.6 - 8.0 [facility] Protein Neg Neg [facility] Urobilinogen 0.2 0.2 - 1.0 E.U./dl [facility] Nitrite Neg Neg [facility] Leuk Esterase 1+(A) Neg [facility] formula weigher ID [id number] [facility] Comment:Test performed at Em ergency Department Urine specimen (specimen) 03/09/2013 0:41 EDT 03/09/2013 0:45 EDT Rita Weber MD POINT OF CARE TEST ORDERABL ES Final Result [facility] [address] [place] [address] documented in this encounter Visit Diagnoses Diagnosis [...] 03/08/2013 documented in this encounter Care Teams Costume Maker Relationship Specialty Start Date End Date Shannan Vieyra MD PCP - General 04/08/09 03/15/19 documented as of this encounter
--- OUTSIDE RECORDS SUMMARY | 2024-10-18 21:52 | XMS_ITS | Encounter Summary ---
Author Organization [facility] Address [address] [place] [address] Care Team Providers Care Construction Estimator Name Role Phone Shannan Vieyra MD Primary Care Provider Unavail able Reason for Visit * Reason Comments Thyroid Problem Encounter Details Date Type Department Care Team (Latest Contact Info) Description 03/23/2011 11:00 EDT Office Visit [facility] Endocrinology - [address] [address] Juan Pablo Toth MD [address] [facility] [address] [place] [address] Other postablative hypothyroidism (Primary Dx) [...] 1.21 02/08/2011 Lab Results Component Value Date [id number] 116 03/23/2011 Lab Results Component Value Date [id number] 23.9* 10/25/2007 Lab Results Component Value Date [...] ELLEN LAL Final Result Performing Organization Address City/State/[facility] Co de Phone Number [facility] [address] [place] [address] documented in this encounter Visit Diagnoses Diagnosis Other postablative hypothyroidism- Primary documented in this encounter Orders Lab Orders Without Results Count Last Ordered D ate First Ordered Date T4 FREE 1 03/23/2011 TSH 1 03/23/2011 documented in this encounter Care Teams Construction Estimator Relationship Specialty Start Date End Date Shannan Vieyra MD PCP - General 04/08/09 03/15/19 documented as of this encounter
--- OUTSIDE RECORDS SUMMARY | 2024-10-18 21:52 | XMS_ITS | Encounter Summary ---
Author Organization [facility] Address [address] [place] [address] Care Team Providers Care Hand Rigger Name Role Phone Shannan Vieyra MD Primary Care Provider Unavail able Encounter Details Date Type Department Care Team (Late st Contact Info) Description 08/14/2010 Abstract [facility] Endocrinology - [facility] [address] [place] [address] Juan Pablo Toth MD [address] [facility] [address] [place] [address] Social History Tobacco Use Types [...] 02/08/2011 added in this encounter Care Teams Hand Rigger Relationship Specialty Start Date End Date Shannan Vieyra MD PCP - General 04/08/09 03/15/19 documented as of this encounter
--- OUTSIDE RECORDS SUMMARY | 2024-10-18 21:52 | XMS_ITS | Encounter Summary ---
Author Organization [facility] Address [address] [place] [address] Care Team Providers Care Vice President Global Digital Marketing Name Role Phone Shannan Vieyra MD Primary Care Provider Unavail able Reason for Visit * Reason Onset Date Comments Medication Problem 02/13/2010 Encounter Details Date Type Department Care Team (Late st Contact Info) Description 02/13/[address] [phone] Shannan Vieyra MD Medication Problem Social History [...] Telephone Encounter - Edel Crocker - 02/13/2010 4084 EDT Patient called and stated that pharmacy needs PA for tussionex. Dr. Vieyra suggested robitussin with codeine. Patient is ok with this. Can this be ordered and called in? documented in this encounter Plan of Treatment Not on file documented as of this encounter Visit Diagnoses Diagnosis Cough- Primary documented in this encounter Care Teams Vice President Global Digital Marketing Relationship Specialty Start Date End Date Shannan Vieyra MD PCP - General 04/08/09 03/15/19 documented as of this encounter
--- OUTSIDE RECORDS SUMMARY | 2024-10-18 21:52 | XMS_ITS | Encounter Summary ---
Author Organization [facility] Address [address] [place] [address] Care Team Providers Care Director Oracle Name Role Phone Shannan Vieyra MD Primary Care Provider Unavail able Reason for Visit * Reason Comments Hypertension Encounter Details Date Type Department Care Team (Late st Contact Info) Description 01/16/2010 15:30 EDT Office Visit [facility] Family Medicine [place] [address]286 Leida Cerda PA-C [address] [place] [phone] Hypertension; Grave's disease Social History Tobacco Use [...] the end of the day. BP at community support specialist office recently was normal. Tolerates the higher [...] G ORDERABLES Final Result Performing Organization Address [facility] Co de Phone Number [facility] [address] [place] [address] * (ABNORMAL) TSH (01/16/2010 15:50 EDT) Pathologist [facility] TSH <0.02(L) 0.35 - 5.00 uIU/ml [facility] Blood specimen (specimen) 01/16/2010 15:50 EDT 01/16/2010 18:26 EDT Leida Cerda PA-C CHEMISTRY & BLOOD G ORDERABLES Final Result Performing Organization Address [facility] Phone Number [facility] [address] [place] [address] * (ABNORMAL) BASIC METABOLIC PANEL (01/16/2010 15:50 EDT) Pathologist [facility] Sodium 139 136 - 145 mEq/L [facility] [...] ORDERABLES Final Result [facility] [address] [place] [address] documented in this encounter Visit Diagnoses Diagnosis Hypertension Unspecified essential hypertension Grave's disease Toxic diffuse goiter without mention of thyrotoxic crisis or storm documented in this encounter Discontinued Medications Medication Sig Discontinue Reason Start Date End Da te atenolol (TENORMIN) 50 mg tablet Take 50 mg by mouth 2 times daily. Alternate therapy 01/16/2010 documented as of this encounter Care Teams Director Oracle Relationship Specialty Start Date End Date Shannan Vieyra MD PCP - General 04/08/09 03/15/19 documented as of this encounter
--- OUTSIDE RECORDS SUMMARY | 2024-10-18 21:52 | XMS_ITS | Encounter Summary ---
Author Organization [facility] Address [address] [place] [address] Care Team Providers Care Interventional Physiatrist Name Role Phone Shannan Vieyra MD Primary Care Provider Unavail able Reason for Visit * Reason Comments Hypertension FOLLOW UP Encounter Details Date Type Department Care Team (Late st Contact Info) Description 11/14/2009 16:00 EST Office Visit [facility] Family Medicine [place] [phone] Leida Cerda PA-C [address] [place] [phone] Hypertension (Primary Dx); Grave's disease; Asthma Social [...] ORDERABLES Final Result [facility] [address] [place] [address] documented in this encounter Visit Diagnoses Diagnosis [...] 11/06/2010 added in this encounter Care Teams Interventional Physiatrist Relationship Specialty Start Date End Date Shannan Vieyra MD PCP - General 04/08/09 03/15/19 documented as of this encounter
--- OUTSIDE RECORDS SUMMARY | 2024-10-18 21:52 | XMS_ITS | Encounter Summary ---
Author Organization [facility] Address [address] [place] [address] Care Team Providers Care Line Patrolman Name Role Phone Unavailable Primary Care Provider Unavailabl e Encounter Details Date Type Department Care Team (Late st Contact Info) Description 07/01/2008 10:29 EDT - 07/01/2008 11:59 EDT Hospital Encounter [facility] - Other [address] [place] [phone] Denice Martinez MD [address] [facility] [address] [place] [phone] Discharge Disposition: Home or Self Care Social [...]
--- OUTSIDE RECORDS SUMMARY | 2024-10-18 21:52 | XMS_ITS | Encounter Summary ---
Author Organization [facility] Address [address] [place] [address] Care Team Providers Care Hedge Trimmer Name Role Phone Shannan Vieyra MD Primary Care Provider Unavail able Reason for Visit * Reason Onset Date Comments Medication Questions 03/04/2011 Encounter Details Date Type Department Care Team (Late st Contact Info) Description 03/04/2011 Telephone [facility] Endocrinology - [facility] [address] [place] [address] Juan Pablo Toth MD [address] [facility] [address] [place] [address] Medication Questions Social History Tobacco [...] Telephone Encounter - Sita Mo - 03/04/2011 6058 EDT Pt wants to speak to Dr oTth about changing medications. documented in this encounter Plan of Treatment Not on file documented as of this encounter Visit Diagnoses Not on filedocumented in this encounter Care Teams Hedge Trimmer Relationship Specialty Start Date End Date Shannan Vieyra MD PCP - General 04/08/09 03/15/19 documented as of this encounter
--- OUTSIDE RECORDS SUMMARY | 2024-10-18 21:52 | XMS_ITS | Encounter Summary ---
Author Organization [facility] Address [address] [place] [address] Care Team Providers Care Diagnostic Tech Name Role Phone Shannan Vieyra MD Primary Care Provider Unavail able Reason for Visit * Reason Comments Cough For about 2 weeks, c ant catch her breath, just seems to get worse. Cough is productive. Encounter Details Date Type Department Care Team (Late st Contact Info) Description 11/29/2011 9:30 EST Office Visit [facility] Family Medicine - [address] [address] Jayashree Torres MD [address] [place] [phone] Bronchitis, acute; RAD (reactive airway disease) [...] from the original note were not included. [facility] Patient Instructions Bronchitis in Adults: [...] antibiotics. Get some extra rest. Take an fwek-ayk-zdfckxv pain medicine, such as acetaminophen (Tylenol), ibuprofen (Advil, Motrin),or naproxen (Aleve) to reduce fever and relieve body aches. Read and follow all instructions on thelabel. Take an zilm-nkp-avwpktc cough medicine that contains dextromethorphan to help [...] Where can you learn more? Go to www.HiWired.net/fahc Enter H333 in the search box to learn more about Bronchitis in Adults: After Your Visit. ?? [phone] [facility] Care instructions adapted under license by [facility], [facility]. This care instruction is for use with your licensed healthcare professional. If you have questions about a medical condition or this instruction, always ask your healthcare professional. [facility] disclaims any warranty or liability for your use of this information. Content Version: 8.9.05796; Last Revised: January 15, 2009[facility] Patient Instructions Learning About Asthma [...] action plan, follow the plan. In general: GGMF-SOBJR-HYVT: eagle; MARGIN-BOTTOM: 0mm Use your quick-relief inhaler as directed by your doctor. If your symptoms do not get better after you use your medicine, have someone take you to the emergency room. Call an ambulance if needed. If your doctor has given you other inhaled medicines or steroid pills, take them as directed. Where can you learn more? Go to www.HiWired.net/fahc Enter M564 in the search box to learn more about Learning About Asthma Triggers. ?? [id number] [employer]. Care instructions adapted under license by [facility], Inc[facility] This care instruction is for use with your licensed healthcare professional. If you have questions about a medical condition or this instruction, always ask your healthcare professional. [employer] disclaims any warranty or liability for your use of this information. Content Version: 8.9.89564; Last Revised: December 15, 2009[facility] Patient Instructions Using a Metered-Dose [...] a Metered-Dose Inhaler: After Your Visit. ?? [phone] [employer]. Care instructions adapted under license by [facility], [facility]. This care instruction is for use with your licensed healthcare professional. If you have questions about a medical condition or this instruction, always ask your healthcare professional. [employer] disclaims any warranty or liability for your use of this information. Content Version: 8.9.68860; Last Revised: March 27, 2010 documented in [...] to get worse. Cough is productive. HPI nutrition teacher here today with cough for 2 [...] asthma documented in this encounter Care Teams Diagnostic Tech Relationship Specialty Start Date End Date Shannan Vieyra MD PCP - General 04/08/09 03/15/19 documented as of this encounter
--- OUTSIDE RECORDS SUMMARY | 2024-10-18 21:52 | XMS_ITS | Encounter Summary ---
Author Organization [facility] Address [address] [place] [address] Care Team Providers Care Automation Developer Name Role Phone Shannan Vieyra MD Primary Care Provider Unavail able Reason for Visit * Reason Onset Date Comments Other 04/13/2011 Medication Management 04/13/2011 Encounter Details Date Type Department Care Team (Late st Contact Info) Description 04/13/2011 Telephone [facility] Endocrinology - [facility] [address] [place] [address] Juan Pablo Toth MD [address] [facility] [address] [place] [address] Other; Medication Management Social History [...] - 04/15/2011 1338 EDT Pt switching to [place] thyroid [address] Toth. Pt called message left about med switch and to get repeat labs in 6 weeks. MADAN JIANG RN * Telephone Encounter - Madan Jiang - 04/14/2011 0934 EDT Called pt She is aware of labs Would like to switch to [place] thyroid. MADAN JIANG, RN * Telephone Encounter - Clarice Salazar - 04/13/2011 1036 EDT Pt has yet to hear from , states it has been over two weeks. Regarding labs. documented in this encounter Plan of Treatment Not on file documented as of this encounter Visit Diagnoses Not on filedocumented in this encounter Care Teams Automation Developer Relationship Specialty Start Date End Date Shannan Vieyra MD PCP - General 04/08/09 03/15/19 documented as of this encounter
--- OUTSIDE RECORDS SUMMARY | 2024-10-18 21:52 | XMS_ITS | Encounter Summary ---
Author Organization [facility] Address [address] [place] [address] Care Team Providers Care Medical Assistant Supervisor Name Role Phone Shannan Vieyra MD Primary Care Provider Unavail able Encounter Details Date Type Department Care Team (Late st Contact Info) Description 10/23/2012 16:33 EST - 10/23/2012 23:59 EST Hospital Encounter [address] [address] Unknown, Provider, Leida Parks PA-C [address] [place] [phone] Discharge Disposition: Auto Discharge Social History Tobacco [...] filedocumented in this encounter Care Teams Medical Assistant Supervisor Relationship Specialty Start Date End Date Shannan Vieyra MD PCP - General 04/08/09 03/15/19 documented as of this encounter
--- OUTSIDE RECORDS SUMMARY | 2024-10-18 21:52 | XMS_ITS | Encounter Summary ---
Author Organization [facility] Address [address] [place] [address] Care Team Providers Care Shift Production Supervisor Name Role Phone Shannan Vieyra MD Primary Care Provider Unavail able Reason for Referral * Consult, Test and Treat (Routine/Next Available) - Closed Specialty Diagnoses / Procedures Referred By Julianne gallo Referred To Contact Speech Therapy Diagnoses Dysphonia Carter Reece MD Phone: tel: fax: Referral ID Status Reason Start Date Expiration Date V isits Requested Visits Authorized [id number] Closed Specialty Services Required 09/13/2012 1 1 Question Answer Reason for Request: high pitched, squeky voice with supraglottic hyperfunction Type of GLASS ROLLING MACHINE OPERATOR Eval: Voice Eval & Treat Reason for Visit * Reason Comments Hoarse for about 5 years Encounter Details Date Type Department Care Team (Late st Contact Info) Description 09/13/2012 15:10 EST Office Visit [facility] ENT- Main [address] [address] Carter Reece MD [address] [place] [address], Level 4 [place] [address] Dysphonia (Primary Dx) Social History [...] strained, squeaky. 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 No dysphagia or GERD. No sore [...] or masses. Optimize vocal hygiene- handouts provided GLASS ROLLING MACHINE OPERATOR referral for voice therapy- should respond well RTO 3 months during voice clinic documented in this encounter Plan of Treatment Scheduled Referrals Name Type Priority Associated Diagnoses Orde r Schedule AMB CONSULT SPEECH & LANGUAGE PATHOLOGY Outpatient Referral Routine Dysphonia Ordered: 09/13/2012 documented as of this encounter Visit Diagnoses Diagnosis Dysphonia- Primary documented in this encounter Care Teams Shift Production Supervisor Relationship Specialty Start Date End Date Shannan Vieyra MD PCP - General 04/08/09 03/15/19 documented as of this encounter
--- OUTSIDE RECORDS SUMMARY | 2024-10-18 21:52 | XMS_ITS | Encounter Summary ---
Author Organization [facility] Address [address] [place] [address] Care Team Providers Care Bit Bender Name Role Phone Shannan Vieyra MD Primary Care Provider Unavail able Encounter Details Date Type Department Care Team (Late st Contact Info) Description 03/09/2011 Phlebotomy Only [address] [address] Clinical Trial Manager, Outpatient Social History Tobacco Use Types [...] on filedocumented in this encounter Care Teams Bit Bender Relationship Specialty Start Date End Date Shannan Vieyra MD PCP - General 04/08/09 03/15/19 documented as of this encounter
--- OUTSIDE RECORDS SUMMARY | 2024-10-18 21:52 | XMS_ITS | Encounter Summary ---
Author Organization [facility] Address [address] [place] [address] Care Team Providers Care Cementer Machine Name Role Phone Shannan Vieyra MD Primary Care Provider Unavail able Reason for Visit * Reason Onset Date Comments Medications Refill 11/06/2010 please call i n brand only. Encounter Details Date Type Department Care Team (Late st Contact Info) Description 11/06/2010 Refill [facility] Endocrinology - [facility] [address] [place] [address] Juan Pablo Toth MD 62 [facility] [address] [place] [address] Medications Refill (please call in [...] documented as of this encounter Care Teams Cementer Machine Relationship Specialty Start Date End Date Shannan Vieyra MD PCP - General 04/08/09 03/15/19 documented as of this encounter
--- OUTSIDE RECORDS SUMMARY | 2024-10-18 21:52 | XMS_ITS | Encounter Summary ---
Author Organization [facility] Address [address] [place] [address] Care Team Providers Care Mucker Cofferdam Name Role Phone Shannan Vieyra MD Primary Care Provider Unavail able Reason for Visit * Reason Comments Graves' Disease Encounter Details Date Type Department Care Team (Latest Contact Info) Description 02/08/2011 13:30 EDT Office Visit [facility] Endocrinology - [facility] [address] [place] [address] Juan Pablo Toth MD 62 [facility] [address] [place] [address] Other postablative hypothyroidism (Primary Dx) [...] LAL Final Result [facility] [address] [place] [address] * TSH (02/08/2011 14:07 EDT) TSH 1.21 0.35 - 5.00 uIU/ml [facility] Blood specimen (specimen) 02/08/2011 14:07 EDT 02/08/2011 14:09 EDT Juan Pablo Toth MD CHEMISTRY & BLOOD GAS ORDE RABLES Final Result Performing Organization Address [facility] Co de Phone Number [facility] [address] [place] [address] * T4 FREE (02/08/2011 14:07 EDT) Free T4 0.8 0.8 - 1.8 ng/dL [facility] Blood specimen (specimen) 02/08/2011 14:07 EDT 02/08/2011 14:09 EDT Juan Pablo Toth MD CHEMISTRY & BLOOD GAS ORDE RABLES Final Result Performing Organization Address [facility] de Phone Number [facility] [address] [place] [address] documented in this encounter Visit Diagnoses Diagnosis [...] documented as of this encounter Care Teams Mucker Cofferdam Relationship Specialty Start Date End Date Shannan Vieyra MD PCP - General 04/08/09 03/15/19 documented as of this encounter
--- OUTSIDE RECORDS SUMMARY | 2024-10-18 21:52 | XMS_ITS | Encounter Summary ---
Author Organization [facility] Address [address] [place] [address] Care Team Providers Care Nurse Orthopedic Name Role Phone Unavailable Primary Care Provider Unavailabl e Encounter Details Date Type Department Care Team (Late st Contact Info) Description 11/04/2008 15:16 EST Hospital Encounter [facility] [address] [place] [address] Miguel Devine MD PhD [address] [facility] 1 [place] [phone] Discharge Disposition: Auto Discharge Social History Tobacco [...] ORDE RABBYRON Final Result Performing Organization Address [facility] Co de Phone Number [facility] [address] [place] [address] * T4 FREE (06/02/2009 15:57 EDT) Free T4 1.4 0.8 - 1.8 ng/dL [facility] Blood specimen (specimen) 06/02/2009 15:57 EDT 06/02/2009 15:58 EDT us Juan Pablo Toht MD CHEMISTRY & BLOOD GAS ORDE RABBYRON Final Result Performing Organization Address [facility] Co de Phone Number [facility] [address] [place] [address] documented in this encounter Visit Diagnoses Not on filedocumented in this encounter
--- OUTSIDE RECORDS SUMMARY | 2024-10-18 21:52 | XMS_ITS | Encounter Summary ---
Author Organization [facility] Address [address] [place] [address] Care Team Providers Care Distiller Name Role Phone Shannan Vieyra MD Primary Care Provider Unavail able Reason for Visit * Reason Comments URI COUGH AND COLD. COUG H IS GETTING WORSE, VOMITS, 3-4 WEEKS. Encounter Details Date Type Department Care Team (Late st Contact Info) Description 02/13/2010 9:30 EDT Office Visit [address] [address] Shannan Vieyra MD Cough (Primary Dx) Social [...] Shannan Vieyra MD - 02/14/2010 [address] [address] PROGRESS/FOLLOWUP NOTE - 02/13/2010 TEMPORARY PROBLEM: Cough. [...] system. 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 Z-DNAITA prescribed for five days. Tussionex suspension for [...] - DM1 Job ID: SM Doc ID: [id number] Ext Doc ID: [id number] cc: * Kristi Monroy LPN - 02/13/2010 [...] ORDERAB LES Final Result Performing Organization Address City/State/[facility] Co de Phone Number [facility] [address] [place] [address] documented in this encounter Visit Diagnoses Diagnosis Cough- Primary documented in this encounter Discontinued Medications Medication Sig Discontinue Reason Start Date End Da te ALBUTEROL INHL Inhale 2 Puffs as directed. Therapy completed documented as of this encounter Orders Immunization/Injection Count Last Ordered Date First Ordered Date TDAP VACCINE =>7YO IM 1 02/13/2010 documented in this encounter Care Teams Distiller Relationship Specialty Start Date End Date Shannan Vieyra MD PCP - General 04/08/09 03/15/19 documented as of this encounter
--- OUTSIDE RECORDS SUMMARY | 2024-10-18 21:52 | XMS_ITS | Encounter Summary ---
Author Organization [facility] Address [address] [place] [address] Care Team Providers Care Paid Search Analyst Name Role Phone Shannan Vieyra MD Primary Care Provider Unavail able Reason for Visit * Reason Comments Hypertension BP check Encounter Details Date Type Department Care Team (Late st Contact Info) Description 03/09/2011 9:30 EDT Office Visit [facility] Family Medicine [place] [phone] Leida Man PA-C [address] [place] [phone] Hypertension; Fatigue; Myalgia; Vitamin D deficiency Social [...] on her hypothyroidism. 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 Hypertension This is a chronic problem. Associated [...] VITAMIN D (25,OH) (03/09/2011 10:42 EDT) Pathologist [facility] [place] 25OH Vitamin D Tot 20.6 ng/ml [facility] Comment: Reference Range: <10 ng/ml: Deficient 10-30 ng/ml: Insufficient 30-100 ng/ml: Sufficient >100 ng/ml: Toxic Blood specimen (specimen) 03/09/2011 10:42 EDT 03/09/2011 12:09 EDT Leida Man PA-C CHEMISTRY & BLOOD G ORDERABLES Final Result [facility] [address] [place] [address] * HEMAGRAM (03/09/2011 10:42 EDT) Pathologist [facility] [place] WBC 7.25 4.0 - 12.4 K/cmm [facility]/ZIP Co de Phone Number [facility] [address] [place] [address] * COMPREHENSIVE METABOLIC PANEL (CMP) (03/09/2011 10:42 [...] G ORDERABLES Final Result Performing Organization Address City/[facility]/ZIP Co de Phone Number [facility] [address] [place] [address] documented in this encounter Visit Diagnoses Diagnosis [...] documented as of this encounter Care Teams Paid Search Analyst Relationship Specialty Start Date End Date Shannan Vieyra MD PCP - General 04/08/09 03/15/19 documented as of this encounter
--- OUTSIDE RECORDS SUMMARY | 2024-10-18 21:52 | XMS_ITS | Encounter Summary ---
Author Organization [facility] Address [address] [place] [address] Care Team Providers Care Freight Car Inspector Name Role Phone Shannan Vieyra MD Primary Care Provider Unavail able Reason for Visit * Reason Onset Date Comments Letter for School/Work 02/16/2010 Encounter Details Date Type Department Care Team (Late st Contact Info) Description 02/16/2010 Telephone [facility] Family Medicine - [address] [phone] Shannan Vieyra MD Letter for School/Work Social [...] Telephone Encounter - Edel Crocker - 02/16/2010 1121 EDT Needs a note stating that she should be out of work and school until Tuesday. Was seen on Tuesday by Dr. Vieyra. 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 documented in this encounter Plan of Treatment Not on file documented as of this encounter Visit Diagnoses Not on filedocumented in this encounter Care Teams Freight Car Inspector Relationship Specialty Start Date End Date Shannan Vieyra MD PCP - General 04/08/09 03/15/19 documented as of this encounter
--- OUTSIDE RECORDS SUMMARY | 2024-10-18 21:52 | XMS_ITS | Encounter Summary ---
Author Organization [facility] Address [address] [place] [address] Care Team Providers Care Mix Mill Tender Name Role Phone Shannan Vieyra MD Primary Care Provider Unavail able Encounter Details Date Type Department Care Team (Late st Contact Info) Description 12/17/2009 Abstract [facility] Cardiology - [address] [place], [place] [id number] Shannan Vieyra MD Social History Tobacco Use [...] 01/16/2010 added in this encounter Care Teams Mix Mill Tender Relationship Specialty Start Date End Date Shannan Vieyra MD PCP - General 04/08/09 03/15/19 documented as of this encounter
--- OUTSIDE RECORDS SUMMARY | 2024-10-18 21:52 | XMS_ITS | Encounter Summary ---
Author Organization [facility] Address [address] [place] [address] Care Team Providers Care Electronic Health Records Specialist Name Role Phone Shannan Vieyra MD Primary Care Provider Unavail able Encounter Details Date Type Department Care Team (Late st Contact Info) Description 05/31/2011 Phlebotomy Only [address] [address] Speedometer Inspector, Outpatient Grave's disease Social History Tobacco Use [...] Performing Organization Address [facility] de Phone Number [facility] [address] [place] [address] * (ABNORMAL) T3, TOTAL (05/31/2011 15:42 EDT) T3, Total 213(H) 60 - 181 ng/dL [facility] Blood specimen (specimen) 05/31/2011 15:42 EDT 05/31/2011 16:51 EDT Juan Pablo Toth MD CHEMISTRY & BLOOD GAS ORDE RABLES Final Result Performing Organization Address [facility] de Phone Number [facility] [address] [place] [address] * T4 FREE (05/31/2011 15:42 EDT) Free T4 1.5 0.8 - 1.8 ng/dL [facility] Blood specimen (specimen) 05/31/2011 15:42 EDT 05/31/2011 16:51 EDT Juan Pablo Toth MD CHEMISTRY & BLOOD GAS ORDE RABLES Final Result Performing Organization Address [facility] de Phone Number [facility] [address] [place] [address] documented in this encounter Visit Diagnoses Diagnosis Grave's disease Toxic diffuse goiter without mention of thyrotoxic crisis or storm documented in this encounter Care Teams Electronic Health Records Specialist Relationship Specialty Start Date End Date Shannan Vieyra MD PCP - General 04/08/09 03/15/19 documented as of this encounter
--- OUTSIDE RECORDS SUMMARY | 2024-10-18 21:52 | XMS_ITS | Encounter Summary ---
Author Organization [facility] Address [address] [place] [address] Care Team Providers Care Silver Designer Name Role Phone Shannan Vieyra MD Primary Care Provider Unavail able Encounter Details Date Type Department Care Team (Late st Contact Info) Description 11/06/2012 Orders Only [facility] Medicine [place] [phone] Leida Cerda PA-C [address] [facility] [address] [place], [place] [address] Other iatrogenic hypothyroidism (Primary Dx) Social History [...] Notes * Leida Cerda PA - 11/06/2012 1408 EST Phone call with pt. TSH is now high on 90mg of Furman Thyroid. Her TSH was low on 120 [...] Primary documented in this encounter Care Teams Silver Designer Relationship Specialty Start Date End Date Shannan Vieyra MD PCP - General 04/08/09 03/15/19 documented as of this encounter
--- OUTSIDE RECORDS SUMMARY | 2024-10-18 21:52 | XMS_ITS | Encounter Summary ---
Author Organization [facility] Address [address] [place] [address] Care Team Providers Care Stereoplotter Operator Name Role Phone Shannan Vieyra MD Primary Care Provider Unavail able Reason for Visit * Reason Comments Insect Bite bee sting 3 days ago on right hand, swollen Encounter Details Date Type Department Care Team (Late st Contact Info) Description 05/21/2013 9:15 EDT Office Visit [facility] Medicine [address] [address] Bridget Grubbs, DO [address] [place] [address] Bee sting (Primary Dx); Cellulitis [...] documented as of this encounter Care Teams Stereoplotter Operator Relationship Specialty Start Date End Date Shannan Vieyra MD PCP - General 04/08/09 03/15/19 documented as of this encounter
--- OUTSIDE RECORDS SUMMARY | 2024-10-18 21:52 | XMS_ITS | Encounter Summary ---
Author Organization [facility] Address [address] [place] [address] Care Team Providers Care Designer Name Role Phone Shannan Vieyra MD Primary Care Provider Unavail able Reason for Visit * Reason Onset Date Comments Medications Refill 02/24/2011 Encounter Details Date Type Department Care Team (Late st Contact Info) Description 02/24/[address] [phone] Shannan Vieyra MD Medications Refill Social History [...] hypertension documented in this encounter Care Teams Designer Relationship Specialty Start Date End Date Shannan Vieyra MD PCP - General 04/08/09 03/15/19 documented as of this encounter
--- OUTSIDE RECORDS SUMMARY | 2024-10-18 21:52 | XMS_ITS | Encounter Summary ---
Author Organization [facility] Address [address] [place] [address] Care Team Providers Care Ecology Teacher Name Role Phone Shannan Vieyra MD Primary Care Provider Unavail able Reason for Visit * Reason Onset Date Comments Medications Refill 06/06/2012 Encounter Details Date Type Department Care Team (Late st Contact Info) Description 06/06/2012 Refill [facility] Family Medicine [address] [address] Shannan Vieyra MD Medications Refill Social History [...] documented as of this encounter Care Teams Ecology Teacher Relationship Specialty Start Date End Date Shannan Vieyra MD PCP - General 04/08/09 03/15/19 documented as of this encounter
--- OUTSIDE RECORDS SUMMARY | 2024-10-18 21:52 | XMS_ITS | Encounter Summary ---
Author Organization [facility] Address [address] [place] [address] Care Team Providers Care Aerospace Project Manager Name Role Phone Shannan Vieyra MD Primary Care Provider Unavail able Reason for Visit * Reason Onset Date Comments Insect Bite 05/21/2012 Encounter Details Date Type Department Care Team (Late st Contact Info) Description 05/21/[address] [address] Oli Yanes MD Insect Bite [...] lesion does not improve. OLI YANES MD Field Assembly Supervisor Pager [phone] 05/21/2012 19:31 documented in this encounter Plan of Treatment Not on file documented as of this encounter Visit Diagnoses Not on filedocumented in this encounter Care Teams Aerospace Project Manager Relationship Specialty Start Date End Date Shannan Vieyra MD PCP - General 04/08/09 03/15/19 documented as of this encounter
--- OUTSIDE RECORDS SUMMARY | 2024-10-18 21:53 | XMS_ITS | Encounter Summary ---
Author Organization [facility] Address [address] [place] [address] Care Team Providers Care Roll Forming Machine Set Up Mechanic Name Role Phone Unavailable Primary Care Provider Unavailabl e Encounter Details Date Type Department Care Team (Late st Contact Info) Description 09/25/2007 6:49 EST - 09/25/2007 11:59 EST Hospital Encounter [facility] Perioperative Services- [address] [address] Miguel Devine MD PhD [address] [place] [address] [address] 1 [place] [address] Discharge Disposition: Home or Self [...] Levy, YUKO EP Study NAME: MARCELLO KERR Vascular Specialists: Miguel Devine MD : 1980 Procedure Date: [...] A - ksw Job ID: Document ID: [id number] cc: Shannan Vieyra MD documented in this [...] ERABLES Final Result [facility] [address] [place] [address] * PTT (09/25/2007 7:15 EST) PTT 26 20 - 35 secs [facility] Comment:Therapeutic Heparin range: 60-100 seconds 09/25/2007 7:15 EST 09/25/2007 7:29 EST us Miguel Devine MD PhD HEMATOLOGY & P F4 ORDERABLES Final Result [facility] [address] [place] [address] * PROTIME (09/25/2007 7:15 EST) Pro Time [...] F4 ORDERABLES Final Result Performing Organization Address [facility] de Phone Number [facility] [address] [place] [address] * ELECTROLYTES (09/25/2007 7:15 EST) Pathologist Christiana [...] GAS ORDERABLES Final Result Performing Organization Address [facility] de Phone Number [facility] [address] [place] [address] * HCG (09/25/2007 7:15 EST) HCG <4 <4 mIU/ml [facility] Comment: Reference Range: Positive = >10 Borderline = 4-10 recommend repeat. Negative = <4 09/25/2007 7:15 EST 09/25/2007 7:29 EST Miguel Devine MD PhD CHEMISTRY & BL OOD GAS ORDERABLES Final Result Performing Organization Address [facility] Co de Phone Number [facility] [address] [place] [address] * (ABNORMAL) CREATININE (09/25/2007 7:15 EST) Creatinine 0.51(L) 0.7 - 1.5 mg/dl [facility] GFR, Calculated >60 ml/min/1.7 3m2 [facility] 09/25/2007 7:15 EST 09/25/2007 7:29 EST us Miguel Devine MD PhD CHEMISTRY & BL OOD GAS ORDERABLES Final Result Performing Organization Address [facility] de Phone Number [facility] [address] [place] [address] * (ABNORMAL) HEMAGRAM (09/25/2007 7:15 EST) WBC [...] F4 ORDERABLES Final Result Performing Organization Address [facility] Co de Phone Number [facility] [address] [place] [address] * BUN (09/25/2007 7:15 EST) BUN 13 10 - 26 mg/dl [facility] 09/25/2007 7:15 EST 09/25/2007 7:29 EST us Miguel Devine MD PhD CHEMISTRY & BL OOD GAS ORDERABLES Final Result [facility] [address] [place] [address] documented in this encounter Visit Diagnoses Not on filedocumented in this encounter
--- OUTSIDE RECORDS SUMMARY | 2024-10-18 21:53 | XMS_ITS | Encounter Summary ---
Author Organization [facility] Address [address] [place] [address] Care Team Providers Care Assembler Plastic Boat Name Role Phone Isela Winter MD Primary Care Provider Unavail able Encounter Details Date Type Department Care Team (Late st Contact Info) Description 10/25/2007 Results Only [facility] Cardiology - [address] [place], [place] [phone] Miguel Devine MD PhD [address] [facility] 1 [place] [address] Social History Tobacco Use Types [...] ORDERABLES Final Result [facility] [address] [place] [address] * (ABNORMAL) T4 (10/25/2007 11:04 EST) T4, Total 23.9(H) 4.5 - 10.9 ug/dL [facility] 10/25/2007 11:0 4 EST 10/25/2007 11:06 EST Miguel Devine MD PhD CHEMISTRY & BL OOD GAS ORDERABLES Final Result Performing Organization Address [facility]/ZIP Co de Phone Number [facility] [address] [place] [address] * (ABNORMAL) T3, TOTAL (10/25/2007 11:04 EST) T3, Total >800(H) 60 - 181 ng/dL [facility] 10/25/2007 11:0 4 EST 10/25/2007 11:06 EST Miguel Devine MD PhD CHEMISTRY & BL OOD GAS ORDERABLES Final Result Performing Organization Address [facility] Co de Phone Number [facility] [address] [place] [address] * (ABNORMAL) T4 FREE (10/25/2007 11:04 EST) Free T4 5.9(H) 0.8 - 1.8 ng/dL [facility] 10/25/2007 11:0 4 EST 10/25/2007 11:06 EST us Miguel Devine MD PhD CHEMISTRY & BL OOD GAS ORDERABLES Final Result [facility] [address] [place] [address] * SURGICAL PATHOLOGY (10/25/2007 0:00 EST) Pathology Report: SURGICAL PATHOLOGY REPORT Reports generated via electronic interface contain original data; however they are lacking the format of the original report. Caution should be taken when reading/interpreti ng unformatted reports. Name: ? MADHUMARCELLO ? Accession #: ? [id number] ? : ? 1980 (Age: 27) ??F [...] Nellie patrick Result [facility] [address] [place] [address] documented in this encounter Visit Diagnoses Not on filedocumented in this encounter Care Teams Assembler Plastic Boat Relationship Specialty Start Date End Date Isela Winter MD PCP - General 04/08/09 03/15/19 documented as of this encounter
--- OUTSIDE RECORDS SUMMARY | 2024-10-18 21:53 | XMS_ITS | Encounter Summary ---
Author Organization [facility] Address [address] [place] [address] Care Team Providers Care Mumps Developer Name Role Phone Unavailable Primary Care Provider Unavailabl e Encounter Details Date Type Department Care Team (Late st Contact Info) Description 02/25/2005 13:43 EDT Hospital Encounter [address] [address] Jame Sanders MD [address] [place] [address], [address] [place] [phone] Discharge Disposition: Auto Discharge Social History Tobacco [...] similar to the previous study. /[facility] Narrative 06/09/2009 10:28 EDT ABD U/S, ??RUQ PAIN,HISTORY OF PYELONEPHRITIS ??R/O HYDRONEPHROSIS/MEHUL LITHIASIS. PT IS CURRENTLY .(MVP) ??[facility] TO FAX REQ [id number] RIGHT UPPER QUADRANT ULTRASOUND: 02/25/05 Scans of [...] IS CURRENTLY .(MVP) [facility] TO FAX REQ [id number] RIGHT UPPER QUADRANT ULTRASOUND: 02/25/05 Scans of [...] similar to the previous study. [facility] us Jame Sanders MD IMG US ORDERABLES Final Re sult * BACTERIAL CULTURE, URINE (02/25/2005 13:45 EDT) Specimen Description Urine [facility] Result Less than 10,000 CFU/ml Mixed gram positive growth [facility] Report Status Final [id number] [facility] 02/25/2005 13:4 5 EDT 02/25/2005 13:47 EDT us Jame Sanders MD MICROBIOLOGY - GENERAL ORD ERABLES Final Result [facility] [address] [place] [address] * (ABNORMAL) TSH (02/25/2005 13:45 EDT) TSH <0.02(L) 0.35 - 5.50 uIU/ml [facility] 02/25/2005 13:4 5 EDT 02/25/2005 13:47 EDT Jame Sanders MD CHEMISTRY & BLOOD GAS ORDE RABBYRON Final Result Performing Organization Address City/[facility]/ZIP Co de Phone Number [facility] [address] [place] [address] * (ABNORMAL) T4 FREE (02/25/2005 13:45 EDT) Free T4 2.0(H) 0.8 - 1.8 ng/dl [facility] 02/25/2005 13:4 5 EDT 02/25/2005 13:47 EDT Jame Sanders MD CHEMISTRY & BLOOD GAS ORDE RABBYRON Final Result Performing Organization Address City/[facility]/ZIP Co de Phone Number [facility] [address] [place] [address] documented in this encounter Visit Diagnoses Not on filedocumented in this encounter
--- OUTSIDE RECORDS SUMMARY | 2024-10-18 21:53 | XMS_ITS | Encounter Summary ---
Author Organization [facility] Address [address] [place] [address] Care Team Providers Care Primary School Teacher Name Role Phone Unavailable Primary Care Provider Unavailabl e Encounter Details Date Type Department Care Team (Late st Contact Info) Description 02/06/2008 11:27 EDT Hospital Encounter [facility] - Maple conversion [address] [place] [address] Juan Pablo Toth MD [employer] [facility] [address] [place] [phone] Social History Tobacco Use Types Packs/Day Years Used Date Smoking Tobacco: Never Smokeless Tobacco: Never Alcohol Use Standard Drinks/Week Comments No 0 (1 standard drink = 0.6 oz pur e alcohol) [facility] Utilities Answer Date Recorded In the past 12 months has [facility] electric, gas, oil, or water company [...]
--- OUTSIDE RECORDS SUMMARY | 2024-10-18 21:53 | XMS_ITS | Encounter Summary ---
Author Organization [facility] Address [address] [place] [address] Care Team Providers Care Hairspring Setter Name Role Phone Shannan Vieyra MD Primary Care Provider Unavail able Encounter Details Date Type Department Care Team (Late st Contact Info) Description 02/06/2008 Results Only [facility] Endocrinology - [facility] [address] [place] [address] Juan Pablo Toth MD [address] [facility] [address] [place] [address] Social [...] Final Result Performing Organization Address [facility] Co de Phone Number [facility] [address] [place] [address] * T3, TOTAL (02/06/2008 12:07 EDT) T3, Total 87 60 - 181 ng/dL [facility] 02/06/2008 12:0 7 EDT 02/06/2008 12:08 EDT us Juan Pablo Toth MD CHEMISTRY & BLOOD GAS ORDE RABLES Final Result Performing Organization Address [email or web address] de Phone Number [facility] [address] [place] [address] * (ABNORMAL) T4 FREE (02/06/2008 12:07 EDT) Free T4 0.7(L) 0.8 - 1.8 ng/dL [facility] 02/06/2008 12:0 7 EDT 02/06/2008 12:08 EDT us Juan Pablo Toth MD CHEMISTRY & BLOOD GAS ORDE RABLES Final Result Performing Organization Address [facility] Co de Phone Number [facility] [address] [place] [address] documented in this encounter Visit Diagnoses Not on filedocumented in this encounter Care Teams Hairspring Setter Relationship Specialty Start Date End Date Shannan Vieyra MD PCP - General 04/08/09 03/15/19 documented as of this encounter
--- OUTSIDE RECORDS SUMMARY | 2024-10-18 21:53 | XMS_ITS | Encounter Summary ---
Author Organization [facility] Address [address] [place] [address] Care Team Providers Care Regional Flatbed Truck Driver Name Role Phone Shannan Vieyra MD Primary Care Provider Unavail able Encounter Details Date Type Department Care Team (Late st Contact Info) Description 02/06/2008 Before PRISM Converted Visit (Maple) [facility] - Maple conversion [address] [place] [address] Juan Pablo Toth MD [employer] [address] [place] [phone] Social History Tobacco Use Types Packs/Day [...] MD 02/09/2008 12:25 Juan Pablo Toth MD [facility] Diabetes Taylor strip presser D: - Juan Pablo Toth MD - DS Job ID: [id number] Doc ID: [id number] cc: Shannan Vieyra MD ADDENDUM Start on [...] on filedocumented in this encounter Care Teams Regional Flatbed Truck Driver Relationship Specialty Start Date End Date Shannan Vieyra MD PCP - General 04/08/09 03/15/19 documented as of this encounter
--- OUTSIDE RECORDS SUMMARY | 2024-10-18 21:53 | XMS_ITS | Encounter Summary ---
Author Organization [facility] Address [address] [place] [address] Care Team Providers Care Oil Field Worker Name Role Phone Unavailable Primary Care Provider Unavailabl e Encounter Details Date Type Department Care Team (Latest Contact Info) Description 10/27/2007 10:50 EST - 10/27/2007 11:59 EST Hospital Encounter [facility] - Maple conversion [address] [place], [place] [phone] Juan Pablo Toth MD [address] [place] [address] [place] [phone] Discharge Disposition: Auto Discharge Social History [...]
--- OUTSIDE RECORDS SUMMARY | 2024-10-18 21:53 | XMS_ITS | Encounter Summary ---
Author Organization [facility] Address [address] [place] [address] Care Team Providers Care Chain Splitter Name Role Phone Unavailable Primary Care Provider Unavailabl e Encounter Details Date Type Department Care Team (Late st Contact Info) Description 12/03/2005 13:12 EST Hospital Encounter [facility] - Maple conversion [address] [place] [address] Leida Cerda PA-C [address] [place] [address] [address] [place], [place] [address] Social History Tobacco Use Types Packs/Day Years Used Date Smoking Tobacco: Never Smokeless Tobacco: Never Alcohol Use Standard Drinks/Week Comments No 0 (1 standard drink = 0.6 oz pur e alcohol) [facility] Utilities Answer Date Recorded In [...] G ORDERABLES Final Result Performing Organization Address [facility] de Phone Number [facility] [address] [place] [address] * (ABNORMAL) T3, TOTAL (12/03/2005 13:57 EST) T3, Total 466(H) 60 - 181 ng/dl [facility] 12/03/2005 13:5 7 EST 12/03/2005 17:10 EST Leida Cerda PA-C CHEMISTRY & BLOOD G ORDERABLES Final Result Performing Organization Address [facility] Phone Number [facility] [address] [place] [address] * (ABNORMAL) T4 FREE (12/03/2005 13:57 EST) Free T4 2.9(H) 0.8 - 1.8 ng/dl [facility] 12/03/2005 13:5 7 EST 12/03/2005 17:10 EST Leida Cerda PA-C CHEMISTRY & BLOOD G ORDERABLES Final Result Performing Organization Address [facility] de Phone Number [facility] [address] [place] [address] * (ABNORMAL) HEMAGRAM (12/03/2005 13:57 EST) WBC [...] OR DERABLES Final Result Performing Organization Address City/[facility]/ZIP Co de Phone Number [facility] [address] [place] [address] * (ABNORMAL) BASIC METABOLIC PANEL (12/03/2005 13:57 [...] G ORDERABLES Final Result Performing Organization Address City/[facility]/ZIP Co de Phone Number [facility] [address] [place] [address] documented in this encounter Visit Diagnoses Not on filedocumented in this encounter
--- OUTSIDE RECORDS SUMMARY | 2024-10-18 21:53 | XMS_ITS | Encounter Summary ---
Author Organization [facility] Address [address] [place] [address] Care Team Providers Care Science Editor Name Role Phone Unavailable Primary Care Provider Unavailabl e Encounter Details Date Type Department Care Team (Latest Contact Info) Description 08/25/2005 15:23 EST Hospital Encounter [facility] - Other [address] [place] [address] Shannan Vieyra MD Discharge Disposition: Auto Discharge [...]
--- OUTSIDE RECORDS SUMMARY | 2024-10-18 21:53 | XMS_ITS | Encounter Summary ---
Author Organization [facility] Address [address] [place] [address] Care Team Providers Care Social Worker Health Services Name Role Phone Unavailable Primary Care Provider Unavailabl e Encounter Details Date Type Department Care Team (Late st Contact Info) Description 10/09/2007 14:10 EST Hospital Encounter [facility] - Maple conversion [address] [place] [address] Miguel Devine MD PhD 111 [facility] [address] [place] [phone] Social History Tobacco Use Types Packs/Day Years Used Date Smoking Tobacco: Never Smokeless Tobacco: Never Alcohol Use Standard Drinks/Week Comments No 0 (1 standard drink = 0.6 oz pur e alcohol) [facility] Utilities Answer Date Recorded In the past 12 months has [facility] electric, gas, oil, or water company [...]
--- OUTSIDE RECORDS SUMMARY | 2024-10-18 21:53 | XMS_ITS | Encounter Summary ---
Author Organization [facility] Address [address] [place] [address] Care Team Providers Care Lockstitch Front Maker Name Role Phone Unavailable Primary Care Provider Unavailabl e Encounter Details Date Type Department Care Team (Late st Contact Info) Description 06/29/2005 9:42 EDT Hospital Encounter [facility] - Other [address] [place] [address] Denice Martinez MD [address] [place] [address], [facility] [address] [place] [phone] Social History Tobacco Use Types Packs/Day Years Used Date Smoking Tobacco: Never Smokeless Tobacco: Never Alcohol Use Standard Drinks/Week Comments No 0 (1 standard drink = 0.6 oz pur e alcohol) [facility] Utilities Answer Date Recorded In the past 12 months has [employer], gas, oil, or water [employer] threatened to shut off services in [...]
--- OUTSIDE RECORDS SUMMARY | 2024-10-18 21:53 | XMS_ITS | Encounter Summary ---
Author Organization [facility] Address [address] [place] [address] Care Team Providers Care Foam Dispenser Name Role Phone Shannan Vieyra MD Primary Care Provider Unavail able Encounter Details Date Type Department Care Team (Late st Contact Info) Description 10/27/2007 Before PRISM Converted Visit (Maple) [facility] - Maple conversion [address] [place] [address] Juan Pablo Toth MD [employer] [address] [place] [phone] Social History Tobacco Use Types Packs/Day [...] MD 11/01/2007 16:55 Juan Pablo Toth MD [facility] mail deliverer D: - Juan Pablo Toth MD - Job ID: [id number] Doc ID: [id number] cc: MD Miguel Clement MD Labs 10/25/2007 [...] on filedocumented in this encounter Care Teams Foam Dispenser Relationship Specialty Start Date End Date Shannan Vieyra MD PCP - General 04/08/09 03/15/19 documented as of this encounter
--- OUTSIDE RECORDS SUMMARY | 2024-10-18 21:53 | XMS_ITS | Encounter Summary ---
Author Organization [facility] Address [address] [place] [address] Care Team Providers Care Skiver Blockers Name Role Phone Shannan Vieyra MD Primary Care Provider Unavail able Encounter Details Date Type Department Care Team (Late st Contact Info) Description 12/04/2007 Results Only [facility] - [facility] [address] [place] [address] Juan Pablo Toth MD 62 [facility] [address] [place] [address] Social History Tobacco Use Types [...] ORDE RABBYRON Final Result Performing Organization Address City/[facility]/ZIP Co de Phone Number [facility] [address] [place] [address] * (ABNORMAL) T4 FREE (12/04/2007 12:09 EST) Free T4 4.1(H) 0.8 - 1.8 ng/dL [facility] 12/04/2007 12:0 9 EST 12/04/2007 12:10 EST Juan Pablo Toth MD CHEMISTRY & BLOOD GAS ARONE HALI Final Result Performing Organization Address [facility] Co de Phone Number [facility] [address] [place] [address] documented in this encounter Visit Diagnoses Not on filedocumented in this encounter Care Teams Skiver Blockers Relationship Specialty Start Date End Date Shannan Vieyra MD PCP - General 04/08/09 03/15/19 documented as of this encounter
--- OUTSIDE RECORDS SUMMARY | 2024-10-18 21:53 | XMS_ITS | Encounter Summary ---
Author Organization [facility] Address [address] [place] [address] Care Team Providers Care Poultry Pinner Name Role Phone Unavailable Primary Care Provider Unavailabl e Encounter Details Date Type Department Care Team (Latest Contact Info) Description 11/19/2006 14:07 EST Hospital Encounter [address] [address] Humaira Gallagher MD [address] [place] [phone] Discharge Disposition: Auto Discharge Social History [...] 16:3 8 EST Narrative 04/19/2009 6:00 EDT *[id number]* 26 year old wiht blow to foot, [...] MD / Michelle Coelho MD - 04/19/2009 *[id number]* 26 year old wiht blow to foot, [...]
--- OUTSIDE RECORDS SUMMARY | 2024-10-18 21:53 | XMS_ITS | Encounter Summary ---
Author Organization [facility] Address [address] [place] [address] Care Team Providers Care Computer Numerical Control Operator Name Role Phone Shannan Vieyra MD Primary Care Provider Unavail able Encounter Details Date Type Department Care Team (Late st Contact Info) Description 03/18/2008 Before PRISM Converted Visit (Maple) [facility] - Maple conversion [address] [place] [address] Miguel Devine MD PhD 111 [facility] 1 [place] [phone] Social History Tobacco Use Types Packs/Day Years [...] PROGRESS/FOLLOWUP NOTE - 03/18/2008 Shannan Vieyra MD [facility] [address] [place] [address], [address] [facility] [phone] Vieyra: I had the pleasure [...] Miguel Devine MD - ROB Job ID: [id number] Doc ID: [id number] cc: Shannan Vieyra MD documented in this encounter Plan of Treatment Not on file documented as of this encounter Visit Diagnoses Not on filedocumented in this encounter Care Teams Computer Numerical Control Operator Relationship Specialty Start Date End Date Shannan Vieyra MD PCP - General 04/08/09 03/15/19 documented as of this encounter
--- OUTSIDE RECORDS SUMMARY | 2024-10-18 21:53 | XMS_ITS | Encounter Summary ---
Author Organization [facility] Address [address] [place] [address] Care Team Providers Care Counter Caser Name Role Phone Unavailable Primary Care Provider Unavailabl e Encounter Details Date Type Department Care Team (Late st Contact Info) Description 05/06/2005 9:02 EDT Hospital Encounter [address] [address] Denice Martinez MD [address] [place] [address], [address] [place] [phone] Social History Tobacco Use Types Packs/Day Years Used Date Smoking Tobacco: Never Smokeless Tobacco: Never Alcohol Use Standard Drinks/Week Comments No 0 (1 standard drink = 0.6 oz pur e alcohol) [facility] Utilities Answer Date Recorded In the past 12 months has [employer], gas, oil, or water [employer] threatened to shut off services in your [...]
--- OUTSIDE RECORDS SUMMARY | 2024-10-18 21:53 | XMS_ITS | Encounter Summary ---
Author Organization [facility] Address [address] [place] [address] Care Team Providers Care Hop Weigher Name Role Phone Unavailable Primary Care Provider Unavailabl e Encounter Details Date Type Department Care Team (Late st Contact Info) Description 03/18/2008 15:10 EDT Hospital Encounter [facility] - Maple conversion [address] [place] [address] Miguel Devine MD PhD 111 [facility] 1 [place] [phone] Discharge Disposition: Auto Discharge Social History Tobacco [...]
--- OUTSIDE RECORDS SUMMARY | 2024-10-18 21:53 | XMS_ITS | Encounter Summary ---
Author Organization [facility] Address [address] [place] [address] Care Team Providers Care Accounts Specialist Name Role Phone Unavailable Primary Care Provider Unavailabl e Encounter Details Date Type Department Care Team (Late st Contact Info) Description 09/05/2007 11:06 [facility] Hospital Encounter [facility] - Maple conversion [address] [place] [address] Shannan Vieyra MD Social History Tobacco Use [...]
--- OUTSIDE RECORDS SUMMARY | 2024-10-18 21:53 | XMS_ITS | Encounter Summary ---
Author Organization [facility] Address [address] [place] [address] Care Team Providers Care Elevator Attendant Name Role Phone Shannan Vieyra MD Primary Care Provider Unavail able Encounter Details Date Type Department Care Team (Late st Contact Info) Description 12/27/2007 Results Only [facility] Endocrinology - [facility] [address] [place] [address] Juan Pablo Toth MD 62 [facility] [address] [place] [address] Social History Tobacco Use Types [...] Result Performing Organization Address City/[facility] Co de Phone Number [facility] [address] [place] [address] * T3, TOTAL (12/27/2007 14:34 EDT) T3, Total 98 60 - 181 ng/dL [facility] 12/27/2007 14:3 4 EDT 12/27/2007 14:35 EDT us Juan Pablo Toth MD CHEMISTRY & BLOOD GAS ORDE RABLES Final Result Performing Organization Address [facility] Co de Phone Number [facility] [address] [place] [address] * T4 FREE (12/27/2007 14:34 EDT) Free T4 0.8 0.8 - 1.8 ng/dL [facility] 12/27/2007 14:3 4 EDT 12/27/2007 14:35 EDT us Juan Pablo Toth MD CHEMISTRY & BLOOD GAS ORDE RABLES Final Result Performing Organization Address [facility] Co de Phone Number [facility] [address] [place] [address] documented in this encounter Visit Diagnoses Not on filedocumented in this encounter Care Teams Elevator Attendant Relationship Specialty Start Date End Date Shannan Vieyra MD PCP - General 04/08/09 03/15/19 documented as of this encounter
--- OUTSIDE RECORDS SUMMARY | 2024-10-18 21:53 | XMS_ITS | Encounter Summary ---
Author Organization [facility] Address [address] [place] [address] Care Team Providers Care Supervisor Rose Grading Name Role Phone Unavailable Primary Care Provider Unavailabl e Encounter Details Date Type Department Care Team (Late st Contact Info) Description 05/14/2005 16:35 EDT - 05/19/2005 11:[address] [facility] Mother/Baby Unit [address] [place] [address] Denice Martinez MD 111 [facility], [facility] 4 [place] [phone] True Ledesma MD [address] [place] [address] Discharge Disposition: Home-Health Care Svc Social History [...] PROCEDURE REPORT PT TYPE: IP PT LOC: [id number] SERVICE DATE: 05/15/2005 SURGEON: Jaden Mcneil MDJoanna W Hatfield, MDKimberly Juan, MD GLAZING SUPERINTENDENT: Hau Kovacs MD PREOPERATIVE DIAGNOSIS: Term intrauterine with [...] Kovacs MD Denice Martinez MD - [place] Koavcs MD A - jaw Job ID: [id number] Document ID: [id number] cc: MD Shannan King MD Joanna W [...] Result Performing Organization Address [facility] de Phone Number [facility] [address] [place] [address] * (ABNORMAL) HEMAGRAM (05/16/2005 12:40 EDT) WBC [...] Result Performing Organization Address [facility] Co de Phone Number [facility] [address] [place] [address] * (ABNORMAL) HEMAGRAM (05/16/2005 8:15 EDT) WBC 10.27 4.0 - 12.4 K/cmm [facility] RBC 2.58(L) 3.86 - 5.04 M/cmm [facility] Hemoglobin 6.8(LL) 11.6 - 15.2 gm/dl [facility] HCT 20.3(LL) 34.9 - 44.4 % [facility] MCV 79(L) 81 - 98 fl [facility] MCH 26.4(L) 26.7 - 33.3 pg [facility] MCHC 33.5 32.1 - 35.9 gm/dl [facility] PLT 156 141 - 320 K/cmm [facility] RDW-CV 15.0(H) 11.7 - 14.6 % [facility] 05/16/2005 8:15 EDT 05/16/2005 9:13 EDT True Ledesma MD HEMATOLOGY & PF4 ORDERABL ES Final Result Performing Organization Address [facility] de Phone Number [facility] [address] [place] [address] * UA REFLEX (05/14/2005 19:00 EDT) Pathologist [facility] UA Billing Microscopic not indicated. [facility] 05/14/2005 19:0 0 EDT 05/14/2005 19:06 EDT True Ledesma MD URINALYSIS ORDERABLES Fin al Result Performing Organization Address [facility] [place] [address] * URINALYSIS (05/14/2005 19:00 EDT) Color, UA Yellow [facility] Clarity, UA Clear [facility] Glucose, UA Norm NORM [facility] Bilirubin, UA Neg NEG [facility] Ketones, UA Neg NEG [facility] Specific Prentiss, Urine 1.015 1.005 - 1.02 [facility] [...] ORDERABLES Fin al Result Performing Organization Address [facility] de Phone Number [facility] [address] [place] [address] * CULTURE IF UA POSITIVE (05/14/2005 19:00 EDT) Culture if Indicated Culture not indicated by urinalysis results. [facility] 05/14/2005 19:0 0 EDT 05/14/2005 19:06 EDT True Ledesma MD MICROBIOLOGY - GENERAL OR DERABLES Final Result Performing Organization Address [facility] de Phone Number [facility] [address] [place] [address] * URIC ACID (05/14/2005 18:00 EDT) Uric Acid 6.9 2.2 - 7.7 mg/dl [facility] Comment:Slight hemolysis 05/14/2005 18:0 0 EDT 05/14/2005 18:24 EDT True Ledesma MD CHEMISTRY & BLOOD GAS ORD ERABLES Final Result Performing Organization Address [facility] de Phone Number [facility] [address] [place] [address] * FIBRINOGEN (05/14/2005 18:00 EDT) Fibrinogen 355 220 - 410 mg/dl [facility] Comment:Moderately lipemic 05/14/2005 18:0 0 EDT 05/14/2005 18:24 EDT us True Ledesma MD HEMATOLOGY & PF4 ORDERABL ES Final Result Performing Organization Address [facility] de Phone Number [facility] [address] [place] [address] * (ABNORMAL) CREATININE (05/14/2005 18:00 EDT) Creatinine 0.5(L) 0.7 - 1.5 mg/dl [facility] Comment:Slight hemolysis 05/14/2005 18:0 0 EDT 05/14/2005 18:24 EDT True Ledesma MD HISTORICAL LAB FOR SQ KYLAH D Final Result [facility] [address] [place] [address] * (ABNORMAL) HEMAGRAM (05/14/2005 18:00 EDT) WBC [...] Result Performing Organization Address [facility]/ZIP Co de Phone Number [facility] [address] [place] [address] * BUN (05/14/2005 18:00 EDT) BUN 11 10 - 26 mg/dl [facility] Comment:Slight hemolysis 05/14/2005 18:0 0 EDT 05/14/2005 18:24 EDT True Ledesma MD CHEMISTRY & BLOOD GAS ORD ERABLES Final Result Performing Organization Address [facility] Co de Phone Number [facility] [address] [place] [address] * AST (05/14/2005 18:00 EDT) AST 38 15 - 46 U/L [facility] Comment:Slight hemolysis 05/14/2005 18:0 0 EDT 05/14/2005 18:24 EDT us True Ledesma MD CHEMISTRY & BLOOD GAS ORD ERABLES Final Result Performing Organization Address [facility] de Phone Number [facility] [address] [place] [address] * ALT (05/14/2005 18:00 EDT) ALT 13 9 - 52 U/L [facility] Comment:Slight hemolysis 05/14/2005 18:0 0 EDT 05/14/2005 18:24 EDT True Ledesma MD CHEMISTRY & BLOOD GAS ORD ERABLES Final Result Performing Organization Address [facility] de Phone Number [facility] [address] [place] [address] documented in this encounter Visit Diagnoses Not on filedocumented in this encounter
--- OUTSIDE RECORDS SUMMARY | 2024-10-18 21:53 | XMS_ITS | Encounter Summary ---
Author Organization [facility] Address [address] [place] [address] Care Team Providers Care Healthcare Recruiter Name Role Phone Shannan Vieyra MD Primary Care Provider Unavail able Encounter Details Date Type Department Care Team (Late st Contact Info) Description 11/07/2007 Results Only [facility] Endocrinology - [facility] [address] [place] [address] Juan Pablo Toth MD 62 [facility] [address] [place] [address] Social History Tobacco Use Types [...] Nellie l Result [facility] [address] [place] [address] documented in this encounter Visit Diagnoses Not on filedocumented in this encounter Care Teams Healthcare Recruiter Relationship Specialty Start Date End Date Shannan Vieyra MD PCP - General 04/08/09 03/15/19 documented as of this encounter
--- OUTSIDE RECORDS SUMMARY | 2024-10-18 21:53 | XMS_ITS | Encounter Summary ---
Author Organization [facility] Address [address] [place] [address] Care Team Providers Care Skin Lap Bonder Name Role Phone Unavailable Primary Care Provider Unavailabl e Encounter Details Date Type Department Care Team (Late st Contact Info) Description 09/29/2005 15:30 EST Hospital Encounter [facility] - Other [address] [place] [address] Sita Dunn Social History Tobacco Use Types Packs/Day Years Used Date Smoking Tobacco: Never Smokeless Tobacco: Never Alcohol Use Standard Drinks/Week Comments No 0 (1 standard drink = 0.6 oz pur e alcohol) [facility] Utilities Answer Date Recorded In the [...]
--- OUTSIDE RECORDS SUMMARY | 2024-10-18 21:53 | XMS_ITS | Encounter Summary ---
Author Organization [facility] Address [address] [place] [address] Care Team Providers Care Large Animal Veterinarian Name Role Phone Shannan Winter MD Primary Care Provider Unavail able Encounter Details Date Type Department Care Team (Late st Contact Info) Description 11/14/2006 Results Only [facility] - Maple conversion [address] [place] [address] Julita Martinez MD [address] [place] [address] 4 [place] [phone] Social History Tobacco Use Types Packs/Day Years [...] ? DORIS KERR ? Accession #: ? [id number] : ? 1980 (Age: 26) ??F ?Collect Date: ? 11/14/2006 Location: ? [facility] ? Receive Date: ? 11/15/2006 Provider: ?JULITA MARTINEZ MD Copy to: ?SHANNAN WINTER MD ? Specimen/Source: ?ThinPrep Pap Test, Cervix/Endocervix, processed on Gucash ThinPrep Imaging System, with manual evaluation Last [...] Final R esult [facility] [address] [place] [address] documented in this encounter Visit Diagnoses Not on filedocumented in this encounter Care Teams Large Animal Veterinarian Relationship Specialty Start Date End Date Shannan Winter MD PCP - General 04/08/09 03/15/19 documented as of this encounter
--- OUTSIDE RECORDS SUMMARY | 2024-10-18 21:53 | XMS_ITS | Encounter Summary ---
Author Organization [facility] Address [address] [place] [address] Care Team Providers Care Smoke Jumper Name Role Phone Unavailable Primary Care Provider Unavailabl e Encounter Details Date Type Department Care Team (Latest Contact Info) Description 11/07/2007 10:38 EST - 11/07/2007 11:59 EST Hospital Encounter [facility] [address] [place] [address] Juan Pablo Toth MD [address] [place] [phone] Discharge Disposition: Auto Discharge Social History [...]
--- OUTSIDE RECORDS SUMMARY | 2024-10-18 21:53 | XMS_ITS | Encounter Summary ---
Author Organization [facility] Address [address] [place] [address] Care Team Providers Care Highway Engineering Teacher Name Role Phone Unavailable Primary Care Provider Unavailabl e Encounter Details Date Type Department Care Team (Late st Contact Info) Description 02/10/2005 14:48 EDT Hospital Encounter [address] [address] Denice Martinez MD [address] [place] [address], Level 4 [place] [phone] Social History Tobacco Use Types Packs/Day Years Used Date Smoking Tobacco: Never Smokeless Tobacco: Never Alcohol Use Standard Drinks/Week Comments No 0 (1 standard drink = 0.6 oz pur e alcohol) [facility] Utilities Answer Date Recorded In the past 12 months has [employer]), gas, oil, or water [employer] threatened to shut off services in your [...] ORDERA BLES Final Result Performing Organization Address [facility] de Phone Number [facility] [address] [place] [address] * (ABNORMAL) CREATININE (02/10/2005 14:59 EDT) Pathologist [facility] Creatinine 0.4(L) 0.7 - 1.5 mg/dl [facility] Comment:Slight hemolysis 02/10/2005 14:5 9 EDT 02/10/2005 15:01 EDT Denice Martinez MD HISTORICAL LAB FOR SQ LOAD F inal Result Performing Organization Address [facility] de Phone Number [facility] [address] [place] [address] * (ABNORMAL) HEMAGRAM (02/10/2005 14:59 EDT) Pathologist [facility] WBC 8.38 4.0 - 12.4 K/cmm [facility] RBC 4.01 3.86 - 5.04 M/cmm [facility] Hemoglobin 11.3(L) 11.6 - 15.2 gm/dl [facility] HCT 32.7(L) 34.9 - 44.4 % [facility] MCV 82 81 - 98 fl [...] ORDERABLES Final Result [facility] [address] [place] [address] * BUN (02/10/2005 14:59 EDT) BUN 12 10 - 26 mg/dl [facility] Comment:Slight hemolysis 02/10/2005 14:5 9 EDT 02/10/2005 15:01 EDT us Denice Martinez MD CHEMISTRY & BLOOD GAS ORDERA BLES Final Result Performing Organization Address [facility]/ZIP Co de Phone Number [facility] [address] [place] [address] * AST (02/10/2005 14:59 EDT) AST 25 15 - 46 U/L [facility] Comment:Slight hemolysis 02/10/2005 14:5 9 EDT 02/10/2005 15:01 EDT us Denice Martinez MD CHEMISTRY & BLOOD GAS ORDERA BLES Final Result Performing Organization Address [facility] Co de Phone Number [facility] [address] [place] [address] * ALT (02/10/2005 14:59 EDT) ALT 13 9 - 52 U/L [facility] Comment:Slight hemolysis 02/10/2005 14:5 9 EDT 02/10/2005 15:01 EDT us Denice Martinez MD CHEMISTRY & BLOOD GAS ORDERA BLES Final Result Performing Organization Address [facility] Co de Phone Number [facility] [address] [place] [address] documented in this encounter Visit Diagnoses Not on filedocumented in this encounter
--- OUTSIDE RECORDS SUMMARY | 2024-10-18 21:53 | XMS_ITS | Encounter Summary ---
Author Organization [facility] Address [address] [place] [address] Care Team Providers Care Superintendent Container Terminal Name Role Phone Shannan Vieyra MD Primary Care Provider Unavail able Encounter Details Date Type Department Care Team (Late st Contact Info) Description 12/04/2007 Before PRISM Converted Visit (Maple) [facility] - Maple conversion [address] [place] [address] Juan Pablo Toth MD Work 'n Gear [address] [place] [phone] Social History Tobacco Use Types Packs/Day [...] 12/06/2007 12:25 Juan Pablo Toth MD [facility] winder contort operator D: - Juan Pablo Toth MD - DM Job ID: [id number] Doc ID: [id number] cc: Shannan Vieyra MD ADDENDUM - still toxic Asked to double atenolol 12/04/2007 12:09 T4, Free H 4.1 ng/dL 0.8-1.8 Final * 12/04/2007 12:09 TSH L <0.02 uIU/m... 0.35-5.00 Final * documented in this encounter Plan of Treatment Not on file documented as of this encounter Visit Diagnoses Not on filedocumented in this encounter Care Teams Superintendent Container Terminal Relationship Specialty Start Date End Date Shannan Vieyra MD PCP - General 04/08/09 03/15/19 documented as of this encounter
--- OUTSIDE RECORDS SUMMARY | 2024-10-18 21:53 | XMS_ITS | Encounter Summary ---
Author Organization [facility] Address [address] [place] [address] Care Team Providers Care Cheese Cook Name Role Phone Shannan Winter MD Primary Care Provider Unavail able Encounter Details Date Type Department Care Team (Late st Contact Info) Description 06/29/2005 Results Only [facility] - Maple conversion [address] [place] [phone] Julita Martinez MD [address] [place] [address] 4 [place] [phone] Social History Tobacco Use Types Packs/Day Years [...] ? DORIS KERR ? Accession #: ? [id number] : ? 1980 (Age: 25) ??F ?Collect Date: ? 06/29/2005 Location: ? [facility] ? Receive Date: ? 06/30/2005 Provider: ?JULITA MARTINEZ MD Copy to: ?SHANNAN WINTER MD ? Specimen/Source: ?ThinPrep Pap Test, Cervix/Endocervix, processed on [employer] ThinPrep Imaging System, with manual evaluation Last [...] Final R esult [facility] [address] [place] [address] documented in this encounter Visit Diagnoses Not on filedocumented in this encounter Care Teams Cheese Cook Relationship Specialty Start Date End Date Shannan Winter MD PCP - General 04/08/09 03/15/19 documented as of this encounter
--- OUTSIDE RECORDS SUMMARY | 2024-10-18 21:53 | XMS_ITS | Encounter Summary ---
Author Organization [facility] Address [address] [place] [address] Care Team Providers Care Ocean Clam Boat Captain Name Role Phone Shannan Vieyra MD Primary Care Provider Unavail able Encounter Details Date Type Department Care Team (Late st Contact Info) Description 09/11/2007 Before PRISM Converted Visit (Maple) [facility] - Maple conversion [address] [place] [address] Flako Mondragon MD, [address] [place] [phone] Social History Tobacco Use Types Packs/Day Years [...] PROGRESS/FOLLOWUP NOTE - 10/09/2007 Jessie Vieyra M.D. [facility] [address] [place], [place] Dear Dr. Vieyra: We had the [...] We are asking her to contact her risk control director to furtherdiscuss this issue and we will [...] Flako Mondragon MD - dsp Job ID: [id number] Doc ID: [id number] cc: Shannan Vieyra MD documented in this encounter Plan of Treatment Not on file documented as of this encounter Visit Diagnoses * Evaluation - Flako Mondragon - 08/17/2009 0216 EST RE: NAME: DORIS KERR : 1980 NEW PATIENT EVALUATION - 09/11/2007 Jessie Vieyra M.D. [address] Vieyra: We had the [...] She denies use of any drugs or lmlp-sje-ypkwwot stimulants. She does not have a high [...] Flako Mondragon MD - dsp Job ID: [id number] Doc ID: [id number] cc: documented in this encounter Care Teams Ocean Clam Boat Captain Relationship Specialty Start Date End Date Shannan Vieyra MD PCP - General 04/08/09 03/15/19 documented as of this encounter
--- OUTSIDE RECORDS SUMMARY | 2024-10-18 21:53 | XMS_ITS | Encounter Summary ---
Author Organization [facility] Address [address] [place] [address] Care Team Providers Care [employer] Name Role Phone Unavailable Primary Care Provider Unavailabl e Encounter Details Date Type Department Care Team (Late st Contact Info) Description 09/11/2007 14:16 EST Hospital Encounter [facility] - Maple conversion [address] [place] [address] Miguel Devine MD PhD [address] [facility] Level 1 [place] [phone] Discharge Disposition: Auto Discharge Social History Tobacco [...]
--- OUTSIDE RECORDS SUMMARY | 2024-10-18 21:53 | XMS_ITS | Encounter Summary ---
Author Organization [facility] Address [address] [place] [address] Care Team Providers Care Tool Supervisor Name Role Phone Unavailable Primary Care Provider Unavailabl e Encounter Details Date Type Department Care Team (Latest Contact Info) Description 11/08/2007 6:01 EST - 11/08/2007 11:59 EST Hospital Encounter [facility] [address] [place] [address] Juan Pablo Toth MD [address] [place] [address] [place] [phone] Discharge Disposition: Auto Discharge Social History [...] the findings. us Juan Pablo Toth MD [facility] [place] ORDERABLES Final Re sult * NM [...]
--- OUTSIDE RECORDS SUMMARY | 2024-10-18 21:53 | XMS_ITS | Encounter Summary ---
Author Organization [facility] Address [address] [place] [address] Care Team Providers Care Sourcing Specialist Name Role Phone Unavailable Primary Care Provider Unavailabl e Encounter Details Date Type Department Care Team (Latest Contact Info) Description 12/04/2007 11:22 EST - 12/04/2007 11:59 EST Hospital Encounter [facility] - Maple conversion [address] [place], [place] [address] [phone] Juan Pablo Toth MD [address] [place] [address] [place] [phone] Discharge Disposition: Auto Discharge Social History [...]
--- OUTSIDE RECORDS SUMMARY | 2024-10-18 21:53 | XMS_ITS | Encounter Summary ---
Author Organization [facility] Address [address] [place] [address] Care Team Providers Care Firer Marine Name Role Phone Shannan Vieyra MD Primary Care Provider Unavail able Encounter Details Date Type Department Care Team (Late st Contact Info) Description 11/19/2006 Office Visit [facility] - Maple conversion [address] [place] [address] Humaira Gallagher MD [address] [place] [phone] Social History Tobacco Use Types Packs/Day Years Used Date Smoking Tobacco: Never Assessed Comments Unknown Sex and Gender Information Value Date Recorded Sex Assigned at Not on file Legal Sex Female 18:04 EST Gender Identity Not on file Sexual Orientation Not on file documented as of this encounter Progress Notes * Humaira Gallagher MD - 12/04/2009 0223 EST Care [place] - Physician Summary Registration Date/Time: 11/19/2006 14:12 [...] Course: Given ibuprofen and tylenol.. CLINICAL IMPRESSION Ulxyr9zq toe fracture. INSTRUCTIONS Apply ice intermittently (15-20 [...] M.D. 11/19/2006 19:07) Addenda DORIS Hernandez VisitID: [id number] Date:11/19/2006 11/19/2006 14:21 Pt states they were referred to [facility] by their PCP. signed by Aura [...] trouble walking. No numbness or tingling. Treatment POWERHOUSE TENDER: Ice. PAST HX: No infectious disease exposure. [...] Discharge instructions reviewed with the patient and plate maker zinc.Patient verbalized understanding. The patient was discharged home and accompanied by plate maker zinc. The patient left the Emergency Department ambulatory and via private vehicle. Scallop Cutter driving. Departure time: 18:01. --1801 Daiana Diego R.N.. Locked/Released at 11/19/2006 18:01 by Daiana Diego R.N. documented in this encounter Plan of Treatment Not on file documented as of this encounter Visit Diagnoses Not on filedocumented in this encounter Care Teams Firer Marine Relationship Specialty Start Date End Date Shannan Vieyra MD PCP - General 04/08/09 03/15/19 documented as of this encounter
--- OUTSIDE RECORDS SUMMARY | 2024-10-18 21:53 | XMS_ITS | Encounter Summary ---
Author Organization [facility] Address [address] [place] [address] Care Team Providers Care Ebay Reseller Name Role Phone Unavailable Primary Care Provider Unavailabl e Encounter Details Date Type Department Care Team (Late st Contact Info) Description 03/29/2005 15:20 EDT Hospital Encounter [facility] - Maple conversion [address] [place] [address] Pete Richey MD Social History Tobacco Use [...]
--- OUTSIDE RECORDS SUMMARY | 2024-10-18 21:53 | XMS_ITS | Encounter Summary ---
Author Organization [facility] Address [address] [place] [address] Care Team Providers Care Stitcher Feeder Name Role Phone Unavailable Primary Care Provider Unavailabl e Encounter Details Date Type Department Care Team (Late st Contact Info) Description 10/25/2007 7:33 EST - 10/25/2007 11:59 EST Hospital Encounter [address] [address] Kar Billings MD 111 [facility] 5 [place] [phone] Miguel Devine MD PhD 111 [facility] 1 [place] [phone] Discharge Disposition: Auto Discharge Social History Tobacco [...]
--- OUTSIDE RECORDS SUMMARY | 2024-10-18 21:53 | XMS_ITS | Encounter Summary ---
Author Organization [facility] Address [address] [place] [address] Care Team Providers Care Custom Marine Canvas Fabricator Name Role Phone Unavailable Primary Care Provider Unavailabl e Encounter Details Date Type Department Care Team (Late st Contact Info) Description 02/15/2005 18:16 EDT Hospital Encounter [address] [address] Denice Martinez MD [address] [place] [address], [address] [place] [phone] Social History Tobacco Use Types Packs/Day Years Used Date Smoking Tobacco: Never Smokeless Tobacco: Never Alcohol Use Standard Drinks/Week Comments No 0 (1 standard drink = 0.6 oz pur e alcohol) [facility] Utilities Answer Date Recorded In the past 12 months has [employer], gas, oil, or water [employer] threatened to shut off services in your [...] ORDERABLES Final Result [facility] [address] [place] [address] * URINE INFORMATION (02/15/2005 23:13 EDT) Period 25 hrs [facility] Specimen Volume 2025 mls [facility] 02/15/2005 23:1 3 EDT 02/15/2005 23:13 EDT us Denice Martinez MD URINALYSIS ORDERABLES Final Result Performing Organization Address [facility] Co de Phone Number [facility] [address] [place] [address] * (ABNORMAL) CREATININE CLEARANCE (02/15/2005 23:13 EDT) Creatinine Clearance 168.8(H) 87 - 107 ml/min [facility] Creatinine, Urn Me[place] 50.0 mg/dl [facility] 02/15/2005 23:1 3 EDT 02/15/2005 23:13 EDT us Denice Martinez MD URINALYSIS ORDERABLES Final Result Performing Organization Address [facility] Co de Phone Number [facility] [address] [place] [address] documented in this encounter Visit Diagnoses Not on filedocumented in this encounter
--- OUTSIDE RECORDS SUMMARY | 2024-10-18 21:53 | XMS_ITS | Encounter Summary ---
Author Organization [facility] Address [address] [place] [address] Care Team Providers Care Occupational Therapy Asst Name Role Phone Unavailable Primary Care Provider Unavailabl e Encounter Details Date Type Department Care Team (Late st Contact Info) Description 04/21/2005 23:18 EDT Hospital Encounter [facility] - Other [address] [place] [address] Denice Martinez MD [address] [place] [address], [facility] [address] [place] [phone] Social History Tobacco Use Types Packs/Day Years Used Date Smoking Tobacco: Never Smokeless Tobacco: Never Alcohol Use Standard Drinks/Week Comments No 0 (1 standard drink = 0.6 oz pur e alcohol) [facility] Utilities Answer Date Recorded In the past 12 months has [employer], gas, oil, or water [employer] threatened to shut off services in your [...]
--- OUTSIDE RECORDS SUMMARY | 2024-10-18 21:53 | XMS_ITS | Encounter Summary ---
Author Organization [facility] Address [address] [place] [address] Care Team Providers Care Lead Electrician Name Role Phone Unavailable Primary Care Provider Unavailabl e Encounter Details Date Type Department Care Team (Late st Contact Info) Description 09/23/2005 15:12 EST Hospital Encounter [facility] - Maple conversion [address] [place] [address] Pete Richey MD Social History Tobacco Use Types Packs/Day Years Used Date Smoking Tobacco: Never Smokeless Tobacco: Never Alcohol Use Standard Drinks/Week Comments No 0 (1 standard drink = 0.6 oz pur e alcohol) [facility] Utilities Answer Date Recorded In [...]
--- OUTSIDE RECORDS SUMMARY | 2024-10-18 21:53 | XMS_ITS | Encounter Summary ---
Author Organization [facility] Address [address] [place] [address] Care Team Providers Care Lithographers Printer Name Role Phone Unavailable Primary Care Provider Unavailabl e Encounter Details Date Type Department Care Team (Late st Contact Info) Description 06/10/2005 11:47 EDT Hospital Encounter [facility] - Other [address] [place] [address] Germain Mason MD [address] [place] [phone] Social History Tobacco Use Types Packs/Day Years Used Date Smoking Tobacco: Never Smokeless Tobacco: Never Alcohol Use Standard Drinks/Week Comments No 0 (1 standard drink = 0.6 oz pur e alcohol) [facility] Utilities Answer Date Recorded In the past 12 months has [employer], gas, oil, or water company threatened [...] ES Final Result [facility] [address] [place] [address] * (ABNORMAL) T4 FREE (06/10/2005 12:04 EDT) Free T4 2.4(H) 0.8 - 1.8 ng/dl [facility] 06/10/2005 12:0 4 EDT 06/10/2005 12:13 EDT Germain Mason MD CHEMISTRY & BLOOD GAS ORDERABL ES Final Result [facility] [address] [place] [address] documented in this encounter Visit Diagnoses Not on filedocumented in this encounter
--- OUTSIDE RECORDS SUMMARY | 2024-10-18 21:53 | XMS_ITS | Encounter Summary ---
Author Organization [facility] Address [address] [place] [address] Care Team Providers Care Sprinkler Repair Technician Name Role Phone Unavailable Primary Care Provider Unavailabl e Encounter Details Date Type Department Care Team (Late st Contact Info) Description 11/14/2006 12:16 EST Hospital Encounter [facility] - Other [address] [place] [phone] Denice Martinez MD [address] [place] [address], [facility] 4 [place] [phone] Discharge Disposition: Home or Self Care Social [...]
--- OUTSIDE RECORDS SUMMARY | 2024-10-18 21:53 | XMS_ITS | Encounter Summary ---
Author Organization [facility] Address [address] [place] [address] Care Team Providers Care Computator Name Role Phone Shannan Winter MD Primary Care Provider Unavail able Encounter Details Date Type Department Care Team (Late st Contact Info) Description 10/25/2007 Before PRISM Converted Visit (Maple) [facility] - Maple conversion [address] [place] [address] Kar Encinas MD [address] [place] [address], [facility] 5 [place] [phone] Social History Tobacco Use Types Packs/Day Years Used Date Smoking Tobacco: Never Assessed Comments Unknown Sex and Gender Information Value Date Recorded Sex Assigned at Not on file Legal Sex Female 18:04 EST Gender Identity Not on file Sexual Orientation Not on file documented as of this encounter Procedure Notes * Kar Encinas MD - 08/19/2009 0540 EST [facility] Colonoscopy Procedure Report Attending Physician: KAR [...] ENCINAS MD, M.D. on 10/25/2007 at 09:03 [employer] Document ID: [id number] * Kar Encinas MD - 08/19/2009 0540 EST [facility] Esophagogastroduodenoscopy Procedure Report Attending Physician: KAR [...] biopsy, then treat accordingly with referral to automatic stacker for gluten-free diet and repeat EGD with biopsy in 6 months. Performed By: The procedure was performed by Dr. Kar Encinas. Report electronically signed by Dr. KAR ENCINAS MD, M.D. on 10/25/2007 at 09:16 [facility] Document ID: [id number] documented in this encounter Plan of Treatment Not on file documented as of this encounter Visit Diagnoses Not on filedocumented in this encounter Care Teams Computator Relationship Specialty Start Date End Date Shannan Winter MD PCP - General 04/08/09 03/15/19 documented as of this encounter
--- OUTSIDE RECORDS SUMMARY | 2024-10-18 21:53 | XMS_ITS | Encounter Summary ---
Author Organization [facility] Address [address] [place] [address] Care Team Providers Care Medical Reception Specialist Name Role Phone Shannan Vieyra MD Primary Care Provider Unavail able Encounter Details Date Type Department Care Team (Late st Contact Info) Description 09/29/2005 Results Only [address] [phone] Sita Dunn Social History Tobacco Use Types [...] ISOLATED [facility] Report Status Final [id number] [facility] 09/29/2005 12:3 6 EST 09/29/2005 17:02 EST us Sita Dunn MICROBIOLOGY - GENERAL ORDERABLE S Final Result [facility] [address] [place] [address] documented in this encounter Visit Diagnoses Not on filedocumented in this encounter Care Teams Medical Reception Specialist Relationship Specialty Start Date End Date Shannan Vieyra MD PCP - General 04/08/09 03/15/19 documented as of this encounter
--- OUTSIDE RECORDS SUMMARY | 2024-10-18 21:53 | XMS_ITS | Encounter Summary ---
Author Organization [facility] Address [address] [place] [address] Care Team Providers Care Tankage Supervisor Name Role Phone Shannan Vieyra MD Primary Care Provider Unavail able Encounter Details Date Type Department Care Team (Late st Contact Info) Description 06/10/2005 Before PRISM Converted Visit (Maple) [facility] - Maple conversion [address] [place] [address] Germain Mason MD [address] [place] [address] [place] [phone] Social History Tobacco Use Types Packs/Day Years Used Date Smoking Tobacco: Never Assessed Comments Unknown Sex and Gender Information Value Date Recorded Sex Assigned at Not on file Legal Sex Female 18:04 EST Gender Identity Not on file Sexual Orientation Not on file documented as of this encounter Progress Notes * Celso, Gavin Rolfer - 12/10/2009 1102 EST DIVISION OF ENDOCRINOLOGY PROGRESS/FOLLOWUP NOTE - 06/10/2005 SUBJECTIVE: Doris is a pleasant 25-year-old woman with a history of Gravesdisease. She has had a normal delivery four weeks ago. Her hyperthyroidism continued during her for which we switched her over from methimazole to PTU 150 mg three times a day. This is her first visit [facility]. She is not complaining of [...] three times a day. Our recommendations for Doirs are as follows: 1. I would like [...] P - dd Job ID: Document ID: [id number] cc: documented in this encounter Plan of Treatment Not on file documented as of this encounter Visit Diagnoses Not on filedocumented in this encounter Care Teams Tankage Supervisor Relationship Specialty Start Date End Date Shannan Vieyra MD PCP - General 04/08/09 03/15/19 documented as of this encounter
--- OUTSIDE RECORDS SUMMARY | 2024-10-18 21:53 | XMS_ITS | Encounter Summary ---
Author Organization [facility] Address [address] [place] [address] Care Team Providers Care Shot Tube Machine Tender Name Role Phone Unavailable Primary Care Provider Unavailabl e Encounter Details Date Type Department Care Team (Latest Contact Info) Description 12/27/2007 21:28 EDT Hospital Encounter [facility] - Other [address] [place] [address] Juan Pablo Toth MD [address] [place] [address] [place] [phone] Discharge Disposition: Home or Self Care [...]
--- OUTSIDE RECORDS SUMMARY | 2024-10-18 21:53 | XMS_ITS | Encounter Summary ---
Author Organization [facility] Address [address] [place] [address] Care Team Providers Care Stock Preparation Operator Name Role Phone Unavailable Primary Care Provider Unavailabl e Encounter Details Date Type Department Care Team (Late st Contact Info) Description 04/15/2008 10:55 EDT Hospital Encounter [facility] - Maple conversion [address] [place] [address] Juan Pablo Toth MD [employer] [facility] [address] [place] [address] Social History Tobacco Use Types Packs/Day Years Used Date Smoking Tobacco: Never Smokeless Tobacco: Never Alcohol Use Standard Drinks/Week Comments No 0 (1 standard drink = 0.6 oz pur e alcohol) [facility] Utilities Answer Date Recorded In the past 12 months has [facility] electric, gas, oil, or water company [...] ? DORIS KERR ? Accession #: ? [id number] ? : ? 1980 (Age: 28) ??F [...] reviewed and electronically signed by: ? Jolynn Emily, CT(ASCP) ? Report Date: ??07/04/2008 09:35 ? End of Report ? [facility] 07/01/2008 07/02/2008 us Julita Martinez MD PATHOLOGY ORDERABLES Final R esult Performing Organization Address [facility] de Phone Number [facility] [address] [place] [address] * (ABNORMAL) TSH (04/15/2008 11:26 EDT) TSH <0.02(L) 0.35 - 5.00 uIU/mL [facility] Comment:Sample retested, res ult confirmed 04/15/2008 11:2 6 EDT 04/15/2008 11:27 EDT us Juan Pablo Toth MD CHEMISTRY & BLOOD [facility] Final Result Performing Organization Address [facility] de Phone Number [facility] [address] [place] [address] * T4 FREE (04/15/2008 11:26 EDT) Free T4 1.5 0.8 - 1.8 ng/dL [facility] 04/15/2008 11:2 6 EDT 04/15/2008 11:27 EDT us Juan Pablo Toth MD CHEMISTRY & BLOOD GAS ELLEN LAL Final Result [facility] [address] [place] [address] documented in this encounter Visit Diagnoses Not on filedocumented in this encounter
--- OUTSIDE RECORDS SUMMARY | 2024-10-18 21:54 | XMS_ITS | Encounter Summary ---
Author Organization [facility] Address [address] [place] [address] Care Team Providers Care Railroad Car Cleaner Name Role Phone Shannan Vieyra MD Primary Care Provider Unavail able Encounter Details Date Type Department Care Team (Late st Contact Info) Description 06/12/2004 Results Only [facility] - Maple conversion [address] [place] [address] Angelo William MD Social History Tobacco Use [...] S Final Result [facility] [address] [place] [address] * (ABNORMAL) HEMAGRAM AND DIFFERENTIAL (06/12/2004 7:55 EDT) WBC 6.00 4.0 - 12.4 K/cmm [facility] RBC 4.80 3.86 - 5.04 M/cmm [facility] Hemoglobin 13.5 11.6 - 15.2 gm/dl [facility] HCT 39.1 34.9 - 44.4 % [facility] MCV 81 81 - 98 fl [facility] MCH 28.1 26.7 - 33.3 pg [facility] MCHC 34.5 32.1 - 35.9 gm/dl [facility] PLT 202 141 - 320 K/cmm [facility] RDW-CV 15.8(H) 11.7 - 14.6 % [facility] 06/12/2004 7:55 EDT 06/12/2004 7:57 EDT us Angelo William MD PACKAGES & DNA PROBE ORDERABLE S Final Result Performing Organization Address [facility] Co de Phone Number [facility] [address] [place] [address] * (ABNORMAL) HEMAGRAM AND DIFFERENTIAL (06/12/2004 7:55 [...] ORDERABLE S Final Result Performing Organization Address City/[facility] Co de Phone Number [facility] [address] [place] [address] * (ABNORMAL) HEMAGRAM AND DIFFERENTIAL (06/12/2004 7:55 [...] LAB RDW-CV 15.8(H) 11.7 - 14.6 % [facility] 06/12/2004 7:55 EDT 06/12/2004 7:57 EDT us Angelo William MD PACKAGES & DNA PROBE ORDERABLE S Final Result [facility] [address] [place] [address] documented in this encounter Visit Diagnoses Not on filedocumented in this encounter Care Teams Railroad Car Cleaner Relationship Specialty Start Date End Date Shannan Vieyra MD PCP - General 04/08/09 03/15/19 documented as of this encounter
--- OUTSIDE RECORDS SUMMARY | 2024-10-18 21:54 | XMS_ITS | Encounter Summary ---
Author Organization [facility] Address [address] [place] [address] Care Team Providers Care Social Security Assessor Name Role Phone Shannan Vieyra MD Primary Care Provider Unavail able Encounter Details Date Type Department Care Team (Late st Contact Info) Description 06/16/[address] [facility] - Maple conversion [address] [place] [address] Angelo William MD Social History Tobacco Use [...] Final Result Performing Organization Address [facility] de Phone Number [facility] [address] [place] [address] * CREATININE (06/16/2004 5:45 EDT) Creatinine 0.7 0.7 - 1.5 mg/dl [facility] 06/16/2004 5:45 EDT 06/16/2004 7:02 EDT Angelo William MD HISTORICAL LAB FOR SQ LOAD Fin al Result Performing Organization Address [facility] de Phone Number [facility] [address] [place] [address] * (ABNORMAL) BUN (06/16/2004 5:45 EDT) BUN 7(L) 10 - 26 mg/dl [facility] 06/16/2004 5:45 EDT 06/16/2004 7:02 EDT Angelo William MD CHEMISTRY & BLOOD GAS ORDERABL ES Final Result Performing Organization Address [facility] de Phone Number [facility] [address] [place] [address] * ELECTROLYTES (06/16/2004 5:45 EDT) Sodium 140 [...] Final Result Performing Organization Address [facility] de Phone Number [facility] [address] [place] [address] * CREATININE (06/16/2004 5:45 EDT) Creatinine 0.7 0.7 - 1.5 mg/dl [facility] 06/16/2004 5:45 EDT 06/16/2004 7:02 EDT us Angelo William MD HISTORICAL LAB FOR SQ LOAD Fin al Result Performing Organization Address [facility] de Phone Number [facility] [address] [place] [address] * (ABNORMAL) BUN (06/16/2004 5:45 EDT) BUN 7(L) 10 - 26 mg/dl [facility] 06/16/2004 5:45 EDT 06/16/2004 7:02 EDT us Angelo William MD CHEMISTRY & BLOOD GAS ORDERABL ES Final Result Performing Organization Address [facility] de Phone Number [facility] [address] [place] [address] documented in this encounter Visit Diagnoses Not on filedocumented in this encounter Care Teams Social Security Assessor Relationship Specialty Start Date End Date Shannan Vieyra MD PCP - General 04/08/09 03/15/19 documented as of this encounter
--- OUTSIDE RECORDS SUMMARY | 2024-10-18 21:54 | XMS_ITS | Encounter Summary ---
Author Organization [facility] Address [address] [place] [address] Care Team Providers Care Photoengraving Finisher Name Role Phone Shannan Vieyra MD Primary Care Provider Unavail able Encounter Details Date Type Department Care Team (Late st Contact Info) Description 04/02/2004 Office Visit [facility] Cardiology - Main [address] [address] Pete Richey MD Social History Tobacco Use [...] on filedocumented in this encounter Care Teams Photoengraving Finisher Relationship Specialty Start Date End Date Shannan Vieyra MD PCP - General 04/08/09 03/15/19 documented as of this encounter
--- OUTSIDE RECORDS SUMMARY | 2024-10-18 21:54 | XMS_ITS | Encounter Summary ---
Author Organization [facility] Address [address] [place] [address] Care Team Providers Care Turn Machine Operator Name Role Phone Shannan Vieyra MD Primary Care Provider Unavail able Encounter Details Date Type Department Care Team (Late st Contact Info) Description 04/19/2004 Office Visit [facility] - Maple conversion [address] [place] [address] Richard Fajardo MD [facility] [place] [address] Social History Tobacco Use Types [...] substitute OK. Follow-up: Follow up with [facility] Richard Fajardo M.D. (Electronically signed Richard [...] has had nausea and vomiting. (dizziness). 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 PAST HX: Last normal menstrual [...] patient was discharged home and accompanied by merchandising consultant. The patient left the Emergency Department ambulatory [...] on filedocumented in this encounter Care Teams Turn Machine Operator Relationship Specialty Start Date End Date Shannan Vieyra MD PCP - General 04/08/09 03/15/19 documented as of this encounter
--- OUTSIDE RECORDS SUMMARY | 2024-10-18 21:54 | XMS_ITS | Encounter Summary ---
Author Organization [facility] Address [address] [place] [address] Care Team Providers Care Lead Shipper Name Role Phone Shannan Vieyra MD Primary Care Provider Unavail Leida Jackson PA-C Primary Care Provi melvin Comfort Zelaya NP Primary Care Provider [phone] Encounter Details Date Type Department Care Team (Late st Contact Info) Description 06/10/2004 Before PRISM Converted Visit (Maple) [facility] - Maple conversion [address] [place] [address] Paradise Padilla MD [address] [place] [address] Social History Tobacco Use Types Packs/Day Years [...] filedocumented in this encounter Care Teams Lead Shipper Relationship Specialty Start Date End Date Shannan Vieyra MD PCP - General 04/08/09 03/15/19 Leida Cerda PA-C PCP - General 03/16/19 03/07/22 Comfort Zelaya NP [address] [place] [address] PCP - General Family Medicine - Primary Care 03/08/22 documented as of this encounter
--- OUTSIDE RECORDS SUMMARY | 2024-10-18 21:54 | XMS_ITS | Encounter Summary ---
Author Organization [facility] Address [address] [place] [address] Care Team Providers Care Summer Law Clerk Name Role Phone Shannan Vieyra MD Primary Care Provider Unavail able Encounter Details Date Type Department Care Team (Late st Contact Info) Description 07/13/2004 Office Visit [facility] Cardiology - [address] [address] Pete Richey MD Discharge Disposition: Auto Discharge [...] AGALACTIAE) [facility] Report Status Final [id number] [facility] 07/13/2004 10:0 0 EDT 07/13/2004 15:35 EDT Richard Covarrubias MD MICROBIOLOGY - GENERAL ORDERABLES Final Result Performing Organization Address [facility] de Phone Number [facility] [address] [place] [address] * (ABNORMAL) URINE MICROSCOPIC (07/13/2004 10:00 EDT) [...] URINALYSIS ORDERABLES Final Result Performing Organization Address [facility] de Phone Number [facility] [address] [place] [address] * (ABNORMAL) URINALYSIS (07/13/2004 10:00 EDT) Color, UA Yellow [facility] Clarity, UA Hazy [facility] Glucose, UA Norm NORM [facility] Bilirubin, UA Neg NEG [facility] Ketones, UA Neg NEG [facility] Specific [place], Urine 1.020 1.005 - 1.02 [facility] [...] URINALYSIS ORDERABLES Final Result Performing Organization Address City/State/[facility] Co de Phone Number [facility] [address] [place] [address] documented in this encounter Visit Diagnoses Not on filedocumented in this encounter Care Teams Summer Law Clerk Relationship Specialty Start Date End Date Shannan Vieyra MD PCP - General 04/08/09 03/15/19 documented as of this encounter
--- OUTSIDE RECORDS SUMMARY | 2024-10-18 21:54 | XMS_ITS | Encounter Summary ---
Author Organization [facility] Address [address] [place] [address] Care Team Providers Care Airport Electrician Name Role Phone Unavailable Primary Care Provider Unavailabl e Encounter Details Date Type Department Care Team (Latest Contact Info) Description 06/05/2004 23:56 EDT - 06/06/2004 11:59 EDT Hospital Encounter [facility] Emergency Department - [address] [address] Emergency, Default, MD Discharge Disposition: Home or [...] growth [facility] Report Status Final [id number] [facility] 06/06/2004 2:30 EDT 06/06/2004 2:43 EDT us Default Emergency MD MICROBIOLOGY - GENERAL ORDE RABLES Final Result Performing Organization Address [facility]/ZIP Co de Phone Number [facility] [address] [place] [address] * HOLD SST (06/06/2004 2:30 EDT) Hold SST Hold for further testing. Specimen will be held for 30 days. [facility] 06/06/2004 2:30 EDT 06/06/2004 2:40 EDT us Default Emergency MD LAB INFO SERVICE AND SUPPOR T & PHONE RESULT Final Result Performing Organization Address [facility] Co de Phone Number [facility] [address] [place] [address] * (ABNORMAL) HEMAGRAM AND DIFFERENTIAL (06/06/2004 2:30 [...] ORDERA JEREMIAS Final Result Performing Organization Address City/[facility] Co de Phone Number [facility] [address] [place] [address] * BACTERIAL CULTURE, BLOOD (06/06/2004 2:15 EDT) Specimen Description Blood Left Arm [facility] Result STAPHYLOCOCCU S, COAGULASE NEGATIVE Isolated in one bottle. First detected in less than 24 hours. [facility] Report Status Final [id number] [facility] 06/06/2004 2:15 EDT 06/06/2004 2:42 EDT us Default Emergency MICROBIOLOGY - GENERAL ELLEN LAL Final Result Performing Organization Address City/[facility] Co de Phone Number [facility] [address] [place] [address] * CT HEAD WO CONTRAST (06/06/2004 1:47 [...]
--- OUTSIDE RECORDS SUMMARY | 2024-10-18 21:54 | XMS_ITS | Encounter Summary ---
Author Organization [facility] Address [address] [place] [address] Care Team Providers Care Home Appliance Technician Name Role Phone Shannan Vieyra MD Primary Care Provider Unavail able Encounter Details Date Type Department Care Team (Late st Contact Info) Description 10/12/2004 Office Visit [facility] - Maple conversion [address] [place] [address] Royal Saunders PA-C [address] [place] [address] Social History Tobacco Use Types Packs/Day Years [...] filedocumented in this encounter Care Teams Home Appliance Technician Relationship Specialty Start Date End Date Shannan Vieyra MD PCP - General 04/08/09 03/15/19 documented as of this encounter
--- OUTSIDE RECORDS SUMMARY | 2024-10-18 21:54 | XMS_ITS | Encounter Summary ---
Author Organization [facility] Address [address] [place] [address] Care Team Providers Care Quality Engineer Medical Device Name Role Phone Shannan Vieyra MD Primary Care Provider Unavail Leida Jackson PA-C Primary Care Provi melvin Comfort Zelaya NP Primary Care Provider [phone] Encounter Details Date Type Department Care Team (Late st Contact Info) Description 06/10/2004 Before PRISM Converted Visit (Maple) [facility] - Maple conversion [address] [place] [address] Paradise Padilla MD [address] [place] [address] Social History Tobacco Use Types Packs/Day Years [...] filedocumented in this encounter Care Teams Quality Engineer Medical Device Relationship Specialty Start Date End Date Shannan Vieyra MD PCP - General 04/08/09 03/15/19 Leida Cerda PA-C PCP - General 03/16/19 03/07/22 Comfort Zelaya NP [address] [place] [address] PCP - General Family Medicine - Primary Care 03/08/22 documented as of this encounter
--- OUTSIDE RECORDS SUMMARY | 2024-10-18 21:54 | XMS_ITS | Encounter Summary ---
Author Organization [facility] Address [address] [place] [address] Care Team Providers Care Instrumentation Manager Name Role Phone Unavailable Primary Care Provider Unavailabl e Encounter Details Date Type Department Care Team (Late st Contact Info) Description 06/29/2004 9:37 EDT Hospital Encounter [facility] - Other [address] [place] [address] Leida Cerda PA-C [address] [place] [address] Social History Tobacco Use Types Packs/Day Years Used Date Smoking Tobacco: Never Smokeless Tobacco: Never Alcohol Use Standard Drinks/Week Comments No 0 (1 standard drink = 0.6 oz pur e alcohol) [facility] Utilities Answer Date Recorded In the past 12 months has [employer] electric, gas, oil, or water company threatened [...]
--- OUTSIDE RECORDS SUMMARY | 2024-10-18 21:54 | XMS_ITS | Encounter Summary ---
Author Organization [facility] Address [address] [place] [address] Care Team Providers Care Director Career Name Role Phone Unavailable Primary Care Provider Unavailabl e Encounter Details Date Type Department Care Team (Latest Contact Info) Description 10/12/2004 2:29 EST - 10/12/2004 11:59 EST Hospital Encounter [facility] [place] [address] Emergency, Default, MD Discharge Disposition: Home or [...] Result No Neisseria gonorrhoeae DNA detected by storage receipt poster mediated amplification. [facility] Report Status Final [id number] [facility] Specimen Description Cervix [facility] 10/14/2004 11:0 9 EST 10/15/2004 11:09 EST True Ledesma MD MICROBIOLOGY - GENERAL OR DERABLES Final Result Performing Organization Address [facility] Co de Phone Number [facility] [address] [place] [address] * CHLAMYDIA TRACHOMATIS AMPLIFIED PROBE (10/14/2004 11:09 EST) Specimen Description Cervix [facility] Result No Chlamydia trachomatis DNA detected by storage receipt poster mediated amplification. [facility] Report Status Final [id number] [facility] 10/14/2004 11:0 9 EST 10/15/2004 11:09 EST True Ledesma MD MICROBIOLOGY - GENERAL OR DERABLES Final Result Performing Organization Address [facility] de Phone Number [facility] [address] [place] [address] documented in this encounter Visit Diagnoses Not on filedocumented in this encounter
--- OUTSIDE RECORDS SUMMARY | 2024-10-18 21:54 | XMS_ITS | Encounter Summary ---
Author Organization [facility] Address [address] [place] [address] Care Team Providers Care Sectionizer Name Role Phone Shannan Vieyra MD Primary Care Provider Unavail able Encounter Details Date Type Department Care Team (Late st Contact Info) Description 06/14/2004 Results Only [facility] - Maple conversion [address] [place] [address] Angelo William MD Social History Tobacco Use [...] S Final Result [facility] [address] [place] [address] * (ABNORMAL) HEMAGRAM AND DIFFERENTIAL (06/14/2004 8:10 [...] ORDERABLE S Final Result Performing Organization Address [facility] [place]/[facility] Co de Phone Number [facility] [address] [place] [address] * HEMAGRAM AND DIFFERENTIAL (06/14/2004 8:10 EDT) [...] ORDERABLE S Final Result Performing Organization Address [facility] [place]/[facility] Co de Phone Number [facility] [address] [place] [address] * (ABNORMAL) HEMAGRAM AND DIFFERENTIAL (06/14/2004 8:10 [...] S Final Result [facility] [address] [place] [address] documented in this encounter Visit Diagnoses Not on filedocumented in this encounter Care Teams Sectionizer Relationship Specialty Start Date End Date Shannan Vieyra MD PCP - General 04/08/09 03/15/19 documented as of this encounter
--- OUTSIDE RECORDS SUMMARY | 2024-10-18 21:54 | XMS_ITS | Encounter Summary ---
Author Organization [facility] Address [address] [place] [address] Care Team Providers Care Admissions Assistant Name Role Phone Shannan Vieyra MD Primary Care Provider Unavail able Encounter Details Date Type Department Care Team (Late st Contact Info) Description 06/05/[address] [facility] - Maple conversion [address] [place] [address] Cassy Craig MD [address] [place] [address] Social History Tobacco Use Types [...] ISOLATED [facility] Report Status Final [id number] [facility] 06/05/2004 12:0 3 EDT 06/05/2004 16:37 EDT us Cassy Craig MD MICROBIOLOGY - GENERAL ELLEN LAL Final Result [facility] [address] [place] [address] documented in this encounter Visit Diagnoses Not on filedocumented in this encounter Care Teams Admissions Assistant Relationship Specialty Start Date End Date Shannan Vieyra MD PCP - General 04/08/09 03/15/19 documented as of this encounter
--- OUTSIDE RECORDS SUMMARY | 2024-10-18 21:54 | XMS_ITS | Encounter Summary ---
Author Organization [facility] Address [address] [place] [address] Care Team Providers Care Television Announcer Name Role Phone Shannan Vieyra MD Primary Care Provider Unavail Leida Jackson PA-C Primary Care Provi melvin Comfort Zelaya NP Primary Care Provider [phone] Encounter Details Date Type Department Care Team (Late st Contact Info) Description 06/10/2004 Before PRISM Converted Visit (Maple) [facility] - Maple conversion [address] [place] [address] Paradise Padilla MD [address] [place] [address] Social History Tobacco Use Types Packs/Day Years [...] on filedocumented in this encounter Care Teams Television Announcer Relationship Specialty Start Date End Date Shannan Vieyra MD PCP - General 04/08/09 03/15/19 Leida Cerda PA-C PCP - General 03/16/19 03/07/22 Comfort Zelaya NP [address] [place] [address] PCP - General Family Medicine - Primary Care 03/08/22 documented as of this encounter
--- OUTSIDE RECORDS SUMMARY | 2024-10-18 21:54 | XMS_ITS | Encounter Summary ---
Author Organization [facility] Address [address] [place] [address] Care Team Providers Care New Product Trainer Name Role Phone Unavailable Primary Care Provider Unavailabl e Encounter Details Date Type Department Care Team (Latest Contact Info) Description 06/06/2004 19:55 EDT - 06/07/2004 11:59 EDT Hospital Encounter [facility] [place] [address] Emergency, Default, MD Discharge Disposition: Home or [...] upper quadrant ultrasound of 06/06/04. FINDINGS: Preliminary employee benefits specialist KUB shows an unremarkable bowel-gas pattern. The [...] upper quadrant ultrasound of 06/06/04. FINDINGS: Preliminary employee benefits specialist KUB shows an unremarkable bowel-gas pattern. The [...] postvoid residual. / us Angelo William MD [facility] ORDERAB LES Final Result * CHEST PA AND LATERAL (06/06/2004 23:57 EDT) Anatomical Region Laterality Modality Other 06/06/2004 23:5 7 EDT Impressions 06/09/2009 16:10 EDT IMPRESSION: Negative chest. /[facility] Narrative 06/09/2009 16:10 EDT FEVER INFILTRATE CHEST 2 VIEWS PA and lateral views of the chest are essentially normal. There is no evidence of pneumonia. Procedure Note Angelo Dwyer MD - 06/09/2009 FEVER INFILTRATE CHEST 2 VIEWS PA and lateral views of the chest are essentially normal. There is no evidence of pneumonia. IMPRESSION IMPRESSION: Negative chest. /[facility] Mitzi ARAUJO [facility] ORDERA BLES Final Result * [...]
--- OUTSIDE RECORDS SUMMARY | 2024-10-18 21:54 | XMS_ITS | Encounter Summary ---
Author Organization [facility] Address [address] [place] [address] Care Team Providers Care Fretted Instrument Maker Hand Name Role Phone Unavailable Primary Care Provider Unavailabl e Encounter Details Date Type Department Care Team (Latest Contact Info) Description 10/22/2004 18:14 EST Hospital Encounter [address] [address] True Ledesma MD [address] [place] [address] Discharge Disposition: Auto Discharge Social History Tobacco [...] Procedure Name Priority Date/Time Associated Diagnosis Comments [facility] DETAILED Routine 12/24/2004 15:00 EST documented in this encounter Results * [facility] DETAILED (12/24/2004 15:00 EST) Anatomical Region Laterality Modality Other 12/24/2004 15:0 0 EST Narrative 06/05/2009 11:06 EDT [id number],GRAVES DISEASE,DRUG EXPOSURE IST TRI Please refer to the separate [facility] report. Procedure Note Efe Acuña MD - 06/05/2009 [id number],GRAVES DISEASE,DRUG EXPOSURE IST TRI Please refer to the separate [facility] report. True Ledesma MD [facility] ORDERABLES Fin al Result documented in this encounter Visit Diagnoses Not on filedocumented in this encounter
--- OUTSIDE RECORDS SUMMARY | 2024-10-18 21:54 | XMS_ITS | Encounter Summary ---
Author Organization [facility] Address [address] [place] [address] Care Team Providers Care Account Processor Name Role Phone Shanann Vieyra MD Primary Care Provider Unavail Leida Jackson PA-C Primary Care Provi melvin Comfort Zelaya NP Primary Care Provider [phone] Encounter Details Date Type Department Care Team (Late st Contact Info) Description 06/10/2004 Before PRISM Converted Visit (Maple) [facility] - Maple conversion [address] [place] [address] Paradise Padilla MD [address] [place] [address] Social History Tobacco Use Types Packs/Day Years [...] on filedocumented in this encounter Care Teams Account Processor Relationship Specialty Start Date End Date Shannan Vieyra MD PCP - General 04/08/09 03/15/19 Leida Cerda PA-C PCP - General 03/16/19 03/07/22 Comfort Zelaya NP [address] [place] [address] PCP - General Family Medicine - Primary Care 03/08/22 documented as of this encounter
--- OUTSIDE RECORDS SUMMARY | 2024-10-18 21:54 | XMS_ITS | Encounter Summary ---
Author Organization [facility] Address [address] [place] [address] Care Team Providers Care Supervisor Bakery Sanitation Name Role Phone Shannan Vieyra MD Primary Care Provider Unavail able Encounter Details Date Type Department Care Team (Late st Contact Info) Description 04/20/2004 Before PRISM Converted Visit (Maple) [facility] - Maple conversion [address] [place] [address] Arvind Avitia MD Social History Tobacco Use [...] filedocumented in this encounter Care Teams Supervisor Bakery Sanitation Relationship Specialty Start Date End Date Shannan Vieyra MD PCP - General 04/08/09 03/15/19 documented as of this encounter
--- OUTSIDE RECORDS SUMMARY | 2024-10-18 21:54 | XMS_ITS | Encounter Summary ---
Author Organization [facility] Address [address] [place] [address] Care Team Providers Care Pharmacy Intake Technician Name Role Phone Shannan Vieyra MD Primary Care Provider Unavail able Encounter Details Date Type Department Care Team (Late st Contact Info) Description 06/13/2004 Results Only [facility] - Maple conversion [address] [place] [address] Angelo William MD Social History Tobacco Use [...] S Final Result [facility] [address] [place] [address] * (ABNORMAL) HEMAGRAM AND DIFFERENTIAL (06/13/2004 6:00 [...] ORDERABLE S Final Result Performing Organization Address [facility] Co de Phone Number [facility] [address] [place] [address] * (ABNORMAL) HEMAGRAM AND DIFFERENTIAL (06/13/2004 6:00 [...] ORDERABLE S Final Result Performing Organization Address [facility] Co de Phone Number [facility] [address] [place] [address] * (ABNORMAL) HEMAGRAM AND DIFFERENTIAL (06/13/2004 6:00 [...] S Final Result [facility] [address] [place] [address] documented in this encounter Visit Diagnoses Not on filedocumented in this encounter Care Teams Pharmacy Intake Technician Relationship Specialty Start Date End Date Shannan Vieyra MD PCP - General 04/08/09 03/15/19 documented as of this encounter
--- OUTSIDE RECORDS SUMMARY | 2024-10-18 21:54 | XMS_ITS | Encounter Summary ---
Author Organization [facility] Address [address] [place] [address] Care Team Providers Care Window Air Conditioner Installer Name Role Phone Unavailable Primary Care Provider Unavailabl e Encounter Details Date Type Department Care Team (Late st Contact Info) Description 10/14/2004 23:36 EST Hospital Encounter [facility] [place] [facility] - Other [address] [place] [address] True Ledesma MD [address] [place] [address] Social History Tobacco Use Types Packs/Day Years Used Date Smoking Tobacco: Never Smokeless Tobacco: Never Alcohol Use Standard Drinks/Week Comments No 0 (1 standard drink = 0.6 oz pur e alcohol) [facility] Utilities Answer Date Recorded [...]
--- OUTSIDE RECORDS SUMMARY | 2024-10-18 21:54 | XMS_ITS | Encounter Summary ---
Author Organization [facility] Address [address] [place] [address] Care Team Providers Care It Quality Analyst Name Role Phone Unavailable Primary Care Provider Unavailabl e Encounter Details Date Type Department Care Team (Late st Contact Info) Description 06/26/2004 8:14 EDT - 06/26/2004 11:59 EDT Hospital Encounter [address] [address] Richard Covarrubias MD [address] [place] [address], [address] [place] [phone] Discharge Disposition: Auto Discharge Social History Tobacco [...] evidence of obstruction. dw Richard Covarrubias MD [facility] ORDERABLES Nellie l Result documented in this encounter Visit Diagnoses Not on filedocumented in this encounter
--- OUTSIDE RECORDS SUMMARY | 2024-10-18 21:54 | XMS_ITS | Encounter Summary ---
Author Organization [facility] Address [address] [place] [address] Care Team Providers Care Design Draftsman Name Role Phone Unavailable Primary Care Provider Unavailabl e Encounter Details Date Type Department Care Team (Late st Contact Info) Description 01/19/2005 16:47 EDT Hospital Encounter [facility] - [address] [address] Denice Martinez MD [address] [place] [address] [address] [place] [phone] Social History Tobacco Use Types Packs/Day Years Used Date Smoking Tobacco: Never Smokeless Tobacco: Never Alcohol Use Standard Drinks/Week Comments No 0 (1 standard drink = 0.6 oz pur e alcohol) [facility] Utilities Answer Date Recorded In the past 12 months has [facility] [employer], gas, oil, or water [employer] threatened to shut off services in your [...] <0.90 ? TEST PERFORMED OR REFERRED BY [facility] ? [address] ? [place] [address] ? Health Economist: ? Pawan Saunders M.D. ? [facility] Parvovirus IgM Ab 0.13Unit: index(Note) -- EXPECTED VALUES -- ? (Ref Range) <0.90 ? [facility] Interpretation (Note) Results suggest past infection. ? TEST PERFORMED OR REFERRED BY [facility] ? [address] ? [place] [address] ? Health Economist: ? Pawan Saunders M.D. ? [facility] 01/19/2005 16:4 9 EDT 01/19/2005 17:03 EDT us Denice Martinez MD IMMUNOLOGY AND SEROLOGY ELLEN LAL Final Result [facility] [address] [place] [address] documented in this encounter Visit Diagnoses Not on filedocumented in this encounter
--- OUTSIDE RECORDS SUMMARY | 2024-10-18 21:54 | XMS_ITS | Encounter Summary ---
Author Organization [facility] Address [address] [place] [address] Care Team Providers Care Feed House Supervisor Name Role Phone Shannan Vieyra MD Primary Care Provider Unavail able Encounter Details Date Type Department Care Team (Late st Contact Info) Description 03/24/2004 Results Only [facility] [place] [facility] Family Medicine - [place] [address] [place], [place] [address] Leida Cerda PA-C [address] [facility] [address] [place], [place] [address] Social History Tobacco Use Types Packs/Day Years [...] * (ABNORMAL) TSH (03/24/2004 13:54 EDT) Pathologist [facility] TSH <0.02(L) 0.35 - 5.50 uIU/ml [facility] 03/24/2004 13:5 4 EDT 03/24/2004 18:51 EDT Leida Cerda PA-C CHEMISTRY & BLOOD G ORDERABLES Final Result Performing Organization Address [facility] Co de Phone Number [facility] [address] [place] [address] * (ABNORMAL) T3, TOTAL (03/24/2004 13:54 EDT) Pathologist [facility] T3, Total 294(H) 60 - 181 ng/dl [facility] 03/24/2004 13:5 4 EDT 03/24/2004 18:51 EDT Leida Cerda PA-C CHEMISTRY & BLOOD G ORDERABLES Final Result Performing Organization Address [facility] Co de Phone Number [facility] [address] [place] [address] * LIVER FUNCTION TESTS (03/24/2004 13:54 EDT) Pathologist [facility] Albumin 3.5 3.4 - 4.9 g/dl [facility] Total Protein 7.0 6.5 - [...] ORDERABLES Final Result Performing Organization Address City/[facility]/ZIP Co de Phone Number [facility] [address] [place] [address] * (ABNORMAL) T4 FREE (03/24/2004 13:54 EDT) Free T4 2.0(H) 0.8 - 1.8 ng/dl [facility] 03/24/2004 13:5 4 EDT 03/24/2004 18:51 EDT Leida Cerda PA-C CHEMISTRY & BLOOD G ORDERABLES Final Result Performing Organization Address [facility] Co de Phone Number [facility] [address] [place] [address] * HEMAGRAM AND DIFFERENTIAL (03/24/2004 13:54 EDT) [...] ORDERABLES Final Result [facility] [address] [place] [address] documented in this encounter Visit Diagnoses Not on filedocumented in this encounter Care Teams Feed House Supervisor Relationship Specialty Start Date End Date Shannan Vieyra MD PCP - General 04/08/09 03/15/19 documented as of this encounter
--- OUTSIDE RECORDS SUMMARY | 2024-10-18 21:54 | XMS_ITS | Encounter Summary ---
Author Organization [facility] Address [address] [place] [address] Care Team Providers Care Assistant Professor Of Dietetics Name Role Phone Unavailable Primary Care Provider Unavailabl e Encounter Details Date Type Department Care Team (Late st Contact Info) Description 01/06/2005 10:52 EST Hospital Encounter [facility] - [address] [address] Denice Martinez MD [address] [place] [address] [address] [place] [phone] Social History Tobacco Use Types Packs/Day Years Used Date Smoking Tobacco: Never Smokeless Tobacco: Never Alcohol Use Standard Drinks/Week Comments No 0 (1 standard drink = 0.6 oz pur e alcohol) [facility] Utilities Answer Date Recorded In the past 12 months has [facility] [employer], gas, oil, or water [employer] threatened to shut off services in your [...] ORDERA BLES Final Result [facility] [address] [place] [address] * (ABNORMAL) T4 FREE (01/06/2005 10:55 EST) Free T4 2.2(H) 0.8 - 1.8 ng/dl [facility] 01/06/2005 10:5 5 EST 01/06/2005 10:56 EST us Denice Martinez MD CHEMISTRY & BLOOD GAS ORDERA BLES Final Result [facility] [address] [place] [address] documented in this encounter Visit Diagnoses Not on filedocumented in this encounter
--- OUTSIDE RECORDS SUMMARY | 2024-10-18 21:54 | XMS_ITS | Encounter Summary ---
Author Organization [facility] Address [address] [place] [address] Care Team Providers Care Presser And Shaper Knitted Goods Name Role Phone Shannan Vieyra MD Primary Care Provider Unavail able Encounter Details Date Type Department Care Team (Late st Contact Info) Description 10/22/2004 Results Only [facility] - Maple conversion [address] [place] [address] BaltazarTrue richardson MD [address] [place] [address] Social History Tobacco Use Types Packs/Day Years [...] organism [facility] Report Status Final [id number] [facility] 10/22/2004 18:1 5 EST 10/22/2004 18:17 EST True Ledesma MD MICROBIOLOGY - GENERAL OR DERABLES Final Result Performing Organization Address [facility] Phone Number [facility] [address] [place] [address] * UA REFLEX (10/22/2004 18:15 EST) Pathologist [facility] UA Billing Microscopic not indicated. [facility] 10/22/2004 18:1 5 EST 10/22/2004 18:17 EST True Ledesma MD URINALYSIS ORDERABLES Fin al Result Performing Organization Address [facility] de Phone Number [facility] [address] [place] [address] * URINALYSIS (10/22/2004 18:15 EST) Color, UA Yellow [facility] Clarity, UA Clear [facility] Glucose, UA Norm NORM [facility] Bilirubin, UA Neg NEG [facility] Ketones, UA Neg NEG [facility] Specific [place], Urine 1.010 1.005 - 1.02 [facility] [...] al Result Performing Organization Address [facility] de Phone Number [facility] [address] [place] [address] * (ABNORMAL) TSH (10/22/2004 18:13 EST) TSH <0.02(L) 0.35 - 5.50 uIU/ml [facility] 10/22/2004 18:1 3 EST 10/22/2004 18:16 EST True Ledesma MD CHEMISTRY & BLOOD GAS ORD ERABLES Final Result Performing Organization Address [facility] Phone Number [facility] [address] [place] [address] * (ABNORMAL) T4 (10/22/2004 18:13 EST) T4, Total 18.2(H) 4.5 - 10.9 ug/dl [facility] 10/22/2004 18:1 3 EST 10/22/2004 18:16 EST True Ledesma MD CHEMISTRY & BLOOD GAS ORD ERABLES Final Result Performing Organization Address [facility] de Phone Number [facility] [address] [place] [address] * (ABNORMAL) T3, TOTAL (10/22/2004 18:13 EST) T3, Total 395(H) 60 - 181 ng/dl [facility] 10/22/2004 18:1 3 EST 10/22/2004 18:16 EST us True Ledesma MD CHEMISTRY & BLOOD GAS ORD ERABLES Final Result [facility] [address] [place] [address] * (ABNORMAL) T4 FREE (10/22/2004 18:13 EST) Free T4 3.0(H) 0.8 - 1.8 ng/dl [facility] 10/22/2004 18:1 3 EST 10/22/2004 18:16 EST True Ledesma MD CHEMISTRY & BLOOD GAS ORD ERABLES Final Result Performing Organization Address City/[facility] Co de Phone Number [facility] [address] [place] [address] * PROFILE (10/22/2004 18:13 EST) ABO and [...] LAL Final Result [facility] [address] [place] [address] documented in this encounter Visit Diagnoses Not on filedocumented in this encounter Care Teams Presser And Shaper Knitted Goods Relationship Specialty Start Date End Date Shannan Vieyra MD PCP - General 04/08/09 03/15/19 documented as of this encounter
--- OUTSIDE RECORDS SUMMARY | 2024-10-18 21:54 | XMS_ITS | Encounter Summary ---
Author Organization [facility] Address [address] [place] [address] Care Team Providers Care Laborer Shellfish Processing Name Role Phone Unavailable Primary Care Provider Unavailabl e Encounter Details Date Type Department Care Team (Late st Contact Info) Description 04/20/2004 1:59 EDT - 04/20/2004 11:59 EDT Hospital Encounter [facility] [address] [place] [address] Shannan Vieyra MD Bak, Christopher Dockery MD [address] [facility], [address] [place] [address] Discharge Disposition: Home or Self [...] Performing Organization Address [facility] Co de Phone Number [facility] [address] [place] [address] * CREATININE (04/20/2004 7:12 EDT) Creatinine 0.7 0.7 - 1.5 mg/dl [facility] 04/20/2004 7:12 EDT 04/20/2004 7:43 EDT Shannan Vieyra MD HISTORICAL LAB FOR SQ LOAD Fin al Result Performing Organization Address [facility] de Phone Number [facility] [address] [place] [address] * (ABNORMAL) HEMAGRAM AND DIFFERENTIAL (04/20/2004 7:12 EDT) WBC 7.97 4.0 - 12.4 K/cmm [facility] RBC 4.50 3.86 - 5.04 M/cmm [facility] Hemoglobin 12.1 11.6 - 15.2 gm/dl [facility] HCT 36.4 34.9 - 44.4 % [facility] MCV 81 81 - 98 fl [...] ORDERABLE S Final Result Performing Organization Address [facility] de Phone Number [facility] [address] [place] [address] * (ABNORMAL) BUN (04/20/2004 7:12 EDT) Pathologist [facility] BUN 4(L) 10 - 26 mg/dl [facility] 04/20/2004 7:12 EDT 04/20/2004 7:43 EDT Shannan Vieyra MD CHEMISTRY & BLOOD GAS ORDERABL ES Final Result Performing Organization Address [facility] de Phone Number [facility] [address] [place] [address] * BACTERIAL CULTURE, URINE (04/20/2004 6:30 EDT) Specimen Description Urine [facility] Result Greater than 100,000 CFU/ml LACTOBACILL US SPECIES [facility] Report Status Final [id number] [facility] 04/20/2004 6:30 EDT 04/20/2004 7:54 EDT us Shannan Vieyra MD MICROBIOLOGY - GENERAL ORDERAB LES Final Result Performing Organization Address [facility] de Phone Number [facility] [address] [place] [address] * (ABNORMAL) ELECTROLYTES (04/19/2004 23:45 EDT) Sodium [...] ORDER ENDY Final Result Performing Organization Address City/[facility]/ZIP Co de Phone Number [facility] [address] [place] [address] * (ABNORMAL) CREATININE (04/19/2004 23:45 EDT) Pathologist [facility] Creatinine 0.6(L) 0.7 - 1.5 mg/dl [facility] 04/19/2004 23:4 5 EDT 04/19/2004 23:45 EDT us Default Emergency MD HISTORICAL LAB FOR SQ LOAD Final Result Performing Organization Address [facility] Co de Phone Number [facility] [address] [place] [address] * (ABNORMAL) HEMAGRAM AND DIFFERENTIAL (04/19/2004 23:45 EDT) Pathologist [facility] WBC 12.09 4.0 - 12.4 K/cmm [facility] [...] BLES Final Result [facility] [address] [place] [address] * (ABNORMAL) BUN (04/19/2004 23:45 EDT) BUN 6(L) 10 - 26 mg/dl [facility] 04/19/2004 23:4 5 EDT 04/19/2004 23:45 EDT us Default Emergency CHEMISTRY & BLOOD GAS ORDER ENDY Final Result [facility] [address] [place] [address] * BACTERIAL CULTURE, BLOOD (04/19/2004 5:15 EDT) Specimen Description Blood Right Arm [facility] Result No growth [facility] Report Status Final [id number] [facility] 04/19/2004 5:15 EDT 04/19/2004 5:18 EDT us Default Emergency MD MICROBIOLOGY - GENERAL ELLEN LAL Final Result Performing Organization Address City/[facility] Co de Phone Number [facility] [address] [place] [address] * GLUCOSE, SERUM (04/19/2004 5:15 EDT) Glucose, Serum 94 70 - 110 mg/dl [facility] 04/19/2004 5:15 EDT 04/19/2004 5:15 EDT us Default Emergency MD CHEMISTRY & BLOOD GAS ORDER ENDY Final Result Performing Organization Address [facility] de Phone Number [facility] [address] [place] [address] * (ABNORMAL) ELECTROLYTES (04/19/2004 5:15 EDT) Sodium [...] Performing Organization Address [facility] de Phone Number [facility] [address] [place] [address] * (ABNORMAL) LIVER FUNCTION TESTS (04/19/2004 5:15 [...] ORDER ENDY Final Result Performing Organization Address [facility] de Phone Number [facility] [address] [place] [address] * LIPASE (04/19/2004 5:15 EDT) Pathologist [facility] Lipase 51 0 - 250 U/L [facility] 04/19/2004 5:15 EDT 04/19/2004 5:15 EDT Default Emergency MD CHEMISTRY & BLOOD GAS ORDER ENDY Final Result Performing Organization Address [facility] de Phone Number [facility] [address] [place] [address] * CREATININE (04/19/2004 5:15 EDT) Pathologist [facility] Creatinine 0.7 0.7 - 1.5 mg/dl [facility] 04/19/2004 5:15 EDT 04/19/2004 5:15 EDT Default Emergency HISTORICAL LAB FOR SQ LOAD Final Result Performing Organization Address [facility] de Phone Number [facility] [address] [place] [address] * (ABNORMAL) HEMAGRAM AND DIFFERENTIAL (04/19/2004 5:15 EDT) Pathologist [facility] WBC 11.24 4.0 - 12.4 K/cmm [facility] [...] ORDERA BLES Final Result Performing Organization Address City/[facility]/ZIP Co de Phone Number [facility] [address] [place] [address] * (ABNORMAL) BUN (04/19/2004 5:15 EDT) BUN 8(L) 10 - 26 mg/dl [facility] 04/19/2004 5:15 EDT 04/19/2004 5:15 EDT us Default Emergency CHEMISTRY & BLOOD GAS ORDER ENDY Final Result [facility] [address] [place] [address] * BACTERIAL CULTURE, BLOOD (04/19/2004 5:10 EDT) Specimen Description Blood Left Arm [facility] Result ESCHERICHIA COLI Isolated in one bottle. First detected in less than 24 hours. [facility] Report Status Final [id number] [facility] 04/19/2004 5:10 EDT 04/19/2004 [...] LAL Final Result [facility] [address] [place] [address] * BACTERIAL CULTURE, URINE (04/19/2004 5:05 EDT) Specimen Description Urine [facility] Result Greater than 100,000 CFU/ml ESCHERICHIA COLI [facility] Report Status Final [id number] [facility] 04/19/2004 5:05 EDT 04/19/2004 [...] LAL Final Result [facility] [address] [place] [address] documented in this encounter Visit Diagnoses Not on filedocumented in this encounter
--- OUTSIDE RECORDS SUMMARY | 2024-10-18 21:54 | XMS_ITS | Encounter Summary ---
Author Organization [facility] Address [address] [place] [address] Care Team Providers Care Observer Electrical Prospecting Name Role Phone Unavailable Primary Care Provider Unavailabl e Encounter Details Date Type Department Care Team (Late st Contact Info) Description 07/14/2004 12:03 EDT Hospital Encounter [facility] - Maple conversion [address] [place] [address] Leida Cerda PA-C [address] [place] [address] [address] [place], [place] [address] Social History Tobacco Use Types Packs/Day Years Used Date Smoking Tobacco: Never Smokeless Tobacco: Never Alcohol Use Standard Drinks/Week Comments No 0 (1 standard drink = 0.6 oz pur e alcohol) [facility] Utilities Answer Date Recorded In [...]
--- OUTSIDE RECORDS SUMMARY | 2024-10-18 21:54 | XMS_ITS | Encounter Summary ---
Author Organization [facility] Address [address] [place] [address] Care Team Providers Care Food Service Team Member Name Role Phone Shannan Vieyra MD Primary Care Provider Unavail able Encounter Details Date Type Department Care Team (Late st Contact Info) Description 06/29/2004 Results Only [facility] Family Medicine - [place] [address] [place], [place] [phone] Leida Cerda PA-C [address] Formerly Named [facility] [address] [place], [place] [address] Social History Tobacco Use Types Packs/Day Years [...] ORDERABLES Final Result [facility] [address] [place] [address] * (ABNORMAL) THYROTROPIN RECEPTOR ANTIBODY (06/29/2004 16:08 EDT) Thyrotropin Receptor Ab 16Unit: % Index(Note) -- EXPECTED VALUES -- ? (Ref Range) <10 (Negative) ? 10-14 (Indeterminate) ? > or = 15 (Positive) ? TEST PERFORMED OR REFERRED BY [facility] ? [address] ? [place] [address] ? Insulation Worker: ? Pawan Saunders M.D. ?(H) [facility] 06/29/2004 16:0 8 EDT 06/29/2004 19:10 EDT us Leida Che Cerda PA-C CHEMISTRY & BLOOD G ORDERABLES Final Result [facility] [address] [place] [address] * (ABNORMAL) T3, TOTAL (06/29/2004 16:08 EDT) T3, Total 254(H) 60 - 181 ng/dl [facility] 06/29/2004 16:0 8 EDT 06/29/2004 19:10 EDT Leida Cerda PA-C CHEMISTRY & BLOOD G ORDERABLES Final Result Performing Organization Address [facility] Co de Phone Number [facility] [address] [place] [address] * (ABNORMAL) T4 FREE (06/29/2004 16:08 EDT) Free T4 2.1(H) 0.8 - 1.8 ng/dl [facility] 06/29/2004 16:0 8 EDT 06/29/2004 19:10 EDT Leida Cerda PA-C CHEMISTRY & BLOOD G ORDERABLES Final Result Performing Organization Address [facility] Co de Phone Number [facility] [address] [place] [address] * (ABNORMAL) HEMAGRAM AND DIFFERENTIAL (06/29/2004 16:08 [...] Neutrophils 2.00(L) 2.20 - 8.85 K/cmm [facility] ABS Lymphs 2.32 1.09 - 3.30 K/cmm [facility] ABS Monocytes 0.28 0.1 - 0.8 K/cmm [facility] ABS Eosinophils 0.18 0.03 - 0.61 K/cmm [facility] ABS Basophils 0.01 0.01 - 0.11 K/cmm [facility] Type of Diff: Automated [facility] 06/29/2004 16:0 8 EDT 06/29/2004 19:10 EDT Leida Creda PA-C PACKAGES & DNA PROB E ORDERABLES Final Result Performing Organization Address City/[facility] Co de Phone Number [facility] [address] [place] [address] * AST (06/29/2004 16:08 EDT) AST 21 15 - 46 U/L [facility] 06/29/2004 16:0 8 EDT 06/29/2004 19:10 EDT Leida Cerda PA-C CHEMISTRY & BLOOD G ORDERABLES Final Result Performing Organization Address City/[facility]/ZIP Co de Phone Number [facility] [address] [place] [address] * ALT (06/29/2004 16:08 EDT) ALT 41 9 - 52 U/L [facility] 06/29/2004 16:0 8 EDT 06/29/2004 19:10 EDT us Leida Cerda PA-C CHEMISTRY & BLOOD G ORDERABLES Final Result Performing Organization Address City/State/[facility] Co de Phone Number [facility] [address] [place] [address] documented in this encounter Visit Diagnoses Not on filedocumented in this encounter Care Teams Food Service Team Member Relationship Specialty Start Date End Date Shannan Vieyra MD PCP - General 04/08/09 03/15/19 documented as of this encounter
--- OUTSIDE RECORDS SUMMARY | 2024-10-18 21:54 | XMS_ITS | Encounter Summary ---
Author Organization [facility] Address [address] [place] [address] Care Team Providers Care Head Start Teacher Name Role Phone Shannan Vieyra MD Primary Care Provider Unavail able Encounter Details Date Type Department Care Team (Late st Contact Info) Description 06/10/2004 Office Visit [facility] - Maple conversion [address] [place] [address] Miguel Negron MD [address] [place] [address], [address] [place] [phone] Social History Tobacco Use Types Packs/Day Years [...] Disposition: Admitted to [facility]. Condition: stable. CLINICAL IMPRESSION Fever. Headache. [...] mL absorbed). IV fluid started- #2 bag [id number] mL. Rate - 250 mL / hr. --01:16 Irina Hernández R.N. OUTPUT: x1 pt states large amt urine --01:16 Irina Hernández R.N. INTAKE: 1000 mL IV --01:16 Irina Hernández R.N. DISPOSITION / DISCHARGE Admitted to medicine. Transported via stretcher by [employer] with IV. Report was given (B4 staff). --01:20 Irina Hernández R.N. Admitted ([id number]). Transported via stretcher. --01:36 Ector Ferguson R.N. E.M.TAnay Ness.M.TEctor Lozano.M.T. Ector Valderrama R.N. Locked/Released at 06/11/2004 4:29 by Nara Malin R.N. documented in this encounter Plan of Treatment Not on file documented as of this encounter Visit Diagnoses Not on filedocumented in this encounter Care Teams Head Start Teacher Relationship Specialty Start Date End Date Shannan Vieyra MD PCP - General 04/08/09 03/15/19 documented as of this encounter
--- OUTSIDE RECORDS SUMMARY | 2024-10-18 21:54 | XMS_ITS | Encounter Summary ---
Author Organization [facility] Address [address] [place] [address] Care Team Providers Care Linux Support Engineer Name Role Phone Isela Winter MD Primary Care Provider Unavail able Encounter Details Date Type Department Care Team (Late st Contact Info) Description 06/05/2004 Office Visit [facility] - Maple conversion [address] [place] [address] Jennifer Rhodes PA Social History Tobacco Use [...] substitute OK. Follow-up: ISELA WINTER MD, , [facility], [address], [place], [address] Follow up Tuesday. Jennifer Gardiner (Electronically signed [...] had severe nausea. No sinus pain. 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 Warnings reviewed. Reviewed medication. Treatments reviewed. Reviewed referrals. Activity restrictions were reviewed. Patient verbalized understanding. The patient was discharged home and accompanied by television actor. The patient left the Emergency Department ambulatory [...] label instructions. Follow-up: ISELA WINTER MD, , [facility], [address], [place], [address] Follow up Tuesday if not better. Jennifer Gardiner (Electronically signed Jennifer Gardiner 06/06/2004 6:14) Physician's Clinical Report Emergency Department ??? Nursing Summary Registration Date/Time 06/05/2004 23:56 TRIAGE Initial Assessment Acuity: LEVEL 4. BP: 144 / 90 HR: 137 RR: 36 Temp: 38.4 tympanic Alert. --00:02 Cassy Kyle R.N. Medications Atenolol. Flonase Nasal [place]. (Neomycin ear drops started today). (Tapazol). --00:02 Cassy Kyle R.N. Allergies PENICILLIN- uncertain as to what symptoms developed. SULFA DRUGS- symptoms consisted of rash and shortness of breath. --00:02 Cassy Kyle R.N. History Chief Complaint: LEFT EAR PAIN. (about 5 days ago). Pain level now: 10/10. Reports fever and muscle aches. The patient has had nausea. 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 Recently seen in the office; [...] verbalized understanding. The patient was accompanied by television actor. The patient left the Emergency Department ambulatory. --03:50 Ector Ferguson R.N., R.N. Kellie Klus R.N. Fanda Plessl, E.M.T. Joan Carson R.N. at 06/06/2004 3:59 by Nara Malni R.N. documented in this encounter Plan of Treatment Not on file documented as of this encounter Visit Diagnoses Not on filedocumented in this encounter Care Teams Linux Support Engineer Relationship Specialty Start Date End Date Isela Winter MD PCP - General 04/08/09 03/15/19 documented as of this encounter
--- OUTSIDE RECORDS SUMMARY | 2024-10-18 21:54 | XMS_ITS | Encounter Summary ---
Author Organization [facility] Address [address] [place] [address] Care Team Providers Care Wood Polisher Name Role Phone Shannan Vieyra MD Primary Care Provider Leida Robledo PA-C Primary Care Provi melvin Comfort Zelaya NP Primary Care Provider [phone] Encounter Details Date Type Department Care Team (Late st Contact Info) Description 06/10/2004 Before PRISM Converted Visit (Maple) [facility] - Maple conversion [address] [place] [address] Paradise Padilla MD [address] [place] [address] Social History Tobacco Use Types Packs/Day Years [...] growth [facility] Report Status Final [id number] [facility] 06/10/2004 20:3 0 EDT 06/10/2004 20:34 EDT us Default Emergency MICROBIOLOGY - GENERAL ELLEN LAL Final Result [facility] [address] [place] [address] * HOLD (06/10/2004 20:30 EDT) Hold Fluid [facility] 06/10/2004 20:3 0 EDT 06/10/2004 20:31 EDT us Default Emergency MD CHEMISTRY & BLOOD GAS ORDER ENDY Final Result Performing Organization Address [facility] Co de Phone Number [facility] [address] [place] [address] * (ABNORMAL) FLUID DIFFERENTIAL (06/10/2004 20:30 EDT) Lymphocyte, CSF 72 40 - 80 % [facility] Perkins/Macro, CSF 5(L) 15 - 45 % [facility] Eosinophil, CSF 23 % [facility] 06/10/2004 20:3 0 EDT 06/10/2004 20:31 EDT us Default Emergency GEN LAB UNIT COLLECT ORDERA BLES Final Result Performing Organization Address [facility] de Phone Number [facility] [address] [place] [address] * (ABNORMAL) TOTAL PROTEIN, CSF (06/10/2004 20:30 EDT) Total Protein, CSF 108(H) 15 - 60 mg/dl [facility] 06/10/2004 20:3 0 EDT 06/10/2004 20:31 EDT us Default Emergency MD GEN LAB UNIT COLLECT ORDERA BLES Final Result Performing Organization Address [facility] de Phone Number [facility] [address] [place] [address] * GLUCOSE CSF (06/10/2004 20:30 EDT) Glucose, CSF 38 mg/dl [facility] Comment: Ref Range=60-80% of plasma glucose result 06/10/2004 20:3 0 EDT 06/10/2004 20:31 EDT us Default Emergency GEN LAB UNIT COLLECT ORDERA BLES Final Result Performing Organization Address [facility] Co de Phone Number [facility] [address] [place] [address] * (ABNORMAL) CELL COUNT,CSF (06/10/2004 20:30 EDT) RBC, CSF 2 /cmm [facility] Nucleated Cells, CSF 256(H) 0 - 5 /cmm [facility] Total Vol. 4.0 ml [facility] Tube Cntd. 4 [facility] Tube Vol. 1.0 ml [facility] CSF Comment Clear and Colorless [facility] 06/10/2004 20:3 0 EDT 06/10/2004 20:31 EDT us Default Emergency GEN LAB UNIT COLLECT ORDERA BLES Final Result Performing Organization Address [facility] Co de Phone Number [facility] [address] [place] [address] * BACTERIAL CULTURE, BLOOD (06/10/2004 19:00 EDT) Pathologist [facility] Specimen Description Blood Left Forearm Pediatric bottle received [facility] Result Volume of blood collected may not be adequate for detection of bacteremia/se pticemia. No growth [facility] Report Status Final [id number] [facility] 06/10/2004 19:0 0 EDT 06/10/2004 19:13 EDT us Default Emergency MICROBIOLOGY - GENERAL ORDThi LAL Final Result Performing Organization Address [facility] Co de Phone Number [facility] [address] [place] [address] * GLUCOSE, SERUM (06/10/2004 18:20 EDT) Glucose, Serum 99 70 - 110 mg/dl [facility] 06/10/2004 18:2 0 EDT 06/10/2004 18:50 EDT us Default Emergency CHEMISTRY & BLOOD GAS ORDER ENDY Final Result Performing Organization Address [facility] Co de Phone Number [facility] [address] [place] [address] * ELECTROLYTES (06/10/2004 18:20 EDT) Sodium 140 136 - 145 mEq/L [facility] Potassium 3.9 3.5 - 5.0 mEq/L [facility] Chloride 104 96 - 110 mEq/L [facility] CO2 25 24 - 32 mEq/L [facility] 06/10/2004 18:2 0 EDT 06/10/2004 18:50 EDT us Default Emergency MD CHEMISTRY & BLOOD GAS ORDER ENDY Final Result Performing Organization Address [facility] de Phone Number [facility] [address] [place] [address] * HOLD (06/10/2004 18:20 EDT) Hold Sample for coagulation will be discarded after 4 hours [facility] 06/10/2004 18:2 0 EDT 06/10/2004 18:50 EDT us Default Emergency MD CHEMISTRY & BLOOD GAS ORDER ENDY Final Result Performing Organization Address [facility] de Phone Number [facility] [address] [place] [address] * CREATININE (06/10/2004 18:20 EDT) Creatinine 0.8 0.7 - 1.5 mg/dl [facility] 06/10/2004 18:2 0 EDT 06/10/2004 18:50 EDT us Default Emergency MD HISTORICAL LAB FOR SQ LOAD Final Result Performing Organization Address [facility] de Phone Number [facility] [address] [place] [address] * (ABNORMAL) HEMAGRAM AND DIFFERENTIAL (06/10/2004 18:20 [...] K/cmm [facility] RBC Morphology Normal [facility] Type of Diff: Manual [facility] 06/10/2004 18:2 0 EDT 06/10/2004 18:50 EDT us Default Emergency PACKAGES & DNA PROBE ORDERA BLES Final Result [facility] [address] [place] [address] * BUN (06/10/2004 18:20 EDT) BUN 11 10 - 26 mg/dl [facility] 06/10/2004 18:2 0 EDT 06/10/2004 18:50 EDT us Default Emergency CHEMISTRY & BLOOD GAS ORDER ENDY Final Result [facility] [address] [place] [address] documented in this encounter Visit Diagnoses Not on filedocumented in this encounter Care Teams Wood Polisher Relationship Specialty Start Date End Date Shannan Vieyra MD PCP - General 04/08/09 03/15/19 Leida Cerda PA-C PCP - General 03/16/19 03/07/22 Comfort Zelaya NP [address] [place] [phone] PCP - General Family Medicine - Primary Care 03/08/22 documented as of this encounter
--- OUTSIDE RECORDS SUMMARY | 2024-10-18 21:54 | XMS_ITS | Encounter Summary ---
Author Organization [facility] Address [address] [place] [address] Care Team Providers Care Licensed Optician Name Role Phone Shannan Vieyra MD Primary Care Provider Unavail able Encounter Details Date Type Department Care Team (Late st Contact Info) Description 06/06/2004 Results Only [facility] - Maple conversion [address] [place] [address] Emergency, MD Keli Social History Tobacco Use [...] MIRABILIS [facility] Report Status Final [id number] [facility] 06/06/2004 22:4 5 EDT [...] LAL Final Result [facility] [address] [place] [address] * (ABNORMAL) UA WITH MICROSCOPIC (06/06/2004 22:45 EDT) Color, UA Yellow [facility] Clarity, UA Clear [facility] Glucose, UA Norm NORM [facility] Bilirubin, UA Neg NEG [facility] Ketones, UA Large(A) NEG [facility] Specific [place], Urine 1.020 1.005 - 1.02 [facility] Blood, UA Trace(A) NEG [facility] pH, UA 6.5 5.0 - 9.0 [facility] Protein, UA Trace(A) NEG [facility] Urobilinogen, UA 1.0(A) NORM mg/dL [facility] Nitrite, UA Neg NEG [facility] Leuk Esterase Mod(A) NEG [facility] [...] URINALYSIS ORDERABLES Final Result Performing Organization Address [facility] de Phone Number [facility] [address] [place] [address] * BACTERIAL CULTURE/SMEAR, FLUID (06/06/2004 22:22 EDT) Specimen Description Spinal Fluid [facility] Gram Smear Result Polys present Mononuclear cells present No bacteria seen [facility] Result No growth [facility] Report Status Final [id number] [facility] 06/06/2004 22:2 2 EDT 06/06/2004 22:32 EDT Default Emergency MICROBIOLOGY - GENERAL ORDE RABLES Final Result Performing Organization Address [facility] de Phone Number [facility] [address] [place] [address] * (ABNORMAL) FLUID DIFFERENTIAL (06/06/2004 22:10 EDT) Pathologist [facility] Lymphocyte, CSF 92(H) 40 - 80 % [facility] Gage/Macro, CSF 4(L) 15 - 45 % [facility] Eosinophil, CSF 3 % [facility] Basophil, CSF 1 % [facility] 06/06/2004 22:1 0 EDT 06/06/2004 22:11 EDT Default Emergency GEN LAB UNIT COLLECT ORDERA BLES Final Result Performing Organization Address [facility] de Phone Number [facility] [address] [place] [address] * (ABNORMAL) TOTAL PROTEIN, CSF (06/06/2004 22:10 EDT) Total Protein, CSF 91(H) 15 - 60 mg/dl [facility] 06/06/2004 22:1 0 EDT 06/06/2004 22:11 EDT us Default Emergency GEN LAB UNIT COLLECT ORDERA BLES Final Result Performing Organization Address [facility] de Phone Number [facility] [address] [place] [address] * GLUCOSE CSF (06/06/2004 22:10 EDT) Glucose, CSF 40 mg/dl [facility] Comment: Ref Range=60-80% of plasma glucose result 06/06/2004 22:1 0 EDT 06/06/2004 22:11 EDT us Default Emergency GEN LAB UNIT COLLECT ORDERA BLES Final Result Performing Organization Address [facility] de Phone Number [facility] [address] [place] [address] * (ABNORMAL) CELL COUNT,CSF (06/06/2004 22:10 EDT) RBC, CSF 3 /cmm [facility] Nucleated Cells, CSF 528(H) 0 - 5 /cmm [facility] Total Vol. 4.0 ml [facility] Tube Cntd. 4 [facility] Tube Vol. 1.0 ml [facility] CSF Comment Clear and Colorless [facility] 06/06/2004 22:1 0 EDT 06/06/2004 22:11 EDT us Default Emergency GEN LAB UNIT COLLECT ORDERA BLES Final Result Performing Organization Address [facility] de Phone Number [facility] [address] [place] [address] * SED. RATE:WESTERGREN (06/06/2004 20:27 EDT) Sed. Rate Westergren 5 0 - 20 mm/hr [facility] 06/06/2004 20:2 7 EDT 06/06/2004 20:38 EDT us Default Emergency MD HEMATOLOGY & PF4 ORDERABLES Final Result Performing Organization Address [facility] Co de Phone Number [facility] [address] [place] [address] * GLUCOSE, SERUM (06/06/2004 20:27 EDT) Pathologist [facility] Glucose, Serum 90 70 - 110 mg/dl [facility] 06/06/2004 20:2 7 EDT 06/06/2004 20:38 EDT Default Emergency MD CHEMISTRY & BLOOD GAS ORDER ENDY Final Result Performing Organization Address [facility] de Phone Number [facility] [address] [place] [address] * (ABNORMAL) ELECTROLYTES (06/06/2004 20:27 EDT) Pathologist [...] ENDY Final Result Performing Organization Address [facility] de Phone Number [facility] [address] [place] [address] * (ABNORMAL) LIVER FUNCTION TESTS (06/06/2004 20:27 [...] ENDY Final Result Performing Organization Address [facility] de Phone Number [facility] [address] [place] [address] * LIPASE (06/06/2004 20:27 EDT) Lipase 89 0 - 250 U/L [facility] 06/06/2004 20:2 7 EDT 06/06/2004 20:38 EDT us Default Emergency MD CHEMISTRY & BLOOD GAS ORDER ENDY Final Result Performing Organization Address [facility] de Phone Number [facility] [address] [place] [address] * C-REACTIVE PROTEIN (06/06/2004 20:27 EDT) C-Reactive Protein <0.7 <1.0 mg/dl [facility] 06/06/2004 20:2 7 EDT 06/06/2004 20:38 EDT us Default Emergency MD CHEMISTRY & BLOOD GAS ORDER ENDY Final Result Performing Organization Address [facility] de Phone Number [facility] [address] [place] [address] * CREATININE (06/06/2004 20:27 EDT) Creatinine 0.8 0.7 - 1.5 mg/dl [facility] 06/06/2004 20:2 7 EDT 06/06/2004 20:38 EDT us Default Emergency MD HISTORICAL LAB FOR SQ LOAD Final Result Performing Organization Address [facility] Co de Phone Number [facility] [address] [place] [address] * (ABNORMAL) HEMAGRAM AND DIFFERENTIAL (06/06/2004 20:27 [...] of Diff: Automated [facility] 06/06/2004 20:2 7 EDT 06/06/2004 20:38 EDT us Default Emergency PACKAGES & DNA PROBE ORDERA BLES Final Result [facility] [address] [place] [address] * BUN (06/06/2004 20:27 EDT) BUN 10 10 - 26 mg/dl [facility] 06/06/2004 20:2 7 EDT 06/06/2004 20:38 EDT us Default Emergency MD CHEMISTRY & BLOOD GAS ORDER ENDY Final Result Performing Organization Address City/State/[facility] Co de Phone Number [facility] [address] [place] [address] documented in this encounter Visit Diagnoses Not on filedocumented in this encounter Care Teams Licensed Optician Relationship Specialty Start Date End Date Shannan Vieyra MD PCP - General 04/08/09 03/15/19 documented as of this encounter
--- OUTSIDE RECORDS SUMMARY | 2024-10-18 21:54 | XMS_ITS | Encounter Summary ---
Author Organization [facility] Address [address] [place] [address] Care Team Providers Care Spinner Frame Name Role Phone Shannan Vieyra MD Primary Care Provider Unavail able Encounter Details Date Type Department Care Team (Late st Contact Info) Description 10/14/2004 Results Only [facility] - Maple conversion [address] [place] [address] Toño Hernadez MD [address] [place] [address] Social History Tobacco Use Types Packs/Day Years [...] electronically signed by: ? SHAYE LYNN MD [facility] ? Report Date: ??10/22/2004 14:30 End of Report [facility] 10/14/2004 10/16/2004 us Toño Hernadez MD PATHOLOGY ORDERABLES Nellie l Result [facility] [address] [place] [address] documented in this encounter Visit Diagnoses Not on filedocumented in this encounter Care Teams Spinner Frame Relationship Specialty Start Date End Date Shannan Vieyra MD PCP - General 04/08/09 03/15/19 documented as of this encounter
--- OUTSIDE RECORDS SUMMARY | 2024-10-18 21:54 | XMS_ITS | Encounter Summary ---
Author Organization [facility] Address [address] [place] [address] Care Team Providers Care Seating Upholsterer Name Role Phone Shannan Vieyra MD Primary Care Provider Unavail able Encounter Details Date Type Department Care Team (Late st Contact Info) Description 04/19/2004 Office Visit [facility] - Maple conversion [address] [place] [address] Christopher Zavala MD [address] [facility], [address] [place] [phone] Social History Tobacco Use Types Packs/Day Years [...] Old medical records reviewed. Disposition: Admitted to [facility]. CLINICAL IMPRESSION Pyelonephritis. Christopher Zavala MD (Electronically [...] on filedocumented in this encounter Care Teams Seating Upholsterer Relationship Specialty Start Date End Date Shannan Vieyra MD PCP - General 04/08/09 03/15/19 documented as of this encounter
--- OUTSIDE RECORDS SUMMARY | 2024-10-18 21:54 | XMS_ITS | Encounter Summary ---
Author Organization [facility] Address [address] [place] [address] Care Team Providers Care Hammer Driver Name Role Phone Shannan Vieyra MD Primary Care Provider Unavail able Encounter Details Date Type Department Care Team (Late st Contact Info) Description 06/10/2004 Before PRISM Converted Visit (Maple) [facility] - Maple conversion [address] [place] [address] Paradise Padilla MD [address] [place] [address] Social History Tobacco Use Types Packs/Day Years [...] on filedocumented in this encounter Care Teams Hammer Driver Relationship Specialty Start Date End Date Shannan Vieyra MD PCP - General 04/08/09 03/15/19 documented as of this encounter
--- OUTSIDE RECORDS SUMMARY | 2024-10-18 21:55 | XMS_ITS | Encounter Summary ---
Author Organization [facility] Address [address] [place] [address] Care Team Providers Care Line Assigner Name Role Phone Unavailable Primary Care Provider Unavailabl e Encounter Details Date Type Department Care Team (Latest Contact Info) Description 02/21/2003 13:09 EDT Hospital Encounter [facility] - Other [address] [place] [address] Angelo Clemons MD [address] [place] [address] [place] [phone] Discharge Disposition: Auto Discharge Social History [...] SQ LOAD Final Result Performing Organization Address [facility] Co de Phone Number [facility] [address] [place] [address] * AST (02/21/2003 13:09 EDT) AST 18 8 - 50 U/L [facility] 02/21/2003 13:0 9 EDT 02/21/2003 13:11 EDT us Angelo Clemons MD CHEMISTRY & BLOOD GAS ORDERABLES Final Result Performing Organization Address [facility] de Phone Number [facility] [address] [place] [address] * ALT (02/21/2003 13:09 EDT) ALT 31 15 - 75 U/L [facility] 02/21/2003 13:0 9 EDT 02/21/2003 13:11 EDT Angelo Clemons MD CHEMISTRY & BLOOD GAS ORDERABLES Final Result Performing Organization Address [facility] de Phone Number [facility] [address] [place] [address] documented in this encounter Visit Diagnoses Not on filedocumented in this encounter
--- OUTSIDE RECORDS SUMMARY | 2024-10-18 21:55 | XMS_ITS | Encounter Summary ---
Author Organization [facility] Address [address] [place] [address] Care Team Providers Care Forging Engineer Name Role Phone Shannan Vieyra MD Primary Care Provider Unavail able Encounter Details Date Type Department Care Team (Late st Contact Info) Description 04/02/2003 Results Only [address] [address] Shannan Vieyra MD Social History Tobacco Use [...] Result No Neisseria gonorrhoeae DNA detected by telephone collector mediated amplification. [facility] Report Status Final [id number] [facility] Specimen Description Endocervix [facility] 04/02/2003 11:3 3 EDT 04/02/2003 17:20 EDT Shannan Vieyra MD MICROBIOLOGY - GENERAL ORDERAB LES Final Result Performing Organization Address City/[facility]/ZIP Co de Phone Number [facility] [address] [place] [address] * CHLAMYDIA TRACHOMATIS AMPLIFIED PROBE (04/02/2003 11:33 EDT) Specimen Description [facility]oc[facility] Result No Chlamydia trachomatis DNA detected by telephone collector mediated amplification. [facility] Report Status Final [id number] [facility] 04/02/2003 11:3 3 EDT 04/02/2003 17:21 EDT us Shannan Vieyra MD MICROBIOLOGY - GENERAL ORDERAB LES Final Result Performing Organization Address [facility] Co de Phone Number [facility] [address] [place] [address] documented in this encounter Visit Diagnoses Not on filedocumented in this encounter Care Teams Forging Engineer Relationship Specialty Start Date End Date Shannan Vieyra MD PCP - General 04/08/09 03/15/19 documented as of this encounter
--- OUTSIDE RECORDS SUMMARY | 2024-10-18 21:55 | XMS_ITS | Encounter Summary ---
Author Organization [facility] Address [address] [place] [address] Care Team Providers Care Priming Mixture Carrier Name Role Phone Unavailable Primary Care Provider Unavailabl e Encounter Details Date Type Department Care Team (Latest Contact Info) Description 04/15/2003 14:24 EDT Hospital Encounter [facility] - Maple conversion [address] [place] [address] Pete Richey MD Discharge Disposition: Auto Discharge [...] ORDERABL ES Final Result Performing Organization Address [facility]/ZIP Co de Phone Number [facility] [address] [place] [address] * (ABNORMAL) T3, TOTAL (04/15/2003 11:55 EDT) T3, Total 302(H) 60 - 181 ng/dl [facility] 04/15/2003 11:5 5 EDT 04/15/2003 17:34 EDT us Germain Mason MD CHEMISTRY & BLOOD GAS ORDERABL ES Final Result Performing Organization Address [facility] de Phone Number [facility] [address] [place] [address] * (ABNORMAL) T4 FREE (04/15/2003 11:55 EDT) Free T4 1.9(H) 0.8 - 1.8 ng/dl [facility] 04/15/2003 11:5 5 EDT 04/15/2003 17:34 EDT us Germain Mason MD CHEMISTRY & BLOOD GAS ORDERABL ES Final Result Performing Organization Address [facility] Co de Phone Number [facility] [address] [place] [address] documented in this encounter Visit Diagnoses Not on filedocumented in this encounter
--- OUTSIDE RECORDS SUMMARY | 2024-10-18 21:55 | XMS_ITS | Encounter Summary ---
Author Organization [facility] Address [address] [place] [address] Care Team Providers Care Senior Financial Accountant Name Role Phone Unavailable Primary Care Provider Unavailabl e Encounter Details Date Type Department Care Team (Latest Contact Info) Description 02/18/2003 13:36 EDT Hospital Encounter [address] [address] Shannan Vieyra MD Discharge Disposition: Auto Discharge [...]
--- OUTSIDE RECORDS SUMMARY | 2024-10-18 21:55 | XMS_ITS | Encounter Summary ---
Author Organization [facility] Address [address] [place] [address] Care Team Providers Care Assembler 1St Shift Name Role Phone Unavailable Primary Care Provider Unavailabl e Encounter Details Date Type Department Care Team (Latest Contact Info) Description 03/27/2001 12:28 EDT Hospital Encounter [facility] Emergency Department - [facility] [address] [place], [place] [address] Emergency, Default, MD Discharge Disposition: Home or [...] ENDY Final Result [facility] [address] [place] [address] * (ABNORMAL) HEMAGRAM & DIFF (03/27/2001 12:39 [...] LOAD Final Result [facility] [address] [place] [address] * SURGICAL PATHOLOGY (03/27/2001 0:00 EDT) Pathology Report: SURGICAL PATHOLOGY REPORT Reports generated via electronic interface contain original data; however they are lacking the format of the original report. Caution should be taken when reading/interpreti ng unformatted reports. Name: ? DORIS KERR ? Accession #: ? [id number] ? : ? 1980 (Age: 21) ??F [...] 2.0 cm. ??No parts are grossly identified. ??[employer] Operator sections are submitted as (A1) and [...] ORDERABLES Final Result [facility] [address] [place] [address] documented in this encounter Visit Diagnoses Not on filedocumented in this encounter
--- OUTSIDE RECORDS SUMMARY | 2024-10-18 21:55 | XMS_ITS | Encounter Summary ---
Author Organization [facility] Address [address] [place] [address] Care Team Providers Care Ceiling Installer Name Role Phone Unavailable Primary Care Provider Unavailabl e Encounter Details Date Type Department Care Team (Latest Contact Info) Description 05/06/2003 15:40 EDT Hospital Encounter [facility] Emergency Department - [facility] [address] [place] [address] Emergency, Default, MD Discharge Disposition: Home or [...]
--- OUTSIDE RECORDS SUMMARY | 2024-10-18 21:55 | XMS_ITS | Encounter Summary ---
Author Organization [facility] Address [address] [place] [address] Care Team Providers Care Blow Pit Helper Name Role Phone Unavailable Primary Care Provider Unavailabl e Encounter Details Date Type Department Care Team (Late st Contact Info) Description 11/01/2000 12:39 EST Hospital Encounter [facility] - Other [address] [place] [phone] Audrey Rausch MD [address] [place] [address], [facility] [address] [place] [phone] Unknown, Provider, Social History Tobacco Use Types Packs/Day Years Used Date Smoking Tobacco: Never Smokeless Tobacco: Never Alcohol Use Standard Drinks/Week Comments No 0 (1 standard drink = 0.6 oz pur e alcohol) [facility] Utilities Answer Date Recorded In the past 12 months has [employer], gas, oil, or water company threatened to [...] ? DORIS KERR ? Accession #: ? [id number] ? : ? 1980 (Age: 20) ??F [...] PATHOLOGY ORDERABLES Final Result Performing Organization Address City/State/[facility] Co de Phone Number [facility] [address] [place] [address] documented in this encounter Visit Diagnoses Not on filedocumented in this encounter
--- OUTSIDE RECORDS SUMMARY | 2024-10-18 21:55 | XMS_ITS | Encounter Summary ---
Author Organization [facility] Address [address] [place] [address] Care Team Providers Care Hr Operations Advisor Name Role Phone Unavailable Primary Care Provider Unavailabl e Encounter Details Date Type Department Care Team (Late st Contact Info) Description 04/18/2003 19:22 EDT Hospital Encounter [facility] [address] [place] [address] Pete Richey MD Social History Tobacco Use Types Packs/Day Years Used Date Smoking Tobacco: Never Smokeless Tobacco: Never Alcohol Use Standard Drinks/Week Comments No 0 (1 standard drink = 0.6 oz pur e alcohol) [facility] Utilities Answer Date Recorded In the past 12 months has [employer] electric, gas, oil, or water company threatened [...]
--- OUTSIDE RECORDS SUMMARY | 2024-10-18 21:55 | XMS_ITS | Encounter Summary ---
Author Organization [facility] Address [address] [place] [address] Care Team Providers Care Harpooner Name Role Phone Unavailable Primary Care Provider Unavailabl e Encounter Details Date Type Department Care Team (Late st Contact Info) Description 09/22/2000 10:27 EST Hospital Encounter [facility] - Other [address] [place] [address] Audrey Rausch MD [address] [place] [address], [facility] [address] [place] [phone] Unknown, Provider, Social History Tobacco Use Types Packs/Day Years Used Date Smoking Tobacco: Never Smokeless Tobacco: Never Alcohol Use Standard Drinks/Week Comments No 0 (1 standard drink = 0.6 oz pur e alcohol) [facility] Utilities Answer Date Recorded In the past 12 months has [facility] [employer], gas, oil, or water company threatened to [...] ? DORIS KERR ? Accession #: ? [id number] : ? 1980 (Age: 20) ??F ?Collect [...] electronically signed by: ? SHAYE LYNN MD [facility] ? Report Date: ??10/07/2000 17:22 End of Report [facility] 09/22/2000 09/23/2000 us Audrey Rausch MD PATHOLOGY ORDERABLES Final Result [facility] [address] [place] [address] documented in this encounter Visit Diagnoses Not on filedocumented in this encounter
--- OUTSIDE RECORDS SUMMARY | 2024-10-18 21:55 | XMS_ITS | Encounter Summary ---
Author Organization [facility] Address [address] [place] [address] Care Team Providers Care Manganese Heater Name Role Phone Unavailable Primary Care Provider Unavailabl e Encounter Details Date Type Department Care Team (Late st Contact Info) Description 04/06/2003 15:13 EDT Hospital Encounter [address] [address] Anahy Vazquez MD [address] [place] [address] Social History Tobacco Use Types Packs/Day Years [...] BLES Final Result [facility] [address] [place] [address] documented in this encounter Visit Diagnoses Not on filedocumented in this encounter
--- OUTSIDE RECORDS SUMMARY | 2024-10-18 21:55 | XMS_ITS | Encounter Summary ---
Author Organization [facility] Address [address] [place] [address] Care Team Providers Care Wire Straightening Machine Operator Name Role Phone Unavailable Primary Care Provider Unavailabl e Encounter Details Date Type Department Care Team (Late st Contact Info) Description 03/24/2004 14:16 EDT Hospital Encounter [facility] - Other [address] [place] [address] Leida Cerda PA-C [address] [place] [address] Social History Tobacco Use Types Packs/Day Years Used Date Smoking Tobacco: Never Smokeless Tobacco: Never Alcohol Use Standard Drinks/Week Comments No 0 (1 standard drink = 0.6 oz pur e alcohol) [facility] Utilities Answer Date Recorded In the past 12 months has [employer] electric, gas, oil, or water company threatened [...] ? DORIS KERR ? Accession #: ? [id number] : ? 1980 (Age: 24) ??F ?Collect [...] Final Result [facility] [address] [place] [address] documented in this encounter Visit Diagnoses Not on filedocumented in this encounter
--- OUTSIDE RECORDS SUMMARY | 2024-10-18 21:55 | XMS_ITS | Encounter Summary ---
Author Organization [facility] Address [address] [place] [address] Care Team Providers Care Head Of Acquisitions Name Role Phone Unavailable Primary Care Provider Unavailabl e Encounter Details Date Type Department Care Team (Latest Contact Info) Description 06/05/2003 14:58 EDT Hospital Encounter [facility] - Maple conversion [address] [place] [address] Germain Mason MD [address] [place] [phone] Discharge Disposition: Auto Discharge Social History Tobacco [...] ORDERABL ES Final Result Performing Organization Address [facility] de Phone Number [facility] [address] [place] [address] * (ABNORMAL) T3, TOTAL (06/05/2003 14:55 EDT) T3, Total 284(H) 60 - 181 ng/dl [facility] 06/05/2003 14:5 5 EDT 06/05/2003 14:57 EDT us Germain Mason MD CHEMISTRY & BLOOD GAS ORDERABL ES Final Result Performing Organization Address [facility] de Phone Number [facility] [address] [place] [address] * (ABNORMAL) T4 FREE (06/05/2003 14:55 EDT) Free T4 1.9(H) 0.8 - 1.8 ng/dl [facility] 06/05/2003 14:5 5 EDT 06/05/2003 14:57 EDT us Germain Mason MD CHEMISTRY & BLOOD GAS ORDERABL ES Final Result Performing Organization Address [facility] de Phone Number [facility] [address] [place] [address] documented in this encounter Visit Diagnoses Not on filedocumented in this encounter
--- OUTSIDE RECORDS SUMMARY | 2024-10-18 21:55 | XMS_ITS | Encounter Summary ---
Author Organization [facility] Address [address] [place] [address] Care Team Providers Care Lift Operator Name Role Phone Unavailable Primary Care Provider Unavailabl e Encounter Details Date Type Department Care Team (Late st Contact Info) Description 03/15/2001 16:52 EDT Hospital Encounter [address] [address] Denice Martinez MD [address] [place] [address], [address] [place] [phone] Discharge Disposition: Auto Discharge Social History Tobacco [...] growth [facility] Report Status Final [id number] [facility] 03/15/2001 16:5 8 EDT 03/15/2001 17:09 EDT Denice Martinez MD MICROBIOLOGY - GENERAL ORDER ENDY Final Result Performing Organization Address [facility] de Phone Number [facility] [address] [place] [address] * PROGESTERONE (03/15/2001 16:58 EDT) Progesterone 6.1 [...] ORDERA BLES Final Result Performing Organization Address [facility] de Phone Number [facility] [address] [place] [address] * HCG (03/15/2001 16:58 EDT) HCG 8849 mIU/ml [facility] Comment: <4 = Negative 4-10 = Borderline, recommend repeat. 03/15/2001 16:5 8 EDT 03/15/2001 17:09 EDT Denice Martinez MD CHEMISTRY & BLOOD GAS ORDERA BLES Final Result [facility] [address] [place] [address] * PROFILE (03/15/2001 16:58 EDT) ABO and [...] PROBE ORDERAB LES Final Result [facility] [address] [address] documented in this encounter Visit Diagnoses Not on filedocumented in this encounter
--- OUTSIDE RECORDS SUMMARY | 2024-10-18 21:55 | XMS_ITS | Encounter Summary ---
Author Organization [facility] Address [address] [place] [address] Care Team Providers Care Commercial Appraiser Name Role Phone Unavailable Primary Care Provider Unavailabl e Encounter Details Date Type Department Care Team (Latest Contact Info) Description 08/26/2000 17:12 EST Hospital Encounter [facility] Emergency Department - [address] [address] Emergency, Default, MD Discharge Disposition: Home or [...]
--- OUTSIDE RECORDS SUMMARY | 2024-10-18 21:55 | XMS_ITS | Encounter Summary ---
Author Organization [facility] Address [address] [place] [address] Care Team Providers Care Butcher Assistant Name Role Phone Unavailable Primary Care Provider Unavailabl e Encounter Details Date Type Department Care Team (Late st Contact Info) Description 04/16/2003 11:10 EDT Hospital Encounter [facility] [address] [place] [address] Pete Richey MD Social History Tobacco Use Types Packs/Day Years Used Date Smoking Tobacco: Never Smokeless Tobacco: Never Alcohol Use Standard Drinks/Week Comments No 0 (1 standard drink = 0.6 oz pur e alcohol) [facility] Utilities Answer Date Recorded In the past 12 months has [employer], gas, oil, or water company threatened [...]
--- OUTSIDE RECORDS SUMMARY | 2024-10-18 21:55 | XMS_ITS | Encounter Summary ---
Author Organization [facility] Address [address] [place] [address] Care Team Providers Care Surveyor Geodetic Name Role Phone Unavailable Primary Care Provider Unavailabl e Encounter Details Date Type Department Care Team (Late st Contact Info) Description 10/04/2000 15:03 [facility] Hospital Encounter [facility] - Other [address] [place] [address] Wyatt Sousa PA Unknown, Provider, Social History Tobacco Use Types Packs/Day Years Used Date Smoking Tobacco: Never Smokeless Tobacco: Never Alcohol Use Standard Drinks/Week Comments No 0 (1 standard drink = 0.6 oz pur e alcohol) [facility] Utilities Answer Date Recorded In the [...] F inal Result [facility] [address] [place] [address] * (ABNORMAL) BASIC METABOLIC PANEL (10/04/2000 13:00 [...] ORDERA BLES Final Result Performing Organization Address [facility] Co de Phone Number [facility] [address] [place] [address] * BACTERIAL CULTURE, URINE (10/04/2000 13:00 EST) Specimen Description Urine [facility] Result Greater than 100,000 CFU/ml ESCHERICHIA COLI [facility] Report Status Final [id number] [facility] 10/04/2000 13:0 0 EST [...] ORDER ENDY Final Result Performing Organization Address City/[facility]/ZIP Co de Phone Number [facility] [address] [place] [address] documented in this encounter Visit Diagnoses Not on filedocumented in this encounter
--- OUTSIDE RECORDS SUMMARY | 2024-10-18 21:55 | XMS_ITS | Encounter Summary ---
Author Organization [facility] Address [address] [place] [address] Care Team Providers Care Edge Polisher Name Role Phone Shannan Vieyra MD Primary Care Provider Unavail able Encounter Details Date Type Department Care Team (Late st Contact Info) Description 02/12/2003 Results Only [facility] Family Medicine - [address] [phone] Leida Cerda PA-C [address] [facility] [address] [place], [place] [address] Social History Tobacco Use Types Packs/Day Years [...] G ORDERABLES Final Result Performing Organization Address [facility] de Phone Number [facility] [address] [place] [address] * (ABNORMAL) FREE T4 (02/12/2003 11:37 EDT) [facility] Free T4 3.1(H) 0.8 - 1.8 ng/dl [facility] 02/12/2003 11:3 7 EDT 02/12/2003 16:43 EDT Leida Cerda PA-C CHEMISTRY & BLOOD G ORDERABLES Final Result Performing Organization Address [facility] de Phone Number [facility] [address] [place] [address] * (ABNORMAL) COMPREHENSIVE METABOLIC PANEL (CMP) (02/12/2003 11:37 EDT) [facility] Potassium 4.6 3.5 - 5.0 mEq/L [facility] [...] G ORDERABLES Final Result Performing Organization Address [facility] Co de Phone Number [facility] [address] [place] [address] * (ABNORMAL) HEMAGRAM (02/12/2003 11:37 EDT) WBC [...] 11.7 - 14.6 % [facility] 02/12/2003 11:3 7 EDT 02/12/2003 16:43 EDT us Leida Cerda PA-C HEMATOLOGY & PF4 OR DERABLES Final Result Performing Organization Address [facility] Co de Phone Number [facility] [address] [place] [address] documented in this encounter Visit Diagnoses Not on filedocumented in this encounter Care Teams Edge Polisher Relationship Specialty Start Date End Date Shannan Vieyra MD PCP - General 04/08/09 03/15/19 documented as of this encounter
--- OUTSIDE RECORDS SUMMARY | 2024-10-18 21:55 | XMS_ITS | Encounter Summary ---
Author Organization [facility] Address [address] [place] [address] Care Team Providers Care Rv Repairer Name Role Phone Unavailable Primary Care Provider Unavailabl e Encounter Details Date Type Department Care Team (Latest Contact Info) Description 04/02/2003 16:[address] [facility] - Other [address] [place] [address] Shannan Winter MD Discharge Disposition: Auto Discharge [...] ? DORIS KERR ? Accession #: ? [id number] : ? 1980 (Age: 23) ??F ?Collect [...] ORDERABLES Final Res ult [facility] [address] [place] [address] documented in this encounter Visit Diagnoses Not on filedocumented in this encounter
--- OUTSIDE RECORDS SUMMARY | 2024-10-18 21:55 | XMS_ITS | Encounter Summary ---
Author Organization [facility] Address [address] [place] [address] Care Team Providers Care Pipe Stem Repairer Name Role Phone Shannan Vieyra MD Primary Care Provider Unavail able Encounter Details Date Type Department Care Team (Late st Contact Info) Description 02/19/2003 Results Only [facility] Medicine - [address] [address] Leida Cerda PA-C 402 [facility] [address] [place], [place] [address] Social History Tobacco Use Types Packs/Day Years [...] G ORDERABLES Final Result Performing Organization Address City/[facility] Co de Phone Number [facility] [address] [place] [address] * (ABNORMAL) T4 FREE (02/19/2003 10:14 EDT) Free T4 2.9(H) 0.8 - 1.8 ng/dl [facility] 02/19/2003 10:1 4 EDT 02/19/2003 16:51 EDT Leida Cerda PA-C CHEMISTRY & BLOOD G ORDERABLES Final Result Performing Organization Address [facility] de Phone Number [facility] [address] [place] [address] documented in this encounter Visit Diagnoses Not on filedocumented in this encounter Care Teams Pipe Stem Repairer Relationship Specialty Start Date End Date Shannan Vieyra MD PCP - General 04/08/09 03/15/19 documented as of this encounter
--- OUTSIDE RECORDS SUMMARY | 2024-10-18 21:55 | XMS_ITS | Encounter Summary ---
Author Organization [facility] Address [address] [place] [address] Care Team Providers Care Geospatial Imagery Intelligence Analyst Name Role Phone Shannan Vieyra MD Primary Care Provider Unavail able Encounter Details Date Type Department Care Team (Late st Contact Info) Description 02/08/2004 Office Visit [facility] - Maple conversion [address] [place] [address] Adriana August, WELL DRILLER HELPER [address] [place] [address] Social History Tobacco Use Types Packs/Day Years [...] fever, chills and nausea. 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 Pt seen at [facility] 02/08/04, dx: pyelonephritis. Pt on Cipro. Culture [...] --1708 Sylvia Krishna R.N. (Urine culture sent). --175 Sylvia Krishna R.N. DISPOSITION / DISCHARGE Condition [...] on filedocumented in this encounter Care Teams Geospatial Imagery Intelligence Analyst Relationship Specialty Start Date End Date Shannan Vieyra MD PCP - General 04/08/09 03/15/19 documented as of this encounter
--- OUTSIDE RECORDS SUMMARY | 2024-10-18 21:55 | XMS_ITS | Encounter Summary ---
Author Organization [facility] Address [address] [place] [address] Care Team Providers Care Crate Opener Name Role Phone Unavailable Primary Care Provider Unavailabl e Encounter Details Date Type Department Care Team (Late st Contact Info) Description 02/12/2003 14:53 EDT Hospital Encounter [facility] - Other [address] [place] [address] Leida Cerda PA-C [address] [place] [address] [address] [place] [address] Social History Tobacco Use Types Packs/Day Years Used Date Smoking Tobacco: Never Smokeless Tobacco: Never Alcohol Use Standard Drinks/Week Comments No 0 (1 standard drink = 0.6 oz pur e alcohol) [facility] Utilities Answer Date Recorded In the past 12 months has [employer], gas, oil, or water company threatened [...]
--- OUTSIDE RECORDS SUMMARY | 2024-10-18 21:55 | XMS_ITS | Encounter Summary ---
Author Organization [facility] Address [address] [place] [address] Care Team Providers Care Professional Organizer Name Role Phone Unavailable Primary Care Provider Unavailabl e Encounter Details Date Type Department Care Team (Latest Contact Info) Description 11/13/2001 7:38 EST - 11/13/2001 11:59 EST Hospital Encounter [facility] [place] [address] Emergency, Default, MD Discharge Disposition: Home or [...]
--- OUTSIDE RECORDS SUMMARY | 2024-10-18 21:55 | XMS_ITS | Encounter Summary ---
Author Organization [facility] Address [address] [place] [address] Care Team Providers Care Fagot Maker Name Role Phone Shannan Vieyra MD Primary Care Provider Unavail able Encounter Details Date Type Department Care Team (Late st Contact Info) Description 11/13/2003 Results Only [facility] - [place] [id number] [place], [place] [address] Leida Cerda PA-C [address] [facility] [address] [place], [place] [address] Social History Tobacco Use Types Packs/Day Years [...] SPECIES [facility] Report Status Final [id number] [facility] 11/13/2003 12:1 8 EST 11/13/2003 16:52 EST Narrative Organism Antibiotic Method Susceptibility Greater than 100,000 cfu/mlenterococcus species Ampicillin SUSCEPTIBILITY (SAÚL) 0.5 Susceptible Susceptible Greater than 100,000 cfu/mlenterococcus species Nitrofurantoin SUSCEPTIBILITY (SAÚL) <=32 Susceptible Susceptible Greater than 100,000 cfu/mlenterococcus species Ciprofloxacin SUSCEPTIBILITY (SAÚL) 1 Susceptible Susceptible Leida Cerda PA-C MICROBIOLOGY - GENE RAL ORDERABLES Final Result Performing Organization Address [facility] Co de Phone Number [facility] [address] [place] [address] * PHARYNGITIS CULTURE (11/13/2003 12:18 EST) Specimen Description Throat [facility] Result NO GROUP A BETA STREPTOCOCCI ISOLATED [facility] Report Status Final [id number] [facility] 11/13/2003 12:1 8 EST 11/13/2003 16:41 EST Leida Cerda PA-C MICROBIOLOGY - GENE RAL ORDERABLES Final Result Performing Organization Address [facility] de Phone Number [facility] [address] [place] [address] * (ABNORMAL) HEMAGRAM AND DIFFERENTIAL (11/13/2003 12:18 [...] ORDERABLES Final Result [facility] [address] [place] [address] documented in this encounter Visit Diagnoses Not on filedocumented in this encounter Care Teams Fagot Maker Relationship Specialty Start Date End Date Shannan Vieyra MD PCP - General 04/08/09 03/15/19 documented as of this encounter
--- OUTSIDE RECORDS SUMMARY | 2024-10-18 21:55 | XMS_ITS | Encounter Summary ---
Author Organization [facility] Address [address] [place] [address] Care Team Providers Care Seed Cleaning Manager Name Role Phone Unavailable Primary Care Provider Unavailabl e Encounter Details Date Type Department Care Team (Latest Contact Info) Description 03/07/2003 8:25 EDT - 03/07/2003 11:59 EDT Hospital Encounter [facility] [address] [place] [address] Angelo Clemons MD [address] [place] [phone] Discharge Disposition: Auto Discharge Social History [...]
--- OUTSIDE RECORDS SUMMARY | 2024-10-18 21:55 | XMS_ITS | Encounter Summary ---
Author Organization [facility] Address [address] [place] [address] Care Team Providers Care Livestock Caretaker Name Role Phone Unavailable Primary Care Provider Unavailabl e Encounter Details Date Type Department Care Team (Late st Contact Info) Description 11/13/2003 14:05 [facility] Hospital Encounter [facility] - Other [address] [place] [address] Leida Cerda PA-C [address] [place] [address] [address] [place] [address] Social History Tobacco Use Types Packs/Day Years Used Date Smoking Tobacco: Never Smokeless Tobacco: Never Alcohol Use Standard Drinks/Week Comments No 0 (1 standard drink = 0.6 oz pur e alcohol) [facility] Utilities Answer Date Recorded In the past 12 months has [facility] electric, gas, oil, or water company threatened [...]
--- OUTSIDE RECORDS SUMMARY | 2024-10-18 21:55 | XMS_ITS | Encounter Summary ---
Author Organization [facility] Address [address] [place] [address] Care Team Providers Care Horse Breeder Name Role Phone Unavailable Primary Care Provider Unavailabl e Encounter Details Date Type Department Care Team (Late st Contact Info) Description 09/16/2003 15:53 EST Hospital Encounter [facility] - [facility] [address] [place] [address] Pete Richey MD Social History Tobacco Use [...]
--- OUTSIDE RECORDS SUMMARY | 2024-10-18 21:55 | XMS_ITS | Encounter Summary ---
Author Organization [facility] Address [address] [place] [address] Care Team Providers Care Shuttle Operator Name Role Phone Unavailable Primary Care Provider Unavailabl e Encounter Details Date Type Department Care Team (Latest Contact Info) Description 12/31/2000 23:46 EST - 01/01/2001 11:59 EST Hospital Encounter [facility] Emergency Department - [address] [address] Emergency, Default, MD Discharge Disposition: Home or [...] URINE (01/01/2001 8:11 EST) Specimen Description Urine [facility] Result Greater than 100,000 CFU/ml ESCHERICHIA COLI [facility] Report Status Final [id number] [facility] 01/01/2001 8:11 EST 01/01/2001 [...] ELLEN LAL Final Result Performing Organization Address City/State/[facility] Co de Phone Number [facility] [address] [place] [address] * LIVER FUNCTION TESTS (01/01/2001 0:58 EST) [...] ORDER ENDY Final Result Performing Organization Address [facility] de Phone Number [facility] [address] [place] [address] * LIPASE (01/01/2001 0:58 EST) Lipase 70 0 - 210 U/L [facility] 01/01/2001 0:58 EST 01/01/2001 0:58 EST us Default Emergency MD CHEMISTRY & BLOOD GAS ORDER ENDY Final Result Performing Organization Address [facility] de Phone Number [facility] [address] [place] [address] * HEMAGRAM & DIFF (01/01/2001 0:58 EST) [...] SQ LOAD Final Result Performing Organization Address [facility] de Phone Number [facility] [address] [place] [address] * (ABNORMAL) URINE MICROSCOPIC ONLY (01/01/2001 0:38 [...] URINALYSIS ORDERABLES Final Result Performing Organization Address [facility] de Phone Number [facility] [address] [place] [address] documented in this encounter Visit Diagnoses Not on filedocumented in this encounter
--- OUTSIDE RECORDS SUMMARY | 2024-10-18 21:55 | XMS_ITS | Encounter Summary ---
Author Organization [facility] Address [address] [place] [address] Care Team Providers Care Lan Engineer Name Role Phone Unavailable Primary Care Provider Unavailabl e Encounter Details Date Type Department Care Team (Latest Contact Info) Description 02/08/2004 16:01 EDT Hospital Encounter [address] [address] Adriana August, LEI MAKER [address] [place] [address] Discharge Disposition: Auto Discharge Social History Tobacco [...]
--- OUTSIDE RECORDS SUMMARY | 2024-10-18 21:55 | XMS_ITS | Encounter Summary ---
Author Organization [facility] Address [address] [place] [address] Care Team Providers Care Platform Consultant Name Role Phone Shannan Vieyra MD Primary Care Provider Unavail able Encounter Details Date Type Department Care Team (Late st Contact Info) Description 09/16/2003 Results Only [facility] - [place] conversion [address] [place] [address] Germain Mason MD [address] [place] [address] [address] [phone] Social History Tobacco Use Types Packs/Day Years [...] ORDERABL ES Final Result Performing Organization Address City/[facility] Co de Phone Number [facility] [address] [place] [address] * (ABNORMAL) T3, TOTAL (09/16/2003 15:59 EST) T3, Total 551(H) 60 - 181 ng/dl [facility] 09/16/2003 15:5 9 EST 09/16/2003 16:01 EST Germain Mason MD CHEMISTRY & BLOOD GAS ORDERABL ES Final Result Performing Organization Address [facility] de Phone Number [facility] [address] [place] [address] * (ABNORMAL) T4 FREE (09/16/2003 15:59 EST) Free T4 3.9(H) 0.8 - 1.8 ng/dl [facility] 09/16/2003 15:5 9 EST 09/16/2003 16:01 EST Germain Mason MD CHEMISTRY & BLOOD GAS ORDERABL ES Final Result Performing Organization Address [facility] de Phone Number [facility] [address] [place] [address] documented in this encounter Visit Diagnoses Not on filedocumented in this encounter Care Teams Platform Consultant Relationship Specialty Start Date End Date Shannan Vieyra MD PCP - General 04/08/09 03/15/19 documented as of this encounter
--- OUTSIDE RECORDS SUMMARY | 2024-10-18 21:55 | XMS_ITS | Encounter Summary ---
Author Organization [facility] Address [address] [place] [address] Care Team Providers Care Community Relations Rep Name Role Phone Unavailable Primary Care Provider Unavailabl e Encounter Details Date Type Department Care Team (Late st Contact Info) Description 01/12/2001 9:06 EDT Hospital Encounter [facility] - Other [address] [place] [address] Audrey Rausch MD [address] [place] [address], [facility] [address] [place] [phone] Unknown, Provider, Social History Tobacco Use Types Packs/Day Years Used Date Smoking Tobacco: Never Smokeless Tobacco: Never Alcohol Use Standard Drinks/Week Comments No 0 (1 standard drink = 0.6 oz pur e alcohol) [facility] Utilities Answer Date Recorded In the past [address] [facility] [employer], gas, oil, or water [employer] threatened to shut off services in your [...] ? DORIS KERR ? Accession #: ? [id number] : ? 1980 (Age: 20) ??F ?Collect [...] PATHOLOGY ORDERABLES Final Result [facility] [address] [place] [address] documented in this encounter Visit Diagnoses Not on filedocumented in this encounter
--- OUTSIDE RECORDS SUMMARY | 2024-10-18 21:55 | XMS_ITS | Encounter Summary ---
Author Organization [facility] Address [address] [place] [address] Care Team Providers Care Dipper And Drier Name Role Phone Unavailable Primary Care Provider Unavailabl e Encounter Details Date Type Department Care Team (Late st Contact Info) Description 02/19/2003 12:54 EDT Hospital Encounter [facility] - Other [address] [place] [address] Leida Cerda PA-C [address] [place] [address] [address] [place] [address] Discharge Disposition: Auto Discharge Social History Tobacco [...]
--- OUTSIDE RECORDS SUMMARY | 2024-10-18 21:55 | XMS_ITS | Encounter Summary ---
Author Organization [facility] Address [address] [place] [address] Care Team Providers Care Early Childhood Special Educator Name Role Phone Shannan Vieyra MD Primary Care Provider Unavail able Encounter Details Date Type Department Care Team (Late st Contact Info) Description 02/08/2004 Results Only [facility] - Maple conversion [address] [place] [address] Eliza Sue MD [address] [place] [phone] Social History Tobacco Use Types Packs/Day Years [...] growth [facility] Report Status Final [id number] [facility] 02/08/2004 17:4 9 EDT 02/08/2004 19:32 EDT Adriana August NP MICROBIOLOGY - GENERAL ORDERA BLES Final Result Performing Organization Address [facility] Co de Phone Number [facility] [address] [place] [address] * BACTERIAL CULTURE, URINE (02/08/2004 16:55 EDT) Specimen Description Urine [facility] Result Ordered in error Credit Issued Duplicate order see URC [id number] [facility] Report Status Final [id number] [facility] 02/08/2004 16:5 5 EDT 02/08/2004 19:20 EDT Adriana August NP MICROBIOLOGY - GENERAL ORDERA BLES Final Result Performing Organization Address [facility] de Phone Number [facility] [address] [place] [address] * (ABNORMAL) URINE MICROSCOPIC ONLY (02/08/2004 16:55 [...] ORDERABLES Nellie l Result Performing Organization Address City/[facility]/ZIP Co de Phone Number [facility] [address] [place] [address] documented in this encounter Visit Diagnoses Not on filedocumented in this encounter Care Teams Early Childhood Special Educator Relationship Specialty Start Date End Date Shannan Vieyra MD PCP - General 04/08/09 03/15/19 documented as of this encounter
--- OUTSIDE RECORDS SUMMARY | 2024-10-18 21:55 | XMS_ITS | Encounter Summary ---
Author Organization [facility] Address [address] [place] [address] Care Team Providers Care Color Print Inspector Name Role Phone Unavailable Primary Care Provider Unavailabl e Encounter Details Date Type Department Care Team (Late st Contact Info) Description 01/17/2002 16:53 EDT Hospital Encounter [facility] [address] [place] [address] Shannan Vieyra MD Social History Tobacco Use Types Packs/Day Years Used Date Smoking Tobacco: Never Smokeless Tobacco: Never Alcohol Use Standard Drinks/Week Comments No 0 (1 standard drink = 0.6 oz pur e alcohol) [facility] Utilities Answer Date Recorded In the past 12 months has [employer], gas, oil, or water company threatened [...]
--- OUTSIDE RECORDS SUMMARY | 2024-10-18 21:55 | XMS_ITS | Encounter Summary ---
Author Organization [facility] Address [address] [place] [address] Care Team Providers Care Dragline Operator Name Role Phone Unavailable Primary Care Provider Unavailabl e Encounter Details Date Type Department Care Team (Latest Contact Info) Description 10/05/2000 16:08 EST Hospital Encounter [address] [address] Wyatt Sousa PA Discharge Disposition: Auto Discharge [...]
--- OUTSIDE RECORDS SUMMARY | 2024-10-18 21:55 | XMS_ITS | Encounter Summary ---
Author Organization [facility] Address [address] [place] [address] Care Team Providers Care Mold Loft Worker Name Role Phone Unavailable Primary Care Provider Unavailabl e Encounter Details Date Type Department Care Team (Latest Contact Info) Description 10/02/2000 13:59 EST Hospital Encounter [facility] Emergency Department - [facility] [address] [place] [address] Emergency, MD Keli Discharge Disposition: Home or [...] FINDINGS: Negative for fracture or dislocation. /formerly [facility] Efe Guerrier MD IMG DIAGNOSTIC IMAGING ORDE HALI Final Result documented in this encounter Visit Diagnoses Not on filedocumented in this encounter
--- OUTSIDE RECORDS SUMMARY | 2024-10-18 21:55 | XMS_ITS | Encounter Summary ---
Author Organization [facility] Address [address] [place] [address] Care Team Providers Care Assistant Professor Of Anthropology Name Role Phone Unavailable Primary Care Provider Unavailabl e Encounter Details Date Type Department Care Team (Latest Contact Info) Description 03/06/2003 11:09 EDT - 03/06/2003 11:59 EDT Hospital Encounter [facility] [address] [place] [address] Angelo Clemons MD [address] [place] [phone] Discharge Disposition: Auto Discharge Social History Tobacco [...] 03-07-03 T: 03-08-03 Angelo Clemons MD [facility] [place] ORDERABLES Final Result documented in this encounter Visit Diagnoses Not on filedocumented in this encounter
--- OUTSIDE RECORDS SUMMARY | 2024-10-18 21:55 | XMS_ITS | Encounter Summary ---
Author Organization [facility] Address [address] [place] [address] Care Team Providers Care Video Library Assistant Name Role Phone Unavailable Primary Care Provider Unavailabl e Encounter Details Date Type Department Care Team (Latest Contact Info) Description 11/29/2000 15:32 EST Hospital Encounter [address] [address] Deana Gutierrez MD [address] [place] [phone] Discharge Disposition: Auto Discharge Social History Tobacco [...]
--- OUTSIDE RECORDS SUMMARY | 2024-10-18 21:56 | XMS_ITS | Encounter Summary ---
Author Organization [facility] Address [address] [place] [address] Care Team Providers Care Tunnel Form Placing Supervisor Name Role Phone Unavailable Primary Care Provider Unavailabl e Encounter Details Date Type Department Care Team (Latest Contact Info) Description 05/29/2000 2:30 EDT - 06/01/2000 11:59 EDT Hospital Encounter [facility] [address] [place] [address] Ashwin Resnediz MD [address] [place] [address] Shannan Vieyra MD Discharge Disposition: Home or [...] Performing Organization Address [facility] Co de Phone Number [facility] [address] [place] [address] * (ABNORMAL) CREATININE (06/01/2000 6:00 EDT) Creatinine 0.6(L) 0.7 - 1.5 mg/dl [facility] 06/01/2000 6:00 EDT 06/01/2000 7:29 EDT us Shannan Vieyra MD HISTORICAL LAB FOR SQ LOAD Fin al Result Performing Organization Address City/[facility] Co de Phone Number [facility] [address] [place] [address] * (ABNORMAL) HEMAGRAM & DIFF (06/01/2000 6:00 [...] [facility] % Bands 1 % [facility] Lymphocytes 42 15.0 - 46.8 [...] Fin al Result [facility] [address] [place] [address] * (ABNORMAL) BUN (06/01/2000 6:00 EDT) BUN 3(L) 10 - 26 mg/dl [facility] 06/01/2000 6:00 EDT 06/01/2000 7:29 EDT Shannan Vieyra MD CHEMISTRY & BLOOD GAS ORDERABL ES Final Result Performing Organization Address [facility] Phone Number [facility] [address] [place] [address] * (ABNORMAL) ELECTROLYTES (05/31/2000 6:15 EDT) Sodium 137 136 - 145 mEq/L [facility] Potassium 3.6 3.5 - 5.0 mEq/L [facility] Chloride 106 96 - 110 mEq/L [facility] CO2 23(L) 24 - 30 mEq/L [facility] 05/31/2000 6:15 EDT 05/31/2000 7:20 EDT Shannan Vieyra MD CHEMISTRY & BLOOD GAS ORDERABL ES Final Result Performing Organization Address [facility] Phone Number [facility] [address] [place] [address] * (ABNORMAL) CREATININE (05/31/2000 6:15 EDT) Creatinine 0.6(L) 0.7 - 1.5 mg/dl [facility] 05/31/2000 6:15 EDT 05/31/2000 7:20 EDT Shannan Vieyra MD HISTORICAL LAB FOR SQ LOAD Fin al Result Performing Organization Address [facility] Phone Number [facility] [address] [place] [address] * (ABNORMAL) HEMAGRAM & DIFF (05/31/2000 6:15 [...] Fin al Result [facility] [address] [place] [address] * (ABNORMAL) BUN (05/31/2000 6:15 EDT) BUN 3(L) 10 - 26 mg/dl [facility] 05/31/2000 6:15 EDT 05/31/2000 7:20 EDT Shannan Vieyra MD CHEMISTRY & BLOOD GAS ORDERABL ES Final Result [facility] [address] [place] [address] * (ABNORMAL) ELECTROLYTES (05/30/2000 6:25 EDT) Sodium [...] Performing Organization Address [facility] Co de Phone Number [facility] [address] [place] [address] * (ABNORMAL) CREATININE (05/30/2000 6:25 EDT) Creatinine 0.6(L) 0.7 - 1.5 mg/dl [facility] 05/30/2000 6:25 EDT 05/30/2000 7:48 EDT us Shannan Vieyra MD HISTORICAL LAB FOR SQ LOAD Fin al Result Performing Organization Address [facility] de Phone Number [facility] [address] [place] [address] * (ABNORMAL) HEMAGRAM & DIFF (05/30/2000 6:25 [...] LOAD Fin al Result Performing Organization Address City/[facility] Co de Phone Number [facility] [address] [place] [address] * (ABNORMAL) BUN (05/30/2000 6:25 EDT) BUN 2(L) 10 - 26 mg/dl [facility] 05/30/2000 6:25 EDT 05/30/2000 7:48 EDT Shannan Vieyra MD CHEMISTRY & BLOOD GAS ORDERABL ES Final Result Performing Organization Address City/[facility] Co de Phone Number [facility] [address] [place] [address] * (ABNORMAL) URINE MICROSCOPIC (05/30/2000 0:45 EDT) [...] ORDERABLES Final Re sult Performing Organization Address [facility] de Phone Number [facility] [address] [place] [address] * (ABNORMAL) URINALYSIS (05/30/2000 0:45 EDT) Color, UA Yellow [facility] Clarity, UA Clear [facility] Glucose, UA Norm NORM [facility] Bilirubin, UA Neg NEG [facility] Ketones, UA Neg NEG [facility] Specific [place], Urine 1.005 1.005 - 1.02 [facility] [...] ORDERABLES Final Re sult Performing Organization Address [facility] Co de Phone Number [facility] [address] [place] [address] * BACTERIAL CULTURE, BLOOD (05/30/2000 0:40 EDT) Specimen Description Blood Left Arm [facility] Result No growth [facility] Report Status Final [facility] 05/30/2000 0:40 EDT 05/30/2000 1:00 EDT us Shannan Vieyra MD MICROBIOLOGY - GENERAL ORDERAB LES Final Result Performing Organization Address City/[facility]/ZIP Co de Phone Number [facility] [address] [place] [address] * BACTERIAL CULTURE, BLOOD (05/30/2000 0:30 EDT) Specimen Description Blood Right Arm [facility] Result No growth [facility] Report Status Final [facility] 05/30/2000 0:30 EDT 05/30/2000 1:00 EDT us Shannan Vieyra MD MICROBIOLOGY - GENERAL ORDERAB LES Final Result Performing Organization Address [facility] Co de Phone Number [facility] [address] [place] [address] * TEST, URINE (05/29/2000 14:10 EDT) Result-Pregnanc y Test, Ur Neg [facility] Specific [place] 1.005 [facility] 05/29/2000 14:1 0 EDT 05/29/2000 14:10 EDT us Shannan Vieyra MD URINALYSIS ORDERABLES Final Re sult Performing Organization Address [facility] Co de Phone Number [facility] [address] [place] [address] * BACTERIAL CULTURE, URINE (05/29/2000 14:09 EDT) Specimen Description Urine [facility] Result No growth [facility] Report Status Final [id number] [facility] 05/29/2000 14:0 9 EDT 05/29/2000 14:09 EDT us Shannan Vieyra MD MICROBIOLOGY - GENERAL ORDERAB LES Final Result Performing Organization Address [facility] Co de Phone Number [facility] [address] [place] [address] * (ABNORMAL) URINE MICROSCOPIC (05/29/2000 14:09 EDT) [...] ORDERABLES Final Re sult Performing Organization Address [facility] de Phone Number [facility] [address] [place] [address] * (ABNORMAL) URINALYSIS (05/29/2000 14:09 EDT) Color, UA Yellow [facility] Clarity, UA Clear [facility] Glucose, UA Norm NORM [facility] Bilirubin, UA Neg NEG [facility] Ketones, UA Neg NEG [facility] Specific [place], Urine 1.005 1.005 - 1.02 [facility] [...] ORDERABLES Final Re sult [facility] [address] [place] [address] * CT PELVIS WO/CONTRAST (05/29/2000 9:09 EDT) [...] T: 05-31-00 /am us Shannan Vieyra MD [facility] ORDERABLES Final Result * CT ABDOMEN [...] ES Final Result [facility] [address] [place] [address] * (ABNORMAL) CREATININE (05/29/2000 6:25 EDT) Creatinine 0.6(L) 0.7 - 1.5 mg/dl [facility] 05/29/2000 6:25 EDT 05/29/2000 7:35 EDT us Shannan Vieyra MD HISTORICAL LAB FOR SQ LOAD Fin al Result Performing Organization Address [facility] Co de Phone Number [facility] [address] [place] [address] * (ABNORMAL) HEMAGRAM & DIFF (05/29/2000 6:25 EDT) Pathologist [facility] WBC 7.84 4.0 - 12.4 K/cmm [facility] [...] LOAD Fin al Result Performing Organization Address City/[facility] Co de Phone Number [facility] [address] [place] [address] * (ABNORMAL) BUN (05/29/2000 6:25 EDT) BUN 5(L) 10 - 26 mg/dl [facility] 05/29/2000 6:25 EDT 05/29/2000 7:35 EDT us Shannan Vieyra MD CHEMISTRY & BLOOD GAS ORDERABL ES Final Result Performing Organization Address [facility] Co de Phone Number [facility] [address] [place] [address] * BACTERIAL CULTURE, BLOOD (05/29/2000 2:15 EDT) Specimen Description Blood Right Arm [facility] Result No growth [facility] Report Status Final [id number] [facility] 05/29/2000 2:15 EDT 05/29/2000 8:57 EDT us Shannan Vieyra MD MICROBIOLOGY - GENERAL ORDERAB LES Final Result Performing Organization Address [facility] Co de Phone Number [facility] [address] [place] [address] documented in this encounter Visit Diagnoses Not on filedocumented in this encounter
--- OUTSIDE RECORDS SUMMARY | 2024-10-18 21:56 | XMS_ITS | Encounter Summary ---
Author Organization [facility] Address [address] [place] [address] Care Team Providers Care Jack Frame Tender Name Role Phone Unavailable Primary Care Provider Unavailabl e Encounter Details Date Type Department Care Team (Late st Contact Info) Description 01/20/2000 20:43 EDT Hospital Encounter [facility] - Other [address] [place] [address] Audrey Rausch MD [address] [place] [address], [facility] [address] [place] [phone] Unknown, Provider, Social History Tobacco Use Types Packs/Day Years Used Date Smoking Tobacco: Never Smokeless Tobacco: Never Alcohol Use Standard Drinks/Week Comments No 0 (1 standard drink = 0.6 oz pur e alcohol) [facility] Utilities Answer Date Recorded In the past 12 months has [facility] [employer], gas, oil, or water [employer] threatened to shut off services in your [...] ? DORIS KERR ? Accession #: ? [id number] ? : ? 1980 (Age: 19) ??F [...] PATHOLOGY ORDERABLES Final Result Performing Organization Address City/State/[facility] Co de Phone Number [facility] [address] [place] [address] documented in this encounter Visit Diagnoses Not on filedocumented in this encounter
--- OUTSIDE RECORDS SUMMARY | 2024-10-18 21:56 | XMS_ITS | Encounter Summary ---
Author Organization [facility] Address [address] [place] [address] Care Team Providers Care Project Account Manager Name Role Phone Unavailable Primary Care Provider Unavailabl e Encounter Details Date Type Department Care Team (Latest Contact Info) Description 04/10/2000 5:00 EDT - 04/10/2000 11:59 EDT Hospital Encounter [facility] [place] [address] Emergency, Default, MD Discharge Disposition: Home or [...]
--- OUTSIDE RECORDS SUMMARY | 2024-10-18 21:56 | XMS_ITS | Encounter Summary ---
Author Organization [facility] Address [address] [place] [address] Care Team Providers Care Intelligence Chief Name Role Phone Unavailable Primary Care Provider Unavailabl e Encounter Details Date Type Department Care Team (Late st Contact Info) Description 05/19/2000 22:23 EDT Hospital Encounter [facility] - Other [address] [place] [address] Audrey Rausch MD [address] [place] [address], [facility] [address] [place] [phone] Unknown, Provider, Social History Tobacco Use Types Packs/Day Years Used Date Smoking Tobacco: Never Smokeless Tobacco: Never Alcohol Use Standard Drinks/Week Comments No 0 (1 standard drink = 0.6 oz pur e alcohol) [facility] Utilities Answer Date Recorded In the past 12 months has [facility] [employer], gas, oil, or water [employer] threatened to shut off services in your [...] ? DORIS KERR ? Accession #: ? [id number] : ? 1980 (Age: 20) ??F ?Collect [...] electronically signed by: ? SHAYE LYNN MD [facility] ? Report Date: ??06/01/2000 17:21 End of Report [facility] 05/19/2000 05/20/2000 us Audrey Rausch MD PATHOLOGY ORDERABLES Final Result [facility] [address] [place] [address] documented in this encounter Visit Diagnoses Not on filedocumented in this encounter
--- OUTSIDE RECORDS SUMMARY | 2024-10-18 21:56 | XMS_ITS | Encounter Summary ---
Author Organization [facility] Address [address] [place] [address] Care Team Providers Care Makeup Artist Name Role Phone Unavailable Primary Care Provider Unavailabl e Encounter Details Date Type Department Care Team (Latest Contact Info) Description 08/09/1999 3:14 EST - 08/09/1999 11:59 EST Hospital Encounter [facility] [place] [address] Emergency, Default, MD Discharge Disposition: Home or [...]
--- OUTSIDE RECORDS SUMMARY | 2024-10-18 21:56 | XMS_ITS | Encounter Summary ---
Author Organization [facility] Address [address] [place] [address] Care Team Providers Care Application Spec Name Role Phone Unavailable Primary Care Provider Unavailabl e Encounter Details Date Type Department Care Team (Latest Contact Info) Description 05/28/2000 14:33 EDT Hospital Encounter [facility] Emergency [facility] - [facility] [address] [place], [place] [address] Emergency, Default, MD Discharge Disposition: Home or [...] growth [facility] Report Status Final [id number] [facility] 05/28/2000 15:1 6 EDT 05/28/2000 15:16 EDT us Default Emergency MICROBIOLOGY - GENERAL ELLEN LAL Final Result Performing Organization Address City/[facility]/ZIP Co de Phone Number [facility] [address] [place] [address] * ELECTROLYTES (05/28/2000 14:47 EDT) Sodium 137 136 - 145 mEq/L [facility] Potassium 3.9 3.5 - 5.0 mEq/L [facility] Chloride 100 96 - 110 mEq/L [facility] CO2 24 24 - 30 mEq/L [facility] 05/28/2000 14:4 7 EDT 05/28/2000 14:49 EDT us Default Emergency CHEMISTRY & BLOOD GAS ORDER ENDY Final Result Performing Organization Address City/[facility]/ZIP Co de Phone Number [facility] [address] [place] [address] * HOLD (05/28/2000 14:47 EDT) Hold Sample for coagulation will be discarded after 4 hours [facility] 05/28/2000 14:4 7 EDT 05/28/2000 14:49 EDT us Default Emergency CHEMISTRY & BLOOD GAS ORDER ENDY Final Result Performing Organization Address City/[facility]/ZIP Co de Phone Number [facility] [address] [place] [address] * (ABNORMAL) CREATININE (05/28/2000 14:47 EDT) Creatinine 0.6(L) 0.7 - 1.5 mg/dl [facility] 05/28/2000 14:4 7 EDT 05/28/2000 14:49 EDT us Default Emergency HISTORICAL LAB FOR SQ LOAD Final Result Performing Organization Address [facility] Co de Phone Number [facility] [address] [place] [address] * (ABNORMAL) HEMAGRAM & DIFF (05/28/2000 14:47 [...] SQ LOAD Final Result Performing Organization Address [facility] de Phone Number [facility] [address] [place] [address] * (ABNORMAL) BUN (05/28/2000 14:47 EDT) BUN 7(L) 10 - 26 mg/dl [facility] 05/28/2000 14:4 7 EDT 05/28/2000 14:49 EDT us Default Emergency CHEMISTRY & BLOOD GAS ORDER ENDY Final Result Performing Organization Address [facility] de Phone Number [facility] [address] [place] [address] * GRAM SMEAR (05/28/2000 14:44 EDT) Specimen Description Urine [facility] Gram Smear Result Mod Polys >50 Gram negative bacilli , per oil immersion field [facility] Report Status Final [id number] [facility] 05/28/2000 14:4 4 EDT 05/29/2000 9:38 EDT us Shannan Vieyra MD MICROBIOLOGY - GENERAL ORDERAB LES Final Result Performing Organization Address [facility] Co de Phone Number [facility] [address] [place] [address] * BACTERIAL CULTURE, URINE (05/28/2000 14:44 EDT) Specimen Description Urine [facility] Result Greater than 100,000 CFU/ml ESCHERICHIA COLI 10,000 to 100,000 CFU/ml Mixed gram positive growth [facility] Report Status Final [id number] [facility] 05/28/2000 14:4 4 EDT [...] than 100,000 cfu/ml escherichia coli Piperacillin SUSCEPTIBILITY (SÚAL) >=256 Resistant Greater than 100,000 cfu/ml escherichia coli Ciprofloxacin SUSCEPTIBILITY (SAÚL) <=0.5 Susceptible us Default Emergency MD MICROBIOLOGY - GENERAL ORDE RABLES Final Result Performing Organization Address City/[facility] Co de Phone Number [facility] [address] [place] [address] * TEST, URINE (05/28/2000 14:44 EDT) Result-Pregnanc y Test, Ur Neg [facility] Specific [place] 1.015 [facility] 05/28/2000 14:4 4 EDT 05/28/2000 14:44 EDT us Default Emergency MD URINALYSIS ORDERABLES Final Result Performing Organization Address City/[facility] Co de Phone Number [facility] [address] [place] [address] * (ABNORMAL) URINE MICROSCOPIC ONLY (05/28/2000 14:44 [...] URINALYSIS ORDERABLES Final Result [facility] [address] [place] [address] documented in this encounter Visit Diagnoses Not on filedocumented in this encounter
--- OUTSIDE RECORDS SUMMARY | 2024-10-18 21:56 | XMS_ITS | Encounter Summary ---
Author Organization [facility] Address [address] [place] [address] Care Team Providers Care Supervisor Filtration Name Role Phone Unavailable Primary Care Provider Unavailabl e Encounter Details Date Type Department Care Team (Late st Contact Info) Description 12/15/1999 9:44 EST Hospital Encounter [facility] - Other [address] [place] [address] Shy Crowe, LINING F[employer]DER [address] [place] [phone] Unknown, Provider, Social History Tobacco Use Types Packs/Day Years Used Date Smoking Tobacco: Never Smokeless Tobacco: Never Alcohol Use Standard Drinks/Week Comments No 0 (1 standard drink = 0.6 oz pur e alcohol) [facility] Utilities Answer Date Recorded In [...] No 10/28/2023 Housing Stability Vital Sign Answer Shaak e Recorded In the last 12 months, [...] ? DORIS KERR ? Accession #: ? [id number] : ? 1980 (Age: 19) ??F ?Collect Date: ? 12/16/1999 Location: ?Receive Date: ? 12/16/1999 Provider: ?SHY BRYANTP Copy to: ?SHY GRIGGS ? Specimen/Source: ?Production Mechanic [employer] Last Menstrual Period: ? GYNECOLOGIC ??CYTOPATHOLOGY ??REPORT Name: DORIS KERR ? [facility] : 1980 ?? 19Y F ?Client ID: ?? SS#: [id number] ? Clinician: SHY RIVERA ?? Location: [facility] ??Copy to: ?? Specimen: ?Production Mechanic [employer] ? Source: Cervix ?Collected: 12/15/99 ? [...] Lenz M.D. ? Report Date: ?? 12/21/1999 HiConversion Archived Tests - Final Diagnosis Text Field: Clinical History : ? Document reviewed and electronically signed by: ? Conversion ? Report Date: ??12/21/1999 00:00 End of Report [facility] 12/16/1999 9:38 EST 12/16/1999 9:39 EST Shy GRIGGS PATHOLOGY ORDERABLES Fin al Result Performing Organization Address City/[facility]/ZIP Co de Phone Number [facility] [address] [place] [address] * CHLAMYDIA TRACHOMATIS PROBE (12/15/1999 18:00 EST) Specimen Description Cervix [facility] Result No Chlamydia trachomatis DNA detected by shovel engineer mediated amplification. [facility] Report Status Final [id number] [facility] 12/15/1999 18:0 0 EST 12/16/1999 9:26 EST Shy GRIGGS HISTORICAL LAB FOR SQ LO AD Final Result Performing Organization Address [facility] de Phone Number [facility] [address] [place] [address] * N.GONORRHOEAE PROBE (12/15/1999 18:00 EST) Specimen Description Cervix [facility] Result No Neisseria gonorrhoeae DNA detected by shovel engineer mediated amplification. [facility] Report Status Final [id number] [facility] 12/15/1999 18:0 0 EST 12/16/1999 9:26 EST Shy GRIGGS HISTORICAL LAB FOR SQ LO AD Final Result Performing Organization Address [facility]/ZIP Co de Phone Number [facility] [address] [place] [address] documented in this encounter Visit Diagnoses Not on filedocumented in this encounter
[2024-10-18 22:49] LABS: TSH (W/Ref FT4) 2.92 uIU/mL (0.36-3.74)
[2024-10-19 18:09] LABS: T3, Total 100 ng/dL (97-169)
== END 2024-10-18 21:47 | disposition home or self-care (01) ==
LOC: NCHCN 21:46
PROVIDERS: PCP Family Medicine; Visit Provider Family Medicine
DX: E03.9 Hypothyroidism, unspecified (principal)
CPT/HCPCS: 84443; 84480

== ENCOUNTER 2025-04-25 14:11 | Outpatient (REF) | payer BC, SELFPAY ==
[2025-04-25 21:30] LABS: TSH 0.40 uIU/mL (0.36-3.74)
== END 2025-04-25 14:12 | disposition home or self-care (01) ==
LOC: NCHCN 14:11
PROVIDERS: PCP Family Medicine; Visit Provider Family Medicine
DX: E03.9 Hypothyroidism, unspecified (principal)
CPT/HCPCS: 84439; 84443

== ENCOUNTER 2025-07-30 11:46 | Outpatient (REF) | payer BC, SELFPAY | END 2025-07-30 11:47 | disposition home or self-care (01) | LOC: NCHCN 11:46 | PROVIDERS: PCP Family Medicine; Visit Provider Family Medicine | DX: N12 Tubulo-interstitial nephritis, not specified as acute or chronic (principal) | CPT/HCPCS: 87086 ==